=== PATIENT | male | born 1960 | race Caucasian/White ===

== ENCOUNTER 2022-12-21 15:55 | Outpatient (OUT) | payer OTHER, SELFPAY ==
[2022-12-21 16:45] LABS: Estimated Average Glucose 206 mg/dL; Glycohemoglobin A1C 8.8 % (4.5-6.2)
== END 2022-12-21 15:56 | disposition home or self-care (01) ==
PROVIDERS: PCP Internal Medicine; Visit Provider Internal Medicine
DX: E11.65 Type 2 diabetes mellitus with hyperglycemia (principal)
CPT/HCPCS: 36415; 83036

== ENCOUNTER 2023-05-24 06:02 | Outpatient (OUT) | payer OTHER, SELFPAY ==
[2023-05-24 07:38] LABS: Microalbumin Urine Random <1.3 mg/dL (<=30.0)
[2023-05-24 08:34] LABS: Basophils Percent Auto 0.4 % (0.2-2.0); Eosinophils Absolute Auto 0.2 10^3/uL (0.0-0.7); Eosinophils Percent Auto 2.2 % (0.9-7.0); Hematocrit 45.5 % (42.0-54.0); Hemoglobin 15.7 g/dL (14.0-18.0); Immature Granulocytes Abs Auto 0.05 10^3/uL (0.00-0.03); Immature Granulocytes Pct Auto 0.6 % (0.0-0.5); Lymphocytes Absolute Auto 2.2 10^3/uL (1.2-3.8); Lymphocytes Percent Auto 28.6 % (20.5-60.0); Mean Corpuscular HGB Conc 34.5 g/dL (29.9-35.2); Mean Corpuscular Hemoglobin 29.8 pg (25.9-34.0); Mean Corpuscular Volume 86.3 fL (80.0-94.0); Mean Platelet Volume 10.3 fL (9.5-13.5); Monocytes Absolute Auto 0.5 10^3/uL (0.3-0.8); Monocytes Percent Auto 6.5 % (1.7-12.0); Neutrophils Absolute Auto 4.8 10^3/uL (1.4-6.5); Neutrophils Percent Auto 61.7 % (43.0-75.0); Platelet Count 255 10^3/uL (150-450); Red Blood Count 5.27 10^6/uL (4.70-6.10); Red Cell Distribution Width 12.4 % (11.0-15.0); White Blood Count 7.7 10^3/uL (4.0-11.0)
[2023-05-24 09:05] LABS: Alanine Aminotransferase 50 U/L (16-63); Albumin Level 3.8 g/dL (3.4-5.0); Alkaline Phosphatase 92 U/L (46-116); Anion Gap 15.3; Aspartate Amino Transferase 17 U/L (15-37); BUN Creatinine Ratio 12.8; Bilirubin Total 0.7 mg/dL (0.2-1.0); Chloride 103 mmol/L (98-107); Chol HDL Ratio 4.4; Cholesterol 188 mg/dL (<=200); Estimated GFR (African America >60 (>=60); Estimated GFR (Non-African Ame >60 (>=60); Globulin 3.8 g/dL; Glucose 195 mg/dL (74-106); HDL Cholesterol 43 mg/dL (40-60); Potassium 4.3 mmol/L (3.5-5.1); Sodium 142 mmol/L (136-145); Total Protein 7.6 g/dL (6.4-8.2); Triglycerides 162 mg/dL (<=150); VLDL CHOLESTEROL 32.4 mg/dL
[2023-05-24 09:15] LABS: Prostate Specific Antigen Scrn 0.47 ng/mL (<=4.00)
[2023-05-24 10:15] LABS: Estimated Average Glucose 186 mg/dL; Glycohemoglobin A1C 8.1 % (4.5-6.2)
== END 2023-05-24 06:03 | disposition home or self-care (01) ==
LOC: LAB 06:04
PROVIDERS: PCP Internal Medicine; Visit Provider Internal Medicine
DX: Z00.00 Encounter for general adult medical examination without abnormal findings (principal)
CPT/HCPCS: 36415; 80053; 80061; 82043; 83036; 85025; G0103

== ENCOUNTER 2023-06-13 09:21 | Outpatient (OUT) | payer OTHER, SELFPAY ==
--- OUTSIDE RECORDS SUMMARY | 2023-06-13 09:25 | XMS_ITS | CCD ---
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 Name Role Phone CHRISTOPHER PEARCE Primary Care Physician [phone] Lino Ansari Attending Unavailable Elan, Lino Goodson Admitting Unavailable Elan, Lino Goodson Referring Unavailable Elan, Lino Goodson Attending Unavailable Elan, Lino Goodson Admitting Unavailable Ansari, Lino Goodson Referring Unavailable Ansari, Lino Goodson Referring Unavailable Ansari, Lino Goodson Attending Unavailable Ansari, Lino Goodson Admitting Unavailable Ansari, Lino Goodson Attending Unavailable HAFSA, LEYDI Attending Unavailable HAFSA, LEYDI Admitting Unavailable BRYCE, DR SNOWDEN Primary Care Unavailable HAFSA, LEYDI Consulting Unavailable ELIZ, BRIA Consulting Unavailable BRYCE, DR SNOWDEN Primary Care Unavailable BRYCE, DR SNOWDEN Consulting Unavailable BRYCE, DR SNOWDEN Attending Unavailable BRYCE, DR SNOWDEN Admitting Unavailable BRYCE, DR SNOWDEN Primary Care Unavailable BRYCE, DR SNOWDEN Consulting Unavailable BRYCE, DR SNOWDEN Attending Unavailable BRYCE, DR SNOWDEN Admitting Unavailable BRYCE, DR SNOWDEN Primary Care Unavailable BRYCE, DR SNOWDEN Attending Unavailable BRYCE, DR SNOWDEN Consulting Unavailable BRYCE, DR CHRISTOPHER Castellonitting Unavailable ELAN Leyva, DR LINO Goodson Attending Unavaila markel Leyva, DR LINO Goodson Admitting Unavaila ble BRYCE, DR SNOWDEN Primary Care Unavailable DU, DR CASE Acosta Consulting Unavailable ELAN Leyva, DR LINO Goodson Consulting Unavaila ble BRYCE, DR SNOWDEN Primary Care Unavailable BRYCE, DR SNOWDEN Attending Unavailable BRYCE, DR SNOWDEN Consulting Unavailable BRYCE, DR SNOWDEN Admitting Unavailable DU, DR CASE Acosta Consulting Unavailable BRYCE, DR SNOWDEN Primary Care Unavailable BRYCE, DR SNOWDEN Consulting Unavailable BRYCE, DR SNOWDEN Attending Unavailable BRYCE, DR SNOWDEN Admitting Unavailable Bryce, Christopher Unavailable Kacey Vazquez Unavailable Allergies Allergy Classification Reported Allergen(s) Allergy Type Date of Onset Reaction(s) Facility (2 sources) Baclofen; 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: [baclofen] Drug Allergy 11-12-19 17 Unknown [facility] (2 sources) celecoxib; 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: [celecoxib] Drug Allergy 03-29-[address] [facility] (12 sources) Iodine; 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: [iodine] Drug Allergy Unknown (qualifier value) [facility] Comment on above: pt states radioactiv e iodine only, not topical (1 source) Baclofen Drug Allergy 11-13-19 17 [facility] (1 source) celecoxib Drug Allergy 03-30-20 20 [facility] (1 source) Iodine (And Iodine Containting Drugs) Drug allergy (disorder) 03-30-20 20 [facility] (10 sources) Azithromycin Drug Allergy Unknown [employer] [facility] Other (18 sources) Ciprofloxacin Drug Allergy Unknown [facility] Other (10 sources) Sulfamethoxazole / Trimethoprim Drug Allergy Unknown [employer] [facility] Other (1 source) patient allergy list reviewed by nurse or physicia Propensity to adverse reactions 01-03-20 Comment:Done [employer] Other Medications Current Medications Medication Drug Class(es) Dates Sig (Normalized) Sig (Original) ALPRAZolam 0.5 mg oral tablet (20 sources) Benzodiazepine Start: 11-03-2022 take 1 tablet by mouth four times daily as needed for anxiety ALPRAZolam 0.5 MG TAKE 1 TABLET BY MOUTH FOUR TIMES A DAY NEEDED FOR ANXIETY October, Active Start: 07-07-2022 take 1 tablet by rochelle th four times daily as needed for anxiety ALPRAZolam 0.5 MG TAKE 1 TABLET BY MOUTH FOUR TIMES A DAY NEEDED FOR ANXIETY Jun, Active Start: 03-17-2021 take 1 tablet by rochelle th three times daily as needed for anxiety Xanax 0.5 mg Tab 0.5 mg = 1 tab(s), Oral, TID, PRN for anxiety, Refills(s) 0 Start Date: 03/17/21 Status: Ordered doxycycline hyclate 100 mg oral capsule (13 sources) Tetracycline-class Drug Start: 12-05-2022 take 1 capsule by mouth twice daily Doxycycline Hyclate 100 MG 1 capsule Orally twice daily for 7 days May, Active glimepiride 1 mg oral tablet (20 sources) Sulfonylurea Start: 08-23-2022 Glimepiride 1 MG 1 tablet Orally Once a day, taken 30 minutes prior to bkfst for 30 days Aug, Active take 1 tablet by mouth at breakf ast Glimepiride 2 MG TAKE 1 TABLET BY MOUTH 30 MINUTES PRIOR TO BREAKFAST EVERY DAY Active take 1 tablet by mouth at breakf ast Glimepiride 1 MG TAKE 1 TABLET BY MOUTH 30 MINUTES PRIOR TO BREAKFAST Active 3 ml insulin glargine 100 unt/ml pen injector (6 sources) Insulin Analog Start: 03-22-2023 Lantus SoloSta r 100 UNIT/ML 10u Subcutaneous q HS, increase 2u every 3 days for 30 days Mar, Active Basaglar KwikPen 100 UNIT/ML 10u, increase 2u every 3 days until reach 20u Subcutaneous q HS Active ketorolac tromethamine 10 mg oral tablet (1 source) Nonsteroidal Anti-inflammatory Drug, Cyclooxygenase Inhibitor Start: 03-24-2021 take 1 tablet by mouth every four hours as needed for pain ketorolac 10 mg Tab 10 mg = 1 tab(s), Oral, q4hr, PRN for pain, # 60 tab(s), Refills(s) 0, Pain Start Date: 03/24/21 Status: Ordered metFORMIN hydrochloride 1000 mg oral tablet (20 sources) Biguanide Start: 03-17-2021 take 1 tablet by mouth once daily metformin 1000 mg oral tablet 1,000 mg = 1 tab(s), Oral, Daily, Refills(s) 0, High blood sugar Start Date: 03/17/21 Status: Ordered Multi Vitamin+ (1 source) Start: 03-17-2021 take 1 tablet by mouth once daily Multi Vitamin+ 1 tab, Oral, Daily, Refill(s) 0, Prophylaxis Start Date: 03/17/21 Status: Ordered Completed/Discontinued Medications Medication Drug Class(es) Dates Sig (Normalized) Sig (Original) amoxicillin 875 mg / clavulanate 125 mg oral tablet (12 sources) Penicillin-class Antibacterial Start: 11-26-2022 take 1 tablet by mouth every twelve hours Amoxicillin-Pot Clavulanate 875-125 MG 1 tablet Orally every 12 hrs for 10 days Nov, Not-Taking/PRN dextromethorphan hydrobromide 15 mg / guaiFENesin 400 mg / pseudoephedrine hydrochloride 60 mg oral tablet (12 sources) alpha-Adrenergic Agonist, Uncompetitive N-ixgamv-N-aspartate Receptor Antagonist, Sigma-1 Agonist Start: 11-26-2022 take 1 tablet by mouth every six hours as needed for cough Capmist DM 60-15-400 MG 1 tablet Orally q6hrs prn congestion/cough for 7 days Nov, Not-Taking/PRN pioglitazone 30 mg oral tablet (20 sources) Peroxisome Proliferator Receptor alpha Agonist, Peroxisome Proliferator Receptor gamma Agonist, Thiazolidinedione Start: 08-08-2022 take 1 tablet by mouth every twenty-four hours Pioglitazone HCl 30 MG 1 tablet Orally Once a day for 30 days Jul, Not-Taking/PRN Start: 03-24-2021 take 1 tablet by rochelle th once daily pioglitazone 30 mg Tab 30 mg = 1 tab(s), Oral, Daily, High blood sugar Start Date: 03/24/21 Status: Ordered Problems Active Problems Problem Classification Problem Date Documented Date Episodic/Chronic Abdominal pain (20 sources) Epigastric pain; 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: [Left lower quadrant pain] Onset: 11-22-2016 Resolved: 03-09-2021 Episodic Acute bronchitis (4 sources) Acute bronchitis due to other specified organisms; 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: [Acute bronchitis] Onset: 06-10-2014 Episodic Anxiety disorders (20 sources) Anxiety; 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: [Anxiety disorder, unspecified] Onset: 01-27-2022 03-24-2021 Chronic Calculus of urinary tract (6 sources) Kidney stone; 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: [Calculus of kidney] Onset: 11-09-2021 Episodic Cardiac dysrhythmias (20 sources) Ventricular premature depolarization; 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: [Other specified cardiac arrhythmias] Onset: 08-19-2022 Chronic Chronic obstructive pulmonary disease and bronchiectasis (1 source) Simple chronic bronchitis; 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: [Simple chronic bronchitis] Chronic Chronic obstructive pulmonary disease and bronchiectasis (20 sources) Bronchitis; 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: [Bronchitis] Episodic Deficiency and other anemia (5 sources) Anemia, unspecified; 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: [ANEMIA UNSPECIFIED] Onset: 08-17-2022 Episodic Diabetes mellitus with complications (20 sources) Type 2 diabetes mellitus with hyperglycemia; 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: [Type 2 diabetes mellitus] Onset: 08-31-2021 Chronic Diabetes mellitus without complication (13 sources) Type 2 diabetes mellitus without complication; 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: [Type 2 diabetes mellitus without complications] Chronic Diseases of mouth; excluding dental (1 source) Glossitis; 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: [Glossitis] Episodic Esophageal disorders (20 sources) Gastro-esophageal reflux disease with esophagitis; 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: [Gastroesophageal reflux disease with esophagitis without hemorrhage] Chronic Hyperplasia of prostate (2 sources) Lower urinary tract symptoms due to benign prostatic hypertrophy; 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: [Benign prostatic hyperplasia with lower urinary tract symptoms] Onset: 07-25-2016 Chronic Miscellaneous mental health disorders (1 source) Psychosexual dysfunction associated with inhibited sexual excitement; 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: [Psychosexual dysfunction with inhibited sexual excitement] Onset: 04-13-2018 Chronic Mood disorders (1 source) Depression; 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: [Depression, unspecified] Chronic Osteoarthritis (1 source) Localized, primary osteoarthritis of the pelvic region and thigh; 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: [Unilateral primary osteoarthritis, left hip] Chronic Other aftercare (6 sources) Long-term current use of insulin; 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: [health care facilities inspector (current) use of insulin] Episodic Other aftercare (1 source) longterm (current) use of insulin Episodic Other connective tissue disease (1 source) Cramp and spasm Episodic Other connective tissue disease (1 source) Plantar fascial fibromatosis; 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: [Plantar fascial fibromatosis] Episodic Other ear and sense organ disorders (1 source) Unilateral sensory hearing loss; 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: [Sensorineural hearing loss, unilateral] Onset: 09-15-2014 Chronic Other hereditary and degenerative nervous system conditions (1 source) Idiopathic peripheral autonomic neuropathy; 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: [Idiopathic peripheral autonomic neuropathy, unspecified] Onset: 10-15-2013 Chronic Other lower respiratory disease (1 source) Shortness of breath Episodic Other male genital disorders (1 source) Impotence of organic origin; 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: [Erectile dysfunction due to arterial insufficiency] Chronic Other nervous system disorders (20 sources) Chronic pain; 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: [Other chronic pain] Chronic Other nutritional; endocrine; and metabolic disorders (1 source) Obesity; 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: [Obesity, unspecified] Chronic Other nutritional; endocrine; and metabolic disorders (1 source) Overweight; 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: [Overweight] Episodic Other nutritional; endocrine; and metabolic disorders (1 source) Overweight Episodic Other screening for suspected conditions (not mental disorders or infectious disease) (6 sources) Other specified abnormal findings of blood chemistry; 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: [Encounter for screening for malignant neoplasm of prostate] Onset: 12-22-2021 Episodic Residual codes; unclassified (1 source) Insomnia; 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: [Insomnia, unspecified] Episodic Residual codes; unclassified (1 source) Tobacco user; 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: [Nondependent tobacco use disorder] Episodic Spondylosis; intervertebral disc disorders; other back problems (20 sources) Spondylosis without myelopathy or radiculopathy, lumbar region; 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: [Solitary sacroiliitis] Onset: 04-24-2017 Chronic Substance-related disorders (1 source) Tobacco user; 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: [Nicotine dependence, cigarettes, in remission] Chronic Viral infection (20 sources) Post-viral disorder; 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: [Post-viral cough syndrome] Episodic Past or Other Problems Problem Classification Problem Date Documented Da te Episodic/Chronic Bacterial infection; unspecified site (1 source) Bacterial infectious disease; 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: [Bacterial infection, unspecified, in conditions classified elsewhere and of unspecified site] Onset: 07-18-2017 Episodic Conditions associated with dizziness or vertigo (1 source) Dizziness and giddiness; 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: [Dizziness and giddiness] Onset: 04-10-2014 Episodic Deficiency and other anemia (1 source) Pernicious anemia; 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: [Vitamin B12 deficiency anemia due to intrinsic factor deficiency] Onset: 10-18-2013 Episodic E Codes: Adverse effects of medical drugs (2 sources) Adverse effect of insulin and oral hypoglycemic [antidiabetic] drugs, initial encounter; 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: [Penicillin adverse reaction] Onset: 06-19-2017 Episodic Esophageal disorders (5 sources) Esophageal disorders; 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: [Gastro-esophageal reflux disease with esophagitis, without bleeding] Gastritis and duodenitis (1 source) Gastritis; 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: [Other specified gastritis without mention of hemorrhage] Onset: 06-19-2017 Episodic Genitourinary symptoms and ill-defined conditions (1 source) Finding of frequency of urination; 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: [Frequency of micturition] Onset: 01-02-2017 Episodic Nonspecific chest pain (2 sources) Chest pain, unspecified; 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: [Chest pain] Onset: 06-19-2017 Episodic Other aftercare (1 source) Other correction (current) drug therapy; 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: [OTH 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 CURRENT DRUG THERAPY] Onset: 01-27-2022 Episodic Other aftercare (1 source) longterm (current) use of oral hypoglycemic drugs; 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: [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 USE ORAL HYPOGLYCEMIC DX] Onset: 01-27-2022 Episodic Other connective tissue disease (1 source) Lateral epicondylitis; 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: [Lateral epicondylitis, left elbow] Onset: 04-20-2017 Episodic Other connective tissue disease (1 source) Myalgia/myositis - multiple; 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: [Unspecified myalgia and myositis] Onset: 10-15-2013 Episodic Other ear and sense organ disorders (1 source) Tinnitus; 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: [Tinnitus, unspecified ear] Onset: 02-06-2013 Episodic Other eye disorders (1 source) Conjunctival hemorrhage; 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: [Conjunctival hemorrhage] Onset: 01-08-2014 Episodic Other gastrointestinal disorders (1 source) Toxic gastroenteritis; 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: [Toxic gastroenteritis and colitis] Onset: 12-14-2017 Episodic Other liver diseases (1 source) Elevated levels of transaminase & lactic acid dehydrogenase; 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: [Nonspecific elevation of levels of transaminase or lactic acid dehydrogenase (LDH)] Onset: 12-25-2016 Episodic Other lower respiratory disease (1 source) Cough; 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: [Cough, unspecified] Onset: 06-10-2014 Episodic Other non-traumatic joint disorders (1 source) Arthralgia of the ankle and/or foot; 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: [Pain in unspecified ankle and joints of unspecified foot] Onset: 01-19-2015 Episodic Other nutritional; endocrine; and metabolic disorders (1 source) Excessive thirst; 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: [Polydipsia] Onset: 07-08-2015 Episodic Other nutritional; endocrine; and metabolic disorders (3 sources) Body mass index 25-29 - overweight; 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: [Body mass index 29.0-29.9, adult] Onset: 07-08-2015 Episodic Other skin disorders (1 source) Generalized hyperhidrosis; 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: [Generalized hyperhidrosis] Onset: 06-19-2017 Episodic Other upper respiratory infections (3 sources) Acute maxillary sinusitis, unspecified; 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: [Acute maxillary sinusitis] Onset: 06-10-2014 Episodic Otitis media and related conditions (1 source) Eustachian tube disorder; 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: [Other specified disorders of Eustachian tube, unspecified ear] Onset: 02-06-2013 Episodic Residual codes; unclassified (1 source) Sleep disorder; 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: [Persistent disorder of initiating or maintaining sleep] Onset: 02-06-2013 Episodic Screening and history of mental health and substance abuse codes (2 sources) Personal history of nicotine dependence; 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: [History of tobacco use] Onset: 04-20-2017 Episodic Spondylosis; intervertebral disc disorders; other back problems (1 source) Low back pain; 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: [Low back pain, unspecified] Onset: 04-20-2017 Episodic Sprains and strains (1 source) Strain of adductor muscle, fascia and tendon of left thigh, initial encounter; 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: [Strain of adductor muscle, fascia and tendon of left thigh, initial encounter] Resolved: 03-09-2021 Episodic Unclassified (14 sources) Nonspecific abnormal findings on radiological and other examination of abdo; 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: [Nonspecific abnormal findings on radiological and other examination of abdo] Viral infection (1 source) Disease caused by 2019-nCoV; 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: [COVID-19] Resolved: 03-09-2021 Results Test Name Value Interpretation Reference Range Facility CBC AUTO DIFFon 08-17-2022 BASO # 0.0 103/ul Normal 0.0-0.1 [facility] Comment on above: Performed By: #### C MP, TSH #### [facility] [address] [place] [address] Dr. Cipriano Simon Basophils/100 WBC (Bld) 0.8 % Normal 0.2-2.0 [facility] Comment on above: Performed By: #### C MP, TSH #### [facility] [address] [place] [address] Dr. Cipriano Simon EO # 0.1 103/ul Normal 0.0-0.7 [facility] Comment on above: Performed By: #### C MP, TSH #### [facility] [address] [place] [address] Dr. Cipriano Simon Eosinophils/100 WBC (Bld) 1.8 % Normal 0.9-7.0 [facility] Comment on above: Performed By: #### C MP, TSH #### [facility] [address] [place] [address] Dr. Cipriano Simon Erythrocyte distribution width (RBC) [Ratio] 12.8 % Normal 11.0-15.0 [facility] Comment on above: Performed By: #### C MP, TSH #### [facility] [address] [place] [address] Dr. Cipriano Simon Hematocrit (Bld) [Volume fraction] 46.3 % Normal 42.0-54.0 [facility] Comment on above: Performed By: #### C MP, TSH #### [facility] [address] [place] [address] Dr. Cipriano Simon Hemoglobin (Bld) [Mass/Vol] 15.8 g/dL Normal 14.0-18.0 [facility] Comment on above: Performed By: #### C MP, TSH #### [facility] [address] [place] [address] Dr. Cipriano Simon IG # 0.05 10e3/ul Critically high 0.00-0.03 [facility] Comment on above: Performed By: #### C MP, TSH #### [facility] [address] [place] [address] Dr. Cipriano Simon IG % 1.0 % Critically high 0.0-0.5 [facility] Comment on above: Performed By: #### C MP, TSH #### [facility] [address] [place] [address] Dr. Cipriano Simon LYMPH # 2.6 103/ul Normal 1.2-3.8 [facility] Comment on above: Performed By: #### C MP, TSH #### [facility] [address] [place] [address] Dr. Cipriano Simon Lymphocytes/100 WBC (Bld) 52.7 % Normal 20.5-60.0 [facility] Comment on above: Performed By: #### C MP, TSH #### [facility] [address] [place] [address] Dr. Cipriano Simon MANUAL DIFF REQ NO Normal [facility] Comment on above: Performed By: #### C MP, TSH #### [facility] [address] [place] [address] Dr. Cipriano Simon MCH (RBC) [Entitic mass] 29.0 pg Normal 25.9-34.0 [facility] Comment on above: Performed By: #### C MP, TSH #### [facility] [address] [place] [address] Dr. Cipriano Simon MCHC (RBC) [Mass/Vol] 34.1 g/dL Normal 29.9-35.2 [facility] Comment on above: Performed By: #### C MP, TSH #### [facility] [address] [place] [address] Dr. Cipriano Simon MCV (RBC) [Entitic vol] 85.0 fL Normal 80.0-94.0 [facility] Comment on above: Performed By: #### C MP, TSH #### [facility] [address] [place] [address] Dr. Cipriano Simon MONO # 0.4 103/ul Normal 0.3-0.8 [facility] Comment on above: Performed By: #### C MP, TSH #### [facility] [address] [place] [address] Dr. Cipriano Simon Monocytes/100 WBC (Bld) 7.2 % Normal 1.7-12.0 [facility] Comment on above: Performed By: #### C MP, TSH #### [facility] [address] [place] [address] Dr. Cipriano Simon NEUT # 1.8 103/ul Normal 1.4-6.5 [facility] Comment on above: Performed By: #### C MP, TSH #### [facility] [address] [place] [address] Dr. Cipriano Simon Neutrophils/100 WBC (Bld) 36.5 % Critically low 43.0-75.0 [facility] Comment on above: Performed By: #### C MP, TSH #### [facility] [address] [address] [address] Cipriano Simon Platelet mean volume (Bld) [Entitic vol] 10.7 fL Normal 9.5-13.5 [facility] Comment on above: Performed By: #### C MP, TSH #### [facility] [address] [address] [address] Cipriano Simon PLT 214 103/ul Normal 150-450 [facility] Comment on above: Performed By: #### C MP, TSH #### [facility] [address] [place] [address] Dr. Cipriano Simon RBC 5.45 106/ul Normal 4.70-6.10 [facility] Comment on above: Performed By: #### C MP, TSH #### [facility] [address] [place] [address] Dr. Cipriano Simon WBC 5.0 103/ul Normal 4.0-11.0 [facility] Comment on above: Performed By: #### C MP, TSH #### [facility] [address] [place] [address] Dr. Cipriano Simon GLYCOHEMOGLOBIN A1Con 2022 ADA RECOMMENDATION SEE BELOW Normal [facility] Comment on above: Result Comment: ADA RECOMMENDED LIMIT 4.0 - 6.0 ADA THERAPEUTIC TARGET < 7.0 ACTION SUGGESTED > 7.0 Performed By: #### C MP, TSH #### [facility] [address] [place] [address] Dr. Cipriano Simon Glucose [Mass/Vol] 209 mg/dL Normal [facility] Comment on above: Performed By: #### C MP, TSH #### [facility] [address] [place] [address] Dr. Cipriano Simon HbA1c (Bld) [Mass fraction] 8.9 % Critically high 4.5-6.2 [facility] Comment on above: Performed By: #### C MP, TSH #### [facility] [address] [place] [address] Dr. Cipriano Simon MICROALBUMIN, RAND URon 03-0 mALB 1.8 mg/L Normal <=30.0 [facility] Comment on above: Performed By: #### M ALBR #### [facility] [address] [place] [address] Dr. Cipriano Simon PROF 14(COMP METB)on 023 Albumin [Mass/Vol] 4.1 g/dL Normal 3.4-5.0 [facility] Comment on above: Performed By: #### C MP, TSH #### [facility] [address] [place] [address] Dr. Cipriano Simon Albumin/Globulin [Mass ratio] 1.2 {ratio} Normal [facility] Comment on above: Performed By: #### C MP, TSH #### [facility] [address] [place] [address] Dr. Cipriano Simon ALP [Catalytic activity/Vol] 106 U/L Normal 46-116 [facility] Comment on above: Performed By: #### C MP, TSH #### [facility] [address] [place] [address] Dr. Cipriano Simon ALT [Catalytic activity/Vol] 42 U/L Normal 16-63 [facility] Comment on above: Performed By: #### C MP, TSH #### [facility] [address] [place] [address] Dr. Cipriano Simon Anion gap [Moles/Vol] 12.7 mmol/L Normal [facility] Comment on above: Performed By: #### C MP, TSH #### [facility] [address] [place] [address] Dr. Cipriano Simon AST [Catalytic activity/Vol] 15 U/L Normal 15-37 [facility] Comment on above: Performed By: #### C MP, TSH #### [facility] [address] [place] [address] Dr. Cipriano Simon Bilirubin [Mass/Vol] 0.5 mg/dL Normal 0.2-1.0 [facility] Comment on above: Performed By: #### C MP, TSH #### [facility] [address] [place] [address] Dr. Cipriano Simon Calcium [Mass/Vol] 8.9 mg/dL Normal 8.5-10.1 [facility] Comment on above: Performed By: #### C MP, TSH #### [facility] [address] [place] [address] Dr. Cipriano Simon Chloride [Moles/Vol] 101 mmol/L Normal 98-107 [facility] Comment on above: Performed By: #### C MP, TSH #### [facility] [address] [place] [address] Dr. Cipriano Simon CO2 [Moles/Vol] 29.1 mmol/L Normal 21.0-32.0 [facility] Comment on above: Performed By: #### C MP, TSH #### [facility] [address] [place] [address] Dr. Cipriano Simon Creatinine [Mass/Vol] 0.95 mg/dL Normal 0.70-1.30 [facility] Comment on above: Performed By: #### C MP, TSH #### [facility] [address] [place] [address] Dr. Cipriano Simon EGFR-AF RUSSIAN >60 Normal >=60 [facility] Comment on above: Performed By: #### C MP, TSH #### [facility] [address] [place] [address] Dr. Cipriano Simon EGFR-NON AF RUSSIAN >60 Normal >=60 [facility] Comment on above: Performed By: #### C MP, TSH #### [facility] [address] [place] [address] Dr. Cipriano Simon Globulin (S) [Mass/Vol] 3.5 g/dL Normal [facility] Comment on above: Performed By: #### C MP, TSH #### [facility] [address] [place] [address] Dr. Cipriano Simon Glucose [Mass/Vol] 256 mg/dL Critically high 74-106 [facility] Comment on above: Performed By: #### C MP, TSH #### [facility] [address] [place] [address] Dr. Cipriano Simon Potassium [Moles/Vol] 3.8 mmol/L Normal 3.5-5.1 [facility] Comment on above: Performed By: #### C MP, TSH #### [facility] [address] [address] [address] Cipriano Simon Protein [Mass/Vol] 7.6 g/dL Normal 6.4-8.2 [facility] Comment on above: Performed By: #### C MP, TSH #### [facility] [address] [place] [address] Dr. Cipriano Simon Sodium [Moles/Vol] 139 mmol/L Normal 136-145 [facility] Comment on above: Performed By: #### C MP, TSH #### [facility] [address] [place] [address] Dr. Cipriano Simon Urea nitrogen [Mass/Vol] 14.0 mg/dL Normal 7.0-18.0 [facility] Comment on above: Performed By: #### C MP, TSH #### [facility] [address] [place] [address] Dr. Cipriano Simon Urea nitrogen/Creatinine [Mass ratio] 14.7 mg/mg Normal [facility] Comment on above: Performed By: #### C MP, TSH #### [facility] [address] [place] [address] Dr. Cipriano Simon TSHon 08-17-2022 TSH 1.540 uIU/mL Normal 0.358-3.740 [facility] Comment on above: Performed By: #### C MP, TSH #### [facility] [address] [place] [address] Dr. Cipriano Simon RAD - MISCon 03-16-2022 RAD - MISC [id number]:[id number] Normal [facility] TESTOSTERONE, TOTALon 2021 Testosterone [Mass/Vol] 906 ng/dL Normal 264-916 [facility] Comment on above: Result Comment: Adul t male reference interval is based on a population of healthy nonobese males (BMI <30) between 19 and 39 years old. Iban et.al. JCEM 2017,102;8834-6593. PMID: [id number]. Performed By: #### C MP, TSH #### [facility] [address] [address] [address] Cipriano Simon GLYCOHEMOGLOBIN A1Con 2021 ADA RECOMMENDATION SEE BELOW Normal [facility] Comment on above: Result Comment: ADA RECOMMENDED LIMIT 4.0 - 6.0 ADA THERAPEUTIC TARGET < 7.0 ACTION SUGGESTED > 7.0 Performed By: #### A 1C #### [facility] [address] [address] [address] Cipriano Simon Glucose [Mass/Vol] 171 mg/dL Normal [facility] Comment on above: Performed By: #### A 1C #### [facility] [address] [address] [address] Cipriano Simon HbA1c (Bld) [Mass fraction] 7.6 % Critically high 4.5-6.2 [facility] Comment on above: Performed By: #### A 1C #### [facility] [address] [address] [address] Cipriano Simon XR KUB 1 VIEWon 03-15-2022 XR KUB 1 VIEW EXAMINATION: XR KUB 1 VIEW HISTORY: Kidney stone ; acute low back pain COMPARISON: XR abdomen with PA chest 01/25/2022 FINDINGS: KIDNEY/URETER - RIGHT: No visible renal or ureteral calcifications. KIDNEY/URETER - LEFT: Tiny calcification overlying left kidney. PELVIS: No visible ureteral stones. Stable left pelvic calcifications favoring phleboliths. BOWEL: Several oval hyperdensities likely representing medication tablets. No abnormal bowel dilation. Moderate stool burden. BONES: No acute abnormality. Left hip replacement. OTHER: Negative. No abnormal gaseous collections. IMPRESSION: 1. Stable left nephrolithiasis. 2. No acute findings to account for patient's symptoms. Electronically authenticated by: CASE SANDY Date: 2022-03-15 08:36 Normal [facility] XR LSPINE 2_3 VIEWSon 2021 XR LSPINE 2_3 VIEWS EXAMINATION: XR LSPI NE 2_3 VIEWS HISTORY: Spondylosis without myelopathy ; acute low back pain COMPARISON: XR lumbar spine 06/29/2019 FINDINGS: BONES: Mild degenerative facet arthropathy L4-5, L5-S1. No fracture, spondylolisthesis, bone lesion. DISC SPACES: Mild narrowing L5-S1. PARASPINOUS: Negative. No paraspinous abnormality is seen. OTHER: Several oval hyperdensities within the bowel, likely representing medication tablets. IMPRESSION: 1. Suspect mild degenerative disc disease and facet arthropathy of the lower lumbar spine; not significantly changed.. Electronically authenticated by: CASE SANDY Date: 2022-03-15 08:44 Normal [facility] AMYLASEon 01-25-2022 Amylase [Catalytic activity/Vol] 55 U/L Normal 25-115 [facility] Comment on above: Performed By: #### C MP, LIPA, CMADM, RISSA #### [facility] [address] [address] [address] Cipriano Simon CARDIAC MELINDA ADMITon 022 CK [Catalytic activity/Vol] 76 U/L Normal 39-308 [facility] Comment on above: Performed By: #### C MP, LIPA, CMADM, RISSA #### [facility] [address] [address] [address] Cipriano Simon CK.MB [Mass/Vol] ng/mL Normal <=3.60 [facility] Comment on above: Performed By: #### C MP, LIPA, CMADM, RISSA #### [facility] [address] [place] [address] Dr. Cipriano Simon HSTROP 4.8 pg/mL Normal 4.0-76.1 [facility] Comment on above: Result Comment: CUT- OFF POINTS HAVE BEEN ESTABLISHED BASED ON THE FOURTH UNIVERSAL DEFINITIONS OF MYOCARDIAL INFARCTION. THE UPPER REFERENCE LIMIT (URL) OF TROPONIN, DEFINED THE 99TH PERCENTILE OF cTnI DISTRIBUTION IN A REFERENCE POPULATION, HAS BEEN CONFIRMED THE DECISION THRESHOLD FOR HI DIAGNOSIS. Performed By: #### C MP, LIPA, CMADM, RISSA #### [facility] [address] [place] [address] Dr. Cipriano Simon GEOVANNA 33 ng/mL Normal 16-96 [facility] Comment on above: Performed By: #### C MP, LIPA, CMADM, RISSA #### [facility] [address] [address] [address] Cipriano Simon CBC AUTO DIFFon 01-25-2022 BASO # 0.0 103/ul Normal 0.0-0.1 [facility] Comment on above: Performed By: #### A 1C #### [facility] [address] [place] [address] Dr. Cipriano Simon Basophils/100 WBC (Bld) 0.3 % Normal 0.2-2.0 [facility] Comment on above: Performed By: #### A 1C #### [facility] [address] [place] [address] Dr. Cipriano Simon EO # 0.1 103/ul Normal 0.0-0.7 [facility] Comment on above: Performed By: #### A 1C #### [facility] [address] [place] [address] Dr. Cipriano Simon Eosinophils/100 WBC (Bld) 1.7 % Normal 0.9-7.0 [facility] Comment on above: Performed By: #### A 1C #### [facility] [address] [place] [address] Dr. Cipriano Simon Erythrocyte distribution width (RBC) [Ratio] 12.7 % Normal 11.0-15.0 [facility] Comment on above: Performed By: #### A 1C #### [facility] [address] [place] [address] Dr. Cipriano Simon Hematocrit (Bld) [Volume fraction] 43.3 % Normal 42.0-54.0 [facility] Comment on above: Performed By: #### A 1C #### [facility] [address] [place] [address] Dr. Cipriano Simon Hemoglobin (Bld) [Mass/Vol] 15.1 g/dL Normal 14.0-18.0 [facility] Comment on above: Performed By: #### A 1C #### [facility] [address] [place] [address] Dr. Cipriano Simon IG # 0.04 10e3/ul Critically high 0.00-0.03 [facility] Comment on above: Performed By: #### A 1C #### [facility] [address] [place] [address] Dr. Cipriano Simon IG % 0.6 % Critically high 0.0-0.5 [facility] Comment on above: Performed By: #### A 1C #### [facility] [address] [place] [address] Dr. Cipriano Simon LYMPH # 2.9 103/ul Normal 1.2-3.8 [facility] Comment on above: Performed By: #### A 1C #### [facility] [address] [place] [address] Dr. Cipriano Simon Lymphocytes/100 WBC (Bld) 42.1 % Normal 20.5-60.0 [facility] Comment on above: Performed By: #### A 1C #### [facility] [address] [place] [address] Dr. Cipriano Simon MANUAL DIFF REQ NO Normal [facility] Comment on above: Performed By: #### A 1C #### [facility] [address] [place] [address] Dr. Cipriano Simon MCH (RBC) [Entitic mass] 29.5 pg Normal 25.9-34.0 [facility] Comment on above: Performed By: #### A 1C #### [facility] [address] [place] [address] Dr. Cipriano Simon MCHC (RBC) [Mass/Vol] 34.9 g/dL Normal 29.9-35.2 [facility] Comment on above: Performed By: #### A 1C #### [facility] [address] [place] [address] Dr. Cipriano Simon MCV (RBC) [Entitic vol] 84.7 fL Normal 80.0-94.0 [facility] Comment on above: Performed By: #### A 1C #### [facility] [address] [place] [address] Dr. Cipriano Simon MONO # 0.4 103/ul Normal 0.3-0.8 [facility] Comment on above: Performed By: #### A 1C #### [facility] [address] [place] [address] Dr. Cipriano Simon Monocytes/100 WBC (Bld) 5.5 % Normal 1.7-12.0 [facility] Comment on above: Performed By: #### A 1C #### [facility] [address] [place] [address] Dr. Cipriano Simon NEUT # 3.4 103/ul Normal 1.4-6.5 [facility] Comment on above: Performed By: #### A 1C #### [facility] [address] [place] [address] Dr. Cipriano Simon Neutrophils/100 WBC (Bld) 49.8 % Normal 43.0-75.0 [facility] Comment on above: Performed By: #### A 1C #### [facility] [address] [place] [address] Dr. Cipriano Simon Platelet mean volume (Bld) [Entitic vol] 9.4 fL Critically low 9.5-13.5 [facility] Comment on above: Performed By: #### A 1C #### [facility] [address] [place] [address] Dr. Cipriano Simon PLT 238 103/ul Normal 150-450 [facility] Comment on above: Performed By: #### A 1C #### [facility] [address] [place] [address] Dr. Cipriano Simon RBC 5.11 106/ul Normal 4.70-6.10 [facility] Comment on above: Performed By: #### A 1C #### [facility] [address] [place] [address] Dr. Cipriano Simon WBC 6.9 103/ul Normal 4.0-11.0 [facility] Comment on above: Performed By: #### A 1C #### [facility] [address] [place] [address] Dr. Cipriano Simon LACTATE/LACTIC ACIDon 2021 Lactate [Moles/Vol] 1.2 mmol/L Normal 0.4-1.9 [facility] Comment on above: Performed By: #### A 1C #### [facility] [address] [place] [address] Dr. Cipriano Simon LIPASEon 01-25-2022 Lipase [Catalytic activity/Vol] 89.0 U/L Normal 73.0-393.0 [facility] Comment on above: Performed By: #### C MP, LIPA, CMADM, RISSA #### [facility] [address] [place] [address] Dr. Cipriano Simon PROF 14(COMP METB)on 022 Albumin [Mass/Vol] 3.8 g/dL Normal 3.4-5.0 [facility] Comment on above: Performed By: #### C MP, LIPA, CMADM, RISSA #### [facility] [address] [place] [address] Dr. Cipriano Simon Albumin/Globulin [Mass ratio] 1.1 {ratio} Normal [facility] Comment on above: Performed By: #### C MP, LIPA, CMADM, RISSA #### [facility] [address] [place] [address] Dr. Cipriano Simon ALP [Catalytic activity/Vol] 111 U/L Normal 46-116 [facility] Comment on above: Performed By: #### C MP, LIPA, CMADM, RISSA #### [facility] [address] [place] [address] Dr. Cipriano Simon ALT [Catalytic activity/Vol] 41 U/L Normal 16-63 [facility] Comment on above: Performed By: #### C MP, LIPA, CMADM, RISSA #### [facility] [address] [place] [address] Dr. Cipriano Simon Anion gap [Moles/Vol] 11.5 mmol/L Normal [facility] Comment on above: Performed By: #### C MP, LIPA, CMADM, RISSA #### [facility] [address] [place] [address] Dr. Cipriano Simon AST [Catalytic activity/Vol] 16 U/L Normal 15-37 [facility] Comment on above: Performed By: #### C MP, LIPA, CMADM, RISSA #### [facility] [address] [place] [address] Dr. Cipriano Simon Bilirubin [Mass/Vol] 0.5 mg/dL Normal 0.2-1.0 [facility] Comment on above: Performed By: #### C MP, LIPA, CMADM, RISSA #### [facility] [address] [place] [address] Dr. Cipriano Simon Calcium [Mass/Vol] 9.0 mg/dL Normal 8.5-10.1 [facility] Comment on above: Performed By: #### C MP, LIPA, CMADM, IRSSA #### [facility] [address] [place] [address] Dr. Cipriano Simon Chloride [Moles/Vol] 101 mmol/L Normal 98-107 [facility] Comment on above: Performed By: #### C MP, LIPA, CMADM, RISSA #### [facility] [address] [place] [address] Dr. Cipriano Simon CO2 [Moles/Vol] 26.1 mmol/L Normal 21.0-32.0 [facility] Comment on above: Performed By: #### C MP, LIPA, CMADM, RISSA #### [facility] [address] [place] [address] Dr. Cipriano Simon Creatinine [Mass/Vol] 0.84 mg/dL Normal 0.70-1.30 [facility] Comment on above: Performed By: #### C MP, LIPA, CMADM, RISSA #### [facility] [address] [place] [address] Dr. Cipriano Simon EGFR-AF RUSSIAN >60 Normal >=60 [facility] Comment on above: Performed By: #### C MP, LIPA, CMADM, RISSA #### [facility] [address] [place] [address] Dr. Cipriano Simon EGFR-NON AF RUSSIAN >60 Normal >=60 [facility] Comment on above: Performed By: #### C MP, LIPA, CMADM, RISSA #### [facility] [address] [place] [address] Dr. Cipriano Simon Globulin (S) [Mass/Vol] 3.4 g/dL Normal [facility] Comment on above: Performed By: #### C MP, LIPA, CMADM, RISSA #### [facility] [address] [address] [address] Cipriano Simon Glucose [Mass/Vol] 245 mg/dL Critically high 74-106 [facility] Comment on above: Performed By: #### C MP, LIPA, CMADM, RISSA #### [facility] [address] [address] [address] Cipriano Simon Potassium [Moles/Vol] 3.6 mmol/L Normal 3.5-5.1 [facility] Comment on above: Performed By: #### C MP, LIPA, CMADM, RISSA #### [facility] [address] [address] [address] Cipriano Simon Protein [Mass/Vol] 7.2 g/dL Normal 6.4-8.2 [facility] Comment on above: Performed By: #### C MP, LIPA, CMADM, RISSA #### [facility] [address] [address] [address] Cipriano Simon Sodium [Moles/Vol] 135 mmol/L Critically low 136-145 [facility] Comment on above: Performed By: #### C MP, LIPA, CMADM, RISSA #### [facility] [address] [address] [address] Cipriano Simon Urea nitrogen [Mass/Vol] 13.0 mg/dL Normal 7.0-18.0 [facility] Comment on above: Performed By: #### C MP, LIPA, CMADM, RISSA #### [facility] [address] [place] [address] Dr. Cipriano Simon Urea nitrogen/Creatinine [Mass ratio] 15.5 mg/mg Normal [facility] Comment on above: Performed By: #### C MP, LIPA, CMADM, RISSA #### [facility] [address] [place] [address] Dr. Cipriano Simon XR ABD FLAT UP_PA Venkat 01-25 XR ABD FLAT UP_PA CH EXAM: XR ABD FLAT UP_PA CH COMPARISON: CT abdomen pelvis 03/15/2021 HISTORY: CHEST PAIN, UNSPECIFIED FINDINGS: Chest: The lungs are well expanded. No pneumothorax, pleural effusion or consolidation. Cardiomediastinal silhouette is normal in size and position. Abdomen/pelvis: No subdiaphragmatic free air, pneumatosis or portal venous gas. No dilated loops of bowel. Moderate to large retained colonic stool burden. Nonobstructing collecting system calcification overlying the inferior pole of the left kidney is similar in position as compared to 03/15/2021. MSK: No acute bony abnormality. Status post left total hip arthroplasty. Peripheral soft tissues are unremarkable. IMPRESSION: 1. No acute abdominopelvic findings. 2. Nonobstructing collecting system calcification in the left kidney unchanged from prior exam. Electronically authenticated by: BRIA WELLINGTON Date: 2022-01-25 02:00 Normal [facility] CBC AUTO DIFFon 12-21-2021 BASO # 0.0 103/ul Normal 0.0-0.1 [facility] Comment on above: Performed By: #### C MANUEL, TSH #### [facility] [address] [place] [address] Dr. Cipriano Simon Basophils/100 WBC (Bld) 0.5 % Normal 0.2-2.0 [facility] Comment on above: Performed By: #### C MANUEL, TSH #### [facility] [address] [place] [address] Dr. Cipriano Simon EO # 0.2 103/ul Normal 0.0-0.7 [facility] Comment on above: Performed By: #### C MANUEL, TSH #### [facility] [address] [address] [address] Cipriano Simon Eosinophils/100 WBC (Bld) 2.9 % Normal 0.9-7.0 [facility] Comment on above: Performed By: #### C MANUEL, TSH #### [facility] [address] [place] [address] Dr. Cipriano Simon Erythrocyte distribution width (RBC) [Ratio] 13.0 % Normal 11.0-15.0 [facility] Comment on above: Performed By: #### C MANUEL, TSH #### [facility] [address] [place] [address] Dr. Cipriano Simon Hematocrit (Bld) [Volume fraction] 44.9 % Normal 42.0-54.0 [facility] Comment on above: Performed By: #### C MP, TSH #### [facility] [address] [place] [address] Dr. Cipriano Simon Hemoglobin (Bld) [Mass/Vol] 15.7 g/dL Normal 14.0-18.0 [facility] Comment on above: Performed By: #### C MP, TSH #### [facility] [address] [place] [address] Dr. Cipriano Simon IG # 0.03 10e3/ul Normal 0.00-0.03 [facility] Comment on above: Performed By: #### C MP, TSH #### [facility] [address] [place] [address] Dr. Cipriano Simon IG % 0.5 % Normal 0.0-0.5 [facility] Comment on above: Performed By: #### C MP, TSH #### [facility] [address] [place] [address] Dr. Cipriano Simon LYMPH # 2.6 103/ul Normal 1.2-3.8 [facility] Comment on above: Performed By: #### C MP, TSH #### [facility] [address] [place] [address] Dr. Cipriano Simon Lymphocytes/100 WBC (Bld) 44.6 % Normal 20.5-60.0 [facility] Comment on above: Performed By: #### C MP, TSH #### [facility] [address] [place] [address] Dr. Cipriano Simon MANUAL DIFF REQ NO Normal [facility] Comment on above: Performed By: #### C MP, TSH #### [facility] [address] [place] [address] Dr. Cipriano Simon MCH (RBC) [Entitic mass] 29.7 pg Normal 25.9-34.0 [facility] Comment on above: Performed By: #### C MP, TSH #### [facility] [address] [place] [address] Dr. Cipriano Simon MCHC (RBC) [Mass/Vol] 35.0 g/dL Normal 29.9-35.2 [facility] Comment on above: Performed By: #### C MP, TSH #### [facility] [address] [address] [address] Cipriano Simon MCV (RBC) [Entitic vol] 84.9 fL Normal 80.0-94.0 [facility] Comment on above: Performed By: #### C MP, TSH #### [facility] [address] [address] [address] Cipriano Simon MONO # 0.4 103/ul Normal 0.3-0.8 [facility] Comment on above: Performed By: #### C MP, TSH #### [facility] [address] [address] [address] Cipriano Simon Monocytes/100 WBC (Bld) 7.0 % Normal 1.7-12.0 [facility] Comment on above: Performed By: #### C MP, TSH #### [facility] [address] [place] [address] Dr. Cipriano Simon NEUT # 2.6 103/ul Normal 1.4-6.5 [facility] Comment on above: Performed By: #### C MP, TSH #### [facility] [address] [address] [address] Cipriano Simon Neutrophils/100 WBC (Bld) 44.5 % Normal 43.0-75.0 [facility] Comment on above: Performed By: #### C MP, TSH #### [facility] [address] [address] [address] Cipriano Simon Platelet mean volume (Bld) [Entitic vol] 9.3 fL Critically low 9.5-13.5 [facility] Comment on above: Performed By: #### C MP, TSH #### [facility] [address] [address] [address] Cipriano Simon PLT 215 103/ul Normal 150-450 [facility] Comment on above: Performed By: #### C MP, TSH #### [facility] [address] [address] [address] Cipriano Simon RBC 5.29 106/ul Normal 4.70-6.10 [facility] Comment on above: Performed By: #### C MP, TSH #### [facility] [address] [place] [address] Dr. Cipriano Simon WBC 5.9 103/ul Normal 4.0-11.0 [facility] Comment on above: Performed By: #### C MP, TSH #### [facility] [address] [place] [address] Dr. Cipriano Simon GLYCOHEMOGLOBIN A1Con 2021 ADA RECOMMENDATION SEE BELOW Normal [facility] Comment on above: Result Comment: ADA RECOMMENDED LIMIT 4.0 - 6.0 ADA THERAPEUTIC TARGET < 7.0 ACTION SUGGESTED > 7.0 Performed By: #### A 1C #### [facility] [address] [place] [address] Dr. Cipriano Simon Glucose [Mass/Vol] 169 mg/dL Normal [facility] Comment on above: Performed By: #### A 1C #### [facility] [address] [place] [address] Dr. Cipriano Simon HbA1c (Bld) [Mass fraction] 7.5 % Critically high 4.5-6.2 [facility] Comment on above: Performed By: #### A 1C #### [facility] [address] [place] [address] Dr. Cipriano Simon LIPID PROFILEon 12-21-2021 CHOL-HDL RATIO NORM SEE BELOW Normal [facility] Comment on above: Result Comment: 3.3 - 4.4 LOW RISK 4.4 - 7.1 AVERAGE RISK 7.1 - 11.0 MODERATE RISK >11.0 HIGH RISK Performed By: #### C MP, TSH #### [facility] [address] [place] [address] Dr. Cipriano Simon Cholesterol [Mass/Vol] 185 mg/dL Normal <=200 [facility] Comment on above: Performed By: #### C MP, TSH #### [facility] [address] [place] [address] Dr. Cipriano Simon Cholesterol in HDL [Mass/Vol] 39 mg/dL Critically low 40-60 [facility] Comment on above: Performed By: #### C MP, TSH #### [facility] [address] [address] [address] Cipriano Simon Cholesterol in LDL [Mass/Vol] 99.2 mg/dL Normal [facility] Comment on above: Performed By: #### C MP, TSH #### [facility] [address] [address] [address] Cipriano Simon Cholesterol.total/Ch olesterol in HDL [Mass ratio] 4.7 {ratio} Normal [facility] Comment on above: Performed By: #### C MP, TSH #### [facility] [address] [place] [address] Dr. Cipriano Simon HDL NORMAL > or = 60 mg/dl - LO W CARDIOVASCULAR RISK <40 mg/dl - HIGH CARDIOVASCULAR RISK Normal [facility] Comment on above: Performed By: #### C MP, TSH #### [facility] [address] [place] [address] Dr. Cipriano Simon LDL CALC NORMAL SEE BELOW Normal [facility] Comment on above: Result Comment: <100 mg/dl OPTIMAL 100 - 129 mg/dl NEAR OR ABOVE OPTIMAL 130 - 159 mg/dl BORDERLINE HIGH 160 - 189 mg/dl HIGH >190 mg/dl VERY HIGH Performed By: #### C MP, TSH #### [facility] [address] [address] [address] Cipriano Simon Triglyceride [Mass/Vol] 234 mg/dL Critically high <=150 [facility] Comment on above: Performed By: #### C MP, TSH #### [facility] [address] [address] [address] Cipriano Simon VLDL CALC 46.8 mg/dL Normal [facility] Comment on above: Performed By: #### C MP, TSH #### [facility] [address] [place] [address] Dr. Cipriano Simon MICROALBUMIN, RAND URon 07-1 mALB <1.3 Normal <=30.0 [facility] Comment on above: Performed By: #### M ALBR #### [facility] [address] [place] [address] Dr. Cipriano Simon PROF 14(COMP METB)on 022 Albumin [Mass/Vol] 3.9 g/dL Normal 3.4-5.0 [facility] Comment on above: Performed By: #### C MP, TSH #### [facility] [address] [place] [address] Dr. Cipriano Simon Albumin/Globulin [Mass ratio] 1.1 {ratio} Normal [facility] Comment on above: Performed By: #### C MP, TSH #### [facility] [address] [place] [address] Dr. Cipriano Simon ALP [Catalytic activity/Vol] 96 U/L Normal 46-116 [facility] Comment on above: Performed By: #### C MP, TSH #### [facility] [address] [place] [address] Dr. Cipriano Simon ALT [Catalytic activity/Vol] 51 U/L Normal 16-63 [facility] Comment on above: Performed By: #### C MP, TSH #### [facility] [address] [place] [address] Dr. Cipriano Simon Anion gap [Moles/Vol] 13.4 mmol/L Normal [facility] Comment on above: Performed By: #### C MP, TSH #### [facility] [address] [place] [address] Dr. Cipriano Simon AST [Catalytic activity/Vol] 15 U/L Normal 15-37 [facility] Comment on above: Performed By: #### C MP, TSH #### [facility] [address] [place] [address] Dr. Cipriano Simon Bilirubin [Mass/Vol] 0.8 mg/dL Normal 0.2-1.0 [facility] Comment on above: Performed By: #### C MP, TSH #### [facility] [address] [place] [address] Dr. Cipriano Simon Calcium [Mass/Vol] 8.8 mg/dL Normal 8.5-10.1 [facility] Comment on above: Performed By: #### C MP, TSH #### [facility] [address] [address] [address] Cipriano Simon Chloride [Moles/Vol] 105 mmol/L Normal 98-107 [facility] Comment on above: Performed By: #### C MP, TSH #### [facility] [address] [address] [address] Cipriano Simon CO2 [Moles/Vol] 25.4 mmol/L Normal 21.0-32.0 [facility] Comment on above: Performed By: #### C MP, TSH #### [facility] [address] [place] [address] Dr. Cipriano Simon Creatinine [Mass/Vol] 0.91 mg/dL Normal 0.70-1.30 [facility] Comment on above: Performed By: #### C MP, TSH #### [facility] [address] [place] [address] Dr. Cipriano Simon EGFR-AF RUSSIAN >60 Normal >=60 [facility] Comment on above: Performed By: #### C MP, TSH #### [facility] [address] [place] [address] Dr. Cipriano Simon EGFR-NON AF RUSSIAN >60 Normal >=60 [facility] Comment on above: Performed By: #### C MP, TSH #### [facility] [address] [place] [address] Dr. Cipriano Simon Globulin (S) [Mass/Vol] 3.6 g/dL Normal [facility] Comment on above: Performed By: #### C MP, TSH #### [facility] [address] [place] [address] Dr. Cipriano Simon Glucose [Mass/Vol] 198 mg/dL Critically high 74-106 [facility] Comment on above: Performed By: #### C MP, TSH #### [facility] [address] [place] [address] Dr. Cipriano Simon Potassium [Moles/Vol] 3.8 mmol/L Normal 3.5-5.1 [facility] Comment on above: Performed By: #### C MP, TSH #### [facility] [address] [address] [address] Cipriano Simon Protein [Mass/Vol] 7.5 g/dL Normal 6.4-8.2 [facility] Comment on above: Performed By: #### C MP, TSH #### [facility] [address] [address] [address] Cipriano Simon Sodium [Moles/Vol] 140 mmol/L Normal 136-145 [facility] Comment on above: Performed By: #### C MP, TSH #### [facility] [address] [address] [address] Cipriano Simon Urea nitrogen [Mass/Vol] 13.0 mg/dL Normal 7.0-18.0 [facility] Comment on above: Performed By: #### C MP, TSH #### [facility] [address] [address] [address] Cipriano Simon Urea nitrogen/Creatinine [Mass ratio] 14.3 mg/mg Normal [facility] Comment on above: Performed By: #### C MP, TSH #### [facility] [address] [address] [address] Cipriano Simon VITAMIN B12on 12-21-2021 Cobalamin (Vitamin B12) [Mass/Vol] 647.0 pg/mL Normal 193.0-986.0 [facility] Comment on above: Performed By: #### C MP, TSH #### [facility] [address] [address] [address] Cipriano Simon Ambulatory Visit Summaryon 0 11-09-2021 Ambulatory Visit Summary RIC SANCHEZ :1960 Visit Date:11/09/2021 Ambulatory Visit Instructions Your Diagnosis Kidney stone Tests Performed Urnls Dip Stick Auto w/o Microscopy POC 89137 XR Abdomen 1 View -- Results Pending -- Please visit your patient portal for your results or contact your primary care physician. Your Care Team Attending Physician - Elan Peterson MD, Lino Goodson Primary Care Physician - CHRISTOPHER PEARCE DO This Is Your Medications List Contact prescribing physician if questions or concerns alprazolam (Xanax 0.5 mg Tab) ketorolac (ketorolac 10 mg Tab) metformin (metformin 1000 mg oral tablet) multivitamin (Multi Vitamin+) pioglitazone (pioglitazone 30 mg Tab) [Image Removed: STOP]Stop taking these medications acetaminophen-hydrocod one (acetaminophen-hydroco done 325 mg-5 mg oral tablet) acetaminophen-oxycodon e (Percocet 5 mg-325 mg oral tablet) hyoscyamine (Levsin 0.125 mg SL Tab) Procedures Performed Cystoscopy (03/25/2021), ESWL - Extracorporeal shockwave lithotripsy for renal calculus (04/11/2008), Hip replacement. Discharge Vitals Heart Rate (Peripheral) 81 Blood Pressure 113/88 Height 178 cm Height 178.0 cm Weight 84 kg Weight 84.0 kg BMI 26.51 What to do next You Need to Schedule the Following Appointments Follow Up with Elan Peterson MD, Lino Goodson URO When: In 6 months 05/12/2022 EST Comments: w/kub Where: [facility] [address] , [place] [address]- Medications What How Much When Instructions Unchanged alprazolam (Xanax 0.5 mg Tab) 1 Tablets By Mouth 3 times a day as needed for for anxiety Contact prescribing physician if questions or concerns Unchanged ketorolac (ketorolac 10 mg Tab) 1 Tablets By Mouth Every 4 hours as needed for for pain Contact prescribing physician if questions or concerns Unchanged metformin (metformin 1000 mg oral tablet) 1 Tablets By Mouth Every day Contact prescribing physician if questions or concerns Unchanged multivitamin (Multi Vitamin+) 1 tab By Mouth Every day Contact prescribing physician if questions or concerns Unchanged pioglitazone (pioglitazone 30 mg Tab) 1 Tablets By Mouth Every day Contact prescribing physician if questions or concerns What How Much When Comments Stop Taking acetaminophen-hydrocod one (acetaminophen-hydroco done 325 mg-5 mg oral tablet) 1 Tablets By Mouth Every 6 hours as needed for as needed for pain Stop Taking acetaminophen-oxycodon e (Percocet 5 mg-325 mg oral tablet) 1 Tablets By Mouth Every 6 hours as needed for Pain 8-10 Stop Taking hyoscyamine (Levsin 0.125 mg SL Tab) 1 Tablets By Mouth 4 times a day as needed for spasm Test Results Urnls Dip Stick Auto w/o Microscopy POC 87574 (11/09/2021) Bilirubin Urine Dipstick - Negative Blood Urine Dipstick - Negative Glucose Urine Dipstick - 3+ 1000 mg/dl Ketones Urine Dipstick - Trace - 5 mg/dl Leukocytes Urine Dipstick - Negative Nitrite Urine Dipstick - Negative Protein Urine Dipstick - Negative Specific [place] Urine Dipstick - 1.020 Urine Appearance Urine Dipstick - Clear Urine Color Urine Dipstick - Dark yellow Urobilinogen Urine Dipstick - Normal 0.2-1 EU/dl pH Urine Dipstick - 7 Medications and Immunizations Administered Not Given influenza virus vaccine, inactivated, Postpone due to refusal Allergies baclofen (Unknown) celecoxib (Unknown) iodine (Unknown) Education Materials Kidney Stones Kidney stones are rock-like masses that form inside of the kidneys. Kidneys are organs that make pee (urine). A kidney stone may move into other parts of the urinary tract, including: ? The tubes that connect the kidneys to the bladder (ureters). ? The bladder. ? The tube that carries urine out of the body (urethra). Kidney stones can cause very bad pain and can block the flow of pee. The stone usually leaves your body (passes) through your pee. You may need to have a doctor take out the stone. What are the causes? Kidney stones may be caused by: ? A condition in which certain glands make too much parathyroid hormone (primary hyperparathyroidism). ? A buildup of a type of crystals in the bladder made of a chemical called uric acid. The body makes uric acid when you eat certain foods. ? Narrowing (stricture) of one or both of the ureters. ? A kidney blockage that you were born with. ? Past surgery on the kidney or the ureters, such as gastric bypass surgery. What increases the risk? You are more likely to develop this condition if: ? You have had a kidney stone in the past. ? You have a family history of kidney stones. ? You do not drink enough water. ? You eat a diet that is high in protein, salt (sodium), or sugar. ? You are overweight or very overweight (obese). What are the signs or symptoms? Symptoms of a kidney stone may include: ? Pain in the side of the belly, right below the ribs (flank pain). Pain usuall (more content not included)... Normal [facility] Patient Educationon 05-31-20 22 Patient Education Urology Kidney Stones Kidney stones are rock-like masses that form inside of the kidneys. Kidneys are organs that make pee (urine). A kidney stone may move into other parts of the urinary tract, including: ? The tubes that connect the kidneys to the bladder (ureters). ? The bladder. ? The tube that carries urine out of the body (urethra). Kidney stones can cause very bad pain and can block the flow of pee. The stone usually leaves your body (passes) through your pee. You may need to have a doctor take out the stone. What are the causes? Kidney stones may be caused by: ? A condition in which certain glands make too much parathyroid hormone (primary hyperparathyroidism). ? A buildup of a type of crystals in the bladder made of a chemical called uric acid. The body makes uric acid when you eat certain foods. ? Narrowing (stricture) of one or both of the ureters. ? A kidney blockage that you were born with. ? Past surgery on the kidney or the ureters, such as gastric bypass surgery. What increases the risk? You are more likely to develop this condition if: ? You have had a kidney stone in the past. ? You have a family history of kidney stones. ? You do not drink enough water. ? You eat a diet that is high in protein, salt (sodium), or sugar. ? You are overweight or very overweight (obese). What are the signs or symptoms? Symptoms of a kidney stone may include: ? Pain in the side of the belly, right below the ribs (flank pain). Pain usually spreads (radiates) to the groin. ? Needing to pee often or right away (urgently). ? Pain when going pee (urinating). ? Blood in your pee (hematuria). ? Feeling like you may vomit (nauseous). ? Vomiting. ? Fever and chills. How is this treated? Treatment depends on the size, location, and makeup of the kidney stones. The stones will often pass out of the body through peeing. You may need to: ? Drink more fluid to help pass the stone. In some cases, you may be given fluids through an IV tube put into one of your veins at the hospital. ? Take medicine for pain. ? Make changes in your diet to help keep kidney stones from coming back. Sometimes, medical procedures are needed to remove a kidney stone. This may involve: ? A procedure to break up kidney stones using a beam of light (laser) or shock waves. ? Surgery to remove the kidney stones. Follow these instructions at home: Medicines ? Take klny-pih-ayqdlra and prescription medicines only as told by your doctor. ? Ask your doctor if the medicine prescribed to you requires you to avoid driving or using heavy machinery. Eating and drinking ? Drink enough fluid to keep your pee pale yellow. You may be told to drink at least 8?10 glasses of water each day. This will help you pass the stone. ? If told by your doctor, change your diet. This may include: ? Limiting how much salt you eat. ? Eating more fruits and vegetables. ? Limiting how much meat, poultry, fish, and eggs you eat. ? Follow instructions from your doctor about eating or drinking restrictions. General instructions ? Collect pee samples as told by your doctor. You may need to collect a pee sample: ? 24 hours after a stone comes out. ? 8?12 weeks after a stone comes out, and every 6?12 months after that. ? Strain your pee every time you pee (urinate), for as long as told. Use the strainer that your doctor recommends. ? Do not throw out the stone. Keep it so that it can be tested by your doctor. ? Keep all follow-up visits as told by your doctor. This is important. You may need follow-up tests. How is this prevented? To prevent another kidney stone: ? Drink enough fluid to keep your pee pale yellow. This is the best way to prevent kidney stones. ? Eat healthy foods. ? Avoid certain foods as told by your doctor. You may be told to eat less protein. ? Stay at a healthy weight. Where to find more information ? National Kidney Foundation (NKF): www.kidney.org ? [employer] (UCF): www.urologyhealth.org Contact a doctor if: ? You have pain that gets worse or does not get better with medicine. Get help right away if: ? You have a fever or chills. ? You get very bad pain. ? You get new pain in your belly (abdomen). ? You pass out (faint). ? You cannot pee. Summary ? Kidney stones are rock-like masses that form inside of the kidneys. ? Kidney stones can cause very bad pain and can block the flow of pee. ? The stones will often pass out of the body through peeing. ? Drink enough fluid to keep your pee pale yellow. This information is not intended to replace advice given to you by your health care provider. Make sure you discuss any questions you have with your health care provider. Document Released: 11/14/2008 Document Revised: 10/15/2019 Document Reviewed: 10/15/2019 Elsevier Patient Education ? 2019 [employer] [facility] Urology Office/Clinic Noteon 11-09-2021 Urology Office/Clinic Note Chief Complaint pt is here for f/u with kub This patient is a 61-year-old male with a history of a left ureteral calculus. He status post ureteroscopic stone extraction with laser lithotripsy and stent placement in March 2021. He is here today for follow-up visit. He did not get a KUB x-ray for review. We do not have a PSA for review. HPI Staff pt is here for 6mo f/u with KUB. Recent KUB done 03-25-21 shows nonobstructive bowel gas pattern. previous dx: Kidney stone (CT & KUB done 03/15/21 showing left partially obstructing 4mm stone, ESWL done in past), Flank pain, gross hematuria, & frequency of urination. Dysuria: _denies Incomplete bladder emptying: _denies Hematuria: _denies visibly Frequency: _denies Urgency: _denies Nocturia: _denies Stream: _steady Leaking: _denies Post void dripping: _denies Wearing pads/ Depends: _denies Urge incontinence: _denies Stress incontinence: _denies Incontinence without Sensory Awareness: _denies Abdominal pain: _denies Flank pain: _denies Sexual complaints: _ History of Present Illness Tests Reviewed: Reviewed UA. I have reviewed the previous health record information and history for this patient from Dr. Ansari I have reviewed and verified the staff HPI to be accurate for this encounter. There have been no associated fever, chills, flank pain, or blood in the urine. Denies any urinary infections since last encounter. Review of Systems PHQ Score Initial Depression Screen Score: 0 ROS - Provider Constitutional: denies weight loss, denies hot flashes. Eyes: denies eye problems. Gastrointestinal: denies nausea, denies vomiting. Cardiovascular: denies chest pain or angina. Integumentary: no dryness Musculoskeletal: denies musculoskeletal symptoms. ENMT: denies otolaryngeal symptoms. Respiratory: no shortness of breath. Heme/Lymph: denies easy bleeding tendency, denies easy bruising tendency. Psychiatric: no confusion, no anxiety. Genitourinary: denies dysuria, denies hematuria, denies discharge, denies urinary frequency, denies urinary hesitancy, denies nocturia, denies incontinence, denies genital sores, denies decreased libido, and denies erectile dysfunction. Physical Exam Vitals & Measurements HR: 81(Peripheral) BP: 113/88 HT: 178 cm HT: 178.0 cm WT: 84 kg WT: 84.0 kg BMI: 26.51 General Appearance: alert, no distress, well nourished, well developed male. Genitourinary: normal scrotum, normal testes, normal urethra, normal epididymis, normal vas deferens/spermatic cord. Flank Pain: none. Bladder: nonpalpable. Assessment/Plan Patient has a history of a left ureteral calculus. He status post stone extraction, laser lithotripsy and stent placement. The stent has since been removed. Patient does not have a KUB for review today. He has not passed any stones since his last procedure in March. Today we discussed dietary changes, increasing fluid intake and other things he might do to help decrease potential formation of new stones. Since he does not have a KUB will order one for next visit in 6 months and we will ask him to get one in the next week to 2 weeks for review. We will plan to see him back in the office in 6 months unless he has another problem with another stone. Hopefully he will follow with dietary changes and fluid intake recommendations. We will consider medication management if needed. 1. Kidney stone (N20.0: Calculus of kidney) Patient is status post Cysto stent removal 04/01/21 after Cystoscopy with retrograde pyelogram, ureteroscopic stone extraction with laser lithotripsy, ureteral stent placement left side done 03/25/21. Patient states he has not had any issues with stones since surgery. Advised patient that his stone was calcium oxalate advised him to limit oxalate intake, cola, chocolate, tea etc. and to increase his water intake 1-2 glasses a day. and to increase citrus containing food/drinks. Patient did not have repeat kub will have patient get a kub done now and in 6 months before next follow up. Ordered: Urnls Dip Stick Auto w/o Microscopy POC 55886 Urnls Dip Stick Auto w/o Microscopy POC 81936 XR Abdomen 1 View XR Abdomen 1 View Follow-up With When Contact Information Elan Peterson MD, Lino Goodson, URO In 6 months 05/12/2022 [facility] [address] [place] [address]- Additional Instructions: w/kub Patient Education Kidney Stones, [id number] Grace Elizabeth personally scribed for Dr. Ansari on 11/09/2021 09:46:54. . Documentation recorded by the scribe, Grace Marin, accurately reflects the services(s) I performed and decisions made by me. Authenticated by Lino Ansari MD on [ Current Date and Time ]. Problem List/Past Medical History Ongoing No qualifying data Historical No qualifying data Procedure/Surgical History ESWL - Extracorporeal shockwave lithotripsy for renal calculus (04/11/2008), Hip replac (more content not included)... Normal [facility] Comment on above: Result Comment: Elec tronically Signed By: Lino Ansari Jr., MD\.br\Date and Time Signed: 11/09/21 09:52 EDT\.br\Electronically Co-Signed By: Grace Marin MA\.br\Date and Time Co-Signed: 11/09/21 09:47 EDT GLYCOHEMOGLOBIN A1Con 2021 ADA RECOMMENDATION ADA THERAPEUTIC TARG ET 6.0 - 7.0 ACTION SUGGESTED > 7.0 Normal [facility] Comment on above: Performed By: #### C MP, TSH #### [facility] [address], [place] [address] Dr. Cipriano Simon Glucose [Mass/Vol] 148 mg/dL Normal [facility] Comment on above: Performed By: #### C MP, TSH #### [facility] [address], [place] [address] Dr. Cipriano Simon HbA1c (Bld) [Mass fraction] 6.8 % Critically high <=6.0 [facility] Comment on above: Performed By: #### C MP, TSH #### [facility] [address] [place], [place] [address] Dr. Cipriano Simon Formson 04-08-2021 Forms [id number] 0CD:127 Normal [facility] Coding Summary.on 04-07-2021 Coding Summary. CD:[id number] Gh 0bWw+PGhlYWQ+ND2XNXTnM 65hiEZedU2UP7oDBE1LSDL IWVPRDL8SJN8qbRE5MHyuM 2VybiAv ZhaajXBtGV13NWf2NLW4eS diGEmovF0ajHYmN5a3FmCl YP59aR77ZNmyJGXuVlT5Hu ZpbjsgbWFy V7pkWxKubOVwKji+PHRhYm xlIHdpZHRoPScxMDAlJyBz bNpxMS0qTq4bPFYaOJVfrB xhcHNlOiBj o8hvDRGmKDzkMI8fgEmtX5 RshSN1NFFlz2k4Hq90wQG+ ZLCaKWV9iHhlFNpxb383Ue Cyq0awNLB1 zEBeURzmTYU4V17st8W3PF MkJYDzCRK4mJT2aX9yyWyn hggeM1OaxDUyFcK5PQO8jG ZkiF1cbZbr pqohgF8rUxk+O84HPS0UOL RSUW5AIdu8G0UeKjlnuGH+ EJ67XUFvDW63aLKqnYIlh7 kmlGl4YnTd TEBrLPU7hDrwXWcma7YrFT RjF36pnLIua8P7NPKalInm bQWaEhGcdUP3eF9cJQugzh adp3hifglo Eaveh4pbjf83hP58X53wPM zzRNPySBY9FEWbQIEdwBxn kg9ohA7wKq3+XNtvz2xrf0 ienQm3JbCv JDPesdPqkRyqXAZ6g9QhPl 28J7NfzKfcy1DzAdj2hg20 gGLgm5F3zBH9PAepHXKubH 4sTZrdXxB2 OQMrCkMbkM69eLUcFKtwBo 0taLkvnXoxUT8vHSAtzinv RYMdcD9rMEQkjLOpzKkdEC 4wNTBpbjtm u864XhZuEYF1SVSuyFSoN3 BwlR0nGcQkOJVqRTMrP7Hr rVRaXNytK659AHkcLmP7WF CukyAhL7Iy JEQhsGctJsE9y7Z4Sc0Qt2 YrcqnyQCW2KOgcJTKbVwV2 YrDjFyO1Z3RkZbi1OIZhpQ rpCS8uB2Nr HQXxdzqfbzzohUW7AKChZK OxyM97eNNwHKzqYr2vq4U6 b315MDQrGKTfnJ59Jr8bpZ ogMTBwdCBU eG1znrccj0lidlvyDuZpUG MqXTk5DCn6QHEerLusDvYe FBD1UpE1NAJ1nHEriL7bkQ gwxmeleO9y Oyc+P88daR6hAFB2YZP8oi jvQYPgjwGaEM24BB14Q0Yl PjwvdGFibGU+PGRpdiBzdH ksQA9dTbHh o3bsa3CtSIjzK7SyVDKtPE lfCic2JLCtAYU4lQM2jD1g BQKsWEqvr7U8kIP6D4Rotx Drtc7vi5rr VRPyFIwwC73pkZJaw9F0FF DmzCX9MONusBnvAiVfqL35 Oyc+XNRwlKjxm8MeEupnb4 juj5gakWz5 ZqNeHQYghzGmfPlsIUT6j5 MlPs45E94sOIgxPEJyUOPh JCPqHQDwjVwhgf1zmD7yNn 8+PGNvbCB3 vQL8dQ8qMXQmGnC3UMmfY2 54BkMvtODxBdsmf4xvv5sk zQc9MoAvSEBpjiYddYhwHZ Q8q1LmZz06 V65vNIxyBIJePLVsJIRyTF OvvIqglu7tvY6tWt4+PC9j l7ymkh76jO08xRU+PHRkIH S3kPxnDVpb BTFuxP4jMBayCmU1UXEhUh VwdB74wTAoKDncZj9xrDyt yEdzIE4xIUXaqrjhf184Hj Qqw7bfFJNz bCTjQQzqUBT6K49gl4L8FO HwKUSfISQ3cTX4sE5nxLlx bjogbGVmdDsgdmVydGljYW yzVXswD528 IHRvcDsnPlBhdGllbnQgTm RmKUd0V9JuQiy9OOGmuSro YI2dsPMlYQfjAb7xoEcqsO aqRG8xDYGf aapbw796ZwEjn9zvFVBhiI LfTYrjGOO9B74za6F3FHFa JAYgCQE1zTC5rU3jkGcvew ogbGVmdDsg nkUzaVpuMSbfFKgrG484JP RvcDsnPkJpcnRoIERhdGU6 PD01MG41lUQoo1X3vNU8C9 BhZGRpbmct wvdcjPW3TFXcACPcrR55Jr 5cnNacUv2cWNHfXBR3XCCe aDJwW1LufK9oViMeIJEyMP TaA9IcbPUz GDczB537EVioOqJ6BKCwqx UxS8UtEURqrSarQxJ4x0I9 Sc1NM0H4IN29OR07pOMhd3 Y7dJT7Q7Jj TXPgvfbpjabtaSS0PYJcKX GnmG28Ud2dqRraSq1pQMWx YKL1KUQlrMLsU6LkbM9hQf AjMDAwMDAw E7BnaBEmSLsiR549XXmhCe K5PIKphxHtH3NwJPHjvVpx AzW9o2X4Bf0MZLm6OV54SS 48uCZay7Y5 eSE9I2BuTKZqvtgejejvyO Z6ZQBjVBFbbK31Pu3msZjh Bv8yORPwGRO4LVKsbMPgM7 XwlC1fHmPr ELCvVKVhW9DgcBJwRAzcD8 09EVwsIwQ3JVBbynRnZ6Lk UUVtdZggIpC0c1T9Gb1GHW WjKT15HNO8 yOY1MG67DI88T8HnSealxO FibGU+PHRhYmxlIHdpZHRo YVaiXITeXuItyShbXT1lQw 9yZGVyLWNv dVynyOEyOlUnv4tjIBEeSH rvOV3edBdwW4BcjBR9BNOx a3p6Rf89L37pD4RorXK+PG AlyJZ9fAR3 dL3gRgInVjE1LSrrU186Sa OxfDDmWuttj3xya5sbjHh2 MhJ5OKKsskKphHksAOU5n4 SyXp89A46a IHdpZHRoPSIxNSUiIHZhbG zhwb1tyZ8oRg9+PGNvbCB3 yYA9rQ8yNqWrIkI3RUqiT0 49InRvcCIv Bgffz7pkz8zruEv9CmXhLT HfrgQecJcaGBZ1t0TsMo08 J9ClwRpgu2AkKot5so77sX Gdd1T3cGE6 B0VxAIRalrgxwRRorKtqOO 4eMMOgkbxvQEOamP3sHDRv R0u3FrXxVtF5QRouX5Gyyu Q1LIRaoLXa MZixTSS2X11bs2I6FSFvEX ViXKD9uXS5yM0qaZgdnwkf bGVmdDsgdmVydGljYWwtYW ynT256KRTv dMekDLLvvG5bMTUocZPiyG trVO9yZAJnvzwiGe5JOR2o TGeJRNkTTpc1O3GyBwn0OZ ZdwIefYZ1x pATiIGauEx6uzOzqmBpiMJ 9cEKGxdxnvMMLeuP0eTKPr qZQftRowNQ4zJAAkavxfj2 88OtSySFP5 NLZqhLSlC1YtcN2qQlOeKG KtAMGdI4ScxOHuUNrvW313 ELmtJxT4KIGnoxFjV0QlEQ FsaWduOiB0 o0U5Sa6uXv6iHr6dLWObMW 64YX18bUZtt4L4rMX6H9Xw FOTnjailgalkhNJ1ZZOsHN NeuO37gATa SYnpYi6kp0P0a193WOWbAE UurM15Zf7qaXmkEPKxoPQO xK2zrfbrh5gbdhndCjZySO HbTVu0XAs2 QPXnkFpiTtKwTRZ9GgV8LA I3hPMqmC6xcKyuumcykA7u Oyc+QJmyUYBxcsL2L4DzUj c9JEQgxYqv AL1xyRRsKPnxKe7foZacoY rpFI5fEPTypjecTKOytY3u CEVhnMXkjRlwTQ4bQZIktl mzz434CaPb AHV5ACXowLJaD2XntN5fLo GiXLZnNNAtA8KboPUwRKfz W272IBvmMyK1JQVccyWlS6 FsLWFsaWdu HsC4w6I8Yz1HJFupHS78GN 97qEYbv6G5tVF1B6LwQYAy lvfwvpxzgYQ0YYYuRDYhyI 47cGFkZGlu Bq7at0Z8d465QPRoFYEktR 19Av3bfUpxHXLtcLZSpR6x uthrc7vyaxecBrLxCKHtJF w9DZn9QVBo pWmsPwVsYJP4KtC3JVE0nC XxsG4uzWinqhwebB7bElc+ Z7R9pAG2jXNdfGxdzQV+PC 78qe81J4Yb XcmpFes8RLAjHDE8rOQ5jC 9oSEUuFBsnm7Q9tIZ4L3Jl eiMkht2ry3qhNAGgJGgvR1 5geLYhy3S1 BBLeyBC4UUReeZuaFgVjnY 93Oyc+IOFrvIkyg0DvEsib o1nlr4ixuHt8QpFnXISgyf FsaWduPSJ0 v8IkHg30A51iLPsmWMXdMV VxPXHsAHGzoJherj4kuQ3m Ii8+NWYnqCE3xXC8hM5vBl AcKbC0QTlb H299JkUzbXXrLsmwj5zox2 ghsNy0KfYaGIHqwkMznKud CIZ3q8WgZt63I8QpwShcu2 UkEjm9hr44 uOUxk2C4vAM6C4FtUSSgaa omdBPmoNsaXV1yLNYodfdi SFIynH9bJSYlZ3y3AkIcIm P4NKwrZ5Wa xxB7NXHsfUFwPYMlkWNMuR 3aoiuxt9jzdlbhBzMnCAYe KDf3ZPl8LFNbhWknCiDlND Q7NrE1OIC4 bXWixH7xmYptoxtdiN8pYs c+TCd1o7reaTScJN7olLF1 DJ50AG24jOWkn6H3xSD5T9 BhZGRpbmct inrrrWL1RVYnICGiyM03We 5wrQdlVf8bIPNrJFJ2YAQz iTFiU3GfyJ5kYjVnKXEeKM UhL4WesJYe WZolY951SPtaGnU1ORDihe IgT2OxUTIeoHsoCnN1y1D1 Wv8CDQ44XA73LA11cHGiv9 C4fBT1H4Qy WLBgofulpebnkZM0SLPaFD FkwW73Gk1alLodFd4pYKIg AHV3GFTbmFNtX5KzqR6sCc AjMDAwMDAw D7CjjFPcDVmrP631AVxeYb M2OGAjqiQnO3SdLMKzpVbd CiP0n1N1Zp6UTd85YS34XN 93uMWxy1Q9 uIJ2C6JhMQMzmpgzbynwzE S4XEXsQHJsdG02Fy8kqXai Rc6kVNMdTGB3JOYvsIAhX8 NuhA2fQzJf FLMzGQUuD4RsmMEqQIibH3 16CWwyQnL4XSNugbPvP0Qp QQVglDtiNmT7r5U0Fi9KKK ibxka6W7Sq PjwvdHI+PB09OPKqYG84yQ UwtTTso0fhyNi5AdKdPCOp ISW5pCgpPAcoo4JkOOVeK4 0caOBzg5J6 IGNv (more content not included)... Normal [facility] Consent for Procedure/Surger yon 04-06-2021 Consent for Procedure/Surgery [id number]#1. 00CD:127 [facility] IntraOperative Documentson 1 IntraOperative Documents [id number]#1. 00CD:127 [facility] Pre-Certification Formon Pre-Certification Form [id number]#1.0 0CD:127 [facility] Coding Summary.on 04-02-2021 Coding Summary. CD:[id number]:[id number] Gh 0bWw+PGhlYWQ+LJ3WRQSyD 46jfTPyaV4TL5eHFQ9TYZI KZGTYTP0FDB3xsLU6GBbkS 2VybiAv FwaawUWtMY75NSa3BLK0pV xyBGtmfB6bmHVbR4x4PoFv ED07uF95DBrqYSJdUsH7Co ZpbjsgbWFy S3vsMvSqwCZxYkh+PHRhYm xlIHdpZHRoPScxMDAlJyBz wOeeZQ6sEj3hSNDmUTEbxM xhcHNlOiBj k1eoDEWmQUdfZL5haGxxY3 TjhFH5SFQhl5n6Ns56gVV+ ZFRfSVJ9hAbkIXeqk091Xw Rxh5fdBCF5 tQVxXKqaZPC6X63dm2R2FF DgHWFfBPA5pTZ3dJ9tcOpq mffzH7TefWJyFzE2ZVZ4pV PcuL0sdZce cetrwT4mUqf+S37TGK0VHC RNQZ0BZkf9W5ChGftlxSZ+ SB27NZLqEV84vGAthGAcr0 fecXh1XcTt TNXkPLS4iZuvUIunk2GuCF UhG49qqJJsp4E1LOXslZkv fZImPxXlrJD1aZ9iWUtusr sto9wrbcgy Thobn3oiml93lF94Q43nER kbBDVvWBX8PYTaRIFceAli bu1brR0yAm6+KIgwq2qya2 sxuQn5SmYb QTHoyzUzqFzdGUX3h2MeVp 38U7YmeEdvf5YlSpv5qm51 bJQcf4J2sLF9ZPufQDDmeU 7fJDvjEnL5 QGZpKkBafX23oZDyKDkhYy 3pzEkckSccJU9pHQNcpycs QUTrcS7jUBRfkNBdnFgeBB 4wNTBpbjtm m554BiFeRJN8CFDkcZAlQ4 HujM7iBqSjOHMlBVNmP6Jm nLKfMKjgO253GOjrWyB2GG KfruMpV4Dk DLBvrDhvYhL7p8U9Hv0Uw2 FwmagiTXS2CBaeYTIqWoNk VvIfQuE9I6GwZoj7KCVrsI ztZG3lW3Gi YBBxkujqnarreWV1UZJaEL UlvW31nEVbKInwLg1kk1M6 p942ZRVeQVExrK58Gb5bwQ ogMTBwdCBU kH8ultzvz9njrzpkOhGzTM HzOGl0WLr2EJVhbLdwShMg ZSU9SjX8ONQ8vTRohZ5jcA eomzllmZ8y Oyc+O17deD6kFFG6DSO3ui hyCMHcrzOiXY77VZ36V9Kz PjwvdGFibGU+PGRpdiBzdH qrBY9ySkOe i4zil7OmIIipR5TrCZPeTS laFeg7AIGlEAD2sZT2pL8j AZVzXRdol7R5iEO2G6Xedd Blck1iq7wy SKTyLGepC34hwTQes1I6MI LnuJW5JYSpiWsqZaGpeP49 Oyc+AZDgwZlcs4HpYscoe6 izt2dhqCt9 OmAlUXMfsfBbePxoJDR9h5 PlYc90P32tMWasQLRpBEUx FUFjLEJdlUidge5gbR3sGl 8+PGNvbCB3 cOJ7oW3hJYAdCgY3JYvpS1 43LeGxkIQrLtxmh5dyz7wk iOm7ZqBoBIUhisHjfRyaYM N9d3BxWi22 V72wABscCROrIGKqVCGaYX AjzVpleq0caW6vVt3+PC9j w4eply02iG32sRC+PHRkIH P2bIlpWKjr QSIcxB5pQBeuPdN1OFSaQz HsjO58lMPpJYanCn2tdKek wKvjQD1xHWQzmdqoe453Xe Dqc6qjDVJi lMYgPXysPOO1U26tg4O7EY KtMUIqRWJ5wDP4xM5utSmf bjogbGVmdDsgdmVydGljYW ssWQhoR288 IHRvcDsnPlBhdGllbnQgTm NkLGk8V0SiXeu4LDLnyWrc UZ6joROpYWkhHc3iyPahgY kbGA3qNOTl idajf916KwVdk0wxJUFzyK GzKUrjKRR0M84iu2G3KGJk ZNRnRTC3fHN2qG1oeNdbol ogbGVmdDsg kzWxhQymKCfqYDftI462EC RvcDsnPkJpcnRoIERhdGU6 JB56ES52pRSxa0L0lOJ4V2 BhZGRpbmct hgxycLX5SNTwBPCvhT97Vd 0mjMkkPu0pCXXwIJG2ZYIz sIDzM1TtbE5zBtEqYNCxHK JmJ0RtgHEi JWtoA155ILrwUnF4UGNqys ZxU5GcYLNdzWunVbP7n1D0 Cy5EY8D0IO07SW89eTJjn1 V3lCK9H6Ad TXOxwucgexppkNQ7ETQbJJ TpyZ53Ov6rrFcqKw5eGBBp LIB5BZMnzQOzA4KktF0zVn AjMDAwMDAw H9KcpKSyAFixN941OJrsKk M5HGEjgiUqL4EzGYCfsJri SfF1e9P2Gu5FMHt0UZ50CM 37sZKee3D7 mLD4I6XrFZRdbngtwgcvjG B4QFGcWPMdqQ86Zb5yiSvk Lu3qWIAmOGQ2JNVisKTnW1 HamG6gHnRt GNXfGXBtF9NxdVXfCUenM1 12AYopGjT1DYSlwtPiK4Cl EESktXnvWzJ8q0I2Mj9CDU ViBF00RZM6 uTY2UG04PO93X0XeHgvjrF FibGU+PHRhYmxlIHdpZHRo XCumHJTvFvMyuEnnUM9zRr 9yZGVyLWNv bNssnKEqWsRji9shZRLzBE xbDJ3jaTcdA4SeeOV9DLNp p9f8Gt77G59sS5IhjPE+PG SsfLI9gHS8 vZ0fKeXtXcR8ROkyI359Sb RujUIkDpzhu6iys3kijSz7 VlQ4LRGpaoTmeVbiJXV1a5 QnMm17L05x IHdpZHRoPSIxNSUiIHZhbG xczi1knG5dZu5+PGNvbCB3 dGU6zZ5gHbSdUyO4MPafQ9 49InRvcCIv Xvtwg4unk2nvpHb1NcEmMN YdyvGkvPvbORU4e1LwMy29 N5PouWqgk0QeXjd4wk99aC Eds0Y9fMM3 L6JsIPKddlwmzMZecRngXF 7lMKQpebomJNDorL9yVPFb A2d4HlOeZkH4HChvH2Hffn P5UOPdiNTr AYyoRBL7L52qb1O1GUYoDD OkRNZ0hYG0aK1otIxdyznb bGVmdDsgdmVydGljYWwtYW nkN441ATRo hDvgLTKsqT0sEBVflPKnkF ixZW3tALIcejujUp7IZU4g YNwKOYnYTmj2H8MfKsi4CS BuyNpbJF6k rJZuFHzaRs9utUedhVpnMW 0tIMCttfdiKEKoaM7yRITu tFNvnXauZX4gFCYckplgw0 47OyKlTRF4 TRHtiHPyX2LqjW9zAoFiJX JvLYIcU3NqfNPaCYddR677 LQmlXyT7MUZpisYuA9YaHK FsaWduOiB0 p1V6Kc8hVm3uUt3bVHWqOX 52DJ53wAVad7B6sYQ2Q8Tt TDAkfknmqdfijJB5LKYkOK YiyN53gJWc HTxrTx7ej5C8z050ZVNsPV AelY89Xl0zdMniBGDxkZDR cS9ankogd8nloteqNhHbTV GfAWo0UGc4 VVRfeQdfLjLzXPE5ThA0RI I2wVKrxR7oaIaqrsvaxN4u Oyc+HGniWTZgsnX1U5CsTm m1ORYnrMmk FY4ioOKmGIjgOj6pnXefoG hkFM6cYDZzhfjpYXUarH4f WERsfTCxiSesJJ2wJIBtfh zav495BkJx GCW5FGFqoTZyC5IigB1pLw JqBZCbGPWfS4EulNGgIXzp Y581OJdiXiA2GGHiboHkD5 FsLWFsaWdu YcZ0q0P0Ay2HVYxyBJ40NJ 12iNBel7Y5hDW3V6PdGAMw lnhfllmymFZ9WYQxWEZcpA 47cGFkZGlu Ba7kv7Q4r468WLShQPKtbY 10Kn1uzEyxXQIqwSWYzW5o fnxft6oxzcscVuKpRNChAM c9KUf6KPAd pTioNrBjQDB9KmE2CYS2aH MthU1wrUecgwdjaE0rLcu+ G5Z7cSR3tFVizFlwoVN+PC 60ww44P2Qw XcwyMzp7FMXiMAJ2xCT5dR 9fLVPwOMpsg6Q5sEN4P6Ef ecChco1ph1phCNMmWUyhY7 7xvEUtb0Y8 RETqxZL7BUNcfPwtWbRlgQ 93Oyc+HOZbxGqke5MoWjyj b4acx8bwiHi8NtKsRJKajw FsaWduPSJ0 q8AwOz23U28fTWpwRSHvFT NkGCInVLVuiEshgl1wfC9h Ii8+OKGvrME4rPE4rY5uZe KtChD2MEbq I579ZqSziFGkZiiur7zmi0 rgbTn4DlKlSTFfogLmqKwg BEE1k9JsIv11M5FsxMpee8 GaZsz1yl01 aSRhx8Z3vYE8F2BhPULmzp cmgVLbkYroAT7jNOOnmrci GUBiwP3aHDFrM7v4FxAhRw P4FNfjG4Fy krA1RFAskOJlIPVmdPOXdJ 0ezlhqd1zokywhVlIwSWCu JVh0UDb4EEMikAmuJhMiIZ N0SeH5DHK3 zSBcqK1adZnivdtnyD4lWg c+DBd4c9fdrEPyTY1elQP2 GK93HP06iGWot4O7bJV7D4 BhZGRpbmct hbnidDG9BRNuRXLlzH01Ok 1xyNvuCj4xBKZaZLE5RBSz zCBkS1XytI8fQcSuFCDkOD WkN9VveAJv PCfyN698EKcaEeK0ESNpag TyV3WeSSTinQjtGtB9l5B7 Vu5DRP71MI21JZ74dZHnm7 Y6lCF0P1Lh YMYagstvixssyJY8JHThUU JuhB39Wx3hoRxsNr6eGZFv BPY5UCJwkUCvA7IxzU6gDl AjMDAwMDAw K0VvsRXgWIrvX181AHxxLx C9KSOqdbGsD9ThXMUkeSlp AdL2s2H6Eh0MNj38TD74UZ 72cJFgg4I2 mOR5Q6XmFIRdwpqqwhqnuR T9VITwMTGkeE02Kq9yvAwe Qt2sSHXmZTG6EOLqoGRnR9 TsaP3rHiKh LADjVNFsY3UdeLGbRZtwT5 04KAolPnD3FLSgnlRcD2Im PUArnQweHiS5p8J2Jw3UDW drzjb9D9Hj PjwvdHI+HL29NHSfSQ01xL LvnBCak5huhGm1NpHoBAAk PCP3zLplVRttq7XePQNxM3 3vkFBtw7C1 IGNv (more content not included)... Normal [facility] Consent for Treatmenton 10-2 Consent for Treatment [id number]#1.0 0CD:127 [facility] IntraOperative Documentson 1 IntraOperative Documents [id number]#1.0 0CD:127 Normal [facility] Main OR Intraoperative Recor shira 04-01-2021 Main OR Intraoperative Record IntraOp Document Type FTURO Summary Primary Physician: Lino Ansari Jr., MD Finalized Date/Time: 04/01/21 14:49:37 Pt. Name: RIC SANCHEZ /Sex: 1960 Male Med Rec #: [id number] Physician: Lino Ansari Jr., MD Financial #: [id number] Pt. Type: O Room/Bed: / Admit/Disch: 04/01/21 14:14:58 - Institution: Case Times FTURO Entry 1 Patient Times In Room 04/01/21 14:35:00 Out Room 04/01/21 14:48:00 Procedure Times Start 04/01/21 14:41:00 Stop 04/01/21 14:44:00 Anesthesia Times Last Modified By: Rissa Mathias RN 04/01/21 14:48:36 Case Attendance FTURO Entry 1 Entry 2 Entry 3 Case Attendee Elan Peterson MD, Lino Mathias RN, Rissa Bullock [facility] Role Performed Surgeon - Primary Loft Worker Pile Driving - Primary Scrub - Primary Time In 04/01/21 14:35:00 04/01/21 14:35:00 04/01/21 14:35:00 Time Out 04/01/21 14:48:00 04/01/21 14:48:00 04/01/21 14:48:00 Procedure CYSTOSCOPY LOCAL WITH CYSTOSCOPY LOCAL WITH CYSTOSCOPY LOCAL WITH STENT REMOVAL(Left) STENT REMOVAL(Left) STENT REMOVAL(Left) Comments Last Modified By: Stew BAUM, Rissa Mathias RN, Rissa Mathias RN, Rissa Lawson 04/01/21 14:49:31 04/01/21 14:49:31 04/01/21 14:49:31 Surgical Procedures FTURO Entry 1 Procedure Description Procedure CYSTOSCOPY LOCAL WITH Modifiers Left STENT REMOVAL Surgeon Description CYSTOSCOPY W/ LEFT STENT REMOVAL Primary Procedure Yes Primary Surgeon Elan Peterson MD, Lino Goodson Start 04/01/21 14:41:00 Stop 04/01/21 14:44:00 Anesthesia Type Local Surgical Service Urology Wound Class 2 - Clean-Contaminated Last Modified By: Rissa Mathias RN 04/01/21 14:49:33 General Case Data FTURO Pre-Care Text: Classifies surgical wound, implements aseptic technique, initiates traffic control Entry 1 Case Information OR URO 1 FT Case Level None Wound Class 2 - Clean-Contaminated Specialty Urology Preop Diagnosis KIDNEY STONE Postop Same As Preop Yes Postop Diagnosis KIDNEY STONE Outcomes Met? Yes Last Modified By: Rissa Mathias RN 04/01/21 14:44:05 Post-Care Text: The patient is free from signs and symptoms of infection EU IntraOp - FTURO Pre-Care Text: Implements protective measures prior to operative or invasive procedure, confirms identity before the operative or invasive procedure, verifies operative procedure, surgical site, and laterality Entry 1 EU Perioperative Protocols Procedure(s) CYSTOSCOPY LOCAL WITH Patient Identity Birthday, ID Band Check STENT REMOVAL(Left) Verified (select at least 2): Consents / H and P HandP, Surgery/Procedure Operative Site N/A Verified Consent Marking Verified Surgical Site Yes Laterality Verified n/a Verified Procedure Verified Yes Correct Patient Yes Position Verified Availability Equipment, Medication Time Out Elan Peterson MD, Lino Goodson, Verified (If Participants Rissa Mathias RN, Applicable) Светлана Bullock CST Time Out Complete 04/01/21 14:40:00 Allergies Reviewed? Yes Allergies Reviewed Self/Patient With Body Position Supine Prep Area PENIS Prep Agents Betadine Solution Skin. Condition Unable to Visualize Additional None Specimens Collected Vitals - EU Blood Pressure 131/81 Pulse 78 bpm Respirations 16 br/min SPO2 EBL 0 IandO - EU Total Intake 0 mL Total Output 0 mL Outcomes Met? Yes Last Modified By: Rissa Mathias RN 04/01/21 14:43:33 Post-Care Text: The patient is free from signs and symptoms of injury caused by extraneous objects General Comments: PATIENT STATES OK TO USE BETADINE, IODINE WAS INJECTABLE THAT IS ALLERGIC TO. HAS TOLERATED BETADINE IN PAST. [employer] MISTRY Implant Log FTURO Pre-Care Text: Records devices implanted during the operative or invasive procedure Entry 1 Implant/Explant Explant Implant Identification Description LEFT URETERAL STENT Usage Data Outcomes Met? Yes Last Modified By: Rissa Mathias RN 04/01/21 14:43:51 Post-Care Text: The patient is free from signs and symptoms of injury caused by extraneous objects Sign Out FTURO Entry 1 Before Patient Leaves OR Nurse verbally Yes Nurse verbally n/a confirms with the confirms with the team the name of team that the procedure(s) instrument, sponge, recorded and needle counts are correct (or N/A) Nurse verbally n/a Nurse verbally Yes confirms with the confirms with the team how the team whether there specimen is labeled are any equipment (including patient problems to be name), if applicable addressed Sign Out Complete 04/01/21 14:44:00 Last Modified By: Rissa Mathias RN 04/01/21 14:45:13 Case Comments Finalized By: Rissa Mathias RN Document Signatures Signed By: Rissa Mathias RN 04/01/21 14:49 [facility] Main OR Intraoperative Record IntraOp Document Type FT Summary Primary Physician: Lino Ansari Jr., MD Finalized Date/Time: 04/01/21 10:59:15 Pt. Name: LAURARIC D.O.B./Sex: 1960 Male Med Rec #: [id number] Physician: Lino Ansari Jr., MD Financial #: [id number] Pt. Type: A Room/Bed: [place] [address] Admit/Disch: 03/25/21 11:46:55 - 03/25/21 18:05:00 Institution: Case Times FT Entry 1 Patient Times In Room 03/25/21 14:43:00 Out Room 03/25/21 15:43:00 Procedure Times Start 03/25/21 14:58:00 Stop 03/25/21 15:34:00 Anesthesia Times Start 03/25/21 14:43:00 Stop 03/25/21 15:43:00 Last Modified By: Marci Ibarra CST 04/01/21 10:59:13 General Comments: 03/29/21 Chart opened to review and send charges Mc MARSHALL Case Attendance FT Entry 1 Entry 2 Entry 3 Case Attendee Abe [facility]OVE CENTERAsuncion Jr., MD, Donald L Slusher FRAME TABLE OPERATOR, Anjana Palacios Role Performed Anesthesiologist Surgeon - Primary Scrub - Primary Fire Production Operator Time In 03/25/21 14:43:00 03/25/21 14:43:00 03/25/21 14:43:00 Time Out 03/25/21 15:41:00 03/25/21 15:43:00 03/25/21 15:43:00 Procedure CYSTOSCOPY RETROGRADE CYSTOSCOPY RETROGRADE CYSTOSCOPY RETROGRADE STENT INSERTION(Left), STENT INSERTION(Left), STENT INSERTION(Left), CYSTOSCOPY W/ HOMIUM CYSTOSCOPY W/ HOMIUM CYSTOSCOPY W/ HOMIUM LASER(Left) LASER(Left) LASER(Left) Comments Dr. Chan supervising Last Modified By: Zack RN, Julio Corbett RN, Nadia Corbett RN, Nadia Elizabeth 03/26/21 15:27:43 03/25/21 15:52:59 03/25/21 15:52:59 Entry 4 Entry 5 Entry 6 Case Attendee Aric BAUM, Nadia Dixon RN, Alba Ibarra Role Performed Loft Worker Pile Driving - Primary Crop Research Scientist Real Estate Agent/Broker Time In 03/25/21 14:43:00 03/25/21 14:43:00 03/25/21 14:53:00 Time Out 03/25/21 15:43:00 03/25/21 15:43:00 03/25/21 15:43:00 Procedure CYSTOSCOPY RETROGRADE CYSTOSCOPY RETROGRADE CYSTOSCOPY RETROGRADE STENT INSERTION(Left), STENT INSERTION(Left), STENT INSERTION(Left), CYSTOSCOPY W/ HOMIUM CYSTOSCOPY W/ HOMIUM CYSTOSCOPY W/ HOMIUM LASER(Left) LASER(Left) LASER(Left) Comments Student : Christa Rodriguez present during procedure Last Modified By: Aric RN, Nadia Corbett RN, Nadia Corbett RN, Nadia Elizabeth 03/25/21 15:52:59 03/25/21 15:52:59 03/25/21 15:52:59 Perioperative Protocols FT Pre-Care Text: Implements protective measures prior to operative or invasive procedure, confirms identity before the operative or invasive procedure, verifies operative procedure, surgical site, and laterality Entry 1 Procedure(s) CYSTOSCOPY RETROGRADE Patient Identity Birthday, Blood Band, STENT INSERTION(Left) Verified (select at Patient Participation least 2): Consents / H and P Anesthesia Consent, Operative Site Present Verified HandP, Surgery/Procedure Marking Verified Consent Surgical Site Yes Laterality Verified Yes Verified Procedure Verified Yes Correct Patient Yes Position Verified Availability Equipment, Implant, Prep Dry n/a Verified (If Medication, X-ray Applicable) PreOp Antibiotic Yes Time Out Abe PERKINS, Asuncion C, Given Participants Elan Peterson MD, Lino Goodson, Wilver NOLASCO, Anjana Palacios, Aric BAUM, Nadia Elizabeth, Zack RN, Julio L Time Out Complete 03/25/21 14:55:00 Outcomes Met? Yes Last Modified By: Nadia Corbett RN, I 03/25/21 15:16:06 Post-Care Text: The patient is free from signs and symptoms of injury caused by extraneous objects Allergy Information FT Pre-Care Text: Verifies allergies Entry 1 Allergies Reviewed? Yes Allergies Reviewed Self/Patient With Outcomes Met? Yes Last Modified By: Nadia Corbett RN, I 03/25/21 13:53:22 Post-Care Text: The patient received appropriate medication(s) safely administered during the perioperative period Surgical Procedures FT Entry 1 Entry 2 Procedure Description Procedure CYSTOSCOPY RETROGRADE CYSTOSCOPY W/ HOMIUM STENT INSERTION LASER Modifiers Left Left Surgeon Description LEFT CYSTOSCOPY Homium Laser RETOGRADE, URETEROSCOPY, HOMIUM LASER, STONE EXTRACTION AND STENT PLACEMENT Primary Procedure Yes No Primary Surgeon Elan Peterson MD, Lino Ansari Jr., MD, Lino Goodson Start 03/25/21 14:58:00 03/25/21 14:58:00 Stop 03/25/21 15:34:00 03/25/21 15:34:00 Anesthesia Type General General Surgical Service Urology Urology Wound Class 2 - Clean-Contaminated 2 - Clean-Contaminated Last Modified By: Nadia Corbett RN, RN, Dana I 03/25/21 15:48:37 03/25/21 15:53:34 General Case Data FT Pre-Care Text: Classifies surgical wound, implements aseptic technique, initiates traffic control Entry 1 Case Information OR OR 1 FT Case Level Level 3 Wound Class 2 - Clean-Contaminated Specialty Urology ASA Class 2 Preop Diagnosis URETERAL STONE Postop Same As Preop Yes Postop Diagnosis URETERAL STONE Outcomes Met? Yes Last Modified By: Nadia Corbett RN, I 03/25/21 15:16:16 Post-Care Text: The patient is free from signs and symptoms of infection Skin Assessment (Pre Procedure) FT Pre-Care Text: Im (more content not included)... [facility] Main OR Preoperative Recordo n 04-01-2021 Main OR Preoperative Record Holding Area Document Type FTURO Summary Primary Physician: Lino Ansari Jr., MD Finalized Date/Time: 04/01/21 14:40:21 Pt. Name: RIC SANCHEZ /Sex: 1960 Male Med Rec #: [id number] Physician: Lino Ansari Jr., MD Financial #: [id number] Pt. Type: O Room/Bed: / Admit/Disch: 04/01/21 14:14:58 - Institution: Case Times Holding FTURO Pre-Care Text: Verifies consent for planned procedure, identifies individual values and wishes concerning care, includes family members in perioperative teaching Secures patient's records' belongings, and valuables, maintains patient's dignity and privacy, and maintains patient confidentiality Entry 1 In Holding 04/01/21 14:19:00 Outcomes Met? Yes Last Modified By: Jc Pro LPN 04/01/21 14:19:46 Post-Care Text: The patient participates in decisions affecting his or her perioperative plan of care The patient's right to privacy is maintained Surgery Checklist FTURO Entry 1 Patient Birthday, ID Band Procedure History and Physical, Identification: Check, Patient Verification: Surgical Consent, With Participation Patient NPO after Midnight: n/a Personal Items: Dentures Personal Items glasses Complaints of Pain: No Comment: Skin Integrity Red Vitals - EU Blood Pressure 131/81 Pulse 78 bpm Respirations 16 br/min SPO2 RN Reviewed Yes Last Modified By: Rissa Mathias RN 04/01/21 14:40:20 General Comments: Temp 35.9 Finalized By: Rissa Mathias RN Document Signatures Signed By: Jc Pro LPN 04/01/21 14:24 Rissa Mathias RN 04/01/21 14:40 [facility] Operative Reporton Operative Report Patient: MARTÍNEZ SANCHEZ Age: 60 years Sex: Male : 1960 Associated Diagnoses: None Author: Elan Peterson MD, Lino Goodson Procedure Operative Information Details: Date/ Time: 04/01/2021 14:48:00. Pre-Op Dx: Foreign Body in Bladder - T19.1XXA. Post-Op Dx: Same. Anesthesia Type: Local. Procedure: Local Cystoscopy with Stent Removal. Complications: None. Risks/Benefits/Informe d Consent: Surgical risks, benefits, details of the procedure have been explained to the patient, Full informed consent has been obtained. Intraoperative Information Prepped: The patient was placed in supine position, The patient was prepped with the Betadine solution. Anesthesia: 2% Xylocaine Jelly per urethra. Procedure: Cystoscopy and Left Stent Removal, The flexible Cystoscope was passed in retrograde fashion into the bladder without difficulty, The bladder was viewed in entirety and found to be without tumors or stones, Mild inflammation was seen surrounding the orifice with the stent seen protruding from it, The stent was then grasped and removed in its entirety. Specimens Removed: None. Devices Implanted: None. Postoperative Information Discharge: The patient tolerated the procedure well and was subsequently discharged home. [facility] Comment on above: Result Comment: Elec tronically Signed By: Elan Peterson MD, Lino Goodson\.br\Date and Time Signed: 04/01/21 14:48 EDT Calculus Analysison 03-31-20 Calcium oxalate dihydrate Infrared spectroscopy (Stone) [Mass fraction] 20 % Invalid Interpretation Code [facility] Comment on above: Performed By: #### 1 [id number] ####[facility] [id number] [place] [address] Calcium oxalate monohydrate (Stone) [Mass fraction] 80 % Invalid Interpretation Code [facility] Comment on above: Performed By: #### 1 [id number] ####[facility] [address] [place] [address] Color (Stone) Brown Invalid Interpretation Code [facility] Comment on above: Performed By: #### 1 [id number] ####[facility] [address] [place] [address] Composition Comment Invalid Interpretation Code [facility] Comment on above: Result Comment: Perc entage (Represents the % composition) Performed By: #### 1 [id number] ####[address] [place] [address] Disclaimer: Comment Invalid Interpretation Code [facility] Comment on above: Result Comment: This test was developed and its performance characteristics determined by [facility]. It has not been cleared or approved by the Food and Drug Administration. Performed at: [facility] Stone Analysis [address] [place] [address] [place], [place] [id number] MD Maria Elena Trotter Performed By: #### 1 [id number] ####[address] [place] [address] Laboratory comment Gordo (Report) Comment Invalid Interpretation Code [facility] Comment on above: Result Comment: Omer garay questions regarding Calculi Analysis [facility] at: [phone]. Performed By: #### 1 [id number] ####[address] [address] Please Note: Comment Invalid Interpretation Code [facility] Comment on above: Result Comment: Calc kat report will follow via computer, mail or endless track vehicle supervisor delivery. Performed By: #### 1 [id number] ####[address] [place] [address] Size (Stone) [Entitic vol] 2x3 Invalid Interpretation Code [facility] Comment on above: Result Comment: Mult iple pieces received. Dimensions of the largest piece reported. Performed By: #### 1 [id number] ####[address] [place] [address] Specimen source subject Nom Comment Invalid Interpretation Code [facility] Comment on above: Result Comment: Not provided Performed By: #### 1 [id number] ####[address] [place] [address] Stone Photo Comment Invalid Interpretation Code [facility] Comment on above: Result Comment: Phot ograph will follow under a separate cover Performed By: #### 1 [id number] ####[address] [place] [address] Weight (Stone) 14 mg Invalid Interpretation Code [facility] Comment on above: Performed By: #### 1 [id number] ####[facility] [address] [address] [employer] 03-31-2021 Forms [id number] 0CD:127 [facility] H&P Updateon 03-31-2021 H&P Update [id number] CD:127 [facility] Coding Summary.on 03-30-2021 Coding Summary. CD:[id number] Gh 0bWw+PGhlYWQ+CS9MVMFjV 44kdJNnoX5XL4bWGS5SNAJ IAWOPBY5LVS3xfCN4JWblJ 2VybiAv BurzfEFwCD95QSq9VPM3sK tuABkwkJ2wuLLjO7h8OqWe YQ26wS17NKayLGLuIrW8Wn ZpbjsgbWFy G1whLkVhfMLuNmk+PHRhYm xlIHdpZHRoPScxMDAlJyBz jGnjUQ8yLu2yTABdYHIszT xhcHNlOiBj j1drAENaMDnjWC1poEnmG3 AniAU7HUIbm1b1Nf55xGI+ FUGsJMX7bPyyPSfgr738Ns Cxm8kwBKA5 nZEhJQipHMB4Z70lp0L4OM JsQEAmZTW7fMZ9iY5zfNmx bxcoV6SaiLGhYfT9JNS8yC GylL7hoRkg axtdnX1oIsl+F88TOI1LYN KCJL5LLzw3X8YwGgbzyKH+ YD28SYZeWM13xANsaGIfl2 nhmTp6PmJz QWQtRVS2sTdzUEszl3ZiZA ZzH00bwGMvd7A6KRVeaKsy fKWlLxQqcQC3cH6vNXjrtz lwj8zttcvc Xqyxj3kwlm60lW89E35mKZ igGPZeSPA2ZFAhSQWldRfk by0szK0rMf8+MViua0oft3 hftUu1FiVd MPUlqdUngAczFXT2v1EfDg 56D8QviYzjk1HcCnz7vj19 eGIda4Z6kPU7OFioUCFofY 8cCGwpFbK5 AVKsMdEnaF84wSHhUBgaRz 2ctVdjdAhdGH0lZOMdjsin EVKifE1uAVDpgNZwaVcbCB 4wNTBpbjtm v050OdSeHYY0KJGelHBqG9 EtwM2kAlTrUQVcZAHmM4Rc bPTtIEqkN551IQrrEnR1LB QyhaYdG2Nr TRHszXxhQbK3a2H4Ie7Zk5 PrhvubKYZ7IHouNLSfJlG2 RjTuOcH4F5OeIqb6EDCquF zgZR8nX2Cw AOQicaodipncbQF4UIUrYK KdhK74gLQoILshJp0oz4Q6 r312ZBTgXGGpbD54Vd7hnQ ogMTBwdCBU dQ6akgsuw5fmzjexKhQtVP UwKQg7FNa7RALeiQzcOhIj ONW1TpJ1UJD4uTQnrS9vrG qudxzuxQ2u Oyc+R42btG8dZZA0HJE7gq bcXNNvcwDkTN34HB58D9Sm PjwvdGFibGU+PGRpdiBzdH giZN0rEsOu x7itt4PyNRoeR8IoOCRzJE aoFxy0TYMuLYD6jME7yR6w XMIfWCsgj9G1jXH6H9Tkee Kxvh3ag8zu MYSrRMwoN89muRKbo8J7XA JkvIY9CPIjtQgxVePdkV72 Oyc+ALLgfOsio6JkMgwea1 qew2fqgBj5 YaJwZIAvorLizZctHDN1f5 LeDt19Q59fFXfqAGBaFCHm MRXoBJKmyPlrwj9qyQ7jQg 8+PGNvbCB3 hYX2sR5sHWRyGnD6MSunK4 83PuZzeENfDlwwy2yiu1iq lYi0PpXrGQVgkvQlaDrbGA V9m7UmUy34 H75bYTzuCMTbWSPhALHbGL WosHqpmz8raZ8mJz1+PC9j d5ajgr56vX56yAI+PHRkIH J2zXgrIIaq FTJkfX7kPVhiJfC8GQBzWs GqrC23pGDzIUmlVe8roEqj wHybGZ5lBXMglkovo160Wj Ona5sfQNGf oZYxCMlcUZO0I02tn8A1JZ TjCRJmTDU9zWH0uU5qzNqn bjogbGVmdDsgdmVydGljYW peSKouK508 IHRvcDsnPlBhdGllbnQgTm FbVFc3N3PiDyi0UENnfJbj IQ2mkPXbIEpkYn8ncFqdxQ xnKQ1oRNKp lzypz086SlUuk9igOUFrxR SgTEsoBKD1I80sw1H2VKBh QQCpTCE8aQB5fB8lfHxfky ogbGVmdDsg ajLhcNxeCRhzUMkbN875WI RvcDsnPkJpcnRoIERhdGU6 AC01HT18wFMaa9X7eOJ6Y7 BhZGRpbmct leydbGW9QSNoYRFosT56Ld 2rbLwvZr5gDIVsWMI3LJNv pGVuN6KunW3hOpBuLZMtNS PuK1WrfZCq LNkkE416FGfjOzL7ALOpbt DxP2KlRRCgmPcjVrN4h5T6 Ma9TP7F7KO25IK93lIFbs6 G7yKN1B5Dq SHEwbjkvvnkisWC2ZINjJH PyvD29Vf5uyEofEe2sWBQt PDB3DOLxrPZlA1OipC1fXd AjMDAwMDAw G5JdpVJkTArqK760AYuuLx M4TBFcqpNcJ1PlKMGdrFqc KoV1a3F2Ty0LIPj2SJ06OD 81bYKef4O1 oTB4T1DqQIUvntmiqdowdR K9JKEkZIOjeW19Tf1jiMxf Tn4uJXBpTCA8BWGdtWOtQ9 YcxQ0gZoTm SREmERUeQ0TfwMQqZAqvG2 73RKteAoC3BMIpokYqV4Cd YHMkfKvjOcC6s0N3Lr6VEO PxZF93WEQ0 bVA9ZV32WT05Q4CpUjrjiA FibGU+PHRhYmxlIHdpZHRo DEnbXSCuOoShhEqoKD8fGk 9yZGVyLWNv dHldiVTxViNqc0uyANUfUG xjUS8haTgcO8JfeSX6ALQx f1e9Vq23J09wG7AmyMH+PG WfvTN6aMA6 tF9jHnVjXdQ9JJumM293Fx NprYLcGivmj8gyr6szuNl4 ZmG8ORMrqdYgyPhjSCN1a8 HlRe68U91a IHdpZHRoPSIxNSUiIHZhbG nabl3gvW0wGg0+PGNvbCB3 lBD1pU8nCmLmCbS8BWyaJ7 49InRvcCIv Nwqpd5yrq3prmQa0BzKzVB XlzpNslIbdQDW1y0CwXd39 K1NkzJdbq7HnQus5pe79cV Nbd0N9qOS1 F2IdCKPnzxwxgGSdcCmjNE 2aAMDpacsqDWXbpK7ePKDe F0p5StKtQpL2MNjsD7Ctsw V2CBTocSGj HBxtEUE4B89va6Q4SHMdPZ FwRCQ6fOG2zN9yhKxqnnej bGVmdDsgdmVydGljYWwtYW egU431RCHo xNdwEUXuiM4mXCXedZYhlY cgQQ9iNSFssrqmRc4GWV8d RVvKTNeREcl6K3NsZhz9NU CheZmzWN8r aPJhLFgrYi4gqYtthCgkNS 8uUCGjqlftGOKzoD8eOJHm pVGhqHzaMC8fZPVwieumh5 52InAhGUZ1 OOJtrZPdO8FnaV2hRiEfRV SyLZUzV8MbaGNnDBwrX146 SLimPyX8PKFmdbUtK5FzRA FsaWduOiB0 y4I0Uv6tYj4eDp0sFPMmOT 33NR85jJFiy6N4fER9H1Vc OZDewtnjgzrkrTX1UIPqQE ZwyD90dAAe BNlbLr5rq0A5m034YIHhQS VvsX41Oc7bhRysEIFyiWUX dO2yjvrqd6arxeitQoZcUA PwVHs4WDe8 ATAvjQasEeOsUUC0AhM7NX Y4eVVtgJ3rnLppzizsyD9g Oyc+GUhiATZqqzV4S0CaWf a6BJFonQrt LI6sgZEaOCrtYq7kmYuecT jeBR2fEZZanohfZMSwbY5c VPPwyUByuIsqMR2pKSArdl nfn849CpAf TXQ4TNZsvYJnG7QajE3tFg XkKGBiESTdX5WfqNBvOFai Y599MZigGsA9RTQhgkZpI8 FsLWFsaWdu EiT4u0C9Zm1JPWhsMX09EY 11yJQoh4H6gYZ2P7LlVKHh dwwemhazbMN3MAImSVGqiH 47cGFkZGlu Ta6ms7N5r599RCNsLJWeoP 63Ex2tqYvmAXUknNWXjP0m vhuem6uppqvoFlGcCLLlFO v7VUy7PPXh jPtuCySkKNE8UtG1MSG6uP EbsL3psNeepchpiQ8eVse+ FB8nySicfU5eoQ9TKN4iJK RheSBTdXJn GCO8FN18VT66B9EvIoruoA FibGU+PHRhYmxlIHdpZHRo IWmiSHRpIrOkbFhuLJ7uXi 9yZGVyLWNv nHaczIFgYzIse0thDNGeGQ duTN6iaIjvD3VdzTD2ZUUe g4c4Kn17L72aD3MvjSF+PG TkeJU2rDN7 xT1tZiNrSwD9CSitY550Ef YozKHeUfabm7voz2xeiYw7 YsXtANPvsnRsyAdbVDJ8f6 GfCj77Z49y IHdpZHRoPSIyMCUiIHZhbG dzvb3jhW3gBf7+PGNvbCB3 pCL6zV4cVvZdEkP5CWplZ3 49InRvcCIv MnwwH78mR3TrvXK+PHRyPj t7IWFqmVllIL1euAMyULbm Jt9pTAN9HaLkAhTzCCmyX3 BhZGRpbmct gsfpeHZ9XATjRZTlzD07Gj 9caSwiHl9zWXYxHFO6JKBe nIHsC9OuqK7rAxIbKKIjGU EhQ0OziONe BGmiN784QDwjVcY5GXEgfx McV7JlYGPtfBeqFwH8k3C2 Lj1HbCzdtNUqJP6aWoXsKV z3L2FgLhz1 PVMedRizNH6hvVVhCYdpJb 3icUsvhIdoTA9tCFFddyzs m977WbKwv5svSTLbjSXwYZ prTME7R57u i9L5WNIcUMSjPUH4uDE5zM 1hbGlnbjogbGVmdDsgdmVy sJlhTGouBXfkZ132KGXmmW snPkZJTjo8 C1HgWkx0QGZyjOghAF2puA MrUVyzCk9uvKyoeCnrJX7p QCXiwkdxz340WrMeu7afSX EwcHQgVGlt DVV7M10td2O6TETfQRMrLX T5bCZ8fY9xxGrjwluocBHj dDsgdmVydGljYWwtYWxpZ2 46IHRvcDsn Rr9QTjl0N9UnMje2IJWapM caCE8hoJJyDVfaZf7nxVfj xRfyRH4oWFBqsnnur649Ti Jpc1qgMOCi gBEeSYkgMGL5B59dt0M6YL HcFZOzCSQ3fGP0eE7gzXiu bjogbGVmdDsgdmVydGljYW qeWMswM901 IHRvcDsnPlBheWVyOjwvdG Q+YI21ag33Z3KeKbxjNlt1 NYGmAGM5sMY2kF8nAKPcDX vww7S0gMR1 J2Jv (more content not included)... [facility] Postoperative Documentson Postoperative Documents [id number]#1. 00CD:127 [facility] Pre-Certification Formon Pre-Certification Form [id number]#1.0 0CD:127 [facility] Progress Note-Physicianon Progress Note-Physician Patient: RIC SANCHEZ Age: 60 years Sex: Male : 1960 Associated Diagnoses: None Author: Deniz Chan MD Postoperative Information Post Operative Note: Post Anesthesia Care Unit. Anesthetic utilized: General. Health Status Allergies: Allergic Reactions (All) Severity Not Documented Baclofen- Unknown. Celecoxib- Unknown. Iodine- Unknown. Problem list: All Problems Anxiety / SNOMED CT 66962905 / Confirmed Physical Examination Intake and Output adequate hydration Measurements from flowsheet : Measurements 03/25/2021 12:34 EDT Height/Length Measured 177.0 cm Weight Measured 85.5 kg 03/25/2021 12:25 EDT Height/Length Measured 177.0 cm (Modified) Weight Dosing 85.5 kg Shirley Body Weight Calculated 72.276 kg (Modified) BSA Measured 2.05 m2 Body Mass Index Measured 27.29 kg/m2 Weight Measured 85.5 kg 03/24/2021 8:35 EDT Height/Length Dosing 178.0 cm Weight Dosing 84.0 kg 03/24/2021 8:35 EDT Height/Length Measured Date\Time Correction Height/Length Dosing 177.8 cm Shirley Body Weight Calculated Date\Time Correction Pain assessment: Self-reports no pain. General: Alert and oriented, No acute distress. HENT: Oral mucosa is moist, dentition unchanged. Respiratory: Respirations: Are within normal limits. Pattern: Regular. Cardiovascular: Normal rate. Neurologic: Alert, Oriented. Review / Management Lines and Tubes: Peripheral catheter. ECG interpretation: Within normal limits. Condition: Stable. Assessment Anesthetic outcome No anesthetic complications noted. Adequate pain relief. No Complaint of nausea and vomiting. Plan Transfer/ Discharge: Patient can be discharged from PACU when criteria met, Patient can be discharged from anesthesia care. Condition stable. [facility] Comment on above: Result Comment: Elec tronically Signed By: Dustin PARDO, Deniz\.br\Date and Time Signed: 03/29/21 16:40 EDT Consent for Anesthesiaon Consent for Anesthesia [id number]#1.0 0CD:127 [facility] Consent for Procedure/Surger yon 03-26-2021 Consent for Procedure/Surgery [id number]#1.0 0CD:127 [facility] Discharge Instructionson Discharge Instructions [id number]#1.0 0CD:127 [facility] IntraOperative Documentson 1 IntraOperative Documents [id number]#1.0 0CD:127 [facility] IntraOperative Documents [id number]#1.0 0CD:127 [facility] Preoperative Documentson Preoperative Documents [id number]#1.0 0CD:127 [facility] Capillary Glucose POCon 03-12 Glucose [Mass/Vol] 134 mg/dL High 55-99 [facility] Comment on above: Performed By: #### 2 [id number] ####[facility] [address] [place] [address] Consent for Treatmenton 03-12 Consent for Treatment [id number]#1.0 0CD:127 [facility] ECG 12-Leadon 03-25-2021 ECG 12-Lead [id number]#1.0 0CD:127 [facility] Immunization Recordson 03-25 Immunization Records [id number]#1.0 0CD:127 [facility] Inpatient Patient Summaryon 03-25-2021 Inpatient Patient Summary [address] [address] [facility] Clinical Discharge Instructions PERSON INFORMATION Name: RIC SANCHEZ [facility]#:[id number] PHYSICIANS Admitting Physician: Lino Ansari Jr., MD Attending Physician: Lion Ansari Jr., MD PCP: CHRISTOPHER PEARCE DO Discharge Diagnosis: Hydronephrosis with renal and ureteral calculus obstruction Comment: PATIENT EDUCATION INFORMATION Instructions: Ikaj-Wwba-ns Utereroscopy,Lithotrip sy, Stone Extraction, Stent Placement (Custom); Cystoscopy; Post Op Patient Instructions - FT (Custom) (Custom) Medication Leaflets: Follow up: With: Address: When: Lino [facility], [address] [place] [address] Business (1) Within 1 week Comments: My office will schedule cystoscopy with stent extraction. MEDICATION LIST New Medications [id number], [address] [place], [place] [id number], [phone] acetaminophen-oxycodon e (Percocet 5 mg-325 mg oral tablet) 1 Tablets By Mouth every 6 hours as needed Pain 8-10. Refills: 0. cephalexin (Keflex 500 mg Cap) 1 Capsules By Mouth every 12 hours for 5 Days. Refills: 0. hyoscyamine (Levsin 0.125 mg SL Tab) 1 Tablets By Mouth 4 times a day as needed spasm. Refills: 0. Medications to Continue with No Changes Other Medications acetaminophen-hydrocod one (acetaminophen-hydroco done 325 mg-5 mg oral tablet) 1 Tablets By Mouth every 6 hours as needed as needed for pain. alprazolam (Xanax 0.5 mg Tab) 1 Tablets By Mouth 3 times a day as needed for anxiety. ketorolac (ketorolac 10 mg Tab) 1 Tablets By Mouth every 4 hours as needed for pain. metformin (metformin 1000 mg oral tablet) 1 Tablets By Mouth every day. multivitamin (Multi Vitamin+) 1 tab By Mouth every day. pioglitazone (pioglitazone 30 mg Tab) 1 Tablets By Mouth every day. Comment: [facility] Main OR PACU I Recordon 03-12 Main OR PACU I Record PACU Phase I Document Type FT Summary Primary Physician: Lino Ansari Jr., MD Finalized Date/Time: 03/25/21 18:09:07 Pt. Name: RIC SANCHEZ/Sex: 1960 Male Med Rec #: [id number] Physician: Lino Ansari Jr., MD Financial #: [id number] Pt. Type: A Room/Bed: Admit/Disch: 03/25/21 11:46:55 - Institution: Case Times PACU I FT Pre-Care Text: Identifies barriers to communication and implements measures to provide psychological support Develops individualized plan of care, and ensures continuity of care Maintains patient's dignity and privacy, and maintains patient confidentiality Identifies and reports philosophical, cultural, and spiritual beliefs and values Identifies individual values and wishes concerning care Implements aseptic technique, and administers prescribed antibiotic therapy and immunizing agents as ordered Evaluates postoperative tissue perfusion Implements thermoregulation measures, and monitors body temperature Evaluates postoperative respiratory status Evaluates postoperative cardiac status Evaluates postoperative neurological status Assesses pain control, collaborated in initiating patient-controlled analgesia and implements alternative methods of pain control Verifies allergies, administers prescribed medications and solutions, evaluates response to medications Entry 1 In PACU I 03/25/21 15:45:00 Discharge from PACU 03/25/21 16:15:00 I Outcomes Met? Yes Last Modified By: Anabela Yeh RN 03/25/21 17:33:08 Post-Care Text: The patient demonstrates knowledge of the expected response to the operative or invasive procedure The patient's care is consistent with the individualized perioperative plan of care The patient's right to privacy is maintained The patient's value system, lifestyle, ethnicity, and culture are considered, respected, and incorporated into the perioperative plan of care The patient participates in decisions affecting his or her perioperative plan of care The patient is free from signs and symptoms of infection The patient has wound/tissue perfusion consistent with or improved from baseline levels established preoperatively The patient is at or returning to normothermia at the conclusion of the immediate postoperative period The patient's respiratory function is consistent with or improved from baseline levels established preoperatively The patient's cardiovascular status is consistent with or improved from baseline levels established preoperatively The patient's cardiovascular status is consistent with or improved from baseline levels established preoperatively The patient demonstrates and/or reports adequate pain control throughout the perioperative period The patient received appropriate medication(s), safely administered during the perioperative period Acuity Level PACU I FT Entry 1 Start Time 03/25/21 15:45:00 Stop Time 03/25/21 16:15:00 Acuity Level Acuity Level I Last Modified By: Anabela Yeh RN 03/25/21 17:33:31 Finalized By: Anabela Yeh RN Document Signatures Signed By: Anabela Yeh RN 03/25/21 18:09 [facility] Main OR PACU II Recordon Main OR PACU II Record PACU Phase II Document Type FT Summary Primary Physician: Lino Ansari Jr., MD Finalized Date/Time: 03/25/21 18:08:49 Pt. Name: RIC SANCHEZ/Sex: 1960 Male Med Rec #: [id number] Physician: Elan Peterson MD, Lino Goodson Financial #: [id number] Pt. Type: A Room/Bed: [facility] Admit/Disch: 03/25/21 11:46:55 - Institution: Case Times PACU II FT Pre-Care Text: Identifies barriers to communication and implements measures to provide psychological support and determines knowledge level Develops individualized plan of care, and ensures continuity of care Maintains patient's dignity and privacy, and maintains patient confidentiality Identifies and reports philosophical, cultural, and spiritual beliefs and values Identifies individual values and wishes concerning care administers prescribed antibiotic therapy and immunizing agents as ordered, Evaluates postoperative tissue perfusion Implements thermoregulation measures, and monitors body temperature Evaluates postoperative respiratory status Evaluates postoperative cardiac status Evaluates postoperative neurological status Assesses pain control, collaborated in initiating patient-controlled analgesia and implements alternative methods of pain control Verifies allergies, administers prescribed medications and solutions, evaluates response to medications Entry 1 In PACU II 03/25/21 16:20:00 Discharge from PACU 03/25/21 18:05:00 II Outcomes Met? Yes Last Modified By: Beatriz Blankenship RN 03/25/21 18:08:47 Post-Care Text: The patient demonstrates knowledge of the expected response to the operative or invasive procedure The patient's care is consistent with the individualized perioperative plan of care The patient's right to privacy is maintained The patient's value system, lifestyle, ethnicity, and culture are considered, respected, and incorporated into the perioperative plan of care The patient participates in decisions affecting his or her perioperative plan of care. The patient is free from signs and symptoms of infection The patient has wound/tissue perfusion consistent with or improved from baseline levels established preoperatively The patient is at or returning to normothermia at the conclusion of the immediate postoperative period The patient's respiratory function is consistent with or improved from baseline levels established preoperatively The patient's cardiovascular status is consistent with or improved from baseline levels established preoperatively The patient's neurological status is consistent with or improved from baseline levels established preoperatively The patient demonstrates and/or reports adequate pain control throughout the perioperative period The patient received appropriate medication(s), safely administered during the perioperative period Finalized By: Beatriz Blankenship RN Document Signatures Signed By: Beatriz Blankenship RN 03/25/21 18:08 [facility] Main OR Preoperative Recordo n 03-25-2021 Main OR Preoperative Record PreOp Document Type FT Summary Primary Physician: Lino Ansari Jr., MD Finalized Date/Time: 03/25/21 15:55:27 Pt. Name: RIC SANCHEZ /Sex: 1960 Male Med Rec #: [id number] Physician: Lino Ansari Jr., MD Financial #: [id number] Pt. Type: A Room/Bed: Admit/Disch: 03/25/21 11:46:55 - Institution: Case Times PreOp FT Pre-Care Text: Verifies consent for planned procedure, identifies individual values and wishes concerning care, includes family members in perioperative teaching Entry 1 Patient Times. In Pre Surgery 03/25/21 12:05:00 Out Pre Surgery 03/25/21 14:40:00 Outcomes Met? Yes Last Modified By: Nadia Corbett RN, I 03/25/21 15:55:22 Post-Care Text: The patient participates in decisions affecting his or her perioperative plan of care Finalized By: Nadia Corbett RN, I Document Signatures Signed By: Nadia Corbett RN, I 03/25/21 15:55 [facility] Monitor Recordon 03-25-2021 Monitor Record [id number]#1. 00CD:127 [facility] Operative Reporton Operative Report Patient: MARTÍNEZ SANCHEZ Age: 60 years Sex: Male : 1960 Associated Diagnoses: None Author: Lino Ansari Jr., MD Postoperative Information Procedure: Hydronephrosis with left ureteral calculus Date/ Time: 03/25/2021 15:42:00 Preoperative Diagnosis: Hydronephrosis with renal and ureteral calculus obstruction ([id number] N13.2, Discharge, Medical). Postoperative Diagnosis: Hydronephrosis with renal and ureteral calculus obstruction ([id number] N13.2, Discharge, Medical). Performed by: Lino Ansari Jr., MD. Findings: This patient is a 60-year-old gentleman with a history of left-sided flank pain and CT scan and evidence of a left ureteral calculus measuring 6 mm. He is being brought to the operating suite today for ureteroscopic stone extraction. The procedure, risk, alternatives, pre and postop care, expected outcomes and potential complications have been discussed with the patient preoperatively. These include but are not limited to bleeding, pain, infection, retained stone fragments, renal insufficiency, cardiovascular or respiratory problems among others. This patient was brought to the operating suite where he was placed under general anesthesia. He is carefully positioned in lithotomy. All pressure points were padded. SCDs were in place and were used throughout the case. Care was taken to position his leg so as not to damage his hip prosthesis. After routine prep and drape 2% Xylocaine gel was introduced into the urethra for local anesthesia. Endoscopic examination was performed using a standard cystoscope, videocamera and 30 degree lens. Evaluation revealed a normal-appearing urethra with a moderately enlarged and partially obstructing prostate gland. The bladder mucosa was unremarkable. There were no mucosal lesions. Clear yellow urine was noted effluxing from the right and left ureteral orifice. A retrograde pyelogram was performed on the left side using a #6 open ended catheter with injection of contrast under fluoroscopic guidance. This study revealed a filling defect in the lower portion of the left ureter consistent with the stone that was seen on his previous x-rays. A 0.035 flexible tip Glidewire was advanced up the ureter past the stone and into the renal pelvis. A semirigid ureteroscope was then passed over the Glidewire up to the portion of the ureter with a filling defect was identified. This turned out to be the stone that was previously mentioned. Using the ureteroscope a Margie stone basket was used to ensnare the stone however the stone could not be removed because of its shape and the narrowing of the ureter. The holmium YAG laser was readied and of 365 laser fiber was threaded through the ureteroscope. All laser precautions were followed. The laser was used to fragment the stone into multiple small pieces several of which were removed with a new Margie stone basket. The fragments were collected and sent to the lab for chemical analysis. A 6 Djiboutian double-J ureteral stent was then placed over the Glidewire and under fluoroscopic guidance appropriately positioned. The Glidewire was removed. The cystoscope was used to reevaluate the bladder to make sure that there was no trauma to the bladder or retained stone fragments. There being none the scope was removed. Patient was taken out of lithotomy and aroused anesthesia. He was transported to recovery in good condition. This patient will be discharged home after short stay in recovery. Home-going medications will include an oral antibiotic, and antispasmodic and something for pain. We will plan to see him in the office within the next week for removal of his ureteral stent. Is been instructed to limit his physical activity for the next 24 to 48 hours and to contact our office if he has any postoperative problems. Final diagnosis: Hydronephrosis and left distal ureteral calculus Procedure: Cystoscopy with retrograde pyelogram, ureteroscopic stone extraction with laser lithotripsy, ureteral stent placement left side Lino Ansari Jr., MD, FACS. Specimens Removed: Ureteral calculi. Prosthesis: 6 Djiboutian double-J ureteral stent. . Estimated Blood Loss: 0 ml. Complications: None. Anesthesia type: General. [facility] Comment on above: Result Comment: Elec tronically Signed By: Elan Peterson MD, Lino Goodson\.br\Date and Time Signed: 03/25/21 15:50 EDT Outpatient Surgery Discharge Instructionon 03-25-2021 Outpatient Surgery Discharge Instruction [place] [id number] Patient Discharge Instructions PERSON INFORMATION Name: RIC SANCHEZ Date of : 1960 Current Date: 03/25/2021 17:44:45 PHYSICIANS Admitting Physician: Lino Ansari Jr., MD Discharge Diagnosis: Hydronephrosis with renal and ureteral calculus obstruction RIC SANCHEZ has been given the following list of follow-up instructions, prescriptions, and patient education materials: PATIENT FOLLOW-UP INFORMATION Diet: Regular Discharge Activity: Resume normal activities in 24 hours Discharge Restrictions: No driving for 24 hrs Call Your Doctor For: Temperature above 101.5 degrees IF UNABLE TO CONTACT YOUR PHYSICIAN AND YOU FEEL IT IS AN EMERGENCY, GO TO THE NEAREST EMERGENCY ROOM OR CALL 911 I, RIC SANCHEZ, have received the attached patient education materials/instructions and have verbalized understanding: May we do a follow up call? Yes No I was present when discharge instructions were given Patient Signature Date Clinican/Nurse Signature ___ Date Follow up: With: Address: When: [facility], [address], [place], [place] [id number] Business (1) Within 1 week Comments: My office will schedule cystoscopy with stent extraction. Pharmacy Information: [facility] [place] You may receive a survey from Elen Aggarwal asking you to rate your care experience. Your feedback is important and will help us understand what we do well and how we can improve the quality of care we provide to you, your loved ones and our community. It?s an honor to serve you. Thank you for choosing [facility] HERE ARE THE MEDICATION CHANGES THAT OCCURRED DURING YOUR HOSPITAL STAY New Medications [id number], [address] [place], [place] [id number], [phone] acetaminophen-oxycodon e (Percocet 5 mg-325 mg oral tablet) 1 Tablets By Mouth every 6 hours as needed Pain 8-10. Refills: 0. cephalexin (Keflex 500 mg Cap) 1 Capsules By Mouth every 12 hours for 5 Days. Refills: 0. hyoscyamine (Levsin 0.125 mg SL Tab) 1 Tablets By Mouth 4 times a day as needed spasm. Refills: 0. Medications to Continue with No Changes Other Medications acetaminophen-hydrocod one (acetaminophen-hydroco done 325 mg-5 mg oral tablet) 1 Tablets By Mouth every 6 hours as needed as needed for pain. alprazolam (Xanax 0.5 mg Tab) 1 Tablets By Mouth 3 times a day as needed for anxiety. ketorolac (ketorolac 10 mg Tab) 1 Tablets By Mouth every 4 hours as needed for pain. metformin (metformin 1000 mg oral tablet) 1 Tablets By Mouth every day. multivitamin (Multi Vitamin+) 1 tab By Mouth every day. pioglitazone (pioglitazone 30 mg Tab) 1 Tablets By Mouth every day. PATIENT EDUCATION INFORMATION Instructions: [facility] [place], [place] Post-operative Instructions for Stent Placement There are no incisions or dressings to be concerned with, as the procedure was performed inside the urinary system. For 24 hours after surgery: ? No driving or operating machinery ? Do not make important decisions ? Do not consume alcohol, sleeping pills Stent Placement You may have a stent which spans the distance between your bladder and your kidney, allowing urine to pass through. It prevents blockage from swelling, kidney stones in ureter (tube connecting the kidney to the bladder), or scars. The presence of the stent may cause: ? Back or side pain, especially with urination ? Frequent or urgent urination ? Bladder pressure or pain ? Blood in urine You may pass stone debris or small blood clots, which is expected. Drinking plenty of water to dilute the urine may help. If there is a thread coming out of urinary channel, be careful not to accidently pull on this, as it is attached to the stent. The stent will most likely be removed in the office during a short procedure in which a scope is placed into the bladder, the stent is grasped and removed. At other times the stent may need to stay longer, either in preparation for other procedures or for other reasons. If it is to remain correction, however, changes of the stent are required (about every 3-4 months). Diet You may resume your normal diet, but you may want to start slowly and avoid spicy food, caffeine, carbonated beverages and alcohol, especially if you have a stent. Your diet and fluid intake may make irritation from the stent worse. Activity You may resume your normal activities, although you should take it easy on the day of the procedure. Minimizing activity may decrease the ba (more content not included)... Normal [facility] Patient Education - Texton 1 Patient Education - Text Procedures Cystoscopy Cystoscopy is a procedure that is used to help diagnose and sometimes treat conditions that affect the lower urinary tract. The lower urinary tract includes the bladder and the urethra. The urethra is the tube that drains urine from the bladder. Cystoscopy is done using a thin, tube-shaped instrument with a light and camera at the end (cystoscope). The cystoscope may be hard or flexible, depending on the goal of the procedure. The cystoscope is inserted through the urethra, into the bladder. Cystoscopy may be recommended if you have: ? Urinary tract infections that keep coming back. ? Blood in the urine (hematuria). ? An inability to control when you urinate (urinary incontinence) or an overactive bladder. ? Unusual cells found in a urine sample. ? A blockage in the urethra, such as a urinary stone. ? Painful urination. ? An abnormality in the bladder found during an intravenous pyelogram (IVP) or CT scan. Cystoscopy may also be done to remove a sample of tissue to be examined under a microscope (biopsy). Tell a health care provider about: ? Any allergies you have. ? All medicines you are taking, including vitamins, herbs, eye drops, creams, and xfqu-hyr-jjwamvm medicines. ? Any problems you or family members have had with anesthetic medicines. ? Any blood disorders you have. ? Any surgeries you have had. ? Any medical conditions you have. ? Whether you are or may be . What are the risks? Generally, this is a safe procedure. However, problems may occur, including: ? Infection. ? Bleeding. ? Allergic reactions to medicines. ? Damage to other structures or organs. What happens before the procedure? ? Ask your health care provider about: ? Changing or stopping your regular medicines. This is especially important if you are taking diabetes medicines or blood thinners. ? Taking medicines such as aspirin and ibuprofen. These medicines can thin your blood. Do not take these medicines unless your health care provider tells you to take them. ? Taking zlbe-ytb-lzwvomj medicines, vitamins, herbs, and supplements. ? Follow instructions from your health care provider about eating or drinking restrictions. ? Ask your health care provider what steps will be taken to help prevent infection. These may include: ? Washing skin with a germ-killing soap. ? Taking antibiotic medicine. ? You may have an exam or testing, such as: ? X-rays of the bladder, urethra, or kidneys. ? Urine tests to check for signs of infection. ? Plan to have someone take you home from the hospital or clinic. What happens during the procedure? ? You will be given one or more of the following: ? A medicine to help you relax (sedative). ? A medicine to numb the area (local anesthetic). ? The area around the opening of your urethra will be cleaned. ? The cystoscope will be passed through your urethra into your bladder. ? Germ-free (sterile) fluid will flow through the cystoscope to fill your bladder. The fluid will stretch your bladder so that your health care provider can clearly examine your bladder turcios. ? Your doctor will look at the urethra and bladder. Your doctor may take a biopsy or remove stones. ? The cystoscope will be removed, and your bladder will be emptied. The procedure may vary among health care providers and hospitals. What can I expect after the procedure? After the procedure, it is common to have: ? Some soreness or pain in your abdomen and urethra. ? Urinary symptoms. These include: ? Mild pain or burning when you urinate. Pain should stop within a few minutes after you urinate. This may last for up to 1 week. ? A small amount of blood in your urine for several days. ? Feeling like you need to urinate but producing only a small amount of urine. Follow these instructions at home: Medicines ? Take mclc-mog-bfmshnx and prescription medicines only as told by your health care provider. ? If you were prescribed an antibiotic medicine, take it as told by your health care provider. Do not stop taking the antibiotic even if you start to feel better. General instructions ? Return to your normal activities as told by your health care provider. Ask your health care provider what activities are safe for you. ? Do not drive for 24 hours if you were given a sedative during your procedure. ? Watch for any blood in your urine. If the amount of blood in your urine increases, call your health care provider. ? Follow instructions from your health care provider about eating or drinking restrictions. ? If a tissue sample was removed for testing (biopsy) during your procedure, it is up to you to get your test results. Ask your health care provider, or the department that is doing the test, when your results will be ready. ? Drink enough fluid to keep your urine pale yellow. ? (more content not included)... Normal [facility] Progress Note-Physicianon Progress Note-Physician Patient: RIC SANCHEZ Age: 60 years Sex: Male : 1960 Associated Diagnoses: None Author: Deniz Chan MD Preoperative Information Anesthesia history: Patient History: No personal or Family history of problems with anesthesia. Re-eval prior to induction: Inital eval reviewed: No significant interval change. Review of Systems Constitutional: Negative. Cardiovascular: Cardiovascular risk stratafacation reviewed, 1 FOS without difficulty, No chest pain. Respiratory: No SOB. Hematology/Lymphatics: Negative. Gastrointestinal: Negative. Musculoskeletal: Negative. Neurologic: Negative. Health Status Allergies: Allergic Reactions (Selected) Severity Not Documented Baclofen- Unknown. Celecoxib- Unknown. Iodine- Unknown. Current medications: (Selected) Inpatient Medications Ordered Lactated Ringers IV Devorah 1000 mL 1,000 mL: 1,000 mL, IV, 150 mL/hr, Routine, Start date 03/25/21 11:45:00 EDT, 6.7 hour(s), Total volume (mL): 1,000, 84 kg, 2.04, m2 cefazolin additive + premix generic diluent 100 mL: 2 gram = 100 mL, Soln-IV, IV Piggyback, Once, Stop date 03/25/21 12:00:00 EDT, Routine, Start date 03/25/21 12:00:00 EDT, 200 mL/hr, Infuse over 30 minute(s) Documented Medications Documented Multi Vitamin+: Refill(s) 0 Xanax 0.5 mg Tab: 0.5 mg = 1 tab(s), Oral, TID, PRN for anxiety, Refills(s) 0 metformin 1000 mg oral tablet: mg tab(s), Oral, BID, Refills(s) 0 pegfilgrastim-bmez 6 mg/0.6 mL subcutaneous solution: mg, SubCutaneous, Once, Refills(s) 0 Problem list: No problem items selected or recorded. Histories Past Medical History: No active or resolved past medical history items have been selected or recorded. Procedure history: Hip replacement ([id number]). Social History Social & Psychosocial Habits Tobacco 03/17/2021 Tobacco Use: Never (less than 100 in l . Physical Examination Pain assessment: Self-reports no pain. Airway: Mallampati classification: II (soft palate, fauces, uvula visible). Distance: Adequate. Mouth: Adequate opening. Neck: Full range of motion. Respiratory: Respirations are non-labored. Cardiovascular: Regular rhythm. Neurologic: Alert, Oriented. Review / Management Results review: No qualifying data available . Plan [place] [employer]esthesi[employer] (ASA) physical status classification: Class II. Anesthetic Preoperative Plan Anesthesia: General. . Anesthetic plan, risks, benefits, and alternatives discussed with the patient and/or family. Patient verbalized understanding. Pt agrees with anesthetic plan and accepts all risks including but not limited to; Bleeding, infection(including covid-19), nerve injury, dental injury, eye injury, headache, low blood pressure, serious problems with the heart and lungs, allergic reactions, and .. Normal [facility] Comment on above: Result Comment: Elec tronically Signed By: Dustin PARDO, Deniz\.br\Date and Time Signed: 03/25/21 15:05 EDT XR Abdomen 1 Viewon 03-25-20 XR Abdomen 1 View Exam Date/Time: 03/25/2021 12:10 EDT Reason for Exam: Kidney stone Report IMPRESSION: Nonobstructive bowel gas pattern. EXAMINATION/TECHNIQUE: XR Abdomen 1 View HISTORY: Previous surgery abdomen and pelvis radiographs COMPARISON: None TECHNIQUE: AP view of the abdomen RESULT: There are no abnormally dilated loops of bowel or abnormal air-fluid levels. There is moderate to severe colonic stool burden. No free air. The visualized osseous structures are intact. Partially visualized left total hip arthroplasty. Lung bases are clear. FINAL REPORT Dictated: 03/25/2021 12:28 pm Mohan PARDO, Marcie VGordon Signed (Electronic Signature): 03/25/2021 12:28 pm Signed by: Mohan PARDO, Marcie VGordon Transcribed by: LOUIS Technologist: HARRIET [facility] XR Urography Retrograde Left on 03-25-2021 XR Urography Retrograde Left Exam Date/Time: 03/25/2021 15:43 EDT Reason for Exam: Kidney stone Report IMPRESSION: LEFT URETERAL STENT PLACEMENT. CLINICAL HISTORY: Kidney stone COMPARISON: 03/25/2021 12:28 PM. FINDINGS: 3 digital spot images of the abdomen were obtained in surgery. 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 There is placement of left ureteral stent in good position. There is a tiny left renal calculus in the upper pole. Radiation dose was 6.1 mGy. FINAL REPORT Dictated: 03/25/2021 4:20 pm Ander Cooley M.D. Signed (Electronic Signature): 03/25/2021 4:20 pm Signed by: Ander Cooley M.D. Transcribed by: LOUIS Technologist: SHARA Technical Comments Radiation Dose: Ka,r in mGy = 465.9 [facility] Consent for Treatmenton 03-12 Consent for Treatment [id number] 0CD:127 [facility] Outside Recordson 03-24-2021 Outside Records [id number]. 00CD:127 [facility] Physician Orderon 03-24-2021 Physician Order [id number] 00 [id number] 0CD:127 [facility] RAD - MISCon 03-24-2021 RAD - MISC [id number] 0CD:127 [facility] XR Chest 2 Viewson XR Chest 2 Views Exam Date/Time: 03/24/2021 12:17 EDT Reason for Exam: pre op Report IMPRESSION: NO EVIDENCE OF ACTIVE CARDIOPULMONARY DISEASE. EXAM: XR Chest 2 Views DATE: 03/24/2021 CLINICAL HISTORY: pre op. Urolithiasis. COMPARISON: None available. TECHNIQUE: Upright PA and lateral radiographs of the chest were obtained. FINDINGS: There is no significant pulmonary infiltrate, cardiomegaly, pleural effusion, vascular congestion, pneumothorax, or displaced fractures identified. FINAL REPORT Dictated: 03/24/2021 12:23 pm Mark Kidd MD Signed (Electronic Signature): 03/24/2021 12:23 pm Signed by: Mark Kidd MD Transcribed by: LOUIS Technologist: MAJO [facility] Anesthesia Recordon 12-31-19 Anesthesia Record Patient: MARTÍNEZ SANCHEZ MRN: [id number] Age: 60 years Sex: Male : 1960 Associated Diagnoses: None Author: Sergo David MD Procedure Time Out [place] Protocol: patient identity verified, site verified, side verified, procedure to be done verified. REGIONAL ANESTHESIA PROCEDURE Procedure date and begin time: Date/ Time 12/30/2020 09:36:00, Spinal block. Procedure date and end time: Date/ Time 12/30/2020 09:39:00. Performed by: I have personally performed this procedure. Assisted by: Preop RN. Referred by: Regional anesthesia requested by surgeon for postoperative pain control. Technique: Spinal technique performed. Medications-Sedation: none. Indication for Peripheral Nerve Block: post operative management of pain, post: L JENIFFER. Preparation for Peripheral Nerve Block: The skin was prepped with chlorhexidine in the usual fashion. Needle(s): 4 inches, 25 gauge. Injectate: bupivacaine (concentration 0.75 %, volume 1.2 mL). SPINAL Sterile prep with ChloraPrep and drape. 1% lidocaine local infiltration at L3/4. 24 g Pencan spinal needle placed. Clear CSF. Subarachnoid injection without pain or paresthesia. Patient responsive and interactive throughout procedure. . Approach: midline 1 attempt(s). Monitored during procedure: Heart rhythm, Blood Pressure, Non-invasive blood pressure, Pulse oximetry. Procedure tolerated: well. Complications: none. Procedure done in: holding area. Findings-Comments: None. Estimated Blood Loss: none. Specimen(s) obtained: none. Impression and Plan Diagnosis and Plan: Diagnosis Preoperative Diagnosis: m16.12 Postoperative Diagnosis: m16.12 . Normal [facility] OR Nursingon 12-30-2020 OR Nursing Normal [facility] PACU I Nursingon 12-30-2020 PACU I Nursing [place] NA PACU I Nursing Record Summary Primary Physician: Quentin Ramirez MD Finalized Date/Time: 12/30/20 12:49:47 Pt. Name: RIC SANCHEZ/Sex: 1960 Male Med Rec #: [id number] Physician: Financial #: [id number] Pt. Type: A Room/Bed: / Admit/Disch: 12/30/20 07:04:00 - Institution: [facility] NA OR Main PACU I Case Times Entry 1 In PACU I 12/30/20 11:08:00 Ready for PACU I 12/30/20 12:45:00 Discharge Discharge from PACU 12/30/20 12:45:00 PACU I Discharge NA I Delay Reason Last Modified By: Mendoza Soto RN 12/30/20 12:49:41 CO NA OR Main PACU I Case Attendees Entry 1 Case Attendee Janell Lucero RN RN Last Modified By: Janell Lucero RN 12/30/20 11:14:22 Finalized By: Mendoza Soto RN Document Signatures Signed By: Mendoza oSto RN 12/30/20 12:49 Normal [facility] PreOp Nursingon 12-30-2020 PreOp Nursing [place] NA PreOp Nursing Record Summary Primary Physician: Quentin Ramirez MD Finalized Date/Time: 12/30/20 09:42:21 Pt. Name: RIC SANCHEZ/Sex: 1960 Male Med Rec #: [id number] Physician: Financial #: [id number] Pt. Type: A Room/Bed: / Admit/Disch: 12/30/20 07:04:00 - Institution: [facility] NA OR PreOp Case Times Entry 1 PreOp Case Times In Room Time 12/30/20 07:40:00 Out Room Time 12/30/20 09:40:00 Last Modified By: Fernando Zimmerman RN 12/30/20 09:42:21 CO NA OR PreOp Case Attendees Entry 1 Case Attendee Jenna Blanc RN Role Performed RN Last Modified By: Jenna Blanc RN 12/30/20 07:40:38 Finalized By: Fernando Zimmerman RN Document Signatures Signed By: Fernando Zimmerman RN 12/30/20 09:42 Normal [facility] XR Pelvis 1-2 Viewson 2020 XR Pelvis 1 or 2 Views EXAM: XR Pelvis 1-2 Views HISTORY: Postoperative COMPARISON: None. TECHNIQUE: AP radiograph of the pelvis. FINDINGS: There is a left total hip arthroplasty with surrounding postprocedural change. Hardware is intact. Alignment is within expected limits. Partially evaluated right hip is unremarkable. IMPRESSION: Left total hip arthroplasty, as above. [facility] thanks you for the opportunity to care for your patient. Workstation ID: [id number] FINAL REPORT Dictated By: Latonya Hampton MD 12/30/2020 13:05 Assigned Physician: Latonya Hampton MD Reviewed and Electronically Signed By: Latonya Hampton MD 12/30/2020 13:06 Transcribed by: CRISTINA 12/30/2020 13:05 Technologist: SARAH [facility] Comment on above: Order Comment: Posto perative, s/p JENIFFER Basic metabolic 2000 panelon 12-16-2020 Calcium [Mass/Vol] 9.6 mg/dL Normal 8.5-10.6 [facility] Chloride [Moles/Vol] 103 mmol/L Normal 98-107 [facility] CO2 [Moles/Vol] 25 mmol/L Normal 21-[address] [facility] Creatinine [Mass/Vol] 0.81 mg/dL Normal 0.70-1.30 [facility] Glucose [Mass/Vol] 133 mg/dL High 70-99 [facility] Potassium [Moles/Vol] 4.2 mmol/L Normal 3.5-5.1 [facility] Sodium [Moles/Vol] 139 mmol/L Normal 136-145 [facility] Urea nitrogen (BldV) [Mass/Vol] 15 mg/dL Normal 7.0-18.0 [facility] Urea nitrogen/Creatinine [Mass ratio] 19 mg/mg Normal [facility] CBC W Auto Differential pane l (Bld)on 12-16-2020 Basophils (Bld) [#/Vol] 0.0 thou/mcL Normal 0.0-0.2 [facility] Basophils/100 WBC (Bld) 0.4 % Normal 0-3 [facility] Differential cell count method Nom (Bld) AUTOMATED DIFFERENTIAL Normal [facility] Eosinophils (Bld) [#/Vol] 0.1 thou/mcL Normal 0.0-0.4 [facility] Eosinophils/100 WBC (Bld) 2.4 % Normal 0-7 [facility] Lymphocytes (Bld) [#/Vol] 2.4 thou/mcL Normal 0.7-4.5 [facility] Lymphocytes/100 WBC (Bld) 49.7 % High 14-46 [facility] Monocytes (Bld) [#/Vol] 0.4 thou/mcL Normal 0.1-1.0 [facility] Monocytes/100 WBC (Bld) 8.1 % Normal 4-13 [facility] Neutrophils (Bld) [#/Vol] 1.9 thou/mcL Normal 1.5-7.8 [facility] Neutrophils/100 WBC (Bld) 39.4 % Low 40-74 [facility] Erythrocyte distribution width (RBC) [Entitic vol] 13.4 % Normal 11.7-15.0 [facility] Hematocrit (Bld) [Volume fraction] 46.0 % Normal 34.0-50.0 [facility] Hemoglobin (Bld) [Mass/Vol] 15.7 g/dL Normal 11.5-17.0 [facility] MCH (RBC) [Entitic mass] 30.5 Picograms Normal 27.0-34.0 [facility] MCHC (RBC) [Mass/Vol] 34.1 g/dL Normal 32.0-36.0 [facility] MCV (RBC) [Entitic vol] 89.3 fL Normal 80-98 [facility] Platelet mean volume (Bld) [Entitic vol] 9.5 fL Normal 7.5-11.2 [facility] Platelets (Bld) [#/Vol] 271 thou/mcL Normal 140-415 [facility] RBC (Bld) [#/Vol] 5.15 x(10)6/mcL Normal 3.80-5.60 [facility] WBC (Bld) [#/Vol] 4.9 thou/mcL Normal 4.0-10.5 [facility] Vital Signs Date Time Vital Sign Value Performing Clinician Facility 03-14-2023 14:00-0400 Body height 175.26 cm Christopher Ball Other [employer] Other 03-14-2023 14:00-0400 Body mass index (BMI) [Ratio] 28.73 kg/m2 Christopher Ball Other [facility] [employer] [facility] Other 03-14-2023 14:00-0400 Body weight 88.27 kg Christopher Ball Other [facility] Other 03-14-2023 14:00-0400 Diastolic blood pressure 86 mm[Hg] Christopher Ball Other [facility] [employer] [facility] Other 03-14-2023 14:00-0400 Respiratory rate 12 /min Christopher Ball Other [facility] [employer] [facility] Other 03-14-2023 14:00-0400 Systolic blood pressure 121 mm[Hg] Christopher Ball Other [facility] Other 12-21-2022 15:00-0400 Body height 175.26 cm Christopher Ball Other [facility] Other 12-21-2022 15:00-0400 Body mass index (BMI) [Ratio] 28.97 kg/m2 Christopher Ball Other [facility] Other 12-21-2022 15:00-0400 Body weight 89 kg Christopher Ball Other [facility] Other 12-21-2022 15:00-0400 Diastolic blood pressure 80 mm[Hg] Christopher Ball Other [facility] [facility] Other 12-21-2022 15:00-0400 Respiratory rate 12 /min Christopher Ball Other [facility] Other 12-21-2022 15:00-0400 Systolic blood pressure 126 mm[Hg] Christopher Ball Other [facility] Other 11-26-2022 09:00-0400 Body height 175.26 cm Kacey Vazquez Other [employer] Other 11-26-2022 09:00-0400 Body mass index (BMI) [Ratio] 28.5 kg/m2 Kacey Vazquez Other [facility] Other 11-26-2022 09:00-0400 Body temperature 97.1 [degF] Kacey Vazquez Other [facility] Other 11-26-2022 09:00-0400 Body weight 87.54 kg Kacey Vazquez Other [facility] Other 11-26-2022 09:00-0400 Diastolic blood pressure 74 mm[Hg] Kacey Vazquez Other [employer] Other 11-26-2022 09:00-0400 Respiratory rate 18 /min Kacey Vazquez Other [employer] Other 11-26-2022 09:00-0400 SaO2% (BldA) [Mass fraction] 97 % Kacey Vazquez Other [facility] Other 11-26-2022 09:00-0400 Systolic blood pressure 106 mm[Hg] Kacey Vazquez Other [facility] Other 10-10-2022 16:00-0400 Body height 175.26 cm Christopher Ball Other [facility] Other 10-10-2022 16:00-0400 Body mass index (BMI) [Ratio] 28.59 kg/m2 Christopher Ball Other [employer] Other 10-10-2022 16:00-0400 Body weight 87.82 kg Christopher Ball Other [employer] Other 10-10-2022 16:00-0400 Diastolic blood pressure 77 mm[Hg] Christopher Ball Other [facility] Other 10-10-2022 16:00-0400 SaO2% (BldA) [Mass fraction] 96 % Christopher Ball Other [employer] Other 10-10-2022 16:00-0400 Systolic blood pressure 108 mm[Hg] Christopher Ball Other [facility] Other 08-08-2022 15:45-0500 Body height 175.26 cm Christopher Ball Other [facility] Other 08-08-2022 15:45-0500 Body mass index (BMI) [Ratio] 29.12 kg/m2 Christopher Ball Other [employer] Other 08-08-2022 15:45-0500 Body weight 89.45 kg Christopher Ball Other [employer] Other 08-08-2022 15:45-0500 Diastolic blood pressure 76 mm[Hg] Christopher Pearce Other [employer] Other 08-08-2022 15:45-0500 Respiratory rate 12 /min Christopher Pearce Other [employer] Other 08-08-2022 15:45-0500 Systolic blood pressure 118 mm[Hg] Christopher Bryce Other [employer] Other 11-09-2021 08:53-0400 Blood Pressure Location Lino Ansari Jr. [facility] 11-09-2021 08:53-0400 Diastolic blood pressure 88 mm[Hg] Lino Ansari Jr. [facility] 11-09-2021 08:53-0400 Heart rate 81 /min Lino Ansari Jr. [facility] 11-09-2021 08:53-0400 Systolic blood pressure 113 mm[Hg] Lino Ansari Jr. [facility] Encounters Encounter Date Encounter Type Care Provider Facility Start: 05-25-2023 End: 05-25-2023 ambulatory Christopher Pearce Other [employer] [facility] Other Start: 05-25-2023 Telephone encounter Christopher ZAMUDIO G Bryce [facility] Start: 05-24-2023 End: 05-24-2023 ambulatory Christopher Bryce Other [employer] Other Start: 05-24-2023 Office outpatient vi sit 15 minutes Christopher Pearce [facility] Start: 04-28-2023 End: 04-28-2023 ambulatory Christopher Ball Other [employer] Other Start: 04-28-2023 Telephone encounter Christopher Ball [facility] Start: 03-28-2023 End: 03-28-2023 ambulatory Christopher Ball Other [employer] Other Start: 03-28-2023 Telephone encounter Christopher Ball [facility] Start: 03-22-2023 End: 03-22-2023 ambulatory Christopher Ball Other [employer] Other Start: 03-22-2023 Telephone encounter Christopher Ball [facility] Start: 03-14-2023 End: 03-14-2023 ambulatory Christopher Ball Other [employer] Other Start: 03-14-2023 Office outpatient vi sit 25 minutes Christopher Ball [facility] Start: 02-28-2023 End: 02-28-2023 ambulatory Christopher Ball Other [employer] Other Start: 02-28-2023 Telephone encounter Christopher Ball [facility] Start: 12-22-2022 End: 12-22-2022 ambulatory Christopher Ball Other [employer] Other Start: 12-22-2022 Telephone encounter Christopher Ball [facility] Start: 12-21-2022 End: 12-21-2022 ambulatory Christopher Ball Other [employer] Other Start: 12-21-2022 Office outpatient vi sit 25 minutes Christopher Ball [facility] Start: 12-05-2022 End: 12-05-2022 ambulatory Christopher Ball Other [employer] Other Start: 12-05-2022 Office outpatient vi sit 15 minutes Christopher Ball [facility] Start: 11-26-2022 End: 11-26-2022 ambulatory Kacey Vazquez Other [employer] Other Start: 11-26-2022 Office outpatient vi sit 15 minutes Kacey Vazquez [facility] Start: 10-11-2022 End: 10-11-2022 ambulatory Christopher Pearce Other [employer] Other Start: 10-11-2022 Telephone encounter Christopher Pearce [facility] Start: 10-10-2022 End: 10-10-2022 ambulatory Christopher Pearce Other [employer] Other Start: 10-10-2022 Office outpatient vi sit 25 minutes Christopher Pearce [facility] Start: 09-06-2022 End: 09-06-2022 ambulatory Christopher Pearce Other [employer] Other Start: 09-06-2022 Telephone encounter Christopher Pearce [facility] Start: 08-26-2022 End: 08-26-2022 ambulatory Christopher Pearce Other [employer] Other Start: 08-26-2022 Telephone encounter Christopher Pearce [facility] Start: 2022 End: 2022 ambulatory Christopher Pearce Other [employer] Other Start: 2022 Telephone encounter Christopher Pearce [facility] Start: 08-19-2022 End: 08-20-[address] CHRISTOPHER PEARCE Facility:[facility] Start: 08-19-2022 Telephone encounter Christopher Pearce [facility] Start: 08-18-2022 End: 08-18-2022 ambulatory Christopher Pearce Other [employer] Other Start: 08-18-2022 Telephone encounter Christopher Pearce [facility] Start: 08-17-2022 End: 08-18-[address] CHRISTOPHER PEARCE Facility:[facility] Start: 08-17-2022 Telephone encounter Christopher Pearce [facility] Start: 08-08-2022 End: 08-08-2022 ambulatory Christopher Pearce Other [employer] Other Start: 08-08-2022 Office outpatient vi sit 25 minutes [facility] Start: 03-15-2022 End: 03-16-[address] LINO Leyva Facility:[facility] Start: 01-25-2022 End: 01-25-2022 ambulatory LEYDI PEREYRA Facility:[facility] Start: 12-22-2021 Encounter for genera l adult medical examination without abnormal findings DR CHRISTOPHER PEARCE [facility] Start: 12-21-2021 End: 12-22-[address] CHRISTOPHER PEARCE Facility:[facility] Start: 12-21-2021 End: 12-22-2021 Encounter for general adult medical examination without abnormal findings DR CHRISTOPHER PEARCE Facility:[facility] Start: 12-14-2021 Adult health examination Christopher Pearce Other [employer] Other Start: 11-09-2021 End: 11-10-2021 ambulatory Lino Ansari Facility:[facility] Start: 11-09-2021 End: 11-09-2021 Patient encounter procedure Lino Ansari Jr. [facility] Start: 08-31-2021 End: 09-01-[address] CHRISTOPHER PEARCE Facility: Start: 04-01-2021 End: 04-02-2021 ambulatory L[place] [place]: 03-25-2021 End: 03-25-2021 ambulatory Lino Ansari [place] [place] Start: 03-24-2021 End: 03-25-2021 ambulatory Lino Ansari [place] [place] Procedures Date Procedure Procedure Detail Performing Clinician Start: 12-21-2021 PSA screening LEYDI JAIN Comment on above: Performed By: #### C MP, TSH #### [facility] [address] [place] [address] Dr. Cipriano Simon Start: 03-25-2021 Cystoscopy Lino tolbert Jr. Start: 09-26-2018 General examination of patient Christopher Pearce Other Start: 10-16-2014 Removal of suture Matt Pearce Other Start: 04-11-2008 Extracorporeal shock wave lithotripsy of calculus of kidney Lino Ansari Jr. Depression screening Taylor Pearce Other Insertion of hip prosthesis Lino Ansari Jr. Screening for malign ant neoplasm of colon Christopher Pearce Other Screening for malign ant neoplasm of prostate Christopher Pearce Other Immunizations Immunization Date Immunization Notes Care Provider Jamar sanabria 09-08-2020 SARS-CoV-2 (COVID-19 ) Ad26 vaccine, recombinant Lino Ansari Jr. [facility] NEGATED: Highlighted row has not occurred!11-09-2021 influenza virus vaccine, unspecified formulation Lino Ansari Jr. [facility] Payers Date Payer Category Payer Unknown [id number] 2.16.8 [id number] 1960 Unknown [id number] 2.16.8 [id number] 1960 Unknown [id number] 2.16.8 [id number] 1960 Unknown [id number] 2.16.8 [id number] 1960 Unknown [id number] 2.16.8 [id number] 1960 Unknown [id number] 2.16.84 [id number] 1960 Unknown [id number] 2.16.84 [id number] 1960 Unknown [id number] 2.16.84 [id number] 1960 Unknown [id number] 2.16.84 [id number] 1960 Unknown [id number] 2.16.84 [id number] 1960 Unknown [id number] 2.16.84 [id number] 1960 Unknown [id number] 2.16.84 [id number] 1959 Unknown [id number] 1957 Unknown [id number] Unknown [id number] 2.16 [id number] Social History Date Type Detail Facility Start: 11-09-2021 Never smoked tobacco (f inding) [facility] Male [facility] Medical Equipment Procedure Code Equipment Code Equipment Origin al Text Equipment Identifier Dates [id number] Start: 03-25-2021 Start: 09-06-2022 Clinical Notes 12-30-2020 to 05-24-2023 Note Date & Type Note Facility 05-24-2023 Evaluation note Encounter Date Diagnosis Assessment Notes May, Acute bronchitis due to other specified organisms (ICD-10 - J20.8) Instructed to use Robitussin or Mucinex for cough, saline or Flonase NS for congestion, Tylenol for pain and fever. May, Type 2 diabetes mellitus with hyperglycemia (ICD-10 - E11.65) This patient is following a comprehensive diabetic treatment plan. They are checking their feet daily for calluses and nonhealing ulcers. They are being seen for yearly dilated eye examinations. Goals: SBP less than 130, LDL less than 100, FBS less than 140, A1C less than 7%. They are checking their BS daily, will which are reviewed at the office visit. 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 They are checking their feet daily for calluses and nonhealing ulcers. They are being seen for yearly dilated eye examinations. Goals: SBP less than 130, LDL less than 100, FBS less than 140, A1C less than 7%. They are checking their BS daily, will which are reviewed at the office visit. Continue regular routine monitoring of A1C,] Microalbumin, Dilated eye exam and Foot exam Instructed to increase HUI to 4mg qd - instructed to take 30 min prior to bkfst - FBS and pre supper BS daily and record, drop off at office in couple weeks He is to locate his formulary to determine treatment options Mar, Type 2 diabetes mellitus with diabetic polyneuropathy, without long-term current use of insulin (ICD-10 - E11.42) Inspect feet daily for cuts and calluses.Recommend diabetic shoes and inserts to prevent callus formation.Fall precautions. Mar, Gastroesophageal reflux disease with esophagitis without hemorrhage (ICD-10 - K21.00) Diet instructions: Smaller portions, avoid eating and laying flat, avoid eating or drinking prior to bedtime. Weight loss. Mar, SHAYLA (generalized anxiety disorder) (ICD-10 - F41.1) Healthy diet and exercise, keep active. No change in medical therapy Intolerant to multiple SSRI and SNRI Mar, Lumbosacral spondylosis (ICD-10 - M47.817) The patient is instructed to avoid bending, twisting or lifting. They are to use intermittent heat and ice as needed. They may schedule a massage or gentle manipulation. They may safely use Tylenol as needed. Mar, Shortness of breath (ICD-10 - R06.02) Intermittent and not associated w/ activity. Resolves w/ treatment. Mar, Overweight (ICD-10 - E66.3) This patient has been instructed on a low-fat, high-fiber diet. They are instructed to reduce calories, portion sizes and snacks. It is recommended that they exercise for 30 minutes, 3-5 times weekly. [employer] Other 07-13-2023 Evaluation note* Encounter Date Diagnosis Assessment Notes Treatment Notes Treatment Clinical Notes Dec, Type 2 diabetes mellitus with hyperglycemia, without long-term current use of insulin (ICD-10 - E11.65) [employer] Other 07-12-2023 Evaluation note* Encounter Date Diagnosis Assessment Notes Treatment Notes Treatment Clinical Notes Dec, Type 2 diabetes mellitus with hyperglycemia, without long-term current use of insulin (ICD-10 - E11.65) This patient is following a comprehensive diabetic treatment plan. They are checking their feet daily for calluses and nonhealing ulcers. They are being seen for yearly dilated eye examinations. Goals: SBP less than 130, LDL less than 100, FBS less than 140, AC and A1C less than 7%. They are checking their BS daily, will which are reviewed at the office visit. Continue regular routine monitoring of A1C,] Microalbumin, Dilated eye exam and Foot exam Recheck A1C Dec, Gastroesophageal reflux disease with esophagitis without hemorrhage (ICD-10 - K21.00) Diet instructions: Smaller portions, avoid eating and laying flat, avoid eating or drinking prior to bedtime. Weight loss. Dec, SHAYLA (generalized anxiety disorder) (ICD-10 - F41.1) Healthy diet, exercise and weight loss Dec, Lumbosacral spondylosis (ICD-10 - M47.817) The patient is instructed to avoid bending, twisting or lifting. They are to use intermittent heat and ice as needed. They may schedule a massage or gentle manipulation. They may safely use Tylenol as needed. Dec, PVC (premature ventricular contraction) (ICD-10 - I49.3) Avoid stimulants, hydrate and no medication changes [employer] Other 06-26-2023 Evaluation note* Encounter Date Diagnosis Assessment Notes Treatment Notes Treatment Clinical Notes Nov, Acute bronchitis due to other specified organisms (ICD-10 - J20.8) Instructed to use Robitussin or Mucinex for cough, saline or Flonase NS for congestion, Tylenol for pain and fever. Nov, Type 2 diabetes mellitus with hyperglycemia, without long-term current use of insulin (ICD-10 - E11.65) BS may increase during times of infection. Monitor for now. Push fluids [employer] Other 06-17-2023 Evaluation note* Encounter Date Diagnosis Assessment Notes Treatment Notes Treatment Clinical Notes Nov, Acute non-recurrent maxillary sinusitis (ICD-10 - J01.00) Given duration of symptoms, will treat for sinusitis with Augmentin. Finish entire course. Probiotic supplement encouraged. May use Capmist DM Rx for symptomatic treatment. May use Tylenol/ibuprofen for any pain or fever. Follow-up with PCP if symptoms or not gradually improving over the next 5 to 7 days, sooner if significantly worsening. [employer] Other 05-01-2023 Evaluation note* Encounter Date Diagnosis Assessment Notes Treatment Notes Treatment Clinical Notes October, Type 2 diabetes mellitus with hyperglycemia, without long-term current use of insulin (ICD-10 - E11.65) This patient is following a comprehensive diabetic treatment plan. They are checking their feet daily for calluses and nonhealing ulcers. They are being seen for yearly dilated eye examinations. Goals: SBP less than 130, LDL less than 100, FBS less than 140, AC and A1C less than 7%. They are checking their BS daily, will which are reviewed at the office visit. Poorly controlled - continue Metformin and start Glimepiride - monitor FBS and prior to evening meal - goal A1C< 7% October, PVC (premature ventricular contraction) (ICD-10 - I49.3) Benign ventricular ectopy on Holter. - discussed results w/ patient - avoid stimulants, hydrate Resolved w/ stopping Actos October, Gastroesophageal reflux disease with esophagitis without hemorrhage (ICD-10 - K21.00) Improved w/ diet changes and resumption of PPI on occasions. Reiterated dietary guidelines and avoid lying flat after eating. Weight loss October, SHAYLA (generalized anxiety disorder) (ICD-10 - F41.1) Stable Continues on Xanax 2-3x daily Intolerant to SSRI, SNRI and Trazadone October, Lumbar degenerative disc disease (ICD-10 - M51.36) The patient is instructed to avoid bending, twisting or lifting. They are to use intermittent heat and ice as needed. They may schedule a massage or gentle manipulation. They may safely use Tylenol as needed. [employer] Other 03-13-2023 Evaluation note* Encounter Date Diagnosis Assessment Notes Treatment Notes Treatment Clinical Notes Aug, Type 2 diabetes mellitus with hyperglycemia, without long-term current use of insulin (ICD-10 - E11.65) [employer] Other 03-10-2023 Evaluation note* Encounter Date Diagnosis Assessment Notes Treatment Notes Treatment Clinical Notes Aug, Type 2 diabetes mellitus with hyperglycemia, without long-term current use of insulin (ICD-10 - E11.65) Aug, Anemia, unspecified type (ICD-10 - D64.9) [employer] Other 03-09-2023 Evaluation note* Encounter Date Diagnosis Assessment Notes Treatment Notes Treatment Clinical Notes Aug, Type 2 diabetes mellitus with hyperglycemia, without long-term current use of insulin (ICD-10 - E11.65) [employer] Other 03-08-2023 Evaluation note* Encounter Date Diagnosis Assessment Notes Treatment Notes Treatment Clinical Notes Aug, Type 2 diabetes mellitus with hyperglycemia, without long-term current use of insulin (ICD-10 - E11.65) [employer] Other 02-27-2023 Evaluation note* Encounter Date Diagnosis Assessment Notes Treatment Notes Treatment Clinical Notes Jul, Type 2 diabetes mellitus with hyperglycemia, without long-term current use of insulin (ICD-10 - E11.65) This patient is following a comprehensive diabetic treatment plan. They are checking their feet daily for calluses and nonhealing ulcers. They are being seen for yearly dilated eye examinations. Goals: SBP less than 130, LDL less than 100, FBS less than 140, AC and A1C less than 7%. They are checking their BS daily, will which are reviewed at the office visit. Jul, SHAYLA (generalized anxiety disorder) (ICD-10 - F41.1) Healthy diet, exercise, keep active Jul, Gastroesophageal reflux disease with esophagitis without hemorrhage (ICD-10 - K21.00) Diet instructions: Smaller portions, avoid eating and laying flat, avoid eating or drinking prior to bedtime. Weight loss. Jul, PVC (premature ventricular contraction) (ICD-10 - I49.3) Avoid stimulants, hydrate, exercise Jul, Fluttering heart (ICD-10 - I49.8) Jul, Muscle cramp, nocturnal (ICD-10 - R25.2) Reassure, check [employer] Other 05-31-2022 Hospital Discharge instructions Patient Education 11/09/2021 09:45:52 Kidney Stones, Ghfg-ei-Zirh Kidney Stones Kidney stones are rock-like masses that form inside of the kidneys. Kidneys are organs that make pee (urine). A kidney stone may move into other parts of the urinary tract, including: The tubes that connect the kidneys to the bladder (ureters). The bladder. The tube that carries urine out of the body (urethra). Kidney stones can cause very bad pain and can block the flow of pee. The stone usually leaves your body (passes) through your pee. You may need to have a doctor take out the stone. What are the causes? Kidney stones may be caused by: A condition in which certain glands make too much parathyroid hormone (primary hyperparathyroidism). A buildup of a type of crystals in the bladder made of a chemical called uric acid. The body makes uric acid when you eat certain foods. Narrowing (stricture) of one or both of the ureters. A kidney blockage that you were born with. Past surgery on the kidney or the ureters, such as gastric bypass surgery. What increases the risk? You are more likely to develop this condition if: You have had a kidney stone in the past. You have a family history of kidney stones. You do not drink enough water. You eat a diet that is high in protein, salt (sodium), or sugar. You are overweight or very overweight (obese). What are the signs or symptoms? Symptoms of a kidney stone may include: Pain in the side of the belly, right below the ribs (flank pain). Pain usually spreads (radiates) to the groin. Needing to pee often or right away (urgently). Pain when going pee (urinating). Blood in your pee (hematuria). Feeling like you may vomit (nauseous). Vomiting. Fever and chills. How is this treated? Treatment depends on the size, location, and makeup of the kidney stones. The stones will often pass out of the body through peeing. You may need to: Drink more fluid to help pass the stone. In some cases, you may be given fluids through an IV tube put into one of your veins at the hospital. Take medicine for pain. Make changes in your diet to help keep kidney stones from coming back. Sometimes, medical procedures are needed to remove a kidney stone. This may involve: A procedure to break up kidney stones using a beam of light (laser) or shock waves. Surgery to remove the kidney stones. Follow these instructions at home: Medicines Take xzpf-lbh-jbofltu and prescription medicines only as told by your doctor. Ask your doctor if the medicine prescribed to you requires you to avoid driving or using heavy machinery. Eating and drinking Drink enough fluid to keep your pee pale yellow. You may be told to drink at least 8 10 glasses of water each day. This will help you pass the stone. If told by your doctor, change your diet. This may include: ?Limiting how much salt you eat. ?Eating more fruits and vegetables. ?Limiting how much meat, poultry, fish, and eggs you eat. Follow instructions from your doctor about eating or drinking restrictions. General instructions Collect pee samples as told by your doctor. You may need to collect a pee sample: ?24 hours after a stone comes out. ?8 12 weeks after a stone comes out, and every 6 12 months after that. Strain your pee every time you pee (urinate), for as long as told. Use the strainer that your doctor recommends. Do not throw out the stone. Keep it so that it can be tested by your doctor. Keep all follow-up visits as told by your doctor. This is important. You may need follow-up tests. How is this prevented? To prevent another kidney stone: Drink enough fluid to keep your pee pale yellow. This is the best way to prevent kidney stones. Eat healthy foods. Avoid certain foods as told by your doctor. You may be told to eat less protein. Stay at a healthy weight. Where to find more information National Kidney Foundation (NKF): www.kidney.org U[employer] (UCF): www.urologyhealth.org Contact a doctor if: You have pain that gets worse or does not get better with medicine. Get help right away if: You have a fever or chills. You get very bad pain. You get new pain in your belly (abdomen). You pass out (faint). You cannot pee. Summary Kidney stones are rock-like masses that form inside of the kidneys. Kidney stones can cause very bad pain and can block the flow of pee. The stones will often pass out of the body through peeing. Drink enough fluid to keep your pee pale yellow. This information is not intended to replace advice given to you by your health care provider. Make sure you discuss any questions you have with your health care provider. Document Released: 11/14/2008 Document Revised: 10/15/2019 Document Reviewed: 10/15/2019 [employer] Patient Education 2020 [employer]. Follow Up Care 04/01/2021 14:51:08 With:Elan Peterson MD, Lino Goodson, URO Address: [facility] [address] , [place] [address]- When:05/12/2022 Comments:w/nancy [facility] 10-26-2021 Note [id number]:127[facility] 04-01-2021 NoteCystoscopy with Stent Removal ? Voiding after the procedure: there may be some pain, burning, urgency, frequency and blood tingedurine following the procedure. These symptoms usually resolve within 2-5 days. Drink the amount of fluid it takes to keep the urine pink to yellow or clear in color. Drinking enough water and fluids will help to ease any discomfort after your procedure. ? If you are having problems that seem out of the ordinary, please call. ? If unable to contact your physician and you feel it is an emergency, go to the nearest emergency room or call 911 ? Diet ? you may resume your normal diet. ? Activity ? you may resume your normal activities ? Call if you have a fever over 100 degrees.Jacob [facility] 03-24-2021 [id number]:127[facility] notePatient: RIC SANCHEZ MRN: [facility])-[id number] Age: 60 years Sex: Male : 1960 Associated Diagnoses: None Author: Christiano PARDO , Marco Newton Assessment Assessment Diagnosis: Osteoarthritis of left hip ([id number] M16.12, Working, Medical). Plan A medical consult has been ordered by the surgeon/surgical team for perioperative management of thepatient's chronic medical conditions. These chronic medical conditions have been reviewed and are summarized below with an impression/plan. Postoperative medical management. I have ordered pain medicines including IV opiates, home prescription medications have been reviewed and appropriate medicines have been ordered for use post procedure while hospitalized. s/p left total hip joint replacement surgery. Multimodal pain medications have been ordered. This would include, but not limited to, IV narcotics, oral narcotics, and non-narcotics. EBL 100 mL. DVT prophylaxis - as directed by the primary surgical team. Recommend prophylaxis as per current ACCP consensus guidelines. Encourage lower extremity venous return exercises. Anxiety Disorder (F41.9) - chronic and present on admission, controlled with home prescription medications which have been reordered. Type 2 Diabetes Mellitus (E11.9) - chronic condition present on admission, reasonable preoperative blood sugar control. I have ordered the patient's home prescription medications. I have also added point of care glucose testing and sliding scale insulin while hospitalized. Gastroesophageal Reflux Disease (K21.9) - chronic condition present on admission, controlled with proton pump inhibitor which has been reordered. Disposition - medically stable to discharge if passing flatus, room air sats greater than 90%, voiding without difficulty, acceptable with surgical service, has met the required physical therapy goals. I have reconciled the patient's home medications. The patient's DVT prophylaxis (pharmacologic and nonpharmacologic), NSAIDs, antibiotics, and pain medications/narcotics have been left to the discretion of the surgical service. If the patient is an outpatient/extended recovery status, it is acceptable to discharge home once PACU-Phase 2 criteria have been met. Full Labs No qualifying data available. Supervising Physician Comments Chief Complaint Postoperative Medical Care Postoperative Information Postoperative Follow Up Postoperative Follow Up. Day 0 Health Status Allergies Nonallergic Reactions (Selected) Severe Contrast dye- Anxiety attack. Subjective Pt is resting in bed in the PACU. Pain is present, but being addressed with narcotic pain medication. No c/o CP, SOB, N/V, otherwise, ROS has been reviewed and is stated below. ROS: Constitutional: denies fever. Head/Neck: denies headache. Cardiovascular: denies chest pain. Respiratory: denies dyspnea. Gastrointestinal: denies abdominal pain. Genitourinary: denies incomplete emptying Skin: denies rash. Objective Last Charted Vital Signs Temperature: 97.7 (12/30 11:10) Pulse: 86 (12/30 10:25) Respiration: 10 (12/30 10:) BP: 123/70 (12/30 10:) Pulse Ox: 100 (12/30 10:) Oxygen Delivery: Nasal cannula (12/30 10:) O2 Device Flow: 1 L/min Pain Score: 0 (12/30 10:) EXAM: Constitutional - no apparent distress, vitals reviewed and listed above Skin - no visible rashes or ulcers, normal turgor and temperature Cardiovascular - regular rate and rhythm, no peripheral edema Respiratory - CTA, normal respiratory effort; GI - soft, nontender, no hepatosplenomegaly Musculoskeletal - no calf tenderness, no digital cyanosis or clubbing Psych - A and Ox3, appropriate mood and affect Intake and Output (Previous 24Hrs) I and O Summary Begin date: 12/29 11:41 End date: 12/30 10: 24 Hour Intake: 50.00 Output: 100.00 Balance: -50.00 Last BM: No BM Charted Results Review Labs - Last 36 hours (Max 2 / lab test) CHEMISTRY Sodium No result Potassium No result Chloride No result CO2 No result Glucose No result Glucose POCT 172 (12/30 11:30) 155 (12/30 08:05) BUN No result Creatinine No result Calcium Total No result Magnesium No result HEMATOLOGY WBC No result RBC No result Hb No result Hematocrit No result Platelets No result MCV No result MCH No result RDW No result MCHC No result Neutrophil Ab No result Monocyte Ab No result Eosinophil Ab No result Basophil Ab No result Lymphocyte Ab No result X-rays last 36 hours XR Pelvis 1-2 Views: 12/30/20 11:35:08 See Radiology Report for More Detail XR Fluoro Less 1 Hour (Statistics)(NR): 12/29/20 16 See Radiology Report for More Detail Diagnosis [facility]ation [facility]iology Preoperative evaluation and management notePatient: RIC SANCHEZ MRN: [id number] Age: 60 years Sex: Male : 1960 Associated Diagnoses: None Author: Sergo David MD Surgery Date: 12/30/20 Preoperative Information Source of History Source of History. Planned Procedure Planned Procedure Left JENIFFER Anterior . Histories Past Medical History: Active Anxiety Diabetes GERD (gastroesophageal reflux disease) Osteoarthritis , Cardiovascular, Respiratory, Renal, Endocrine, Neurological, Musculoskeletal, Gastrointestinal, Hematology, 12/17 10:11 Encounter for other preprocedural examination - Jl - Christiano PARDO , Marco Newton Social History: Type of Tobacco Use: Cigarettes Date Quit Smokin yrs ago Smoking Status: Former smoker, quit more than 1 year ago How Often Do You Drink ..: Never (0) E-Cig/Vaped Last 90 Day..: No Anesthesia History: No previous anesthetic history, PONV Risk Factors (One point for each of the following risk factors): A. Nonsmoker (x) B. Female (_) C. Previous PONV (_) D. Hx Motion Sickness (_) E. Surgery > 30 min use (x) F. PONV Risk Score [2] 12/17 10:11 Encounter for other preprocedural examination - Jl - Christiano PARDO , Marco Newton Social History Drug Use Medications Allergies Contrast dye: Severe, Anxiety attack All Medications Admission Med Reconciliation: Complete 12/29/20 10:44:27 by Mart RN , Chelsey R Home Medications: cyanocobalamin = 1 Tab, PO, Daily,, Last Dose: 12/29/20 00:00 Still taking, as prescribed multivitamin 1 Tab, PO, Daily,, am,, Tab Last Dose: 12/29/20 00:00 Still taking, as prescribed MetFORMIN 1,000 mg = 1 Tab, PO, Daily,, am,, Each Last Dose: 12/29/20 00:00 Still taking, as prescribed pioglitazone 30 mg = 1 Tab, PO, Daily,, am,, Each Last Dose: 12/29/20 00:00 Still taking, as prescribed omeprazole 20 mg = 1 Cap, PO, Daily,, am,, Each Last Dose: 12/30/20 06:30 Still taking, as prescribed ALPRAZolam 0.5 mg = 1 Tab, PO, TID,,, Each Last Dose: 12/30/20 06:30 Still taking, as prescribed acetaminophen 650 mg = 2 Tab, PO, Q4h, PRN, Last Dose: 12/29/20 00:00 Still taking, as prescribed Inpatient Medications: Lidocaine 1% Inj 2 mL PF (Xylocaine GEq) 2 mg = 0.2 mL, IntraDermal, Inject, Pre-Procedure x 30 Day(s) , Comment: For IV Insertion Last Dose: Not Given pioglitazone (unverified) 30 mg = 1 Tab, PO, Tab, Daily, x 30 Day(s), 12/31/20 9:00:00 EDT Last Dose: Not Given MetFORMIN (unverified) 1,000 mg = 1 Tab, PO, Tab, Daily, x 30 Day(s), 12/31/20 9:00:00 EDT Last Dose: Not Given ALPRAZolam (unverified) 0.5 mg = 1 Tab, PO, Tab, TID, x 30 Day(s), 12/30/20 14:00:00 EDT Last Dose: Not Given Current IV Orders: Tranexamic Acid 100 mg/mL Vial 10 mL (Cyklokapron GEq) 1,000 mg = 10 mL, IV Push, Inject, Pre-Procedure x 30 Day(s) Last Dose: Not Given Comment: Anesthesia to administer upon induction if patient not able to receive oral dose CeFAZolin (RTU) 2 Gm, IVPB, Pre-Procedure x 30 Day(s) Last Dose: Not Given Lactated Ringers 1,000 mL 1,000 mL, 1,000 mL, 20 mL/hr, IV, Infusion Last Dose: 12/30/20 08:09:00 Comment: Run at KVO Rate Quality Measures Documentation Surgical care core measures Physical Examination VS/Measurements: Last Charted Vital Signs Temperature: 97.1 (12/30 08:00) Pulse: 71 (12/30 08:00) Respiration: 14 (12/30 08:00) BP: 133/83 (12/30 08:00) Pulse Ox: 97 (12/30 08:00) Oxygen Delivery: Room air (12/30 08:00) Pain Score: 0 (12/30 08:09) , Measurements Height: 175.26 cm /69.00 in (Pt reported) (12/30/2020 08:01:00) Weight: 86.5 kg/ 190 lbs 11.2 oz (Actual) (12/30/2020 08:01:00) Body Surface Area: 2.05 m2 Body Mass Index: 28.16 . Mouth/Airway: Dental (from Forms) No dental information charted , Neck, Mouth, Jaw. Mallampati: Class 2. Dental status: Edentulous. Respiratory: Breath sounds equal bilaterally, no wheezing, no rhonchi, no rales. Cardiovascular: Rhythm: Regular. Results Review General results Laboratory Last 90 Days Chemistry 12/16/20 10:32, Sodium = 139 mMol/L 12/16/20 10:32, Potassium = 4.2 mMol/L 12/16/20 10:32, Chloride = 103 mMol/L 12/16/20 10:32, CO2 = 25 mMol/L 12/16/20 10:32, Glucose = 133 mg/dL H 12/30/20 08:05, Glucose POCT = 155 mg/dL H 12/16/20 10:32, BUN = 15 mg/dL 12/16/20 10:32, Creatinine = 0.81 mg/dL 12/16/20 10:32, Calcium Total = 9.6 mg/dL Hematology 12/16/20 10:32, WBC = 4.9 thou/mcL 12/16/20 10:32, RBC = 5.15 X(10)6/mcL 12/16/20 10:32, Hb = 15.7 gm/dL 12/16/20 10:32, Hematocrit = 46.0 % 12/16/20 10:32, Platelets = 271 thou/mcL 12/16/20 10:32, MCV = 89.3 FL 12/16/20 10:32, MCH = 30.5 Picograms 12/16/20 10:32, RDW = 13.4 % 12/16/20 10:32, MCHC = 34.1 gm/dL 12/16/20 10:32, Neutrophil Ab = 1.9 thou/mcL 12/16/20 10:32, Monocyte Ab = 0.4 thou/mcL 12/16/20 10:32, Eosinophil Ab = 0.1 thou/mcL 12/16/20 10:32, Basophil Ab = 0.0 thou/mcL 12/16/20 10:32, Lymphocyt (more content not included)...[facility] No data available for this section [facility] evaluation noteNo InformationN[place] Other History general Narrative - Reported* Type Description Date Medical History Anxiety Medical History diabetes mallitus Medical History left hip pain Surgical History kidney stone Hospitalization History see above [employer] Other History general Narrative - Reported* Type Description Date Medical History Anxiety Medical History diabetes mallitus Medical History left hip pain Surgical History kidney stone Surgical History Left hip replacement Hospitalization History see above [employer] Other Summary Purpose Family History No Family History Records FoundNo Family History Records FoundNo Family History Records Found Advance Directives No Advanced Directives Records FoundNo Advanced Directives Records FoundNo Advanced Directives Records Found Procedure Findings Note Patient: RIC SANCHEZ MRN : [id number] Age: 60 years Sex: Male : 1960 Associated Diagnoses: None Author: Sergo David MD Supervising Physician Comments Documentation By: Consulting Physician. Subjective Subjective: Patient participated in the evaluation: Yes. Nausea: not present. Vomiting: not present. Pain: acceptable pain control. Objective Objective: Vital Signs: Last Charted Vital Signs Temperature: 97.7 (12/30 13:53) Pulse: 75 (12/30 13:53) Respiration: 14 (12/30 13:53) BP: 143/87 (12/30 13:53) Pulse Ox: 96 (12/30 13:53) Oxygen Delivery: Room air (12/30 13:11) Pain Score: 6 (12/30 13:00) . Mental Status: alert and oriented. Postoperative hydration: adequate. Assessment Assessment: Post anesthetic condition: no anesthetic complications. Airway patent: yes. Plan Plan: Postanesthesia Plan: post anesthetic surveillance concluded. Additional Source Comments (unrecognized sect ion and content) No Status Records FoundNo Status Records FoundNo Status Records Found INFORMATION SOURCE (unrecogn ized section and content) DATE CREATED AUTHOR 03/01/2021 [facility] DATE CREATED AUTHOR AUTHOR'S ORGANIZ ATION 03/17/[address] [facility] DATE CREATED AUTHOR AUTHOR'S ORGANIZ ATION [facility] REASON FOR VISIT (unrecogniz ed section and content) Heart FluttersNo Information No InformationNo InformationLab ResultsMedication AErefillFOLLOW UPmedicationsinus infection, 2 wksSINUS INFECTION [id number] sugar check upNo InformationBS readingsBS NOT CONTROLLEDMedicationNo InformationLabsupdateneck ache, headache, cough, congestionLab results FOR RECORDS PERTAINING TO PATIENTS WHO ARE OR HAVE BEEN ENROLLED IN A CHEMICAL DEPENDENCY/SUBSTANCEABUSE PROGRAM, SOME INFORMATION MAY BE OMITTED. This clinical summary was aggregated from multiple sources. Caution should be exercised in using it in the provision of clinical care. This summary normalizes information from multiple sources, and as a consequence, information in this document may materially change the coding, format and clinical context of patient data. In addition, data may be omitted in some cases. CLINICAL DECISIONS SHOULD BE BASED ON THE PRIMARY CLINICAL RECORDS. [facility] [employer] [facility]. provides no warranty or guarantee of the accuracy or completeness of information in this document.
--- NOTE | 2023-06-13 09:28 | XR_ITS ---
The [address] [address] Patient Name: RIC SANCHEZ MRN: [id number] date: 1960 Sex: M Assigned Patient Location: [facility] Current Patient Location: [facility] Accession/Order Number: [id number] Exam Date: 06/13/2023 09:35 Report Date: 06/13/2023 09:46 At the request of: SP WU Procedure: XR chest 2V EXAM: XR chest 2V HISTORY: acute bronchitis J20.8 COMPARISON: None. TECHNIQUE: PA and lateral views of the chest. FINDINGS: The cardiomediastinal silhouette is normal. No focal consolidation is identified. There is no pneumothorax. No pleural effusion is noted. The osseous structures are intact. XR/XR chest 2V IMPRESSION: No acute cardiopulmonary process. Electronically authenticated by: MELINDA CHAU Date: 06/13/2023 09:46
== END 2023-06-13 09:22 | disposition home or self-care (01) ==
LOC: RAD 09:22
PROVIDERS: PCP Internal Medicine; Visit Provider Internal Medicine
DX: J20.8 Acute bronchitis due to other specified organisms (principal)
CPT/HCPCS: 71046

== ENCOUNTER 2023-07-21 07:22 | Outpatient (OUT) | payer OTHER, SELFPAY ==
--- OUTSIDE RECORDS SUMMARY | 2023-07-21 07:27 | XMS_ITS | CCD ---
Author Name Unknown Address [facility] [address] [place] [id number] Organization [facility] Care Team Providers Care Business Sales Consultant Name Role Phone CHRISTOPHER PEARCE Primary Care Physician Lino Ansari Attending Unavailable Elan, Lino Goodson Admitting Unavailable Elan, Lino Goodson Referring Unavailable Elan, Lino Goodson Attending Unavailable Elan, Lino Goodson Admitting Unavailable Ansari, Lino Goodson Referring Unavailable Ansari, Lino Goodson Referring Unavailable Ansari, Lino Goodson Attending Unavailable Elan, Lino Goodson [...] Drug Allergy 11-12-19 17 Unknown [facility] (2 sources) celecoxib; 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: [celecoxib] Drug Allergy 03-29-20 Unknown [facility] (14 sources) Iodine; 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: [iodine] Drug Allergy Unknown (qualifier value) [facility] Comment on above: pt states radioactiv e iodine only, not topical (1 source) Baclofen Drug Allergy 11-13-19 17 [facility] (1 source) celecoxib Drug Allergy 03-30-20 20 [facility] (1 source) Iodine (And Iodine Containting Drugs) Drug allergy (disorder) 03-30-20 20 [facility] (12 sources) Azithromycin Drug Allergy Unknown [facility] (20 sources) Ciprofloxacin Drug Allergy Unknown [facility] (12 sources) Sulfamethoxazole / Trimethoprim Drug Allergy Unknown [facility] (1 source) patient allergy list reviewed by nurse or physicia Propensity to adverse reactions 01-03-20 Comment:Done [facility] Other Medications Current Medications Medication Drug Class(es) Dates Sig (Normalized) Sig (Original) ALPRAZolam 0.5 mg oral tablet (20 sources) Benzodiazepine Start: 05-30-2023 take 1 tablet by mouth four times daily as needed for anxiety ALPRAZolam 0.5 MG TAKE 1 TABLET BY MOUTH FOUR TIMES A DAY NEEDED FOR ANXIETY for 30 May, Active Start: 11-03-2022 take 1 tablet by rochelle th four [...] Start: 03-17-2021 take 1 tablet by rochelle three times daily as needed for anxiety Xanax 0.5 mg Tab 0.5 mg = 1 tab(s), Oral, TID, PRN for anxiety, Refills(s) 0 Start Date: 03/17/21 Status: Ordered doxycycline hyclate 100 mg oral capsule (17 sources) Tetracycline-class Drug Start: 12-05-2022 take 1 capsule by mouth twice daily Doxycycline Hyclate 100 MG 1 capsule Orally twice daily for 7 days May, Active glimepiride 1 mg oral tablet (20 sources) Sulfonylurea Start: 08-23-2022 Glimepiride 1 MG 1 tablet Orally Once a day, taken 30 minutes prior to bkfst for 30 days Aug, Active Glimepiride 2 MG 1/2 Orally Once a day Active take 1 tablet by mouth at breakf ast Glimepiride 2 MG TAKE 1 TABLET BY MOUTH 30 MINUTES PRIOR TO BREAKFAST EVERY DAY Active take 1 tablet by mouth at breakf ast Glimepiride 1 MG TAKE 1 TABLET BY MOUTH 30 MINUTES PRIOR TO BREAKFAST Active 3 ml insulin glargine 100 unt/ml pen injector (8 sources) Insulin Analog Start: 03-22-2023 Lantus SoloSta r 100 UNIT/ML 10u Subcutaneous q HS, increase 2u every 3 days for 30 days Mar, Active Basaglar KwikPen 100 UNIT/ML 30units Active Basaglar KwikPen 100 UNIT/ML 10u, increase [...] mg / clavulanate 125 mg oral tablet (14 sources) Penicillin-class Antibacterial Start: 11-26-2022 take 1 tablet by mouth every twelve hours Amoxicillin-Pot Clavulanate 875-125 MG 1 tablet Orally every 12 hrs for 10 days Nov, Not-Taking/PRN dextromethorphan hydrobromide 15 mg / guaiFENesin 400 mg / pseudoephedrine hydrochloride 60 mg oral tablet (14 sources) alpha-Adrenergic Agonist, Uncompetitive C-femked-C-aspartate Receptor Antagonist, Sigma-1 Agonist Start: 11-26-2022 take [...] Start: 03-24-2021 take 1 tablet by rochelle once daily pioglitazone 30 mg Tab 30 [...] Onset: 08-31-2021 Chronic Diabetes mellitus without complication (15 sources) Type 2 diabetes mellitus without complication; [...] primary osteoarthritis, left hip] Chronic Other aftercare (8 sources) Long-term current use of insulin; 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: [terminal gauger (current) use of insulin] Episodic Other aftercare (1 source) terminal gauger (current) use of insulin Episodic Other connective [...] pain; 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: [Other chronic pain] Chronic Other non-traumatic joint disorders (1 source) Pain in left shoulder Episodic Other nutritional; endocrine; and metabolic disorders [...] 06-19-2017 Episodic Other aftercare (1 source) Other intermediate project manager (current) drug therapy; 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: [OTH SOLAR PHOTOVOLTAIC CREW LEAD CURRENT DRUG THERAPY] Onset: 01-27-2022 Episodic Other aftercare (1 source) halfway (current) use of oral hypoglycemic drugs; 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: [SOLAR PHOTOVOLTAIC CREW LEAD USE ORAL HYPOGLYCEMIC DX] Onset: 01-27-2022 Episodic [...] 08-17-2022 BASO # 0.0 103/ul Normal 0.0-0.[address] [facility] Comment on above: Performed By: #### C MP, TSH #### [facility] [address] [address] [address] Cipriano Simon Basophils/100 WBC (Bld) 0.8 % Normal 0.2-2.[address] [facility] Comment on above: Performed By: #### C MP, TSH #### [facility] [address] [address] [address] Cipriano Simon EO # 0.1 103/ul Normal 0.0-0.[address] [facility] Comment on above: Performed By: #### C MP, TSH #### [facility] [address] [place] [address] Dr. Cipriano Simon Eosinophils/100 WBC (Bld) 1.8 % Normal 0.9-7.[address] [facility] Comment on above: Performed By: #### C MP, TSH #### [facility] [address] [place] [address] Dr. Cipriano Simon Erythrocyte distribution width (RBC) [Ratio] 12.8 % Normal 11.0-15.[address] [facility] Comment on above: Performed By: #### C MP, TSH #### [facility] [address] [place] [address] Dr. Cipriano Simon Hematocrit (Bld) [Volume fraction] 46.3 % Normal 42.0-54.[address] [facility] Comment on above: Performed By: #### C MP, TSH #### [facility] [address] [place] [address] Dr. Cipriano Simon Hemoglobin (Bld) [Mass/Vol] 15.8 g/dL Normal 14.0-18.[address] [facility] Comment on above: Performed By: #### C MP, TSH #### [facility] [address] [place] [address] Dr. Cipriano Simon IG # 0.05 10e3/ul Critically high 0.00-0.03 [facility] Comment on above: Performed By: #### C MP, TSH #### [facility] [address] [place] [address] Dr. Cipriano Simon IG % 1.0 % Critically high 0.0-0.5 [facility] Comment on above: Performed By: #### C MP, TSH #### [facility] [address] [place] [address] Dr. Cipriano Simon LYMPH # 2.6 103/ul Normal 1.2-3.8 [facility] Comment on above: Performed By: #### C MP, TSH #### [facility] [address] [place] [address] Dr. Cipriano Simon Lymphocytes/100 WBC (Bld) 52.7 % Normal 20.5-60.[address] [facility] Comment on above: Performed By: #### C MP, TSH #### [facility] [address] [place] [address] Dr. Cipriano Simon MANUAL DIFF REQ NO Normal [facility] Comment on above: Performed By: #### C MP, TSH #### [facility] [address] [place] [address] Dr. Cipriano Simon MCH (RBC) [Entitic mass] 29.0 pg Normal 25.9-34.[address] [facility] Comment on above: Performed By: #### C MP, TSH #### [facility] [address] [place] [address] Dr. Cipriano Simon MCHC (RBC) [Mass/Vol] 34.1 g/dL Normal 29.9-35.[address] [facility] Comment on above: Performed By: #### C MP, TSH #### [facility] [address] [place] [address] Dr. Cipriano Simon MCV (RBC) [Entitic vol] 85.0 fL Normal 80.0-94.[address] [facility] Comment on above: Performed By: #### C MP, TSH #### [facility] [address] [place] [address] Dr. Cipriano Simon MONO # 0.4 103/ul Normal 0.3-0.[address] [facility] Comment on above: Performed By: #### C MP, TSH #### [facility] [address] [place] [address] Dr. Cipriano Simon Monocytes/100 WBC (Bld) 7.2 % Normal 1.7-12.[address] [facility] Comment on above: Performed By: #### C MP, TSH #### [facility] [address] [place] [address] Dr. Cipriano Simon NEUT # 1.8 103/ul Normal 1.4-6.[address] [facility] Comment on above: Performed By: #### C MP, TSH #### [facility] [address] [place] [address] Dr. Cipriano Simon Neutrophils/100 WBC (Bld) 36.5 % Critically low 43.0-75.[address] [facility] Comment on above: Performed By: #### C MP, TSH #### [facility] [address] [place] [address] Dr. Cipriano Simon Platelet mean volume (Bld) [Entitic vol] 10.7 fL Normal 9.5-13.[address] [facility] Comment on above: Performed By: #### C MP, TSH #### [facility] [address] [place] [address] Dr. Cipriano Simon PLT 214 103/ul Normal 150-[address] [facility] Comment on above: Performed By: #### C MP, TSH #### [facility] [address] [place] [address] Dr. Cipriano Simon RBC 5.45 106/ul Normal 4.70-6.[address] [facility] Comment on above: Performed By: #### C MP, TSH #### [facility] [address] [place] [address] Dr. Cipriano Simon WBC 5.0 103/ul Normal 4.0-11.[address] [facility] Comment on above: Performed By: #### C MP, TSH #### [facility] [address] [place] [address] Dr. Cipriano Simon GLYCOHEMOGLOBIN A1Con 2022 ADA RECOMMENDATION SEE BELOW Normal [facility] Comment on above: Result Comment: ADA RECOMMENDED LIMIT 4.0 - 6.0 ADA THERAPEUTIC TARGET < 7.0 ACTION SUGGESTED > 7.0 Performed By: #### C MP, TSH #### [facility] [address] [place] [address] Dr. Cipriano Simon Glucose [Mass/Vol] 209 mg/dL Normal [facility] Comment on above: Performed By: #### C MP, TSH #### [facility] [address] [place] [address] Dr. Cipriano Simon HbA1c (Bld) [Mass fraction] 8.9 % Critically high 4.5-6.[address] [facility] Comment on above: Performed By: #### C MP, TSH #### [facility] [address] [place] [address] Dr. Cipriano Simon MICROALBUMIN, RAND URon 03-0 mALB 1.8 mg/L Normal <=30.[address] [facility] Comment on above: Performed By: #### M ALBR #### [facility] [address] [place] [address] Dr. Cipriano Simon PROF 14(COMP METB)on 023 Albumin [Mass/Vol] 4.1 g/dL Normal 3.4-5.0 [facility] Comment on above: Performed By: #### C MP, TSH #### [facility] [address] [place] [address] Dr. Cipriano Simon Albumin/Globulin [Mass ratio] 1.2 {ratio} Normal [facility] Comment on above: Performed By: #### C MP, TSH #### [facility] [address] [place] [address] Dr. Cipriano Simon ALP [Catalytic activity/Vol] 106 U/L Normal 46-[address] [facility] Comment on above: Performed By: #### C MP, TSH #### [facility] [address] [place] [address] Dr. Cipriano Simon ALT [Catalytic activity/Vol] 42 U/L Normal 16-63 [facility] Comment on above: Performed By: #### C MP, TSH #### [facility] [address] [place] [address] Dr. Cipriano Simon Anion gap [Moles/Vol] 12.7 mmol/L Normal [facility] Comment on above: Performed By: #### C MP, TSH #### [facility] [address] [place] [address] Dr. Cipriano Simon AST [Catalytic activity/Vol] 15 U/L Normal 15-[address] [facility] Comment on above: Performed By: #### C MP, TSH #### [facility] [address] [address] [address] Cipriano Simon Bilirubin [Mass/Vol] 0.5 mg/dL Normal 0.2-1.[address] [facility] Comment on above: Performed By: #### C MP, TSH #### [facility] [address] [address] [address] Cipriano Simon Calcium [Mass/Vol] 8.9 mg/dL Normal 8.5-10.1 [facility] Comment on above: Performed By: #### C MP, TSH #### [facility] [address] [place] [address] Dr. Cipriano Simon Chloride [Moles/Vol] 101 mmol/L Normal 98-[address] [facility] Comment on above: Performed By: #### C MP, TSH #### [facility] [address] [place] [address] Dr. Cipriano Simon CO2 [Moles/Vol] 29.1 mmol/L Normal 21.0-32.0 [facility] Comment on above: Performed By: #### C MP, TSH #### [facility] [address] [place] [address] Dr. Cipriano Simon Creatinine [Mass/Vol] 0.95 mg/dL Normal 0.70-1.[address] [facility] Comment on above: Performed By: #### C MP, TSH #### [facility] [address] [place] [address] Dr. Cipriano Simon EGFR-AF SUDANESE >60 Normal >=60 [facility] Comment on above: Performed By: #### C MP, TSH #### [facility] [address] [place] [address] Dr. Cipriano Simon EGFR-NON AF SUDANESE >60 Normal >=[address] [facility] Comment on above: Performed By: #### C MP, TSH #### [facility] [address] [place] [address] Dr. Cipriano Simon Globulin (S) [Mass/Vol] 3.5 g/dL Normal [facility] Comment on above: Performed By: #### C MP, TSH #### [facility] [address] [place] [address] Dr. Cipriano Simon Glucose [Mass/Vol] 256 mg/dL Critically high 74-106 [facility] Comment on above: Performed By: #### C MP, TSH #### [facility] [address] [place] [address] Dr. Cipriano Simon Potassium [Moles/Vol] 3.8 mmol/L Normal 3.5-5.[address] [facility] Comment on above: Performed By: #### C MP, TSH #### [facility] [address] [place] [address] Dr. Cipriano Simon Protein [Mass/Vol] 7.6 g/dL Normal 6.4-8.2 [facility] Comment on above: Performed By: #### C MP, TSH #### [facility] [address] [place] [address] Dr. Cipriano Simon Sodium [Moles/Vol] 139 mmol/L Normal 136-145 [facility] Comment on above: Performed By: #### C MP, TSH #### [facility] [address] [place] [address] Dr. Cipriano Simon Urea nitrogen [Mass/Vol] 14.0 mg/dL Normal 7.0-18.[address] [facility] Comment on above: Performed By: #### C MP, TSH #### [facility] [address] [place] [address] Dr. Cipriano Simon Urea nitrogen/Creatinine [Mass ratio] 14.7 mg/mg Normal [facility] Comment on above: Performed By: #### C MP, TSH #### [facility] [address] [place] [address] Dr. Cipriano Simon TSHon 08-17-2022 TSH 1.540 uIU/mL Normal 0.358-3.740 [facility] Comment on above: Performed By: #### C MP, TSH #### [facility] [address] [place] [address] Dr. Cipriano Simon RAD - MISCon 03-16-2022 RAD - MISC [id number] Normal [facility] TESTOSTERONE, TOTALon 2021 Testosterone [Mass/Vol] 906 ng/dL Normal 264-[address] [facility] Comment on above: Result Comment: Adul t male reference interval is based on a population of healthy nonobese males (BMI <30) between 19 and 39 years old. Iban, et.al. JCEM 2017,102;6154-9465. PMID: [id number]. Performed By: #### C MP, TSH #### [facility] [address] [address] [address] Cipriano Simon GLYCOHEMOGLOBIN A1Con 2021 ADA RECOMMENDATION SEE BELOW Normal [facility] Comment on above: Result Comment: ADA RECOMMENDED LIMIT 4.0 - 6.0 ADA THERAPEUTIC TARGET < 7.0 ACTION SUGGESTED > 7.0 Performed By: #### A 1C #### [facility] [address] [address] [address] Cipriano Simon Glucose [Mass/Vol] 171 mg/dL Normal [facility] Comment on above: Performed By: #### A 1C #### [facility] [address] [address] [address] Cipriano Simon HbA1c (Bld) [Mass fraction] 7.6 % Critically high 4.5-6.[address] [facility] Comment on above: Performed By: #### A 1C #### [facility] [address] [address] [address] Cipriano Simon XR KUB 1 VIEWon [...] CASE SANDY Date: 2022-03-15 08:36 Normal [facility] XR LSPINE 2_3 VIEWSon 2021 XR [...] CASE SANDY Date: 2022-03-15 08:44 Normal [facility] AMYLASEon 01-25-2022 Amylase [Catalytic activity/Vol] 55 U/L Normal 25-115 [facility] Comment on above: Performed By: #### C MP, LIPA, CMADM, RISSA #### [facility] [address] [address] [address] Cipriano Simon CARDIAC MELINDA ADMITon 022 CK [Catalytic activity/Vol] 76 U/L Normal 39-[address] [facility] Comment on above: Performed By: #### C MP, LIPA, CMADM, RISSA #### [facility] [address] [address] [address] Cipriano Simon CK.MB [Mass/Vol] ng/mL Normal <=3.60 [facility] Comment on above: Performed By: #### C MP, LIPA, CMADM, RISSA #### [facility] [address] [address] [address] Cipriano Simon HSTROP 4.8 pg/mL Normal 4.0-76.[address] [facility] Comment on above: Result Comment: CUT- OFF POINTS HAVE BEEN ESTABLISHED BASED ON THE FOURTH UNIVERSAL DEFINITIONS OF MYOCARDIAL INFARCTION. THE UPPER REFERENCE LIMIT (URL) OF TROPONIN, DEFINED THE 99TH PERCENTILE OF cTnI DISTRIBUTION IN A REFERENCE POPULATION, HAS BEEN CONFIRMED THE DECISION THRESHOLD FOR WI DIAGNOSIS. Performed By: #### C MP, LIPA, CMADM, RISSA #### [facility] [address] [place] [address] Dr. Cipriano Simon GEOVANNA 33 ng/mL Normal 16-[address] [facility] Comment on above: Performed By: #### C MP, LIPA, CMADM, RISSA #### [facility] [address] [place] [address] Dr. Cipriano Simon CBC AUTO DIFFon 01-25-2022 BASO # 0.0 103/ul Normal 0.0-0.[address] [facility] Comment on above: Performed By: #### A 1C #### [facility] [address] [place] [address] Dr. Cipriano Simon Basophils/100 WBC (Bld) 0.3 % Normal 0.2-2.[address] [facility] Comment on above: Performed By: #### A 1C #### [facility] [address] [place] [address] Dr. Cipriano Simon EO # 0.1 103/ul Normal 0.0-0.[address] [facility] Comment on above: Performed By: #### A 1C #### [facility] [address] [place] [address] Dr. Cipriano Simon Eosinophils/100 WBC (Bld) 1.7 % Normal 0.9-7.[address] [facility] Comment on above: Performed By: #### A 1C #### [facility] [address] [place] [address] Dr. Cipriano Simon Erythrocyte distribution width (RBC) [Ratio] 12.7 % Normal 11.0-15.[address] [facility] Comment on above: Performed By: #### A 1C #### [facility] [address] [place] [address] Dr. Cipriano Simon Hematocrit (Bld) [Volume fraction] 43.3 % Normal 42.0-54.[address] [facility] Comment on above: Performed By: #### A 1C #### [facility] [address] [place] [address] Dr. Cipriano Simon Hemoglobin (Bld) [Mass/Vol] 15.1 g/dL Normal 14.0-18.[address] [facility] Comment on above: Performed By: #### A 1C #### [facility] [address] [place] [address] Dr. Cipriano Simon IG # 0.04 10e3/ul Critically high 0.00-0.03 [facility] Comment on above: Performed By: #### A 1C #### [facility] [address] [place] [address] Dr. Cipriano Simon IG % 0.6 % Critically high 0.0-0.5 [facility] Comment on above: Performed By: #### A 1C #### [facility] [address] [place] [address] Dr. Cipriano Simon LYMPH # 2.9 103/ul Normal 1.2-3.[address] [facility] Comment on above: Performed By: #### A 1C #### [facility] [address] [place] [address] Dr. Cipriano Simon Lymphocytes/100 WBC (Bld) 42.1 % Normal 20.5-60.[address] [facility] Comment on above: Performed By: #### A 1C #### [facility] [address] [place] [address] Dr. Cipriano Simon MANUAL DIFF REQ NO Normal [facility] Comment on above: Performed By: #### A 1C #### [facility] [address] [place] [address] Dr. Cipriano Simon MCH (RBC) [Entitic mass] 29.5 pg Normal 25.9-34.[address] [facility] Comment on above: Performed By: #### A 1C #### [facility] [address] [place] [address] Dr. Cipriano Simon MCHC (RBC) [Mass/Vol] 34.9 g/dL Normal 29.9-35.[address] [facility] Comment on above: Performed By: #### A 1C #### [facility] [address] [place] [address] Dr. Cipriano Simon MCV (RBC) [Entitic vol] 84.7 fL Normal 80.0-94.0 [facility] Comment on above: Performed By: #### A 1C #### [facility] [address] [address] [address] Cipriano Simon MONO # 0.4 103/ul Normal 0.3-0.8 [facility] Comment on above: Performed By: #### A 1C #### [facility] [address] [address] [address] Cipriano Simon Monocytes/100 WBC (Bld) 5.5 % Normal 1.7-12.[address] [facility] Comment on above: Performed By: #### A 1C #### [facility] [address] [place] [address] Dr. Cipriano Simon NEUT # 3.4 103/ul Normal 1.4-6.[address] [facility] Comment on above: Performed By: #### A 1C #### [facility] [address] [place] [address] Dr. Cipriano Simon Neutrophils/100 WBC (Bld) 49.8 % Normal 43.0-75.[address] [facility] Comment on above: Performed By: #### A 1C #### [facility] [address] [place] [address] Dr. Cipriano Simon Platelet mean volume (Bld) [Entitic vol] 9.4 fL Critically low 9.5-13.[address] [facility] Comment on above: Performed By: #### A 1C #### [facility] [address] [place] [address] Dr. Cipriano Simon PLT 238 103/ul Normal 150-450 [facility] Comment on above: Performed By: #### A 1C #### [facility] [address] [place] [address] Dr. Cipriano Simon RBC 5.11 106/ul Normal 4.70-6.10 [facility] Comment on above: Performed By: #### A 1C #### [facility] [address] [place] [address] Dr. Cipriano Simon WBC 6.9 103/ul Normal 4.0-11.0 [facility] Comment on above: Performed By: #### A 1C #### [facility] [address] [place] [address] Dr. Cipriano Simon LACTATE/LACTIC ACIDon 2021 Lactate [Moles/Vol] 1.2 mmol/L Normal 0.4-1.9 [facility] Comment on above: Performed By: #### A 1C #### [facility] [address] [place] [address] Dr. Cipriano Simon LIPASEon 01-25-2022 Lipase [Catalytic activity/Vol] 89.0 U/L Normal 73.0-393.[address] [facility] Comment on above: Performed By: #### C MP, LIPA, CMADM, RISSA #### [facility] [address] [place] [address] Dr. Cipriano Simon PROF 14(COMP METB)on 022 Albumin [Mass/Vol] 3.8 g/dL Normal 3.4-5.0 [facility] Comment on above: Performed By: #### C MP, LIPA, CMADM, RISSA #### [facility] [address] [place] [address] Dr. Cipriano Simon Albumin/Globulin [Mass ratio] 1.1 {ratio} Normal [facility] Comment on above: Performed By: #### C MP, LIPA, CMADM, RISSA #### [facility] [address] [place] [address] Dr. Cipriano Simon ALP [Catalytic activity/Vol] 111 U/L Normal 46-116 [facility] Comment on above: Performed By: #### C MP, LIPA, CMADM, RISSA #### [facility] [address] [place] [address] Dr. Cipriano Simon ALT [Catalytic activity/Vol] 41 U/L Normal 16-63 [facility] Comment on above: Performed By: #### C MP, LIPA, CMADM, RISSA #### [facility] [address] [place] [address] Dr. Cipriano Simon Anion gap [Moles/Vol] 11.5 mmol/L Normal [facility] Comment on above: Performed By: #### C MP, LIPA, CMADM, RISSA #### [facility] [address] [place] [address] Dr. Cipriano Simon AST [Catalytic activity/Vol] 16 U/L Normal 15-37 [facility] Comment on above: Performed By: #### C MP, LIPA, CMADM, RISSA #### [facility] [address] [place] [address] Dr. Cipriano Simon Bilirubin [Mass/Vol] 0.5 mg/dL Normal 0.2-1.[address] [facility] Comment on above: Performed By: #### C MP, LIPA, CMADM, RISSA #### [facility] [address] [place] [address] Dr. Cipriano Simon Calcium [Mass/Vol] 9.0 mg/dL Normal 8.5-10.1 [facility] Comment on above: Performed By: #### C MP, LIPA, CMADM, RISSA #### [facility] [address] [place] [address] Dr. Cipriano Simon Chloride [Moles/Vol] 101 mmol/L Normal 98-107 [facility] Comment on above: Performed By: #### C MP, LIPA, CMADM, RISSA #### [facility] [address] [place] [address] Dr. Cipriano Simon CO2 [Moles/Vol] 26.1 mmol/L Normal 21.0-32.0 [facility] Comment on above: Performed By: #### C MP, LIPA, CMADM, RISSA #### [facility] [address] [place] [address] Dr. Cipriano Simon Creatinine [Mass/Vol] 0.84 mg/dL Normal 0.70-1.30 [facility] Comment on above: Performed By: #### C MP, LIPA, CMADM, RISSA #### [facility] [address] [place] [address] Dr. Cipriano Simon EGFR-AF SUDANESE >60 Normal >=60 [facility] Comment on above: Performed By: #### C MP, LIPA, CMADM, RISSA #### [facility] [address] [place] [address] Dr. Cipriano Simon EGFR-NON AF SUDANESE >60 Normal >=[address] [facility] Comment on above: Performed By: #### C MP, LIPA, CMADM, RISSA #### [facility] [address] [address] [address] Cipriano Simon Globulin (S) [Mass/Vol] 3.4 g/dL Normal [facility] Comment on above: Performed By: #### C MP, LIPA, CMADM, RISSA #### [facility] [address] [address] [address] Cipriano Simon Glucose [Mass/Vol] 245 mg/dL Critically high 74-106 [facility] Comment on above: Performed By: #### C MP, LIPA, CMADM, RISSA #### [facility] [address] [place] [address] Dr. Cipriano Simon Potassium [Moles/Vol] 3.6 mmol/L Normal 3.5-5.[address] [facility] Comment on above: Performed By: #### C MP, LIPA, CMADM, RISSA #### [facility] [address] [address] [address] Cipriano Simon Protein [Mass/Vol] 7.2 g/dL Normal 6.4-8.2 [facility] Comment on above: Performed By: #### C MP, LIPA, CMADM, RISSA #### [facility] [address] [place] [address] Dr. Cipriano Simon Sodium [Moles/Vol] 135 mmol/L Critically low 136-145 [facility] Comment on above: Performed By: #### C MP, LIPA, CMADM, RISSA #### [facility] [address] [address] [address] Cipriano Simon Urea nitrogen [Mass/Vol] 13.0 mg/dL Normal 7.0-18.[address] [facility] Comment on above: Performed By: #### C MP, LIPA, CMADM, RISSA #### [facility] [address] [place] [address] Dr. Cipriano Simon Urea nitrogen/Creatinine [Mass ratio] 15.5 mg/mg Normal [facility] Comment on above: Performed By: #### C MP, LIPA, CMADM, RISSA #### [facility] [address] [place] [address] Dr. Cipriano Simon XR ABD FLAT UP_PA Veknat 01-25 XR ABD FLAT UP_PA CH EXAM: [...] BRIA WELLINGTON Date: 2022-01-25 02:00 Normal [facility] CBC AUTO DIFFon 12-21-2021 BASO # 0.0 103/ul Normal 0.0-0.[address] [facility] Comment on above: Performed By: #### C MP, TSH #### [facility] [address] [place] [address] Dr. Cipriano Simon Basophils/100 WBC (Bld) 0.5 % Normal 0.2-2.0 [facility] Comment on above: Performed By: #### C MP, TSH #### [facility] [address] [address] [address] Cipriano Simon EO # 0.2 103/ul Normal 0.0-0.7 [facility] Comment on above: Performed By: #### C MP, TSH #### [facility] [address] [place] [address] Dr. Cipriano Simon Eosinophils/100 WBC (Bld) 2.9 % Normal 0.9-7.[address] [facility] Comment on above: Performed By: #### C MP, TSH #### [facility] [address] [place] [address] Dr. Cipriano Simon Erythrocyte distribution width (RBC) [Ratio] 13.0 % Normal 11.0-15.[address] [facility] Comment on above: Performed By: #### C MP, TSH #### [facility] [address] [place] [address] Dr. Cipriano Simon Hematocrit (Bld) [Volume fraction] 44.9 % Normal 42.0-54.[address] [facility] Comment on above: Performed By: #### C MP, TSH #### [facility] [address] [place] [address] Dr. Cipriano Simon Hemoglobin (Bld) [Mass/Vol] 15.7 g/dL Normal 14.0-18.[address] [facility] Comment on above: Performed By: #### C MP, TSH #### [facility] [address] [place] [address] Dr. Cipriano Simon IG # 0.03 10e3/ul Normal 0.00-0.[address] [facility] Comment on above: Performed By: #### C MP, TSH #### [facility] [address] [place] [address] Dr. Cipriano Simon IG % 0.5 % Normal 0.0-0.[address] [facility] Comment on above: Performed By: #### C MP, TSH #### [facility] [address] [place] [address] Dr. Cipriano Simon LYMPH # 2.6 103/ul Normal 1.2-3.[address] [facility] Comment on above: Performed By: #### C MP, TSH #### [facility] [address] [place] [address] Dr. Cipriano Simon Lymphocytes/100 WBC (Bld) 44.6 % Normal 20.5-60.[address] [facility] Comment on above: Performed By: #### C MP, TSH #### [facility] [address] [place] [address] Dr. Cipriano Simno MANUAL DIFF REQ NO Normal [facility] Comment on above: Performed By: #### C MP, TSH #### [facility] [address] [place] [address] Dr. Cipriano Simon MCH (RBC) [Entitic mass] 29.7 pg Normal 25.9-34.[address] [facility] Comment on above: Performed By: #### C MP, TSH #### [facility] [address] [place] [address] Dr. Cipriano Simon MCHC (RBC) [Mass/Vol] 35.0 g/dL Normal 29.9-35.2 [facility] Comment on above: Performed By: #### C MP, TSH #### [facility] [address] [place] [address] Dr. Cipriano Simon MCV (RBC) [Entitic vol] 84.9 fL Normal 80.0-94.[address] [facility] Comment on above: Performed By: #### C MP, TSH #### [facility] [address] [place] [address] Dr. Cipriano Simon MONO # 0.4 103/ul Normal 0.3-0.[address] [facility] Comment on above: Performed By: #### C MP, TSH #### [facility] [address] [place] [address] Dr. Cipriano Simon Monocytes/100 WBC (Bld) 7.0 % Normal 1.7-12.[address] [facility] Comment on above: Performed By: #### C MP, TSH #### [facility] [address] [place] [address] Dr. Cipriano Simon NEUT # 2.6 103/ul Normal 1.4-6.5 [facility] Comment on above: Performed By: #### C MP, TSH #### [facility] [address] [place] [address] Dr. Cipriano Simon Neutrophils/100 WBC (Bld) 44.5 % Normal 43.0-75.0 [facility] Comment on above: Performed By: #### C MP, TSH #### [facility] [address] [place] [address] Dr. Cipriano Simon Platelet mean volume (Bld) [Entitic vol] 9.3 fL Critically low 9.5-13.[address] [facility] Comment on above: Performed By: #### C MP, TSH #### [facility] [address] [place] [address] Dr. Cipriano Simon PLT 215 103/ul Normal 150-[address] [facility] Comment on above: Performed By: #### C MP, TSH #### [facility] [address] [place] [address] Dr. Cipriano Simon RBC 5.29 106/ul Normal 4.70-6.[address] [facility] Comment on above: Performed By: #### C MP, TSH #### [facility] [address] [place] [address] Dr. Cipriano Simon WBC 5.9 103/ul Normal 4.0-11.[address] [facility] Comment on above: Performed By: #### C MP, TSH #### [facility] [address] [place] [address] Dr. Cipriano Simon GLYCOHEMOGLOBIN A1Con 2021 ADA RECOMMENDATION SEE BELOW Normal [facility] Comment on above: Result Comment: ADA RECOMMENDED LIMIT 4.0 - 6.0 ADA THERAPEUTIC TARGET < 7.0 ACTION SUGGESTED > 7.0 Performed By: #### A 1C #### [facility] [address] [place] [address] Dr. Cipriano Simon Glucose [Mass/Vol] 169 mg/dL Normal [facility] Comment on above: Performed By: #### A 1C #### [facility] [address] [place] [address] Dr. Cipriano Simon HbA1c (Bld) [Mass fraction] 7.5 % Critically high 4.5-6.[address] [facility] Comment on above: Performed By: #### A 1C #### [facility] [address] [place] [address] Dr. Cipriano Simon LIPID PROFILEon 12-21-2021 CHOL-HDL RATIO NORM SEE BELOW Normal [facility] Comment on above: Result Comment: 3.3 - 4.4 LOW RISK 4.4 - 7.1 AVERAGE RISK 7.1 - 11.0 MODERATE RISK >11.0 HIGH RISK Performed By: #### C MP, TSH #### [facility] [address] [address] [address] Cipriano Simon Cholesterol [Mass/Vol] 185 mg/dL Normal <=[address] [facility] Comment on above: Performed By: #### C MP, TSH #### [facility] [address] [address] [address] Cipriano Simon Cholesterol in HDL [Mass/Vol] 39 mg/dL Critically low 40-[address] [facility] Comment on above: Performed By: #### C MP, TSH #### [facility] [address] [address] [address] Cipriano Simon Cholesterol in LDL [Mass/Vol] 99.2 mg/dL Normal [facility] Comment on above: Performed By: #### C MP, TSH #### [facility] [address] [address] [address] Cipriano Simon Cholesterol.total/Ch olesterol in HDL [Mass ratio] 4.7 {ratio} Normal [facility] Comment on above: Performed By: #### C MP, TSH #### [facility] [address] [address] [address] Cipriano Simon HDL NORMAL > or = 60 mg/dl - LO W CARDIOVASCULAR RISK <40 mg/dl - HIGH CARDIOVASCULAR RISK Normal [facility] Comment on above: Performed By: #### C MP, TSH #### [facility] [address] [address] [address] Cipriano Simon LDL CALC NORMAL SEE BELOW Normal [facility] Comment on above: Result Comment: <100 mg/dl OPTIMAL 100 - 129 mg/dl NEAR OR ABOVE OPTIMAL 130 - 159 mg/dl BORDERLINE HIGH 160 - 189 mg/dl HIGH >190 mg/dl VERY HIGH Performed By: #### C MP, TSH #### [facility] [address] [address] [address] Cipriano Simon Triglyceride [Mass/Vol] 234 mg/dL Critically high <=[address] [facility] Comment on above: Performed By: #### C MP, TSH #### [facility] [address] [place] [address] Dr. Cipriano Simon VLDL CALC 46.8 mg/dL Normal [facility] Comment on above: Performed By: #### C MP, TSH #### [facility] [address] [place] [address] Dr. Cipriano Simon MICROALBUMIN, RAND URon 07- mALB <1.3 Normal <=30.[address] [facility] Comment on above: Performed By: #### M ALBR #### [facility] [address] [place] [address] Dr. Cipriano Simon PROF 14(COMP METB)on 022 Albumin [Mass/Vol] 3.9 g/dL Normal 3.4-5.0 [facility] Comment on above: Performed By: #### C MP, TSH #### [facility] [address] [place] [address] Dr. Cipriano Simon Albumin/Globulin [Mass ratio] 1.1 {ratio} Normal [facility] Comment on above: Performed By: #### C MP, TSH #### [facility] [address] [place] [address] Dr. Cipriano Simon ALP [Catalytic activity/Vol] 96 U/L Normal 46-[address] [facility] Comment on above: Performed By: #### C MP, TSH #### [facility] [address] [place] [address] Dr. Cipriano Simon ALT [Catalytic activity/Vol] 51 U/L Normal 16-63 [facility] Comment on above: Performed By: #### C MP, TSH #### [facility] [address] [place] [address] Dr. Cipriano Simon Anion gap [Moles/Vol] 13.4 mmol/L Normal [facility] Comment on above: Performed By: #### C MP, TSH #### [facility] [address] [place] [address] Dr. Cipriaon Simon AST [Catalytic activity/Vol] 15 U/L Normal 15-[address] [facility] Comment on above: Performed By: #### C MP, TSH #### [facility] [address] [place] [address] Dr. Cipriano Simon Bilirubin [Mass/Vol] 0.8 mg/dL Normal 0.2-1.0 [facility] Comment on above: Performed By: #### C MP, TSH #### [facility] [address] [place] [address] Dr. Cipriano Simon Calcium [Mass/Vol] 8.8 mg/dL Normal 8.5-10.1 [facility] Comment on above: Performed By: #### C MP, TSH #### [facility] [address] [place] [address] Dr. Cipriano Simon Chloride [Moles/Vol] 105 mmol/L Normal 98-[address] [facility] Comment on above: Performed By: #### C MP, TSH #### [facility] [address] [place] [address] Dr. Cipriano Simon CO2 [Moles/Vol] 25.4 mmol/L Normal 21.0-32.0 [facility] Comment on above: Performed By: #### C MP, TSH #### [facility] [address] [place] [address] Dr. Cipriano Simon Creatinine [Mass/Vol] 0.91 mg/dL Normal 0.70-1.[address] [facility] Comment on above: Performed By: #### C MP, TSH #### [facility] [address] [place] [address] Dr. Cipriano Simon EGFR-AF SUDANESE >60 Normal >=60 [facility] Comment on above: Performed By: #### C MP, TSH #### [facility] [address] [place] [address] Dr. Cipriano Simon EGFR-NON AF SUDANESE >60 Normal >=[address] [facility] Comment on above: Performed By: #### C MP, TSH #### [facility] [address] [place] [address] Dr. Cipriano Simon Globulin (S) [Mass/Vol] 3.6 g/dL Normal [facility] Comment on above: Performed By: #### C MP, TSH #### [facility] [address] [place] [address] Dr. Cipriano Simon Glucose [Mass/Vol] 198 mg/dL Critically high 74-106 [facility] Comment on above: Performed By: #### C MP, TSH #### [facility] [address] [place] [address] Dr. Cipriano Simon Potassium [Moles/Vol] 3.8 mmol/L Normal 3.5-5.[address] [facility] Comment on above: Performed By: #### C MP, TSH #### [facility] [address] [place] [address] Dr. Cipriano Simon Protein [Mass/Vol] 7.5 g/dL Normal 6.4-8.2 [facility] Comment on above: Performed By: #### C MP, TSH #### [facility] [address] [place] [address] Dr. Cipriano Simon Sodium [Moles/Vol] 140 mmol/L Normal 136-145 [facility] Comment on above: Performed By: #### C MP, TSH #### [facility] [address] [place] [address] Dr. Cipriano Simon Urea nitrogen [Mass/Vol] 13.0 mg/dL Normal 7.0-18.[address] [facility] Comment on above: Performed By: #### C MP, TSH #### [facility] [address] [place] [address] Dr. Cipriano Simon Urea nitrogen/Creatinine [Mass ratio] 14.3 mg/mg Normal [facility] Comment on above: Performed By: #### C MP, TSH #### [facility] [address] [place] [address] Dr. Cipriano Simon VITAMIN B12on 12-21-2021 Cobalamin (Vitamin B12) [Mass/Vol] 647.0 pg/mL Normal 193.0-986.[address] [facility] Comment on above: Performed By: #### C MP, TSH #### [facility] [address] [place] [address] Dr. Cipriano Simon Ambulatory Visit Summaryon 0 11-09-2021 Ambulatory Visit Summary RIC SANCHEZ :1960 Visit Date:11/09/2021 Ambulatory Visit Instructions Your Diagnosis Kidney stone Tests Performed Urnls Dip Stick Auto w/o Microscopy POC 31277 XR Abdomen 1 View -- Results Pending [...] Follow Up with Elan Peterson MD, Lino Goodson, URO When: In 6 months 05/12/2022 EST Comments: w/kub Where: [facility] [address] , [place] [address]- Medications What How Much When Instructions Unchanged [...] Urnls Dip Stick Auto w/o Microscopy POC 04752 (11/09/2021) Bilirubin Urine Dipstick - Negative Blood Urine Dipstick - Negative Glucose Urine Dipstick - 3+ 1000 mg/dl Ketones Urine Dipstick - Trace - 5 mg/dl Leukocytes Urine Dipstick - Negative Nitrite Urine Dipstick - Negative Protein Urine Dipstick - Negative Specific [place] Urine Dipstick - 1.020 Urine Appearance Urine [...] usuall (more content not included)... Normal [facility] Patient Educationon 11-10-19 Patient Education Urology Kidney Stones Kidney stones [...] these instructions at home: Medicines ? Take mdsq-pih-rjalozn and prescription medicines only as told by [...] 11/14/2008 Document Revised: 10/15/2019 Document Reviewed: 10/15/2019 [employer] Patient Education ? 2019 [facility] Urology Office/Clinic Noteon 11-09-2021 Urology Office/Clinic [...] Urnls Dip Stick Auto w/o Microscopy POC 68239 Urnls Dip Stick Auto w/o Microscopy POC 48151 XR Abdomen 1 View XR Abdomen 1 View Follow-up With When Contact Information Elan Peterson MD, Lino Goodson, URO In 6 months 05/12/2022 [facility] [address] [place] [address]- Additional Instructions: w/kub Patient Education Kidney Stones, Xerl-rj-Depl Grace Elizabeth personally scribed for Dr. Ansari on 11/09/2021 09:46:54. . Documentation recorded by the scribeGrace, accurately reflects the services(s) I performed and decisions made by me. Authenticated by Lino Ansari MD on [ Current Date and Time ]. Problem List/Past Medical History Ongoing No qualifying data Historical No qualifying data Procedure/Surgical History ESWL - Extracorporeal shockwave lithotripsy for renal calculus (04/11/2008), Hip replac (more content not included)... Normal [facility] Comment on above: Result Comment: Elec tronically Signed By: Lino Ansari Jr., MD\.br\Date and Time Signed: 11/09/21 09:52 EDT\.br\Electronically Co-Signed By: Grace Marin MA\.br\Date and Time Co-Signed: 11/09/21 09:47 EDT GLYCOHEMOGLOBIN A1Con 2021 ADA RECOMMENDATION ADA THERAPEUTIC TARG ET 6.0 - 7.0 ACTION SUGGESTED > 7.[address] [facility] Comment on above: Performed By: #### C MP, TSH #### [facility] [address] [address] [address] Cipriano Simon Glucose [Mass/Vol] 148 mg/dL Normal [facility] Comment on above: Performed By: #### C MP, TSH #### [facility] [id number] Cipriano Simon HbA1c (Bld) [Mass fraction] 6.8 % Critically high <=6.[address] [facility] Comment on above: Performed By: #### C MP, TSH #### [facility] [address] [address] [address] Cipriano Simon Formson 04-08-2021 Forms [id number] 0CD:127 Normal [facility] Coding Summary.on 04-07-2021 Coding Summary. CD:[id number] Gh 0bWw+PGhlYWQ+JI0QAEWvB 65oxJKjhO3SM0hKNV2BUSE DFGXXHU4QWP9ibTW5MHdxO 2VybiAv NqwecFNhMG54DXt9SZS2cL fjNDlmrA5hoNZvG3o0XvRm TN33zT19XMqfXMTiXcV0Ue ZpbjsgbWFy B8zpTzUehWNtYeb+PHRhYm xlIHdpZHRoPScxMDAlJyBz pFxoOK3dVu4qTOEhWSKdkT xhcHNlOiBj s9zmWPZyZBwgQA7keOeeB4 SgiJW5TGUll2a3Cg97kFX+ ZVYyGTT6jTcyPOrpl209Ev Sxc7jhQBL4 yCPaNRqzZIC7B70rj1R4ID EpKKEuRND0mXZ2nH4mkSwm onnfR2KkdNSaLbM0HUZ8lU HijU3zqGhm oymhfF7jNgj+N77HXJ4MCP IQIO6CKse8D9CnFtbrdUB+ SV50KAQgVQ47gBPpmQYqj6 dyiEm5BvCy KFUyUJT1pVybSXruu7JxSF FlM12sbGPny6F9DPPuzTfq uLMhObEtqRN8xC7eUUdofu awj1fpzepg Huhlh8egrt50rJ49Z54tNI zqGUZxWTW5KQKzIBGatOoi gt2ifV1sOq5+ZZxtx9czj2 dlqNn3MpSi EQTlpwSrvBmoTJX9m4LhAl 26S1BrrXkar6WxPha0xi42 aAHea3A9kTH6EXboBSKstM 5mKDelOxE7 GYHlUmTpfU09lIYcKQtwZi 1boPjkvSreIE7wZZSlfary TWQlzK7pZYLapZLlgFxrQP 4wNTBpbjtm g055DzMlREC6PLJoyWKaX6 AoqX6uMeZaNKMbTNXhI4Ha kRDtOTlxW042MDwqPvV8YT RuezMvW8Us YXQbbLejDoZ5q4A0Cr6Oy9 TkxyrhVXC7UAkuPQQtUgE9 UoBgYiY1W6QqUtq3NSSsgR mqPN3pC9Vm DBDhryxsjrnevQH8CATeNZ ReqA80fPFxMAorYo2hy3V6 j712JPTxNULdoX12Nm3daF ogMTBwdCBU mV4smnifd2gmhltaMbSoIH OpZPy6RIj9ZSZyeNnjTkFp ZSM9IjG8BMB1cKYreT3yuW smfzhbrB2o Oyc+F64kgP5jCGR9EXL5yh liMQPtzqWrGB98YP91Y4Ij PjwvdGFibGU+PGRpdiBzdH dwAQ0aPiYg a6aid3FbXTifC9JvHFSiHI ngMot0OSYsVHU5zCF2zQ3g UJTlAZtzx5I1fVD9P0Qsfq Taby3ka6pl SCCpQYjuO92bnSVku7Y8SP BgaAA0MNCahOxaNnJbfI49 Oyc+XNGviMous8CoDkrpl6 xuu0jfxNe2 OuMyOKOhekFikJavGKT6a5 UdJm75I49gZXaiASSeKQSq SWKtCDTgrEfgae5ruX3iHm 8+PGNvbCB3 fMR1bW7mCTObUqU4CNxfN1 34EwPmfQPjTywha6wjt2nj oAy5VaBkWBBcdnHvaIpdWG X5k7BsMb26 J23mUCgdHLEoSNEwNIBvLD OudXjfee6zvL4xVo4+PC9j b3sxbg17eG48cSM+PHRkIH S3uIxcIFej DCBmxU1fIOdrKfO2UDEaRx BrsL12bABkRRztFj2btHjx rHilEI1vCRYtskvxl484He Ibn7ufCBAl jTVaQOxiHNX5B20qf6K8EJ CwXWApWOP6eWX4hY9vwBvw bjogbGVmdDsgdmVydGljYW mjATphW212 IHRvcDsnPlBhdGllbnQgTm QtDXj8K7YtAry5EFIlnFyo WO0etSZqNUvpAs9bcXvedU mbVP0nOBTz brlok333OdXpr3lgPHPyaE KbVXslGFT1H44tn5E3KPBd AHUzEUD0cIS0aP2tpOwwzz ogbGVmdDsg cwGslOgbLHzaDFewJ315IM RvcDsnPkJpcnRoIERhdGU6 LW34OY77aFIdu3T5pZI2I9 BhZGRpbmct vafwwOT3YDVkVOBosE39Vy 3hsRodJt0jGACeFIR1PCRu oSJyY9WisG2jJqAdWNQyYN JqC5MhyNIy NTqvV007WRvjRfH5PDAbui QkD0VtYIRfxPjpFgA4m1G4 Ky7EI9A9JK69DI71vHXxh7 R7dEI5B9Jl XOZwtuqkquzvzID1UQCmOX JfbU50Hk1kvIonLh9vRYBr GWO6ASHhfPQdX9RczI4hLt AjMDAwMDAw C8IhqZLlHZryD822OSdsQb J5OLYpmyHmZ4IiNHIbmCkt WxS3k5Q2Mt1UXVn0DY66FS 50pLOdf0N5 qHK1M1OdNVYcypfqnxmkxN Z4ECRcGRSiiH08Cq1mmOvl Qd8zQRUxAHS9TMQcnVGxJ6 WqpT0rPpYy ONAhHKJwH4McjNJdTCreK7 99QLtxAgT7IQIhdtZzD3Cm WDJluHlmUcB4x3A8Qz8EET ViYU82OVP3 tIK1FB38OZ71S4BhFezajF FibGU+PHRhYmxlIHdpZHRo DEskZDPeInQmoJrsFY3eGf 9yZGVyLWNv iPrkyZRbTyLbm9mmJACpQM nmKT9tnKzvV7XfrIK3GHSw q7l6Xf84N54jJ8CjnIX+PG JipCJ9hPJ0 jN7dLoPbEsN4YOrlU231Zv QylXFyYubgu5wjt3nucXm6 LnH0ECSeevAujDudJCW6c0 EjYf59K00x IHdpZHRoPSIxNSUiIHZhbG qvdu9dsC8nZl2+PGNvbCB3 uSK7bP6zTxFvAsH6LCpfT6 49InRvcCIv Crtsb8ztg2jlvPu5LbBbHE ForcMimYxkTRF5g7GzNo06 Q9EviGttv8VkZdg5ya37dZ Val2Z8mTI2 N3JePJXpivhprGQxjWxeBF 6jOXUaatcuGSGchE7jNJLi H8l3KcZwLhA3IXjhH1Rpsf R3MQMlkOOy YTcxMEW1Q39id5L6XMJfAG AvYOJ4iVD1hG0qyCmlvmxv bGVmdDsgdmVydGljYWwtYW mbA199IOWh hMxhAIRhaH4zUYVcdWWjrS yrMO8zUVIinpfgEe2MOC3a ZCoOWHdCKrq9P0IrCtp2YY FrgFcnRZ8q gFOpOUqkYt7eqUbvfRcbEN 4wXYCqpelwUNWswF6cDQXb mBPvkNbxKY6pIBPhvczrp9 79PpMqMQF6 PVGjsOCdB9HroM8gItCsIM JbYOWyN3CvqHOcNBqjR023 LKyuUtF9NAMdtzShJ7BwUY FsaWduOiB0 y9C0Mp3gUt1vPm1ePJFkHJ 73PN76gKDuh4R1oZJ8H2As YUKeeeomomvgkDI8KMGcWI WbyK94kZHp ELwpWi5lr0K7b441DFTxBJ VtoQ21Bm0hjCrjRYQemFHQ hL6xkadpd4dpbpucJbRwBE PyLPn9QWp6 JOAveOnvFrHjCFX6KtG0QX D5jFCytN0jvAulnjtcbF3b Oyc+GJluRCWwtyD6U8VzBn q9MIMauAmt GJ0qyLBmESxuWv0shLjglB hxKS5bNZCrrliyFWEksB1l WOBzyGUqjCeiEJ0zMMRrkx dfr967WlLl GVQ0QRFndJSxU2CogL9wZq CnVUHaLGIxQ1PleMNfPGhq L837AEuxXwG0IPMqmeWuT7 FsLWFsaWdu PeP6n5Y3Gz9XABooPO10LR 61eHGiv4L3aDU1N3EqDRJe dsfifcceqTS8HSDyJKXavD 47cGFkZGlu Vv6wl6N1y040QRHtZUJgiK 18Lu3klZzpFYGchHELvG5a pwnni1qtolchSrWiJZNhYA u9FCf6SXYk zHacIiLrEJQ1IkE2AZP8kZ MhgH3caSjftiianY6tIyb+ J6T4wEU2bRVgoRuodEG+PC 87cu05V9Aq KnapQqm9MDZrKZH0hVE6uP 0nXRPtLVnmf8Z3hHO9K5Fz ocNbbe6zf4uaHTLaMKrrC3 6qrMAyp4Q4 RSCszUT6UWWedRfcWvBynH 93Oyc+FLPlrIkfk8EtDuvt f4pbi9ecvQx4RyFlNFHjxs FsaWduPSJ0 j7XoLk78E22kKFhyVFQxUE TfTUBpVLEhyXiobu1paM7x Ii8+OAWpgBO0iFB7fE6yAw QrHgW8XGud Y843EoXgnDRdWxmbg4mfm0 mafGv1XgFmYVSajkYflGxk HSF5i2OnTp35B7LtlBsfy5 YtIfc3up40 kILwx1Y1rEP6P2MsSYBngk oagEUfeJglLQ7yKJSkzxbg GMLeeW3zBJLyH9c1DyCrMq V0VOdzO4Wq udX8BYArcKViZZIveKHBsI 3pazryb5jzjoklTjMxADAk MTm5BXd9JZXkmTywBjAqZS C1RtL1USP8 jWRjjY3roDixpmuszZ7uGd c+PCp0w2cinMDfTG1sdJU0 EZ99QH91wCBwo7D8lQZ8G4 BhZGRpbmct ptlriXN7ZNGqDFXogP92Hf 7nmUefEr0aBAWiPXH9EQMx dAXwD0YdvQ6aKlWnRCKmSJ FkB6BypUYr MNwcN120CFjjNdF5UIUbfv AgY8TlZCWdwDudUkT1n3V2 Sj2JFR97UJ58BZ59rEWvu4 D7dJJ7Q2Lz BTZgndaoxfcfwRU8YVZwEK PbpX95Ig7nhWmtMg6eEAZx KLX7QPSliHOnX6WciZ5jZh AjMDAwMDAw D7QtiBInNTbbV442UNufQk O4PTVpacUiX5GeQDByyAbi HnD7i1R6Tx3RXc33BY22MK 56kMFvm4D0 nPG2H1CuSGPzigidltnlhY B0VBQoCMQokG15Fi1yzGoc Mt6vWLCjDFV1HGOaiTIfI1 FoqP4gYuOa LVXdJLDwP5EksZPgTKawV9 17TIlfChN9QIJnxmVbV8Pw TOCuaJmnAzP4a8U5Qb7MVV olhnr0Y5Kb PjwvdHI+KG00XXYbBK33uP KgsVLwl0peiXf5FkFtXPYr YER6qBbhTUaxx4XmZLGaQ8 6uhUQcq5U8 IGNv (more content not included)... [facility] Consent for Procedure/Surger yon 04-06-2021 Consent for Procedure/Surgery [id number]#1. 00CD:127 [facility] IntraOperative Documentson 1 IntraOperative Documents [id number]#1. 00CD:127 [facility] Pre-Certification Formon Pre-Certification Form [id number]#1.0 0CD:127 [facility] Coding Summary.on 04-02-2021 Coding Summary. CD:[id number] Gh 0bWw+PGhlYWQ+EP3CALSrQ 80raLWlgS3VM9zRUQ5JFDW IMFSKGH1HAG2jeIB4TLmtK 2VybiAv UpkhwGIpLB40MEb8ZBK2yT ezNJpoaF3jwENfO9y1VtHu SM26oO82UVdyZJOgPlU9Rq ZpbjsgbWFy B4ciKbZooIGhCla+PHRhYm xlIHdpZHRoPScxMDAlJyBz lUwvAM0qYb9tYAApYYPdxC xhcHNlOiBj w9deHCVkJNgcDP1omYgbC3 PthTQ2WSAwk8t5Dd43aDA+ LCVhEUD5iYfmSKwdi991Lz Pbt6joEYV1 zBNwJBgdHFA3E46yf4F4TS RwYZKtPZM0dND7kQ0byUmm jmqtY3BkuBTfHzW4AXG6cC VqnC8nlOpe vxgbpU9tOke+Q21HBM0RMG LSFU2SYub5G3SbXdhysTC+ PH39KINaID15nRAlcLErq2 ozwNh5QvTj OKOwFCX0aAkiRFyyq9JrPS WoC15baNTsg7Y7YPIfxXfd oXPhGnFgeGB9gT8wJWshwr sml3vudwhd Wglqk2esba66rZ76F91bGU naFSObWVS6LWXnFHIdzJgb ci4vsW7bYf1+KQxld0qfn7 rzuFd0LtXl ZWNjprYplRpjTQF7x8GkSq 03B1VmtZpds5FpWcu2zy09 tCEkf8G3yFH6YEskSXTngL 5pFUstUzT1 EBJiYqIymY11xQXkHBymWb 4yaJrzfZafPD2wMKCoahyv NPKwsP1oYAOosEPhfZkgWV 4wNTBpbjtm x430VtVzMUA5TOIdqBPcG8 FcsO3kSoGiYYXsGMDlD9Qx xEBdPJdtB394LAbgHuF5TC InvpCjY0Rf HVNxoAslWwF0r8D5Dj4Ds0 CnzufgHSM8NMbaGVXhBcTd QxRbMbD0G4XrSaa8NHRodA whLH9kV0Mm GYXdksizjvunmEG1AFNbTC OwqT70cMFyAXkrUw5oe6D9 q510QMJoIGDoxT44Zj3utP ogMTBwdCBU yS0nwlhkn8ejpvqaPwIoJF OqFJx8WYo6MBSzzIslJeFd TKP7SuT7YZP6qOMnrH7zeY wjjfxjbM4k Oyc+M73ljZ7lCAL7GDG6ao caXEGghiEfFY16ZI83O4Nf PjwvdGFibGU+PGRpdiBzdH frZP9aLsQf v3cxq4WdDCoeA2VhDJQjRA cnEje1HKWwBJH9jVQ9aR7i DZKfDDeas0S1iUG4R3Ewfp Dzwg2bn2sb WEIgOBtkI45sxTLgt8E0ZX SlsKH9CULpcAmlTgDkqC99 Oyc+EMZcmFmzb9HvXeqmy7 ywu9pqqRm9 MbOgKPEbocUooChtZMQ0s4 XiHr83C63hWUiuBKLiBBMj RHLuWNYryPjgvr4xoL3eKh 8+PGNvbCB3 aDO4aD7yPJXiCqQ0JRsdF3 01MqXzjLSsJiwyq9ocq1sb eFl4MdCsNVSsntBsaOcrEW L6n4MpSt72 S31nUCrtMPScYNAgBAKtKY CmaKvfxf8wmN0lMc3+PC9j w3hrba90bA63wBS+PHRkIH H1nAzdRTxy PXMvhQ3nWFxfHsH9JQMsSa OyhR65yZToETgfGd7caPek dMniGC3oYNBcxomqn937Lt Nvx7poPOQn kRAhNXscKZQ0R21tk9X3NY ZnBDGjWMY1cAW8yD0ulNnj bjogbGVmdDsgdmVydGljYW vaLFmcR872 IHRvcDsnPlBhdGllbnQgTm KjAJo3Y3OeEaz4OMXdyJzc EP2nbJPkMTbiTh8woUaroR ecGR1uSRDe pgocz154YiTii2geYFTfaM JbOPgbLNA8B88tb7H3NMTf KENxXGC3cWB7iJ9xkYtcbr ogbGVmdDsg ogJxdBlcLMquZQgiO042BB RvcDsnPkJpcnRoIERhdGU6 BF82ZG21aUWfa0W7kVX4D8 BhZGRpbmct fvqrsZL4TYFuPFSapN56Tw 2vjYctRs2bWEDsQRB7YICv pZHkE9EmtD8jRwFrWKXaDH WnE1EcuXKn BNdvV481IGqxVxD1OURwji YxF2DfSSThyEppEwF3f5L2 Pc8NO8A8RK69TI33kXVtu9 S2wBK7D6Uk YQGbcsbnpkmbkNM8LXGdEI VfyL21Hf3snHiqSr6lFEWu NVW5WVBjmIBxI4SqdI3bQh AjMDAwMDAw F3BxcWHzLGbuQ956LPzoDk B6NQWxfpHaI0OuSGXfoWvf MeN2v9C2Rf0FPJs2IH27PO 24nNKek7N9 sFU3Q2NsTNSiknfhxidveQ P0ZTJeVQUuaZ13Gx7beWek Bf5jPOVsHKR6ATHgaUMjE4 UigX9sIqOo KRGuTHRyY4ArvTGnAGfzO6 07FYrnSmW8PQLcrbVvS3Wk QZHpzHfrHdS0j7D9Av1WHV HaXM05YJU5 mLA8DD75TW48R3WjKsigkK FibGU+PHRhYmxlIHdpZHRo HWrzAZHgAmHssRvhBM2dJw 9yZGVyLWNv qDentQWsCxIub5yeRAFjJN adCP7ilIedX5QczMC2EONv c1v4Iy70N26uB1RhqOZ+PG RvlDS7kLU0 jI3lEnVjYyT3SUkeE777Qy JavACuQoclq3wzs4gbsNw7 QyO4ZMEboxUjmMkkBFI9q7 VyNh22K14b IHdpZHRoPSIxNSUiIHZhbG apjg6tcQ9oOt7+PGNvbCB3 mNC2sO8dDwPeRwE2KOkeR2 49InRvcCIv Tzyrv2oal3wxjCq3CpCgMR RoutDfqOlbLFX2v4BqNt73 C0SpzGzcr4IhDli1mf33uY Rns1J3qPK7 T5IoUGWmwfmhgVQuiYvuJU 4zOLHdpchxJBDtyT2jFLUr P5p1HdMkPtX5WMmoV4Vhhb I3RQNrcERo FDtwWYL5Z36pj3T5AZWzZC SgEQA7pYS8aA0ahNssaxiz bGVmdDsgdmVydGljYWwtYW zwG125APRx mUbbOHNwyX9lSPGuqLRezI hoQH5lXMDydtxuXh9UYT2i VFxNKLgFFil8J4GqHcb7IM OsjVpuAE9l lQOdRIwxPv7bmRmhjLyeNG 3kQZQxzdwmXEHbdV4yMWBc jQYzgYfqKI5qRRWulqhoi4 89VmBiJSE0 CEQugQUbZ5JbdO8dKoRcYV KlBAQaB0FkvIUsSEpxJ656 GWksBvJ2YKQtgyVsB4TgLI FsaWduOiB0 w8I9Pv5mNc9pOx6gBJHaZK 18PJ10rYMhr4B1vWC2O1Jn TYKtjomruomgdKZ8RCHhAJ BsnG13qIVg TOwtEr8ve0L4p602DTPrIC RztX21Dz4myQueQCOvrTCX dM3qqectx4jfwzmhOfCiPF RrOPw1UJg7 WEZnzXbcOwGtPYF1AcN9JE J8uPHnmJ2jlImunhszbT3b Oyc+MKltRFUgkjA7G2VuHa l1SRZswCul WL1slQXyYLznQb1ymNnstP cwIP7eUFYmiadjJJKsbZ6p GVFpsYZuqZjvBF9aRMKdmh qcx300UmIh GCG1YCDtmQJoZ2FraF8eMt OsKHUdKEXbO7GiiBUtGIuq M756GVtkUfI2HEPkehOtF0 FsLWFsaWdu LmA0y4O5Ni6VOGxqFZ36YK 88qZGcx5Y1aEL3G4GsVTEg lyndiuizoQD7AQKnNSDsmZ 47cGFkZGlu Ah2lb6R0h345JBNcPXTvzW 37Ut8baWvwPAFesFCYbJ1j uwpmu5xvabykRtAwYZIfBX k3YTz7CBZw aRgkPtOqLBJ9VaP5UYT1qP IxuL9tbFggjwxsjA6fMpq+ E3P7qEM9aXPcnVxuyQS+PC 68ni68C6Vv MvgeLtl7WBFoMRF0xDP1cR 1lLSEpNCeln6K5pQT2M6Ei skGrla0yf5ijZKHlBImnF2 5xyCVth4R5 ZQRdkIL4JMCaxVyxCjZsrR 93Oyc+DLAbsXweb5UaTkvx p5jbl9znaAl0XvWcUUHfpx FsaWduPSJ0 y5EoQh07B73kAHbeJQXvCU DsZJKkSPTqqGjbsq7zmV3d Ii8+MKZnrCY5qRP7dM5xKx TuJaZ3GZjl P045ZsFbjEYoQrhof8llo7 iqzWp2QbIeLRDpszHqqHax SST0c3KuJy07F8EqqKhtj5 NsTat5ui06 rXLqx0F2tMF4R6HhMILovc auaFUboEvrRZ2dRFGrwmcb WQSzuN1cYHZhF1g6EgIoJk C6JVaqN6Jo xdX7PVRkvZKkRUWjiRPElT 4tlsoab9ypneqwYoEjWDSu LMy7FEu9ZVFlvUcfKoUmZI X4EsD8GHT9 mKKkcQ3ccLfklnpwnU9qEh c+LKi0d3ttoRSePA0slAE0 LS77TQ79zQNzs8X9bTT3R6 BhZGRpbmct wmgklEH4DJFaAJHffO40Pw 5boIluEk7rWPEoJQW8QUGw uWOnC1DtnE8bDbNxQLThCB FbM1LlhLOf JToiS100NKlcVrK8JDYfch CfO4GcLEIchFasUeG5i6W7 Hq1XSG74GI01FL27gOOxb6 X5vCI0Q0If XZRlaehobifosYJ7ASWgWC NmnP21Dq2icZleXt1tMAUk OSZ6QCLkkWLlQ0ZebJ8mNt AjMDAwMDAw B5GboGCgMHhuT993KLivYi R6QDHtdwCpW6FnNGWkzWzh VcA9c6M1Zc7TKi21IK68WI 29rHEaq7G1 nLI0J9IyYIFngebpqctllZ S3ZDNoFEBzgV60Kp3exYfc Rw3eFRZdMXZ0XQWuuRWfR3 RjaQ4aDlAf KDDpBNHnL4VujMRdPEvqM6 14JSnhHfS3HDLafrQdA3Cn LMKiyKxxDfS3e5J8Gl7NVJ nygkr0L8Ge PjwvdHI+LL88ISCcRX19tN QbaLOoz3gskRd5DxYrVJMz KCS1nCtuHZlwa4IvJBFxN9 7uzIKyx2M2 IGNv (more content not included)... Normal [facility] Consent for Treatmenton 10-2 Consent for Treatment [id number]#1.0 0CD:127 Normal [facility] IntraOperative Documentson 1 IntraOperative Documents [id number]#1.0 0CD:127 [facility] Main OR Intraoperative Recor don 04-01-2021 Main OR Intraoperative Record IntraOp Document Type FTURO Summary Primary Physician: Lino Ansari Jr., MD Finalized Date/Time: 04/01/21 14:49:37 Pt. Name: RIC SANCHEZ/Sex: 1960 Male Med Rec #: [id number] Physician: Lino Ansari Jr., MD Financial #: [id number] Pt. Type: O Room/Bed: / Admit/Disch: 04/01/21 14:14:58 - Institution: Case Times FTURO Entry 1 Patient Times In Room 04/01/21 14:35:00 Out Room 04/01/21 14:48:00 Procedure Times Start 04/01/21 14:41:00 Stop 04/01/21 14:44:00 Anesthesia Times Last Modified By: Stew BAUM, Rissa Lawson 04/01/21 14:48:36 Case Attendance FTURO Entry 1 Entry 2 Entry 3 Case Attendee Elan Peterson MD, Lino Mathias RN, [facility]issa Bullock [facility] Role Performed Surgeon - Primary Emergency Planning And Response Manager - Primary Scrub - Primary Time In 04/01/21 14:35:00 04/01/21 14:35:00 04/01/21 14:35:00 Time Out 04/01/21 14:48:00 04/01/21 14:48:00 04/01/21 14:48:00 Procedure CYSTOSCOPY LOCAL WITH CYSTOSCOPY LOCAL WITH CYSTOSCOPY LOCAL WITH STENT REMOVAL(Left) STENT REMOVAL(Left) STENT REMOVAL(Left) Comments Last Modified By: Rissa Mathias RN, RN, Amy J Crosby RN, Amy J 04/01/21 14:49:31 04/01/21 14:49:31 04/01/21 14:49:31 Surgical Procedures FTURO Entry 1 Procedure Description Procedure CYSTOSCOPY LOCAL WITH Modifiers Left STENT REMOVAL Surgeon Description CYSTOSCOPY W/ LEFT STENT REMOVAL Primary Procedure Yes Primary Surgeon Lino Ansari Jr., MD Start 04/01/21 14:41:00 Stop 04/01/21 14:44:00 Anesthesia [...] Position Verified Availability Equipment, Medication Time Out Lino Ansari Jr., MD, Verified (If Participants Rissa Mathias RN, Applicable) [...] By: Rissa Mathias RN 04/01/21 14:49 Normal [facility] Main OR Intraoperative Record IntraOp Document Type FT Summary Primary Physician: Lino Ansari Jr., MD Finalized Date/Time: 04/01/21 10:59:15 Pt. Name: RIC SANCHEZ/Sex: 1960 Male Med Rec #: [id number] Physician: Lino Ansari Jr., MD Financial #: [id number] Pt. Type: A Room/Bed: Admit/Disch: 03/25/21 11:46:55 - 03/25/21 18:05:00 Institution: Case Times FT Entry 1 Patient Times In Room 03/25/21 14:43:00 Out Room 03/25/21 15:43:00 Procedure Times Start 03/25/21 14:58:00 Stop 03/25/21 15:34:00 Anesthesia Times Start 03/25/21 14:43:00 Stop 03/25/21 15:43:00 Last Modified By: Marci Ibarra CST 04/01/21 10:59:13 General Comments: 03/29/21 Chart opened to review and send charges MitzyFred MARSHALL Case Attendance FT Entry 1 Entry 2 Entry 3 Case Attendee Abe PERKINS, Asuncion Ansari Jr., MD, Lino Pettit CST, Anjana Palacios Role Performed Anesthesiologist Surgeon - Primary Scrub - Primary Wire Loop Machine Operator Time In 03/25/21 14:43:00 03/25/21 14:43:00 [...] Nadia Dixon RN, Alba Ibarra Role Performed Emergency Planning And Response Manager - Primary Board Winder Superintendent Of Generation Time In 03/25/21 14:43:00 03/25/21 14:43:00 03/25/21 14:53:00 Time Out 03/25/21 15:43:00 03/25/21 15:43:00 03/25/21 15:43:00 Procedure CYSTOSCOPY RETROGRADE CYSTOSCOPY RETROGRADE CYSTOSCOPY RETROGRADE STENT INSERTION(Left), STENT INSERTION(Left), STENT INSERTION(Left), CYSTOSCOPY W/ HOMIUM CYSTOSCOPY W/ HOMIUM CYSTOSCOPY W/ HOMIUM LASER(Left) LASER(Left) LASER(Left) Comments Student : Christa Rodriguez present during procedure Last Modified By: Aric BAUM, Nadia Corbett RN, Nadia I Nadia Corbett RN, I 03/25/21 15:52:59 03/25/21 15:52:59 03/25/21 15:52:59 Perioperative [...] Antibiotic Yes Time Out Abe PERKINS, Asuncion Ramirez, Lit Ansari Jr., MD, Lino Goodson, Wilver NOLASCO, Aric Wan RN, Dana I, Zack RN, Julio L Time Out Complete [...] Text: Im (more content not included)... Normal [facility] Main OR Preoperative Recordo n 04-01-2021 Main OR Preoperative Record Holding Area Document Type FTURO Summary Primary Physician: Lino Ansari Jr., MD Finalized Date/Time: 04/01/21 14:40:21 Pt. Name: LAURARIC./Sex: 1960 Male Med Rec #: [id number] Physician: Lino Ansari Jr., MD Financial #: [id number] Pt. Type: O Room/Bed: / Admit/Disch: 04/01/21 [...] 14:24 Rissa Mathias RN 04/01/21 14:40 Normal [facility] Operative Reporton Operative Report Patient: MARTÍNEZ SANCHEZ Age: 60 years Sex: Male : 1960 Associated Diagnoses: None Author: Lino Ansari Jr., MD Procedure Operative Information Details: Date/ Time: 04/01/2021 [...] well and was subsequently discharged home. Normal [facility] Comment on above: Result Comment: Elec tronically Signed By: Lino Ansari Jr., MD\.br\Date and Time Signed: 04/01/21 14:48 EDT Calculus Analysison 03-31-20 Calcium oxalate dihydrate Infrared spectroscopy (Stone) [Mass fraction] 20 % Invalid Interpretation Code [facility] Comment on above: Performed By: #### 1 [id number] ####[facility] [address] [place] [address] Calcium oxalate monohydrate (Stone) [Mass fraction] 80 % Invalid Interpretation Code [facility] Comment on above: Performed By: #### 1 [id number] ####[facility] [address] [facility] [place] [address] Color (Stone) Brown Invalid Interpretation Code [facility] Comment on above: Performed By: #### 1 [id number] ####[facility] [address] [facility] [place] [address] Composition Comment Invalid Interpretation Code [facility] Comment on above: Result Comment: Perc entage (Represents the % composition) Performed By: #### 1 [id number] ####[facility] [address] [facility] [place] [address] Disclaimer: Comment Invalid Interpretation Code [facility] Comment on above: Result Comment: This test was developed and its performance characteristics determined by [facility]. It has not been cleared or approved by the Food and Drug Administration. Performed at: [facility] Stone Analysis [address] [place] [address] [place], [place] [id number] MD Maria Elena Trotter Performed By: #### 1 [id number] ####[facility] [address] [facility] [place] [address] Laboratory comment Gordo (Report) Comment Invalid Interpretation Code [facility] Comment on above: Result Comment: Omer garay questions regarding Calculi Analysis contact [facility] at: [phone]. Performed By: #### 1 [id number] ####[facility] [address] [facility] [place] [address] Please Note: Comment Invalid Interpretation Code [facility] Comment on above: Result Comment: Calc kat report will follow via computer, mail or filter screen cleaner delivery. Performed By: #### 1 [id number] ####[facility] [address] [facility] [place] [address] Size (Stone) [Entitic vol] 2x3 Invalid Interpretation Code [facility] Comment on above: Result Comment: Mult iple pieces received. Dimensions of the largest piece reported. Performed By: #### 1 [id number] ####[facility] [address] [facility] [place] [address] Specimen source subject Nom Comment Invalid Interpretation Code [facility] Comment on above: Result Comment: Not provided Performed By: #### 1 [id number] ####[facility] [address] [place] [address] Stone Photo Comment Invalid Interpretation Code [facility] Comment on above: Result Comment: Phot ograph will follow under a separate cover Performed By: #### 1 [id number] ####[facility] [address] [place] [address] Weight (Stone) 14 mg Invalid Interpretation Code [facility] Comment on above: Performed By: #### 1 [id number] ####[facility] [address] [place] [address] Formson 03-31-2021 Forms [id number]#1.0 0CD:127 Normal [facility] H&P Updateon 03-31-2021 H&P Update [id number]#1.00 CD:127 Normal [facility] Coding Summary.on 03-30-2021 Coding Summary. CD:[id number] Gh 0bWw+PGhlYWQ+DY1LGVOnQ 10mbBKyhG4PU3mYCZ7VUHL TPAOVMB8AVC9jzAC2IPnnN 2VybiAv EltvpGSbNX49FUm1WKH2aO tcPEeypH1gbDXdX4w6YxAv LQ44bG44PXszMWWwQiH7Qv ZpbjsgbWFy C9dkEgBtdIXeHtv+PHRhYm xlIHdpZHRoPScxMDAlJyBz vJsjHR7mTn5kOYDbHTMhtJ xhcHNlOiBj q3rzCOSbJJcjUP4lrLirW4 MlpTO0KBMmw8q5Mp28tSH+ RVZpMEB7gNtnNBkji027Uq Pel3gpZTG0 gFWsZRmcOGX4M50kc9Q3LU GsPWUmPGM5yXX9qZ2itYoi hfesW0HdhGIvYxA3GZQ3vJ LwvP3ytZkq tzouvO9qHbx+R28KBY3MUH ZYFP7HIsm1Q4JrWmrtoJH+ QU32RDQnSO70kDYwtDYhu2 sxqHa1HdIb FWExJRV6wAsnOFfum1JvMB DuY60kjFCfl5B7RAVgyMcu cARhDaKxwAQ2lU6pOYprkq nfv3lxrnzu Jltdc6yjsh10sC49W06sQL pxXJDiMLW3SKZhDKXnoCmu ry2vtW6aRj9+WZdlv9pdo9 hccDf0MgNf BICxgbMhnYwbUTD1a8JxDj 21H1JmgWnoj4HnTda7pi17 rUDsz6G7fLJ5SFjaUVNtzT 4eAZveGgD8 MUAmOyLreK48mNXiPGkaFm 4mpAqmqFerLM9qGKRsuguu BPGnsI0mXCRrqPBhkHanCH 4wNTBpbjtm u179JkZuFSY5MBSlrYJtZ1 PwzS5mHuSsUSCzTEOjZ8Pj iPFcLBcvR480DHgrFvI0YH ParkLaL6Hv KRMlnNhwAlE4c4A1Bz2Ih4 EsxaghWBU7QWeqXWJjLlV2 OgNtRzY0M7QwXoh0XFLlzT moCH6pS9Ns QABonezrigbsxYA6REOlEU SptT04qRHoQRbjTa7mi0K6 y649YXScPMPwpQ01Uv1btD ogMTBwdCBU hN4zxvpkk5bubnmeObDjTC VfSSb0UNu7MFMwfObsXaZk XRW9IbH2TCP6qXXeoD8dsX guyabymD9p Oyc+I88ikW9iBFX6NFZ6pd grGTNdkeVvPW96YL82C8Av PjwvdGFibGU+PGRpdiBzdH xxLO8iFlNe h7roo5AvJWthA6OwNHKjCR iwZvg2BRTsRXB1lMP6xB4o ENQsIOyzv7F4zJJ2K7Pljz Aidi2nq0rl GMIqUKymM43dnXZge7Q3TK BbrLE7EDJnjUgoRkJjvU15 Oyc+PYMxwDxnr8GoEcwow1 hsw5fqpYs5 ToVoCYYwjvLdmFnaTTD0l6 HnXv01M30tNPbaAJRoYYRl QPVzKHDvlNoegb0vcB8jOc 8+PGNvbCB3 kBC1sR3cZGSaDzC4RLdmM6 72GyDpdUJfHyroo8gxv0if wDy7XaWoUHLnerIcoJhkYS Y6k8VfSi85 F69kNEkiHFKuOIDmBQHhZL KfcGxngq5cqR7lIg9+PC9j t7chli56cK46uYH+PHRkIH I8yJcjFElu PHBcwL0bIVecNrU8SJGyLv TpkF02dOVpSBmiGc4yzDzm fIdxTQ5kHGPuycrqo126Eo Tqy9moXAMb iBGhVFqhHTR8J54qx8C5RS SsKBBaJNE0xLV1oD2seCmi bjogbGVmdDsgdmVydGljYW wnWEgfR921 IHRvcDsnPlBhdGllbnQgTm SiLHb6Q1ZnKtu0PZNpjBtz FB5jvEIzGKmpRg4cwThkvX cbGA8fWRIo uuqvo232CiBjw2gxLDCdbU MzNHdnMNW9S45pv0B4QNAe ILFtCFW2cJB6eM3wlSodlw ogbGVmdDsg ynHdmHwpMQehIFrhU162OA RvcDsnPkJpcnRoIERhdGU6 SZ08YH61eQFrv0N3sIS1T7 BhZGRpbmct mturgYD1LTRpKQTmkC57Pp 4lmNmmEv3bYVCjIDW0FPJd sJIdB5KhbV1zRoGvCLMaYC PuZ8FelTTg RPicY403OSkpSdG6NWTtyd YfF6JuZEYhkNtdXdI9i0C9 Jc7TB8O3PF54DU44zEQrx7 H0hBX7D3Yy ZJOufvapwockgUX1FADdMR EmhV86Hz2qjPirAx8eWNUg TIA5UHMdhKVoH2QykT5oGo AjMDAwMDAw J2NsdDYbMPciU713DGqrMp Z6LBCyubDmF6LrVZSobXop AjL6s4T4Qw1YAAo3YI04GQ 07cHKyv5D0 sFM3K9UiBPRcqdyveuksmJ A4LMTjYTHebN18Ke6dmDpa Ip8tRCAqEXB3EHWyvDOxE6 XphB0eVqBs BFAfOHXxC5FwfVYhLWvtX0 52KOunJeU5QEXvrxFlO7Ku NSRfsEltZeN2z2N3Pb2ODF LhBJ42HLG3 bIT5XY36NT82O5WvJgaiqA FibGU+PHRhYmxlIHdpZHRo GGcdGDRjAlJsdKwdNZ0dYj 9yZGVyLWNv sEjiqJYqPzLjz3hyUROeZK pjXV4stGesV6KvpCY1WJOf z9p3Vj48B69oD8MeuXW+PG TivVZ1fBQ9 gL9nPaDzNaH0UHqgH336Ia QwaABoSblyj8jyt5chnSh4 ZaK0WAAaaqZwoPkzPAD9l3 EoWn94M38s IHdpZHRoPSIxNSUiIHZhbG mwvv2ybI0wAn1+PGNvbCB3 wVM0qR5sGgGiGvL3MHnrA1 49InRvcCIv Dbzej8swg8czhCg9PnOiGA JeimKunCbbMMN8t3YnLp58 U1TveKshy2AbVgz4lg43bB Dve5X7oHD5 I1BoMNXkxeavfPDoaXfaBV 5zDFUmvwtoQCDrtY5bRBCa B0k9QtKiXxB8YWjfI9Mwjf A8HBNkxKYg ITetBIZ5U99tw3R5CBNiCU BfOEO6pVL4eK3rzRocivrc bGVmdDsgdmVydGljYWwtYW awU039PEVo qSdqGUQmjN1sRFUahAWueS azDI1zPPUqcskxPe1XCI9k TMmUXYaEZrn0I3YfMcx9DF DdeJkwAC8c wLZjQRkfLz6jqVrubRdsXO 5eWKKrgbkwOGOaeL0uKJPo eDJiqBvrWW1nARKxcqgrq8 82FeOePZB1 ACYhdPWfM9PqoE0uLaEqDP FzNCRsC2CniJYgZLciG491 ZRbfCzU7OFWdxxAdD5YoTI FsaWduOiB0 u3U1Zp9gJd3uAq8jENPtSC 57VA04rVWxo5C3uQU3I2Ax BVWwbhwfkbtazGV0MCAxMY SklT03mIUk MNpiPu8td6I9a604YCQyPW PihS25Aj5yrKqyXKCsaLKP eB5xenjot3fkqpjxHhCfWJ IdOBc6JPe1 OOZakAqfQzDrYQP4AtR4QX F8kPUgjP9csAlvmuibdV9m Oyc+UQkyIDUuekS6D6ZxDi g2STNouBnl HM0grWIuBYkzRl5aaRdwfE quIC1oIMSsvxeqYUIwdS1i RDBueCRweVgiVO0zMZXmnq lxx408EsTl DCT2DLDfrTUaK3OnyR8iSj MdWGRnVYLzE1AaiYOcLYbv M420SSfjYuV2AQDqnlCsE0 FsLWFsaWdu LwM4j8I9Sm1LTBvwRI81KM 94oNRjv0M8bRO1K7ElECGr wljjlkqdlKS6HWGbGULxvQ 47cGFkZGlu Vr4ln6Y5h447CARzETUpmO 52Sx3azWtfHWQfdTKUaJ0k ghhet6wxoidsTyNvKZMeHI h1WMj8JQPl pWzyKkKwQUY8DbC2KOX1hS MykK2ccRqezjtpkU5sOtj+ HJ4hkUungX9lhR3ZWG5fMT RheSBTdXJn CAP7GL11IT36H1VcXellwZ FibGU+PHRhYmxlIHdpZHRo MSznTTAfHmDukHmcLP3qYn 9yZGVyLWNv gRztaWMeHdTgd8wgTLDyEG kdEK3prKagG3MmrRJ5VOBk v6e2Vc71A67lN2EzzBY+PG XmqRX0jCD2 rT6yTwDmBfD3BAznB307Ng VknPCrFtqvv9sku0tpoFk4 GaTkVOLtjeXehPtdZVH7n0 PzWw47R89u IHdpZHRoPSIyMCUiIHZhbG hmzw5suK9zFy1+PGNvbCB3 uOB8eF3bIoLxMiG2CDvcI5 49InRvcCIv NtkuB75kK1CgrUL+PHRyPj u5AZEbfGysSG5qhJYxCBkg Xn0sPZF2DpSvQlZiTTlqG2 BhZGRpbmct scefuKA9LVXzTGTjcS93Yd 6crCtyIk9hSUNvNXE8DRUf cAZcO4PisD1iJgCqALGyLV HpI7JttAFv EGubC995OGewFbC0TDRoek KzY2TlQNBwyCnrVyU2a8X3 Zo9YySvahRByBJ4mSsJjOH t1J1QtJmu5 SSCtlPpaXO7doUYuYEpuTg 7axHyuaDtiFH5tAIVtzhxh s114JkQlb3htKVIogFVoMX spNTD2A74l t7P2TSZwZWLwYJM4gBT3xG 1hbGlnbjogbGVmdDsgdmVy wFaxCJpyWDzaD832ADMlbX snPkZJTjo8 A0EdWud9SPStbRdmHY6wxU VhBTnaKa1fcYxtlOlkHO7y SKWqweqqv408WsFtt0vrMM EwcHQgVGlt CHJ4E89jy1Q6UAZcZVSnXG D2gCX7vQ9nuCfocajwfRLv dDsgdmVydGljYWwtYWxpZ2 46IHRvcDsn Ky9IEwj7I9CzWns4ENKubO lrCB1qwCRzGGsdEn0yiVla pVbgQR6xCRFbiwzoh006Hq Gbo2brYSCg oJNpDRgdNZE9X04fz4N9VZ DdKHXdKWR3dED6bM2nhRpu bjogbGVmdDsgdmVydGljYW zxXNjjB459 IHRvcDsnPlBheWVyOjwvdG Q+EN67st65H8DpQdtzSqr4 LBYfNSQ6aUY7oP2jECGoLM npd4P8oCE7 J2Jv (more content not included)... Normal [facility] Postoperative Documentson Postoperative Documents [id number]#1. 00CD:127 [facility] Pre-Certification Formon Pre-Certification Form [id number]#1.0 0CD:127 [facility] Progress Note-Physicianon Progress Note-Physician Patient: RIC SANCHEZ Age: 60 years Sex: Male : 1960 Associated Diagnoses: None Author: Deniz Chan MD Postoperative Information Post Operative Note: Post Anesthesia Care Unit. Anesthetic utilized: General. Health Status Allergies: Allergic Reactions (All) Severity Not Documented Baclofen- Unknown. Celecoxib- Unknown. Iodine- Unknown. Problem list: All Problems Anxiety / SNOMED CT 67747534 / Confirmed Physical Examination Intake and Output adequate hydration Measurements from flowsheet : Measurements 03/25/2021 12:34 EDT Height/Length Measured 177.0 cm Weight Measured 85.5 kg 03/25/2021 12:25 EDT Height/Length Measured 177.0 cm (Modified) Weight Dosing 85.5 kg [place] Body Weight Calculated 72.276 kg (Modified) BSA Measured 2.05 m2 Body Mass Index Measured 27.29 kg/m2 Weight Measured 85.5 kg 03/24/2021 8:35 EDT Height/Length Dosing 178.0 cm Weight Dosing 84.0 kg 03/24/2021 8:35 EDT Height/Length Measured Date\Time Correction Height/Length Dosing 177.8 cm [place] Body Weight Calculated Date\Time Correction Pain assessment: [...] be discharged from anesthesia care. Condition stable. [facility] Comment on above: Result Comment: Elec tronically Signed By: Deniz Chan MD\.br\Date and Time Signed: 03/29/21 16:40 EDT Consent for Anesthesiaon Consent for Anesthesia [id number]#1.0 0CD:127 [facility] Consent for Procedure/Surger yon 03-26-2021 Consent for Procedure/Surgery [id number]#1.0 0CD:127 [facility] Discharge Instructionson Discharge Instructions [id number]#1.0 0CD:127 Normal [facility] IntraOperative Documentson IntraOperative Documents [id number]#1.0 0CD:127 Normal [facility] IntraOperative Documents [id number]#1.0 0CD:127 Normal [facility] Preoperative Documentson Preoperative Documents [id number]#1.0 0CD:127 Normal [facility] Capillary Glucose POCon 03-12 Glucose [Mass/Vol] 134 mg/dL High 55-99 [facility] [facility] Comment on above: Performed By: #### 2 [id number] ####[facility] [address] [place] [address] Consent for Treatmenton 03-12 Consent for Treatment [id number] 0CD:127 Normal [facility] ECG 12-Leadon 03-25-2021 ECG 12-Lead [id number] 0CD:127 Normal [facility] Immunization Recordson 03-25 Immunization Records [id number] 0CD:127 Normal [facility] Inpatient Patient Summaryon 03-25-2021 Inpatient Patient Summary [place] [id number] [facility] Clinical Discharge Instructions PERSON INFORMATION Name: RIC SANCHEZ [facility]#:[id number] PHYSICIANS Admitting Physician: Lino Ansari Jr., MD Attending Physician: Lino Ansari Jr., MD PCP: CHRISTOPHER PEARCE DO Discharge Diagnosis: Hydronephrosis with renal and ureteral calculus obstruction Comment: PATIENT EDUCATION INFORMATION Instructions: Jfov-Dqxp-gc Utereroscopy,Lithotrip sy, Stone Extraction, Stent Placement (Custom); Cystoscopy; Post Op Patient Instructions - FT (Custom) (Custom) Medication Leaflets: Follow up: With: Address: When: Lino Ansari [facility], [address], [facility] [place] [address] Business (1) Within 1 week Comments: My office will schedule cystoscopy with stent extraction. MEDICATION LIST New Medications [id number], [address], [place] [id number], [phone] acetaminophen-oxycodon e (Percocet 5 mg-325 mg oral [...] Tablets By Mouth every day. Comment: Normal [facility] Main OR PACU I Recordon 03-12 Main OR PACU I Record PACU Phase I Document Type FT Summary Primary Physician: Lino Ansari Jr., MD Finalized Date/Time: 03/25/21 18:09:07 Pt. Name: RIC SANCHEZ/Sex: 1960 Male Med Rec #: [id number] Physician: Lino Ansari Jr., MD Financial #: [id number] Pt. Type: A Room/Bed: [facility] Admit/Disch: 03/25/21 11:46:55 - Institution: Case Times [...] By: Anabela Yeh RN 03/25/21 18:09 Normal [facility] Main OR PACU II Recordon Main OR PACU II Record PACU Phase II Document Type FT Summary Primary Physician: Lino Ansari Jr., MD Finalized Date/Time: 03/25/21 18:08:49 Pt. Name: RIC SANCHEZ./Sex: 1960 Male Med Rec #: [id number] Physician: Lino Ansari Jr., MD Financial #: [id number] Pt. Type: A Room/Bed: Admit/Disch: 03/25/21 11:46:55 [...] II Outcomes Met? Yes Last Modified By: Krzysztof BAUM, Beatriz Quiroz 03/25/21 18:08:47 Post-Care Text: The patient demonstrates [...] Signed By: Beatriz Blankenship RN 03/25/21 18:08 Normal [facility] Main OR Preoperative Recordo n 03-25-2021 Main OR Preoperative Record PreOp Document Type FT Summary Primary Physician: Lino Ansari Jr., MD Finalized Date/Time: 03/25/21 15:55:27 Pt. Name: RIC SANCHEZ /Sex: 1960 Male Med Rec #: [id number] Physician: Lino Ansari Jr., MD Financial #: [id number] Pt. Type: A Room/Bed: Admit/Disch: 03/25/21 11:46:55 [...] Nadia Corbett RN, I 03/25/21 15:55 Normal [facility] Monitor Recordon 03-25-2021 Monitor Record [id number]. 00CD:127 Normal [facility] Operative Reporton Operative Report Patient: MARTÍNEZ SANCHEZ Age: 60 years Sex: Male : 1960 Associated Diagnoses: None Author: Lino Ansari Jr., MD Postoperative Information Procedure: Hydronephrosis with left ureteral calculus Date/ Time: 03/25/2021 15:42:00 Preoperative Diagnosis: Hydronephrosis with renal and ureteral calculus obstruction (QIM11-WR N13.2, Discharge, Medical). Postoperative Diagnosis: Hydronephrosis with renal and ureteral calculus obstruction ([id number]-FV N13.2, Discharge, Medical). Performed by: Elan Peterson MD, Lino Forrester Findings: This patient is a 60-year-old gentleman [...] the lab for chemical analysis. A 6 Malaysian double-J ureteral stent was then placed over [...] FACS. Specimens Removed: Ureteral calculi. Prosthesis: 6 Malaysian double-J ureteral stent. . Estimated Blood Loss: 0 ml. Complications: None. Anesthesia type: General. [facility] Comment on above: Result Comment: Elec tronically Signed By: Lino Ansari Jr., MD\.br\Date and Time Signed: 03/25/21 15:50 EDT Outpatient Surgery Discharge Instructionon 03-25-2021 Outpatient Surgery Discharge Instruction [place] [id number] Patient Discharge Instructions PERSON INFORMATION Name: RIC [...] THE NEAREST EMERGENCY ROOM OR CALL 911 LAURA Elizabeth GREGORY, have received the attached patient education materials/instructions and have verbalized understanding: May we do a follow up call? Yes No I was present when discharge instructions were given Patient Signature Date Clinican/Nurse Signature ___ Date Follow up: With: Address: When: Lino Ansari [facility], [address], [place] [address] Business (1) Within 1 week Comments: My office will schedule cystoscopy with stent extraction. Pharmacy Information: [facility] [place] You may receive a survey from Elen Aggarwal asking you to rate your care experience. Your feedback is important and will help us understand what we do well and how we can improve the quality of care we provide to you, your loved ones and our community. It?s an honor to serve you. Thank you for choosing [facility] HERE ARE THE MEDICATION CHANGES THAT OCCURRED DURING YOUR HOSPITAL STAY New Medications [id number], [address], [place] [id number], [phone] acetaminophen-oxycodon e (Percocet 5 mg-325 mg oral [...] day. PATIENT EDUCATION INFORMATION Instructions: [facility] [place], [place] Post-operative Instructions for Stent Placement There [...] other reasons. If it is to remain intermediate project manager, however, changes of the stent are required [...] the ba (more content not included)... Normal [facility] Patient Education - Texton 1 Patient Education [...] including vitamins, herbs, eye drops, creams, and ness-jji-ougxupz medicines. ? Any problems you or family [...] tells you to take them. ? Taking ajuf-ztj-zbheclt medicines, vitamins, herbs, and supplements. ? Follow [...] these instructions at home: Medicines ? Take vkum-iye-xvigbrb and prescription medicines only as told by [...] yellow. ? (more content not included)... Normal [facility] Progress Note-Physicianon Progress Note-Physician Patient: RIC [...] selected or recorded. Procedure history: Hip replacement ([id number]). Social History Social & Psychosocial Habits Tobacco [...] review: No qualifying data available . Plan [place] [employer] Anesthesiologists (ASA) physical status classification: [...] and lungs, allergic reactions, and .. Normal [facility] Comment on above: Result Comment: Elec tronically Signed By: Dustin PARDO, Deniz\.tay\Date and Time Signed: 03/25/21 15:05 EDT XR Abdomen 1 Viewon 03-25-20 21 XR Abdomen 1 View Exam Date/Time: 03/25/2021 [...] clear. FINAL REPORT Dictated: 03/25/2021 12:28 pm Marcie Preston MD, V. Signed (Electronic Signature): 03/25/2021 12:28 pm Signed by: Marcie Preston MD, V. Transcribed by: LOUIS Technologist: HARRIET Normal [facility] XR Urography Retrograde Left on 03-25-2021 XR Urography Retrograde Left Exam Date/Time: 03/25/2021 15:43 EDT Reason for Exam: Kidney stone Report IMPRESSION: LEFT URETERAL STENT PLACEMENT. CLINICAL HISTORY: Kidney stone COMPARISON: 03/25/2021 12:28 PM. FINDINGS: 3 digital spot images of the abdomen were obtained in surgery. Initial sheeter helper image shows a tiny left renal calculus [...] Radiation Dose: Ka,r in mGy = 465.9 Normal [facility] Consent for Treatmenton 03-12 Consent for Treatment [id number] 0CD:127 Normal [facility] Outside Recordson 03-24-2021 Outside Records [id number]. 00CD:127 Normal [facility] Physician Orderon 03-24-2021 Physician Order [id number] 0CD:127 Normal [facility] RAD - MISCon 03-24-2021 RAD - MISC [id number] 0CD:127 Normal [facility] XR Chest 2 Viewson XR Chest [...] Kidd MD Transcribed by: LOUIS Technologist: MAJO Normal [facility] Anesthesia Recordon 12-31-19 Anesthesia Record Patient: MARTÍNEZ SANCHEZ MRN: ([id number] Age: 60 years Sex: Male : 1960 Associated Diagnoses: None Author: Frankie PARDO, Sergo Jewell Procedure Time Out Tennga Protocol: patient identity verified, site verified, side [...] Diagnosis: m16.12 Postoperative Diagnosis: m16.12 . Normal [facility] OR Nursingon 12-30-2020 OR Nursing Normal [facility] PACU I Nursingon 12-30-2020 PACU I Nursing CO NA PACU I Nursing Record Summary Primary Physician: Quentin Ramirez MD Finalized Date/Time: 12/30/20 12:49:47 Pt. Name: RIC SANCHEZ/Sex: 1960 Male Med Rec #: [id number] Physician: Financial #: [id number] Pt. Type: A Room/Bed: / Admit/Disch: 12/30/20 07:04:00 - Institution: [place] NA OR Main PACU I Case Times Entry 1 In PACU I 12/30/20 11:08:00 Ready for PACU I 12/30/20 12:45:00 Discharge Discharge from PACU 12/30/20 12:45:00 PACU I Discharge NA I Delay Reason Last Modified By: Mendoza Soto RN 12/30/20 12:49:41 CO NA OR Main PACU I Case Attendees Entry 1 Case Attendee Janell Lucero RN Role Performed RN Last Modified By: Janell Lucero RN 12/30/20 11:14:22 Finalized By: Mendoza Soto RN Document Signatures Signed By: Mendoza Soto RN 12/30/20 12:49 Normal [facility] PreOp Nursingon 12-30-2020 PreOp Nursing CO NA PreOp Nursing Record Summary Primary Physician: Quentin Ramirez MD Finalized Date/Time: 12/30/20 09:42:21 Pt. Name: RIC SNACHEZ/Sex: 1960 Male Med Rec #: [id number] Physician: Financial #: [id number] Pt. Type: A Room/Bed: / Admit/Disch: 12/30/20 07:04:00 - Institution: [place] NA OR PreOp Case Times Entry 1 PreOp Case Times In Room Time 12/30/20 07:40:00 Out Room Time 12/30/20 09:40:00 Last Modified By: Fernando Zimmerman RN 12/30/20 09:42:21 CO NA OR PreOp Case Attendees Entry 1 Case Attendee Guanaco BAUM , Jenna Barajas RN Last Modified By: Jenna Blanc RN 12/30/20 07:40:38 Finalized By: Fernando Zimmerman RN Document Signatures Signed By: Fernando Zimmerman RN 12/30/20 09:42 Normal [facility] XR Pelvis 1-2 Viewson 2020 XR Pelvis 1 or 2 Views EXAM: XR Pelvis 1-2 Views HISTORY: Postoperative COMPARISON: None. TECHNIQUE: AP radiograph of the pelvis. FINDINGS: There is a left total hip arthroplasty with surrounding postprocedural change. Hardware is intact. Alignment is within expected limits. Partially evaluated right hip is unremarkable. IMPRESSION: Left total hip arthroplasty, as above. [place] thanks you for the opportunity to care for your patient. Workstation ID: [id number] FINAL REPORT Dictated By: Latonya Hampton MD 12/30/2020 13:05 Assigned Physician: Latonya Hampton MD Reviewed and Electronically Signed By: Latonya Hampton MD 12/30/2020 13:06 Transcribed by: CRISTINA 12/30/2020 13:05 Technologist: SARAH Guardado [facility] Comment on above: Order Comment: Posto perative, s/p JENIFFER Basic metabolic 2000 panelon 12-16-2020 Calcium [Mass/Vol] 9.6 mg/dL Normal 8.5-10.6 [facility] Chloride [Moles/Vol] 103 mmol/L Normal 98-107 [facility] CO2 [Moles/Vol] 25 mmol/L Normal 21-32 [facility] Creatinine [Mass/Vol] 0.81 mg/dL Normal 0.70-1.30 [facility] Glucose [Mass/Vol] 133 mg/dL High 70-99 [facility] Potassium [Moles/Vol] 4.2 mmol/L Normal 3.5-5.1 [facility] Sodium [Moles/Vol] 139 mmol/L Normal 136-145 [facility] Urea nitrogen (BldV) [Mass/Vol] 15 mg/dL Normal 7.0-18.0 [facility] Urea nitrogen/Creatinine [Mass ratio] 19 mg/mg Normal [facility] CBC W Auto Differential pane l (Bld)on 12-16-2020 Basophils (Bld) [#/Vol] 0.0 thou/mcL Normal 0.0-0.2 [facility] Basophils/100 WBC (Bld) 0.4 % Normal 0-3 [facility] Differential cell count method Nom (Bld) AUTOMATED DIFFERENTIAL Normal [facility] Eosinophils (Bld) [#/Vol] 0.1 thou/mcL Normal 0.0-0.4 [facility] Eosinophils/100 WBC (Bld) 2.4 % Normal 0-7 [facility] Lymphocytes (Bld) [#/Vol] 2.4 thou/mcL Normal 0.7-4.5 [facility] Lymphocytes/100 WBC (Bld) 49.7 % High 14-46 [facility] Monocytes (Bld) [#/Vol] 0.4 thou/mcL Normal 0.1-1.0 [facility] Monocytes/100 WBC (Bld) 8.1 % Normal 4-13 [facility] Neutrophils (Bld) [#/Vol] 1.9 thou/mcL Normal 1.5-7.8 [facility] Neutrophils/100 WBC (Bld) 39.4 % Low 40-74 [facility] Erythrocyte distribution width (RBC) [Entitic vol] 13.4 % Normal 11.7-15.0 [facility] Hematocrit (Bld) [Volume fraction] 46.0 % Normal 34.0-50.0 [facility] Hemoglobin (Bld) [Mass/Vol] 15.7 g/dL Normal 11.5-17.0 [facility] MCH (RBC) [Entitic mass] 30.5 Picograms Normal 27.0-34.0 [facility] MCHC (RBC) [Mass/Vol] 34.1 g/dL Normal 32.0-36.0 [facility] MCV (RBC) [Entitic vol] 89.3 fL Normal 80-98 [facility] Platelet mean volume (Bld) [Entitic vol] 9.5 fL Normal 7.5-11.2 [facility] Platelets (Bld) [#/Vol] 271 thou/mcL Normal 140-415 [facility] RBC (Bld) [#/Vol] 5.15 x(10)6/mcL Normal 3.80-5.60 Mo [facility] WBC (Bld) [#/Vol] 4.9 thou/mcL Normal 4.0-10.5 [facility] Vital Signs Date Time Vital Sign Value Performing Clinician Facility 06-26-2023 15:00-0500 Body height 175.26 cm [facility] [employer] Other [facility] Other 06-26-2023 15:00-0500 Body mass index (BMI) [Ratio] 29.86 kg/m2 [facility] [employer] Other [facility] Other 06-26-2023 15:00-0500 Body weight 91.72 kg [facility] [employer] Other [facility] Other 06-26-2023 15:00-0500 Diastolic blood pressure 85 mm[Hg] [facility] [employer] Other [facility] Other 06-26-2023 15:00-0500 Respiratory rate 12 /min [facility] [employer] Other [facility] Other 06-26-2023 15:00-0500 Systolic blood pressure 124 mm[Hg] [facility] [employer] Other [facility] Other 03-14-2023 14:00-0400 Body height 175.26 cm Christopher Ball Other [facility] Other 03-14-2023 14:00-0400 Body mass index (BMI) [Ratio] 28.73 kg/m2 Christopher Ball Other [facility] Other 03-14-2023 14:00-0400 Body weight 88.27 kg Christopher Ball Other [facility] Other 03-14-2023 14:00-0400 Diastolic blood pressure 86 mm[Hg] Christopher Ball Other [facility] Other 03-14-2023 14:00-0400 Respiratory rate 12 /min Christopher Ball Other [facility] Other 03-14-2023 14:00-0400 Systolic blood pressure 121 mm[Hg] Christopher Ball Other [facility] Other 12-21-2022 15:00-0400 Body height 175.26 cm Christopher Ball Other [facility] Other 12-21-2022 15:00-0400 Body mass index (BMI) [Ratio] 28.97 kg/m2 Christopher Ball Other [facility] Other 12-21-2022 15:00-0400 Body weight 89 kg Christopher Ball Other [facility] Other 12-21-2022 15:00-0400 Diastolic blood pressure 80 mm[Hg] Christopher Ball Other [facility] Other 12-21-2022 15:00-0400 Respiratory rate 12 /min Christopher Ball Other [facility] Other 07-12-2023 15:00-0400 Systolic blood pressure 126 mm[Hg] Christopher Ball Other [facility] Other 11-26-2022 09:00-0400 Body height 175.26 cm Kacey Moultonley Other [facility] Other 11-26-2022 09:00-0400 Body mass index (BMI) [Ratio] 28.5 kg/m2 Kacey Taylor Other [facility] Other 11-26-2022 09:00-0400 Body temperature 97.1 [degF] Kaceyjose f Vazquez Other [facility] Other 11-26-2022 09:00-0400 Body weight 87.54 kg Kaceyjose f Vazquez Other [facility] Other 11-26-2022 09:00-0400 Diastolic blood pressure 74 mm[Hg] Kaceyjose f Vazquez Other [facility] Other 11-26-2022 09:00-0400 Respiratory rate 18 /min Kacey Taylor Other [facility] Other 11-26-2022 09:00-0400 SaO2% (BldA) [Mass fraction] 97 % Kacey Taylor Other [facility] Other 11-26-2022 09:00-0400 Systolic blood pressure 106 mm[Hg] Kacey Vazquez Other [facility] Other 10-10-2022 16:00-0400 Body height 175.26 cm Christopher Ball Other [facility] Other 10-10-2022 16:00-0400 Body mass index (BMI) [Ratio] 28.59 kg/m2 Christopher Ball Other [facility] Other 10-10-2022 16:00-0400 Body weight 87.82 kg Christopher Ball Other [facility] Other 10-10-2022 16:00-0400 Diastolic blood pressure 77 mm[Hg] Christopher Ball Other [facility] Other 10-10-2022 16:00-0400 SaO2% (BldA) [Mass fraction] 96 % Christopher Ball Other [facility] Other 10-10-2022 16:00-0400 Systolic blood pressure 108 mm[Hg] Christopher Ball Other [facility] Other 08-08-2022 15:45-0500 Body height 175.26 cm Christopher Ball Other [facility] Other 08-08-2022 15:45-0500 Body mass index (BMI) [Ratio] 29.12 kg/m2 Christopher Ball Other [facility] Other 08-08-2022 15:45-0500 Body weight 89.45 kg Christopher Ball Other [facility] Other 08-08-2022 15:45-0500 Diastolic blood pressure 76 mm[Hg] Christopher Ball Other [facility] Other 08-08-2022 15:45-0500 Respiratory rate 12 /min Christopher Ball Other [facility] Other 08-08-2022 15:45-0500 Systolic blood pressure 118 mm[Hg] Christopher Ball Other [facility] Other 11-09-2021 08:53-0400 Blood Pressure Location Linoelan Ansari Jr. [facility] 11-09-2021 08:53-0400 Diastolic blood pressure 88 mm[Hg] Lino Elan Peterson [facility] 11-09-2021 08:53-0400 Heart rate 81 /min Lino Elan Peterson [facility] 11-09-2021 08:53-0400 Systolic blood pressure 113 mm[Hg] Lino Elan Peterson [facility] Encounters Encounter Date Encounter Type Care Provider Facility Start: 06-26-2023 End: 06-26-2023 ambulatory Christopher Ball Other [facility] Other Start: 06-26-2023 Office outpatient vi sit 15 minutes Christopher Ball [facility] Start: 06-14-2023 End: 06-14-2023 ambulatory Christopher Ball Other [facility] Other Start: 06-14-2023 Telephone encounter Christopher Bryce [facility] Start: 05-25-2023 End: 05-25-2023 ambulatory Christopher Ball Other [facility] Other Start: 05-25-2023 Telephone encounter Christopher Ball [facility] Start: 05-24-2023 End: 05-24-2023 ambulatory Christopher Ball Other [facility] Other Start: 05-24-2023 Office outpatient vi sit 15 minutes Christopher Ball [facility] Start: 04-28-2023 End: 04-28-2023 ambulatory Christopher Ball Other [facility] Other Start: 04-28-2023 Telephone encounter Christopher Ball [facility] Start: 03-28-2023 End: 03-28-2023 ambulatory Christopher Ball Other [facility] Other Start: 03-28-2023 Telephone encounter Christopher Ball [facility] Start: 03-22-2023 End: 03-22-2023 ambulatory Christopher Ball Other [facility] Other Start: 03-22-2023 Telephone encounter Christopher Ball [facility] Start: 03-14-2023 End: 03-14-2023 ambulatory Christopher Ball Other [facility] Other Start: 03-14-2023 Office outpatient vi sit 25 minutes Christopher Ball [facility] Start: 02-28-2023 End: 02-28-2023 ambulatory Christopher Bryce Other [facility] Other Start: 02-28-2023 Telephone encounter Christopher Ball [facility] Start: 12-22-2022 End: 12-22-2022 ambulatory Christopher Pearce Other [facility] Other Start: 12-22-2022 Telephone encounter Christopher Ball [facility] Start: 12-21-2022 End: 12-21-2022 ambulatory Christopher Ball Other [facility] Other Start: 12-21-2022 Office outpatient vi sit 25 minutes Christopher Ball [facility] Start: 12-05-2022 End: 12-05-2022 ambulatory Christopher Ball Other [facility] Other Start: 12-05-2022 Office outpatient vi sit 15 minutes Christopher Ball [facility] Start: 11-26-2022 End: 11-26-2022 ambulatory Kacey Vazquez Other [facility] Other Start: 11-26-2022 Office outpatient vi sit 15 minutes Kacey Vazquez [facility] Start: 10-11-2022 End: 10-11-2022 ambulatory Christopher Pearce Other [facility] Other Start: 10-11-2022 Telephone encounter Christopher Pearce [facility] Start: 10-10-2022 End: 10-10-2022 ambulatory Christopher Pearce Other [facility] Other Start: 10-10-2022 Office outpatient vi sit 25 minutes Christopher Pearce [facility] Start: 09-06-2022 End: 09-06-2022 ambulatory Christopher Pearce Other [facility] Other Start: 09-06-2022 Telephone encounter Christopher Pearce [facility] Start: 08-26-2022 End: 08-26-2022 ambulatory Christopher Pearce Other [facility] Other Start: 08-26-2022 Telephone encounter Christopher Pearce [facility] Start: 2022 End: 2022 ambulatory Christopher Pearce Other [facility] Other Start: 2022 Telephone encounter Christopher Pearce [facility] Start: 08-19-2022 End: 08-20-[address] CHRISTOPHER PEARCE Facility:[facility] Start: 08-19-2022 Telephone encounter Christopher Pearce [facility] Start: 08-18-2022 End: 08-18-2022 ambulatory Christopher Pearce Other [facility] Other Start: 08-18-2022 Telephone encounter Christopher Pearce [facility] Start: 08-17-2022 End: 08-18-[address] CHRISTOPHER PEARCE Facility:[facility] Start: 08-17-2022 Telephone encounter Christopher Pearce [facility] Start: 08-08-2022 End: 08-08-2022 ambulatory Christopher Pearce Other [facility] Other Start: 08-08-2022 Office outpatient vi sit 25 minutes Christopher Pearce [facility] Start: 03-15-2022 End: 03-16-[address] LINO Leyva Facility:[facility] Start: 01-25-2022 End: 01-25-2022 ambulatory LEYDI PEREYRA Facility:[facility] Start: 12-22-2021 Encounter for genera l adult medical examination without abnormal findings DR CHRISTOPHER PEARCE [facility] Start: 12-21-2021 End: 12-22-[address] CHRISTOPHER PEARCE Facility:[facility] Start: 12-21-2021 End: 12-22-2021 Encounter for general adult medical examination without abnormal findings DR CHRISTOPHER PEARCE Facility:[facility] Start: 12-14-2021 Adult health examination Christopher Pearce Other [employer] Other Start: 11-09-2021 End: 11-10-2021 ambulatory Lino Ansari Facility:[facility] Start: 11-09-2021 End: 11-09-2021 Patient encounter procedure Lino Ansari Jr. [facility] Start: 08-31-2021 End: 09-01-[address] CHRISTOPHER PEARCE Facility: Start: 04-01-2021 End: 04-02-2021 ambulatory Lino Ansari Facility:[facility] Start: 03-25-2021 End: 03-25-2021 ambulatory Lino Ansari Facility:[facility] Start: 03-24-2021 End: 03-25-2021 ambulatory Lino Ansari Facility:[facility] Procedures Date Procedure Procedure Detail Performing Clinician Start: 12-21-2021 PSA screening LEYDI JAIN Comment on above: Performed By: #### C MP, TSH #### [facility] [address] [place] [address] Dr. Cipriano Simon Start: 03-25-2021 Cystoscopy Lino [...] recombinant Lino Ansari Jr. [facility] NEGATED: Highlighted row has not occurred!11-09-2021 influenza virus vaccine, unspecified formulation Lino Ansari Jr. [facility] Payers Date Payer Category Payer Unknown [id number] 2.16.8 [id number] 1960 Unknown [id number] 2.16.8 [id number] 1960 Unknown [id number] 2.16.8 [id number] 1960 Unknown [id number] 2.16.8 [id number] 1960 Unknown [id number] 2.16.8 [id number] 1960 Unknown [id number] 2.16.84 [id number] 1960 Unknown [id number] 2.16.84 [id number] 1960 Unknown [id number] 2.16.84 [id number] 1960 Unknown [id number] 2.16.84 [id number] 1960 Unknown [id number] 2.16.84 [id number] 1960 Unknown [id number] 1960 Unknown [id number] 1957 Unknown [id number] 1957 Unknown [id number] Unknown [id number] Social History Date Type Detail Facility Start: 11-09-2021 Never smoked tobacco (f inding) [facility] Male [facility] Medical Equipment Procedure Code Equipment Code Equipment Origin al Text Equipment Identifier Dates [id number] [facility] Start: 03-25-2021 Start: 09-06-2022 Clinical Notes 12-30-2020 to 06-26-2023 Note Date & Type Note Facility 06-26-2023 Evaluation note Encounter Date Diagnosis Assessment Notes Jun, Acute pain of left shoulder (ICD-10 - M25.512) Duration of pain and physical findings concerning for labral tear and/or supraspinatus tear. He has failed 3-4 months of conservative care - ice/heat and ROM exercises - NSAIDs Recommend MRI to confirm suspicion prior to referral to Orthopedic surgeon Jun, Type 2 diabetes mellitus with hyperglycemia (ICD-10 - E11.65) Much improved w/ average BS decreased by 25 pts. This patient is following a comprehensive diabetic [...] Microalbumin, Dilated eye exam and Foot exam [facility] Other 12-13-2023 Evaluation note* Encounter Date Diagnosis Assessment Notes Treatment Notes Treatment Clinical Notes May, Acute bronchitis due to other [...] improved FBS BS have increased w/ illness [facility] Other 10-17-2023 Evaluation note* Encounter Date Diagnosis Assessment Notes Treatment Notes Treatment Clinical Notes Mar, Type 2 diabetes mellitus with hyperglycemia (ICD-10 - E11.65) [facility] Other 10-11-2023 Evaluation note* Encounter Date Diagnosis Assessment Notes Treatment Notes Treatment Clinical Notes Mar, Type 2 diabetes mellitus with hyperglycemia (ICD-10 - E11.65) Mar, terminal gauger (current) use of insulin (ICD-10 - Z79.4) [facility] Other 10-03-2023 Evaluation note* Encounter Date Diagnosis [...] exercise for 30 minutes, 3-5 times weekly. [facility] Other 07-13-2023 Evaluation note* Encounter Date Diagnosis Assessment Notes Treatment Notes Treatment Clinical Notes Dec, Type 2 diabetes mellitus with hyperglycemia, without long-term current use of insulin (ICD-10 - E11.65) [facility] Other 07-12-2023 Evaluation note* Encounter Date Diagnosis [...] Avoid stimulants, hydrate and no medication changes [facility] Other 06-26-2023 Evaluation note* Encounter Date Diagnosis [...] of infection. Monitor for now. Push fluids [facility] Other 06-17-2023 Evaluation note* Encounter Date Diagnosis [...] to 7 days, sooner if significantly worsening. [facility] Other 05-01-2023 Evaluation note* Encounter Date Diagnosis [...] They may safely use Tylenol as needed. [facility] Other 03-13-2023 Evaluation note* Encounter Date Diagnosis Assessment Notes Treatment Notes Treatment Clinical Notes Aug, Type 2 diabetes mellitus with hyperglycemia, without long-term current use of insulin (ICD-10 - E11.65) [facility] Other 03-10-2023 Evaluation note* Encounter Date Diagnosis Assessment Notes Treatment Notes Treatment Clinical Notes Aug, Type 2 diabetes mellitus with hyperglycemia, without long-term current use of insulin (ICD-10 - E11.65) Aug, Anemia, unspecified type (ICD-10 - D64.9) [facility] Other 03-09-2023 Evaluation note* Encounter Date Diagnosis Assessment Notes Treatment Notes Treatment Clinical Notes Aug, Type 2 diabetes mellitus with hyperglycemia, without long-term current use of insulin (ICD-10 - E11.65) [facility] Other 03-08-2023 Evaluation note* Encounter Date Diagnosis Assessment Notes Treatment Notes Treatment Clinical Notes Aug, Type 2 diabetes mellitus with hyperglycemia, without long-term current use of insulin (ICD-10 - E11.65) [facility] Other 02-27-2023 Evaluation note* Encounter Date Diagnosis [...] cramp, nocturnal (ICD-10 - R25.2) Reassure, check K, Ca [facility] Other 05-31-2022 Hospital Discharge instructions Patient Education 11/09/2021 09:45:52 Kidney Stones, Rfrx-mq-Uroc Kidney Stones Kidney stones are rock-like masses [...] Follow these instructions at home: Medicines Take mghc-sqk-zivnuiw and prescription medicines only as told by [...] 11/14/2008 Document Revised: 10/15/2019 Document Reviewed: 10/15/2019 [employer] Patient Education 2019 [employer]. Follow Up Care 04/01/2021 14:51:08 With:Elan Peterson MD, Lino Goodson, URO Address: [facility] [address] [place] [address]- When:05/12/2022 Comments:w/kub [facility] 10-26-2021 Note [id number]:127[facility] 04-01-2021 NoteCystoscopy with Stent Removal ? [...] if you have a fever over 100 degrees.[facility] 03-24-2021 [id number]:127[facility]07-21-2021 Hospital Progress notePatient: RIC SANCHEZ MRN: [id number] Age: 60 years Sex: Male : 1960 Associated Diagnoses: None Author: aMrco Alvarado MD Assessment Assessment Diagnosis: Osteoarthritis of left hip (RJS02-FL M16.12, Working, Medical). Plan A medical consult [...] Temperature: 97.7 (12/30 11:10) Pulse: 86 (12/30 11:25) Respiration: 10 (12/30 11:25) BP: 123/70 (12/30 11:25) Pulse Ox: 100 (12/30 11:25) Oxygen Delivery: Nasal cannula (12/30 10:) O2 Device Flow: 1 L/min Pain Score: 0 (12/30 11:25) EXAM: Constitutional - no apparent distress, vitals [...] Begin date: 12/29 11:41 End date: 12/30 11:41 24 Hour Intake: 50.00 Output: 100.00 Balance: [...] Radiology Report for More Detail Diagnosis Documentation [facility]07-21-2021 Anesthesiology Preoperative evaluation and management notePatient: RIC SANCHEZ Age: 60 years Sex: Male [...] Encounter for other preprocedural examination - Jl Alvarado MD , Marco Newton Social History: Type of [...] 10:11 Encounter for other preprocedural examination - Marco Pro MD Social History Drug Use Medications Allergies Contrast dye: Severe, Anxiety attack All Medications Admission Med Reconciliation: Complete 12/29/20 10:44:27 by Mart BAUM , Chelsey Acosta [facility] Medications: cyanocobalamin = 1 Tab, PO, Daily,, [...] thou/mcL 12/16/20 10:32, Lymphocyt (more content not included)...[facility] No data available for this section [facility] [employer] evaluation noteNo InformationNort [employer] Other Hissbss general Narrative - Reported* Type Description Date Medical History Anxiety Medical History diabetes mallitus Medical History left hip pain Surgical History kidney stone Hospitalization History see above [facility] Other Hisxbfs general Narrative - Reported* Type Description Date Medical History Anxiety Medical History diabetes mallitus Medical History left hip pain Surgical History kidney stone Surgical History Left hip replacement Hospitalization History see above [facility] Other Summary Purpose Family History No Family History Records FoundNo Family History Records FoundNo Family History Records Found Advance Directives No Advanced Directives Records FoundNo Advanced Directives Records FoundNo Advanced Directives Records Found Procedure Findings Note Patient: RIC SANCHEZ Age: 60 years Sex: Male : 1960 Associated Diagnoses: None Author: Frankie PARDO, Sergo Jewell Supervising Physician Comments Documentation By: Consulting Physician. [...] section and content) DATE CREATED AUTHOR 03/01/2021 Mercedes Kuhn [facility] DATE CREATED AUTHOR AUTHOR'S ORGANIZ ATION 03/17/2022 Jacob Escobedo [facility] DATE CREATED AUTHOR AUTHOR'S ORGANIZ ATION 08/24/2022 [facility] REASON FOR VISIT (unrecogniz ed section and content) Heart FluttersNo Information No InformationNo InformationLab ResultsMedication AErefillFOLLOW UPmedicationsinus infection, 2 wksSINUS INFECTION [phone] sugar check upNo InformationBS readingsBS NOT CONTROLLEDMedicationNo InformationLabsupdateneck ache, headache, cough, congestionLab resultsXR resultsshoulder pain FOR RECORDS PERTAINING TO PATIENTS WHO ARE [...] BE BASED ON THE PRIMARY CLINICAL RECORDS. [facility]. provides no warranty or guarantee of the accuracy or completeness of information in this document.
--- NOTE | 2023-07-21 07:33 | MR_ITS ---
The [address] [address] Patient Name: RIC SANCHEZ MRN: [id number] date: 1960 Sex: M Assigned Patient Location: [facility] Current Patient Location: [facility] Accession/Order Number: [id number] Exam Date: 07/21/2023 08:00 Report Date: 07/21/2023 09:49 At the request of: SP WU Procedure: MR shoulder LT wo con EXAM: MR shoulder LT wo con HISTORY: Acute Pain Of Left Shoulder M25.512 COMPARISON: None. TECHNIQUE: MRI images obtained with multiple sequences. MRI of the left shoulder without contrast. Sequences obtained by standard department protocol. FINDINGS: Normal alignment of the acromioclavicular joint. Subacromial subdeltoid bursal fluid, consistent with bursitis. Partial-thickness insertional tearing of the distal supraspinatus/infraspinatus tendon, extending through the majority of the distal tendon insertional full-thickness. No significant retraction. Teres minor is intact. Subscapularis is intact. Muscle bulk of the rotator cuff is preserved. No labral detachment. There is degeneration of the posterior labrum. No full-thickness chondral loss. Biceps tendon is intact and within the intertubercular groove. No left axillary adenopathy. MR/MR shoulder LT wo con IMPRESSION: 1. Partial-thickness insertional tearing of the distal supraspinatus/infraspinatus tendon. No significant retraction. No definitive full-thickness extension. 2. Subacromial subdeltoid bursal fluid, consistent with bursitis. 3. No full-thickness chondral loss of the glenohumeral joint. Electronically authenticated by: NIDA SONG Date: 07/21/2023 09:49
--- NOTE | 2023-07-21 07:33 | XR_ITS ---
The [address] [address] Patient Name: RIC SANCHEZ MRN: [id number] date: 1960 Sex: M Assigned Patient Location: RAD Current Patient Location: [facility] Accession/Order Number: [id number] Exam Date: 07/21/2023 07:37 Report Date: 07/21/2023 08:03 At the request of: SP WU Procedure: XR foreign body eye EXAMINATION: XR foreign body eye HISTORY: Foreign Body Eye COMPARISON: No relevant comparison available. FINDINGS: ORBITS: Negative for a metallic foreign body. OTHER: Negative. XR/XR foreign body eye IMPRESSION: No metallic foreign body in the orbits Electronically authenticated by: TANA AMADOR Date: 07/21/2023 08:03
== END 2023-07-21 07:23 | disposition home or self-care (01) ==
LOC: RAD 07:24
PROVIDERS: PCP Internal Medicine; Visit Provider Internal Medicine
DX: M25.512 Pain in left shoulder (principal); M75.112 Incomplete rotator cuff tear or rupture of left shoulder, not specified as traumatic
CPT/HCPCS: 70030; 73221

== ENCOUNTER 2023-08-20 05:59 | Emergency (ER) | payer OTHER, SELFPAY ==
--- OUTSIDE RECORDS SUMMARY | 2023-08-20 06:06 | XMS_ITS | CCD ---
Author Name Unknown Address [facility] [address] [place] [id number] Organization [facility] Care Team Providers Care Manager Transmission Name Role Phone CHRISTOPHER PEARCE Primary Care Physician Lino Ansari Attending Unavailable Elan, Lino Goodson Admitting Unavailable Elan, Lino Goodson Referring Unavailable Elan, Lino Goodson Attending Unavailable Elan, Lino Goodson Admitting Unavailable Ansari, Lino Goodson Referring Unavailable Ansari, Lino Goodson Referring Unavailable Ansari, Lino Goodson Attending Unavailable Ansari, Lino Goodson Admitting Unavailable Ansari, Lino Goodson Attending Unavailable HAFSA, ELYDI Attending Unavailable HAFSA, LEYDI Admitting Unavailable BRYCE, [...] Drug Allergy 11-12-19 17 Unknown [facility] (2 sources) celecoxib; 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: [celecoxib] Drug Allergy 03-29-20 20 Unknown [facility] (16 sources) Iodine; 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: [iodine] Drug Allergy Unknown (qualifier value) [facility] Comment on above: pt states radioactiv e iodine only, not topical (1 source) Baclofen Drug Allergy 11-13-[address] [facility] (1 source) celecoxib Drug Allergy 03-30-[address] [facility] (1 source) Iodine (And Iodine Containting Drugs) Drug allergy (disorder) 03-30-[address] [facility] (14 sources) Azithromycin Drug Allergy Unknown [place] Other (20 sources) Ciprofloxacin Drug Allergy Unknown [place] [facility] (14 sources) Sulfamethoxazole / Trimethoprim Drug Allergy Unknown [place] Other (1 source) patient allergy list reviewed by nurse or physicia Propensity to adverse reactions 01-03-20 Comment:Done [place] Other Medications Current Medications Medication Drug Class(es) [...] Ordered doxycycline hyclate 100 mg oral capsule (20 sources) Tetracycline-class Drug Start: 12-05-2022 take 1 [...] ml insulin glargine 100 unt/ml pen injector (10 sources) Insulin Analog Start: 03-22-2023 Lantus SoloSta [...] mg / clavulanate 125 mg oral tablet (16 sources) Penicillin-class Antibacterial Start: 11-26-2022 take 1 tablet by mouth every twelve hours Amoxicillin-Pot Clavulanate 875-125 MG 1 tablet Orally every 12 hrs for 10 days Nov, Not-Taking/PRN dextromethorphan hydrobromide 15 mg / guaiFENesin 400 mg / pseudoephedrine hydrochloride 60 mg oral tablet (16 sources) alpha-Adrenergic Agonist, Uncompetitive U-bbmavm-G-aspartate Receptor Antagonist, Sigma-1 Agonist Start: 11-26-2022 take [...] Onset: 08-31-2021 Chronic Diabetes mellitus without complication (17 sources) Type 2 diabetes mellitus without complication; [...] primary osteoarthritis, left hip] Chronic Other aftercare (10 sources) Long-term current use of insulin; 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] Episodic Other aftercare (1 source) 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 Episodic Other connective [...] chronic pain] Chronic Other non-traumatic joint disorders (2 sources) Pain in left shoulder Episodic Other nutritional; [...] 06-19-2017 Epis[facility] Other aftercare (1 source) Other snf (current) drug therapy; 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: [OTH SNF CURRENT DRUG THERAPY] Onset: 01-27-2022 Episodic Other aftercare (1 source) 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 [address] [address] [address] Cipriano Simon Basophils/100 WBC (Bld) 0.8 % Normal 0.2-2.0 [facility] Comment on above: Performed By: #### C MP, TSH #### [facility] [address] [address] [address] Cipriano Simon EO # 0.1 103/ul Normal 0.0-0.7 [facility] Comment on above: Performed By: #### C MP, TSH #### [facility] [address] [place] [address] Dr. Cipriano Simon Eosinophils/100 WBC (Bld) 1.8 % Normal 0.9-7.0 [facility] Comment on above: Performed By: #### C MP, TSH #### [facility] [address] [place] [address] Dr. Cipriano Simon Erythrocyte distribution width (RBC) [Ratio] 12.8 % Normal 11.0-15.0 [facility] Comment on above: Performed By: #### C MP, TSH #### [facility] [address] [place] [address] Dr. Cipriano Simon Hematocrit (Bld) [Volume fraction] 46.3 % Normal 42.0-54.0 [facility] Comment on above: Performed By: #### C MP, TSH #### [facility] [address] [place] [address] Dr. Cipriano Simon Hemoglobin (Bld) [Mass/Vol] 15.8 g/dL Normal 14.0-18.0 [facility] Comment on above: Performed By: #### C MP, TSH #### [facility] [address] [place] [address] Dr. Cipriano Simon IG # 0.05 10e3/ul Critically high 0.00-0.03 [facility] Comment on above: Performed By: #### C MP, TSH #### [facility] [address] [place] [address] Dr. Cipriano Simon IG % 1.0 % Critically high 0.0-0.5 [facility] [place] [facility] Comment on above: Performed By: #### C MP, TSH #### [facility] [address] [place] [address] Dr. Cipriano Simon LYMPH # 2.6 103/ul Normal 1.2-3.8 [facility] Comment on above: Performed By: #### C MP, TSH #### [facility] [address] [place] [address] Dr. Cipriano Simon Lymphocytes/100 WBC (Bld) 52.7 % Normal 20.5-60.0 [facility] Comment on above: Performed By: #### C MP, TSH #### [facility] [address] [place] [address] Dr. Cipriano Simon MANUAL DIFF REQ NO Normal [facility] [place] [facility] Comment on above: Performed By: #### C MP, TSH #### [facility] [address] [place] [address] Dr. Cipriano Simon MCH (RBC) [Entitic mass] 29.0 pg Normal 25.9-34.0 [facility] Comment on above: Performed By: #### C MP, TSH #### [facility] [address] [place] [address] Dr. Cipriano Simon MCHC (RBC) [Mass/Vol] 34.1 g/dL Normal 29.9-35.2 [facility] Comment on above: Performed By: #### C MP, TSH #### [facility] [address] [place] [address] Dr. Cipriano Simon MCV (RBC) [Entitic vol] 85.0 fL Normal 80.0-94.0 [facility] Comment on above: Performed By: #### C MP, TSH #### [facility] [address] [place] [address] Dr. Cipriano Simon MONO # 0.4 103/ul Normal 0.3-0.8 [facility] Comment on above: Performed By: #### C MP, TSH #### [facility] [address] [place] [address] Dr. Cipriano Simon Monocytes/100 WBC (Bld) 7.2 % Normal 1.7-12.0 [facility] Comment on above: Performed By: #### C MP, TSH #### [facility] [address] [place] [address] Dr. Cipriano Simon NEUT # 1.8 103/ul Normal 1.4-6.5 [facility] Comment on above: Performed By: #### C MP, TSH #### [facility] [address] [place] [address] Dr. Cipriano Simon Neutrophils/100 WBC (Bld) 36.5 % Critically low 43.0-75.0 [facility] Comment on above: Performed By: #### C MP, TSH #### [facility] [address] [place] [address] Dr. Cipriano Simon Platelet mean volume (Bld) [Entitic vol] 10.7 fL Normal 9.5-13.5 [facility] Comment on above: Performed By: #### C MP, TSH #### [facility] [address] [place] [address] Dr. Cipriano Simon PLT 214 103/ul Normal 150-450 [facility] Comment on above: Performed By: #### C MP, TSH #### [facility] [address] [place] [address] Dr. Cipriano Simon RBC 5.45 106/ul Normal 4.70-6.10 [facility] Comment on above: Performed By: #### C MP, TSH #### [facility] [address] [place] [address] Dr. Cipriano Simon WBC 5.0 103/ul Normal 4.0-11.0 [facility] Comment on above: Performed By: #### C MP, TSH #### [facility] [address] [place] [address] Dr. Cipriano Simon GLYCOHEMOGLOBIN A1Con 2022 ADA RECOMMENDATION SEE BELOW Normal [facility] Comment on above: Result Comment: ADA RECOMMENDED LIMIT 4.0 - 6.0 ADA THERAPEUTIC TARGET < 7.0 ACTION SUGGESTED > 7.0 Performed By: #### C MP, TSH #### [facility] [address] [place] [address] Dr. Cipriano Simon Glucose [Mass/Vol] 209 mg/dL Normal [facility] Comment on above: Performed By: #### C MP, TSH #### [facility] [address] [place] [address] Dr. Cipriano Simon HbA1c (Bld) [Mass fraction] 8.9 % Critically high 4.5-6.2 [facility] Comment on above: Performed By: #### C MP, TSH #### [facility] [address] [place] [address] Dr. Cipriano Simon MICROALBUMIN, RAND URon 03-0 mALB 1.8 mg/L Normal <=30.0 [facility] Comment on above: Performed By: #### M ALBR #### [facility] [address] [place] [address] Dr. Cipriano Simon PROF 14(COMP METB)on 023 Albumin [Mass/Vol] 4.1 g/dL Normal 3.4-5.0 [facility] Comment on above: Performed By: #### C MP, TSH #### [facility] [address] [place] [address] Dr. Cipriano Simon Albumin/Globulin [Mass ratio] 1.2 {ratio} Normal [facility] Comment on above: Performed By: #### C MP, TSH #### [facility] [address] [place] [address] Dr. Cipriano Simon ALP [Catalytic activity/Vol] 106 U/L Normal 46-116 [facility] Comment on above: Performed By: #### C MP, TSH #### [facility] [address] [place] [address] Dr. Cipriano Simon ALT [Catalytic activity/Vol] 42 U/L Normal 16-[address] [facility] Comment on above: Performed By: #### C MP, TSH #### [facility] [address] [place] [address] Dr. Cipriano Simon Anion gap [Moles/Vol] 12.7 mmol/L Normal [facility] Comment on above: Performed By: #### C MP, TSH #### [facility] [address] [place] [address] Dr. Cipriano Simon AST [Catalytic activity/Vol] 15 U/L Normal 15-37 [facility] Comment on above: Performed By: #### C MP, TSH #### [facility] [address] [address] [address] Cipriano Simon Bilirubin [Mass/Vol] 0.5 mg/dL Normal 0.2-1.0 [facility] Comment on above: Performed By: #### C MP, TSH #### [facility] [address] [address] [address] Cipriano Simon Calcium [Mass/Vol] 8.9 mg/dL Normal 8.5-10.1 [facility] Comment on above: Performed By: #### C MP, TSH #### [facility] [address] [place] [address] Dr. Cipriano Simon Chloride [Moles/Vol] 101 mmol/L Normal 98-107 [facility] Comment on above: Performed By: #### C MP, TSH #### [facility] [address] [place] [address] Dr. Cipriano Simon CO2 [Moles/Vol] 29.1 mmol/L Normal 21.0-32.0 [facility] Comment on above: Performed By: #### C MP, TSH #### [facility] [address] [place] [address] Dr. Cipriano Simon Creatinine [Mass/Vol] 0.95 mg/dL Normal 0.70-1.30 [facility] Comment on above: Performed By: #### C MP, TSH #### [facility] [address] [place] [address] Dr. Cipriano Simon EGFR-AF KOSOVAN >60 Normal >=60 [facility] Comment on above: Performed By: #### C MP, TSH #### [facility] [address] [place] [address] Dr. Cipriano Simon EGFR-NON AF KOSOVAN >60 Normal >=60 [facility] Comment on above: Performed By: #### C MP, TSH #### [facility] [address] [place] [address] Dr. Cipriano Simon Globulin (S) [Mass/Vol] 3.5 g/dL Normal [facility] Comment on above: Performed By: #### C MP, TSH #### [facility] [address] [place] [address] Dr. Cipriano Simon Glucose [Mass/Vol] 256 mg/dL Critically high 74-106 [facility] Comment on above: Performed By: #### C MP, TSH #### [facility] [address] [place] [address] Dr. Cipriano Simon Potassium [Moles/Vol] 3.8 mmol/L Normal 3.5-5.1 [facility] Comment on above: Performed By: #### C MP, TSH #### [facility] [address] [place] [address] Dr. Cipriano Simon Protein [Mass/Vol] 7.6 g/dL Normal 6.4-8.2 [facility] Comment on above: Performed By: #### C MP, TSH #### [facility] [address] [place] [address] Dr. Cipriano Simon Sodium [Moles/Vol] 139 mmol/L Normal 136-145 [facility] Comment on above: Performed By: #### C MP, TSH #### [facility] [address] [place] [address] Dr. Cipriano Simon Urea nitrogen [Mass/Vol] 14.0 mg/dL Normal 7.0-18.0 [facility] Comment on above: Performed By: #### C MP, TSH #### [facility] [address] [place] [address] Dr. Cipriano Simon Urea nitrogen/Creatinine [Mass ratio] 14.7 mg/mg Normal [facility] Comment on above: Performed By: #### C MP, TSH #### [facility] [address] [place] [address] Dr. Cipriano Simon TSHon 08-17-2022 TSH 1.540 uIU/mL Normal 0.358-3.740 [facility] Comment on above: Performed By: #### C MP, TSH #### [facility] [address] [place] [address] Dr. Cipriano Simon RAD - MISCon 03-16-2022 RAD - MISC [id number] Normal [facility] TESTOSTERONE, TOTALon 2021 Testosterone [Mass/Vol] 906 ng/dL Normal 264-916 [facility] Comment on above: Result Comment: Adul t male reference interval is based on a population of healthy nonobese males (BMI <30) between 19 and 39 years old. Iban, et.al. JCEM 2017,102;9621-9792. PMID: [id number]. Performed By: #### C MP, TSH #### [facility] [address] [address] [address] Cipriano Simon GLYCOHEMOGLOBIN A1Con 2021 ADA RECOMMENDATION SEE BELOW Normal [facility] Comment on above: Result Comment: ADA RECOMMENDED LIMIT 4.0 - 6.0 ADA THERAPEUTIC TARGET < 7.0 ACTION SUGGESTED > 7.0 Performed By: #### A 1C #### [facility] [address] [address] [address] Cipriano Simon Glucose [Mass/Vol] 171 mg/dL Normal [facility] Comment on above: Performed By: #### A 1C #### [facility] [address] [address] [address] Cipriano Simon HbA1c (Bld) [Mass fraction] 7.6 % Critically high 4.5-6.2 [facility] Comment on above: Performed By: #### A 1C #### [facility] [address] [address] [address] Cipriano Simon XR KUB 1 VIEWon [...] CASE SANDY Date: 2022-03-15 08:36 Normal [facility] XR LSPINE 2_3 VIEWSon 2021 XR LSPINE [...] CASE SANDY Date: 2022-03-15 08:44 Normal [facility] AMYLASEon 01-25-2022 Amylase [Catalytic activity/Vol] 55 U/L Normal 25-[address] [facility] Comment on above: Performed By: #### C MP, LIPA, CMADM, RISSA #### [facility] [address] [address] [address] Cipriano Simon CARDIAC MELINDA ADMITon 022 CK [Catalytic activity/Vol] 76 U/L Normal 39-308 [facility] Comment on above: Performed By: #### C MP, LIPA, CMADM, RISSA #### [facility] [address] [address] [address] Cipriano Simon CK.MB [Mass/Vol] ng/mL Normal <=3.60 [facility] Comment on above: Performed By: #### C MP, LIPA, CMADM, RISSA #### [facility] [address] [address] [address] Cipriano Simon HSTROP 4.8 pg/mL Normal 4.0-76.1 [facility] Comment on above: Result Comment: CUT- OFF POINTS HAVE BEEN ESTABLISHED BASED ON THE FOURTH UNIVERSAL DEFINITIONS OF MYOCARDIAL INFARCTION. THE UPPER REFERENCE LIMIT (URL) OF TROPONIN, DEFINED THE 99TH PERCENTILE OF cTnI DISTRIBUTION IN A REFERENCE POPULATION, HAS BEEN CONFIRMED THE DECISION THRESHOLD FOR AL DIAGNOSIS. Performed By: #### C MP, LIPA, CMADM, RISSA #### [facility] [address] [place] [address] Dr. Cipriano Simon GEOVANNA 33 ng/mL Normal 16-96 [facility] Comment on above: Performed By: #### C MP, LIPA, CMADM, RISSA #### [facility] [address] [place] [address] Dr. Cipriano Simon CBC AUTO DIFFon 01-25-2022 BASO # 0.0 103/ul Normal 0.0-0.1 [facility] Comment on above: Performed By: #### A 1C #### [facility] [address] [place] [address] Dr. Cipriano Simon Basophils/100 WBC (Bld) 0.3 % Normal 0.2-2.0 [facility] Comment on above: Performed By: #### A 1C #### [facility] [address] [place] [address] Dr. Cipriano Simon EO # 0.1 103/ul Normal 0.0-0.7 [facility] Comment on above: Performed By: #### A 1C #### [facility] [address] [place] [address] Dr. Cipriano Simon Eosinophils/100 WBC (Bld) 1.7 % Normal 0.9-7.0 [facility] Comment on above: Performed By: #### A 1C #### [facility] [address] [place] [address] Dr. Cipriano Simon Erythrocyte distribution width (RBC) [Ratio] 12.7 % Normal 11.0-15.0 [facility] Comment on above: Performed By: #### A 1C #### [facility] [address] [place] [address] Dr. Cipriano Simon Hematocrit (Bld) [Volume fraction] 43.3 % Normal 42.0-54.0 [facility] Comment on above: Performed By: #### A 1C #### [facility] [address] [place] [address] Dr. Cipriano Simon Hemoglobin (Bld) [Mass/Vol] 15.1 g/dL Normal 14.0-18.0 [facility] Comment on above: Performed By: #### A 1C #### [facility] [address] [place] [address] Dr. Cipriano Simon IG # 0.04 10e3/ul Critically high 0.00-0.03 [facility] Comment on above: Performed By: #### A 1C #### [facility] [address] [place] [address] Dr. Cipriano Simon IG % 0.6 % Critically high 0.0-0.5 [facility] [place] [facility] Comment on above: Performed By: #### A 1C #### [facility] [address] [place] [address] Dr. Cipriano Simon LYMPH # 2.9 103/ul Normal 1.2-3.8 [facility] Comment on above: Performed By: #### A 1C #### [facility] [address] [place] [address] Dr. Cipriano Simon Lymphocytes/100 WBC (Bld) 42.1 % Normal 20.5-60.0 [facility] Comment on above: Performed By: #### A 1C #### [facility] [address] [place] [address] Dr. Cipriano Simon MANUAL DIFF REQ NO Normal [facility] [place] [facility] Comment on above: Performed By: #### A 1C #### [facility] [address] [place] [address] Dr. Cipriano Simon MCH (RBC) [Entitic mass] 29.5 pg Normal 25.9-34.0 [facility] Comment on above: Performed By: #### A 1C #### [facility] [address] [place] [address] Dr. Cipriano Simon MCHC (RBC) [Mass/Vol] 34.9 g/dL Normal 29.9-35.2 [facility] Comment on above: Performed By: #### A 1C #### [facility] [address] [place] [address] Dr. Cipriano Simon MCV (RBC) [Entitic vol] 84.7 fL Normal 80.0-94.[address] [facility] Comment on above: Performed By: #### A 1C #### [facility] [address] [address] [address] Cipriano Simon MONO # 0.4 103/ul Normal 0.3-0.[address] [facility] Comment on above: Performed By: #### A 1C #### [facility] [address] [address] [address] Cipriano Simon Monocytes/100 WBC (Bld) 5.5 % Normal 1.7-12.0 [facility] Comment on above: Performed By: #### A 1C #### [facility] [address] [place] [address] Dr. Cipriano Simon NEUT # 3.4 103/ul Normal 1.4-6.5 [facility] Comment on above: Performed By: #### A 1C #### [facility] [address] [place] [address] Dr. Cipriano Simon Neutrophils/100 WBC (Bld) 49.8 % Normal 43.0-75.0 [facility] Comment on above: Performed By: #### A 1C #### [facility] [address] [place] [address] Dr. Cipriano Simon Platelet mean volume (Bld) [Entitic vol] 9.4 fL Critically low 9.5-13.5 [facility] Comment on above: Performed By: #### A 1C #### [facility] [address] [place] [address] Dr. Cipriano Simon PLT 238 103/ul Normal 150-[address] [facility] Comment on above: Performed By: #### A 1C #### [facility] [facility] [address] [place] [address] Dr. Cipriano Simon RBC 5.11 106/ul Normal 4.70-6.[address] [facility] Comment on above: Performed By: #### A 1C #### [facility] [address] [place] [address] Dr. Cipriano Simon WBC 6.9 103/ul Normal 4.0-11.[address] [facility] Comment on above: Performed By: #### A 1C #### [facility] [address] [place] [address] Dr. Cipriano Simon LACTATE/LACTIC ACIDon 2021 Lactate [Moles/Vol] 1.2 mmol/L Normal 0.4-1.9 [facility] Comment on above: Performed By: #### A 1C #### [facility] [address] [place] [address] Dr. Cipriano Simon LIPASEon 01-25-2022 Lipase [Catalytic activity/Vol] 89.0 U/L Normal 73.0-393.0 [facility] Comment on above: Performed By: #### C MP, LIPA, CMADM, RISSA #### [facility] [address] [place] [address] Dr. Cipriano Simon PROF 14(COMP METB)on 022 Albumin [Mass/Vol] 3.8 g/dL Normal 3.4-5.0 [facility] Comment on above: Performed By: #### C MP, LIPA, CMADM, RISSA #### [facility] [address] [place] [address] Dr. Cipriano Simon Albumin/Globulin [Mass ratio] 1.1 {ratio} Normal [facility] Comment on above: Performed By: #### C MP, LIPA, CMADM, RISSA #### [facility] [address] [place] [address] Dr. Cipriano Simon ALP [Catalytic activity/Vol] 111 U/L Normal 46-[address] [facility] Comment on above: Performed By: #### C MP, LIPA, CMADM, RISSA #### [facility] [address] [place] [address] Dr. Cipriano Simon ALT [Catalytic activity/Vol] 41 U/L Normal 16-[address] [facility] Comment on above: Performed By: #### C MP, LIPA, CMADM, RISSA #### [facility] [address] [place] [address] Dr. Cipriano Simon Anion gap [Moles/Vol] 11.5 mmol/L Normal [facility] Comment on above: Performed By: #### C MP, LIPA, CMADM, RISSA #### [facility] [address] [place] [address] Dr. Cipriano Simon AST [Catalytic activity/Vol] 16 U/L Normal 15-[address] [facility] Comment on above: Performed By: #### C MP, LIPA, CMADM, RISSA #### [facility] [address] [place] [address] Dr. Cipriano Simon Bilirubin [Mass/Vol] 0.5 mg/dL Normal 0.2-1.0 [facility] Comment on above: Performed By: #### C MP, LIPA, CMADM, RISSA #### [facility] [address] [place] [address] Dr. Cipriano Simon Calcium [Mass/Vol] 9.0 mg/dL Normal 8.5-10.1 [facility] Comment on above: Performed By: #### C MP, LIPA, CMADM, RISSA #### [facility] [address] [place] [address] Dr. Cipriano Simon Chloride [Moles/Vol] 101 mmol/L Normal 98-[address] [facility] Comment on above: Performed By: #### C MP, LIPA, CMADM, RISSA #### [facility] [address] [place] [address] Dr. Cipriano Simon CO2 [Moles/Vol] 26.1 mmol/L Normal 21.0-32.0 [facility] Comment on above: Performed By: #### C MP, LIPA, CMADM, RISSA #### [facility] [address] [place] [address] Dr. Cipriano Simon Creatinine [Mass/Vol] 0.84 mg/dL Normal 0.70-1.[address] [facility] Comment on above: Performed By: #### C MP, LIPA, CMADM, RISSA #### [facility] [address] [place] [address] Dr. Cipriano Simon EGFR-AF KOSOVAN >60 Normal >=60 [facility] Comment on above: Performed By: #### C MP, LIPA, CMADM, RISSA #### [facility] [address] [place] [address] Dr. Cipriano Simon EGFR-NON AF KOSOVAN >60 Normal >=60 [facility] Comment on above: Performed By: #### C MP, LIPA, CMADM, RISSA #### [facility] [address] [address] [address] Cipriano Simon Globulin (S) [Mass/Vol] 3.4 g/dL Normal [facility] Comment on above: Performed By: #### C MP, LIPA, CMADM, RISSA #### [facility] [address] [address] [address] Cipriano Simon Glucose [Mass/Vol] 245 mg/dL Critically high 74-106 [facility] Comment on above: Performed By: #### C MP, LIPA, CMADM, RISSA #### [facility] [address] [place] [address] Dr. Cipriano Simon Potassium [Moles/Vol] 3.6 mmol/L Normal 3.5-5.1 [facility] Comment on above: Performed By: #### C MP, LIPA, CMADM, RISSA #### [facility] [address] [address] [address] Cipriano Simon Protein [Mass/Vol] 7.2 g/dL Normal 6.4-8.2 [facility] Comment on above: Performed By: #### C MP, LIPA, CMADM, RISSA #### [facility] [address] [place] [address] Dr. Cipriano Simon Sodium [Moles/Vol] 135 mmol/L Critically low 136-[address] [facility] Comment on above: Performed By: #### C MP, LIPA, CMADM, RISSA #### [facility] [address] [address] [address] Cipriano Simon Urea nitrogen [Mass/Vol] 13.0 mg/dL Normal 7.0-18.0 [facility] Comment on above: Performed By: #### C MP, LIPA, CMADM, RISSA #### [facility] [address] [place] [address] Dr. Cipriano Simon Urea nitrogen/Creatinine [Mass ratio] 15.5 mg/mg Normal [facility] Comment on above: Performed By: #### C MP, LIPA, CMADM, RISSA #### [facility] [address] [place] [address] Dr. Cipriano Simon XR ABD FLAT UP_PA [...] BRIA WELLINGTON Date: 2022-01-25 02:00 Normal [facility] CBC AUTO DIFFon 12-21-2021 BASO # 0.0 103/ul Normal 0.0-0.1 [facility] Comment on above: Performed By: #### C MP, TSH #### [facility] [address] [place] [address] Dr. Cipriano Simon Basophils/100 WBC (Bld) 0.5 % Normal 0.2-2.[address] [facility] Comment on above: Performed By: #### C MP, TSH #### [facility] [address] [address] [address] Cipriano Simon EO # 0.2 103/ul Normal 0.0-0.[address] [facility] Comment on above: Performed By: #### C MP, TSH #### [facility] [address] [place] [address] Dr. Cipriano Simon Eosinophils/100 WBC (Bld) 2.9 % Normal 0.9-7.0 [facility] Comment on above: Performed By: #### C MP, TSH #### [facility] [address] [place] [address] Dr. Cipriano Simon Erythrocyte distribution width (RBC) [Ratio] 13.0 % Normal 11.0-15.0 [facility] Comment on above: Performed By: #### C MP, TSH #### [facility] [address] [place] [address] Dr. Cipriano Simon Hematocrit (Bld) [Volume fraction] 44.9 % Normal 42.0-54.0 [facility] Comment on above: Performed By: #### C MP, TSH #### [facility] [address] [place] [address] Dr. Cipriano Simon Hemoglobin (Bld) [Mass/Vol] 15.7 g/dL Normal 14.0-18.0 [facility] Comment on above: Performed By: #### C MP, TSH #### [facility] [address] [place] [address] Dr. Cipriano Simon IG # 0.03 10e3/ul Normal 0.00-0.03 [facility] Comment on above: Performed By: #### C MP, TSH #### [facility] [address] [place] [address] Dr. Cipriano Simon IG % 0.5 % Normal 0.0-0.5 [facility] Comment on above: Performed By: #### C MP, TSH #### [facility] [address] [place] [address] Dr. Cipriano Simon LYMPH # 2.6 103/ul Normal 1.2-3.8 [facility] Comment on above: Performed By: #### C MP, TSH #### [facility] [address] [place] [address] Dr. Cipriano Simon Lymphocytes/100 WBC (Bld) 44.6 % Normal 20.5-60.0 [facility] Comment on above: Performed By: #### C MP, TSH #### [facility] [address] [place] [address] Dr. Cipriano Simon MANUAL DIFF REQ NO Normal [facility] Comment on above: Performed By: #### C MP, TSH #### [facility] [address] [place] [address] Dr. Cipriano Simon MCH (RBC) [Entitic mass] 29.7 pg Normal 25.9-34.0 [facility] Comment on above: Performed By: #### C MP, TSH #### [facility] [address] [place] [address] Dr. Cipriano Simon MCHC (RBC) [Mass/Vol] 35.0 g/dL Normal 29.9-35.[address] [facility] Comment on above: Performed By: #### C MP, TSH #### [facility] [address] [place] [address] Dr. Cipriano Simon MCV (RBC) [Entitic vol] 84.9 fL Normal 80.0-94.0 [facility] Comment on above: Performed By: #### C MP, TSH #### [facility] [address] [place] [address] Dr. Cipriano Simon MONO # 0.4 103/ul Normal 0.3-0.8 [facility] Comment on above: Performed By: #### C MP, TSH #### [facility] [address] [place] [address] Dr. Cipriano Simon Monocytes/100 WBC (Bld) 7.0 % Normal 1.7-12.0 [facility] Comment on above: Performed By: #### C MP, TSH #### [facility] [address] [place] [address] Dr. Cipriano Simon NEUT # 2.6 103/ul Normal 1.4-6.[address] [facility] Comment on above: Performed By: #### C MP, TSH #### [facility] [address] [place] [address] Dr. Cipriano Simon Neutrophils/100 WBC (Bld) 44.5 % Normal 43.0-75.[address] [facility] Comment on above: Performed By: #### C MP, TSH #### [facility] [address] [place] [address] Dr. Cipriano Simon Platelet mean volume (Bld) [Entitic vol] 9.3 fL Critically low 9.5-13.5 [facility] Comment on above: Performed By: #### C MP, TSH #### [facility] [address] [place] [address] Dr. Cipriano Simon PLT 215 103/ul Normal 150-450 [facility] Comment on above: Performed By: #### C MP, TSH #### [facility] [address] [place] [address] Dr. Cipriano Simon RBC 5.29 106/ul Normal 4.70-6.10 [facility] Comment on above: Performed By: #### C MP, TSH #### [facility] [address] [place] [address] Dr. Cipriano Simon WBC 5.9 103/ul Normal 4.0-11.0 [facility] Comment on above: Performed By: #### C MP, TSH #### [facility] [address] [place] [address] Dr. Cipriano Simon GLYCOHEMOGLOBIN A1Con 2021 ADA RECOMMENDATION SEE BELOW Normal [facility] Comment on above: Result Comment: ADA RECOMMENDED LIMIT 4.0 - 6.0 ADA THERAPEUTIC TARGET < 7.0 ACTION SUGGESTED > 7.0 Performed By: #### A 1C #### [facility] [address] [place] [address] Dr. Cipriano Simon Glucose [Mass/Vol] 169 mg/dL Normal [facility] Comment on above: Performed By: #### A 1C #### [facility] [address] [place] [address] Dr. Cipriano Simon HbA1c (Bld) [Mass fraction] 7.5 % Critically high 4.5-6.2 [facility] Comment on above: Performed By: #### A 1C #### [facility] [address] [place] [address] Dr. Cipriano Simon LIPID PROFILEon 12-21-2021 CHOL-HDL RATIO NORM SEE BELOW Normal [facility] Comment on above: Result Comment: 3.3 - 4.4 LOW RISK 4.4 - 7.1 AVERAGE RISK 7.1 - 11.0 MODERATE RISK >11.0 HIGH RISK Performed By: #### C MP, TSH #### [facility] [address] [address] [address] Cipriano Simon Cholesterol [Mass/Vol] 185 mg/dL Normal <=200 [facility] Comment on above: Performed By: #### C MP, TSH #### [facility] [address] [address] [address] Cipriano Simon Cholesterol in HDL [Mass/Vol] 39 mg/dL Critically low 40-60 [facility] Comment on above: Performed By: #### C MP, TSH #### [facility] [address] [address] [address] Cipriano Simon Cholesterol in LDL [Mass/Vol] 99.2 mg/dL Normal [facility] Comment on above: Performed By: #### C MP, TSH #### [facility] [address] [address] [address] Cipriano Simon Cholesterol.total/Ch olesterol in HDL [Mass ratio] 4.7 {ratio} Normal [facility] Comment on above: Performed By: #### C MP, TSH #### [facility] [address] [address] [address] Cipriano Simon HDL NORMAL > or = 60 mg/dl - LO W CARDIOVASCULAR RISK <40 mg/dl - HIGH CARDIOVASCULAR RISK Normal [facility] Comment on above: Performed By: #### C MP, TSH #### [facility] [address] [address] [address] Cipriano Simon LDL CALC NORMAL SEE BELOW Normal [facility] Comment on above: Result Comment: <100 mg/dl OPTIMAL 100 - 129 mg/dl NEAR OR ABOVE OPTIMAL 130 - 159 mg/dl BORDERLINE HIGH 160 - 189 mg/dl HIGH >190 mg/dl VERY HIGH Performed By: #### C MP, TSH #### [facility] [address] [address] [address] Cipriano Simon Triglyceride [Mass/Vol] 234 mg/dL Critically high <=150 [facility] Comment on above: Performed By: #### C MP, TSH #### [facility] [address] [place] [address] Dr. Cipriano Simon VLDL CALC 46.8 mg/dL Normal [facility] Comment on above: Performed By: #### C MP, TSH #### [facility] [address] [place] [address] Dr. Cipriano Simon MICROALBUMIN, RAND URon 07- mALB <1.3 Normal <=30.0 [facility] Comment on above: Performed By: #### M ALBR #### [facility] [address] [place] [address] Dr. Cipriano Simon PROF 14(COMP METB)on 022 Albumin [Mass/Vol] 3.9 g/dL Normal 3.4-5.0 [facility] Comment on above: Performed By: #### C MP, TSH #### [facility] [address] [place] [address] Dr. Cipriano Simon Albumin/Globulin [Mass ratio] 1.1 {ratio} Normal [facility] Comment on above: Performed By: #### C MP, TSH #### [facility] [address] [place] [address] Dr. Cipriano Simon ALP [Catalytic activity/Vol] 96 U/L Normal 46-116 [facility] Comment on above: Performed By: #### C MP, TSH #### [facility] [address] [place] [address] Dr. Cipriano Simon ALT [Catalytic activity/Vol] 51 U/L Normal 16-[address] [facility] Comment on above: Performed By: #### C MP, TSH #### [facility] [address] [place] [address] Dr. Cipriano Simon Anion gap [Moles/Vol] 13.4 mmol/L Normal [facility] Comment on above: Performed By: #### C MP, TSH #### [facility] [address] [place] [address] Dr. Cipriano Simon AST [Catalytic activity/Vol] 15 U/L Normal 15-37 [facility] Comment on above: Performed By: #### C MP, TSH #### [facility] [address] [place] [address] Dr. Cipriano Simon Bilirubin [Mass/Vol] 0.8 mg/dL Normal 0.2-1.[address] [facility] Comment on above: Performed By: #### C MP, TSH #### [facility] [address] [place] [address] Dr. Cipriano Simon Calcium [Mass/Vol] 8.8 mg/dL Normal 8.5-10.1 [facility] Comment on above: Performed By: #### C MP, TSH #### [facility] [address] [place] [address] Dr. Cipriano Simon Chloride [Moles/Vol] 105 mmol/L Normal 98-107 [facility] Comment on above: Performed By: #### C MP, TSH #### [facility] [address] [place] [address] Dr. Cipriano Simon CO2 [Moles/Vol] 25.4 mmol/L Normal 21.0-32.0 [facility] Comment on above: Performed By: #### C MP, TSH #### [facility] [address] [place] [address] Dr. Cipriano Simon Creatinine [Mass/Vol] 0.91 mg/dL Normal 0.70-1.30 [facility] Comment on above: Performed By: #### C MP, TSH #### [facility] [address] [place] [address] Dr. Cipriano Simon EGFR-AF KOSOVAN >60 Normal >=60 [facility] Comment on above: Performed By: #### C MP, TSH #### [facility] [address] [place] [address] Dr. Cipriano Simon EGFR-NON AF KOSOVAN >60 Normal >=60 [facility] Comment on above: Performed By: #### C MP, TSH #### [facility] [address] [place] [address] Dr. Cipriano Simon Globulin (S) [Mass/Vol] 3.6 g/dL Normal [facility] Comment on above: Performed By: #### C MP, TSH #### [facility] [address] [place] [address] Dr. Cipriano Simon Glucose [Mass/Vol] 198 mg/dL Critically high 74-106 [facility] Comment on above: Performed By: #### C MP, TSH #### [facility] [address] [place] [address] Dr. Cipriano Simon Potassium [Moles/Vol] 3.8 mmol/L Normal 3.5-5.1 [facility] Comment on above: Performed By: #### C MP, TSH #### [facility] [address] [place] [address] Dr. Cipriano Simon Protein [Mass/Vol] 7.5 g/dL Normal 6.4-8.2 [facility] Comment on above: Performed By: #### C MP, TSH #### [facility] [address] [place] [address] Dr. Cipriano Simon Sodium [Moles/Vol] 140 mmol/L Normal 136-145 [facility] Comment on above: Performed By: #### C MP, TSH #### [facility] [address] [place] [address] Dr. Cipriano Simon Urea nitrogen [Mass/Vol] 13.0 mg/dL Normal 7.0-18.0 [facility] Comment on above: Performed By: #### C MP, TSH #### [facility] [address] [place] [address] Dr. Cipriano Simon Urea nitrogen/Creatinine [Mass ratio] 14.3 mg/mg Normal [facility] Comment on above: Performed By: #### C MP, TSH #### [facility] [address] [place] [address] Dr. Cipriano Simon VITAMIN B12on 12-21-2021 Cobalamin (Vitamin B12) [Mass/Vol] 647.0 pg/mL Normal 193.0-986.0 [facility] Comment on above: Performed By: #### C MP, TSH #### [facility] [address] [place] [address] Dr. Cipriano Simon Ambulatory Visit Summaryon 0 11-09-2021 Ambulatory Visit Summary RIC SANCHEZ :1960 Visit Date:11/09/2021 Ambulatory Visit Instructions Your Diagnosis Kidney stone Tests Performed Urnls Dip Stick Auto w/o Microscopy POC 45013 XR Abdomen 1 View -- Results Pending [...] [facility] [address] [place] [address]- Medications What How Much When Instructions Unchanged [...] Urnls Dip Stick Auto w/o Microscopy POC 69644 (11/09/2021) Bilirubin Urine Dipstick - Negative Blood Urine Dipstick - Negative Glucose Urine Dipstick - 3+ 1000 mg/dl Ketones Urine Dipstick - Trace - 5 mg/dl Leukocytes Urine Dipstick - Negative Nitrite Urine Dipstick - Negative Protein Urine Dipstick - Negative Specific [place] Urine Dipstick - 1.020 Urine Appearance Urine [...] usuall (more content not included)... Normal [facility] Patient Educationon 11-10-19 Patient Education Urology Kidney [...] these instructions at home: Medicines ? Take [id number] and prescription medicines only as told by [...] 11/14/2008 Document Revised: 10/15/2019 Document Reviewed: 10/15/2019 [employer] Patient Education ? 2019 [employer] [facility] Urology Office/Clinic Noteon 11-09-2021 Urology Office/Clinic Note [...] Urnls Dip Stick Auto w/o Microscopy POC 47415 Urnls Dip Stick Auto w/o Microscopy POC 90247 XR Abdomen 1 View XR Abdomen 1 View Follow-up With When Contact Information Elan Peterson MD, Lino Goodson, URO In 6 months 05/12/2022 [facility] [address] [place] [address]- Additional Instructions: w/kub Patient Education Kidney Stones, [id number]-Dwnv Grace Elizabeth personally scribed for Dr. Ansari [...] Hip replac (more content not included)... Normal [facility] Comment on above: Result Comment: Elec tronically Signed By: Lino Ansari Jr., MD\.br\Date and Time Signed: 11/09/21 09:52 EDT\.br\Electronically Co-Signed By: Grace Marin MA\.br\Date and Time Co-Signed: 11/09/21 09:47 EDT GLYCOHEMOGLOBIN A1Con 2021 ADA RECOMMENDATION ADA THERAPEUTIC TARG ET 6.0 - 7.0 ACTION SUGGESTED > 7.0 Normal [facility] Comment on above: Performed By: #### C MP, TSH #### [facility] [address] [address] [address] Cipriano Simon Glucose [Mass/Vol] 148 mg/dL Normal [facility] Comment on above: Performed By: #### C MP, TSH #### [facility] [address] [id number] Cipriano Simon HbA1c (Bld) [Mass fraction] 6.8 % Critically high <=6.0 [facility] Comment on above: Performed By: #### C MP, TSH #### [facility] [address] [place] [address] [address] Cipriano Simon Formson 04-08-2021 Forms [id number]#1.0 0CD:127 Normal [facility] Coding Summary.on 04-07-2021 Coding Summary. CD:[id number] Gh 0bWw+PGhlYWQ+DN6NZTAxZ 07tcIRbsY9ZO2vAVK6ATKZ TALOPYE9XVU6dyND7QKeuS 2VybiAv VcetxBSdVI48OSl4WKR7aK dcPOzjgV3lkAOuH5g4GkPk XB22eO57RKliEJKfKaD4Oz ZpbjsgbWFy D1nyLuPimHGsCtc+PHRhYm xlIHdpZHRoPScxMDAlJyBz qZkuMV7rAi8wAGAfNCFspI xhcHNlOiBj j3xbQPZyCXnhVS5gpWrbN3 CusQD7WHRoh6o5Uy68oEN+ RECpFHS5fQuhDMrhs959Ts Yjn6ihNOW5 uDXhEYehEMN1H12cp0R4AA WxPIGuNHV5nQV4bA3xcKyr rwjeT1UebGJzXnA9OSE0rU GxhS9fvRnv tuqioH3gUvy+E91CZG5VYK TPBY6FSsq9B2VpSjtezWX+ QX56MHHvKX86aZUqwIGqa0 ljfRf0TqYz YBUkFDM1xOilEWdpw9UnZF QqG47vlBQnk7A0FVNlgYcb lUAuDeIkfAZ3gN8wFRmhao qor6wqpwph Wgaol8ogls75hM90B94zJE zrNODuPKV4CEChUXAwbLuy ya3xqI5jTo7+EMfyb3hwy9 wogGf0LrTe XTPafzJpnGydLLO4i1RyVx 34K1PucNiga7LbGsb0zw83 lSVif9H4qHQ4GZwbFCRyxU 8pKCblHnJ5 PMHiGyAqcL25qAGuQTquJi 9uoIvseBxmCQ6yRAKfpxod BWRvoG0fTBUkoFAsiLckGW 4wNTBpbjtm w900JpJfNSN1BAVuiRNyT0 PrsQ9vRbYiQDRdSLNqK7It lXNhKFecO937IFjjChD7EQ VhrbQyZ7Md SMOgbRsrPqX2o2N0Zk2Zh3 NkkddqZKZ0WXcgWDTuXdO8 VxTvHzO5U6OjRez2FOVjcS wgXX5uD1Ia YMOjjecyqmqvsJT4TPHdTZ EzbG34lOXfWDzxYc3la9J6 w256GNUsQNFwjS01Yc2lzE ogMTBwdCBU yX1zggznb0ummwwfGbCxVT VvRIq9ATc3OWHeuAjsHpTh ZZY9WyA6SUR9fYVbgY7ozF ncwzaheA7m Oyc+K49ybI1jXZO6ALI1ob apMIYzwjIoWQ13EZ88P3Sg PjwvdGFibGU+PGRpdiBzdH xaCH8uMfSj w6bou0UoBXxpL4PqYVQkHM eeOik7KHKiEIC0oQY4jX6y YLKcBFgal6T2kGT6F4Uiem Ojbg5pt5cd PQInWJmfW99chVSoq5D6LJ OjmLD0IQXezCfpRuNtpI75 Oyc+XUXmvZzqg5DjUxexd3 brs1zpfCr5 CjLgHHNavxAbiQmaDDW7t9 LmGi80W19fURisABBaIUCm BIYaIZJkbYurjq4cdK5lNj 8+PGNvbCB3 kUI9nC5yZGDuNxQ1QNevT9 84TeNahDOuKggxx1jgo7cr eWi2BaUeOXKdxxSuhFotFT X5m6WpPh87 L54hFVnjWBZhWVJzEKSkLZ OftVqwaa0svT5tPo0+PC9j f8vpkj50aR54vXR+PHRkIH D6xUzjEPsr XVJuzC9uGIshBdW7TSJkZn QbrI06nOLdLZtkQr9yhKyw eNcdQD3pGIFhxphhr092Hp Flt7syNQUk nQHmWYwjMKJ5Z96ea8M7JV HjJVIgVQX2hYW9tK8tjUal bjogbGVmdDsgdmVydGljYW tkBMghN026 IHRvcDsnPlBhdGllbnQgTm YfTHh7M1QpHql9KMZylQuv XY2ltNMdKWueVx8ngNfpgZ paIV3vAFLe romeb968CwTkr3pnZMEdsY KoCCtfERE3R07vn7W6XYIf DLZkTPW8zTE3nN7nuAedoz ogbGVmdDsg fcKcyUydLWizCUigA458RN RvcDsnPkJpcnRoIERhdGU6 QZ95US14hBJav5V3kMN5I9 BhZGRpbmct psrfbWJ8UJPsVSBfyD02Cx 9fdFswNi9wBYOvYET9DEPj gMNdE3HalH6aIcJwGGQsWZ VtJ5XwoHPs MNjqW266QSjcVhH8RKNuws CuS6IaKPMdoMtxYpK2t4K5 Qf4CA8V4KT21VL67bXVff5 U1yGF4M4Nv NERhbousradvlGN8AKHgWX IcdG68Xy0yoRehQm0xXTAy VIY6ROLhmJHiS8EmaF7sWe AjMDAwMDAw N3ZvsHVyZTizO876ROrjCl V3OPAyuhOhU4VvCQHxvAyv GlZ0u3Z8Rs2UNGi2GV74IK 66fKEch7L9 jTF3S8ToUJHikxsagkefuK Z2KJBzZTIdkV48Ck2luRsz Wa1tIHOrQPS8STRkeNHeE7 XwiD3iOzVz NVScMDCvX8KgsEZhIOzoD4 88IBdqTeM1TAJnisIpB6Tm KGRzsWpdYxA9r9B3Yq6FKJ QuYK88BZU6 gUS3EW79JB13Y9MiXzspuF FibGU+PHRhYmxlIHdpZHRo ATkrEQKmFdEzzOwbIL2xOa 9yZGVyLWNv yFhfxBAmRrTvr1evASZqNP mpSU4bkIliB7FybNS6KGUx b0w6Vj20G44bL5NhuVF+PG UmbGC4rVQ4 oJ3jQmUrMcI9YJbvO487Dt KfbNYqDbpnv7epl2eptYu2 XkY3MDIxmdLrnQboBVW7a8 EwGw27C71s IHdpZHRoPSIxNSUiIHZhbG xkvo0lgQ9bDw4+PGNvbCB3 rNZ1kD3zQcLdOqO4UKviG0 49InRvcCIv Csaaz8tvb3bwaXz5YgBlQW HmukRblItjQZO8s7IoXh25 T6WilBlsl3QgWat1jt50mI Cnj9J3hVU7 L8CgCDRyjefysWDvfHwlSQ 9nJMZguezoMFYdhN9pAIOe F3l4RzOkTaI5KTjhH1Nwwb N4OCZreZKr VXauVRS5Z28ci1O5JSEeGH CzMPH5vEL6vR2vcVokzkaf bGVmdDsgdmVydGljYWwtYW ncI048TQRx xLjrNGPweB6sIUHwnLRytK auZF3lXIMeztakDn5WVN5f GUfJKEsPVnw1B5ZgXpp4OV SvdCiwMZ0k gFLuQCyhUt6joOyevWztLR 9cTFEupccjJRTtkB0tPLNf kISrgYanPZ6jYPHubpehq0 92ZoMxGDG9 ATHqjNLmZ1GjsX4iFzJeZY CoNQSuD6LdbVKgRQlzS036 XUqtZzP8LNKrzjOpE4PpFS FsaWduOiB0 p7H8Lz7kJb6mKe5dMPKgME 44BZ18kTFgb1D5cKY9R1Iz GWJdpzztstkiwGC9OOKmEM YbnE43uZTj JWmkUg9pv0R1m119YDUxVM PmcB12Lq7hsBweDAXwxPQS yH7eostrc5inhbjuXcDpYS MmQBw1JHb4 LSPkeUwyScFjTBV1VnM6WT O5vHPigA3vsXcxfjuinJ7x Oyc+QCzzANFhloD8D7IoSc k9NPJlqCnw TS9ejIQgJPrvAl4jmLqfhM jqYO9uVVRbibzeAQMnuI0p DMJjjLLsgPbqBV2dWJYydt qlm335CgCc UAR9YURvnTTxK6ZedQ4bLx TdODQfEGReT6IdyKMwXIyz S999UWypHqT3IBVxjoInG3 FsLWFsaWdu UbM8t2T5Eg7DMJdfAE59RG 49sJHej2H7wGA5O1JqEXDp kqzouejhjJE5NQSaEWNgjS 47cGFkZGlu Ws1pr8A9g361HEUcLKWteI 54We2hhUhxWQGapVLKzQ4t jlwmg2nvjxvfVmYvUVYuGN p1PPv3KRDw tObcMiCwQQB2NfP7UPA9zH MdhZ3lgIkjpmjukU7nEvf+ G6J4bAK3fEScwNdmoSY+PC 16ih09T8Kb WfciKhw8DQDuCXB3oSL0mJ 5tHLKxNTswx2L1uTJ6F0Jr vpDzkn6wz5qfZCDxZPuuA7 7sfWPtj0T9 ZSVjkAH4MEAmpKokLaWmsT 93Oyc+EHNkzYunb7OyMybb m5dcs8sumJc2WnLeXZXmjh FsaWduPSJ0 b2YuQr94A26rSBmoFLVpOY VtYOVjJOTldUklpi1xrI2h Ii8+IYGxjKZ8yXZ4rU9fEc HaMpF0GUtf L147FcMxsTTlTyqsg6fql5 lilOc7IaAvAPTjlhSwjIqt MCE0j5GpSd47A8AjyWkwt8 JcKwi9fa96 oVBpv8B4aGI2V6MlMOXjdo kubIHppXdlZU8lFDEqpmzc RHTjzL9yDMKhM3l2WqXbEx B0RXffR2Kg ezC6KHMhgNKtDUPwwPYDvO 8zjyywc4pfjhnpOoThYEAg JTw6FZf3UVQniZzvYiKdHD E3PlU2XJK8 wKTwoE1pnGguwadsqL9qEl c+VEy6m4mlbBNjMC8wrFL8 BH21AZ24nGXlh7O5eLT7P4 BhZGRpbmct mhaoiXI6DVOmKLGpdS49Gt 3ocYhqHe9bUGFjUZX1KETc aWVtP4CvdD4jDgBvPJPtDO HcE1AunGJb QTauN367ZGhpNuJ7WTQynj BpM2SjWXCqwBefCrS0u7Q9 Du0VNG12XC16BN90fAThv0 U2cUX3O1Yg QTYjyeuqjurinHV7JVBnMI SppH42Wg3hvOxqHs1bVLVp UMS8KEXteCNxC2MveE4dWf AjMDAwMDAw S2DljFNkQNhkR427SMdwVs F8LVUsvuWrZ0FaYAEicFlz SjB6m7N6Kh6NYc60IJ19BL 62lFOlx0M8 cAI6Y4UyUIDcdbesexqzlZ C3XLWfXSItbL40Me2bdGfg Yo3rCQJpOTH2YNAexEEmZ7 VxuJ9gDsJd GBJfLSVgF1QegYUlRWqmG5 12WYzfZmF4DVNgmvCyF0Vr ODQtpLebPmU7t0F7Il9TAR yygqp7B7Qa PjwvdHI+SA33KZOpTM86xA TkiAEau0ieuNj4ZfFgUIJh EPU7uTcmSCdzz0XkTCFxZ5 3qpVVfa6G1 IGNv (more content not included)... [facility] Consent for Procedure/Surger yon 04-06-2021 Consent for Procedure/Surgery [id number]#1. 00CD:127 [facility] IntraOperative Documentson 1 IntraOperative Documents [id number]#1. 00CD:127 [facility] Pre-Certification Formon Pre-Certification Form [id number]#1.0 0CD:127 [facility] Coding Summary.on 04-02-2021 Coding Summary. CD:[id number] Gh 0bWw+PGhlYWQ+PL9WDYNeT 57pbCRtcY7LH3fSFY4GQXL PZKJETM6EYC9xbWH6PElrJ 2VybiAv MbmjxRBnUO15DSk0EFX1oO jeCTddjO3yqRDpR9g8DoYw KC15aF26XTauRDZhNxM3Ow ZpbjsgbWFy D1hfFhQznEAqZxa+PHRhYm xlIHdpZHRoPScxMDAlJyBz tEgcDR0pPl0nSODbXQHfqV xhcHNlOiBj m4adTQTtQQirLC2tlXfyQ6 KshNX7DEFzn9m1Di05pNB+ IIPzSXY8nRjbHPbfr822Vq Fll9jsFHF1 mJTiJCkkLWT1U28aq9F3PW EjPHFsQLA6mBN6dQ1fxMty lfroK6OveZRqAnZ7PBB1yF XevV2fdOrb czjuaS1xIyg+I75BAL9RLG QARM3YRlb4Q6ItXsmbbHK+ SC70CPFnAY02nYJmvIDiu5 fhmSx4QxKw ZDXpFOJ1tYxgGXwwu1BwVE LtQ91diYSki4H3BVDveUlj zKFyBiMqjRM9mW8vODbbus gyi8mmbzdv Ampbw8hiwx64wA14R04oGD smUJKxUKH5FIUtGNJroZek dj1vlX0gDr0+MIuop6rvm8 vtcQr6BqKt SRPktaTgtHcgZBP6h4TaSx 87F8BcvLhou8VdTrf6sl29 vSVmc0D2wEF4KFdtZTXudK 1bCKzfAsC9 DKZjPkTijI62eMSuCXxpSc 1gbWkuzGoeSV1uBYUdiprd FBLnkT8hQGYidPTjiVynLN 4wNTBpbjtm g508NoUsSMX9DYBgnGNhR7 PizA4yOhBqAGCtZKCfI4Fe eGZbKJtrO417RLenOsB7EM LvpgMjA4Nl EXShjXalUiQ7h4I3Gk6Mi4 DndmwtKEU7BVjjIWKlYcHf DiLaEmH9C9QvNnw7GYIpmY fjFG5sQ8Aj YVZobinsihyhoTR5XYFhLQ RmpL54tMXaXIvvWs7qp3E6 w977MDDxUPSlgG96Ve8sfT ogMTBwdCBU jL9skdwab3myzwspKpXaSM EyMJv2OUu1BRXooVuzSlYr XWG3DzY3CEQ9eIQvhE4qzA mdgfpkfE2g Oyc+D50auK1lGJD9JLQ9cc onIJWtkmZmPX47WS87B5Af PjwvdGFibGU+PGRpdiBzdH yrDS2sGuGa e2oqo5PwYMypS9PuMUGsAJ hiUof6YEUtNGI6fHA9yB6v ZWWxQJcnc9T5iMY2K9Utvb Spvc9de1qx AWWoJZoqS37qzSFdx0P9PO SxtIO4GDOddSlwUjEfsW06 Oyc+DSGqaMhsg7GnJhfmo5 isy0anlTy0 MqNkWYQltbKalSakBPI6x7 PeJi01X13ySKjhIWKoLVPo KFLwVRNklZmxwn7zwX9pBp 8+PGNvbCB3 sFP4aQ3oCWGoRqC8FEzfH0 51ZiSgyHZtRtcwb4cvh2hr uOr0XoMeHQBqciIrqLsmXY T4k0ThIx66 N00aCFacCMUeFHCaELOkAR WrePteaw0koH7mSq8+PC9j l4gdop84lG43bVE+PHRkIH J5yNjxEAsi TRMrmH7nKQloChO1WYTuKz RysC83aYRlLJfvBx6gxNiz qMdmJJ9vWQDdidvlv538Ak Qoq3bzHAUu iTTyKCdjQXV1T73mk2S6UW NhPWUdENR1fCH8iQ2cxSym bjogbGVmdDsgdmVydGljYW qeIRxqP013 IHRvcDsnPlBhdGllbnQgTm SsYNa9S1GtChr2FLJuvWzp YJ4dmWBoQIhxQu5orOrrjU kvCL8wEREm khoaq297PnXgf1mmEUVnlM IuORibHPZ0Q41kl0H1KMDq OLHoGFV0jEB4iT7zxUuruu ogbGVmdDsg unDdiNryJBdpAIwkJ107GF RvcDsnPkJpcnRoIERhdGU6 UG70TQ66oPBgh6M7kCD1O6 BhZGRpbmct nizehXA1QRDjRKCncX43Vh 9rdUwdZn3qYCRnRPS7EHNy oFAsU9RwhK1uAfNzFLOlIB YaW4DnoHGh MNtpD561TOiaYnS0VTPgbv FpT0DqORNtiYmbRnN1a3Q5 Ex6CZ9F9IO82OJ07wWZkd1 O4tZI8N9Vr JZLpszdtlhbjqLD9LPDwQG AsyV02Tj8dfYdaJl7sTITf DWH0RDZuzTBzW3WaqI5xIj AjMDAwMDAw P1BvrTEuLDuzJ330AUqdWj M4SBKlpbRiH4FcCDQorVyf QuT0f6G3Cu9UPOe6NZ82ME 62dWUsy5R6 fSM7M4AoCUPdkgoiieyakH E1CMEuJIUzjQ06Bl2lkGhd Ca7jDUApQGX4EKXwqZRaT4 JcmW1uFkUo HDCkJSAhS4NefBKmCJgsW7 75OKwkGwP5QCDbsdEjG3Zo HDUddPjzSdN9h4P9Hi9IZE LbQG21EYL2 cTL2NR15SH05T6EjXwjtdW FibGU+PHRhYmxlIHdpZHRo RDsjLOFqAtWhaZwfWZ8pAo 9yZGVyLWNv wCxmvOIqHlKjz7tnAAVjOT wcYY0hkSrfR1QdcVE9WZOl j5t1Zv56A29gZ7DijDA+PG HovAM9fVE6 eW5dMvPbMoM0YYgqZ842Ja PmeRSwLjkff4ogq9cmzGr8 DvU7KJVsqiQacDuhAHY2q6 JrTo12U94j IHdpZHRoPSIxNSUiIHZhbG joji8ioU2mCm0+PGNvbCB3 rTI1bR5xObNyBeL4FZwxJ3 49InRvcCIv Qwgvu0fvr8lrmGz8NgUfWD EljkJosWosRHJ2j6XbRn74 K4RmdHazi4QrArs6vr03eT Jof9C5rOL0 X4KkWFNctmquzAPrjLiuSW 8tVABjkiwtOUHeiG0sESDb F2b5XkZpPeT8DHutY3Lbun V3WTYgsEQe TTytYWK3X89ox2W9FQAeOC FkNCQ1iLC4pL3tdBsbsmdu bGVmdDsgdmVydGljYWwtYW inB920FWWy zUetVKMlsW3pITKtjMVxbM dgUZ8kEDNcwgynPd5QVX1p HLjJOVhZVfe9V3EeCbw6QL GreLktYF5e dHUnXUibVj5irQijiCtpGM 2oSZYzfhlkANCocB1yMQVs aIGnvOrlHQ9aZWCzpdwuc1 64JaNgVJX1 LWExbRQsF7JjgN7tJmVhIB NrBLHbS9DmrYVoORxeV611 KZqeWeA9DHXdxaIgO7ViTW FsaWduOiB0 f2L4Xt4lMk5dCn4gCLAvKP 46FN17mWYio8D6cVD4Q5Tj KTOrcczhplhiqPE7QIIhZS LolW16hOXv EBuzMm7fo9J3b705ZBExLZ WgzW11Pc1diZjwEWFriEUO cL0cckmgu9wotxdbDpJvCV UqMKg2LUc0 TCWwcZkdLzQiHBD4PpE3VK J4xCFxuY2vjLilqdmduZ7e Oyc+GFmvPFQvfnM8Y7FlWj n1KBDojLve VP5sdKGqNSccOh3kgVmjyI ytDJ5uZPDwinmhMANgaN9z JKCcpKKnfLadAD5aRRXjly hmf479CnVh MDR2HMPkvXNfL0TdzY9aZw EwRGWlCCZzB6EmiNTuWQuz Q293HWhxXvL0GGEcavWaP0 FsLWFsaWdu PkA6j3I4Qa1ROZgfVQ51KW 17sXHre8C4aXA4C7TdTNRy vgxztgodyDW9SNDdZXIiqB 47cGFkZGlu Lk0py9D4d176EKXrNNRtiG 29Ie4vxVegYFJueWCIyW2r xapxi4mopbxySnDzKQHxFR a7HAo4HPZj cKxaBuFrUPD0CwI6TKC4gN BsvR2xaAnbisefcM7pKpz+ H2T8qXF3eTCflRfqbKY+PC 88dp85Q0Vt MfngMgm6CIHgAEP6uUF0jC 3aFMJcWGvio6B1qOW9Q9Ov vwMrxx0qd5swLLWfVJahE2 5yyREdv9F3 IVJkpJO2QBBcdHfwLsFcbU 93Oyc+SWPlyVmvm1EqUzcf o3lkh9oslAi1CzIjNMXbqv FsaWduPSJ0 c6DlRi90L64jPAlpXPIdFQ RhZLCeVUGjsZkngt3qpH2u Ii8+PTIleEM1tNH9kW6iZq AdKoV9UIoe C411UbQsaKZsKkjhc0wjg7 tyaFm9HgClFBZpiiCqtRly SDO6h9JtBe66B2ZpwQutu4 UkHpi0lu54 hYNao4Z3wGF6E9BbZDDngq imzIGumGbpGP9iHNUuqqqs HNLonY9mAFDsO8w0NvPkXl N5RCxdV7Mx esT1VDLvhTAjXDGxeKIOjT 8vdnnem0fnwmsuDsRpECEz QOk5LHh3PQZkeOosHkKlBN X8RuY0UHO5 iPYdxM3glZxqfasraE2zTo c+GLu1c7xynHNhNW9lgYV7 PZ40CL75uCWsd4I2qXD9J9 BhZGRpbmct voamjPQ0JHMcZDAfxY87Ln 4khSrqVq3oWOZrLBG4ASSk jVVsI7ChqS3tHsKhAZUaBH CcY5QdoAWe RLtxJ280FAfhXmJ3ORRtzv QtR9SdCYYnaBegDrJ7f4T3 Qs7COK72SO96PG23yZHdv4 V9qTA1V5Eh HCArjrlsjdqixQE2NRXtES FmiJ74Td0jrPyqHp6qLALh ORS2YYNmzEIcZ8AgjK2dEq AjMDAwMDAw A7McpAXnAJeaV720WVmeHt P9ESEnnrMtC5RfGQVeiUrq NuX9g8R5Iq2QKm13EM98AW 88mQCqt4N1 tKS2K5GcTHKosemabppubJ X1VCAlKMBaaL26Sd2qfXhc Os2iMQHeYVN3JDGahCQaK7 ZbwY1pDuMk EHRuLEOoI0HwuDRaMKanY7 71QSgbOrT6MNFibnNkW9Ho WCNllXctHlO5u6E7Ya5QWU hegzx5R3Pc PjwvdHI+UE13KUXjAC79cO GcnFZwt2umkRo7NeQhXJGr CFI6mJgkVWxtj5BgUMYaY5 8kfTJrk4N0 IGNv (more content not included)... Normal [facility] Consent for Treatmenton 10-2 Consent for Treatment [id number]#1.0 0CD:127 Normal [facility] IntraOperative Documentson 1 IntraOperative Documents [id number]#1.0 0CD:127 [facility] Main OR Intraoperative Recor don 04-01-2021 Main OR Intraoperative Record IntraOp Document Type FTURO Summary Primary Physician: Lino Ansari Jr., MD Finalized Date/Time: 04/01/21 14:49:37 Pt. Name: RIC SANCHEZ/Sex: 1960 Male Med Rec #: [id number] Physician: Lino Ansari Jr., MD Financial #: [id number] Pt. Type: O Room/Bed: / Admit/Disch: 04/01/21 14:14:58 - Institution: Case Times FTURO Entry 1 Patient Times In Room 04/01/21 14:35:00 Out Room 04/01/21 14:48:00 Procedure Times Start 04/01/21 14:41:00 Stop 04/01/21 14:44:00 Anesthesia Times Last Modified By: Stew BAUM, Rissa Lawson 04/01/21 14:48:36 Case Attendance FTURO Entry 1 Entry 2 Entry 3 Case Attendee Elan Peterson MD, Lino Mathias RN, Rissa Bullock [facility] Role Performed Surgeon - Primary Rag Sorter And Cutter - Primary Scrub - Primary Time In [...] By: Rissa Mathias RN 04/01/21 14:49 Normal [facility] Main OR Intraoperative Record IntraOp Document Type FT Summary Primary Physician: Lino Ansari Jr., MD Finalized Date/Time: 04/01/21 10:59:15 Pt. Name: RIC SANCHEZ/Sex: 1960 Male Med Rec #: [id number] Physician: Lino Ansari Jr., MD Financial #: [id number] Pt. Type: A Room/Bed: Admit/Disch: 03/25/21 11:46:55 [...] Anesthesiologist Surgeon - Primary Scrub - Primary Chucking Machine Set Up Operator Time In 03/25/21 14:43:00 03/25/21 14:43:00 [...] Nadia Dixon RN, Alba Ibarra Role Performed Rag Sorter And Cutter - Primary Flame Brazing Machine Operator Concrete Stone Fabricator Time In 03/25/21 14:43:00 03/25/21 14:43:00 03/25/21 [...] Text: Im (more content not included)... Normal [facility] Main OR Preoperative Recordo n 04-01-2021 Main OR Preoperative Record Holding Area Document Type FTURO Summary Primary Physician: Lino Ansari Jr., MD Finalized Date/Time: 04/01/21 14:40:21 Pt. Name: LAURARIC./Sex: 1960 Male Med Rec #: [id number] Physician: Lino Ansari Jr., MD Financial #: [id number] Pt. Type: O Room/Bed: / Admit/Disch: 04/01/21 14:14:58 - Institution: Case Times Holding FTURO Pre-Care Text: Verifies consent for planned procedure, identifies individual values and wishes concerning care, includes family members in perioperative teaching Secures patient's records' belongings, and valuables, maintains patient's dignity and privacy, and maintains patient confidentiality Entry 1 In Holding 04/01/21 14:19:00 Outcomes Met? Yes Last Modified By: cJ Pro LPN 04/01/21 14:19:46 Post-Care Text: The [...] 14:24 Rissa Mathias RN 04/01/21 14:40 Normal [facility] Operative Reporton Operative Report Patient: MARTÍNEZ [...] well and was subsequently discharged home. Normal [facility] Comment on above: Result Comment: Elec tronically Signed By: Lino Ansari Jr., MD\.br\Date and Time Signed: 04/01/21 14:48 EDT Calculus Analysison 03-31-20 Calcium oxalate dihydrate Infrared spectroscopy (Stone) [Mass fraction] 20 % Invalid Interpretation Code [facility] Comment on above: Performed By: #### 1 [id number] ####[facility] [address] [place] [address] Calcium oxalate monohydrate (Stone) [Mass fraction] 80 % Invalid Interpretation Code [facility] Comment on above: Performed By: #### 1 [id number] ####[facility] [address] [facility] [place] [address] Color (Stone) Brown Invalid Interpretation Code [facility] Comment on above: Performed By: #### 1 [id number] ####[facility] [address] [facility] [place] [address] Composition Comment Invalid Interpretation Code [facility] Comment on above: Result Comment: Perc entage (Represents the % composition) Performed By: #### 1 [id number] ####[facility] [address] [facility] [place] [address] Disclaimer: Comment Invalid Interpretation Code [facility] Comment on above: Result Comment: This test was developed and its performance characteristics determined by [employer]. It has not been cleared or approved by the Food and Drug Administration. Performed at: [facility] Stone Analysis [address] [place] [address] [place], [place] [id number] MD Maria Elena Trotter Performed By: #### 1 [id number] ####[facility] [address] [facility] [place] [address] Laboratory comment Gordo (Report) Comment Invalid Interpretation Code [facility] Comment on above: Result Comment: Omer garay questions regarding Calculi Analysis contact [employer] at: [phone]. Performed By: #### 1 [id number] ####[facility] [address] [facility] [place] [address] Please Note: Comment Invalid Interpretation Code [facility] Comment on above: Result Comment: Calc kat report will follow via computer, mail or learning support assistant delivery. Performed By: #### 1 [id number] ####[facility] [address] [facility] [place] [address] Size (Stone) [Entitic vol] 2x3 Invalid Interpretation Code [facility] Comment on above: Result Comment: Mult iple pieces received. Dimensions of the largest piece reported. Performed By: #### 1 [id number] ####[facility] [address] [facility] [place] [address] Specimen source subject Nom Comment Invalid Interpretation Code [facility] Comment on above: Result Comment: Not provided Performed By: #### 1 [id number] ####[facility] [address] [place] [address] Stone Photo Comment Invalid Interpretation Code [facility] Comment on above: Result Comment: Phot ograph will follow under a separate cover Performed By: #### 1 [id number] ####[facility] [address] [place] [address] Weight (Stone) 14 mg Invalid Interpretation Code [facility] Comment on above: Performed By: #### 1 [id number] ####[facility] [address] [place] [address] Formson 03-31-2021 Forms [id number]#1.0 0CD:127 Normal [facility] H&P Updateon 03-31-2021 H&P Update [id number]#1.00 CD:127 Normal [facility] Coding Summary.on 03-30-2021 Coding Summary. CD:[id number] Gh 0bWw+PGhlYWQ+GB6DUFYbK 45pvGBgzZ7PY2vVBO5TOIG UBLRVLI2FBU7qyTD0YVjiD 2VybiAv EpzcdQFkVT77HAp5HCQ3oR zfKHzilZ0kjJIcW9d0DqKf QI58rB24MYysOEGeHcX9Bb ZpbjsgbWFy D0skAaItoICaUgi+PHRhYm xlIHdpZHRoPScxMDAlJyBz hEroMN5zVe4aJKRiGZJzuB xhcHNlOiBj v4wcXPJjOAgyZM8abUxlZ7 IvtCZ4PENjo2v2Jj79uIF+ VKIzEFT9rEkpZUbbl323Tp Kka8gmCCB8 fJElVShpZBI4Q75gs6I1BO RvTJBkFRV4jMI4tH8sdHcw indyZ4FjfLAdJaA1AGT8fS UemI8woCru rkvidA0uCrt+W48EUR0TUP KLIV5GCga9H5RaIawgpVY+ YL95FIMeZB22yMQktNHoz1 tkkHo6FcSn HZKfZNR8aEzmZHpek8QvQI LwP43ikLFuk9S3PYJvlQpz eLXbIeEcpZN5tP1bOFcalo mrq8maexxq Rykql3wili24pM02Y38cOU rhLKDdQQS8FHEwMOKzgMao al7xuV8eLi9+RZeod0edj9 hxtPh1PgWz UMLscfXzwPguINO2a0MnTx 71J0WlrDhpd1BfEvj6cx10 xAPwt6L7yYZ7DKowBOCgpM 1iQNkfAkP1 PELsCqNgxE11wXNtSCruBu 6auZyjlRguKK9jKOJyzlxa XEBteK4tPMXzzXDymOmuOP 4wNTBpbjtm s754ZjRrMCA8ZJGvzHBbN6 JuvN8vAcOdACZgBRMxZ6Ac aOQtNKvbR276WJbrChK9MV GvnwIqF1Eq SKKguMwuHvM6u8U8Nl6Gp1 HbzqxbQXL1RGvaCHRrGfK5 YvXaRvJ0X2UgVuw6KIPykC ewRX1zZ8Wk EKQyvzbukneohQP3MCXmIB FbtL58qWWlSAukHw9xh4V7 b433INIeFVOniY40Ei5enK ogMTBwdCBU lN0iqthsl0vxnxjaPzQkFS FzBLb6KDh5UCCwnDkdLuCs DED5XsP3WQT8vPXmdU4swY fdewozeM7j Oyc+Q47csJ4vBGH3GJV3eb ytQBRbbsUwJE54NK37X5Lm PjwvdGFibGU+PGRpdiBzdH ugMC2kAcBp o9tjh0IlEKaoV7LyPXWfWH hxAbh5EIDjCTJ1mIE0dO1m AGHiRZwte3X4sWB6K6Edtd Asvk8ju0ki RINmEShgU62owSDde9O1PK HqnSJ2QGKndNxyZlOqaQ24 Oyc+RLZlfCssf9SiWqenp4 tbw2durGg3 JaEuLHSrvnWjxFphLVE9y1 HcHh40W77pOTkrKSQhOWJm LZJoYTAdaEempi2lnM7mLr 8+PGNvbCB3 cXP5mB8bFXPxAkF9WHxkV4 04QzBulBVlRyrws0ytm9gk jNg8RbPzPGJqhfQhyMxbAW B1r3YuLs06 C13hEOueOGYtSAXaUIAvPN DvlJtmrd9ehY8xGp5+PC9j c7brpi41dN77aEW+PHRkIH P9kWjvHYnp CWXbeL0nFYbeNoX8BRSoPd XilF74nVZyQHagAa8ffBjk lCwiBL7hAOBashhat006Lu Fmi7fcGZJy vTUtGKiaLHG2N77pn4V6LO FiKLWwICR0vIN6bL4ufJfa bjogbGVmdDsgdmVydGljYW taYTynH445 IHRvcDsnPlBhdGllbnQgTm OyWQl2X3IfBfz5SMGefEix YA8grHYrOHjoFl3ooErtrK cnOH2fIJIa hmldt815VtZep1bsXFWosP DxCIpdFIN6V43fh8U2IGLn UIMzXFA0tYO7aY2fpRbixo ogbGVmdDsg ejRhkOfjUZijQIchU175OS RvcDsnPkJpcnRoIERhdGU6 QJ50GG54rMZoj6G8nRM7J7 BhZGRpbmct llgvmSA5ZWAbLEJdgM40Bm 2fwOobWg0bJNKfOME6CZNi qVJlU8EfxY9tGeDmWQUbIV NzL1PpqGQs MVwlG267QJkpSzU9CZXeha SxA0YuXTOphAdwXsB5i9F7 Wx6FX4C0KD64CP26fMQei1 X6mFR1H9Qk DCRorjxdaswllIN7VDFjNZ VocT09St6fqGhaKb0hARVk MHS8ZTFqxABbX9YipX3pVz AjMDAwMDAw W0GvsLYiTYbnC228DYkiIg G4WAGzpjAbD2FwCZSmaHfa BiM4e0U6Wb8DTTi0VX71NQ 60tVOke9J6 bXR0Z1ObHKFhzwsbeamhlC Y8LHLnCCSoxD58Mz7spVnq Hz0xDKNeXMF8MXWjoPIfX4 XnnV2cAdNd KAWzRMMwU3HqcRPfFYnmP8 17COoqKxV4PPDcgwJzU1Hd UWQxqGzaTbR3n7B0Ay3ONU DeHL09TYN0 kOU6NI46VL67Q9LjEfbciA FibGU+PHRhYmxlIHdpZHRo BNjfOYIdTwGknFomHI1eVb 9yZGVyLWNv tKhejANkZxJle7gdVGIvOF hqSB2tyNxcN0VrdIT8NPDk e2c7Oi45X58eM9OerXN+PG QrhLA1gJH2 jP7sWkQsLcV1TBeiY042Pj OehOYuAllph8kvn7jhoQh8 JrK6LZKhsdChbNwpDBZ2k2 GtAd70Y83k IHdpZHRoPSIxNSUiIHZhbG gwou9auM5yAl8+PGNvbCB3 nDZ8wI1kZtJoZoT5AAzoS2 49InRvcCIv Bfkpo3cuq2ynfUv8DvUzTE XpoyCzdQjnDDX7b8BaNn70 P5VzfNkwa4AjNye2ov57oW Tks9C4vCZ8 U1QuGQYhuobriOBwkMetRO 2tORUnmtjvAOKkbY9tBNDx T3o6DiObCiZ7QVhlL6Uywl I5GYOvfUIg VZndXRO0F33fa0R0XUZyDM ZhSEE0vTJ7yN2onYhgmmgk bGVmdDsgdmVydGljYWwtYW bkO907QICj kDmlNFSwsP4gEPDyaGJyfR swVY4fVBTawjwtHi1EIL1u KEwYXIvYCnr1N1XtAih0HK AyyTeePB5x qSMkFIswNa1jxIycwHbbWI 3fPEOdymkbKWQgcU3xZDIx eBDtrAjiPE7zMVJqzzorc1 67YpQvVZF9 TAQhuMCgA2LozZ4bFkLiQX UhUTVpN0RadEJxQBdsF213 DHfoEfJ7LDFjqiFbE7MlIY FsaWduOiB0 d1P3Ak3iDm3wIl0vONFcVV 66GA05bUPty2J8lBE9F2Xd PKMnroqxnkmnwSX3TNPcPL WjiE71jGDs AEipEj8xo8R9f154EKBlPE ZhhM41Rm4aeBcoQSBniFSJ cS0dzybzs1njrumwRiXnEP AaNKu4VVv9 XBUxoDyjUeTdUTO3QdY9RG P8xLSsqB3rpIsqsszepU2m Oyc+HQdgWTQjuxW0E5OuLv q6IHFmgKpu NC3zbZVoORjtBf8yhEvbjT fiOD5pHMRdgztcGMQslY9k UZXpgVWhkUbdIG2pQUYqux auh522JrBt MDV5NLGrqXFmF9PyfW0xZg OaGKLnTROuD7ZtqNLwEHqv A783BPzcPhW8JAMrsrSyI0 FsLWFsaWdu FqW7m5F6Uf2GGXciNU53SS 67mGNfo9E6vUU8Q8XaXPKs iqjqhmrbpIM9UEMhHXOimZ 47cGFkZGlu Pj1fp8X2x809SNLdZWItxV 81Jn5kpXyeZISarEFJpD9a szwtw4swujaiMiWzAIXwWZ z0TSx0CPXs jFskPmBhQAJ7FzS3HVX8kX MyjE8mrDnqpmsjtG1lTti+ FN4rcXbcrP4zfQ7NND1uPL RheSBTdXJn KVK5VQ52ZO72Z5QvWdwnvR FibGU+PHRhYmxlIHdpZHRo VAutEYNoLuKlsNofNS0eCh 9yZGVyLWNv vAkvxLDyUlHlr7llNCWtDH jbST3vpMndL4XbmTB1JXPi y0p1Qz01M05bC5FfgEA+PG PziTQ7zML1 fX9rHkXcIuV8TDtbE593Ys YnjHUyYnqrd2fmj9omyLt5 YgXxYLXeagGwfBtyXJO6z9 GjGm76I08v IHdpZHRoPSIyMCUiIHZhbG biqw3gnP2oHi9+PGNvbCB3 hOX6aL2jXpGxRwP4OTouS1 49InRvcCIv VlfeV92oH3IvhKN+PHRyPj m0USKtlWhbHL6fcTAzGSua Hr5iMWQ2CvKnOcZuPRenC1 BhZGRpbmct tqmaxTP7IXKvLSTvjR06Xo 7ixUnlCj1hDNObKMH7VQYp aOZqL9BgzG3xAkJyYCZjPB DmE8NniUGo QKkaN421YVpqQfV1APPyem WdH6AkABGqyHiuZaO6e6G9 Kf9NmQktsLJwWB2nJsAvIK y9G1SiYwp1 CJWayBvtWA4npGXjWTmyQt 1kdTrdxRdhIA2uJVRcvmeh d475DeIxa5ocUNVheWDgVD oxOCP6I39b b3K5UNOmHLWrFFT7pWL9dI 1hbGlnbjogbGVmdDsgdmVy bBqaFJvbGEziE669UPHnlK snPkZJTjo8 O6YzQjk6EAOumZxsSV6nuE OqCSjrOr4toIwbgVudXM8t ZRRvqausu090ScHtu5bnFT EwcHQgVGlt EGR6U46eu1G9LTMgETGfWL R9rWW9mZ1aaQfmkxsmdPMl dDsgdmVydGljYWwtYWxpZ2 46IHRvcDsn Oc1BEww8B8KjVpy4NPHliP kgSJ8atMGjKOjnBw0ftXwz mTkiYL5vRDDznroeo386Sb Pth8jtUCOz fLBiRAvwBOW2G87kf4T3LU PmLOItIII4tDE7eA9cxAdk bjogbGVmdDsgdmVydGljYW mhKRhuD947 IHRvcDsnPlBheWVyOjwvdG Q+CR00de81V3LpDpzpRvg1 XOPcPWI5jKJ6qL1mKZHwAO vqv9A9iFE8 J2Jv (more content not included)... Normal [facility] Postoperative Documentson Postoperative Documents [id number]#1. 00CD:127 [facility] Pre-Certification Formon Pre-Certification Form [id number]#1.0 0CD:127 [facility] Progress Note-Physicianon Progress Note-Physician Patient: RIC SANCHEZ Age: 60 years Sex: Male : 1960 Associated Diagnoses: None Author: Deniz Chan MD Postoperative Information Post Operative Note: Post Anesthesia Care Unit. Anesthetic utilized: General. Health Status Allergies: Allergic Reactions (All) Severity Not Documented Baclofen- Unknown. Celecoxib- Unknown. Iodine- Unknown. Problem list: All Problems Anxiety / SNOMED CT 52466408 / Confirmed Physical Examination Intake and Output adequate hydration Measurements from flowsheet : Measurements 03/25/2021 12:34 EDT Height/Length Measured 177.0 cm Weight Measured 85.5 kg 03/25/2021 12:25 EDT Height/Length Measured 177.0 cm (Modified) Weight Dosing 85.5 kg [place] Body Weight Calculated 72.276 kg (Modified) BSA Measured 2.05 m2 Body Mass Index Measured 27.29 kg/m2 Weight Measured 85.5 kg 03/24/2021 8:35 EDT Height/Length Dosing 178.0 cm Weight Dosing 84.0 kg 03/24/2021 8:35 EDT Height/Length Measured Date\Time Correction Height/Length Dosing 177.8 cm [place] Body Weight Calculated Date\Time Correction Pain assessment: [...] be discharged from anesthesia care. Condition stable. [facility] Comment on above: Result Comment: Elec tronically Signed By: Deniz Chan MD\.br\Date and Time Signed: 03/29/21 16:40 EDT Consent for Anesthesiaon Consent for Anesthesia [id number]#1.0 0CD:127 [facility] Consent for Procedure/Surger yon 03-26-2021 Consent for Procedure/Surgery [id number]#1.0 0CD:127 [facility] Discharge Instructionson Discharge Instructions [id number] 0CD:127 Normal [facility] IntraOperative Documentson IntraOperative Documents [id number] 0CD:127 Normal [facility] IntraOperative Documents [id number]#1.0 0CD:127 Normal [facility] Preoperative Documentson Preoperative Documents [id number]#1.0 0CD:127 Normal [facility] Capillary Glucose POCon 03-12 Glucose [Mass/Vol] 134 mg/dL High 55-99 [facility] Comment on above: Performed By: #### 2 [id number] ####[facility] [address] [place] [address] Consent for Treatmenton 03-12 Consent for Treatment [id number]#1.0 0CD:127 Normal [facility] ECG 12-Leadon 03-25-2021 ECG 12-Lead [id number]#1.0 0CD:127 Normal [facility] Immunization Recordson 03-25 Immunization Records [id number]#1.0 0CD:127 Normal [facility] Inpatient Patient Summaryon 03-25-2021 Inpatient Patient Summary [place] [id number] [facility] Clinical Discharge Instructions PERSON INFORMATION Name: RIC SANCHEZ [facility]#:[id number] PHYSICIANS Admitting Physician: Lino Ansari Jr., MD Attending Physician: Lino Ansari Jr., MD PCP: CHRISTOPHER PEARCE DO Discharge Diagnosis: Hydronephrosis with renal and ureteral calculus obstruction Comment: PATIENT EDUCATION INFORMATION Instructions: Ovcm-Dytg-nm Utereroscopy,Lithotrip sy, Stone Extraction, Stent Placement (Custom); Cystoscopy; Post Op Patient Instructions - FT (Custom) (Custom) Medication Leaflets: Follow up: With: Address: When: Lino Ansari [facility], [address], [place] [address] Business (1) Within 1 week Comments: My office will schedule cystoscopy with stent extraction. MEDICATION LIST New Medications [id number], [address], [place] [id number], [phone] acetaminophen-oxycodon e (Percocet 5 mg-325 mg oral [...] Tablets By Mouth every day. Comment: Normal [facility] Main OR PACU I Recordon 03-12 Main OR PACU I Record PACU Phase I Document Type FT Summary Primary Physician: Lino Ansari Jr., MD Finalized Date/Time: 03/25/21 18:09:07 Pt. Name: RIC SANCHEZ/Sex: 1960 Male Med Rec #: [id number] Physician: Lino Ansari Jr., MD Financial #: [id number] Pt. Type: A Room/Bed: [facility] Admit/Disch: 03/25/21 11:46:55 - Institution: Case Times [...] By: Anabela Yeh RN 03/25/21 18:09 Normal [facility] Main OR PACU II Recordon Main OR PACU II Record PACU Phase II Document Type FT Summary Primary Physician: Lino Ansari Jr., MD Finalized Date/Time: 03/25/21 18:08:49 Pt. Name: RIC SANCHEZ./Sex: 1960 Male Med Rec #: [id number] Physician: Lino Ansari Jr., MD Financial #: [id number] Pt. Type: A Room/Bed: Admit/Disch: 03/25/21 11:46:55 [...] By: Beatriz Blankenship RN 03/25/21 18:08 Normal [facility] Main OR Preoperative Recordo n 03-25-2021 Main OR Preoperative Record PreOp Document Type FT Summary Primary Physician: Lino Ansari Jr., MD Finalized Date/Time: 03/25/21 15:55:27 Pt. Name: RIC SANCHEZ /Sex: 1960 Male Med Rec #: [id number] Physician: Lino Ansari Jr., MD Financial #: [id number] Pt. Type: A Room/Bed: Admit/Disch: 03/25/21 11:46:55 [...] Nadia Corbett RN, I 03/25/21 15:55 Normal [facility] Monitor Recordon 03-25-2021 Monitor Record [id number]#1. 00CD:127 Normal [facility] Operative Reporton Operative Report Patient: MARTÍNEZ SANCHEZ Age: 60 years Sex: Male : 1960 Associated Diagnoses: None Author: Lino Ansari Jr., MD Postoperative Information Procedure: Hydronephrosis with left ureteral calculus Date/ Time: 03/25/2021 15:42:00 Preoperative Diagnosis: Hydronephrosis with renal and ureteral calculus obstruction (NON22-FC N13.2, Discharge, Medical). Postoperative Diagnosis: Hydronephrosis with renal and ureteral calculus obstruction (CYA59-TA N13.2, Discharge, Medical). Performed by: Elan Peterson [...] the lab for chemical analysis. A 6 Bahamian double-J ureteral stent was then placed over [...] FACS. Specimens Removed: Ureteral calculi. Prosthesis: 6 Bahamian double-J ureteral stent. . Estimated Blood Loss: 0 ml. Complications: None. Anesthesia type: General. [facility] Comment on above: Result Comment: Elec tronically Signed By: Lino Ansari Jr., MD\.br\Date and Time Signed: 03/25/21 15:50 EDT Outpatient Surgery Discharge Instructionon 03-25-2021 Outpatient Surgery Discharge Instruction [place] [id number] Patient Discharge Instructions PERSON INFORMATION Name: RIC [...] Follow up: With: Address: When: Lino Ansari [facility], [address], [place] [address] Business (1) Within 1 week Comments: My office will schedule cystoscopy with stent extraction. Pharmacy Information: [facility] You may receive a survey from Elne Aggarwal asking you to rate your care experience. Your feedback is important and will help us understand what we do well and how we can improve the quality of care we provide to you, your loved ones and our community. It?s an honor to serve you. Thank you for choosing [facility] HERE ARE THE MEDICATION CHANGES THAT OCCURRED DURING YOUR HOSPITAL STAY New Medications [id number], [address], [place] [phone], [phone] acetaminophen-oxycodon e (Percocet 5 mg-325 mg oral [...] day. PATIENT EDUCATION INFORMATION Instructions: [facility] [place], [place] Post-operative Instructions for Stent Placement There [...] other reasons. If it is to remain snf, however, changes of the stent are required [...] the ba (more content not included)... Normal [facility] Patient Education - Texton 1 Patient [...] including vitamins, herbs, eye drops, creams, and akjg-xpe-xbqqcnj medicines. ? Any problems you or family [...] tells you to take them. ? Taking hycx-qvm-mdgqipm medicines, vitamins, herbs, and supplements. ? Follow [...] these instructions at home: Medicines ? Take xhbo-cuj-bctcvfe and prescription medicines only as told by [...] yellow. ? (more content not included)... Normal [facility] Progress Note-Physicianon Progress Note-Physician Patient: RIC [...] selected or recorded. Procedure history: Hip replacement ([id number]). Social History Social & Psychosocial Habits Tobacco [...] and lungs, allergic reactions, and .. Normal [facility] Comment on above: Result Comment: Elec [...] V. Transcribed by: LOUIS Technologist: HARRIET Normal [facility] XR Urography Retrograde Left on 03-25-2021 XR Urography Retrograde Left Exam Date/Time: 03/25/2021 15:43 EDT Reason for Exam: Kidney stone Report IMPRESSION: LEFT URETERAL STENT PLACEMENT. CLINICAL HISTORY: Kidney stone COMPARISON: 03/25/2021 12:28 PM. FINDINGS: 3 digital spot images of the abdomen were obtained in surgery. Initial 3d modeler image shows a tiny left renal calculus [...] Dose: Ka,r in mGy = 465.9 Normal [facility] Consent for Treatmenton 03-12 Consent for Treatment [id number]#1.0 0CD:127 Normal [facility] Outside Recordson 03-24-2021 Outside Records [id number]#1. 00CD:127 Normal [facility] Physician Orderon 03-24-2021 Physician Order [id number]#1.0 0CD:127 Normal [facility] RAD - MISCon 03-24-2021 RAD - MISC [id number]#1.0 0CD:127 Normal [facility] XR Chest 2 Viewson XR Chest [...] MD Transcribed by: LOUIS Technologist: MAJO Normal [facility] Anesthesia Recordon 12-31-19 Anesthesia Record Patient: MARTÍNEZ SANCHEZ MRN: [id number] Age: 60 years Sex: Male : 1960 Associated Diagnoses: None Author: Frankie PARDO, Sergo Jewell Procedure Time Out Thornton Protocol: patient identity verified, site verified, side [...] m16.12 Postoperative Diagnosis: m16.12 . Normal [facility] OR Nursingon 12-30-2020 OR Nursing Normal [facility] PACU I Nursingon 12-30-2020 PACU I Nursing CO NA PACU I Nursing Record Summary Primary Physician: Quentin Ramirez MD Finalized Date/Time: 12/30/20 12:49:47 Pt. Name: RIC SANCHEZ/Sex: 1960 Male Med Rec #: [id number] Physician: Financial #: [id number] Pt. Type: A Room/Bed: / Admit/Disch: 12/30/20 07:04:00 - Institution: CT NA OR Main PACU I Case Times [...] Mendoza Soto RN 12/30/20 12:49 Normal [facility] PreOp Nursingon 12-30-2020 PreOp Nursing CO NA PreOp Nursing Record Summary Primary Physician: Quentin Ramirez MD Finalized Date/Time: 12/30/20 09:42:21 Pt. Name: RIC SANCHEZ/Sex: 1960 Male Med Rec #: [id number] Physician: Financial #: [id number] Pt. Type: A Room/Bed: / Admit/Disch: 12/30/20 [...] Fernando Zimmerman RN Document Signatures Signed By: Feranndo Zimmerman RN 12/30/20 09:42 Normal [facility] XR Pelvis 1-2 Viewson 2020 XR Pelvis 1 or 2 Views EXAM: XR Pelvis 1-2 Views HISTORY: Postoperative COMPARISON: None. TECHNIQUE: AP radiograph of the pelvis. FINDINGS: There is a left total hip arthroplasty with surrounding postprocedural change. Hardware is intact. Alignment is within expected limits. Partially evaluated right hip is unremarkable. IMPRESSION: Left total hip arthroplasty, as above. [place] thanks you for the opportunity to care for your patient. Workstation ID: [id number] FINAL REPORT Dictated By: Latonya Hampton MD 12/30/2020 13:05 Assigned Physician: Latonya Hampton MD Reviewed and Electronically Signed By: Latonya Hampton MD 12/30/2020 13:06 Transcribed by: CRISTINA 12/30/2020 13:05 Technologist: SARAH Guardado [facility] Comment on above: Order Comment: Posto perative, s/p JENIFFER Basic metabolic 2000 panelon 12-16-2020 Calcium [Mass/Vol] 9.6 mg/dL Normal 8.5-10.6 [facility] Chloride [Moles/Vol] 103 mmol/L Normal 98-107 [facility] CO2 [Moles/Vol] 25 mmol/L Normal 21-32 [facility] Creatinine [Mass/Vol] 0.81 mg/dL Normal 0.70-1.30 [facility] Glucose [Mass/Vol] 133 mg/dL High 70-99 [facility] Potassium [Moles/Vol] 4.2 mmol/L Normal 3.5-5.1 [facility] Sodium [Moles/Vol] 139 mmol/L Normal 136-145 [facility] Urea nitrogen (BldV) [Mass/Vol] 15 mg/dL Normal 7.0-18.0 [facility] Urea nitrogen/Creatinine [Mass ratio] 19 mg/mg Normal [facility] CBC W Auto Differential pane l (Bld)on 12-16-2020 Basophils (Bld) [#/Vol] 0.0 thou/mcL Normal 0.0-0.2 [facility] Basophils/100 WBC (Bld) 0.4 % Normal 0-3 [facility] Differential cell count method Nom (Bld) AUTOMATED DIFFERENTIAL Normal [facility] Eosinophils (Bld) [#/Vol] 0.1 thou/mcL Normal 0.0-0.4 [facility] Eosinophils/100 WBC (Bld) 2.4 % Normal 0-7 [facility] Lymphocytes (Bld) [#/Vol] 2.4 thou/mcL Normal 0.7-4.5 [facility] Lymphocytes/100 WBC (Bld) 49.7 % High 14-46 [facility] Monocytes (Bld) [#/Vol] 0.4 thou/mcL Normal 0.1-1.0 [facility] Monocytes/100 WBC (Bld) 8.1 % Normal 4-13 [facility] Neutrophils (Bld) [#/Vol] 1.9 thou/mcL Normal 1.5-7.8 [facility] Neutrophils/100 WBC (Bld) 39.4 % Low 40-74 [facility] Erythrocyte distribution width (RBC) [Entitic vol] 13.4 % Normal 11.7-15.0 [facility] Hematocrit (Bld) [Volume fraction] 46.0 % Normal 34.0-50.0 [facility] Hemoglobin (Bld) [Mass/Vol] 15.7 g/dL Normal 11.5-17.0 [facility] MCH (RBC) [Entitic mass] 30.5 Picograms Normal 27.0-34.0 [facility] MCHC (RBC) [Mass/Vol] 34.1 g/dL Normal 32.0-36.0 [facility] MCV (RBC) [Entitic vol] 89.3 fL Normal 80-98 [facility] Platelet mean volume (Bld) [Entitic vol] 9.5 fL Normal 7.5-11.2 [facility] Platelets (Bld) [#/Vol] 271 thou/mcL Normal 140-415 [facility] RBC (Bld) [#/Vol] 5.15 x(10)6/mcL Normal 3.80-5.60 [facility] WBC (Bld) [#/Vol] 4.9 thou/mcL Normal 4.0-10.5 [facility] Vital Signs Date Time Vital Sign Value Performing Clinician Facility 06-26-2023 15:00-0500 Body height 175.26 cm Christopher DxTerity Other [place] Other 06-26-2023 15:00-0500 Body mass index (BMI) [Ratio] 29.86 kg/m2 Christopher [facility] Other [place] [facility] Other 06-26-2023 15:00-0500 Body weight 91.72 kg Christopher [facility] Other [facility] Other 06-26-2023 15:00-0500 Diastolic blood pressure 85 mm[Hg] [facility] Other [place] [facility] Other 06-26-2023 15:00-0500 Respiratory rate 12 /min Christopher [facility] Other [place] [facility] Other 06-26-2023 15:00-0500 Systolic blood pressure 124 mm[Hg] Christopher [facility] Other [place] [facility] Other 03-14-2023 14:00-0400 Body height 175.26 cm Christopher Ball Other [facility] Other 03-14-2023 14:00-0400 Body mass index (BMI) [Ratio] 28.73 kg/m2 Christopher Ball Other [facility] Other 03-14-2023 14:00-0400 Body weight 88.27 kg Christopher Ball Other [facility] Other 03-14-2023 14:00-0400 Diastolic blood pressure 86 mm[Hg] Christopher Ball Other [facility] Other 03-14-2023 14:00-0400 Respiratory rate 12 /min Christopher Ball Other [facility] Other 03-14-2023 14:00-0400 Systolic blood pressure 121 mm[Hg] Christopher Ball Other [facility] Other 12-21-2022 15:00-0400 Body height 175.26 cm Christopher Ball Other [facility] Other 12-21-2022 15:00-0400 Body mass index (BMI) [Ratio] 28.97 kg/m2 Christopher Ball Other [facility] Other 12-21-2022 15:00-0400 Body weight 89 kg Christopher Ball Other [facility] Other 12-21-2022 15:00-0400 Diastolic blood pressure 80 mm[Hg] Christopher Ball Other [facility] Other 12-21-2022 15:00-0400 Respiratory rate 12 /min Christopher Ball Other [facility] Other 07-12-2023 15:00-0400 Systolic blood pressure 126 mm[Hg] Christopher Ball Other [facility] Other 11-26-2022 09:00-0400 Body height 175.26 cm Kacey Moultonley Other [facility] Other 11-26-2022 09:00-0400 Body mass index (BMI) [Ratio] 28.5 kg/m2 Kacey Taylor Other [facility] Other 11-26-2022 09:00-0400 Body temperature 97.1 [degF] Kaceyjose f Vazquez Other [facility] Other 11-26-2022 09:00-0400 Body weight 87.54 kg Kaceyjose f Vazquez Other [facility] Other 11-26-2022 09:00-0400 Diastolic blood pressure 74 mm[Hg] Kaceyjose f Vazquez Other [facility] Other 11-26-2022 09:00-0400 Respiratory rate 18 /min Kacey Taylor Other [facility] Other 11-26-2022 09:00-0400 SaO2% (BldA) [Mass fraction] 97 % Kacey Taylor Other [facility] Other 11-26-2022 09:00-0400 Systolic blood pressure 106 mm[Hg] Kacey Vazquez Other [facility] Other 10-10-2022 16:00-0400 Body height 175.26 cm Christopher Ball Other [facility] Other 10-10-2022 16:00-0400 Body mass index (BMI) [Ratio] 28.59 kg/m2 Christopher Ball Other [facility] Other 10-10-2022 16:00-0400 Body weight 87.82 kg Christopher Ball Other [facility] Other 10-10-2022 16:00-0400 Diastolic blood pressure 77 mm[Hg] Christopher Ball Other [facility] Other 10-10-2022 16:00-0400 SaO2% (BldA) [Mass fraction] 96 % Christopher Ball Other [facility] Other 10-10-2022 16:00-0400 Systolic blood pressure 108 mm[Hg] Christopher Ball Other [facility] Other 08-08-2022 15:45-0500 Body height 175.26 cm Christopher Ball Other [facility] Other 08-08-2022 15:45-0500 Body mass index (BMI) [Ratio] 29.12 kg/m2 Christopher Ball Other [facility] Other 08-08-2022 15:45-0500 Body weight 89.45 kg Christopher Ball Other [facility] Other 08-08-2022 15:45-0500 Diastolic blood pressure 76 mm[Hg] Christopher Ball Other [facility] Other 08-08-2022 15:45-0500 Respiratory rate 12 /min Christopher Ball Other [facility] Other 08-08-2022 15:45-0500 Systolic blood pressure 118 mm[Hg] Christopher Ball Other [facility] Other 11-09-2021 08:53-0400 Blood Pressure Location Lino Elan Peterson [facility] 11-09-2021 08:53-0400 Diastolic blood pressure 88 mm[Hg] Lino Elan Peterson [facility] 11-09-2021 08:53-0400 Heart rate 81 /min Lino Elan Peterson [facility] 11-09-2021 08:53-0400 Systolic blood pressure 113 mm[Hg] Lino Elan Peterson [facility] Encounters Encounter Date Encounter Type Care Provider Facility Start: 07-21-2023 End: 07-21-2023 ambulatory Christopher Pearce Other [place] [facility] Other Start: 07-21-2023 Telephone encounter Christopher Pearce [facility] Start: 06-26-2023 End: 06-26-2023 ambulatory Christopher Pearce Other [place] [facility] Other Start: 06-26-2023 Office outpatient vi sit 15 minutes Christopher Bryce [facility] Start: 06-14-2023 End: 06-14-2023 ambulatory Christopher Pearce Other [place] [facility] Other Start: 06-14-2023 Telephone encounter Christopher Pearce [facility] Start: 05-25-2023 End: 05-25-2023 ambulatory Christophre Bryce Other [facility] Other Start: 05-25-2023 Telephone encounter Christopher Bryce [facility] Start: 05-24-2023 End: 05-24-2023 ambulatory Christopher Ball Other [facility] Other Start: 05-24-2023 Office outpatient vi sit 15 minutes Christopher Ball [facility] Start: 04-28-2023 End: 04-28-2023 ambulatory Christopher Ball Other [place] [facility] Other Start: 04-28-2023 Telephone encounter Christopher Ball [facility] Start: 03-28-2023 End: 03-28-2023 ambulatory Christopher Ball Other [facility] Other Start: 03-28-2023 Telephone encounter Christopher Ball [facility] Start: 03-22-2023 End: 03-22-2023 ambulatory Christopher Ball Other [place] [facility] Other Start: 03-22-2023 Telephone encounter Christopher Ball [facility] Start: 03-14-2023 End: 03-14-2023 ambulatory Christopher Ball Other [facility] Other Start: 03-14-2023 Office outpatient vi sit 25 minutes Christopher Ball [facility] Start: 02-28-2023 End: 02-28-2023 ambulatory Christopher Ball Other [place] [facility] Other Start: 02-28-2023 Telephone encounter Christopher Ball [facility] Start: 12-22-2022 End: 12-22-2022 ambulatory Christopher Ball Other [facility] Other Start: 12-22-2022 Telephone encounter Christopher Ball [facility] Start: 12-21-2022 End: 12-21-2022 ambulatory Christopher Ball Other [facility] Other Start: 12-21-2022 Office outpatient vi sit 25 minutes Christopher Ball [facility] Start: 12-05-2022 End: 12-05-2022 ambulatory Christopher Ball Other [place] [facility] Other Start: 12-05-2022 Office outpatient vi sit 15 minutes Christopher Pearce [facility] Start: 11-26-2022 End: 11-26-2022 ambulatory Kacey Vazquez Other [place] [facility] Other Start: 11-26-2022 Office outpatient vi sit 15 minutes Kacey Vazquez [facility] Start: 10-11-2022 End: 10-11-2022 ambulatory Christopher Pearce Other [place] [facility] Other Start: 10-11-2022 Telephone encounter Christopher Pearce [facility] Start: 10-10-2022 End: 10-10-2022 ambulatory Christopher Pearce Other [place] [facility] Other Start: 10-10-2022 Office outpatient vi sit 25 minutes Christopher Pearce [facility] Start: 09-06-2022 End: 09-06-2022 ambulatory Christopher Pearce Other [place] [facility] Other Start: 09-06-2022 Telephone encounter Christopher Pearce [facility] Start: 08-26-2022 End: 08-26-2022 ambulatory Christopher Pearce Other [place] [facility] Other Start: 08-26-2022 Telephone encounter Christopher Pearce [facility] Start: 2022 End: 2022 ambulatory Christopher Pearce Other [place] Other Start: 2022 Telephone encounter Christopher Pearce [facility] Start: 08-19-2022 End: 08-20-[address] CHRISTOPHER PEARCE Facility:[facility] Start: 08-19-2022 Telephone encounter Christopher Pearce [facility] Start: 08-18-2022 End: 08-18-2022 ambulatory Christopher Pearce Other [facility] Other Start: 08-18-2022 Telephone encounter Christopher [facility]AMUDIO [facility] Start: 08-17-2022 End: 08-18-[address] CHRISTOPHER PEARCE Facility:[facility] Start: 08-17-2022 Telephone encounter Christopher ZAMUDIO [facility] Start: 08-08-2022 End: 08-08-2022 ambulatory Christopher Pearce Other [place] [facility] Other Start: 08-08-2022 Office outpatient vi sit 25 minutes Christopher Pearce [facility] Start: 03-15-2022 End: 03-16-[address] LINO Leyva Facility:[facility] Start: 01-25-2022 End: 01-25-2022 ambulatory LEYDI PEREYRA Facility:[facility] Start: 12-22-2021 Encounter for genera l adult medical examination without abnormal findings DR CHRISTOPHER PEARCE [facility] Start: 12-21-2021 End: 12-22-[address] CHRISTOPHER PEARCE Facility:[facility] Start: 12-21-2021 End: 12-22-2021 Encounter for general adult medical examination without abnormal findings DR CHRISTOPHER PEARCE Facility:[facility] Start: 12-14-2021 Adult health examination Christopher Pearce Other [place] Other Start: 11-09-2021 End: 11-10-2021 ambulatory Lino Ansari Facility:[facility] Start: 11-09-2021 End: 11-09-2021 Patient encounter procedure Lino Ansari Jr. [facility] Start: 08-31-2021 End: 09-01-[address] CHRISTOPHER PEARCE Facility: Start: 04-01-2021 End: 04-02-2021 ambulatory Lino Ansari Facility[place] Start: 03-25-2021 End: 03-25-2021 ambulatory Lino Ansari Facility[facility] Start: 03-24-2021 End: 03-25-2021 ambulatory Lino Ansari Facility:[facility] Procedures Date Procedure Procedure Detail Performing Clinician Start: 12-21-2021 PSA screening LEYDI JAIN Comment on above: Performed By: #### C MP, TSH #### [facility] [address] [address] [address] Cipriano Simon Start: 03-25-2021 Cystoscopy Lino [...] recombinant Lino Ansari Jr. [facility] NEGATED: Highlighted row has not occurred!11-09-2021 influenza virus vaccine, unspecified formulation Lino Ansari Jr. [facility] Payers Date Payer Category Payer Unknown [id number] 2.16.8 [id number] 1960 Unknown [id number] 2.16.8 [id number] 1960 Unknown [id number] 2.16.8 [id number] 1960 Unknown [id number] 2.16.8 [id number] 1960 Unknown [id number] 2.16.8 [id number] 1960 Unknown [id number] 2.16.84 [id number] 1960 Unknown [id number] 2.16.84 [id number] 1960 Unknown [id number] 2.16.84 [id number] 1960 Unknown [id number] 2.16.84 [id number] 1960 Unknown [id number] 2.16.84 [id number] 1960 Unknown [id number] 2.16.84 [id number] 1960 Unknown [id number] 1957 Unknown [id number] 1957 Unknown [id number] Unknown [id number] Social History Date Type Detail Facility Start: 11-09-2021 Never smoked tobacco (f inding) [facility] Male [facility] Medical Equipment Procedure Code Equipment Code Equipment Origin al Text Equipment Identifier Dates [id number] [facility] Start: 03-25-2021 Start: 09-06-2022 Clinical Notes 12-30-2020 [...] Microalbumin, Dilated eye exam and Foot exam [facility] 12-13-2023 Evaluation note* Encounter Date Diagnosis [...] improved FBS BS have increased w/ illness [facility] 10-17-2023 Evaluation note* Encounter Date Diagnosis Assessment Notes Treatment Notes Treatment Clinical Notes Mar, Type 2 diabetes mellitus with hyperglycemia (ICD-10 - E11.65) [facility] 10-11-2023 Evaluation note* Encounter Date Diagnosis Assessment Notes Treatment Notes Treatment Clinical Notes Mar, Type 2 diabetes mellitus with hyperglycemia (ICD-10 - E11.65) Mar, snf (current) use of insulin (ICD-10 - Z79.4) [facility] 10-03-2023 Evaluation note* Encounter Date Diagnosis [...] exercise for 30 minutes, 3-5 times weekly. [facility] 07-13-2023 Evaluation note* Encounter Date Diagnosis Assessment Notes Treatment Notes Treatment Clinical Notes Dec, Type 2 diabetes mellitus with hyperglycemia, without long-term current use of insulin (ICD-10 - E11.65) [facility] 07-12-2023 Evaluation note* Encounter Date Diagnosis [...] Avoid stimulants, hydrate and no medication changes [facility] 06-26-2023 Evaluation note* Encounter Date Diagnosis [...] of infection. Monitor for now. Push fluids [facility] 06-17-2023 Evaluation note* Encounter Date Diagnosis [...] to 7 days, sooner if significantly worsening. [facility] Other 05-01-2023 Evaluation note* Encounter Date Diagnosis [...] They may safely use Tylenol as needed. [facility] Other 03-13-2023 Evaluation note* Encounter Date Diagnosis Assessment Notes Treatment Notes Treatment Clinical Notes Aug, Type 2 diabetes mellitus with hyperglycemia, without long-term current use of insulin (ICD-10 - E11.65) [facility] 03-10-2023 Evaluation note* Encounter Date Diagnosis Assessment Notes Treatment Notes Treatment Clinical Notes Aug, Type 2 diabetes mellitus with hyperglycemia, without long-term current use of insulin (ICD-10 - E11.65) Aug, Anemia, unspecified type (ICD-10 - D64.9) [facility] Other 03-09-2023 Evaluation note* Encounter Date Diagnosis Assessment Notes Treatment Notes Treatment Clinical Notes Aug, Type 2 diabetes mellitus with hyperglycemia, without long-term current use of insulin (ICD-10 - E11.65) [facility] Other 03-08-2023 Evaluation note* Encounter Date Diagnosis Assessment Notes Treatment Notes Treatment Clinical Notes Aug, Type 2 diabetes mellitus with hyperglycemia, without long-term current use of insulin (ICD-10 - E11.65) [facility] 02-27-2023 Evaluation note* Encounter Date Diagnosis [...] cramp, nocturnal (ICD-10 - R25.2) Reassure, check Katia Joellen [facility] 05-31-2022 Hospital Discharge instructions Patient Education 11/09/2021 09:45:52 Kidney Stones, Ypjl-yk-Tach Kidney Stones Kidney stones are rock-like masses [...] Follow these instructions at home: Medicines Take dngh-uxs-nhwpieh and prescription medicines only as told by [...] 11/14/2008 Document Revised: 10/15/2019 Document Reviewed: 10/15/2019 [employer] Patient Education 2019 [employer]. Follow Up Care 04/01/2021 14:51:08 With:Elan Peterson MD, Lino Goodson, URO Address: [facility] [address], [place] [address]- When:05/12/2022 Comments:w/nancy [facility] 10-26-2021 Note [id number]:127[facility] 04-01-2021 NoteCystoscopy with Stent Removal ? [...] if you have a fever over 100 degrees.[facility] 03-24-2021 [id number]:127[facility]07-21-2021 Hospital Progress notePatient: RIC SANCHEZ MRN: [id number] Age: 60 years Sex: Male : 1960 Associated Diagnoses: None Author: Christiano PARDO , Marco Newton Assessment Assessment Diagnosis: Osteoarthritis of left hip (OFH25-IV M16.12, Working, Medical). Plan A medical consult [...] Radiology Report for More Detail Diagnosis Documentation CommunicationProm[facility] Anesthesiology Preoperative evaluation and management notePatient: RIC SANCHEZ MRN: [id number] Age: 60 years Sex: Male : 1960 [...] preprocedural examination - Marco Pro MD Social History: Type of Tobacco Use: Cigarettes [...] 10:44:27 by Mart BAUM , Chelsey Acosta [place] Medications: cyanocobalamin = 1 Tab, PO, Daily,, [...] thou/mcL 12/16/20 10:32, Lymphocyt (more content not included)...[facility] No data available for this section [facility] evaluation noteNo InformationNortPegasus Technologies Other History general Narrative - Reported* Type Description Date Medical History Anxiety Medical History diabetes mallitus Medical History left hip pain Surgical History kidney stone Hospitalization History see above [facility] Other History general Narrative - Reported* Type Description Date Medical History Anxiety Medical History diabetes mallitus Medical History left hip pain Surgical History kidney stone Surgical History Left hip replacement Hospitalization History see above [facility] Other Reason for referral (narrative)* Reason Referral for rotator cuff tear Diagnosis 1 Acute pain of left s houlder (M25.512) Diagnosis 2 Nontraumatic incompl ete tear of rotator cuff, unspecified laterality (M75.110) Referral Organization [facility] Bryce yanes Referring Provider First Name Christopher Referring Provider Last Name Bryce Referring Provider Specialty Internal Me dicine Referred Organization [facility] Referred Provider Alfredo Vazquez Referred Address [address] [place], [place],[address] Referred Provider Specialty Orthopedic S urgery Referral Priority Routine General Notes Mr. Sanchez is being re ferred for further evaluation and treatment of a rotator cuff tear. Clinical Notes MRI completed [facility] Other Summary Purpose Family History No Family [...] section and content) DATE CREATED AUTHOR 03/01/2021 [facility] DATE CREATED AUTHOR AUTHOR'S ORGANIZ ATION 03/17/2022 [facility] DATE CREATED AUTHOR AUTHOR'S ORGANIZ ATION 08/24/2022 [facility] REASON FOR VISIT (unrecogniz ed section and content) Heart FluttersNo Information No InformationNo InformationLab ResultsMedication AErefillFOLLOW UPmedicationsinus infection, 2 wksSINUS INFECTION [phone] sugar check upNo InformationBS readingsBS NOT CONTROLLEDMedicationNo InformationLabsupdateneck ache, headache, cough, congestionLab resultsXR resultsshoulder painshoulder painMRI results FOR RECORDS PERTAINING TO PATIENTS WHO [...] BE BASED ON THE PRIMARY CLINICAL RECORDS. [facility]. provides no warranty or guarantee of the accuracy or completeness of information in this document.
[2023-08-20 06:09] VITALS: BP 142/82; PULSE 53; RESP 20; TEMP 36.5; O2SAT 98
--- NOTE | 2023-08-20 06:23 | CT_ITS ---
[address] [address] Patient Name: RIC SANCHEZ MRN: [id number] date: 1960 Sex: M Assigned Patient Location: ER Current Patient Location: .[facility] Accession/Order Number: [id number] Exam Date: 08/20/2023 07:02 Report Date: 08/20/2023 07:33 At the request of: LEYDI PEREYRA Procedure: CT abdomen pelvis wo con EXAM: CT abdomen pelvis wo con , 08/20/2023 HISTORY: left flank pain COMPARISON: CT scan abdomen pelvis from 2020 X-rays of the abdomen and pelvis from 2021. TECHNIQUE: Noncontrast CT scan of the abdomen and pelvis was performed. Coronal and sagittal reconstructions were performed. Dose reduction techniques were achieved by using automated exposure control and/or adjustment of mA and/or kV according to patient size and/or use of iterative reconstruction technique. FINDINGS: An obstructing calculus is seen in the proximal left ureter at L4 level, 6 mm in size, with mild proximal hydronephrosis and hydroureter. No calculus is seen in the right or left kidney. The right-sided ureter is unremarkable. Urinary bladder is partially filled, and partially obscured by metal artifacts from left hip joint replacement. Prostate gland is not enlarged. The liver shows mild steatosis, without obvious focal lesion. Mild hepatomegaly, measuring 21 cm in the superior-inferior dimension. Punctate calcifications in the spleen, consistent with old granulomas. Pancreas, gallbladder, bile ducts and both adrenal glands are unremarkable. Mild atherosclerotic calcification of the abdominal aorta. Unremarkable IVC. No abdominal, retroperitoneal or pelvic lymphadenopathy. No bowel loop dilatation or bowel wall thickening. No free fluid in the peritoneal cavity. No acute osseous findings. Scans through the lung bases show no infiltrate or nodule. CT/CT abdomen pelvis wo con IMPRESSION: 1. Obstructing calculus in the proximal left ureter measuring 6 mm in size, with mild hydronephrosis and hydroureter. 2. Mild hepatic steatosis and hepatomegaly. 3. Left hip replacement. Electronically authenticated by: HIRO SADLER Date: 08/20/2023 07:33
--- NOTE | 2023-08-20 06:24 | ED.ABDPAIN1 ---
HPI - Abdominal Pain General Chief Complaint: Abdominal Pain Stated Complaint: FLANK PAIN Time Seen by Provider: 08/20/23 06:22 Source: patient Mode of arrival: walk-in Limitations: no limitations History of Present Illness HPI narrative: left lower quad pain. Pain started yesterday and was mild. This AM the pain is intense and now reminiscent of his past kidney stone of 4 years ago. Pain associated with emesis. No fever. No chest pain Related Data Allergies Allergy/AdvReac Type Severity Reaction Status Date / Time No Known Drug Allergies Allergy Verified 08/20/23 06:09 Review of Systems ROS Status of ROS 10 or more systems reviewed and unremarkable except as noted in history and below [facility] Social History Smoking status: Former smoker Exam Constitutional Vital Signs, click to edit/add: Last Vital Signs Temp 97.7 F 08/20/23 06:09 Pulse 53 L 08/20/23 06:09 Resp 20 08/20/23 06:09 BP 142/82 H 08/20/23 06:09 Pulse Ox 98 08/20/23 06:09 O2 Del Method Room Air 08/20/23 06:09 Common normals: average body habitus, oriented x3, no limitations, healthy appearing, alert and well nourished [facility] Common normals: normocephalic and head/scalp atraumatic Eye Common normals: PERRL, EOMs intact bilaterally and conjunctivae normal Respiratory Common normals: normal respiratory effort, no retractions, no use of accessory muscles and clear to auscultation bilaterally Cardio Common normals: regular rate, regular rhythm, S1 normal heart sound and S2 normal heart sound GI Common normals: Normal to inspection, nondistended, normoactive bowel sounds present and soft to palpation Other: mild tenderness LLQ Extremity Common normals: normal to inspection and full ROM Neuro Common normals: oriented x3, CN's II-XII intact bilaterally, moves all extremities and no focal motor deficits Psych Appearance: grossly normal Course Vital Signs Vital signs: Vital Signs Temperature 97.7 F 08/20/23 06:09 Pulse Rate 53 L 08/20/23 06:09 Respiratory Rate 20 08/20/23 06:09 Blood Pressure 142/82 H 08/20/23 06:09 Pulse Oximetry 98 08/20/23 06:09 Oxygen Delivery Method Room Air 08/20/23 06:09 Temperature 97.7 F 08/20/23 06:09 Pulse Rate 53 L 08/20/23 06:09 Respiratory Rate 20 08/20/23 06:09 Blood Pressure 142/82 H 08/20/23 06:09 Pulse Oximetry 98 08/20/23 06:09 Oxygen Delivery Method Room Air 08/20/23 06:09 MDM - Abdominal Pain MDM Narrative Medical decision making narrative: patient presents with LLQ/ left flank pain with associated nausea and vomiting. Reminiscent of past kidney stone. Patient medicated and diagnostic studies ordered. Care transferred to oncoming physician Discharge Plan Discharge Chief Complaint: Abdominal Pain Clinical Impression: Abdominal pain Patient Disposition: Still a Patient Referrals: Christopher Pearce DO [Primary Care Provider] - 1 week
[2023-08-20 06:36] LABS: Basophils Absolute Auto 0.1 10^3/uL (0.0-0.1); Basophils Percent Auto 0.8 % (0.2-2.0); Eosinophils Absolute Auto 0.2 10^3/uL (0.0-0.7); Eosinophils Percent Auto 2.8 % (0.9-7.0); Hematocrit 46.9 % (42.0-54.0); Hemoglobin 16.1 g/dL (14.0-18.0); Immature Granulocytes Abs Auto 0.04 10^3/uL (0.00-0.03); Immature Granulocytes Pct Auto 0.5 % (0.0-0.5); Lymphocytes Absolute Auto 3.5 10^3/uL (1.2-3.8); Lymphocytes Percent Auto 45.5 % (20.5-60.0); Mean Corpuscular HGB Conc 34.3 g/dL (29.9-35.2); Mean Corpuscular Hemoglobin 29.8 pg (25.9-34.0); Mean Corpuscular Volume 86.9 fL (80.0-94.0); Mean Platelet Volume 9.9 fL (9.5-13.5); Monocytes Absolute Auto 0.6 10^3/uL (0.3-0.8); Monocytes Percent Auto 7.3 % (1.7-12.0); Neutrophils Absolute Auto 3.3 10^3/uL (1.4-6.5); Neutrophils Percent Auto 43.1 % (43.0-75.0); Platelet Count 259 10^3/uL (150-450); Red Cell Distribution Width 12.8 % (11.0-15.0); White Blood Count 7.7 10^3/uL (4.0-11.0)
[2023-08-20] MEDS: ONDANSETRON PF 4 MG/2 ML VIAL IV ×2 (06:40→08:30)
[2023-08-20] MEDS: FENTANYL CITRATE/PF 100 MCG/2 ML VIAL IV (06:40)
[2023-08-20] MEDS: 0.9 % SODIUM CHLORIDE 1,000 ML 999 ML IV (06:40)
[2023-08-20 06:45] LABS: Anion Gap 15.1; BUN Creatinine Ratio 11.5; Calcium 8.4 mg/dL (8.5-10.1); Carbon Dioxide 25.7 mmol/L (21.0-32.0); Chloride 103 mmol/L (98-107); Estimated GFR (African America >60 (>=60); Estimated GFR (Non-African Ame >60 (>=60); Glucose 185 mg/dL (74-106); Potassium 3.8 mmol/L (3.5-5.1); Sodium 140 mmol/L (136-145)
[2023-08-20 07:03] LABS: Bilirubin Urine NEGATIVE (NEGATIVE); Blood Urine LARGE (NEGATIVE); Clarity Urine CLEAR (CLEAR); Color Urine YELLOW (YELLOW); Glucose Urine UA NEGATIVE (NEGATIVE); Ketones Urine NEGATIVE (NEGATIVE); Leukocyte Esterase Urine NEGATIVE (NEGATIVE); Nitrite Urine NEGATIVE (NEGATIVE); Protein Urine 30 mg/dL (NEG/TRACE); Specific Gravity Urine >=1.030 (1.005-1.025); Urobilinogen Urine 0.2 EU/dL (0.2-1.0); pH Urine 5.5 (5.0-9.0)
[2023-08-20 07:05] VITALS: BP 152/87; PULSE 55; RESP 18; O2SAT 97
[2023-08-20 07:16] LABS: Urine Microscopic Indicated YES
[2023-08-20] MEDS: KETOROLAC TROMETHAMINE 30 MG/ML VIAL IVP (07:26)
[2023-08-20 07:29] VITALS: PULSE 55; RESP 18; O2SAT 98
[2023-08-20 07:32] LABS: Bacteria Urine TRACE #/HPF (NONE SEEN); Cast Seen? SEEN #/LPF (NONE SEEN); Crystals Seen? None Seen #/HPF (None Seen); Hyaline Casts Urine RARE; Mucus Urine TRACE (NONE SEEN); RBC Urine 20-50 #/HPF (0-2); Squamous Epithelial Cell Urine RARE #/LPF (NONE/RARE); WBC Urine 0-2 #/HPF (NONE SEEN)
[2023-08-20 07:33] LABS: Urine Culture Indicated NO
[2023-08-20 07:46] VITALS: BP 154/87; PULSE 56; RESP 18; O2SAT 96
[2023-08-20] MEDS: HYDROMORPHONE HCL 1 MG/ML CARTRIDGE IV (08:31)
[2023-08-20 08:45] VITALS: BP 127/74; PULSE 67; RESP 16; O2SAT 95
--- NOTE | 2023-08-20 09:07 | ED_ITS ---
HPI - Abdominal Pain General Chief Complaint: Abdominal Pain Stated Complaint: FLANK PAIN Time Seen by Provider: 08/20/23 06:22 Source: patient Mode of arrival: walk-in Limitations: no limitations History of Present Illness HPI narrative: The patient was initially seen by Dr. Meng. Please see his full history and physical. Related Data Previous Rx's Medication Instructions Recorded ondansetron 4 mg disintegrating 4 mg PO Q6H PRN nausea and 08/20/23 tablet vomiting #20 tabs oxycodone-acetaminophen 5 mg-325 1 tab PO Q6H PRN pain 5 days #20 08/20/23 mg tablet (Percocet) tabs tamsulosin 0.4 mg capsule (Flomax) 0.4 mg PO DAILY #7 caps 08/20/23 Allergies Allergy/AdvReac Type Severity Reaction Status Date / Time No Known Drug Allergies Allergy Verified 08/20/23 06:09 [facility] Social History Smoking status: Former smoker Exam Constitutional Vital Signs, click to edit/add: Last Vital Signs Temp 97.7 F 08/20/23 06:09 Pulse 67 08/20/23 08:45 Resp 16 08/20/23 08:45 BP 127/74 08/20/23 08:45 Pulse Ox 95 08/20/23 08:45 O2 Del Method Room Air 08/20/23 06:09 Course Vital Signs Vital signs: Vital Signs Temperature 97.7 F 08/20/23 06:09 Pulse Rate 53 L 08/20/23 06:09 Respiratory Rate 20 08/20/23 06:09 Blood Pressure 142/82 H 08/20/23 06:09 Pulse Oximetry 98 08/20/23 06:09 Oxygen Delivery Method Room Air 08/20/23 06:09 Temperature 97.7 F 08/20/23 06:09 Pulse Rate 67 08/20/23 08:45 Respiratory Rate 16 08/20/23 08:45 Blood Pressure 127/74 08/20/23 08:45 Pulse Oximetry 95 08/20/23 08:45 Oxygen Delivery Method Room Air 08/20/23 06:09 MDM - Abdominal Pain MDM Narrative Medical decision making narrative: 6 mm stone is identified in the left ureter. He was given IV fentanyl and Toradol and Dilaudid and is now able to be discharged home. He will follow-up promptly with urology and was prescribed Percocet, Flomax, and Zofran. Treatment diagnosis and follow-up were discussed with the patient and his Differential Diagnosis Differential diagnosis: Likely abdominal pain, calculus of kidney, constipation and diverticulitis Lab Data Attestation: I reviewed the patient's lab results. Labs: Lab Results 08/20/23 08/20/23 Range/Units 06:20 06:50 WBC 7.7 (4.0-11.0) 10^3/uL RBC 5.40 (4.70-6.10) 10^6/uL Hgb 16.1 (14.0-18.0) g/dL Hct 46.9 (42.0-54.0) % MCV 86.9 (80.0-94.0) fL MCH 29.8 (25.9-34.0) pg MCHC 34.3 (29.9-35.2) g/dL RDW 12.8 (11.0-15.0) % Plt Count 259 (150-450) 10^3/uL MPV 9.9 (9.5-13.5) fL Neut % (Auto) 43.1 (43.0-75.0) % Lymph % (Auto) 45.5 (20.5-60.0) % Heard % (Auto) 7.3 (1.7-12.0) % Eos % (Auto) 2.8 (0.9-7.0) % Baso % (Auto) 0.8 (0.2-2.0) % Neut # (Auto) 3.3 (1.4-6.5) 10^3/uL Lymph # (Auto) 3.5 (1.2-3.8) 10^3/uL Heard # (Auto) 0.6 (0.3-0.8) 10^3/uL Eos # (Auto) 0.2 (0.0-0.7) 10^3/uL Baso # (Auto) 0.1 (0.0-0.1) 10^3/uL Abs Immat Gran (auto) 0.04 H (0.00-0.03) 10^3/uL Imm/Tot Granulo (auto) 0.5 (0.0-0.5) % Sodium 140 (136-145) mmol/L Potassium 3.8 (3.5-5.1) mmol/L Chloride 103 (98-107) mmol/L Carbon Dioxide 25.7 (21.0-32.0) mmol/L Anion Gap 15.1 BUN 12.0 (7.0-18.0) mg/dL Creatinine 1.04 (0.70-1.30) mg/dL Est GFR ( Amer) >60 (>=60) Est GFR (Non-Af Amer) >60 (>=60) BUN/Creatinine Ratio 11.5 Glucose 185 H (74-106) mg/dL Calcium 8.4 L (8.5-10.1) mg/dL Urine Color Yellow (YELLOW) Urine Clarity Clear (CLEAR) Urine pH 5.5 (5.0-9.0) Ur Specific Butler >=1.030 A (1.005-1.025) Urine Protein 30 A (NEG/TRACE) mg/dL Urine Glucose (UA) Negative (NEGATIVE) mg/dL Urine Ketones Negative (NEGATIVE) mg/dL Urine Occult Blood Large A (NEGATIVE) Urine Nitrite Negative (NEGATIVE) Urine Bilirubin Negative (NEGATIVE) Urine Urobilinogen 0.2 (0.2-1.0) EU/dL Ur Leukocyte Esterase Negative (NEGATIVE) Urine RBC 20-50 A (0-2) #/HPF Urine WBC 0-2 A (NONE SEEN) #/HPF Ur Squamous Epith Cells Rare (NONE/RARE) #/LPF Urine Crystals None seen (None Seen) #/HPF Urine Bacteria Trace A (NONE SEEN) #/HPF Urine Casts Seen A (NONE SEEN) #/LPF Hyaline Casts Rare Urine Mucus Trace A (NONE SEEN) Ur Culture Indicated? No Imaging Data CT scan - abdomen: Radiologist's impression: ITS Impressions Abdomen/Pelvis CT 08/20/23 06:23 IMPRESSION: 1. Obstructing calculus in the proximal left ureter measuring 6 mm in size, with mild hydronephrosis and hydroureter. 2. Mild hepatic steatosis and hepatomegaly. 3. Left hip replacement. Electronically authenticated by: HIRO SADLER Date: 08/20/2023 07:33 Discharge Plan Discharge Stand Alone Forms: Portal Instructions Chief Complaint: Abdominal Pain Clinical Impression: Calculus of kidney Patient Disposition: Home, Self-Care Time of Disposition Decision: 09:01 Condition: Good Mode of Transportation: Private Vehicle Prescriptions / Home Meds: New tamsulosin [Flomax] 0.4 mg capsule 0.4 mg PO DAILY Qty: 7 0RF oxycodone-acetaminophen [Percocet] 5-325 mg tablet 1 tab PO Q6H PRN (Reason: pain) 5 Days Qty: 20 0RF ondansetron 4 mg tablet,disintegrating 4 mg PO Q6H PRN (Reason: nausea and vomiting) Qty: 20 0RF Instructions: Kidney Stones (ED) Additional Instructions: Follow up with Dr Menendez Referrals: Christopher Pearce DO [Primary Care Provider] - 1 week
[2023-08-20 09:15] VITALS: BP 135/79; PULSE 63; RESP 16; O2SAT 98
== END 2023-08-20 09:36 | disposition home or self-care (01) ==
PROVIDERS: Internal Medicine; Emergency Provider Emergency Medicine; PCP Internal Medicine
DX: N13.2 Hydronephrosis with renal and ureteral calculous obstruction (principal); Z87.442 Personal history of urinary calculi; Z87.891 Personal history of nicotine dependence
CPT/HCPCS: 36415; 74176; 80048; 81001; 85025; 96374; 96375; 96376; 99284; J1170

== ENCOUNTER 2023-08-26 20:22 | Emergency (ER) | payer OTHER, SELFPAY ==
[2023-08-26 20:25] VITALS: BP 143/84; PULSE 86; RESP 16; TEMP 36.6; O2SAT 97; BMI 29.5
--- OUTSIDE RECORDS SUMMARY | 2023-08-26 20:28 | XMS_ITS | CCD ---
Author Name Unknown Address [address] [place] [address] Organization [facility] Team Providers Care Head [employer] Name Role Phone CHRISTOPHER WU Primary Care Physician Lino Ansari Attending Unavailable Elan, Lino Goodson Admitting Unavailable Elan, Lino Goodson Referring Unavailable Ansari, Lino Goodson Attending Unavailable Elan, Lino Goodson Admitting Unavailable Elan, Lino Goodson Referring Unavailable Elan, Lino Goodson Referring Unavailable Elan, Lino Goodson Attending Unavailable Elan, Lino Goodson Admitting Unavailable Elan, Lino Goodson Attending Unavailable HAFSA, LEYDI Attending Unavailable HAFSA, LEYDI Admitting Unavailable BRYCE, DR SNOWDEN Primary Care Unavailable HAFSA, LEYDI Consulting Unavailable BRIA WELLINGTON Consulting Unavailable BRYCE, DR SNOWDEN Primary Care Unavailable BRYCE, DR SNOWDEN Consulting Unavailable BRYCE, DR SNOWDEN Attending Unavailable BRYCE, DR SNOWDEN Admitting Unavailable BRYCE, DR SNOWDEN Primary Care Unavailable BRYCE, DR SNOWDEN Consulting Unavailable BRYCE, DR SNOWDEN Attending Unavailable BRYCE, DR SNOWDEN Admitting Unavailable BRYCE, DR SNOWDEN Primary Care Unavailable BRYCE, DR SNOWDEN Attending Unavailable BRYCE, DR SNOWDEN Consulting Unavailable BRYCE, DR CHRISTOPHER Prieto Unavailable ELAN Leyva, DR LINO Goodson Attending [...] Unavailable Bryce, Christopher Unavailable Kacey Vazquez Unavailable JOHNNIE CARTER Referring Unavailable CHRISTOPHER WU Primary Care Unavailable Allergies Allergy Classification Reported Allergen(s) Allergy Type Date of Onset Reaction(s) Facility (2 sources) Baclofen; 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: [baclofen] Drug Allergy 11-12-19 17 Unknown [facility] (2 sources) celecoxib; 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: [celecoxib] Drug Allergy 03-29-20 20 [facility] (16 sources) Iodine; 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: [iodine] Drug Allergy Unknown (qualifier value) [facility] Comment on above: pt states radioactiv e iodine only, not topical (1 source) Baclofen Drug Allergy 11-13-19 17 [facility] (1 source) celecoxib Drug Allergy 03-30-20 20 [facility] (1 source) Iodine (And Iodine Containting Drugs) Drug allergy (disorder) 03-30-20 20 [facility] (14 sources) Azithromycin Drug Allergy Unknown [facility] Other (20 sources) Ciprofloxacin Drug Allergy Unknown [facility] Other (14 sources) Sulfamethoxazole / Trimethoprim Drug Allergy Unknown [facility] Other (1 source) patient allergy list reviewed by nurse or physicia Propensity to adverse reactions 01-03-20 Comment:Done [facility] Other Medications Current Medications Medication Drug Class(es) [...] oral tablet (16 sources) alpha-Adrenergic Agonist, Uncompetitive M-wlagzf-A-aspartate Receptor Antagonist, Sigma-1 Agonist Start: 11-26-2022 take [...] 01-27-2022 03-24-2021 Chronic Calculus of urinary tract (8 sources) Kidney stone; 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: [Calculus of kidney] [...] sources) Long-term current use of insulin; 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: [prison (current) use of insulin] Episodic Other aftercare (1 source) 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 DIRECTOR USE ORAL HYPOGLYCEMIC DX] Onset: 01-27-2022 Episodic [...] 08-17-2022 BASO # 0.0 103/ul Normal 0.0-0.1 [facility] Comment on above: Performed By: #### C MP, TSH #### [facility] [address] [address] [address] Cipriano Simon Basophils/100 WBC (Bld) 0.8 % Normal 0.2-2.0 [facility] Comment on above: Performed By: #### C MP, TSH #### [facility] [address] [address] [address] Cipriano Simon EO # 0.1 103/ul Normal 0.0-0.7 [facility] Comment on above: Performed By: #### C MP, TSH #### [facility] [address] [place] [address] Dr. Cipriano Simon Eosinophils/100 WBC (Bld) 1.8 % Normal 0.9-7.0 [facility] Comment on above: Performed By: #### C MP, TSH #### [facility] [address] [place] [address] Dr. Cipriano Smion Erythrocyte distribution width (RBC) [Ratio] 12.8 % Normal 11.0-15.0 [facility] Comment on above: Performed By: #### C MP, TSH #### [facility] [address] [place] [address] Dr. Cipriano Simon Hematocrit (Bld) [Volume fraction] 46.3 % Normal 42.0-54.0 [facility] Comment on above: Performed By: #### C MP, TSH #### [facility] [address] [place] [address] Dr. Cipriano Simon Hemoglobin (Bld) [Mass/Vol] 15.8 g/dL Normal 14.0-18.0 [facility] Comment on above: Performed By: #### C MP, TSH #### [facility] [address] [place] [address] Dr. Cipriano Simon IG # 0.05 10e3/ul Critically high 0.00-0.03 [facility] Comment on above: Performed By: #### C MP, TSH #### [facility] [address] [place] [address] Dr. Cipriano Simon IG % 1.0 % Critically high 0.0-0.5 [facility] Comment on above: Performed By: #### C MP, TSH #### [facility] [address] [place] [address] Dr. Cipriano Simon LYMPH # 2.6 103/ul Normal 1.2-3.8 [facility] Comment on above: Performed By: #### C MP, TSH #### [facility] [address] [place] [address] Dr. Cipriano Simon Lymphocytes/100 WBC (Bld) 52.7 % Normal 20.5-60.0 [facility] Comment on above: Performed By: #### C MP, TSH #### [facility] [address] [place] [address] Dr. Cipriano Simon MANUAL DIFF REQ NO Normal [facility] Comment on above: Performed By: #### C MP, TSH #### [facility] [address] [place] [address] Dr. Cipriano Simon MCH (RBC) [Entitic mass] 29.0 pg Normal 25.9-34.0 [facility] Comment on above: Performed By: #### C MP, TSH #### [facility] [address] [place] [address] Dr. Cipriano Simon MCHC (RBC) [Mass/Vol] 34.1 g/dL Normal 29.9-35.2 [facility] Comment on above: Performed By: #### C MP, TSH #### [facility] [address] [place] [address] Dr. Cipriano Simon MCV (RBC) [Entitic vol] 85.0 fL Normal 80.0-94.0 [facility] Comment on above: Performed By: #### C MP, TSH #### [facility] [address] [place] [address] Dr. Cipriano Simon MONO # 0.4 103/ul Normal 0.3-0.8 [facility] Comment on above: Performed By: #### C MP, TSH #### [facility] [address] [place] [address] Dr. Cipriano Simon Monocytes/100 WBC (Bld) 7.2 % Normal 1.7-12.0 [facility] Comment on above: Performed By: #### C MP, TSH #### [facility] [address] [place] [address] Dr. Cipriano Simon NEUT # 1.8 103/ul Normal 1.4-6.5 [facility] Comment on above: Performed By: #### C MP, TSH #### [facility] [address] [place] [address] Dr. Cipriano Simon Neutrophils/100 WBC (Bld) 36.5 % Critically low 43.0-75.0 [facility] Comment on above: Performed By: #### C MP, TSH #### [facility] [address] [place] [address] Dr. Cipriano iSmon Platelet mean volume (Bld) [Entitic vol] 10.7 fL Normal 9.5-13.5 [facility] Comment on above: Performed By: #### C MP, TSH #### [facility] [address] [place] [address] Dr. Cipriano Simon PLT 214 103/ul Normal 150-450 [facility] Comment on above: Performed By: #### C MP, TSH #### [facility] [address] [place] [address] Dr. Cipriano Simon RBC 5.45 106/ul Normal 4.70-6.10 [facility] Comment on above: Performed By: #### C MP, TSH #### [facility] [address] [place] [address] Dr. Cipriano Simon WBC 5.0 103/ul Normal 4.0-11.0 [facility] Comment on above: Performed By: #### C MP, TSH #### [facility] [address] [place] [address] Dr. Cipriano Simon GLYCOHEMOGLOBIN A1Con 2022 ADA RECOMMENDATION SEE BELOW Normal [facility] Comment on above: Result Comment: ADA RECOMMENDED LIMIT 4.0 - 6.0 ADA THERAPEUTIC TARGET < 7.0 ACTION SUGGESTED > 7.0 Performed By: #### C MP, TSH #### [facility] [address] [place] [address] Dr. Cipriano Simon Glucose [Mass/Vol] 209 mg/dL Normal [facility] Comment on above: Performed By: #### C MP, TSH #### [facility] [address] [place] [address] Dr. Cipriano Simon HbA1c (Bld) [Mass fraction] 8.9 % Critically high 4.5-6.2 [facility] Comment on above: Performed By: #### C MP, TSH #### [facility] [address] [place] [address] Dr. Cipriano Simon MICROALBUMIN, RAND URon 03-0 mALB 1.8 mg/L Normal <=30.0 [facility] Comment on above: Performed By: #### M ALBR #### [facility] [address] [place] [address] Dr. Cipriano Simon PROF 14(COMP METB)on 023 Albumin [Mass/Vol] 4.1 g/dL Normal 3.4-5.0 [facility] Comment on above: Performed By: #### C MP, TSH #### [facility] [address] [place] [address] Dr. Cipriano Simon Albumin/Globulin [Mass ratio] 1.2 {ratio} Normal [facility] Comment on above: Performed By: #### C MP, TSH #### [facility] [address] [place] [address] Dr. Cipriano Simon ALP [Catalytic activity/Vol] 106 U/L Normal 46-116 [facility] Comment on above: Performed By: #### C MP, TSH #### [facility] [address] [place] [address] Dr. Cipriano Simon ALT [Catalytic activity/Vol] 42 U/L Normal 16-63 [facility] Comment on above: Performed By: #### C MP, TSH #### [facility] [address] [place] [address] Dr. Cipriano Simon Anion gap [Moles/Vol] 12.7 mmol/L Normal [facility] Comment on above: Performed By: #### C MP, TSH #### [facility] [address] [place] [address] Dr. Cipriano Simon AST [Catalytic activity/Vol] 15 U/L Normal 15-37 [facility] Comment on above: Performed By: #### C MP, TSH #### [facility] [address] [address] [address] Cipriano Simon Bilirubin [Mass/Vol] 0.5 mg/dL Normal 0.2-1.0 [facility] Comment on above: Performed By: #### C MP, TSH #### [facility] [address] [address] [address] Cipriano Simon Calcium [Mass/Vol] 8.9 mg/dL Normal 8.5-10.1 [facility] Comment on above: Performed By: #### C MP, TSH #### [facility] [address] [place] [address] Dr. Cipriano Simon Chloride [Moles/Vol] 101 mmol/L Normal 98-107 [facility] Comment on above: Performed By: #### C MP, TSH #### [facility] [address] [place] [address] Dr. Cipriano Simon CO2 [Moles/Vol] 29.1 mmol/L Normal 21.0-32.0 [facility] Comment on above: Performed By: #### C MP, TSH #### [facility] [address] [place] [address] Dr. Cipriano Simon Creatinine [Mass/Vol] 0.95 mg/dL Normal 0.70-1.30 [facility] Comment on above: Performed By: #### C MP, TSH #### [facility] [address] [place] [address] Dr. Cipriano Simon EGFR-AF DOMINICAN >60 Normal >=60 [facility] Comment on above: Performed By: #### C MP, TSH #### [facility] [address] [place] [address] Dr. Cipriano Simon EGFR-NON AF DOMINICAN >60 Normal >=60 [facility] Comment on above: Performed By: #### C MP, TSH #### [facility] [address] [place] [address] Dr. Cipriano Simon Globulin (S) [Mass/Vol] 3.5 g/dL Normal [facility] Comment on above: Performed By: #### C MP, TSH #### [facility] [address] [address] [address] Cipriano Simon Glucose [Mass/Vol] 256 mg/dL Critically high 74-106 [facility] Comment on above: Performed By: #### C MP, TSH #### [facility] [address] [place] [address] Dr. Cipriano Simon Potassium [Moles/Vol] 3.8 mmol/L Normal 3.5-5.1 [facility] Comment on above: Performed By: #### C MP, TSH #### [facility] [address] [place] [address] Dr. Cipriano Simon Protein [Mass/Vol] 7.6 g/dL Normal 6.4-8.2 [facility] Comment on above: Performed By: #### C MP, TSH #### [facility] [address] [place] [address] Dr. Cipriano Simon Sodium [Moles/Vol] 139 mmol/L Normal 136-145 [facility] Comment on above: Performed By: #### C MP, TSH #### [facility] [address] [place] [address] Dr. Cipriano Simon Urea nitrogen [Mass/Vol] 14.0 mg/dL Normal 7.0-18.0 [facility] Comment on above: Performed By: #### C MP, TSH #### [facility] [address] [place] [address] Dr. Cipriano Simon Urea nitrogen/Creatinine [Mass ratio] 14.7 mg/mg Normal [facility] Comment on above: Performed By: #### C MP, TSH #### [facility] [address] [place] [address] Dr. Cipriano Simon TSHon 08-17-2022 TSH 1.540 uIU/mL Normal 0.358-3.740 [facility] Comment on above: Performed By: #### C MP, TSH #### [facility] [address] [place] [address] Dr. Cipriano Simon RAD - MISCon 03-16-2022 RAD - MISC [id number] Normal [facility] TESTOSTERONE, TOTALon 2021 Testosterone [Mass/Vol] 906 ng/dL Normal 264-916 [facility] Comment on above: Result Comment: Adul t male reference interval is based on a population of healthy nonobese males (BMI <30) between 19 and 39 years old. Iban, et.al. JCEM 2017,102;2232-5817. PMID: [id number]. Performed By: #### C MP, TSH #### [facility] [address] [address] [address] Cipriano Simon GLYCOHEMOGLOBIN A1Con 2021 ADA RECOMMENDATION SEE BELOW Normal [facility] Comment on above: Result Comment: ADA RECOMMENDED LIMIT 4.0 - 6.0 ADA THERAPEUTIC TARGET < 7.0 ACTION SUGGESTED > 7.0 Performed By: #### A 1C #### [facility] [address] [address] [address] Cipriano Simon Glucose [Mass/Vol] 171 mg/dL Normal [facility] Comment on above: Performed By: #### A 1C #### [facility] [address] [address] [address] Cipriano Simon HbA1c (Bld) [Mass fraction] 7.6 % Critically high 4.5-6.2 [facility] Comment on above: Performed By: #### A 1C #### [facility] [address] [address] [address] Cipriano Simon XR KUB 1 VIEWon [...] CASE SANDY Date: 2022-03-15 08:36 Normal [facility] XR LSPINE 2_3 VIEWSon 2021 [...] CASE SANDY Date: 2022-03-15 08:44 Normal [facility] AMYLASEon 01-25-2022 Amylase [Catalytic activity/Vol] 55 U/L Normal 25-115 [facility] Comment on above: Performed By: #### C MP, LIPA, CMADM, RISSA #### [facility] [address] [address] [address] Cipriano Simon CARDIAC MELINDA ADMITon 022 CK [Catalytic activity/Vol] 76 U/L Normal 39-308 [facility] Comment on above: Performed By: #### C MP, LIPA, CMADM, RISSA #### [facility] [address] [address] [address] Cipriano Simon CK.MB [Mass/Vol] ng/mL Normal <=3.60 [facility] Comment on above: Performed By: #### C MP, LIPA, CMADM, RISSA #### [facility] [address] [address] [address] Cipriano Simon HSTROP 4.8 pg/mL Normal 4.0-76.1 [facility] Comment on above: Result Comment: CUT- OFF POINTS HAVE BEEN ESTABLISHED BASED ON THE FOURTH UNIVERSAL DEFINITIONS OF MYOCARDIAL INFARCTION. THE UPPER REFERENCE LIMIT (URL) OF TROPONIN, DEFINED THE 99TH PERCENTILE OF cTnI DISTRIBUTION IN A REFERENCE POPULATION, HAS BEEN CONFIRMED THE DECISION THRESHOLD FOR PR DIAGNOSIS. Performed By: #### C MP, LIPA, CMADM, RISSA #### [facility] [address] [place] [address] Dr. Cipriano Simon GEOVANNA 33 ng/mL Normal 16-96 [facility] Comment on above: Performed By: #### C MP, LIPA, CMADM, RISSA #### [facility] [address] [place] [address] Dr. Cipriano Simon CBC AUTO DIFFon 01-25-2022 BASO # 0.0 103/ul Normal 0.0-0.1 [facility] Comment on above: Performed By: #### A 1C #### [facility] [address] [place] [address] Dr. Cipriano Simon Basophils/100 WBC (Bld) 0.3 % Normal 0.2-2.0 [facility] Comment on above: Performed By: #### A 1C #### [facility] [address] [place] [address] Dr. Cipriano Simon EO # 0.1 103/ul Normal 0.0-0.7 [facility] Comment on above: Performed By: #### A 1C #### [facility] [address] [place] [address] Dr. Cipriano Simon Eosinophils/100 WBC (Bld) 1.7 % Normal 0.9-7.0 [facility] Comment on above: Performed By: #### A 1C #### [facility] [address] [place] [address] Dr. Cipriano Simon Erythrocyte distribution width (RBC) [Ratio] 12.7 % Normal 11.0-15.0 [facility] Comment on above: Performed By: #### A 1C #### [facility] [address] [place] [address] Dr. Cipriano Simon Hematocrit (Bld) [Volume fraction] 43.3 % Normal 42.0-54.0 [facility] Comment on above: Performed By: #### A 1C #### [facility] [address] [place] [address] Dr. Cipriano Simon Hemoglobin (Bld) [Mass/Vol] 15.1 g/dL Normal 14.0-18.0 [facility] Comment on above: Performed By: #### A 1C #### [facility] [address] [place] [address] Dr. Cipriano Simon IG # 0.04 10e3/ul Critically high 0.00-0.03 [facility] Comment on above: Performed By: #### A 1C #### [facility] [address] [place] [address] Dr. Cipriano Simon IG % 0.6 % Critically high 0.0-0.5 [facility] Comment on above: Performed By: #### A 1C #### [facility] [address] [place] [address] Dr. Cipriano Simon LYMPH # 2.9 103/ul Normal 1.2-3.8 [facility] Comment on above: Performed By: #### A 1C #### [facility] [address] [place] [address] Dr. Cipriano Simon Lymphocytes/100 WBC (Bld) 42.1 % Normal 20.5-60.0 [facility] Comment on above: Performed By: #### A 1C #### [facility] [address] [place] [address] Dr. Cipriano Simon MANUAL DIFF REQ NO Normal [facility] Comment on above: Performed By: #### A 1C #### [facility] [address] [place] [address] Dr. Cipriano Simon MCH (RBC) [Entitic mass] 29.5 pg Normal 25.9-34.0 [facility] Comment on above: Performed By: #### A 1C #### [facility] [address] [place] [address] Dr. Cipriano Simon MCHC (RBC) [Mass/Vol] 34.9 g/dL Normal 29.9-35.2 [facility] Comment on above: Performed By: #### A 1C #### [facility] [address] [place] [address] Dr. Cipriano Simon MCV (RBC) [Entitic vol] 84.7 fL Normal 80.0-94.0 [facility] Comment on above: Performed By: #### A 1C #### [facility] [address] [address] [address] Cipriano Simon MONO # 0.4 103/ul Normal 0.3-0.8 [facility] Comment on above: Performed By: #### A 1C #### [facility] [address] [place] [address] Dr. Cipriano Simon Monocytes/100 WBC (Bld) 5.5 % Normal 1.7-12.0 [facility] Comment on above: Performed By: #### A 1C #### [facility] [address] [place] [address] Dr. Cipriano Simon NEUT # 3.4 103/ul Normal 1.4-6.5 [facility] Comment on above: Performed By: #### A 1C #### [facility] [address] [place] [address] Dr. Cipriano Simon Neutrophils/100 WBC (Bld) 49.8 % Normal 43.0-75.0 [facility] Comment on above: Performed By: #### A 1C #### [facility] [address] [place] [address] Dr. Cipriano Simon Platelet mean volume (Bld) [Entitic vol] 9.4 fL Critically low 9.5-13.5 [facility] Comment on above: Performed By: #### A 1C #### [facility] [address] [place] [address] Dr. Cipriano Simon PLT 238 103/ul Normal 150-450 [facility] Comment on above: Performed By: #### A 1C #### [facility] [address] [place] [address] Dr. Cipriano Simon RBC 5.11 106/ul Normal 4.70-6.10 [facility] Comment on above: Performed By: #### A 1C #### [facility] [address] [place] [address] Dr. Cipriano Simon WBC 6.9 103/ul Normal 4.0-11.0 [facility] Comment on above: Performed By: #### A 1C #### [facility] [address] [place] [address] Dr. Cipriano Simon LACTATE/LACTIC ACIDon 2021 Lactate [Moles/Vol] 1.2 mmol/L Normal 0.4-1.9 [facility] Comment on above: Performed By: #### A 1C #### [facility] [address] [place] [address] Dr. Cipriano Simon LIPASEon 01-25-2022 Lipase [Catalytic activity/Vol] 89.0 U/L Normal 73.0-393.0 [facility] Comment on above: Performed By: #### C MP, LIPA, CMADM, RISSA #### [facility] [address] [place] [address] Dr. Cipriano Simon PROF 14(COMP METB)on 022 Albumin [Mass/Vol] 3.8 g/dL Normal 3.4-5.0 [facility] Comment on above: Performed By: #### C MP, LIPA, CMADM, RISSA #### [facility] [address] [place] [address] Dr. Cipriano Simon Albumin/Globulin [Mass ratio] 1.1 {ratio} Normal [facility] Comment on above: Performed By: #### C MP, LIPA, CMADM, RISSA #### [facility] [address] [place] [address] Dr. Cipriano Simon ALP [Catalytic activity/Vol] 111 U/L Normal 46-116 [facility] Comment on above: Performed By: #### C MP, LIPA, CMADM, RISSA #### [facility] [address] [place] [address] Dr. Cipriano Simon ALT [Catalytic activity/Vol] 41 U/L Normal 16-63 [facility] Comment on above: Performed By: #### C MP, LIPA, CMADM, RISSA #### [facility] [address] [place] [address] Dr. Cipriano Simon Anion gap [Moles/Vol] 11.5 mmol/L Normal [facility] Comment on above: Performed By: #### C MP, LIPA, CMADM, RISSA #### [facility] [address] [place] [address] Dr. Cipriano Simon AST [Catalytic activity/Vol] 16 U/L Normal 15-37 [facility] Comment on above: Performed By: #### C MP, LIPA, CMADM, RISSA #### [facility] [address] [place] [address] Dr. Cipriano Simon Bilirubin [Mass/Vol] 0.5 mg/dL Normal 0.2-1.0 [facility] Comment on above: Performed By: #### C MP, LIPA, CMADM, RISSA #### [facility] [facility] [address] [place] [address] Dr. Cipriano Simon Calcium [Mass/Vol] 9.0 mg/dL Normal 8.5-10.1 [facility] Comment on above: Performed By: #### C MP, LIPA, CMADM, RISSA #### [facility] [address] [place] [address] Dr. Cipriano Simon Chloride [Moles/Vol] 101 mmol/L Normal 98-107 [facility] Comment on above: Performed By: #### C MP, LIPA, CMADM, RISSA #### [facility] [address] [place] [address] Dr. Cipriano Simon CO2 [Moles/Vol] 26.1 mmol/L Normal 21.0-32.0 [facility] Comment on above: Performed By: #### C MP, LIPA, CMADM, RISSA #### [facility] [address] [place] [address] Dr. Cipriano Simon Creatinine [Mass/Vol] 0.84 mg/dL Normal 0.70-1.30 [facility] Comment on above: Performed By: #### C MP, LIPA, CMADM, RISSA #### [facility] [address] [place] [address] Dr. Cipriano Simon EGFR-AF DOMINICAN >60 Normal >=60 [facility] Comment on above: Performed By: #### C MP, LIPA, CMADM, RISSA #### [facility] [address] [place] [address] Dr. Cipriano Simon EGFR-NON AF DOMINICAN >60 Normal >=60 [facility] Comment on above: Performed By: #### C MP, LIPA, CMADM, RISSA #### [facility] [address] [address] [address] Cipriano Simon Globulin (S) [Mass/Vol] 3.4 g/dL Normal [facility] Comment on above: Performed By: #### C MP, LIPA, CMADM, RISSA #### [facility] [address] [address] [address] Cipriano Simon Glucose [Mass/Vol] 245 mg/dL Critically high 74-106 [facility] Comment on above: Performed By: #### C MP, LIPA, CMADM, RISSA #### [facility] [address] [place] [address] Dr. Cipriano Simon Potassium [Moles/Vol] 3.6 mmol/L Normal 3.5-5.1 [facility] Comment on above: Performed By: #### C MP, LIPA, CMADM, RISSA #### [facility] [address] [address] [address] Cipriano Simon Protein [Mass/Vol] 7.2 g/dL Normal 6.4-8.2 [facility] Comment on above: Performed By: #### C MP, LIPA, CMADM, RISSA #### [facility] [address] [place] [address] Dr. Cipriano Simon Sodium [Moles/Vol] 135 mmol/L Critically low 136-145 [facility] Comment on above: Performed By: #### C MP, LIPA, CMADM, RISSA #### [facility] [address] [address] [address] Cipriano Simon Urea nitrogen [Mass/Vol] 13.0 mg/dL Normal 7.0-18.0 [facility] Comment on above: Performed By: #### C MP, LIPA, CMADM, RISSA #### [facility] [address] [address] [address] Cipriano Simon Urea nitrogen/Creatinine [Mass ratio] 15.5 mg/mg Normal [facility] Comment on above: Performed By: #### C MP, LIPA, CMADM, RISSA #### [facility] [address] [place] [address] Dr. Cipriano Simon XR ABD FLAT UP_PA [...] BRIA [place] Date: 2022-01-25 02:00 Normal [facility] CBC AUTO DIFFon 12-21-2021 BASO # 0.0 103/ul Normal 0.0-0.1 [facility] Comment on above: Performed By: #### C MP, TSH #### [facility] [address] [place] [address] Dr. Cipriano Simon Basophils/100 WBC (Bld) 0.5 % Normal 0.2-2.0 [facility] Comment on above: Performed By: #### C MP, TSH #### [facility] [address] [address] [address] Cipriano Simon EO # 0.2 103/ul Normal 0.0-0.7 [facility] Comment on above: Performed By: #### C MP, TSH #### [facility] [address] [place] [address] Dr. Cipriano Simon Eosinophils/100 WBC (Bld) 2.9 % Normal 0.9-7.0 [facility] Comment on above: Performed By: #### C MP, TSH #### [facility] [address] [place] [address] Dr. Cipriano Simon Erythrocyte distribution width (RBC) [Ratio] 13.0 % Normal 11.0-15.0 [facility] Comment on above: Performed By: #### C MP, TSH #### [facility] [address] [place] [address] Dr. Cipriano Simon Hematocrit (Bld) [Volume fraction] 44.9 % Normal 42.0-54.0 [facility] Comment on above: Performed By: #### C MP, TSH #### [facility] [address] [place] [address] Dr. Cipriano Simon Hemoglobin (Bld) [Mass/Vol] 15.7 g/dL Normal 14.0-18.0 [facility] Comment on above: Performed By: #### C MP, TSH #### [facility] [address] [place] [address] Dr. Cipriano Simon IG # 0.03 10e3/ul Normal 0.00-0.03 [facility] Comment on above: Performed By: #### C MP, TSH #### [facility] [address] [place] [address] Dr. Cipriano Simon IG % 0.5 % Normal 0.0-0.5 [facility] Comment on above: Performed By: #### C MP, TSH #### [facility] [address] [place] [address] Dr. Cipriano Simon LYMPH # 2.6 103/ul Normal 1.2-3.8 [facility] Comment on above: Performed By: #### C MP, TSH #### [facility] [address] [place] [address] Dr. Cipriano Simon Lymphocytes/100 WBC (Bld) 44.6 % Normal 20.5-60.0 [facility] Comment on above: Performed By: #### C MP, TSH #### [facility] [address] [place] [address] Dr. Cipriano Simon MANUAL DIFF REQ NO Normal [facility] Comment on above: Performed By: #### C MP, TSH #### [facility] [address] [place] [address] Dr. Cipriano Simon MCH (RBC) [Entitic mass] 29.7 pg Normal 25.9-34.0 [facility] Comment on above: Performed By: #### C MP, TSH #### [facility] [address] [place] [address] Dr. Cipriano Simon MCHC (RBC) [Mass/Vol] 35.0 g/dL Normal 29.9-35.2 [facility] Comment on above: Performed By: #### C MP, TSH #### [facility] [address] [place] [address] Dr. Cipriano Simon MCV (RBC) [Entitic vol] 84.9 fL Normal 80.0-94.0 [facility] Comment on above: Performed By: #### C MP, TSH #### [facility] [address] [place] [address] Dr. Cipriano Simon MONO # 0.4 103/ul Normal 0.3-0.8 [facility] Comment on above: Performed By: #### C MP, TSH #### [facility] [address] [place] [address] Dr. Cipriano Simon Monocytes/100 WBC (Bld) 7.0 % Normal 1.7-12.0 [facility] Comment on above: Performed By: #### C MP, TSH #### [facility] [address] [place] [address] Dr. Cipriano Simon NEUT # 2.6 103/ul Normal 1.4-6.5 [facility] Comment on above: Performed By: #### C MP, TSH #### [facility] [address] [place] [address] Dr. Cipriano Simon Neutrophils/100 WBC (Bld) 44.5 % Normal 43.0-75.0 [facility] Comment on above: Performed By: #### C MP, TSH #### [facility] [address] [place] [address] Dr. Cipriano Simon Platelet mean volume (Bld) [Entitic vol] 9.3 fL Critically low 9.5-13.5 [facility] Comment on above: Performed By: #### C MP, TSH #### [facility] [address] [place] [address] Dr. Cipriano Simon PLT 215 103/ul Normal 150-450 [facility] Comment on above: Performed By: #### C MP, TSH #### [facility] [address] [place] [address] Dr. Cipriano Simon RBC 5.29 106/ul Normal 4.70-6.10 [facility] Comment on above: Performed By: #### C MP, TSH #### [facility] [address] [place] [address] Dr. Cipriano Simon WBC 5.9 103/ul Normal 4.0-11.0 [facility] Comment on above: Performed By: #### C MP, TSH #### [facility] [address] [place] [address] Dr. Cipriano Simon GLYCOHEMOGLOBIN A1Con 2021 ADA RECOMMENDATION SEE BELOW Normal [facility] Comment on above: Result Comment: ADA RECOMMENDED LIMIT 4.0 - 6.0 ADA THERAPEUTIC TARGET < 7.0 ACTION SUGGESTED > 7.0 Performed By: #### A 1C #### [facility] [address] [place] [address] Dr. Cipriano Simon Glucose [Mass/Vol] 169 mg/dL Normal [facility] Comment on above: Performed By: #### A 1C #### [facility] [address] [place] [address] Dr. Cipriano Simon HbA1c (Bld) [Mass fraction] 7.5 % Critically high 4.5-6.2 [facility] Comment on above: Performed By: #### A 1C #### [facility] [address] [place] [address] Dr. Cipriano Simon LIPID PROFILEon 12-21-2021 CHOL-HDL RATIO NORM SEE BELOW Normal [facility] Comment on above: Result Comment: 3.3 - 4.4 LOW RISK 4.4 - 7.1 AVERAGE RISK 7.1 - 11.0 MODERATE RISK >11.0 HIGH RISK Performed By: #### C MP, TSH #### [facility] [address] [address] [address] Cipriano Simon Cholesterol [Mass/Vol] 185 mg/dL Normal <=200 [facility] Comment on above: Performed By: #### C MP, TSH #### [facility] [address] [address] [address] Cipriano Simon Cholesterol in HDL [Mass/Vol] 39 mg/dL Critically low 40-60 [facility] Comment on above: Performed By: #### C MP, TSH #### [facility] [address] [address] [address] Cipriano Simon Cholesterol in LDL [Mass/Vol] 99.2 mg/dL Normal [facility] Comment on above: Performed By: #### C MP, TSH #### [facility] [address] [address] [address] Cipriano Simon Cholesterol.total/Ch olesterol in HDL [Mass ratio] 4.7 {ratio} Normal [facility] Comment on above: Performed By: #### C MP, TSH #### [facility] [address] [address] [address] Cipriano Simon HDL NORMAL > or = 60 mg/dl - LO W CARDIOVASCULAR RISK <40 mg/dl - HIGH CARDIOVASCULAR RISK Normal [facility] Comment on above: Performed By: #### C MP, TSH #### [facility] [address] [address] [address] Cipriano Simon LDL CALC NORMAL SEE BELOW Normal [facility] Comment on above: Result Comment: <100 mg/dl OPTIMAL 100 - 129 mg/dl NEAR OR ABOVE OPTIMAL 130 - 159 mg/dl BORDERLINE HIGH 160 - 189 mg/dl HIGH >190 mg/dl VERY HIGH Performed By: #### C MP, TSH #### [facility] [address] [place] [address] Dr. Cipriano Simon Triglyceride [Mass/Vol] 234 mg/dL Critically high <=150 [facility] Comment on above: Performed By: #### C MP, TSH #### [facility] [address] [place] [address] Dr. Cipriano Simon VLDL CALC 46.8 mg/dL Normal [facility] Comment on above: Performed By: #### C MP, TSH #### [facility] [address] [place] [address] Dr. Cipriano Simon MICROALBUMIN, RAND URon - mALB <1.3 Normal <=30.0 [facility] Comment on above: Performed By: #### M ALBR #### [facility] [address] [place] [address] Dr. Cipriano Simon PROF 14(COMP METB)on 022 Albumin [Mass/Vol] 3.9 g/dL Normal 3.4-5.0 [facility] Comment on above: Performed By: #### C MP, TSH #### [facility] [address] [place] [address] Dr. Cipriano Simon Albumin/Globulin [Mass ratio] 1.1 {ratio} Normal [facility] Comment on above: Performed By: #### C MP, TSH #### [facility] [address] [place] [address] Dr. Cipriano Simon ALP [Catalytic activity/Vol] 96 U/L Normal 46-116 [facility] Comment on above: Performed By: #### C MP, TSH #### [facility] [address] [place] [address] Dr. Cipriano Simon ALT [Catalytic activity/Vol] 51 U/L Normal 16-63 [facility] Comment on above: Performed By: #### C MP, TSH #### [facility] [address] [place] [address] Dr. Cipriano Simon Anion gap [Moles/Vol] 13.4 mmol/L Normal [facility] Comment on above: Performed By: #### C MP, TSH #### [facility] [address] [place] [address] Dr. Cipriano Simon AST [Catalytic activity/Vol] 15 U/L Normal 15-37 [facility] Comment on above: Performed By: #### C MP, TSH #### [facility] [address] [place] [address] Dr. Cipriano Simon Bilirubin [Mass/Vol] 0.8 mg/dL Normal 0.2-1.0 [facility] Comment on above: Performed By: #### C MP, TSH #### [facility] [address] [place] [address] Dr. Cipriano Simon Calcium [Mass/Vol] 8.8 mg/dL Normal 8.5-10.1 [facility] Comment on above: Performed By: #### C MP, TSH #### [facility] [address] [place] [address] Dr. Cipriano Simon Chloride [Moles/Vol] 105 mmol/L Normal 98-107 [facility] Comment on above: Performed By: #### C MP, TSH #### [facility] [address] [place] [address] Dr. Cipriano Simon CO2 [Moles/Vol] 25.4 mmol/L Normal 21.0-32.0 [facility] Comment on above: Performed By: #### C MP, TSH #### [facility] [address] [place] [address] Dr. Cipriano Simon Creatinine [Mass/Vol] 0.91 mg/dL Normal 0.70-1.30 [facility] Comment on above: Performed By: #### C MP, TSH #### [facility] [address] [place] [address] Dr. Cipriano Simon EGFR-AF DOMINICAN >60 Normal >=60 [facility] Comment on above: Performed By: #### C MP, TSH #### [facility] [address] [place] [address] Dr. Cipriano Simon EGFR-NON AF DOMINICAN >60 Normal >=60 [facility] Comment on above: Performed By: #### C MP, TSH #### [facility] [address] [place] [address] Dr. Cipriano Simon Globulin (S) [Mass/Vol] 3.6 g/dL Normal [facility] Comment on above: Performed By: #### C MP, TSH #### [facility] [address] [place] [address] Dr. Cipriano Simon Glucose [Mass/Vol] 198 mg/dL Critically high 74-106 [facility] Comment on above: Performed By: #### C MP, TSH #### [facility] [address] [place] [address] Dr. Cipriano Simon Potassium [Moles/Vol] 3.8 mmol/L Normal 3.5-5.1 [facility] Comment on above: Performed By: #### C MP, TSH #### [facility] [address] [place] [address] Dr. Cipriano Simon Protein [Mass/Vol] 7.5 g/dL Normal 6.4-8.2 [facility] Comment on above: Performed By: #### C MP, TSH #### [facility] [address] [place] [address] Dr. Cipriano Simon Sodium [Moles/Vol] 140 mmol/L Normal 136-145 [facility] Comment on above: Performed By: #### C MP, TSH #### [facility] [address] [place] [address] Dr. Cipriano Simon Urea nitrogen [Mass/Vol] 13.0 mg/dL Normal 7.0-18.0 [facility] Comment on above: Performed By: #### C MP, TSH #### [facility] [address] [place] [address] Dr. Cipriano Simon Urea nitrogen/Creatinine [Mass ratio] 14.3 mg/mg Normal [facility] Comment on above: Performed By: #### C MP, TSH #### [facility] [address] [place] [address] Dr. Cipriano Simon VITAMIN B12on 12-21-2021 Cobalamin (Vitamin B12) [Mass/Vol] 647.0 pg/mL Normal 193.0-986.0 [facility] Comment on above: Performed By: #### C MP, TSH #### [facility] [address] [place] [address] Dr. Cipriano Simon Ambulatory Visit Summaryon 0 11-09-2021 Ambulatory Visit Summary RIC BERRY :1960 Visit Date:11/09/2021 Ambulatory Visit Instructions Your Diagnosis Kidney stone Tests Performed Urnls Dip Stick Auto w/o Microscopy POC 49144 XR Abdomen 1 View -- Results Pending -- Please visit your patient portal for your results or contact your primary care physician. Your Care Team Attending Physician - Elan Peterson MD, Lino Goodson Primary Care Physician - CHRISTOPHER WU DO This Is Your Medications List Contact [...] Comments: w/kub Where: [facility] [address], [place] [address]- Medications What How Much When Instructions Unchanged [...] Urnls Dip Stick Auto w/o Microscopy POC 76941 (11/09/2021) Bilirubin Urine Dipstick - Negative Blood Urine Dipstick - Negative Glucose Urine Dipstick - 3+ 1000 mg/dl Ketones Urine Dipstick - Trace - 5 mg/dl Leukocytes Urine Dipstick - Negative Nitrite Urine Dipstick - Negative Protein Urine Dipstick - Negative Specific Bixby Urine Dipstick - 1.020 Urine Appearance Urine [...] usuall (more content not included)... Normal [facility] Patient Educationon 11-10-19 Patient Education [...] these instructions at home: Medicines ? Take bpaq-cml-hjlmdpi and prescription medicines only as told by [...] 11/14/2008 Document Revised: 10/15/2019 Document Reviewed: 10/15/2019 [employer] Patient Education ? 2019 [employer]. [facility] Office/Clinic Noteon 11-09-2021 Urology Office/Clinic [...] Urnls Dip Stick Auto w/o Microscopy POC 87553 Urnls Dip Stick Auto w/o Microscopy POC 51489 XR Abdomen 1 View XR Abdomen 1 View Follow-up With When Contact Information Elan Peterson MD, Lino Goodson, URO In 6 months 05/12/2022 [facility] [address] [place] [address]- Additional Instructions: w/kub Patient Education Kidney Stones, [id number] Grace Elizabeth personally scribed for Dr. Ansari [...] Hip replac (more content not included)... Normal [facility] Comment on above: Result Comment: Elec tronically Signed By: Lino Ansari Jr., MD\.br\Date and Time Signed: 11/09/21 09:52 EDT\.br\Electronically Co-Signed By: Grace Marin MA\.br\Date and Time Co-Signed: 11/09/21 09:47 EDT GLYCOHEMOGLOBIN A1Con 2021 ADA RECOMMENDATION ADA THERAPEUTIC TARG ET 6.0 - 7.0 ACTION SUGGESTED > 7.0 Normal [facility] Comment on above: Performed By: #### C MP, TSH #### [facility] [address] [address] [address] Cipriano Simon Glucose [Mass/Vol] 148 mg/dL Normal [facility] Comment on above: Performed By: #### C MP, TSH #### [facility] [address] [id number] Cipriano Simon HbA1c (Bld) [Mass fraction] 6.8 % Critically high <=6.0 [facility] Comment on above: Performed By: #### C MP, TSH #### [facility] [address] [address] [address] Cipriano Simon Formson 04-08-2021 Forms [id number]#[id number] 0CD:127 Normal [facility] Coding Summary.on 04-07-2021 Coding Summary. CD:[id number] Gh 0bWw+PGhlYWQ+YH8WPUXpK 45gvOBwsL0UK4jEUQ6TAHK VPOOTVR0EWD7rbEX5FPkzI 2VybiAv IomhtLPwYD48OPo4VAW9gQ jrPYloaW4akUDfK0z7TtIw KO94aT21TCfcBTCiPwW4Rh ZpbjsgbWFy T3qkWdRqiMOiUnh+PHRhYm xlIHdpZHRoPScxMDAlJyBz aEglEI1tDi1fVXGvNPGlnA xhcHNlOiBj a4wlXWUzORqyFQ4zxStzT2 MjkFT6ZIIqn6w7Hg00tPI+ GNQjBDB6oUcxDOhoz812Ga Wsm9opPTZ4 qHDpDHzlXAM3D72ug3C4UQ VkDNPvGNQ9yOE0zP1xnWof gicmI0WzlJCvMfW4EKE4gN PrnS7dsQse tzpksR8pXef+L71SGQ9DNE IOME6NKok9S9FvDgmxdKI+ NJ46KAXfBC39jTGdzYRjg6 cfuZp0JjMw LZRmNIJ2kGefLKnpj6OaZX CzB73yxVXoq1T6LNRzbVgb aOMnSbFgsAI2rN0mURtqij qrh5glrqgy Tufif0nckj97wZ20X97uMK gmKOUpQOD9IUIlHWSgwKbq vh8diD3cGs6+AEeng1fvj2 qnvBl5TfQa QSHuscLpmDywUIT4l2GrVo 36E7XnuHqsl2IfJka8md15 zLNnl7K9iYR4IOnuJHXjeM 7nOCmdObT2 IALmSfCtmY05gVXpBZdpJb 2caMpfzQmfGL8mXQRputoc EZUtyE5pCBHotVCowFpxJK 4wNTBpbjtm o834EbWnRXH5XQKfaCQgF4 AtmW2oHzRqYQNvYYLxM0Rx dLYtIXseO352PItmZhI8KU PtedGxJ9Vl PLPraYutYbI8f8Z0Il9Jd0 McuvpnCFS1TZmlYNKwPoE3 JgTyTdY1H8NiNwv0KVLbaY hxNS6iG3Jb YZHislybrrohkWU5LASlEL ZioI82eVOsEHmrJl6ei5M6 a994FVLmPGOzuZ46Ws9alL ogMTBwdCBU gR5jloppw0rmpsnsJwSaQW ZwZFu3KBo8JKQuhXzuAqMu OIM4DvI6ICS2hKKxjR2zoY bvvlcriA0q Oyc+J15wkJ7sQQJ9VLL9xn zdXJHqppPjJK16CL92H2Ml PjwvdGFibGU+PGRpdiBzdH fsMD7tYcGi a1jqn0TcIQqgA9YeTLXdKE erTle4FMWkMLJ4wBB7rC8f QUVdHDhzq5H7wBU4K2Yomx Lhbk5ge6sh UAMeJRbkQ88cbKVgl7X5RK OfqRH1ZZGhcIwnDpNcrA48 Oyc+BLUqoLcar5TkNswvs8 jig2oyqSj3 ErDnQTVkmwBeuJlcFYL1w1 VqRg08P27wMBunMUDdOKTm YOClLBQljZgzxm6mkI6vOu 8+PGNvbCB3 mKP7pI6cFYQqAfV8DMuwT6 77WhKsnNJiQkail3lyn1zw lGy1LsSgWLOisqWcgZrsPP U3c5XrKh64 Y28tLTudJORwXULyZZZxDI FkhSkjsz2hqE3jEm7+PC9j w0mbag19mB88yUB+PHRkIH S7zRhgLNeu INEjuX6yFCffRxX1CWQfTq AghJ45eZWzHOhpLk5vbOes rCixNU1rHBSjztbkm610Bx Jfh1jwZHFm nTKvDZjjEHX4R38fn9O0KZ JjMBPjHRJ1wFG2tV5udAfs bjogbGVmdDsgdmVydGljYW cgOVbzM160 IHRvcDsnPlBhdGllbnQgTm JqEUk2N3CnQry6LYUbcGgu LO5wuEXwKCytIw9fyAqohW nnSB6rHOSp okwlf405ZrEwd1jqISKlhV HlJYknHFT9D18hc3Y7LALt QBPiJIK7iJO2sT1amMstlq ogbGVmdDsg ioDppNotVJjrOXpfN962PM RvcDsnPkJpcnRoIERhdGU6 WW02EB35zNCvy5W7rPE7N5 BhZGRpbmct ggkqlTA4CSVbYTGovR89Vg 3ufCtvLu8uLTSqWRX0VXBp kELnE5KtdG8cTdJdHHUtON EaH1HlkOAa VNtyD329FQuqApI7DBVctn GaT5ZfIYBlgFkuGgT3i1Z5 Ej6CO5J1TQ41DX62wMDed0 U4oQJ7Z5Pb MAHzyriueehpcEW9DQQgTC DddB80Ip1inFazLz2jQSCe IHE8UOGbsOTrS0IocD6jJk AjMDAwMDAw R9YbmDOhDIchO417EBztSv A1XHSrlhXlI2JvJLZltYas JgM8w7P7Cr5TSMf0OV07BS 35fSJyh4L7 oYF2K8AmILMjhfoszxtskR U4ZDYzAPYweP54Ux4vzDth Qz6pLWMhLLO2XSJtvOMaZ0 BehQ0tJjFw XQFzAAXvE4AkpCKyLRdeB0 25BNhbRiY1MDDvwxRdR0Jd CGPwiWaoGsJ4o5J1Nx8VAH VaUT40KIU4 uDX9RJ20YZ53H3UnMzbpgQ FibGU+PHRhYmxlIHdpZHRo QFikOPRvLnJubEbhVY5gYy 9yZGVyLWNv eRxxhMHkGdThw1jaXBMwWP riLK7enFptQ2RmzLB6PXTh n9w0Dl82C76yQ2RzuVQ+PG DyzNV0wAV8 qE9dDzTvOxR1LNjaB321El LvaZHhMsiwo7vbk5czxFy1 GsQ3VWNodnOjfUmdKGN3h9 AoUo99Z82j IHdpZHRoPSIxNSUiIHZhbG parn8bvW8nEs8+PGNvbCB3 pVV9hQ8wTaYqVjW8HEdqQ1 49InRvcCIv Yemce8fgb3lgwIy9IkGqFV UwgtZbeBvmRTR5k8PeSh15 Z6EezYaic9VtHsr2fz98oH Qve8K1qEF6 H0KhHTAabxmjvJSiaTaxMV 7rHTMaoebcBDOhjW8mZRAh A3l8WoNkTbG5TWvnS8Zway M6PFBxxXEb RLocYNH1E77fw1K9VBIsWH ClEKF2wSP4gA5ykSledzrb bGVmdDsgdmVydGljYWwtYW fzO969PDUg iEchLXRkcI7oSZKotAKweN ywAR3qUVHotvbeXm8OFB6t XPnUGFwTUlz6F9ZrSfj1GK IljJjiAL6b jKJdKZflHx4ceAqsnKlpHO 7eZKSdlzceTSQpxJ4dFXPg iAAkiBqmCU6kZBMycczlb2 80MqGqRQX4 RHIexLJgZ5NbsC2aGxUmQP GnJQDuO1ObfZFnNFxzF015 EBstArQ5NPLtvyMbA4CpAD FsaWduOiB0 n3M1If8jQw2aVe4pMTRpFR 20KF28xZIka9B3dOR8K4Ko MNUbdpclaralkTB7WKGqNW TrqP22uQXc LIiuFv3qy2S1g977IXLxOX YfoH24Ra7qkNndLEYnyJNF wQ4jgfqal3havtjhPdMqTX GyRTs4NMf9 MFSzxOnoPkNnWOF0BoO8NK T1kKBxwM6juPwhypfmxX5r Oyc+SVgrVGGqilK2J5ZqCa e0FGAhaWpb IZ1eoEDgMQtiEm8qxFzalX wwJJ7rKVNwczbsTNAiuS2c NNNhgDPnrDpbXL7dUJAlnd syi740TrTs OTI2YVCgbKDeR1GxmY0lDq KlGPSuZKZtA7ClgXAvGTmb Z061ZCffDtN9PQZcqwXgD7 FsLWFsaWdu GeE0l2J9Nz5QHNudDQ67IY 67mFImn1J5lEZ2N4DqGZOb feulkzpdxWP9XXIuETYerU 47cGFkZGlu Yt3hn4A3u666IBUkAITnbN 32Ga0liFduMSZcaVDMeB7o wotgm5xuvbisCvLoPFGxEN o6BMe7TSWg oMhvZyEzFGQ2CgE1SCO2xX FguQ1pdEpzmcivdO2fTxq+ L7K2dTP6lJEfySkwhIR+PC 16fb37C2Zs SyrdCft3KZGuSUY1nSW5xH 2wBPOeIItam6J8hUR3K0Ac qiRceg0ts2xsATRcDMlnJ6 7hrWRoj9H5 JSEjxLF9JRIfuMwcWzKfeV 93Oyc+DXNapVtug1UuNano i3bqf6gfrOe9BnKzWGYsiq FsaWduPSJ0 b1PcCd92T83dUQpqYWYmDF FbNRZhJRZudMqwoe8geQ2q Ii8+XSBogJP4bYZ6vZ1rFu UlYhB3ZCdd G947LpDauXUsLozpu2lxd8 qadNh6LtFcDXTgdpEmlFrp WLN7p2QvLv39Z1BasAmgg5 HyJxr4pv61 oFVnr5W9dWX8F6ImZHNjbh shnIRmjPciZX0gCCLsiueg EDThpW0cDUCiX3j4IfWoDc V7HQqoD4At atS3IBYsvSTkELDblWFMiT 6syngts3dyobbaSjJoDBDg ATy0NOi4XDCckTxySaMyVP S7CbZ6YER1 gKPhlN9laVijugfszZ1dGd c+CZy9v0iijIRiOJ4nqEK8 PR18IZ54sTTiy0P3kYB3S7 BhZGRpbmct zbbwiGA6SHUfLZIcvZ92Ot 0huCkhXw4sWHExTKR0BVSs nTUfL6GjtV0aTzWrQBGuHT KxZ6CglJRx QXvkS664EBqzPxL0OLUhyv WgZ6ZsGODuaHhgPxH6d0S4 Fm7NNX44IM85FA84iKQxc7 J8jWQ1D7Nk ZVKcjjpvkjtibIY2ZYIjWS CzwN69Aw5ahBwvIa3iGYWh HRY4TUMvwKQtR7DbvI8dRx AjMDAwMDAw W2WxjWWpQHcuF396SBrfOr D3FUApydMcD0VkDYNlcKlk PlH3r4Z7Py7PQl18OV66DS 87uGZjw5X0 lRC0M2YqKZUkbsxabjgdkF I1RUBhCQNifI03Py3isEwt Lu1gTWIvLQF2OOLpmLMdY8 JbcR9gTiPu MGVsONApR5SvsMEnXMrgD8 82ZFajYeI3IBDynfZyF3Au FVSjfTayDvL2i4N4Hx5ECB zudsq7A2Hw PjwvdHI+HI91LOHyTR35zK EauAOeo5xkrPk4MhBkEJXd HPG7aUqsJYopn3QoHZUtI0 7wmSPlo5K9 IGNv (more content not included)... [facility] Consent for Procedure/Surger yon 04-06-2021 Consent for Procedure/Surgery [id number]#1. 00CD:127 [facility] IntraOperative Documentson 1 IntraOperative Documents [id number]#1. 00CD:127 [facility] Pre-Certification Formon Pre-Certification Form [id number]#1.0 0CD:127 [facility] Coding Summary.on 04-02-2021 Coding Summary. CD:[id number] Gh 0bWw+PGhlYWQ+OI6PLJAqF 09zvVWptQ3RT6eCVZ6SQTP DZIIOWW3ISN5glAO1SAygH 2VybiAv PuwntZPbCW54FLd7FXF2zM trFRxjcV6bcAFeE9c6XhOt NC94vE79UWtqZUPdYyA6Hh ZpbjsgbWFy D9mvRmVhzVSdNmx+PHRhYm xlIHdpZHRoPScxMDAlJyBz oRhtVF6cYn1sFPPqWZHyxG xhcHNlOiBj p6uuREPsWDbtMT3ukAmiV8 YlzIQ5ZACpb9g3Qc24uNC+ ZLYpUDI3pKepKLssw452Wk Zpf2zgJON5 lBRtWSeqWPZ7E45ij7M1GC AuLPVxGBM6jGG1pU5ahKrq snoeM9IepZZoOcX8TCP7hK MmnM1blUsh ydjimX1uBoo+R37OUR3MMK NZEI2KNke9U6GcAwtxcQX+ ME53URIfDW09kTXvaPIon5 plaIx3EvZx DVEeQJO3yYebXRjmn2IsBW CnI48ofDJhk5L7IOQldYgk mNHbFrLqxFA9pF4wMQfrfy tyt0rosksm Ncwfb4hixu43mF59C01oHN idFUUiVPY6IJTmIUXwmGmm au1ttW9xGx3+WUrim3igk9 ipkRt6QeYj KECenoLfwKibEVB1e6DfQl 09A9RpyApfz2JhIiy6rm48 aMPrh0Y7tGG1MHgvYQTukE 4uJQzbUvX3 SCSjBtIvjQ75xUKtIOkzUl 6pzDavxJxaYX3pMSNxfvwh NZTznH8mIVFflLSdlEfiDW 4wNTBpbjtm g297ZoJeWUP6OOTrdBJaA6 WnlD6pSxWdCIMsRDOjP4Je sYFtZFzfR999LCjbXnN3HF EynbYiH7Sp LYIdrLuySbK3h3N1Mf9Np0 YxrnxrQZK4JCobAWDrUoSv TpMsPtT6P3NoZjt5CJTbuV xoLT0jJ5Iv SDBxdjkiaimceEL6CGCrHH VqzQ22gUZnQOvrRs0km8H0 o992DESoJJNkmY87Iu2vzS ogMTBwdCBU aV9zxvahi9fxyfklBvLhQE CxNPt9GCy8YBByiHutUgKu ICZ2JfL1ASE5lAPrjM9iwM gbbbzloB2p Oyc+K39zpA6cAAZ6VFZ3pc ykHDYthdGjTT51ZW05K6Oy PjwvdGFibGU+PGRpdiBzdH dwSI7wIgHs h7dpx0WfKWtyP3ZzVBGeDF xuBeg5XKHwPHM1eLU6wA4c RGFbBHkul4K9rTN4H2Ucvq Rjoo3qu3oo BODdLLswJ03jwPUyf5G1WM TswTQ8WGXdqJngMsCfiW24 Oyc+SGZhgZehx3LbSmobu8 aqp9fpkRe5 XxMoYURbwlWnnAgrKEY3i3 OkEl86M06fEYfaCVSiANSt ZWIjTAXhvBztbm3bkO4lPw 8+PGNvbCB3 hTF5xC6zNIRiCxP5MVdgQ0 33LbYnkMHhXwisc6qmg2rz vEo9PzCaGRZzafBdyLgxUL Z4z9AbFd10 S13bWMccDFNpBJEkCCNyAK TemXmmnw9mmY9eJz3+PC9j e2ngny11iZ66qNK+PHRkIH K1wEafKMax XLGrnI3lFAtiNnC9JWIvDb ZrdG15pKYkSEufCo0rsUsy kQjwUB9eRYHsonfpm304Gp Ful0rdSBNs qXSvJHalADC4G48kj8X9VS DkBGRoSKV1mHT7yS0yxJmu bjogbGVmdDsgdmVydGljYW ofFCftM599 IHRvcDsnPlBhdGllbnQgTm LkHUh6U8XlAgu9OGSvbJlz OG6cqZOzVQewDa6beAmsjS dkTM9jUQSv dwcrg368InJdx0vgOPBieU TzQJcoYQO7T59pg1W1TRMe KDJaAVF0dZW1cU4bjZzrwf ogbGVmdDsg yrPvuWfjWCovBMklO497NN RvcDsnPkJpcnRoIERhdGU6 SN28OB45fIGtb2Y7gIR2A4 BhZGRpbmct wgsbhFY7HBInQAZjgV25Yo 6boMyaBb2qGJEqUDR9CJKi tOXnB1EkuQ5lHxQhYAGaVK KdI2FlvHCl SMzbS882BRlrNkV5SFVsvz RdE2QwRHWhiQhwXuC8v2R8 Dm4KI8H1EU64MT67hVFms6 X1vHZ1F9Mh GRLxntmqybxpsFY1SANpUA OezM92Of2ixJtgEa1dQXJq QTF8RGBymJCaU7AidY7xEc AjMDAwMDAw I6HnfQDlTTnfA683XQroQm R1BNVxrwXhV5KxCKEgnOjz NgC0u5P4Eu2ZNQb5PT03CC 97nVNok4A7 tGM0F7WpMBRjufznoqsygX V3WSVeWSMclJ49Cw5esKtt Zf8nGFWyRJX8QRQvcGKeQ7 HetB6kYeVy FVYoQNVqE6SfdLEtNXzmO8 87EKwmItT4KGTsoaFuW3Hz AXSccEhoQdC7g7G0Pg9PTK PcLL86VYS9 nPK6CY00LG99D2RsBndaxV FibGU+PHRhYmxlIHdpZHRo HQrfAOGoRkLddMtoKS4hBk 9yZGVyLWNv uKbedSRdYcSji0mgAQTbMP ttKS1sxUneR1PnoVS4LSPy b1l9Ex44A52fQ3GdlVF+PG ZwnCO2nVI8 hL4pYzXeApL4XVwxB941Fk BglZDjLzbwm1nmt3mesSk4 HoU6CPFpiqImwDcrHYL0y2 PrOv30H77h IHdpZHRoPSIxNSUiIHZhbG qznn8wxX3zKj3+PGNvbCB3 lPL2lC7vZlSaTeM6XFfxN8 49InRvcCIv Aofbg8tjo5vgiHd7KoRaQB HujcUbyRezUYB9o3VbUq18 F2XmfRbez8TcTrp2dy27wJ Uvc0K1tJA2 B1IdAKFwfpuspBMjeQqaNJ 9sQXMbgqrlMHQavX4kXKZf L9u9ChQpAlS6GMujK1Vqoj U7GDXlkLOx PCbsJLH7I30en9X0QPVtLR HiKWT5iMM5cW3koGximzvh bGVmdDsgdmVydGljYWwtYW phZ369HSMg uTeyKHFheG8dBQNyrEZreD gvWW2eGQFqfiyqKj3RKW9t GRaTSNjEZgr5V7UfHtb9BE RjoNnmRB0i yLHfJZeiNw3ydYqojMdzZA 1tQFOtvfhpOJOjgL5aDMZq uZYljJkkJD0uZGOtyfoby1 34GrKrCNY7 BYYqkOYvC5UnkA8hBoRfDM BrOBMaY6JypNYlVSliF967 TXarCpF4SWMavdZmQ3AkJY FsaWduOiB0 d7N7Ug1rHt9rDb1zEIWzGY 92CT38nYLec8L4hQL2L9Xi XVTzakjmkhgdcRR0EAPzAA ExsE65nZRb CUivFz7cd7B3i137BSPuXK TrtP87Il6gsFozQAZmyPJI dP3dfkkbw8ygddldLuCqTM WgUVg8GXr4 GKOsqCbdDfNyVWT6QlL1HF E1yJBrwY6zbZhwbpnrjT5w Oyc+UWstIVTfdjX6M3RzQk z0WQFujOtf JF1kpUOoOBpkVc4zjTjatD qoSO4xQIAbdjupDLEchP0f TQQbsMMwqIpnCW5zAKZnug whp970BfGo RFG1LURnmZXlY9JqwL9qXv LoSEChNHViX2ZxsKXuJAlt K473OQjjXzS2PGXheyOqQ7 FsLWFsaWdu DhY3i8R5Qb7RQYejVP14QK 66hEGbd2B9wWI2A3BmDIBk bdinnihxtZV2VRCmFFGinN 47cGFkZGlu Am9wv1T2j973IWMpSSYaoB 01Wr7hlOduODKwdUPKlJ6d fwxaf0dyyklsPcFbVALoXR j8BMh6TXUs yVbeRrCfJLR5GiF0KCD1zI VbjB8uiVxlqtezlD9pEvq+ S2Z6uXB7qDDvgVoiiNK+PC 26ss24N0Aj TlvyPfp4QXLzCFC9xMK7tM 7hHIZdHPjgu8T0iSI7M6Ly ovIyxe7uc8ajBFWzGGlqF9 0rvCOoq0I1 KWWjeOL4IIItlTlbHsSvlD 93Oyc+GQTxaOzxe5UyCqgh r0mlp3xvfSl1LmHmXOSkuj FsaWduPSJ0 w2IoRw72A00oEMbtRJFhLK DcJYFkIDLhnOrybb1olN8j Ii8+FRZrmSH5sXR6wQ1jYr WcRwH0NLim G971DgIueVHnZdjpd3otq3 curTa9GvHhLLAnygKjvZwy AZN3q6ZlRg68B1AzgLvao5 FlXmm2fw92 nTKce2A8vLI5T9BaEHEhty ezoZNznSzbYZ1iHFNdfhsg XSAadW6aAJZiY3l5CqThFz R0COliF4Ce wjO6KVZbpGGfPWPbpQXMkR 3maesgv6hfuhvjOiKdNYCf UFz5MKm4QJUfdPkjFeIaPH N6RiZ2HMJ8 ySBruV7jtZikvegusM5bGe c+PSc6u2wnpINdXF8snQL7 KQ17SL36aPMxd4Q6iEK2L5 BhZGRpbmct bhowzNQ0IQLuVQLhmC54Ok 3ukNohCn6rWPOtLSY8IFHp dYUnL8MfpX7xSmApPRFmWI IbZ7WtgQZr FZtaW947ZBimLbT0CRMqti QzV5CqXGCxwBxeKqC5v7R8 Nb9OQK94BR37LU60tJHde9 P5hBJ4B5Ri YJIpfyjsupzpfAS1HJGkHX ZfeG94Zr1cdQnwIc1yEBDi HVX6MWRiaAJcJ3WkvL7lVa AjMDAwMDAw P6KehUCiSNxrE228DIkkLe B7AGHhacWdS1ZzFCWhrJzs MlL6w3Q6Kt4PCz32EQ80HO 71qZZuz1Z9 wOZ3Q9ZcFRLjjuijybotjQ H6IOBkFGUoaQ79Is8tmZpg At4gXNMmCXD0MLXqlBOyT3 KmbA8nSmYw QKIxMPBtE7LxdYJlUZnfC7 70BGjsZoV2NPYlgoYsA7Ry UCDrdNyvIlS9z4X7Iq1QNB sndwd9C5Ev PjwvdHI+FM33QYEnEB09uH TriFHff7qfbXk0UwVuMHTo FQT0qPcmYIlfe3JkKXPdW7 8vvZOsp7V0 IGNv (more content not included)... [facility] Consent for Treatmenton 10-2 Consent for Treatment [id number]#1.0 0CD:127 Normal [facility] IntraOperative Documentson 1 IntraOperative Documents [id number]#1.0 0CD:127 [facility] Main OR Intraoperative Recor don 04-01-2021 Main OR Intraoperative Record IntraOp Document Type FTURO Summary Primary Physician: Lino Ansari Jr., MD Finalized Date/Time: 04/01/21 14:49:37 Pt. Name: RIC BERRY/Sex: 1960 Male Med Rec #: [id number] Physician: Lino Ansari Jr., MD Financial #: [id number] Pt. Type: O Room/Bed: / Admit/Disch: 04/01/21 14:14:58 - Institution: Case Times FTURO Entry 1 Patient Times In Room 04/01/21 14:35:00 Out Room 04/01/21 14:48:00 Procedure Times Start 04/01/21 14:41:00 Stop 04/01/21 14:44:00 Anesthesia Times Last Modified By: Stew BAUM, Rissa Lawson 04/01/21 14:48:36 Case Attendance FTURO Entry 1 Entry 2 Entry 3 Case Attendee Elan Peterson MD, Lino Mathias RN, Rissa Bullock RUST, Светлана Palacios Role Performed Surgeon - Primary Gum Machine Filler - Primary Scrub - Primary Time In [...] By: Rissa Mathias RN 04/01/21 14:49 Normal [facility] Main OR Intraoperative Record IntraOp Document Type FT Summary Primary Physician: Lino Ansari Jr., MD Finalized Date/Time: 04/01/21 10:59:15 Pt. Name: RIC BERRY/Sex: 1960 Male Med Rec #: [id number] Physician: Lino Ansari Jr., MD Financial #: [id number] Pt. Type: A Room/Bed: Admit/Disch: 03/25/21 11:46:55 [...] Anesthesiologist Surgeon - Primary Scrub - Primary Professor Of Physical Education Time In 03/25/21 14:43:00 03/25/21 14:43:00 03/25/21 [...] Nadia Dixon RN, Alba Ibarra Role Performed Gum Machine Filler - Primary Bridge Design Engineer Chiller Hand Time In 03/25/21 14:43:00 03/25/21 14:43:00 03/25/21 14:53:00 Time Out 03/25/21 15:43:00 03/25/21 15:43:00 03/25/21 15:43:00 Procedure CYSTOSCOPY RETROGRADE CYSTOSCOPY RETROGRADE CYSTOSCOPY RETROGRADE STENT INSERTION(Left), STENT INSERTION(Left), STENT INSERTION(Left), CYSTOSCOPY W/ HOMIUM CYSTOSCOPY W/ HOMIUM CYSTOSCOPY W/ HOMIUM LASER(Left) LASER(Left) LASER(Left) Comments Student : Christa Rodriguez present during procedure Last Modified By: Aric BAUM, Nadia Corbett RN, Nadia Nadia Fajardo RN, I 03/25/21 15:52:59 03/25/21 15:52:59 03/25/21 [...] Yes Time Out Abe PERKINS, Asuncion Ramirez, Given Luca Ansari Jr., MD, Lino Goodson, Wilver NOLASCO, [...] Text: Im (more content not included)... [facility] Main OR Preoperative Recordo n 04-01-2021 Main OR Preoperative Record Holding Area Document Type FTURO Summary Primary Physician: Lino Ansari Jr., MD Finalized Date/Time: 04/01/21 14:40:21 Pt. Name: RIC BERRY./Sex: 1960 Male Med Rec #: [id number] Physician: iLno Ansari Jr., MD Financial #: [id number] Pt. Type: O Room/Bed: / Admit/Disch: 04/01/21 [...] 14:24 Rissa Mathias RN 04/01/21 14:40 Normal [facility] Operative Reporton Operative Report Patient: MARTÍNEZ BERRY Age: 60 years Sex: Male : 1960 [...] well and was subsequently discharged home. Normal [facility] Comment on above: Result Comment: Elec tronically Signed By: Lino Ansari Jr., MD\.br\Date and Time Signed: 04/01/21 14:48 EDT Calculus Analysison 03-31-20 Calcium oxalate dihydrate Infrared spectroscopy (Stone) [Mass fraction] 20 % Invalid Interpretation Code [facility] Comment on above: Performed By: #### 1 [id number] ####[facility] [address] [place] [address] Calcium oxalate monohydrate (Stone) [Mass fraction] 80 % Invalid Interpretation Code [facility] Comment on above: Performed By: #### 1 [id number] ####[facility] [address] [facility] [place] [address] Color (Stone) Brown Invalid Interpretation Code [facility] Comment on above: Performed By: #### 1 [id number] ####[facility] [address] [facility] [place] [address] Composition Comment Invalid Interpretation Code [facility] Comment on above: Result Comment: Perc entage (Represents the % composition) Performed By: #### 1 [id number] ####[facility] [address] [facility] [place] [address] Disclaimer: Comment Invalid Interpretation Code [facility] Comment on above: Result Comment: This test was developed and its performance characteristics determined by [facility]. It has not been cleared or approved by the Food and Drug Administration. Performed at: [facility] Stone Analysis [address] [place] [address] [place], [place] [id number] MD Maria Elena Trotter Performed By: #### 1 [id number] ####[facility] [address] [facility] [place] [address] Laboratory comment Gordo (Report) Comment Invalid Interpretation Code [facility] Comment on above: Result Comment: Omer garay questions regarding Calculi Analysis contact [facility] at: [phone]. Performed By: #### 1 [id number] ####[facility] [address] [facility] [place] [address] Please Note: Comment Invalid Interpretation Code [facility] Comment on above: Result Comment: Calc kat report will follow via computer, mail or complaint manager delivery. Performed By: #### 1 [id number] ####[facility] [address] [facility] [place] [address] Size (Stone) [Entitic vol] 2x3 Invalid Interpretation Code [facility] Comment on above: Result Comment: Mult iple pieces received. Dimensions of the largest piece reported. Performed By: #### 1 [id number] ####[facility] [address] [facility] [place] [address] Specimen source subject Nom Comment Invalid Interpretation Code [facility] Comment on above: Result Comment: Not provided Performed By: #### 1 [id number] ####[facility] [address] [place] [address] Stone Photo Comment Invalid Interpretation Code [facility] Comment on above: Result Comment: Phot ograph will follow under a separate cover Performed By: #### 1 [id number] ####[facility] [address] [facility] [place] [address] Weight (Stone) 14 mg Invalid Interpretation Code [facility] Comment on above: Performed By: #### 1 [id number] ####[facility] [address] [facility] [place] [address] Formson 03-31-2021 Forms [id number]#1.0 0CD:127 [facility] H&P Updateon 03-31-2021 H&P Update [id number]#1.00 CD:127 [facility] Coding Summary.on 03-30-2021 Coding Summary. CD:[id number] Gh 0bWw+PGhlYWQ+GN1SALYdK 53qmWFtgE0BE1zGES4EGYV LNCUMIH3XXD8phWP6MSnjP 2VybiAv CcudfRHsPC49IJx5UQQ8jE ylOWfzrJ3sfDAsZ4h5NrLf QM05sE32AYhfLZVjQvN2Bm ZpbjsgbWFy A4jvZhBjcFSxDhx+PHRhYm xlIHdpZHRoPScxMDAlJyBz rAxhEF6wXb0zRYKjDTSjtT xhcHNlOiBj w2zzFXKqAJufZO7bzYcjQ9 GadDZ4FAEyf9g6Ji90wMN+ QOEqJOK5aHwlWBxqi269Uv Bul2ktLIT1 yJChIIknOBW1N31vu7N6NI VzMYTkQQK9iCO4iX1biBvf cvoaG7QwnGXyRwX2OQS9gW VvhD8ofIzj idbvvF3dAha+G92EMT7MYT ASOO7JPjm8T0ObMlcjwSN+ WC05UQGtMG23sSZesTYop3 mgxDd0PcQk TIRsPAU8mDwjXHkyt1RrMG VpN69zlMTuy6V4MWMrkDrq uDOaKtRasSY1iZ2iQVvgay bxs2qbsdyr Bkgis6vzmy26lT45R65kRF mcUSHxDQH9LEIjXPEjyIhx mw6glR0kXb8+MEqct0rho2 rukKn1GtGg JYIkstUpgViyPVA8l0VrMh 05W9OjkPmwx7PnKiv6lm35 lGRkg4Q4gRF6UKzuIWSsoO 9gSWhyUtE9 TSDaBzJmuV86eHHgSZhkWf 4asVabdUsrPX0oCQLmjmld OMIvuX7kNOFvzGOrfLzlQH 4wNTBpbjtm h529UyYvVEK8PJAgsZWdZ3 SwcX8oOpYtIEMtIVZpX7Zf qXOxZVieN672OTjlOvM1GR OnmaZzY7Xk UGNecStgXxH6k8D4Om2Nn0 SpslspDAC9TItoBFCdOfD5 WuHeJhO1O4UmHjj8VSTcwE kbYT9fF7Xt DZWyrfsprjlydDT0AOIuRQ LvyZ75gMGxZIccMs5ga1Q0 h021NREnQUWfrC70Xm7zpD ogMTBwdCBU bA2rxbjix2ardzqfFeFlNC ChIFj4NKu5TIDksNxiAyVz YHV3WqX1SAJ7iQBhfS7fmE crejpmdO2l Oyc+C55yfH9eNNR8LEQ2vf rvSLIufuTgQS67VL74B0Bt PjwvdGFibGU+PGRpdiBzdH vsFV6dZiPc z5hdc9ZsVTrzX4ApEWKnZU bmLzn4XBPqQMN3eUK8rO6d ZBAcQDyzq5Q7rRZ5Q3Sjin Anlk6yt1ra AEGfCKiiK46ovYZkg6X9AI CsbXD9DSFhyCguLdZtrT61 Oyc+YDGzjFlkf8KsUcuay4 tzp6eedSe0 JoSiHBUxucGybIgyTBC9j3 LsMd53T32mDTdpGDBvJNLw HKLtMMDyuQffqt5zaZ0xEx 8+PGNvbCB3 vMZ0uO2uMCDuRkZ0VCggX6 77LgWvhBDxXtmjo1ckb1hv zOj1RlIjQTGhmjIszJuiTE U8l0GlZw77 X35sXBkzQBOqQEZmDREtFA BxaIirjj7uqD9zYj9+PC9j o9bnyc52cT47iXA+PHRkIH I4nEugPZvt EPZtxS2vDUkoYdZ8JUNcLd FvtM30qBZbAHieEv0yuDvm uXwzNN4kFVUvaignu567Lk Iqm2vsZAAb wVSiWPrbRWV3F96cd0U8FT YtWNTkXQS7zCW2hK4adFnz bjogbGVmdDsgdmVydGljYW owIRgbQ572 IHRvcDsnPlBhdGllbnQgTm YzIPe6B7JwVfl9TJCkwCfm HF0hsIVlWRkzLh2goDtkhB fvCK7bHRNf erwwr839VeLmf0ixQKHizR SzGGisTEK2U23xv2W1SRDd ZPLtBZB7qTC1hW2wpZfzev ogbGVmdDsg woVyyPfoZEvjCBfkP082CT RvcDsnPkJpcnRoIERhdGU6 KP24DT36dUHrz6M8eSI5S3 BhZGRpbmct dafpfDV1ZDGiKIUfxB54Dt 1ciBqoMq5bUUDlRIL8FJYr zRPdO0KktD5pBcOgRZOwBW KdO0RpwMXa FHpkE945QYscFjN4YEKkve RfF4YpZJBzxQamOdN7s3G4 Zq1SH6T7OE59CZ11wMMbb2 C1fCA5J8Zx LFYoqmugakogoSD2ANLgRT LogT81Zy0tlCbvUi3zVRHy GSO9GEFbqWTaF2VblU2bYn AjMDAwMDAw A4CajCIvXOabK021ZLxhZf E3GFWxgxAiD3IaNODjuLrt MxZ4o6E4Gk4TXSu7FQ02VY 25fTUyw0L4 hXO1L5MuNBMxwkzhjnscyE K8BQRtWLQukW53Op9tsUlg Cc4vQASyAMW1GYIihFUhC2 JokL6zHwYn LUDgZMZeM1LicNWfDTdnS3 78GCuwUsF4ASKkdsTvK0Py XCNenEapLyP5g3T5Lz5TRG BhZE38OAZ5 lDG2CG08QF28C1XkHmhpaH FibGU+PHRhYmxlIHdpZHRo UJdtHZZgCqKlfMurTI6eRo 9yZGVyLWNv zSjbkUGsVnBry1lsDSUlOT szQV4kdMzmI6GsnEC6NIRo o7s6Cc92C61yQ1BlkRL+PG HbqRL1rUU3 gJ8rCkXvUwB9LTupJ023Fs XyrWEoWjqjy7mbb0fxeNz5 VhA1XYPptyCtrHhpPZN3q6 IsWq69T14u IHdpZHRoPSIxNSUiIHZhbG qzpo4fuT1mLi3+PGNvbCB3 zOM8sW3tSwVsKpG3KCbqY1 49InRvcCIv Khqay4bbw8aelSt0YdZpCI DevuImnXkaEKQ7q6HbTg93 J8SqiLglf2WqVhq0dz11pN Hns4S4mQB4 E9VyIOQyuhedqBQboJxdUW 7aZEDquizvUOGnxY4jZFKa F9d0ClVbHgK2PEbbW9Jzpg Z9KTEwlXZo PRhrZDM5X43lg0V3USNtBZ IqXQX9mMM8gF5zfGrlxnfh bGVmdDsgdmVydGljYWwtYW aiG156JHZd aPltUQQceW1iPBBekZNfuC bhFL8uMDOkvkrkZp5KNB3f YAyVPIiXLrf9P3YbUxr7EO XfpXuuGG3m wFGjTMyyAt9zgJoerGftRW 4nFMZjmxvfEXCspM8uHHWo wYCdiVihIO8cPAMzvrdxk4 69QzIaAHU7 OTDfaHLhT3JhbV7qVyCaHM KtBPRaZ6MnyVRyKAbxR570 NQsaBnM9CVYzneMzK8DrHE FsaWduOiB0 x9M1Pa1tSq1aAe6qLDFbJW 62MD67uLNma9H3dYY0T9Kh CCTzvjsokbtzjSQ2ZMJfYU JswB54xYMk SXxwOl6ml3U1j865DGUsBB BxoY95Uj5jkPznHNOawELB xI5pbtvxr0npjwttCsYtEW GbQXe4JEd7 RELfeFkfYhTsLHZ2XpG7DL A9zNTjvE0thOitowcimF2v Oyc+IPvlAXPbelE8G5JxTq h5XPSobCkd DH7pdTQcLRhmCo6rmBszoC ghOQ7iKPBpjjscRPImsD2w WRKdhBGhbSbaPQ1uAJOuka ezt902FuYz EKX4QBRvqABqU5PvtM8uPx RiNPKeJNHiL6UkiGEiCJmd L442KNzeTsQ7WAAcghSeU1 FsLWFsaWdu AdS8a3X3Qv7GZKjaJT05UY 37bOOui5Y9wEA9W1IfTHRb iwpwlhaaoUA5NFVpNQKvmJ 47cGFkZGlu Bs9qc7S5m629GATtMLJvzO 67We4pzXknTROovDSAkU6k rhhcu1qvkgcqToQhLRMyCN j5UTg0OEBr aLocLwScLES6AmI2FDN9iR CkgV1boPxomxncbC1mNmv+ HS2fmFoexF4qpU9QWQ4hYK RheSBTdXJn QNH7JZ46PH58M4MdZusbfG FibGU+PHRhYmxlIHdpZHRo BMbdRIDqLqRmvNwmEP2gGi 9yZGVyLWNv gIfvkICnUeFju0gmRBEuNF irVA1wrNlsP9XmzTB9CQQb z0m3Or96N25aE2KyzLD+PG WwzTP2mKC8 sT6jRjHgFsZ4KQitC936Ll SatSQuTzffz9awf4wljOn8 HdTvSGOundZhzPdjXNH4q9 HfFl88S70d IHdpZHRoPSIyMCUiIHZhbG fsbv1naR9fNo8+PGNvbCB3 sAI4iZ5pOkSaKtB6HApxK4 49InRvcCIv DknaI50vJ2KixMP+PHRyPj w9LPQtkJrgMR7cyHTrYJvb Lq0gGFR8VtBuThBhERloI5 BhZGRpbmct baqgjWD8FCYlQSEqoH39Oe 2kxMmhZr4iKNAjNEE1MENn iPFgM5YxlX3jDlAqCLGeON WmV8NcsYIf STylC656UMjxHuV1XSNmeq LhQ7NyHITotTniFoD2z1J1 Yc4KbMoxvAVaWC1sXuZpEF a5U2TuAqf3 FMLunGopIS3koPViWJlhRa 5leDbvsVkwDE4xQRUvevre k849HfAsw4voRBYguADgKQ jtGJQ9N96l e2A8BQNtPFMeRYW4qRH2jG 1hbGlnbjogbGVmdDsgdmVy hPcvGVhqHYvgJ603RXTwiK snPkZJTjo8 I6CzJzz5XAAhiOpuAJ2fpE NkNIvjFg6jyWowyVopIA9u WBTzhqobn563LnXqn8jiBY EwcHQgVGlt IMK8H73fg5H8EMIfIFMrJV A8kWT2bW2qgGnlkokbaPIv dDsgdmVydGljYWwtYWxpZ2 46IHRvcDsn Kp9GZpp0Y6LuVpy6EIOohU lnCC7qmLGeNXqiYp6xxBjg iNgmWE2hTHVwzlwpn783Zo Opx6jbUVQa jLTxVEtbFGK1H05ua9B9UL AfHBSpDFK7rPO8iC5wrLuz bjogbGVmdDsgdmVydGljYW jxCPayR727 IHRvcDsnPlBheWVyOjwvdG Q+FJ39si01Q7LgYltiPmr1 VDUuCIL6yBO9uF7pXXXmPK zxo7W4uPM8 J2Jv (more content not included)... Normal [facility] Postoperative Documentson Postoperative Documents [id number]#1. 00CD:127 [facility] Pre-Certification Formon Pre-Certification Form [id number]#1.0 0CD:127 [facility] Progress Note-Physicianon Progress Note-Physician Patient: RIC BERRY Age: 60 years Sex: Male : 1960 Associated Diagnoses: None Author: Deniz Chan MD Postoperative Information Post Operative Note: Post Anesthesia Care Unit. Anesthetic utilized: General. Health Status Allergies: Allergic Reactions (All) Severity Not Documented Baclofen- Unknown. Celecoxib- Unknown. Iodine- Unknown. Problem list: All Problems Anxiety / SNOMED CT 71410021 / Confirmed Physical Examination Intake and Output adequate hydration Measurements from flowsheet : Measurements 03/25/2021 12:34 EDT Height/Length Measured 177.0 cm Weight Measured 85.5 kg 03/25/2021 12:25 EDT Height/Length Measured 177.0 cm (Modified) Weight Dosing 85.5 kg [place] Body Weight Calculated 72.276 kg (Modified) BSA Measured 2.05 m2 Body Mass Index Measured 27.29 kg/m2 Weight Measured 85.5 kg 03/24/2021 8:35 EDT Height/Length Dosing 178.0 cm Weight Dosing 84.0 kg 03/24/2021 8:35 EDT Height/Length Measured Date\Time Correction Height/Length Dosing 177.8 cm [place] Body Weight Calculated Date\Time Correction Pain assessment: [...] discharged from anesthesia care. Condition stable. Normal [facility] Comment on above: Result Comment: Elec tronically Signed By: Deniz Chan MD\.br\Date and Time Signed: 03/29/21 16:40 EDT Consent for Anesthesiaon Consent for Anesthesia [id number]#1.0 0CD:127 [facility] Consent for Procedure/Surger yon 03-26-2021 Consent for Procedure/Surgery [id number]#1.0 0CD:127 [facility] Discharge Instructionson Discharge Instructions [id number]#1.0 0CD:127 Normal [facility] IntraOperative Documentson IntraOperative Documents [id number]#1.0 0CD:127 Normal [facility] IntraOperative Documents [id number]#1.0 0CD:127 Normal [facility] Preoperative Documentson Preoperative Documents [id number]#1.0 0CD:127 Normal [facility] Capillary Glucose POCon 03-12 Glucose [Mass/Vol] 134 mg/dL High 55-99 [facility] Comment on above: Performed By: #### 2 [id number] ####[facility] [address] [place] [address] Consent for Treatmenton 03-12 Consent for Treatment [id number]#1.0 0CD:127 Normal [facility] ECG 12-Leadon 03-25-2021 ECG 12-Lead [id number]#1.0 0CD:127 Normal [facility] Immunization Recordson 03-25 Immunization Records [id number]#1.0 0CD:127 Normal [facility] Inpatient Patient Summaryon 03-25-2021 Inpatient Patient Summary [address] [address] [facility] Clinical Discharge Instructions PERSON INFORMATION Name: RIC BERRY [facility] Admitting Physician: Lino Ansari Jr., MD Attending Physician: Lino Ansari Jr., MD PCP: CHRISTOPHER WU DO Discharge Diagnosis: Hydronephrosis with renal and ureteral calculus obstruction Comment: PATIENT EDUCATION INFORMATION Instructions: [facility] Utereroscopy,Lithotrip sy, Stone Extraction, Stent Placement (Custom); Cystoscopy; Post Op Patient Instructions - FT (Custom) (Custom) Medication Leaflets: Follow up: With: Address: When: [facility], [address], [place] [address] Business (1) Within 1 week Comments: My office will schedule cystoscopy with stent extraction. MEDICATION LIST New Medications [id number], [address] [place], [place] [id number], [phone] acetaminophen-oxycodon e (Percocet 5 mg-325 mg oral [...] Tablets By Mouth every day. Comment: Normal [facility] Main OR PACU I Recordon 03-12 Main OR PACU I Record PACU Phase I Document Type FT Summary Primary Physician: Lino Ansari Jr., MD Finalized Date/Time: 03/25/21 18:09:07 Pt. Name: RIC BERRY/Sex: 1960 Male Med Rec #: [id number] Physician: Lino Ansari Jr., MD Financial #: [id number] Pt. Type: A Room/Bed: [facility] Admit/Disch: 03/25/21 11:46:55 - Institution: Case Times [...] By: Anabela Yeh RN 03/25/21 18:09 Normal [facility] Main OR PACU II Recordon Main OR PACU II Record PACU Phase II Document Type FT Summary Primary Physician: Lino Ansari Jr., MD Finalized Date/Time: 03/25/21 18:08:49 Pt. Name: RIC BERRY./Sex: 1960 Male Med Rec #: [id number] Physician: Lino Ansari Jr., MD Financial #: [id number] Pt. Type: A Room/Bed: Admit/Disch: 03/25/21 11:46:55 [...] By: Beatriz Blankenship RN 03/25/21 18:08 Normal [facility] Main OR Preoperative Recordo n 03-25-2021 Main OR Preoperative Record PreOp Document Type FT Summary Primary Physician: Lino Ansari Jr., MD Finalized Date/Time: 03/25/21 15:55:27 Pt. Name: RIC BERRY /Sex: 1960 Male Med Rec #: [id number] Physician: Lino Ansari Jr., MD Financial #: [id number] Pt. Type: A Room/Bed: Admit/Disch: 03/25/21 11:46:55 [...] Nadia Corbett RN, I 03/25/21 15:55 Normal [facility] Monitor Recordon 03-25-2021 Monitor Record [id number]#1. 00CD:127 Normal [facility] Operative Reporton Operative Report Patient: MARTÍNEZ BERRY Age: 60 years Sex: Male : 1960 Associated Diagnoses: None Author: Lino Ansari Jr., MD Postoperative Information Procedure: Hydronephrosis with left ureteral calculus Date/ Time: 03/25/2021 15:42:00 Preoperative Diagnosis: Hydronephrosis with renal and ureteral calculus obstruction ([id number]-UR N13.2, Discharge, Medical). Postoperative Diagnosis: Hydronephrosis with renal and ureteral calculus obstruction ([id number] N13.2, Discharge, Medical). Performed by: Elan Peterson [...] the lab for chemical analysis. A 6 [place] double-J ureteral stent was then placed over [...] FACS. Specimens Removed: Ureteral calculi. Prosthesis: 6 [place] double-J ureteral stent. . Estimated Blood Loss: 0 ml. Complications: None. Anesthesia type: General. [facility] Comment on above: Result Comment: Elec tronically Signed By: Lino Ansari Jr., MD\.br\Date and Time Signed: 03/25/21 15:50 EDT Outpatient Surgery Discharge Instructionon 03-25-2021 Outpatient Surgery Discharge Instruction [place] [id number] Patient Discharge Instructions PERSON INFORMATION Name: RIC BERRY Date of : 1960 Current Date: 03/25/2021 17:44:45 [facility] Admitting Physician: Lino Ansari Jr., MD Discharge Diagnosis: Hydronephrosis with renal and ureteral calculus obstruction RIC BERRY has been given the following list of [...] Follow up: With: Address: When: Lino Ansari [facility], [address], [place] [address] Business (1) Within 1 week Comments: My office will schedule cystoscopy with stent extraction. Pharmacy Information: [facility] You may receive a survey from Elen Aggarwal asking you to rate your care experience. Your feedback is important and will help us understand what we do well and how we can improve the quality of care we provide to you, your loved ones and our community. It?s an honor to serve you. Thank you for choosing [facility] HERE ARE THE MEDICATION CHANGES THAT OCCURRED DURING YOUR HOSPITAL STAY New Medications [id number], [address] [place], [place] [id number], [phone] acetaminophen-oxycodon e (Percocet 5 mg-325 mg oral [...] day. PATIENT EDUCATION INFORMATION Instructions: [facility] [place], [place] Post-operative Instructions for Stent Placement There [...] other reasons. If it is to remain prison, however, changes of the stent are required [...] the ba (more content not included)... Normal [facility] Patient Education - Texton 1 Patient [...] including vitamins, herbs, eye drops, creams, and qbuj-cgo-judjlfu medicines. ? Any problems you or family [...] tells you to take them. ? Taking qgdp-tcz-bpturff medicines, vitamins, herbs, and supplements. ? Follow [...] these instructions at home: Medicines ? Take cauh-kxd-pdtkpas and prescription medicines only as told by [...] yellow. ? (more content not included)... Normal [facility] Progress Note-Physicianon Progress Note-Physician Patient: RIC BERRY Age: 60 years Sex: Male : 1960 [...] selected or recorded. Procedure history: Hip replacement ([id number]). Social History Social & Psychosocial Habits Tobacco [...] review: No qualifying data available . Plan [place] Society of Anesthesiologists (ASA) physical status classification: [...] and lungs, allergic reactions, and .. Normal [facility] Comment on above: Result Comment: Elec [...] V. Transcribed by: LOUIS Technologist: HARRIET Normal [facility] XR Urography Retrograde Left on 03-25-2021 XR Urography Retrograde Left Exam Date/Time: 03/25/2021 15:43 EDT Reason for Exam: Kidney stone Report IMPRESSION: LEFT URETERAL STENT PLACEMENT. CLINICAL HISTORY: Kidney stone COMPARISON: 03/25/2021 12:28 PM. FINDINGS: 3 digital spot images of the abdomen were obtained in surgery. Initial transplant coordinator image shows a tiny left renal calculus [...] Dose: Ka,r in mGy = 465.9 Normal [facility] Consent for Treatmenton 03-12 Consent for Treatment [id number] 0CD:127 Normal [facility] Outside Recordson 03-24-2021 Outside Records [id number] 00CD:127 Normal [facility] Physician Orderon 03-24-2021 Physician Order [id number] 0CD:127 Normal [facility] RAD - MISCon 03-24-2021 RAD - MISC [id number] 0CD:127 Normal [facility] XR Chest 2 Viewson XR Chest [...] MD Transcribed by: LOUIS Technologist: MAJO Normal [facility] Anesthesia Recordon 12-31-19 Anesthesia Record Patient: MARTÍNEZ BERRY MRN: [id number] Age: 60 years Sex: Male : 1960 Associated Diagnoses: None Author: Frankie PARDO, Sergo Jewell Procedure Time Out Merrill Protocol: patient identity verified, site verified, side [...] Diagnosis: m16.12 Postoperative Diagnosis: m16.12 . Normal [facility] OR Nursingon 12-30-2020 OR Nursing Normal [facility] PACU I Nursingon 12-30-2020 PACU I Nursing CO NA PACU I Nursing Record Summary Primary Physician: Quentin Ramirez MD Finalized Date/Time: 12/30/20 12:49:47 Pt. Name: RIC BERRY/Sex: 1960 Male Med Rec #: [id number] Physician: Financial #: [id number] Pt. Type: A Room/Bed: / Admit/Disch: 12/30/20 07:04:00 - Institution: IN NA OR Main PACU I Case Times [...] By: Mendoza Soto RN 12/30/20 12:49 Normal [facility] PreOp Nursingon 12-30-2020 PreOp Nursing CO NA PreOp Nursing Record Summary Primary Physician: Quentin Ramirez MD Finalized Date/Time: 12/30/20 09:42:21 Pt. Name: RIC BERRY/Sex: 1960 Male Med Rec #: [id number] Physician: Financial #: [id number] Pt. Type: A Room/Bed: / Admit/Disch: 12/30/20 [...] By: Fernando Zimmerman RN 12/30/20 09:42 Normal [facility] XR Pelvis 1-2 Viewson 2020 XR Pelvis 1 or 2 Views EXAM: XR Pelvis 1-2 Views HISTORY: Postoperative COMPARISON: None. TECHNIQUE: AP radiograph of the pelvis. FINDINGS: There is a left total hip arthroplasty with surrounding postprocedural change. Hardware is intact. Alignment is within expected limits. Partially evaluated right hip is unremarkable. IMPRESSION: Left total hip arthroplasty, as above. Clyde thanks you for the opportunity to care for your patient. Workstation ID: [id number] FINAL REPORT Dictated By: Latonya Hampton MD 12/30/2020 13:05 Assigned Physician: Latonya Hampton MD Reviewed and Electronically Signed By: Latonya Hampton MD 12/30/2020 13:06 Transcribed by: CRISTINA 12/30/2020 13:05 Technologist: ASRAH Guardado [facility] Comment on above: Order Comment: Posto perative, s/p JENIFFER Basic metabolic 2000 panelon 12-16-2020 Calcium [Mass/Vol] 9.6 mg/dL Normal 8.5-10.6 [facility] Chloride [Moles/Vol] 103 mmol/L Normal 98-[address] [facility] CO2 [Moles/Vol] 25 mmol/L Normal 21-32 [facility] Creatinine [Mass/Vol] 0.81 mg/dL Normal 0.70-1.30 [facility] Glucose [Mass/Vol] 133 mg/dL High 70-99 [facility] Potassium [Moles/Vol] 4.2 mmol/L Normal 3.5-5.1 [facility] Sodium [Moles/Vol] 139 mmol/L Normal 136-145 [facility] Urea nitrogen (BldV) [Mass/Vol] 15 mg/dL Normal 7.0-18.0 [facility] Urea nitrogen/Creatinine [Mass ratio] 19 mg/mg Normal [facility] CBC W Auto Differential pane l (Bld)on 12-16-2020 Basophils (Bld) [#/Vol] 0.0 thou/mcL Normal 0.0-0.2 [facility] Basophils/100 WBC (Bld) 0.4 % Normal 0-3 [facility] Differential cell count method Nom (Bld) AUTOMATED DIFFERENTIAL Normal [facility] Eosinophils (Bld) [#/Vol] 0.1 thou/mcL Normal 0.0-0.4 [facility] Eosinophils/100 WBC (Bld) 2.4 % Normal 0-7 [facility] Lymphocytes (Bld) [#/Vol] 2.4 thou/mcL Normal 0.7-4.5 [facility] Lymphocytes/100 WBC (Bld) 49.7 % High 14-46 [facility] Monocytes (Bld) [#/Vol] 0.4 thou/mcL Normal 0.1-1.0 [facility] Monocytes/100 WBC (Bld) 8.1 % Normal 4-13 [facility] Neutrophils (Bld) [#/Vol] 1.9 thou/mcL Normal 1.5-7.8 [facility] Neutrophils/100 WBC (Bld) 39.4 % Low 40-74 [facility] Erythrocyte distribution width (RBC) [Entitic vol] 13.4 % Normal 11.7-15.0 [facility] Hematocrit (Bld) [Volume fraction] 46.0 % Normal 34.0-50.0 [facility] Hemoglobin (Bld) [Mass/Vol] 15.7 g/dL Normal 11.5-17.0 [facility] MCH (RBC) [Entitic mass] 30.5 Picograms Normal 27.0-34.0 [facility] MCHC (RBC) [Mass/Vol] 34.1 g/dL Normal 32.0-36.0 [facility] MCV (RBC) [Entitic vol] 89.3 fL Normal 80-98 [facility] Platelet mean volume (Bld) [Entitic vol] 9.5 fL Normal 7.5-11.2 [facility] Platelets (Bld) [#/Vol] 271 thou/mcL Normal 140-415 [facility] RBC (Bld) [#/Vol] 5.15 x(10)6/mcL Normal 3.80-5.60 [facility] WBC (Bld) [#/Vol] 4.9 thou/mcL Normal 4.0-10.5 [facility] Vital Signs Date Time Vital Sign Value Performing Clinician Facility 06-26-2023 15:00-0500 Body height 175.26 cm [employer] Other [facility] Other 06-26-2023 15:00-0500 Body mass index (BMI) [Ratio] 29.86 kg/m2 [facility] Other [facility] Other 06-26-2023 15:00-0500 Body weight 91.72 kg [facility] Other [facility] Other 06-26-2023 15:00-0500 Diastolic blood pressure 85 mm[Hg] [facility] Other [facility] Other 06-26-2023 15:00-0500 Respiratory rate 12 /min [facility] Other [facility] Other 06-26-2023 15:00-0500 Systolic blood pressure 124 mm[Hg] [facility] [employer] [employer] Other [facility] Other 03-14-2023 14:00-0400 Body height 175.26 cm Christopher Ball Other [facility] Other 03-14-2023 14:00-0400 Body mass index (BMI) [Ratio] 28.73 kg/m2 [facility] Other [facility] Other 03-14-2023 14:00-0400 Body weight 88.27 kg Christopher Ball Other [facility] Other 03-14-2023 14:00-0400 Diastolic blood pressure 86 mm[Hg] Christopher Ball Other [facility] Other 03-14-2023 14:00-0400 Respiratory rate 12 /min Christopher Ball Other [facility] Other 03-14-2023 14:00-0400 Systolic blood pressure 121 mm[Hg] Christopher Ball Other [facility] Other 12-21-2022 15:00-0400 Body height 175.26 cm Christopher Ball Other [facility] Other 12-21-2022 15:00-0400 Body mass index (BMI) [Ratio] 28.97 kg/m2 [facility] Other [facility] Other 12-21-2022 15:00-0400 Body weight 89 kg Christopher Ball Other [facility] Other 12-21-2022 15:00-0400 Diastolic blood pressure 80 mm[Hg] Christopher Ball Other [facility] Other 12-21-2022 15:00-0400 Respiratory rate 12 /min Christopher [facility] Other [facility] Other 12-21-2022 15:00-0400 Systolic blood pressure 126 mm[Hg] Christopher Ball Other [facility] Other 11-26-2022 09:00-0400 Body height 175.26 cm Kacey Taylor Other [facility] Other 11-26-2022 09:00-0400 Body mass index (BMI) [Ratio] 28.5 kg/m2 Kacey Taylor Other [facility] Other 11-26-2022 09:00-0400 Body temperature 97.1 [degF] Kacey Vazquez Other [facility] Other 11-26-2022 09:00-0400 Body weight 87.54 kg Kacey Vazquez Other [facility] Other 11-26-2022 09:00-0400 Diastolic blood pressure 74 mm[Hg] Kaceyjose f Vazquez Other [facility] Other 11-26-2022 09:00-0400 Respiratory rate 18 /min Kacey Taylor Other [facility] Other 11-26-2022 09:00-0400 SaO2% (BldA) [Mass fraction] 97 % Kaceyjose f Vazquez Other [facility] Other 11-26-2022 09:00-0400 Systolic blood pressure 106 mm[Hg] Kacey Vazquez Other [facility] Other 10-10-2022 16:00-0400 Body height 175.26 cm Christopher [facility] Other [facility] Other 10-10-2022 16:00-0400 Body mass index (BMI) [Ratio] 28.59 kg/m2 [facility] Other [facility] Other 10-10-2022 16:00-0400 Body weight 87.82 kg Christopher [facility] Other [facility] Other 10-10-2022 16:00-0400 Diastolic blood pressure 77 mm[Hg] Christopher Ball Other [facility] Other 10-10-2022 16:00-0400 SaO2% (BldA) [Mass fraction] 96 % [facility] Other [facility] Other 10-10-2022 16:00-0400 Systolic blood pressure 108 mm[Hg] Christopher [facility] Other [facility] Other 08-08-2022 15:45-0500 Body height 175.26 cm Christopher [facility] Other [facility] Other 08-08-2022 15:45-0500 Body mass index (BMI) [Ratio] 29.12 kg/m2 [facility] Other [facility] Other 08-08-2022 15:45-0500 Body weight 89.45 kg Christopher [facility] Other [facility] Other 08-08-2022 15:45-0500 Diastolic blood pressure 76 mm[Hg] Christopher [facility] Other [facility] Other 08-08-2022 15:45-0500 Respiratory rate 12 /min [facility] Other [facility] Other 08-08-2022 15:45-0500 Systolic blood pressure 118 mm[Hg] [facility] Other [facility] Other 11-09-2021 08:53-0400 Blood Pressure Location Lino Ansari Jr. [facility] 11-09-2021 08:53-0400 Diastolic blood pressure 88 mm[Hg] Lino Ansari Jr. [facility] 11-09-2021 08:53-0400 Heart rate 81 /min Lino Ansari Jr. [facility] 11-09-2021 08:53-0400 Systolic blood pressure 113 mm[Hg] Lino Ansari Jr. [facility] Encounters Encounter Date Encounter Type Care Provider Facility Start: 08-23-2023 End: 08[facility] Start: 07-21-2023 End: 07-21-2023 ambulatory Christopher Wu Other [facility] Other Start: 07-21-2023 Telephone encounter Christopher ZAMUDIO [facility] Start: 06-26-2023 End: 06-26-2023 ambulatory Christopher Wu Other [facility] Other Start: 06-26-2023 Office outpatient vi sit 15 minutes Christopher Wu [facility] Start: 06-14-2023 End: 06-14-2023 ambulatory Christopher Wu Other [facility] Other Start: 06-14-2023 Telephone encounter [facility]UD[facility] Start: 05-25-2023 End: 05-25-2023 ambulatory Christopher Wu Other [facility] Other Start: 05-25-2023 Telephone encounter [facility] Start: 05-24-2023 End: 05-24-2023 ambulatory Christopher Ball Other [facility] Other Start: 05-24-2023 Office outpatient vi sit 15 minutes Christopher Ball [facility] Start: 04-28-2023 End: 04-28-2023 ambulatory Christopher Ball Other [facility] Other Start: 04-28-2023 Telephone encounter Christopher Ball [facility] Start: 03-28-2023 End: 03-28-2023 ambulatory Christopher Ball Other [facility] Other Start: 03-28-2023 Telephone encounter Christopher [facility] Start: 03-22-2023 End: 03-22-2023 ambulatory Christopher Ball Other [facility] Other Start: 03-22-2023 Telephone encounter Christopher Ball [facility] Start: 03-14-2023 End: 03-14-2023 ambulatory Christopher Ball Other [facility] Other Start: 03-14-2023 Office outpatient vi sit 25 minutes Christopher [facility] Start: 02-28-2023 End: 02-28-2023 ambulatory Christopher Ball Other [facility] Other Start: 02-28-2023 Telephone encounter Christopher [facility] Start: 12-22-2022 End: 12-22-2022 ambulatory Christopher Ball Other [facility] Other Start: 12-22-2022 Telephone encounter Christopher [facility] Start: 12-21-2022 End: 12-21-2022 ambulatory Christopher Ball Other [facility] Other Start: 12-21-2022 Office outpatient vi sit 25 minutes Christopher Ball [facility] Start: 12-05-2022 End: 12-05-2022 ambulatory Christopher Wu Other [facility] Other Start: 12-05-2022 Office outpatient vi sit 15 minutes Christopher Ball [facility] Start: 11-26-2022 End: 11-26-2022 ambulatory Kacey Moultonley Other [facility] Other Start: 11-26-2022 Office outpatient vi sit 15 minutes Kacey Vazquez [facility] Start: 10-11-2022 End: 10-11-2022 ambulatory Christopher Wu Other [facility] Other Start: 10-11-2022 Telephone encounter Christopher [facility] Start: 10-10-2022 End: 10-10-2022 ambulatory Christopher Wu Other [facility] Other Start: 10-10-2022 Office outpatient vi sit 25 minutes Christopher Ball [facility] Start: 09-06-2022 End: 09-06-2022 ambulatory Christopher Wu Other [facility] Other Start: 09-06-2022 Telephone encounter Christopher [facility] Start: 08-26-2022 End: 08-26-2022 ambulatory Christopher uW Other [facility] Other Start: 08-26-2022 Telephone encounter Christopher Ball [facility] Start: 2022 End: 2022 ambulatory Christopher Bryce Other [facility] Other Start: 2022 Telephone encounter Christopher [facility] Start: 08-19-2022 End: 08-20-[address] CHRISTOPHER WU Facility:[facility] Start: 08-19-2022 Telephone encounter Christopher Ball [facility] Start: 08-18-2022 End: 08-18-2022 ambulatory Christopher Wu Other [facility] Other Start: 08-18-2022 Telephone encounter Christopher ZAMUDIO [facility] Start: 08-17-2022 End: 08-18-[address] CHRISTOPHER WU Facility:[facility] Start: 08-17-2022 Telephone encounter Christopher ZAMUDIO Yusuf Bryce [facility] Start: 08-08-2022 End: 08-08-2022 ambulatory Christopher Wu Other [facility] Other Start: 08-08-2022 Office outpatient vi sit 25 minutes Christopher DALY [facility] Start: 03-15-2022 End: 03-16-[address] LINO Leyva Facility:[facility] Start: 01-25-2022 End: 01-25-2022 ambulatory LEYDI PEREYRA Facility:[facility] Start: 12-22-2021 Encounter for genera l adult medical examination without abnormal findings DR CHRISTOPHER WU [facility] Start: 12-21-2021 End: 12-22-[address] CHRISTOPHER WU Facility:[facility] Start: 12-21-2021 End: 12-22-2021 Encounter for general adult medical examination without abnormal findings DR CHRISTOPHER WU Facility:[facility] Start: 12-14-2021 Adult health examination Christopher Wu Other [facility] Other Start: 11-09-2021 End: 11-10-2021 ambulatory Lino Ansari Facility:[facility] Start: 11-09-2021 End: 11-09-2021 Patient encounter procedure Lino Ansari Jr. [facility] Start: 08-31-2021 End: 09-01-[address] CHRISTOPHER WU Facility: Start: 04-01-2021 End: 04-02-2021 ambulatory Lino Ansari Facility:[facility] Start: 03-25-2021 End: 03-25-2021 ambulatory Lino Ansari Facility:[facility] Start: 03-24-2021 End: 03-25-2021 ambulatory Lino Ansari Facility:[facility] Procedures Date Procedure Procedure Detail Performing Clinician Start: 12-21-2021 PSA screening LEYDI JAIN Comment on above: Performed By: #### C , TSH #### [facility] [address] [place] [address] Dr. Cipriano Simon Start: 03-25-2021 Cystoscopy Lino tolbert Jr. Start: 09-26-2018 General examination of patient [facility] Other Start: 10-16-2014 Removal of suture Matt Wu Other Start: 04-11-2008 Extracorporeal shock wave lithotripsy of calculus of kidney Lino Ansari Jr. Depression screening Taylor [facility] Other Insertion of hip prosthesis Lino Ansari Jr. Screening for malign ant neoplasm of colon Christopher [facility] Other Screening for malign ant neoplasm of prostate Christopher [facility] Other Immunizations Immunization Date Immunization Notes Care Provider Fa daniele 09-08-2020 SARS-CoV-2 (COVID-19 ) Ad26 vaccine, recombinant Lino Ansari Jr. [facility] NEGATED: Highlighted row has not occurred!11-09-2021 influenza virus vaccine, unspecified formulation Lino Ansari Jr. [facility] Payers Date Payer Category Payer Unknown [id number] 2.16.8 [id number] 1960 Unknown [id number] 2.16.8 [id number] 1960 Unknown [id number] 2.16.8 [id number] 1960 Unknown [id number] 2.16.8 [id number] 1960 Unknown [id number] 2.16.8 [id number] 1960 Unknown [id number] 2.16.84 0.1.157787.3.579.2.593 1960 Unknown [id number] 2.16.84 0.1.798211.3.579.2.593 1960 Unknown [id number] 2.16.84 [id number] 1960 Unknown [id number] 2.16.84 0.1.021473.3.579.2.593 1960 Unknown [id number] 2.16.84 0.1.890205.3.579.2.593 1960 Unknown [id number] 2.16.84 0.1.633575.3.579.2.593 1960 Unknown [id number] 2.16.84 0.1.973048.3.579.2.593 1960 Unknown [id number] 2.16.8 [id number] 1959 Unknown [id number] 1957 Unknown [id number] Unknown [id number] 2.16 .[id number] Social History Date Type Detail Facility Start: 11-09-2021 Never smoked tobacco (f inding) [facility] Male [facility] Medical Equipment Procedure Code Equipment Code Equipment Origin al Text Equipment Identifier Dates [id number] Start: 03-25-2021 Start: 09-06-2022 Clinical Notes 12-30-2020 [...] Microalbumin, Dilated eye exam and Foot exam [facility] Other 12-13-2023 Evaluation note* Encounter Date Diagnosis [...] improved FBS BS have increased w/ illness [facility] Other 10-17-2023 Evaluation note* Encounter Date Diagnosis Assessment Notes Treatment Notes Treatment Clinical Notes Mar, Type 2 diabetes mellitus with hyperglycemia (ICD-10 - E11.65) [facility] Other 10-11-2023 Evaluation note* Encounter Date Diagnosis Assessment Notes Treatment Notes Treatment Clinical Notes Mar, Type 2 diabetes mellitus with hyperglycemia (ICD-10 - E11.65) 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 [facility] Other 07-13-2023 Evaluation note* Encounter Date Diagnosis Assessment Notes Treatment Notes Treatment Clinical Notes Dec, Type 2 diabetes mellitus with hyperglycemia, without long-term current use of insulin (ICD-10 - E11.65) [facility] Other 07-12-2023 Evaluation note* Encounter Date Diagnosis [...] Avoid stimulants, hydrate and no medication changes [facility] Other 06-26-2023 Evaluation note* Encounter Date Diagnosis [...] of infection. Monitor for now. Push fluids [facility] Other 06-17-2023 Evaluation note* Encounter Date Diagnosis [...] to 7 days, sooner if significantly worsening. [facility] Other 05-01-2023 Evaluation note* Encounter Date Diagnosis [...] They may safely use Tylenol as needed. [facility] Other 03-13-2023 Evaluation note* Encounter Date Diagnosis Assessment Notes Treatment Notes Treatment Clinical Notes Aug, Type 2 diabetes mellitus with hyperglycemia, without long-term current use of insulin (ICD-10 - E11.65) [facility] Other 03-10-2023 Evaluation note* Encounter Date Diagnosis Assessment Notes Treatment Notes Treatment Clinical Notes Aug, Type 2 diabetes mellitus with hyperglycemia, without long-term current use of insulin (ICD-10 - E11.65) Aug, Anemia, unspecified type (ICD-10 - D64.9) [facility] Other 03-09-2023 Evaluation note* Encounter Date Diagnosis Assessment Notes Treatment Notes Treatment Clinical Notes Aug, Type 2 diabetes mellitus with hyperglycemia, without long-term current use of insulin (ICD-10 - E11.65) [facility] Other 03-08-2023 Evaluation note* Encounter Date Diagnosis Assessment Notes Treatment Notes Treatment Clinical Notes Aug, Type 2 diabetes mellitus with hyperglycemia, without long-term current use of insulin (ICD-10 - E11.65) [facility] Other 02-27-2023 Evaluation note* Encounter Date Diagnosis [...] cramp, nocturnal (ICD-10 - R25.2) Reassure, check Joellen Montalvo [facility] Other 05-31-2022 Hospital Discharge instructions Patient Education 11/09/2021 09:45:52 Kidney Stones, Ztft-gr-Qdwm Kidney Stones Kidney stones are rock-like masses [...] Follow these instructions at home: Medicines Take whcc-yqq-quzoqjt and prescription medicines only as told by [...] 11/14/2008 Document Revised: 10/15/2019 Document Reviewed: 10/15/2019 [employer] Patient Education 2019 [employer]. Follow Up Care 04/01/2021 14:51:08 With:Elan Peterson MD, Lino Goodson, URO Address: [facility] [address] , [place] [address]- When:05/12/2022 Comments:w/nancy [facility] 10-26-2021 Note [id number]:127[facility] 04-01-2021 NoteCystoscopy with Stent Removal ? [...] if you have a fever over 100 degrees.[facility] 03-24-2021 [id number]:127[facility]07-21-2021 Hospital Progress notePatient: RIC BERRY MRN: ([id number] Age: 60 years Sex: Male : 1960 Associated Diagnoses: None Author: Marco Alvarado MD Assessment Assessment Diagnosis: Osteoarthritis of left hip (QIN87-NV M16.12, Working, Medical). Plan A medical consult [...] Temperature: 97.7 (12/30 11:10) Pulse: 86 (12/30 10:) Respiration: 10 (12/30 10:) BP: 123/70 (12/30 10:) Pulse Ox: 100 (12/30 10:) Oxygen Delivery: Nasal cannula (12/30) O2 Device Flow: 1 L/min Pain Score: [...] Radiology Report for More Detail Diagnosis Documentation [facility]07-21-2021 Anesthesiology Preoperative evaluation and management notePatient: RIC BERRY MRN: ([id number] Age: 60 years Sex: Male : 1960 [...] 10:44:27 by Mart BAUM , Chelsey Acosta Home Medications: cyanocobalamin = 1 Tab, PO, [...] thou/mcL 12/16/20 10:32, Lymphocyt (more content not included)...[facility] No data available for this section [facility] evaluation noteNo InformationNort Sharp Corporation Other History general Narrative - Reported* Type Description Date Medical History Anxiety Medical History diabetes mallitus Medical History left hip pain Surgical History kidney stone Hospitalization History see above [place] Other History general Narrative - Reported* Type Description Date Medical History Anxiety Medical History diabetes mallitus Medical History left hip pain Surgical History kidney stone Surgical History Left hip replacement Hospitalization History see above [facility] Other Reason for referral (narrative)* Reason Referral for rotator cuff tear Diagnosis 1 Acute pain of left s houlder (M25.512) Diagnosis 2 Nontraumatic incompl ete tear of rotator cuff, unspecified laterality (M75.110) Referral Organization [facility] Bryce yanes Referring Provider First Name Christopher Referring Provider Last Name Bryce Referring Provider Specialty Internal Me dicine Referred Organization [facility] Referred Provider Alfredo Vazquez Referred Address [address] [place], [place],[address] Referred Provider Specialty Orthopedic S urgery Referral Priority Routine General Notes Mr. Berry is being re ferred for further evaluation and treatment of a rotator cuff tear. Clinical Notes MRI completed [facility]ique[facility] Other Summary Purpose Family History No Family History Records FoundNo Family History Records FoundNo Family History Records FoundNo Family History Records Found Advance Directives No Advanced Directives Records FoundNo Advanced Directives Records FoundNo Advanced Directives Records FoundNo Advanced Directives Records Found Procedure Findings Note Patient: RIC BERRY MRN : ([id number] Age: 60 years Sex: Male : 1960 [...] Records FoundNo Status Records FoundNo Status Records FoundNo Status Records Found INFORMATION SOURCE (unrecogn ized section and content) DATE CREATED AUTHOR 03/01/2021 [facility] DATE CREATED AUTHOR AUTHOR'S ORGANIZ ATION [facility]/17/2022 [facility] DATE CREATED AUTHOR AUTHOR'S ORGANIZ ATION 08/24/2022 [facility] DATE CREATED AUTHOR AUTHOR'S ORGANIZ ATION 08/24/2023 [facility] REASON FOR VISIT (unrecogniz ed section and content) Heart FluttersNo Information No InformationNo InformationLab ResultsMedication AErefillFOLLOW UPmedicationsinus infection, 2 wksSINUS INFECTION [phone] sugar check upNo InformationBS readingsBS NOT CONTROLLEDMedicationNo [...] BE BASED ON THE PRIMARY CLINICAL RECORDS. [facility] [employer] [facility]. provides no warranty or guarantee of the accuracy or completeness of information in this document.
--- NOTE | 2023-08-26 20:41 | CT_ITS ---
[address] [address] Patient Name: RIC SANCHEZ MRN: [id number] date: 1960 Sex: M Assigned Patient Location: ER Current Patient Location: ER Accession/Order Number: [id number] Exam Date: 08/26/2023 21:10 Report Date: 08/26/2023 22:26 At the request of: STEFANO BLANCO Procedure: CT abdomen pelvis wo con EXAM: CT abdomen pelvis wo con HISTORY: recent kidney stone, flank pain COMPARISON: 08/20/2023 TECHNIQUE: Dose reduction techniques were achieved by using automated exposure control and/or adjustment of mA and/or kV according to patient size and/or use of iterative reconstruction technique. Noncontrast CT of the abdomen/pelvis. FINDINGS: Lung bases are clear. Hepatic steatosis. There is focal fatty sparing adjacent to the gallbladder fossa. Calcified granulomata of the spleen. Spleen is otherwise normal. Distal esophagus, stomach and duodenum are normal. Gallbladder is normal. Pancreas is normal. Adrenal glands are normal. Moderate left hydronephrosis and hydroureter. Obstructing left distal ureteral stone measuring 0.6 cm (3/125). Bladder is decompressed. No right hydronephrosis. No right hydroureter. No right nephroureterolithiasis. No inguinal, pelvic or retroperitoneal adenopathy. Moderate degeneration of the sacroiliac joints. Left total hip arthroplasty hardware. No apparent hardware complication. No acute osseous abnormality. CT/CT abdomen pelvis wo con IMPRESSION: 1. Moderate left hydronephrosis and hydroureter. Obstructing left distal ureteral stone measuring 0.6 cm (3/125). 2. No right hydronephrosis. No right nephroureterolithiasis. 3. No bladder stones. No bladder wall thickening. 4. Hepatic steatosis. 5. Other findings as described. Electronically authenticated by: NIDA SONG Date: 08/26/2023 22:26
--- NOTE | 2023-08-26 20:41 | ECG_ITS ---
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
--- NOTE | 2023-08-26 20:41 | XR_ITS ---
The [address] [address] Patient Name: RIC SANCHEZ MRN: [id number] date: 1960 Sex: M Assigned Patient Location: ER Current Patient Location: ER Accession/Order Number: [id number] Exam Date: 08/26/2023 21:10 Report Date: 08/26/2023 22:24 At the request of: STEFANO BLANCO Procedure: XR chest 1V EXAMINATION: XR chest 1V, , 08/26/2023 9:10 PM EDT INDICATION: chest pain HISTORY: Ordering Provider Reason for Exam: chest pain Technologist Note: Additional: COMPARISON: XR chest 2V Date 06/13/2023 TECHNIQUE: Chest x-ray: One view. FINDINGS: No pneumothorax, pleural effusion or focal airspace consolidation. Heart is normal in size. Bony thorax is unremarkable. XR/XR chest 1V IMPRESSION: No acute cardiopulmonary process. Electronically authenticated by: MIGUE STEPHENSON Date: 08/26/2023 22:24
--- NOTE | 2023-08-26 20:43 | ED.GENADUL1 ---
HPI - General Adult General Chief complaint: Back Pain/Injury Stated complaint: Flank Pain, Hx Kidney Stones Time Seen by Provider: 08/26/23 20:31 History of Present Illness HPI narrative: Patient diagnosed with proximal ureteral stone on 08/20/23. He was prescribed percocet, flomax and saw urologist in [place] on 08/23/23 and has a procedure planned for 08/29/23. He was feeling better until today when he experienced pain in the flank again - whereas it had moved to the lower abdomen earlier in the week. He also complains of chest pain that began around 7pm. He took a percocet around 7pm without relief and decided to come to the ED for evaluation. He took a xanax around 8pm and the pain seemed to resolve before suddenly returning just before his arrival to our ED. No urinary symptoms. Related Data Previous Rx's Medication Instructions Recorded ondansetron 4 mg disintegrating 4 mg PO Q6H PRN nausea and 08/20/23 tablet vomiting #20 tabs oxycodone-acetaminophen 5 mg-325 1 tab PO Q6H PRN pain 5 days #20 08/20/23 mg tablet (Percocet) tabs tamsulosin 0.4 mg capsule (Flomax) 0.4 mg PO DAILY #7 caps 08/20/23 tamsulosin 0.4 mg capsule (Flomax) 0.4 mg PO DAILY PRN kidney stone 08/26/23 #14 caps Allergies Allergy/AdvReac Type Severity Reaction Status Date / Time No Known Drug Allergies Allergy Verified 08/26/23 20:32 PFSH PFSH Social History Smoking status: Former smoker Exam Constitutional Vital Signs, click to edit/add: Last Vital Signs Temp 98 F 08/26/23 20:25 Pulse 86 08/26/23 20:25 Resp 16 08/26/23 20:25 BP 143/84 H 08/26/23 20:25 Pulse Ox 97 08/26/23 20:25 O2 Del Method Room Air 08/26/23 20:25 Course Vital Signs Vital signs: Vital Signs Temperature 98 F 08/26/23 20:25 Pulse Rate 86 08/26/23 20:25 Respiratory Rate 16 08/26/23 20:25 Blood Pressure 143/84 H 08/26/23 20:25 Pulse Oximetry 97 08/26/23 20:25 Oxygen Delivery Method Room Air 08/26/23 20:25 Temperature 98 F 08/26/23 20:25 Pulse Rate 86 08/26/23 20:25 Respiratory Rate 16 08/26/23 20:25 Blood Pressure 143/84 H 08/26/23 20:25 Pulse Oximetry 97 08/26/23 20:25 Oxygen Delivery Method Room Air 08/26/23 20:25 Medical Decision Making MDM Narrative Medical decision making narrative: Patient was placed on cardiac monitor technician and EKG obtained. Blood drawn and sent for evaluation. Patient ordered to get XR chest and CT abd/pelvis. He was ordered to receive 1L NS IVF along with IV Toradol for his pain and IV Zofran for his nausea. CBC, CMP, troponin, BNP, EKG all normal. Chest x-ray unremarkable. The patient's chest pain was likely associated with some anxiety as he improved after taking Xanax and his cardiac workup in the ED is unremarkable. UA is negative. CT abdomen pelvis = distal L ureteral stone - no additional stones identified. Patient informed of results. He felt less painon recheck at 1045pm. Patient prescribed additional Flomax. he still has zofran and percocet at home. Lab Data Lab results reviewed: Yes I reviewed the patient's lab results Labs: Lab Results 08/26/23 08/26/23 Range/Units 20:55 20:59 WBC 10.2 (4.0-11.0) 10^3/uL RBC 5.06 (4.70-6.10) 10^6/uL Hgb 15.2 (14.0-18.0) g/dL Hct 43.7 (42.0-54.0) % MCV 86.4 (80.0-94.0) fL MCH 30.0 (25.9-34.0) pg MCHC 34.8 (29.9-35.2) g/dL RDW 12.7 (11.0-15.0) % Plt Count 235 (150-450) 10^3/uL MPV 10.4 (9.5-13.5) fL Neut % (Auto) 61.8 (43.0-75.0) % Lymph % (Auto) 28.4 (20.5-60.0) % [place] % (Auto) 7.2 (1.7-12.0) % Eos % (Auto) 1.9 (0.9-7.0) % Baso % (Auto) 0.4 (0.2-2.0) % Neut # (Auto) 6.3 (1.4-6.5) 10^3/uL Lymph # (Auto) 2.9 (1.2-3.8) 10^3/uL [place] # (Auto) 0.7 (0.3-0.8) 10^3/uL Eos # (Auto) 0.2 (0.0-0.7) 10^3/uL Baso # (Auto) 0.0 (0.0-0.1) 10^3/uL Abs Immat Gran (auto) 0.03 (0.00-0.03) 10^3/uL Imm/Tot Granulo (auto) 0.3 (0.0-0.5) % Sodium 137 (136-145) mmol/L Potassium 3.9 (3.5-5.1) mmol/L Chloride 102 (98-107) mmol/L Carbon Dioxide 26.3 (21.0-32.0) mmol/L Anion Gap 12.6 BUN 18.0 (7.0-18.0) mg/dL Creatinine 1.12 (0.70-1.30) mg/dL Est GFR ( Amer) >60 (>=60) Est GFR (Non-Af Amer) >60 (>=60) BUN/Creatinine Ratio 16.1 Glucose 152 H (74-106) mg/dL Calcium 9.1 (8.5-10.1) mg/dL Total Bilirubin 0.6 (0.2-1.0) mg/dL AST 32 (15-37) U/L ALT 46 (16-63) U/L Alkaline Phosphatase 75 (46-116) U/L Troponin I High Sens <4.0 L (4.0-76.1) pg/mL NT-Pro-B Natriuret Pep 20.0 (<=900.0) pg/mL Total Protein 7.3 (6.4-8.2) g/dL Albumin 3.6 (3.4-5.0) g/dL Globulin 3.7 g/dL Albumin/Globulin Ratio 1.0 Urine Color Yellow (YELLOW) Urine Clarity Clear (CLEAR) Urine pH 5.5 (5.0-9.0) Ur Specific [place] 1.025 (1.005-1.025) Urine Protein Negative (NEG/TRACE) mg/dL Urine Glucose (UA) Negative (NEGATIVE) mg/dL Urine Ketones Negative (NEGATIVE) mg/dL Urine Occult Blood Trace-i (NEGATIVE) Urine Nitrite Negative (NEGATIVE) Urine Bilirubin Negative (NEGATIVE) Urine Urobilinogen 0.2 (0.2-1.0) EU/dL Ur Leukocyte Esterase Negative (NEGATIVE) Urine RBC 0-2 (0-2) #/HPF Urine WBC None seen (NONE SEEN) #/HPF Ur Squamous Epith Cells None seen (NONE/RARE) #/LPF Urine Crystals None seen (None Seen) #/HPF Urine Bacteria None seen (NONE SEEN) #/HPF Urine Casts None seen (NONE SEEN) #/LPF Urine Mucus None seen (NONE SEEN) Imaging Data CXR & CT ABD/PELVIS: Radiologist's impression: ITS Impressions Abdomen/Pelvis CT 08/26/23 20:41 IMPRESSION: 1. Moderate left hydronephrosis and hydroureter. Obstructing left distal ureteral stone measuring 0.6 cm (3/125). 2. No right hydronephrosis. No right nephroureterolithiasis. 3. No bladder stones. No bladder wall thickening. 4. Hepatic steatosis. 5. Other findings as described. Electronically authenticated by: NIDA SONG Date: 08/26/2023 22:26 Chest X-Ray 08/26/23 20:41 IMPRESSION: No acute cardiopulmonary process. Electronically authenticated by: MIGUE STEPHENSON Date: 08/26/2023 22:24 ECG Data Attestation: I personally reviewed and interpreted this ECG as follows: Interpretation: EKG interpretation: Emergency Department physician interpretation. Normal sinus rhythm at 79bpm. Normal axis, normal intervals and no ST segment elevation or depression. Discharge Plan Discharge Stand Alone Forms: Portal Instructions Chief Complaint: Back Pain/Injury Clinical Impression: Calculus of kidney, Hydronephrosis, Hydroureter Patient Disposition: Home, Self-Care Time of Disposition Decision: 22:53 Prescriptions / Home Meds: New tamsulosin [Flomax] 0.4 mg capsule 0.4 mg PO DAILY PRN (Reason: kidney stone) Qty: 14 0RF No Action tamsulosin [Flomax] 0.4 mg capsule 0.4 mg PO DAILY Qty: 7 0RF oxycodone-acetaminophen [Percocet] 5-325 mg tablet 1 tab PO Q6H PRN (Reason: pain) 5 Days Qty: 20 0RF ondansetron 4 mg tablet,disintegrating 4 mg PO Q6H PRN (Reason: nausea and vomiting) Qty: 20 0RF Instructions: Kidney Stones (ED), Hydronephrosis (ED) Additional Instructions: Follow up with Dr Joann Hernandez urologist [facility] on MondayAug 28 as scheduled
[2023-08-26] MEDS: 0.9 % SODIUM CHLORIDE 1,000 ML 999 ML IV (21:00)
[2023-08-26] MEDS: ONDANSETRON PF 4 MG/2 ML VIAL IV (21:01)
[2023-08-26] MEDS: KETOROLAC TROMETHAMINE 30 MG/ML VIAL IVP (21:01)
[2023-08-26 21:15] LABS: Basophils Percent Auto 0.4 % (0.2-2.0); Eosinophils Absolute Auto 0.2 10^3/uL (0.0-0.7); Eosinophils Percent Auto 1.9 % (0.9-7.0); Hematocrit 43.7 % (42.0-54.0); Hemoglobin 15.2 g/dL (14.0-18.0); Immature Granulocytes Abs Auto 0.03 10^3/uL (0.00-0.03); Immature Granulocytes Pct Auto 0.3 % (0.0-0.5); Lymphocytes Absolute Auto 2.9 10^3/uL (1.2-3.8); Lymphocytes Percent Auto 28.4 % (20.5-60.0); Mean Corpuscular HGB Conc 34.8 g/dL (29.9-35.2); Mean Corpuscular Volume 86.4 fL (80.0-94.0); Mean Platelet Volume 10.4 fL (9.5-13.5); Monocytes Absolute Auto 0.7 10^3/uL (0.3-0.8); Monocytes Percent Auto 7.2 % (1.7-12.0); Neutrophils Absolute Auto 6.3 10^3/uL (1.4-6.5); Neutrophils Percent Auto 61.8 % (43.0-75.0); Platelet Count 235 10^3/uL (150-450); Red Blood Count 5.06 10^6/uL (4.70-6.10); Red Cell Distribution Width 12.7 % (11.0-15.0); White Blood Count 10.2 10^3/uL (4.0-11.0)
[2023-08-26 21:16] LABS: Bilirubin Urine NEGATIVE (NEGATIVE); Blood Urine TRACE-I (NEGATIVE); Clarity Urine CLEAR (CLEAR); Color Urine YELLOW (YELLOW); Glucose Urine UA NEGATIVE (NEGATIVE); Ketones Urine NEGATIVE (NEGATIVE); Leukocyte Esterase Urine NEGATIVE (NEGATIVE); Nitrite Urine NEGATIVE (NEGATIVE); Protein Urine NEGATIVE (NEG/TRACE); Specific Gravity Urine 1.025 (1.005-1.025); Urine Microscopic Indicated YES; Urobilinogen Urine 0.2 EU/dL (0.2-1.0); pH Urine 5.5 (5.0-9.0)
[2023-08-26 21:22] LABS: Anion Gap 12.6
[2023-08-26 21:24] LABS: RBC Urine 0-2 #/HPF (0-2); WBC Urine NONE SEEN #/HPF (NONE SEEN)
[2023-08-26 21:25] LABS: Bacteria Urine NONE SEEN #/HPF (NONE SEEN); Cast Seen? NONE SEEN #/LPF (NONE SEEN); Crystals Seen? None Seen #/HPF (None Seen); Mucus Urine NONE SEEN (NONE SEEN); Squamous Epithelial Cell Urine NONE SEEN #/LPF (NONE/RARE)
[2023-08-26 21:28] LABS: Alanine Aminotransferase 46 U/L (16-63); Albumin Level 3.6 g/dL (3.4-5.0); Alkaline Phosphatase 75 U/L (46-116); Aspartate Amino Transferase 32 U/L (15-37); BUN Creatinine Ratio 16.1; Bilirubin Total 0.6 mg/dL (0.2-1.0); Calcium 9.1 mg/dL (8.5-10.1); Carbon Dioxide 26.3 mmol/L (21.0-32.0); Chloride 102 mmol/L (98-107); Estimated GFR (African America >60 (>=60); Estimated GFR (Non-African Ame >60 (>=60); Globulin 3.7 g/dL; Glucose 152 mg/dL (74-106); Potassium 3.9 mmol/L (3.5-5.1); Sodium 137 mmol/L (136-145); Total Protein 7.3 g/dL (6.4-8.2); Troponin I High Sensitivity <4.0 pg/mL (4.0-76.1)
== END 2023-08-26 23:17 | disposition home or self-care (01) ==
PROVIDERS: Emergency Provider Emergency Medicine; PCP Internal Medicine
DX: N13.2 Hydronephrosis with renal and ureteral calculous obstruction (principal); Z87.891 Personal history of nicotine dependence
CPT/HCPCS: 36415; 71045; 74176; 80053; 81001; 83880; 84484; 85025; 93005; 96374; 96375; 99285

== ENCOUNTER 2023-08-28 07:25 | Emergency (ER) | payer OTHER, SELFPAY ==
[2023-08-28 07:29] VITALS: BP 129/71; PULSE 81; RESP 18; TEMP 36.5; O2SAT 97; BMI 20.9
--- OUTSIDE RECORDS SUMMARY | 2023-08-28 07:36 | XMS_ITS | CCD ---
Author Name Unknown Address [id number] [place] [address] Organization [facility] Team Providers Care Object Oriented Developer Name Role Phone CHRISTOPHER WU Primary Care Physician Lino Ansari Attending Unavailable Elan, Lino Goodson Admitting Unavailable Elan, Lino Goodson Referring Unavailable Ansari, Lino Goodson Attending Unavailable Elan, Lino Goodson Admitting Unavailable Elan, Lino Goodson Referring Unavailable Elan, Lino Goodson Referring Unavailable Elan, Lino Goodson Attending Unavailable Elan, Lino Goodson Admitting Unavailable Elan, Lino Goodson Attending Unavailable HAFSA, LYEDI Attending Unavailable HAFSA, LEYDI Admitting Unavailable BRYCE, [...] BRYCE, DR SNOWDEN Consulting Unavailable BRYCE, DR SNOWDNE Attending Unavailable BRYCE, DR SNOWDEN Admitting Unavailable Bryce, Christopher Unavailable Kacey Vazquez Unavailable JOHNNIE CARTER Referring Unavailable CHRISTOPHER WU Primary Care Unavailable Allergies Allergy Classification Reported Allergen(s) Allergy Type Date of Onset Reaction(s) Facility (2 sources) Baclofen; 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: [baclofen] Drug Allergy 11-12-19 17 Unknown [facility] (2 sources) celecoxib; 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: [celecoxib] Drug Allergy 03-29-20 20 [facility] (16 sources) Iodine; 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: [iodine] Drug Allergy Unknown (qualifier value) [facility] Comment on above: pt states radioactiv e iodine only, not topical (1 source) Baclofen Drug Allergy 11-13-19 17 [facility] (1 source) celecoxib Drug Allergy 03-30-20 20 [facility] (1 source) Iodine (And Iodine Containting Drugs) Drug allergy (disorder) 03-30-20 20 [facility] (14 sources) Azithromycin Drug Allergy Unknown [facility] Other (20 sources) Ciprofloxacin Drug Allergy Unknown [facility] Other (14 sources) Sulfamethoxazole / Trimethoprim Drug Allergy Unknown [facility] Other (1 source) patient allergy list reviewed by nurse or physicia Propensity to adverse reactions 01-03-20 Comment:Done [facility] Other Medications Current Medications Medication Drug Class(es) [...] oral tablet (16 sources) alpha-Adrenergic Agonist, Uncompetitive E-ofvzgy-H-aspartate Receptor Antagonist, Sigma-1 Agonist Start: 11-26-2022 take [...] sources) Long-term current use of insulin; 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: [[facility] (current) use of insulin] Episodic Other aftercare (1 source) 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 Cipriano Simon Basophils/100 WBC (Bld) 0.8 % Normal 0.2-2.0 [facility] Comment on above: Performed By: #### C MP, TSH #### [facility] [address] [address] [address] Cipriano Simon EO # 0.1 103/ul Normal 0.0-0.7 [facility] Comment on above: Performed By: #### C MP, TSH #### [facility] [address] [place] [address] Dr. Cipriano Simon Eosinophils/100 WBC (Bld) 1.8 % Normal 0.9-7.0 [facility] Comment on above: Performed By: #### C MP, TSH #### [facility] [address] [place] [address] Dr. Cipriano Simon Erythrocyte distribution width (RBC) [Ratio] 12.8 % Normal 11.0-15.0 [facility] Comment on above: Performed By: #### C MP, TSH #### [facility] [address] [place] [address] Dr. Cipriano Simon Hematocrit (Bld) [Volume fraction] 46.3 % Normal 42.0-54.0 [facility] Comment on above: Performed By: #### C MP, TSH #### [facility] [address] [place] [address] Dr. Cipriano Simon Hemoglobin (Bld) [Mass/Vol] 15.8 g/dL Normal 14.0-18.0 [facility] Comment on above: Performed By: #### C MP, TSH #### [facility] [address] [place] [address] Dr. Cipriano Simon IG # 0.05 10e3/ul Critically high 0.00-0.03 [facility] Comment on above: Performed By: #### C MP, TSH #### [facility] [address] [place] [address] Dr. Cipriano Simon IG % 1.0 % Critically high 0.0-0.5 [facility] Comment on above: Performed By: #### C MP, TSH #### [facility] [address] [place] [address] Dr. Cipriano Simon LYMPH # 2.6 103/ul Normal 1.2-3.8 [facility] Comment on above: Performed By: #### C MP, TSH #### [facility] [address] [place] [address] Dr. Cipriano Simon Lymphocytes/100 WBC (Bld) 52.7 % Normal 20.5-60.0 [facility] Comment on above: Performed By: #### C MP, TSH #### [facility] [address] [place] [address] Dr. Cipriano Simon MANUAL DIFF REQ NO Normal [facility] Comment on above: Performed By: #### C MP, TSH #### [facility] [address] [place] [address] Dr. Cipriano Simon MCH (RBC) [Entitic mass] 29.0 pg Normal 25.9-34.0 [facility] Comment on above: Performed By: #### C MP, TSH #### [facility] [address] [place] [address] Dr. Cipriano Simon MCHC (RBC) [Mass/Vol] 34.1 g/dL Normal 29.9-35.2 [facility] Comment on above: Performed By: #### C MP, TSH #### [facility] [address] [place] [address] Dr. Cipriano Simon MCV (RBC) [Entitic vol] 85.0 fL Normal 80.0-94.0 [facility] Comment on above: Performed By: #### C MP, TSH #### [facility] [address] [place] [address] Dr. Cipriano Simon MONO # 0.4 103/ul Normal 0.3-0.8 [facility] Comment on above: Performed By: #### C MP, TSH #### [facility] [address] [place] [address] Dr. Cipriano Simon Monocytes/100 WBC (Bld) 7.2 % Normal 1.7-12.0 [facility] Comment on above: Performed By: #### C MP, TSH #### [facility] [address] [place] [address] Dr. Cipriano Simon NEUT # 1.8 103/ul Normal 1.4-6.5 [facility] Comment on above: Performed By: #### C MP, TSH #### [facility] [address] [place] [address] Dr. Cipriano Simon Neutrophils/100 WBC (Bld) 36.5 % Critically low 43.0-75.0 [facility] Comment on above: Performed By: #### C MP, TSH #### [facility] [address] [place] [address] Dr. Cipriano Simon Platelet mean volume (Bld) [Entitic vol] 10.7 fL Normal 9.5-13.5 [facility] Comment on above: Performed By: #### C MP, TSH #### [facility] [address] [place] [address] Dr. Cipriano Simon PLT 214 103/ul Normal 150-450 [facility] Comment on above: Performed By: #### C MP, TSH #### [facility] [address] [place] [address] Dr. Cipriano Simon RBC 5.45 106/ul Normal 4.70-6.10 [facility] Comment on above: Performed By: #### C MP, TSH #### [facility] [address] [place] [address] Dr. Cipriano Simon WBC 5.0 103/ul Normal 4.0-11.0 [facility] Comment on above: Performed By: #### C MP, TSH #### [facility] [address] [place] [address] Dr. Cipriano Simon GLYCOHEMOGLOBIN A1Con 2022 ADA RECOMMENDATION SEE BELOW Normal [facility] Comment on above: Result Comment: ADA RECOMMENDED LIMIT 4.0 - 6.0 ADA THERAPEUTIC TARGET < 7.0 ACTION SUGGESTED > 7.0 Performed By: #### C MP, TSH #### [facility] [address] [place] [address] Dr. Cipriano Simon Glucose [Mass/Vol] 209 mg/dL Normal [facility] Comment on above: Performed By: #### C MP, TSH #### [facility] [address] [place] [address] Dr. Cipriano Simon HbA1c (Bld) [Mass fraction] 8.9 % Critically high 4.5-6.2 [facility] Comment on above: Performed By: #### C MP, TSH #### [facility] [address] [place] [address] Dr. Cipriano Simon MICROALBUMIN, RAND URon 03-0 mALB 1.8 mg/L Normal <=30.0 [facility] Comment on above: Performed By: #### M ALBR #### [facility] [address] [place] [address] Dr. Ciprinao Simon PROF 14(COMP METB)on 023 Albumin [Mass/Vol] 4.1 g/dL Normal 3.4-5.0 [facility] Comment on above: Performed By: #### C MP, TSH #### [facility] [address] [place] [address] Dr. Cipriano Simon Albumin/Globulin [Mass ratio] 1.2 {ratio} Normal [facility] Comment on above: Performed By: #### C MP, TSH #### [facility] [address] [place] [address] Dr. Cipriano Simon ALP [Catalytic activity/Vol] 106 U/L Normal 46-116 [facility] Comment on above: Performed By: #### C MP, TSH #### [facility] [address] [place] [address] Dr. Cipriano Simon ALT [Catalytic activity/Vol] 42 U/L Normal 16-63 [facility] Comment on above: Performed By: #### C MP, TSH #### [facility] [address] [place] [address] Dr. Cipriano Simon Anion gap [Moles/Vol] 12.7 mmol/L Normal [facility] Comment on above: Performed By: #### C MP, TSH #### [facility] [address] [place] [address] Dr. Cipriano Simon AST [Catalytic activity/Vol] 15 U/L Normal 15-37 [facility] Comment on above: Performed By: #### C MP, TSH #### [facility] [address] [address] [address] Cipriano Simon Bilirubin [Mass/Vol] 0.5 mg/dL Normal 0.2-1.0 [facility] Comment on above: Performed By: #### C MP, TSH #### [facility] [address] [address] [address] Cipriano Simon Calcium [Mass/Vol] 8.9 mg/dL Normal 8.5-10.1 [facility] Comment on above: Performed By: #### C MP, TSH #### [facility] [address] [place] [address] Dr. Cipriano Simon Chloride [Moles/Vol] 101 mmol/L Normal 98-107 [facility] Comment on above: Performed By: #### C MP, TSH #### [facility] [address] [place] [address] Dr. Cipriano Simon CO2 [Moles/Vol] 29.1 mmol/L Normal 21.0-32.0 [facility] Comment on above: Performed By: #### C MP, TSH #### [facility] [address] [place] [address] Dr. Cipriano Simon Creatinine [Mass/Vol] 0.95 mg/dL Normal 0.70-1.30 [facility] Comment on above: Performed By: #### C MP, TSH #### [facility] [address] [place] [address] Dr. Cipriano Simon EGFR-AF UGANDAN >60 Normal >=60 [facility] Comment on above: Performed By: #### C MP, TSH #### [facility] [address] [place] [address] Dr. Cipriano Simon EGFR-NON AF UGANDAN >60 Normal >=60 [facility] Comment on above: Performed By: #### C MP, TSH #### [facility] [address] [place] [address] Dr. Cipriano Simon Globulin (S) [Mass/Vol] 3.5 g/dL Normal [facility] Comment on above: Performed By: #### C MP, TSH #### [facility] [address] [address] [address] Cipriano Simon Glucose [Mass/Vol] 256 mg/dL Critically high 74-106 [facility] Comment on above: Performed By: #### C MP, TSH #### [facility] [address] [place] [address] Dr. Cipriano Simon Potassium [Moles/Vol] 3.8 mmol/L Normal 3.5-5.1 [facility] Comment on above: Performed By: #### C MP, TSH #### [facility] [address] [place] [address] Dr. Cipriano Simon Protein [Mass/Vol] 7.6 g/dL Normal 6.4-8.2 [facility] Comment on above: Performed By: #### C MP, TSH #### [facility] [address] [place] [address] Dr. Cipriano Simon Sodium [Moles/Vol] 139 mmol/L Normal 136-145 [facility] Comment on above: Performed By: #### C MP, TSH #### [facility] [address] [place] [address] Dr. Cipriano Simon Urea nitrogen [Mass/Vol] 14.0 mg/dL Normal 7.0-18.0 [facility] Comment on above: Performed By: #### C MP, TSH #### [facility] [address] [place] [address] Dr. Cipriano Simon Urea nitrogen/Creatinine [Mass ratio] 14.7 mg/mg Normal [facility] Comment on above: Performed By: #### C MP, TSH #### [facility] [address] [place] [address] Dr. Cipriano Simon TSHon 08-17-2022 TSH 1.540 uIU/mL Normal 0.358-3.740 [facility] Comment on above: Performed By: #### C MP, TSH #### [facility] [address] [place] [address] Dr. Cipriano Simon RAD - MISCon 03-16-2022 RAD - MISC [id number] Normal [facility] TESTOSTERONE, TOTALon 2021 Testosterone [Mass/Vol] 906 ng/dL Normal 264-916 [facility] Comment on above: Result Comment: Adul t male reference interval is based on a population of healthy nonobese males (BMI <30) between 19 and 39 years old. Iban, et.al. JCEM 2017,102;0160-4972. PMID: [id number]. Performed By: #### C MP, TSH #### [facility] [address] [address] [address] Cipriano Simon GLYCOHEMOGLOBIN A1Con 2021 ADA RECOMMENDATION SEE BELOW Normal [facility] Comment on above: Result Comment: ADA RECOMMENDED LIMIT 4.0 - 6.0 ADA THERAPEUTIC TARGET < 7.0 ACTION SUGGESTED > 7.0 Performed By: #### A 1C #### [facility] [address] [address] [address] Cipriano Simon Glucose [Mass/Vol] 171 mg/dL Normal [facility] Comment on above: Performed By: #### A 1C #### [facility] [address] [address] [address] Cipriano Simon HbA1c (Bld) [Mass fraction] 7.6 % Critically high 4.5-6.2 [facility] Comment on above: Performed By: #### A 1C #### [facility] [address] [address] [address] Cipriano Simon XR KUB 1 VIEWon [...] CASE SANDY Date: 2022-03-15 08:36 Normal [facility] XR LSPINE 2_3 VIEWSon 2021 XR [...] CASE SANDY Date: 2022-03-15 08:44 Normal [facility] AMYLASEon 01-25-2022 Amylase [Catalytic activity/Vol] 55 U/L Normal 25-115 [facility] Comment on above: Performed By: #### C MP, LIPA, CMADM, RISSA #### [facility] [address] [address] [address] Cipriano Simon CARDIAC MELINDA ADMITon 022 CK [Catalytic activity/Vol] 76 U/L Normal 39-308 [facility] Comment on above: Performed By: #### C MP, LIPA, CMADM, RISSA #### [facility] [address] [address] [address] Cipriano Simon CK.MB [Mass/Vol] ng/mL Normal <=3.60 [facility] Comment on above: Performed By: #### C MP, LIPA, CMADM, RISSA #### [facility] [address] [address] [address] Cipriano Simon HSTROP 4.8 pg/mL Normal 4.0-76.1 [facility] Comment on above: Result Comment: CUT- OFF POINTS HAVE BEEN ESTABLISHED BASED ON THE FOURTH UNIVERSAL DEFINITIONS OF MYOCARDIAL INFARCTION. THE UPPER REFERENCE LIMIT (URL) OF TROPONIN, DEFINED THE 99TH PERCENTILE OF cTnI DISTRIBUTION IN A REFERENCE POPULATION, HAS BEEN CONFIRMED THE DECISION THRESHOLD FOR LA DIAGNOSIS. Performed By: #### C MP, LIPA, CMADM, RISSA #### [facility] [address] [place] [address] Dr. Cipriano Simon GEOVANNA 33 ng/mL Normal 16-96 [facility] Comment on above: Performed By: #### C MP, LIPA, CMADM, RISSA #### [facility] [address] [place] [address] Dr. Cipriano Simon CBC AUTO DIFFon 01-25-2022 BASO # 0.0 103/ul Normal 0.0-0.1 [facility] Comment on above: Performed By: #### A 1C #### [facility] [address] [place] [address] Dr. Cipriano Simon Basophils/100 WBC (Bld) 0.3 % Normal 0.2-2.0 [facility] Comment on above: Performed By: #### A 1C #### [facility] [address] [place] [address] Dr. Cipriano Simon EO # 0.1 103/ul Normal 0.0-0.7 [facility] Comment on above: Performed By: #### A 1C #### [facility] [address] [place] [address] Dr. Cipriano Simon Eosinophils/100 WBC (Bld) 1.7 % Normal 0.9-7.0 [facility] Comment on above: Performed By: #### A 1C #### [facility] [address] [place] [address] Dr. Cipriano Simon Erythrocyte distribution width (RBC) [Ratio] 12.7 % Normal 11.0-15.0 [facility] Comment on above: Performed By: #### A 1C #### [facility] [address] [place] [address] Dr. Cipriano Simon Hematocrit (Bld) [Volume fraction] 43.3 % Normal 42.0-54.0 [facility] Comment on above: Performed By: #### A 1C #### [facility] [address] [place] [address] Dr. Cipriano Simon Hemoglobin (Bld) [Mass/Vol] 15.1 g/dL Normal 14.0-18.0 [facility] Comment on above: Performed By: #### A 1C #### [facility] [address] [place] [address] Dr. Cipriano Simon IG # 0.04 10e3/ul Critically high 0.00-0.03 [facility] Comment on above: Performed By: #### A 1C #### [facility] [address] [place] [address] Dr. Cipriano Simon IG % 0.6 % Critically high 0.0-0.5 [facility] Comment on above: Performed By: #### A 1C #### [facility] [address] [place] [address] Dr. Cipriano Simon LYMPH # 2.9 103/ul Normal 1.2-3.8 [facility] Comment on above: Performed By: #### A 1C #### [facility] [address] [place] [address] Dr. Cipriano Simon Lymphocytes/100 WBC (Bld) 42.1 % Normal 20.5-60.0 [facility] Comment on above: Performed By: #### A 1C #### [facility] [address] [place] [address] Dr. Cipriano Simon MANUAL DIFF REQ NO Normal [facility] Comment on above: Performed By: #### A 1C #### [facility] [address] [place] [address] Dr. Cipriano Simon MCH (RBC) [Entitic mass] 29.5 pg Normal 25.9-34.0 [facility] Comment on above: Performed By: #### A 1C #### [facility] [address] [place] [address] Dr. Cipriano Simon MCHC (RBC) [Mass/Vol] 34.9 g/dL Normal 29.9-35.2 [facility] Comment on above: Performed By: #### A 1C #### [facility] [address] [place] [address] Dr. Cipriano Simon MCV (RBC) [Entitic vol] 84.7 fL Normal 80.0-94.0 [facility] Comment on above: Performed By: #### A 1C #### [facility] [address] [address] [address] Cipriano Simon MONO # 0.4 103/ul Normal 0.3-0.8 [facility] Comment on above: Performed By: #### A 1C #### [facility] [address] [place] [address] Dr. Cipriano Simon Monocytes/100 WBC (Bld) 5.5 % Normal 1.7-12.0 [facility] Comment on above: Performed By: #### A 1C #### [facility] [address] [place] [address] Dr. Cipriano Simon NEUT # 3.4 103/ul Normal 1.4-6.5 [facility] Comment on above: Performed By: #### A 1C #### [facility] [address] [place] [address] Dr. Cipriano Simon Neutrophils/100 WBC (Bld) 49.8 % Normal 43.0-75.0 [facility] Comment on above: Performed By: #### A 1C #### [facility] [address] [place] [address] Dr. Cipriano Smion Platelet mean volume (Bld) [Entitic vol] 9.4 fL Critically low 9.5-13.5 [facility] Comment on above: Performed By: #### A 1C #### [facility] [address] [place] [address] Dr. Cipriano Simon PLT 238 103/ul Normal 150-450 [facility] Comment on above: Performed By: #### A 1C #### [facility] [address] [place] [address] Dr. Cipriano Simon RBC 5.11 106/ul Normal 4.70-6.10 [facility] Comment on above: Performed By: #### A 1C #### [facility] [address] [place] [address] Dr. Cipriano Simon WBC 6.9 103/ul Normal 4.0-11.0 [facility] Comment on above: Performed By: #### A 1C #### [facility] [address] [place] [address] Dr. Cipriano Simon LACTATE/LACTIC ACIDon 2021 Lactate [Moles/Vol] 1.2 mmol/L Normal 0.4-1.9 [facility] Comment on above: Performed By: #### A 1C #### [facility] [address] [place] [address] Dr. Cipriano Simon LIPASEon 01-25-2022 Lipase [Catalytic activity/Vol] 89.0 U/L Normal 73.0-393.0 [facility] Comment on above: Performed By: #### C MP, LIPA, CMADM, RISSA #### [facility] [address] [place] [address] Dr. Cipriano Simon PROF 14(COMP METB)on 022 Albumin [Mass/Vol] 3.8 g/dL Normal 3.4-5.0 [facility] Comment on above: Performed By: #### C MP, LIPA, CMADM, RISSA #### [facility] [address] [place] [address] Dr. Cipriano Simon Albumin/Globulin [Mass ratio] 1.1 {ratio} Normal [facility] Comment on above: Performed By: #### C MP, LIPA, CMADM, RISSA #### [facility] [address] [place] [address] Dr. Cipriano Simon ALP [Catalytic activity/Vol] 111 U/L Normal 46-116 [facility] Comment on above: Performed By: #### C MP, LIPA, CMADM, RISSA #### [facility] [address] [place] [address] Dr. Cipriano Simon ALT [Catalytic activity/Vol] 41 U/L Normal 16-63 [facility] Comment on above: Performed By: #### C MP, LIPA, CMADM, RISSA #### [facility] [address] [place] [address] Dr. Cipriano Simon Anion gap [Moles/Vol] 11.5 mmol/L Normal [facility] Comment on above: Performed By: #### C MP, LIPA, CMADM, RISSA #### [facility] [address] [place] [address] Dr. Cipriano Simon AST [Catalytic activity/Vol] 16 U/L Normal 15-37 [facility] Comment on above: Performed By: #### C MP, LIPA, CMADM, RISSA #### [facility] [address] [place] [address] Dr. Cipriano Simon Bilirubin [Mass/Vol] 0.5 mg/dL Normal 0.2-1.0 [facility] Comment on above: Performed By: #### C MP, LIPA, CMADM, RISSA #### [facility] [address] [place] [address] Dr. Cipriano Simon Calcium [Mass/Vol] 9.0 mg/dL Normal 8.5-10.1 [facility] Comment on above: Performed By: #### C MP, LIPA, CMADM, RISSA #### [facility] [address] [place] [address] Dr. Cipriano Simon Chloride [Moles/Vol] 101 mmol/L Normal 98-107 [facility] Comment on above: Performed By: #### C MP, LIPA, CMADM, RISSA #### [facility] [address] [place] [address] Dr. Cipriano Simon CO2 [Moles/Vol] 26.1 mmol/L Normal 21.0-32.0 [facility] Comment on above: Performed By: #### C MP, LIPA, CMADM, RISSA #### [facility] [address] [place] [address] Dr. Cipriano Simon Creatinine [Mass/Vol] 0.84 mg/dL Normal 0.70-1.30 [facility] Comment on above: Performed By: #### C MP, LIPA, CMADM, RISSA #### [facility] [address] [place] [address] Dr. Cipriano Simon EGFR-AF UGANDAN >60 Normal >=60 [facility] Comment on above: Performed By: #### C MP, LIPA, CMADM, RISSA #### [facility] [address] [place] [address] Dr. Cipriano Simon EGFR-NON AF UGANDAN >60 Normal >=60 [facility] Comment on above: Performed By: #### C MP, LIPA, CMADM, RISSA #### [facility] [address] [address] [address] Cipriano Simon Globulin (S) [Mass/Vol] 3.4 g/dL Normal [facility] Comment on above: Performed By: #### C MP, LIPA, CMADM, RISSA #### [facility] [address] [address] [address] Cipriano Simon Glucose [Mass/Vol] 245 mg/dL Critically high 74-106 T [facility] Comment on above: Performed By: #### C MP, LIPA, CMADM, RISSA #### [facility] [address] [place] [address] Dr. Cipriano Simon Potassium [Moles/Vol] 3.6 mmol/L Normal 3.5-5.1 [facility] Comment on above: Performed By: #### C MP, LIPA, CMADM, RISSA #### [facility] [address] [address] [address] Cipriano Simon Protein [Mass/Vol] 7.2 g/dL Normal 6.4-8.2 [facility] Comment on above: Performed By: #### C MP, LIPA, CMADM, RISSA #### [facility] [address] [place] [address] Dr. Cipriano Simon Sodium [Moles/Vol] 135 mmol/L Critically low 136-145 [facility] Comment on above: Performed By: #### C MP, LIPA, CMADM, RISSA #### [facility] [address] [address] [address] Cipriano Simon Urea nitrogen [Mass/Vol] 13.0 mg/dL Normal 7.0-18.0 [facility] Comment on above: Performed By: #### C MP, LIPA, CMADM, RISSA #### [facility] [address] [address] [address] Cipriano Simon Urea nitrogen/Creatinine [Mass ratio] 15.5 mg/mg Normal [facility] Comment on above: Performed By: #### C MP, LIPA, CMADM, RISSA #### [facility] [address] [place] [address] Dr. Cipriano Simon XR ABD FLAT UP_PA [...] BRIA [place] Date: 2022-01-25 02:00 Normal [facility] CBC AUTO DIFFon 12-21-2021 BASO # 0.0 103/ul Normal 0.0-0.1 [facility] Comment on above: Performed By: #### C MP, TSH #### [facility] [address] [place] [address] Dr. Cpiriano Simon Basophils/100 WBC (Bld) 0.5 % Normal 0.2-2.0 [facility] Comment on above: Performed By: #### C MP, TSH #### [facility] [address] [address] [address] Cipriano Simon EO # 0.2 103/ul Normal 0.0-0.7 [facility] Comment on above: Performed By: #### C MP, TSH #### [facility] [address] [place] [address] Dr. Cipriano Simon Eosinophils/100 WBC (Bld) 2.9 % Normal 0.9-7.0 [facility] Comment on above: Performed By: #### C MP, TSH #### [facility] [address] [place] [address] Dr. Cipriano Simon Erythrocyte distribution width (RBC) [Ratio] 13.0 % Normal 11.0-15.0 [facility] Comment on above: Performed By: #### C MP, TSH #### [facility] [address] [place] [address] Dr. Cipriano Simon Hematocrit (Bld) [Volume fraction] 44.9 % Normal 42.0-54.0 [facility] Comment on above: Performed By: #### C MP, TSH #### [facility] [address] [place] [address] Dr. Cipriano Simon Hemoglobin (Bld) [Mass/Vol] 15.7 g/dL Normal 14.0-18.0 [facility] Comment on above: Performed By: #### C MP, TSH #### [facility] [address] [place] [address] Dr. Cipriano Simon IG # 0.03 10e3/ul Normal 0.00-0.03 [facility] Comment on above: Performed By: #### C MP, TSH #### [facility] [address] [place] [address] Dr. Cipriano Simon IG % 0.5 % Normal 0.0-0.5 [facility] Comment on above: Performed By: #### C MP, TSH #### [facility] [address] [place] [address] Dr. Cipriano Simon LYMPH # 2.6 103/ul Normal 1.2-3.8 [facility] Comment on above: Performed By: #### C MP, TSH #### [facility] [address] [place] [address] Dr. Cipriano Simon Lymphocytes/100 WBC (Bld) 44.6 % Normal 20.5-60.0 [facility] Comment on above: Performed By: #### C MP, TSH #### [facility] [address] [place] [address] Dr. Cipriano Simon MANUAL DIFF REQ NO Normal [facility] Comment on above: Performed By: #### C MP, TSH #### [facility] [address] [place] [address] Dr. Cipriano Simon MCH (RBC) [Entitic mass] 29.7 pg Normal 25.9-34.0 [facility] Comment on above: Performed By: #### C MP, TSH #### [facility] [address] [place] [address] Dr. Cipriano Simon MCHC (RBC) [Mass/Vol] 35.0 g/dL Normal 29.9-35.2 [facility] Comment on above: Performed By: #### C MP, TSH #### [facility] [address] [place] [address] Dr. Cipriano Simon MCV (RBC) [Entitic vol] 84.9 fL Normal 80.0-94.0 [facility] Comment on above: Performed By: #### C MP, TSH #### [facility] [address] [place] [address] Dr. Cipriano Simon MONO # 0.4 103/ul Normal 0.3-0.8 [facility] Comment on above: Performed By: #### C MP, TSH #### [facility] [address] [place] [address] Dr. Cipriano Simon Monocytes/100 WBC (Bld) 7.0 % Normal 1.7-12.0 [facility] Comment on above: Performed By: #### C MP, TSH #### [facility] [address] [place] [address] Dr. Cipriano Simon NEUT # 2.6 103/ul Normal 1.4-6.5 [facility] Comment on above: Performed By: #### C MP, TSH #### [facility] [address] [place] [address] Dr. Cipriano Simon Neutrophils/100 WBC (Bld) 44.5 % Normal 43.0-75.0 [facility] Comment on above: Performed By: #### C MP, TSH #### [facility] [address] [place] [address] Dr. Cipriano Simon Platelet mean volume (Bld) [Entitic vol] 9.3 fL Critically low 9.5-13.5 [facility] Comment on above: Performed By: #### C MP, TSH #### [facility] [address] [place] [address] Dr. Cipriano Simon PLT 215 103/ul Normal 150-450 [facility] Comment on above: Performed By: #### C MP, TSH #### [facility] [address] [place] [address] Dr. Cipriano Simon RBC 5.29 106/ul Normal 4.70-6.10 [facility] Comment on above: Performed By: #### C MP, TSH #### [facility] [address] [place] [address] Dr. Cipriano Simon WBC 5.9 103/ul Normal 4.0-11.0 [facility] Comment on above: Performed By: #### C MP, TSH #### [facility] [address] [place] [address] Dr. Cipriano Simon GLYCOHEMOGLOBIN A1Con 2021 ADA RECOMMENDATION SEE BELOW Normal [facility] Comment on above: Result Comment: ADA RECOMMENDED LIMIT 4.0 - 6.0 ADA THERAPEUTIC TARGET < 7.0 ACTION SUGGESTED > 7.0 Performed By: #### A 1C #### [facility] [address] [place] [address] Dr. Cipriano Simon Glucose [Mass/Vol] 169 mg/dL Normal [facility] Comment on above: Performed By: #### A 1C #### [facility] [address] [place] [address] Dr. Cipriano Simon HbA1c (Bld) [Mass fraction] 7.5 % Critically high 4.5-6.2 [facility] Comment on above: Performed By: #### A 1C #### [facility] [address] [place] [address] Dr. Cipriano Simon LIPID PROFILEon 12-21-2021 CHOL-HDL RATIO NORM SEE BELOW Normal [facility] Comment on above: Result Comment: 3.3 - 4.4 LOW RISK 4.4 - 7.1 AVERAGE RISK 7.1 - 11.0 MODERATE RISK >11.0 HIGH RISK Performed By: #### C MP, TSH #### [facility] [address] [address] [address] Cipriano Simon Cholesterol [Mass/Vol] 185 mg/dL Normal <=200 [facility] Comment on above: Performed By: #### C MP, TSH #### [facility] [address] [address] [address] Cipriano Simon Cholesterol in HDL [Mass/Vol] 39 mg/dL Critically low 40-60 [facility] Comment on above: Performed By: #### C MP, TSH #### [facility] [address] [address] [address] Cipriano Simon Cholesterol in LDL [Mass/Vol] 99.2 mg/dL Normal [facility] Comment on above: Performed By: #### C MP, TSH #### [facility] [address] [address] [address] Cipriano Simon Cholesterol.total/Ch olesterol in HDL [Mass ratio] 4.7 {ratio} Normal [facility] Comment on above: Performed By: #### C MP, TSH #### [facility] [address] [address] [address] Cipriano Simon HDL NORMAL > or = 60 mg/dl - LO W CARDIOVASCULAR RISK <40 mg/dl - HIGH CARDIOVASCULAR RISK Normal [facility] Comment on above: Performed By: #### C MP, TSH #### [facility] [address] [address] [address] Cipriano Simon LDL CALC NORMAL SEE BELOW Normal [facility] Comment on above: Result Comment: <100 mg/dl OPTIMAL 100 - 129 mg/dl NEAR OR ABOVE OPTIMAL 130 - 159 mg/dl BORDERLINE HIGH 160 - 189 mg/dl HIGH >190 mg/dl VERY HIGH Performed By: #### C MP, TSH #### [facility] [address] [place] [address] Dr. Cipriano Simon Triglyceride [Mass/Vol] 234 mg/dL Critically high <=150 [facility] Comment on above: Performed By: #### C MP, TSH #### [facility] [address] [place] [address] Dr. Cipriano Simon VLDL CALC 46.8 mg/dL Normal [facility] Comment on above: Performed By: #### C MP, TSH #### [facility] [address] [place] [address] Dr. Cipriano Simon MICROALBUMIN, RAND URon - mALB <1.3 Normal <=30.0 [facility] Comment on above: Performed By: #### M ALBR #### [facility] [address] [place] [address] Dr. Cipriano Simon PROF 14(COMP METB)on 022 Albumin [Mass/Vol] 3.9 g/dL Normal 3.4-5.0 [facility] Comment on above: Performed By: #### C MP, TSH #### [facility] [address] [place] [address] Dr. Cipriano Simon Albumin/Globulin [Mass ratio] 1.1 {ratio} Normal [facility] Comment on above: Performed By: #### C MP, TSH #### [facility] [address] [place] [address] Dr. Cipriano Simon ALP [Catalytic activity/Vol] 96 U/L Normal 46-116 [facility] Comment on above: Performed By: #### C MP, TSH #### [facility] [address] [place] [address] Dr. Cipriano Simon ALT [Catalytic activity/Vol] 51 U/L Normal 16-63 [facility] Comment on above: Performed By: #### C MP, TSH #### [facility] [address] [place] [address] Dr. Cipriano Simon Anion gap [Moles/Vol] 13.4 mmol/L Normal [facility] Comment on above: Performed By: #### C MP, TSH #### [facility] [address] [place] [address] Dr. Cipriano Simon AST [Catalytic activity/Vol] 15 U/L Normal 15-37 [facility] Comment on above: Performed By: #### C MP, TSH #### [facility] [address] [place] [address] Dr. Cipriano Simon Bilirubin [Mass/Vol] 0.8 mg/dL Normal 0.2-1.0 [facility] Comment on above: Performed By: #### C MP, TSH #### [facility] [address] [place] [address] Dr. Cipriano Simon Calcium [Mass/Vol] 8.8 mg/dL Normal 8.5-10.1 [facility] Comment on above: Performed By: #### C MP, TSH #### [facility] [address] [place] [address] Dr. Cipriano Simon Chloride [Moles/Vol] 105 mmol/L Normal 98-107 [facility] Comment on above: Performed By: #### C MP, TSH #### [facility] [address] [place] [address] Dr. Cipriano Simon CO2 [Moles/Vol] 25.4 mmol/L Normal 21.0-32.0 [facility] Comment on above: Performed By: #### C MP, TSH #### [facility] [address] [place] [address] Dr. Cipriano Simon Creatinine [Mass/Vol] 0.91 mg/dL Normal 0.70-1.30 [facility] Comment on above: Performed By: #### C MP, TSH #### [facility] [address] [place] [address] Dr. Cipriano Simon EGFR-AF UGANDAN >60 Normal >=60 [facility] Comment on above: Performed By: #### C MP, TSH #### [facility] [address] [place] [address] Dr. Cipriano Simon EGFR-NON AF UGANDAN >60 Normal >=60 [facility] Comment on above: Performed By: #### C MP, TSH #### [facility] [address] [place] [address] Dr. Cipriano Simon Globulin (S) [Mass/Vol] 3.6 g/dL Normal [facility] Comment on above: Performed By: #### C MP, TSH #### [facility] [address] [place] [address] Dr. Cipriano Simon Glucose [Mass/Vol] 198 mg/dL Critically high 74-106 T [facility] Comment on above: Performed By: #### C MP, TSH #### [facility] [address] [place] [address] Dr. Cipriano Simon Potassium [Moles/Vol] 3.8 mmol/L Normal 3.5-5.1 [facility] Comment on above: Performed By: #### C MP, TSH #### [facility] [address] [place] [address] Dr. Cipriano Simon Protein [Mass/Vol] 7.5 g/dL Normal 6.4-8.2 [facility] Comment on above: Performed By: #### C MP, TSH #### [facility] [address] [place] [address] Dr. Cipriano Simon Sodium [Moles/Vol] 140 mmol/L Normal 136-145 [facility] Comment on above: Performed By: #### C MP, TSH #### [facility] [address] [place] [address] Dr. Cipriano Simon Urea nitrogen [Mass/Vol] 13.0 mg/dL Normal 7.0-18.0 [facility] Comment on above: Performed By: #### C MP, TSH #### [facility] [address] [place] [address] Dr. Cipriano Simon Urea nitrogen/Creatinine [Mass ratio] 14.3 mg/mg Normal [facility] Comment on above: Performed By: #### C MP, TSH #### [facility] [address] [place] [address] Dr. Cipriano Simon VITAMIN B12on 12-21-2021 Cobalamin (Vitamin B12) [Mass/Vol] 647.0 pg/mL Normal 193.0-986.0 [facility] Comment on above: Performed By: #### C MP, TSH #### [facility] [address] [place] [address] Dr. Cipriano Simon Ambulatory Visit Summaryon 0 11-09-2021 Ambulatory Visit Summary RIC BERRY :1960 Visit Date:11/09/2021 Ambulatory Visit Instructions Your Diagnosis Kidney stone Tests Performed Urnls Dip Stick Auto w/o Microscopy POC 50949 XR Abdomen 1 View -- Results Pending [...] w/kub Where: [facility] [address], [place] [address]- Medications What How Much When Instructions Unchanged [...] Urnls Dip Stick Auto w/o Microscopy POC 74253 (11/09/2021) Bilirubin Urine Dipstick - Negative Blood Urine Dipstick - Negative Glucose Urine Dipstick - 3+ 1000 mg/dl Ketones Urine Dipstick - Trace - 5 mg/dl Leukocytes Urine Dipstick - Negative Nitrite Urine Dipstick - Negative Protein Urine Dipstick - Negative Specific [place] Urine Dipstick - 1.020 Urine Appearance Urine [...] usuall (more content not included)... Normal [facility] Patient Educationon 11-10-19 Patient Education Urology [...] these instructions at home: Medicines ? Take qydp-yvb-hrveequ and prescription medicines only as told by [...] 11/14/2008 Document Revised: 10/15/2019 Document Reviewed: 10/15/2019 [employer] Patient Education ? [address] [facility] Urology Office/Clinic Noteon 11-09-2021 Urology Office/Clinic [...] Urnls Dip Stick Auto w/o Microscopy POC 06254 Urnls Dip Stick Auto w/o Microscopy POC 67151 XR Abdomen 1 View XR Abdomen 1 View Follow-up With When Contact Information Elan Petreson MD, Lino Goodson, URO In 6 months 05/12/2022 [facility] [address] [place] [address]- Additional Instructions: w/kub Patient Education Kidney Stones, [id number]-Slxh Grace Elizabeth personally scribed for Dr. Ansari [...] Hip replac (more content not included)... Normal [facility] Comment on above: Result Comment: Elec tronically Signed By: Lino Ansari Jr., MD\.br\Date and Time Signed: 11/09/21 09:52 EDT\.br\Electronically Co-Signed By: Grace Marin MA\.br\Date and Time Co-Signed: 11/09/21 09:47 EDT GLYCOHEMOGLOBIN A1Con 2021 ADA RECOMMENDATION ADA THERAPEUTIC TARG ET 6.0 - 7.0 ACTION SUGGESTED > 7.0 Normal [facility] Comment on above: Performed By: #### C MP, TSH #### [facility] [address] [address] [address] Cipriano Simon Glucose [Mass/Vol] 148 mg/dL Normal [facility] Comment on above: Performed By: #### C MP, TSH #### [facility] [id number] Cipriano Simon HbA1c (Bld) [Mass fraction] 6.8 % Critically high <=6.0 [facility] Comment on above: Performed By: #### C MP, TSH #### [facility] [address] [address] [address] Cipriano Simon Formson 04-08-2021 Forms [id number] 0CD:127 Normal [facility] Coding Summary.on 04-07-2021 Coding Summary. [id number] Gh 0bWw+PGhlYWQ+XH7LEHQqK 70clVBbwN7UZ2iNRZ0MAZR WBACOTZ6ACG9kwAH9DDifQ 2VybiAv BseisDSaBH42JTj5OJM7wX spTZbmyN8phXWlW6c2LxUd RK85oB74QDdiDKRuMkP0Gi ZpbjsgbWFy R5wkJlQoxJBiQns+PHRhYm xlIHdpZHRoPScxMDAlJyBz yBbfXS6tVs8bFOPsUZOstY xhcHNlOiBj g8ybNOJiQSusJV7vlQloI1 EsuBD0LCOjr1h0Bf44jUG+ KGSzIIQ5eJzmKQxvu113Jg Bdc7oaTXZ8 bAFsSVtbPJY6B30sm8A8KI HiBKGjPRD4qUQ0jP8afXus oqcsC6WzsNTpDiP7GLX7sP DqcH3xaSfj ndgmgA0vIcu+V79CUW2XZG AGSN7GKpw2R6AgXygxvZJ+ JR84HAQhTL26gGEhmMPvj6 ruxZf7OwSl VIVzYAV1jSneCJjff9KuAW TpT77rjEFvr8D9YKGjzCgj kSXpYuHatUR7gV0aTOgcuh obh7mmcjnm Gxroz2ohpb96vF83Y97rTK jsBPOrVWH7XSJnVLHhsAlc gx3exR5dRn8+FBdrc0qfl0 cjpZy9QtTr YMUmeyCtxNcuXZL5o9YaCi 75Q0ZykRgpu8DmUqt4lx29 tWNuw1N3fLF7BCfzGLWkmA 7pUExsHhZ7 GPKbVwLnwH42uXUqUUzcZt 8wcMwtxRufEW2cKKSykkrr UGPvrF8cVVMjlUWfuTthNH 4wNTBpbjtm z341DpUfICQ2BVXltJSfB6 UnfE3mBzLtSQUmAGFwL6Sk fMShVDzhG415BOvsMuQ5HL QizvJrK5Am ACMmfBoxUjA2u3Z7Iy9Ns7 UhexxlNCU6CTbgBTIqNpN9 ChAqAaW7J4OyZsp1VUKdoV gyZI6dT1Nb FSJkgciyfqhhkSN9KIBdGY PdyP11zTUwVRpmUs3jy3Y2 o756XGUqQRVfgO68Lt8zsP ogMTBwdCBU eU0hafxth4phljywTcWfNX SlAKv8AKl9AVJxoWakFmGp GVL6IrS8MAF1pTCwiD5asD zwdncqhR7l Oyc+A09xdQ4vXED4SBR2ur naHFGkrsDoJZ91IZ14L5Nj PjwvdGFibGU+PGRpdiBzdH aaZX0vLwIl e7kjo3GtRUpkM8NvSGOyQT nfGhl4OCFjMQC4zGK7xI8q DRTbRSyxb1T6aIB9A5Cfnl Sprx0qa4yw KNDiQOwjA66leTGpk5U3XD XmcZX5AMDluGfkUbHwaY19 Oyc+HKDmdQpkj4CwGxgjv6 qfx5qibZb4 JjFhPKYlypGylSymKMU0b9 HjFw88O56eHRidEJLnGJTg JYYhZQYiqPpmro7doM5cGx 8+PGNvbCB3 sOM6yW8zYRUnDfX8FCynL9 54YkTxiQGpWipaj2vkt0sg wQf8YhRzARCpioIkzRfqYF C0k5UaHe48 O02nSMkgJHRoMWRjRDWmFX YibHxgsh5wqG7zEl1+PC9j v1ecrh78jS60uOL+PHRkIH Z9cBsfXIna VPGmqW5gOQgkFvR3BGIlXi YboH72lZVoXPbpVv6msRsa tGhqHC2lJEMhgcszz555Up Gmk5ofQHWq pNXrGLajGEP5A21dw6Z1QQ RmRJChSGP8qBE4iY4kiXws bjogbGVmdDsgdmVydGljYW xgTWlmH962 IHRvcDsnPlBhdGllbnQgTm LdCPg8J3HfQxw0NTYgbFkz YF2ylXIlGGonNs8fbDzrcB axRR1jZEEt zwvwu222CiUva7rcGWZypI OyYFerGPA0E48oe4U8RKFo HHMuXOY8iXA9pV8xwQznsg ogbGVmdDsg psTufCrkTXqyVGvdD091RQ RvcDsnPkJpcnRoIERhdGU6 MN30UN65cPEyd0V0cUY7U3 BhZGRpbmct sgbabXP3JKKbRMZyhT90Xn 0xjCegYj3sJFSlIPA8UIMu rPBnP9DfsH4fJuMuAQWhVV PcL4NwkYCi ZAcmZ133MVqqLuA6TAMdmq XeM0HkTTVxrIrmWcO2j9L8 Zj4AK6A7RL79VR42sDHxy3 Q2nTK9Q9Sj WLTsgosahtatcGL0OENxKE TuvB92Pd3fcFqlTt3oGGVz JKG8IKMjbFZwF7BhaJ2sCi AjMDAwMDAw A3MjvZKfKBrrO097XHjfOj E2EVBotsSaB4NdZDMmlVny SqM3k4F3Gx0RHMd1FN75NF 22iKDom7S2 gYM1Q9NdKOPilffkkioihP A7QOSiPMSssC56Fm5nhOxs Ap7cBNMaRJQ4QLCakWMjC0 QtuW9gAoPv QIGsSTKdQ6YcrKYfSUsmZ7 73YNugDgU5BEIdwjDoV9Rp YBQxgHtjGeT3g6M0Cb1VKN BrHF51BEH8 cPV1EH59LH37V0ZmUxikmF FibGU+PHRhYmxlIHdpZHRo PGxsMOOaDpMcsYkmZU5jHn 9yZGVyLWNv sDclePHnLjDtr6oeHKQtBT dmZZ8btBziS8PzgEP2TTEx o7z6Cq56J73aI5FkxID+PG IdgOM1pBA0 bQ0xRqGsFfH3IEeyE930Bs LcxAIwJsutr7psb4wwwWz3 QzG8VDSsdlFqvIzqLVN8p5 AtTd31B50q IHdpZHRoPSIxNSUiIHZhbG vguj3jhR6wGb0+PGNvbCB3 bTB0eF1oKmEkNkU3FUbbA5 49InRvcCIv Pabyk3icf2zsnDr7UrAqAT NordArtQdaHTY9v2VcBs96 C2ZiqKqxj0DhGqo1qr13jI Vfv6J1bWC8 C8PxPWZxymyuyOOnrPigBY 3jALAbnszbOZKzsK5fHSQc U6r0VxOsTzP7WIzkP2Tuhj M9PSQptVDn HBydBZL9L82cf1O4RBCyRW IcBOD8gPN0vG7kbXxhvrkp bGVmdDsgdmVydGljYWwtYW utL405VTLa jMakUMKsfA5oEVDsxFZtdH doOS1lRCAcpubbHz9YKX0t DBtGKLwRXzv6G9LbUpj5DP NimHptTC2c gDAjYRpxVp7pxQbaxQsiHB 4hRRJsjwjcEBEqxI7cTNWj dDPgxZifDK1cUIFymbehc6 91BrLzNEW2 OTOwySXqV7YiwY7iYoFkPO KjMMRpW0RkoWYhYGhpO308 NYwkBiP8IJHwbnJxW0WvFB FsaWduOiB0 g1Z4Ax5nCh8wXw0yJWPeYB 85EQ54pBGop6F4jIA9P5Yv LMUjoicedqzgpIO6NBFbNA OntV98aDMw GUjfHg1gt2J0p672RDWtHL YzgP18Pu1drDbuAOIqhTDP nJ6njoanm8rxulduGvJmZV TlIKh3FXm5 XQSyvOjjKkBpWZN0SqU9QJ H4hQXpnO6kdMiraalqxH8r Oyc+PZiaFJYjydL8K1RwKb g4FPIijPau WD5sbEFtWOndQi0qhPgogB mrHS5sCBKfnjvlAZWhdI3g XRUpdSLvwBlyOF8gONXxpr tyt783HpGx YRJ1BLWiwJJwK1VnxP2sEv EiBJLpYFSaS8LjfVByOWoa D924PIqmAgL2MSZklcLjX5 FsLWFsaWdu TnZ9j3R0Hp0RRUvfAY27YX 77yXFwc0A9jZA5Q8WgDRXq etefkjvgmCC2DAZlNHFtqA 47cGFkZGlu Ij6zj1U1j682BUZzKKSziZ 88Oi1axIfjDWDolJHSoW9w jjuxe2ssvpshWuXcSKRvEX b6AKs3PAIx gBlzLrPpMTM9NnD0NDC4nJ JpjU4ptRcyopuhqB4qXow+ O1X0oXU2jREbqEwufPT+PC 41io01N6Sd HtxdCap6YCVlSBT1kIG4qG 9oRNQkUMbjx3D1aXY7D7Qx hvTozd3wn9spDRIzBVmpT9 2uuJKlj3U4 FYZieJF5WPTqrEsfXjNhpR 93Oyc+WUQgcQgxz2PzMhqt r7wyx0pwqVs2MhBjEVHcau FsaWduPSJ0 z5NbIj49D85nUAytLCUsDA KbARZhQFPbzPajrh5geZ7v Ii8+TIZucSN6pOE9sB1jHi KuZoE5ECvc N110WdEopZIsKrbsj2nob4 fgiFa5WyKlHDUexwOniFqx EQF5p4RwRq57E1FivMwvh3 HkSco1vr64 bEIru3U7vNF9Q8HxRGYoba ztyHQssAivPJ1bVLFnnivc JCAacV5vTECxW4s2NoKcIe X7WVejK0Uz hoB3PNBhfAMtCBPdoSVShZ 2sydpvs0jqvcrcUlOqGVSt QFe5ORt7WSEhdVpkOjUxTJ D7ShD0SWO8 bXIlzE7gcDgxtjgqkZ6fRk c+XNj3z0iiqJMfVN0ktZT8 JD17AZ28pEBlg7Z2lLC6E8 BhZGRpbmct khsmfJM4PHUgYVMhsV62Qx 5dkQesUq6gIGWkZKS0OVFc uGOtB5NccO0mYgWvQUNuDZ AhF6KaaMCz PRexB202ZJnvCpZ3EGCwpa NfG2FaZWRtqLwwYbH7l2P5 Ns0TNF95AQ58MB05pZEyf2 O0fJT5U2De JYMllhqrkftsvYN9TFLoZZ TyeW81Ur2boRwrUu8tPYWs JUP6BIUsyOBgL1VsuA3pFo AjMDAwMDAw N5OfnYBsHZpbO046GFacMh M8FHZskhAxG8ZnXKHanFsi UtL0m6R4Pr6XGu02RC96UD 90yVPpp3Z9 sRZ8O9DwCLUpyjojjhgrwI B6REAeWNDevD70Ne9sbPgl Il1qBKWvRZO2FKHnzTMyR9 SnxB4hAtIy YXZnVUYtB2XknNRwNUliH8 11PZubCbU6CVWtgnVoN7Pb GHVxrDzgYaO9z4S8Pc9LHL mnpcc9W1Ex PjwvdHI+XX51VZRpGA79sS GucJMul2mhxHh6UsVePAPo JCP7nEivVRkhf2HpPCAcU7 2kdONuv8B3 IGNv (more content not included)... [facility] Consent for Procedure/Surger yon 04-06-2021 Consent for Procedure/Surgery [id number]#1. 00CD:127 [facility] IntraOperative Documentson 1 IntraOperative Documents [id number]#1. 00CD:127 [facility] Pre-Certification Formon Pre-Certification Form [id number]#1.0 0CD:127 [facility] Coding Summary.on 04-02-2021 Coding Summary. CD:[id number] Gh 0bWw+PGhlYWQ+VE6IOPKoY 08xcHCcdS9RZ4zLPR4LUEH ILFZUHO0BHP3lvKZ9DRvfV 2VybiAv TdmmhGKjCY26PCw6HPE3dB geURnsvR0jsDLvB1k4PxXv XQ36dV38FWtePAQoCgY2Pn ZpbjsgbWFy T8vwCgAhiLQcApi+PHRhYm xlIHdpZHRoPScxMDAlJyBz sUmhID9yAx0pLOYaRFPluB xhcHNlOiBj v7roCMWyKOanRX7ygRofN0 CjsZF9WXSyv9e8Fi37qRI+ IWIzTHG8fIugIQmyf855Ud Bnz5ahCHP1 zACuUThtQYP8W58mc8L1RH TzFFIsNPJ3mZA7gJ1dpNch lkywD8ZaoGNrCzE1WZE7rB GhoL7dtSuz zzydiM2mPcl+B43RBP1NOA ZNCX1YBle8J4UvLkvcvVJ+ ZV63ONUcZJ34lPIzvWMru3 gazRl4ZhQl HLWcKIN2dJjkVZknu3IoEY KpF12ovKVqm5H5XSKvfUqd uMDjAlKucFS5iU9bQInkee nrg3tznbiw Wfywe1jekx82dN98Q15tAG lzXLDpYGT5SAHhMNPolXki co8lfZ5kMe3+AZdze4jfr3 xrsJq5RjUh HKEzmfKchNhdKCO8i5HlXo 24M7StlHblf2WeSlg4pl73 cIWqp4E6dVT6FBwyRMZmeO 6mAAwyCfG1 GGXeYcJysC40mJDxCEofPm 0ncQdsaSfdCI6dRKAcvqus DXKotH6jLRAfdDTavUkbSP 4wNTBpbjtm w708QyHlZAV4JVRovPFiV6 RryR7vKrPjRAJiQITlO2Mi kSWrYBjnP981MCreYgU2XP BcrdJzN5Th AVIqzWhwKlZ9a1N9Uz0Lo5 EgyqaqORD0FAmjAUPqHjXj JpQnWcD5V1VvIqw6BUBmpI waRA5vB6Ws ITRjfnppsnqbdVQ4SIPlQO AroI15qYTtIYgsTp1sk0J7 m493WGXkTLTycR25Bd4tbK ogMTBwdCBU aE4pfugdj2wjltnqIjFhTO BlRSr8GHf3XTAnyUlnLfJi IDS1ItO4XET1kXMjtW4heY nnzbdbqF9u Oyc+Q19ooN9bMBA2AOI8ye fdZOFkztJiUT34JP32S9Ef PjwvdGFibGU+PGRpdiBzdH xmWC5yLgCj e9gfe5DoUXfnK2UtKSGoRE bkKrs1RFNsBWA8dYJ9sT9h NXEpEYexp8T0xXT8L2Fyvy Tkhr4gq3ov DFCkNHoaU60gwSRis2O4XV CiqOS5DVBshYkqIeIanE92 Oyc+XEHwnPaks5VoOvkpe2 ofb0uwnVo9 FbRoYKTtuhZfrOhoOOS3n1 CbKe56G92vPHmjXCKoDHVx PIYhEUEteYdyka6dmD4zBv 8+PGNvbCB3 gRQ5xC6tQJTjFkQ9DExzN1 44XhMlbDZlTstln4lkw6ho zYh7NhOsMKIphaCryDlfBH G8q0LvOf03 V48vMJtuSJCaIIUuTVVcDS WdlGqkbv8ndR1xPr8+PC9j b9qtmj74kG06rEE+PHRkIH S5yCdgBFso DXFriN8fQGhaVvS0MFHkZq UekV59wLLkNRctFo4xgDla cGgwTJ1cPZLlmpdgk256Wm Otm1zoGHCe mLYwRPnqSIC0R06mu9V3YB ZcGGSuBUK8zAD9iV1juZwf bjogbGVmdDsgdmVydGljYW nlSNocS726 IHRvcDsnPlBhdGllbnQgTm EzJZq1E9LpVyd6TEZqhUbo QD0maXKcHGyvXh3lnEgghX efAO1qUUAm jrgud803MjUfm2czWNLigT NmDTnvGXT1D34sx3W2ONZg MKHlGVH4vGJ6iL4prWkktm ogbGVmdDsg ivNzqRvoXTnfEQwbG077IV RvcDsnPkJpcnRoIERhdGU6 DR67YH32cJNwt8M0vNI2S5 BhZGRpbmct delzgCS5GVGkSFRcbM28Zr 6grPokEp8qUHSlNVM8ZYUx jSHcL8ClkF3cYoLwGIXpFP OtM5KmaRKm IAwjE866WIquYkC1FFAikj WbX9FqKBHymAvwRqF6i7Y1 Vu0QE0K1TN84DH82tTMzg1 N1xDP6A3Jt UQNqahwmqgunhZM0JVRyBK WqtU89Dw3djAyyKb5rXKIa ZGR0MILipFJwR8VpnG8eSh AjMDAwMDAw V9LhrHZeSRetY975YEfuBa F2WLGryvZeR3FnLMOltRis PnK9i3D9Hz3XXPo0IR78JX 09tDPst5S7 eTZ4W7PrPPQwaolnqmksuO V9REErLITjwH09Bo2qnXzd Ua9sMHCoGOD7HEJhxZJbY5 VffO7xGgMf RMKnUUHoS5FfqPOfTXttB3 57CKvrEhS9OSLenpEzZ2Sc LDWzmChpMbR7b1I1Bt7VNY OxCH88MOR5 sCC3XA99DA38W8KvHyxasI FibGU+PHRhYmxlIHdpZHRo JCcjGGCcDuXvrNlbWK3dVl 9yZGVyLWNv gUidxGGrRyVls8urQVCqSE oiFM1daRpqD7TckXS1UVUv h5t2Ng31Y67bE8SktJL+PG YvdDU5vUG5 rY7iDqWsSyR6HWrqG203Qq WzxIFeXvqvr0nge3rwaLh6 FbH4PUXusyYmcQgcFEP9e7 QrJp08U59g IHdpZHRoPSIxNSUiIHZhbG qfpa6yxB3qFd3+PGNvbCB3 jVT5nF4yMuCaFbO0TCvyX9 49InRvcCIv Keovo6oky1dieCu8FxMrSC OeesYtjGpuJUA1r1YeGz49 U2PabAgrk9SvUsv1ct23dE Ppo9P6sCS8 B6YqLQRfgdzdkOGqoFluAV 4kLBJgtkvlBLHhdH0kHJFi Z1c6SfYiSvM2WWmsN8Ggrm P0OTHbkZYd BKxrHOK7B09bf4F6EHPyBZ KsQDG0wHB6vC9ewAnlphpa bGVmdDsgdmVydGljYWwtYW zpK913UJVi iNzxLFKroX7fRJEfvPKlvZ fvJF3aGARmhicrCb1YNX6q WKjYMAuXMfj3B1WtBgi9RN UeaNgbNW0x xHIsEVbmAo4kwBjjaBvbWJ 2tIKKuklxaFBJfxX6kDDQn hBLtwFybWL9xGXMpkcplt9 75OpRqHAL3 OUGojXIxA0MndJ0dRwQpYQ CrJFCaG4GxlEKjMRlvO612 KXmhXrN5EOFcllWxQ7TgLA FsaWduOiB0 h9J3Fq0wUo4oXf2gSBKwOD 13IV55gIYsh8J3hPJ1U2Cm HYOaamankirnbET8AGNrRC CreB66mDQy PJwzIo5ns1K8e337GBKjOR DaaZ99Xm3eoCcwZWXmyYZP zS2zowayo5uijmfySxPdMY WzHWa7UWd4 ODXnlKfxRaTdXWR3DcA9CQ Y9tRCvwC6qeRhypqpgmH3r Oyc+HGmgYPLegyU1Y0NdVw w9CASwrLmq PI0lxJQmLYggMp5raTgjmU ruET3lFGMaamfrHADqbG9v TBIxmRNlaLacKL0yRIJemg uyk575QnMl DSQ4ZCRxsGKaG2FtkH9cUx YgFIRsEJLpC6XgcWMqFOsw I609NMxeCyH0WRXtxrKlU1 FsLWFsaWdu UhJ0d7M1Jq7CLTdiTI03OR 99bJEzo4P8oOV6S2PnAYMz xosohxknaVZ3SVCwRCTsqX 47cGFkZGlu Lu6mm9B1i968YASbLCKnxF 53Vz5ddQchMHDzaTLOcL3i dsgej4lgnwnvCyWqLBLpJX h0JJq5MBWn cYiaNwGcBTF5DbY8ZJZ7cZ SmwW4poNutkqhnkO3nEsu+ L1W6tOX2dRNqvRdbgDY+PC 66nd16Q3Vo BqcxEdr6CYAmBEK3hMF6oN 3wCAAaRXbrp9D5sIR4N4Gb puJyjc5pa7lfCHLhIEsoM5 6dyCKfl6B5 THFugPX9GKZirLprEpAwcD 93Oyc+ROWzzKxku4SmVwhy v2lpm7hrbGf4OeXoWEZpjh FsaWduPSJ0 l6OqIk59C22lDVkvSDVrQU JjAHWwHWTrmXzvhj0usF7k Ii8+AJNsaNO8wVK6wH9hNu IeNpK1JNuz Q275MiUciPOuDkrrk4zxx4 sstHi6IxRbKXDcnjEsaQft EXK2r9LsLx03T9RnbZmps1 AbXap3lx83 jTPcd2N0cEH9S9LgFBKbdj ellIMyuQkwBV9nOKAqjivh RCKznD9aNGXcI3r1PjZiJa Z4QOezA0Ll bkO2QWGswAYwRQDxwBDAwC 5rabscc7kcwngpQxTjEWHg NVp7XJk4AMPuySpzEiVkEE J6MeT5ZYG9 fLVgjI4gnRakdbsubM2kRt c+ZSg7b0xwgLFuHF8cpNE4 BG86GR01nPWyi0X6vPE2A9 BhZGRpbmct jracmZI9OTTyNPGvcB35Ib 5atXwkTk2uFLYtJYX0EGTk eMCfK1BifL0lEyZyTKThYG YdH3RqwZSb FRizC128BMqhRyM3LGJstu UlU8ArFGScdOekIpA3z5B6 Bf7DPO16MW28WZ97tIUls3 W7dER3O7Lc ZWRjoivhjvtzuWK5WESoTG FxyE43Qy1ncMibZf4lQVNr HAW1WXQcjXLqY8VmfD6iBj AjMDAwMDAw K4NsrQBhUQojQ457ZWizEu T5FTXxezYrH6PmSYMfdKim MuL5i1H3Rc5JAr09ID40FP 18fPDkj6D4 iQZ6P1EwDPAuhngpgmgncF B7BUUdWNEtbK61Hw9ttGvs Jf1pIAIgSAD7JNSceCElX4 HwmN5lTwKx BSGgSKIoZ8LwcHFyKMimK2 48LAroPtE9LSSibpGlE5Qt VVHasAhpXfL8q8I6Ll4IWS lzdpp0Q1Pt PjwvdHI+RV85HSRzNJ36yK EgeQGfd4iqwHf1JiXrVOVb JKL4qGvvCMqsg7DnOXGfT5 1pnPUkq8X1 IGNv (more content not included)... Normal [facility] Consent for Treatmenton 10-2 Consent for Treatment [id number] 0CD:127 Normal [facility] IntraOperative Documentson 1 IntraOperative Documents [id number] 0CD:127 [facility] Main OR Intraoperative Recor don 04-01-2021 Main OR Intraoperative Record IntraOp Document Type FTURO Summary Primary Physician: Lino Ansari Jr., MD Finalized Date/Time: 04/01/21 14:49:37 Pt. Name: RIC BERRY/Sex: 1960 Male Med Rec #: [id number] Physician: Lino Ansari Jr., MD Financial #: [id number] Pt. Type: O Room/Bed: / Admit/Disch: 04/01/21 [...] Mathias RN, Rissa Bullock [facility], [place]а Palacios Role Performed Surgeon - Primary Temporary Receptionist - Primary Scrub - Primary Time In [...] By: Rissa Mathias RN 04/01/21 14:49 Normal [facility] Main OR Intraoperative Record IntraOp Document Type FT Summary Primary Physician: Lino Ansari Jr., MD Finalized Date/Time: 04/01/21 10:59:15 Pt. Name: RIC BERRY/Sex: 1960 Male Med Rec #: [id number] Physician: Lino Ansari Jr., MD Financial #: [id number] Pt. Type: A Room/Bed: Admit/Disch: 03/25/21 11:46:55 [...] Anesthesiologist Surgeon - Primary Scrub - Primary Real Estate Closing Coordinator Time In 03/25/21 14:43:00 03/25/21 14:43:00 03/25/21 [...] Nadia Dixon RN, Alba Ibarra Role Performed Temporary Receptionist - Primary Linux Admin Engineer Dice Maker Time In 03/25/21 14:43:00 03/25/21 14:43:00 03/25/21 [...] Text: Im (more content not included)... Normal [facility] Main OR Preoperative Recordo n 04-01-2021 Main OR Preoperative Record Holding Area Document Type FTURO Summary Primary Physician: Lino Ansari Jr., MD Finalized Date/Time: 04/01/21 14:40:21 Pt. Name: RIC BERRY./Sex: 1960 Male Med Rec #: [id number] Physician: Lino Ansari Jr., MD Financial #: [id number] Pt. Type: O Room/Bed: / Admit/Disch: 04/01/21 [...] 14:24 Rissa Mathias RN 04/01/21 14:40 Normal [facility] Operative Reporton Operative Report Patient: MARTÍNEZ [...] well and was subsequently discharged home. Normal [facility] Comment on above: Result Comment: Elec tronically Signed By: Lino Ansari Jr., MD\.br\Date and Time Signed: 04/01/21 14:48 EDT Calculus Analysison 03-31-20 Calcium oxalate dihydrate Infrared spectroscopy (Stone) [Mass fraction] 20 % Invalid Interpretation Code [facility] Comment on above: Performed By: #### 1 [id number] ####[facility] [address] [place] [address] Calcium oxalate monohydrate (Stone) [Mass fraction] 80 % Invalid Interpretation Code [facility] Comment on above: Performed By: #### 1 [id number] ####[facility] [address] [place] [address] Color (Stone) Brown Invalid Interpretation Code [facility] Comment on above: Performed By: #### 1 [id number] ####[facility] [address] [place] [address] Composition Comment Invalid Interpretation Code [facility] Comment on above: Result Comment: Perc entage (Represents the % composition) Performed By: #### 1 [id number] ####[facility] [address] [place] [address] Disclaimer: Comment Invalid Interpretation Code [facility] Comment on above: Result Comment: This test was developed and its performance characteristics determined by [facility]. It has not been cleared or approved by the Food and Drug Administration. Performed at: [facility] Stone Analysis [address] [place] [address] [place], [place] [id number] MD Maria Elena Trotter Performed By: #### 1 [id number] ####[facility] [address] [place] [address] Laboratory comment Gordo (Report) Comment Invalid Interpretation Code [facility] Comment on above: Result Comment: Omer garay questions regarding Calculi Analysis contact [facility] at: [phone]. Performed By: #### 1 [id number] ####[facility] [address] [place] [address] Please Note: Comment Invalid Interpretation Code [facility] Comment on above: Result Comment: Calc kat report will follow via computer, mail or respiratory therapy director delivery. Performed By: #### 1 [id number] ####[facility] [address] [place] [address] Size (Stone) [Entitic vol] 2x3 Invalid Interpretation Code [facility] Comment on above: Result Comment: Mult iple pieces received. Dimensions of the largest piece reported. Performed By: #### 1 [id number] ####[facility] [address] [place] [address] Specimen source subject Nom Comment Invalid Interpretation Code [facility] Comment on above: Result Comment: Not provided Performed By: #### 1 [id number] ####[facility] [address] [place] [address] Stone Photo Comment Invalid Interpretation Code [facility] Comment on above: Result Comment: Phot ograph will follow under a separate cover Performed By: #### 1 [id number] ####[facility] [address] [place] [address] Weight (Stone) 14 mg Invalid Interpretation Code [facility] Comment on above: Performed By: #### 1 [id number] ####[facility] [address] [place] [address] Formson 03-31-2021 Forms [id number] 0CD:127 Normal [facility] H&P Updateon 03-31-2021 H&P Update [id number]#[id number] CD:127 Normal [facility] Coding Summary.on 03-30-2021 Coding Summary. CD:[id number] Gh 0bWw+PGhlYWQ+XS3BCPHrC 64kvRKkmH1RB0yCQS5KHOA JTJWXSO4NGC7xgIF1WGyjS 2VybiAv PvrplIMuBA72FOo2SXH6jN rdIMlgiZ6oiYHaH6k8LjNv AG31lW54UWunXXYdCgK3Cu ZpbjsgbWFy W7oxJvAwnFHmBhr+PHRhYm xlIHdpZHRoPScxMDAlJyBz eYdiZY1nPy1lTHYyPNKdwL xhcHNlOiBj e3luWRAlPVjbGW8yfDwfQ3 SvkQC5KRPoo5n0Ho53iAT+ RYVpFLT7mCaaLSnsq864Io Rni6hhGXF9 iCGcCLhnLFI9D23sd2O5IC RjQCMsYWY9mPQ9tP7yqZcr bpluA8MwqQKqBdD0CAW9lT NjrR6kmSws nlqixF8tMsc+G77GUI6NRV CJBI7XObn0O0VbPjpgdOD+ ZA54GMFnAO21yGVnzBNyz3 mjtPt8TwFy SLAzXRR4yBkbRUflj1PmVL WgX77vkBXyx2G4SRLivMug jXVsXjNkdWG9sV3lQMbjql rjy7djuuxu Ctzcp7yaqz92lB36A38eSQ mxTNSyCQV0DMTgHNHhyYlx ea7lmD9aBb4+MIuer7vlq8 kkrOl1ItEw IBGojcYpkBcvPWP0x8PyLe 90W1VsaNlti7AyYfi7fv57 sWZjc5C0nZJ5ZFycOMNzwO 8jDLqqOzZ9 QKPwIaTugE13mHLtVMbpOc 1neUuskElwKX9nVRYggnlk BYHvlK5qVCRjoAKbaFhfOI 4wNTBpbjtm c773TuFoWVJ3BCZzcETfO7 CfdZ7kUzNrYQVtQUGeI4Qg bXUqDGtcS138QVgjKkE3UF NqmvOuG5Jo MXRtvAvcAmY3n2H8Pt1Um8 XbilchTGQ6VTugEOHmKbF4 BcYxOiF5U8MiEhb0MKZdiH jlWT3mD5Vf JCFtlbwgbavvoBP8SOIlDN CasD10iYLfIMljCu6gf8D5 m000SEXpAMJqcT02Ia4ypE ogMTBwdCBU bJ0uyvmqm8sxkgnpPjLaNU KxAXu9IFj7XBTscFabUwGu DGX1CuQ9LQT3nEEqbF4lvS aikmodnA9b Oyc+S73cpN4hEZE8HON7ng grOMNexbQkRJ79QA69K5Lc PjwvdGFibGU+PGRpdiBzdH urMO9vRmZx h3eiw7JiEVaiU3GlQOYoZQ dwQyh1IIHiZEE3qZD3rM5f RKRqAZyrl9Q1zUO9N5Ahfy Ppvp3ed8rl LVKdDVxjQ78oqRXdn6W8QE YygCI5SUJzsSrwPhEadK09 Oyc+JVQsgPmsx2VdNbxei3 ioa4psxGf7 AmGgXVHpwoJwlVnlWOE6m8 MeEe83U42nNSfeBPTkOPMc KZNoBVGhtGmbvy7heV0eJz 8+PGNvbCB3 yWT6pW5iFYZsUcB9GKqnG6 17LhUokKVgHzbhj2wko0et jOt7DrUsNEKokzTdjFsqKQ H0t9BfQz80 A38lYNvsQZVnXWSnSSQqGF DkcDapgh6azM5cJl7+PC9j d4jypw17sP83eNG+PHRkIH T4oRqfTXry WSSmiC4cHEmbVcF0NPYiRf CrwT75uKNmYCqhAl6gtAbl jYwlWH6iCZBgpomwk523Bu Kkw3hpVZHi mOKoDPjnNKI1Z56dx9C9AZ IrCFFyLSZ8lUD6rG2veIrg bjogbGVmdDsgdmVydGljYW zaLVhnJ565 IHRvcDsnPlBhdGllbnQgTm EcCYf4D7KwQfh9RXBimUhr ST4woAGxIXwdBv6nmVgaxW nsWT6qSUSo avbkf391UkIta8ntGHWqlJ YfXPkwIEF4L51ui5O6KZYq JLVzPQG6bGW2yX0eyUhzja ogbGVmdDsg jbRxuKlcFLxtLVjeW854IY RvcDsnPkJpcnRoIERhdGU6 DF07WE50nKRfp5X3wXK4M1 BhZGRpbmct guxxlSG0VVOuWVZhsQ74Cv 0aiWapXd0nKPDlOOI0CHEt wFRcS1PvfF0lArPyODTeGK GcP9NuoDGf JYrkF975CWdqQlP6KLEzwb EsW9SvXIQqnFrvYyH8c9Y5 Wx1OL3U1AK49ML84wSOag2 G2pVH4H8Es EKLnrljvvbeifZF1IWZdUJ KwmV88Oo2hjCzuAg3gDBKw FTW2MBIloEGrC5UspJ8mNs AjMDAwMDAw E0VjbEKgYZjyY771XSmmOc I1CRSqxkPuS6AyZZZsyVmy WgD2i2N8Ri1WBXh7VV27JL 85hGEwh0S0 fFG7Q7BsOCLndhdskrtkzH J6ZEDjQWNwyU80Dr6uwBiu Mt6jXEDxYKK6VMTnuYNlI9 TbfH8gSsSu AVDlRTQdG1SmiAOmUGnbQ3 04ATkqQrS8EVEqknUeP5Ee CDWzeZxvBlU7a8M6Rd9KWG LaWG92PVN2 oAC5IY62RW79J4NoDvivrE FibGU+PHRhYmxlIHdpZHRo VJuqYSAxIgQitViqBN0pNw 9yZGVyLWNv wZzsjJFhRtOcz6gtKHKqTN ofYM3daEahZ4BziWB3HGJg a3m7Kk15M48yO7CdpWJ+PG GtlVK6oTE0 mP1sAzNfLrI9ARgeM634Nm FacSYsHtutx6jmr5meqIa8 MdY2ZQIfzhVymTcjOCO2k5 IeGl19R44i IHdpZHRoPSIxNSUiIHZhbG qoiy4daD4bCu0+PGNvbCB3 lLV6qR7wAsNrDwT9OVaxA0 49InRvcCIv Dwqer5kdr0jmwTj2TqIrPX RpwhQrpVgpZAZ2b3VlKo49 C6ZxiEssb1AaGpe2jn70nX Inw2S5gMU7 Z4FoGJQovwuiyXKpyUprYL 1mSVDtktzrYFVwcO4fJAKv K7j2GaImGkR2EOfvQ7Dwxc C0BULtoQIi YOjsHJX0V02ga7D5TDYpWB LvTXT8iOF0wZ9reZvykjpo bGVmdDsgdmVydGljYWwtYW fgQ355GXCi qAxsCZAkrJ3vPJBbsZRgpK ycZS5fBFQjfbksBa1OIF9t XHlGKGwHPmz8V7XcMnx7GY JukAhgWP9h sSZpEJkcTe3uiDwqqUhdKE 2pBXQbwtqbVVTttB1rLMVj gNAcbJtnOD9mXTBjspioe1 20OyGbHRR1 CCSccMAuR6JgdD4rOiPsNM IrMGTqB3UvkTXlPFgdY735 MEsfXfE4OHWectQlX7YtSU FsaWduOiB0 s5K1Nx4vDh1cRh0qXWKrBT 39CS51hLQsq9Q6rTZ2U0Fe VQXcvpsalezeeNV0IHWiCW SguM61rGUe ECagDa1xb7H8d397TOZmJI EnyA48Jz7doUhtVYSlcYMU fN1ocnxhh0kmqayvDtFvVP YyBVy7AHg4 IOGddGtpBbQgYMW0PnI0OJ M3xOBazE5xdYhrhmdslP4r Oyc+ZQoeYISfyoF4A7XeJo v6JJTpdZmz ME5ivFNfOLdnNg2wyNintX rjDW9yMHNdxyajDDLxkE8a CEVwkMAkiXlnDA0gOJIzzz jcd616XlMp SUG6FREimSQmK0LeyC5oEc AlEVBuVECyH1OkrMQvDAii I690AZvqXlE7MDSvzyUiY3 FsLWFsaWdu XrX8p2R3Wf5MFQvxDR78WN 11yNPvi6N7lHO8K3AsMXAc feytzgiygMK3PZQhZEZhoK 47cGFkZGlu Cr0yp6E4d610LUDlCLZshZ 64Xt8ccQtdCLYzbSBKyT3n odnkd9gjwbgfAhWoKMRbJK w5BYb6DLSg mBmlByGpFJL8VdK0ZAS1mZ QbbU7saTenbkxwrV8cJie+ AJ2dxYulzN9zzO0ZLB6rBN RheSBTdXJn EDJ8YD35VD20S0RyNswacE FibGU+PHRhYmxlIHdpZHRo KTorOZDnMvBdxMqiUI2jNg 9yZGVyLWNv eDsyfWDfWcLzc8lxSSApAA vnRG3gkUhxQ7JufIY3LSFl r8k8Sp55J34yV8MyhRK+PG MfaEH4jFA4 cM8zIvFwDvC8QHquY052Ug BqzERkQxihz8gwy5otyAs2 XaFeFVOgpsNhvQxeUWU6s1 FhVg03S17s IHdpZHRoPSIyMCUiIHZhbG eiai1drT4gMw6+PGNvbCB3 cFS2wV8uUtPmPhJ1AZlzG6 49InRvcCIv MybsA29nY5MluGC+PHRyPj y6MVQtwAkuEJ3rmLIfLNgy Rx6sTDE9AlLtHfAxDXitH9 BhZGRpbmct spiekJO2OCGuOFYhzV09Si 9xnRwbUj7bLCKtFDJ5BXTr tDStW5CsyS2nTcVyWODoGD UeU2XjmKUv CYonI105RRudTeL2KHRtxs WtE1AtYBXaeExuWiL0w1L2 Pm9JnIlzmHNbWE0zEmSnXG i4W7RbCax7 IGNshXpxUT7bvHAaOTjfDd 9arFvpkUchVW2eKCWxchzy b170JdQfk5zdZDCehSCwUS zyWDH4I12i c9W3PBGmIOPeVIZ1dZM2oR 1hbGlnbjogbGVmdDsgdmVy fXxtLZzkXCehL710YFIrmQ snPkZJTjo8 N1KhVwy0GDRwlOclDQ9zxC XxEMjkEg8yiNggxFebOS3q JCNgxsbqp758NjSxb4vsXY EwcHQgVGlt HYL7U71iy1Y5XBBtVZJxWN V9vOR5nL7buLzjujqdpNJt dDsgdmVydGljYWwtYWxpZ2 46IHRvcDsn Dl4VEjs0N9RkKwq6HLLlkM sjEV5jwCAdLDjoHv4mmOch rSpiQT4yOGOxobfey919Ni Akb0apZVAr aCWsEZgfUWQ1E40hg7O1QA ZxNIDpZVN9fZB8sD8svAjf bjogbGVmdDsgdmVydGljYW axRMqrC592 IHRvcDsnPlBheWVyOjwvdG Q+UK25zm80Q1KlUmwgMqg8 QSSjOJV8tLW3yH2bDPHyWS iii7P0bWO7 J2Jv (more content not included)... Normal [facility] Postoperative Documentson Postoperative Documents [id number]#1. 00CD:127 [facility] Pre-Certification Formon Pre-Certification Form [id number]#1.0 0CD:127 [facility] Progress Note-Physicianon Progress Note-Physician Patient: RIC BERRY Age: 60 years Sex: Male : 1960 Associated Diagnoses: None Author: Deniz Chan MD Postoperative Information Post Operative Note: Post Anesthesia Care Unit. Anesthetic utilized: General. Health Status Allergies: Allergic Reactions (All) Severity Not Documented Baclofen- Unknown. Celecoxib- Unknown. Iodine- Unknown. Problem list: All Problems Anxiety / SNOMED CT 27741491 / Confirmed Physical Examination Intake and Output adequate hydration Measurements from flowsheet : Measurements 03/25/2021 12:34 EDT Height/Length Measured 177.0 cm Weight Measured 85.5 kg 03/25/2021 12:25 EDT Height/Length Measured 177.0 cm (Modified) Weight Dosing 85.5 kg [place] Body Weight Calculated 72.276 kg (Modified) BSA Measured 2.05 m2 Body Mass Index Measured 27.29 kg/m2 Weight Measured 85.5 kg 03/24/2021 8:35 EDT Height/Length Dosing 178.0 cm Weight Dosing 84.0 kg 03/24/2021 8:35 EDT Height/Length Measured Date\Time Correction Height/Length Dosing 177.8 cm [place] Body Weight Calculated Date\Time Correction Pain assessment: [...] discharged from anesthesia care. Condition stable. Normal [facility] Comment on above: Result Comment: Elec tronically Signed By: Deniz Chan MD\.br\Date and Time Signed: 03/29/21 16:40 EDT Consent for Anesthesiaon Consent for Anesthesia [id number]#1.0 0CD:127 [facility] Consent for Procedure/Surger yon 03-26-2021 Consent for Procedure/Surgery [id number]#1.0 0CD:127 [facility] Discharge Instructionson Discharge Instructions [id number]#1.0 0CD:127 Normal [facility] IntraOperative Documentson IntraOperative Documents [id number]#1.0 0CD:127 Normal [facility] IntraOperative Documents [id number]#1.0 0CD:127 Normal [facility] Preoperative Documentson Preoperative Documents [id number]#1.0 0CD:127 Normal [facility] Capillary Glucose POCon 03-12 Glucose [Mass/Vol] 134 mg/dL High 55-99 [facility] Comment on above: Performed By: #### 2 [id number] ####[facility] [address] [place] [address] Consent for Treatmenton 03-12 Consent for Treatment [id number]#1.0 0CD:127 Normal [facility] ECG 12-Leadon 03-25-2021 ECG 12-Lead [id number]#1.0 0CD:127 Normal [facility] Immunization Recordson 03-25 Immunization Records [id number]#1.0 0CD:127 Normal [facility] Inpatient Patient Summaryon 03-25-2021 Inpatient Patient Summary [address] [address] [facility] Clinical Discharge Instructions PERSON INFORMATION Name: RIC BERRY PHYSICIANS Admitting Physician: Lino Ansari Jr., MD Attending Physician: Lino Ansari Jr., MD PCP: CHRISTOPHER WU DO Discharge Diagnosis: Hydronephrosis with renal and ureteral calculus obstruction Comment: PATIENT EDUCATION INFORMATION Instructions: Wcgr-Fpfq-dq Utereroscopy,Lithotrip sy, Stone Extraction, Stent Placement (Custom); Cystoscopy; Post Op Patient Instructions - FT (Custom) (Custom) Medication Leaflets: Follow up: With: Address: When: Lino Ansari [facility], [address], [place] [address] Business (1) Within 1 week Comments: My office will schedule cystoscopy with stent extraction. MEDICATION LIST New Medications [id number], [address] [place], [place] [id number], [phone] acetaminophen-oxycodon e (Percocet 5 mg-325 mg oral [...] Tablets By Mouth every day. Comment: Normal [facility] Main OR PACU I Recordon 03-12 Main OR PACU I Record PACU Phase I Document Type FT Summary Primary Physician: Lino Ansari Jr., MD Finalized Date/Time: 03/25/21 18:09:07 Pt. Name: RIC BERRY/Sex: 1960 Male Med Rec #: [id number] Physician: Lino Ansari Jr., MD Financial #: [id number] Pt. Type: A Room/Bed: [facility] Admit/Disch: 03/25/21 11:46:55 - Institution: Case Times [...] By: Anabela Yeh RN 03/25/21 18:09 Normal [facility] Main OR PACU II Recordon Main OR PACU II Record PACU Phase II Document Type FT Summary Primary Physician: Lino Ansari Jr., MD Finalized Date/Time: 03/25/21 18:08:49 Pt. Name: RIC BERRY./Sex: 1960 Male Med Rec #: [id number] Physician: Lino Ansari Jr., MD Financial #: [id number] Pt. Type: A Room/Bed: Admit/Disch: 03/25/21 11:46:55 [...] By: Beatriz Blankenship RN 03/25/21 18:08 Normal [facility] Main OR Preoperative Recordo n 03-25-2021 Main OR Preoperative Record PreOp Document Type FT Summary Primary Physician: Lino Ansari Jr., MD Finalized Date/Time: 03/25/21 15:55:27 Pt. Name: RIC BERRY /Sex: 1960 Male Med Rec #: [id number] Physician: Lino Ansari Jr., MD Financial #: [id number] Pt. Type: A Room/Bed: Admit/Disch: 03/25/21 11:46:55 [...] Nadia Corbett RN, I 03/25/21 15:55 Normal [facility] Monitor Recordon 03-25-2021 Monitor Record [id number]#1. 00CD:127 Normal [facility] Operative Reporton Operative Report Patient: MARTÍNEZ BERRY Age: 60 years Sex: Male : 1960 Associated Diagnoses: None Author: Lino Ansari Jr., MD Postoperative Information Procedure: Hydronephrosis with left ureteral calculus Date/ Time: 03/25/2021 15:42:00 Preoperative Diagnosis: Hydronephrosis with renal and ureteral calculus obstruction ([id number] N13.2, Discharge, Medical). Postoperative Diagnosis: Hydronephrosis with renal and ureteral calculus obstruction ([id number] N13.2, Discharge, Medical). Performed by: Elan Peterson [...] the lab for chemical analysis. A 6 [place] double-J ureteral stent was then placed over [...] FACS. Specimens Removed: Ureteral calculi. Prosthesis: 6 [place] double-J ureteral stent. . Estimated Blood Loss: 0 ml. Complications: None. Anesthesia type: General. [facility] Comment on above: Result Comment: Elec tronically Signed By: Lino Ansari Jr., MD\.br\Date and Time Signed: 03/25/21 15:50 EDT Outpatient Surgery Discharge Instructionon 03-25-2021 Outpatient Surgery Discharge Instruction [place] [id number] Patient Discharge Instructions PERSON INFORMATION Name: RIC [...] Follow up: With: Address: When: Lino Ansari [facility], [address], [place] [address] Business (1) Within 1 week Comments: My [...] to serve you. Thank you for choosing [facility] HERE ARE THE MEDICATION CHANGES THAT OCCURRED DURING YOUR HOSPITAL STAY New Medications [id number], [address] [place], [place] [id number], [phone] acetaminophen-oxycodon e (Percocet 5 mg-325 mg oral [...] day. PATIENT EDUCATION INFORMATION Instructions: [facility] [place], [place] Post-operative Instructions for Stent Placement There [...] other reasons. If it is to remain group home, however, changes of the stent are required [...] the ba (more content not included)... Normal [facility] Patient Education - Texton 1 Patient [...] including vitamins, herbs, eye drops, creams, and gjzi-xom-fetykiu medicines. ? Any problems you or family [...] tells you to take them. ? Taking thqc-zfx-dcydilo medicines, vitamins, herbs, and supplements. ? Follow [...] these instructions at home: Medicines ? Take vrcv-nez-hajbdny and prescription medicines only as told by [...] yellow. ? (more content not included)... Normal [facility] Progress Note-Physicianon Progress Note-Physician Patient: RIC [...] selected or recorded. Procedure history: Hip replacement ([id number]). Social History Social & Psychosocial Habits Tobacco [...] review: No qualifying data available . Plan [place] [employer] (ASA) physical status classification: [...] and lungs, allergic reactions, and .. Normal [facility] Comment on above: Result Comment: Elec [...] V. Transcribed by: LOUIS Technologist: HARRIET Normal [facility] XR Urography Retrograde Left on 03-25-2021 XR Urography Retrograde Left Exam Date/Time: 03/25/2021 15:43 EDT Reason for Exam: Kidney stone Report IMPRESSION: LEFT URETERAL STENT PLACEMENT. CLINICAL HISTORY: Kidney stone COMPARISON: 03/25/2021 12:28 PM. FINDINGS: 3 digital spot images of the abdomen were obtained in surgery. Initial membership director image shows a tiny left renal calculus [...] Dose: Ka,r in mGy = 465.9 Normal [facility] Consent for Treatmenton 03-12 Consent for Treatment [id number]:127 Normal [facility] Outside Recordson 03-24-2021 Outside Records [id number]:127 Normal [facility] Physician Orderon 03-24-2021 Physician Order [id number]:127 Normal [facility] RAD - MISCon 03-24-2021 RAD - MISC [id number]:127 Normal [facility] XR Chest 2 Viewson XR Chest [...] MD Transcribed by: LOUIS Technologist: MAJO Normal [facility] Anesthesia Recordon 12-31-19 Anesthesia Record Patient: MARTÍNEZ BERRY MRN: [id number] Age: 60 years Sex: Male : 1960 Associated Diagnoses: None Author: Frankie PARDO, Sergo Jewell Procedure Time Out [place] Protocol: patient identity verified, site verified, side [...] Diagnosis: m16.12 Postoperative Diagnosis: m16.12 . Normal [facility] OR Nursingon 12-30-2020 OR Nursing Normal [facility] PACU I Nursingon 12-30-2020 PACU I Nursing CO NA PACU I Nursing Record Summary Primary Physician: Quentin Ramirez MD Finalized Date/Time: 12/30/20 12:49:47 Pt. Name: RIC BERRY/Sex: 1960 Male Med Rec #: [id number] Physician: Financial #: [id number] Pt. Type: A Room/Bed: / Admit/Disch: 12/30/20 07:04:00 - Institution: ID NA OR Main PACU I Case Times [...] Soto RN Document Signatures Signed By: Mendoza Soot RN 12/30/20 12:49 Normal [facility] PreOp Nursingon 12-30-2020 PreOp Nursing CO NA PreOp Nursing Record Summary Primary Physician: Quentin Ramirez MD Finalized Date/Time: 12/30/20 09:42:21 Pt. Name: RIC BERRY/Sex: 1960 Male Med Rec #: [id number] Physician: Financial #: [id number] Pt. Type: A Room/Bed: / Admit/Disch: 12/30/20 [...] By: Fernando Zimmerman RN 12/30/20 09:42 Normal [facility] XR Pelvis 1-2 Viewson 2020 XR Pelvis 1 or 2 Views EXAM: XR Pelvis 1-2 Views HISTORY: Postoperative COMPARISON: None. TECHNIQUE: AP radiograph of the pelvis. FINDINGS: There is a left total hip arthroplasty with surrounding postprocedural change. Hardware is intact. Alignment is within expected limits. Partially evaluated right hip is unremarkable. IMPRESSION: Left total hip arthroplasty, as above. [place] thanks you for the opportunity to care for your patient. Workstation ID: [id number] - [id number] FINAL REPORT Dictated By: Latonya Hampton MD 12/30/2020 13:05 Assigned Physician: Latonya Hampton MD Reviewed and Electronically Signed By: Latonya Hampton MD 12/30/2020 13:06 Transcribed by: CRISTINA 12/30/2020 13:05 Technologist: SARAH Guardado [facility] Comment on above: Order Comment: Posto perative, s/p JENIFFER Basic metabolic 2000 panelon 12-16-2020 Calcium [Mass/Vol] 9.6 mg/dL Normal 8.5-10.6 [facility] Chloride [Moles/Vol] 103 mmol/L Normal 98-107 [facility] CO2 [Moles/Vol] 25 mmol/L Normal 21-32 [facility] Creatinine [Mass/Vol] 0.81 mg/dL Normal 0.70-1.30 [facility] Glucose [Mass/Vol] 133 mg/dL High 70-99 [facility] Potassium [Moles/Vol] 4.2 mmol/L Normal 3.5-5.1 [facility] Sodium [Moles/Vol] 139 mmol/L Normal 136-145 [facility] Urea nitrogen (BldV) [Mass/Vol] 15 mg/dL Normal 7.0-18.0 [facility] Urea nitrogen/Creatinine [Mass ratio] 19 mg/mg Normal [facility] CBC W Auto Differential pane l (Bld)on 12-16-2020 Basophils (Bld) [#/Vol] 0.0 thou/mcL Normal 0.0-0.2 [facility] Basophils/100 WBC (Bld) 0.4 % Normal 0-3 [facility] Differential cell count method Nom (Bld) AUTOMATED DIFFERENTIAL Normal [facility] Eosinophils (Bld) [#/Vol] 0.1 thou/mcL Normal 0.0-0.4 [facility] Eosinophils/100 WBC (Bld) 2.4 % Normal 0-7 [facility] Lymphocytes (Bld) [#/Vol] 2.4 thou/mcL Normal 0.7-4.5 [facility] Lymphocytes/100 WBC (Bld) 49.7 % High 14-46 [facility] Monocytes (Bld) [#/Vol] 0.4 thou/mcL Normal 0.1-1.0 [facility] Monocytes/100 WBC (Bld) 8.1 % Normal 4-13 [facility] Neutrophils (Bld) [#/Vol] 1.9 thou/mcL Normal 1.5-7.8 [facility] Neutrophils/100 WBC (Bld) 39.4 % Low 40-74 [facility] Erythrocyte distribution width (RBC) [Entitic vol] 13.4 % Normal 11.7-15.0 [facility] Hematocrit (Bld) [Volume fraction] 46.0 % Normal 34.0-50.0 [facility] Hemoglobin (Bld) [Mass/Vol] 15.7 g/dL Normal 11.5-17.0 [facility] MCH (RBC) [Entitic mass] 30.5 Picograms Normal 27.0-34.0 [facility] MCHC (RBC) [Mass/Vol] 34.1 g/dL Normal 32.0-36.0 [facility] MCV (RBC) [Entitic vol] 89.3 fL Normal 80-98 [facility] Platelet mean volume (Bld) [Entitic vol] 9.5 fL Normal 7.5-11.2 [facility] Platelets (Bld) [#/Vol] 271 thou/mcL Normal 140-415 [facility] RBC (Bld) [#/Vol] 5.15 x(10)6/mcL Normal 3.80-5.60 [facility] WBC (Bld) [#/Vol] 4.9 thou/mcL Normal 4.0-10.5 [facility] Vital Signs Date Time Vital Sign Value Performing Clinician Facility 06-26-2023 15:00-0500 Body height 175.26 cm [employer] Other [facility] Other 06-26-2023 15:00-0500 Body mass index (BMI) [Ratio] 29.86 kg/m2 [facility] Other [facility] Other 06-26-2023 15:00-0500 Body weight 91.72 kg [facility] Other [facility] Other 06-26-2023 15:00-0500 Diastolic blood pressure 85 mm[Hg] [facility] [employer] [facility] [employer] Other [facility] Other 06-26-2023 15:00-0500 Respiratory rate 12 /min [facility] [employer] [facility] [employer] Other [facility] Other 06-26-2023 15:00-0500 Systolic blood pressure 124 mm[Hg] [facility] [employer] [facility] [employer] Other [facility] Other 03-14-2023 14:00-0400 Body height 175.26 cm Christopher Ball Other [facility] Other 03-14-2023 14:00-0400 Body mass index (BMI) [Ratio] 28.73 kg/m2 [facility] Other [facility] Other 03-14-2023 14:00-0400 Body weight 88.27 kg Christopher Ball Other [facility] Other 03-14-2023 14:00-0400 Diastolic blood pressure 86 mm[Hg] Christopher Ball Other [facility] Other 03-14-2023 14:00-0400 Respiratory rate 12 /min Christopher Ball Other [facility] Other 03-14-2023 14:00-0400 Systolic blood pressure 121 mm[Hg] Christopher Ball Other [facility] Other 12-21-2022 15:00-0400 Body height 175.26 cm Christopher Ball Other [facility] Other 12-21-2022 15:00-0400 Body mass index (BMI) [Ratio] 28.97 kg/m2 Christopher Ball Other [facility] Other 12-21-2022 15:00-0400 Body weight 89 kg Christopher Ball Other [facility] Other 12-21-2022 15:00-0400 Diastolic blood pressure 80 mm[Hg] Christopher Ball Other [facility] Other 12-21-2022 15:00-0400 Respiratory rate 12 /min Christopher Ball Other [facility] Other 12-21-2022 15:00-0400 Systolic blood pressure 126 mm[Hg] Christopher Ball Other [facility] Other 11-26-2022 09:00-0400 Body height 175.26 cm Kacey Taylor Other [facility] Other 11-26-2022 09:00-0400 Body mass index (BMI) [Ratio] 28.5 kg/m2 Kacey Taylor Other [facility] Other 11-26-2022 09:00-0400 Body temperature 97.1 [degF] Kacey Vazquez Other [facility] Other 11-26-2022 09:00-0400 Body weight 87.54 kg Kacey Vazquez Other [facility] Other 11-26-2022 09:00-0400 Diastolic blood pressure 74 mm[Hg] Kaceyjose f Vazquez Other [facility] Other 11-26-2022 09:00-0400 Respiratory rate 18 /min Kacey Taylor Other [facility] Other 11-26-2022 09:00-0400 SaO2% (BldA) [Mass fraction] 97 % Kacyejose f Vazquez Other [facility] Other 11-26-2022 09:00-0400 Systolic blood pressure 106 mm[Hg] Kacey Vazquez Other [facility] Other 10-10-2022 16:00-0400 Body height 175.26 cm Christopher Ball Other [facility] Other 10-10-2022 16:00-0400 Body mass index (BMI) [Ratio] 28.59 kg/m2 [facility] Other [facility] Other 10-10-2022 16:00-0400 Body weight 87.82 kg Christopher Ball Other [facility] Other 10-10-2022 16:00-0400 Diastolic blood pressure 77 mm[Hg] Christopher Ball Other [facility] Other 10-10-2022 16:00-0400 SaO2% (BldA) [Mass fraction] 96 % Christopher Ball Other [facility] Other 10-10-2022 16:00-0400 Systolic blood pressure 108 mm[Hg] Christopher Ball Other [facility] Other 08-08-2022 15:45-0500 Body height 175.26 cm Christopher Ball Other [facility] Other 08-08-2022 15:45-0500 Body mass index (BMI) [Ratio] 29.12 kg/m2 [facility] Other [facility] Other 08-08-2022 15:45-0500 Body weight 89.45 kg Christopher [facility] Other [facility] Other 08-08-2022 15:45-0500 Diastolic blood pressure 76 mm[Hg] Christopher Ball Other [facility] Other 08-08-2022 15:45-0500 Respiratory rate 12 /min [facility] Other [facility] Other 08-08-2022 15:45-0500 Systolic blood pressure 118 mm[Hg] Christopher [facility] Other [facility] Other 11-09-2021 08:53-0400 Blood Pressure Location Lino Ansari Jr. [facility] 11-09-2021 08:53-0400 Diastolic blood pressure 88 mm[Hg] Lino Ansari Jr. [facility] 11-09-2021 08:53-0400 Heart rate 81 /min Lino Ansari Jr. [facility] 11-09-2021 08:53-0400 Systolic blood pressure 113 mm[Hg] Lino Ansari Jr. [facility] Encounters Encounter Date Encounter Type Care Provider Facility Start: 08-23-2023 End: 08-24[facility] Start: 07-21-2023 End: 07-21-2023 ambulatory Christopher Wu Other [facility] Other Start: 07-21-2023 Telephone encounter Christopher ZAMUDIO [facility] Start: 06-26-2023 End: 06-26-2023 ambulatory Christopher Wu Other [facility] Other Start: 06-26-2023 Office outpatient vi sit 15 minutes Christopher Wu [facility] Start: 06-14-2023 End: 06-14-2023 ambulatory Christopher Wu Other [facility] Other Start: 06-14-2023 Telephone encounter [facility]UD[facility] Start: 05-25-2023 End: 05-25-2023 ambulatory Christopher Wu Other [facility] Other Start: 05-25-2023 Telephone encounter Christopher Ball [facility] Start: 05-24-2023 End: 05-24-2023 ambulatory Christopher Ball Other [facility] Other Start: 05-24-2023 Office outpatient vi sit 15 minutes Christopher Ball [facility] Start: 04-28-2023 End: 04-28-2023 ambulatory Christopher Ball Other [facility] Other Start: 04-28-2023 Telephone encounter Christopher Ball [facility] Start: 03-28-2023 End: 03-28-2023 ambulatory Christopher Ball Other [facility] Other Start: 03-28-2023 Telephone encounter Christopher Ball [facility] Start: 03-22-2023 End: 03-22-2023 ambulatory Christopher Ball Other [facility] Other Start: 03-22-2023 Telephone encounter Christopher Ball [facility] Start: 03-14-2023 End: 03-14-2023 ambulatory Christopher Ball Other [facility] Other Start: 03-14-2023 Office outpatient vi sit 25 minutes Christopher Ball [facility] Start: 02-28-2023 End: 02-28-2023 ambulatory Christopher Ball Other [facility] Other Start: 02-28-2023 Telephone encounter Christopher Ball [facility] Start: 12-22-2022 End: 12-22-2022 ambulatory Christopher Ball Other [facility] Other Start: 12-22-2022 Telephone encounter Christopher Ball [facility] Start: 12-21-2022 End: 12-21-2022 ambulatory Christopher Ball Other [facility] Other Start: 12-21-2022 Office outpatient vi sit 25 minutes Christopher Ball [facility] Start: 12-05-2022 End: 12-05-2022 ambulatory Christopher Wu Other [facility] Other Start: 12-05-2022 Office outpatient vi sit 15 minutes Christopher Ball [facility] Start: 11-26-2022 End: 11-26-2022 ambulatory Kacey Moultonley Other [facility] Other Start: 11-26-2022 Office outpatient vi sit 15 minutes Kacey Vazquez [facility] Start: 10-11-2022 End: 10-11-2022 ambulatory Christopher Wu Other [facility] Other Start: 10-11-2022 Telephone encounter Christopher [facility] Start: 10-10-2022 End: 10-10-2022 ambulatory Christopher Wu Other [facility] Other Start: 10-10-2022 Office outpatient vi sit 25 minutes Christopher Ball [facility] Start: 09-06-2022 End: 09-06-2022 ambulatory Christopher Wu Other [facility] Other Start: 09-06-2022 Telephone encounter hCristopher Wu [facility] Start: 08-26-2022 End: 08-26-2022 ambulatory Christopher Wu Other [facility] Other Start: 08-26-2022 Telephone encounter Christopher Ball [facility] Start: 2022 End: 2022 ambulatory Christopher Bryce Other [facility] Other Start: 2022 Telephone encounter Christopher Ball [facility] Start: 08-19-2022 End: 08-20-[address] CHRISTOPHER WU Facility:[facility] Start: 08-19-2022 Telephone encounter Christopher [facility] Start: 08-18-2022 End: 08-18-2022 ambulatory Christopher Wu Other [facility] Other Start: 08-18-2022 Telephone encounter Christopher ZAMUDIO [facility] Start: 08-17-2022 End: 08-18-[address] CHRISTOPHER WU Facility:[facility] Start: 08-17-2022 Telephone encounter Christopher ZAMUDIO Yusuf Bryce [facility] Start: 08-08-2022 End: 08-08-2022 ambulatory Christopher Wu Other [facility] Other Start: 08-08-2022 Office outpatient vi sit 25 minutes Christopher DALY [facility] Start: 03-15-2022 End: 03-16-[address] LINO Leyva Facility:[facility] Start: 01-25-2022 End: 01-25-2022 ambulatory LEYDI PEREYRA Facility:[facility] Start: 12-22-2021 Encounter for genera l adult medical examination without abnormal findings DR CHRISTOPHER WU [facility] Start: 12-21-2021 End: 12-22-[address] CHRISTOPHER WU Facility:[facility] Start: 12-21-2021 End: 12-22-2021 Encounter for general adult medical examination without abnormal findings DR CHRISTOPHER WU Facility:[facility] Start: 12-14-2021 Adult health examination Christopher Wu Other [facility] Other Start: 11-09-2021 End: 11-10-2021 ambulatory Lino Ansari Facility:[facility] Start: 11-09-2021 End: 11-09-2021 Patient encounter procedure Lino Ansari Jr. [facility] Start: 08-31-2021 End: 09-01-[address] CHRISTOPHER WU Facility: Start: 04-01-2021 End: 04-02-2021 ambulatory Lino Ansari Facility:[facility] Start: 03-25-2021 End: 03-25-2021 ambulatory Lino Ansari Facility:[facility] Start: 03-24-2021 End: 03-25-2021 ambulatory Lino Ansari Facility:[facility] Procedures Date Procedure Procedure Detail Performing Clinician Start: 12-21-2021 PSA screening LEYDI JAIN Comment on above: Performed By: #### C , TSH #### [facility] [address] [place] [address] Dr. Cipriano Simon Start: 03-25-2021 Cystoscopy Lino [...] Ansari Jr. [facility] NEGATED: Highlighted row has not occurred!11-09-2021 influenza virus vaccine, unspecified formulation Lino Ansari Jr. [facility] Payers Date Payer Category Payer Unknown [id number] 2.16.8 [id number] 1960 Unknown [id number] 2.16.8 [id number] 1960 Unknown [id number] 2.16.8 [id number] 1960 Unknown [id number] 2.16.8 [id number] 1960 Unknown [id number] 2.16.8 [id number] 1960 Unknown [id number] 2.16.84 [id number] 1960 Unknown [id number] 2.16.84 [id number] 1960 Unknown [id number] 2.16.84 [id number] 1960 Unknown [id number] 2.16.84 [id number] 1960 Unknown [id number] 2.16.84 [id number] 1960 Unknown [id number] 2.16.84 0.1.238834.3.579.2.593 1960 Unknown [id number] 2.16.84 [id number] 1960 Unknown [id number] 2.16.8 [id number] 1959 Unknown [id number] 1957 Unknown [id number] Unknown [id number] 2.16 [id number] Social History Date Type Detail Facility Start: 11-09-2021 Never smoked tobacco (f inding) [facility] Male [facility] Medical Equipment Procedure Code Equipment Code Equipment Origin al Text Equipment Identifier Dates [id number] [facility] Start: 03-25-2021 Start: 09-06-2022 Clinical Notes 12-30-2020 [...] Microalbumin, Dilated eye exam and Foot exam [facility] Other 12-13-2023 Evaluation note* Encounter Date Diagnosis [...] improved FBS BS have increased w/ illness [facility] Other 10-17-2023 Evaluation note* Encounter Date Diagnosis Assessment Notes Treatment Notes Treatment Clinical Notes Mar, Type 2 diabetes mellitus with hyperglycemia (ICD-10 - E11.65) [facility] Other 10-11-2023 Evaluation note* Encounter Date Diagnosis Assessment Notes Treatment Notes Treatment Clinical Notes Mar, Type 2 diabetes mellitus with hyperglycemia (ICD-10 - E11.65) 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 [facility] Other 07-13-2023 Evaluation note* Encounter Date Diagnosis Assessment Notes Treatment Notes Treatment Clinical Notes Dec, Type 2 diabetes mellitus with hyperglycemia, without long-term current use of insulin (ICD-10 - E11.65) [facility] Other 07-12-2023 Evaluation note* Encounter Date Diagnosis [...] Avoid stimulants, hydrate and no medication changes [facility] Other 06-26-2023 Evaluation note* Encounter Date Diagnosis [...] of infection. Monitor for now. Push fluids [facility] Other 06-17-2023 Evaluation note* Encounter Date Diagnosis [...] to 7 days, sooner if significantly worsening. [facility] Other 05-01-2023 Evaluation note* Encounter Date Diagnosis [...] They may safely use Tylenol as needed. [facility] Other 03-13-2023 Evaluation note* Encounter Date Diagnosis Assessment Notes Treatment Notes Treatment Clinical Notes Aug, Type 2 diabetes mellitus with hyperglycemia, without long-term current use of insulin (ICD-10 - E11.65) [facility] Other 03-10-2023 Evaluation note* Encounter Date Diagnosis Assessment Notes Treatment Notes Treatment Clinical Notes Aug, Type 2 diabetes mellitus with hyperglycemia, without long-term current use of insulin (ICD-10 - E11.65) Aug, Anemia, unspecified type (ICD-10 - D64.9) [facility] Other 03-09-2023 Evaluation note* Encounter Date Diagnosis Assessment Notes Treatment Notes Treatment Clinical Notes Aug, Type 2 diabetes mellitus with hyperglycemia, without long-term current use of insulin (ICD-10 - E11.65) [facility] Other 03-08-2023 Evaluation note* Encounter Date Diagnosis Assessment Notes Treatment Notes Treatment Clinical Notes Aug, Type 2 diabetes mellitus with hyperglycemia, without long-term current use of insulin (ICD-10 - E11.65) [facility] Other 02-27-2023 Evaluation note* Encounter Date Diagnosis [...] (ICD-10 - R25.2) Reassure, check Joellen Montalvo [facility] Other 05-31-2022 Hospital Discharge instructions Patient Education 11/09/2021 09:45:52 Kidney Stones, Rzyk-zh-Nghi Kidney Stones Kidney stones are rock-like masses [...] Follow these instructions at home: Medicines Take bqgl-tua-yhnnwmr and prescription medicines only as told by [...] 11/14/2008 Document Revised: 10/15/2019 Document Reviewed: 10/15/2019 [employer] Patient Education 2019 [employer]. Follow Up Care 04/01/2021 14:51:08 With:Elan Peterson MD, Lino Goodson, URO Address: [facility] [address] , [place] [address]- When:05/12/2022 Comments:w/nancy [facility] 10-26-2021 Note [id number]:127[facility] 04-01-2021 NoteCystoscopy with Stent Removal ? [...] if you have a fever over 100 degrees.[facility] 03-24-2021 [id number]:127[facility]07-21-2021 Hospital Progress notePatient: RIC BERRY MRN: ([id number] Age: 60 years Sex: Male : 1960 Associated Diagnoses: None Author: Marco Alvarado MD Assessment Assessment Diagnosis: Osteoarthritis of left hip (SVJ81-VS M16.12, Working, Medical). Plan A medical consult [...] Radiology Report for More Detail Diagnosis Documentation [facility]07-21-2021 Anesthesiology Preoperative evaluation and management notePatient: RIC BERRY MRN: ([id number] Age: 60 years Sex: Male : 1960 [...] thou/mcL 12/16/20 10:32, Lymphocyt (more content not included)...[facility] No data available for this section [facility] noteNo InformationNort 123ContactForm Other History general Narrative - Reported* Type Description Date Medical History Anxiety Medical History diabetes mallitus Medical History left hip pain Surgical History kidney stone Hospitalization History see above [facility] Other History general Narrative - Reported* Type Description Date Medical History Anxiety Medical History diabetes mallitus Medical History left hip pain Surgical History kidney stone Surgical History Left hip replacement Hospitalization History see above [facility] Other Reason for referral (narrative)* Reason Referral for rotator cuff tear Diagnosis 1 Acute pain of left s houlder (M25.512) Diagnosis 2 Nontraumatic incompl ete tear of rotator cuff, unspecified laterality (M75.110) Referral Organization [facility] Bryce yanes Referring Provider First Name Christopher Referring Provider Last Name Bryce Referring Provider Specialty Internal Me dicine Referred Organization [facility] Referred Provider Alfredo Vazquez Referred Address [address] [place] Referred Provider Specialty Orthopedic S urgery Referral Priority Routine General Notes Mr. Berry is being re ferred for further evaluation and treatment of a rotator cuff tear. Clinical Notes MRI completed [facility] Other Summary Purpose Family History No Family History Records FoundNo Family History Records FoundNo Family History Records FoundNo Family History Records Found Advance Directives No Advanced Directives Records FoundNo Advanced Directives Records FoundNo Advanced Directives Records FoundNo Advanced Directives Records Found Procedure Findings Note Patient: RIC BERRY MRN : ([id number] Age: 60 years Sex: Male : 1960 [...] section and content) DATE CREATED AUTHOR 03/01/2021 [facility] DATE CREATED AUTHOR AUTHOR'S ORGANIZ ATION [facility]2022 [facility] DATE CREATED AUTHOR AUTHOR'S ORGANIZ ATION 08/24/2022 [facility] DATE CREATED AUTHOR AUTHOR'S ORGANIZ ATION 08/24/2023 [facility] REASON FOR VISIT (unrecogniz ed section and content) Heart FluttersNo Information No InformationNo InformationLab ResultsMedication AErefillFOLLOW UPmedicationsinus infection, 2 wksSINUS INFECTION [phone] sugar check upNo InformationBS readingsBS NOT CONTROLLEDMedicationNo [...] BE BASED ON THE PRIMARY CLINICAL RECORDS. [facility] [employer] [facility]. provides no warranty or guarantee of the accuracy or completeness of information in this document.
--- NOTE | 2023-08-28 07:43 | XR_ITS ---
The [address] [address] Patient Name: RIC SANCHEZ MRN: [id number] date: 1960 Sex: M Assigned Patient Location: ER Current Patient Location: ER Accession/Order Number: [id number] Exam Date: 08/28/2023 08:10 Report Date: 08/28/2023 08:26 At the request of: MARIO FELIX Procedure: XR abdomen 1V EXAM: XR abdomen 1V HISTORY: kub COMPARISON: CT abdomen and CT pelvis studies dated 08/26/2023 TECHNIQUE: AP supine view of the abdomen was obtained. FINDINGS: There is an approximately 4 mm opacity overlying the pelvis on the left suspect for distal left ureteral calculus when correlated with the CT study. Other calcific density overlying the lower pelvis on the left like representing phlebolith when correlated with the CT exam. No obvious opaque renal calculus. Bowel gas pattern appears grossly nonspecific. Bony structures appear grossly intact. XR/XR abdomen 1V IMPRESSION: There is a 4 mm opacity overlying the pelvis on the left likely representing distal left ureteral calculus when correlated with the CT exam. This appears to be in grossly similar position. Electronically authenticated by: ARLEEN PACHECO Date: 08/28/2023 08:26
--- NOTE | 2023-08-28 07:45 | ED_ITS ---
HPI - General Adult General Chief complaint: Abdominal Pain Stated complaint: ABDOMINAL PAIN Time Seen by Provider: 08/28/23 07:42 Source: patient Mode of arrival: walk-in Limitations: no limitations History of Present Illness HPI narrative: Patient is a 63-year-old male who is presenting to the Emergency Room today with chief complaint of ongoing left lower back, left flank, left lower quadrant pain. Patient has a lithotripsy set up for tomorrow with Dr. David. patient saw his urologist from [place] on Monday of this past week, Dr. David. patient has Percocet at home ffor pain, he did not take his Percocet this morning because he wanted to make sure that he can receive IV Toradol in the Emergency Room today which she's been taking in the Emergency Room which has helped for his kidney stone pain. Patient says that he had a 6 mm stone on the left side where he is set up for lithotripsy tomorrow, they're calling him today for an appointment time tomorrow. Patient has had nausea this morning no vomiting. Patient last took his last Percocet last evening at 10 PM. Patient's significant other is at bedside. Patient is also complaining of a diffuse headache is well, pain headache. . All systems are negative except as noted/marked. All systems reviewed and otherwise negative. . Nurses note and vital signs reviewed and patient is not hypoxic. General: The patient appears Mild distress secondary to pain, patient's significant other is at bedside. Patient is resting uncomfortably on cart. Patient is not toxic, lethargic, or listless Skin: Warm, dry, no pallor noted. There is no rash noted. No petechiae, purpura. Head: Normocephalic, atraumatic Eye: Normal conjunctiva, no drainage, EOMI. PERRL Ears, Nose, Mouth, and Throat: oral mucosa is moist. Nares patent. Mouth without vesicles. Cardiovascular: Regular Rate and Rhythm, no murmur, gallop, rub Respiratory: Patient is in no distress, no accessory muscle use, lungs are clear to auscultation, no wheezing, rales or rhonchi Back: Patient has moderate left CVA tenderness palpation, moderate left flank tenderness to palpation, no rash, otherwise the rest of his back is non-tender, no right CVA tenderness to percussion. No CT LS midline pain GI: soft, Mild to moderate left lower quadrant tenderness to palpation, mild suprapubic tenderness palpation, patient denies any pain to palpation to bilateral testicles, otherwise no tenderness to palpation, no masses appreciated. No rebound, guarding, or rigidity noted. No flank pain bilateral, No distention Musculoskeletal: Patient has full range of motion of all of the extremities, no motor, sensory, or focal neurological deficits Neurological: A&O x3, normal speech Psychiatric: Cooperative Related Data Previous Rx's Medication Instructions Recorded ondansetron 4 mg disintegrating 4 mg PO Q6H PRN nausea and 08/20/23 tablet vomiting #20 tabs oxycodone-acetaminophen 5 mg-325 1 tab PO Q6H PRN pain 5 days #20 08/20/23 mg tablet (Percocet) tabs tamsulosin 0.4 mg capsule (Flomax) 0.4 mg PO DAILY #7 caps 08/20/23 tamsulosin 0.4 mg capsule (Flomax) 0.4 mg PO DAILY PRN kidney stone 08/26/23 #14 caps Allergies Allergy/AdvReac Type Severity Reaction Status Date / Time No Known Drug Allergies Allergy Verified 08/26/23 20:32 PFSH PFSH Social History Smoking status: Former smoker Exam Constitutional Vital Signs, click to edit/add: Last Vital Signs Temp 97.7 F 08/28/23 07:29 Pulse 81 08/28/23 07:29 Resp 18 08/28/23 07:29 BP 129/71 08/28/23 07:29 Pulse Ox 97 08/28/23 07:29 O2 Del Method Room Air 08/28/23 07:29 Course Vital Signs Vital signs: Vital Signs Temperature 97.7 F 08/28/23 07:29 Pulse Rate 81 08/28/23 07:29 Respiratory Rate 18 08/28/23 07:29 Blood Pressure 129/71 08/28/23 07:29 Pulse Oximetry 97 08/28/23 07:29 Oxygen Delivery Method Room Air 08/28/23 07:29 Temperature 97.7 F 08/28/23 07:29 Pulse Rate 81 08/28/23 07:29 Respiratory Rate 18 08/28/23 07:29 Blood Pressure 129/71 08/28/23 07:29 Pulse Oximetry 97 08/28/23 07:29 Oxygen Delivery Method Room Air 08/28/23 07:29 Medical Decision Making MDM Narrative Medical decision making narrative: CT/CT abdomen pelvis wo con IMPRESSION: 1. Moderate left hydronephrosis and hydroureter. Obstructing left distal ureteral stone measuring 0.6 cm (3/125). 2. No right hydronephrosis. No right nephroureterolithiasis. 3. No bladder stones. No bladder wall thickening. 4. Hepatic steatosis. 5. Other findings as described. CT of the abdomen pelvis is listed above. Patient had a KUB today that shows a 4 mm opacity overlying the pelvis and the left likely representing distal left ureter calculus when correlated with the CT exam from 2 days ago. This appears to be in grossly similar position. 0930 Pt lithotripsy is going to be scheduled at approximately 1:30 PM tomorrow, the office will call pt for more specifics. I did speak to Dr. Hearn, patient's urologist in [place]. He is aware of creatinine at 1.56 today, we discussed his KUB reading today. He has no acute signs of infection. Patient will continue to use his Zofran, Percocet and Flomax. I will prescribe patient Toradol to use at home as well. Patient will see his urologist tomorrow. Patient's lab work, urine otherwise showed no specific abnormalities, patient is diabetic and his sugar is elevated, but no signs of acidosis. Patient feels better after IV fluids and IV medication given in the ER. Lab Data Labs: Lab Results 08/28/23 08/28/23 Range/Units 07:40 08:45 WBC 7.2 (4.0-11.0) 10^3/uL RBC 5.16 (4.70-6.10) 10^6/uL Hgb 15.0 (14.0-18.0) g/dL Hct 45.0 (42.0-54.0) % MCV 87.2 (80.0-94.0) fL MCH 29.1 (25.9-34.0) pg MCHC 33.3 (29.9-35.2) g/dL RDW 12.6 (11.0-15.0) % Plt Count 232 (150-450) 10^3/uL MPV 9.7 (9.5-13.5) fL Neut % (Auto) 62.2 (43.0-75.0) % Lymph % (Auto) 27.6 (20.5-60.0) % [place] % (Auto) 7.2 (1.7-12.0) % Eos % (Auto) 2.1 (0.9-7.0) % Baso % (Auto) 0.6 (0.2-2.0) % Neut # (Auto) 4.5 (1.4-6.5) 10^3/uL Lymph # (Auto) 2.0 (1.2-3.8) 10^3/uL [place] # (Auto) 0.5 (0.3-0.8) 10^3/uL Eos # (Auto) 0.2 (0.0-0.7) 10^3/uL Baso # (Auto) 0.0 (0.0-0.1) 10^3/uL Abs Immat Gran (auto) 0.02 (0.00-0.03) 10^3/uL Imm/Tot Granulo (auto) 0.3 (0.0-0.5) % Sodium 138 (136-145) mmol/L Potassium 4.3 (3.5-5.1) mmol/L Chloride 102 (98-107) mmol/L Carbon Dioxide 27.8 (21.0-32.0) mmol/L Anion Gap 12.5 BUN 11.0 (7.0-18.0) mg/dL Creatinine 1.56 H (0.70-1.30) mg/dL Est GFR ( Amer) 55 L (>=60) Est GFR (Non-Af Amer) 45 L (>=60) BUN/Creatinine Ratio 7.1 Glucose 194 H (74-106) mg/dL Calcium 8.5 (8.5-10.1) mg/dL Total Bilirubin 1.0 (0.2-1.0) mg/dL AST 31 (15-37) U/L ALT 41 (16-63) U/L Alkaline Phosphatase 71 (46-116) U/L Total Protein 7.5 (6.4-8.2) g/dL Albumin 3.6 (3.4-5.0) g/dL Globulin 3.9 g/dL Albumin/Globulin Ratio 0.9 Lipase 18.0 (16.0-77.0) U/L Urine Color Yellow (YELLOW) Urine Clarity Clear (CLEAR) Urine pH 5.5 (5.0-9.0) Ur Specific [place] 1.025 (1.005-1.025) Urine Protein Negative (NEG/TRACE) mg/dL Urine Glucose (UA) 500 A (NEGATIVE) mg/dL Urine Ketones Trace A (NEGATIVE) mg/dL Urine Occult Blood Negative (NEGATIVE) Urine Nitrite Negative (NEGATIVE) Urine Bilirubin Negative (NEGATIVE) Urine Urobilinogen 0.2 (0.2-1.0) EU/dL Ur Leukocyte Esterase Negative (NEGATIVE) Urine RBC 0-2 (0-2) #/HPF Urine WBC None seen (NONE SEEN) #/HPF Ur Squamous Epith Cells None seen (NONE/RARE) #/LPF Ur Transition Epith Cell Rare A (NONE SEEN) #/LPF Urine Crystals None seen (None Seen) #/HPF Urine Bacteria None seen (NONE SEEN) #/HPF Urine Casts None seen (NONE SEEN) #/LPF Urine Mucus None seen (NONE SEEN) Discharge Plan Discharge Stand Alone Forms: Portal Instructions Chief Complaint: Abdominal Pain Clinical Impression: Calculus of kidney, Renal colic on left side, Nausea & vomiting Patient Disposition: Home, Self-Care Time of Disposition Decision: 09:29 Condition: Fair Prescriptions / Home Meds: No Action tamsulosin [Flomax] 0.4 mg capsule 0.4 mg PO DAILY Qty: 7 0RF oxycodone-acetaminophen [Percocet] 5-325 mg tablet 1 tab PO Q6H PRN (Reason: pain) 5 Days Qty: 20 0RF ondansetron 4 mg tablet,disintegrating 4 mg PO Q6H PRN (Reason: nausea and vomiting) Qty: 20 0RF tamsulosin [Flomax] 0.4 mg capsule 0.4 mg PO DAILY PRN (Reason: kidney stone) Qty: 14 0RF Additional Instructions: Your lithotripsy is going to be scheduled at approximately 1:30 PM tomorrow, the office will call you for more specifics. I did speak to Dr. Hearn, patient's urologist in [place]. He is aware of creatinine at 1.56 today, we discussed his KUB reading today. He has no acute signs of infection. Patient will continue to use his Zofran, Percocet and Flomax. I will prescribe patient Toradol to use at home as well. Patient will see his urologist tomorrow. Referrals: Christopher Pearce DO [Primary Care Provider] - 1 week
[2023-08-28 07:54] LABS: Basophils Percent Auto 0.6 % (0.2-2.0); Eosinophils Absolute Auto 0.2 10^3/uL (0.0-0.7); Eosinophils Percent Auto 2.1 % (0.9-7.0); Immature Granulocytes Abs Auto 0.02 10^3/uL (0.00-0.03); Immature Granulocytes Pct Auto 0.3 % (0.0-0.5); Lymphocytes Percent Auto 27.6 % (20.5-60.0); Mean Corpuscular HGB Conc 33.3 g/dL (29.9-35.2); Mean Corpuscular Hemoglobin 29.1 pg (25.9-34.0); Mean Corpuscular Volume 87.2 fL (80.0-94.0); Mean Platelet Volume 9.7 fL (9.5-13.5); Monocytes Absolute Auto 0.5 10^3/uL (0.3-0.8); Monocytes Percent Auto 7.2 % (1.7-12.0); Neutrophils Absolute Auto 4.5 10^3/uL (1.4-6.5); Neutrophils Percent Auto 62.2 % (43.0-75.0); Platelet Count 232 10^3/uL (150-450); Red Blood Count 5.16 10^6/uL (4.70-6.10); Red Cell Distribution Width 12.6 % (11.0-15.0); White Blood Count 7.2 10^3/uL (4.0-11.0)
[2023-08-28] MEDS: 0.9 % SODIUM CHLORIDE 1,000 ML 999 ML IV (08:00)
[2023-08-28] MEDS: KETOROLAC TROMETHAMINE 30 MG/ML VIAL 15 MG IVP (08:00)
[2023-08-28] MEDS: PROCHLORPERAZINE 10 MG/2 ML VIAL IV (08:00)
[2023-08-28] MEDS: ONDANSETRON PF 4 MG/2 ML VIAL IV ×2 (08:00→09:10)
[2023-08-28] MEDS: MORPHINE SULFATE 2 MG/ML SYRINGE IV (08:03)
[2023-08-28 08:08] LABS: Alanine Aminotransferase 41 U/L (16-63); Albumin Globulin Ratio 0.9; Albumin Level 3.6 g/dL (3.4-5.0); Alkaline Phosphatase 71 U/L (46-116); Anion Gap 12.5; Aspartate Amino Transferase 31 U/L (15-37); BUN Creatinine Ratio 7.1; Calcium 8.5 mg/dL (8.5-10.1); Carbon Dioxide 27.8 mmol/L (21.0-32.0); Chloride 102 mmol/L (98-107); Estimated GFR (African America 55 (>=60); Estimated GFR (Non-African Ame 45 (>=60); Globulin 3.9 g/dL; Glucose 194 mg/dL (74-106); Potassium 4.3 mmol/L (3.5-5.1); Sodium 138 mmol/L (136-145); Total Protein 7.5 g/dL (6.4-8.2)
[2023-08-28 09:10] LABS: Bilirubin Urine NEGATIVE (NEGATIVE); Blood Urine NEGATIVE (NEGATIVE); Clarity Urine CLEAR (CLEAR); Color Urine YELLOW (YELLOW); Glucose Urine UA 500 mg/dL (NEGATIVE); Ketones Urine TRACE mg/dL (NEGATIVE); Leukocyte Esterase Urine NEGATIVE (NEGATIVE); Nitrite Urine NEGATIVE (NEGATIVE); Protein Urine NEGATIVE (NEG/TRACE); Specific Gravity Urine 1.025 (1.005-1.025); Urobilinogen Urine 0.2 EU/dL (0.2-1.0); pH Urine 5.5 (5.0-9.0)
[2023-08-28 09:17] LABS: Bacteria Urine NONE SEEN #/HPF (NONE SEEN); Mucus Urine NONE SEEN (NONE SEEN); RBC Urine 0-2 #/HPF (0-2); Squamous Epithelial Cell Urine NONE SEEN #/LPF (NONE/RARE); WBC Urine NONE SEEN #/HPF (NONE SEEN)
[2023-08-28 09:21] LABS: Cast Seen? NONE SEEN #/LPF (NONE SEEN); Crystals Seen? None Seen #/HPF (None Seen); Transitional Epi Cells Urine RARE #/LPF (NONE SEEN)
[2023-08-28] MEDS: HYDROMORPHONE HCL 0.5 MG/0.5 ML SYRINGE IV (09:52)
[2023-08-28 10:06] VITALS: BP 155/88; PULSE 84; RESP 16; O2SAT 97
== END 2023-08-28 10:11 | disposition home or self-care (01) ==
PROVIDERS: Emergency Provider Emergency Medicine; PCP Internal Medicine
DX: N20.0 Calculus of kidney (principal); R11.2 Nausea with vomiting, unspecified; Z87.891 Personal history of nicotine dependence
CPT/HCPCS: 36415; 74018; 80053; 81001; 83690; 85025; 96374; 96375; 96376; 99284; J1170

== ENCOUNTER 2023-09-02 05:50 | Inpatient (IN) | payer OTHER, SELFPAY ==
[2023-09-02] VITALS (22 sets, daily range): BP systolic 113–162; BP diastolic 63–77; PULSE 88–134; RESP 16–20; TEMP 36.5–38.1; O2SAT 95–97; BMI 29.5; BMI 29.4
--- OUTSIDE RECORDS SUMMARY | 2023-09-02 05:57 | XMS_ITS | CCD ---
Author Organization [facility] Care Team Providers Care [employer] Footballer Name Role Phone CHRISTOPHER PEARCE Primary Care Physician [phone] Lino Ansari Attending Unavailable Elan, Lino Goodson [...] Consulting Unavailable BRYCE, DR SNOWDEN Admitting Unavailable ELAN Leyva, DR LINO Goodson Attending Unavaila markel Leyva, DR LINO Goodson Admitting Unavaila ble BRYCE, DR SNOWDEN Primary Care Unavailable DU, DR CASE Acosta Consulting Unavailable ELAN Leyva, DR LINO Goodson Consulting Unavaila ble BRYCE, DR SNOWDEN Primary Care Unavailable BRYCE, DR SNOWDEN Attending Unavailable BRYCE, DR SNOWDEN Consulting Unavailable BRYCE, DR SNOWDEN Admitting Unavailable UD, DR CASE Acosta Consulting Unavailable BRYCE, DR SNOWDEN Primary Care Unavailable BRYCE, DR SNOWDEN Consulting Unavailable BRYCE, DR SNOWDEN Attending Unavailable BRYCE, DR SNOWDEN Admitting Unavailable Christopher Pearce Unavailable Kacey Vazquez Unavailable JOHNNIE CARTER Attending Unavailable JOHNNIE CARTRE Admitting Unavailable BRYCE, CHRISTOPHER Primary Care Unavailable JOHNNIE CARTER Referring Unavailable BRYCE, CHRISTOPHER Primary Care Unavailable Allergies Allergy Classification Reported Allergen(s) Allergy Type Date of Onset Reaction(s) Facility (2 sources) Baclofen; 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: [baclofen] Drug Allergy 11-12-19 17 Unknown [facility] (2 sources) celecoxib; 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: [celecoxib] Drug Allergy 03-29-20 20 Unknown [facility] (16 sources) Iodine; 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: [iodine] Drug Allergy Unknown (qualifier value) [facility] Comment on above: pt states radioactiv e iodine only, not topical (1 source) Baclofen Drug Allergy 11-13-19 17 [facility] (1 source) celecoxib Drug Allergy 03-30-20 20 [facility] (1 source) Iodine (And Iodine Containting Drugs) Drug allergy (disorder) 03-30-20 20 [facility] (14 sources) Azithromycin Drug Allergy Unknown [facility] Other (20 sources) Ciprofloxacin Drug Allergy Unknown [facility] Other (14 sources) Sulfamethoxazole / Trimethoprim Drug Allergy Unknown [facility] Other (1 source) patient allergy list reviewed by nurse or physicia Propensity to adverse reactions 01-03-20 Comment:Done [facility] Other Medications Current Medications Medication Drug Class(es) [...] oral tablet (16 sources) alpha-Adrenergic Agonist, Uncompetitive W-hhdukr-A-aspartate Receptor Antagonist, Sigma-1 Agonist Start: 11-26-2022 take [...] 01-27-2022 03-24-2021 Chronic Calculus of urinary tract (10 sources) Kidney stone; 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: [Calculus of kidney] [...] sources) Long-term current use of insulin; 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: [alf (current) use of insulin] Episodic Other aftercare (1 source) 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 No Radiologist dictation. Please follow up with ordering provider. Final result Normal [facility] CBC AUTO DIFFon 08-17-2022 BASO # 0.0 103/ul Normal 0.0-0.1 [facility] Comment on above: Performed By: #### C MP, TSH #### [facility] [address] [address] [address] Cipriano Simon Basophils/100 WBC (Bld) 0.8 % Normal 0.2-2.0 [facility] Comment on above: Performed By: #### C MP, TSH #### [facility] [address] [place] [address] Dr. Cipriano Simon EO # 0.1 103/ul Normal 0.0-0.7 [facility] Comment on above: Performed By: #### C MP, TSH #### [facility] [address] [place] [address] Dr. Cipriano Simon Eosinophils/100 WBC (Bld) 1.8 % Normal 0.9-7.0 [facility] Comment on above: Performed By: #### C MP, TSH #### [facility] [address] [place] [address] Dr. Cipriano Simon Erythrocyte distribution width (RBC) [Ratio] 12.8 % Normal 11.0-15.0 [facility] Comment on above: Performed By: #### C MP, TSH #### [facility] [address] [place] [address] Dr. Cipriano Simon Hematocrit (Bld) [Volume fraction] 46.3 % Normal 42.0-54.0 [facility] Comment on above: Performed By: #### C MP, TSH #### [facility] [address] [place] [address] Dr. Cipriano Simon Hemoglobin (Bld) [Mass/Vol] 15.8 g/dL Normal 14.0-18.0 [facility] Comment on above: Performed By: #### C MP, TSH #### [facility] [address] [place] [address] Dr. Cipriano Simon IG # 0.05 10e3/ul Critically high 0.00-0.03 [facility] Comment on above: Performed By: #### C MP, TSH #### [facility] [address] [place] [address] Dr. Cipriano Simon IG % 1.0 % Critically high 0.0-0.5 [facility] Comment on above: Performed By: #### C MP, TSH #### [facility] [address] [address] [address] Cipriano Simon LYMPH # 2.6 103/ul Normal 1.2-3.8 [facility] Comment on above: Performed By: #### C MP, TSH #### [facility] [address] [address] [address] Cipriano Simon Lymphocytes/100 WBC (Bld) 52.7 % Normal 20.5-60.0 [facility] Comment on above: Performed By: #### C MP, TSH #### [facility] [address] [address] [address] Cipriano Simon MANUAL DIFF REQ NO Normal [facility] Comment on above: Performed By: #### C MP, TSH #### [facility] [address] [place] [address] Dr. Cipriano Simon MCH (RBC) [Entitic mass] 29.0 pg Normal 25.9-34.0 [facility] Comment on above: Performed By: #### C MP, TSH #### [facility] [address] [place] [address] Dr. Cipriano Simon MCHC (RBC) [Mass/Vol] 34.1 g/dL Normal 29.9-35.2 [facility] Comment on above: Performed By: #### C MP, TSH #### [facility] [address] [place] [address] Dr. Cipriano Simon MCV (RBC) [Entitic vol] 85.0 fL Normal 80.0-94.0 [facility] Comment on above: Performed By: #### C MP, TSH #### [facility] [address] [place] [address] Dr. Cipriano Simon MONO # 0.4 103/ul Normal 0.3-0.8 [facility] Comment on above: Performed By: #### C MP, TSH #### [facility] [address] [place] [address] Dr. Cipriano Simon Monocytes/100 WBC (Bld) 7.2 % Normal 1.7-12.0 [facility] Comment on above: Performed By: #### C MP, TSH #### [facility] [address] [address] [address] Cipriano Simon NEUT # 1.8 103/ul Normal 1.4-6.5 [facility] Comment on above: Performed By: #### C MP, TSH #### [facility] [address] [address] [address] Cipriano Simon Neutrophils/100 WBC (Bld) 36.5 % Critically low 43.0-75.0 [facility] Comment on above: Performed By: #### C MP, TSH #### [facility] [address] [address] [address] Cipriano iSmon Platelet mean volume (Bld) [Entitic vol] 10.7 fL Normal 9.5-13.5 [facility] Comment on above: Performed By: #### C MP, TSH #### [facility] [address] [place] [address] Dr. Cipriano Simon PLT 214 103/ul Normal 150-450 [facility] Comment on above: Performed By: #### C MP, TSH #### [facility] [address] [place] [address] Dr. Cipriano Simon RBC 5.45 106/ul Normal 4.70-6.10 [facility] Comment on above: Performed By: #### C MP, TSH #### [facility] [address] [place] [address] Dr. Cipriano Simon WBC 5.0 103/ul Normal 4.0-11.0 [facility] Comment on above: Performed By: #### C MP, TSH #### [facility] [address] [place] [address] Dr. Cipriano Simon GLYCOHEMOGLOBIN A1Con 2022 ADA RECOMMENDATION SEE BELOW Normal [facility] Comment on above: Result Comment: ADA RECOMMENDED LIMIT 4.0 - 6.0 ADA THERAPEUTIC TARGET < 7.0 ACTION SUGGESTED > 7.0 Performed By: #### C MP, TSH #### [facility] [address] [place] [address] Dr. Cipriano Simon Glucose [Mass/Vol] 209 mg/dL Normal [facility] Comment on above: Performed By: #### C MP, TSH #### [facility] [address] [place] [address] Dr. Cipriano Simon HbA1c (Bld) [Mass fraction] 8.9 % Critically high 4.5-6.2 [facility] Comment on above: Performed By: #### C MP, TSH #### [facility] [address] [place] [address] Dr. Cipriano Simon MICROALBUMIN, RAND URon mALB 1.8 mg/L Normal <=30.0 [facility] Comment on above: Performed By: #### M ALBR #### [facility] [address] [place] [address] Dr. Cipriano Simon PROF 14(COMP METB)on 023 Albumin [Mass/Vol] 4.1 g/dL Normal 3.4-5.0 [facility] Comment on above: Performed By: #### C MP, TSH #### [facility] [address] [place] [address] Dr. Cipriano Simon Albumin/Globulin [Mass ratio] 1.2 {ratio} Normal [facility] Comment on above: Performed By: #### C MP, TSH #### [facility] [address] [place] [address] Dr. Cipriano Simon ALP [Catalytic activity/Vol] 106 U/L Normal 46-116 [facility] Comment on above: Performed By: #### C MP, TSH #### [facility] [address] [place] [address] Dr. Cipriano Simon ALT [Catalytic activity/Vol] 42 U/L Normal 16-63 [facility] Comment on above: Performed By: #### C MP, TSH #### [facility] [address] [place] [address] Dr. Cipriano Simon Anion gap [Moles/Vol] 12.7 mmol/L Normal [facility] Comment on above: Performed By: #### C MP, TSH #### [facility] [address] [place] [address] Dr. Cipriano Simon AST [Catalytic activity/Vol] 15 U/L Normal 15-37 [facility] Comment on above: Performed By: #### C MP, TSH #### [facility] [address] [place] [address] Dr. Cipriano Simon Bilirubin [Mass/Vol] 0.5 mg/dL Normal 0.2-1.0 [facility] Comment on above: Performed By: #### C MP, TSH #### [facility] [address] [place] [address] Dr. Cipriano Simon Calcium [Mass/Vol] 8.9 mg/dL Normal 8.5-10.1 [facility] Comment on above: Performed By: #### C MP, TSH #### [facility] [address] [place] [address] Dr. Cipriano Simon Chloride [Moles/Vol] 101 mmol/L Normal 98-107 [facility] Comment on above: Performed By: #### C MP, TSH #### [facility] [address] [place] [address] Dr. Cipriano Simon CO2 [Moles/Vol] 29.1 mmol/L Normal 21.0-32.0 The [facility] Comment on above: Performed By: #### C MP, TSH #### [facility] [address] [place] [address] Dr. Cipriano Simon Creatinine [Mass/Vol] 0.95 mg/dL Normal 0.70-1.30 [facility] Comment on above: Performed By: #### C MP, TSH #### [facility] [address] [place] [address] Dr. Cipriano Simon EGFR-AF ARMENIAN >60 Normal >=60 The [facility] Comment on above: Performed By: #### C MP, TSH #### [facility] [address] [place] [address] Dr. Cipriano Simon EGFR-NON AF ARMENIAN >60 Normal >=60 [facility] Comment on above: Performed By: #### C MP, TSH #### [facility] [address] [place] [address] Dr. Cipriano Simon Globulin (S) [Mass/Vol] 3.5 g/dL Normal [facility] Comment on above: Performed By: #### C MP, TSH #### [facility] [address] [place] [address] Dr. Cipriano Simon Glucose [Mass/Vol] 256 mg/dL Critically high 74-106 [facility] Comment on above: Performed By: #### C MP, TSH #### [facility] [address] [place] [address] Dr. Cipriano Simon Potassium [Moles/Vol] 3.8 mmol/L Normal 3.5-5.1 [facility] Comment on above: Performed By: #### C MP, TSH #### [facility] [address] [place] [address] Dr. Cipriano Simon Protein [Mass/Vol] 7.6 g/dL Normal 6.4-8.2 [facility] Comment on above: Performed By: #### C MP, TSH #### [facility] [address] [place] [address] Dr. Cipriano Simon Sodium [Moles/Vol] 139 mmol/L Normal 136-145 [facility] Comment on above: Performed By: #### C MP, TSH #### [facility] [address] [place] [address] Dr. Cipriano Simon Urea nitrogen [Mass/Vol] 14.0 mg/dL Normal 7.0-18.0 [facility] Comment on above: Performed By: #### C MP, TSH #### [facility] [address] [place] [address] Dr. Cipriano Simon Urea nitrogen/Creatinine [Mass ratio] 14.7 mg/mg Normal [facility] Comment on above: Performed By: #### C MP, TSH #### [facility] [address] [place] [address] Dr. Cipriano Simon TSHon 08-17-2022 TSH 1.540 uIU/mL Normal 0.358-3.[address] [facility] Comment on above: Performed By: #### C MP, TSH #### [facility] [address] [place] [address] Dr. Cipriano Simon RAD - MISCon 03-16-2022 RAD - MISC [id number] [facility] TESTOSTERONE, TOTALon 2021 Testosterone [Mass/Vol] 906 ng/dL Normal 264-916 [facility] Comment on above: Result Comment: Adul t male reference interval is based on a population of healthy nonobese males (BMI <30) between 19 and 39 years old. alva Ferrera.al. JCEM 2017,102;1918-5724. PMID: [id number]. Performed By: #### C MP, TSH #### [facility] [address] [address] [address] Cipriano Simon GLYCOHEMOGLOBIN A1Con 2021 ADA RECOMMENDATION SEE BELOW Normal [facility] Comment on above: Result Comment: ADA RECOMMENDED LIMIT 4.0 - 6.0 ADA THERAPEUTIC TARGET < 7.0 ACTION SUGGESTED > 7.0 Performed By: #### A 1C #### [facility] [address] [address] [address] Cipriano Simon Glucose [Mass/Vol] 171 mg/dL Normal [facility] Comment on above: Performed By: #### A 1C #### [facility] [address] [address] [address] Cipriano Simon HbA1c (Bld) [Mass fraction] 7.6 % Critically high 4.5-6.2 [facility] Comment on above: Performed By: #### A 1C #### [facility] [address] [address] [address] Cipriano Simon XR KUB 1 VIEWon [...] CASE SANDY Date: 2022-03-15 08:36 Normal [facility] XR LSPINE 2_3 VIEWSon 2021 XR [...] CASE SANDY Date: 2022-03-15 08:44 Normal [facility] AMYLASEon 01-25-2022 Amylase [Catalytic activity/Vol] 55 U/L Normal 25-115 [facility] Comment on above: Performed By: #### C MP, LIPA, CMADM, RISSA #### [facility] [address] [address] [address] Cipriano Simon CARDIAC MELINDA ADMITon 022 CK [Catalytic activity/Vol] 76 U/L Normal 39-308 [facility] Comment on above: Performed By: #### C MP, LIPA, CMADM, RISSA #### [facility] [address] [address] [address] Cipriano Simon CK.MB [Mass/Vol] ng/mL Normal <=3.60 [facility] Comment on above: Performed By: #### C MP, LIPA, CMADM, RISSA #### [facility] [address] [address] [address] Cipriano Simon HSTROP 4.8 pg/mL Normal 4.0-76.1 [facility] Comment on above: Result Comment: CUT- OFF POINTS HAVE BEEN ESTABLISHED BASED ON THE FOURTH UNIVERSAL DEFINITIONS OF MYOCARDIAL INFARCTION. THE UPPER REFERENCE LIMIT (URL) OF TROPONIN, DEFINED THE 99TH PERCENTILE OF cTnI DISTRIBUTION IN A REFERENCE POPULATION, HAS BEEN CONFIRMED THE DECISION THRESHOLD FOR [place] DIAGNOSIS. Performed By: #### C HARDY JACKSONA, CMACHRISTEN, RISSA #### [facility] [address] [place] [address] Dr. Cipriano Simon GEOVANNA 33 ng/mL Normal 16-96 [facility] Comment on above: Performed By: #### C HARDY JACKSONA, CMACHRISTEN, RISSA #### [facility] [address] [place] [address] Dr. Cipriano Simon CBC AUTO DIFFon 01-25-2022 BASO # 0.0 103/ul Normal 0.0-0.1 [facility] Comment on above: Performed By: #### A 1C #### [facility] [address] [place] [address] Dr. Cipriano Simon Basophils/100 WBC (Bld) 0.3 % Normal 0.2-2.0 [facility] Comment on above: Performed By: #### A 1C #### [facility] [address] [place] [address] Dr. Cipriano Simon EO # 0.1 103/ul Normal 0.0-0.7 [facility] Comment on above: Performed By: #### A 1C #### [facility] [address] [place] [address] Dr. Cipriano Simon Eosinophils/100 WBC (Bld) 1.7 % Normal 0.9-7.0 [facility] Comment on above: Performed By: #### A 1C #### [facility] [address] [place] [address] Dr. Cipriano Simon Erythrocyte distribution width (RBC) [Ratio] 12.7 % Normal 11.0-15.0 [facility] Comment on above: Performed By: #### A 1C #### [facility] [address] [place] [address] Dr. Cipriano Simon Hematocrit (Bld) [Volume fraction] 43.3 % Normal 42.0-54.0 [facility] Comment on above: Performed By: #### A 1C #### [facility] [address] [place] [address] Dr. Cipriano Simon Hemoglobin (Bld) [Mass/Vol] 15.1 g/dL Normal 14.0-18.0 [facility] Comment on above: Performed By: #### A 1C #### [facility] [address] [place] [address] Dr. Cipriano Simon IG # 0.04 10e3/ul Critically high 0.00-0.03 [facility] Comment on above: Performed By: #### A 1C #### [facility] [address] [place] [address] Dr. Cipriano Simon IG % 0.6 % Critically high 0.0-0.5 [facility] Comment on above: Performed By: #### A 1C #### [facility] [address] [place] [address] Dr. Cipriano Simon LYMPH # 2.9 103/ul Normal 1.2-3.8 [facility] Comment on above: Performed By: #### A 1C #### [facility] [address] [place] [address] Dr. Cipriano Simon Lymphocytes/100 WBC (Bld) 42.1 % Normal 20.5-60.0 [facility] Comment on above: Performed By: #### A 1C #### [facility] [address] [place] [address] Dr. Cipriano Simon MANUAL DIFF REQ NO Normal [facility] Comment on above: Performed By: #### A 1C #### [facility] [address] [place] [address] Dr. Cipriano Simon MCH (RBC) [Entitic mass] 29.5 pg Normal 25.9-34.0 [facility] Comment on above: Performed By: #### A 1C #### [facility] [address] [place] [address] Dr. Cipriano Simon MCHC (RBC) [Mass/Vol] 34.9 g/dL Normal 29.9-35.2 [facility] Comment on above: Performed By: #### A 1C #### [facility] [address] [address] [address] Cipriano Simon MCV (RBC) [Entitic vol] 84.7 fL Normal 80.0-94.0 [facility] Comment on above: Performed By: #### A 1C #### [facility] [address] [address] [address] Cipriano Simon MONO # 0.4 103/ul Normal 0.3-0.8 [facility] Comment on above: Performed By: #### A 1C #### [facility] [address] [place] [address] Dr. Cipriano Simon Monocytes/100 WBC (Bld) 5.5 % Normal 1.7-12.0 [facility] Comment on above: Performed By: #### A 1C #### [facility] [address] [place] [address] Dr. Cipriano Simon NEUT # 3.4 103/ul Normal 1.4-6.5 [facility] Comment on above: Performed By: #### A 1C #### [facility] [address] [place] [address] Dr. Cipriano Simon Neutrophils/100 WBC (Bld) 49.8 % Normal 43.0-75.0 [facility] Comment on above: Performed By: #### A 1C #### [facility] [address] [place] [address] Dr. Cipriano Simon Platelet mean volume (Bld) [Entitic vol] 9.4 fL Critically low 9.5-13.5 [facility] Comment on above: Performed By: #### A 1C #### [facility] [address] [place] [address] Dr. Cipriano Simon PLT 238 103/ul Normal 150-450 [facility] Comment on above: Performed By: #### A 1C #### [facility] [address] [place] [address] Dr. Cipriano Simon RBC 5.11 106/ul Normal 4.70-6.10 [facility] Comment on above: Performed By: #### A 1C #### [facility] [address] [place] [address] Dr. Cipriano Simon WBC 6.9 103/ul Normal 4.0-11.0 [facility] Comment on above: Performed By: #### A 1C #### [facility] [address] [place] [address] Dr. Cipriano Simon LACTATE/LACTIC ACIDon 2021 Lactate [Moles/Vol] 1.2 mmol/L Normal 0.4-1.9 [facility] Comment on above: Performed By: #### A 1C #### [facility] [address] [place] [address] Dr. Cipriano Simon LIPASEon 01-25-2022 Lipase [Catalytic activity/Vol] 89.0 U/L Normal 73.0-393.0 [facility] Comment on above: Performed By: #### C MP, LIPA, CMADM, RISSA #### [facility] [address] [place] [address] Dr. Cipriano Simon PROF 14(COMP METB)on 022 Albumin [Mass/Vol] 3.8 g/dL Normal 3.4-5.0 [facility] Comment on above: Performed By: #### C MP, LIPA, CMADM, RISSA #### [facility] [address] [place] [address] Dr. Cipriano Simon Albumin/Globulin [Mass ratio] 1.1 {ratio} Normal [facility] Comment on above: Performed By: #### C MP, LIPA, CMADM, RISSA #### [facility] [address] [place] [address] Dr. Cipriano Simon ALP [Catalytic activity/Vol] 111 U/L Normal 46-116 [facility] Comment on above: Performed By: #### C MP, LIPA, CMADM, RISSA #### [facility] [address] [place] [address] Dr. Cipriano Simon ALT [Catalytic activity/Vol] 41 U/L Normal 16-63 [facility] Comment on above: Performed By: #### C MP, LIPA, CMADM, RISSA #### [facility] [address] [place] [address] Dr. Cipriano Simon Anion gap [Moles/Vol] 11.5 mmol/L Normal [facility] Comment on above: Performed By: #### C MP, LIPA, CMADM, RISSA #### [facility] [address] [address] [address] Cipriano Simon AST [Catalytic activity/Vol] 16 U/L Normal 15-37 [facility] Comment on above: Performed By: #### C MP, LIPA, CMADM, RISSA #### [facility] [address] [address] [address] Cipriano Simon Bilirubin [Mass/Vol] 0.5 mg/dL Normal 0.2-1.0 [facility] Comment on above: Performed By: #### C MP, LIPA, CMADM, RISSA #### [facility] [address] [place] [address] Dr. Cipriano Simon Calcium [Mass/Vol] 9.0 mg/dL Normal 8.5-10.1 [facility] Comment on above: Performed By: #### C MP, LIPA, CMADM, RISSA #### [facility] [address] [place] [address] Dr. Cipriano Simon Chloride [Moles/Vol] 101 mmol/L Normal 98-107 [facility] Comment on above: Performed By: #### C MP, LIPA, CMADM, RISSA #### [facility] [address] [address] [address] Cipriano Simon CO2 [Moles/Vol] 26.1 mmol/L Normal 21.0-32.0 The [facility] Comment on above: Performed By: #### C MP, LIPA, CMADM, RISSA #### [facility] [address] [address] [address] Cipriano Simon Creatinine [Mass/Vol] 0.84 mg/dL Normal 0.70-1.30 [facility] Comment on above: Performed By: #### C MP, LIPA, CMADM, RISSA #### [facility] [address] [address] [address] Cipriano Simon EGFR-AF ARMENIAN >60 Normal >=60 The [facility] Comment on above: Performed By: #### C MP, LIPA, CMADM, RISSA #### [facility] [address] [place] [address] Dr. Cipriano Simon EGFR-NON AF ARMENIAN >60 Normal >=60 [facility] Comment on above: Performed By: #### C MP, LIPA, CMADM, RISSA #### [facility] [address] [place] [address] Dr. Cipriano Simon Globulin (S) [Mass/Vol] 3.4 g/dL Normal [facility] Comment on above: Performed By: #### C MP, LIPA, CMADM, RISSA #### [facility] [address] [place] [address] Dr. Cipriano Simon Glucose [Mass/Vol] 245 mg/dL Critically high 74-106 T [facility] Comment on above: Performed By: #### C MP, LIPA, CMADM, RISSA #### [facility] [address] [place] [address] Dr. Cipriano Simon Potassium [Moles/Vol] 3.6 mmol/L Normal 3.5-5.1 [facility] Comment on above: Performed By: #### C MP, LIPA, CMADM, RISSA #### [facility] [address] [place] [address] Dr. Cipriano Simon Protein [Mass/Vol] 7.2 g/dL Normal 6.4-8.2 [facility] Comment on above: Performed By: #### C MP, LIPA, CMADM, RISSA #### [facility] [address] [place] [address] Dr. Cipriano Simon Sodium [Moles/Vol] 135 mmol/L Critically low 136-145 [facility] Comment on above: Performed By: #### C MP, LIPA, CMADM, RISSA #### [facility] [address] [place] [address] Dr. Cipriano Simon Urea nitrogen [Mass/Vol] 13.0 mg/dL Normal 7.0-18.0 [facility] Comment on above: Performed By: #### C MP, LIPA, CMADM, RISSA #### [facility] [address] [address] [address] Cipriano Simon Urea nitrogen/Creatinine [Mass ratio] 15.5 mg/mg Normal [facility] Comment on above: Performed By: #### C MP, LIPA, CMADM, RISSA #### [facility] [address] [address] [address] Cipriano Simon XR ABD FLAT UP_PA [...] BRIA [place] Date: 2022-01-25 02:00 Normal [facility] CBC AUTO DIFFon 12-21-2021 BASO # 0.0 103/ul Normal 0.0-0.1 [facility] Comment on above: Performed By: #### C MP, TSH #### [facility] [address] [place] [address] Dr. Cipriano Simon Basophils/100 WBC (Bld) 0.5 % Normal 0.2-2.0 [facility] Comment on above: Performed By: #### C MP, TSH #### [facility] [address] [place] [address] Dr. Cipriano Simon EO # 0.2 103/ul Normal 0.0-0.7 [facility] Comment on above: Performed By: #### C MP, TSH #### [facility] [address] [place] [address] Dr. Cipraino Simon Eosinophils/100 WBC (Bld) 2.9 % Normal 0.9-7.0 [facility] Comment on above: Performed By: #### C MP, TSH #### [facility] [address] [place] [address] Dr. Cipriano Simon Erythrocyte distribution width (RBC) [Ratio] 13.0 % Normal 11.0-15.0 [facility] Comment on above: Performed By: #### C MP, TSH #### [facility] [address] [place] [address] Dr. Cipriano Simon Hematocrit (Bld) [Volume fraction] 44.9 % Normal 42.0-54.0 [facility] Comment on above: Performed By: #### C MP, TSH #### [facility] [address] [place] [address] Dr. Cipriano Simon Hemoglobin (Bld) [Mass/Vol] 15.7 g/dL Normal 14.0-18.0 [facility] Comment on above: Performed By: #### C MP, TSH #### [facility] [address] [place] [address] Dr. Cipriano Simon IG # 0.03 10e3/ul Normal 0.00-0.03 [facility] Comment on above: Performed By: #### C MP, TSH #### [facility] [address] [place] [address] Dr. Cipriano Simon IG % 0.5 % Normal 0.0-0.5 [facility] Comment on above: Performed By: #### C MP, TSH #### [facility] [address] [place] [address] Dr. Cipriano Simon LYMPH # 2.6 103/ul Normal 1.2-3.8 [facility] Comment on above: Performed By: #### C MP, TSH #### [facility] [address] [place] [address] Dr. Cipriano Simon Lymphocytes/100 WBC (Bld) 44.6 % Normal 20.5-60.0 [facility] Comment on above: Performed By: #### C MP, TSH #### [facility] [address] [place] [address] Dr. Cipriano Simon MANUAL DIFF REQ NO Normal [facility] Comment on above: Performed By: #### C MP, TSH #### [facility] [address] [place] [address] Dr. Cipriano Simon MCH (RBC) [Entitic mass] 29.7 pg Normal 25.9-34.0 [facility] Comment on above: Performed By: #### C MP, TSH #### [facility] [address] [place] [address] Dr. Cipriano Simon MCHC (RBC) [Mass/Vol] 35.0 g/dL Normal 29.9-35.2 [facility] Comment on above: Performed By: #### C MP, TSH #### [facility] [address] [place] [address] Dr. Cipriano Simon MCV (RBC) [Entitic vol] 84.9 fL Normal 80.0-94.0 [facility] Comment on above: Performed By: #### C MP, TSH #### [facility] [address] [place] [address] Dr. Cipriano Simon MONO # 0.4 103/ul Normal 0.3-0.8 [facility] Comment on above: Performed By: #### C MP, TSH #### [facility] [address] [place] [address] Dr. Cipriano Simon Monocytes/100 WBC (Bld) 7.0 % Normal 1.7-12.0 [facility] Comment on above: Performed By: #### C MP, TSH #### [facility] [address] [place] [address] Dr. Cipriano Siomn NEUT # 2.6 103/ul Normal 1.4-6.5 [facility] Comment on above: Performed By: #### C MP, TSH #### [facility] [address] [place] [address] Dr. Cipriano Simon Neutrophils/100 WBC (Bld) 44.5 % Normal 43.0-75.0 [facility] Comment on above: Performed By: #### C MP, TSH #### [facility] [address] [address] [address] Cipriano Simon Platelet mean volume (Bld) [Entitic vol] 9.3 fL Critically low 9.5-13.5 [facility] Comment on above: Performed By: #### C MP, TSH #### [facility] [address] [address] [address] Cipriano Simon PLT 215 103/ul Normal 150-450 [facility] Comment on above: Performed By: #### C MP, TSH #### [facility] [address] [address] [address] Cipriano Simon RBC 5.29 106/ul Normal 4.70-6.10 [facility] Comment on above: Performed By: #### C MP, TSH #### [facility] [address] [place] [address] Dr. Cipriano Simon WBC 5.9 103/ul Normal 4.0-11.0 [facility] Comment on above: Performed By: #### C MP, TSH #### [facility] [address] [place] [address] Dr. Cipriano Simon GLYCOHEMOGLOBIN A1Con 2021 ADA RECOMMENDATION SEE BELOW Normal [facility] Comment on above: Result Comment: ADA RECOMMENDED LIMIT 4.0 - 6.0 ADA THERAPEUTIC TARGET < 7.0 ACTION SUGGESTED > 7.0 Performed By: #### A 1C #### [facility] [address] [place] [address] Dr. Cipriano Simon Glucose [Mass/Vol] 169 mg/dL Normal [facility] Comment on above: Performed By: #### A 1C #### [facility] [address] [address] [address] Cipriano Simon HbA1c (Bld) [Mass fraction] 7.5 % Critically high 4.5-6.2 [facility] Comment on above: Performed By: #### A 1C #### [facility] [address] [place] [address] Dr. Cipriano Simon LIPID PROFILEon 12-21-2021 CHOL-HDL RATIO NORM SEE BELOW Normal [facility] Comment on above: Result Comment: 3.3 - 4.4 LOW RISK 4.4 - 7.1 AVERAGE RISK 7.1 - 11.0 MODERATE RISK >11.0 HIGH RISK Performed By: #### C MP, TSH #### [facility] [address] [address] [address] Cipriano Simon Cholesterol [Mass/Vol] 185 mg/dL Normal <=200 [facility] Comment on above: Performed By: #### C MP, TSH #### [facility] [address] [address] [address] Cipriano Simon Cholesterol in HDL [Mass/Vol] 39 mg/dL Critically low 40-60 [facility] Comment on above: Performed By: #### C MP, TSH #### [facility] [address] [address] [address] Cipriano Simon Cholesterol in LDL [Mass/Vol] 99.2 mg/dL Normal [facility] Comment on above: Performed By: #### C MP, TSH #### [facility] [address] [address] [address] Cipriano Simon Cholesterol.total/Ch olesterol in HDL [Mass ratio] 4.7 {ratio} Normal [facility] Comment on above: Performed By: #### C MP, TSH #### [facility] [address] [address] [address] Cipriano Simon HDL NORMAL > or = 60 mg/dl - LO W CARDIOVASCULAR RISK <40 mg/dl - HIGH CARDIOVASCULAR RISK Normal [facility] Comment on above: Performed By: #### C MP, TSH #### [facility] [address] [address] [address] Cipriano Simon LDL CALC NORMAL SEE BELOW Normal [facility] Comment on above: Result Comment: <100 mg/dl OPTIMAL 100 - 129 mg/dl NEAR OR ABOVE OPTIMAL 130 - 159 mg/dl BORDERLINE HIGH 160 - 189 mg/dl HIGH >190 mg/dl VERY HIGH Performed By: #### C MP, TSH #### [facility] [address] [address] [address] Cipriano Simon Triglyceride [Mass/Vol] 234 mg/dL Critically high <=150 [facility] Comment on above: Performed By: #### C MP, TSH #### [facility] [address] [place] [address] Dr. Cipriano Simon VLDL CALC 46.8 mg/dL Normal [facility] Comment on above: Performed By: #### C MP, TSH #### [facility] [address] [place] [address] Dr. Cipriano Simon MICROALBUMIN, RAND URon 12-10 mALB <1.3 Normal <=30.0 [facility] Comment on above: Performed By: #### M ALBR #### [facility] [address] [place] [address] Dr. Cipriano Simon PROF 14(COMP METB)on 022 Albumin [Mass/Vol] 3.9 g/dL Normal 3.4-5.0 [facility] Comment on above: Performed By: #### C MP, TSH #### [facility] [address] [place] [address] Dr. Cipriano Simon Albumin/Globulin [Mass ratio] 1.1 {ratio} Normal [facility] Comment on above: Performed By: #### C MP, TSH #### [facility] [address] [place] [address] Dr. Cipriano Simon ALP [Catalytic activity/Vol] 96 U/L Normal 46-116 [facility] Comment on above: Performed By: #### C MP, TSH #### [facility] [address] [place] [address] Dr. Cipriano Simon ALT [Catalytic activity/Vol] 51 U/L Normal 16-63 [facility] Comment on above: Performed By: #### C MP, TSH #### [facility] [address] [place] [address] Dr. Cipriano Simon Anion gap [Moles/Vol] 13.4 mmol/L Normal [facility] Comment on above: Performed By: #### C MP, TSH #### [facility] [address] [place] [address] Dr. Cipriano Simon AST [Catalytic activity/Vol] 15 U/L Normal 15-37 [facility] Comment on above: Performed By: #### C MP, TSH #### [facility] [address] [place] [address] Dr. Cipriano Simon Bilirubin [Mass/Vol] 0.8 mg/dL Normal 0.2-1.0 [facility] Comment on above: Performed By: #### C MP, TSH #### [facility] [address] [place] [address] Dr. Cipriano Simon Calcium [Mass/Vol] 8.8 mg/dL Normal 8.5-10.1 [facility] Comment on above: Performed By: #### C MP, TSH #### [facility] [address] [place] [address] Dr. Cipriano Simon Chloride [Moles/Vol] 105 mmol/L Normal 98-107 [facility] Comment on above: Performed By: #### C MP, TSH #### [facility] [address] [place] [address] Dr. Cipriano Simon CO2 [Moles/Vol] 25.4 mmol/L Normal 21.0-32.0 The [facility] Comment on above: Performed By: #### C MP, TSH #### [facility] [address] [place] [address] Dr. Cipriano Simon Creatinine [Mass/Vol] 0.91 mg/dL Normal 0.70-1.30 [facility] Comment on above: Performed By: #### C MP, TSH #### [facility] [address] [place] [address] Dr. Cipriano Simon EGFR-AF ARMENIAN >60 Normal >=60 The [facility] Comment on above: Performed By: #### C MP, TSH #### [facility] [address] [place] [address] Dr. Cipriano Simon EGFR-NON AF ARMENIAN >60 Normal >=60 [facility] Comment on above: Performed By: #### C MP, TSH #### [facility] [address] [place] [address] Dr. Cipriano Simon Globulin (S) [Mass/Vol] 3.6 g/dL Normal [facility] Comment on above: Performed By: #### C MP, TSH #### [facility] [address] [place] [address] Dr. Cipriano Simon Glucose [Mass/Vol] 198 mg/dL Critically high 74-106 T [facility] Comment on above: Performed By: #### C MP, TSH #### [facility] [address] [place] [address] Dr. Cipriano Simon Potassium [Moles/Vol] 3.8 mmol/L Normal 3.5-5.1 [facility] Comment on above: Performed By: #### C MP, TSH #### [facility] [address] [place] [address] Dr. Cipriano Simon Protein [Mass/Vol] 7.5 g/dL Normal 6.4-8.2 [facility] Comment on above: Performed By: #### C MP, TSH #### [facility] [address] [place] [address] Dr. Cipriano Simon Sodium [Moles/Vol] 140 mmol/L Normal 136-145 [facility] Comment on above: Performed By: #### C MP, TSH #### [facility] [address] [place] [address] Dr. Cipriano Simon Urea nitrogen [Mass/Vol] 13.0 mg/dL Normal 7.0-18.0 [facility] Comment on above: Performed By: #### C MP, TSH #### [facility] [address] [place] [address] Dr. Cipriano Simon Urea nitrogen/Creatinine [Mass ratio] 14.3 mg/mg Normal [facility] Comment on above: Performed By: #### C MP, TSH #### [facility] [address] [place] [address] Dr. Cipriano Simon VITAMIN B12on 12-21-2021 Cobalamin (Vitamin B12) [Mass/Vol] 647.0 pg/mL Normal 193.0-986.0 [facility] Comment on above: Performed By: #### C MP, TSH #### [facility] [address] [place] [address] Dr. Cipriano Simon Ambulatory Visit Summaryon 0 11-09-2021 Ambulatory Visit Summary RIC SANCHEZ :1960 Visit Date:11/09/2021 Ambulatory Visit Instructions Your Diagnosis Kidney stone Tests Performed Urnls Dip Stick Auto w/o Microscopy POC 72016 XR Abdomen 1 View -- Results Pending [...] Comments: w/kub Where: [facility] [address] [place] [address]- Medications What How Much When Instructions Unchanged [...] Urnls Dip Stick Auto w/o Microscopy POC 74446 (11/09/2021) Bilirubin Urine Dipstick - Negative Blood Urine Dipstick - Negative Glucose Urine Dipstick - 3+ 1000 mg/dl Ketones Urine Dipstick - Trace - 5 mg/dl Leukocytes Urine Dipstick - Negative Nitrite Urine Dipstick - Negative Protein Urine Dipstick - Negative Specific [place] Urine Dipstick - 1.020 Urine Appearance Urine [...] usuall (more content not included)... Normal [facility] Patient Educationon 11-10-19 Patient Education [...] these instructions at home: Medicines ? Take [id number] and prescription medicines only as told by [...] 11/14/2008 Document Revised: 10/15/2019 Document Reviewed: 10/15/2019 [employer] Patient Education ? 2019 [employer] [facility] Urology Office/Clinic Noteon 11-09-2021 Urology Office/Clinic Note [...] do not have a PSA for review. [facility] Staff pt is here for 6mo f/u [...] Urnls Dip Stick Auto w/o Microscopy POC 16109 Urnls Dip Stick Auto w/o Microscopy POC 91911 XR Abdomen 1 View XR Abdomen 1 View Follow-up With When Contact Information Elan Peterson MD, Lino Goodson, URO In 6 months 05/12/2022 [facility] [address], [place] [address]- Additional Instructions: w/kub Patient Education Kidney Stones, [id number] Grace Elizabeth personally scribed for Dr. Ansari [...] (more content not included)... Normal [facility] Comment on above: Result Comment: Elec tronically Signed By: Lino Ansari Jr., MD\.br\Date and Time Signed: 11/09/21 09:52 EDT\.br\Electronically Co-Signed By: Grace Marin MA.tay\Date and Time Co-Signed: 11/09/21 09:47 EDT GLYCOHEMOGLOBIN A1Con 2021 ADA RECOMMENDATION ADA THERAPEUTIC TARG ET 6.0 - 7.0 ACTION SUGGESTED > 7.0 Normal [facility] Comment on above: Performed By: #### C MP, TSH #### [facility] [address] [address] [address] Cipriano Simon Glucose [Mass/Vol] 148 mg/dL Normal [facility] Comment on above: Performed By: #### C MP, TSH #### [facility] [address] [place], [place] [address] Dr. Cipriano Simon HbA1c (Bld) [Mass fraction] 6.8 % Critically high <=6.0 [facility] Comment on above: Performed By: #### C MP, TSH #### [facility] [address] [address] [address] Cipriano Simon Formson 04-08-2021 Forms [id number]#1.0 0CD:[address] [facility] Coding Summary.on 04-07-2021 Coding Summary. CD:[id number] Gh 0bWw+PGhlYWQ+MM9KHNGzA 72idETbuN9SL6kXBE9BOAG MCCPFWO2ZRG6txRI7JAmlI 2VybiAv MfrjsWLePG64QOb9MID5zS ykCAbbkI7riXGeG5f9BmOw YE89fM67UIgmAFBjOxQ2Xa ZpbjsgbWFy A2dtHxRduINdIyr+PHRhYm xlIHdpZHRoPScxMDAlJyBz sCzeUT1vRi6fPYPtENMstF xhcHNlOiBj d0uvGRXkMGbtLZ0wxHicT2 KzkEL2FSHlc7u1Ia43aOY+ UUMpACI2gIibXWgzh771Xy Kpq0vvPPG9 xXUxFNntXTI2B16vj3S1KR PeOHVjBGX2nUR6kM2yjAnl jhmnB6UfwLNsEyX1OIA3pA BzhY6gwYwr vtrwzN9pXlt+H77OYU8OMT XRPU1SLdt4U8DaSfokgYT+ BP34STDyKO47rMUslBZkx5 xzfNk9BaPr VDMqJBR7jMkyTRbiq5GxTN NcN33xlOTkw2N9DLXgwPsr zFLzMxYvtMM3gD6bKOmkuf wlu5eobfmg Tqdep5enei20nI09Q91gCG mrIFMnXWT4VPXfYMSzfHwj bo6qmJ2oBa0+BXrcy3nad6 mqeHg5FtNw EVNjzpIzyJlzMPV5z0LvVr 52J8KgwButn1EwNvq2lr33 hVCfa7X5jGD8GFrdTCTqxR 2mYVopKqR3 TBQsUdXavM00lDYtVXszVw 6zwKfkmJifYE9fGHRijdlk LTYivN8jKQVbhFRkrFarUV 4wNTBpbjtm c440QaYkIWB1HDIzjNQpG4 ZdgB2wRiMjJLWsPQBvN7Qz bRHhTQbjP257KGrwYwY4OD RprhQlV7Pt ODWncPexHuY8b9K0Og7Rx8 HoaulzRPH8SJmxZLYgPnS6 JgYoNbP8R6TfWpa8PIPqwR yfLZ2pS8Fj LDBkagcftilckHO0LGSgWV OvwB51sTLeVVauFn7nl6T7 i307WQBxPGMitB19Iq5kaM ogMTBwdCBU yO6havsqf2tfcfdwKuTpPG NuABf6MJl7WAYqtNdeImIi FDA6KqT6XAX1kEGfnA3wpU mnblompJ4x Oyc+X49zjY3aARO5ZQZ6pu mnAVEohaSkNM49GI65Z7Ru PjwvdGFibGU+PGRpdiBzdH waIV6lBgHo k9omz1FiRVkmG3EoMSVzQG hlVfq9OQEjNTL1bYU3oM2h TOLmKUqwz6K2pQK4Y3Owrf Ylgx9jy3ob NHEdWYnpK62bkGOqg4E1OJ AgxHL4EAAmvHjeLuUrgD03 Oyc+GYFhyCjsv7XcDqkjl9 vrr2dbdYk2 FaEcKKWzlkFkdSfoEJH5l9 VcIa60Q56xBImjLHYtOLGk PYOoFXJerVcdrw5aiN1bFb 8+PGNvbCB3 yBT6zA8oRYIvNqT2TXsgT5 58RcUcqGGlPpinj7eer6ix oYh2BsGtPJNvqdMpcPhjDP M3s0RoVa14 Q70cKObpFBEgMBQvICQtOS PfzAfwpb4gaE2bPu8+PC9j s0mxom66sD14kUG+PHRkIH C0uYxbOTym AYDufJ1qIRrrItB4KFGgFm GfaV96eCSvIVphBp5cySyt vMbuSE0kQOWbwpcsy075Fq Ccj0fvFQIo oBQuWMylEGM5L22vo0X3KU OvVMFzTXD5aDR7sQ8evRcq bjogbGVmdDsgdmVydGljYW fjYGrjF883 IHRvcDsnPlBhdGllbnQgTm TsTUp2P8LfWcx4PIEwdHxy QR5gxAKrYDafTi5avOimeD ieZZ4wRFEs indeb475GaTue8coJHPolD XdEZpbSYB3M38nf9K7CQHr HVCxKAU3rBO4cG3frMmndd ogbGVmdDsg wwBicMqhNRqwTLslF547UQ RvcDsnPkJpcnRoIERhdGU6 FJ98TO71yBMok4B4dTR8E7 BhZGRpbmct hznhpSL6DZYnNKJabI77Vs 3tmAeiIt0oJCLfVMU5EZUm fJRjA8ReiR8tTgYpKUCvRK FyQ6XnoPSq HZreU660YBscRhE8ADTfxb FlY6SePRUcvIxrFcB0d6T6 Qu7MT2Q7FQ46CG75fAIlb6 K0zYS7D7Qb QMPetgesapbtiQH2BZZyDC QwcK65Xe0irDddMp8nFEQv HPH1RNOufILiC9YmqW2dEz AjMDAwMDAw B9WboUXeZHwqW698DAcyKt H8AKNcsaEzT7BmGHLiyKfy WaH1a1A9Im7ZDBb5GV32WQ 79rALov6Q5 rOI3F7GiAPZfblsmzsvojY X9YARzQFHilD59Ei1ibRtr Bf6iTRXcSNX4CJDhoXWyP5 EjjU5eGaPm IFEkUREsL4GlbGKyOJjnF1 19KNceLhT0GPZcpuUdO9Gf MBMcbHawNgE6m3Y1Br9RIO FhGE28SUH7 nMD8OA33ZC42E5YeWhmfnL FibGU+PHRhYmxlIHdpZHRo EPxiCGBiFfCdtXykLW7iBz 9yZGVyLWNv pYvemYWxQiPpo2kyFFIwQO gkGD0dcJmaQ3KczVD1VENc b5q0Ip02M15aT8EyuWO+PG EhlHV1uHL5 dE6gGpWwNgL4WNxeI508Lj TlwCEtArkif7vqb7iawDu4 DzQ6XSAbmkEroXlxZJC0e6 TdDm47K60k IHdpZHRoPSIxNSUiIHZhbG lofj0tdL0rEm5+PGNvbCB3 fJJ9zU5uPuJpGoZ8KRluX1 49InRvcCIv Tikin5met6pteOm7GyLlSL BjgcIpgZrkISX6r6XxMc36 R3GlvQaoo7VdOga4ef03bI Vvf0M1mFG7 G0EjABRcqpufbRZqbYszEJ 2bGCFhjxewGJEpuN3qGLRk X5f9JcBcShS8ANocF6Dfpy Z0VPUhpIAv UQzcWGJ2C99zm2W6GMLzLS MkQAZ5yNI1tG9nrDcyhiwo bGVmdDsgdmVydGljYWwtYW nhB381FETc bIvsXNLifO9kQXFhkUCpcH khBW6oKYEpqxikSq5NJY6d QPuQMNrGRom2P9QcJtp7TG JvoClpEA1o wCOqAXleQj2xtEgktEgeTI 2pZTGliteoRNJgpE8qKYUi mUTzgWyrAC9zXWJzoqtfe8 59KyLqRHS4 ZFHytHGtP6DimN1iQdArBE WrWJRfH9MeaPRaNCcbL467 LQctPvX6MTAnbiOyC8ZpEH FsaWduOiB0 q3Z9Ta4jQp9mWt6fVSOuUM 78QY54zDPrv0Y9sMN3G2Ey BJNfauifumdilZA2YZDaJE ZeoR33eDEb BXswBv6ee2S3j489NKYyOX DnrN01Om5zzDqnEKOwlVLC sD8ddzsat7uovsqaTrGiTP PyNIj7UGj6 QRNijYbcZaTvQXS1KsE5XI C0cPDniS3foRefteqdkD4n Oyc+UGlhUAYtbtZ4T1AhJq t8UCWjiYoa EJ7hdJPrJRpgLz5nmCursF vvMC6oYYNxoghvYTFdtM0l EJMkkHTroYyqTO8tKONvom cyt834NdCh ICZ5IYSwtVOrC9MryA5iYl TbFLRvKGQbF8XiuAIsZQme R098CMpxOpD4TIBixwSwZ2 FsLWFsaWdu HeA8e6D2Eo5XXZssBC55PL 49yKHxh6S8aBY6D8GtIOMv egtncbqgtDK0YJFqQFBccI 47cGFkZGlu Ri6mx6Y3g829SNOaKLKraK 75Uy9rkQjcLPPobBOKbC3s gcryb2ctlpfnVpHqSKTgNL h7OXn5CWSf uBqyDdKbSWF3VcQ6IGP8cU DckL4zuRxztcgglV5xBir+ V1V0jFW6yLLxdVxyxXD+PC 58ej03M9Tr NxuyIoq0IVOcMKO1cHI9hG 5jHLVqWEgqz4I5rPV9B3Rd kuPfvb5uo0nqVWDiCFwjY8 9qsPBxe8D4 UFOeuKL7KLSmhCnmJkAreQ 93Oyc+NDImuFyhi7SrOupc m0qus5irqHn8ThYnWJNfhi FsaWduPSJ0 r1QgHp58E59fXHklDIBxWX KrDAOzCXCltJgqpk3ceK3f Ii8+WRSxbWC3tAI7oZ8wYy FwCmV4BIum L248MtQweCZzUbrac0ets3 yseVu5QdNtEQDbyxZqaFdv ASM6p5KxFl97Z7JvlWecu1 KfCfh3pw11 pEYew8Y8uOM0C2HjBNYkdd kjkOIooGzlBL9mZKRqfiym NLJxvD9cGHNxN7p9VxDvSv U0UUkcF5Wd ywY4VCXsfJRiNFTptHFSdU 2pvsdfd1mcpimhYoCoRWWv WEq1KSs4KIEkyWbyIaLcDK I4BnY9YPH9 nKCppW2gdJbksukhvJ7jGr c+ABc4c1haoDWpXO0uqJD1 RH31DW92yBUno9S9dRV4N6 BhZGRpbmct augxyYM2HKMlKCQflO02Os 7bqUblEg1lZZUnNRT3OIOj hAObE4PwuS6pCiQzOHKkZA UvH8HylZGm EOpgN184APgqYaK8TJQrcr ErE9KlIKSueEdiHdI4x0S1 Gr3TBR93IJ65GF35qAVbe3 C7lOV8H9Js MZDrraxrzwctoDT1QRLgUJ WfoQ19Mn5frOwwYp9iKWCo YTE4TPLnuGYfB6MkvU1nLv AjMDAwMDAw E7DdrBMuDIsqE556ICvuUf J5EYPbwrCaP3JyUMYscUoz DvT6a1P6Zp3WTe83LF91VP 85hPLfb2V4 mOK6A6KiIGOyjsbjyrbqcF D8CMCdMKArrQ19Gz9qkOjs Mu7wAIOwRZZ8RMPmvJUlS0 PgxU4oYkLb CTRsQTQhG7KmtGPqWMcxJ4 23QGjlWkF4IHBydcOlI2Rs MQXdhRjvPkP2z2Z2Ui3RNJ izgtw1O2Le PjwvdHI+JR22KYFfXJ23sW RljZWee1vheZs9FgSwJWAu BDX5oVleMIbqb3TmUENpU7 2jpIQqo6Q5 IGNv (more content not included)... Normal [facility] Consent for Procedure/Surger yon 04-06-2021 Consent for Procedure/Surgery [id number]#1. 00CD:[address] [facility] IntraOperative Documentson 1 IntraOperative Documents [id number]#1. 00CD:127 [facility] Pre-Certification Formon Pre-Certification Form [id number]#1.0 0CD:[address] [facility] Coding Summary.on 04-02-2021 Coding Summary. CD:[id number] Gh 0bWw+PGhlYWQ+NO6PGWLqA 78dpGCkvS3SJ6iTJR9OGPG XDWLVUQ1AJA8pjSF2MMnxP 2VybiAv SxaxlYFkEY42YFo9OLQ2vH pbLAtzsP4tyFGsE5s7YsWw WO24hN86DLpfZUNzMxX7Gz ZpbjsgbWFy H3osLyMunFOjDyi+PHRhYm xlIHdpZHRoPScxMDAlJyBz eAjaVN2tAj8vUJEyPUQcaR xhcHNlOiBj n0xePKSpAEdgBG0vcQcoL3 UefUF9ATNtb2e1Ft40oUA+ DVAdTBF6vWpsFXxna235Ij Otq3yxHQY1 jKDmFQojKZL3M49ev6C4BO IqDTDfXQH6yAT4kH3yvBua xmjlU8YwgUJxXzF6FGK6xS GeyW4spYxc wgntbN4iVod+L03RWD3ZGR KDMT8DGao9V7RvBtzmdZO+ RO24YVVkDG93nDLytCTuf5 nbqOj4YkVa LGNuZVC2dJryFUneo5ZcDB HgX49tiNUhi4F0HXWayKqr jNMfYkMcxBH5vI6cHTildp slu1hnnttr Qxwdd2rtss74xC44M99wPR pkVTHsDYX7HULfFHTkqYqn my9jyI3rEr5+QCmfq8gsa0 ixyZg4ZlIs EACwjhJksAscFHP6p5OnVl 43R9CniSyzx7KsAcy9ny23 lMSsq7M9bGX1LHjiADLwcJ 2cZBelEoV9 HOWaYtEndI61tKSuKHknDu 1tpNyoeLlwTT9qDTGgbcfh XMYuhE3eRJXxrUDnlOheDT 4wNTBpbjtm s790VsGaVSX1BZEbcULbW3 MzuX3vYaDjVLAeWBKfQ2Rl hGQtKNctQ046LTreIrW6GL WammEkI0Te NPMvbKalTwW9s4N7Pw0Dw1 ZrutliCAI4FQcaWQXyYiAt RuZbElZ2N7KkIot0ZOIsaT zmZY5tZ1Lg UXAxtdzvgjgykPP9BDHlMX IohI70dGOnKOwdLv0px9B5 u195FNFmMXZbyC99Fp2joK ogMTBwdCBU uQ9gzlpbq4tycxtlHlVqIR JvRNf0PMn1CSPysLkyAvFj SJV6EaK0GSG5oLDzmX8psO wnnzcyoM1p Oyc+R81esR9aAOB1NTB2jl giYOEtamCbGW59PP46O9Cs PjwvdGFibGU+PGRpdiBzdH msRT2nKiRv x4osb8IwHRffC0BeNUKaPH qbUaa9SBTzQUC7mST9vU6d DBXyRFicl3S5uUP8J3Komm Ausl1tc3fg UJKdHSauC94vwWNei7V9CN MaiBC3RLNryVdkZuJhyE57 Oyc+ITWijErca4JoNxaep8 hls8xayPy5 VoHgYTNmceYvwYjjQZM2k1 QtSe31D06xGCkcIAOxUFBa RZSaPBVclQmmfw3cmG3jBj 8+PGNvbCB3 pOF8aG1oVKVkKqJ1DGnuM7 11ZyKyrABaNsrfy2hpo7sw mMb9ZsQsDXBuwmJcpCyoXS U2z4OxIe79 Z76tPAqzGMPiKLEeQYGiSR HmeFpvsw1ndC0uEe2+PC9j g4cymt37uK09pYD+PHRkIH E0gLvzQYte DQQvsL2pVQnePnG1LZScVk GzjP06fMGoHXcbPo7wnInn aPorJI7nAZQlsymyc795Gc Npz1yeOWLk mETjJDaeOQT6Z94hx3E2FU VkYGVsILE6mFW7vD2gaDqu bjogbGVmdDsgdmVydGljYW keARykT433 IHRvcDsnPlBhdGllbnQgTm IcDTp0Q6LfLlk9ICWhgZtu GN7qiDTuBYniEd0rfZuvoD maEK3rEGPw efjdj329FzYwq1nyOSRdsL IwKBzkIEV1T88bj9P8PFJh WIWsRAQ4oQE7dQ2myGyhbf ogbGVmdDsg caYnkNzdSHlcKRuvV516HN RvcDsnPkJpcnRoIERhdGU6 MI72LB42yOMlr5W0ySD8O2 BhZGRpbmct midehKO6GDJxNBQyqU53Qp 9vuDpmUm7qCDPmVJX5ZBVp sHEkQ0GawB4qHyUcALElDP EbB0LrsVRk LVweW507LLbnMaF6HOOkio HyM4XdXUBkrDlcCbU5m9T3 Bx2FK9Y5TA80WU00cSNpe6 O9xDQ4N3Th SAPxfawcaqgarMB4UBZqSD CpqP96Ke1bpWqdQf9bXXLz CRD6TIOylPNmB8WfvL9aHz AjMDAwMDAw Q2RlmQKqRFqwW692WJudIb C1HRWvanPsQ7NuHEQtiSag JdL3v0M3Bk5HGBu7ND63CM 37bBOpl1E0 uVX5F5QhOEYlzdfukgwapX R1BCHxWSZvbF98Ul5yuMzv Mc8kGYYmOAX5WKQgySTsP5 BjuW5pFrWs AXIeJKDhL1IbsYYeJYhcD3 18SRcfIxL7QUFcwmWgV4Qt HAPvzRzuCfU0h3U2So0BKW IcUI22VPK1 mQB0TN51NR50D6PpKmkraL FibGU+PHRhYmxlIHdpZHRo EDbhGJIpExAeyNrxZN8lZb 9yZGVyLWNv hNmcmNMmBcHfb0jeUOXaFU pbVZ5miOiwL0GgjIC3CMOu n6o3Xe01P14yF0CjbYV+PG NxjHF8uTI5 wU4yQhAiLzF7MLsqX758Or JtzJZpEvxzn4gla9xuoAu2 KnN3PCXlzvRimIarIRV1a1 JaVk23J63m IHdpZHRoPSIxNSUiIHZhbG bjvh5dcS7sMt2+PGNvbCB3 yFY0yE8sNePtSeU0BLmqW2 49InRvcCIv Aigif5ers0zaaZn6DgJzYN MyzrRgyHwdUZA0m1EvVa33 Q7WuzEkmk2AfNkc7gp95rX Whn6Y2qYU1 S9TvKGWgwdirsHAleJeeUJ 3mDGKqznjiXMDhtP7oVVHa V5l2JvGnBoZ6IUprV6Rbwv A4VEGreFYm KXpmVGQ3R04lz1H9YBPhXL HiQUP7hUH8kN7yrZmrcahn bGVmdDsgdmVydGljYWwtYW yoU732HNIw bGszSVGzgA9pZYVeoYTuqZ akEO4hYNQibvghZq9BUF2q LNiNICsZRuc2G8XnAjh8ZA UccJswXQ7i hBSiDIglUp4dxPzsbVzvAP 6jPWKdqratHBShlE6wJKMe aYNzcKaiHD4vDNStiglyj2 00GuYvTNN5 FSSejBNcC0GwhP2zLxCzDW AzQJHuD4QjdSPnRLlqM379 RSjwJqP6MDHacvQdX0PvEU FsaWduOiB0 g8P8Wd7tJe6nZs1bKCGkFL 98WR12qUXeo8H0sLW4Y2Hp WTQrxdgzkoswvQS3GNFoHN NjrD35vLBz NZepPz3zy7B4a141PXKjML ZloV35Ak3kwRdjNITbbHZK uW6jwtxpp2jjvxffSyEySY FsTIv2WWm0 KASdhZfuQkDwRFC7JpR0RQ B9gNCezL0lfYvfbbxexY5z Oyc+AGjkDRYoihH3I3KdVc i3IWIegCve UK6ewAOdYJiwYq3nfEqyxD yiUT5hFQEfajgzMTHatE5o FIBqcWYclFhsLX2bUJHawp ohx500VsIn DUP4ZVEbdEZkI0WvwE7qQr NgDCJfMARuI7NvoPYfTDdu H243MWxsIpN1WXVxzzKfU5 FsLWFsaWdu VcP4n2S4Xc9HDNjuIA60FC 53dOSfj2E2pXK4Y2BrTARf ckxxdqmbaZD1ULLiEAHfsO 47cGFkZGlu Fm2lq2I4l893FKIsTSFyqA 52Od4cnYblQJVkzOHHcF6g ftfyr7btbabqTrIxSLPpBQ q7SJs2QCAh uTdsDlTdQLK8ZbB7FHJ9vB ZyhK1wxKjveaecgG5qHkq+ E0W0fZY3iWRblMntuFB+PC 04oo16S3Zb VpxsVez9BRVuYBY5gVT2wH 9oYSDvPPvse5I0eKF8D4Qz zdWgrh3yo4cfMBRuZCgqB2 4dlTWmr4G6 ZHXzbVV5HHXgqCkeUgMgjV 93Oyc+JWZbgQbpv2OjPjkp z5rbk9nfmGc0XeFrBSSeyy FsaWduPSJ0 b3IzUn27Y81jJDahVCMqDF ZhYTHnMLAeoAlqsj6nsD6y Ii8+YJLjuLV6yNC6cU8tSt MzGqO3LCvt C558UcVrjJTuSfgmh9joi7 ipzAb7HiLuKTKxrpAdrDxr SIN4l7CkEy80B9TviHcfw9 FiPxw9ir88 fFAch8L5uFE1R5ScDLIwsz opdKBtqCsvAN5oFNGhixfm KNNauC9jQBZkF7p2JuCnQp W9BTiiF8Og ewH1NDWqeYUhUVRgkVYHiO 2cnqzvs3vyejwnSrBrPIWr GEs8HRb5DAAzjLseEmYdSQ K1UaZ3ISG0 qUKjmG5axGmfrfcrsA8rPk c+NSq8q6kutAOlYY1pqDC6 DE49CR26eCFlx8J9qRL3O1 BhZGRpbmct ulwmhPZ1SQEvMLYlvW56Wz 5ybEkzTy8hETLbOWE7HYOx vYFnB2RjwP0dXcGrDMLkEU JkG6LkgXTx DFibA791LIvpBoV1GMMwoe RhI1HuXMYcfElaUeQ6i9I5 Bd6HFI87ND13TI40rGRwa4 O1nAF1Y1Dc QXWtiiwzeahvtRN3XBVhWT XzzT90Bp4ktCkmOw4oDOEv VZJ3FXLzvCKfH4UikK3nIb AjMDAwMDAw L8OhkODoGYwmE103CCvuQi A8LWFwwwQlG9RdUJZulLct UwX7m4Y2Dx6NIt27IR43CZ 82uMTnu8Z7 dGU5P6RvWKXmswfeaikpoY X1VEUrDXGsrC98In7oeUge Om7jGFPaAWE3QGYalQLhT7 XawX6hLoMd WPPgDRJlN1DwwIYrZPtaM3 87XKmhLvZ7LOWfupDzR0Xn MSDaoHjnUjU1l1W3Fe1CUF dwdmv9Y2Hh PjwvdHI+KM02DAWuHT65zH VjkNEjz6iqfHj9LlJlTRLu RNW0xKrjDHvxc8KoEPVnM8 9rnOKsd7O8 IGNv (more content not included)... Normal [facility] Consent for Treatmenton 10 Consent for Treatment [id number]#1.0 0CD:[address] [facility] IntraOperative Documentson 1 IntraOperative Documents [id number]#1.0 0CD:[address] [facility] Main OR Intraoperative Recor don 04-01-2021 Main OR Intraoperative Record IntraOp Document Type FTURO Summary Primary Physician: Lino Ansari Jr., MD Finalized Date/Time: 04/01/21 14:49:37 Pt. Name: RIC SANCHEZ/Sex: 1960 Male Med Rec #: [id number] Physician: Lino Ansari Jr., MD Financial #: [id number] Pt. Type: O Room/Bed: / Admit/Disch: 04/01/21 14:14:58 - Institution: Case Times FTURO Entry 1 Patient Times In Room 04/01/21 14:35:00 Out Room 04/01/21 14:48:00 Procedure Times Start 04/01/21 14:41:00 Stop 04/01/21 14:44:00 Anesthesia Times Last Modified By: Stew BAUM, Rissa Lawson 04/01/21 14:48:36 Case Attendance FTURO Entry 1 Entry 2 Entry 3 Case Attendee Elan Peterson MD, Lino Mathias RN, Rissa Bullock [facility], Светлана Philip Role Performed Surgeon - Primary Citrix Systems Administrator - Primary Scrub - Primary Time In [...] Mathias RN 04/01/21 14:[address] [facility] Main OR Intraoperative Record IntraOp Document Type FT Summary Primary Physician: Lino Ansari Jr., MD Finalized Date/Time: 04/01/21 10:59:15 Pt. Name: RIC SANCHEZ/Sex: 1960 Male Med Rec #: [id number] Physician: Lino Ansari Jr., MD Financial #: [id number] Pt. Type: A Room/Bed: [facility] Admit/Disch: 03/25/21 11:46:55 - 03/25/21 18:05:00 Institution: Case Times FT Entry 1 Patient Times In Room 03/25/21 14:43:00 Out Room 03/25/21 15:43:00 Procedure Times Start 03/25/21 14:58:00 Stop 03/25/21 15:34:00 Anesthesia Times Start 03/25/21 14:43:00 Stop 03/25/21 15:43:00 Last Modified By: Fred NOLASCO, Marci Newton 04/01/21 10:59:13 General Comments: 03/29/21 Chart opened to review and send charges Mc MARSHALL Case Attendance FT Entry 1 Entry 2 Entry 3 Case Attendee Abe PERKINS, Asuncion Ansari Jr., MD, Lino Pettit CST, Anjana Palacios Role Performed Anesthesiologist Surgeon - Primary Scrub - Primary Optical Instrument Repairer Time In 03/25/21 14:43:00 03/25/21 14:43:00 03/25/21 14:43:00 Time Out 03/25/21 15:41:00 03/25/21 15:43:00 03/25/21 15:43:00 Procedure CYSTOSCOPY RETROGRADE CYSTOSCOPY RETROGRADE CYSTOSCOPY RETROGRADE STENT INSERTION(Left), STENT INSERTION(Left), STENT INSERTION(Left), CYSTOSCOPY W/ HOMIUM CYSTOSCOPY W/ HOMIUM CYSTOSCOPY W/ HOMIUM LASER(Left) LASER(Left) LASER(Left) Comments Dr. Chan supervising Last Modified By: Zack RN, Julio Corbett RN, Nadia Anderson RN, I 03/26/21 15:27:43 03/25/21 15:52:59 03/25/21 15:52:59 Entry 4 Entry 5 Entry 6 Case Attendee Aric BAUM, Nadia Dixon RN, Alba Ibarra Role Performed [employer] Systems Administrator - Primary Recreation Counselor Quality Assurance Engineer Time In 03/25/21 14:43:00 03/25/21 14:43:00 03/25/21 14:53:00 Time Out 03/25/21 15:43:00 03/25/21 15:43:00 03/25/21 15:43:00 Procedure CYSTOSCOPY RETROGRADE CYSTOSCOPY RETROGRADE CYSTOSCOPY RETROGRADE STENT INSERTION(Left), STENT INSERTION(Left), STENT INSERTION(Left), CYSTOSCOPY W/ HOMIUM CYSTOSCOPY W/ HOMIUM CYSTOSCOPY W/ HOMIUM LASER(Left) LASER(Left) LASER(Left) Comments Student : Christa Michael present during procedure Last Modified By: Aric BAUM, Nadia Corbett RN, Nadia Anderson RN, I 03/25/21 15:52:59 03/25/21 15:52:59 03/25/21 [...] Applicable) PreOp Antibiotic Yes Time Out Abe CAA, Asuncion C, Given Participants Elan Peterson MD, Wilver Toth CST, Aric Wan RN, Zack Powell RN, Julio L Time Out Complete 03/25/21 [...] No Primary Surgeon Elan Peterson MD, Lino Samayoa Jr., MD Start 03/25/21 14:58:00 03/25/21 14:58:00 Stop 03/25/21 [...] (more content not included)... Normal [facility] Main OR Preoperative Recordo n 04-01-2021 Main OR Preoperative Record Holding Area Document Type FTURO Summary Primary Physician: Lino Ansari Jr., MD Finalized Date/Time: 04/01/21 14:40:21 Pt. Name: LAURARIC/Sex: 1960 Male Med Rec #: [id number] Physician: Lino Ansari Jr., MD Financial #: [id number] Pt. Type: O Room/Bed: / Admit/Disch: 04/01/21 [...] Mathias RN 04/01/21 14:[address] [facility] Operative Reporton Operative Report Patient: MARTÍNEZ SANCHEZ [...] was subsequently discharged home. Normal [facility] Comment on above: Result Comment: Elec tronically Signed By: Lino Ansari Jr., MD\.br\Date and Time Signed: 04/01/21 14:48 EDT Calculus Analysison 03-31-20 Calcium oxalate dihydrate Infrared spectroscopy (Stone) [Mass fraction] 20 % Invalid Interpretation Code [facility] Comment on above: Performed By: #### 1 [id number] ####[facility] [address] [place] [address] Calcium oxalate monohydrate (Stone) [Mass fraction] 80 % Invalid Interpretation Code [facility] Comment on above: Performed By: #### 1 [id number] ####[facility] [address] [place] [address] Color (Stone) Brown Invalid Interpretation Code [facility] Comment on above: Performed By: #### 1 [id number] ####[address] [place] [address] Composition Comment Invalid Interpretation Code [facility] Comment on above: Result Comment: Perc entage (Represents the % composition) Performed By: #### 1 [id number] ####[address] [address] Disclaimer: Comment Invalid Interpretation Code [facility] Comment on above: Result Comment: This test was developed and its performance characteristics determined by [facility]. It has not been cleared or approved by the Food and Drug Administration. Performed at: [facility] Stone Analysis [address] [place] [address] [place], [place] [id number] MD Maria Elena Trotter Performed By: #### 1 [id number] ####[facility] [address] [place] [address] Laboratory comment Gordo (Report) Comment Invalid Interpretation Code [facility] Comment on above: Result Comment: Phys ician questions regarding Calculi Analysis contact [facility] at: [phone]. Performed By: #### 1 [id number] ####[address] [place] [address] Please Note: Comment Invalid Interpretation Code [facility] Comment on above: Result Comment: Calc kat report will follow via computer, mail or surgical elastic knitter delivery. Performed By: #### 1 [id number] ####[facility] [address] [place] [address] Size (Stone) [Entitic vol] 2x3 Invalid Interpretation Code [facility] Comment on above: Result Comment: Mult iple pieces received. Dimensions of the largest piece reported. Performed By: #### 1 [id number] ####[facility] [address] [place] [address] Specimen source subject Nom Comment Invalid Interpretation Code [facility] Comment on above: Result Comment: Not provided Performed By: #### 1 [id number] ####[facility] [address] [place] [address] Stone Photo Comment Invalid Interpretation Code [facility] Comment on above: Result Comment: Phot ograph will follow under a separate cover Performed By: #### 1 [id number] ####[facility] [address] [place] [address] Weight (Stone) 14 mg Invalid Interpretation Code [facility] Comment on above: Performed By: #### 1 [id number] ####[facility] [address] [place] [address] Formson 03-31-2021 Forms [id number]#1.0 0CD:[address] [facility] H&P Updateon 03-31-2021 H&P Update [id number]#1.00 CD:[address] [facility] Coding Summary.on 03-30-2021 Coding Summary. CD:[id number] Gh 0bWw+PGhlYWQ+IT7EOXEtV 60rcZXgzO0SZ0cXAG8PVOW KHBDMDR4ZXA3reMV5OCyaM 2VybiAv FqfoeUNyRO69KIx5LYZ4eQ mpFHkynH2lsEWuD3y2LiJb WJ44gO76BCgjDEWvOuH8Uu ZpbjsgbWFy P4vqAnFisWFhTxz+PHRhYm xlIHdpZHRoPScxMDAlJyBz mXuuVS3lPw1wSQBrKHLhcC xhcHNlOiBj u0keERIbQAmpOY9qzRenM8 PmeJB4BHTrm7a3Lr62tAJ+ EDFzQWB0sZboCNzwd280Xc Flt4lmQVB0 tRZyEMhcTDT0N46aq6O3AP BcBZFdKMP8cHQ2cR0ydDsi owsrC1HxiACuOxP2HMZ7pY OubK5hxHiz faeupA1vFzf+L80QZS6JKC BKTT2QFpz5Y4GfPaknhUI+ KA21OHUyDL19aQNigJEds7 nzlJg9PbKa EJTnOAG6ePnrSWyqa9FbQL JaP39fcDJbg0N3CFBoiCfz uWIeVeLhrNJ7bN9wEPmybt kig1ratqle Sekfs7fpez50vL86Z03tXS woVCIgWSJ6STOrMFBkqNfv vk4hrM9rTm0+CVqby4cid2 gtwAx7YcMt KACsdoQxmJpgLSY3c0HoTu 30C0PcaEunj3GaJjs6nq40 wENbk7N2jQL4BGncGQZuuB 5fRHgdQkX6 UPHxXkAxfF71tFOgRTehYk 0bpPibtFruEQ4bNLTsnoox MZCoaU8mHBEpkOXevVpyQJ 4wNTBpbjtm h709VkLkRXF7VAWljCFyH7 IkyO1eLmFqCOWoTYUwF7Mi eOErPYyeR573HEjeDjA0RE EcpxTgG8Ul BXNovDzmEiU1x3I3Lf9Se9 TdryfmHGJ9CQciAVAsVgW2 PvVnWuD8F1NfJgp0IECjyT npUH8kM4Uh YNVzmtauervvqQM4QPYbRA PatU29oLFtPAniFz5bo4N7 c029LPYcUVDacN72Tn3ntD ogMTBwdCBU rZ9dtdmqa7rppjwjPcUgRP NsNEi3LGr3PAHfgYxrMjRs DAG2QhP1VWV8dSYayS2twP trwexygT2s Oyc+X99znV8hGWK8GRW0ou gyDHYjxpVcIH63TB53L0Zl PjwvdGFibGU+PGRpdiBzdH agRB4uViJh c1wxq6CrULylS1XcXSZyEH goUeu9GPUcZHV7qDS9rK7o YFGfJPzzr6Q4fUL7O3Ffmt Dbvr5rz0zr JDQjQTmxW16loIRrm0V5TU SyzAX6CATvgPpmIkUyvM85 Oyc+GFXcvAlon3VxHlsrz3 nnb3oidDk0 NvNjHQHeagYheHqrFDZ5i2 FcJh92J16fYGxvNZAaAZYf DCDhLLAbzUmafs8ktI8yDx 8+PGNvbCB3 hPO6kA0aRPGhNtH4GVheO3 55EvJnuMOjIaonw2deu5ed xPl4MlTvLBVvklLrlDfbAP D5i7GhAi89 W51bDTuqHSZrPOIbZECcDA GufNxtuc8jkY4fCs3+PC9j m2fitf32uO24zIJ+PHRkIH V5wJcmGLfl PAIjrR6iHMlnAzT4XJBqYk LlgJ67uFIqVVxaCv0aiJqk oUtgLV1oQXLhdxngh113Fh Eam8mxAYOy rQBkEUfjOGK9I04ga6J0CG OvLOTiOAL0gPY2sS5hzRli bjogbGVmdDsgdmVydGljYW hfCDzlI643 IHRvcDsnPlBhdGllbnQgTm IfDTz3C8EgHnj0WHEhjDba RY7qjTTpKDkwRl0vcGnmjF jhVD3cFRQo hrlwl952YxAiy1lxYOWkgA DjXMhsVFG0B75mk4N7SDAx EPTaZBG9lOH5nL2cmLrdxy ogbGVmdDsg wqMtiVebBXvsMQclV283NU RvcDsnPkJpcnRoIERhdGU6 PP34JO52yBElp9T6uGA2I5 BhZGRpbmct zeujxZC2YKZzEMNdbI68Zm 1qbDojZy7wOPCjLXU9USYu eNFhZ5OyyY3aFqVkLUGjZM BcP6PyyKPl LVvzE932MZaqFoT2MKRvbl EdE3YlQAHjxGxgRmM2u5P4 Wi7RZ9O8IQ04NM58aTLtg8 I2iIK4L0Sw ANJordoewvagsZX9PMTeUR QseV82Uo9yfXgiLy5aSMHw RSK5OGVkeKAjM8NfnM2jTb AjMDAwMDAw T8UfzTOxLJpuK118XTapIu J4MJItekBoW7YtZCHitHcd RhX2k3R9Jd9ASXc1JX68GS 42tBVga9S3 mBA2R5XiCSZhfkifesjhaQ Y7BYPyUIKqaH89Wo5vaJbs Sp8fUAMvCFL3CXXsfJOxU6 TbyY0iOhFp YRYgOMNaC8DvwHGbWDgrB6 67CVeoLrS3CSJybcFkF0Fy ZEDkxDouCaM6s2N2Jv3XYP SuGZ90MCQ9 cKY0DX56TO90X9UqXnmzuW FibGU+PHRhYmxlIHdpZHRo GCryJRMoJvBhoCffHZ4eRa 9yZGVyLWNv nDenkBSsMvFxj8lmFAMyMZ ejUH0snPjfP8DqoDY8SZFg f5w1Vp69F18cA3YbeVN+PG CzsOF4nIV0 bF1iKlVrDxP6QPmtX565Mu OieONlFevmv9dyg4fyuCt5 YxZ6NJNebkQepRwpHLG6a2 KnBl17T18q IHdpZHRoPSIxNSUiIHZhbG swoi1feJ7jPy9+PGNvbCB3 zTK7kT4kSiXkAvG9FGktY0 49InRvcCIv Cbafg5zpx9vgcQc7XrJkOY UmdeSdrJwjYOC0r3OuUa36 U4FxcGjnm2EfWzx4ld30iP Lpn5X2zJB9 J2DnKHOnsrfvjOJdeCdyAL 2rBEVzjinwLQDfqT9oRITm N3a4QjDeHgM8CAdtO2Jsdl F7JTDseZFq LEmvVTY2P17jb7E4GRKiZC YeELK9fZS8zZ9lySgefzrv bGVmdDsgdmVydGljYWwtYW deI842DHVf zEyhMUXoiJ5pTZTsyEOqmQ qjZF1aJZVimlamUq7DGF1r PBlFLXeNMtc5V4OcJbj9KW JxhXspVB2u cSMaVCmaDr1cuOkboJoxLW 7hOTNrlgenVHZiqR5xXVTp bRIllBpeXG1mILQditdim4 30VxMjGNG9 DLYomHDkB2NkzD5tAjYwKO VhPCOvX0UfjISwRNqbW118 AYsjYyE6QWIxjmJyS1EjYB FsaWduOiB0 f9M5Ho9tOn7hBw0uVXEeNN 50KH44aWBpc2F6gHN0E8Nj STPbzhyxasapxQQ6FEBoIQ OgpH93oNWb XRvkCd8mb4T1z240XAFyYR ZljE73Jb2duRhaGYEopSPO yW8xeaufk7gzxpfgKdDfCZ ImUPg4CHm0 EWWqkPxaRwHeIVC5AwF2ZP J2lYXukU6qvHhytugenD4o Oyc+FBhgIBNfbyA1Z3QkUa t0HJJqpOuo TG7ktVZoQDfoHr4upGslxC irUU9lIZVnjjucZKNrxL6m JWGknCIzuMkgNN3rORSjoc xym604LwCu IBQ4EXDtaBVrB6FxhW1bLh KkBLMaSWVuG9JcoEIhNYha Z726RIuxDkU4WDUblzPrA0 FsLWFsaWdu LmS7k4J0Zk9PANnqMY95IC 73eZHqq3L8fRP6G9AoVBXb xozqijstePL3HJXwCGEtxI 47cGFkZGlu Jf0fa7K7h750GLMqOJEpjU 73Ja6pnXgcVYHxjFHBsB6j eaieq4pcyimeJfZfRDQlEA h3AYp7GPIc gCstQjAxZDL4IcK0XXS7dD VdoC9tfPhxftmlnO2mGvy+ OP7cpHjwzS6hzC7YKC7eWI RheSBTdXJn OBA2HX09VZ94I8QgBwcwtV FibGU+PHRhYmxlIHdpZHRo NZjwRRBxZyPulHfxED1iYd 9yZGVyLWNv gBxajXZnJgLzo4kuUQDdMR hlAD7uhRjvE7HwpQL5YDBx b9p2Zq67H98gM0MqvNG+PG NjsRZ8uJU9 dM9gWeIjTnB4RJbmE016Pu XncDEjYiuyn1jzq2vdfXj6 VnQaFCYcfcDtwHftUHS1b7 KdHg35H62t IHdpZHRoPSIyMCUiIHZhbG jgyj8iaP9aYi4+PGNvbCB3 cKA5nD2oDlFdKmX6CKweM5 49InRvcCIv EyiaY31nT6KtgKU+PHRyPj f9WKDavDmoWI2pkTKkUBtx Aa4eAKO4CxHeJnTnELcxI7 BhZGRpbmct jtpdgMA7EPKfZQAgdY53Bu 6joHpyAa4lDJIxIZA2FUPm rNYnR4NohQ4xRxCkBQLpVU QzO5SouHEl PZxsV454TZpmZpL6BFKvht JkU3DjJHKmlVokIzU0s9J5 Pq4JpPzdaSIsBT5aHjFiEY e9J3GsYjj2 JBXqbFbyEA3rjNAuAShrZn 9ouMeitLfwAL5eYGKficnd q106PcPxg1qrRHGcaCUoZF ozWKP7M38z m9S0VEJjQFXrFEI4jYV5lP 1hbGlnbjogbGVmdDsgdmVy iWkuBNnuQKkiI628KKFquW snPkZJTjo8 W6GvJqd4ERThoPtuWC3pkL GiZPmkAc6wqEathQulAI0b LHUbsjayo413WtSye0owIQ EwcHQgVGlt AKD6G48qy3N0BQXjIDMnUN C0bUC6uJ4slPrlgjjbvFDn dDsgdmVydGljYWwtYWxpZ2 46IHRvcDsn Tj0VWaz5T5BcJue2ZDDbeX yfCU1auQOsILphTw8dpQhp aEewAF3vEHGfxdrmy255Ys Nmd4pmVTKk fPAoWWitOFL7C74rh7Z9QA SdSYIwIVK5zZN8nA0gjShj bjogbGVmdDsgdmVydGljYW tpIOinU318 IHRvcDsnPlBheWVyOjwvdG Q+VX43nj70U7CnRpzyWle0 TKCmVKH3iEH3rI6xGEDqZU yco1Y3kMS7 J2Jv (more content not included)... Normal [facility] Postoperative Documentson Postoperative Documents [id number]#1. 00CD:[address] [facility] Pre-Certification Formon Pre-Certification Form [id number]#1.0 0CD:127 [facility] Progress Note-Physicianon Progress Note-Physician Patient: RIC SANCHEZ Age: 60 years Sex: Male : 1960 Associated Diagnoses: None Author: Deniz Chan MD Postoperative Information Post Operative Note: Post Anesthesia Care Unit. Anesthetic utilized: General. Health Status Allergies: Allergic Reactions (All) Severity Not Documented Baclofen- Unknown. Celecoxib- Unknown. Iodine- Unknown. Problem list: All Problems Anxiety / SNOMED CT 27267432 / Confirmed Physical Examination Intake and Output adequate hydration Measurements from flowsheet : Measurements 03/25/2021 12:34 EDT Height/Length Measured 177.0 cm Weight Measured 85.5 kg 03/25/2021 12:25 EDT Height/Length Measured 177.0 cm (Modified) Weight Dosing 85.5 kg [place] Body Weight Calculated 72.276 kg (Modified) BSA Measured 2.05 m2 Body Mass Index Measured 27.29 kg/m2 Weight Measured 85.5 kg 03/24/2021 8:35 EDT Height/Length Dosing 178.0 cm Weight Dosing 84.0 kg 03/24/2021 8:35 EDT Height/Length Measured Date\Time Correction Height/Length Dosing 177.8 cm [place] Body Weight Calculated Date\Time Correction Pain assessment: [...] anesthesia care. Condition stable. Normal [facility] Comment on above: Result Comment: Elec tronically Signed By: Dustin PARDO, Deniz\.br\Date and Time Signed: 03/29/21 16:40 EDT Consent for Anesthesiaon Consent for Anesthesia [id number]#1.0 0CD:[address] [facility] Consent for Procedure/Surger yon 03-26-2021 Consent for Procedure/Surgery [id number]#1.0 0CD:[address] [facility] Discharge Instructionson Discharge Instructions [id number]#1.0 0CD:[address] [facility] IntraOperative Documentson 1 IntraOperative Documents [id number]#1.0 0CD:[address] [facility] IntraOperative Documents [id number]#1.0 0CD:[address] [facility] Preoperative Documentson Preoperative Documents [id number]#1.0 0CD:[address] [facility] Capillary Glucose POCon 03-12 Glucose [Mass/Vol] 134 mg/dL High 55-[address] [facility] Comment on above: Performed By: #### 2 [id number] ####[facility] [address] [place] [address] Consent for Treatmenton 03-12 Consent for Treatment [id number]#1.0 0CD:[address] [facility] ECG 12-Leadon 03-25-2021 ECG 12-Lead [id number]#1.0 0CD:[address] [facility] Immunization Recordson 03-25 Immunization Records [id number]#1.0 0CD:[address] [facility] Inpatient Patient Summaryon 03-25-2021 Inpatient Patient Summary [address] [address] [facility] Clinical Discharge Instructions PERSON INFORMATION Name: RIC SANCHEZ PHYSICIANS Admitting Physician: Elan Peterson MD, Lino Goodson Attending Physician: Lino Ansari Jr., MD PCP: CHRISTOPHER PEARCE DO Discharge Diagnosis: Hydronephrosis with renal and ureteral calculus obstruction Comment: PATIENT EDUCATION INFORMATION Instructions: Vdoi-Avqv-qi Utereroscopy,Lithotrip sy, Stone Extraction, Stent Placement (Custom); Cystoscopy; Post Op Patient Instructions - FT (Custom) (Custom) Medication Leaflets: Follow up: With: Address: When: Lino [facility], [address], [place] [address] Business (1) Within 1 week Comments: My office will schedule cystoscopy with stent extraction. MEDICATION LIST New Medications [id number], [address], [place] [id number], [phone] acetaminophen-oxycodon e (Percocet 5 mg-325 mg oral [...] Mouth every day. Comment: Normal [facility] Main OR PACU I Recordon 03-12 Main OR PACU I Record PACU Phase I Document Type FT Summary Primary Physician: Lino Ansari Jr., MD Finalized Date/Time: 03/25/21 18:09:07 Pt. Name: RIC SANCHEZ/Sex: 1960 Male Med Rec #: [id number] Physician: Lino Ansari Jr., MD Financial #: [id number] Pt. Type: A Room/Bed: [facility] Admit/Disch: 03/25/21 11:46:55 - Institution: Case [...] Yeh RN 03/25/21 18:[address] [facility] Main OR PACU II Recordon Main OR PACU II Record PACU Phase II Document Type FT Summary Primary Physician: Lino Ansari Jr., MD Finalized Date/Time: 03/25/21 18:08:49 Pt. Name: RIC SANCHEZ /Sex: 1960 Male Med Rec #: [id number] Physician: Lino Ansari Jr., MD Financial #: [id number] Pt. Type: A Room/Bed: Admit/Disch: 03/25/21 11:46:55 [...] Blankenship RN 03/25/21 18:[address] [facility] Main OR Preoperative Recordo n 03-25-2021 Main OR Preoperative Record PreOp Document Type FT Summary Primary Physician: Lino Ansari Jr., MD Finalized Date/Time: 03/25/21 15:55:27 Pt. Name: RIC SANCHEZ /Sex: 1960 Male Med Rec #: [id number] Physician: Lino Ansari Jr., MD Financial #: [id number] Pt. Type: A Room/Bed: Admit/Disch: 03/25/21 11:46:55 [...] RN, I 03/25/21 15:[address] [facility] Monitor Recordon 03-25-2021 Monitor Record [id number]. 00CD:[address] [facility] Operative Reporton Operative Report Patient: MARTÍNEZ SANCHEZ Age: 60 years Sex: Male : 1960 Associated Diagnoses: None Author: Lino Ansari Jr., MD Postoperative Information Procedure: Hydronephrosis with left ureteral calculus Date/ Time: 03/25/2021 15:42:00 Preoperative Diagnosis: Hydronephrosis with renal and ureteral calculus obstruction (INJ54-GD N13.2, Discharge, Medical). Postoperative Diagnosis: Hydronephrosis with renal and ureteral calculus obstruction (RUX34-OT N13.2, Discharge, Medical). Performed by: Lino Ansari [...] the lab for chemical analysis. A 6 [place] double-J ureteral stent was then placed over [...] FACS. Specimens Removed: Ureteral calculi. Prosthesis: 6 [place] double-J ureteral stent. . Estimated Blood Loss: 0 ml. Complications: None. Anesthesia type: General. Normal [facility] Comment on above: Result Comment: Elec tronically Signed By: Lino Ansari Jr., MD\.br\Date and Time Signed: 03/25/21 15:50 EDT Outpatient Surgery Discharge Instructionon 03-25-2021 Outpatient Surgery Discharge Instruction [place] [id number] Patient Discharge Instructions PERSON INFORMATION Name: RIC [...] Follow up: With: Address: When: Lino Ansari [facility], [address], [place] [address] Business (1) Within 1 week Comments: My office will schedule cystoscopy with stent extraction. Pharmacy Information: [facility] [place] You may receive a survey from [employer] asking you to rate your care experience. Your feedback is important and will help us understand what we do well and how we can improve the quality of care we provide to you, your loved ones and our community. It?s an honor to serve you. Thank you for choosing [facility] HERE ARE THE MEDICATION CHANGES THAT OCCURRED DURING YOUR HOSPITAL STAY New Medications [id number], [address], [place] [id number], [phone] acetaminophen-oxycodon e (Percocet 5 mg-325 mg oral [...] day. PATIENT EDUCATION INFORMATION Instructions: [facility] [place], [place] Post-operative Instructions for Stent Placement There [...] other reasons. 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 Normal [facility] Patient Education - Texton 1 [...] including vitamins, herbs, eye drops, creams, and bbxy-hvl-wazboyi medicines. ? Any problems you or family [...] tells you to take them. ? Taking czcq-ovk-ydxaplh medicines, vitamins, herbs, and supplements. ? Follow [...] these instructions at home: Medicines ? Take pmxq-rlr-pnrfdjh and prescription medicines only as told by [...] (more content not included)... Normal [facility] Progress Note-Physicianon Progress Note-Physician Patient: RIC SANCHEZ [...] selected or recorded. Procedure history: Hip replacement ([id number]). Social History Social & Psychosocial Habits Tobacco [...] review: No qualifying data available . Plan [place] [employer] Anesthesiologists (ASA) physical status classification: [...] allergic reactions, and .. Normal [facility] Comment on above: Result Comment: Elec tronically Signed By: Dustin PARDO, Wan.br\Date and Time Signed: 03/25/21 15:05 EDT XR [...] MD, V. Transcribed by: LOUIS Technologist: HARRIET [facility] XR Urography Retrograde Left on 03-25-2021 XR Urography Retrograde Left Exam Date/Time: 03/25/2021 15:43 EDT Reason for Exam: Kidney stone Report IMPRESSION: LEFT URETERAL STENT PLACEMENT. CLINICAL HISTORY: Kidney stone COMPARISON: 03/25/2021 12:28 PM. FINDINGS: 3 digital spot images of the abdomen were obtained in surgery. Initial flight attendant image shows a tiny left renal calculus [...] in mGy = 465.[address] [facility] Consent for Treatmenton 03-12 Consent for Treatment [id number] 0CD:[address] [facility] Outside Recordson 03-24-2021 Outside Records [id number]. 00CD:[address] [facility] Physician Orderon 03-24-2021 Physician Order [id number] 0CD:[address] [facility] RAD - MISCon 03-24-2021 RAD MIS [id number] 0CD:[address] [facility] XR Chest 2 Viewson XR Chest 2 [...] Kidd MD Transcribed by: LOUIS Technologist: MAJO [facility] Anesthesia Recordon 12-31-19 Anesthesia Record Patient: MARTÍNEZ SANCHEZ MRN: [id number] Age: 60 years Sex: Male : 1960 Associated Diagnoses: None Author: Frankie PARDO, Sergo Jewell Procedure Time Out Morton Protocol: patient identity verified, site verified, side [...] Diagnosis: m16.12 Postoperative Diagnosis: m16.12 . Normal [facility] OR Nursingon 12-30-2020 OR Nursing Normal [facility] PACU I Nursingon 12-30-2020 PACU I Nursing CO NA PACU I Nursing Record Summary Primary Physician: Quentin Ramirez MD Finalized Date/Time: 12/30/20 12:49:47 Pt. Name: RIC SANCHEZ/Sex: 1960 Male Med Rec #: [id number] Physician: Financial #: [id number] Pt. Type: A Room/Bed: / Admit/Disch: 12/30/20 07:04:00 - Institution: [place] NA OR Main PACU I Case Times [...] By: Mendoza Soto RN 12/30/20 12:49 Normal [facility] PreOp Nursingon 12-30-2020 PreOp Nursing [place] NA PreOp Nursing Record Summary Primary Physician: Quentin Ramirez MD Finalized Date/Time: 12/30/20 09:42:21 Pt. Name: RIC SANCHEZ /Sex: 1960 Male Med Rec #: [id number] Physician: Financial #: [id number] Pt. Type: A Room/Bed: / Admit/Disch: 12/30/20 [...] By: Fernando Zimmerman RN 12/30/20 09:42 Normal [facility] XR Pelvis 1-2 Viewson 2020 XR Pelvis 1 or 2 Views EXAM: XR Pelvis 1-2 Views HISTORY: Postoperative COMPARISON: None. TECHNIQUE: AP radiograph of the pelvis. FINDINGS: There is a left total hip arthroplasty with surrounding postprocedural change. Hardware is intact. Alignment is within expected limits. Partially evaluated right hip is unremarkable. IMPRESSION: Left total hip arthroplasty, as above. [place] thanks you for the opportunity to care for your patient. Workstation ID: [id number] FINAL REPORT Dictated By: Latonya Hampton MD 12/30/2020 13:05 Assigned Physician: Latonya Hampton MD Reviewed and Electronically Signed By: Latonya Hampton MD 12/30/2020 13:06 Transcribed by: CRISTINA 12/30/2020 13:05 Technologist: SARAH Normal [facility] Comment on above: Order Comment: Posto perative, s/p JENIFFER Basic metabolic 2000 panelon 12-16-2020 Calcium [Mass/Vol] 9.6 mg/dL Normal 8.5-10.6 [facility] Chloride [Moles/Vol] 103 mmol/L Normal 98-[address] [facility] CO2 [Moles/Vol] 25 mmol/L Normal 21-32 [facility] Creatinine [Mass/Vol] 0.81 mg/dL Normal 0.70-1.30 [facility] Glucose [Mass/Vol] 133 mg/dL High 70-99 [facility] Potassium [Moles/Vol] 4.2 mmol/L Normal 3.5-5.1 [facility] Sodium [Moles/Vol] 139 mmol/L Normal 136-145 [facility] Urea nitrogen (BldV) [Mass/Vol] 15 mg/dL Normal 7.0-18.0 [facility] Urea nitrogen/Creatinine [Mass ratio] 19 mg/mg Normal [facility] CBC W Auto Differential pane l (Bld)on 12-16-2020 Basophils (Bld) [#/Vol] 0.0 thou/mcL Normal 0.0-0.2 [facility] Basophils/100 WBC (Bld) 0.4 % Normal 0-3 [facility] Differential cell count method Nom (Bld) AUTOMATED DIFFERENTIAL Normal [facility] Eosinophils (Bld) [#/Vol] 0.1 thou/mcL Normal 0.0-0.4 [facility] Eosinophils/100 WBC (Bld) 2.4 % Normal 0-7 [facility] Lymphocytes (Bld) [#/Vol] 2.4 thou/mcL Normal 0.7-4.5 [facility] Lymphocytes/100 WBC (Bld) 49.7 % High 14-46 [facility] Monocytes (Bld) [#/Vol] 0.4 thou/mcL Normal 0.1-1.0 [facility] Monocytes/100 WBC (Bld) 8.1 % Normal 4-13 [facility] Neutrophils (Bld) [#/Vol] 1.9 thou/mcL Normal 1.5-7.8 [facility] Neutrophils/100 WBC (Bld) 39.4 % Low 40-74 [facility] Erythrocyte distribution width (RBC) [Entitic vol] 13.4 % Normal 11.7-15.0 [facility] Hematocrit (Bld) [Volume fraction] 46.0 % Normal 34.0-50.0 [facility] Hemoglobin (Bld) [Mass/Vol] 15.7 g/dL Normal 11.5-17.0 [facility] MCH (RBC) [Entitic mass] 30.5 Picograms Normal 27.0-34.0 [facility] MCHC (RBC) [Mass/Vol] 34.1 g/dL Normal 32.0-36.0 [facility] MCV (RBC) [Entitic vol] 89.3 fL Normal 80-98 [facility] Platelet mean volume (Bld) [Entitic vol] 9.5 fL Normal 7.5-11.2 [facility] Platelets (Bld) [#/Vol] 271 thou/mcL Normal 140-415 [facility] RBC (Bld) [#/Vol] 5.15 x(10)6/mcL Normal 3.80-5.60 [facility] WBC (Bld) [#/Vol] 4.9 thou/mcL Normal 4.0-10.5 [facility] Vital Signs Date Time Vital Sign Value Performing Clinician Facility 06-26-2023 15:00-0500 Body height 175.26 cm [facility] Other [facility] Other 06-26-2023 15:00-0500 Body mass index (BMI) [Ratio] 29.86 kg/m2 [facility] Other 06-26-2023 15:00-0500 Body weight 91.72 kg [facility] Other [facility] Other 06-26-2023 15:00-0500 Diastolic blood pressure 85 mm[Hg] [facility] Other 06-26-2023 15:00-0500 Respiratory rate 12 /min [facility] Other 06-26-2023 15:00-0500 Systolic blood pressure 124 mm[Hg] [facility] Other 03-14-2023 14:00-0400 Body height 175.26 cm Christopher Ball Other [facility] Other 03-14-2023 14:00-0400 Body mass index (BMI) [Ratio] 28.73 kg/m2 Christopher Ball Other [facility] Other 03-14-2023 14:00-0400 Body weight 88.27 kg Christopher Ball Other [facility] Other 03-14-2023 14:00-0400 Diastolic blood pressure 86 mm[Hg] Christopher Ball Other [facility] Other 03-14-2023 14:00-0400 Respiratory rate 12 /min Christopher Ball Other [facility] Other 03-14-2023 14:00-0400 Systolic blood pressure 121 mm[Hg] Christopher Ball Other [facility] Other 12-21-2022 15:00-0400 Body height 175.26 cm Christopher Ball Other [facility] Other 12-21-2022 15:00-0400 Body mass index (BMI) [Ratio] 28.97 kg/m2 Christopher Ball Other [facility] Other 12-21-2022 15:00-0400 Body weight 89 kg Christopher Ball Other [facility] Other 12-21-2022 15:00-0400 Diastolic blood pressure 80 mm[Hg] Christopher Ball Other [facility] Other 12-21-2022 15:00-0400 Respiratory rate 12 /min Christopher Ball Other [facility] Other 12-21-2022 15:00-0400 Systolic blood pressure 126 mm[Hg] Christopher Ball Other [facility] Other 11-26-2022 09:00-0400 Body height 175.26 cm Kacey Vazquez Other [facility] Other 11-26-2022 09:00-0400 Body mass index (BMI) [Ratio] 28.5 kg/m2 Kacey Vazquez Other [facility] Other 11-26-2022 09:00-0400 Body temperature 97.1 [degF] Kacey Vazquez Other [facility] Other 11-26-2022 09:00-0400 Body weight 87.54 kg Kacey Vazquez Other [facility] Other 11-26-2022 09:00-0400 Diastolic blood pressure 74 mm[Hg] Kacey Vazquez Other [facility] Other 11-26-2022 09:00-0400 Respiratory rate 18 /min Kacey Vazquez Other [facility] Other 11-26-2022 09:00-0400 SaO2% (BldA) [Mass fraction] 97 % Kacey Vazquez Other [facility] Other 11-26-2022 09:00-0400 Systolic blood pressure 106 mm[Hg] Kacey Vazquez Other [facility] Other 10-10-2022 16:00-0400 Body height 175.26 cm Christopher Ball Other [facility] Other 10-10-2022 16:00-0400 Body mass index (BMI) [Ratio] 28.59 kg/m2 Christopher Ball Other [facility] Other 10-10-2022 16:00-0400 Body weight 87.82 kg Christopher Ball Other [facility] Other 10-10-2022 16:00-0400 Diastolic blood pressure 77 mm[Hg] Christopher Ball Other [facility] Other 10-10-2022 16:00-0400 SaO2% (BldA) [Mass fraction] 96 % Christopher Ball Other [facility] Other 10-10-2022 16:00-0400 Systolic blood pressure 108 mm[Hg] Christopher Ball Other [facility] Other 08-08-2022 15:45-0500 Body height 175.26 cm Christopher Ball Other [facility] Other 08-08-2022 15:45-0500 Body mass index (BMI) [Ratio] 29.12 kg/m2 Christopher Ball Other [facility] Other 08-08-2022 15:45-0500 Body weight 89.45 kg Christopher Ball Other [facility] Other 08-08-2022 15:45-0500 Diastolic blood pressure 76 mm[Hg] Christopher Ball Other [facility] Other 08-08-2022 15:45-0500 Respiratory rate 12 /min Christopher Ball Other [facility] Other 08-08-2022 15:45-0500 Systolic blood pressure 118 mm[Hg] Christopher Pearce Other [facility] Other 11-09-2021 08:53-0400 Blood Pressure Location Lino Ansari Jr. [facility] 11-09-2021 08:53-0400 Diastolic blood pressure 88 mm[Hg] Lino Ansari Jr. [facility] 11-09-2021 08:53-0400 Heart rate 81 /min Lino Ansari Jr. [facility] 11-09-2021 08:53-0400 Systolic blood pressure 113 mm[Hg] Lino Ansari Jr. [facility] Encounters Encounter Date Encounter Type Care Provider Facility Start: 08-29-2023 End: 08-29-2023 ambulatory JOHNNIE [facility]ARII [facility] Start: 08-23-2023 End: 08-24-2023 ambulatory JOHNNIE [facility] Start: 07-21-2023 End: 07-21-2023 ambulatory Christopher Pearce Other [facility] Other Start: 07-21-2023 Telephone encounter Christopher Pearce [facility] Start: 06-26-2023 End: 06-26-2023 ambulatory Christopher Pearce Other [facility] Other Start: 06-26-2023 Office outpatient vi sit 15 minutes Christopher Pearce [facility] Start: 06-14-2023 End: 06-14-2023 ambulatory Christopher Pearce Other [facility] Other Start: 06-14-2023 Telephone encounter Christopher Ball [facility] Start: 05-25-2023 End: 05-25-2023 ambulatory Christopher Ball Other [facility] Other Start: 05-25-2023 Telephone encounter Christopher Ball FP [facility] Start: 05-24-2023 End: 05-24-2023 ambulatory Christopher Ball Other [facility] Other Start: 05-24-2023 Office outpatient vi sit 15 minutes Christopher Ball [facility] Start: 04-28-2023 End: 04-28-2023 ambulatory Christopher Ball Other [facility] Other Start: 04-28-2023 Telephone encounter Christopher Ball FP [facility] Start: 03-28-2023 End: 03-28-2023 ambulatory Christopher Ball Other [facility] Other Start: 03-28-2023 Telephone encounter Christopher Ball [facility] Start: 03-22-2023 End: 03-22-2023 ambulatory Christopher Ball Other [facility] Other Start: 03-22-2023 Telephone encounter Christopher Ball [facility] Start: 03-14-2023 End: 03-14-2023 ambulatory Christopher Ball Other [facility] Other Start: 03-14-2023 Office outpatient vi sit 25 minutes Christopher Ball [facility] Start: 02-28-2023 End: 02-28-2023 ambulatory Christopher Ball Other [facility] Other Start: 02-28-2023 Telephone encounter Christopher Ball [facility] Start: 12-22-2022 End: 12-22-2022 ambulatory Christopher Ball Other [facility] Other Start: 12-22-2022 Telephone encounter Christopher Ball [facility] Start: 12-21-2022 End: 12-21-2022 ambulatory Christopher Ball Other [facility] Other Start: 12-21-2022 Office outpatient vi sit 25 minutes Christopher Ball [facility] Start: 12-05-2022 End: 12-05-2022 ambulatory Christopher Ball Other [facility] Other Start: 12-05-2022 Office outpatient vi sit 15 minutes Christopher Ball [facility] Start: 11-26-2022 End: 11-26-2022 ambulatory Kacey Taylor Other [facility] Other Start: 11-26-2022 Office outpatient vi sit 15 minutes Kacey Vazquez [facility] Start: 10-11-2022 End: 10-11-2022 ambulatory Christopher Ball Other [facility] Other Start: 10-11-2022 Telephone encounter Christopher Ball [facility] Start: 10-10-2022 End: 10-10-2022 ambulatory Christopher Ball Other [facility] Other Start: 10-10-2022 Office outpatient vi sit 25 minutes Christopher Ball [facility] Start: 09-06-2022 End: 09-06-2022 ambulatory Christopher Ball Other [facility] Other Start: 09-06-2022 Telephone encounter Christopher Ball [facility] Start: 08-26-2022 End: 08-26-2022 ambulatory Christopher Ball Other [facility] Other Start: 08-26-2022 Telephone encounter Christopher Ball [facility] Start: 2022 End: 2022 ambulatory Christopher Ball Other [facility] Other Start: 2022 Telephone encounter Christopher Ball [facility] Start: 08-19-2022 End: 08-20-[address] CHRISTOPHER PEARCE Facility:[facility] Start: 08-19-2022 Telephone encounter Christopher [facility] Start: 08-18-2022 End: 08-18-2022 ambulatory Christopher Pearce Other [facility] Other Start: 08-18-2022 Telephone encounter Christopher [facility]ce [facility] Start: 08-17-2022 End: 08-18-[address] CHRISTOPHER PEARCE Facility:[facility] Start: 08-17-2022 Telephone encounter Christopher [facility] Start: 08-08-2022 End: 08-08-2022 ambulatory Christopher Pearce Other [facility] Other Start: 08-08-2022 Office outpatient vi sit 25 minutes Christopher Pearce [facility] Start: 03-15-2022 End: 03-16-[address] LINO Leyva Facility:[facility] Start: 01-25-2022 End: 01-25-2022 ambulatory LEYDI PEREYRA Facility:[facility] Start: 12-22-2021 Encounter for genera l adult medical examination without abnormal findings DR CHRISTOPHER PEARCE [facility] Start: 12-21-2021 End: 12-22-[address] CHRISTOPHER PEARCE Facility:[facility] Start: 12-21-2021 End: 12-22-2021 Encounter for general adult medical examination without abnormal findings DR CHRISTOPHER PEARCE Facility:[facility] Start: 12-14-2021 Adult health examination Christopher Pearce Other [facility] Other Start: 11-09-2021 End: 11-10-2021 ambulatory Lino Ansari Facility:[facility] Start: 11-09-2021 End: 11-09-2021 Patient encounter procedure Lino Ansari Jr. [facility] Start: 08-31-2021 End: 09-01-[address] CHRISTOPHER PEARCE Facility:[facility] Start: 04-01-2021 End: 04-02-2021 ambulatory Lino Hamzah Ansari [facility] Start: 03-25-2021 End: 03-25-2021 ambulatory Lino Ansari [facility] Start: 03-24-2021 End: 03-25-2021 ambulatory Lino Hamzah Ansari [facility] Procedures Date Procedure Procedure Detail Performing Clinician Start: 12-21-2021 PSA screening LEYDI JAIN Comment on above: Performed By: #### C MP, TSH #### [facility] [address] [place] [address] Dr. Cipriano Simon Start: 03-25-2021 Cystoscopy Lino [...] recombinant Lino Ansari Jr. [facility] NEGATED: Highlighted row has not occurred!11-09-2021 influenza virus vaccine, unspecified formulation Lino Ansari Jr. [facility] Payers Date Payer Category Payer Unknown [id number] 2.16.8 [id number] 1960 Unknown [id number] 2.16.8 [id number] 1960 Unknown [id number] 2.16.8 [id number] 1960 Unknown [id number] 2.16.8 [id number] 1960 Unknown [id number] 2.16.8 [id number] 1960 Unknown [id number] 2.16.84 [id number] 1960 Unknown [id number] 2.16.84 0.1.309617.3.579.2.593 1960 Unknown [id number] 2.16.84 [id number] 1960 Unknown [id number] 2.16.84 [id number] 1960 Unknown [id number] 2.16.84 [id number] 1960 Unknown [id number] 2.16.84 [id number] 1960 Unknown [id number] 2.16.84 [id number] 1960 Unknown [id number] 2.16.8 [id number] 1960 Unknown [id number] 2.16.8 [id number] 1957 Unknown [id number] 1957 Unknown [id number] Unknown [id number] Social History Date Type Detail Facility Start: 11-09-2021 Never smoked tobacco (f inding) [facility] Male [facility] Medical Equipment Procedure Code Equipment Code Equipment Origin al Text Equipment Identifier Dates [id number] FDA Start: 03-25-2021 Start: 09-06-2022 Clinical Notes 12-30-2020 [...] Microalbumin, Dilated eye exam and Foot exam [facility] Other 12-13-2023 Evaluation note* Encounter Date Diagnosis [...] improved FBS BS have increased w/ illness [facility] Other 10-17-2023 Evaluation note* Encounter Date Diagnosis Assessment Notes Treatment Notes Treatment Clinical Notes Mar, Type 2 diabetes mellitus with hyperglycemia (ICD-10 - E11.65) [facility] Other 10-11-2023 Evaluation note* Encounter Date Diagnosis Assessment Notes Treatment Notes Treatment Clinical Notes Mar, Type 2 diabetes mellitus with hyperglycemia (ICD-10 - E11.65) Mar, alf (current) use of insulin (ICD-10 - Z79.4) [facility] Other 10-03-2023 Evaluation note* Encounter Date Diagnosis [...] exercise for 30 minutes, 3-5 times weekly. [facility] Other 07-13-2023 Evaluation note* Encounter Date Diagnosis Assessment Notes Treatment Notes Treatment Clinical Notes Dec, Type 2 diabetes mellitus with hyperglycemia, without long-term current use of insulin (ICD-10 - E11.65) [facility] Other 07-12-2023 Evaluation note* Encounter Date Diagnosis [...] Avoid stimulants, hydrate and no medication changes [facility] Other 06-26-2023 Evaluation note* Encounter Date Diagnosis [...] of infection. Monitor for now. Push fluids [facility] Other 06-17-2023 Evaluation note* Encounter Date Diagnosis [...] to 7 days, sooner if significantly worsening. [facility] Other 05-01-2023 Evaluation note* Encounter Date Diagnosis [...] They may safely use Tylenol as needed. [facility] Other 03-13-2023 Evaluation note* Encounter Date Diagnosis Assessment Notes Treatment Notes Treatment Clinical Notes Aug, Type 2 diabetes mellitus with hyperglycemia, without long-term current use of insulin (ICD-10 - E11.65) [facility] Other 03-10-2023 Evaluation note* Encounter Date Diagnosis Assessment Notes Treatment Notes Treatment Clinical Notes Aug, Type 2 diabetes mellitus with hyperglycemia, without long-term current use of insulin (ICD-10 - E11.65) Aug, Anemia, unspecified type (ICD-10 - D64.9) [facility] Other 03-09-2023 Evaluation note* Encounter Date Diagnosis Assessment Notes Treatment Notes Treatment Clinical Notes Aug, Type 2 diabetes mellitus with hyperglycemia, without long-term current use of insulin (ICD-10 - E11.65) [facility] Other 03-08-2023 Evaluation note* Encounter Date Diagnosis Assessment Notes Treatment Notes Treatment Clinical Notes Aug, Type 2 diabetes mellitus with hyperglycemia, without long-term current use of insulin (ICD-10 - E11.65) [facility] Other 02-27-2023 Evaluation note* Encounter Date Diagnosis [...] cramp, nocturnal (ICD-10 - R25.2) Reassure, check [employer] Other 05-31-2022 Hospital Discharge instructions Patient Education 11/09/2021 09:45:52 Kidney Stones, Vtll-hs-Vkzq Kidney Stones Kidney stones are rock-like masses [...] Follow these instructions at home: Medicines Take [id number] and prescription medicines only as told by [...] 11/14/2008 Document Revised: 10/15/2019 Document Reviewed: 10/15/2019 [employer] Patient Education 2020 [employer]. Follow Up Care 04/01/2021 14:51:08 With:Elan Peterson MD, FELIPE Toth Address: [facility] [address], [place] [address]- When:05/12/2022 Comments:w/nancy [facility] 10-26-2021 Note [id number]:127[facility] 04-01-2021 NoteCystoscopy with Stent Removal ? Voiding [...] you have a fever over 100 degrees.[facility] 03-24-2021 [id number]:127[facility]07-21-2021 Hospital Progress notePatient: RIC SANCHEZ MRN: [id number] Age: 60 years Sex: Male : 1960 Associated Diagnoses: None Author: Marco Alvarado MD Assessment Assessment Diagnosis: Osteoarthritis of left hip (YOK26-BB M16.12, Working, Medical). Plan A medical consult [...] Pulse: 86 (12/30 11:25) Respiration: 10 (12/30 11:) BP: 123/70 (12/30 10:) Pulse Ox: 100 (12/30 11:25) Oxygen Delivery: [...] Radiology Report for More Detail Diagnosis [facility]hesiology Preoperative evaluation and management notePatient: RIC SANCHEZ MRN: [id number] Age: 60 years Sex: Male : 1960 [...] for other preprocedural examination - Jl - Marco Alvarado MD Social History: Type of Tobacco Use: [...] 10:11 Encounter for other preprocedural examination - Working - Christiano PARDO , Marco Newton Social [...] thou/mcL 12/16/20 10:32, Lymphocyt (more content not included)...[facility] No data available for this section [facility] evaluation noteNo InformationNort Alekto Other History general Narrative - Reported* Type Description Date Medical History Anxiety Medical History diabetes mallitus Medical History left hip pain Surgical History kidney stone Hospitalization History see above [employer] Other History general Narrative - Reported* Type Description Date Medical History Anxiety Medical History diabetes mallitus Medical History left hip pain Surgical History kidney stone Surgical History Left hip replacement Hospitalization History see above [employer] Other Reason for referral (narrative)* Reason Referral for rotator cuff tear Diagnosis 1 Acute pain of left s houlder (M25.512) Diagnosis 2 Nontraumatic incompl ete tear of rotator cuff, unspecified laterality (M75.110) Referral Organization [facility] farzana Referring Provider First Name Christopher Referring Provider Last Name Bryce Referring Provider Specialty Internal Me dicine Referred Organization [facility] Referred Provider Alfredo Vazquez Referred Address [address] [place],[address] Referred Provider Specialty Orthopedic S urgery Referral Priority Routine General Notes Mr. Sanchez is being re ferred for further evaluation and treatment of a rotator cuff tear. Clinical Notes MRI completed [employer] Other Summary Purpose Family History No Family [...] section and content) DATE CREATED AUTHOR 03/01/2021 [facility] DATE CREATED AUTHOR AUTHOR'S ORGANIZ ATION 03/17/2022 [facility] DATE CREATED AUTHOR AUTHOR'S ORGANIZ ATION 08/24/2022 [facility] DATE CREATED AUTHOR AUTHOR'S ORGANNOAH ATION 08/31/2023 [facility] REASON FOR VISIT (unrecogniz ed section and content) Heart FluttersNo Information No InformationNo InformationLab ResultsMedication AErefillFOLLOW UPmedicationsinus infection, 2 wksSINUS INFECTION [phone] sugar check upNo InformationBS readingsBS NOT CONTROLLEDMedicationNo [...] BE BASED ON THE PRIMARY CLINICAL RECORDS. [email or web address] [facility]. provides no warranty or guarantee of the accuracy or completeness of information in this document.
--- NOTE | 2023-09-02 06:10 | ED.MALEGU1 ---
HPI - Male Genitourinary General Chief complaint: Fever Stated complaint: fever Time Seen by Provider: 09/02/23 06:01 Source: patient Mode of arrival: walk-in Limitations: no limitations History of Present Illness HPI Narrative: 63-year-old male presents for fever. He is worried that he has a UTI. He has a left ureteral stent that was placed 4 days ago. He was at another emergency department yesterday for several hours and he was diagnosed with a UTI. They put him on an antibiotic and he is on doxycycline per patient. He feels worse now and feels shaky. No diarrhea chest pain cough or shortness of breath. Related Data Home Medications ?Medication ?Instructions ?Recorded ?Confirmed alprazolam 0.5 mg tablet 0.5 mg PO TID 09/02/23 09/02/23 cephalexin 500 mg capsule 500 mg PO Q8H 09/02/23 09/02/23 doxycycline hyclate 100 mg capsule 100 mg PO Q12H 09/02/23 09/02/23 glimepiride 2 mg tablet 2 mg PO DAILY 09/02/23 09/02/23 insulin glargine 100 unit/mL (3 30 unit subcut DAILY 09/02/23 09/02/23 mL) subcutaneous pen (Basaglar KwikPen U-100 Insulin) metformin 1,000 mg tablet 1,000 mg PO DAILY 09/02/23 09/02/23 Previous Rx's ?Medication ?Instructions ?Recorded ondansetron 4 mg disintegrating 4 mg PO Q6H PRN nausea and 08/20/23 tablet vomiting #20 tabs oxycodone-acetaminophen 5 mg-325 1 tab PO Q6H PRN pain 5 days #20 08/20/23 mg tablet (Percocet) tabs tamsulosin 0.4 mg capsule (Flomax) 0.4 mg PO DAILY #7 caps 08/20/23 tamsulosin 0.4 mg capsule (Flomax) 0.4 mg PO DAILY PRN kidney stone 08/26/23 #14 caps ketorolac 10 mg tablet 10 mg PO Q8H PRN pain 1 day #5 tabs 08/28/23 Allergies Allergy/AdvReac Type Severity Reaction Status Date / Time No Known Drug Allergies Allergy Verified 09/02/23 06:00 Review of Systems ROS Narrative A ten point review of systems is negative except as noted above. PFSH PFS Social History Smoking status: Former smoker Exam Narrative Exam Narrative: Nurses note and vital signs reviewed and patient is not hypoxic. General: The patient appears well and in no apparent distress. Patient is resting comfortably on cart. Skin: Warm, dry, no pallor noted. There is no rash noted. Head: Normocephalic, atraumatic Eye: Normal conjunctiva, no drainage, Ears, Nose, Mouth, and Throat: oral mucosa is moist. Nares patent. Cardiovascular: Regular Rate and Rhythm, mildly tachycardic Respiratory: Patient is in no distress, no accessory muscle use, lungs are clear to auscultation, no wheezing, rales or rhonchi Back: non-tender, no CVA tenderness bilaterally to percussion. GI: Soft and nontender Musculoskeletal: The patient has no evidence of calf tenderness, no pitting edema, symmetrical pulses noted bilaterally Neurological: A&O, normal speech Psychiatric: Cooperative Constitutional Vital Signs, click to edit/add: Last Vital Signs Temp 100.6 F H 09/02/23 05:55 Pulse 116 H 09/02/23 05:55 Resp 20 09/02/23 05:55 BP 123/72 09/02/23 05:55 Pulse Ox 95 09/02/23 05:55 Course Vital Signs Vital signs: Vital Signs Temperature 100.6 F H 09/02/23 05:55 Pulse Rate 116 H 09/02/23 05:55 Respiratory Rate 20 09/02/23 05:55 Blood Pressure 123/72 09/02/23 05:55 Pulse Oximetry 95 09/02/23 05:55 Temperature 100.6 F H 09/02/23 05:55 Pulse Rate 116 H 09/02/23 05:55 Respiratory Rate 20 09/02/23 05:55 Blood Pressure 123/72 09/02/23 05:55 Pulse Oximetry 95 09/02/23 05:55 MDM - Male Genitourinary MDM Narrative Medical decision making narrative: WBC is mated team for. He has 75-100 red cells and 5-10 white cells per high-power field. Blood cultures are ordered as is a urine culture. IV Rocephin is ordered as well as a CAT scan and the patient is signed out to Dr. Albert at change of shift. Differential Diagnosis Differential diagnosis: Likely urinary tract infection and other (Pyelonephritis) Lab Data Attestation: I reviewed the patient's lab results. Labs: Lab Results 09/02/23 09/02/23 Range/Units 06:00 06:10 WBC 16.5 H (4.0-11.0) 10^3/uL RBC 4.94 (4.70-6.10) 10^6/uL Hgb 14.8 (14.0-18.0) g/dL Hct 41.8 L (42.0-54.0) % MCV 84.6 (80.0-94.0) fL MCH 30.0 (25.9-34.0) pg MCHC 35.4 H (29.9-35.2) g/dL RDW 12.3 (11.0-15.0) % Plt Count 185 (150-450) 10^3/uL MPV 9.2 L (9.5-13.5) fL Neut % (Auto) 86.3 H (43.0-75.0) % Lymph % (Auto) 5.9 L (20.5-60.0) % [place] % (Auto) 6.1 (1.7-12.0) % Eos % (Auto) 0.2 L (0.9-7.0) % Baso % (Auto) 0.2 (0.2-2.0) % Neut # (Auto) 14.2 H (1.4-6.5) 10^3/uL Lymph # (Auto) 1.0 L (1.2-3.8) 10^3/uL [place] # (Auto) 1.0 H (0.3-0.8) 10^3/uL Eos # (Auto) 0.0 (0.0-0.7) 10^3/uL Baso # (Auto) 0.0 (0.0-0.1) 10^3/uL Abs Immat Gran (auto) 0.21 H (0.00-0.03) 10^3/uL Imm/Tot Granulo (auto) 1.3 H (0.0-0.5) % Sodium 130 L (136-145) mmol/L Potassium 2.9 L* (3.5-5.1) mmol/L Chloride 96 L (98-107) mmol/L Carbon Dioxide 19.4 L (21.0-32.0) mmol/L Anion Gap 17.5 BUN 13.0 (7.0-18.0) mg/dL Creatinine 1.65 H (0.70-1.30) mg/dL Est GFR ( Amer) 52 L (>=60) Est GFR (Non-Af Amer) 43 L (>=60) BUN/Creatinine Ratio 7.9 Glucose 241 H (74-106) mg/dL Lactate 3.7 H* (0.4-2.0) mmol/L Calcium 8.1 L (8.5-10.1) mg/dL Total Bilirubin 1.2 H (0.2-1.0) mg/dL AST 19 (15-37) U/L ALT 33 (16-63) U/L Alkaline Phosphatase 71 (46-116) U/L Total Protein 6.9 (6.4-8.2) g/dL Albumin 3.1 L (3.4-5.0) g/dL Globulin 3.8 g/dL Albumin/Globulin Ratio 0.8 Urine Color [place] A (YELLOW) Urine Clarity Clear (CLEAR) Urine pH 5.5 (5.0-9.0) Ur Specific [place] >=1.030 A (1.005-1.025) Urine Protein >=300 A (NEG/TRACE) mg/dL Urine Glucose (UA) 100 A (NEGATIVE) mg/dL Urine Ketones 15 A (NEGATIVE) mg/dL Urine Occult Blood Large A (NEGATIVE) Urine Nitrite Negative (NEGATIVE) Urine Bilirubin Negative (NEGATIVE) Urine Urobilinogen 0.2 (0.2-1.0) EU/dL Ur Leukocyte Esterase Trace A (NEGATIVE) Urine RBC 75-100 A (0-2) #/HPF Urine WBC 5-10 A (NONE SEEN) #/HPF Ur Squamous Epith Cells Rare (NONE/RARE) #/LPF Urine Crystals None seen (None Seen) #/HPF Urine Bacteria Large A (NONE SEEN) #/HPF Urine Casts Seen A (NONE SEEN) #/LPF Coarse Granular Casts Rare Urine Mucus None seen (NONE SEEN) Ur Culture Indicated? Yes Discharge Plan Discharge Chief Complaint: Fever Clinical Impression: Urinary tract infection Patient Disposition: Still a Patient Prescriptions / Home Meds: No Action tamsulosin [Flomax] 0.4 mg capsule 0.4 mg PO DAILY Qty: 7 0RF oxycodone-acetaminophen [Percocet] 5-325 mg tablet 1 tab PO Q6H PRN (Reason: pain) 5 Days Qty: 20 0RF ondansetron 4 mg tablet,disintegrating 4 mg PO Q6H PRN (Reason: nausea and vomiting) Qty: 20 0RF tamsulosin [Flomax] 0.4 mg capsule 0.4 mg PO DAILY PRN (Reason: kidney stone) Qty: 14 0RF ketorolac 10 mg tablet 10 mg PO Q8H PRN (Reason: pain) 1 Days Qty: 5 0RF alprazolam 0.5 mg tablet 0.5 mg PO TID cephalexin 500 mg capsule 500 mg PO Q8H doxycycline hyclate 100 mg capsule 100 mg PO Q12H glimepiride 2 mg tablet 2 mg PO DAILY Rx Instructions: before breakfast metformin 1,000 mg tablet 1,000 mg PO DAILY insulin glargine [Basaglar KwikPen U-100 Insulin] 100 unit/mL (3 mL) insulin pen 30 unit SUBCUT DAILY Rx Instructions: at HS Print Language: Danish Referrals: Christopher Pearce DO [Primary Care Provider] - 1 week
[2023-09-02 06:14] LABS: Basophils Percent Auto 0.2 % (0.2-2.0); Eosinophils Percent Auto 0.2 % (0.9-7.0); Hematocrit 41.8 % (42.0-54.0); Hemoglobin 14.8 g/dL (14.0-18.0); Immature Granulocytes Abs Auto 0.21 10^3/uL (0.00-0.03); Immature Granulocytes Pct Auto 1.3 % (0.0-0.5); Lymphocytes Percent Auto 5.9 % (20.5-60.0); Mean Corpuscular HGB Conc 35.4 g/dL (29.9-35.2); Mean Corpuscular Volume 84.6 fL (80.0-94.0); Mean Platelet Volume 9.2 fL (9.5-13.5); Monocytes Percent Auto 6.1 % (1.7-12.0); Neutrophils Absolute Auto 14.2 10^3/uL (1.4-6.5); Neutrophils Percent Auto 86.3 % (43.0-75.0); Platelet Count 185 10^3/uL (150-450); Red Blood Count 4.94 10^6/uL (4.70-6.10); Red Cell Distribution Width 12.3 % (11.0-15.0); White Blood Count 16.5 10^3/uL (4.0-11.0)
[2023-09-02 06:19] LABS: Bilirubin Urine NEGATIVE (NEGATIVE); Blood Urine LARGE (NEGATIVE); Clarity Urine CLEAR (CLEAR); Color Urine ORANGE (YELLOW); Glucose Urine UA 100 mg/dL (NEGATIVE); Ketones Urine 15 mg/dL (NEGATIVE); Leukocyte Esterase Urine TRACE (NEGATIVE); Nitrite Urine NEGATIVE (NEGATIVE); Protein Urine >=300 mg/dL (NEG/TRACE); Specific Gravity Urine >=1.030 (1.005-1.025); Urobilinogen Urine 0.2 EU/dL (0.2-1.0); pH Urine 5.5 (5.0-9.0)
[2023-09-02 06:21] LABS: Urine Microscopic Indicated YES
[2023-09-02 06:25] LABS: Bacteria Urine LARGE #/HPF (NONE SEEN); Mucus Urine NONE SEEN (NONE SEEN); RBC Urine 75-100 #/HPF (0-2); Squamous Epithelial Cell Urine RARE #/LPF (NONE/RARE)
[2023-09-02 06:26] LABS: Cast Seen? SEEN #/LPF (NONE SEEN); Coarse Granular Casts Urine RARE; Crystals Seen? None Seen #/HPF (None Seen); Urine Culture Indicated YES
[2023-09-02 06:33] LABS: Alanine Aminotransferase 33 U/L (16-63); Albumin Globulin Ratio 0.8; Albumin Level 3.1 g/dL (3.4-5.0); Alkaline Phosphatase 71 U/L (46-116); Anion Gap 17.5; Aspartate Amino Transferase 19 U/L (15-37); BUN Creatinine Ratio 7.9; Bilirubin Total 1.2 mg/dL (0.2-1.0); Calcium 8.1 mg/dL (8.5-10.1); Carbon Dioxide 19.4 mmol/L (21.0-32.0); Chloride 96 mmol/L (98-107); Estimated GFR (African America 52 (>=60); Estimated GFR (Non-African Ame 43 (>=60); Globulin 3.8 g/dL; Glucose 241 mg/dL (74-106); Sodium 130 mmol/L (136-145); Total Protein 6.9 g/dL (6.4-8.2)
[2023-09-02 06:36] LABS: Lactate/Lactic Acid 3.7 mmol/L (0.4-2.0); Potassium 2.9 mmol/L (3.5-5.1)
[2023-09-02] MEDS: 0.9 % SODIUM CHLORIDE 1,000 ML 999 ML IV (06:38)
[2023-09-02 06:44] LABS: PROCALCITONIN 27.68 ng/mL (0.00-0.50)
[2023-09-02] MEDS: CEFTRIAXONE 2,000 MG in 0.9 % SODIUM CHLORIDE 100 ML 200 MG IV (07:02)
--- NOTE | 2023-09-02 07:25 | CT_ITS ---
The [address] [address] Patient Name: RIC SANCHEZ MRN: [id number] date: 1960 Sex: M Assigned Patient Location: ER Current Patient Location: ER Accession/Order Number: [id number] Exam Date: 09/02/2023 07:56 Report Date: 09/02/2023 10:04 At the request of: STEFANO BLANCO Procedure: CT abdomen pelvis wo con EXAM: CT abdomen pelvis wo con HISTORY: fever, kidney stones COMPARISON: CT scans 08/26/2023 and earlier. KUB 08/28/2023. TECHNIQUE: CT abdomen pelvis noncontrast. Axial scans with reformatted coronal and sagittal images. Individualized dose reduction used for this exam. FINDINGS: Kidneys urinary tract: A stent has been placed in the left ureter, proximal end coiled in the renal pelvis the distal and coiled in the bladder. Perirenal stranding around the left kidney and ureter slightly increased from 08/26/2023. No perirenal fluid or hematoma seen. No gas seen within the left ureter or upper collecting system. The previously noted ureteral calculus is not definitely visualized adjacent to the stent. Normal-appearing right kidney and ureter. Fluid-filled bladder contains a small amount of gas related to instrumentation and a stent coiled in the midline. Lower chest: Lung bases clear, no acute process. ABDOMEN: Hepatic steatosis unchanged. Normal size spleen, several granuloma again noted. Normal fluid-filled gallbladder. No biliary dilatation. Normal-appearing adrenal glands, pancreas. No ascites or free fluid. Normal-size aorta. Small periaortic lymph nodes unchanged without increasing adenopathy. Fluid noted throughout the GI tract with moderate gas fluid and stool throughout the colon. Prominent stool in the rectum which appears distended, proximally 6 cm transverse diameter compared to 3 cm previous.. No increasing bowel distention wall thickening or edema. No new or acute appearing bony abnormality. Pelvis: Artifact from left hip hardware. Ureteral stent coiled in the bladder. Distended rectum. No free fluid mass or adenopathy. CT/CT abdomen pelvis wo con IMPRESSION: 1. Interval placement of left ureteral stent with proximal end coiled in the renal pelvis distally coiled in the bladder. I do not see definite calculus along the stent or within the left kidney.. 2. Slight increased perirenal stranding and stranding around the left ureter but no perirenal fluid or hematoma noted. No gas noted in the left ureter or upper collecting system. Small amount of gas the bladder from recent instrumentation. 3. Fluid seen throughout the small bowel. Gas fluid and stool throughout the colon with distended rectum. Electronically authenticated by: LAZARO FISHER Date: 09/02/2023 10:04
[2023-09-02] MEDS: POTASSIUM CHLORIDE 10 MEQ ER TABLET 40 MEQ PO (07:36)
[2023-09-02 09:41] LABS: Lactate/Lactic Acid 3.1 mmol/L (0.4-2.0)
[2023-09-02 11:05] LABS: Glucometer 196 mg/dL (74-106)
--- OUTSIDE RECORDS SUMMARY | 2023-09-02 11:52 | XMS_ITS | CCD ---
Author Organization [facility] Care Team Providers Care Turbo Operator Name Role Phone CHRISTOPHER PEARCE Primary Care Physician [phone] Lino Ansari Attending Unavailable Elan, Lino Goodson [...] Vazquez Unavailable JOHNNIE CARTER Attending Unavailable JOHNNIE CARTER Admitting Unavailable BRYCE, CHRISTOPHER Primary Care Unavailable JOHNNIE CARTER Referring Unavailable BRYCE, CHRISTOPHER Primary Care Unavailable Allergies Allergy Classification Reported Allergen(s) Allergy Type Date of Onset Reaction(s) Facility (2 sources) Baclofen; 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: [baclofen] Drug Allergy 11-12-19 17 Unknown [facility] (2 sources) celecoxib; 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: [celecoxib] Drug Allergy 03-29-20 20 Unknown [facility] (16 sources) Iodine; 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: [iodine] Drug Allergy Unknown (qualifier value) [facility] Comment on above: pt states radioactiv e iodine only, not topical (1 source) Baclofen Drug Allergy 11-13-19 17 [facility] (1 source) celecoxib Drug Allergy 03-30-20 20 [facility] (1 source) Iodine (And Iodine Containting Drugs) Drug allergy (disorder) 03-30-20 20 [facility] (14 sources) Azithromycin Drug Allergy Unknown [facility] Other (20 sources) Ciprofloxacin Drug Allergy Unknown [facility] Other (14 sources) Sulfamethoxazole / Trimethoprim Drug Allergy Unknown [facility] Other (1 source) patient allergy list reviewed by nurse or physicia Propensity to adverse reactions 01-03-20 Comment:Done [facility] Other Medications Current Medications Medication Drug Class(es) [...] oral tablet (16 sources) alpha-Adrenergic Agonist, Uncompetitive Z-almnhh-S-aspartate Receptor Antagonist, Sigma-1 Agonist Start: 11-26-2022 take [...] sources) Long-term current use of insulin; 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: [jail (current) use of insulin] Episodic Other aftercare (1 source) [employer] continuous churn (current) use of insulin Episodic Other connective [...] 06-19-2017 Episodic Other aftercare (1 source) 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 Final result Normal [facility] CBC AUTO DIFFon 08-17-2022 BASO # 0.0 103/ul Normal 0.0-0.1 [facility] Comment on above: Performed By: #### C MP, TSH #### [facility] [address] [address] [address] Cipriano Simon Basophils/100 WBC (Bld) 0.8 % Normal 0.2-2.0 [facility] Comment on above: Performed By: #### C MP, TSH #### [facility] [address] [place] [address] Dr. Cipriano Simon EO # 0.1 103/ul Normal 0.0-0.7 [facility] Comment on above: Performed By: #### C MP, TSH #### [facility] [address] [place] [address] Dr. Cipriano Simon Eosinophils/100 WBC (Bld) 1.8 % Normal 0.9-7.0 [facility] Comment on above: Performed By: #### C MP, TSH #### [facility] [address] [place] [address] Dr. Cipriano Simon Erythrocyte distribution width (RBC) [Ratio] 12.8 % Normal 11.0-15.0 [facility] Comment on above: Performed By: #### C MP, TSH #### [facility] [address] [place] [address] Dr. Cipriano Simon Hematocrit (Bld) [Volume fraction] 46.3 % Normal 42.0-54.0 [facility] Comment on above: Performed By: #### C MP, TSH #### [facility] [address] [place] [address] Dr. Cipriano Simon Hemoglobin (Bld) [Mass/Vol] 15.8 g/dL Normal 14.0-18.0 [facility] Comment on above: Performed By: #### C MP, TSH #### [facility] [address] [place] [address] Dr. Cipriano Simon IG # 0.05 10e3/ul Critically high 0.00-0.03 [facility] Comment on above: Performed By: #### C MP, TSH #### [facility] [address] [place] [address] Dr. Cipriano Simon IG % 1.0 % Critically high 0.0-0.5 [facility] Comment on above: Performed By: #### C MP, TSH #### [facility] [address] [address] [address] Cipriano Simon LYMPH # 2.6 103/ul Normal 1.2-3.8 [facility] Comment on above: Performed By: #### C MP, TSH #### [facility] [address] [address] [address] Cipriano Simon Lymphocytes/100 WBC (Bld) 52.7 % Normal 20.5-60.0 [facility] Comment on above: Performed By: #### C MP, TSH #### [facility] [address] [address] [address] Cipriano Simon MANUAL DIFF REQ NO Normal [facility] Comment on above: Performed By: #### C MP, TSH #### [facility] [address] [place] [address] Dr. Cipriano Simon MCH (RBC) [Entitic mass] 29.0 pg Normal 25.9-34.0 [facility] Comment on above: Performed By: #### C MP, TSH #### [facility] [address] [place] [address] Dr. Cipriano Simon MCHC (RBC) [Mass/Vol] 34.1 g/dL Normal 29.9-35.2 [facility] Comment on above: Performed By: #### C MP, TSH #### [facility] [address] [place] [address] Dr. Cipriano Simon MCV (RBC) [Entitic vol] 85.0 fL Normal 80.0-94.0 [facility] Comment on above: Performed By: #### C MP, TSH #### [facility] [address] [place] [address] Dr. Cipriano Simon MONO # 0.4 103/ul Normal 0.3-0.8 [facility] Comment on above: Performed By: #### C MP, TSH #### [facility] [address] [place] [address] Dr. Cipriano Simon Monocytes/100 WBC (Bld) 7.2 % Normal 1.7-12.0 [facility] Comment on above: Performed By: #### C MP, TSH #### [facility] [address] [address] [address] Cipriano Simon NEUT # 1.8 103/ul Normal 1.4-6.5 [facility] Comment on above: Performed By: #### C MP, TSH #### [facility] [address] [address] [address] Cipriano Simon Neutrophils/100 WBC (Bld) 36.5 % Critically low 43.0-75.0 [facility] Comment on above: Performed By: #### C MP, TSH #### [facility] [address] [address] [address] Cipriano Simon Platelet mean volume (Bld) [Entitic vol] 10.7 fL Normal 9.5-13.5 [facility] Comment on above: Performed By: #### C MP, TSH #### [facility] [address] [place] [address] Dr. Cipriano Simon PLT 214 103/ul Normal 150-450 [facility] Comment on above: Performed By: #### C MP, TSH #### [facility] [address] [place] [address] Dr. Cipriano Simon RBC 5.45 106/ul Normal 4.70-6.10 [facility] Comment on above: Performed By: #### C MP, TSH #### [facility] [address] [place] [address] Dr. Cipriano Simon WBC 5.0 103/ul Normal 4.0-11.0 [facility] Comment on above: Performed By: #### C MP, TSH #### [facility] [address] [place] [address] Dr. Cipriano Simon GLYCOHEMOGLOBIN A1Con 2022 ADA RECOMMENDATION SEE BELOW Normal [facility] Comment on above: Result Comment: ADA RECOMMENDED LIMIT 4.0 - 6.0 ADA THERAPEUTIC TARGET < 7.0 ACTION SUGGESTED > 7.0 Performed By: #### C MP, TSH #### [facility] [address] [place] [address] Dr. Cipriano Simon Glucose [Mass/Vol] 209 mg/dL Normal [facility] Comment on above: Performed By: #### C MP, TSH #### [facility] [address] [place] [address] Dr. Cipriano Simon HbA1c (Bld) [Mass fraction] 8.9 % Critically high 4.5-6.2 [facility] Comment on above: Performed By: #### C MP, TSH #### [facility] [address] [place] [address] Dr. Cipriano Simon MICROALBUMIN, RAND URon mALB 1.8 mg/L Normal <=30.0 [facility] Comment on above: Performed By: #### M ALBR #### [facility] [address] [place] [address] Dr. Cipriano Simon PROF 14(COMP METB)on 023 Albumin [Mass/Vol] 4.1 g/dL Normal 3.4-5.0 [facility] Comment on above: Performed By: #### C MP, TSH #### [facility] [address] [place] [address] Dr. Cipriano Simon Albumin/Globulin [Mass ratio] 1.2 {ratio} Normal [facility] Comment on above: Performed By: #### C MP, TSH #### [facility] [address] [place] [address] Dr. Cipriano Simon ALP [Catalytic activity/Vol] 106 U/L Normal 46-116 [facility] Comment on above: Performed By: #### C MP, TSH #### [facility] [address] [place] [address] Dr. Cipriano Simon ALT [Catalytic activity/Vol] 42 U/L Normal 16-63 [facility] Comment on above: Performed By: #### C MP, TSH #### [facility] [address] [place] [address] Dr. Cipriano Simon Anion gap [Moles/Vol] 12.7 mmol/L Normal [facility] Comment on above: Performed By: #### C MP, TSH #### [facility] [address] [place] [address] Dr. Cipriano Simon AST [Catalytic activity/Vol] 15 U/L Normal 15-37 [facility] Comment on above: Performed By: #### C MP, TSH #### [facility] [address] [place] [address] Dr. Cipriano Simon Bilirubin [Mass/Vol] 0.5 mg/dL Normal 0.2-1.0 [facility] Comment on above: Performed By: #### C MP, TSH #### [facility] [address] [place] [address] Dr. Cipriano Simon Calcium [Mass/Vol] 8.9 mg/dL Normal 8.5-10.1 [facility] Comment on above: Performed By: #### C MP, TSH #### [facility] [address] [place] [address] Dr. Cipriano Simon Chloride [Moles/Vol] 101 mmol/L Normal 98-107 [facility] Comment on above: Performed By: #### C MP, TSH #### [facility] [address] [place] [address] Dr. Cipriano Simon CO2 [Moles/Vol] 29.1 mmol/L Normal 21.0-32.0 [facility] Comment on above: Performed By: #### C MP, TSH #### [facility] [address] [place] [address] Dr. Cipriano Simon Creatinine [Mass/Vol] 0.95 mg/dL Normal 0.70-1.30 [facility] Comment on above: Performed By: #### C MP, TSH #### [facility] [address] [place] [address] Dr. Cipriano Simon EGFR-AF OMANI >60 Normal >=60 [facility] Comment on above: Performed By: #### C MP, TSH #### [facility] [address] [place] [address] Dr. Cipriano Simon EGFR-NON AF OMANI >60 Normal >=60 [facility] Comment on above: Performed By: #### C MP, TSH #### [facility] [address] [place] [address] Dr. Cipriano Simon Globulin (S) [Mass/Vol] 3.5 g/dL Normal [facility] Comment on above: Performed By: #### C MP, TSH #### [facility] [address] [place] [address] Dr. Cipriano Simon Glucose [Mass/Vol] 256 mg/dL Critically high 74-106 [facility] Comment on above: Performed By: #### C MP, TSH #### [facility] [address] [place] [address] Dr. Cipriano Simon Potassium [Moles/Vol] 3.8 mmol/L Normal 3.5-5.1 [facility] Comment on above: Performed By: #### C MP, TSH #### [facility] [address] [place] [address] Dr. Cipriano Simon Protein [Mass/Vol] 7.6 g/dL Normal 6.4-8.2 [facility] Comment on above: Performed By: #### C MP, TSH #### [facility] [address] [place] [address] Dr. Cipriano Simon Sodium [Moles/Vol] 139 mmol/L Normal 136-145 [facility] Comment on above: Performed By: #### C MP, TSH #### [facility] [address] [place] [address] Dr. Cipriano Simon Urea nitrogen [Mass/Vol] 14.0 mg/dL Normal 7.0-18.0 [facility] Comment on above: Performed By: #### C MP, TSH #### [facility] [address] [place] [address] Dr. Cipriano Simon Urea nitrogen/Creatinine [Mass ratio] 14.7 mg/mg Normal [facility] Comment on above: Performed By: #### C MP, TSH #### [facility] [address] [place] [address] Dr. Cipriano Simon TSHon 08-17-2022 TSH 1.540 uIU/mL Normal 0.358-3.740 [facility] Comment on above: Performed By: #### C MP, TSH #### [facility] [address] [place] [address] Dr. Cipriano Simon RAD - MISCon 03-16-2022 RAD - MISC [id number] Normal [facility] TESTOSTERONE, TOTALon 2021 Testosterone [Mass/Vol] 906 ng/dL Normal 264-916 [facility] Comment on above: Result Comment: Adul t male reference interval is based on a population of healthy nonobese males (BMI <30) between 19 and 39 years old. alva Ferrera.al. JCEM 2017,102;[id number]. PMID: [id number]. Performed By: #### C MP, TSH #### [facility] [address] [address] [address] Cipriano Simon GLYCOHEMOGLOBIN A1Con 2021 ADA RECOMMENDATION SEE BELOW Normal [facility] Comment on above: Result Comment: ADA RECOMMENDED LIMIT 4.0 - 6.0 ADA THERAPEUTIC TARGET < 7.0 ACTION SUGGESTED > 7.0 Performed By: #### A 1C #### [facility] [address] [address] [address] Cipriano Simon Glucose [Mass/Vol] 171 mg/dL Normal [facility] Comment on above: Performed By: #### A 1C #### [facility] [address] [address] [address] Cipriano Simon HbA1c (Bld) [Mass fraction] 7.6 % Critically high 4.5-6.2 [facility] Comment on above: Performed By: #### A 1C #### [facility] [address] [address] [address] Cipriano Simon XR KUB 1 VIEWon [...] CASE SANDY Date: 2022-03-15 08:36 Normal [facility] XR LSPINE 2_3 VIEWSon 2021 [...] CASE SANDY Date: 2022-03-15 08:44 Normal [facility] AMYLASEon 01-25-2022 Amylase [Catalytic activity/Vol] 55 U/L Normal 25-115 [facility] Comment on above: Performed By: #### C MP, LIPA, CMADM, RISSA #### [facility] [address] [address] [address] Cipriano Simon CARDIAC MELINDA ADMITon 022 CK [Catalytic activity/Vol] 76 U/L Normal 39-308 [facility] Comment on above: Performed By: #### C MP, LIPA, CMADM, RISSA #### [facility] [address] [address] [address] Cipriano Simon CK.MB [Mass/Vol] ng/mL Normal <=3.60 [facility] Comment on above: Performed By: #### C MP, LIPA, CMADM, RISSA #### [facility] [address] [address] [address] Cipriano Simon HSTROP 4.8 pg/mL Normal 4.0-76.1 [facility] Comment on above: Result Comment: CUT- OFF POINTS HAVE BEEN ESTABLISHED BASED ON THE FOURTH UNIVERSAL DEFINITIONS OF MYOCARDIAL INFARCTION. THE UPPER REFERENCE LIMIT (URL) OF TROPONIN, DEFINED THE 99TH PERCENTILE OF cTnI DISTRIBUTION IN A REFERENCE POPULATION, HAS BEEN CONFIRMED THE DECISION THRESHOLD FOR NC DIAGNOSIS. Performed By: #### C HARDY JACKSONA, CMACHRISTEN, RISSA #### [facility] [address] [place] [address] Dr. Cipriano Simon GEOVANNA 33 ng/mL Normal 16-96 [facility] Comment on above: Performed By: #### C HARDY JACKSONA, CMACHRISTEN, RISSA #### [facility] [address] [place] [address] Dr. Cipriano Simon CBC AUTO DIFFon 01-25-2022 BASO # 0.0 103/ul Normal 0.0-0.1 [facility] Comment on above: Performed By: #### A 1C #### [facility] [address] [place] [address] Dr. Cipriano Simon Basophils/100 WBC (Bld) 0.3 % Normal 0.2-2.0 [facility] Comment on above: Performed By: #### A 1C #### [facility] [address] [place] [address] Dr. Cipriano Simon EO # 0.1 103/ul Normal 0.0-0.7 [facility] Comment on above: Performed By: #### A 1C #### [facility] [address] [place] [address] Dr. Cipriano Simon Eosinophils/100 WBC (Bld) 1.7 % Normal 0.9-7.0 [facility] Comment on above: Performed By: #### A 1C #### [facility] [address] [place] [address] Dr. Cipriano Simon Erythrocyte distribution width (RBC) [Ratio] 12.7 % Normal 11.0-15.0 [facility] Comment on above: Performed By: #### A 1C #### [facility] [address] [place] [address] Dr. Cipriano Simon Hematocrit (Bld) [Volume fraction] 43.3 % Normal 42.0-54.0 [facility] Comment on above: Performed By: #### A 1C #### [facility] [address] [place] [address] Dr. Cipriano Simon Hemoglobin (Bld) [Mass/Vol] 15.1 g/dL Normal 14.0-18.0 [facility] Comment on above: Performed By: #### A 1C #### [facility] [address] [place] [address] Dr. Cipriano Simon IG # 0.04 10e3/ul Critically high 0.00-0.03 [facility] Comment on above: Performed By: #### A 1C #### [facility] [address] [place] [address] Dr. Cipriano Simon IG % 0.6 % Critically high 0.0-0.[address] [facility] Comment on above: Performed By: #### A 1C #### [facility] [address] [place] [address] Dr. Cipriano Simon LYMPH # 2.9 103/ul Normal 1.2-3.8 [facility] Comment on above: Performed By: #### A 1C #### [facility] [address] [place] [address] Dr. Cipriano Simon Lymphocytes/100 WBC (Bld) 42.1 % Normal 20.5-60.0 [facility] Comment on above: Performed By: #### A 1C #### [facility] [address] [place] [address] Dr. Cipriano Simon MANUAL DIFF REQ NO Normal [facility] Comment on above: Performed By: #### A 1C #### [facility] [address] [place] [address] Dr. Cipriano Simon MCH (RBC) [Entitic mass] 29.5 pg Normal 25.9-34.0 [facility] Comment on above: Performed By: #### A 1C #### [facility] [address] [place] [address] Dr. Cipriano Simon MCHC (RBC) [Mass/Vol] 34.9 g/dL Normal 29.9-35.2 [facility] Comment on above: Performed By: #### A 1C #### [facility] [address] [address] [address] Cipriano Simon MCV (RBC) [Entitic vol] 84.7 fL Normal 80.0-94.0 [facility] Comment on above: Performed By: #### A 1C #### [facility] [address] [address] [address] Cipriano Simon MONO # 0.4 103/ul Normal 0.3-0.8 [facility] Comment on above: Performed By: #### A 1C #### [facility] [address] [place] [address] Dr. Cipriano Simon Monocytes/100 WBC (Bld) 5.5 % Normal 1.7-12.0 [facility] Comment on above: Performed By: #### A 1C #### [facility] [address] [place] [address] Dr. Cipriano Simon NEUT # 3.4 103/ul Normal 1.4-6.5 [facility] Comment on above: Performed By: #### A 1C #### [facility] [address] [place] [address] Dr. Cipriano Simon Neutrophils/100 WBC (Bld) 49.8 % Normal 43.0-75.0 [facility] Comment on above: Performed By: #### A 1C #### [facility] [address] [place] [address] Dr. Cipriano Simon Platelet mean volume (Bld) [Entitic vol] 9.4 fL Critically low 9.5-13.5 [facility] Comment on above: Performed By: #### A 1C #### [facility] [address] [place] [address] Dr. Cipriano Simon PLT 238 103/ul Normal 150-450 [facility] Comment on above: Performed By: #### A 1C #### [facility] [address] [place] [address] Dr. Cipriano Simon RBC 5.11 106/ul Normal 4.70-6.10 [facility] Comment on above: Performed By: #### A 1C #### [facility] [address] [place] [address] Dr. Cipriano Simon WBC 6.9 103/ul Normal 4.0-11.0 [facility] Comment on above: Performed By: #### A 1C #### [facility] [address] [place] [address] Dr. Cipriano Simon LACTATE/LACTIC ACIDon 2021 Lactate [Moles/Vol] 1.2 mmol/L Normal 0.4-1.9 [facility] Comment on above: Performed By: #### A 1C #### [facility] [address] [place] [address] Dr. Cipriano Simon LIPASEon 01-25-2022 Lipase [Catalytic activity/Vol] 89.0 U/L Normal 73.0-393.0 [facility] Comment on above: Performed By: #### C MP, LIPA, CMADM, RISSA #### [facility] [address] [place] [address] Dr. Cipriano Simon PROF 14(COMP METB)on 022 Albumin [Mass/Vol] 3.8 g/dL Normal 3.4-5.0 [facility] Comment on above: Performed By: #### C MP, LIPA, CMADM, RISSA #### [facility] [address] [place] [address] Dr. Cipriano Simon Albumin/Globulin [Mass ratio] 1.1 {ratio} Normal [facility] Comment on above: Performed By: #### C MP, LIPA, CMADM, RISSA #### [facility] [address] [place] [address] Dr. Cipriano Simon ALP [Catalytic activity/Vol] 111 U/L Normal 46-116 [facility] Comment on above: Performed By: #### C MP, LIPA, CMADM, RISSA #### [facility] [address] [place] [address] Dr. Cipriano Simon ALT [Catalytic activity/Vol] 41 U/L Normal 16-63 [facility] Comment on above: Performed By: #### C MP, LIPA, CMADM, RISSA #### [facility] [address] [place] [address] Dr. Cipriano Simon Anion gap [Moles/Vol] 11.5 mmol/L Normal [facility] Comment on above: Performed By: #### C MP, LIPA, CMADM, RISSA #### [facility] [address] [address] [address] Cipriano Simon AST [Catalytic activity/Vol] 16 U/L Normal 15-37 [facility] Comment on above: Performed By: #### C MP, LIPA, CMADM, RISSA #### [facility] [address] [address] [address] Cipriano Simon Bilirubin [Mass/Vol] 0.5 mg/dL Normal 0.2-1.0 [facility] Comment on above: Performed By: #### C MP, LIPA, CMADM, RISSA #### [facility] [address] [place] [address] Dr. Cipriano Simon Calcium [Mass/Vol] 9.0 mg/dL Normal 8.5-10.1 [facility] Comment on above: Performed By: #### C MP, LIPA, CMADM, RISSA #### [facility] [address] [place] [address] Dr. Cipriano Simon Chloride [Moles/Vol] 101 mmol/L Normal 98-107 [facility] Comment on above: Performed By: #### C MP, LIPA, CMADM, RISSA #### [facility] [address] [address] [address] Cipriano Simon CO2 [Moles/Vol] 26.1 mmol/L Normal 21.0-32.0 [facility] Comment on above: Performed By: #### C MP, LIPA, CMADM, RISSA #### [facility] [address] [address] [address] Cipriano Simon Creatinine [Mass/Vol] 0.84 mg/dL Normal 0.70-1.30 [facility] Comment on above: Performed By: #### C MP, LIPA, CMADM, RISSA #### [facility] [address] [address] [address] Cipriano Simon EGFR-AF OMANI >60 Normal >=60 [facility] Comment on above: Performed By: #### C MP, LIPA, CMADM, RISSA #### [facility] [address] [place] [address] Dr. Cipriano Simon EGFR-NON AF OMANI >60 Normal >=60 [facility] Comment on above: Performed By: #### C MP, LIPA, CMADM, RISSA #### [facility] [address] [place] [address] Dr. Cipriano Simon Globulin (S) [Mass/Vol] 3.4 g/dL Normal [facility] Comment on above: Performed By: #### C MP, LIPA, CMADM, RISSA #### [facility] [address] [place] [address] Dr. Cipriano Simon Glucose [Mass/Vol] 245 mg/dL Critically high 74-106 [facility] Comment on above: Performed By: #### C MP, LIPA, CMADM, RISSA #### [facility] [address] [place] [address] Dr. Cipriano Simon Potassium [Moles/Vol] 3.6 mmol/L Normal 3.5-5.1 [facility] Comment on above: Performed By: #### C MP, LIPA, CMADM, RISSA #### [facility] [address] [place] [address] Dr. Cipriano Simon Protein [Mass/Vol] 7.2 g/dL Normal 6.4-8.2 [facility] Comment on above: Performed By: #### C MP, LIPA, CMADM, RISSA #### [facility] [address] [place] [address] Dr. Cipriano Simon Sodium [Moles/Vol] 135 mmol/L Critically low 136-145 [facility] Comment on above: Performed By: #### C MP, LIPA, CMADM, RISSA #### [facility] [address] [place] [address] Dr. Cipriano Simon Urea nitrogen [Mass/Vol] 13.0 mg/dL Normal 7.0-18.0 [facility] Comment on above: Performed By: #### C MP, LIPA, CMADM, RISSA #### [facility] [address] [address] [address] Cipriano Simon Urea nitrogen/Creatinine [Mass ratio] 15.5 mg/mg Normal [facility] Comment on above: Performed By: #### C MP, LIPA, CMADM, RISSA #### [facility] [address] [address] [address] Cipriano Simon XR ABD FLAT UP_PA [...] BRIA [place] Date: 2022-01-25 02:00 Normal [facility] CBC AUTO DIFFon 12-21-2021 BASO # 0.0 103/ul Normal 0.0-0.1 [facility] Comment on above: Performed By: #### C MP, TSH #### [facility] [address] [place] [address] Dr. Cipriano Simon Basophils/100 WBC (Bld) 0.5 % Normal 0.2-2.0 [facility] Comment on above: Performed By: #### C MP, TSH #### [facility] [address] [place] [address] Dr. Cipriano Simon EO # 0.2 103/ul Normal 0.0-0.7 [facility] Comment on above: Performed By: #### C MP, TSH #### [facility] [address] [place] [address] Dr. Cipriano Simon Eosinophils/100 WBC (Bld) 2.9 % Normal 0.9-7.0 [facility] Comment on above: Performed By: #### C MP, TSH #### [facility] [address] [place] [address] Dr. Cipriano Simon Erythrocyte distribution width (RBC) [Ratio] 13.0 % Normal 11.0-15.0 [facility] Comment on above: Performed By: #### C MP, TSH #### [facility] [address] [place] [address] Dr. Cipriano Simon Hematocrit (Bld) [Volume fraction] 44.9 % Normal 42.0-54.0 [facility] Comment on above: Performed By: #### C MP, TSH #### [facility] [address] [place] [address] Dr. Cipriano Simon Hemoglobin (Bld) [Mass/Vol] 15.7 g/dL Normal 14.0-18.0 [facility] Comment on above: Performed By: #### C MP, TSH #### [facility] [address] [place] [address] Dr. Cipriano Simon IG # 0.03 10e3/ul Normal 0.00-0.03 [facility] Comment on above: Performed By: #### C MP, TSH #### [facility] [address] [place] [address] Dr. Cipriano Simon IG % 0.5 % Normal 0.0-0.5 [facility] Comment on above: Performed By: #### C MP, TSH #### [facility] [address] [place] [address] Dr. Cipriano Simon LYMPH # 2.6 103/ul Normal 1.2-3.8 [facility] Comment on above: Performed By: #### C MP, TSH #### [facility] [address] [place] [address] Dr. Cipriano Simon Lymphocytes/100 WBC (Bld) 44.6 % Normal 20.5-60.0 [facility] Comment on above: Performed By: #### C MP, TSH #### [facility] [address] [place] [address] Dr. Cipriano Simon MANUAL DIFF REQ NO Normal [facility] Comment on above: Performed By: #### C MP, TSH #### [facility] [address] [place] [address] Dr. Cipriano Simon MCH (RBC) [Entitic mass] 29.7 pg Normal 25.9-34.0 [facility] Comment on above: Performed By: #### C MP, TSH #### [facility] [address] [place] [address] Dr. Cipriano Simon MCHC (RBC) [Mass/Vol] 35.0 g/dL Normal 29.9-35.2 [facility] Comment on above: Performed By: #### C MP, TSH #### [facility] [address] [place] [address] Dr. Cipriano Simon MCV (RBC) [Entitic vol] 84.9 fL Normal 80.0-94.0 [facility] Comment on above: Performed By: #### C MP, TSH #### [facility] [address] [place] [address] Dr. Cipriano Simon MONO # 0.4 103/ul Normal 0.3-0.8 [facility] Comment on above: Performed By: #### C MP, TSH #### [facility] [address] [place] [address] Dr. Cipriano Simon Monocytes/100 WBC (Bld) 7.0 % Normal 1.7-12.0 [facility] Comment on above: Performed By: #### C MP, TSH #### [facility] [address] [place] [address] Dr. Cipriano Simon NEUT # 2.6 103/ul Normal 1.4-6.5 [facility] Comment on above: Performed By: #### C MP, TSH #### [facility] [address] [place] [address] Dr. Cipriano Simon Neutrophils/100 WBC (Bld) 44.5 % Normal 43.0-75.0 [facility] Comment on above: Performed By: #### C MP, TSH #### [facility] [address] [address] [address] Cipriano Simon Platelet mean volume (Bld) [Entitic vol] 9.3 fL Critically low 9.5-13.5 [facility] Comment on above: Performed By: #### C MP, TSH #### [facility] [address] [address] [address] Cipriano Simon PLT 215 103/ul Normal 150-450 [facility] Comment on above: Performed By: #### C MP, TSH #### [facility] [address] [address] [address] Cipriano Simon RBC 5.29 106/ul Normal 4.70-6.10 [facility] Comment on above: Performed By: #### C MP, TSH #### [facility] [address] [place] [address] Dr. Cipriano Simon WBC 5.9 103/ul Normal 4.0-11.0 [facility] Comment on above: Performed By: #### C MP, TSH #### [facility] [address] [place] [address] Dr. Cipriano Simon GLYCOHEMOGLOBIN A1Con 2021 ADA RECOMMENDATION SEE BELOW Normal [facility] Comment on above: Result Comment: ADA RECOMMENDED LIMIT 4.0 - 6.0 ADA THERAPEUTIC TARGET < 7.0 ACTION SUGGESTED > 7.0 Performed By: #### A 1C #### [facility] [address] [place] [address] Dr. Cipriano Simon Glucose [Mass/Vol] 169 mg/dL Normal [facility] Comment on above: Performed By: #### A 1C #### [facility] [address] [address] [address] Cipriano Simon HbA1c (Bld) [Mass fraction] 7.5 % Critically high 4.5-6.2 [facility] Comment on above: Performed By: #### A 1C #### [facility] [address] [place] [address] Dr. Cipriano Simon LIPID PROFILEon 12-21-2021 CHOL-HDL RATIO NORM SEE BELOW Normal [facility] Comment on above: Result Comment: 3.3 - 4.4 LOW RISK 4.4 - 7.1 AVERAGE RISK 7.1 - 11.0 MODERATE RISK >11.0 HIGH RISK Performed By: #### C MP, TSH #### [facility] [address] [address] [address] Cipriano Simon Cholesterol [Mass/Vol] 185 mg/dL Normal <=200 [facility] Comment on above: Performed By: #### C MP, TSH #### [facility] [place] [facility] [address] [address] [address] Cipriano Simon Cholesterol in HDL [Mass/Vol] 39 mg/dL Critically low 40-60 [facility] Comment on above: Performed By: #### C MP, TSH #### [facility] [place] [facility] [address] [address] [address] Cipriano Simon Cholesterol in LDL [Mass/Vol] 99.2 mg/dL Normal [facility] Comment on above: Performed By: #### C MP, TSH #### [facility] [place] [facility] [address] [address] [address] Cipriano Simon Cholesterol.total/Ch olesterol in HDL [Mass ratio] 4.7 {ratio} Normal [facility] Comment on above: Performed By: #### C MP, TSH #### [facility] [address] [address] [address] Cipriano Simon HDL NORMAL > or = 60 mg/dl - LO W CARDIOVASCULAR RISK <40 mg/dl - HIGH CARDIOVASCULAR RISK Normal [facility] Comment on above: Performed By: #### C MP, TSH #### [facility] [address] [address] [address] Cipriano Simon LDL CALC NORMAL SEE BELOW Normal [facility] Comment on above: Result Comment: <100 mg/dl OPTIMAL 100 - 129 mg/dl NEAR OR ABOVE OPTIMAL 130 - 159 mg/dl BORDERLINE HIGH 160 - 189 mg/dl HIGH >190 mg/dl VERY HIGH Performed By: #### C MP, TSH #### [facility] [address] [address] [address] Cipriano Simon Triglyceride [Mass/Vol] 234 mg/dL Critically high <=150 [facility] Comment on above: Performed By: #### C MP, TSH #### [facility] [place] [facility] [address] [place] [address] Dr. Cipriano Simon VLDL CALC 46.8 mg/dL Normal [facility] Comment on above: Performed By: #### C MP, TSH #### [facility] [place] [facility] [address] [place] [address] Dr. Cipriano Simon MICROALBUMIN, RAND URon 12-10 mALB <1.3 Normal <=30.0 [facility] Comment on above: Performed By: #### M ALBR #### [facility] [place] [facility] [address] [place] [address] Dr. Cipriano Simon PROF 14(COMP METB)on 022 Albumin [Mass/Vol] 3.9 g/dL Normal 3.4-5.0 [facility] Comment on above: Performed By: #### C MP, TSH #### [facility] [place] [facility] [address] [place] [address] Dr. Cipriano Simon Albumin/Globulin [Mass ratio] 1.1 {ratio} Normal [facility] Comment on above: Performed By: #### C MP, TSH #### [facility] [place] [facility] [address] [place] [address] Dr. Cipriano Simon ALP [Catalytic activity/Vol] 96 U/L Normal 46-116 [facility] [place] [facility] Comment on above: Performed By: #### C MP, TSH #### [facility] [place] [facility] [address] [place] [address] Dr. Cipriano Simon ALT [Catalytic activity/Vol] 51 U/L Normal 16-63 [facility] [place] [facility] Comment on above: Performed By: #### C MP, TSH #### [facility] [address] [place] [address] Dr. Cipriano Simon Anion gap [Moles/Vol] 13.4 mmol/L Normal [facility] Comment on above: Performed By: #### C MP, TSH #### [facility] [place] [facility] [address] [place] [address] Dr. Cipriano Simon AST [Catalytic activity/Vol] 15 U/L Normal 15-37 [facility] Comment on above: Performed By: #### C MP, TSH #### [facility] [place] [facility] [address] [place] [address] Dr. Cipriano Simon Bilirubin [Mass/Vol] 0.8 mg/dL Normal 0.2-1.0 [facility] Comment on above: Performed By: #### C MP, TSH #### [facility] [place] [facility] [address] [place] [address] Dr. Cipriano Simon Calcium [Mass/Vol] 8.8 mg/dL Normal 8.5-10.1 [facility] Comment on above: Performed By: #### C MP, TSH #### [facility] [place] [facility] [address] [place] [address] Dr. Cipriano Simon Chloride [Moles/Vol] 105 mmol/L Normal 98-107 [facility] Comment on above: Performed By: #### C MP, TSH #### [facility] [place] [facility] [address] [place] [address] Dr. Cipriano Simon CO2 [Moles/Vol] 25.4 mmol/L Normal 21.0-32.0 [facility] Comment on above: Performed By: #### C MP, TSH #### [facility] [place] [facility] [address] [place] [address] Dr. Cipriano Simon Creatinine [Mass/Vol] 0.91 mg/dL Normal 0.70-1.30 [facility] Comment on above: Performed By: #### C MP, TSH #### [facility] [place] [facility] [address] [place] [address] Dr. Cipriano Simon EGFR-AF OMANI >60 Normal >=60 [facility] Comment on above: Performed By: #### C MP, TSH #### [facility] [place] [facility] [address] [place] [address] Dr. Cipriano Simon EGFR-NON AF OMANI >60 Normal >=60 [facility] Comment on above: Performed By: #### C MP, TSH #### [facility] [place] [facility] [address] [place] [address] Dr. Cipriano Simon Globulin (S) [Mass/Vol] 3.6 g/dL Normal [facility] Comment on above: Performed By: #### C MP, TSH #### [facility] [place] [facility] [address] [place] [address] Dr. Cipriano Simon Glucose [Mass/Vol] 198 mg/dL Critically high 74-106 [facility] Comment on above: Performed By: #### C MP, TSH #### [facility] [place] [facility] [address] [place] [address] Dr. Cipriano Simon Potassium [Moles/Vol] 3.8 mmol/L Normal 3.5-5.1 [facility] Comment on above: Performed By: #### C MP, TSH #### [facility] [address] [place] [address] Dr. Cipriano Simon Protein [Mass/Vol] 7.5 g/dL Normal 6.4-8.2 [facility] Comment on above: Performed By: #### C MP, TSH #### [facility] [address] [place] [address] Dr. Cipriano Simon Sodium [Moles/Vol] 140 mmol/L Normal 136-145 [facility] Comment on above: Performed By: #### C MP, TSH #### [facility] [place] [facility] [address] [place] [address] Dr. Cipriano Simon Urea nitrogen [Mass/Vol] 13.0 mg/dL Normal 7.0-18.0 [facility] Comment on above: Performed By: #### C MP, TSH #### [facility] [place] [facility] [address] [place] [address] Dr. Cipriano Simon Urea nitrogen/Creatinine [Mass ratio] 14.3 mg/mg Normal [facility] Comment on above: Performed By: #### C MP, TSH #### [facility] [place] [facility] [address] [place] [address] Dr. Cipriano Simon VITAMIN B12on 12-21-2021 Cobalamin (Vitamin B12) [Mass/Vol] 647.0 pg/mL Normal 193.0-986.0 [facility] Comment on above: Performed By: #### C MP, TSH #### [facility] [address] [place] [address] Dr. Cipriano Simon Ambulatory Visit Summaryon 0 11-09-2021 Ambulatory Visit Summary RIC SANCHEZ :1960 Visit Date:11/09/2021 Ambulatory Visit Instructions Your Diagnosis Kidney stone Tests Performed Urnls Dip Stick Auto w/o Microscopy POC 44387 XR Abdomen 1 View -- Results Pending [...] w/kub Where: [facility] [address] [place] [address]- Medications What How Much When Instructions Unchanged [...] Urnls Dip Stick Auto w/o Microscopy POC 00654 (11/09/2021) Bilirubin Urine Dipstick - Negative Blood Urine Dipstick - Negative Glucose Urine Dipstick - 3+ 1000 mg/dl Ketones Urine Dipstick - Trace - 5 mg/dl Leukocytes Urine Dipstick - Negative Nitrite Urine Dipstick - Negative Protein Urine Dipstick - Negative Specific [place] Urine Dipstick - 1.020 Urine Appearance Urine [...] usuall (more content not included)... Normal [facility] Patient Educationon 11-10-19 Patient Education Urology Kidney [...] these instructions at home: Medicines ? Take dhnb-[id number] and prescription medicines only as told by [...] 11/14/2008 Document Revised: 10/15/2019 Document Reviewed: 10/15/2019 Check Patient Education ? 2019 [employer] [facility] Urology Office/Clinic Noteon 11-09-2021 Urology Office/Clinic [...] do not have a PSA for review. [facility] Staff pt is here for 6mo [...] Urnls Dip Stick Auto w/o Microscopy POC 21791 Urnls Dip Stick Auto w/o Microscopy POC 99802 XR Abdomen 1 View XR Abdomen 1 View Follow-up With When Contact Information Elan Peterson MD, Lino Goodson, URO In 6 months 05/12/2022 [facility] [address], [place] [address]- Additional Instructions: w/kub Patient Education Kidney Stones, [id number] Grace Elizabeth personally scribed for Dr. Ansari [...] Hip replac (more content not included)... Normal [facility] Comment on above: Result Comment: Elec tronically Signed By: Lino Ansari Jr., MD\.br\Date and Time Signed: 11/09/21 09:52 EDT\.br\Electronically Co-Signed By: Grace Marin MA.tay\Date and Time Co-Signed: 11/09/21 09:47 EDT GLYCOHEMOGLOBIN A1Con 2021 ADA RECOMMENDATION ADA THERAPEUTIC TARG ET 6.0 - 7.0 ACTION SUGGESTED > 7.0 Normal [facility] Comment on above: Performed By: #### C MP, TSH #### [facility] [place] [facility] [address] [address] [address] Cipriano Simon Glucose [Mass/Vol] 148 mg/dL Normal [facility] Comment on above: Performed By: #### C MP, TSH #### [facility] [place] [facility] [address] [place], [place] [address] Dr. Cipriano Simon HbA1c (Bld) [Mass fraction] 6.8 % Critically high <=6.0 [facility] Comment on above: Performed By: #### C MP, TSH #### [facility] [place] [facility] [address] [address] [address] Cipriano Simon Formson 04-08-2021 Forms [id number]#[id number] 0CD:127 Normal [facility] Coding Summary.on 04-07-2021 Coding Summary. CD:[id number] Gh 0bWw+PGhlYWQ+JB0ECPJtT 99hsCSxlZ9PD3fIVP4LDRT DYNFKET7FUA2wtAY7PQuvR 2VybiAv EwtkhRAdUH36SEl2UKG1tT teFSxfgU4ygAPmD3u1CfYj JL94hJ80XBshVIQmHkO8Bd ZpbjsgbWFy N3gvQuNymTNrNga+PHRhYm xlIHdpZHRoPScxMDAlJyBz zKftFH3pPq8qFWCnZOQweW xhcHNlOiBj d5ejJTLbAMmnZF7xgSfnV3 CjhIY4QYUuv8o5Ea42yMA+ UWReXLL3pIhmDNyeb479Wi Sav5kfCQC4 qIQlIIfrKPB2J62kb4S6KV HdTVDfVOE8cWZ3wE1yzYcp fdjrT6CjbFGeQmC5PQE8kW QgnW0eyVag clbrcW2cYmg+H91DMG6SGZ SDRM6MRif4A4YhLirlyLO+ RA39KHQzXN69oXLjgRCcz1 kraFu6XsYk NZSzKVX2rRycOTngd0ErQY RgE56dlKYlb6I0CHOwwJbs pPXjIgKozAE1hY5pHNnlcx vln1gljdkr Zgwuj6hdwk03qO83N39bIO aaORPrAPT7LRVuUIXxzCim ev8blA3eJr9+VPino4igy9 efrVa2FqRa FGWemoPltDmwMRB4q5ItYj 87M8AofRcxe8AtBlm9ae17 nTLaf1C3pNI2PAvxKXOnjK 8xGDlaYlP5 PLIkXwJweY05pTQvRThqRc 4loVamaEejKV3kTUMoisab GKHssY5gXBSraAGdiFrgBE 4wNTBpbjtm k297WsTlRVG2KKXuwMRfU1 TbbN6gCpZyXDDoYWVuL0Zm kIQiQTdpW096CNhcIrT1GL EsotRzJ4Df SOZbjLawNyX6y3Z3Zo0Si4 QqcdraXSG5PKivZHFuXfR8 QbLtVrM5N1GlCny7SVZsuE buUW1jT3It OMClxzqylmzinZO8DGCtAR MjuE51aNNcAZgwKt8fg4T2 j160MQWvRWMocW77Pj5zzV ogMTBwdCBU iN2doteuf9ozbeyhMzGnPE QjCEx4YYt2QLLosLgjAjHq DKC2IgN5RLK6gCThrJ1chI slqryflG1u Oyc+P21jgE4eHBE6NTO3jg ujJVHqomXzVO72MC99B9Jd PjwvdGFibGU+PGRpdiBzdH kpBI7nFcOv e4ngx6VpTSbuM1KhVLKxVY ryNnh9YMHgHFH2zEX0yP0j TZEaIMinz1G6lRN6Q7Axmn Mfsh5lh5kw EBOuMNrjA93jrRIxk3R8OO WvoSU8KHGnoDodQlEdiF14 Oyc+QITadMykr6JoCdyxa0 zpk6comTg1 PdUaYZUsfwJsvWbtBVM3e7 IrJt29Z76tRGhtMPAuQZKo CDXdJVLgzBrwup8svG7eNe 8+PGNvbCB3 fYQ5dB8lGVIuJeL0MXqxL3 35JhLkqYGuNplij5fyp8ab tNl4DyTpRZSicsHhwBysXQ B3u8MoSw50 D10rPEmgGDMxVEBjZCSqEH LfvShdkv2qmJ2mJw8+PC9j q9nsme60xD11rTD+PHRkIH A3qLstAKob SLFzmT8gBMboPjO4YVDmVw HdmB21vTOlVJizFo5eoQrb dVoyVO4fLHKthcany109Ta Iiw2eoQPCv oEYgSWdfMLW4U15gj5J6XQ TbZEJeJXP6rKR9mE9emWja bjogbGVmdDsgdmVydGljYW jbZFkyY882 IHRvcDsnPlBhdGllbnQgTm NlPOo7K6LhMhe1JZMorSjj VN3hoYPjFCseQj9grIqycG svSV0pIBLg nrusr126AfTzl0zbQLHnuG KdTHjbSRH2G01xk3H0EQNr JWDqUSH4lDW0mL9xbCcbul ogbGVmdDsg xuNtwJrtXLjeOPtqQ322KM RvcDsnPkJpcnRoIERhdGU6 CB88JA03gQHof1V1iIE5K9 BhZGRpbmct uvcioRU0NUXiDJDzpT19Xa 8quQnnPc5xXKIbTMN2FTYw sFRyF7ZawX9gXuIqIXSxVB KdS6FbnXAz LShfC380UAoaCgS7BRVpfk LhG5ZsSVHprRoyXdI5g9S4 Hf2GW1J2TE68VV54iQDgp5 K8eNS4U7Jl ERAssmmnhscudHU4VNMzWJ JbhO98Nj0pcAsjFc6vNRRz VCB5GLLrtEDbI6HyzS2aXz AjMDAwMDAw G8EgrZOhGKgdI756MWlrHu Y0FEBsatSmL6KqLLIecZkn IiA1s1L8Sp1RJYv4OO15FY 32nMSzg7B2 gTC2K1PlAUHpdxklfeltxK D1HWXtFKLpnS84Gd5xoUrf Or9rRHIzBZU6PODvtOUsV7 ZztQ9rTyKb ARRaXSMaW6RwkMZfXFjgC2 34JFhnLfU5VMUrxgSqO5Ji MMNccNfaVmG1m4X9Qg6PEQ PkBB34HLJ4 dLA7SN48ES23Y3AkHrssaL FibGU+PHRhYmxlIHdpZHRo ROwrBERkJxJegRqbKS8pIk 9yZGVyLWNv bPcxtTBmIeSdg8nhMWLnFV wmVZ7tnMhuM8PmdIG8DQGv v9l3Od50L82wU0EezYR+PG XpcYU0qKF9 tR7oDxLzEtZ7NYirZ767Bi IjkRMyKjqpn8ytg0twoLn2 InS8EIZkgcWbkPxiCLJ1b8 VoBi64V60z IHdpZHRoPSIxNSUiIHZhbG lmwf6fdD0nUh5+PGNvbCB3 oVI7bW2uYqJhTgE3EHqiI9 49InRvcCIv Nakqp8pes2bksUa4EhKxVO DbimGwkFndMWM8z4VnNe91 K2OfvNgkp9EgDig1kb19cT Emh9D0pDB3 X1JfZOMkefwkmRNbfNpvIN 7dBQMxqjbuEHRzzK7kVCLt L3m4UePpGcJ9FAncI4Bvtz H7JBXuhODc CMvoIQD8D14qc3F9YWWdDG KwRCH7fZM6xO4znNdnishr bGVmdDsgdmVydGljYWwtYW rlT707LAWq jPhiBZWdiE8aECLxhXLxqC bbWI8kYMZgxxicRv0FVU2h XNdOSQjPPtd2G1MlUuc3GO QemDptUD2r kSGeCYqhBf7axLxljWwyPG 7rQKOrpeheJVSqyZ5wEGPs dGLseKlaTR7iBEIigtxsl7 23LeQlNHT1 EBPilWPaX5TgzQ3bHgGkLN DtLZHuV8JiwGGnPFbvW670 NWwwDgT6URScfsAnN2VaXQ FsaWduOiB0 b0V2Fb1oAa4kLi3qIXTfLV 02UL38eHDsj9J0zJD4R1Ch EZCwigbbomqxaZB1BVNaCJ GtsW18iYWm GKhfRb3fj2X4p661FJIuIC PjyD93Xq7zxJpmPTPibVWZ vQ8qheaau9prfkzcBlOoID KhSHm8WTm4 IDSsnMytPzTaBWR1QgL9LR C7iFYkuP5gyHgcatvsiF5f Oyc+IRvcAXVqkjS4Q3OaVp u6PIYtiMqm KS1voZNcBUqhKl2fsYtqrT llOI4zZNGgxxnnBTFevU7l DPYkaAYheUuuGC3fQZWcbx jzf961EoUx YOK1WNSfuZTeZ0NveJ8jZt LwLFTiHXWmK8QfaTKbIQwf P983NCrxOwC9JYBnndVeT1 FsLWFsaWdu RvJ8g3M5Fd4JXUapPL14TR 67fIBdv0B9lXO0W3BrZTBo nujrvemjaMA1RVMdJSVszN 47cGFkZGlu Dr1ga3W5o240ZNItQHUyiF 19Wu3jeKylDKWbdIIBhB8h dxgkm6yqadjzElWpXDEhTO p9GRb1IXHo oIxzBxAmRJG5DuH9ZCH8fR YotT0yoFdmpznzsH6sUvy+ J5F2iYY4fUHxdDazzQD+PC 57rk38I5Xw ZbfbWny6WMPfRMU2tJB2cU 6cLOUlEZjmw6C8zOD2O8Zj evCihp6hr6jwKDJmZByrK3 3ebFKuv5D9 BNRmlRJ8LAFqlIjcDeYzaA 93Oyc+FFKwvQskr1SgOxly l0tng1adzWj0PtIpHOBkls FsaWduPSJ0 q2WqWs12U01zWGcfUSYdVS AtNETsMXMgqMeueq3oeY1v Ii8+PGSflDX3zTT4uD7sIv BqBpQ5ZRbq C867NzDgkOXjZnrak8qcy4 vvbZu4HmCoEOEyolJmyKvf OTK4z3DhGz07V1McqMpha0 SnGko8ae71 lXHrx8Z5oMH6N8GmGNOyhg dyuWFpoYjkRZ5aNLXqeuag AYHeyH1pUDObA9n9BtBrRs G9RQopY5Aj yxL5QYVljEJhWGFufNRZrK 8domsaj2kigjuhEpPpSZQi ZHb9EJa9EYOeuPjlDqFfPS B3TtF1HWX7 iGNvkS3pbBkqdgbtyX5qHi c+CDl6t0icrCBtRJ9vnFH2 WG37CC99mSKvl6J0tHQ9X7 BhZGRpbmct nqzmsMA2JOJnZVSeuL82Pw 1hgTzsIs7yIVXuERI8KNGf mKKkC9FjtK4nOfOfHQQqXE JoN9LknAYu YFwlM851KBdyLsD4LAQllv ChB4FbFGCfaAscFdP6n2E0 Zg3CWF83LV79BM69eTUgv5 V2bAG1E7Og KWZhxvugcwnncPD5WITrWT DdvJ60Op6mhSstIm1vLRXs CCZ3KLRudSNwY6LkyJ4nXk AjMDAwMDAw E6HkmHKoWAwgK973GBvdJo S5ILVpguXjR7EpVXMeqVxa RwI7f6A0Ng1AFp74QR04UM 12aKKlz8J1 iNA8O9WeSWMqifntrzdngY D8WPOjOCSyqJ66Nn3fgMxg Oz0dOQInLAV7OGWvtTViL7 SejC6fQvUr AFEnHHWjQ0ThoSUhMYzpC8 29KRzpAsK9HIBejhIxS4Ho IKBpaOklKjT5t6B1Fk2WTV ulolj9R2Vf PjwvdHI+SG03WRUzZV76vU CpvQOeo6iagJi9SaOjXDRq CQH7uDwpAUcye1ToNYFaR5 9stVRgd8R1 IGNv (more content not included)... Normal [facility] Consent for Procedure/Surger yon 04-06-2021 Consent for Procedure/Surgery [id number]#1. 00CD:127 Normal [facility] IntraOperative Documentson 1 IntraOperative Documents [id number]#1. 00CD:127 [facility] Pre-Certification Formon Pre-Certification Form [id number]#1.0 0CD:127 Normal [facility] Coding Summary.on 04-02-2021 Coding Summary. CD:[id number]:[id number] Gh 0bWw+PGhlYWQ+SH0SUOYpO 03zoMTegO9JD6qXES9IBKD VNPLPWD3VSP2tvQE7JIuqI 2VybiAv OikbvSOuJI11IHw3XPY0yB ufKBvfsK7fmOOrM9h2NpVo KN33pX85UXxgBCYjZqC5Ud ZpbjsgbWFy O6zaFlXrqDOdTkz+PHRhYm xlIHdpZHRoPScxMDAlJyBz rAkiLZ4tYm7yLADzCRZszM xhcHNlOiBj e1epXMZdQXrbUK3haOtlQ0 MgaTM4FLQsn4m1Dc11aJY+ RUQfJVX1vAokVIaut151Nw Ndw0jwDWN9 qZJfBQcnPJT0J59jo0J9UK PcZUBjOBO1mIU8wK9iwHit pjqvJ8AlyFIyKgK0NMQ2lH IydI1ciFjg eeoqxP1gZml+S65IXT2IFF ESCD5FLhr4V7UwNiaetMS+ ET17ZSFgOD62iWVauYJvr3 lkyZh5DxYn UMZiPNV4zUbdOKclz3MdKS XpK21rcPEyo8W7YPRynGsx kMTdThFniIL8yH6xEKcomi dvm5sqhsuq Pxylu7vate82dE50Z03gJN ulFHAqEWF2EBFkCWVozDyp fc4tiF2fEe1+PHcri1rbq3 groKj0OlHi WLPyjbNzfGdoAYW0y9RvZr 15Q5DmtJipl6UrOaa6oj05 cXDxj4T8fAT3ZTfzQEJfgD 0gTUnaVqE3 IWWfZwMiuW16uWIcJYdwAv 7tpBscgPksMZ6qVWQverqe XVDswY5vKEHvvGEycUpbWG 4wNTBpbjtm p840VrYyESI0VYMytQMkS7 QfmD1bUtWrRHGaFYVrL9Ny qBMfFUpiP976RTddYxA2VR OsvhYpL0Yn DGAmqWvlHgX5h5B6Ke6Te0 LxwkotVPC6JVasAKGpKwTx ImGrUdL0U9MjEba4UVKutL rtSU2mZ4Zj FAPjaicoielviOQ0SZMnSH DxiO09yCBsGJppFc8he0Q3 z408VJStHGAvgN83Yn0bvS ogMTBwdCBU iV1msvofn4halpxcTgFpFF KfFNk3SUj9FJAdjWxrMyIh OKC3RjM5IZJ1xAIeiP5thI lgjhugrR9i Oyc+P12ggR8qAYH3YHS5nv kpIKXejzGfPY91ZU15K4Wz PjwvdGFibGU+PGRpdiBzdH wqFA7hQyZn k2qht7VaMMfpU7BlQGYdEK llUhm8UWCoMME7aIX4yA7l INXjWPaig1L2gZT8W2Wbvx Ztyj3vl0zv ASVkBZljC58pfWWmz3S1ZZ OpiTN5AKOzwLoyWyJccA28 Oyc+CPSqmMrue3OmIpkzc4 jyg9qmwCk3 LjVnOFHesjFgaCfjVWI6h2 MzRt17F02lQJewDLHsBZXp CATdWNRetWjbdi1ejD0pFm 8+PGNvbCB3 uLB6bM9bKFXxHuP4GBvlL8 62EpByjZCyFifpo0frj7fz dKv6YdCjPHBsxgKavEnoRJ T0t9TfMc60 K10iRLneYQVhBGNwXNZlEJ VeoXdykb8ucH3oRt1+PC9j y9fgzs81bJ53yQI+PHRkIH M5rVjuRDhs IQYmwU0pKDusEqA2MPUpFf ArcG78zZOsQOhbFf7ceYjl hEawJD0cTQFfyxtph799Eo Zbh5bsVMRm yQGoWElnLQK1K12yl8I7BK HqKEVcMJY4yQA4bB2jlIot bjogbGVmdDsgdmVydGljYW feAQrhE602 IHRvcDsnPlBhdGllbnQgTm OkYMn8G0YwUja2JWBcnErg TL1ksGOgNEwfFo7zePaafM bcEG5mPXOp vvygk859DxNav1fhMCVjpZ AwKIprJSC0L39ro0V0MKGx YXFuVMN1jVP7oW9idYqwra ogbGVmdDsg qhRpaIskLTtjPZuvC169FT RvcDsnPkJpcnRoIERhdGU6 DG23HO53wGDyp3I1eNE3D8 BhZGRpbmct ezgosPY7BHOnNYDeiL39Og 7zkJriIa5bPTHnWMV0UKWs bVUqB1TseJ8vUlHmXCKeAN EdU9JolNMd TLkjY274HXjeHeX8BSDpwh PgV9KkQHQjqQnsOxY0f0I2 Mz4ZO2X2GR68RZ70wLHjb8 L5xJW7K6Kt AHAligaitsjyjBL8WKWoUY PcnB77Vk4ilBumMb5wRPEn XNA1ZWPngPJrI7UqwE9mTu AjMDAwMDAw D4KcnXFnYTboI937BYiqWl W5TGTlxmKzQ9NjBGHjbQwx QiW9r1Y9Ns4DUUh4AI25YE 98rXIha5U7 kAT9I5ScIOFwueomaubbkX V0NFGjEMObcD76Yd6lxYnf Wy8fCHOoGPH1WBCpmFJiJ3 TsyD3mQuKz EQUnILDuG3AuqEGjOGyjI1 11UIqgSaO5KIYlpaFzP7Dj JNQsfPpbPvQ6w6T7Rf0PLU WsJQ86WKS3 mCP2ER28TF03S0ChJhsrsZ FibGU+PHRhYmxlIHdpZHRo SZptHLZaUfNxrIwvNM8cQk 9yZGVyLWNv eDdopLAzUwEek9vmVEXfHI rsLH0ylNgmL9EinSR4AQRn v3v9Ni00T18yN5PgwSF+PG HhnNP4uCO3 qM6tUeJiQkQ6NAnwL498El ScwQKhNufuk1nov4xvnBh6 MjT9VSCpjfEeaCjlHBG1d4 OjOs02Q43g IHdpZHRoPSIxNSUiIHZhbG lqlz3upR2tNl3+PGNvbCB3 cWQ9sW6rZlAnXyP4LJsbO6 49InRvcCIv Yecgo9frd2hucAz0OxKkVU GhomBdgWajJAF5v1CxEw93 W5XfrNcwu2ZyZgb1uo22nT Brf5D7xZT5 U9WtITHpsfjseAEgoJymPO 6gFGTjskdnVYWinH3zZPGj N0c8MuZcKtB0WDlaD2Wlvt Q5FQXorKBp HNaxRFI7Q76oo1D0HGRcCC FbXBZ8yZI6mU6xtCcilmlo bGVmdDsgdmVydGljYWwtYW lvI065NIWh dBxeVUGpaO3wAHRtiUIeaS qtEW6aIDXchmlkNd1QEY3w MIpDUZmCHzf0E2ZiVzo4XN SvnXesMV7l nYYuDQcwDm2enCfmrQecEX 4pOEWgrvwwMDLjzQ1yHAZy uYWdeOhbNI6fKSCqjwvxm2 14PvMvNCV8 KLTeyNCcK9MjrN9hOrRhRR KvHYPfJ0ApeQXuBTaqR478 REjxJxL6LOQnoaKdO7FbRK FsaWduOiB0 k2C9Mh1lTk9mVc6nEVTbCN 10IP20eYYaj7D2yYE4W8Zy DVWzgrvjdexqhSS7ARAeHM WewE53cIVs UBaqLb2gk9U2f829PDJfUN FppH94Lr5crEyiYSTlxFMH yU5nwhjhv6icbyspCyZxEV DkGCc6QKi6 IJOkmFjnVaXnWBK0XpS0HM M5dFRteV8wkEysokurkK1j Oyc+GZluWHRkiwH9G8FpXn h8SLDpmStc RJ7uwMZyAXgcKz5sfPdxyG ehZA8lIOMgyzjuWFQfyJ1x JDVkvFEjtTaaIR4pWSQfnm hpl353PrTl QIF8OBMatUWfL6WfnJ6sUs LrGBLfYPXvZ4IisVJcNGmb W993YKjtHaJ5KSEqaeWwW6 FsLWFsaWdu PjG5d6O0Bl7NUBmkKF19XR 00jFSgb9J9cCP5H4BiFHFz rqlshgwuiCH1LZVnMEFfcO 47cGFkZGlu Yh6sl1Q9n535EQBsMWLhoI 76Kk6rxKqhTCHvrGBMwN2x jzrkr9rgnxlyEhHxLCXqLT x4XOj5NBOc rFueWeItYRG4BxU5IOZ8qX ForG5qoNoslhozhL6mEqb+ A7J4bFE3hWYogAzsfKU+PC 63va70U2Tl IfyhUgi1MLWsCWG8rOA9rN 8yMUOuNJgzm0L6aMT9L7Lm niFczx8se0mtRSJqJVlvW8 3kiBAqx7X7 FFOelFG2LFBpdHleTzDubP 93Oyc+GJBlpLfej9TzNgxh y1mbo9bveIw6KvAsBZXgfv FsaWduPSJ0 t6FsVe73P32lVUwvNAFuWP HpBPDbOFMylWsuva5frU7w Ii8+WXLxxRZ4xTN6kH0gVz RsHxS4IAju S215EsRbzXTeUxnuy5pun1 uycEd3WeJbDWBjtqGmxHek XPC1t0MzAm13J3YtvCjlt5 WzWgs8ng57 jZRnu6A8xOA2V6MlPCVvfr eraRGznFtzUD0jMIMjmqkk UAYzqG8bXQNeR1o2AuFqXo E7WVkhL0Ba cdT3NLXndVKzVOThgPWIrR 5otadhq7mwcurhHxFzZCDp WPz9ETt0MXAceRzjKcArMQ L8XkV0ZRP7 hGEkcU1xwZamdadvbA6qTf c+GWu3g3yxbLYdYN5ojNK1 IB45BF87nLCqa3G1mCE3K5 BhZGRpbmct sajpfAL4TTVlQZJwaY76Xj 9ytFtkPd9mHSJfCAV1QCLy uEMjT4ZkkJ1jFkQiXSUjVE LeR0HydTVt ONotB281YIsdWiK2DABmjb McM2XrZZKlmOhuGhQ3j7O6 Fk8BAB99ZC61RN79zRNud7 N4jKS9E6Cn WFHjznyznpjukPL5FQDvGG UfrJ84Qr5thTypAe6uZJEr USB6EQCphNGeC5KeoT6dWp AjMDAwMDAw G3KbkTObTAboS047RGfqVc P8VAXnmzCxT8CxQOVutJhw JkV3m7T0Xq4OZt14OL85XS 45pSWbk9W3 bTW9P0FfPSAuoorjlrxwsJ F1ICDgXOQtnE62Zr0cdIkj Lu5hYAIaWBD9KWIwaWUnM8 VvzT5oPdOd UKAtXTPlV7UccIFzWRkaH0 04EZgcHhM0FIYtqaAvX4Yv IXRcqJxtDoG6l5M0Um2RCL higox8F7Dj PjwvdHI+UT81TRIeNU22qO CibBZwq8ighDq0OhKhFNTf HSL8sSrlQFnsx0PlPFUgX0 6foZYcu6E7 IGNv (more content not included)... Normal [facility] Consent for Treatmenton 10 Consent for Treatment [id number]#1.0 0CD:127 Normal [facility] IntraOperative Documentson 1 IntraOperative Documents [id number]#1.0 0CD:127 Normal [facility] Main OR Intraoperative Recor don 04-01-2021 Main OR Intraoperative Record IntraOp Document Type FTURO Summary Primary Physician: Lino Ansari Jr., MD Finalized Date/Time: 04/01/21 14:49:37 Pt. Name: RIC SANCHEZ/Sex: 1960 Male Med Rec #: [id number] Physician: Lino Ansari Jr., MD Financial #: [id number] Pt. Type: O Room/Bed: / Admit/Disch: 04/01/21 14:14:58 - Institution: Case Times FTURO Entry 1 Patient Times In Room 04/01/21 14:35:00 Out Room 04/01/21 14:48:00 Procedure Times Start 04/01/21 14:41:00 Stop 04/01/21 14:44:00 Anesthesia Times Last Modified By: Stew BAUM, Rissa Lawson 04/01/21 14:48:36 Case Attendance FTURO Entry 1 Entry 2 Entry 3 Case Attendee Elan Peterson MD, Lino Mathias RN, Rissa Bullock [facility], Светлана Philip Role Performed Surgeon - Primary Textile Colorist Dyer - Primary Scrub - Primary Time In [...] Out Complete 04/01/21 14:44:00 Last Modified By: Risas Mathias RN 04/01/21 14:45:13 Case Comments Finalized By: Rissa Mathias RN Document Signatures Signed By: Rissa Mathias RN 04/01/21 14:49 Normal [facility] Main OR Intraoperative Record IntraOp Document Type FT Summary Primary Physician: Lino Ansari Jr., MD Finalized Date/Time: 04/01/21 10:59:15 Pt. Name: RIC SANCHEZ/Sex: 1960 Male Med Rec #: [id number] Physician: Lino Ansari Jr., MD Financial #: [id number] Pt. Type: A Room/Bed: [facility] Admit/Disch: 03/25/21 11:46:55 - 03/25/21 18:05:00 [...] Anesthesiologist Surgeon - Primary Scrub - Primary Mold Car Pusher Time In 03/25/21 14:43:00 03/25/21 14:43:00 03/25/21 [...] Nadia Dixon RN, Alba Ibarra Role Performed Textile Colorist Dyer - Primary Candy Vendor Sodder Time In 03/25/21 14:43:00 03/25/21 14:43:00 03/25/21 14:53:00 Time Out 03/25/21 15:43:00 03/25/21 15:43:00 03/25/21 15:43:00 Procedure CYSTOSCOPY RETROGRADE CYSTOSCOPY RETROGRADE CYSTOSCOPY RETROGRADE STENT INSERTION(Left), STENT INSERTION(Left), STENT INSERTION(Left), CYSTOSCOPY W/ HOMIUM CYSTOSCOPY W/ HOMIUM CYSTOSCOPY W/ HOMIUM LASER(Left) LASER(Left) LASER(Left) Comments Student : Christa Michael present during procedure Last Modified By: Aric BAUM, Nadia Corbett RN, Nadia Adnerson RN, I 03/25/21 15:52:59 03/25/21 15:52:59 03/25/21 [...] Text: Im (more content not included)... Normal [facility] Main OR Preoperative Recordo n 04-01-2021 Main OR Preoperative Record Holding Area Document Type FTURO Summary Primary Physician: Lino Ansari Jr., MD Finalized Date/Time: 04/01/21 14:40:21 Pt. Name: LAURARIC/Sex: 1960 Male Med Rec #: [id number] Physician: Lino Ansari Jr., MD Financial #: [id number] Pt. Type: O Room/Bed: / Admit/Disch: 04/01/21 [...] 14:24 Rissa Mathias RN 04/01/21 14:40 Normal [facility] Operative Reporton Operative Report Patient: MARTÍNEZ [...] well and was subsequently discharged home. Normal [facility] Comment on above: Result Comment: Elec tronically Signed By: Lino Ansari Jr., MD\.br\Date and Time Signed: 04/01/21 14:48 EDT Calculus Analysison 03-31-20 Calcium oxalate dihydrate Infrared spectroscopy (Stone) [Mass fraction] 20 % Invalid Interpretation Code [facility] Comment on above: Performed By: #### 1 [id number] ####[facility] [address] [place] [address] Calcium oxalate monohydrate (Stone) [Mass fraction] 80 % Invalid Interpretation Code [facility] Comment on above: Performed By: #### 1 [id number] ####[facility] [address] [place] [address] Color (Stone) Brown Invalid Interpretation Code [facility] Comment on above: Performed By: #### 1 [id number] ####[address] [place] [address] Composition Comment Invalid Interpretation Code [facility] Comment on above: Result Comment: Perc entage (Represents the % composition) Performed By: #### 1 [id number] ####[address] [address] Disclaimer: Comment Invalid Interpretation Code [facility] Comment on above: Result Comment: This test was developed and its performance characteristics determined by [facility]. It has not been cleared or approved by the Food and Drug Administration. Performed at: [facility] [address] [place] [address] [place], [place] [id number] [id number] MD Maria Elena Trotter Performed By: #### 1 [id number] ####[facility] [address] [place] [address] Laboratory comment Gordo (Report) Comment Invalid Interpretation Code [facility] Comment on above: Result Comment: Phys ician questions regarding Calculi Analysis contact [facility] at: [phone]. Performed By: #### 1 [id number] ####[address] [place] [address] Please Note: Comment Invalid Interpretation Code [facility] Comment on above: Result Comment: Calc kat report will follow via computer, mail or straddle buggy operator delivery. Performed By: #### 1 [id number] ####[facility] [address] [place] [address] Size (Stone) [Entitic vol] 2x3 Invalid Interpretation Code [facility] Comment on above: Result Comment: Mult iple pieces received. Dimensions of the largest piece reported. Performed By: #### 1 [id number] ####[facility] [address] [place] [address] Specimen source subject Nom Comment Invalid Interpretation Code [facility] Comment on above: Result Comment: Not provided Performed By: #### 1 [id number] ####[facility] [address] [place] [address] Stone Photo Comment Invalid Interpretation Code [facility] Comment on above: Result Comment: Phot ograph will follow under a separate cover Performed By: #### 1 [id number] ####[facility] [address] [place] [address] Weight (Stone) 14 mg Invalid Interpretation Code [facility] Comment on above: Performed By: #### 1 [id number] ####[facility] [address] [place] [address] Formson 03-31-2021 Forms [id number]#1.0 0CD:127 Normal [facility] H&P Updateon 03-31-2021 H&P Update [id number]#1.00 CD:127 Normal [facility] Coding Summary.on 03-30-2021 Coding Summary. CD:[id number]:[id number] Gh 0bWw+PGhlYWQ+AR0GULUyJ 29miNAsdC0RR8oFPQ3XFSU DJIHDBX0VEB9qrGS7VOrzJ 2VybiAv LpkipVJnMC83JIr9TAJ1gB lyXJyfeQ9ckIBgD1b7PkGu TX23eD48AKcbJSJnPvN8Ec ZpbjsgbWFy B0crYrOxrNSjKcu+PHRhYm xlIHdpZHRoPScxMDAlJyBz xJeeFU5yQh6nHPPtCMNyvX xhcHNlOiBj z1wiSPXsOIgkWZ5ugKpbK2 DmyHP9NCWlq1y8Xy85vIK+ YPEmLNE1oPpaBZvyw633Xu Dng8izIOQ0 vGOcFIwuLRR1F11du2Q6BV TeJIJuGEG3nMR4uZ9fhNmj enehJ4VpyMHeOqI2ZDX8gT TbaZ2kqZrb tztecQ9uJct+Q18RXM4UAL MGWP5WKhx3H6RePmbizUU+ SC53MKOcDB42lYLdcDSwb5 clyZf1LiQm USLaHYZ1tAqgMYzpr2NwLI AmU71wtZVcc1P6KFDtoUfc iFZgDhWlcCU5wG0hRGatxz ilh0rscwyw Dwfok3gxha39pX52T16jOT dtPFQlAJP2NJVpLJCupRdx pm3xiG3hMm0+UGnsw0tag7 menXs4JmYq DKWddcEnwZnbVSS7t9WbGa 13U7CbyVnty7YfZvj6ny85 tWSut4Q2wZK3LViyARRwrI 0zBOnyBtC5 GFPfVtRakQ85qCTqTEemLb 3mqElltVelVU6zQCDmnebl FRAgmW7nHXZdpWBxmXfoHJ 4wNTBpbjtm s965ZsQsDKO0HOMzsJUkA5 PtbY8tVdVxHURmESNoI7Uw rVVbHOhtS197ROubYdW2XQ TfpmTgN5Rq HIIckBovVuQ8g1W4Lk1Gw0 HzawjnJQL1PRywUAKjWaE2 QcSyKmY4G3TtFyi7XRYvdM jhCW1dG4Sm JDWwtfpjeitzsZX2EGCgLC RnuQ56vAIpOQfaCw1qg7M5 z132UPOmOREnsT66Dy7mnJ ogMTBwdCBU hI2wlmzdj3ammpsaGlLrKG WfWVe0VAr0FIQtvLpzTcZx WII4WvQ1AJR2yQHdiA5lbA gndtgynN1d Oyc+Z83tbC1eEDU7GRJ9pf wbFWIiosGmJI15XN75J7Vy PjwvdGFibGU+PGRpdiBzdH mcWQ0bWdLy n8leu8CcZDniP6RgAWWuLV vsXep7QTErDKI7lWX4qF3j NGFrNGucl1X1nMX7X9Usqp Rqfk9rw2pq QSRwLOfpD04tzXEuz4Z3KR SmvSK0ORHhpVsgMoVrmG59 Oyc+VABpfBfrz2WgBpprw8 hts3yslTw8 FaRwTBIcbnRvbUyqZCZ8w0 IaFn99I11zNBvqZAIxXJDa UVMcLWKckYlugv9rkC5nWt 8+PGNvbCB3 gZH5gI5yWQPvVjJ8FMxmS6 30CqVyaEXcLikui2ojp4fh dBx8IbAqKXXzmlDkpXdwWI U6a5JzXw46 E01bAKziDBVeNVRcBIUuQM SlkUgceu4ipR6sRc8+PC9j m8jzvv99jB10uNT+PHRkIH B6vDqpZMul HMSgqJ6cZVlnBxI6QBAfYj OvgG17iYEwWNwlZt1ozFkk cHxuIF2pKKNnmjvnh124Im Uik4sxDNPb dJAjDQobTMY8B83zb5A8EU QrAVEpWYH4nEA9lQ7fjAhp bjogbGVmdDsgdmVydGljYW ynXGmfR887 IHRvcDsnPlBhdGllbnQgTm GcZNs1R3DdBtu0IKBywNhj AE0knMNxICtlPu5maZyeuU rxXD1sURPb ncmqk331KcBgo0xaKFOecS GpWDxhCJX2O86gl0F8EWYs RLDuIPK2uCL3tZ2ydIkxrj ogbGVmdDsg iuDkoQlcLWefAClkO673CA RvcDsnPkJpcnRoIERhdGU6 NA00XK17qADik7J0aSD4H7 BhZGRpbmct opmzvIP0JIFzMKAkqG99Xe 4aoWtlBk5eLCEnBHG8UOHq aHNvH9XrkA1zKxWtTOGgNL AeN7KcvHRl JPteY778OAvsUfR8RAEphi PlU7HkCXTwzDkdZpG5y6M0 Wb8PS6Z2SY05VC68dOKzc1 K8lDD0V5Yz DZLylyjgxwlwnDP9SKRoXK MdiB18El9zeNugIt6eCIIw GPZ0TJWyiYDuG7BsqF3vLb AjMDAwMDAw J0NcnEJlQVrdV464OHbiVl S8KBEsfdFyI7OlGVVsgKmj KuS5h1I9Vg8YMWs0ZX07UK 50iWWqf2T8 yTU0B7IdSITzqmlxeulvtP E2TIFtLDNztQ37Ud6lnSvk Jc8vANDwIMG4HUCvrSQoN8 GirA6sUoFm HZAdWPMhA5AnaEYxBYkbN7 38QXpgPyW2OQZicxHvC8Tb RJXmzKdmChP3f8U4Po8RUO KhRE53UIJ2 qWY8BL15DB45L1ZqOkqwiX FibGU+PHRhYmxlIHdpZHRo RWjvQZYvEcOriMzrXZ6pAl 9yZGVyLWNv qOtmaBMbZfQrt5jqOSSgZP vnPW2npBgxD6YceQB2VDXa s7u8Sc70M85xH1RomEW+PG HdfQQ3gKS3 mC6oZaAzJwX1CUgeY423Ks JjbSLxPhize7lfm4xflPn1 LoY4FYZvomZnvVisXRG4f2 VoUi86A44k IHdpZHRoPSIxNSUiIHZhbG vgap9koC8sJg9+PGNvbCB3 hMZ6tV8jEaSqCjB1UXeaW9 49InRvcCIv Tqcga7zwv5aafMy4FcEbMH PennZmqSnsQMQ9k9ZpPu40 Q7FrsYahm9HqFng3ny10yI Fvj5J1jTS2 A0AkSSBqiljzxHSmcIvdSF 7tUABncrotDGKpvP7oAWXu W6p3DpCoCvV4QJavR7Cvsc O9HZErqDGj IMpeYED0X24jk5D6KFNlMU QnSZD4sIW5qK7jlJftlohi bGVmdDsgdmVydGljYWwtYW vzC609BMCn xSgkCCUixL3lICKbeAFqrL usMT2yXQVctkhoZb4UFE1i RJiJGRvBYgg4L7GcZwg5MV WhxNbmBO2a zIFeLXnySw5lxCwstUdpRH 7mTPPlwyekPKWepF8eZRVg tMFupFtrTQ8fEXYvdmdvj1 12MkHjNTH0 CGOujWUyQ2GihT4fXaPdJQ KdBMTlE5LqhLGrYPmpJ063 VSkvWcR3SNFddtJvD0XxWB FsaWduOiB0 o0J5Bc0jAn0jGm3fVXBxRZ 13TV58fCVhf5B5uDF1S8Km LYXypxwjrlkorTQ8JYGfVF MuwQ08cHAw UNszCp5yy4J5u450ZZRvJA OawE57Yl9rmIqjHWBflOIL uT0adhmza6nspixrErUvQC ZfPJc0EZi0 TWFidXoqQcEyOLI2WdH7PC H9gSQpfT8fwOaditfjuM5l Oyc+BYrhLWPoazE3U1PhBe w2UTHmiHzz RU1jgJBkALtyLt8ekJnitJ gaDY1vHPWcencsWTHwqW5f LTLgtLSuqZooPU2uJUXknh kic991MdYf TNT7CJDkmYSwQ3LjsZ4sBy MvRMYdNYCnU8RgnUCqARho S983BGmiJvI6URVpukBvE9 FsLWFsaWdu QmG1w7C5Mt6BUXznFB19DI 31iHMtu5B6vJD4I9ZvLCRw feauywoqnZP7FXRaPKFugE 47cGFkZGlu Ui6aj1O9u317PDKvLKSgoH 65Tj2ftVhgYVHljHLAvB9f ahadt7zhyirqQmHfMPDxFT u7OKi4VURq yJhtPxBqFOE9UlJ5HAG1iZ UfrH6qiMbmemnwwW9pDku+ JG9wpDtqhH2elU5OIK7kSC RheSBTdXJn OSN0AD30KP72X3ObEggqrU FibGU+PHRhYmxlIHdpZHRo JAlbPMGjZpZglPhhRJ7nPz 9yZGVyLWNv dYdrtNBhAlAcz3wnOAQzOI uyXI1duQvkY8QfqEJ3SLNc e7q6Sz21G01nK3EwpBP+PG CqeRF9fOS4 uE8wMrCwAqW1ILaaM830Ed FpbAZtXneqp8ioh7epxUv5 RsMvRAGfvqGwlKjxWYZ3n3 RxNl72O72n IHdpZHRoPSIyMCUiIHZhbG qzek5cfG4rRy1+PGNvbCB3 kTU4mW6uOkWlGqG5PJchI5 49InRvcCIv TvbzF89vE1XvjMY+PHRyPj j3IKEuzRixUF6bpKMkSKki Wc8sLVE5HdYmUzFkWDfyJ7 BhZGRpbmct ugayoGO2CUTdNLBnnR64Cg 7lwYxvYu3lWRHkGZX5RNPf bGRmK3FhvZ2fEhNnAYUfVY GqK3JmcCNa QLxqT361CXyvCtV8RYFgvr JvJ7EfGQBntVstJoV0e7E5 Zj0AlEyorGWgFV9oZkVdCG v4Y1DkDtz1 VKDoaVyvGG3jiRFjUYbuVu 9atVbbxGhcPP3bNSBxcdhj s345MsVdy5lqIZScnDPrXT xxCHL5H14t i7H1ZZIzHWIyQPT0zWC2zR 1hbGlnbjogbGVmdDsgdmVy bXbgRFqaEZueU381GPQjrZ snPkZJTjo8 C0GcJrd5QZKctGnkOE8bjL ArUVcgDk6ypAwovTlkVB9h VNKlkzqrz022ZtJvb5rmCA EwcHQgVGlt UNZ8K37uc4H7WQEyTAUhFM D4gZW1lV7riIddkezqwXVv dDsgdmVydGljYWwtYWxpZ2 46IHRvcDsn Nm5FVmf2C0MmHvx3BFKdoM bkAC4ikQCxQYltZo5vrNyw iVplNZ2fIAEqssjje548Mh Ufd0jeLVYh oKCvEDnyMXG5U78gi4I4YM VjWHZlAAO5lSP0sQ0wfWfh bjogbGVmdDsgdmVydGljYW rcPYpzJ329 IHRvcDsnPlBheWVyOjwvdG Q+SY20hi34Z2JmQqlqXxv9 YKTsJOK2sAZ0uQ2vYODsTK txc4V2oSC3 J2Jv (more content not included)... Normal [facility] Postoperative Documentson Postoperative Documents [id number]#1. 00CD:127 Normal [facility] Pre-Certification Formon Pre-Certification Form [id number]#1.0 0CD:127 [facility] Progress Note-Physicianon Progress Note-Physician Patient: RIC SANCHEZ Age: 60 years Sex: Male : 1960 Associated Diagnoses: None Author: Deniz Chan MD Postoperative Information Post Operative Note: Post Anesthesia Care Unit. Anesthetic utilized: General. Health Status Allergies: Allergic Reactions (All) Severity Not Documented Baclofen- Unknown. Celecoxib- Unknown. Iodine- Unknown. Problem list: All Problems Anxiety / SNOMED CT 26573700 / Confirmed Physical Examination Intake and Output adequate hydration Measurements from flowsheet : Measurements 03/25/2021 12:34 EDT Height/Length Measured 177.0 cm Weight Measured 85.5 kg 03/25/2021 12:25 EDT Height/Length Measured 177.0 cm (Modified) Weight Dosing 85.5 kg [place] Body Weight Calculated 72.276 kg (Modified) BSA Measured 2.05 m2 Body Mass Index Measured 27.29 kg/m2 Weight Measured 85.5 kg 03/24/2021 8:35 EDT Height/Length Dosing 178.0 cm Weight Dosing 84.0 kg 03/24/2021 8:35 EDT Height/Length Measured Date\Time Correction Height/Length Dosing 177.8 cm [place] Body Weight Calculated Date\Time Correction Pain assessment: [...] discharged from anesthesia care. Condition stable. Normal [facility] Comment on above: Result Comment: Elec tronically Signed By: Dustin PARDO, Deniz\.br\Date and Time Signed: 03/29/21 16:40 EDT Consent for Anesthesiaon Consent for Anesthesia [id number]#1.0 0CD:127 Normal [facility] Consent for Procedure/Surger yon 03-26-2021 Consent for Procedure/Surgery [id number]#1.0 0CD:127 Normal [facility] Discharge Instructionson Discharge Instructions [id number]#1.0 0CD:127 Normal [facility] IntraOperative Documentson 1 IntraOperative Documents [id number]#1.0 0CD:127 Normal [facility] IntraOperative Documents [id number]#1.0 0CD:127 Normal [facility] Preoperative Documentson Preoperative Documents [id number]#1.0 0CD:127 Normal [facility] Capillary Glucose POCon 03-12 Glucose [Mass/Vol] 134 mg/dL High 55-99 [facility] Comment on above: Performed By: #### 2 [id number] ####[facility] [id number] [place] [address] Consent for Treatmenton 03-12 Consent for Treatment [id number]#1.0 0CD:127 Normal [facility] ECG 12-Leadon 03-25-2021 ECG 12-Lead [id number]#1.0 0CD:127 Normal [facility] Immunization Recordson 03-25 Immunization Records [id number]#1.0 0CD:127 Normal [facility] Inpatient Patient Summaryon 03-25-2021 Inpatient Patient Summary [address] [address] [facility] Clinical Discharge Instructions PERSON INFORMATION Name: RIC SANCHEZ PHYSICIANS Admitting Physician: Elan Peterson MD, Lino Goodson Attending Physician: Lino Ansari Jr., MD PCP: CHRISTOPHER PEARCE DO Discharge Diagnosis: Hydronephrosis with renal and ureteral calculus obstruction Comment: PATIENT EDUCATION INFORMATION Instructions: Nppg-Owel-af Utereroscopy,Lithotrip sy, Stone Extraction, Stent Placement (Custom); Cystoscopy; Post Op Patient Instructions - FT (Custom) (Custom) Medication Leaflets: Follow up: With: Address: When: Lino Ansari [facility], [address], [place] [address] Business (1) Within 1 week Comments: My office will schedule cystoscopy with stent extraction. MEDICATION LIST New Medications [id number], [address], [place] [id number], [phone] acetaminophen-oxycodon e (Percocet 5 mg-325 mg oral [...] Tablets By Mouth every day. Comment: Normal [facility] Main OR PACU I Recordon 03-12 Main OR PACU I Record PACU Phase I Document Type FT Summary Primary Physician: Lino Ansari Jr., MD Finalized Date/Time: 03/25/21 18:09:07 Pt. Name: RIC SANCHEZ/Sex: 1960 Male Med Rec #: [id number] Physician: Lino Ansari Jr., MD Financial #: [id number] Pt. Type: A Room/Bed: [facility] Admit/Disch: 03/25/21 11:46:55 - Institution: Case [...] I Outcomes Met? Yes Last Modified By: Anabeal Yeh RN 03/25/21 17:33:08 Post-Care Text: The [...] By: Anabela Yeh RN 03/25/21 18:09 Normal [facility] Main OR PACU II Recordon Main OR PACU II Record PACU Phase II Document Type FT Summary Primary Physician: Lino Ansari Jr., MD Finalized Date/Time: 03/25/21 18:08:49 Pt. Name: RIC SANCHEZ /Sex: 1960 Male Med Rec #: [id number] Physician: Lino Ansari Jr., MD Financial #: [id number] Pt. Type: A Room/Bed: Admit/Disch: 03/25/21 11:46:55 [...] By: Beatriz Blankenship RN 03/25/21 18:08 Normal [facility] Main OR Preoperative Recordo n 03-25-2021 Main OR Preoperative Record PreOp Document Type FT Summary Primary Physician: Lino Ansari Jr., MD Finalized Date/Time: 03/25/21 15:55:27 Pt. Name: RIC SANCHEZ /Sex: 1960 Male Med Rec #: [id number] Physician: Lino Ansari Jr., MD Financial #: [id number] Pt. Type: A Room/Bed: Admit/Disch: 03/25/21 11:46:55 [...] Nadia Corbett RN, I 03/25/21 15:55 Normal [facility] Monitor Recordon 03-25-2021 Monitor Record [id number]. 00CD:127 Normal [facility] Operative Reporton Operative Report Patient: MARTÍNEZ SANCHEZ Age: 60 years Sex: Male : 1960 Associated Diagnoses: None Author: Lino Ansari Jr., MD Postoperative Information Procedure: Hydronephrosis with left ureteral calculus Date/ Time: 03/25/2021 15:42:00 Preoperative Diagnosis: Hydronephrosis with renal and ureteral calculus obstruction ([id number]-KV N13.2, Discharge, Medical). Postoperative Diagnosis: Hydronephrosis with renal and ureteral calculus obstruction (GFX09-GI N13.2, Discharge, Medical). Performed by: Lino Ansari [...] the lab for chemical analysis. A 6 Guinean double-J ureteral stent was then placed over [...] FACS. Specimens Removed: Ureteral calculi. Prosthesis: 6 Guinean double-J ureteral stent. . Estimated Blood Loss: 0 ml. Complications: None. Anesthesia type: General. Normal [facility] Comment on above: Result Comment: Elec tronically Signed By: Lino Ansari Jr., MD\.br\Date and Time Signed: 03/25/21 15:50 EDT Outpatient Surgery Discharge Instructionon 03-25-2021 Outpatient Surgery Discharge Instruction [place] [id number] Patient Discharge Instructions PERSON INFORMATION Name: RIC [...] Follow up: With: Address: When: Lino Ansari [facility], [address], [place] [address] Business (1) Within 1 week Comments: My office will schedule cystoscopy with stent extraction. Pharmacy Information: [facility] You may receive a survey from [employer] asking you to rate your care experience. Your feedback is important and will help us understand what we do well and how we can improve the quality of care we provide to you, your loved ones and our community. It?s an honor to serve you. Thank you for choosing [facility] HERE ARE THE MEDICATION CHANGES THAT OCCURRED DURING YOUR HOSPITAL STAY New Medications [id number], [address], [place] [id number], [phone] acetaminophen-oxycodon e (Percocet 5 mg-325 mg oral [...] day. PATIENT EDUCATION INFORMATION Instructions: [facility] [place], [place] Post-operative Instructions for Stent Placement There [...] other reasons. 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 Normal [facility] Patient Education - Texton 1 Patient [...] including vitamins, herbs, eye drops, creams, and uvmj-fdv-gieauth medicines. ? Any problems you or family [...] tells you to take them. ? Taking flxn-oek-visyaji medicines, vitamins, herbs, and supplements. ? Follow [...] these instructions at home: Medicines ? Take ejur-mlx-levozcz and prescription medicines only as told by [...] yellow. ? (more content not included)... Normal [facility] Progress Note-Physicianon Progress Note-Physician Patient: RIC [...] selected or recorded. Procedure history: Hip replacement ([id number]). Social History Social & Psychosocial Habits Tobacco [...] review: No qualifying data available . Plan [place] [employer] Anesthesiologists (ASA) physical status classification: [...] and lungs, allergic reactions, and .. Normal [facility] Comment on above: Result Comment: Elec [...] MD, V. Transcribed by: LOUIS Technologist: HARRIET [facility] XR Urography Retrograde Left on 03-25-2021 XR Urography Retrograde Left Exam Date/Time: 03/25/2021 15:43 EDT Reason for Exam: Kidney stone Report IMPRESSION: LEFT URETERAL STENT PLACEMENT. CLINICAL HISTORY: Kidney stone COMPARISON: 03/25/2021 12:28 PM. FINDINGS: 3 digital spot images of the abdomen were obtained in surgery. Initial emt p image shows a tiny left renal calculus [...] Dose: Ka,r in mGy = 465.9 Normal [facility] Consent for Treatmenton 03-12 Consent for Treatment [id number] 0CD:127 Normal [facility] Outside Recordson 03-24-2021 Outside Records [id number]. 00CD:127 Normal [facility] Physician Orderon 03-24-2021 Physician Order [id number] 0CD:127 Normal [facility] RAD - MISCon 03-24-2021 RAD MIS [id number] 0CD:127 Normal [facility] XR Chest 2 Viewson XR Chest [...] Kidd MD Transcribed by: LOUIS Technologist: MAJO [facility] Anesthesia Recordon 12-31-19 Anesthesia Record Patient: MARTÍNEZ SANCHEZ MRN: [id number] Age: 60 years Sex: Male : 1960 Associated Diagnoses: None Author: Frankie PARDO, Sergo Jewell Procedure Time Out [place] Protocol: patient identity verified, site verified, side [...] Diagnosis: m16.12 Postoperative Diagnosis: m16.12 . Normal [facility] OR Nursingon 12-30-2020 OR Nursing Normal [facility] PACU I Nursingon 12-30-2020 PACU I Nursing CO NA PACU I Nursing Record Summary Primary Physician: Quentin Ramirez MD Finalized Date/Time: 12/30/20 12:49:47 Pt. Name: RIC SANCHEZ/Sex: 1960 Male Med Rec #: [id number] Physician: Financial #: [id number] Pt. Type: A Room/Bed: / Admit/Disch: 12/30/20 [...] Case Attendees Entry 1 Case Attendee Janell Luceor RN Role Performed RN Last Modified By: Janell Lucero RN 12/30/20 11:14:22 Finalized By: Mendoza Soto RN Document Signatures Signed By: Mendoza Soto RN 12/30/20 12:49 Normal [facility] PreOp Nursingon 12-30-2020 PreOp Nursing CO NA PreOp Nursing Record Summary Primary Physician: Quentin Ramirez MD Finalized Date/Time: 12/30/20 09:42:21 Pt. Name: RIC SANCHEZ /Sex: 1960 Male Med Rec #: [id number] Physician: Financial #: [id number] Pt. Type: A Room/Bed: / Admit/Disch: 12/30/20 [...] By: Fernando Zimmerman RN 12/30/20 09:42 Normal [facility] XR Pelvis 1-2 Viewson 2020 XR Pelvis 1 or 2 Views EXAM: XR Pelvis 1-2 Views HISTORY: Postoperative COMPARISON: None. TECHNIQUE: AP radiograph of the pelvis. FINDINGS: There is a left total hip arthroplasty with surrounding postprocedural change. Hardware is intact. Alignment is within expected limits. Partially evaluated right hip is unremarkable. IMPRESSION: Left total hip arthroplasty, as above. [facility] thanks you for the opportunity to care for your patient. Workstation ID: [id number] FINAL REPORT Dictated By: Latonya Hampton MD 12/30/2020 13:05 Assigned Physician: Latonya Hampton MD Reviewed and Electronically Signed By: Latonya Hampton MD 12/30/2020 13:06 Transcribed by: CRISTINA 12/30/2020 13:05 Technologist: SARAH Normal [facility] Comment on above: Order Comment: Posto perative, s/p JENIFFER Basic metabolic 2000 panelon 12-16-2020 Calcium [Mass/Vol] 9.6 mg/dL Normal 8.5-10.6 [facility] Chloride [Moles/Vol] 103 mmol/L Normal 98-107 [facility] CO2 [Moles/Vol] 25 mmol/L Normal 21-32 [facility] Creatinine [Mass/Vol] 0.81 mg/dL Normal 0.70-1.30 [facility] Glucose [Mass/Vol] 133 mg/dL High 70-99 [facility] Potassium [Moles/Vol] 4.2 mmol/L Normal 3.5-5.1 [facility] Sodium [Moles/Vol] 139 mmol/L Normal 136-145 [facility] Urea nitrogen (BldV) [Mass/Vol] 15 mg/dL Normal 7.0-18.0 [facility] Urea nitrogen/Creatinine [Mass ratio] 19 mg/mg Normal [facility] CBC W Auto Differential pane l (Bld)on 12-16-2020 Basophils (Bld) [#/Vol] 0.0 thou/mcL Normal 0.0-0.2 [facility] Basophils/100 WBC (Bld) 0.4 % Normal 0-3 [facility] Differential cell count method Nom (Bld) AUTOMATED DIFFERENTIAL Normal [facility] Eosinophils (Bld) [#/Vol] 0.1 thou/mcL Normal 0.0-0.4 [facility] Eosinophils/100 WBC (Bld) 2.4 % Normal 0-7 [facility] Lymphocytes (Bld) [#/Vol] 2.4 thou/mcL Normal 0.7-4.5 [facility] Lymphocytes/100 WBC (Bld) 49.7 % High 14-46 [facility] Monocytes (Bld) [#/Vol] 0.4 thou/mcL Normal 0.1-1.0 [facility] Monocytes/100 WBC (Bld) 8.1 % Normal 4-13 [facility] Neutrophils (Bld) [#/Vol] 1.9 thou/mcL Normal 1.5-7.8 [facility] Neutrophils/100 WBC (Bld) 39.4 % Low 40-74 [facility] Erythrocyte distribution width (RBC) [Entitic vol] 13.4 % Normal 11.7-15.0 [facility] Hematocrit (Bld) [Volume fraction] 46.0 % Normal 34.0-50.0 [facility] Hemoglobin (Bld) [Mass/Vol] 15.7 g/dL Normal 11.5-17.0 [facility] MCH (RBC) [Entitic mass] 30.5 Picograms Normal 27.0-34.0 [facility] MCHC (RBC) [Mass/Vol] 34.1 g/dL Normal 32.0-36.0 [facility] MCV (RBC) [Entitic vol] 89.3 fL Normal 80-98 [facility] Platelet mean volume (Bld) [Entitic vol] 9.5 fL Normal 7.5-11.2 [facility] Platelets (Bld) [#/Vol] 271 thou/mcL Normal 140-415 [facility] RBC (Bld) [#/Vol] 5.15 x(10)6/mcL Normal 3.80-5.60 Mo [facility] WBC (Bld) [#/Vol] 4.9 thou/mcL Normal 4.0-10.5 [facility] Vital Signs Date Time Vital Sign Value Performing Clinician Facility 06-26-2023 15:00-0500 Body height 175.26 cm Christopher Bird [facility] Other [facility] Other 06-26-2023 15:00-0500 Body mass index (BMI) [Ratio] 29.86 kg/m2 Christopher Bird [facility] Other [facility] Other 06-26-2023 15:00-0500 Body weight 91.72 kg Christopher Bird [facility] Other [facility] Other 06-26-2023 15:00-0500 Diastolic blood pressure 85 mm[Hg] Christopher Bird [facility] Other [facility] Other 06-26-2023 15:00-0500 Respiratory rate 12 /min Christopher Bird [facility] Other [facility] Other 06-26-2023 15:00-0500 Systolic blood pressure 124 mm[Hg] Christopher Bird [facility] Other [facility] Other 03-14-2023 14:00-0400 Body height 175.26 cm Christopher Ball Other [facility] Other 03-14-2023 14:00-0400 Body mass index (BMI) [Ratio] 28.73 kg/m2 Christopher Ball Other [facility] Other 03-14-2023 14:00-0400 Body weight 88.27 kg Christopher Ball Other [facility] Other 03-14-2023 14:00-0400 Diastolic blood pressure 86 mm[Hg] Christopher Ball Other [facility] Other 03-14-2023 14:00-0400 Respiratory rate 12 /min Christopher Ball Other [facility] Other 03-14-2023 14:00-0400 Systolic blood pressure 121 mm[Hg] Christopher Ball Other [facility] Other 12-21-2022 15:00-0400 Body height 175.26 cm Christopher Ball Other [facility] Other 12-21-2022 15:00-0400 Body mass index (BMI) [Ratio] 28.97 kg/m2 Christopher Ball Other [facility] Other 12-21-2022 15:00-0400 Body weight 89 kg Christopher Ball Other [facility] Other 12-21-2022 15:00-0400 Diastolic blood pressure 80 mm[Hg] Christopher Ball Other [facility] Other 12-21-2022 15:00-0400 Respiratory rate 12 /min Christopher Ball Other [facility] Other 12-21-2022 15:00-0400 Systolic blood pressure 126 mm[Hg] Christopher Ball Other [facility] Other 11-26-2022 09:00-0400 Body height 175.26 cm Kacey Vazquez Other [facility] Other 11-26-2022 09:00-0400 Body mass index (BMI) [Ratio] 28.5 kg/m2 Kacey Vazquez Other [facility] Other 11-26-2022 09:00-0400 Body temperature 97.1 [degF] Kacey Vazquez Other [facility] Other 11-26-2022 09:00-0400 Body weight 87.54 kg Kacey aVzquez Other [facility] Other 11-26-2022 09:00-0400 Diastolic blood pressure 74 mm[Hg] Kacey Vazquez Other [facility] Other 11-26-2022 09:00-0400 Respiratory rate 18 /min Kacey Vazquez Other [facility] Other 11-26-2022 09:00-0400 SaO2% (BldA) [Mass fraction] 97 % Kacey Vazquez Other [facility] Other 11-26-2022 09:00-0400 Systolic blood pressure 106 mm[Hg] Kacey Vazquez Other [facility] Other 10-10-2022 16:00-0400 Body height 175.26 cm Christopher Ball Other [facility] Other 10-10-2022 16:00-0400 Body mass index (BMI) [Ratio] 28.59 kg/m2 Christopher Ball Other [facility] Other 10-10-2022 16:00-0400 Body weight 87.82 kg Christopher Ball Other [facility] Other 10-10-2022 16:00-0400 Diastolic blood pressure 77 mm[Hg] Christopher Ball Other [facility] Other 10-10-2022 16:00-0400 SaO2% (BldA) [Mass fraction] 96 % Christopher Ball Other [facility] Other 10-10-2022 16:00-0400 Systolic blood pressure 108 mm[Hg] Christopher Ball Other [facility] Other 08-08-2022 15:45-0500 Body height 175.26 cm Christopher Ball Other [facility] Other 08-08-2022 15:45-0500 Body mass index (BMI) [Ratio] 29.12 kg/m2 Christopher Ball Other [facility] Other 08-08-2022 15:45-0500 Body weight 89.45 kg Christopher Ball Other [facility] Other 08-08-2022 15:45-0500 Diastolic blood pressure 76 mm[Hg] Christopher Ball Other [facility] Other 08-08-2022 15:45-0500 Respiratory rate 12 /min Christopher Ball Other [facility] Other 08-08-2022 15:45-0500 Systolic blood pressure 118 mm[Hg] Christopher Pearce Other [facility] Other 11-09-2021 08:53-0400 Blood Pressure Location Lino Ansari Jr. [facility] 11-09-2021 08:53-0400 Diastolic blood pressure 88 mm[Hg] Lino Ansari Jr. [facility] 11-09-2021 08:53-0400 Heart rate 81 /min Lino Ansari Jr. [facility] 11-09-2021 08:53-0400 Systolic blood pressure 113 mm[Hg] Lino Ansari Jr. [facility] Encounters Encounter Date Encounter Type Care Provider Facility Start: 08-29-2023 End: 08-29-2023 ambulatory JOHNNIE BRANDOMARII [facility] Start: 08-23-2023 End: 08-24-2023 ambulatory JOHNNIE [facility] Start: 07-21-2023 End: 07-21-2023 ambulatory Chritsopher Pearce Other [facility] Other Start: 07-21-2023 Telephone encounter Christopher Pearce FP [facility] Start: 06-26-2023 End: 06-26-2023 ambulatory Christopher Pearce Other [facility] Other Start: 06-26-2023 Office outpatient vi sit 15 minutes Christopher Pearce [facility] Start: 06-14-2023 End: 06-14-2023 ambulatory Christopher Pearce Other [facility] Other Start: 06-14-2023 Telephone encounter Christopher Ball FP [facility] Start: 05-25-2023 End: 05-25-2023 ambulatory Christopher Ball Other [facility] Other Start: 05-25-2023 Telephone encounter Christopher Ball FP [facility] Start: 05-24-2023 End: 05-24-2023 ambulatory Christopher Ball Other [facility] Other Start: 05-24-2023 Office outpatient vi sit 15 minutes Christopher Ball [facility] Start: 04-28-2023 End: 04-28-2023 ambulatory Christopher Ball Other [facility] Other Start: 04-28-2023 Telephone encounter Christopher Ball FP [facility] Start: 03-28-2023 End: 03-28-2023 ambulatory Christopher Ball Other [facility] Other Start: 03-28-2023 Telephone encounter Christopher Ball FP [facility] Start: 03-22-2023 End: 03-22-2023 ambulatory Christopher Ball Other [facility] Other Start: 03-22-2023 Telephone encounter Christopher Ball FP [facility] Start: 03-14-2023 End: 03-14-2023 ambulatory Christopher Ball Other [facility] Other Start: 03-14-2023 Office outpatient vi sit 25 minutes Christopher Ball [facility] Start: 02-28-2023 End: 02-28-2023 ambulatory Christopher Ball Other [facility] Other Start: 02-28-2023 Telephone encounter Christopher Ball [facility] Start: 12-22-2022 End: 12-22-2022 ambulatory Christopher Ball Other [facility] Other Start: 12-22-2022 Telephone encounter Christopher Ball [facility] Start: 12-21-2022 End: 12-21-2022 ambulatory Christopher Ball Other [facility] Other Start: 12-21-2022 Office outpatient vi sit 25 minutes Christopher Ball [facility] Start: 12-05-2022 End: 12-05-2022 ambulatory Christopher Ball Other [facility] Other Start: 12-05-2022 Office outpatient vi sit 15 minutes Christopher Ball [facility] Start: 11-26-2022 End: 11-26-2022 ambulatory Kacey Taylor Other [facility] Other Start: 11-26-2022 Office outpatient vi sit 15 minutes Kacey Vazquez [facility] Start: 10-11-2022 End: 10-11-2022 ambulatory Christopher Ball Other [facility] Other Start: 10-11-2022 Telephone encounter Christopher Ball [facility] Start: 10-10-2022 End: 10-10-2022 ambulatory Christopher Ball Other [facility] Other Start: 10-10-2022 Office outpatient vi sit 25 minutes Christopher Ball [facility] Start: 09-06-2022 End: 09-06-2022 ambulatory Christopher Ball Other [facility] Other Start: 09-06-2022 Telephone encounter Christopher Ball [facility] Start: 08-26-2022 End: 08-26-2022 ambulatory Christopher Ball Other [facility] Other Start: 08-26-2022 Telephone encounter Christopher Ball [facility] Start: 2022 End: 2022 ambulatory Christopher Ball Other [facility] Other Start: 2022 Telephone encounter Christopher Ball [facility] Start: 08-19-2022 End: 08-20-[address] CHRISTOPHER PEARCE Facility:[facility] Start: 08-19-2022 Telephone encounter Christopher [facility] Start: 08-18-2022 End: 08-18-2022 ambulatory Christopher Pearce Other [facility] Other Start: 08-18-2022 Telephone encounter Christopher [facility] Start: 08-17-2022 End: 08-18-[address] CHRISTOPHER PEARCE Facility:[facility] Start: 08-17-2022 Telephone encounter Christopher [facility] Start: 08-08-2022 End: 08-08-2022 ambulatory Christopher Pearce Other [facility] Other Start: 08-08-2022 Office outpatient vi sit 25 minutes Christopher Pearce [facility] Start: 03-15-2022 End: 03-16-[address] LINO Leyva Facility:[facility] Start: 01-25-2022 End: 01-25-2022 ambulatory LEYDI PEREYRA Facility:[facility] Start: 12-22-2021 Encounter for genera l adult medical examination without abnormal findings DR CHRISTOPHER PEARCE [facility] Start: 12-21-2021 End: 12-22-[address] CHRISTOPHER PEARCE Facility:[facility] Start: 12-21-2021 End: 12-22-2021 Encounter for general adult medical examination without abnormal findings DR CHRISTOPHER PEARCE Facility:[facility] Start: 12-14-2021 Adult health examination Christopher Pearce Other [facility] Other Start: 11-09-2021 End: 11-10-2021 ambulatory Lino Ansari Facility:[facility] Start: 11-09-2021 End: 11-09-2021 Patient encounter procedure Lino Ansari Jr. [facility] Start: 08-31-2021 End: 09-01-[address] CHRISTOPHER PEARCE Facility:[facility] Start: 04-01-2021 End: 04-02-2021 ambulatory Lino Hamzah Ansari Facility[facility] Start: 03-25-2021 End: 03-25-2021 ambulatory Lino Ansari Facility:[facility] Start: 03-24-2021 End: 03-25-2021 ambulatory Lino Hamzah Ansari Facility:[facility] Procedures Date Procedure Procedure Detail Performing Clinician Start: 12-21-2021 PSA screening LEYDI JAIN Comment on above: Performed By: #### C MP, TSH #### [facility] [address] [place] [address] Dr. Cipriano Simon Start: 03-25-2021 Cystoscopy Lino [...] recombinant Lino Ansari Jr. [facility] NEGATED: Highlighted row has not occurred!11-09-2021 influenza virus vaccine, unspecified formulation Lino Ansari Jr. [facility] Payers Date Payer Category Payer Unknown [id number] 2.16.8 [id number] 1960 Unknown [id number] 2.16.8 [id number] 1960 Unknown [id number] 2.16.8 [id number] 1960 Unknown [id number] 2.16.8 40.1.952564.3.579.2.727 1960 Unknown [id number] 2.16.8 40.1.703645.3.579.2.727 1960 Unknown [id number] 2.16.84 0.1.239713.3.579.2.593 1960 Unknown [id number] 2.16.84 0.1.707891.3.579.2.593 1960 Unknown [id number] 2.16.84 0.1.922812.3.579.2.593 1960 Unknown [id number] 2.16.84 0.1.246120.3.579.2.593 1960 Unknown [id number] 2.16.84 0.1.058858.3.579.2.593 1960 Unknown [id number] 2.16.84 0.1.661893.3.579.2.593 1960 Unknown [id number] 2.16.84 0.1.250987.3.579.2.593 1960 Unknown [id number] 2.16.8 40.1.205313.3.579.2.173 1960 Unknown [id number] 2.16.8 40.1.941329.3.579.2.173 1959 Unknown [id number] 1957 Unknown [id number] Unknown [id number] Social History Date Type Detail Facility Start: 11-09-2021 Never smoked tobacco (f inding) [facility] Male [facility] Medical Equipment Procedure Code Equipment Code Equipment Origin al Text Equipment Identifier Dates [id number] FDA Start: 03-25-2021 Start: 09-06-2022 Clinical [...] Microalbumin, Dilated eye exam and Foot exam [facility] Other 12-13-2023 Evaluation note* Encounter Date Diagnosis [...] improved FBS BS have increased w/ illness [facility] Other 10-17-2023 Evaluation note* Encounter Date Diagnosis Assessment Notes Treatment Notes Treatment Clinical Notes Mar, Type 2 diabetes mellitus with hyperglycemia (ICD-10 - E11.65) [facility] Other 10-11-2023 Evaluation note* Encounter Date Diagnosis Assessment Notes Treatment Notes Treatment Clinical Notes Mar, Type 2 diabetes mellitus with hyperglycemia (ICD-10 - E11.65) Mar, jail (current) use of insulin (ICD-10 - Z79.4) [facility] Other 10-03-2023 Evaluation note* Encounter Date Diagnosis [...] exercise for 30 minutes, 3-5 times weekly. [facility] Other 07-13-2023 Evaluation note* Encounter Date Diagnosis Assessment Notes Treatment Notes Treatment Clinical Notes Dec, Type 2 diabetes mellitus with hyperglycemia, without long-term current use of insulin (ICD-10 - E11.65) [facility] Other 07-12-2023 Evaluation note* Encounter Date Diagnosis [...] Avoid stimulants, hydrate and no medication changes [facility] Other 06-26-2023 Evaluation note* Encounter Date Diagnosis [...] of infection. Monitor for now. Push fluids [facility] Other 06-17-2023 Evaluation note* Encounter Date Diagnosis [...] to 7 days, sooner if significantly worsening. [facility] [employer] Other 05-01-2023 Evaluation note* Encounter Date Diagnosis [...] They may safely use Tylenol as needed. [employer] Other 03-13-2023 Evaluation note* Encounter Date Diagnosis Assessment Notes Treatment Notes Treatment Clinical Notes Aug, Type 2 diabetes mellitus with hyperglycemia, without long-term current use of insulin (ICD-10 - E11.65) [employer] Other 03-10-2023 Evaluation note* Encounter Date Diagnosis Assessment Notes Treatment Notes Treatment Clinical Notes Aug, Type 2 diabetes mellitus with hyperglycemia, without long-term current use of insulin (ICD-10 - E11.65) Aug, Anemia, unspecified type (ICD-10 - D64.9) [employer] Other 03-09-2023 Evaluation note* Encounter Date Diagnosis Assessment Notes Treatment Notes Treatment Clinical Notes Aug, Type 2 diabetes mellitus with hyperglycemia, without long-term current use of insulin (ICD-10 - E11.65) [employer] Other 03-08-2023 Evaluation note* Encounter Date Diagnosis Assessment Notes Treatment Notes Treatment Clinical Notes Aug, Type 2 diabetes mellitus with hyperglycemia, without long-term current use of insulin (ICD-10 - E11.65) [employer] Other 02-27-2023 Evaluation note* Encounter Date Diagnosis [...] cramp, nocturnal (ICD-10 - R25.2) Reassure, check [employer] Other 05-31-2022 Hospital Discharge instructions Patient Education 11/09/2021 09:45:52 Kidney Stones, Gcrf-uq-Acnj Kidney Stones Kidney stones are rock-like masses [...] Follow these instructions at home: Medicines Take gsfv-uqq-qngstse and prescription medicines only as told by [...] 11/14/2008 Document Revised: 10/15/2019 Document Reviewed: 10/15/2019 Check Patient Education 2020 [employer]. Follow Up Care 04/01/2021 14:51:08 With:Elna Peterson MD, FELIPE Toth Address: [facility] [address], [place] [address]- When:05/12/2022 Comments:w/nancy [facility] 10-26-2021 Note [id number]:127[facility] 04-01-2021 NoteCystoscopy with Stent Removal ? [...] you have a fever over 100 degrees.Jacob [facility] 03-24-2021 [id number]:127Fisharnav [facility]07-21-2021 Hospital Progress notePatient: RIC SANCHEZ MRN: [id number] Age: 60 years Sex: Male : 1960 Associated Diagnoses: None Author: Marco Alvarado MD Assessment Assessment Diagnosis: Osteoarthritis of left hip (SSG84-AJ M16.12, Working, Medical). Plan A medical consult [...] Radiology Report for More Detail Diagnosis [facility] Anesthesiology Preoperative evaluation and management notePatient: RIC SANCHEZ MRN: [id number] Age: 60 years Sex: Male : 1960 [...] thou/mcL 12/16/20 10:32, Lymphocyt (more content not included)...[facility] No data available for this section [facility] noteNo InformationNort Reds10 Other History general Narrative - Reported* Type Description Date Medical History Anxiety Medical History diabetes mallitus Medical History left hip pain Surgical History kidney stone Hospitalization History see above [employer] Other History general Narrative - Reported* Type Description Date Medical History Anxiety Medical History diabetes mallitus Medical History left hip pain Surgical History kidney stone Surgical History Left hip replacement Hospitalization History see above [employer] Other Reason for referral (narrative)* Reason Referral for rotator cuff tear Diagnosis 1 Acute pain of left s houlder (M25.512) Diagnosis 2 Nontraumatic incompl ete tear of rotator cuff, unspecified laterality (M75.110) Referral Organization [facility] Referring Provider First Name Christopher Referring Provider Last Name Bryce Referring Provider Specialty Internal Me dicine Referred Organization [facility] Referred Provider Alfredo Vazquez Referred Address [address] [place],[address] Referred Provider Specialty Orthopedic S urgery Referral Priority Routine General Notes Mr. Sanchez is being re ferred for further evaluation and treatment of a rotator cuff tear. Clinical Notes MRI completed [employer] Other Summary Purpose Family History No Family [...] content) DATE CREATED AUTHOR 03/01/2021 [facility] DATE CREATED AUTHOR AUTHOR'S ORGANIZ ATION 03/17/2022 [facility] DATE CREATED AUTHOR AUTHOR'S ORGANIZ ATION 08/24/2022 [facility] DATE CREATED AUTHOR AUTHOR'S ORGANNOAH ATION 08/31/2023 [facility] REASON FOR VISIT (unrecogniz ed section and content) Heart FluttersNo Information No InformationNo InformationLab ResultsMedication AErefillFOLLOW UPmedicationsinus infection, 2 wksSINUS INFECTION [id number] sugar check upNo InformationBS readingsBS NOT CONTROLLEDMedicationNo [...] BE BASED ON THE PRIMARY CLINICAL RECORDS. [employer] [facility]. provides no warranty or guarantee of the accuracy or completeness of information in this document.
[2023-09-02] MEDS: LACTATED RINGER'S SOLUTION 1,000 ML 125 ML IV (13:33)
[2023-09-02] MEDS: ACETAMINOPHEN 325 MG TABLET 650 MG PO ×2 (13:33→21:49)
[2023-09-02] MEDS: LEVOFLOXACIN IN DEXTROSE 5 % 750 MG/150 ML IV.SOLN 100 MG IV (13:33)
--- NOTE | 2023-09-02 16:25 | PM.HP ---
HPI H&P: HPI History of Present Illness Chief complaint: fever SEVERE SEPSIS UTI PYELONEPHRITIS Narrative: patient is a 63-year-old male with past medical history of chronic kidney stones,anxiety disorder, insulin-dependent type 2 diabetes, presented to the Emergency Room today with increased blood and his urine, pain, fevers that it been going on for about four days. He was seen at a hospital in [place] where he seen a urologist and a left ureteral stent was placed on Monday08/29/23. Patient was discharged home with the expectation of returning to surgery this coming Monday and then awoke again a office follow-up for a stent removal a week later. Since his stent placement he has noted increased hematuria, left flank pain, fevers causing him to have significant chills. His family doctor started him on Keflex, and doxycycline. He notes that he is an insulin-dependent diabetic but his sugars actually been low since he's not been taking his medications.in the emergency ddepartment patient met sepsis criteria for fever, tachycardia, elevated white blood cell count of sixteen, and an elevated lactate level of 3.1. Slight acute renal failure with a creatinine of 1.65. Patient was given Rocephin, and a CT of the abdomen and pelvis was obtained that showed placement of a left ureteral stent with slight increased perirenal stranding around the left ureter, per Emergency Room notes pain notified his urologist that placed the stent on Monday who recommended admission to the hospital for IV antibiotics. Urine and blood cultures were obtained and are pending. Patient was admitted to the hospitalist service for further plan of care. Patient would like some Tylenol today for some chills and fever complaints, other than nausea and vomiting. Opioid HPI Opioid Management Most Recent Opioid Data: Last Pain Assessment 09/02/23 16:00 Last ED Pain Assessment 08/28/23 07:44 Last MAR Pain Assessment 09/02/23 15:12 Last ORT Total Score 0 09/02/23 12:10 Last ORT Risk Category Low Risk 09/02/23 12:10 Review of Systems ROS Narrative ROS: a complete review of systems were reviewed with patient and are positive as below or listed in History of Chief Complaint. General:fever, chills, no night sweats Head: no headache, trauma, visual changes, nausea or vomiting Skin: no reported rashes, itching or sores Eyes: no blurriness of vision Ears: no reported hearing loss, vertigo, earache, or tinnitus Throat: no sore throat, hoarseness, swelling of neck, or tongue pain Heart: no chest pain Lungs: no shortness of breath or cough GI: no diarrhea but vomiting/nausea Urinary: urinary urgency, frequency and pain Neuro: no numbness or tingling HEM: no bleeding issues or bruising ENDO: no thyroid problems Psych: no anxiety or depression PFSH PFSH Medical History (Updated 09/02/23 @ 16:35 by Paulette Leigh DO) Diabetes ?E11.9 - Type 2 diabetes mellitus without complications (ICD-10) Anxiety disorder ?F41.9 - Anxiety disorder, unspecified (ICD-10) Surgical History History of left hip replacement ?Z96.642 - Presence of left artificial hip joint (ICD-10) Social History Smoking status: Former smoker Meds Home Medications and Allergies Home Medications ?Medication ?Instructions ?Recorded ?Confirmed ?Type ondansetron 4 mg disintegrating 4 mg PO Q6H PRN nausea and 08/20/23 09/02/23 Rx tablet vomiting #20 tabs oxycodone-acetaminophen 5 mg-325 1 tab PO Q6H PRN pain 5 days #20 08/20/23 09/02/23 Rx mg tablet (Percocet) tabs tamsulosin 0.4 mg capsule (Flomax) 0.4 mg PO DAILY #7 caps 08/20/23 09/02/23 Rx tamsulosin 0.4 mg capsule (Flomax) 0.4 mg PO DAILY PRN kidney stone 08/26/23 09/02/23 Rx #14 caps alprazolam 0.5 mg tablet 0.5 mg PO QID 09/02/23 09/02/23 History cephalexin 500 mg capsule 500 mg PO Q8H 09/02/23 09/02/23 History doxycycline hyclate 100 mg capsule 100 mg PO Q12H 09/02/23 09/02/23 History glimepiride 2 mg tablet 1 mg PO DAILY 09/02/23 09/02/23 History insulin glargine 100 unit/mL (3 30 unit subcut DAILY 09/02/23 09/02/23 History mL) subcutaneous pen (Basaglar KwikPen U-100 Insulin) metformin 1,000 mg tablet 1,000 mg PO DAILY 09/02/23 09/02/23 History Allergies Allergy/AdvReac Type Severity Reaction Status Date / Time No Known Drug Allergies Allergy Verified 09/02/23 06:00 Exam Narrative Exam Narrative: General: Patient is alert, and oriented to person, place and time with normal affect, proper hygiene Skin: no visible rashes, or ulcers Head: atraumatic, acephalic Eyes: PERRLA, no nystagmus present, conjunctiva clear, no scleral icterus Neck: no masses palpated, normal thyroid, no JVD or audible carotid bruits Heart: Normal rate and rhythm, no murmurs/rubs/gallops Lungs: no audible wheezes, crackles and normal breath sounds all lung crain Abdomen: Normal audible bowel sounds, no distension, No palpable masses, no organomegaly, no rebound/guarding/ or rigidity Musculoskeletal: no swelling bilateral lower extremities Neuro: CN II-X grossly intact, normal sensation upper and lower extremities Constitutional Vital Signs, click to edit/add: Last Vital Signs Temp 99.0 F 09/02/23 15:12 Pulse 114 H 09/02/23 15:54 Resp 18 09/02/23 12:02 BP 162/77 H 09/02/23 12:02 Pulse Ox 97 09/02/23 12:02 O2 Del Method Room Air 09/02/23 12:02 Results Labs Labs: Short CBC 09/02/23 Range/Units 06:00 WBC 16.5 H (4.0-11.0) 10^3/uL Hgb 14.8 (14.0-18.0) g/dL Hct 41.8 L (42.0-54.0) % Plt Count 185 (150-450) 10^3/uL BMP 09/02/23 06:00 Sodium 130 L Potassium 2.9 L* Chloride 96 L Carbon Dioxide 19.4 L BUN 13.0 Creatinine 1.65 H Glucose 241 H Calcium 8.1 L Liver Function 09/02/23 Range/Units 06:00 Total Bilirubin 1.2 H (0.2-1.0) mg/dL AST 19 (15-37) U/L ALT 33 (16-63) U/L Alkaline Phosphatase 71 (46-116) U/L Albumin 3.1 L (3.4-5.0) g/dL Urine 09/02/23 Range/Units 06:10 Urine Color Story A (YELLOW) Urine Clarity Clear (CLEAR) Urine pH 5.5 (5.0-9.0) Ur Specific [place] >=1.030 A (1.005-1.025) Urine Protein >=300 A (NEG/TRACE) mg/dL Urine Glucose (UA) 100 A (NEGATIVE) mg/dL Assessment and Plan Assessment and Plan (1) Sepsis: Assessment and Plan: elevated white blood cell count, fever, tachycardia, elevated lactate of 3.1.patient was given fluid bolus, regalado cultures obtained, patient was started on Rocephin and then given Levaquin for her urinary source. We'll continue lactated Ringer's at one 50 mL/h. Treat with Tylenol and Toradol as needed. Qualifiers: Sepsis type: sepsis due to unspecified organism Sepsis acute organ dysfunction status: with acute organ dysfunction Severe sepsis acute organ dysfunction type: acute renal failure Acute renal failure type: unspecified Severe sepsis shock status: without septic shock Qualified Code(s): A41.9 - Sepsis, unspecified organism; R65.20 - Severe sepsis without septic shock; N17.9 - Acute kidney failure, unspecified (2) Urinary tract infection: Assessment and Plan: continue Levaquin, urine culture pending Qualifiers: Urinary tract infection type: acute pyelonephritis Qualified Code(s): N10 - Acute pyelonephritis (3) Nausea & vomiting: Assessment and Plan: continue Zofran as needed Qualifiers: Vomiting type: unspecified Qualified Code(s): R11.2 - Nausea with vomiting, unspecified (4) Renal colic on left side: Assessment and Plan: stent still in place, per urology recommendations from the Emergency Room note continued Aleve stent in place and treat for urinary tract infection (5) Diabetes: Assessment and Plan: will half long acting insulin, and sliding scale as needed Qualifiers: Diabetes mellitus type: type 2 Diabetes mellitus long term care phlebotomist insulin use: with half-way use Diabetes mellitus complication status: with hyperglycemia Qualified Code(s): E11.65 - Type 2 diabetes mellitus with hyperglycemia; Z79.4 - group home (current) use of insulin (6) Anxiety disorder: Assessment and Plan: continue home Xanax. Qualifiers: Anxiety disorder type: unspecified anxiety disorder Qualified Code(s): F41.9 - Anxiety disorder, unspecified Plan patient is full code lovenox for dvt prophylaxis patient is inpatient status and is expected to cross 2 midnights for medically necessary care. Possible urology consultation if not improving since urologist that placed stent is not privileged at [facility]
[2023-09-02 16:32] LABS: Glucometer 260 mg/dL (74-106)
[2023-09-02] MEDS: INSULIN ASPART 300 UNIT/3 ML PEN SUBQ (16:46)
[2023-09-02] MEDS: ENOXAPARIN SODIUM 40 MG/0.4 ML SYRINGE SUBQ (16:46)
[2023-09-02] MEDS: ALPRAZOLAM 0.5 MG TABLET PO ×2 (17:54→21:47)
[2023-09-02 21:36] LABS: Glucometer 125 mg/dL (74-106)
[2023-09-02] MEDS: POTASSIUM CHLORIDE 10 MEQ ER TABLET 20 MEQ PO (21:47)
[2023-09-02] MEDS: LACTATED RINGER'S SOLUTION 1,000 ML 150 ML IV (21:47)
[2023-09-02] MEDS: ONDANSETRON 4 MG RAPDIS TABLET PO (21:48)
[2023-09-03] VITALS (17 sets, daily range): BP systolic 96–117; BP diastolic 57–70; PULSE 83–97; RESP 18–21; TEMP 36.4–37.2; O2SAT 92–97
[2023-09-03] MEDS: LACTATED RINGER'S SOLUTION 1,000 ML 150 ML IV (04:29)
[2023-09-03 05:25] LABS: Basophils Percent Auto 0.2 % (0.2-2.0); Eosinophils Percent Auto 0.2 % (0.9-7.0); Hematocrit 38.5 % (42.0-54.0); Hemoglobin 13.1 g/dL (14.0-18.0); Immature Granulocytes Abs Auto 0.15 10^3/uL (0.00-0.03); Immature Granulocytes Pct Auto 1.2 % (0.0-0.5); Lymphocytes Absolute Auto 1.7 10^3/uL (1.2-3.8); Lymphocytes Percent Auto 12.8 % (20.5-60.0); Mean Corpuscular Hemoglobin 29.2 pg (25.9-34.0); Mean Corpuscular Volume 85.9 fL (80.0-94.0); Mean Platelet Volume 9.8 fL (9.5-13.5); Monocytes Absolute Auto 0.9 10^3/uL (0.3-0.8); Monocytes Percent Auto 7.2 % (1.7-12.0); Neutrophils Absolute Auto 10.2 10^3/uL (1.4-6.5); Neutrophils Percent Auto 78.4 % (43.0-75.0); Platelet Count 186 10^3/uL (150-450); Red Blood Count 4.48 10^6/uL (4.70-6.10); Red Cell Distribution Width 12.8 % (11.0-15.0)
[2023-09-03 05:40] LABS: Alanine Aminotransferase 42 U/L (16-63); Albumin Globulin Ratio 0.7; Albumin Level 2.5 g/dL (3.4-5.0); Alkaline Phosphatase 58 U/L (46-116); Anion Gap 15.4; Aspartate Amino Transferase 22 U/L (15-37); Bilirubin Total 0.6 mg/dL (0.2-1.0); Carbon Dioxide 24.3 mmol/L (21.0-32.0); Chloride 104 mmol/L (98-107); Estimated GFR (African America >60 (>=60); Estimated GFR (Non-African Ame 58 (>=60); Globulin 3.8 g/dL; Glucose 189 mg/dL (74-106); Potassium 3.7 mmol/L (3.5-5.1); Sodium 140 mmol/L (136-145); Total Protein 6.3 g/dL (6.4-8.2)
[2023-09-03] MEDS: ALPRAZOLAM 0.5 MG TABLET PO ×4 (06:15→21:44)
[2023-09-03 07:32] LABS: Glucometer 191 mg/dL (74-106)
[2023-09-03] MEDS: POTASSIUM CHLORIDE 10 MEQ ER TABLET 20 MEQ PO ×2 (08:15→21:44)
[2023-09-03] MEDS: ACETAMINOPHEN 325 MG TABLET 650 MG PO ×2 (08:15→17:44)
[2023-09-03] MEDS: INSULIN ASPART 300 UNIT/3 ML PEN SUBQ ×4 (08:15→21:44)
[2023-09-03] MEDS: TAMSULOSIN HCL 0.4 MG CAPSULE 0.400000000000000022 MG PO (08:15)
[2023-09-03] MEDS: LEVOFLOXACIN IN DEXTROSE 5 % 750 MG/150 ML IV.SOLN 100 MG IV (08:16)
--- NOTE | 2023-09-03 08:36 | PM.PN ---
Progress Note: Subjective Subjective Interval history: Patient is feeling much better today. Denies fevers overnight. No further nausea or vomiting. Diarrhea started last night. still with some left flank pain but improved from yesterday. Exam Narrative Exam Narrative: General: Patient is alert, and oriented to person, place and time with normal affect, proper hygiene Skin: no visible rashes, or ulcers Head: atraumatic, acephalic Heart: Normal rate and rhythm, no murmurs/rubs/gallops Lungs: no audible wheezes, crackles and normal breath sounds all lung crain Abdomen: Normal audible bowel sounds, no distension, No palpable masses, no organomegaly, no rebound/guarding/ or rigidity Musculoskeletal: no swelling bilateral lower extremities Neuro: CN II-X grossly intact Constitutional Vital Signs, click to edit/add: Last Vital Signs Temp 97.6 F 09/03/23 08:00 Pulse 91 H 09/03/23 08:00 Resp 18 09/03/23 08:00 BP 109/70 09/03/23 08:00 Pulse Ox 96 09/03/23 08:00 O2 Del Method Room Air 09/03/23 08:00 Progress Note: Objective Labs Labs: Short CBC 09/03/23 Range/Units 04:57 WBC 13.0 H (4.0-11.0) 10^3/uL Hgb 13.1 L (14.0-18.0) g/dL Hct 38.5 L (42.0-54.0) % Plt Count 186 (150-450) 10^3/uL BMP 09/03/23 04:57 Sodium 140 Potassium 3.7 Chloride 104 Carbon Dioxide 24.3 BUN 14.0 Creatinine 1.27 Glucose 189 H Calcium 8.0 L Liver Function 09/03/23 Range/Units 04:57 Total Bilirubin 0.6 (0.2-1.0) mg/dL AST 22 (15-37) U/L ALT 42 (16-63) U/L Alkaline Phosphatase 58 (46-116) U/L Albumin 2.5 L (3.4-5.0) g/dL Progress Note: A&P Assessment and Plan (1) Sepsis: Assessment and Plan: resolved. elevated white blood cell count improving, no fever, lactate now 1.6 .patient was given fluid bolus, regalado cultures obtained, continue on Levaquin for urinary source. stopped fluids. Treat with Tylenol and Toradol as needed. Qualifiers: Acute renal failure type: unspecified Sepsis acute organ dysfunction status: with acute organ dysfunction Sepsis type: sepsis due to unspecified organism Severe sepsis acute organ dysfunction type: acute renal failure Severe sepsis shock status: without septic shock Qualified Code(s): A41.9 - Sepsis, unspecified organism; R65.20 - Severe sepsis without septic shock; N17.9 - Acute kidney failure, unspecified (2) Urinary tract infection: Assessment and Plan: Enterococcus species, awaiting sensitivities, continue Levaquin. Qualifiers: Urinary tract infection type: acute pyelonephritis Qualified Code(s): N10 - Acute pyelonephritis (3) Nausea & vomiting: Assessment and Plan: continue Zofran as needed Qualifiers: Vomiting type: unspecified Qualified Code(s): R11.2 - Nausea with vomiting, unspecified (4) Renal colic on left side: Assessment and Plan: tent still in place, per urology recommendations from the Emergency Room note continued leave stent in place and treat for urinary tract infection, surgery scheduled for this monday in [place] (5) Diabetes: Assessment and Plan: continue long acting insulin, and sliding scale as needed Qualifiers: Diabetes mellitus complication status: with hyperglycemia Diabetes mellitus half-way insulin use: with half-way use Diabetes mellitus type: type 2 Qualified Code(s): E11.65 - Type 2 diabetes mellitus with hyperglycemia; 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 Plan patient is full code lovenox for dvt prophylaxis
[2023-09-03 09:57] LABS: Lactate/Lactic Acid 1.6 mmol/L (0.4-2.0)
[2023-09-03 11:15] LABS: Glucometer 230 mg/dL (74-106)
[2023-09-03] MEDS: LOPERAMIDE HCL 1 MG/7.5 ML LIQUID PO (15:49)
[2023-09-03 16:25] LABS: Glucometer 211 mg/dL (74-106)
[2023-09-03] MEDS: ENOXAPARIN SODIUM 40 MG/0.4 ML SYRINGE SUBQ (16:32)
[2023-09-03] MEDS: LACTATED RINGER'S SOLUTION 1,000 ML 50 ML IV (18:08)
[2023-09-03 19:30] LABS: Glucometer 192 mg/dL (74-106)
[2023-09-03] MEDS: L. ACIDOPHILUS/L.BULGARICUS 1 PACKET GRAN.PACK PO (21:44)
[2023-09-04] VITALS (9 sets, daily range): BP systolic 98–131; BP diastolic 62–80; PULSE 72–93; RESP 12–18; TEMP 36.7–37.1; O2SAT 95–97
[2023-09-04] MEDS: ACETAMINOPHEN 325 MG TABLET 650 MG PO (03:30)
[2023-09-04] MEDS: ALPRAZOLAM 0.5 MG TABLET PO ×2 (05:22→12:17)
[2023-09-04 05:37] LABS: Basophils Percent Auto 0.4 % (0.2-2.0); Eosinophils Absolute Auto 0.1 10^3/uL (0.0-0.7); Eosinophils Percent Auto 1.2 % (0.9-7.0); Hematocrit 36.5 % (42.0-54.0); Hemoglobin 12.5 g/dL (14.0-18.0); Immature Granulocytes Abs Auto 0.06 10^3/uL (0.00-0.03); Immature Granulocytes Pct Auto 0.8 % (0.0-0.5); Lymphocytes Absolute Auto 1.5 10^3/uL (1.2-3.8); Lymphocytes Percent Auto 21.2 % (20.5-60.0); Mean Corpuscular HGB Conc 34.2 g/dL (29.9-35.2); Mean Corpuscular Hemoglobin 29.4 pg (25.9-34.0); Mean Corpuscular Volume 85.9 fL (80.0-94.0); Mean Platelet Volume 10.1 fL (9.5-13.5); Monocytes Absolute Auto 0.5 10^3/uL (0.3-0.8); Monocytes Percent Auto 6.2 % (1.7-12.0); Neutrophils Absolute Auto 5.1 10^3/uL (1.4-6.5); Neutrophils Percent Auto 70.2 % (43.0-75.0); Platelet Count 189 10^3/uL (150-450); Red Blood Count 4.25 10^6/uL (4.70-6.10); White Blood Count 7.3 10^3/uL (4.0-11.0)
[2023-09-04 05:56] LABS: Alanine Aminotransferase 36 U/L (16-63); Albumin Globulin Ratio 0.6; Albumin Level 2.4 g/dL (3.4-5.0); Alkaline Phosphatase 64 U/L (46-116); Anion Gap 17.6; Aspartate Amino Transferase 16 U/L (15-37); BUN Creatinine Ratio 12.9; Bilirubin Total 0.5 mg/dL (0.2-1.0); Calcium 8.1 mg/dL (8.5-10.1); Carbon Dioxide 20.2 mmol/L (21.0-32.0); Chloride 105 mmol/L (98-107); Estimated GFR (African America >60 (>=60); Estimated GFR (Non-African Ame >60 (>=60); Globulin 3.9 g/dL; Glucose 215 mg/dL (74-106); Potassium 3.8 mmol/L (3.5-5.1); Sodium 139 mmol/L (136-145); Total Protein 6.3 g/dL (6.4-8.2)
[2023-09-04 07:54] LABS: Glucometer 288 mg/dL (74-106)
[2023-09-04] MEDS: POTASSIUM CHLORIDE 10 MEQ ER TABLET 20 MEQ PO (08:19)
[2023-09-04] MEDS: TAMSULOSIN HCL 0.4 MG CAPSULE 0.400000000000000022 MG PO (08:19)
[2023-09-04] MEDS: INSULIN ASPART 300 UNIT/3 ML PEN SUBQ ×2 (08:20→12:11)
[2023-09-04] MEDS: L. ACIDOPHILUS/L.BULGARICUS 1 PACKET GRAN.PACK PO (08:20)
[2023-09-04] MEDS: LEVOFLOXACIN IN DEXTROSE 5 % 750 MG/150 ML IV.SOLN 100 MG IV (08:21)
--- NOTE | 2023-09-04 08:33 | PM.DS1 ---
DS: Providers Provider Date of admission: 09/02/23 11:46 Primary care physician: Christopher Pearce DO Admitting clinician: Paulette Leigh Discharging clinician: Paulette Leigh DS: Diagnosis Discharge Diagnosis (1) Sepsis: Qualifiers: Acute renal failure type: unspecified Sepsis acute organ dysfunction status: with acute organ dysfunction Sepsis type: sepsis due to unspecified organism Severe sepsis acute organ dysfunction type: acute renal failure Severe sepsis shock status: without septic shock Qualified Code(s): A41.9 - Sepsis, unspecified organism; R65.20 - Severe sepsis without septic shock; N17.9 - Acute kidney failure, unspecified (2) Urinary tract infection: Qualifiers: Urinary tract infection type: acute pyelonephritis Qualified Code(s): N10 - Acute pyelonephritis (3) Nausea & vomiting: Qualifiers: Vomiting type: unspecified Qualified Code(s): R11.2 - Nausea with vomiting, unspecified (4) Renal colic on left side: (5) Diabetes: Qualifiers: Diabetes mellitus complication status: with hyperglycemia 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 Diabetes mellitus type: type 2 Qualified Code(s): E11.65 - Type 2 diabetes mellitus with hyperglycemia; 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 He was seen at a hospital in [place] where he seen a urologist and a left ureteral stent was placed on Monday08/29/23. Since his stent placement he has noted increased hematuria, left flank pain, fevers causing him to have significant chills. His family doctor started him on Keflex, and doxycycline. Patient met sepsis criteria for fever, tachycardia, elevated white blood cell count of sixteen, and an elevated lactate level of 3.1. Slight acute renal failure with a creatinine of 1.65. Patient was given Rocephin, and a CT of the abdomen and pelvis was obtained that showed placement of a left ureteral stent with slight increased perirenal stranding around the left ureter, per Emergency Room notes pain notified his urologist that placed the stent on Monday who recommended admission to the hospital for IV antibiotics. Urine and blood cultures were obtained which grew Enterococcus as source of UTI/Pyelo, he was continued on Levaquin. He will be placed on Levaquin 750mg daily x 5 more days. white blood cell count at the time of discharge is within normal range at 7.3, lactate is normal, BUN/creatinine are also within the normal range. Symptoms have resolved. Patient is to notify his urologist as there was a plan for surgery tomorrow. He is to complete his antibiotics. He is to also resume all other medications including his dosage of long-acting insulin. He is to return to the Emergency Room with any worsening signs or symptoms. Patient will be discharged home today in stable condition. Status at Discharge Functional status at discharge: independent ambulation Overall status at discharge: patient is back to baseline Time Spent with Patient Time attestation: Total time spent providing and/or coordinating discharge services: Time spent: greater than 30 minutes Exam Narrative Exam Narrative: General: Patient is alert, and oriented to person, place and time with normal affect, proper hygiene Heart: Normal rate and rhythm, no murmurs/rubs/gallops Lungs: no audible wheezes, crackles and normal breath sounds all lung crain Abdomen: Normal audible bowel sounds, no distension, No palpable masses, no organomegaly, no rebound/guarding/ or rigidity Musculoskeletal: no swelling bilateral lower extremities Lymph: no supraclavicular, axillary, or anterior/posterior cervical adenopathy Neuro: CN II-X grossly intact Constitutional Vital Signs, click to edit/add: Last Vital Signs Temp 98.4 F 09/04/23 08:00 Pulse 72 09/04/23 08:00 Resp 14 09/04/23 08:00 BP 131/80 09/04/23 08:00 Pulse Ox 97 09/04/23 08:00 O2 Del Method Room Air 09/04/23 08:00 DS: Data Data Completed and Pending Labs on day of discharge: Labs from last 24 hours 09/04/23 09/04/23 09/03/23 07:53 05:06 19:19 WBC 7.3 RBC 4.25 L Hgb 12.5 L Hct 36.5 L MCV 85.9 MCH 29.4 MCHC 34.2 RDW 13.0 Plt Count 189 MPV 10.1 Neut % (Auto) 70.2 Lymph % (Auto) 21.2 Amelia % (Auto) 6.2 Eos % (Auto) 1.2 Baso % (Auto) 0.4 Neut # (Auto) 5.1 Lymph # (Auto) 1.5 Amelia # (Auto) 0.5 Eos # (Auto) 0.1 Baso # (Auto) 0.0 Abs Immat Gran (auto) 0.06 H Imm/Tot Granulo (auto) 0.8 H Sodium 139 Potassium 3.8 Chloride 105 Carbon Dioxide 20.2 L Anion Gap 17.6 BUN 13.0 Creatinine 1.01 Est GFR ( Amer) >60 Est GFR (Non-Af Amer) >60 BUN/Creatinine Ratio 12.9 Glucose 215 H Lactate Calcium 8.1 L Total Bilirubin 0.5 AST 16 ALT 36 Alkaline Phosphatase 64 Total Protein 6.3 L Albumin 2.4 L Globulin 3.9 Albumin/Globulin Ratio 0.6 POC Glucose 288 H 192 H 09/03/23 09/03/23 09/03/23 16:24 11:12 09:30 WBC RBC Hgb Hct MCV MCH MCHC RDW Plt Count MPV Neut % (Auto) Lymph % (Auto) Amelia % (Auto) Eos % (Auto) Baso % (Auto) Neut # (Auto) Lymph # (Auto) Amelia # (Auto) Eos # (Auto) Baso # (Auto) Abs Immat Gran (auto) Imm/Tot Granulo (auto) Sodium Potassium Chloride Carbon Dioxide Anion Gap BUN Creatinine Est GFR ( Amer) Est GFR (Non-Af Amer) BUN/Creatinine Ratio Glucose Lactate 1.6 Calcium Total Bilirubin AST ALT Alkaline Phosphatase Total Protein Albumin Globulin Albumin/Globulin Ratio POC Glucose 211 H 230 H Discharge Plan Discharge Disposition: Home, Self-Care Discharge Medications: New levofloxacin 750 mg tablet 750 mg PO DAILY 5 Days Qty: 5 0RF Continued tamsulosin [Flomax] 0.4 mg capsule 0.4 mg PO DAILY Qty: 7 0RF oxycodone-acetaminophen [Percocet] 5-325 mg tablet 1 tab PO Q6H PRN (Reason: pain) 5 Days Qty: 20 0RF ondansetron 4 mg tablet,disintegrating 4 mg PO Q6H PRN (Reason: nausea and vomiting) Qty: 20 0RF tamsulosin [Flomax] 0.4 mg capsule 0.4 mg PO DAILY PRN (Reason: kidney stone) Qty: 14 0RF alprazolam 0.5 mg tablet 0.5 mg PO QID glimepiride 2 mg tablet 1 mg PO DAILY Rx Instructions: before breakfast metformin 1,000 mg tablet 1,000 mg PO DAILY insulin glargine [Basaglar KwikPen U-100 Insulin] 100 unit/mL (3 mL) insulin pen 30 unit SUBCUT DAILY Rx Instructions: at HS Discontinued cephalexin 500 mg capsule 500 mg PO Q8H doxycycline hyclate 100 mg capsule 100 mg PO Q12H Activity: increase activity as tolerated Diet: advance to your usual diet and diabetic diet Diet Detail: diabetic diet as prior to admission Print Language: Portuguese Patient Instructions: Urinary Tract Infection in Men (DC), Kidney Infection (DC), Hydronephrosis (DC) Forms: Portal Instructions Follow Up Appointments: September 10 @ 9:30am with Dr. Pearce [phone] Dr Hutton/Urologist as scheduled Discharge location: home
[2023-09-04] MEDS: INSULIN DETEMIR 300 UNIT/3 ML INSULN.PEN 15 UNIT SQ (08:42)
--- NOTE | 2023-09-04 11:42 | CM.NOTE ---
Rounds made with Dr. Leigh, pt will discharge to home today. Pt has appt with urologist scheduled for tomorrow. Pt will be discharged on P.O Levaquin.
[2023-09-04 11:55] LABS: Glucometer 231 mg/dL (74-106)
--- NOTE | 2023-09-05 16:09 | CM.DCFOLLOWU ---
Person spoke with: Jay How are you feeling? Much better had stent removed today at urology appt How is your pain? No pain Did you understand your discharge instructions? Yes Do you have any questions about your discharge instructions? No Were you given any prescriptions at discharge? Yes Were you able to get your prescriptions filled? Yes Do you understand how to take your medications as ordered? Yes Do you have any questions about your follow up appointment and do you plan to keep your follow up appointment? No, had appointment today Is there anything else that you would like to discuss? No Questions/Comments/Concerns/Other:
== END 2023-09-04 12:36 | disposition home or self-care (01) | DRG 872 ==
LOC: ER 07:25 → MS 11:48
PROVIDERS: Emergency Medicine; Admitting Provider Family Medicine; Emergency Provider Emergency Medicine; PCP Internal Medicine; Visit Provider Family Medicine
DX: A41.81 Sepsis due to Enterococcus (principal); N17.9 Acute kidney failure, unspecified; N10 Acute pyelonephritis; R65.20 Severe sepsis without septic shock; R11.2 Nausea with vomiting, unspecified; E11.65 Type 2 diabetes mellitus with hyperglycemia; F41.9 Anxiety disorder, unspecified; R19.7 Diarrhea, unspecified; N23 Unspecified renal colic; Z87.442 Personal history of urinary calculi; Z79.4 Long term (current) use of insulin; Z79.899 Other long term (current) drug therapy; Z79.84 Long term (current) use of oral hypoglycemic drugs; Z96.642 Presence of left artificial hip joint; Z87.891 Personal history of nicotine dependence
CPT/HCPCS: 36415; 74176; 80053; 81001; 82948; 83605; 84145; 85025; 87040; 87045; 87046; 87086; 87150; 87186; 87427; 96361; 96365; 96366; 96367; 96372; 96375; 99285

== ENCOUNTER 2024-01-01 14:37 | Outpatient (OUT) | payer OTHER, SELFPAY ==
[2024-01-01 15:19] LABS: Estimated Average Glucose 143 mg/dL; Glycohemoglobin A1C 6.6 % (4.5-6.2)
== END 2024-01-01 14:38 | disposition home or self-care (01) ==
LOC: LAB 14:38
PROVIDERS: PCP Internal Medicine; Visit Provider Internal Medicine
DX: E11.65 Type 2 diabetes mellitus with hyperglycemia (principal)
CPT/HCPCS: 36415; 83036

== ENCOUNTER 2024-01-29 14:20 | Outpatient (OUT) | payer OTHER, SELFPAY ==
--- NOTE | 2024-01-29 14:45 | XR_ITS ---
The [address] [address] Patient Name: RIC SANCHEZ MRN: [id number] date: 1960 Sex: M Assigned Patient Location: RAD Current Patient Location: [facility] Accession/Order Number: [id number] Exam Date: 01/29/2024 14:52 Report Date: 01/29/2024 15:07 At the request of: SP WU Procedure: XR foreign body eye JONNY EXAMINATION: XR foreign body eye JONNY HISTORY: Foreign Body Eye COMPARISON: No relevant comparison available. FINDINGS: ORBITS: Negative for a metallic foreign body. OTHER: Negative. XR/XR foreign body eye JONNY IMPRESSION: No metallic foreign body in the orbits Electronically authenticated by: TANA AMADOR Date: 01/29/2024 15:07
--- NOTE | 2024-01-29 14:46 | US_ITS ---
[address] [address] Patient Name: RIC SANCHEZ MRN: [id number] date: 1960 Sex: M Assigned Patient Location: [facility] Current Patient Location: [facility] Accession/Order Number: [id number] Exam Date: 01/29/2024 16:10 Report Date: 01/30/2024 10:10 At the request of: SP WU Procedure: US carotid duplex BI DUPLEX ULTRASOUND EXAMINATION OF THE CAROTID ARTERIES. COMPARISON: None. HISTORY / INDICATIONS: Tingling of the right upper extremity. Facial pain. TECHNIQUE: Bilateral common carotid arteries, extracranial internal and external carotid arteries are evaluated with valerio-scale imaging, color Doppler, and spectral analysis according to a standard protocol. ICA/CCA ratios are calculated with retention representative peak-systolic velocities and recorded. Vertebral arteries are evaluated in one segment to evaluate for patency and character of flow. Comparison with previous evaluation is performed when available. Unless otherwise specified, all velocities are measured in cm/sec. Carotid stenosis is reported according to validated velocity parameters, similar to NASCET criteria. FINDINGS: Right Carotid: Mild plaque was noted. Velocity measurements as follows: Internal Carotid Artery 71/19, 80/24, and 91/37. ICA/CCA ratio: 1.2. Left Carotid: Mild plaque was noted. Velocity measurements as follows: Internal Carotid Artery 69/24, 69/24, and 95/26. ICA/CCA ratio: 1.2. Antegrade flow was seen in both vertebral arteries. CONCLUSION: 1. Less than 50% stenosis of the right ICA. 2. Less than 50% stenosis of the left ICA. 3. Vertebral arteries are patent and demonstrate antegrade flow. Electronically authenticated by: Lulu KIM Date: 01/30/2024 10:10
--- NOTE | 2024-01-29 14:46 | MR_ITS ---
The [address] [address] Patient Name: RIC SANCHEZ MRN: [id number] date: 1960 Sex: M Assigned Patient Location: [facility] Current Patient Location: [facility] Accession/Order Number: [id number] Exam Date: 01/29/2024 15:00 Report Date: 01/29/2024 21:57 At the request of: SP WU Procedure: MR angio head wo con EXAM: MR angio head wo con HISTORY: Transient Ischemic Attack, Facial Pain COMPARISON: None. TECHNIQUE: MRI and MRA brain performed using standard technique. FINDINGS: No evidence of vascular lesion. No aneurysm. No stenosis. No vascular core for headache. Tortuous basilar artery Mild global volume loss and chronic small vessel ischemic change. No restricted diffusion. Trace right maxilla sinus and ethmoid sinus mucosal thickening. Slight motion degradation MR/MR angio head wo con IMPRESSION: Senescent changes. No acute intracranial abnormality. Unremarkable MRA Electronically authenticated by: MARY LOU WILSON Date: 01/29/2024 21:57
[2024-01-29 14:56] LABS: Basophils Percent Auto 0.5 % (0.2-2.0); Eosinophils Absolute Auto 0.1 10^3/uL (0.0-0.7); Eosinophils Percent Auto 1.9 % (0.9-7.0); Hemoglobin 15.2 g/dL (14.0-18.0); Immature Granulocytes Abs Auto 0.03 10^3/uL (0.00-0.03); Immature Granulocytes Pct Auto 0.5 % (0.0-0.5); Lymphocytes Absolute Auto 2.8 10^3/uL (1.2-3.8); Lymphocytes Percent Auto 43.3 % (20.5-60.0); Mean Corpuscular HGB Conc 35.3 g/dL (29.9-35.2); Mean Corpuscular Hemoglobin 30.1 pg (25.9-34.0); Mean Corpuscular Volume 85.1 fL (80.0-94.0); Mean Platelet Volume 9.6 fL (9.5-13.5); Monocytes Absolute Auto 0.4 10^3/uL (0.3-0.8); Monocytes Percent Auto 6.3 % (1.7-12.0); Neutrophils Percent Auto 47.5 % (43.0-75.0); Platelet Count 232 10^3/uL (150-450); Red Blood Count 5.05 10^6/uL (4.70-6.10); Red Cell Distribution Width 13.1 % (11.0-15.0); White Blood Count 6.4 10^3/uL (4.0-11.0)
[2024-01-29 15:10] LABS: Alanine Aminotransferase 48 U/L (16-63); Albumin Globulin Ratio 1.1; Albumin Level 3.7 g/dL (3.4-5.0); Alkaline Phosphatase 97 U/L (46-116); Anion Gap 13.6; BUN Creatinine Ratio 13.2; Bilirubin Total 0.4 mg/dL (0.2-1.0); Calcium 8.5 mg/dL (8.5-10.1); Carbon Dioxide 24.3 mmol/L (21.0-32.0); Chloride 104 mmol/L (98-107); Estimated GFR (African America >60 (>=60); Estimated GFR (Non-African Ame >60 (>=60); Globulin 3.4 g/dL; Sodium 138 mmol/L (136-145); Total Protein 7.1 g/dL (6.4-8.2)
[2024-01-29 15:14] LABS: Aspartate Amino Transferase 17 U/L (15-37); Glucose 236 mg/dL (74-106); Potassium 3.9 mmol/L (3.5-5.1)
[2024-01-29 17:02] LABS: Microalbumin Urine Random <1.3 mg/dL (<=30.0)
== END 2024-01-29 14:21 | disposition home or self-care (01) ==
LOC: RAD 14:21
PROVIDERS: PCP Internal Medicine; Visit Provider Internal Medicine
DX: G45.9 Transient cerebral ischemic attack, unspecified (principal); G44.209 Tension-type headache, unspecified, not intractable; R20.2 Paresthesia of skin; E11.65 Type 2 diabetes mellitus with hyperglycemia; F41.1 Generalized anxiety disorder
CPT/HCPCS: 36415; 70030; 70544; 80053; 82043; 85025; 93880

== ENCOUNTER 2024-05-08 14:51 | Outpatient (OUT) | payer OTHER, SELFPAY ==
--- OUTSIDE RECORDS SUMMARY | 2024-05-08 15:00 | XMS_ITS | CCD ---
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 Shaft [place]inking Name Role Phone CHRISTOPHER WU Primary Care [...] DR SNOWDEN Primary Care Unavailable BRYCE, DR SNWODEN Consulting Unavailable BRYCE, DR SNOWDEN Attending Unavailable BRYCE, DR SNOWDEN Admitting Unavailable BRYCE, DR SNOWDEN Primary Care Unavailable BRYCE, DR SNOWDEN Attending Unavailable BRYCE, DR SNOWDEN Consulting Unavailable BRYCE, DR CHRISTOPHER Castellonitting Unavailable ELAN Leyva, DR LINO Goodson Attending Unavaila markel Leyva, DR LINO Goodson Admitting Unavaila ble BRYCE, DR SNOWDEN Primary Care Unavailable DU, DR CASE Acosta Consulting Unavailable ELAN Leyva, DR LION Goodson Consulting Unavaila ble BRYCE, DR SNOWDEN Primary Care Unavailable BRYCE, DR SNOWDEN Attending Unavailable BRYCE, DR SNOWDEN Consulting Unavailable BRYCE, DR CHRISTOPHER Castellonitting Unavailable DU, DR CASE Acosta Consulting Unavailable BRYCE, DR SNOWDEN Primary Care Unavailable BRYCE, DR SNOWDEN Consulting Unavailable BRYCE, DR SNOWDEN Attending Unavailable BRYCE, DR SNOWDEN Admitting Unavailable Christopher Wu Unavailable Kacey Vazquez Unavailable Christopher Wu DO Primary Care Provider JOHNNIE HUTTON Referring Unavailable CHRISTOPHER WU Primary Care Unavailable JOHNNIE HUTTON Referring Unavailable CHRISTOPHER WU Primary Care Unavailable JOHNNIE HUTTON Referring Unavailable CHRISTOPHER WU Primary Care Unavailable JOHNNIE HUTTON Admitting Unavailable JOHNNIE HUTTON Attending Unavailable CHRISTOPHER WU Primary Care Unavailable JOHNNIE HUTTON Admitting Unavailable JOHNNIE HUTTON Attending Unavailable CHRISTOPHER WU Primary Care Unavailable RBYCE, CHRISTOPHER Primary Care Unavailable ALONZOUJNAID Attending Unavailable JOHNNIE HUTTON Referring Unavailable CHRISTOPHER WU Primary Care Unavailable JOHNNIE HUTTON Referring Unavailable CHRISTOPHER WU Primary Care Unavailable Allergies Allergy Classification Reported Allergen(s) Allergy Type Date of Onset Reaction(s) Facility (2 sources) Baclofen; 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: [baclofen] Drug Allergy 11-12-19 17 Unknown [facility] (2 sources) celecoxib; 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: [celecoxib] Drug Allergy 03-29-20 Unknown [facility] (20 sources) Iodine; 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: [iodine] Drug Allergy 10-06-19 24 Unknown (qualifier value) [facility] Comment on above: pt states radioactiv e iodine only, not topical (1 source) Baclofen Drug Allergy 11-13-19 17 [facility] (1 source) celecoxib Drug Allergy 03-30-20 20 [facility] (1 source) Iodine (And Iodine Containting Drugs) Drug allergy (disorder) 03-30-20 20 [facility] (18 sources) Azithromycin Drug Allergy 10-06-19 24 Unknown, Unknown Reaction [facility] (20 sources) Ciprofloxacin Drug Allergy 10-06-19 24 Unknown, Unknown Reaction [facility] (14 sources) Sulfamethoxazole / Trimethoprim Drug Allergy Unknown [facility] Other (1 source) patient allergy list reviewed by nurse or physicia Propensity to adverse reactions 01-03-20 19 Comment:Done [facility] Other (4 sources) Sulfamethoxazole Drug Allergy 10-06-19 24 Unknown Reaction [facility] (4 sources) Trimethoprim Drug Allergy 10-06-19 24 Unknown Reaction [facility] Medications Current Medications Medication Drug Class(es) Dates Sig (Normalized) Sig (Original) Acetaminophen / HYDROcodone (1 source) Opioid Agonist Start: 09-05-2023 End: 09-06-2023 HYDROcodone-aceta minophen (NORCO) 5-325 MG per tablet 1 tablet acetaminophen 325 mg / oxyCODONE hydrochloride 5 mg oral tablet (1 source) Opioid Agonist take 1 tablet by mouth every four hours as needed for pain oxyCODONE-acetami nophen (PERCOCET) 5-325 MG per tablet Take 1 tablet by mouth every 4 hours as needed for Pain. 0 Active ALPRAZolam 0.5 mg oral tablet (20 sources) Benzodiazepine Start: 08-04-2023 End: 04-15-2024 take 1 tablet by mouth four times daily as needed for anxiety Alprazolam 0.5 mg tablet Active 0.5 MG PO Four times daily as needed for anxiety 120 April 15, 2024 9:37pm Start: 05-30-2023 take 1 tablet by livia th four times daily as needed for anxiety ALPRAZolam 0.5 MG TAKE 1 TABLET BY MOUTH FOUR TIMES A DAY NEEDED FOR ANXIETY for 30 May, Active Start: 11-03-2022 take 1 tablet by livia th four times daily as needed for anxiety ALPRAZolam 0.5 MG TAKE 1 TABLET BY MOUTH FOUR TIMES A DAY NEEDED FOR ANXIETY October, Active Start: 07-07-2022 take 1 tablet by livia th four times daily as needed for anxiety ALPRAZolam 0.5 MG TAKE 1 TABLET BY MOUTH FOUR TIMES A DAY NEEDED FOR ANXIETY Jun, Active Start: 03-17-2021 take 1 tablet by livia th three times daily as needed for anxiety Xanax 0.5 mg Tab 0.5 mg = 1 tab(s), Oral, TID, PRN for anxiety, Refills(s) 0 Start Date: 03/17/21 Status: Ordered Blood-Glucose Meter,Continuo us (Dexcom G7 Er Nurse) misc (6 sources) Start: 01-16-2024 Blood-Glucose Meter,Continuous (Dexcom G7 Er Nurse) misc Active 0 .Route January 15, 2024 11:00pm Use to test home BS 4x daily Start: 01-16-2024 Blood-Glucose Meter,Continuous (Dexcom G7 Er Nurse) misc Active 0 .Route January 16, 2024 12:00am Use to test home BS 4x daily Start: 10-06-2023 End: 10-06-2023 Blood-Glucose Meter,Continuo us (Dexcom G7 Er Nurse) misc Discontinued 0 .Route October 05, 2023 11:00pm October 06, 2023 2:21pm Use to test BS 4x daily Start: 10-06-2023 End: 10-06-2023 Blood-Glucose Meter,Continuo us (Dexcom G7 Er Nurse) misc Discontinued 0 .Route October 06, 2023 12:00am October 06, 2023 3:21pm Use to test BS 4x daily Blood-Glucose Sensor (Dexcom G7 Sensor) device (6 sources) Start: 01-16-2024 Blood-Glucose Sensor (Dexcom G7 Sensor) device Active 0 .Route January 16, 2024 4:59pm Use to check BS 4x daily Start: 01-16-2024 Blood-Glucose Sensor (Dexcom G7 Sensor) device Active 0 .Route January 16, 2024 5:59pm Use to check BS 4x daily Start: 10-06-2023 End: 01-16-2024 Blood-Glucose Sensor (Dexcom G7 Sensor) device Discontinued 0 .Route October 05, 2023 11:00pm January 16, 2024 3:31pm Use to check BS 4x daily Start: 10-06-2023 End: 01-16-2024 Blood-Glucose Sensor (Dexcom G7 Sensor) device Discontinued 0 .Route October 06, 2023 12:00am January 16, 2024 4:31pm Use to check BS 4x daily Start: 10-06-2023 Blood-Glucose Sensor (Dexcom G7 Sensor) device Active 0 .Route October 06, 2023 12:00am Use to check BS 4x daily calcium chloride 0.0014 meq/ ml / potassium chloride 0.004 meq/ml / sodium chloride 0.103 meq/ml / sodium lactate 0.028 meq/ml injectable solution (2 sources) Start: 09-05-2023 IntraVENous, a t 125 mL/hr, CONTINUOUS, Starting on Mon09/05/23 at 1115, PACU only Start: 09-05-2023 lactated ringe rs IV soln infusion diclofenac sodium 75 mg delayed release oral tablet (1 source) Nonsteroidal Anti-inflammatory Drug Start: 04-26-2024 take 1 tablet by mouth twice daily as needed for pain Diclofenac Sodium 75 mg tablet,delayed release (DR/EC) Active 75 MG PO Twice daily as needed for pain April 26, 2024 12:00am ketorolac tromethamine 10 mg oral tablet (2 sources) Nonsteroidal Anti-inflammatory Drug, Cyclooxygenase Inhibitor Start: 03-24-2021 take 1 tablet by mouth every four hours as needed for pain ketorolac 10 mg Tab 10 mg = 1 tab(s), Oral, q4hr, PRN for pain, # 60 tab(s), Refills(s) 0, Pain Start Date: 03/24/21 Status: Ordered Ketorolac Tromet hamine (TORADOL ORAL PO) Take by mouth 0 Active Multi Vitamin+ (1 source) Start: 03-17-2021 take 1 tablet by mouth once daily Multi Vitamin+ 1 tab, Oral, Daily, Refill(s) 0, Prophylaxis Start Date: 03/17/21 Status: Ordered naloxone 0.4 mg in 10 mL sodium chloride syringe (1 source) Start: 09-05-2023 IntraVENous, P RN, Opioid Reversal, Starting on Mon09/05/23 at 1059 PRN if respiratory rate is less than 6/min and patient is difficult to arouse then notify physician STAT. Mix 9 mL of sodium chloride 0.9% with 0.4 mg (1 mL) of naloxone (NARCAN) in 10 mL syringe. (Note: dilution is 0.04 mg/mL) Give 0.08 mg (2 mL of special dilution), slow IV push, repeat up to 0.4 mg (10 mL) or until patient is responsive to physical stimulation and respiratory rate is equal to or greater than 6 breaths/min. Continue to observe, if no response within 3 minutes of administration of 0.4 mg (10 mL) total, repeat dose (0.4 mg as administered previously). Concentration 0.04 mg/mL PACU only omeprazole 20 mg delayed release oral capsule (2 sources) Proton Pump Inhibitor take 1 capsule by mouth once daily omeprazole (PRILOSEC) 20 MG delayed release capsule Take 1 capsule by mouth daily Active 2 ml ondansetron 2 mg/ml injection (1 source) Serotonin-3 Receptor Antagonist Start: 09-05-2023 End: 09-06-2023 4 mg, IntraVENous, ONCE PRN, 1 dose, Starting on Mon09/05/23 at 1059, Until Mon09/06/23 at 1059, Nausea Initial antiemetic therapy. PACU only tamsulosin hydrochloride 0.4 mg oral capsule (1 source) alpha-Adrenergic Artemio take 1 capsule by mouth once daily tamsulosin (FLOMAX) 0.4 MG capsule Take 1 capsule by mouth daily 0 Active tiZANidine 4 mg oral tablet (5 sources) Central alpha-2 Adrenergic Agonist Start: 10-06-2023 End: 04-26-2024 take 1 tablet by mouth once daily at bedtime as needed Tizanidine 4 mg tablet Active 4 MG PO Daily at bedtime as needed for muscle spasticity 03 21April 26, 2024 12:00am Completed/Discontinued Medications Medication Drug Class(es) Dates Sig (Normalized) Sig (Original) acetaminophen 325 mg oral tablet (1 source) Start: 09-05-2023 End: 09-05-2023 acetaminophen (TYLENOL) tablet 650 mg amoxicillin 875 mg / clavulanate 125 mg oral tablet (20 sources) Penicillin-class Antibacterial Start: 08-08-2023 End: 10-04-2023 take 1 tablet by mouth every twelve hours Amoxicillin-Pot Clavulanate 875-125 mg tablet Discontinued 1 TAB PO Every 12 hours 14 August 08, 2023 12:00am October 04, 2023 6:57pm Start: 11-26-2022 take 1 tablet by livia th every twelve hours Amoxicillin-Pot Clavulanate 875-125 MG 1 tablet Orally every 12 hrs for 10 days Nov, Not-Taking/PRN Blood-Glucose Meter,Continuo us (Freestyle [place]) misc (3 sources) Start: 01-16-2024 End: 01-16-2024 Blood-Glucose Meter,Continuo us (Freestyle [place]) misc Discontinued 0 .ROUTE .MEDSUPPLY 1 January 15, 2024 11:00pm January 16, 2024 4:56pm Use to test home BS 4-6x daily Start: 01-16-2024 End: 01-16-2024 Blood-Glucose Meter,Continuo us (Freestyle [place]) misc Discontinued 0 .ROUTE .MEDSUPPLY January 16, 2024 12:00am January 16, 2024 5:56pm Use to test home BS 4-6x daily Start: 01-16-2024 Blood-Glucose Meter,Continuous (Freestyle [place]) misc Active 0 .ROUTE .MEDSUPPLY January 16, 2024 12:00am Use to test home BS 4-6x daily Blood-Glucose Sensor (Freest yle Lamar 3 Sensor) device (3 sources) Start: 01-16-2024 End: 01-16-2024 Blood-Glucose Sensor (Freest yle Lamar 3 Sensor) device Discontinued 0 .ROUTE .MEDSUPPLY January 15, 2024 11:00pm January 16, 2024 4:56pm Use to test home BS 4-6x daily Start: 01-16-2024 End: 01-16-2024 Blood-Glucose Sensor (Freest yle Lamar 3 Sensor) device Discontinued 0 .ROUTE .MEDSUPPLY January 16, 2024 12:00am January 16, 2024 5:56pm Use to test home BS 4-6x daily Start: 01-16-2024 Blood-Glucose Sensor (Freestyle Lamar 3 Sensor) device Active 0 .ROUTE .MEDSUPPLY January 16, 2024 12:00am Use to test home BS 4-6x daily dextromethorphan hydrobromide 15 mg / guaiFENesin 400 mg / pseudoephedrine hydrochloride 60 mg oral tablet (16 sources) alpha-Adrenergic Agonist, Uncompetitive R-vickuj-W-aspartate Receptor Antagonist, Sigma-1 Agonist Start: 11-26-2022 take 1 tablet by mouth every six hours as needed for cough Capmist DM 60-15-400 MG 1 tablet Orally q6hrs prn congestion/cough for 7 days Nov, Not-Taking/PRN dimenhyDRINATE 50 mg oral tablet (1 source) Start: 09-05-2023 End: 09-05-2023 dimenhyDRINATE (DRAMAMINE) tablet 50 mg doxycycline hyclate 100 mg oral capsule (20 sources) Tetracycline-class Drug Start: 08-30-2023 End: 10-04-2023 take 1 capsule by mouth twice daily Doxycycline Hyclate 100 mg capsule Discontinued 100 MG PO Twice daily 23 12August 29, 2023 11:00pm October 04, 2023 6:57pm Start: 12-05-2022 take 1 capsule by mo uth twice daily Doxycycline Hyclate 100 MG 1 capsule Orally twice daily for 7 days May, Active glimepiride 2 mg oral tablet (20 sources) Sulfonylurea Start: 08-04-2023 End: 04-26-2024 take 1 mg by mouth once daily Glimepiride 2 mg tablet Discontinued 1 MG PO Daily August 04, 2023 12:00am April 26, 2024 3:35pm Start: 08-04-2023 take 1 mg by mouth once daily Glimepiride Active 1 MG PO Daily August 04, 2023 1:00am Start: 08-23-2022 take 1 tablet by mouth once da gina Glimepiride 1 mg tablet Active 1 MG PO Daily April 26, 2024 3:35pm Glimepiride 2 MG 1/2 Orally Once a day Active take 1 tablet by livia th at breakfast Glimepiride 2 MG TAKE 1 TABLET BY MOUTH 30 MINUTES PRIOR TO BREAKFAST EVERY DAY Active take 1 tablet by livia th at breakfast Glimepiride 1 MG TAKE 1 TABLET BY MOUTH 30 MINUTES PRIOR TO BREAKFAST Active Insulin Detemir U-100 (Levem ir Flexpen) 100 unit/mL (3 mL) insulin pen (3 sources) Start: 11-29-2023 End: 12-01-2023 Insulin Detemir U-100 (Levem ir Flexpen) 100 unit/mL (3 mL) insulin pen Discontinued 20 UNIT SUBCUT Twice daily 06 10November 28, 2023 11:00pm December 01, 2023 1:57pm Start: 11-29-2023 End: 12-01-2023 Insulin Detemir U-100 (Levem ir Flexpen) 100 unit/mL (3 mL) insulin pen Discontinued 20 UNIT SUBCUT Twice daily 06 10November 29, 2023 12:00am December 01, 2023 2:57pm 3 ml insulin glargine 100 unt/ml pen injector (20 sources) Insulin Analog Start: 01-16-2024 End: 02-18-2024 Insulin Glargine (Basaglar Kwikpen U-100 Insulin) 100 unit/mL (3 mL) insulin pen Discontinued 22 UNIT SUBCUT Twice daily February 14, 2024 9:51am February 18, 2024 5:57pm Start: 08-04-2023 End: 08-31-2023 Insulin Glargine (Basaglar K dayanarakpen U-100 Insulin) 100 unit/mL (3 mL) insulin pen Discontinued 30 UNIT SUBCUT Daily August 04, 2023 12:00am August 31, 2023 11:36am Start: 03-22-2023 Lantus SoloSta r 100 UNIT/ML 10u Subcutaneous q HS, increase 2u every 3 days for 30 days Mar, Active insulin glargine (LANTUS;BASAGLAR) 100 UNIT/ML injection pen Inject 30 Units into the skin nightly Patient taking 22 units bid. Active Basaglar KwikPen 100 UNIT/ML 30units Active Basaglar KwikPen 100 UNIT/ML 10u, increase 2u every 3 days until reach 20u Subcutaneous q HS Active Insulin Glargine-Yfgn (Semglee(Insulin Glarg-Yfgn)Pen) 100 unit/mL (3 mL) insulin pen (14 sources) Start: 12-01-2023 End: 04-26-2024 Insulin Glargine-Yfgn (Semglee(Insulin Glarg-Yfgn)Pen) 100 unit/mL (3 mL) insulin pen Discontinued 22 UNIT SUBCUT Twice daily 39.6 90 December 01, 2023 1:56pm April 26, 2024 3:03pm Start: 12-01-2023 Insulin Glargi ne-Yfgn (Semglee(Insulin Glarg-Yfgn)Pen) 100 unit/mL (3 mL) insulin pen Active 22 UNIT SUBCUT Twice daily 39.6 90 December 01, 2023 2:56pm Start: 11-29-2023 End: 12-01-2023 Insulin Glargine-Yfgn (Semgl ee(Insulin Glarg-Yfgn)Pen) 100 unit/mL (3 mL) insulin pen Discontinued 22 UNIT SUBCUT Daily November 28, 2023 11:00pm December 01, 2023 1:57pm Start: 11-29-2023 End: 12-01-2023 Insulin Glargine-Yfgn (Semgl ee(Insulin Glarg-Yfgn)Pen) 100 unit/mL (3 mL) insulin pen Discontinued 22 UNIT SUBCUT Daily November 29, 2023 12:00am December 01, 2023 2:57pm Start: 10-06-2023 End: 11-29-2023 Insulin Glargine-Yfgn (Semgl ee(Insulin Glarg-Yfgn)Pen) 100 unit/mL (3 mL) insulin pen Discontinued 20 UNIT SUBCUT Twice daily October 06, 2023 1:36pm November 29, 2023 7:36am 40 units total daily Start: 10-06-2023 End: 11-29-2023 Insulin Glargine-Yfgn (Semgl ee(Insulin Glarg-Yfgn)Pen) 100 unit/mL (3 mL) insulin pen Discontinued 20 UNIT SUBCUT Twice daily October 06, 2023 2:36pm November 29, 2023 8:36am 40 units total daily Start: 10-06-2023 Insulin Glargi ne-Yfgn (Semglee(Insulin Glarg-Yfgn)Pen) 100 unit/mL (3 mL) insulin pen Active 20 UNIT SUBCUT Twice daily October 06, 2023 2:36pm 40 units total daily Start: 08-31-2023 End: 10-06-2023 Insulin Glargine-Yfgn (Semgl ee(Insulin Glarg-Yfgn)Pen) 100 unit/mL (3 mL) insulin pen Discontinued 30 UNIT SUBCUT Daily 03 11August 30, 2023 11:00pm October 06, 2023 1:37pm Start: 08-31-2023 End: 10-06-2023 Insulin Glargine-Yfgn (Semgl ee(Insulin Glarg-Yfgn)Pen) 100 unit/mL (3 mL) insulin pen Discontinued 30 UNIT SUBCUT Daily 03 11August 31, 2023 12:00am October 06, 2023 2:37pm 100 ml levoFLOXacin 5 mg/ml injection (1 source) Quinolone Antimicrobial Start: 09-05-2023 End: 09-05-2023 levoFLOXacin (LEVAQUIN) 500 MG/100ML infusion 500 mg metFORMIN hydrochloride 1000 mg oral tablet (20 sources) Biguanide Start: 11-01-2023 End: 01-03-2024 take 1 tablet by mouth once daily at mealtime Metformin 1,000 mg tablet Discontinued 0 .ROUTE .COMPLEX November 01, 2023 7:34am January 03, 2024 2:34pm TAKE 1 TABLET BY MOUTH ONCE PER DAY WITH A MEAL FOR 30 DAYS Start: 03-17-2021 End: 11-01-2023 take 1 tablet by mouth once daily Metformin 1,000 mg tablet Discontinued 1000 MG PO Daily August 04, 2023 12:00am November 01, 2023 7:34am pioglitazone 30 mg oral tablet (20 sources) Peroxisome Proliferator Receptor alpha Agonist, Peroxisome Proliferator Receptor gamma Agonist, Thiazolidinedione Start: 08-08-2022 take 1 tablet by mouth every twenty-four hours Pioglitazone HCl 30 MG 1 tablet Orally Once a day for 30 days Jul, Not-Taking/PRN Start: 03-24-2021 take 1 tablet by livia th once daily pioglitazone 30 mg Tab 30 mg = 1 tab(s), Oral, Daily, High blood sugar Start Date: 03/24/21 Status: Ordered triamcinolone acetonide 1 mg/ml topical cream (3 sources) Corticosteroid Start: 01-16-2024 End: 04-26-2024 Triamcinolone Acetonide 0.1 % cream Discontinued 1 APPLIC TOPICAL Twice daily January 15, 2024 11:00pm April 26, 2024 3:05pm Problems Active Problems Problem Classification Problem Date Documented Date Episodic/Chronic Abdominal pain (20 sources) Epigastric pain; 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: [Left lower quadrant pain] Onset: 11-22-2016 Resolved: 03-09-2021 Episodic Acute bronchitis (4 sources) Acute bronchitis due to other specified organisms; 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: [Acute bronchitis] Onset: 06-10-2014 Episodic Anxiety disorders (20 sources) Anxiety; 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: [Anxiety disorder, unspecified] Onset: 01-27-2022 03-24-2021 Chronic Calculus of urinary tract (20 sources) Kidney stone; 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: [Calculus of kidney] Onset: 11-09-2021 Episodic Cardiac dysrhythmias (20 sources) Ventricular premature depolarization; 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: [Other specified cardiac arrhythmias] Onset: 08-19-2022 Chronic Cardiac dysrhythmias (3 sources) Tachycardia; 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: [Tachycardia, unspecified] 03-06-2024 Episodic Chronic obstructive pulmonary disease and bronchiectasis (1 [...] [Gastroesophageal reflux disease with esophagitis without hemorrhage] 08-04-2023 Chronic Headache; including migraine (7 sources) Pain in face; 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: [Facial pain] 01-16-2024 Episodic Hyperplasia of prostate (2 sources) Lower urinary [...] sources) Long-term current use of insulin; 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: [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] Episodic Other aftercare (1 source) 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 Episodic Other connective tissue disease (1 source) Cramp and spasm Episodic Other connective tissue disease (1 source) Plantar fascial fibromatosis; 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: [Plantar fascial fibromatosis] Episodic Other connective tissue disease (5 sources) Unspecified rotator cuff tear or rupture of unspecified shoulder, not specified as traumatic; 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: [Tear of rotator cuff] 08-06-2023 Episodic Other ear and sense organ disorders [...] pain; 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: [Other chronic pain] Chronic Other nervous system disorders (2 sources) Paresthesia of right upper limb; 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: [Paresthesia of skin] 01-16-2024 Episodic Other nervous system disorders (1 source) Paresthesia of skin; 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: [Disturbance of skin sensation] 01-16-2024 Episodic Other non-traumatic joint disorders (2 sources) Pain in left shoulder Episodic Other nutritional; endocrine; and metabolic disorders (5 sources) Obesity; 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: [Obesity, unspecified] 08-08-2023 Chronic Other nutritional; endocrine; and metabolic disorders (2 sources) Obesity, unspecified; 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: [Obesity, unspecified] 08-08-2023 Chronic Other nutritional; endocrine; and metabolic disorders (4 sources) Overweight; 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: [Overweight] 10-06-2023 Episodic Other nutritional; endocrine; and metabolic disorders (2 sources) Overweight; 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: [Overweight] Episodic Other screening for suspected conditions (not [...] 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: [Nicotine dependence, cigarettes, in remission] Chronic Transient cerebral ischemia (1 source) Transient cerebral ischemic attack, unspecified; 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: [Unspecified transient cerebral ischemia] 01-16-2024 Chronic Viral infection (20 sources) Post-viral disorder; [...] 06-19-2017 Episodic Other aftercare (1 source) 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; 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: [OTH CUSTODIAL CURRENT DRUG THERAPY] Onset: 01-27-2022 Episodic Other aftercare (1 source) 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; 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: [CASE AIDE USE ORAL HYPOGLYCEMIC DX] Onset: 01-27-2022 Episodic [...] tendon of left thigh, initial encounter] Resolved: 09-28-2021 Episodic Unclassified (14 sources) Nonspecific abnormal findings on radiological and other examination of abdo; 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: [Nonspecific abnormal findings on radiological and other examination of abdo] Urinary tract infections (1 source) Urinary tract infection, site not specified; 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: [Urinary tract infection, site not specified] Onset: 09-01-2023 Episodic Viral infection (1 source) Disease caused by 2019-nCoV; 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: [COVID-19] Resolved: 03-09-2021 Results Test Name Value Interpretation Reference Range Facility XR ABDOMEN (KUB) (SINGLE AP VIEW)on 04-26-2024 XR ABDOMEN (KUB) (SINGLE AP VIEW) EXAMINATION: ONE SUPINE XRAY VIEW(S) OF THE ABDOMEN 04/25/2024 3:04 pm COMPARISON: October 23, 2023 HISTORY: ORDERING SYSTEM PROVIDED HISTORY: Ureteral calculus FINDINGS: Bowel gas pattern nonobstructed. Renal shadows partially obscured by bowel gas and fecal debris. No definite renal or ureteral stones. No acute osseous abnormality. IMPRESSION: No definite renal or ureteral stones Interpreted by: Leroy Lawrence DO Signed by: Leroy Lawrence DO 04/26/24 Final result Normal [facility] XR Abdomen Single viewon No definite renal or ureteral stones [facility] RIS CONSOLIDATED EXAMINATION: ONE SUPINE XRAY VIEW(S) OF THE ABDOMEN 04/25/2024 3:04 pm COMPARISON: October 23, 2023 HISTORY: ORDERING SYSTEM PROVIDED HISTORY: Ureteral calculus FINDINGS: Bowel gas pattern nonobstructed. Renal shadows partially obscured by bowel gas and fecal debris. No definite renal or ureteral stones. No acute osseous abnormality. [facility] RIS CONSOLIDATED Leroy Lawrence DO - 04/26/2024 EXAMINATION: ONE SUPINE XRAY VIEW(S) OF THE ABDOMEN 04/25/2024 3:04 pm COMPARISON: October 23, 2023 HISTORY: ORDERING SYSTEM PROVIDED HISTORY: Ureteral calculus FINDINGS: Bowel gas pattern nonobstructed. Renal shadows partially obscured by bowel gas and fecal debris. No definite renal or ureteral stones. No acute osseous abnormality. IMPRESSION: No definite renal or ureteral stones [facility] XR Abdomen Single viewOrdere d By: Leroy Lawrence on 04-26-2024 [facility] Work Phone: XR Abdomen Single viewon Radiology Study observation (narrative) Juve bender [facility] Basophils Auto (Bld) [#/Vol] on 01-29-2024 Basophils (Bld) [#/Vol] 0.0 10 3/uL 0.0-0.1 [facility] Basophils (Bld) [#/Vol] Automated basoph il count 0.0-0.1 [facility] Basophils/100 WBC Auto (Bld) on 01-29-2024 Basophils/100 WBC (Bld) 0.5 % 0.2-2.0 [facility] Basophils/100 WBC (Bld) Automated basophil % 0. 2-2.0 [facility] Eosinophils/100 WBC Auto (Bl d)on 01-29-2024 Eosinophils/100 WBC (Bld) 1.9 % 0.9-7.0 [facility] Eosinophils/100 WBC (Bld) Automated eosinophil % 0.9-7.0 [facility] Erythrocyte distribution wid th Auto (RBC) [Ratio]on 01-29-2024 Erythrocyte distribution width (RBC) [Ratio] 13.1 % 11.0-15.0 [facility] Erythrocyte distribution width (RBC) [Ratio] Erythrocyte distribution width [Ratio] by Automated count 11.0-15.0 [facility] Estimated glomerular filtrat ion rate (GFR) non- Americanon 01-29-2024 GFR/1.73 sq M.predicted among non-blacks MDRD (S/P/Bld) [Vol rate/Area] mL/min/{1.73_m2} >=60 [facility] GFR/1.73 sq M.predicted among non-blacks MDRD (S/P/Bld) [Vol rate/Area] Estimated glomerular filtration rate (GFR) non- >=60 [facility] Globulin Calc (S) [Mass/Vol] on 01-29-2024 Globulin (S) [Mass/Vol] 3.4 g/dL [facility] Globulin (S) [Mass/Vol] Serum globulin measurement by calculation (mass/volume) [facility] Hematocrit Auto (Bld) [Volum e fraction]on 01-29-2024 Hematocrit (Bld) [Volume fraction] 43.0 % 42.0-54.0 [facility] Hematocrit (Bld) [Volume fraction] Hematocrit [Volume Fraction] of Blood by Automated count 42.0-54.0 [facility] Hemoglobin [Mass/volume] in Bloodon 01-29-2024 Hemoglobin (Bld) [Mass/Vol] 15.2 g/dL 14.0-18.0 [facility] Hemoglobin (Bld) [Mass/Vol] Hemoglobin [Mass/volume] in Blood 14.0-18.0 [facility] Laboratory - Chemistry and C hemistry - challengeon 01-29-2024 Albumin [Mass/Vol] 3.7 g/dL 3.4-5.0 [facility] ALP [Catalytic activity/Vol] 97 U/L 46-116 [facility] ALT [Catalytic activity/Vol] 48 U/L 16-63 [facility] AST [Catalytic activity/Vol] 17 U/L 15-37 [facility] Comment on above: SLIGHTLY LIPEMIC Bilirubin [Mass/Vol] 0.4 mg/dL 0.2-1.0 [facility] Calcium [Mass/Vol] 8.5 mg/dL 8.5-10.1 [facility] Chloride [Moles/Vol] 104 mmol/L 98-107 [facility] CO2 [Moles/Vol] 24.3 mmol/L 21.0-32.0 [facility] Creatinine [Mass/Vol] 0.91 mg/dL 0.70-1.30 [facility] GFR/1.73 sq M.predicted MDRD (S/P/Bld) [Vol rate/Area] mL/min/{1.73_m2} >=60 [facility] Glucose [Mass/Vol] 236 mg/dL High 74-106 [facility] Comment on above: SLIGHTLY LIPEMIC Potassium [Moles/Vol] 3.9 mmol/L 3.5-5.1 [facility] Comment on above: SLIGHTLY LIPEMIC Protein [Mass/Vol] 7.1 g/dL 6.4-8.2 [facility] Sodium [Moles/Vol] 138 mmol/L 136-145 [facility] Urea nitrogen [Mass/Vol] 12.0 mg/dL 7.0-18.0 [facility] Urea nitrogen/Creatinine [Mass ratio] 13.2 mg/mg [facility] Laboratory - Hematology and Cell countson 01-29-2024 Immature granulocytes/100 WBC (Bld) 0.5 % 0.0-0.5 [facility] Leukocytes [#/volume] correc caprice for nucleated erythrocytes in Blood by Automated counon 01-29-2024 WBC corrected for nucl RBC Auto (Bld) [#/Vol] 6.4 10 3/uL 4.0-11.0 [facility] WBC corrected for nucl RBC Auto (Bld) [#/Vol] Leukocytes [#/volume] corrected for nucleated erythrocytes in Blood by Automated coun 4.0-11.0 [facility] Lymphocytes Auto (Bld) [#/Vo l]on 01-29-2024 Lymphocytes (Bld) [#/Vol] 2.8 10 3/uL 1.2-3.8 [facility] Lymphocytes (Bld) [#/Vol] Lymphocytes [#/volume] in Blood by Automated count 1.2-3.8 [facility] Lymphocytes/100 WBC Auto (Bl d)on 01-29-2024 Lymphocytes/100 WBC (Bld) 43.3 % 20.5-60.0 [facility] Lymphocytes/100 WBC (Bld) Lymphocytes/100 leukocytes in Blood by Automated count 20.5-60.0 [facility] MCH Auto (RBC) [Entitic mass ]on 01-29-2024 MCH (RBC) [Entitic mass] 30.1 pg 25.9-34.0 [facility] MCH (RBC) [Entitic mass] MCH [Entitic ma ss] by Automated count 25.9-34.0 [facility] MCHC Auto (RBC) [Mass/Vol]on 01-29-2024 MCHC (RBC) [Mass/Vol] 35.3 g/dL High 29.9-35.2 [facility] MCHC (RBC) [Mass/Vol] MCHC [Mass/volume] by Automated count High 29.9-35.2 [facility] MCV Auto (RBC) [Entitic vol] on 01-29-2024 MCV (RBC) [Entitic vol] 85.1 fL 80.0-94.0 [facility] MCV (RBC) [Entitic vol] MCV [Entitic vol ume] by Automated count 80.0-94.0 [facility] Microalbumin [Mass/volume] i n Urineon 01-29-2024 Albumin DL <= 20 mg/L (U) [Mass/Vol] mg/dL <=30.0 [facility] Albumin DL <= 20 mg/L (U) [Mass/Vol] Microalbumin [Mass/volume] in Urine <=30.0 [facility] Monocytes Auto (Bld) [#/Vol] on 01-29-2024 Monocytes (Bld) [#/Vol] 0.4 10 3/uL 0.3-0.8 [facility] Monocytes (Bld) [#/Vol] Automated blood monocyte count 0.3-0.8 [facility] Monocytes/100 WBC Auto (Bld) on 01-29-2024 Monocytes/100 WBC (Bld) 6.3 % 1.7-12.0 [facility] Monocytes/100 WBC (Bld) Automated monocyte % 1. 7-12.0 [facility] Neutrophils Auto (Bld) [#/Vo l]on 01-29-2024 Neutrophils (Bld) [#/Vol] 3.0 10 3/uL 1.4-6.5 [facility] Neutrophils (Bld) [#/Vol] Neutrophils [#/volume] in Blood by Automated count 1.4-6.5 [facility] Neutrophils/100 WBC Auto (Bl d)on 01-29-2024 Neutrophils/100 WBC (Bld) 47.5 % 43.0-75.0 [facility] Neutrophils/100 WBC (Bld) Automated neutrophil % 43.0-75.0 [facility] No Panel Informationon 01-28 Eosinophils # (Auto) 0.1 10 3/uL 0.0-0.7 [facility] Immature Granulocyte # (Auto) 0.03 10 3/uL 0.00-0.03 [facility] Platelet mean volume Auto (B ld) [Entitic vol]on 01-29-2024 Platelet mean volume (Bld) [Entitic vol] 9.6 fL 9.5-13.5 [facility] Platelet mean volume (Bld) [Entitic vol] Platelet mean volume [Entitic volume] in Blood by Automated count 9.5-13.5 [facility] Platelets Auto (Bld) [#/Vol] on 01-29-2024 Platelets (Bld) [#/Vol] 232 10 3/uL 150-450 [facility] Platelets (Bld) [#/Vol] Platelets [#/vol ume] in Blood by Automated count 150-450 [facility] RBC Auto (Bld) [#/Vol]on RBC (Bld) [#/Vol] 5.05 10 6/uL 4.70-6.10 [place] RBC (Bld) [#/Vol] Erythrocytes [#/volume] in Blood by Automated count 4.70-6.10 [facility] Serum or plasma albumin/glob ulin mass ratioon 01-29-2024 Albumin/Globulin [Mass ratio] 1.1 {ratio} [facility] Albumin/Globulin [Mass ratio] Serum or plasma albumin/globulin mass ratio [facility] Serum or plasma anion gap de terminationon 01-29-2024 Anion gap [Moles/Vol] 13.6 mmol/L [facility] Anion gap [Moles/Vol] Serum or plasma anion gap determination [facility] Glucose mean value [Mass/vol ume] in Blood Estimated from glycated hemoglobinon 01-01-2024 Average glucose Estimated from glycated hemoglobin (Bld) [Mass/Vol] 143 mg/dL [facility] Laboratory - Hematology and Cell countson 01-01-2024 HbA1c (Bld) [Mass fraction] 6.6 % High 4.5-6.2 [facility] Comment on above: ADA RECOMMENDED LIMI T 4.0 - 6.0ADA THERAPEUTIC TARGET < 7.0ACTION SUGGESTED> 7.0 XR ABDOMEN (KUB) (SINGLE AP VIEW)on 10-24-2023 XR ABDOMEN (KUB) (SINGLE AP VIEW) EXAMINATION: ONE SUPINE XRAY VIEW(S) OF THE ABDOMEN 10/23/2023 3:08 pm COMPARISON: None. HISTORY: ORDERING SYSTEM PROVIDED HISTORY: Ureteral calculus FINDINGS: 4.5 mm linear calcification projecting over the mid upper pole of the left kidney, possibly a nonobstructive calculus. There is no other plain film evidence of renal or ureteral calculi. Bowel gas pattern is nonspecific. Previous left hip arthroplasty. IMPRESSION: Possible left nephrolithiasis. Otherwise unremarkable abdominal plain film. Interpreted by: Andrea Frausto MD Signed by: Andrea Frausto MD 10/24/23 Final result Normal [facility] FLUORO FOR SURGICAL PROCEDUR ESon 09-05-2023 FLUORO FOR SURGICAL PROCEDURES Radiology exam is complete. No Radiologist dictation. Please follow up with ordering provider. Final result Normal [facility] Glucose, Whole Bloodon 09-04 Glucose [Mass/Vol] 220 mg/dL High 74 - 100 mg/dL [facility] Interpretation and review of laboratory results Abnormal [facility] Glucose [Mass/Vol] 220 mg/dL High 74-100 [facility] Guidance-- during surgeryon 09-05-2023 Radiology exam is complete. No Radiologist dictation. Please follow up with ordering provider. PN RIS CONSOLIDATED Basophils Auto (Bld) [#/Vol] on 09-04-2023 Basophils (Bld) [#/Vol] 0.0 10 3/uL 0.0-0.1 [facility] Basophils/100 WBC Auto (Bld) on 09-04-2023 Basophils/100 WBC (Bld) 0.4 % 0.2-2.0 [facility] Eosinophils/100 WBC Auto (Bl d)on 09-04-2023 Eosinophils/100 WBC (Bld) 1.2 % 0.9-7.0 [facility] Erythrocyte distribution wid th Auto (RBC) [Ratio]on 09-04-2023 Erythrocyte distribution width (RBC) [Ratio] 13.0 % 11.0-15.0 [facility] Estimated glomerular filtrat ion rate (GFR) non- Americanon 09-04-2023 GFR/1.73 sq M.predicted among non-blacks MDRD (S/P/Bld) [Vol rate/Area] mL/min/{1.73_m2} >=60 [facility] Globulin Calc (S) [Mass/Vol] on 09-04-2023 Globulin (S) [Mass/Vol] 3.9 g/dL [facility] Hematocrit Auto (Bld) [Volum e fraction]on 09-04-2023 Hematocrit (Bld) [Volume fraction] 36.5 % 42.0-54.0 [facility] Hemoglobin [Mass/volume] in Bloodon 09-04-2023 Hemoglobin (Bld) [Mass/Vol] 12.5 g/dL 14.0-18.0 [facility] Laboratory - Chemistry and C hemistry - challengeon 09-04-2023 Albumin [Mass/Vol] 2.4 g/dL 3.4-5.0 [facility] ALP [Catalytic activity/Vol] 64 U/L 46-116 [facility] ALT [Catalytic activity/Vol] 36 U/L 16-63 [facility] AST [Catalytic activity/Vol] 16 U/L 15-37 [facility] Bilirubin [Mass/Vol] 0.5 mg/dL 0.2-1.0 [facility] Calcium [Mass/Vol] 8.1 mg/dL 8.5-10.1 [facility] Chloride [Moles/Vol] 105 mmol/L 98-107 [facility] CO2 [Moles/Vol] 20.2 mmol/L 21.0-32.0 [facility] Creatinine [Mass/Vol] 1.01 mg/dL 0.70-1.30 [facility] GFR/1.73 sq M.predicted MDRD (S/P/Bld) [Vol rate/Area] mL/min/{1.73_m2} >=60 [facility] Glucose [Mass/Vol] 215 mg/dL 74-106 [facility] Potassium [Moles/Vol] 3.8 mmol/L 3.5-5.1 [facility] Protein [Mass/Vol] 6.3 g/dL 6.4-8.2 [facility] Sodium [Moles/Vol] 139 mmol/L 136-145 [facility] Urea nitrogen [Mass/Vol] 13.0 mg/dL 7.0-18.0 [facility] Urea nitrogen/Creatinine [Mass ratio] 12.9 mg/mg [facility] Laboratory - Hematology and Cell countson 09-04-2023 Immature granulocytes/100 WBC (Bld) 0.8 % 0.0-0.5 [facility] Leukocytes [#/volume] correc caprice for nucleated erythrocytes in Blood by Automated counon 09-04-2023 WBC corrected for nucl RBC Auto (Bld) [#/Vol] 7.3 10 3/uL 4.0-11.0 [facility] Lymphocytes Auto (Bld) [#/Vo l]on 09-04-2023 Lymphocytes (Bld) [#/Vol] 1.5 10 3/uL 1.2-3.8 [facility] Lymphocytes/100 WBC Auto (Bl d)on 09-04-2023 Lymphocytes/100 WBC (Bld) 21.2 % 20.5-60.0 [facility] MCH Auto (RBC) [Entitic mass ]on 09-04-2023 MCH (RBC) [Entitic mass] 29.4 pg 25.9-34.0 [facility] MCHC Auto (RBC) [Mass/Vol]on 09-04-2023 MCHC (RBC) [Mass/Vol] 34.2 g/dL 29.9-35.2 [facility] MCV Auto (RBC) [Entitic vol] on 09-04-2023 MCV (RBC) [Entitic vol] 85.9 fL 80.0-94.0 [facility] Monocytes Auto (Bld) [#/Vol] on 09-04-2023 Monocytes (Bld) [#/Vol] 0.5 10 3/uL 0.3-0.8 [facility] Monocytes/100 WBC Auto (Bld) on 09-04-2023 Monocytes/100 WBC (Bld) 6.2 % 1.7-12.0 [facility] Neutrophils Auto (Bld) [#/Vo l]on 09-04-2023 Neutrophils (Bld) [#/Vol] 5.1 10 3/uL 1.4-6.5 [facility] Neutrophils/100 WBC Auto (Bl d)on 09-04-2023 Neutrophils/100 WBC (Bld) 70.2 % 43.0-75.0 [facility] No Panel Informationon 09-03 Eosinophils # (Auto) 0.1 10 3/uL 0.0-0.7 [facility] Immature Granulocyte # (Auto) 0.06 10 3/uL 0.00-0.03 [facility] Platelet mean volume Auto (B ld) [Entitic vol]on 09-04-2023 Platelet mean volume (Bld) [Entitic vol] 10.1 fL 9.5-13.5 [facility] Platelets Auto (Bld) [#/Vol] on 09-04-2023 Platelets (Bld) [#/Vol] 189 10 3/uL 150-450 [facility] RBC Auto (Bld) [#/Vol]on RBC (Bld) [#/Vol] 4.25 10 6/uL 4.70-6.10 [place] Serum or plasma albumin/glob ulin mass ratioon 09-04-2023 Albumin/Globulin [Mass ratio] 0.6 {ratio} [facility] Serum or plasma anion gap de terminationon 09-04-2023 Anion gap [Moles/Vol] 17.6 mmol/L [facility] Basophils Auto (Bld) [#/Vol] on 09-03-2023 Basophils (Bld) [#/Vol] 0.0 10 3/uL 0.0-0.1 [facility] Basophils/100 WBC Auto (Bld) on 09-03-2023 Basophils/100 WBC (Bld) 0.2 % 0.2-2.0 [facility] Cult,Urineon 09-03-2023 Cult,Urine Specimen Description .CLEAN CATCH URINE Culture ENTEROCOCCUS FAECALIS >100,000 CFU/ML Report Status FINAL 09/03/2023 SUSCEPTIBILITY Organism ENTEROCOCCUS FAECALIS Method DAVIS Ampicillin <=2 SUSCEPTIBLE Ciprofloxacin <=0.5 SUSCEPTIBLE Levofloxacin 0.5 SUSCEPTIBLE Nitrofurantoin <=16 SUSCEPTIBLE Tetracycline >=16 RESISTANT Vancomycin 1 SUSCEPTIBLE Susceptible [facility] Comment on above: Performed By: #### U #### [facility] [employer] [address] [place] [id number] [facility] Director: Juanito West MD [facility] [address] [place] [address] [facility] Director: Andrea Jackson MD Eosinophils/100 WBC Auto (Bl d)on 09-03-2023 Eosinophils/100 WBC (Bld) 0.2 % 0.9-7.0 [facility] Erythrocyte distribution wid th Auto (RBC) [Ratio]on 09-03-2023 Erythrocyte distribution width (RBC) [Ratio] 12.8 % 11.0-15.0 [facility] Estimated glomerular filtrat ion rate (GFR) non- Americanon 09-03-2023 GFR/1.73 sq M.predicted among non-blacks MDRD (S/P/Bld) [Vol rate/Area] 58 mL/min/{1.73_m2} >=60 [facility] Globulin Calc (S) [Mass/Vol] on 09-03-2023 Globulin (S) [Mass/Vol] 3.8 g/dL [facility] Hematocrit Auto (Bld) [Volum e fraction]on 09-03-2023 Hematocrit (Bld) [Volume fraction] 38.5 % 42.0-54.0 [facility] Hemoglobin [Mass/volume] in Bloodon 09-03-2023 Hemoglobin (Bld) [Mass/Vol] 13.1 g/dL 14.0-18.0 [facility] Laboratory - Chemistry and C hemistry - challengeon 09-03-2023 Lactate [Moles/Vol] 1.6 mmol/L 0.4-2.0 [place] Albumin [Mass/Vol] 2.5 g/dL 3.4-5.0 [facility] ALP [Catalytic activity/Vol] 58 U/L 46-116 [facility] ALT [Catalytic activity/Vol] 42 U/L 16-63 [facility] AST [Catalytic activity/Vol] 22 U/L 15-37 [facility] Bilirubin [Mass/Vol] 0.6 mg/dL 0.2-1.0 [facility] Calcium [Mass/Vol] 8.0 mg/dL 8.5-10.1 [facility] Chloride [Moles/Vol] 104 mmol/L 98-107 [facility] CO2 [Moles/Vol] 24.3 mmol/L 21.0-32.0 [facility] Creatinine [Mass/Vol] 1.27 mg/dL 0.70-1.30 [facility] GFR/1.73 sq M.predicted MDRD (S/P/Bld) [Vol rate/Area] mL/min/{1.73_m2} >=60 [facility] Glucose [Mass/Vol] 189 mg/dL 74-106 [facility] Potassium [Moles/Vol] 3.7 mmol/L 3.5-5.1 [facility] Protein [Mass/Vol] 6.3 g/dL 6.4-8.2 [facility] Sodium [Moles/Vol] 140 mmol/L 136-145 [facility] Urea nitrogen [Mass/Vol] 14.0 mg/dL 7.0-18.0 [facility] Urea nitrogen/Creatinine [Mass ratio] 11.0 mg/mg [facility] Laboratory - Hematology and Cell countson 09-03-2023 Immature granulocytes/100 WBC (Bld) 1.2 % 0.0-0.5 [facility] Leukocytes [#/volume] correc caprice for nucleated erythrocytes in Blood by Automated counon 09-03-2023 WBC corrected for nucl RBC Auto (Bld) [#/Vol] 13.0 10 3/uL 4.0-11.0 [facility] Lymphocytes Auto (Bld) [#/Vo l]on 09-03-2023 Lymphocytes (Bld) [#/Vol] 1.7 10 3/uL 1.2-3.8 [facility] Lymphocytes/100 WBC Auto (Bl d)on 09-03-2023 Lymphocytes/100 WBC (Bld) 12.8 % 20.5-60.0 [facility] MCH Auto (RBC) [Entitic mass ]on 09-03-2023 MCH (RBC) [Entitic mass] 29.2 pg 25.9-34.0 [facility] MCHC Auto (RBC) [Mass/Vol]on 09-03-2023 MCHC (RBC) [Mass/Vol] 34.0 g/dL 29.9-35.2 [facility] MCV Auto (RBC) [Entitic vol] on 09-03-2023 MCV (RBC) [Entitic vol] 85.9 fL 80.0-94.0 [facility] Monocytes Auto (Bld) [#/Vol] on 09-03-2023 Monocytes (Bld) [#/Vol] 0.9 10 3/uL 0.3-0.8 [facility] Monocytes/100 WBC Auto (Bld) on 09-03-2023 Monocytes/100 WBC (Bld) 7.2 % 1.7-12.0 [facility] Neutrophils Auto (Bld) [#/Vo l]on 09-03-2023 Neutrophils (Bld) [#/Vol] 10.2 10 3/uL 1.4-6.5 [facility] Neutrophils/100 WBC Auto (Bl d)on 09-03-2023 Neutrophils/100 WBC (Bld) 78.4 % 43.0-75.0 [facility] No Panel InformationOrdered By: Christopher Wu on 09-03-2023 E coli Shiga Toxin EIA Fi [facility] Salmonella/Shigella Screen [facility] No Panel Informationon 09-02 Miscellaneous Test Comment See comment [facility] Comment on above: Specimen Source: ST - Stool - Stool - 700.100 Stool Campylobacter Culture Res 1 See comment [facility] Comment on above: [facility], Eosinophils # (Auto) 0.0 10 3/uL 0.0-0.7 [facility] Immature Granulocyte # (Auto) 0.15 10 3/uL 0.00-0.03 [facility] Platelet mean volume Auto (B ld) [Entitic vol]on 09-03-2023 Platelet mean volume (Bld) [Entitic vol] 9.8 fL 9.5-13.5 [facility] Platelets Auto (Bld) [#/Vol] on 09-03-2023 Platelets (Bld) [#/Vol] 186 10 3/uL 150-450 [facility] RBC Auto (Bld) [#/Vol]on RBC (Bld) [#/Vol] 4.48 10 6/uL 4.70-6.10 [place] Serum or plasma albumin/glob ulin mass ratioon 09-03-2023 Albumin/Globulin [Mass ratio] 0.7 {ratio} [facility] Serum or plasma anion gap de terminationon 09-03-2023 Anion gap [Moles/Vol] 15.4 mmol[facility] Automated epithelial cells c ount in urine sediment (number/area)on 09-02-2023 Epithelial cells Auto (Urine sed) [#/Area] RARE #/LPF NONE/RARE [facility] Automated leukocytes count i n urine sediment (number/area)on 09-02-2023 WBC Auto (Urine sed) [#/Area] 75-100 #/HPF 0-2 [facility] Automated urine specific gra vity by refractometryon 09-02-2023 Specific gravity Refractometry automated (U) [Rel density] >=1.030 1.005-1.025 [facility] Basophils Auto (Bld) [#/Vol] on 09-02-2023 Basophils (Bld) [#/Vol] 0.0 10 3/uL 0.0-0.1 [facility] Basophils/100 WBC Auto (Bld) on 09-02-2023 Basophils/100 WBC (Bld) 0.2 % 0.2-2.0 [facility] Bilirubin Auto test strip (U ) [Mass/Vol]on 09-02-2023 Bilirubin (U) [Mass/Vol] Negative NEGATIVE [facility] Casts typing in urine sedime nt by light microscopyon 09-02-2023 Casts LM Nom (Urine sed) SEEN #/LPF NONE SEEN [facility] Coarse granular casts count in urine sediment by microscopy low power field (number/aon 09-02-2023 Coarse Granular Casts LM.LPF (Urine sed) [#/Area] RARE [facility] Color Auto (U)on 09-02-2023 Color (U) ORANGE YELLOW [facility] Eosinophils/100 WBC Auto (Bl d)on 09-02-2023 Eosinophils/100 WBC (Bld) 0.2 % 0.9-7.0 [facility] Erythrocyte distribution wid th Auto (RBC) [Ratio]on 09-02-2023 Erythrocyte distribution width (RBC) [Ratio] 12.3 % 11.0-15.0 [facility] Estimated glomerular filtrat ion rate (GFR) non- Americanon 09-02-2023 GFR/1.73 sq M.predicted among non-blacks MDRD (S/P/Bld) [Vol rate/Area] 43 mL/min/{1.73_m2} >=60 [facility] Globulin Calc (S) [Mass/Vol] on 09-02-2023 Globulin (S) [Mass/Vol] 3.8 g/dL [facility] Hematocrit Auto (Bld) [Volum e fraction]on 09-02-2023 Hematocrit (Bld) [Volume fraction] 41.8 % 42.0-54.0 [facility] Hemoglobin [Mass/volume] in Bloodon 09-02-2023 Hemoglobin (Bld) [Mass/Vol] 14.8 g/dL 14.0-18.0 [facility] Ketones Auto test strip (U) [Mass/Vol]on 09-02-2023 Ketones (U) [Mass/Vol] 15 mg/dL NEGATIVE [facility] Laboratory - Chemistry and C hemistry - challengeon 09-02-2023 Lactate [Moles/Vol] 3.1 mmol/L 0.4-2.0 [place] Comment on above: RESULTS CALLED TO DR Gordon BLANCO Albumin [Mass/Vol] 3.1 g/dL 3.4-5.0 [facility] ALP [Catalytic activity/Vol] 71 U/L 46-116 [facility] ALT [Catalytic activity/Vol] 33 U/L 16-63 [facility] AST [Catalytic activity/Vol] 19 U/L 15-37 [facility] Bilirubin [Mass/Vol] 1.2 mg/dL 0.2-1.0 [facility] Calcium [Mass/Vol] 8.1 mg/dL 8.5-10.1 [facility] Chloride [Moles/Vol] 96 mmol/L 98-107 [facility] CO2 [Moles/Vol] 19.4 mmol/L 21.0-32.0 [facility] Creatinine [Mass/Vol] 1.65 mg/dL 0.70-1.30 [facility] GFR/1.73 sq M.predicted MDRD (S/P/Bld) [Vol rate/Area] 52 mL/min/{1.73_m2} >=60 [facility] Glucose [Mass/Vol] 241 mg/dL 74-106 [facility] Potassium [Moles/Vol] 2.9 mmol/L 3.5-5.1 [facility] Comment on above: RESULTS CALLED TO IVETTE RUFFIN RN @BY Shereen Crocker at 0636 Protein [Mass/Vol] 6.9 g/dL 6.4-8.2 [facility] Sodium [Moles/Vol] 130 mmol/L 136-145 [facility] Urea nitrogen [Mass/Vol] 13.0 mg/dL 7.0-18.0 [facility] [facility] Urea nitrogen/Creatinine [Mass ratio] 7.9 mg/mg [facility] Laboratory - Hematology and Cell countson 09-02-2023 Immature granulocytes/100 WBC (Bld) 1.3 % 0.0-0.5 [facility] Laboratory - Microbiology an d Antimicrobial susceptibilityOrdered By: Christopher Wu on 09-02-2023 Bacteria identified Cx Nom (U) [facility] Leukocytes [#/volume] correc caprice for nucleated erythrocytes in Blood by Automated counon 09-02-2023 WBC corrected for nucl RBC Auto (Bld) [#/Vol] 16.5 10 3/uL 4.0-11.0 [facility] Lymphocytes Auto (Bld) [#/Vo l]on 09-02-2023 Lymphocytes (Bld) [#/Vol] 1.0 10 3/uL 1.2-3.8 [facility] Lymphocytes/100 WBC Auto (Bl d)on 09-02-2023 Lymphocytes/100 WBC (Bld) 5.9 % 20.5-60.0 [facility] MCH Auto (RBC) [Entitic mass ]on 09-02-2023 MCH (RBC) [Entitic mass] 30.0 pg 25.9-34.0 [facility] MCHC Auto (RBC) [Mass/Vol]on 09-02-2023 MCHC (RBC) [Mass/Vol] 35.4 g/dL 29.9-35.2 [facility] MCV Auto (RBC) [Entitic vol] on 09-02-2023 MCV (RBC) [Entitic vol] 84.6 fL 80.0-94.0 [facility] Monocytes Auto (Bld) [#/Vol] on 09-02-2023 Monocytes (Bld) [#/Vol] 1.0 10 3/uL 0.3-0.8 [facility] Monocytes/100 WBC Auto (Bld) on 09-02-2023 Monocytes/100 WBC (Bld) 6.1 % 1.7-12.0 [facility] Mucus LM Ql (Urine sed)on Mucus Ql (Urine sed) NONE SEEN NONE SEEN [facility] Neutrophils Auto (Bld) [#/Vo l]on 09-02-2023 Neutrophils (Bld) [#/Vol] 14.2 10 3/uL 1.4-6.5 [facility] Neutrophils/100 WBC Auto (Bl d)on 09-02-2023 Neutrophils/100 WBC (Bld) 86.3 % 43.0-75.0 [facility] No Panel InformationOrdered By: Christopher Wu on 09-02-2023 Blood Culture 2 [facility] Blood Culture 1 [facility] No Panel Informationon 09-01 Urine Culture Reflexed YES [facility] Urine Microscopic Review YES [facility] Eosinophils # (Auto) 0.0 10 3/uL 0.0-0.7 [facility] Immature Granulocyte # (Auto) 0.21 10 3/uL 0.00-0.03 [facility] Platelet mean volume Auto (B ld) [Entitic vol]on 09-02-2023 Platelet mean volume (Bld) [Entitic vol] 9.2 fL 9.5-13.5 [facility] Platelets Auto (Bld) [#/Vol] on 09-02-2023 Platelets (Bld) [#/Vol] 185 10 3/uL 150-450 [facility] Protein Auto test strip (U) [Mass/Vol]on 09-02-2023 Protein (U) [Mass/Vol] mg/dL NEG/TRACE [facility] RBC Auto (Bld) [#/Vol]on RBC (Bld) [#/Vol] 4.94 10 6/uL 4.70-6.10 [place] Serum or plasma albumin/glob ulin mass ratioon 09-02-2023 Albumin/Globulin [Mass ratio] 0.8 {ratio} [facility] Serum or plasma anion gap de terminationon 09-02-2023 Anion gap [Moles/Vol] 17.5 mmol/L [facility] Serum procalcitonin measurem enton 09-02-2023 Procalcitonin [Mass/Vol] 27.68 ng/mL 0.00-0.50 [facility] Specific gravity Auto test s trip (U) [Rel density]on 09-02-2023 Specific gravity (U) [Rel density] CLEAR CLEAR [facility] Urine bacteria detection by automated methodon 09-02-2023 Bacteria Auto Ql (U) LARGE #/HPF NONE SEEN [facility] Urine glucose measurement by test strip (mass/volume)on 09-02-2023 Glucose Test strip (U) [Mass/Vol] 100 mg/dL NEGATIVE [facility] Urine hemoglobin detection b y automated test stripon 09-02-2023 Hemoglobin Auto test strip Ql (U) LARGE NEGATIVE [facility] Urine nitrite detection by a utomated test stripon 09-02-2023 Nitrite Auto test strip Ql (U) TRACE NEGATIVE [facility] Nitrite Auto test strip Ql (U) Negative NEGATIVE [facility] Urine sediment crystal ident ification by light microscopyon 09-02-2023 Crystals LM Nom (Urine sed) None Seen #/HPF None Seen [facility] Urine sediment leukocyte cou nt by microscopy (number/high power field)on 09-02-2023 WBC LM.HPF (Urine sed) [#/Area] 5-10 #/HPF NONE SEEN [facility] Urobilinogen Auto test strip (U) [Mass/Vol]on 03-23-2024 Urobilinogen Qn (U) 0.2 {Devorah'U}/dL 0.2-1.0 [facility] pH Auto test strip (U)on pH (U) 5.5 [pH] 5.0-9.0 [facility] CBC with Diffon 09-01-2023 Abs. Basophil <0.03 Normal 0.00-0.20 [facility] Comment on above: Performed By: #### C DP, CP #### [facility] [address] [place] [address] [facility] Director: Andrea Jackson MD Abs.Imm.Granulocyte 0.04 k/uL Normal 0.00-0.30 [facility] Comment on above: Performed By: #### C DP, CP #### [address] [place] [address] [facility] Director: Andrea Jackson MD Abs.Neutrophil (Seg) 10.11 k/uL High 1.50-8.10 [facility] Comment on above: Performed By: #### C DP, CP #### [address] [place] [address] [facility] Director: Andrea Jackson MD Basophils/100 WBC (Bld) 0 % Normal 0-2 [facility] Comment on above: Performed By: #### C DP, CP #### [address] [place] [address] [facility] Director: Andrea Jackson MD Eosinophils (Bld) [#/Vol] 0.03 10*3/uL Normal 0.00-0.44 [facility] Comment on above: Performed By: #### C DP, CP #### [address] [place] [address] [facility]: Andrea Jackson MD Eosinophils/100 WBC (Bld) 0 % Low 1-4 [facility] Comment on above: Performed By: #### C DP, CP #### [facility] [address] [place], [place] [id number] [facility]: Andrea Jackson MD Erythrocyte distribution width (RBC) [Ratio] 12.2 % Normal 11.8-14.4 [facility] Comment on above: Performed By: #### C DP, CP #### [address] [place], [facility] Director: Andrea Jackson MD Hematocrit (Bld) [Volume fraction] 45.5 % Normal 40.7-50.3 [facility] Comment on above: Performed By: #### C DP, CP #### [address] [place], [facility] Director: Andrea Jackson MD Hemoglobin (Bld) [Mass/Vol] 15.7 g/dL Normal 13.0-17.0 [facility] Comment on above: Performed By: #### C DP, CP #### [address] [place], [place] [id number] [facility]: Andrea Jackson MD Immature granulocytes/100 WBC (Bld) 0 % Normal 0 [facility] Comment on above: Performed By: #### C DP, CP #### [address] [place], [facility] Director: Andrea Jackson MD Lymphocytes (Bld) [#/Vol] 1.01 10*3/uL Low 1.10-3.70 [facility] Comment on above: Performed By: #### C DP, CP #### [facility] [address] [place] [address] Dr. [place], [place] [id number] [facility]: Andrea Jackson MD Lymphocytes/100 WBC (Bld) 8 % Low 24-43 [facility] Comment on above: Performed By: #### C DP, CP #### [address] [place], [facility] Director: Andrea Jackson MD MCH (RBC) [Entitic mass] 29.4 pg Normal 25.2-33.5 [facility] Comment on above: Performed By: #### C DP, CP #### [address] [place], [place] [id number] [facility]: Andrea Jackson MD MCHC (RBC) [Mass/Vol] 34.5 g/dL Normal 28.4-34.8 [facility] Comment on above: Performed By: #### C DP, CP #### [address] [place], [place] [id number] [facility]: Andrea Jackson MD MCV (RBC) [Entitic vol] 85.2 fL Normal 82.6-102.9 [facility] Comment on above: Performed By: #### C DP, CP #### [address] [place], [place] [id number] [facility]: Andrea Jackson MD Monocytes (Bld) [#/Vol] 0.77 10*3/uL Normal 0.10-1.20 [facility] Comment on above: Performed By: #### C DP, CP #### [address] [place], [place] [id number] [facility]: Andrea Jackson MD Monocytes/100 WBC (Bld) 6 % Normal 3-12 [facility] Comment on above: Performed By: #### C DP, CP #### [address] [place], [place] [id number] [facility]: Andrea Jackson MD Neutrophil (Seg) 86 % High 36-65 [facility] Comment on above: Performed By: #### C DP, CP #### [address] [place], [place] [id number] [facility] Director: Andrea Jackson MD NRBC Automated 0.0 per 100 WBC Normal 0.0 [facility] Comment on above: Performed By: #### C DP, CP #### [facility] [address] [place] [address] [facility] Director: Andrea Jackson MD Platelet mean volume (Bld) [Entitic vol] 9.1 fL Normal 8.1-13.5 [facility] Comment on above: Performed By: #### C DP, CP #### [facility] [address] [place] [address] [facility] Director: Andrea Jackson MD Platelets (Bld) [#/Vol] 227 10*3/uL Normal 138-453 [facility] Comment on above: Performed By: #### C DP, CP #### [facility] [address] [place], [place] [id number] [facility] Director: Andrea Jackson MD RBC (Bld) [#/Vol] 5.34 10*6/uL Normal 4.21-5.77 [facility] Comment on above: Performed By: #### C DP, CP #### [address] [place], [place] [id number] [facility]: Andrea Jackson MD WBC (Bld) [#/Vol] 12.0 10*3/uL High 3.5-11.3 [facility] Comment on above: Performed By: #### C DP, CP #### [facility] [address] [place] [address] [facility] Director: Andrea Jackson MD Comp Metabolic Profon 2023 Albumin [Mass/Vol] 4.3 g/dL Normal 3.5-5.2 [facility] Comment on above: Performed By: #### C DP, CP ####[facility] [place] [address] Lab Director: Andrea Jackson MD Albumin/Glob Ratio 1.3 Normal 1.0-2.5 [facility] Comment on above: Performed By: #### C DP, CP ####[address] , [place] [id number] Lab Director: Andrea Jackson MD Alkaline Phos 75 U/L Normal 40-129 [facility] Comment on above: Performed By: #### C DP, CP ####[address] [place] [address] Lab Director: Andrea Jackson MD ALT [Catalytic activity/Vol] 27 U/L Normal 5-41 [facility] Comment on above: Performed By: #### C DP, CP ####[address] [place] [address] Lab Director: Andrea Jackson MD Anion gap [Moles/Vol] 14 mmol/L Normal 9-17 [facility] Comment on above: Performed By: #### C DP, CP ####[address] [place] [address] Lab Director: Andrea Jackson MD AST [Catalytic activity/Vol] 13 U/L Normal <40 [facility] Comment on above: Performed By: #### C DP, CP ####[address] [place] [address] Lab Director: Andrea Jackson MD Bilirubin [Mass/Vol] 0.7 mg/dL Normal 0.3-1.2 [facility] Comment on above: Performed By: #### C DP, CP ####[address] [place] [address] Lab Director: Andrea Jackson MD BUN/CRE Ratio 14 Normal 9-20 [facility] Comment on above: Performed By: #### C DP, CP ####[address] , [place] [id number] Lab Director: Andrea Jackson MD Calcium [Mass/Vol] 9.1 mg/dL Normal 8.6-10.4 [facility] Comment on above: Performed By: #### C DP, CP ####[address] [place] [address] Lab Director: Andrea Jackson MD Chloride [Moles/Vol] 103 mmol/L Normal 98-107 [facility] Comment on above: Performed By: #### C DP, CP ####[address] , [place] [id number] lab Director: Andrea Jackson MD CO2 [Moles/Vol] 21 mmol/L Normal 20-31 [facility] Comment on above: Performed By: #### C DP, CP ####[address] , [place] [id number] lab Director: Andrea Jackson MD Creatinine [Mass/Vol] 1.0 mg/dL Normal 0.7-1.2 [facility] Comment on above: Performed By: #### C DP, CP ####[address] [place] [address] lab Director: Andrea Jackson MD GFR/1.73 sq M.predicted among non-blacks MDRD (S/P/Bld) [Vol rate/Area] mL/min/{1.73_m2} Normal >60 [facility] Comment on above: Result Comment: These results are not intended for use in patients <18 years of age. eGFR results are calculated without a race factor using the 2020 CKD-EPI equation. Careful clinical correlation is recommended, particularly when comparing to results calculated using previous equations. The CKD-EPI equation is less accurate in patients with extremes of muscle mass, extra-renal metabolism of creatine, excessive creatine ingestion, or following therapy that affects renal tubular secretion. Performed By: #### C DP, CP ####[address] [place] [address] Lab Director: Andrea Jackson MD Glucose [Mass/Vol] 168 mg/dL High 70-99 [facility] Comment on above: Performed By: #### C DP, CP ####[address] , [place] [phone] Director: Andrea Jackson MD Potassium [Moles/Vol] 3.8 mmol/L Normal 3.7-5.3 [facility] Comment on above: Performed By: #### C DP, CP ####[address] [place] [address] Lab Director: Andrea Jackson MD Protein [Mass/Vol] 7.5 g/dL Normal 6.4-8.3 [facility] Comment on above: Performed By: #### C DP, CP ####[address] , [place] [phone] Director: Andrea Jackson MD Sodium [Moles/Vol] 138 mmol/L Normal 135-144 [facility] Comment on above: Performed By: #### C DP, CP ####[address] , [place] [phone] Director: Andrea Jackson MD Urea nitrogen [Mass/Vol] 14 mg/dL Normal 8-23 [facility] Comment on above: Performed By: #### C DP, CP ####[address] , [place] [phone] Director: Andrea Jackson MD Flu A/B Ag Detectionon 08-31 Flu A Ag Detection Negative Normal NEG [facility] Comment on above: Result Comment: for Influenza A Antigen Performed By: #### F LUABA ####[address] , [place] [phone] Director: Andrea Jackson MD Flu B Ag Detection Negative Normal NEG [facility] Comment on above: Result Comment: for Influenza B Antigen. Performed By: #### F LUABA ####[address] [place] [address] Lab Director: Andrea Jackson MD Glucose, Whole Bloodon 08-31 Glucose [Mass/Vol] 98 mg/dL Normal 74-100 [facility] [id number] 09-01-2023 SARS-CoV-2 (COVID-19) RNA PUMA+probe Ql (Unsp spec) Not detected Normal NOTDET [facility] Comment on above: Result Comment: Rapid NAAT: The specimen is NEGATIVE for SARS-CoV-2, the novel coronavirus associated with COVID-19. The ID NOW COVID-19 assay is designed to detect the virus that causes COVID-19 in patients with signs and symptoms of infection who are suspected of COVID-19. An individual without symptoms of COVID-19 and who is not shedding SARS-CoV-2 virus would expect to have a negative (not detected) result in this assay. Negative results should be treated as presumptive and, if inconsistent with clinical signs and symptoms or necessary for patient management, should be tested with an alternative molecular assay. Negative results do not preclude SARS-CoV-2 infection and should not be used as the sole basis for patient management decisions. Fact sheet for Healthcare Providers: https://www.fda.gov/media/689087/download Fact sheet for Patients: https://www.fda.gov/media/559162/download Methodology: Isothermal Nucleic Acid Amplification Performed By: #### C OVRB #### [facility] [address] [place] [address] [place] [address] [facility] Director: Andrea Jackson MD UA w/Reflex Cultureon 2023 Bilirubin, SemiQt,Ur Negative Normal NEG [facility] Comment on above: Performed By: #### U AX, UMICAO #### [facility] [address] [place] [address] [facility] Director: Andrea Jackson MD Blood, Urine 2+ Abnormal NEG [facility] Comment on above: Performed By: #### U AX, UMICAO #### [facility] [address] [place] [address] [facility] Director: Andrea Jackson MD Clarity (U) SLIGHTLY CLOUDY Abnormal CLEAR [facility] Comment on above: Performed By: #### U AX, UMICAO #### [facility] [address] [place], [place] 1880383 [facility] Director: Adnrea Jackson MD Color (U) Yellow Normal YEL [facility] Comment on above: Performed By: #### U AX, UMICAO #### [facility] [address] [place], [place] [id number] [facility] Director: Andrea Jackson MD Glucose Ql (U) TRACE Abnormal NEG [facility] Comment on above: Performed By: #### U AX, UMICAO #### [facility] [address] [place] [address] Dr. [place], [place] [id number] [facility] Director: Andrea Jackson MD Ketones Ql (U) 1+ mg/dL Abnormal NEG [facility] Comment on above: Performed By: #### U AX, UMICAO #### [facility] [address] [place] [address] Dr. [place], [place] [id number] [facility] Director: Andrea Jackson MD Leukocyte esterase Test strip Ql (U) TRACE Abnormal NEG [facility] Comment on above: Performed By: #### U AX, UMICAO #### [facility] [address] [place], [place] [id number] [facility] Director: Andrea Jackson MD Nitrite,Ur Negative Normal NEG [facility] Comment on above: Performed By: #### U AX, UMICAO #### [facility] [address] [place], [place] [id number] [facility] Director: Andrea Jackson MD PH,Ur 6.0 Normal 5.0-9.0 [facility] Comment on above: Performed By: #### U AX, UMICAO #### [facility] [address] [place], [place] [id number] [facility]: Andrea Jackson MD Protein Ql (U) 1+ mg/dL Abnormal NEG [facility] Comment on above: Performed By: #### U AX UMICAO #### [facility] [address] [place] [address] Dr. [place], [place] [id number] [facility]: Andrea Jackson MD Spec. [place],Ur 1.020 Normal 1.010-1.020 [facility] Comment on above: Performed By: #### U AX UMICAO #### [address] [place], [place] [id number] [facility] Director: Andrea Jackson MD Urobilinogen,Ur Normal Normal 0.0-1.0 [facility] Comment on above: Performed By: #### U AX UMICAO #### [address] [place], [place] [id number] [facility]: Andrea Jackson MD Urinalysis,Microon 4 Bacteria 1+ Abnormal NONE [facility] Comment on above: Performed By: #### U AXGARETHICAO #### [address] [place], [place] [id number] [facility] Director: Andrea Jackson MD Epithelial cells LM Ql (Urine sed) None Normal 0-5 [facility] Comment on above: Performed By: #### U AX UMICAO #### [facility] [address] [place] [address] Dr. [place], [place] [id number] [facility] Director: Adnrea Jackson MD Epithelial, Renal 0 TO 2 Normal 0 [facility] Comment on above: Performed By: #### U AX UMICAO #### [address] [place] [address] [facility] Director: Andrea Jackson MD Mucus Strands TRACE Abnormal NONE [facility] Comment on above: Performed By: #### U AX UMICAO #### [facility] [address] [place], [place] [id number] [facility] Director: Andrea Jackson MD Urine RBC's 20 TO 50 Normal 0-2 [facility] Comment on above: Performed By: #### U AX, UMICAO #### [facility] [address] [place] [address] [facility] Director: Andrea Jackson MD Urine WBC's 10 TO 20 Normal 0-5 [facility] Comment on above: Performed By: #### U AX, UMICAO #### [facility] [address] [place] [address] [facility] Director: Andrea Jackson MD FLUORO FOR SURGICAL PROCEDUR ESon 08-29-2023 FLUORO FOR SURGICAL PROCEDURES Radiology exam is complete. No Radiologist dictation. Please follow up with ordering provider. Final result Normal [facility] Automated epithelial cells c ount in urine sediment (number/area)on 08-28-2023 Epithelial cells Auto (Urine sed) [#/Area] NONE SEEN #/LPF NONE/RARE [facility] Automated leukocytes count i n urine sediment (number/area)on 08-28-2023 WBC Auto (Urine sed) [#/Area] 0-2 #/HPF 0-2 [facility] Automated urine specific gra vity by refractometryon 08-28-2023 Specific gravity Refractometry automated (U) [Rel density] 1.025 1.005-1.025 [facility] Basophils Auto (Bld) [#/Vol] on 08-28-2023 Basophils (Bld) [#/Vol] 0.0 10 3/uL 0.0-0.1 [facility] Basophils/100 WBC Auto (Bld) on 08-28-2023 Basophils/100 WBC (Bld) 0.6 % 0.2-2.0 [facility] Bilirubin Auto test strip (U ) [Mass/Vol]on 08-28-2023 Bilirubin (U) [Mass/Vol] Negative NEGATIVE [facility] Casts typing in urine sedime nt by light microscopyon 08-28-2023 Casts LM Nom (Urine sed) NONE SEEN #/LPF NONE S EEN [facility] Color Auto (U)on 08-28-2023 Color (U) YELLOW YELLOW [facility] Eosinophils/100 WBC Auto (Bl d)on 08-28-2023 Eosinophils/100 WBC (Bld) 2.1 % 0.9-7.0 [facility] Erythrocyte distribution wid th Auto (RBC) [Ratio]on 08-28-2023 Erythrocyte distribution width (RBC) [Ratio] 12.6 % 11.0-15.0 [facility] Estimated glomerular filtrat ion rate (GFR) non- Americanon 08-28-2023 GFR/1.73 sq M.predicted among non-blacks MDRD (S/P/Bld) [Vol rate/Area] 45 mL/min/{1.73_m2} >=60 [facility] Globulin Calc (S) [Mass/Vol] on 08-28-2023 Globulin (S) [Mass/Vol] 3.9 g/dL [facility] Hematocrit Auto (Bld) [Volum e fraction]on 08-28-2023 Hematocrit (Bld) [Volume fraction] 45.0 % 42.0-54.0 [facility] Hemoglobin [Mass/volume] in Bloodon 08-28-2023 Hemoglobin (Bld) [Mass/Vol] 15.0 g/dL 14.0-18.0 [facility] Ketones Auto test strip (U) [Mass/Vol]on 08-28-2023 Ketones (U) [Mass/Vol] TRACE mg/dL NEGATIVE [facility] Laboratory - Chemistry and C hemistry - challengeon 08-28-2023 Albumin [Mass/Vol] 3.6 g/dL 3.4-5.0 [facility] ALP [Catalytic activity/Vol] 71 U/L 46-116 [facility] ALT [Catalytic activity/Vol] 41 U/L 16-63 [facility] [facility] AST [Catalytic activity/Vol] 31 U/L 15-37 [facility] Bilirubin [Mass/Vol] 1.0 mg/dL 0.2-1.0 [facility] Calcium [Mass/Vol] 8.5 mg/dL 8.5-10.1 [facility] Chloride [Moles/Vol] 102 mmol/L 98-107 [facility] CO2 [Moles/Vol] 27.8 mmol/L 21.0-32.0 [facility] Creatinine [Mass/Vol] 1.56 mg/dL 0.70-1.30 [facility] GFR/1.73 sq M.predicted MDRD (S/P/Bld) [Vol rate/Area] 55 mL/min/{1.73_m2} >=60 [facility] Glucose [Mass/Vol] 194 mg/dL 74-106 [facility] Lipase [Catalytic activity/Vol] 18.0 U/L 16.0-77.0 [facility] Potassium [Moles/Vol] 4.3 mmol/L 3.5-5.1 [facility] Protein [Mass/Vol] 7.5 g/dL 6.4-8.2 [facility] Sodium [Moles/Vol] 138 mmol/L 136-145 [facility] Urea nitrogen [Mass/Vol] 11.0 mg/dL 7.0-18.0 [facility] Urea nitrogen/Creatinine [Mass ratio] 7.1 mg/mg [facility] Laboratory - Hematology and Cell countson 08-28-2023 Immature granulocytes/100 WBC (Bld) 0.3 % 0.0-0.5 [facility] Leukocytes [#/volume] correc caprice for nucleated erythrocytes in Blood by Automated counon 08-28-2023 WBC corrected for nucl RBC Auto (Bld) [#/Vol] 7.2 10 3/uL 4.0-11.0 [facility] Lymphocytes Auto (Bld) [#/Vo l]on 08-28-2023 Lymphocytes (Bld) [#/Vol] 2.0 10 3/uL 1.2-3.8 [facility] Lymphocytes/100 WBC Auto (Bl d)on 08-28-2023 Lymphocytes/100 WBC (Bld) 27.6 % 20.5-60.0 [facility] MCH Auto (RBC) [Entitic mass ]on 08-28-2023 MCH (RBC) [Entitic mass] 29.1 pg 25.9-34.0 [facility] MCHC Auto (RBC) [Mass/Vol]on 08-28-2023 MCHC (RBC) [Mass/Vol] 33.3 g/dL 29.9-35.2 [facility] MCV Auto (RBC) [Entitic vol] on 08-28-2023 MCV (RBC) [Entitic vol] 87.2 fL 80.0-94.0 [facility] Monocytes Auto (Bld) [#/Vol] on 08-28-2023 Monocytes (Bld) [#/Vol] 0.5 10 3/uL 0.3-0.8 [facility] Monocytes/100 WBC Auto (Bld) on 08-28-2023 Monocytes/100 WBC (Bld) 7.2 % 1.7-12.0 [facility] Mucus LM Ql (Urine sed)on Mucus Ql (Urine sed) NONE SEEN NONE SEEN [facility] Neutrophils Auto (Bld) [#/Vo l]on 08-28-2023 Neutrophils (Bld) [#/Vol] 4.5 10 3/uL 1.4-6.5 [facility] Neutrophils/100 WBC Auto (Bl d)on 08-28-2023 Neutrophils/100 WBC (Bld) 62.2 % 43.0-75.0 [facility] No Panel Informationon 08-27 Urine Transitional Epithelial Cells RARE #/LPF NONE SEEN [facility] Eosinophils # (Auto) 0.2 10 3/uL 0.0-0.7 [facility] Immature Granulocyte # (Auto) 0.02 10 3/uL 0.00-0.03 [facility] Platelet mean volume Auto (B ld) [Entitic vol]on 08-28-2023 Platelet mean volume (Bld) [Entitic vol] 9.7 fL 9.5-13.5 [facility] Platelets Auto (Bld) [#/Vol] on 08-28-2023 Platelets (Bld) [#/Vol] 232 10 3/uL 150-450 [facility] Protein Auto test strip (U) [Mass/Vol]on 08-28-2023 Protein (U) [Mass/Vol] Negative NEG/TRACE [facility] RBC Auto (Bld) [#/Vol]on RBC (Bld) [#/Vol] 5.16 10 6/uL 4.70-6.10 [place] Serum or plasma albumin/glob ulin mass ratioon 08-28-2023 Albumin/Globulin [Mass ratio] 0.9 {ratio} [facility] Serum or plasma anion gap de terminationon 08-28-2023 Anion gap [Moles/Vol] 12.5 mmol/L [facility] Specific gravity Auto test s trip (U) [Rel density]on 08-28-2023 Specific gravity (U) [Rel density] CLEAR CLEAR [facility] Urine bacteria detection by automated methodon 08-28-2023 Bacteria Auto Ql (U) NONE SEEN #/HPF NONE SEEN [facility] Urine glucose measurement by test strip (mass/volume)on 08-28-2023 Glucose Test strip (U) [Mass/Vol] 500 mg/dL NEGATIVE [facility] Urine hemoglobin detection b y automated test stripon 08-28-2023 Hemoglobin Auto test strip Ql (U) Negative NEGATIVE [facility] Urine nitrite detection by a utomated test stripon 08-28-2023 Nitrite Auto test strip Ql (U) Negative NEGATIVE [facility] Urine sediment crystal ident ification by light microscopyon 08-28-2023 Crystals LM Nom (Urine sed) None Seen #/HPF None Seen [facility] Urine sediment leukocyte cou nt by microscopy (number/high power field)on 08-28-2023 WBC LM.HPF (Urine sed) [#/Area] NONE SEEN #/HPF NONE SEEN [facility] Urobilinogen Auto test strip (U) [Mass/Vol]on 08-28-2023 Urobilinogen Qn (U) 0.2 {Devorah'U}/dL 0.2-1.0 [facility] pH Auto test strip (U)on pH (U) 5.5 [pH] 5.0-9.0 [facility] Automated epithelial cells c ount in urine sediment (number/area)on 08-26-2023 Epithelial cells Auto (Urine sed) [#/Area] NONE SEEN #/LPF NONE/RARE [facility] Automated leukocytes count i n urine sediment (number/area)on 08-26-2023 WBC Auto (Urine sed) [#/Area] 0-2 #/HPF 0-2 [facility] Automated urine specific gra vity by refractometryon 08-26-2023 Specific gravity Refractometry automated (U) [Rel density] 1.025 1.005-1.025 [facility] Basophils Auto (Bld) [#/Vol] on 08-26-2023 Basophils (Bld) [#/Vol] 0.0 10 3/uL 0.0-0.1 [facility] Basophils/100 WBC Auto (Bld) on 08-26-2023 Basophils/100 WBC (Bld) 0.4 % 0.2-2.0 [facility] Bilirubin Auto test strip (U ) [Mass/Vol]on 08-26-2023 Bilirubin (U) [Mass/Vol] Negative NEGATIVE [facility] Casts typing in urine sedime nt by light microscopyon 08-26-2023 Casts LM Nom (Urine sed) NONE SEEN #/LPF NONE S EEN [facility] Color Auto (U)on 08-26-2023 Color (U) YELLOW YELLOW [facility] Eosinophils/100 WBC Auto (Bl d)on 08-26-2023 Eosinophils/100 WBC (Bld) 1.9 % 0.9-7.0 [facility] Erythrocyte distribution wid th Auto (RBC) [Ratio]on 08-26-2023 Erythrocyte distribution width (RBC) [Ratio] 12.7 % 11.0-15.0 [facility] Estimated glomerular filtrat ion rate (GFR) non- Americanon 08-26-2023 GFR/1.73 sq M.predicted among non-blacks MDRD (S/P/Bld) [Vol rate/Area] mL/min/{1.73_m2} >=60 [facility] Globulin Calc (S) [Mass/Vol] on 08-26-2023 Globulin (S) [Mass/Vol] 3.7 g/dL [facility] Hematocrit Auto (Bld) [Volum e fraction]on 08-26-2023 Hematocrit (Bld) [Volume fraction] 43.7 % 42.0-54.0 [facility] Hemoglobin [Mass/volume] in Bloodon 08-26-2023 Hemoglobin (Bld) [Mass/Vol] 15.2 g/dL 14.0-18.0 [facility] Ketones Auto test strip (U) [Mass/Vol]on 08-26-2023 Ketones (U) [Mass/Vol] Negative NEGATIVE [facility] Laboratory - Chemistry and C hemistry - challengeon 08-26-2023 Albumin [Mass/Vol] 3.6 g/dL 3.4-5.0 [facility] ALP [Catalytic activity/Vol] 75 U/L 46-116 [facility] ALT [Catalytic activity/Vol] 46 U/L 16-63 [facility] AST [Catalytic activity/Vol] 32 U/L 15-37 [facility] Bilirubin [Mass/Vol] 0.6 mg/dL 0.2-1.0 [facility] Calcium [Mass/Vol] 9.1 mg/dL 8.5-10.1 [facility] Chloride [Moles/Vol] 102 mmol/L 98-107 [facility] CO2 [Moles/Vol] 26.3 mmol/L 21.0-32.0 [facility] Creatinine [Mass/Vol] 1.12 mg/dL 0.70-1.30 [facility] GFR/1.73 sq M.predicted MDRD (S/P/Bld) [Vol rate/Area] mL/min/{1.73_m2} >=60 [facility] Glucose [Mass/Vol] 152 mg/dL 74-106 [facility] Natriuretic peptide B (Bld) [Mass/Vol] 20.0 pg/mL <=900.0 [facility] Potassium [Moles/Vol] 3.9 mmol/L 3.5-5.1 [facility] Protein [Mass/Vol] 7.3 g/dL 6.4-8.2 [facility] Sodium [Moles/Vol] 137 mmol/L 136-145 [facility] Urea nitrogen [Mass/Vol] 18.0 mg/dL 7.0-18.0 [facility] Urea nitrogen/Creatinine [Mass ratio] 16.1 mg/mg [facility] Laboratory - Hematology and Cell countson 08-26-2023 Immature granulocytes/100 WBC (Bld) 0.3 % 0.0-0.5 [facility] Leukocytes [#/volume] correc caprice for nucleated erythrocytes in Blood by Automated counon 08-26-2023 WBC corrected for nucl RBC Auto (Bld) [#/Vol] 10.2 10 3/uL 4.0-11.0 [facility] Lymphocytes Auto (Bld) [#/Vo l]on 08-26-2023 Lymphocytes (Bld) [#/Vol] 2.9 10 3/uL 1.2-3.8 [facility] Lymphocytes/100 WBC Auto (Bl d)on 08-26-2023 Lymphocytes/100 WBC (Bld) 28.4 % 20.5-60.0 [facility] MCH Auto (RBC) [Entitic mass ]on 08-26-2023 MCH (RBC) [Entitic mass] 30.0 pg 25.9-34.0 [facility] MCHC Auto (RBC) [Mass/Vol]on 08-26-2023 MCHC (RBC) [Mass/Vol] 34.8 g/dL 29.9-35.2 [facility] MCV Auto (RBC) [Entitic vol] on 08-26-2023 MCV (RBC) [Entitic vol] 86.4 fL 80.0-94.0 [facility] Monocytes Auto (Bld) [#/Vol] on 08-26-2023 Monocytes (Bld) [#/Vol] 0.7 10 3/uL 0.3-0.8 [facility] Monocytes/100 WBC Auto (Bld) on 08-26-2023 Monocytes/100 WBC (Bld) 7.2 % 1.7-12.0 [facility] Mucus LM Ql (Urine sed)on Mucus Ql (Urine sed) NONE SEEN NONE SEEN [facility] Neutrophils Auto (Bld) [#/Vo l]on 08-26-2023 Neutrophils (Bld) [#/Vol] 6.3 10 3/uL 1.4-6.5 [facility] Neutrophils/100 WBC Auto (Bl d)on 08-26-2023 Neutrophils/100 WBC (Bld) 61.8 % 43.0-75.0 [facility] No Panel Informationon 08-25 Urine Microscopic Review YES [facility] Eosinophils # (Auto) 0.2 10 3/uL 0.0-0.7 [facility] Immature Granulocyte # (Auto) 0.03 10 3/uL 0.00-0.03 [facility] Troponin I High Sensitivity <4.0 pg/mL 4.0-76.1 [facility] Comment on above: CUT-OFF POINTS HAVE BEEN ESTABLISHED BASED ON THE FOURTHUNIVERSAL DEFINITION OF MYOCARDIAL INFARCTION. THE UPPERREFERENCE LIMIT (URL) OF TROPONIN, DEFINED THE 99THPERCENTILE OF cTnI DISTRIBUTION IN A REFERENCE POPULATION,HAS BEEN CONFIRMED THE DECISION THRESHOLD FOR MIDIAGNOSIS.99TH PERCENTILE = 76.2 PG/MLNOTE: HIGH-SENSITIVITY TROPONIN ASSAY IS NOT INTENDED TO BEUSED IN ISOLATION BUT SHOULD BE INTERPRETED IN CONJUNCTIONWITH OTHER DIAGNOSTIC AND CLINICAL INFORMATION. Platelet mean volume Auto (B ld) [Entitic vol]on 08-26-2023 Platelet mean volume (Bld) [Entitic vol] 10.4 fL 9.5-13.5 [facility] Platelets Auto (Bld) [#/Vol] on 08-26-2023 Platelets (Bld) [#/Vol] 235 10 3/uL 150-450 [facility] Protein Auto test strip (U) [Mass/Vol]on 08-26-2023 Protein (U) [Mass/Vol] Negative NEG/TRACE [facility] RBC Auto (Bld) [#/Vol]on RBC (Bld) [#/Vol] 5.06 10 6/uL 4.70-6.10 [place] Serum or plasma albumin/glob ulin mass ratioon 08-26-2023 Albumin/Globulin [Mass ratio] 1.0 {ratio} [facility] Serum or plasma anion gap de terminationon 08-26-2023 Anion gap [Moles/Vol] 12.6 mmol/L [facility] Specific gravity Auto test s trip (U) [Rel density]on 08-26-2023 Specific gravity (U) [Rel density] CLEAR CLEAR [facility] Urine bacteria detection by automated methodon 08-26-2023 Bacteria Auto Ql (U) NONE SEEN #/HPF NONE SEEN [facility] Urine glucose measurement by test strip (mass/volume)on 08-26-2023 Glucose Test strip (U) [Mass/Vol] Negative NEGATIVE [facility] Urine hemoglobin detection b y automated test stripon 08-26-2023 Hemoglobin Auto test strip Ql (U) TRACE-I NEGATIVE [facility] Urine nitrite detection by a utomated test stripon 08-26-2023 Nitrite Auto test strip Ql (U) Negative NEGATIVE [facility] Urine sediment crystal ident ification by light microscopyon 08-26-2023 Crystals LM Nom (Urine sed) None Seen #/HPF None Seen [facility] Urine sediment leukocyte cou nt by microscopy (number/high power field)on 08-26-2023 WBC LM.HPF (Urine sed) [#/Area] NONE SEEN #/HPF NONE SEEN [facility] Urobilinogen Auto test strip (U) [Mass/Vol]on 08-26-2023 Urobilinogen Qn (U) 0.2 {Devorah'U}/dL 0.2-1.0 [facility] pH Auto test strip (U)on pH (U) 5.5 [pH] 5.0-9.0 [facility] Automated epithelial cells c ount in urine sediment (number/area)on 08-20-2023 Epithelial cells Auto (Urine sed) [#/Area] RARE #/LPF NONE/RARE [facility] Automated leukocytes count i n urine sediment (number/area)on 08-20-2023 WBC Auto (Urine sed) [#/Area] 20-50 #/HPF 0-2 [facility] Automated urine hyaline cast s count (number/volume)on 08-20-2023 Hyaline casts Auto (U) [#/Vol] RARE [facility] Automated urine specific gra vity by refractometryon 08-20-2023 Specific gravity Refractometry automated (U) [Rel density] >=1.030 1.005-1.025 [facility] Basophils Auto (Bld) [#/Vol] on 08-20-2023 Basophils (Bld) [#/Vol] 0.1 10 3/uL 0.0-0.1 [facility] Basophils/100 WBC Auto (Bld) on 08-20-2023 Basophils/100 WBC (Bld) 0.8 % 0.2-2.0 [facility] Bilirubin Auto test strip (U ) [Mass/Vol]on 08-20-2023 Bilirubin (U) [Mass/Vol] Negative NEGATIVE [facility] Casts typing in urine sedime nt by light microscopyon 08-20-2023 Casts LM Nom (Urine sed) SEEN #/LPF NONE SEEN [facility] Color Auto (U)on 08-20-2023 Color (U) YELLOW YELLOW [facility] Eosinophils/100 WBC Auto (Bl d)on 08-20-2023 Eosinophils/100 WBC (Bld) 2.8 % 0.9-7.0 [facility] Erythrocyte distribution wid th Auto (RBC) [Ratio]on 08-20-2023 Erythrocyte distribution width (RBC) [Ratio] 12.8 % 11.0-15.0 [facility] Estimated glomerular filtrat ion rate (GFR) non- Americanon 08-20-2023 GFR/1.73 sq M.predicted among non-blacks MDRD (S/P/Bld) [Vol rate/Area] mL/min/{1.73_m2} >=60 [facility] Hematocrit Auto (Bld) [Volum e fraction]on 08-20-2023 Hematocrit (Bld) [Volume fraction] 46.9 % 42.0-54.0 [facility] Hemoglobin [Mass/volume] in Bloodon 08-20-2023 Hemoglobin (Bld) [Mass/Vol] 16.1 g/dL 14.0-18.0 [facility] Ketones Auto test strip (U) [Mass/Vol]on 08-20-2023 Ketones (U) [Mass/Vol] Negative NEGATIVE [facility] Laboratory - Chemistry and C hemistry - challengeon 08-20-2023 Calcium [Mass/Vol] 8.4 mg/dL 8.5-10.1 [facility] Chloride [Moles/Vol] 103 mmol/L 98-107 [facility] CO2 [Moles/Vol] 25.7 mmol/L 21.0-32.0 [facility] Creatinine [Mass/Vol] 1.04 mg/dL 0.70-1.30 [facility] GFR/1.73 sq M.predicted MDRD (S/P/Bld) [Vol rate/Area] mL/min/{1.73_m2} >=60 [facility] Glucose [Mass/Vol] 185 mg/dL 74-106 [facility] Potassium [Moles/Vol] 3.8 mmol/L 3.5-5.1 [facility] Sodium [Moles/Vol] 140 mmol/L 136-145 [facility] Urea nitrogen [Mass/Vol] 12.0 mg/dL 7.0-18.0 [facility] Urea nitrogen/Creatinine [Mass ratio] 11.5 mg/mg [facility] Laboratory - Hematology and Cell countson 08-20-2023 Immature granulocytes/100 WBC (Bld) 0.5 % 0.0-0.5 [facility] Leukocytes [#/volume] correc caprice for nucleated erythrocytes in Blood by Automated counon 08-20-2023 WBC corrected for nucl RBC Auto (Bld) [#/Vol] 7.7 10 3/uL 4.0-11.0 [facility] Lymphocytes Auto (Bld) [#/Vo l]on 08-20-2023 Lymphocytes (Bld) [#/Vol] 3.5 10 3/uL 1.2-3.8 [facility] Lymphocytes/100 WBC Auto (Bl d)on 08-20-2023 Lymphocytes/100 WBC (Bld) 45.5 % 20.5-60.0 [facility] MCH Auto (RBC) [Entitic mass ]on 08-20-2023 MCH (RBC) [Entitic mass] 29.8 pg 25.9-34.0 [facility] MCHC Auto (RBC) [Mass/Vol]on 08-20-2023 MCHC (RBC) [Mass/Vol] 34.3 g/dL 29.9-35.2 [facility] MCV Auto (RBC) [Entitic vol] on 08-20-2023 MCV (RBC) [Entitic vol] 86.9 fL 80.0-94.0 [facility] Monocytes Auto (Bld) [#/Vol] on 08-20-2023 Monocytes (Bld) [#/Vol] 0.6 10 3/uL 0.3-0.8 [facility] Monocytes/100 WBC Auto (Bld) on 08-20-2023 Monocytes/100 WBC (Bld) 7.3 % 1.7-12.0 [facility] Mucus LM Ql (Urine sed)on Mucus Ql (Urine sed) TRACE NONE SEEN [facility] Neutrophils Auto (Bld) [#/Vo l]on 08-20-2023 Neutrophils (Bld) [#/Vol] 3.3 10 3/uL 1.4-6.5 [facility] Neutrophils/100 WBC Auto (Bl d)on 08-20-2023 Neutrophils/100 WBC (Bld) 43.1 % 43.0-75.0 [facility] No Panel Informationon 08-19 Urine Culture Reflexed NO [facility] Urine Microscopic Review YES [facility] Eosinophils # (Auto) 0.2 10 3/uL 0.0-0.7 [facility] Immature Granulocyte # (Auto) 0.04 10 3/uL 0.00-0.03 [facility] Platelet mean volume Auto (B ld) [Entitic vol]on 08-20-2023 Platelet mean volume (Bld) [Entitic vol] 9.9 fL 9.5-13.5 [facility] Platelets Auto (Bld) [#/Vol] on 08-20-2023 Platelets (Bld) [#/Vol] 259 10 3/uL 150-450 [facility] Protein Auto test strip (U) [Mass/Vol]on 08-20-2023 Protein (U) [Mass/Vol] 30 mg/dL NEG/TRACE [facility] RBC Auto (Bld) [#/Vol]on RBC (Bld) [#/Vol] 5.40 10 6/uL 4.70-6.10 [place] Serum or plasma anion gap de terminationon 08-20-2023 Anion gap [Moles/Vol] 15.1 [facility] gravity Auto test s trip (U) [Rel density]on 08-20-2023 Specific gravity (U) [Rel density] CLEAR CLEAR [facility] Urine bacteria detection by automated methodon 08-20-2023 Bacteria Auto Ql (U) TRACE #/HPF NONE SEEN [facility] Urine glucose measurement by test strip (mass/volume)on 08-20-2023 Glucose Test strip (U) [Mass/Vol] Negative NEGATIVE [facility] Urine hemoglobin detection b y automated test stripon 08-20-2023 Hemoglobin Auto test strip Ql (U) LARGE NEGATIVE [facility] Urine nitrite detection by a utomated test stripon 08-20-2023 Nitrite Auto test strip Ql (U) Negative NEGATIVE [facility] Urine sediment crystal ident ification by light microscopyon 08-20-2023 Crystals LM Nom (Urine sed) None Seen #/HPF None Seen [facility] Urine sediment leukocyte cou nt by microscopy (number/high power field)on 08-20-2023 WBC LM.HPF (Urine sed) [#/Area] 0-2 #/HPF NONE SEEN [facility] Urobilinogen Auto test strip (U) [Mass/Vol]on 08-20-2023 Urobilinogen Qn (U) 0.2 {Devorah'U}/dL 0.2-1.0 [facility] pH Auto test strip (U)on pH (U) 5.5 [pH] 5.0-9.0 [facility] CBC AUTO DIFFon 08-17-2022 BASO # 0.0 103/ul Normal 0.0-0.1 [facility] Comment on above: Performed By: #### C MANUEL TSH #### [facility] [address] [address] [address] Cipriano Simon Basophils/100 WBC (Bld) 0.8 % Normal 0.2-2.0 [facility] Comment on above: Performed By: #### C MANUEL, TSH #### [facility] [address] [address] [address] Cipriano Simon EO # 0.1 103/ul Normal 0.0-0.7 [facility] Comment on above: Performed By: #### C MP, TSH #### [facility] [address] [address] [address] Cipriano Simon Eosinophils/100 WBC (Bld) 1.8 % Normal 0.9-7.0 [facility] Comment on above: Performed By: #### C MP, TSH #### [facility] [address] [place] [address] Dr. Cipriano Simon Erythrocyte distribution width (RBC) [Ratio] 12.8 % Normal 11.0-15.0 [facility] Comment on above: Performed By: #### C MP, TSH #### [facility] [address] [place] [address] Dr. Cipriano Simon Hematocrit (Bld) [Volume fraction] 46.3 % Normal 42.0-54.0 [facility] Comment on above: Performed By: #### C MP, TSH #### [facility] [address] [place] [address] Dr. Cipriano Simon Hemoglobin (Bld) [Mass/Vol] 15.8 g/dL Normal 14.0-18.0 [facility] Comment on above: Performed By: #### C MP, TSH #### [facility] [address] [place] [address] Dr. Cipriano Simon IG # 0.05 10e3/ul Critically high 0.00-0.03 [facility] Comment on above: Performed By: #### C MP, TSH #### [facility] [address] [place] [address] Dr. Cipriano Simon IG % 1.0 % Critically high 0.0-0.5 [facility] Comment on above: Performed By: #### C MP, TSH #### [facility] [address] [place] [address] Dr. Cipriano Simon LYMPH # 2.6 103/ul Normal 1.2-3.8 [facility] Comment on above: Performed By: #### C MP, TSH #### [facility] [address] [address] [address] Cipriano Simon Lymphocytes/100 WBC (Bld) 52.7 % Normal 20.5-60.0 [facility] Comment on above: Performed By: #### C MP, TSH #### [facility] [address] [address] [address] Cipriano Simon MANUAL DIFF REQ NO Normal [facility] Comment on above: Performed By: #### C MP, TSH #### [facility] [address] [address] [address] Cipriano Simon MCH (RBC) [Entitic mass] 29.0 pg Normal 25.9-34.0 [facility] Comment on above: Performed By: #### C MP, TSH #### [facility] [address] [place] [address] Dr. Cipriano Simon MCHC (RBC) [Mass/Vol] 34.1 g/dL Normal 29.9-35.2 [facility] Comment on above: Performed By: #### C MP, TSH #### [facility] [address] [address] [address] Cipriano Simon MCV (RBC) [Entitic vol] 85.0 fL Normal 80.0-94.0 [facility] Comment on above: Performed By: #### C MP, TSH #### [facility] [address] [place] [address] Dr. Cipriano Simon MONO # 0.4 103/ul Normal 0.3-0.8 [facility] Comment on above: Performed By: #### C MP, TSH #### [facility] [address] [address] [address] Cipriano Simon Monocytes/100 WBC (Bld) 7.2 % Normal 1.7-12.0 [facility] Comment on above: Performed By: #### C MP, TSH #### [facility] [address] [place] [address] Dr. Cipriano Simon NEUT # 1.8 103/ul Normal 1.4-6.5 [facility] Comment on above: Performed By: #### C MP, TSH #### [facility] [address] [address] [address] Cipriano Simon Neutrophils/100 WBC (Bld) 36.5 % Critically low 43.0-75.0 [facility] Comment on above: Performed By: #### C MP, TSH #### [facility] [address] [address] [address] Cipriano Simon Platelet mean volume (Bld) [Entitic vol] 10.7 fL Normal 9.5-13.5 [facility] Comment on above: Performed By: #### C MP, TSH #### [facility] [address] [place] [address] Dr. Cipriano Simon PLT 214 103/ul Normal 150-450 [facility] Comment on above: Performed By: #### C MP, TSH #### [facility] [address] [place] [address] Dr. Cipriano Simon RBC 5.45 106/ul Normal 4.70-6.10 [facility] Comment on above: Performed By: #### C MP, TSH #### [facility] [address] [address] [address] Cipriano Simon WBC 5.0 103/ul Normal 4.0-11.0 [facility] Comment on above: Performed By: #### C MP, TSH #### [facility] [address] [place] [address] Dr. Cipriano Simon GLYCOHEMOGLOBIN A1Con 2022 ADA RECOMMENDATION SEE BELOW Normal [facility] Comment on above: Result Comment: ADA RECOMMENDED LIMIT 4.0 - 6.0 ADA THERAPEUTIC TARGET < 7.0 ACTION SUGGESTED > 7.0 Performed By: #### C MP, TSH #### [facility] [address] [place] [address] Dr. Cipriano Simon Glucose [Mass/Vol] 209 mg/dL Normal [facility] Comment on above: Performed By: #### C MP, TSH #### [facility] [address] [place] [address] Dr. Cipriano Simon HbA1c (Bld) [Mass fraction] 8.9 % Critically high 4.5-6.2 [facility] Comment on above: Performed By: #### C MP, TSH #### [facility] [address] [place] [address] Dr. Cipriano Simon MICROALBUMIN, RAND URon 03-0 mALB 1.8 mg/L Normal <=30.0 [facility] Comment on above: Performed By: #### M ALBR #### [facility] [address] [place] [address] Dr. Cipriano Simon PROF 14(COMP METB)on 023 Albumin [Mass/Vol] 4.1 g/dL Normal 3.4-5.0 [facility] Comment on above: Performed By: #### C MP, TSH #### [facility] [address] [place] [address] Dr. Cipriano Simon Albumin/Globulin [Mass ratio] 1.2 {ratio} Normal [facility] Comment on above: Performed By: #### C MP, TSH #### [facility] [address] [place] [address] Dr. Cipriano Simon ALP [Catalytic activity/Vol] 106 U/L Normal 46-116 [facility] Comment on above: Performed By: #### C MP, TSH #### [facility] [address] [place] [address] Dr. Cipriano Simon ALT [Catalytic activity/Vol] 42 U/L Normal 16-63 [facility] Comment on above: Performed By: #### C MP, TSH #### [facility] [address] [place] [address] Dr. Cipriano Simon Anion gap [Moles/Vol] 12.7 mmol/L Normal [facility] Comment on above: Performed By: #### C MP, TSH #### [facility] [address] [place] [address] Dr. Cipriano Simon AST [Catalytic activity/Vol] 15 U/L Normal 15-37 [facility] Comment on above: Performed By: #### C MP, TSH #### [facility] [address] [address] [address] Cipriano Simon Bilirubin [Mass/Vol] 0.5 mg/dL Normal 0.2-1.0 [facility] Comment on above: Performed By: #### C MP, TSH #### [facility] [address] [address] [address] Cipriano Simon Calcium [Mass/Vol] 8.9 mg/dL Normal 8.5-10.1 [facility] Comment on above: Performed By: #### C MP, TSH #### [facility] [address] [place] [address] Dr. Cipriano Simon Chloride [Moles/Vol] 101 mmol/L Normal 98-107 [facility] Comment on above: Performed By: #### C MP, TSH #### [facility] [address] [place] [address] Dr. Cipriano Simon CO2 [Moles/Vol] 29.1 mmol/L Normal 21.0-32.0 [facility] Comment on above: Performed By: #### C MP, TSH #### [facility] [address] [place] [address] Dr. Cipriano Simon Creatinine [Mass/Vol] 0.95 mg/dL Normal 0.70-1.30 [facility] Comment on above: Performed By: #### C MP, TSH #### [facility] [address] [place] [address] Dr. Cipriano Simon EGFR-AF SURINAMESE >60 Normal >=60 [facility] Comment on above: Performed By: #### C MP, TSH #### [facility] [address] [place] [address] Dr. Cipriano Simon EGFR-NON AF SURINAMESE >60 Normal >=60 [facility] Comment on above: Performed By: #### C MP, TSH #### [facility] [address] [place] [address] Dr. Cipriano Simon Globulin (S) [Mass/Vol] 3.5 g/dL Normal [facility] Comment on above: Performed By: #### C MP, TSH #### [facility] [address] [place] [address] Dr. Cipriano Simon Glucose [Mass/Vol] 256 mg/dL Critically high 74-106 [facility] Comment on above: Performed By: #### C MP, TSH #### [facility] [address] [place] [address] Dr. Cipriano Simon Potassium [Moles/Vol] 3.8 mmol/L Normal 3.5-5.1 [facility] Comment on above: Performed By: #### C MP, TSH #### [facility] [address] [place] [address] Dr. Cipriano Simon Protein [Mass/Vol] 7.6 g/dL Normal 6.4-8.2 [facility] Comment on above: Performed By: #### C MP, TSH #### [facility] [address] [place] [address] Dr. Cipriano Simon Sodium [Moles/Vol] 139 mmol/L Normal 136-145 [facility] Comment on above: Performed By: #### C MP, TSH #### [facility] [address] [place] [address] Dr. Cipriano Simon Urea nitrogen [Mass/Vol] 14.0 mg/dL Normal 7.0-18.0 [facility] Comment on above: Performed By: #### C MP, TSH #### [facility] [address] [place] [address] Dr. Cipriano Simon Urea nitrogen/Creatinine [Mass ratio] 14.7 mg/mg Normal [facility] Comment on above: Performed By: #### C MP, TSH #### [facility] [address] [place] [address] Dr. Cipriano Simon TSHon 08-17-2022 TSH 1.540 uIU/mL Normal 0.358-3.740 [facility] Comment on above: Performed By: #### C MP, TSH #### [facility] [address] [place] [address] Dr. Cipriano Simon RAD - MISCon 03-16-2022 RAD - MISC [id number] Normal [facility] TESTOSTERONE, TOTALon 2021 Testosterone [Mass/Vol] 906 ng/dL Normal 264-916 [facility] Comment on above: Result Comment: Adul t male reference interval is based on a population of healthy nonobese males (BMI <30) between 19 and 39 years old. Iban, et.al. JCEM 2017,102;3809-4542. PMID: [id number]. Performed By: #### C MP, TSH #### [facility] [address] [address] [address] Cipriano Simon GLYCOHEMOGLOBIN A1Con 2021 ADA RECOMMENDATION SEE BELOW Normal [facility] Comment on above: Result Comment: ADA RECOMMENDED LIMIT 4.0 - 6.0 ADA THERAPEUTIC TARGET < 7.0 ACTION SUGGESTED > 7.0 Performed By: #### A 1C #### [facility] [address] [address] [address] Cipriano Simon Glucose [Mass/Vol] 171 mg/dL Normal [facility] Comment on above: Performed By: #### A 1C #### [facility] [address] [address] [address] Cipriano Simon HbA1c (Bld) [Mass fraction] 7.6 % Critically high 4.5-6.2 [facility] Comment on above: Performed By: #### A 1C #### [facility] [address] [address] [address] 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 Cipriano Simon CARDIAC MELINDA ADMITon 022 CK [Catalytic activity/Vol] 76 U/L Normal 39-308 [facility] Comment on above: Performed By: #### C MP, LIPA, CMADM, RISSA #### [facility] [address] [address] [address] Cipriano Simon CK.MB [Mass/Vol] ng/mL Normal <=3.60 [facility] Comment on above: Performed By: #### C MP, LIPA, CMADM, RISSA #### [facility] [address] [address] [address] Cirpiano Simon HSTROP 4.8 pg/mL Normal 4.0-76.1 [facility] Comment on above: Result Comment: CUT- OFF POINTS HAVE BEEN ESTABLISHED BASED ON THE FOURTH UNIVERSAL DEFINITIONS OF MYOCARDIAL INFARCTION. THE UPPER REFERENCE LIMIT (URL) OF TROPONIN, DEFINED THE 99TH PERCENTILE OF cTnI DISTRIBUTION IN A REFERENCE POPULATION, HAS BEEN CONFIRMED THE DECISION THRESHOLD FOR [place] DIAGNOSIS. Performed By: #### C MP, LIPA, CMADM, RISSA #### [facility] [address] [address] [address] Cipriano Simon GEOVANNA 33 ng/mL Normal 16-96 [facility] Comment on above: Performed By: #### C MP, LIPA, CMADM, RISSA #### [facility] [address] [place] [address] Dr. Cipriano Simon CBC AUTO DIFFon 01-25-2022 BASO # 0.0 103/ul Normal 0.0-0.1 [facility] Comment on above: Performed By: #### A 1C #### [facility] [address] [place] [address] Dr. Cipriano Simon Basophils/100 WBC (Bld) 0.3 % Normal 0.2-2.0 [facility] Comment on above: Performed By: #### A 1C #### [facility] [address] [place] [address] Dr. Cipriano Simon EO # 0.1 103/ul Normal 0.0-0.7 [facility] Comment on above: Performed By: #### A 1C #### [facility] [address] [place] [address] Dr. Cipriano Simon Eosinophils/100 WBC (Bld) 1.7 % Normal 0.9-7.0 [facility] Comment on above: Performed By: #### A 1C #### [facility] [address] [place] [address] Dr. Cipriano Simon Erythrocyte distribution width (RBC) [Ratio] 12.7 % Normal 11.0-15.0 [facility] Comment on above: Performed By: #### A 1C #### [facility] [address] [place] [address] Dr. Cipriano Simon Hematocrit (Bld) [Volume fraction] 43.3 % Normal 42.0-54.0 [facility] Comment on above: Performed By: #### A 1C #### [facility] [address] [place] [address] Dr. Cipriano Simon Hemoglobin (Bld) [Mass/Vol] 15.1 g/dL Normal 14.0-18.0 [facility] Comment on above: Performed By: #### A 1C #### [facility] [address] [place] [address] Dr. Cipriano Simon IG # 0.04 10e3/ul Critically high 0.00-0.03 [facility] Comment on above: Performed By: #### A 1C #### [facility] [address] [place] [address] Dr. Cipriano Simon IG % 0.6 % Critically high 0.0-0.5 [facility] Comment on above: Performed By: #### A 1C #### [facility] [address] [place] [address] Dr. Cipriano Simon LYMPH # 2.9 103/ul Normal 1.2-3.8 [facility] Comment on above: Performed By: #### A 1C #### [facility] [address] [place] [address] Dr. Cipriano Simon Lymphocytes/100 WBC (Bld) 42.1 % Normal 20.5-60.0 [facility] Comment on above: Performed By: #### A 1C #### [facility] [address] [place] [address] Dr. Cipriano Simon MANUAL DIFF REQ NO Normal [facility] Comment on above: Performed By: #### A 1C #### [facility] [address] [place] [address] Dr. Cipriano Simon MCH (RBC) [Entitic mass] 29.5 pg Normal 25.9-34.0 [facility] Comment on above: Performed By: #### A 1C #### [facility] [address] [place] [address] Dr. Cipriano Simon MCHC (RBC) [Mass/Vol] 34.9 g/dL Normal 29.9-35.2 [facility] Comment on above: Performed By: #### A 1C #### [facility] [address] [place] [address] Dr. Cipriano Simon MCV (RBC) [Entitic vol] 84.7 fL Normal 80.0-94.0 [facility] Comment on above: Performed By: #### A 1C #### [facility] [address] [address] [address] Cipriano Simon MONO # 0.4 103/ul Normal 0.3-0.8 [facility] Comment on above: Performed By: #### A 1C #### [facility] [address] [address] [address] Cipriano Simon Monocytes/100 WBC (Bld) 5.5 % Normal 1.7-12.0 [facility] Comment on above: Performed By: #### A 1C #### [facility] [address] [address] [address] Cipriano Simon NEUT # 3.4 103/ul Normal 1.4-6.5 [facility] Comment on above: Performed By: #### A 1C #### [facility] [address] [place] [address] Dr. Cipriano Simon Neutrophils/100 WBC (Bld) 49.8 % Normal 43.0-75.0 [facility] Comment on above: Performed By: #### A 1C #### [facility] [address] [place] [address] Dr. Cipriano Simon Platelet mean volume (Bld) [Entitic vol] 9.4 fL Critically low 9.5-13.5 [facility] Comment on above: Performed By: #### A 1C #### [facility] [address] [place] [address] Dr. Cipriano Simon PLT 238 103/ul Normal 150-450 [facility] Comment on above: Performed By: #### A 1C #### [facility] [address] [place] [address] Dr. Cipriano Simon RBC 5.11 106/ul Normal 4.70-6.10 [facility] Comment on above: Performed By: #### A 1C #### [facility] [address] [place] [address] Dr. Cipriano Simon WBC 6.9 103/ul Normal 4.0-11.0 [facility] Comment on above: Performed By: #### A 1C #### [facility] [address] [place] [address] Dr. Cipriano Simon LACTATE/LACTIC ACIDon 2021 Lactate [Moles/Vol] 1.2 mmol/L Normal 0.4-1.9 [facility] Comment on above: Performed By: #### A 1C #### [facility] [address] [place] [address] Dr. Cipriano Simon LIPASEon 01-25-2022 Lipase [Catalytic activity/Vol] 89.0 U/L Normal 73.0-393.0 [facility] Comment on above: Performed By: #### C MP, LIPA, CMADM, RISSA #### [facility] [address] [place] [address] Dr. Cipriano Simon PROF 14(COMP METB)on 022 Albumin [Mass/Vol] 3.8 g/dL Normal 3.4-5.0 [facility] Comment on above: Performed By: #### C MP, LIPA, CMADM, RISSA #### [facility] [address] [place] [address] Dr. Cipriano Simon Albumin/Globulin [Mass ratio] 1.1 {ratio} Normal [facility] Comment on above: Performed By: #### C MP, LIPA, CMADM, RISSA #### [facility] [address] [place] [address] Dr. Cipriano Simon ALP [Catalytic activity/Vol] 111 U/L Normal 46-116 [facility] Comment on above: Performed By: #### C MP, LIPA, CMADM, RISSA #### [facility] [address] [place] [address] Dr. Cipriano Simon ALT [Catalytic activity/Vol] 41 U/L Normal 16-63 [facility] Comment on above: Performed By: #### C MP, LIPA, CMADM, RISSA #### [facility] [address] [place] [address] Dr. Cipriano Simon Anion gap [Moles/Vol] 11.5 mmol/L Normal [facility] Comment on above: Performed By: #### C MP, LIPA, CMADM, RISSA #### [facility] [address] [place] [address] Dr. Cipriano Simon AST [Catalytic activity/Vol] 16 U/L Normal 15-37 [facility] Comment on above: Performed By: #### C MP, LIPA, CMADM, RISSA #### [facility] [address] [place] [address] Dr. Cipriano Simon Bilirubin [Mass/Vol] 0.5 mg/dL Normal 0.2-1.0 [facility] Comment on above: Performed By: #### C MP, LIPA, CMADM, RISSA #### [facility] [address] [place] [address] Dr. Cipriano Simon Calcium [Mass/Vol] 9.0 mg/dL Normal 8.5-10.1 [facility] Comment on above: Performed By: #### C MP, LIPA, CMADM, RISSA #### [facility] [address] [place] [address] Dr. Cipriano Simon Chloride [Moles/Vol] 101 mmol/L Normal 98-107 [facility] Comment on above: Performed By: #### C MP, LIPA, CMADM, RISSA #### [facility] [address] [place] [address] Dr. Cipriano Simon CO2 [Moles/Vol] 26.1 mmol/L Normal 21.0-32.0 [facility] Comment on above: Performed By: #### C MP, LIPA, CMADM, RISSA #### [facility] [address] [place] [address] Dr. Cipriano Simon Creatinine [Mass/Vol] 0.84 mg/dL Normal 0.70-1.30 [facility] Comment on above: Performed By: #### C MP, LIPA, CMADM, RISSA #### [facility] [address] [place] [address] Dr. Cipriano Simon EGFR-AF SURINAMESE >60 Normal >=60 [facility] Comment on above: Performed By: #### C MP, LIPA, CMADM, RISSA #### [facility] [address] [place] [address] Dr. Cipriano Simon EGFR-NON AF SURINAMESE >60 Normal >=60 [facility] Comment on above: Performed By: #### C MP, LIPA, CMADM, RISSA #### [facility] [address] [address] [address] Cipriano Simon Globulin (S) [Mass/Vol] 3.4 g/dL Normal [facility] Comment on above: Performed By: #### C MP, LIPA, CMADM, RISSA #### [facility] [address] [address] [address] Cipriano Simon Glucose [Mass/Vol] 245 mg/dL Critically high 74-106 [facility] Comment on above: Performed By: #### C MP, LIPA, CMADM, RISSA #### [facility] [address] [place] [address] Dr. Cipriano Simon Potassium [Moles/Vol] 3.6 mmol/L Normal 3.5-5.1 [facility] Comment on above: Performed By: #### C MP, LIPA, CMADM, RISSA #### [facility] [address] [place] [address] Dr. Cipriano Simon Protein [Mass/Vol] 7.2 g/dL Normal 6.4-8.2 [facility] Comment on above: Performed By: #### C MP, LIPA, CMADM, RISSA #### [facility] [address] [place] [address] Dr. Cipriano Simon Sodium [Moles/Vol] 135 mmol/L Critically low 136-145 [facility] Comment on above: Performed By: #### C MP, LIPA, CMADM, RISSA #### [facility] [address] [place] [address] Dr. Cipriano Simon Urea nitrogen [Mass/Vol] 13.0 mg/dL Normal 7.0-18.0 [facility] Comment on above: Performed By: #### C MP, LIPA, CMADM, RISSA #### [facility] [address] [address] [address] Cipriano Simon Urea nitrogen/Creatinine [Mass ratio] 15.5 mg/mg Normal [facility] Comment on above: Performed By: #### C MP, LIPA, CMADM, RISSA #### [facility] [address] [place] [address] Dr. Cipriano Simon XR ABD FLAT UP_PA [...] BRIA [place] Date: 2022-01-25 02:00 Normal [facility] CBC AUTO DIFFon 12-21-2021 BASO # 0.0 103/ul Normal 0.0-0.1 [facility] Comment on above: Performed By: #### C MP, TSH #### [facility] [address] [place] [address] Dr. Cipriano Simon Basophils/100 WBC (Bld) 0.5 % Normal 0.2-2.0 [facility] Comment on above: Performed By: #### C MP, TSH #### [facility] [address] [address] [address] Cipriano Simon EO # 0.2 103/ul Normal 0.0-0.7 [facility] Comment on above: Performed By: #### C MP, TSH #### [facility] [address] [place] [address] Dr. Cipriano Simon Eosinophils/100 WBC (Bld) 2.9 % Normal 0.9-7.0 [facility] Comment on above: Performed By: #### C MP, TSH #### [facility] [address] [place] [address] Dr. Cipriano Simon Erythrocyte distribution width (RBC) [Ratio] 13.0 % Normal 11.0-15.0 [facility] Comment on above: Performed By: #### C MP, TSH #### [facility] [address] [place] [address] Dr. Cipriano Simon Hematocrit (Bld) [Volume fraction] 44.9 % Normal 42.0-54.0 [facility] Comment on above: Performed By: #### C MP, TSH #### [facility] [address] [place] [address] Dr. Cipriano Simon Hemoglobin (Bld) [Mass/Vol] 15.7 g/dL Normal 14.0-18.0 [facility] Comment on above: Performed By: #### C MP, TSH #### [facility] [address] [place] [address] Dr. Cipriano Simon IG # 0.03 10e3/ul Normal 0.00-0.03 [facility] Comment on above: Performed By: #### C MP, TSH #### [facility] [address] [place] [address] Dr. Cipriano Simon IG % 0.5 % Normal 0.0-0.5 [facility] Comment on above: Performed By: #### C MP, TSH #### [facility] [address] [place] [address] Dr. Cipriano Simon LYMPH # 2.6 103/ul Normal 1.2-3.8 [facility] Comment on above: Performed By: #### C MP, TSH #### [facility] [address] [place] [address] Dr. Cipriano Simon Lymphocytes/100 WBC (Bld) 44.6 % Normal 20.5-60.0 [facility] Comment on above: Performed By: #### C MP, TSH #### [facility] [address] [place] [address] Dr. Cipriano Simon MANUAL DIFF REQ NO Normal [facility] Comment on above: Performed By: #### C MP, TSH #### [facility] [address] [place] [address] Dr. Cipriano Simon MCH (RBC) [Entitic mass] 29.7 pg Normal 25.9-34.0 [facility] Comment on above: Performed By: #### C MP, TSH #### [facility] [address] [place] [address] Dr. Cipriano Simon MCHC (RBC) [Mass/Vol] 35.0 g/dL Normal 29.9-35.2 [facility] Comment on above: Performed By: #### C MP, TSH #### [facility] [address] [place] [address] Dr. Cipriano Simon MCV (RBC) [Entitic vol] 84.9 fL Normal 80.0-94.0 [facility] Comment on above: Performed By: #### C MP, TSH #### [facility] [address] [place] [address] Dr. Cipriano Simon MONO # 0.4 103/ul Normal 0.3-0.8 [facility] Comment on above: Performed By: #### C MP, TSH #### [facility] [address] [place] [address] Dr. Cipriano Simon Monocytes/100 WBC (Bld) 7.0 % Normal 1.7-12.0 [facility] Comment on above: Performed By: #### C MP, TSH #### [facility] [address] [place] [address] Dr. Cipriano Simon NEUT # 2.6 103/ul Normal 1.4-6.5 [facility] Comment on above: Performed By: #### C MP, TSH #### [facility] [address] [place] [address] Dr. Cipriano Simon Neutrophils/100 WBC (Bld) 44.5 % Normal 43.0-75.0 [facility] Comment on above: Performed By: #### C MP, TSH #### [facility] [address] [place] [address] Dr. Cipriano Simon Platelet mean volume (Bld) [Entitic vol] 9.3 fL Critically low 9.5-13.5 [facility] Comment on above: Performed By: #### C MP, TSH #### [facility] [address] [place] [address] Dr. Cipriano Simon PLT 215 103/ul Normal 150-450 [facility] Comment on above: Performed By: #### C MP, TSH #### [facility] [address] [place] [address] Dr. Cipriano Simon RBC 5.29 106/ul Normal 4.70-6.10 [facility] Comment on above: Performed By: #### C MP, TSH #### [facility] [address] [place] [address] Dr. Cipriano Simon WBC 5.9 103/ul Normal 4.0-11.0 [facility] Comment on above: Performed By: #### C MP, TSH #### [facility] [address] [place] [address] Dr. Cipriano Simon GLYCOHEMOGLOBIN A1Con 2021 ADA RECOMMENDATION SEE BELOW Normal [facility] Comment on above: Result Comment: ADA RECOMMENDED LIMIT 4.0 - 6.0 ADA THERAPEUTIC TARGET < 7.0 ACTION SUGGESTED > 7.0 Performed By: #### A 1C #### [facility] [address] [place] [address] Dr. Cipriano Simon Glucose [Mass/Vol] 169 mg/dL Normal [facility] Comment on above: Performed By: #### A 1C #### [facility] [address] [place] [address] Dr. Cipriano Simon HbA1c (Bld) [Mass fraction] 7.5 % Critically high 4.5-6.2 [facility] Comment on above: Performed By: #### A 1C #### [facility] [address] [place] [address] Dr. Cipriano Simon LIPID PROFILEon 12-21-2021 CHOL-HDL RATIO NORM SEE BELOW Normal [facility] Comment on above: Result Comment: 3.3 - 4.4 LOW RISK 4.4 - 7.1 AVERAGE RISK 7.1 - 11.0 MODERATE RISK >11.0 HIGH RISK Performed By: #### C MP, TSH #### [facility] [address] [address] [address] Cipriano Simon Cholesterol [Mass/Vol] 185 mg/dL Normal <=200 [facility] Comment on above: Performed By: #### C MP, TSH #### [facility] [address] [address] [address] Cipriano Simon Cholesterol in HDL [Mass/Vol] 39 mg/dL Critically low 40-60 [facility] Comment on above: Performed By: #### C MP, TSH #### [facility] [address] [address] [address] Cipriano Simon Cholesterol in LDL [Mass/Vol] 99.2 mg/dL Normal [facility] Comment on above: Performed By: #### C MP, TSH #### [facility] [address] [address] [address] Cipriano Simon Cholesterol.total/Choles terol in HDL [Mass ratio] 4.7 {ratio} Normal [facility] Comment on above: Performed By: #### C MP, TSH #### [facility] [address] [address] [address] Cipriano Simon HDL NORMAL > or = 60 mg/dl - LOW CARDIOVASCULAR RISK <40 mg/dl - HIGH CARDIOVASCULAR RISK Normal [facility] Comment on above: Performed By: #### C MP, TSH #### [facility] [address] [address] [address] Cipriano Simon LDL CALC NORMAL SEE BELOW Normal [facility] Comment on above: Result Comment: <100 mg/dl OPTIMAL 100 - 129 mg/dl NEAR OR ABOVE OPTIMAL 130 - 159 mg/dl BORDERLINE HIGH 160 - 189 mg/dl HIGH >190 mg/dl VERY HIGH Performed By: #### C MP, TSH #### [facility] [address] [place] [address] Dr. Cipriano Simon Triglyceride [Mass/Vol] 234 mg/dL Critically high <=150 [facility] Comment on above: Performed By: #### C MP, TSH #### [facility] [address] [place] [address] Dr. Cipriano Simon VLDL CALC 46.8 mg/dL Normal [facility] Comment on above: Performed By: #### C MP, TSH #### [facility] [address] [place] [address] Dr. Cipriano Simon MICROALBUMIN, RAND URon - mALB <1.3 Normal <=30.0 [facility] Comment on above: Performed By: #### M ALBR #### [facility] [address] [place] [address] Dr. Cipriano Simon PROF 14(COMP METB)on 022 Albumin [Mass/Vol] 3.9 g/dL Normal 3.4-5.0 [facility] Comment on above: Performed By: #### C MP, TSH #### [facility] [address] [place] [address] Dr. Cipriano Simon Albumin/Globulin [Mass ratio] 1.1 {ratio} Normal [facility] Comment on above: Performed By: #### C MP, TSH #### [facility] [address] [place] [address] Dr. Cipriano Simon ALP [Catalytic activity/Vol] 96 U/L Normal 46-116 [facility] Comment on above: Performed By: #### C MP, TSH #### [facility] [address] [place] [address] Dr. Cipriano Simon ALT [Catalytic activity/Vol] 51 U/L Normal 16-63 [facility] Comment on above: Performed By: #### C MP, TSH #### [facility] [address] [place] [address] Dr. Cipriano Simon Anion gap [Moles/Vol] 13.4 mmol/L Normal [facility] Comment on above: Performed By: #### C MP, TSH #### [facility] [address] [place] [address] Dr. Cipriano Simon AST [Catalytic activity/Vol] 15 U/L Normal 15-37 [facility] Comment on above: Performed By: #### C MP, TSH #### [facility] [address] [place] [address] Dr. Cipriano Simon Bilirubin [Mass/Vol] 0.8 mg/dL Normal 0.2-1.0 [facility] Comment on above: Performed By: #### C MP, TSH #### [facility] [address] [place] [address] Dr. Cipriano Simon Calcium [Mass/Vol] 8.8 mg/dL Normal 8.5-10.1 [facility] Comment on above: Performed By: #### C MP, TSH #### [facility] [address] [place] [address] Dr. Cipriano Simon Chloride [Moles/Vol] 105 mmol/L Normal 98-107 [facility] Comment on above: Performed By: #### C MP, TSH #### [facility] [address] [place] [address] Dr. Cipriano Simon CO2 [Moles/Vol] 25.4 mmol/L Normal 21.0-32.0 [facility] Comment on above: Performed By: #### C MP, TSH #### [facility] [address] [place] [address] Dr. Cipriano Simon Creatinine [Mass/Vol] 0.91 mg/dL Normal 0.70-1.30 [facility] Comment on above: Performed By: #### C MP, TSH #### [facility] [address] [place] [address] Dr. Cipriano Simon EGFR-AF SURINAMESE >60 Normal >=60 [facility] Comment on above: Performed By: #### C MP, TSH #### [facility] [address] [place] [address] Dr. Cipriano Simon EGFR-NON AF SURINAMESE >60 Normal >=60 [facility] Comment on above: Performed By: #### C MP, TSH #### [facility] [address] [place] [address] Dr. Cipriano Simon Globulin (S) [Mass/Vol] 3.6 g/dL Normal T [facility] Comment on above: Performed By: #### C MP, TSH #### [facility] [address] [place], [place] [id number] Dr. Cipriano Simon Glucose [Mass/Vol] 198 mg/dL Critically high 74-106 T [facility] Comment on above: Performed By: #### C MP, TSH #### [facility] [address] [place] [address] Dr. Cipriano Simon Potassium [Moles/Vol] 3.8 mmol/L Normal 3.5-5.1 [facility] Comment on above: Performed By: #### C MP, TSH #### [facility] [address] [place] [address] Dr. Cipriano Simon Protein [Mass/Vol] 7.5 g/dL Normal 6.4-8.2 [facility] Comment on above: Performed By: #### C MP, TSH #### [facility] [address] [place] [address] Dr. Cipriano Simon Sodium [Moles/Vol] 140 mmol/L Normal 136-145 [facility] Comment on above: Performed By: #### C MP, TSH #### [facility] [address] [place] [address] Dr. Cipriano Simon Urea nitrogen [Mass/Vol] 13.0 mg/dL Normal 7.0-18.0 [facility] Comment on above: Performed By: #### C MP, TSH #### [facility] [address] [place] [address] Dr. Cipriano Simon Urea nitrogen/Creatinine [Mass ratio] 14.3 mg/mg Normal [facility] Comment on above: Performed By: #### C MP, TSH #### [facility] [address] [place] [address] Dr. Cipriano Simon VITAMIN B12on 12-21-2021 Cobalamin (Vitamin B12) [Mass/Vol] 647.0 pg/mL Normal 193.0-986.0 [facility] Comment on above: Performed By: #### C MP, TSH #### [facility] [address] [place] [address] Dr. Cipriano Simon Ambulatory Visit Summaryon 0 11-09-2021 Ambulatory Visit Summary RIC BERRY :1960 Visit Date:11/09/2021 Ambulatory Visit Instructions Your Diagnosis Kidney stone Tests Performed Urnls Dip Stick Auto w/o Microscopy POC 91567 XR Abdomen 1 View -- Results Pending [...] Tab) [Image Removed: STOP]Stop taking these medications acetaminophen-hydroc odone (acetaminophen-hydro codone 325 mg-5 mg oral tablet) acetaminophen-oxycod one (Percocet 5 mg-325 mg oral tablet) hyoscyamine [...] Where: [facility] [address] , [place] [address]- Medications What How Much When Instructions Unchanged [...] What How Much When Comments Stop Taking acetaminophen-hydroc odone (acetaminophen-hydro codone 325 mg-5 mg oral tablet) 1 Tablets By Mouth Every 6 hours as needed for as needed for pain Stop Taking acetaminophen-oxycod one (Percocet 5 mg-325 mg oral tablet) 1 Tablets By Mouth Every 6 hours as needed for Pain 8-10 Stop Taking hyoscyamine (Levsin 0.125 mg SL Tab) 1 Tablets By Mouth 4 times a day as needed for spasm Test Results Urnls Dip Stick Auto w/o Microscopy POC 74245 (11/09/2021) Bilirubin Urine Dipstick - Negative Blood Urine Dipstick - Negative Glucose Urine Dipstick - 3+ 1000 mg/dl Ketones Urine Dipstick - Trace - 5 mg/dl Leukocytes Urine Dipstick - Negative Nitrite Urine Dipstick - Negative Protein Urine Dipstick - Negative Specific [place] Urine Dipstick - 1.020 Urine Appearance Urine [...] glands make too much parathyroid hormone (primary hyperparathyroidism) . ? A buildup of a type of [...] not included)... Normal [facility] Patient Educationon 11-10-19 Patient Education Urology Kidney [...] glands make too much parathyroid hormone (primary hyperparathyroidism) . ? A buildup of a type of [...] these instructions at home: Medicines ? Take rtcd-mdr-apqvmks and prescription medicines only as told by [...] (NKF): www.kidney.org ? [facility] (UCF): www.urologyhealth.or g Contact a doctor if: ? You have [...] 11/14/2008 Document Revised: 10/15/2019 Document Reviewed: 10/15/2019 [employer] Patient Education ? 2019 [employer] [facility] Urology Office/Clinic Noteon 11-09-2021 Urology Office/Clinic Note [...] Urnls Dip Stick Auto w/o Microscopy POC 40431 Urnls Dip Stick Auto w/o Microscopy POC 65187 XR Abdomen 1 View XR Abdomen 1 View Follow-up With When Contact Information Elan Peterson MD, Lino Goodson, URO In 6 months 05/12/2022 [facility] [address] [place] [address]- Additional Instructions: w/kub Patient Education Kidney Stones, [id number] Grace Elizabeth personally scribed for Dr. Ansari [...] Hip replac (more content not included)... Normal [facility] Comment on above: Result Comment: Elec tronically Signed By: Lino Ansari Jr., MD\.br\Date and Time Signed: 11/09/21 09:52 EDT\.br\Electronically Co-Signed By: Grace Marin MA\.br\Date and Time Co-Signed: 11/09/21 09:47 EDT GLYCOHEMOGLOBIN A1Con 2021 ADA RECOMMENDATION ADA THERAPEUTIC TARGET 6.0 - 7.0 ACTION SUGGESTED > 7.0 Normal [facility] Comment on above: Performed By: #### C MP, TSH #### [facility] [address] [address] [address] Cipriano Simon Glucose [Mass/Vol] 148 mg/dL Normal [facility] Comment on above: Performed By: #### C MP, TSH #### [facility] [address] [address] [address] Cipriano Simon HbA1c (Bld) [Mass fraction] 6.8 % Critically high <=6.0 [facility] Comment on above: Performed By: #### C MP, TSH #### [facility] [address] [address] [address] Cipriano Simon Formson 04-08-2021 Forms [id number] #1.00CD:127 Normal [facility] Coding Summary.on 04-07-2021 Coding Summary. CD:[id number] Gh0bWw+PGhlYWQ+PE1FV HIdO85jkZRtzI5LL7qJB Z2HVYWSYUTKCY4ROV0tw NX5KJrcM2BwsmSh ZsisvXQfQU10VOv8DIQ4 fSkpYYvxhF1qqSQiT9f5 IrPaDC47qY30PAihAVEt KoE7ZbYgzjbuwWJf G5woEfGooCNrPgy+PHRh YmxlIHdpZHRoPScxMDAl QqYcmHnaXT9iOz7gACQj LWNvbGxhcHNlOiBj n6qwWAVbQAxlXG7neXfd K8IraAH5LFJbi6f6Ot16 dHI+NGBnNZU0rGsmPZdl e158IlJgm2hoLQW5 yIVeIEggPPE7S67zh1D2 DXWqCQKeKEI6fGP5hO3w lHrqynqcH3KddVHzInC5 IGQ4aWBywU5zmYzs imiwoT3kJoj+K24RKV2K PRBSGT0GAnn0D2RgXbga dHI+FX27KHGbFI69oZCw pKLlo7vrfZn0SxAd YYQrEAH2kGfvUXuff4My VSTgE46ycLRnv8U7TMTp oNcraCTzBeBigRX5zF9c AOyoigtwq4sbifdc Xfddg2nhzm92bS94S39z ZJywQOPwJUU0GLXpNFQr wCrawp9peI0gTi6+IDxj g7udc5jlyYe9JnHo BDGcmvGowFjoXGK8i0Fw Kg27J6QjzLica7BqYgv9 lx78jRBye4B1pVZ3DFpa HAQohB0yDAfnQgC7 ZETzAoKknX39iAGvXPxx Co5byNcnjPmrCS5sXMHf psewXLLasT3rEWKxpHLc vWliEC0yLAUfqciu u010BqLeJHK8PKJpkGJl B8JfrW5jXmAiXONkGSFo W0YswMPwWFwdR966XLox GtP2VSBsiwPaX4Ad MIBpyOpnJwY6m2Y4Oh9M j8FxybzzXUP4UTmiTNMz JsO3ZgFaGbQ0M1FyTqx2 CPHlzAqyFC3lG9Ia NKDdhpibyoivtZE4YSRu APQugS38hHKtEEeaEy6a t5R6e472TVPxLRUllQ36 Bw2ymMhrIMAivFKM iB2djalpl4urerleNqMr KMSjKXv4PWo5XLYngCfw AuVsNGW4PpO7UJF1zFGp kS9vkTzrfmghuG9p Oyc+E33ffQ6nGEF6BOF0 qfacMVZaayWdYO96EW60 J6IpCcneyXPxaMG+PGRp cwGdiFjuIR0jZfBe y5otw1YgMCscN4NuRNEa RUnfZft3FAQmPJU1oXA5 hC3jTROtSCmfo4N6sLJ8 K6SsgcNaih8dn6br IDSaNLmxP74ueYHex5N0 FTOmnEU2HQVbiDbzVyHx kD51Xgw+GDZxwZxbr8Sd Vvqxz9gau6riyRz1 IjMwJSIgdmFsaWduPSJ0 s8ZtSw20X51bDGiwTHZb BGSnGFSwMVXxyDpzsm8u kG8nFn2+PGNvbCB3 zPA1nS7kAEDcYtP0EEdi S758PtFlcCKhKjuux2or l2slyHg6XaPhUFVycdAz aYsxKMJ8m7ScNp86 A05bQJtqXTGqNJUqYMLr ONWxkFctui4sdK5fBt6+ EC1ka5iypj79tN66sFM+ OTCpQNW6qUmfTHyr QLSjeH0oWCnrLrL7UNXb SbMpfS78pBUwUBkwMo3w nUhtvLnfTH7qVPSpcsoz l117HlKsq3fnWKAj qHSpJJlbDWC6D94wq4O1 ROFeRBHxCYD2qAI5sK3z bGlnbjogbGVmdDsgdmVy eIqxSOgwILnbD329 IHRvcDsnPlBhdGllbnQg WaAjUBb4F8CwOzd0DMHi bIslAR8usUJzJTjhLz8z cSgmeNkeNN8qFWQm loocy679OxBec5jdNYKm aCHvEXvxUTV4C80xv6R0 NXSfKRJqKWN5jCT0sI1k bGlnbjogbGVmdDsg ekDcvYkeKJixMAtsM464 IHRvcDsnPkJpcnRoIERh fXU2CI19FA00fIPxi8K9 fKE9V8YwEXGylefq ejjceUL2KKBsVEPtnG00 To0ecKyvRw2rETGhZFO8 CNZkcRYiL4FywF6jNdVj ZULqFDGvI5TeaSUk MMmyS837NDhzNuX4BNOu mgLwH7UlVZZlsVzwWyB4 j3P7Hp8QV5A8QD67HN19 oIZam5M2nKU9R3So NWLwgduyuzjsaOL7EAPy GDEobU99Et0eiRzxPn0w RYHwEDV3YKXntDZaT4Vv rF0eCkIuDFFzOVTd Z1CxwCOaPPjhH737EUaq PqX6PZSqnaUfO6JrHHTn sLisEjG1k2Y4Eo4WFHc6 EG84JF81bXEje9X4 nTI4U9YoTTRppzcsqxds lZK6AOKeUDQbuR80Qh1g pErqSm3pRWRpSBW2FDEd pPCdR4WqnA9tRdFd YOQpLRPxY1XhwFPkBCta E642JUxkXoI4NZBzonYk K6DiQIXitJsdCfH8u8J9 Yw8QXGYsHQ03YGN1 hJU4UO64EY31B0ZbGhvs dGFibGU+PHRhYmxlIHdp ZHRoPScxMDAlJyBzdHls TO5yIb8aHVYvFJAz qFeutLVrKcFhq5ruHYFd WFkuHA6saTngA8BwpAB7 UCVdg4f9Vy68O64uP8Np dXA+RDTdjGL6cWE3 uR3kSmAeHaZ7XSjnQ812 McImpFZdDetxl4qzs8uu gBw0ZpW1DUGmwaVbnYel OCH9s7ZqRa76P08y IHdpZHRoPSIxNSUiIHZh fMzkym4fyR5fBu5+PGNv uOI9qPL4dA4zGyQwDmX1 WPgdN529AdCqmXAq Rxabg0wlt5wrlEf2PkPs HGUpqpRjgYajZQY5x3Hl Sw57W7VgcYsyl4PsAcm8 qi61kQPco8T0jPY8 J1XrSULtboldkRBhjUki ZI0aUVRwohdkVNRvuW5s EXQdU2k7MyHaRaN4KEzc E7KdeiY8CWGeoQRk QGpnZOI1T20fj3R4RAAd OFBrDGY5yDT7yS2ioWxg bjogbGVmdDsgdmVydGlj CBmgESsjC411VAOv pNanYXIbmS9cGGXsiKMq xLnnRP2kHUEqgkjoLu7S BR4tGTnLFTgAPbz0K2Xx Nyi0ZWTxhVvaRV2z fSKgCTenGi9dwLevjQzm UJ2nYIMfodiiNYHdiV2d FDWsjTMohUhyDK1aPGAe nffpt933AcCsDBD3 XYYjuREdR8GzwL3rHtLv SDMzJDFaN7DwuZSiAYhu C612XYwbRbJ7ANVirfGb W5JdBVQxdJzcBdI6 w3J2Ia2xMk9cFc8kOVQg QY52ZA50iTYvn3Q6eSO5 Y2LxRUMchzfmvnytmTX2 ATUhLWRkfU84vTKx ZDcvDd7mp6I4j360YMLd NPSacC74Sh3ntZksDYQm jKPKlD1yntopg2qielvj XfYzPOAiFYn9XGq8 DBRdjPzrPrCkDWF2VoS2 WBU5eKApzM1pdKttffpc yH7lQir+NTggWWVhcnM8 Y2RaLgm2HIXvsAcg VA4coUIkTUoiXr9gwDtg wAewPP8jEZZtkfjgHXQr xW9cMYJqdVWycQwjUT8c OLJouucrh862WzDz EGN6OOKlcYJdY7OegV7t DqHeBOPjIVVlD7BrjSAe IKzcL326KXtmMlF6GWYb ytMsW3GjNHZquHfn AcK7x5T5Bo4PPXnoKD97 KE02vUYyp7E3mQC0I6Wj RLJggrdidsqdhMJ5SENn IDErzY24gXUwKBot Ee7dw5Q7z351BZIvTARn xU27Hb1jqFolHLGpqUXY vQ5nytthp0gftuanCfIa AIWnOPu6RVh4IVGr aFgzHqBmAQU3VaL6JWI6 kYCznS6jfBddxonuwH0n Oyc+H4K7sTK5yWIwtAav dGQ+NQ02oc00X7Kq TtguHij4TGFoIRM3fVZ3 aU2oKCZgBTjkl0U3xWX5 V9LuriFqxl8rv8vsZBAc WXplD43pzSDns8X3 VLUvlAS1YYQedMhqEnJg wN14Lww+IPEceGqhv8Ts Buuto8qdx7bltVl0WyWh JSIgdmFsaWduPSJ0 p6ZaYl31O92cKHkuMUEj NAEfNFNjQCFoiEhsgv4u bR7aRs1+NRPpmBJ9kXZ7 tF1qMvCsWsQ3HRwc F559RkDseARjFanny9ou z7zorRf9KeAcFWQvjkBa dLyzGHW3i2GtMo09N9Rg aJshy8FgGxf8ib97 aKOzr7Q0dCG5X0YvBOBy kwquzEIqbAcgNE1lTPNz moojVIUrrL7fJBYnJ7c7 XmWnAoT5MGbzS9My xnN9JSAynJXsYHFlqWEH dK5kuvtzr5nvleshBuZz ZATjAZd5EMw5RSShnRim ZoCiTGN2RpO6ELU8 iRCfjR7fjWveguqdwR6s Oyc+OWn8e3dnnUCfLA1t zTO4HB96KP81jBVow0D3 mQB2B4JnNFSqsvfk bypclIE0NEPoIILolF42 Um3tfSnzHf0jRIYzNSL7 LKUvhEEoL1EpzL7lFwYa VCJlPWWxL8BzgEKo ZDcfV322APieCjZ3OMPr pnRjA9BoBNKmcDbrJoX0 k6Y6Ol8WFZ96DH98HJ08 xDHkz1G2rBJ0G0Xf CJBbzdhirvkcfFR3VUDt LSMfdT71Qm4hlZebGo9w OCUgBQO6PTSozJYkM6Bo sU1kRxBxJPQrOUQz H5JxqCHbEKdnA521KZnl MsD1LRUjjnDeH4VfYYGw rPiiDxA1l5N2Bz5VYq74 EU39CC61qRLsg4C8 dLW6M2YuQYHvsxdmbgew hQX5XTRrVJDxjH14Or1h wJtzLs3nOQVhZIT7JYCf oFKvE1HmbD8uPiIa WYIwQPEaN7AggPPvIMap T721YNleCzP2GPKhobNh F9PdOSIhjTfqLrL0j2U5 Xh9FTNvzeal7U3Nv PjwvdHI+JY43DTYsST07 qDWfiXFag5eruMt4YuDy FDEnTOR1xMwsPDxiq9Mb CCSpP66geZVdq3R5 IGNv (more content not included)... [facility] Consent for Procedure/Surger yon 04-06-2021 Consent for Procedure/Surgery [id number]#1.00CD:127 [facility] IntraOperative Documentson 1 IntraOperative Documents [id number]#1.00CD:127 [facility] Pre-Certification Formon Pre-Certification Form [id number] #1.00CD:127 [facility] Coding Summary.on 04-02-2021 Coding Summary. [id number] Gh0bWw+PGhlYWQ+PE1FV GTbW14xfXUkwL8XR6mUZ F0ITHEJDODJWJ0AIU1fq RD2AOjuP9VlpmQl HgexfOBeXP04OKs3LAT1 gEkzUOdupA8rrMWmJ2m3 YtLuDP58xL91FMkjKRJj FdN0YzWcdjwneZRa S6obMgNedKDaHwh+PHRh YmxlIHdpZHRoPScxMDAl GwXagJpkML6bVq0nRKSu LWNvbGxhcHNlOiBj u6jsSYHwJItvSI7jvXmt A9YcrBV8GTSez1g6Cw09 dHI+XAUgRXK6lWfsMQjh u722ErZnh6obAZK5 fPPwLNwjCCE6V30to5M3 DPZrKYVeIRN2vYT0kL6z rEtgmpmqK0XezZBlAdJ3 QQC8pORztR0nmQqp ejiigC6yJtm+Q74AFP3R WAYDLY8SXii6W6FgBqel dHI+ZY14PQXkSR76qNVt gUZns2frpMs0MrZa XBSnGXZ8sAekHSqgn5De RNJqV87bgWGjt7C6LJPs aPkotRVfKxMmcJP1rK3o FNzyrjfkm0bvxkrx Mhzat4ypbo26pB98M96e CZoqCCAfJIL0ACDrOKCf lWznxs6tcA2ySo4+IDxj d9qah6snbRy8MnSp CMWlexYegEycRGN7l9Md Jy19Y5LosZpkm6LbAtf3 hi46eYUra6Q9wZS3YJon KEBnwV6wEVasMgO1 BDRpRfPbzO56mMUfRXer Ro7hyGvubLamHM7oFGEj hepeKLHeaH5tEWFhyVQo hYdcVM5cATKmboot s234XfYaWCE4EKQclQNb K5NoaK0fAkRuRJFwMYHd A3HlhIWyNMpkU197KFuc RdK1UKUdwrUaJ9Hd KGOanSbxRyH5b1M9Vu4B n9ZtikjnUCC3TVlvGDLg NtLqVuYmBoH4J8GoLad1 OUOrvIjnXQ5eG2Ss TLOgdvcgmuomqQK9VETu NFQgfE83mSWyZLdeYc6f k5I7j511KAKcIKCkuI37 Ia6zrSrdUJBsvHKP zL1bqusmf1xsalpiRsRe ILPfAVr3FXm3OMSdzWkd IsQeZGZ6LwH3ZND6nEBi kP2fjBpgricfbY3v Oyc+M15tbV6mIXO0CEU4 tedeRQZovuOyWP30IE24 M0LjMsqmsRExbDN+PGRp kvMyjOseSZ3bJtFk u8jqg3EbYRxdO4VzXYFu WKniErz1XCFeDGF1rUF4 bA3eAVVmDOjnb1X4oBY6 P4AxlgYexk9kt4my JIXhLUibL03olGKpa5T1 SSUjhCW8SYSlkGmnSgWf jU85Hxh+KZRjjRjko9Fv Bgesv4kzu2bnyNe5 IjMwJSIgdmFsaWduPSJ0 i3RyNg53U68pGXczZCEo YHVnFLSfAXHxeKopjq2p gO1cUp5+PGNvbCB3 rNW2nK8wCQYuZtG1ZVoy L815NaHyeJTbEmxty1uz n0xvkLz3NcPyEYQddsDb gOnzMUZ6p9JlKs38 D35mXPiiQTGwBCMyFXZj INSloAnlep6cfO1sAk7+ NH1uo9vsko81zV27bAC+ PIZbVFH7wJvhCKtm LWGfwY4zFGdlYnY1DVNo YvJqaS53nXHvNDfiFy4x kOtnpYkqRD7wPXGyzuga x797MqRzr2ydLKLx xVXwXJylLNW0A06ba0Y8 YQXrJSYoAIQ0yJO0kD7l bGlnbjogbGVmdDsgdmVy mHejUDunGFuqN999 IHRvcDsnPlBhdGllbnQg YuMxDXt4J3YgGem4SVZh iXgkOT5jjXAhNRhyVn9v cHzbrVetRN3gWWTm epmza844UxRif6xlAFLj qFUlVGupEFQ5F91va5W4 SYZsQHXrDTV5eJD2cL9c bGlnbjogbGVmdDsg geMlsPbmRPwrNSjaY121 IHRvcDsnPkJpcnRoIERh qJF7NR77CN37qDOci5W6 nLF1H3YmAGDdbxuv eillbYK4RUDxAIUsrW01 Oa0nwUruKl7oKLAuTIL6 DJSstOSwN8EqyA2xHcXy FJAcBXPpL9PbvKLi QGlkR692ROqbKuG8AQAx olPtI5CyWQItcLcjNfP2 u9D9Cq5MF3S3YO97JP72 aXXib4O7hOC5S4Cx FRRtejcezzlbqFI4PIPf THZdsZ65Fa4hyKutCo4w KHByDNU3DTIgbHSvQ3Kf rP9iRrKcBKLwGMAl Q0RqzKHdGBcdL870IRxv SaL3KGEbufSfO1BdZWGz gYteTcP6m8E5In1FWRm6 LN70CL51rVJdg2U5 pIC0I8IqJPTjoeoydkbw vYD2NBTkBVUrnJ92Gu7d fZxlRq2cCJBaAOB3DRXt tAQaA9XceP1gRhWi JPTtDQEvF4QljNZyLIhq T867WKlhSvO6AXEwugGy U4OyBROfzSebCpX1o7X3 Qy3ZVMAkHW55AHU4 vNV2MG20DG30U3TgSssv dGFibGU+PHRhYmxlIHdp ZHRoPScxMDAlJyBzdHls UD6wUq9cFCEjSOLj vVoxcALwGsUxq7nrRPEe RGzzSU0tsVomT9KafXF8 RYMrt3u6Ax56S04nD0Ws dXA+VZVsnLH9hJP7 iF4xKoOnSsL1FOixM081 QkSwhQEaNxoha2cfr2cj hKl1LmA8ANBrycAxsIzn BBC4l7AmQt10R14u IHdpZHRoPSIxNSUiIHZh mLmpsd3juK3jMt1+PGNv fRN6kEO7lN4fAlUtNrQ8 YWenN473DoWleJUh Jynwv9vvc7ohwTh0OrUo AKRhyzNbrSbgPCV1s2Im Md02P0GzwUqwc2ThYqg0 xr43cPZku5W9rSD4 D2LzUDWriifquXQklDfm HP7eUUMdpxinUTAooS1p AMLtW7n4UnVkPmF1DFae I6UvxsS2SSGogCSw WAifZJV6O04uq5B1WDJd JUFuXLV8uMU7eN8dqQrw bjogbGVmdDsgdmVydGlj UUleJLtcN805EKWa zPprUOGgmX3aOUCudOMc yHxhJK1tTHGzznczQn4H NK6zHJnVKJbGCzq5L1Ju Srq6KSOzbIdzUW5u dATuTYggKj2ooRfvzCuv NZ5jBIAjagzvCROxmU3p APCwwXNqwZykKJ6dKITa erjzj448BhBgAXM7 SLTsxTIrK3OimL6bOcNl QYIpDTRtS4QfeXZrVBdf D843WAvdQzI1YMNjfhLr U0DvRROhsDiqJkR8 a2D0Jh4bPu3lAs5wVGMc GU79NJ02lVQyi1G0bWL9 N3OcDPTlmjolcaidfGK3 LWDnADFywJ92xEIk HXibPd5ef6K4l060CAIk AAIuuP72Zx2kgEiqLPMi uQCDfZ4qukuaw7kcphbq PmWkBRVfPYo4QJl8 UOZxmOvnLlPmWOT0TzU4 AOM4dGJavV9qvZsqjwej aE3kQnr+NTggWWVhcnM8 V7JyChc2VHVtuGqe US0nqJYoBSsxEg3baEec yGlnNH3vXKKctfxkIUXf vE1nXVPnpORgfBpmKZ0x CYZufjpcv949JmCj NHK7NYEoxJLoX4DouZ8z KzPdJCKbKYEpC2DokJKf UDieR204HRqnQoJ0XFAm kgXhN1FiVONczFwd PuP9d7E1En1QDLgoAL37 ZU99aTChb4F7tDR2M6Fe EFXxescqbavhmXF3YZWe WKJyrC67yURqNYoe So9io9N4r112IDNsIIMk jD17Kb9vdKmxYMCfdEJQ yS0slnrzx7bntyjyFmWd RYYkJVb9BDl4YCZo qUcnFaOkFWB8TfS4MPV3 kVBiqE8laYqbthausJ9b Oyc+R2A2kFQ0iAZeeRmq dGQ+IP00ei46Q6Dq EiphWqw4LDBdQVO7qSI1 zT1iNVTuEYvmp4V3jIP2 R8CxxfRvdw0wk5yuLIDh UHkvV74nlUEnc1Z6 GMLviTL8AIDyeSawWaDu qA33Mvw+VLOkoEhwa5Mj Jdabh6fej6iwwSa2JfNs JSIgdmFsaWduPSJ0 w6TsZh65H63xLPftAXZj NWTfGSQqGBXtyZhhfl8t dX1xDt0+DOFamTW9qRT9 iM0mIxXoZfG8UAkj R495TsZhsKHpSufhv3af o9cicGv5XrPuNDXggzLt vUcxVON5k2SqBw48Z0Wf zSmlr3VrDfc1pl73 bXMkb6Y1zVN5T5DnPJMv lrtcpPWgrRfyHT0qAIEm jgvwMSZqoE3pRWQhP5f4 TuGtGaJ2MLzqX4Nk hnO1ATVkrJQlSDXpvQRX sF8xtmjpg4zpaemxEjAv SHSmFJw9RMm7ASVsoXvv SeUuOUG2VyE5QKM4 qZSgmW6kiXyvwfbtnI5k Oyc+NDy0v2cwhVVfSU5o eLV5VV84TJ57qGXud9C6 dGM9Y6WeKFKclwif mcnzfRV4MGSiJIDkuP54 Tw0uqLpjCu9cFIVrXWZ3 CLFeiBVkR0LffU5hAsKl WVXjDRMmB4SppCVe OGbqO239HVgoAnF1AZOq onBrA0JjSHMioHqfNtZ0 j9K3Le8OAJ39RW35SZ20 bGSix7L4qDK4Q7Df SPXsxfbhztpvcTP1FKFx PKXyjG90Fi8ctPpfTs8v CRKqXMX0OVKghDVdO3Vz jW4gJmTkTFYlJFAu O4DsrBAjXSoiA499SLuo KvH9ELNplpPwU0JoDKWu hKhfShA5d8N6Do4MFy44 CV65WT55hCYtu7I7 lTB8Q4NbUDNsicptsxxd aVG3RQMmJCOzjE81Kg6c nIecAo7nPYFlFOV8JZTf rTPhF2QhgC1iCzQm QBVhDHEdL8KrhYInBShx T319SUweOnW6ILRoqwAm I7HpPHEnlBivAdC8q9A0 Rw8ZXVebghw9C7Tu PjwvdHI+JW91BIXjUP32 yWXwrCXjw6tscGz3TdRp INYvZVK7eMnrCFaoz4Nw ABQmO11qdOYqk9W1 IGNv (more content not included)... Normal [facility] Consent for Treatmenton 10-2 Consent for Treatment [id number] #1.00CD:127 Normal [facility] IntraOperative Documentson 1 IntraOperative Documents [id number] #1.00CD:127 [facility] Main OR Intraoperative Recor don 04-01-2021 Main OR Intraoperative Record IntraOp Document Type FTURO Summary Primary Physician: Lino Ansari Jr., MD Finalized Date/Time: 04/01/21 14:49:37 Pt. Name: RIC BERRY/Sex: 1960 Male Med Rec #: [id number] Physician: Lino Ansari Jr., MD Financial #: [id number] Pt. Type: O Room/Bed: / Admit/Disch: 04/01/21 14:14:58 - Institution: Case Times FTURO Entry 1 Patient Times In Room 04/01/21 14:35:00 Out Room 04/01/21 14:48:00 Procedure Times Start 04/01/21 14:41:00 Stop 04/01/21 14:44:00 Anesthesia Times Last Modified By: Stew BAUM, Rissa Lawson 04/01/21 14:48:36 Case Attendance FTURO Entry 1 Entry 2 Entry 3 Case Attendee Elan Peterson MD, Lino Mathias RN, Rissa Bullock [facility], Светлана Palacios Role Performed Surgeon - Primary Nail Puller - Primary Scrub - Primary Time In [...] By: Rissa Mathias RN 04/01/21 14:49 Normal [facility] Main OR Intraoperative Record IntraOp Document Type FT Summary Primary Physician: Lino Ansari Jr., MD Finalized Date/Time: 04/01/21 10:59:15 Pt. Name: RIC BERRY/Sex: 1960 Male Med Rec #: [id number] Physician: Lino Ansari Jr., MD Financial #: [id number] Pt. Type: A Room/Bed: Admit/Disch: 03/25/21 11:46:55 - 03/25/21 18:05:00 Institution: Case Times FT Entry 1 Patient Times In Room 03/25/21 14:43:00 Out Room 03/25/21 15:43:00 Procedure Times Start 03/25/21 14:58:00 Stop 03/25/21 15:34:00 Anesthesia Times Start 03/25/21 14:43:00 Stop 03/25/21 15:43:00 Last Modified By: Fred NOALSCO, Marci Newton 04/01/21 10:59:13 General Comments: 03/29/21 Chart opened to review and send charges Mc SHABANAPhilip Case Attendance FT Entry 1 Entry 2 Entry 3 Case Attendee Abe PERKINS, Asuncion Ansari Jr., MD, Lino Pettit CST, Anjana Palacios Role Performed Anesthesiologist Surgeon - Primary Scrub - Primary Director Hospice Operations Time In 03/25/21 14:43:00 03/25/21 14:43:00 03/25/21 14:43:00 Time Out 03/25/21 15:41:00 03/25/21 15:43:00 03/25/21 15:43:00 Procedure CYSTOSCOPY RETROGRADE CYSTOSCOPY RETROGRADE CYSTOSCOPY RETROGRADE STENT INSERTION(Left), STENT INSERTION(Left), STENT INSERTION(Left), CYSTOSCOPY W/ HOMIUM CYSTOSCOPY W/ HOMIUM CYSTOSCOPY W/ HOMIUM LASER(Left) LASER(Left) LASER(Left) Comments Dr. Chan supervising Last Modified By: Zack BAUM, Julio Corbett RN, Nadia Corbett RN, Nadia Elizabeth 03/26/21 15:27:43 03/25/21 15:52:59 03/25/21 15:52:59 Entry 4 Entry 5 Entry 6 Case Attendee Aric BAUM, Nadia Dixon RN, Alba Ibarra Role Performed Nail Puller - Primary Assistant Professor Of Surgery Numerical Control Machine Machinist Time In 03/25/21 14:43:00 03/25/21 14:43:00 03/25/21 14:53:00 Time Out 03/25/21 15:43:00 03/25/21 15:43:00 03/25/21 15:43:00 Procedure CYSTOSCOPY RETROGRADE CYSTOSCOPY RETROGRADE CYSTOSCOPY RETROGRADE STENT INSERTION(Left), STENT INSERTION(Left), STENT INSERTION(Left), CYSTOSCOPY W/ HOMIUM CYSTOSCOPY W/ HOMIUM CYSTOSCOPY W/ HOMIUM LASER(Left) LASER(Left) LASER(Left) Comments Student : Christa Rodriguez present during procedure Last Modified By: Aric BAUM, Nadia Corbett RN, Nadia Corbett RN, Nadia [...] Time Out Abe PERKINS, Asuncion Ramirez, Given Participants Elan Peterson MD, Lino Goodson, Wilver NOLASCO, Aric Wan RN, Nadia Elizabeth, Zack RN, Julio L Time [...] Text: Im (more content not included)... Normal [facility] Main OR Preoperative Recordo n 04-01-2021 Main OR Preoperative Record Holding Area Document Type FTURO Summary Primary Physician: Lino Ansari Jr., MD Finalized Date/Time: 04/01/21 14:40:21 Pt. Name: RIC BERRY /Sex: 1960 Male Med Rec #: [id number] Physician: Lino Ansari Jr., MD Financial #: [id number] Pt. Type: O Room/Bed: / Admit/Disch: 04/01/21 [...] Rissa Mathias RN Document Signatures Signed By: Inocencia PATRICKJc Hamzah 04/01/21 14:24 Rissa Mathias RN 04/01/21 14:40 Normal [facility] Operative Reporton Operative Report Patient: RIC BERRY Age: 60 years Sex: Male : 1960 Associated Diagnoses: None Author: Lino Ansari Jr., MD Procedure Operative Information Details: Date/ Time: 04/01/2021 14:48:00. Pre-Op Dx: Foreign Body in Bladder - T19.1XXA. Post-Op Dx: Same. Anesthesia Type: Local. Procedure: Local Cystoscopy with Stent Removal. Complications: None. Risks/Benefits/Infor med Consent: Surgical risks, benefits, details of the [...] well and was subsequently discharged home. Normal [facility] Comment on above: Result Comment: Elec tronically Signed By: Lino Ansari Jr., MD\.br\Date and Time Signed: 04/01/21 14:48 EDT Calculus Analysison 03-31-20 Calcium oxalate dihydrate Infrared spectroscopy (Stone) [Mass fraction] 20 % Invalid Interpretation Code [facility] Comment on above: Performed By: #### 1 [id number] ####[facility] [address] [place] [address] Calcium oxalate monohydrate (Stone) [Mass fraction] 80 % Invalid Interpretation Code [facility] Comment on above: Performed By: #### 1 [id number] ####[facility] [address] [place] [address] Color (Stone) Brown Invalid Interpretation Code [facility] Comment on above: Performed By: #### 1 [id number] ####[facility] [address] [place] [address] Composition Comment Invalid Interpretation Code [facility] Comment on above: Result Comment: Perc entage (Represents the % composition) Performed By: #### 1 [id number] ####[facility] [address] [place] [address] Disclaimer: Comment Invalid Interpretation Code [facility] Comment on above: Result Comment: This test was developed and its performance characteristics determined by [facility]. It has not been cleared or approved by the Food and Drug Administration. Performed at: [facility] Stone Analysis [address] [place] [address] [address] [place], [place] [phone] MD Maria Elena Trotter Performed By: #### 1 [id number] ####[facility] [address] [place] [address] Laboratory comment Gordo (Report) Comment Invalid Interpretation Code [facility] Comment on above: Result Comment: Phys ician questions regarding Calculi Analysis contact [employer] at: [phone]. Performed By: #### 1 [id number] ####[facility] [address] [place] [address] Please Note: Comment Invalid Interpretation Code [facility] Comment on above: Result Comment: Calc kat report will follow via computer, mail or fish farm manager delivery. Performed By: #### 1 [id number] ####[facility] [address] [place] [address] Size (Stone) [Entitic vol] 2x3 Invalid Interpretation Code [facility] Comment on above: Result Comment: Mult iple pieces received. Dimensions of the largest piece reported. Performed By: #### 1 [id number] ####[facility] [address] [place] [address] Specimen source subject Nom Comment Invalid Interpretation Code [facility] Comment on above: Result Comment: Not provided Performed By: #### 1 [id number] ####[facility] [address] [facility] [place] [address] Stone Photo Comment Invalid Interpretation Code [facility] Comment on above: Result Comment: Phot ograph will follow under a separate cover Performed By: #### 1 [id number] ####[facility] [address] [facility] [place] [address] Weight (Stone) 14 mg Invalid Interpretation Code [facility] Comment on above: Performed By: #### 1 [id number] ####[facility] [address] [facility] [place] [address] Formson 03-31-2021 Forms [id number] #1.00CD:127 Normal [facility] H&P Updateon 03-31-2021 H&P Update [id number]# 1.00CD:127 Normal [facility] Coding Summary.on 03-30-2021 Coding Summary. CD:[id number] Gh0bWw+PGhlYWQ+PE1FV SGiG83zaSFgrI2ME4aVR J9IWNPJPVEZXL3SZW5ht YC6SFjbT8HfooIn KtdspGJlLA11DOl2SRN5 vXznJYlcsM3giSHeR0m0 OzQwIE57tR86NIjbQXQw MnX5RiRthqxzaAVs L8hbIuJamLZrKkm+PHRh YmxlIHdpZHRoPScxMDAl XzSkfPxcDO0jYy0uLXLs LWNvbGxhcHNlOiBj t0upQPPnXCfuPQ9xwRbo M4ZsfZE2HEKgn9p3Aj60 dHI+SQBdPWL4qMxfLLhg j501UrPxw3fpDCC1 aOShEFvsYJB7W45bn2U2 IJXgJCJjTUA9mZO7dI3k zLwfoufdS5LgdENlZnX5 XCT4fJVtkP0esQaa cjzmmF0sHeh+W22BDM8W TPBJXA4XIbt8G7RrJzey dHI+EA88MKGgZW74pNYd bAOnn0jxkEu7FmVo TRPdDTW6sUvjJOeyq7Lj MUFdY33gwXCoe8I5MNYf cWwulWRcTyRkyVP3pB0j HJebzolgt8trnuhh Jyizz0joir04qG31E82l DHzbDSRoGLO1VJLdYCHj qFjnll1tlS3xPi0+IDxj h1fnv5kwlJl5TqLa WLPrtwUoeTxdQFC6y0Ai Vj10C5DvaRrvx6BjUtw8 cx41bMZvb4S7nMF5AYqv PZEdaV6pCWyrQwC5 SOIvSyPthB21kRXxGFog Ko0peJhohBweTT5fAPEt lnvwPCVpcB7pPYDexOVw hPhxBQ4uHQLmovbb k476MtIfLUM2ZDTppDNa X1GgoR9fVzXeSPFaBSAa X4WnsHEzCPlaL872ZCln DaN1OCCuriDlG5Xs EBVtgBifMcH1t0Z2Hn1P o3InpmiiQIW1HHmtMWAi IaD5PkAsLyW7P0SxPvi3 CPZafHhfXV8rU3Mf FWZofzgmqdufbXI8QNQp VKBmlL78oWAhOCegNt0b c7A9w709DLMvCVAbfF24 Az2exChkZQPunCDT yF7qmxxsb4ribpqjGrIv CGHnXXf8MYw6PZTriJwm PeNgSUH5OtX6GHU3sOUf lH3frMprrgsxtF9l Oyc+H35qoN7xVYE7THU6 fdueBEArdnZjIT87WC34 M5VhDttwhKMqfKN+PGRp mwUduEepDT6cUmSj q5lre7OyMDuvG6YmPNMo OCspQsm2GIBfXQQ5zIC6 kJ6cGGEkTXkcs5I1wWH2 T6EnvpHzwv7xp7gv IKIiUYufJ85mwTSrz3Q9 HFQhrPY6HFJijLnmXxDy xR26Bci+HDNhwQhrv9Ef Abzxr6lri0iczCl9 IjMwJSIgdmFsaWduPSJ0 w1MnHh32E62cPRenPHVq ZTCuZYUiPLIycJlrhe5b xB5qSg4+PGNvbCB3 xGO8rP9iXDAiOoG3MNnp D865NhSqyBYgIuhhy4gn b1poqKn1TgBtBBCokkLq fHzoGAU0g1GwKd41 B04wAZhnYVUtMYXqBZCf YJJbpSrcki5fcC7qJj1+ FI3nn3rxtn85nN12xUS+ RCWiIHN9cTlaMLly PTMhcD6rLLpyNgZ2UMVz ZuOhgW85fMLyMVxoIe8d xUhrjIwvXW0zGOJdvmbm l540DkJus5eiKPOj iZUnCPjfHNN2L41cm9J9 NNFlJGLiNPR9aZL9kL7o bGlnbjogbGVmdDsgdmVy rZejJNjuAFurP147 IHRvcDsnPlBhdGllbnQg PuWxOSy2Y3CeKpl1FFKw pGurWX5lpLBjITtcDg0s hYoczCgkRW2dJZDm gpvmm803DaIkd5tdOBRu vWGuRJdmBTS9H83cn3L0 HVBsUZCoHLU0vWT6wY7m bGlnbjogbGVmdDsg zxLlqShjUVstRUulO418 IHRvcDsnPkJpcnRoIERh hDP7MT56NP41wSTwx9T2 zIM4Z3AdUJTndgyv qyqqgYL9NPYbLQQixN40 Zp6qwRtxQr8cLPIqDSZ8 JZOziALuM5GvkA4wAtYg HMZrVNVcA5WazJRi XYsnT466OFsfOwJ6ABEq hrVsW7CeFTEkxXklCsL1 l2J8Fo9PZ0Y4XZ01FG55 uAHhz0M8dDP6H4Yq VAVzsrwqugsqgNW9VJEm GMIlsA47Kw5omLycUs0d GXZdNNT9QEGleOKcQ9Uu aQ9xPkAyKHNzUFTc Q0TigUTmTFusD989XPuu SnG7EZEznmCeX8GkZGUo lZtvLlQ2w9A0Hz1ZHBr4 BG39XU39qAGez4G8 vXP2L8MjQHMkzermjxzk lDN3NIKsIDOykW11Qs1w eWtpKr4vWHIwBFI2JPUh fWMlT2TqvP6iQtNu INArIHInG7XojUTlAKxl H782OOjpOuZ6MTKhzfZd G8AqXIBamVusBrJ3j0N1 Ez9WURHlAT46GAL5 lPM2QX55TQ37K9TqWlez dGFibGU+PHRhYmxlIHdp ZHRoPScxMDAlJyBzdHls PJ7wYl2oSLVjKEUh bSkdmWMyXrZrc5qbFASj AHmjSO8prZnfG2KohGA6 TONmw7n4Wq27B17lP5Ae dXA+FNTqwFF7lZI6 eX4hDhXbVpH9ZTkxI557 BaYgyFAqJbnwh8kyc9kt hVs1WzS1DSRoonDfpFlt STS9n7VbJl19F19g IHdpZHRoPSIxNSUiIHZh eDytvu1yhE4fPr0+PGNv rND9gQA9fC8fPrHyJjK2 GLyxX495LrPpxKEe Qlgts2elk4lbkYc3BzAm XLIdvnXzwFigBWZ1a2Wu Te05M7AoqSxtx1YbLym6 dd65iFEgo8R1tSX7 L0SyGQNqkwvvlMLqsGul AO5aIHBflchlVRBwlC7k PPRpW9u3QaVdHwT4RUdq R7QhopS1YHCrwKLh OZucASO2R23da0R1BNOn NLDxBZW5yWY4oT9qdMbo bjogbGVmdDsgdmVydGlj LImoPYtiQ535BLPh zPjyWNYaxU6eHIQutUSs vFgoWQ8wXEOigdpnOv8T DS3cXBsANOmDVew7T5Bw Cma2UKMmwSzmZN6w jFMvWSpmHd7nkTwcoYlc VT5pBNAdzheiZSEurQ5g ZRGqcMUliKmcGA1cYZFt wfwdp531StMfGDV4 VTHgiETwE1BunG5bJeMs KLBcGVBqO3ImfVGrBWze D941VQpaItZ3SNTsjgBo F6CoAICrnEzoSeU8 c4H3Vb4jOy7nLd0lFBKd MU67TK15kODtg5J0eHK8 Q3ZcHBWvukspyeoekBN0 ZGJwIWMpeU95pVVx LYbuLv0sf4R6d719GXYr YWSetH42Bt9vbTysEJBb xBRNgM2gxjtlx4oemorw AdMrUYWeLYq2EUn8 ODYlaBvyNeBsHKH5AxG9 EIR3nPFecC8jmErnairg uW6rBxm+NTggWWVhcnM8 K3SlCvl9ORRenAbz NF0gcQHzURwqTl8kqVhl lIboQN3zUIZwilquRMEl wI6tECQdlQHeiIbrCN9v SEKihtrqm690BwFi QNH1EEDgdOXkN5JfnG9b LiLfDSCjADCbP1XozVFi WQaeB838GMnlGzR8KLHi ucLvR4NsHDFybOia ArP4g5F7Ry0FNXjhWV37 MI17sYRdc7L0mMQ6G3Bp ALSwoxwvggbibHV9TYWv ILCodA14fGYiARzo Fn3xd1Z7z181PIRtZYHu aE65Sd4dpXcuBEUbuAJY qP7viirxt9himpjrTdWq UERfUFg5KUj1BWMu rZblErCbXHA1RmS4FWI7 iWIklD7zxFfixmvfgN7x Oyc+SC7ccOlreP2iqE1H YK5qGQQmzURErQQu NXP0XO90VL52L3VnBmwc dGFibGU+PHRhYmxlIHdp ZHRoPScxMDAlJyBzdHls DH4aQy4xTPRmRSWk zZdtqJLtNmYrk7asNJGn HIgrNG3jwRkpT1LpaND0 GJNda7c6Yj11I40gR2Ty dXA+BFVszXQ6qYV6 bS3aKfRzQvL2LUlkJ871 KaJyaVOqWvzhh6qtj0nr xWp7JnByQBJecfGrnAjs UVO1w0NrCu21B38a IHdpZHRoPSIyMCUiIHZh iRoxjh2duZ3wKh7+PGNv xIE7hYU3tI2pJqKuKrL7 XRxxO844VxFyfJNm TnmuX65jX3MpjCM+PHRy Zit6CCMgbKcnYS7zmHDt FPlrQo7sSYR7SgKoNdBe KJuuO5SwHIYngqry tyioiYS1LAQyVFWvhN69 Mr1srMncPz4mHVIcEYP9 YCYfeKGgI3CkaC7hTpRl AZBiNICcZ9BrqUXe IBcrX608OHqjNgO9RGCo fcXkH3KzJWItrXlxZoF6 f8R5Lq2QfOdioXSmFH5d FqMnEEx5M9XpIph5 HLKvfZzaEN8igEJnIWzw Gt4ykNfjfJdkWZ9aRKJf gtsge816DwQgy9hfEQHb kYNjTHbkQLA4V83k h6U0IOJdVIXuRQI2tXA8 hB2rpHshixdbkVOryIlc uiBcbJdtYOdfIJmuD608 IHRvcDsnPkZJTjo8 I1PmGvm0DIHqeCjwRA0x fGVtDNpjLe7dqYwqlSgy GN2uPJLxzxppz263VqKu v9tmMLLrsDLnMUeu KTT8G36po5K6YIVeNQQh FTP7dBD3xJ5irCcwrwol bGVmdDsgdmVydGljYWwt NDuoC518ITYurDhn Kt0ITig3E5GsFby4FVXf jBogEG4izMOrSCltFz2e wIaxhHzlDZ9eXUAurmdu j308OmBgt9ijLSZk wFMxEItfGIG1T25bo0B1 ZNAmAHNoPXG3bYQ2rZ9e bGlnbjogbGVmdDsgdmVy kHufGZtyLJjmR640 IHRvcDsnPlBheWVyOjwv dGQ+CS68jd73E1NeZbbf Xni7GFJvOVC4pCC2xN5o KRWqZYgrp2X7iYY6 J2Jv (more content not included)... Normal [facility] Postoperative Documentson Postoperative Documents [id number] 5#1.00CD:127 [facility] Pre-Certification Formon Pre-Certification Form [id number] #1.00CD:127 [facility] Progress Note-Physicianon Progress Note-Physician Patient: RIC BERRY Age: 60 years Sex: Male : 1960 Associated Diagnoses: None Author: Deniz Chan MD Postoperative Information Post Operative Note: Post Anesthesia Care Unit. Anesthetic utilized: General. Health Status Allergies: Allergic Reactions (All) Severity Not Documented Baclofen- Unknown. Celecoxib- Unknown. Iodine- Unknown. Problem list: All Problems Anxiety / SNOMED CT 31175289 / Confirmed Physical Examination Intake and Output adequate hydration Measurements from flowsheet : Measurements 03/25/2021 12:34 EDT Height/Length Measured 177.0 cm Weight Measured 85.5 kg 03/25/2021 12:25 EDT Height/Length Measured 177.0 cm (Modified) Weight Dosing 85.5 kg Bowen Body Weight Calculated 72.276 kg (Modified) BSA Measured 2.05 m2 Body Mass Index Measured 27.29 kg/m2 Weight Measured 85.5 kg 03/24/2021 8:35 EDT Height/Length Dosing 178.0 cm Weight Dosing 84.0 kg 03/24/2021 8:35 EDT Height/Length Measured Date\Time Correction Height/Length Dosing 177.8 cm Bowen Body Weight Calculated Date\Time Correction Pain assessment: [...] discharged from anesthesia care. Condition stable. Normal [facility] Comment on above: Result Comment: Elec tronically Signed By: Dustin PARDO, Deniz\.br\Date and Time Signed: 03/29/21 16:40 EDT Consent for Anesthesiaon Consent for Anesthesia [id number] 100 [id number] #1.00CD:127 Normal [facility] Consent for Procedure/Surger yon 03-26-2021 Consent for Procedure/Surgery [id number] #1.00CD:127 Normal [facility] Discharge Instructionson Discharge Instructions [id number] 100 [id number] #1.00CD:127 Normal [facility] IntraOperative Documentson 1 IntraOperative Documents [id number] #1.00CD:127 Normal [facility] IntraOperative Documents [id number] #1.00CD:127 Normal [facility] Preoperative Documentson Preoperative Documents [id number] #1.00CD:127 Normal [facility] Capillary Glucose POCon 03-12 Glucose [Mass/Vol] 134 mg/dL High 55-99 [facility] Comment on above: Performed By: #### 2 [id number] ####[facility] [address] [place] [address] Consent for Treatmenton 03-12 Consent for Treatment [id number] #1.00CD:127 Normal [facility] ECG 12-Leadon 03-25-2021 ECG 12-Lead [id number] #1.00CD:127 Normal [facility] Immunization Recordson 03-25 Immunization Records [id number] #1.00CD:127 Normal [facility] Inpatient Patient Summaryon 03-25-2021 Inpatient Patient Summary [place] [id number] [facility] Clinical Discharge Instructions PERSON INFORMATION Name: RIC BERRY PHYSICIANS Admitting Physician: Lino Ansari Jr., MD Attending Physician: Lino Ansari Jr., MD PCP: CHRISTOPHER WU DO Discharge Diagnosis: Hydronephrosis with renal and ureteral calculus obstruction Comment: PATIENT EDUCATION INFORMATION Instructions: Tqbm-Ictg-mp Utereroscopy,Lithotr ipsy, Stone Extraction, Stent Placement (Custom); Cystoscopy; Post Op Patient Instructions - FT (Custom) (Custom) Medication Leaflets: Follow up: With: Address: When: [facility], [address], [facility] [place] [address] Business (1) Within 1 week Comments: My office will schedule cystoscopy with stent extraction. MEDICATION LIST New Medications [id number], [address], [place] [id number], [phone] acetaminophen-oxycod one (Percocet 5 mg-325 mg oral tablet) 1 Tablets By Mouth every 6 hours as needed Pain 8-10. Refills: 0. cephalexin (Keflex 500 mg Cap) 1 Capsules By Mouth every 12 hours for 5 Days. Refills: 0. hyoscyamine (Levsin 0.125 mg SL Tab) 1 Tablets By Mouth 4 times a day as needed spasm. Refills: 0. Medications to Continue with No Changes Other Medications acetaminophen-hydroc odone (acetaminophen-hydro codone 325 mg-5 mg oral tablet) 1 Tablets [...] Tablets By Mouth every day. Comment: Normal [facility] Main OR PACU I Recordon 03-12 Main OR PACU I Record PACU Phase I Document Type FT Summary Primary Physician: Lino Ansari Jr., MD Finalized Date/Time: 03/25/21 18:09:07 Pt. Name: RIC BERRY/Sex: 1960 Male Med Rec #: [id number] Physician: Lino Ansari Jr., MD Financial #: [id number] Pt. Type: A Room/Bed: [facility] Admit/Disch: 03/25/21 11:46:55 - Institution: [...] By: Anabela Yeh RN 03/25/21 18:09 Normal [facility] Main OR PACU II Recordon Main OR PACU II Record PACU Phase II Document Type FT Summary Primary Physician: Lino Ansari Jr., MD Finalized Date/Time: 03/25/21 18:08:49 Pt. Name: RIC BERRY.O.B./Sex: 1960 Male Med Rec #: [id number] Physician: Lino Ansari Jr., MD Financial #: [id number] Pt. Type: A Room/Bed: Admit/Disch: 03/25/21 11:46:55 [...] By: Beatriz Blankenship RN 03/25/21 18:08 Normal [facility] Main OR Preoperative Recordo n 03-25-2021 Main OR Preoperative Record PreOp Document Type FT Summary Primary Physician: Lino Ansari Jr., MD Finalized Date/Time: 03/25/21 15:55:27 Pt. Name: RIC BERRY /Sex: 1960 Male Med Rec #: [id number] Physician: Lino Ansari Jr., MD Financial #: [id number] Pt. Type: A Room/Bed: Admit/Disch: 03/25/21 11:46:55 [...] Nadia Corbett RN, I 03/25/21 15:55 Normal [facility] Monitor Recordon 03-25-2021 Monitor Record [id number]#1.00CD:127 Normal [facility] Operative Reporton Operative Report Patient: RIC BERRY Age: 60 years Sex: Male : 1960 Associated Diagnoses: None Author: Lino Ansari Jr., MD Postoperative Information Procedure: Hydronephrosis with left ureteral calculus Date/ Time: 03/25/2021 15:42:00 Preoperative Diagnosis: Hydronephrosis with renal and ureteral calculus obstruction ([id number] N13.2, Discharge, Medical). Postoperative Diagnosis: Hydronephrosis with renal and ureteral calculus obstruction ([id number] N13.2, Discharge, Medical). Performed by: Elan Peterson [...] the lab for chemical analysis. A 6 [place] double-J ureteral stent was then placed over [...] FACS. Specimens Removed: Ureteral calculi. Prosthesis: 6 [place]agu[place] double-J ureteral stent. . Estimated Blood Loss: 0 ml. Complications: None. Anesthesia type: General. [facility] Comment on above: Result Comment: Elec tronically Signed By: Lino Ansari Jr., MD\.br\Date and Time Signed: 03/25/21 15:50 EDT Outpatient Surgery Discharge Instructionon 03-25-2021 Outpatient Surgery Discharge Instruction [place] [id number] Patient Discharge Instructions PERSON INFORMATION Name: RIC [...] THE NEAREST EMERGENCY ROOM OR CALL 911 JAMAL Elizabeth GREGORY, have received the attached patient education materials/instructio ns and have verbalized understanding: May we do a follow up call? Yes No I was present when discharge instructions were given Patient Signature Date Clinican/Nurse Signature Date Follow up: With: Address: When: Lino Ansari [facility], [address], [place] [address] Business (1) Within 1 week Comments: My office will schedule cystoscopy with stent extraction. Pharmacy Information: [facility] [place] You may receive a survey from Elen Aggarwal asking you to rate your care experience. Your feedback is important and will help us understand what we do well and how we can improve the quality of care we provide to you, your loved ones and our community. It?s an honor to serve you. Thank you for choosing [facility] HERE ARE THE MEDICATION CHANGES THAT OCCURRED DURING YOUR HOSPITAL STAY New Medications [id number], [address], [place] [id number], [phone] acetaminophen-oxycod one (Percocet 5 mg-325 mg oral tablet) 1 Tablets By Mouth every 6 hours as needed Pain 8-10. Refills: 0. cephalexin (Keflex 500 mg Cap) 1 Capsules By Mouth every 12 hours for 5 Days. Refills: 0. hyoscyamine (Levsin 0.125 mg SL Tab) 1 Tablets By Mouth 4 times a day as needed spasm. Refills: 0. Medications to Continue with No Changes Other Medications acetaminophen-hydroc odone (acetaminophen-hydro codone 325 mg-5 mg oral tablet) 1 Tablets [...] day. PATIENT EDUCATION INFORMATION Instructions: [facility] [place], [place] Post-operative Instructions for Stent Placement There [...] other reasons. If it is to remain senior living, however, changes of the stent are required [...] ba (more content not included)... Normal [facility] Patient Education - Texton 1 Patient Education - Text (Inserted Image . Unable to display) Procedures Cystoscopy Cystoscopy is a procedure that [...] including vitamins, herbs, eye drops, creams, and nnvy-btc-dnisqdm medicines. ? Any problems you or family [...] tells you to take them. ? Taking qbyh-afg-qculbgu medicines, vitamins, herbs, and supplements. ? Follow [...] these instructions at home: Medicines ? Take snti-hqu-xdefnks and prescription medicines only as told by [...] yellow. ? (more content not included)... Normal [facility] Progress Note-Physicianon Progress Note-Physician Patient: RIC BERRY [...] difficulty, No chest pain. Respiratory: No SOB. Hematology/Lymphatic s: Negative. Gastrointestinal: Negative. Musculoskeletal: Negative. Neurologic: Negative. [...] selected or recorded. Procedure history: Hip replacement ([id number]). Social History Social & Psychosocial Habits Tobacco [...] review: No qualifying data available . Plan [place] [employer] (ASA) physical status classification: [...] and lungs, allergic reactions, and .. Normal [facility] Comment on above: Result Comment: Elec tronically Signed By: Dustin PARDO, Deniz\.br\Date and Time Signed: 03/25/21 15:05 EDT XR Abdomen 1 Viewon 03-25-20 21 XR Abdomen 1 View Exam Date/Time: 03/25/2021 12:10 EDT Reason for Exam: Kidney stone Report IMPRESSION: Nonobstructive bowel gas pattern. EXAMINATION/TECHNIQU E: XR Abdomen 1 View HISTORY: Previous surgery [...] V. Transcribed by: LOUIS Technologist: HARRIET [facility] [facility] Retrograde Left on 03-25-2021 XR Urography Retrograde Left Exam Date/Time: 03/25/2021 15:43 EDT Reason for Exam: Kidney stone Report IMPRESSION: LEFT URETERAL STENT PLACEMENT. CLINICAL HISTORY: Kidney stone COMPARISON: 03/25/2021 12:28 PM. FINDINGS: 3 digital spot images of the abdomen were obtained in surgery. 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 image shows a tiny left renal calculus [...] Dose: Ka,r in mGy = 465.9 Normal [facility] Consent for Treatmenton 03-12 Consent for Treatment [id number] #1.00CD:127 Normal [facility] Outside Recordson 03-24-2021 Outside Records [id number]#1.00CD:127 Normal [facility] Physician Orderon 03-24-2021 Physician Order [id number] #1.00CD:127 Normal [facility] RAD - MISCon 03-24-2021 RAD - MISC [id number] #1.00CD:127 Normal [facility] XR Chest 2 Viewson XR [...] Kidd MD Transcribed by: LOUIS Technologist: MAJO Guardado [facility] Anesthesia Recordon 12-31-19 Anesthesia Record Patient: RIC BERRY MRN: [id number] Age: 60 years Sex: Male : 1960 Associated Diagnoses: None Author: Frankie PARDO, Sergo Jewell Procedure Time Out [place] Protocol: patient identity verified, site verified, side verified, procedure to be done verified. REGIONAL ANESTHESIA PROCEDURE Procedure date and begin time: Date/ Time 12/30/2020 09:36:00, Spinal block. Procedure date and end time: Date/ Time 12/30/2020 09:39:00. Performed by: I have personally performed this procedure. Assisted by: Preop RN. Referred by: Regional anesthesia requested by surgeon for postoperative pain control. Technique: Spinal technique performed. Medications-Sedation : none. Indication for Peripheral Nerve Block: post [...] . Normal [facility] OR Nursingon 12-30-2020 OR Nursing Normal [facility] PACU I Nursingon 12-30-2020 PACU I Nursing [facility] NA PACU I Nursing Record Summary Primary Physician: Quentin Ramirez MD Finalized Date/Time: 12/30/20 12:49:47 Pt. Name: RIC BERRY/Sex: 1960 Male Med Rec #: [id number] Physician: Financial #: [id number] Pt. Type: A Room/Bed: / Admit/Disch: 12/30/20 [...] By: Mendoza Soto RN 12/30/20 12:49 Normal [facility] PreOp Nursingon 12-30-2020 PreOp Nursing [place] NA PreOp Nursing Record Summary Primary Physician: Quentin Ramirez MD Finalized Date/Time: 12/30/20 09:42:21 Pt. Name: RIC BERRY/Sex: 1960 Male Med Rec #: [id number] Physician: Financial #: [id number] Pt. Type: A Room/Bed: / Admit/Disch: 12/30/20 07:04:00 - Institution: [facility] NA OR PreOp Case Times Entry 1 PreOp Case Times In Room Time 12/30/20 07:40:00 Out Room Time 12/30/20 09:40:00 Last Modified By: Fernando Zimmerman RN 12/30/20 09:42:21 CO NA OR PreOp Case Attendees Entry 1 Case Attendee Jenna Blanc RN RN Last Modified By: Jenna Blanc RN 12/30/20 07:40:38 Finalized By: Fernando Zimmerman RN Document Signatures Signed By: Fernando Zimmerman RN 12/30/20 09:42 Normal [facility] XR Pelvis 1-2 Viewson 2020 XR Pelvis 1 or 2 Views EXAM: XR Pelvis 1 -2 Views HISTORY: Postoperative COMPARISON: None. TECHNIQUE: AP radiograph of the pelvis. FINDINGS: There is a left total hip arthroplasty with surrounding postprocedural change. Hardware is intact. Alignment is within expected limits. Partially evaluated right hip is unremarkable. IMPRESSION: Left total hip arthroplasty, as above. [place] thanks you for the opportunity to care for your patient. Workstation ID: [id number] - [id number] FINAL REPORT Dictated By: Latonya Hampton MD 12/30/2020 13:05 Assigned Physician: Latonya Hampton MD Reviewed and Electronically Signed By: Latonya Hampton MD 12/30/2020 13:06 Transcribed by: CRISTINA 12/30/2020 13:05 Technologist: SARAH Normal [facility] Comment on above: Order Comment: Posto perative, s/p JENIFFER Basic metabolic 2000 panelon 12-16-2020 Calcium [Mass/Vol] 9.6 mg/dL Normal 8.5-10.6 [facility] Chloride [Moles/Vol] 103 mmol/L Normal 98-107 [facility] CO2 [Moles/Vol] 25 mmol/L Normal 21-32 [facility] Creatinine [Mass/Vol] 0.81 mg/dL Normal 0.70-1.30 [facility] Glucose [Mass/Vol] 133 mg/dL High 70-99 [facility] Potassium [Moles/Vol] 4.2 mmol/L Normal 3.5-5.1 Livia [facility] Sodium [Moles/Vol] 139 mmol/L Normal 136-145 [facility] Urea nitrogen (BldV) [Mass/Vol] 15 mg/dL Normal 7.0-18.0 [facility] Urea nitrogen/Creatinine [Mass ratio] 19 mg/mg Normal [facility] CBC W Auto Differential pane l (Bld)on 12-16-2020 Basophils (Bld) [#/Vol] 0.0 thou/mcL Normal 0.0-0.2 [facility] Basophils/100 WBC (Bld) 0.4 % Normal 0-3 M [facility] Differential cell count method Nom (Bld) AUTOMATED DIFFERENTIAL Normal [facility] Eosinophils (Bld) [#/Vol] 0.1 thou/mcL Normal 0.0-0.4 [facility] Eosinophils/100 WBC (Bld) 2.4 % Normal 0-7 [facility] Lymphocytes (Bld) [#/Vol] 2.4 thou/mcL Normal 0.7-4.5 [facility] Lymphocytes/100 WBC (Bld) 49.7 % High 14-46 [facility] Monocytes (Bld) [#/Vol] 0.4 thou/mcL Normal 0.1-1.0 [facility] Monocytes/100 WBC (Bld) 8.1 % Normal 4-13 M [facility] Neutrophils (Bld) [#/Vol] 1.9 thou/mcL Normal 1.5-7.8 [facility] Neutrophils/100 WBC (Bld) 39.4 % Low 40-74 [facility] Erythrocyte distribution width (RBC) [Entitic vol] 13.4 % Normal 11.7-15.0 [facility] Hematocrit (Bld) [Volume fraction] 46.0 % Normal 34.0-50.0 [facility] Hemoglobin (Bld) [Mass/Vol] 15.7 g/dL Normal 11.5-17.0 [facility] MCH (RBC) [Entitic mass] 30.5 Picograms Normal 27.0-34 .0 [facility] MCHC (RBC) [Mass/Vol] 34.1 g/dL Normal 32.0-36.0 [facility] MCV (RBC) [Entitic vol] 89.3 fL Normal 80-98 [facility] Platelet mean volume (Bld) [Entitic vol] 9.5 fL Normal 7.5-11.2 [facility] Platelets (Bld) [#/Vol] 271 thou/mcL Normal 140-415 [facility] RBC (Bld) [#/Vol] 5.15 x(10)6/mcL Normal 3.80-5.60 Mo [facility] WBC (Bld) [#/Vol] 4.9 thou/mcL Normal 4.0-10.5 [facility] Vital Signs Date Time Vital Sign Value Performing Clinician Facility 04-26-2024 14:56-0500 Body height 173.99 cm [facility] 04-26-2024 14:56-0500 Body mass index (BMI) [Ratio] 30.2 kg/m2 [facility] 04-26-2024 14:56-0500 Body weight 91.62 kg [facility] 04-26-2024 14:56-0500 Diastolic blood pressure 80 mm[Hg] [facility] 04-26-2024 14:56-0500 Heart rate 89 /min [facility] 04-26-2024 14:56-0500 Systolic blood pressure 132 mm[Hg] [facility] 03-06-2024 15:55-0400 Body height 175.26 cm [facility] 03-06-2024 15:55-0400 Body mass index (BMI) [Ratio] 29.2 kg/m2 [facility] 03-06-2024 15:55-0400 Body weight 89.81 kg [facility] 03-06-2024 15:55-0400 Diastolic blood pressure 80 mm[Hg] [facility] 03-06-2024 15:55-0400 Heart rate 103 /min [facility] 03-06-2024 15:55-0400 Systolic blood pressure 128 mm[Hg] [facility] 01-16-2024 16:04-0400 Body height 175.26 cm [facility] 01-16-2024 16:04-0400 Body mass index (BMI) [Ratio] 29.7 kg/m2 [facility] 01-16-2024 16:04-0400 Body weight 91.17 kg [facility] 01-16-2024 16:04-0400 Diastolic blood pressure 78 mm[Hg] [facility] 01-16-2024 16:04-0400 Heart rate 80 /min [facility] 01-16-2024 16:04-0400 Respiratory rate 12 /min [facility] 01-16-2024 16:04-0400 Systolic blood pressure 127 mm[Hg] [facility] 10-06-2023 14:31-0400 Body height 175.26 cm [facility] 10-06-2023 14:31-0400 Body mass index (BMI) [Ratio] 29.2 kg/m2 [facility] 10-06-2023 14:31-0400 Body weight 89.81 kg [facility] 10-06-2023 14:31-0400 Diastolic blood pressure 78 mm[Hg] [facility] 10-06-2023 14:31-0400 Heart rate 88 /min [facility] 10-06-2023 14:31-0400 Systolic blood pressure 139 mm[Hg] [facility] 09-05-2023 11:43-0400 Diastolic blood pressure 74 mm[Hg] Johnnie Hutton MD Work Phone: [facility] [employer] [facility] 09-05-2023 11:43-0400 Systolic blood pressure 142 mm[Hg] Johnnie Hutton MD Work Phone: [facility] [employer] [facility] 09-05-2023 11:30-0400 Heart rate 83 /min Johnnie Hutton MD Work Phone: [facility] 09-05-2023 11:30-0400 Respiratory rate 16 /min Johnnie Hutton MD Work Phone: [facility] 09-05-2023 11:30-0400 SaO2% (BldA) [Mass fraction] 95 % Johnnie Hutton MD Work Phone: [facility] 09-05-2023 10:56-0400 Body temperature 97.5 [degF] Johnnie Hutton MD Work Phone: [facility] 09-05-2023 08:41-0400 Body height 175.3 cm Johnnie Hutton MD Work Phone: [facility] 09-05-2023 08:41-0400 Body mass index (BMI) [Ratio] 27.35 kg/m2 Johnnie Hutton MD Work Phone: [facility] 09-05-2023 08:41-0400 Body weight 84.01 kg Johnnie Hutton MD Work Phone: [facility] 08-08-2023 15:09-0500 Body height 175.26 cm [facility] 08-08-2023 15:09-0500 Body mass index (BMI) [Ratio] 30.6 kg/m2 [facility] 08-08-2023 15:09-0500 Body weight 94 kg [facility] 08-08-2023 15:09-0500 Diastolic blood pressure 77 mm[Hg] [facility] 08-08-2023 15:09-0500 Heart rate 85 /min [facility] 08-08-2023 15:09-0500 Respiratory rate 12 /min [facility] 08-08-2023 15:09-0500 Systolic blood pressure 130 mm[Hg] [facility] 06-26-2023 15:00-0500 Body height 175.26 cm Christopher Wu Other [employer] [facility] [employer] Other 06-26-2023 15:00-0500 Body mass index (BMI) [Ratio] 29.86 kg/m2 Christopher Ball Other [employer] Other 06-26-2023 15:00-0500 Body weight 91.72 kg Christopher Ball Other [employer] Other 06-26-2023 15:00-0500 Diastolic blood pressure 85 mm[Hg] Christopher Ball Other [employer] Other 06-26-2023 15:00-0500 Respiratory rate 12 /min Christopher Ball Other [employer] Other 06-26-2023 15:00-0500 Systolic blood pressure 124 mm[Hg] Christopher Ball Other [employer] Other 03-14-2023 14:00-0400 Body height 175.26 cm Christopher Ball Other [employer] Other 03-14-2023 14:00-0400 Body mass index (BMI) [Ratio] 28.73 kg/m2 Christopher Ball Other [employer] Other 03-14-2023 14:00-0400 Body weight 88.27 kg Christopher Ball Other [employer] Other 03-14-2023 14:00-0400 Diastolic blood pressure 86 mm[Hg] Christopher Ball Other [employer] Other 03-14-2023 14:00-0400 Respiratory rate 12 /min Christopher Ball Other [employer] Other 03-14-2023 14:00-0400 Systolic blood pressure 121 mm[Hg] Christopher Ball Other [employer] Other 12-21-2022 15:00-0400 Body height 175.26 cm Christopher Ball Other [employer] Other 12-21-2022 15:00-0400 Body mass index (BMI) [Ratio] 28.97 kg/m2 Christopher Ball Other [employer] Other 12-21-2022 15:00-0400 Body weight 89 kg Christopher Ball Other [employer] Other 12-21-2022 15:00-0400 Diastolic blood pressure 80 mm[Hg] Christopher Ball Other [employer] Other 12-21-2022 15:00-0400 Respiratory rate 12 /min Christopher Ball Other [employer] Other 12-21-2022 15:00-0400 Systolic blood pressure 126 mm[Hg] Christopher Ball Other [employer] Other 11-26-2022 09:00-0400 Body height 175.26 cm Kacey Vazquez Other [employer] Other 11-26-2022 09:00-0400 Body mass index (BMI) [Ratio] 28.5 kg/m2 Kacey Vazquez Other [employer] Other 11-26-2022 09:00-0400 Body temperature 97.1 [degF] Kacey Vazquez Other [employer] Other 11-26-2022 09:00-0400 Body weight 87.54 kg Kacey Vazquez Other [employer] Other 11-26-2022 09:00-0400 Diastolic blood pressure 74 mm[Hg] Kacey Vazquez Other [employer] Other 11-26-2022 09:00-0400 Respiratory rate 18 /min Kacey Vazquez Other [employer] Other 11-26-2022 09:00-0400 SaO2% (BldA) [Mass fraction] 97 % Kacey Vazquez Other [employer] Other 11-26-2022 09:00-0400 Systolic blood pressure 106 mm[Hg] Kacey Vazquez Other [employer] Other 10-10-2022 16:00-0400 Body height 175.26 cm Christopher Ball Other [employer] Other 10-10-2022 16:00-0400 Body mass index (BMI) [Ratio] 28.59 kg/m2 Christopher Ball Other [employer] Other 10-10-2022 16:00-0400 Body weight 87.82 kg Christopher Ball Other [employer] Other 10-10-2022 16:00-0400 Diastolic blood pressure 77 mm[Hg] Christopher Ball Other [employer] Other 10-10-2022 16:00-0400 SaO2% (BldA) [Mass fraction] 96 % Christopher Ball Other [employer] Other 10-10-2022 16:00-0400 Systolic blood pressure 108 mm[Hg] Christopher Ball Other [employer] Other 08-08-2022 15:45-0500 Body height 175.26 cm Christopher Ball Other [employer] Other 08-08-2022 15:45-0500 Body mass index (BMI) [Ratio] 29.12 kg/m2 Christopher Ball Other [employer] Other 08-08-2022 15:45-0500 Body weight 89.45 kg Christopher Wu Other [employer] Other 08-08-2022 15:45-0500 Diastolic blood pressure 76 mm[Hg] Christopher Wu Other [employer] Other 08-08-2022 15:45-0500 Respiratory rate 12 /min Christopher Wu Other [employer] Other 08-08-2022 15:45-0500 Systolic blood pressure 118 mm[Hg] Christopher Wu Other [employer] Other 11-09-2021 08:53-0400 Blood Pressure Location Lino Ansari Jr. [facility] 11-09-2021 08:53-0400 Diastolic blood pressure 88 mm[Hg] Lino Ansari Jr. [facility] 11-09-2021 08:53-0400 Heart rate 81 /min Lino Ansari Jr. [facility] 11-09-2021 08:53-0400 Systolic blood pressure 113 mm[Hg] Lino Ansari Jr. [facility] Encounters Encounter Date Encounter Type Care Provider Facility Start: 04-26-2024 End: 04-26-2024 ambulatory [facility] Work Phone: Start: 04-26-2024 End: 04-26-2024 Patient encounter procedure [facility] Physician [facility] Work Phone: Start: 04-25-2024 End: 04-27-2024 ambulatory JOHNNIE MICHAELSFLOYDDIANN [facility] Start: 04-25-2024 End: 04-27-2024 Subsequent hospital visit by physician Andressa Hector Dr Room 4 [facility] Comment on above: Ureteral calculus; Renal calculus Start: 04-24-2024 Non-patient / Non-visit [facility] Physician [facility] Work Phone: Start: 03-06-2024 End: 03-06-2024 ambulatory [facility] Work Phone: Start: 03-06-2024 End: 03-06-2024 Patient encounter procedure [facility] Physician [facility] Work Phone: Start: 01-29-2024 Non-patient / Non-visit [facility] Physician [facility] Work Phone: Start: 01-16-2024 End: 01-16-2024 ambulatory [facility] Work Phone: Start: 01-16-2024 End: 01-16-2024 Patient encounter procedure [facility] Physician [facility] Work Phone: Start: 01-01-2024 Non-patient / Non-visit [facility] Physician [facility] Work Phone: Start: 10-23-2023 End: 10-25-2023 ambulatory JOHNNIE MICHAELSFLOYDDIANN [facility] Start: 10-06-2023 End: 10-06-2023 ambulatory [facility] Work Phone: Start: 10-06-2023 End: 10-06-2023 Patient encounter procedure [facility] Physician [facility] Work Phone: Start: 09-05-2023 End: 09-05-2023 [facility] Start: 09-05-2023 End: 09-05-2023 Subsequent hospital visit by physician Johnnie Hutton MD Work Phone: [facility] Start: 09-04-2023 Non-patient / Non-visit [facility] Physician [facility] Work Phone: Start: 09-03-2023 Non-patient / Non-visit [facility] Physician [facility] Work Phone: Start: 09-02-2023 Non-patient / Non-visit [facility] Work Phone: Start: 09-01-2023 End: 09-01-2023 Emergency department patient visit CHRISTOPHER BRYCE [facility] Start: 08-29-2023 End: 08-29-2023 [facility] Start: 08-28-2023 Non-patient / Non-visit [facility] Physician [facility] Work Phone: Start: 08-26-2023 Non-patient / Non-visit [facility] Work Phone: Start: 08-23-2023 End: 08-23-2023 ambulatory JOHNNIE HUTTON [facility] Start: 08-20-2023 Non-patient / Non-visit [facility] Physician [facility] Work Phone: Start: 08-08-2023 End: 08-08-2023 Patient encounter procedure [facility] Work Phone: Start: 07-21-2023 End: 07-21-2023 ambulatory Christopher Wu Other [employer] Other Start: 07-21-2023 Telephone encounter Christopher Bryce [facility] Start: 06-26-2023 End: 06-26-2023 ambulatory Christopher Bryce Other [employer] Other Start: 06-26-2023 Office outpatient vi sit 15 minutes Christopher Wu [facility] Start: 06-14-2023 End: 06-14-2023 ambulatory Christopher Bryce Other [employer] Other Start: 06-14-2023 Telephone encounter Christopher Ball [facility] Start: 05-25-2023 End: 05-25-2023 ambulatory Christopher Ball Other [employer] Other Start: 05-25-2023 Telephone encounter Christopher Ball [facility] Start: 05-24-2023 End: 05-24-2023 ambulatory Christopher Ball Other [employer] Other Start: 05-24-2023 Office outpatient vi sit 15 minutes Christopher Ball [facility] Start: 04-28-2023 End: 04-28-2023 ambulatory Christopher Ball Other [employer] Other Start: 04-28-2023 Telephone encounter Christopher Ball [facility] Start: 03-28-2023 End: 03-28-2023 ambulatory Christopher Ball Other [employer] Other Start: 03-28-2023 Telephone encounter Christopher Ball [facility] Start: 03-22-2023 End: 03-22-2023 ambulatory Christopher Ball Other [employer] Other Start: 03-22-2023 Telephone encounter Christopher Ball [facility] Start: 03-14-2023 End: 03-14-2023 ambulatory Christopher Ball Other [employer] Other Start: 03-14-2023 Office outpatient vi sit 25 minutes Christopher Ball [facility] Start: 02-28-2023 End: 02-28-2023 ambulatory Christopher Ball Other [employer] Other Start: 02-28-2023 Telephone encounter Christopher Ball [facility] Start: 12-22-2022 End: 12-22-2022 ambulatory Christopher Ball Other [employer] Other Start: 12-22-2022 Telephone encounter Christopher Ball [facility] Start: 12-21-2022 End: 12-21-2022 ambulatory Christopher Ball Other [employer] Other Start: 12-21-2022 Office outpatient vi sit 25 minutes Christopher Ball [facility] Start: 12-05-2022 End: 12-05-2022 ambulatory Christopher Ball Other [employer] Other Start: 12-05-2022 Office outpatient vi sit 15 minutes Christopher Ball [facility] Start: 11-26-2022 End: 11-26-2022 ambulatory Kacey Taylor Other [employer] Other Start: 11-26-2022 Office outpatient vi sit 15 minutes Kacey Vazquez [facility] Start: 10-11-2022 End: 10-11-2022 ambulatory Christopher Ball Other [employer] Other Start: 10-11-2022 Telephone encounter Christopher Ball [facility] Start: 10-10-2022 End: 10-10-2022 ambulatory Christopher Ball Other [employer] Other Start: 10-10-2022 Office outpatient vi sit 25 minutes Christopher Ball [facility] Start: 09-06-2022 End: 09-06-2022 ambulatory Christopher Ball Other [employer] Other Start: 09-06-2022 Telephone encounter Christopher Ball [facility] Start: 08-26-2022 End: 08-26-2022 ambulatory Christopher Ball Other [employer] Other Start: 08-26-2022 Telephone encounter Christopher Ball [facility] Start: 2022 End: 2022 ambulatory Christopher Ball Other [employer] Other Start: 2022 Telephone encounter [facility] Start: 08-19-2022 End: 08-20-[address] CHRISTOPHER WU Facility:[facility] Start: 08-19-2022 Telephone encounter [facility] Start: 08-18-2022 End: 08-18-2022 ambulatory Christopher Wu Other [employer] Other Start: 08-18-2022 Telephone encounter [facility] Start: 08-17-2022 End: 08-18-[address] CHRISTOPHER WU Facility:[facility] Start: 08-17-2022 Telephone encounter [facility] Start: 08-08-2022 End: 08-08-2022 ambulatory Christopher Wu Other [employer] Other Start: 08-08-2022 Office outpatient vi sit 25 minutes Christopher Wu [facility] Start: 03-15-2022 End: 03-16-[address] LINO Leyva Facility:[facility] Start: 01-25-2022 End: 01-25-2022 ambulatory LEYDI PEREYRA Facility:[facility] Start: 12-22-2021 Encounter for genera l adult medical examination without abnormal findings DR CHRISTOPHER WU [facility] Start: 12-21-2021 End: 12-22-[address] CHRISTOPHER WU Facility:[facility] Start: 12-21-2021 End: 12-22-2021 Encounter for general adult medical examination without abnormal findings DR CHRISTOPHER WU Facility:[facility] Start: 12-14-2021 Adult health examination Christopher Wu Other [employer] Other Start: 11-09-2021 End: 11-10-2021 ambulatory Lino Ansari Facility:[facility] Start: 11-09-2021 End: 11-09-2021 Patient encounter procedure Lino Ansari Jr. [facility] Start: 08-31-2021 End: 09-01-[address] CHRISTOPHER WU Facility:[facility] Start: 04-01-2021 End: 04-02-2021 ambulatory Lino Ansari Facility:[facility] Start: 03-25-2021 End: 03-25-2021 ambulatory Lino Ansari Facility:[facility] Start: 03-24-2021 End: 03-25-2021 ambulatory Lino Hamzah Elan Facility:[facility] Procedures Date Procedure Procedure Detail Performing Clinician Start: 04-25-2024 Radiologic exam abdo men 1 view Johnnie Hutton MD Work Phone: Start: 09-05-2023 Fluoroscopy during operation Johnnie Hutton MD Work Phone: Start: 09-05-2023 GLUCOSE, WHOLE BLOOD Th yunior Hutton MD Work Phone: Start: 09-03-2023 E coli Shiga Toxin EIA Start: 09-03-2023 Salmonella/Shigella Screen Start: 09-02-2023 Bacteria identified in Urine by Culture Start: 09-02-2023 Blood Culture 1 Start: 09-02-2023 Blood Culture 2 Start: 12-21-2021 PSA screening LEYDI JAIN Comment on above: Performed By: #### C MP, TSH #### [facility] [address] [place] [address] Dr. Cipriano Simon Start: 03-25-2021 Cystoscopy Lino tolbert Jr. Start: 09-26-2018 General examination of patient Christopher Wu Other Start: 10-16-2014 Removal of suture Matt anirudh Wu Other Start: 04-11-2008 Extracorporeal shock wave lithotripsy of calculus of kidney Lino Ansari Jr. Depression screening Marcoami n Bryce Other Insertion of hip prosthesis Lino Ansari Jr. Screening for malign ant neoplasm of colon Christopher Wu Other Screening for malign ant neoplasm of prostate Christopher Wu Other Plan of Treatment Date Care Activity Detail Author Start: 11-07-2024 End: 11-07-2024 Patient encounter procedure 11/07/2024 4:00 PM EDT Office Visit [facility] UROLOGY Part [address] [place] [address] Johnnie Hutton MD [address] [place] [address], [address] [place] [address] 6 month f/u KUB [facility] on above: 6 month f/u KUB Start: 06-27-2024 Screening for malign ant neoplasm of colon [facility] Start: 02-11-2024 COVID-19 Vaccine ( season) COVID-19 Vaccine ( season) [facility] Start: 01-11-2024 Influenza vaccination Flu vaccine (# 1) [facility] Start: 09-11-2023 End: 09-11-2023 Patient encounter procedure 09/11/2023 10:45 AM EDT Office Visit [facility] UROLOGY [address] [place] [address] Johnnie Hutton MD [address] [place] [address], [address] [place] [address] Stent Pull [facility] Comment on above: Stent Pull Start: 09-05-2023 End: 09-05-2023 Cysto/uretero w/lithotripsy &indwell stent insrt CYSTOSCOPY URETEROSCOPY LASER Ureteral calculus 09/05/2023 10:06 AM EDT [facility] Start: 02-10-2023 COVID-19 Vaccine ( season) COVID-19 Vaccine ( season) [facility] Start: 01-10-2023 Influenza vaccination Flu vaccine (# 1) [facility] Start: 2022 Respiratory Syncytia l Virus (RSV) or age 60 yrs+ (1 - 1-dose 60+ series) Respiratory Syncytial Virus (RSV) or age 60 yrs+ (1 - 1-dose 60+ series) [facility] Start: 2012 Shingles vaccine (1 of 2) Shingles vaccine (1 of 2) [facility] Start: 08-23-2007 Screening for malign ant neoplasm of colon [facility] Start: 2002 Lipid panel Lipids WHITE POST Neil [facility] Start: 1997 Diabetes screen Diabetes screen [facility] Start: 1981 DTaP/Tdap/Td vaccine (1 - Tdap) DTaP/Tdap/Td vaccine (1 - Tdap) [facility] Start: 1980 Hepatitis C screening Hepatitis C sc reen [facility] Start: 1977 HIV screening HIV screen [facility] Start: 1974 Depression Screen Depression Screen [facility] End: 09-05-2023 INITIATE PACU OXYGEN THERAPY PROTOCOL Initiate PACU Oxygen Therapy Protocol Respiratory Care Routine Continuous until discontinued starting 09/05/2023 [facility] Work Phone: Comment on above: Continuous until dis continued starting 09/05/2023 MRA Head vessels WO contrast [facility] Oxygen therapy [[facility] Data Set] Initiate Oxygen Therapy Protocol Respiratory Care Routine As Needed until discontinued starting 09/05/2023 [facility] Comment on above: As Needed until disc ontinued starting 09/05/2023 US.doppler Carotid arteries - bilateral [facility] Immunizations Immunization Date Immunization Notes Care Provider Jamar sanabria 09-08-2020 SARS-CoV-2 (COVID-19 ) Ad26 vaccine, recombinant Lino Ansari Jr. [facility] NEGATED: Highlighted row has not occurred!11-09-2021 influenza virus vaccine, unspecified formulation Lino Ansari Jr. [facility] Payers Date Payer Category Payer Unknown [id number] 2.16.8 [id number] 1960 Unknown [id number] 2.16.8 40.1.249017.3.579.2.727 1960 Unknown [id number] 2.16.8 40.1.400695.3.579.2.727 1960 Unknown [id number] 2.16.8 40.1.939862.3.579.2.727 1960 Unknown [id number] 2.16.8 40.1.640454.3.579.2.727 1960 Unknown [id number] 2.16.84 0.1.770287.3.579.2.593 1960 Unknown [id number] 2.16.84 0.1.766331.3.579.2.593 1960 Unknown [id number] 2.16.84 0.1.343689.3.579.2.593 1960 Unknown [id number] 2.16.84 0.1.014171.3.579.2.593 1960 Unknown [id number] 2.16.84 0.1.763287.3.579.2.593 1960 Unknown [id number] 2.16.84 0.1.616564.3.579.2.593 1960 Unknown [id number] 2.16.84 0.1.559270.3.579.2.593 1960 Unknown [id number] 2.16.8 40.1.796582.3.579.2.173 1960 Unknown [id number] 2.16.8 40.1.057025.3.579.2.173 1960 Unknown [id number] 2.16.8 40.1.267592.3.579.2.173 1960 Unknown [id number] 2.16.8 40.1.497093.3.579.2.173 1960 Unknown [id number] 2.16.8 40.1.507148.3.579.2.173 1960 Unknown [id number] 2.16.8 40.1.937851.3.579.2.173 1962 Unknown [id number] 2.16.8 40.1.552962.3.579.2.173 1962 Unknown [id number] 2.16.8 40.1.918571.3.579.2.173 1959 Unknown [id number] 1959 Unknown [id number] Self-pay Self Pay [id number] Unknown [id number] 2.16 .[id number] Social History Date Type Detail Facility Start: 11-09-2021 End: 08-23-2023 Never smoked tobacco (finding) [facility] Start: 09-05-2023 End: 04-25-2024 Male [facility] Start: 08-23-2023 Tobacco use and exposure Smokeless tobacco non-user [employer] Start: 09-05-2023 End: 04-25-2024 Alcohol intake Ex-drinker (finding) [employer] Start: 09-05-2023 End: 04-25-2024 History of Social function [employer] Start: 1960 Sex Assigned At Not on file B ON [employer] Start: 1960 Sex Assigned At Male F [facility] Read-Only, Retired: Physical Abuse Denies [employer] Start: 04-26-2024 Sex Male (finding) [facility] Medical Equipment Procedure Code Equipment Code Equipment Origin al Text Equipment Identifier Dates [id number] Start: 03-25-2021 Start: 09-06-2022 Stent Uret 6fr L 26cm Hydr+ Pgtl Tapr Tip Grad Bldr Mrk Lo - [id number] Start: 08-29-2023 Stent Uret 6fr L 26cm Hydr+ Pgtl Tapr Tip Grad Bldr k Apryl - [id number] Start: 09-05-2023 Blood Sugar Diagnostic (Freestyle Test) strip Start: 08-04-2023 Pen Needle, Diab etic (Comfort Ez Pen [place]) 31 gauge x 3/16 needle Start: 08-04-2023 Blood Sugar Diagnostic (Freestyle Test) strip Start: 11-21-2023 Pen Needle, Diab etic (Comfort Ez Pen [place]) 31 gauge x 3/16 needle Start: 08-04-2023 Blood Sugar Diagnostic (Freestyle Test) strip Start: 08-04-2023 End: 11-21-2023 Blood Sugar Diagnostic (Freestyle Test) strip Start: 11-21-2023 Pen Needle, Diab etic (Comfort Ez Pen [place]) 31 gauge x 3/16 needle Start: 08-04-2023 Blood Sugar Diagnostic (Freestyle Test) strip Start: 08-04-2023 End: 11-21-2023 Blood Sugar Diagnostic (Freestyle Test) strip Start: 11-21-2023 Pen Needle, Diab etic (Comfort Ez Pen [place]) 31 gauge x 3/16 needle Start: 08-04-2023 Blood Sugar Diagnostic (Freestyle Test) strip Start: 08-04-2023 End: 11-21-2023 Clinical Notes 12-30-2020 to 03-06-2024 Note Date & Type Note Facility 03-06-2024 Evaluation note Diagnosis Onset Date Resolution SHAYLA (generalized anxiety disorder) acute March 06, 2024 3:49pm Tachycardia acute February 3:49pm Type 2 diabetes mellitus with hyperglycemia acute February 3:49pm Facial pain deleted February 3:49pm Headache deleted February 3:49pm SHAYLA (generalized anxiety disorder) acute April 26, 2 024 2:41pm Gastroesophageal reflux disease with esophagitis without hemorrhage acute April 2:41pm Tachycardia acute April 2:41pm Type 2 diabetes mellitus with hyperglycemia acute April 2:41pm [facility] Work Phone: 1(948) 670-440803-26-2024 History of Present illness Narrative* Rissa Monroe RN - 09/05/2023 11:58 AM EDT Discharge Criteria Inpatients must meet Criteria 1 through 7. All other patients are either YES or N/A. If a NO is chosen then Anesthesia or Surgeon must be notified. 1. Minimum 30 minutes after last dose of sedative medication. Yes 2. Systolic BP between 90 - 160. Diastolic BP between 60 - 90. Yes 3. Pulse between 60 - 120 Yes 4. Respirations between 8 - 25. Yes 5. SpO2 92% - 100%. Yes 6. Able to cough and swallow or return to baseline function. Yes 7. Alert and oriented or return to baseline mental status. Yes 8. Demonstrates controlled, coordinated movements, ambulates with steady gait, or return to baseline activity function. Yes 9. Minimal or no pain or nausea, or at a level tolerable and acceptable to patient. Yes 10. Takes and retains oral fluids as allowed. Yes 11. Procedural / perioperative site stable. Minimal or no bleeding. Yes 12. If GI endoscopy procedure, minimal or no abdominal distention or passing flatus. N/A 13. Written discharge instructions and emergency telephone number provided. Yes 14. Accompanied by a responsible adult. Yes * Rissa Monroe RN - 09/05/2023 11:52 AM EDT Discharge instructions reviewed with pt and significant other Isa. All questions answered. Pt states that he is not yet ready to leave, he wants to sit for a few more minutes. Pt and family to opencurtain when they are ready to leave. * Annette Real RN - 09/05/2023 8:56 AM EDT FSBS 220 at this time. * Sandhya Issa RN - 08/30/2023 2:07 PM EDT Patient instructed on the pre-operative, intra-operative, and post-operative process. Patient instructed on NPO status. Medication instructions and pre operative instruction sheet reviewed with the patient. [facility] Discharge instructions* Discharge Instructions* Rissa Monroe RN - 09/05/2023 11:08 AM EDT SAME DAY SURGERY DISCHARGE INSTRUCTIONS 1. Do not drive or operate hazardous machinery for 24 hours. 2. Do not make important personal or business decisions for 24 hours. 3. Do not drink alcoholic beverages for 24 hours. 4. Do not smoke tobacco products for 24 hours. 5. Eat light foods (Jell-O, soups, etc....) and drink plenty of fluids (water, Sprite, etc...) up to 8 glasses per day, as you can tolerate. 6. Limit your activities for 24 hours. Do not engage in heavy work until your surgeon gives you permission. 7. Patient should not be left alone for 12-24 hours following surgical procedure. 8. Wash hands before and after incision care. It is important to practice good personal hygiene during the post op period. 9. Call your surgeon for any questions regarding your surgery. CYSTOSCOPY DISCHARGE INSTRUCTIONS Possible burning during urination and/or blood tinged urine. Drink 6-8 glasses of water for the next day or so. (This helps to flush the urinary tract.) Call Dr. Hutton ([phone]) if you develop: Fever over 100 degrees Prolonged soreness/pain Unusual bleeding/bruising Unable to urinate or if urine is bloody You cannot pass urine 8 hours after the test. You have pain in your belly or your back just below your rib cage. (This is called flank pain.) You have frequent urge to urinate but can pass only small amounts of urine. Call Dr. Hutton office for follow-up appointment ([phone]). [facility] Evaluation note* Encounter Date Diagnosis Assessment Notes Treatment Notes Treatment Clinical Notes Jun, Acute pain of left shoulder [...] Microalbumin, Dilated eye exam and Foot exam [facility] Other 12-13-2023 Evaluation note* Encounter Date Diagnosis [...] improved FBS BS have increased w/ illness [facility] Other 10-17-2023 Evaluation note* Encounter Date Diagnosis Assessment Notes Treatment Notes Treatment Clinical Notes Mar, Type 2 diabetes mellitus with hyperglycemia (ICD-10 - E11.65) [facility] Other 10-11-2023 Evaluation note* Encounter Date Diagnosis Assessment Notes Treatment Notes Treatment Clinical Notes Mar, Type 2 diabetes mellitus with hyperglycemia (ICD-10 - E11.65) 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 [facility] Other 07-13-2023 Evaluation note* Encounter Date Diagnosis Assessment Notes Treatment Notes Treatment Clinical Notes Dec, Type 2 diabetes mellitus with hyperglycemia, without long-term current use of insulin (ICD-10 - E11.65) [facility] Other 07-12-2023 Evaluation note* Encounter Date Diagnosis [...] Avoid stimulants, hydrate and no medication changes [facility] Other 06-26-2023 Evaluation note* Encounter Date Diagnosis [...] of infection. Monitor for now. Push fluids [facility] Other 06-17-2023 Evaluation note* Encounter Date Diagnosis [...] to 7 days, sooner if significantly worsening. [facility] Other 05-01-2023 Evaluation note* Encounter Date Diagnosis [...] They may safely use Tylenol as needed. [facility] Other 03-13-2023 Evaluation note* Encounter Date Diagnosis Assessment Notes Treatment Notes Treatment Clinical Notes Aug, Type 2 diabetes mellitus with hyperglycemia, without long-term current use of insulin (ICD-10 - E11.65) [facility] Other 03-10-2023 Evaluation note* Encounter Date Diagnosis Assessment Notes Treatment Notes Treatment Clinical Notes Aug, Type 2 diabetes mellitus with hyperglycemia, without long-term current use of insulin (ICD-10 - E11.65) Aug, Anemia, unspecified type (ICD-10 - D64.9) [facility] Other 03-09-2023 Evaluation note* Encounter Date Diagnosis Assessment Notes Treatment Notes Treatment Clinical Notes Aug, Type 2 diabetes mellitus with hyperglycemia, without long-term current use of insulin (ICD-10 - E11.65) [facility] Other 03-08-2023 Evaluation note* Encounter Date Diagnosis Assessment Notes Treatment Notes Treatment Clinical Notes Aug, Type 2 diabetes mellitus with hyperglycemia, without long-term current use of insulin (ICD-10 - E11.65) [facility] Other 02-27-2023 Evaluation note* Encounter Date Diagnosis [...] (ICD-10 - R25.2) Reassure, check Joellen Montalvo [facility] Other 05-31-2022 Hospital Discharge instructions Patient Education 11/09/2021 09:45:52 Kidney Stones, Ctlk-gb-Gqby Kidney Stones Kidney stones are rock-like masses [...] Follow these instructions at home: Medicines Take jatk-wob-vkppqzj and prescription medicines only as told by [...] 11/14/2008 Document Revised: 10/15/2019 Document Reviewed: 10/15/2019 [employer] Patient Education 2019 Ante [employer]. Follow Up Care 04/01/2021 14:51:08 With:Elan Peterson MD, Lino Goodson, URO Address: [facility] [address] , [place] [address]- When:05/12/2022 Comments:w/nancy [facility] 10-26-2021 Note [id number]:127[facility] 04-01-2021 NoteCystoscopy with Stent Removal [...] if you have a fever over 100 degrees.[facility] 03-24-2021 [id number]:127[facility]07-21-2021 Hospital Progress notePatient: RIC BERRY Age: 60 years Sex: Male : 1960 Associated Diagnoses: None Author: Marco Alvarado MD Assessment Assessment Diagnosis: Osteoarthritis of left hip (RZA50-BU M16.12, Working, 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 Plan A medical consult [...] Radiology Report for More Detail Diagnosis Documentation Communication[facility] Anesthesiology Preoperative evaluation and management notePatient: RIC BERRY MRN: [facility][id number] Age: 60 years Sex: Male : 1960 [...] 12/29/20 10:44:27 by Mart BAUM , Chelsey R Drain Medications: cyanocobalamin = 1 Tab, PO, Daily,, [...] thou/mcL 12/16/20 10:32, Lymphocyt (more content not included)...[facility] System[facility] + Plan note No data available for this section [facility] evaluation noteNo [facility] [employer] Other Evaluation note* Diagnosis Ureteral calculus- Primary Calculus of ureter Renal calculus Calculus of kidney documented in this encounter [facility] note* Diagnosis Onset Date Resolution Status SHAYLA (generalized anxiety disorder) acute Gastroesophageal reflux dise ase with esophagitis without hemorrhage acute Lumbosacral spondylosis acut e Obesity acute Rotator cuff tear acute Type 2 diabetes mellitus with hyperglycemia acute SHAYLA (generalized anxiety disorder) acute Obesity acute Type 2 diabetes mellitus with hyperglycemia acute [facility] Work Phone: Evaluation note* Diagnosis Onset Date Resolution Status Type 2 diabetes mellitus with hyperglycemia acute [facility] Work Phone: Evaluation note* Diagnosis Onset Date Resolution Status Facial pain acute SHAYLA (generalized anxiety disorder) acute Headache acute Overweight acute Tingling of right upper extremity acute Type 2 diabetes mellitus with hyperglycemia acute TIA (transient ischemic attack) noneactive SHAYLA (generalized anxiety disorder) acute Headache acute Type 2 diabetes mellitus with hyperglycemia acute [facility] Work Phone: Evaluation note* Diagnosis Ureteral calculus Calculus of ureter Renal calculus Calculus of kidney documented in this encounter [facility] Narrative - Reported* Type Description Date Medical History Anxiety Medical History diabetes mallitus Medical History left hip pain Surgical History kidney stone Hospitalization History see above [facility] Other History general Narrative - Reported* Type Description Date Medical History Anxiety Medical History diabetes mallitus Medical History left hip pain Surgical History kidney stone Surgical History Left hip replacement Hospitalization History see above [facility] Other Reason for referral (narrative)* Reason Referral for rotator cuff tear Diagnosis 1 Acute pain of left s houlder (M25.512) Diagnosis 2 Nontraumatic incompl ete tear of rotator cuff, unspecified laterality (M75.110) Referral Organization [facility] Referring Provider First Name Christopher Referring Provider Last Name Bryce Referring Provider Specialty Internal Me dicine Referred Organization [facility] Referred Provider Alfredo Vazquez Referred Address [address], [place],[address] Referred Provider Specialty Orthopedic S urgery Referral Priority Routine General Notes Mr. Berry is being re ferred for further evaluation and treatment of a rotator cuff tear. Clinical Notes MRI completed [facility] Other Summary Purpose Family History No Family History Records Found Relationship Condition Age at Onset Recorded Date/T andria father Unknown Advance Directives No Advanced Directives Records FoundLatest Code Status on File Code Status Date Activated Date Inactivated Comments Full Code 09/05/2023 8:29 AM Code Status History Code Status Date Activated Date Inactivated Comments Full Code 08/29/2023 10:33 AM 08/29/2023 5:38 PM Advance Directive Response Recorded Date/ Time Advance Directives No July 13, 2020 5:54pm Date Activated Date Inactivated Comments 09/05/2023 8:29 AM 09/05/2023 2:15 PM Date Activated Date Inactivated Comments 08/29/2023 10:33 AM 08/29/2023 5:38 PM Advance Directive Response Recorded Date/ Time Advance Directives No July 13, 2020 4:54pm Procedure Findings Note Patient: RIC BERRY Age: 60 years Sex: [...] Plan: Postanesthesia Plan: post anesthetic surveillance concluded. Chief Complaint and Reason for Visit Chief Complaint 3 MONTH CHECK UP BS check up Reason for Visit SHAYLA (generalized anx iety disorder) Gastroesophageal reflux disease with esophagitis without hemorrhage Lumbosacral spondylosis Obesity Rotator cuff tear Type 2 diabetes mellitus with hyperglycemia SHAYLA (generalized anxiety disorder) Obesity Type 2 diabetes mellitus with hyperglycemia Chief Complaint possible hemorrhoid Reason for Visit Type 2 diabetes berta itus with hyperglycemia Chief Complaint possible hemorrhoid head pain Reason for Visit Facial pain SHAYLA (generalized anxiety disorder) Headache Overweight Tingling of right upper extremity Type 2 diabetes mellitus with hyperglycemia TIA (transient ischemic attack) SHAYLA (generalized anxiety disorder) Headache Type 2 diabetes mellitus with hyperglycemia Chief Complaint Admit Date head pain March 06, 2024 3:49pm CC Adult Risk Stratification April 242023 11:11am increased anxiety April 26, 2024 2:41pm Reason for Visit Admit Date SHAYLA (generalized anxiety disorder) Deb vela2023 3:49pm Tachycardia March 06, 2024 3:49pm Type 2 diabetes mellitus with hyperglyce clarence March 06, 2024 3:49pm Facial pain March 06, 2024 3:49pm Headache March 06, 2024 3:49pm SHAYLA (generalized anxiety disorder) Novem 2023 2:41pm Gastroesophageal reflux dise ase with esophagitis without hemorrhage April 26, 2024 2:41pm Tachycardia April 26, 2024 2:41pm Type 2 diabetes mellitus with hyperglyce clarence April 26, 2024 2:41pm Additional Source Comments (unrecognized sect ion and content) No Status Records FoundNo Status Records FoundNo Status Records FoundNo Status Records Found INFORMATION SOURCE (unrecogn ized section and content) DATE CREATED AUTHOR 03/01/2021 [facility] DATE CREATED AUTHOR AUTHOR'S ORGANIZ ATION 03/17/2022 [facility] DATE CREATED AUTHOR AUTHOR'S ORGANIZ ATION 08/24/2022 [facility] [place] [facility] DATE CREATED AUTHOR AUTHOR'S ORGANIZ ATION 04/28/2024 [facility] REASON FOR VISIT (unrecogniz ed section and content) Specialty Diagnoses / Procedures Referred By Karolina zimmerman Referred To Contact Diagnoses Ureteral calculus Ureteral calculus [N20.1] Procedures PA CYSTO/URETERO W/LITHOTRIPSY &INDWELL STENT INSRT CYSTOSCOPY URETEROSCOPY LASER-HLL WITH POSSIBLE LEFT URETERAL STENT EXCHANGE Johnnie Hutton MD [address] [place] [address], [address] [place] [address] [facility] [address] [place] [address] Referral ID Status Reason Start Date Expiration Date Visits Re quested Visits Authorized [id number] 1 1 Scheduled Active and Recently Administ ered Medications (unrecognized section and content) Medication Order 09/03/2023 09/04/2023 09/05/2023 acetaminophen (TYLENOL) tablet 650 mg (COMPLETED) 650 mg, Oral, ONCE, 1 dose, On Mon09/05/23 at 0845, Maximum dose of acetaminophen is 4000 mg from all sources in 24 hours., Pre-op (day of surgery) 0852 (Given - Provid er: Annette Real RN) dimenhyDRINATE (DRAMAMINE) tablet 50 mg (COMPLETED) 50 mg, Oral, ONCE, 1 dose, On Mon09/05/23 at 0845, Pre-op (day of surgery) 0852 (Given - Provid er: Annette Real RN) levoFLOXacin (LEVAQUIN) 500 MG/100ML infusion 500 mg (COMPLETED) 500 mg, IntraVENous, 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., 1 dose, On Mon09/05/23 at 0845, Antimicrobial Indications: Surgical Prophylaxis, Administer within 1 hour prior to incision., Pre-op (day of surgery) 1005 (New Bag - Prov ider: Rae Saunders RN)1056 (Stopped - Provider: Rissa Monroe RN) Continuous Medication Order 09/03/2023 09/04/2023 09/05/2023 lactated ringers IV soln infusion IntraVENous, at 100 mL/hr, CONTINUOUS, Starting on Mon09/05/23 at 0845, Pre-op (day of surgery) 0853 (New Bag - Prov ider: Annette Real RN)1006 (NoRateChange - Provider: YANELI Manuel CRNA)1053 (Paused - Provider: YANELI Manuel CRNA - Comment: Switch to gravity)1054 (Restarted - Provider: YANELI Manuel CRNA) lactated ringers IV soln infusion IntraVENous, at 125 mL/hr, CONTINUOUS, Starting on Mon09/05/23 at 1115, PACU only 1115 (Due) PRN Medication Order 09/03/2023 09/04/2023 09/05/2023 HYDROcodone-acetaminophen (NORCO) 5-325 MG per tablet 1 tablet(Linked Group 1) 1 tablet, Oral, ONCE PRN, 1 dose, Starting on Mon09/05/23 at 1059, Until Mon09/06/23 at 1059, Pain Moderate (4-6), Maximum dose of acetaminophen is 4000 mg from all sources in 24 hours., PACU only HYDROcodone-acetaminophen (NORCO) 5-325 MG per tablet 2 tablet(Linked Group 1) 2 tablet, Oral, ONCE PRN, 1 dose, Starting on Mon09/05/23 at 1059, Until Mon09/06/23 at 1059, Pain Severe (7-10), Maximum dose of acetaminophen is 4000 mg from all sources in 24 hours., PACU only lidocaine (XYLOCAINE) 2 % uro-jet (CANCELED) PRN, Starting on Mon09/05/23 at 1025, Intra-op 1025 (Given - Provid er: Johnnie Hutton MD) naloxone 0.4 mg in 10 mL sodium chloride syringe IntraVENous, PRN, Opioid Reversal, Starting on Mon09/05/23 at 1059, PRN if respiratory rate is less than 6/min and patient is difficult to arouse then notify physician STAT. Mix 9 mL of sodium chloride 0.9% with 0.4 mg (1 mL) of naloxone (NARCAN) in 10 mL syringe. (Note: dilution is 0.04 mg/mL) Give 0.08 mg (2 mL of special dilution), slow IV push, repeat up to 0.4 mg (10 mL) or until patient is responsive to physical stimulation and respiratory rate is equal to or greater than 6 breaths/min. Continue to observe, if no response within 3 minutes of administration of 0.4 mg (10 mL) total, repeat dose (0.4 mg as administered previously). Concentration 0.04 mg/mL, PACU only ondansetron (ZOFRAN) injection 4 mg 4 mg, IntraVENous, ONCE PRN, 1 dose, Starting on Mon09/05/23 at 1059, Until Mon09/06/23 at 1059, Nausea, Initial antiemetic therapy., PACU only Linked Groups Order Group 1: HYDROcodone-acetaminophen (NORCO) 5-325 MG per tablet 1 tabletJump to med 1 tablet, Oral, ONCE PRN, 1 dose, Starting on Mon09/05/23 at 1059, Until Mon09/06/23 at 1059, Pain Moderate (4-6)
Maximum dose of acetaminophen is 4000 mg from all sources in 24 hours.
PACU only Or HYDROcodone-acetaminophen (NORCO) 5-325 MG per tablet 2 tabletJump to med 2 tablet, Oral, ONCE PRN, 1 dose, Starting on Mon09/05/23 at 1059, Until Mon09/06/23 at 1059, Pain Severe (7-10)
Maximum dose of acetaminophen is 4000 mg from all sources in 24 hours.
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 Start Date End Date Bryce ChristopherDO [address] [place] [address] PCP - General Internal Medicine 08/23/23 Team Status: Inactive Member Role Status Dates Christopher Wu DO Primary Care Provide r, Attending Provider Active Start: August 08, 2023 End: August 08, 2023 Team Status: Active Member Role Status Dates Christopher Wu DO Primary Care Provide r, Attending Provider Active Start: August 20, 2023 Team Status: Active Member Role Status Dates Christopher Wu DO Primary Care Provide r, Attending Provider Active Start: August 26, 2023 Team Status: Active Member Role Status Dates Christopher Wu DO Primary Care Provide r, Attending Provider Active Start: August 28, 2023 Team Status: Active Member Role Status Dates Christopher Wu DO Primary Care Provide r, Attending Provider Active Start: September 02, 2023 Team Status: Active Member Role Status Dates Christopher Wu DO Primary Care Provide r, Attending Provider Active Start: September 03, 2023 Team Status: Active Member Role Status Dates Christopher Wu DO Primary Care Provide r, Attending Provider Active Start: September 04, 2023 Team Status: Inactive Member Role Status Bernice Wu DO Primary Care Provide r, Attending Provider Active Start: October 06, 2023 End: October 06, 2023 Team Status: Active Member Role Status Dates Christopher Wu DO Primary Care Provide r, Attending Provider Active Start: January 29, 2024 Team Status: Inactive Member Role Status Dates Christopher Wu DO Primary Care Provide r, Attending Provider Active Start: March 06, 2024 End: March 06, 2024 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[employer] [place] Relationship Specialty Start Date End Date Christopher Wu DO [address] [place] [place] [address] PCP - General Internal Medicine 08/23/23 Team Status: Active Member Role Status Dates Christopher Wu DO Primary Care Provide r, Attending Provider Active Start: April 24, 2024 Team Status: Inactive Member Role Status Dates Christopher Wu DO Primary Care Provide r, Attending Provider Active Start: April 26, 2024 End: April 26, 2024 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 [employer] provides no warranty or guarantee of the accuracy or completeness of information in this document.
[2024-05-08 15:07] LABS: Erythrocyte Sedimentation Rate 5 mm/hr (<=20)
[2024-05-08 15:18] LABS: Estimated Average Glucose 146 mg/dL; Glycohemoglobin A1C 6.7 % (4.5-6.2)
[2024-05-08 15:22] LABS: C Reactive Protein <0.50 mg/dL (<=0.50)
== END 2024-05-08 14:52 | disposition home or self-care (01) ==
LOC: LAB 14:52
PROVIDERS: PCP Internal Medicine; Visit Provider Internal Medicine
DX: R51.9 Headache, unspecified (principal); E11.65 Type 2 diabetes mellitus with hyperglycemia; Z79.4 Long term (current) use of insulin
CPT/HCPCS: 36415; 83036; 85652; 86140

== ENCOUNTER 2024-10-11 06:53 | Outpatient (OUT) | payer OTHER, SELFPAY ==
[2024-10-11 07:45] LABS: Creatinine Urine Random 93.21 mg/dL (20.00-300.00); Microalbumin Urine Random <1.3 mg/dL (<=30.0)
[2024-10-11 07:51] LABS: Basophils Percent Auto 0.4 % (0.2-2.0); Eosinophils Absolute Auto 0.1 10^3/uL (0.0-0.7); Eosinophils Percent Auto 2.5 % (0.9-7.0); Hematocrit 47.1 % (42.0-54.0); Hemoglobin 16.1 g/dL (14.0-18.0); Immature Granulocytes Abs Auto 0.02 10^3/uL (0.00-0.03); Immature Granulocytes Pct Auto 0.4 % (0.0-0.5); Lymphocytes Absolute Auto 2.4 10^3/uL (1.2-3.8); Lymphocytes Percent Auto 49.2 % (20.5-60.0); Mean Corpuscular HGB Conc 34.2 g/dL (29.9-35.2); Mean Corpuscular Hemoglobin 29.2 pg (25.9-34.0); Mean Corpuscular Volume 85.5 fL (80.0-94.0); Mean Platelet Volume 9.8 fL (9.5-13.5); Monocytes Absolute Auto 0.4 10^3/uL (0.3-0.8); Monocytes Percent Auto 7.4 % (1.7-12.0); Neutrophils Absolute Auto 1.9 10^3/uL (1.4-6.5); Neutrophils Percent Auto 40.1 % (43.0-75.0); Platelet Count 245 10^3/uL (150-450); Red Blood Count 5.51 10^6/uL (4.70-6.10); Red Cell Distribution Width 13.1 % (11.0-15.0); White Blood Count 4.8 10^3/uL (4.0-11.0)
[2024-10-11 08:44] LABS: Alanine Aminotransferase 50 U/L (16-63); Albumin Level 3.8 g/dL (3.4-5.0); Alkaline Phosphatase 107 U/L (46-116); Aspartate Amino Transferase 20 U/L (15-37); BUN Creatinine Ratio 13.2; Bilirubin Total 1.1 mg/dL (0.2-1.0); C Reactive Protein <0.50 mg/dL (<=0.50); Calcium 8.9 mg/dL (8.5-10.1); Carbon Dioxide 24.5 mmol/L (21.0-32.0); Chol HDL Ratio 4.4; Cholesterol 193 mg/dL (<=200); Estimated GFR (African America >60 (>=60 mL/min/1.73m^2); Estimated GFR (Non-African Ame >60 (>=60 mL/min/1.73m^2); Globulin 3.7 g/dL; Glucose 148 mg/dL (74-106); HDL Cholesterol 44 mg/dL (40-60); Total Protein 7.5 g/dL (6.4-8.2); Triglycerides 247 mg/dL (<=150); VLDL CHOLESTEROL 49.4 mg/dL
[2024-10-11 09:00] LABS: Anion Gap 17.4; Chloride 103 mmol/L (98-107); Potassium 3.9 mmol/L (3.5-5.1); Sodium 141 mmol/L (136-145)
[2024-10-11 09:04] LABS: Prostate Specific Antigen Scrn 0.48 ng/mL (<=4.00)
[2024-10-11 14:32] LABS: Erythrocyte Sedimentation Rate 14 mm/hr (<=20)
[2024-10-14 12:09] LABS: ANA Direct Negative (Negative)
== END 2024-10-11 06:54 | disposition home or self-care (01) ==
LOC: LAB 06:55
PROVIDERS: PCP Internal Medicine; Visit Provider Internal Medicine
DX: Z00.00 Encounter for general adult medical examination without abnormal findings (principal); Z12.5 Encounter for screening for malignant neoplasm of prostate; M06.4 Inflammatory polyarthropathy
CPT/HCPCS: 36415; 80053; 80061; 82043; 82570; 85025; 85652; 86038; 86140; G0103

== ENCOUNTER 2025-04-02 12:00 | Outpatient (OUT) | payer OTHER, SELFPAY ==
--- OUTSIDE RECORDS SUMMARY | 2025-04-02 07:46 | XMS_ITS | Continuity of Care Document ---
Author Organization [facility] Address [address] [place] [address] Phone Care Team Providers Care Information Security Name Role Phone Ramses Christopher ROSA Primary Care Provider Christopher Pearce DO Attending Provider Care Teams Patient Care Team Team Status: Active Member Role/Relationship Status Dates Christopher Pearce DO Primary Care Provider Active Visit Care Team Team Status: Inactive Member Role/Relationship Status Dates Christopher Pearce DO Primary Care Provider Active Start: January 23, 2025 End: January 23Kathy Willams ProviderActiveStart: January 23, 2025 End: January 23, 2025 Patient Care Team Team Status: Inactive Member Role/Relationship Status Dates Christopher Pearce DO Primary Care Provider Active Start: April 02, 2025 End: April 02Kathy Willams ProviderActiveStart: April 02, 2025 End: April 02, 2025 Chief Complaint and Reason for Visit Chief Complaint Admit Date Anxiety January 23, 2025 9: 58am Back Pain April 02, 2025 1 0:27am Reason for Visit Admit Date SHAYLA (generalized anxiety disorder) Augus t 2024 9:58am Lumbosacral spondylosis January 23 9:58am Obesity January 23, 2025 9: 58am Type 2 diabetes mellitus with hyperglyce clarence January 23, 2025 9:58am SHAYLA (generalized anxiety disorder) Octob er 2024 10:27am Low back pain April 02, 2025 1 0:27am Lumbosacral spondylosis April 02 10:27am Type 2 diabetes mellitus with hyperglyce clarence April 02, 2025 10:27am Allergies, Adverse Reactions, Alerts Allergen Type Severity Reaction Last Updated Verified Status azithromycin Allergy Unknown Unknown Reaction Octobe r 2024 10:46am Yes Active ciprofloxacin Allergy Unknown Unknown Reaction Octob er 2024 10:46am Yes Active iodine Allergy Unknown Unknown Reaction April 02, 2025 10:46am Yes Active sulfamethoxazole Allergy Unknown Unknown Reaction Oc tober 2024 10:46am Yes Active trimethoprim Allergy Unknown Unknown Reaction Octobe r 2024 10:46am Yes Active Social History Smoking Status Status Start Date End Date Date of Observa tion Never smoked tobacco (finding) June 07, 2014 4:50pm Observation Status Observation Response Date of Response Legal Sex [facility] ([facility]) [facility] Family History Relationship Condition Age at Onset Recorded Date/T andria father Unknown Problems Active Problems Problem Diagnosis/Recorded Date Onset Date Status C omments Hydronephrosis October 15, 2024 9:29pm Unknown Active Gastroesophageal reflux disease with esophagitis without hemorrhageFebruary 2023 3:57pmUnknownActiveMetabolic dysfunction-associated steatotic liver disease (MASLD)October 21, 2024 1:56pmUnknownActiveGAD (generalized anxiety disorder)August 04, 2023 3:57pmUnknownActiveScreening PSA (prostate specific antigen)October 05, 2024 4:40pmUnknownActivePSA: 0.48 - 5/2024Type 2 diabetes mellitus with hyperglycemiaFebruary 2023 1:05pmUnknownActiveLow back pain December 31, 2024 5:30pmUnknownActiveWellness examinationApril 2024 4:38pm UnknownActiveNephrolithiasisMarch 2023 3:38pmUnknownActiveLumbosacral spondylosisFebruary 2023 3:57pmUnknownActiveBilateral leg painJuly 2024 5:32pmUnknownActiveNeck painJuly 2024 5:39pmUnknownActiveLumbar spondylosisJuly 2024 5:32pmUnknownActiveObesityAugust 2024 8:28pm UnknownActiveRotator cuff tearFebruary 2023 1:06pmUnknownActive Medications Medication Status Dose Units Route Directions Qty Days Refills S tart Date Stop Date End Date Reason(s) Instructions Adherence Doxycycline Hyclate 100 mg capsule Discontinued 100 MG PO Twice daily 14 7 0 August 30, 2023 12:00am October 04, 2023 7:57pmInsulin Glargine-Yfgn (Semglee(Insulin Glarg-Yfgn)Pen) 100 unit/mL (3 mL) insulin dwzEahadknisleg29HYUSDPMEYGRhebx6536Uuzpq 2023 12:00amApril 2023 2:37pmMetformin 1,000 mg tabletDiscontinued0.ROUTE .DCNKRBA0760Psf 2023 8:34amJuly 2023 3:34pmTAKE 1 TABLET BY MOUTH ONCE PER DAY WITH A MEAL FOR 30 DAYSBlood Sugar Diagnostic (Freestyle Test) stripDiscontinued0.Vrfbz88944Jfbs 2023 6:09pmJuly 2024 6:06pmType 2 diabetes mellitus with hyperglycemia Type 2 diabetes mellitus with hyperglycemia half-way (current) use of insulinUse to test home BS qidAlprazolam 0.5 mg tabletDiscontinued0.5MGPOFour times daily as needed for ohucwbd953616Pfkz 2023 11:21amNoveer 2023 10:37pmGeneralized anxiety disorder Generalized anxiety disorderInsulin Detemir U-100 (Levemir Flexpen) 100 unit/mL (3 mL) insulin zknPghunjtzyzty52TZRTICFMQHZnejy ryrii47076Icfu 19th, 2024 12:00amJune 2023 2:57pmInsulin Glargine-Yfgn (Semglee(Insulin Glarg- Yfgn)Pen) 100 unit/mL (3 mL) insulin vkpTvtktvfdmbyf62YTDOMTCMAPIpkhn01038Hfzj 2023 12:00amJune 2023 2:57pmInsulin Glargine-Yfgn (Semglee(Insulin Glarg-Yfgn)Pen) 100 unit/mL (3 mL) insulin lbsPuquxzcasdsm93LBKFERUUAOUqlbt daily39.6903June 2023 2:56pmNovember 2023 4:03pmInsulin Glargine (Basaglar Kwikpen U-100 Insulin) 100 unit/mL (3 mL) insulin dywOahzhgyjkzou92 UNITSUBCUTTwice iugyk46578Rlkedjvxf 4th, 2024 10:51amSeptember 2023 6:57pm Insulin Glargine (Basaglar Kwikpen U-100 Insulin) 100 unit/mL (3 mL) insulin pen Qkxlmpgommqp27BMSFOWLOWRXhrgz ytvhw09618Gicbaowak 8th, 2024 6:55pmDecember 2023 2:15pmType 2 diabetes mellitus with hyperglycemia Type 2 diabetes mellitus with hyperglycemia terminal press operator (current) use of insulinAlprazolam 0.5 mg tabletDiscontinued0.5MGPO Four times daily as needed for kdqndie681784Ytatjmyn 4th, 2024 10:37pmApril 2024 5:50pmGeneralized anxiety disorder Generalized anxiety disorderPen Needle, Diabetic (Bd Ultra-Fine Micro Pen Needle) 32 gauge x 1/4 needleDiscontinued0.ROUTE.OVTVUAU97123Azpqwdzb 9th, 2024 5:56pmDecember 2023 10:53amType 2 diabetes mellitus with hyperglycemia Type 2 diabetes mellitus with hyperglycemia half-way (current) use of insulinUSE TO INJECT INSULIN EVERY DAYInsulin Glargine (Basaglar Kwikpen U-100 Insulin) 100 unit/mL (3 mL) insulin pen Dptrouqhwgwk97LUGKAHNMYQDhkaj ypubi56701Izsqyjgu 2023 2:15pmDecember 2023 3:52pmType 2 diabetes mellitus with hyperglycemia Type 2 diabetes mellitus with hyperglycemia terminal press operator (current) use of insulinPen Needle, Diabetic (Bd Ultra-Fine Micro Pen Needle) 32 gauge x 1/4 needleDiscontinued0.Gzhfe9027Maltlvks 2023 1:00am August 26, 2024 6:22pmCheck blood sugar up to 3 times per dayAs directedInsulin Glargine (Basaglar Kwikpen U-100 Insulin) 100 unit/mL (3 mL) insulin pen Vedthkgurbwf20HKOXWFMJHNOmjdn mrujh41700Sfvcljqu 2023 3:51pmApril 2024 5:44pmType 2 diabetes mellitus with hyperglycemia Type 2 diabetes mellitus with hyperglycemia terminal press operator (current) use of insulinDiclofenac Sodium 75 mg tablet,delayed release (DR/EC)Discontinued0.ROUTE.DETFDSC908Lynnaggr 2023 3:35pmJuly 2024 3:59pmTAKE 1 TABLET ORALLY TWICE DAILY NEEDED FOR PAIN FOR 15 DAYSGlimepiride 1 mg tabletDiscontinued0.ROUTE.MKLUXCT226Dfkdbin 2024 8:41amMarch 2024 10:52amTAKE 1 TABLET BY MOUTH DAILYGlimepiride 1 mg tabletDiscontinued0 .ROUTE.MWRTXGD439Ozcst 2024 10:52amJune 2024 1:43pmTAKE 1 TABLET BY MOUTH DAILYPen Needle, Diabetic (Bd Venita 2nd Gen Pen Needle) 32 gauge x 5/32 needleActive0.ROUTE.RPQBFIF3512Htgcg 2024 6:21pmType 2 diabetes mellitus with hyperglycemia Type 2 diabetes mellitus with hyperglycemia half-way (current) use of insulinUSE TO CHECK BLOOD SUGAR UP TO 3 TIMES PER DAY DIRECTEDAlprazolam 0.5 mg tabletActive0.5MGPOFour times daily as needed for ymlqono383608Ookkx 2024 5:49pmGeneralized anxiety disorder Generalized anxiety disorderComplies with drug therapyInsulin Glargine (Basaglar Kwikpen U-100 Insulin) 100 unit/mL (3 mL) insulin hjjTbyieg83BBTXYGIEYISbshl unzdb68708Gfrgt 2024 5:43pmType 2 diabetes mellitus with hyperglycemia Type 2 diabetes mellitus with hyperglycemia terminal press operator (current) use of insulinComplies with drug therapyGlimepiride 1 mg tabletActive0.ROUTE.ODYNSNU480Rfvk 2024 1:43pmTAKE 1 TABLET BY MOUTH DAILY Complies with drug therapyBlood Sugar Diagnostic (Freestyle Lite Strips) strip Active0.ROUTE.SZLOGPU75412Wasn 2024 6:06pmType 2 diabetes mellitus with hyperglycemia Type 2 diabetes mellitus with hyperglycemia terminal press operator (current) use of insulinUSE TO TEST HOME BLOOD SUGAR 4 TIMES A DAY Alprazolam 0.5 mg tabletDiscontinued0.5MGPOFour times daily as neededFebruary 2023 1:00amJune 2023 11:22amInsulin Glargine (Basaglar Kwikpen U-100 Insulin) 100 unit/mL (3 mL) insulin nncUabxazdlhtng32JVRWUDLXJZDzfauXiobgfgm 2023 1:00amMarch 2023 12:36pmBlood Sugar Diagnostic (Freestyle Test) stripDiscontinued0.RouteFebruary 2023 1:00amJune 2023 6:10pmAs directedGlimepiride 2 mg bhmryxUdwjaenhhfrm5OMNNEcoyrVpikyyub 2023 1:00am April 26, 2024 4:35pmMetformin 1,000 mg pccoplQsmqvnsbpkak6872AYQYLaspp August 04, 2023 1:00amMay 2023 8:34amPen Needle, Diabetic (Comfort Ez Pen [place]) 31 gauge x 3/16 needleDiscontinued0.RouteFebruary 2023 1:00amDecember 2023 5:57pmAs directedAmoxicillin-Pot Clavulanate 875-125 mg utoyexKoncdtyhcyvl9PMEJCMgoom 12 slbwg3886Gbkaeiri 2023 1:00amApril 2023 7:57pmInsulin Glargine-Yfgn (Semglee(Insulin Glarg-Yfgn)Pen) 100 unit/mL (3 mL) insulin ekhKzweplgojlgk22ROZCGHDTORHkbih dailyApril 2023 2:36pmJune 2023 8:36am40 units total dailyBlood-Glucose,Structural Fitter,Cont (Dexcom G7 Structural Fitter) miscDiscontinued0.Ycscv69Jozhi 2023 12:00amApril 2023 3:21pmType 2 diabetes mellitus with hyperglycemia half-way current use of insulin Type 2 diabetes mellitus with hyperglycemia terminal press operator (current) use of insulinUse to test BS 4x dailyBlood-Glucose Sensor (Dexcom G7 Sensor) deviceDiscontinued0.Tpykf34Ixxde 2023 12:002023 4:31pmType 2 diabetes mellitus with hyperglycemia 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 of insulin Type 2 diabetes mellitus with hyperglycemia terminal press operator (current) use of insulinUse to check BS 4x dailyTizanidine 4 mg tablet Qxtyvwegeecr6KBECZdext at eifckiq89545Ncytu 2023 12:00amNove2023 4:04pm1/2 - 1 PO q HSGlimepiride 1 mg yzqttgNkstohvaulha6XGSBTjflw48342 April 26, 2024 4:35pmJanuary 2024 8:41amTizanidine 4 mg tabletActive4 MGPODaily at bedtime as needed for muscle lpemdnajsq44094Lhzyoodc 15th, 2024 1:00amComplies with drug therapyDiclofenac Sodium 75 mg tablet,delayed release (DR/EC)Adqmnmmzbzun67ISJARcwkz daily as needed for lnql93236OsusqbopApril 26, 2024 1:00amDecember 2023 3:35pmBlood-Glucose Sensor (Freestyle Lamar 3 Sensor) deviceDiscontinued0.ROUTE.PZSOLNCNH923Lwefmz 2023 12:002023 5:56pmType 2 diabetes mellitus with hyperglycemia Type 2 diabetes mellitus with hyperglycemiaUse to test home BS 4-6x dailyBlood- Glucose,Structural Fitter,Cont (Freestyle Lamar 3 [place]) miscDiscontinued0.ROUTE .KBOVCHUVU35Lkxwpl 6th, 2024 12:002023 5:56pmType 2 diabetes mellitus with hyperglycemia Type 2 diabetes mellitus with hyperglycemiaUse to test home BS 4-6x daily Triamcinolone Acetonide 0.1 % lplkuCqpfbcspxnhm0CBXBDZEUBSORJXuhou uaxgo26288 January 16, 2024 12:00amN2023 4:05pmInsulin Glargine (Basaglar Kwikpen U-100 Insulin) 100 unit/mL (3 mL) insulin umqOqjqamglmhha62MZRAPJCXKD Twice stvlk53003Ztnqqx 6th, 2024 12:00amSept2023 10:52amBlood- Glucose,Structural Fitter,Cont (Dexcom G7 Structural Fitter) miscActive0.Fkvyl16Hwshcf2023 12:00amType 2 diabetes mellitus with hyperglycemia Type 2 diabetes mellitus with hyperglycemiaUse to test home BS 4x dailyBlood- Glucose Sensor (Dexcom G7 Sensor) deviceActive0.Rppid79Svazaz 2023 5:59pm Type 2 diabetes mellitus with hyperglycemia half-way current use of insulin Type 2 diabetes mellitus with hyperglycemia half-way (current) use of insulinUse to check BS 4x dailyNabumetone 750 mg nooeqqKvlueougezez771HBATFsxsm wcwfv91201Cnnb 2024 12:00amJuly 2024 6:00pmNabumetone 750 mg rxodnoDicfajstrfwh980JUGQQqzvi mvhbn81710Vnaq 2024 6:00pmOctober 2024 11:10am Relevant Diagnostic Tests and/or Laboratory Data Laboratory Results Test Collection Date/Time Result Date/Time Result Interpretation Reference Range Result Comment Performing Site Bedside Hemoglobin A1c April 02, 2025 11:05am Octo lyle 2024 11:05am 6.8 % Vital Signs Vital Reading Result Reference Range Collection Date/Time Height 68.5 [in_i] January 23, 2025 10:93oyDyevkx32.79 kgAugust 2024 10:21amHeart Rate74 /kcs25-795Tbudfs 2024 10:21amRespiratory rate12 /rza46-20Snrdhy 2024 10:21amBP Dqqlregh834 mm[Hg]100-140August 2024 10:21amBP Vczatouxq87 mm[Hg]60-100August 2024 10:21amBMI (Body Mass Index)30.3 kg/m6Ysmucc 2024 10:12afFwikvm42.5 [in_i]April 02, 2025 10:01ezZdwwov00.58 kgOctober 2024 10:50amHeart Rate78 /wdk40-285Lgqaoge 2024 10:50amRespiratory rate12 /glw24-96Zfamazi 2024 10:50amBP Rllazmxa379 mm[Hg]100-140October 2024 10:50amBP Zvssdpyoo81 mm[Hg]60-100October 2024 10:50amBMI (Body Mass Index)30.6 kg/i5Jrendbr 2024 10:50am Advance Directives Advance Directive Response Recorded Date/ Time Advance Directives No July 13, 2020 5:54pm Insurance Providers Guarantor Jamarcus Sanchez Address [address] [facility] [address]Nmsyybg Info.Home Phone: Payer Group Member ID Coverage Type Subscriber Relationship to Subscriber Effective Date Expiration Date [employer] Id: [id number] R Jamal Id: [id number] [address] [facility] [address] Home Phone: Email: [email or web address] Encounters Encounter Location(s) Arrival/Admit Date Discharge/Departure Date Discharge/Departure Disposition Provider(s) Departed Physician/ Provider Office Visit -[facility] January 23, 2025 9:58am January 23, 2025 11:18am Discharged to home care or self care (routine discharge) Christopher Pearce DO Departed Physician/ Provider Office Visit -[facility] April 02, 2025 10:27am April 02, 2025 11:45am Discharged to home care or self care (routine discharge) Christopher Pearce DO Recent Diagnosis Onset Date Admit Date SHAYLA (generalized anxiety disorder) Unknown January 23, 2025 9:58am Lumbosacral spondylosis Unknown January 102024 9:58am Obesity Unknown January 23 9:58am Type 2 diabetes mellitus with hyperglycemia Unkn own January 23, 2025 9:58am SHAYLA (generalized anxiety disorder) Unknown April 02, 2025 10:27am Low back pain Unknown April 02 10:27am Lumbosacral spondylosis Unknown April 02, 2025 10:27am Type 2 diabetes mellitus with hyperglycemia Unkn own April 02, 2025 10:27am Assessments Diagnosis Onset Date Resolution Status Admit Date SHAYLA (generalized anxiety disorder) acuteAugust 2024 9:58amLumbosacral spondylosisacuteAugust 2024 9:58amObesityacuteAugust 2024 9:58amType 2 diabetes mellitus with hyperglycemiaacuteAugust 2024 9:58amGAD (generalized anxiety disorder) acuteOctober 2024 10:27amLow back painacuteOctober 2024 10:27am Lumbosacral spondylosisacuteOctober 2024 10:27amType 2 diabetes mellitus with hyperglycemiaacuteOctober 2024 10:27am Plan of Treatment Author [facility] CenterAuthoredAugust 2024 8:30pmI have instructed this patient to follow a comprehensive diabetic treatment plan. I have also instructed them to check their feet daily for calluses and nonhealing ulcers. I have instructed them to have a yearly dilated eye examination. I have reviewed their treatment goals: SBP less than 130, LDL less than 100, FBS less than 140, A1C less than 7%. I have instructed them to maintain a home BS log and bring the results to each of their office visits for review. I have explained the importance of routine monitoring of their A1C, Microalbumin and Lipids. I have explained the benefits of well controlled diabetes in preventing micro and macrovascular complications. Latest A1C 6.7% Labile BS w/ some results > 250. Instructed to maintain consistency w/ meal times and portions. - avoid sweets Continue Glimepiride and Basaglar insulin without interruption Instructed on a healthy diet and exercise routine. Instructed to continue medical treatment w/o interruption. Instructed to avoid abrupt d/c of medication due to w/d symptoms. Continue Alprazolam without interruption - use 2-4x daily - avoid overuse - aware of sedative side effects Discussed alternative treatment options but hesitant due to previously experienced ADR - Intolerant to SSRI and SNRI Due to acute exacerbation of his underlying SHAYLA and panic attacks, I have recommended he take a leave of absence: 01/24-02/09, RTW 02/10 I have instructed this patient to avoid bending, twisting or lifting. I have also instructed on use of intermittent heat and ice as needed. They may schedule a massage or gentle manipulation. I instructed them on the safe use of Tylenol, Lidocaine and stretching exercises. I informed them of alternative modes of treatment for severe pain, which may include referral to physical therapy or pain management. I have instructed this patient on a low-fat, high-fiber diet.?? I have also instructed them to reduce calories, portions sizes, sweet drinks and snacks.?? I have also recommended they exercise for 30 minutes, 3-5 times weekly. They are aware of the comorbid conditions associated with excessive weight: Diabetes, HTN, Hyperlipidemia, CAD and arthritis. Author Christopher Pearce [facility] CenterAuthoredOctober 2024 11:29amI have instructed this patient to follow a comprehensive diabetic treatment plan. I have also instructed them to check their feet daily for calluses and nonhealing ulcers. I have instructed them to have a yearly dilated eye examination. I have reviewed their treatment goals: SBP less than 130, LDL less than 100, FBS less than 140, A1C less than 7%. I have instructed them to maintain a home BS log and bring the results to each of their office visits for review. I have explained the importance of routine monitoring of their A1C, Microalbumin and Lipids. I have explained the benefits of well controlled diabetes in preventing micro and macrovascular complications. Labile BS w/ some results > 250. Instructed to maintain consistency w/ meal times and portions. - avoid sweets POC A1C 6.8% Continue Glimepiride and Basaglar insulin without interruption I have instructed this patient to avoid bending, twisting or lifting. I have also instructed on use of intermittent heat and ice as needed. They may schedule a massage or gentle manipulation. I instructed them on the safe use of Tylenol, Lidocaine and stretching exercises. I informed them of alternative modes of treatment for severe pain, which may include referral to physical therapy or pain management. Instructed on a healthy diet and exercise routine. Instructed to continue medical treatment w/o interruption. Instructed to avoid abrupt d/c of medication due to w/d symptoms. Continue Alprazolam without interruption - use 2-4x daily - avoid overuse - aware of sedative side effects Discussed alternative treatment options but hesitant due to previously experienced ADR - Intolerant to SSRI and SNRI Due to acute exacerbation of his underlying SHAYLA and panic attacks, I have recommended he take a leave of absence: 01/24-02/09, RTW 02/10 Instructed on ice/heat and Tylenol Avoid lifting, bending and twisting Daily stretching would be beneficial Nabumetone caused indigestion and he returned to use Motrin 400mg tid - instructed to take w/ food Future Tests Future scheduled test information is unavailable Pending Tests Test Name Ordered Date Scheduled Date XR lumbar spine 6V w bending April 02, 2025 11:11am Future Visits Future appointment information is unavailable Future Procedures Future procedure information is unavailable Future Medications Future medication information is unavailable Patient Instructions Instruction Admit Date Low back pain in adults April 02 10:27am
--- OUTSIDE RECORDS SUMMARY | 2025-04-02 12:06 | XMS_ITS | Clinical Summary ---
Author Organization [facility] Address [address] [place] [address] Care Team Providers Care Medical Imaging Tech Name Role Phone Unavailable Primary Care Provider Unavailabl e Social History Tobacco UseTypesPacks/DayYears UsedDateSmoking Tobacco: Never AssessedSex and Gender InformationValueDate RecordedSex Assigned at BirthNot on fileLegal Sex Male08/24/2022 10:14 PM EDTGender IdentityNot on fileSexual OrientationNot on file Last Filed Vital Signs Vital SignReadingTime TakenCommentsBlood Pressure--Pulse--Temperature-- Respiratory Rate--Oxygen Saturation--Inhaled Oxygen Concentration--Ztqfkb49.7 kg (200 lb)06/03/2020 12:00 PM MPTVjhcmo254.3 cm (5' 9 )06/03/2020 12:00 PM ESTBody Mass Index29.5306/03/2020 12:00 PM EST Plan of Treatment Not on file
--- OUTSIDE RECORDS SUMMARY | 2025-04-02 12:06 | XMS_ITS | Clinical Summary ---
Author Organization [facility] Address [address] [facility], [address] [place] [address] Care Team Providers Care Shell Mold Bonder Name Role Phone Christopher Pearce DO Primary Care Provider [phone] Allergies No known active allergies Medications MedicationSigDispense QuantityRefillsLast FilledStart DateEnd DateStatus ALPRAZolam (XANAX) 0.5 MG tablet Take 1 tablet by mouth 3 times daily.Active insulin glargine (LANTUS;BASAGLAR) 100 UNIT/ML injection pen Inject 30 Units into the skin nightly Patient taking 22 units bid.Active glimepiride (AMARYL) 1 MG tablet Take 1 tablet by mouth every morning (before breakfast)Active omeprazole (PRILOSEC) 20 MG delayed release capsule Take 1 capsule by mouth dailyActive ibuprofen (ADVIL;MOTRIN) 200 MG tablet Take 1 tablet by mouth every 6 hours as needed for Pain Patient states he has taken 2 this AMActive ketorolac (TORADOL) 10 MG tablet Indications:Ureteral calculusTake 1 tablet by mouth every 6 hours as needed for Pain 16 tablet 506Active ondansetron (ZOFRAN) 4 MG tablet Take 1 tablet by mouth 3 times daily as needed for Nausea or Vomiting 15 tablet 5Active Active Problems ProblemNoted DateDiagnosed DateUreteral uqweqtdh33/13/2024Renal calculus 08/23/2023 Social History Tobacco UseTypesPacks/DayYears UsedDateSmoking Tobacco: NeverSmokeless Tobacco: Never Tobacco Cessation:Counseling Given: No Alcohol UseStandard Drinks/WeekCommentsNot Currently0 (1 standard drink = 0.6 oz pure alcohol)Interpersonal Safety Domain Source: IP Abuse ScreeningAnswerDate RecordedRead-Only, Retired: Physical XkjusIifdog89/26/2024ead-Only, Retired: Verbal QuuxaWalovj79/26/2024ead-Only, Retired: Emotional litpsTyzbyl12/26/2024 Read-Only, Retired: Financial VvdnoVjikbv40/26/2024ead-Only, Retired: Sexual qoemzLtnqcy38/26/2024Sex and Gender InformationValueDate RecordedSex Assigned at BirthNot on fileLegal ZiiQlwd4408/22/2023 9:49 AM EDTGender IdentityNot on file Sexual OrientationNot on file Last Filed Vital Signs Vital SignReadingTime TakenCommentsBlood Anhsbebf563/7204 10:06 AM EDT Pikdt6843 10:06 AM ULNNjzxypottwe28.5 ??C (97.7 ??F)10/09/2024 10:06 AM EDTRespiratory Ypbj360809/05/2023 11:30 AM EDTOxygen Iuxdmfqrfy24%10/09/2024 10:06 AM EDTInhaled Oxygen Concentration--Qqgozv08.3 kg (210 lb)10/11/2024 9:06 AM EDT Enrafb417.3 cm (5' 9 )10/11/2024 9:06 AM EDTBody Mass Index31.01010/11/2024 9:06 AM EDT Plan of Treatment Health MaintenanceDue DateLast DoneCommentsDepression Tjxmcz7608/22/1974HIV screen 1977Hepatitis C rkaign1708/22/1980DTaP/Tdap/Td vaccine (1 - Tdap)1981 Diabetes ujuehj0208/22/19972062Agwwug80/13/8641Fxlxqjjtnes25/13/2008FIT/FOBT: Average risk08/23/2007Sigmoidoscopy/CT qmmybcxvbrsw46/13/2008Pneumococcal 50+ years Vaccine (1 of 1 - PCV)2012Shingles vaccine (1 of 2)2012Colorectal Cancer Qqeeqp7206/27/2024Fecal-DNA (Cologuard): Average risk501/ Flu vaccine (#1)01/10/2025OVID-19 Vaccine ( season)2025 09/08/2020espiratory Syncytial Virus (RSV) or age 60 yrs+ (1 - 1-dose 75+ series)2037Hepatitis A vaccineAged OutNo longer eligible based on patient's age to complete this topicHepatitis B vaccineAged OutNo longer eligible based on patient's age to complete this topicHib vaccineAged OutNo longer eligible based on patient's age to complete this topicMeningococcal (ACWY) vaccineAged OutNo longer eligible based on patient's age to complete this topicMeningococcal B vaccineAged OutNo longer eligible based on patient's age to complete this topicPolio vaccineAged OutNo longer eligible based on patient's age to complete this topic Medical Devices ImplantedTypeAreaManufacturerDevice IdentifierShelf Expiration DateModel / Serial / LotStent Uret 6fr L26cm Hydr+ Pgtl Tapr Tip Grad Bldr Mrk Lo - [id number] Implanted:Qty: 1 on 08/29/[facility] [employer] [employer]-WD01/26/[id number] / / [id number] Uret 6fr L26cm Hydr+ Pgtl Tapr Tip Grad Bldr Mrk Lo - [id number] Implanted:Qty: 1 on 09/05/2023 [facility] [employer] [facility]-WD01/26/[id number] / / [id number] Insurance Advance Directives * Full Code (Latest Code Status on File) Date ActivatedDate InactivatedComments09/05/2023 8:29 AM09/05/2023 2:15 PM * Full Code Date ActivatedDate InactivatedComments08/29/2023 10:33 AM08/29/2023 5:38 PM Care Teams Team MemberRelationshipSpecialtyStart DateEnd Date Christopher Pearce DO [address] [place] [id number] PCP - GeneralInternal Medicine08/23/23
--- OUTSIDE RECORDS SUMMARY | 2025-04-02 12:06 | XMS_ITS | Clinical Summary ---
Author Organization [facility] Address [address] [facility] [place] [address] Phone Care Team Providers Care Ciso Name Role Phone Unavailable Primary Care Provider Unavailabl e Social History Tobacco UseTypesPacks/DayYears UsedDateSmoking Tobacco: Never AssessedSex and Gender InformationValueDate RecordedSex Assigned at BirthNot on fileLegal Sex Male05/07/2022 12:07 AM ESTGender IdentityNot on fileSexual OrientationNot on file Plan of Treatment Not on file
--- NOTE | 2025-04-02 12:18 | XR_ITS ---
The [address] [address] Patient Name: RIC SANCHEZ MRN: [id number] date: 1960 Sex: M Assigned Patient [facility]: [facility] Current Patient Location: Accession/Order Number: [id number] Exam Date: 04/02/2025 12:31 Report Date: 04/03/2025 08:13 At the request of: SP WU DO Procedure: XR lumbar spine 6V w bending LUMBAR SPINE WITH FLEXION-EXTENSION VIEWS - 6 views: CLINICAL HISTORY: Chronic low back pain, greater on the right. No injury. COMPARISON: CT 09/02/2023 AP, lateral (neutral, flexion and extension) and both oblique views were obtained. There is slight levoscoliotic curvature. There is no evidence of fracture. Alignment is maintained on the lateral views. No instability is seen. The disc spaces are normal in height. There is minimal endplate spurring and lower lumbar facet hypertrophy. No pars defect is identified. The sacroiliac joints are maintained and show minor sclerosis. Patient has a left hip prosthesis. There are no paraspinal soft tissue abnormalities. XR/XR lumbar spine 6V w bending IMPRESSION: SUBTLE SCOLIOSIS AND MINOR DEGENERATIVE CHANGE. NO ACUTE BONY FINDINGS. Impression dictated by: Madison Villatoro M.D. 04/03/2025 8:13 AM Dictation Location: [place] [address] Electronically authenticated by: [id number] Y Date: 04/03/2025 08:13
== END 2025-04-02 12:01 | disposition home or self-care (01) ==
LOC: RAD 12:02
PROVIDERS: PCP Internal Medicine; Visit Provider Internal Medicine
DX: M54.50 Low back pain, unspecified (principal); G89.29 Other chronic pain
CPT/HCPCS: 72114

== ENCOUNTER 2025-04-10 07:11 | Outpatient (OUT) | payer OTHER, SELFPAY ==
--- OUTSIDE RECORDS SUMMARY | 2025-04-10 07:13 | XMS_ITS | CCD ---
Author Organization [facility] CliniSypr Care Team Providers Care Senior Chemical Engineer Name Role Phone CHRISTOPHER WU Primary Care Physician LEYDI PEREYRA Attending Unavailable HAFSA, LEYDI Admitting Unavailable BRYCE, DR SNOWDEN Primary Care Unavailable HAFSA, LEYDI Consulting Unavailable BRIA WELLINGTON Consulting Unavailable BRYCE, DR SNOWDEN Primary Care Unavailable BRYCE, DR SNOWDEN Consulting Unavailable BRYCE, DR SNOWDEN Attending Unavailable BALL, DR SNOWDEN Admitting Unavailable BALL, DR SNOWDEN Primary Care Unavailable BRYCE, DR SNOWDEN Consulting Unavailable BRYCE, DR SNOWDEN Attending Unavailable BRYCE, DR SNOWDEN Admitting Unavailable BALL, DR SNOWDEN Primary Care Unavailable BRYCE, DR SNOWDEN Attending Unavailable BALL, DR SNOWDEN Consulting Unavailable BRYCE, DR SNOWDEN Admitting Unavailable ANSARI JR ., DR LINO Goodson Attending Unavaila ble ANSARI JR ., DR LINO Goodson Admitting Unavaila ble BALL, DR SNOWDEN Primary Care Unavailable DU, DR CASE Acosta Consulting Unavailable ANSARI JR ., DR LINO Goodson Consulting Unavaila ble BALL, DR SNOWDEN Primary Care Unavailable BALL, DR SNOWDEN Attending Unavailable BALL, DR SNOWDEN Consulting Unavailable BRYCE, DR SNOWDEN Admitting Unavailable ZIEBMAR, DR CASE Acosta Consulting Unavailable BRYCE, DR SNOWDEN Primary Care Unavailable BRYCE, DR SNOWDEN Consulting Unavailable BRYCE, DR SNOWDEN Attending Unavailable BALL, DR SNOWDEN Admitting Unavailable Christopher Wu Unavailable Kacey Vazquez Unavailable Christopher Wu DO Primary Care Provider [phone] Sergo Forde Attending Unavailable Cindy Pena Attending Unavailable Cindy Pena Attending Unavailable Sergo Forde Attending Unavailable Juan Antonio Reid Attending Unavailable Quentin Ramirez Referring Unavailable JOHNNIE HUTTON Referring Unavailable CHRISTOPHER WU Primary Care Unavailable JOHNNIE HUTTON Referring Unavailable CHRISTOPHER WU Primary Care Unavailable VIJAY CAR Referring Unavailable CHRISTOPHER WU Primary Care Unavailable JOHNNIE HUTTON Referring Unavailable CHRISTOPHER WU Primary Care Unavailable VIJAY CAR Referring Unavailable CHRISTOPHER WU Primary Care Unavailable VIJAY CAR Referring Unavailable CHRISTOPHER WU Primary Care Unavailable BRANDONELIAMAHI JOHNNIE Referring Unavailable CHRISTOPHER WU Primary Care Unavailable Bryce ROSA, Christopher Primary Care Provider Christopher Wu DO Attending Provider [phone] Christopher Wu DO Primary Care Provider Bryce ROSA, Christopher Attending Provider [phone] Berend, Quentin R Attending Unavailable Berend, Quentin R Referring Unavailable Berend, Quentin R Attending Unavailable Berend, Quentin R Referring Unavailable Berend, Quentin R Attending Unavailable Berend, Quentin R Referring Unavailable Berend, Quentin R Attending Unavailable Berend, Quentin R Referring Unavailable Christopher Wu DO Primary Care Provider Bryce ROSA, Christopher Attending Provider [phone] Allergies Allergy ClassificationReported Allergen(s)Allergy TypeDate of OnsetReaction(s) Facility (8 sources)Baclofen; 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: [baclofen]Drug Mrtwwcv44-45-3044Xbznmll [facility] (8 sources)celecoxib; 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: [celecoxib]Drug Vkgucid20-72-9252Atphmpu [facility] (20 sources)Iodine; 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: [iodine]Drug Qwvwgkt28-72-9878Vkpaluq (qualifier value)[facility] comment on above:pt states radioactive iodine only, not topicalpt states radioactive iodine only, not topical (1 source)BaclofenDrug Phpwvam57-29-4609Efr [facility] (1 source)celecoxibDrug Qttqvlw22-43-3514Vii [facility] (1 source)Iodine (And Iodine Containting Drugs)Drug allergy (disorder)03-30-2020 [facility] (20 sources)AzithromycinDrug Lynbako90-45-0776Oglfkqu, Unknown ReactionPrem[facility] (20 sources)CiprofloxacinDrug Oamcgxi43-12-5089Oxtkhod, Unknown Reaction [facility] (14 sources)Sulfamethoxazole / TrimethoprimDrug AllergyUnknowPershing [facility] Hospital [facility] Other (1 source)patient allergy list reviewed by nurse or physiciaPropensity to adverse zfnmqsbga99-34-8618Xfyrevo:[facility] Other (9 sources)SulfamethoxazoleDrug Iceqzsy52-47-5579Tpclyyy ReactionPremier Health [facility] (9 sources)TrimethoprimDrug Jqaxtuv73-63-7092Hsmhgfm ReactionPremier Health [facility] Medications Current Medications MedicationDrug Class(es)DatesSig (Normalized)Sig (Original)acetaminophen 325 mg / HYDROcodone bitartrate 5 mg oral tablet (3 sources)Opioid AgonistStart: 10-09-2024 End: 44-33-2227QIRLFvyvfqa-acetaminophen (NORCO) 5-325 MG per tablet Indications: Ureteral calculus Take 1 tablet by mouth every 8 hours as needed for Pain (Breakthrough pain only) for up to 3 days. Intended supply: 3 days. Take lowest dose possible to manage pain Max Daily Amount: 3 tablets 10 tablet 10/09/2024 10/12/2024 ActiveStart: 09-05-2023 End: 59-29-4588UYGVAoaemlt-acetaminophen (NORCO) 5-325 MG per tablet 1 tablet acetaminophen 325 mg / oxyCODONE hydrochloride 5 mg oral tablet (1 source)Opioid Agonisttake 1 tablet by mouth every four hours as needed for painoxyCODONE-acetaminophen (PERCOCET) 5-325 MG per tablet Take 1 tablet by mouth every 4 hours as needed for Pain. 0 Activeamoxicillin 875 mg / clavulanate 125 mg oral tablet (20 sources)Penicillin-class AntibacterialStart: 09-17-2024 End: 34-56-3832Haflubgaj 875 mg-125 mg Tab 1 tab(s), Oral, BID for 7 day(s), 14 tab(s), Refill(s) 0, [facility]/pharmacy #[id number], 175, cm, 09/17/24 16:39:00 EDT, Height/Length Dosing, 96, kg, 09/17/24 16:39:00 EDT, Weight Dosing Start Date: 4/8/25 Stop Date: 09/24/24 Status: Ordered Quantity: 14.0 Unit: tab(s) Repeat number: 1Start: 08-08-2023 End: 76-44-7379vluw 1 tablet by mouth every twelve hoursAmoxicillin-Pot Clavulanate 875-125 mg tablet Discontinued 1 TAB PO Every 12 hours 14 7 0 August 08, 2023 1:00am October 04, 2023 7:57pmStart: 29-73-0252acnz 1 tablet by mouth every twelve hoursAmoxicillin-Pot Clavulanate 875-125 MG 1 tablet Orally every 12 hrs for 10 days Nov, Not-Taking/PRNBlood-Glucose Meter,Continuous (Dexcom G7 Waterworks Chief Engineer) misc (6 sources)Start: 89-24-6665Fotmu-Glucose Meter,Continuous (Dexcom G7 Waterworks Chief Engineer) misc Active 0 .Route 1 January 15, 2024 11:00pmUse to test home BS 4x daily Start: 60-90-5517Yraew-Glucose Meter,Continuous (Dexcom G7 Waterworks Chief Engineer) misc Active 0 .Route 1 January 16, 2024 12:00amUse to test home BS 4x dailyStart: 10-06-2023 End: 75-74-3733Rykyq-Glucose Meter,Continuous (Dexcom G7 Waterworks Chief Engineer) misc Discontinued 0 .Route 1 October 05, 2023 11:00pm October 06, 2023 2:21pm Use to test BS 4x dailyStart: 10-06-2023 End: 52-57-5003Bubwk-Glucose Meter,Continuous (Dexcom G7 Waterworks Chief Engineer) misc Discontinued 0 .Route 1 October 06, 2023 12:00am October 06, 2023 3:21pm Use to test BS 4x dailyBlood-Glucose Sensor (Dexcom G7 Sensor) device (16 sources)Start: 81-26-5074Wedty-Glucose Sensor (Dexcom G7 Sensor) device Active 0 .Route 1 January 16, 2024 5:59pm Type 2 diabetes mellitus with hyperglycemia alf current use of insulin Type 2 diabetes mellitus with hy perglycemia joint terminal attack controller (current) use of insulin Use to check BS 4x dailyStart: 78-64-2490Larco-Glucose Sensor (Dexcom G7 Sensor) device Active 0 .Route 1 January 16, 2024 4:59pm Use to check BS 4x dailyStart: 00-16-6189Gymih-Glucose Sensor (Dexcom G7 Sensor) device Active 0 .Route 1 January 16, 2024 5:59pm Use to check BS 4x dailyStart: 10-06-2023 End: 71-59-9145Bwtqx-Glucose Sensor (Dexcom G7 Sensor) device Discontinued 0 .Route 1 October 06, 2023 12:00am January 16, 2024 4:31pm Type 2 diabetes mellitus with hyperglycemia joint terminal attack controller current use of insulin Type 2 diabetes mellitus with hyperglycemia alf (current) use of insulin Use to check BS 4x dailyStart: 10-06-2023 End: 25-19-0373Qmwes-Glucose Sensor (Dexcom G7 Sensor) device Discontinued 0 .Route 1 October 05, 2023 11:00pm January 16, 2024 3:31pm Use to check BS 4x dailyStart: 10-06-2023 End: 22-50-9411Kxgbe-Glucose Sensor (Dexcom G7 Sensor) device Discontinued 0 .Route October 06, 2023 12:00am January 16, 2024 4:31pm Use to check BS 4x dailyStart: 38-91-8316Hhskg-Glucose Sensor (Dexcom G7 Sensor) device Active 0 .Route 1 October 06, 2023 12:00am Use to check BS 4x dailyBlood- Glucose,Waterworks Chief Engineer,Cont (Dexcom G7 Waterworks Chief Engineer) misc (10 sources)Start: 74-91-4433Dmrot-Glucose,Waterworks Chief Engineer,Cont (Dexcom G7 Waterworks Chief Engineer) misc Active 0 .Route 1 January 16, 2024 12:00am Type 2 diabetes mellitus with hyperglycemia Type 2 diabetes mellitus with hyperglycemia Use to test home BS 4x dailyStart: 94-96-3251Vkfmy-Glucose,Waterworks Chief Engineer,Cont (Dex[employer] G7 Waterworks Chief Engineer) misc Active 0 .Route January 16, 2024 12:00am Use to test home BS 4x dailyStart: 10-06-2023 End: 69-02-9365Pbloo-Glucose,Waterworks Chief Engineer,Cont (Dexcom G7 Waterworks Chief Engineer) misc Discontinued 0 .Route 1 October 06, 2023 12:00am Amina 26th, 2024 3:21pm Type 2 diabetes mellitus with hyperglycemia joint terminal attack controller current use of insulin Type 2 diabetes mellitus with hyperglycemia joint terminal attack controller (current) use of insulin Use to test BS4x dailyStart: 10-06-2023 End: 41-95-3081Kmqow-Glucose,Waterworks Chief Engineer,Cont ([employer] G7 Waterworks Chief Engineer) misc Discontinued 0 .Route 1 October 06, 2023 12:00am October 06, 2023 3:21pm Use to test BS 4x dailycalcium chloride 0.0014 meq/ml / potassium chloride 0.004 meq/ml / sodium chloride 0.103 meq/ml / sodium lactate 0.028 meq/ml injectable solution (2 sources)Start: 55-77-5758HnxgcLJJklw, at 125 mL/hr, CONTINUOUS, Starting on Mon09/05/23 at 1115, PACU onlyStart: 08-70-0671rdcftubs ringers IV soln infusion dicyclomine hydrochloride 20 mg oral tablet (1 source)AnticholinergicStart: 09-20-2024 End: 07-35-2011jdqf 1 tablet by mouth three times dailydicyclomine 20 mg Tab 20 mg = 1 tab(s), Oral, TID, X 7 day(s), # 21 tab(s), Refills(s) 0, Pharmacy: [facility]/pharmacy #[id number], 176, cm, 09/20/24 6:38:00 EDT, Height/Length Dosing, 92.4, kg, 09/20/24 6:38:00EDT, Weight Dosing Start Date: 09/20/24 Stop Date: 09/27/24 Status: Ordered Quantity: 21.0 Unit: tab(s) Repeat number: 1ibuprofen 200 mg oral tablet (3 sources)Nonsteroidal Anti-inflammatory Drugtake 1 tablet by mouth every six hours as needed for pain, then take 2 tablets by mouth in the morning as needed for painibuprofen (ADVIL;MOTRIN) 200 MG tablet Take 1 tablet by mouth every 6 hours as needed for Pain Patient states he has taken 2 this AM Active3 ml insulin glargine 100 unt/ml pen injector (20 sources)Insulin AnalogStart: 97-39-0244Mttclub Glargine (Basaglar Kwikpen U- 100 Insulin) 100 unit/mL (3 mL) insulin pen Active 25 UNIT SUBCUT Twice daily 45 90 3 September 30, 2024 5:43pm Type 2 diabetes mellitus with hyperglycemia Type 2 diabetes mellitus with hyperglycemia alf (current) use of insulin Complies with drug therapyStart: 21-07-7932Bobspyjr KwikPen 100 units/mL subcutaneous solution 22 unit(s), SubCutaneous, BID, Refills(s) 0 Start Date: 09/20/24 Status: Ordered Repeat number: 1Start: 01-16-2024 End: 80-93-8697Mmbrjqa Glargine (Basaglar Kwikpen U-100 Insulin) 100 unit/mL (3 mL) insulin pen Discontinued 22 UNIT SUBCUT Twice daily 45 90 3 May 27, 2024 3:51pm September 30, 2024 5:44pm Type 2 diabetes mellitus with hyperglycemia Type 2 diabetes mellitus with hyperglycemia alf (current) use of insulin Start: 08-04-2023 End: 15-29-5625Erigtdh Glargine (Basaglar Kwikpen U-100 Insulin) 100 unit/mL (3 mL) insulin pen Discontinued 30 UNIT SUBCUT Daily August 04, 2023 1:00am August 31, 2023 12:36pmStart: 74-85-8559Yvreeo SoloStar 100 UNIT/ML 10u Subcutaneous q HS, increase 2u every 3 days for 30 days Mar, Active insulin glargine (LANTUS;BASAGLAR) 100 UNIT/ML injection pen Inject 30 Units into the skin nightly Patient taking 22 units bid. ActiveBasaglar KwikPen 100 UNIT/ML 30units ActiveBasaglar KwikPen 100 UNIT/ML 10u, increase 2u every 3 days until reach 20u Subcutaneous q HS Activeketorolac tromethamine 10 mg oral tablet (7 sources)Nonsteroidal Anti-inflammatory Drug, Cyclooxygenase InhibitorStart: 10-09-2024 End: 14-22-6076rbmx 1 tablet by mouth every six hours as needed for pain ketorolac (TORADOL) 10 MG tablet Indications: Ureteral calculus Take 1 tablet by mouth every 6 hours as needed for Pain 16 tablet 10/09/2024 10/09/2025 Active Start: 51-23-2154qlgs 1 tablet by mouth every four hours as needed for pain ketorolac 10 mg Tab 10 mg = 1 tab(s), Oral, q4hr, PRN for pain, # 60 tab(s), Refills(s) 0, Pain Start Date: 03/24/21 Status: Ordered Quantity: 60.0 Unit: tab(s) Repeat number: 1Ketorolac Tromethamine (TORADOL ORAL PO) Take by mouth 0 ActiveMulti Vitamin+ (3 sources)Start: 33-53-6479lchv 1 tablet by mouth once dailyMulti Vitamin+ 1 tab, Oral, Daily, Refill(s) 0, Prophylaxis Start Date: 03/17/21 Status: Ordered Repeat number: 1Start: 97-67-5624bxqf 1 tablet by mouth once dailyMulti Vitamin+ 1 tab, Oral, Daily, Refill(s) 0, Prophylaxis Start Date: 03/17/21 Status: Orderednaloxone 0.4 mg in 10 mL sodium chloride syringe (1 source)Start: 61-68-7379VpkqeRUKyhx, PRN, Opioid Reversal, Starting on Mon09/05/23 at 1059 [...] repeat up to 0.4 mg (10 mL) oruntil patient is responsive to physical stimulation and respiratory rate is equal to or greater than 6 breaths/min. Continue to observe, if no response within 3 minutes of administration of 0.4 mg (10 mL) total, repeat dose (0.4 mg as administered previously). Concentration 0.04 mg/mL PACU onlyomeprazole 20 mg delayed release oral capsule (5 sources)Proton Pump Inhibitortake 1 capsule by mouth once dailyomeprazole (PRILOSEC) 20 MG delayed release capsule Take 1 capsule by mouth daily Active ondansetron 4 mg oral tablet (5 sources)Serotonin-3 Receptor AntagonistStart: 07-80-1055xbwy 1 tablet by mouth three times daily as needed for nauseaondansetron (ZOFRAN) 4 MG tablet Take 1 tablet by mouth 3 times daily as needed for Nausea or Vomiting 15 tablet 10/09/2024 ActiveStart: 09-20-2024 End: 12-39-2222bfar 1 tablet by mouth every six hoursondansetron 4 mg Dis Tab 4 mg = 1 tab(s), Oral, q6hr, X 3 day(s), # 10 tab(s), Refills(s) 0, Pharmacy: [facility]/pharmacy #[id number], 176, cm, 09/20/24 6:38:00 EDT, Height/Length Dosing, 92.4, kg, 09/20/24 6:38:00 EDT, Weight Dosing Start Date: 09/20/24 Stop Date: 09/23/24 Status: Ordered Quantity: 10.0 Unit: tab(s) Repeat number: 1Start: 09-05-2023 End: mg, IntraVENous, ONCE PRN, 1 dose, Starting on Mon09/05/23 at 1059, Until Mon09/06/23 at 1059, Nausea Initial antiemetic therapy. PACU only pioglitazone 30 mg oral tablet (20 sources)Peroxisome Proliferator Receptor alpha Agonist, Peroxisome Proliferator Receptor gamma Agonist, ThiazolidinedioneStart: 66-17-1865lmpn 1 tablet by mouth once dailypioglitazone 30 mg Tab 30 mg = 1 tab(s), Oral, Daily, High blood sugar Start Date: 03/24/21 Status:Ordered Repeat number: 1tamsulosin hydrochloride 0.4 mg oral capsule (4 sources)alpha-Adrenergic BlockerStart: 06-59-4117zfyb 1 capsule by mouth once dailytamsulosin (FLOMAX) 0.4 MG capsule Indications: Ureteral calculus Take 1 capsule by mouth daily 30 capsule 10/09/2024 Activetake 1 capsule by mouth once dailytamsulosin (FLOMAX) 0.4 MG capsule Take 1 capsule by mouth daily 0 Active tiZANidine 4 mg oral tablet (15 sources)Central alpha-2 Adrenergic AgonistStart: 10-06-2023 End: 30-29-6247ojxp 1 tablet by mouth once daily at bedtime as neededTizanidine 4 mg tablet Active 4 MG PO Daily at bedtime as needed for muscle spasticity April 26, 2024 1:00am Complies with drug therapy Completed/Discontinued Medications MedicationDrug Class(es)DatesSig (Normalized)Sig (Original)acetaminophen 325 mg oral tablet (1 source)Start: 09-05-2023 End: 05-42-6941fivynoyfgecjd (TYLENOL) tablet 650 mgALPRAZolam 0.5 mg oral tablet (20 sources)BenzodiazepineStart: 08-04-2023 End: 03-39-6651cakx 1 tablet by mouth four times daily as needed for anxiety Alprazolam 0.5 mg tablet Discontinued 0.5 MG PO Four times daily as needed for anxiety 120 30 April 15, 2024 10:37pm September 11, 2024 5:50pm Generalized anxiety disorder Generalized anxiety disorderStart: 37-11-1226xxka 1 tablet by mouth four times daily as needed for anxietyALPRAZolam 0.5 MG TAKE 1 TABLET BY MOUTH FOUR TIMES A DAY NEEDED FOR ANXIETY for 30 May,ctiveStart: 50-02-1863xktt 1 tablet by mouth four times daily as needed for anxiety ALPRAZolam 0.5 MG TAKE 1 TABLET BY MOUTH FOUR TIMES A DAY NEEDED FOR ANXIETY October, ActiveStart: 89-85-8438wuej 1 tablet by mouth four times daily as needed for anxietyALPRAZolam 0.5 MG TAKE 1 TABLET BY MOUTH FOUR TIMES A DAY NEEDED FOR ANXIETY Jun, ActiveStart: 05-09-8338sncn 1 tablet by mouth three times daily as needed for anxietyXanax 0.5 mg Tab 0.5 mg = 1 tab(s), Oral, TID, PRN for anxiety, Refills(s) 0 Start Date: 03/17/21 Status: Ordered Repeat number: 1Blood-Glucose Meter,Continuous ([employer]estyle [place]) misc (3 sources)Start: 01-16-2024 End: 04-90-8312Hhiam-Glucose Meter,Continuous ([employer] [place]) misc Discontinued 0 .ROUTE .MEDSUPPLY January 15, 2024 11:00pm January 16, 2024 4:56pm Use to test home BS 4-6x dailyStart: 01-16-2024 End: 39-61-0203Dafgm-Glucose Meter,Continuous ([employer] [place]) misc Discontinued 0 .ROUTE .MEDSUPPLY January 16, 2024 12:00am January 16, 2024 5:56pm Use to test home BS 4-6x dailyStart: 83-54-4397Uqjno-Glucose Meter,Continuous ([employer] [place]) misc Active 0 .ROUTE .MEDSUPPLY 1 January 16, 2024 12:00am Use to test home BS 4-6x dailyBlood-Glucose Sensor (Freestyle Lamar 3 Sensor) device (8 sources)Start: 01-16-2024 End: 63-42-3240Xvgbl-Glucose Sensor (Freestyle Lamar 3 Sensor) device Discontinued 0 .ROUTE .MEDSUPPLY 1 2023 12:00am January 16, 2024 5:56pm Type 2 diabetes mellitus with hyperglycemia Type 2 diabetes mellitus with hyperglycemia Use to test home BS 4-6x dailyStart: 01-16-2024 End: 18-49-9663Tyyte-Glucose Sensor (Freestyle Lamar 3 Sensor) device Discontinued 0 .ROUTE .MEDSUPPLY 1 January 15, 2024 11:00pm January 16, 2024 4:56pm Use to test home BS 4-6x dailyStart: 01-16-2024 End: 44-66-7548Ffaqc-Glucose Sensor (Freestyle Lamar 3 Sensor) device Discontinued 0 .ROUTE .MEDSUPPLY 1 January 16, 2024 12:00am January 16, 2024 5:56pm Use to test home BS 4-6x dailyStart: 30-21-4816Foudl-Glucose Sensor (Freestyle Lamar 3 Sensor) device Active 0 .ROUTE .MEDSUPPLY 1 January 16, 2024 12:00am Use to test home BS 4-6x dailyBlood-Glucose,Waterworks Chief Engineer,Cont ([employer] [place]) misc (5 sources)Start: 01-16-2024 End: 65-50-0498Vmwuj-Glucose,Waterworks Chief Engineer,Cont ([employer] [place]) misc Discontinued 0 .ROUTE .MEDSUPPLY 1 0 January 16, 2024 12:00am January 16, 2024 5:56pm Type 2 diabetes mellitus with hyperglycemia Type 2 diabetes mellitus with hyperglycemia Use to test home BS 4-6x dailyStart: 01-16-2024 End: 87-94-5127Zslmy-Glucose,Waterworks Chief Engineer,Cont ([employer] [place]) misc Discontinued 0 .ROUTE .MEDSUPPLY January 16, 2024 12:00am January 16, 2024 5:56pm Use to test home BS 4-6x dailydextromethorphan hydrobromide 15 mg / guaiFENesin 400 mg / pseudoephedrine hydrochloride 60 mg oraltablet (16 sources)alpha-Adrenergic Agonist, Uncompetitive C-adahvs-A-aspartate Receptor Antagonist, Sigma-1 AgonistStart: 22-64-8741inhj 1 tablet by mouth every six hours as needed for coughCapmist DM 60-15-400 MG 1 tablet Orally q6hrs prn congestion/cough for 7 days Nov, Not-Taking/PRNdiclofenac sodium 75 mg delayed release oral tablet (11 sources)Nonsteroidal Anti-inflammatory DrugStart: 06-11-2024 End: 20-59-1259akhc 1 tablet by mouth twice daily as needed for painDiclofenac Sodium 75 mg tablet,delayed release (DR/EC) Discontinued 0 .ROUTE .COMPLEX 60 0 2023 3:35pm December 31, 2024 3:59pm TAKE 1 TABLET ORALLY TWICE DAILY NEEDED FOR PAIN FOR 15DAYSStart: 04-26-2024 End: 84-96-3561eugj 1 tablet by mouth twice daily as needed for painDiclofenac Sodium 75 mg tablet,delayed release (DR/EC) Discontinued 75 MG PO Twice daily as needed for pain 30 15 0 April 26, 2024 1:00am June 11, 2024 3:35pm dimenhyDRINATE 50 mg oral tablet (1 source)Start: 09-05-2023 End: 58-55-8665jzdljfsPPZMABM (DRAMAMINE) tablet 50 mgdoxycycline hyclate 100 mg oral capsule (20 sources)Tetracycline-class DrugStart: 08-30-2023 End: 50-79-6572npah 1 capsule by mouth twice dailyDoxycycline Hyclate 100 mg capsule Discontinued 100 MG PO Twice daily 14 7 0 August 30, 2023 12:00am October 04, 2023 7:57pmStart: 99-67-4054ixeh 1 capsule by mouth twice daily Doxycycline Hyclate 100 MG 1 capsule Orally twice daily for 7 days May, Activeglimepiride 1 mg oral tablet (20 sources)SulfonylureaStart: 06-26-2024 End: 65-10-8226npsq 1 tablet by mouth once dailyGlimepiride 1 mg tablet Discontinued 0 .ROUTE .COMPLEX 60 1 August 16, 2024 10:52am November 27, 2024 1:43pm TAKE 1 TABLET BY MOUTH DAILYStart: 08-04-2023 End: 92-13-4456fuoo 1 mg by mouth once dailyGlimepiride 2 mg tablet Discontinued 1 MG PO Daily August 04, 2023 1:00am April 26, 2024 4:35pmStart: 73-56-4588szrs 1 mg by mouth once dailyGlimepiride Active 1 MG PO Daily August 04, 2023 1:00amStart: 08-23-2022 End: 89-80-0107afip 1 tablet by mouth once dailyGlimepiride 1 mg tablet Discontinued 1 MG PO Daily 30 30 0 April 26, 2024 4:35pm June 8:41amGlimepiride 2 MG 1/2 Orally Once a day Activetake 1 tablet by mouth at breakfastGlimepiride 2 MG TAKE 1 TABLET BY MOUTH 30 MINUTES PRIOR TO BREAKFAST EVERY DAY Activetake 1 tablet by mouth at breakfastGlimepiride 1 MG TAKE 1 TABLET BY MOUTH 30 MINUTES PRIOR TO BREAKFAST Active3 ml insulin detemir 100 unt/ml pen injector (3 sources)Insulin AnalogStart: 11-29-2023 End: 84-86-3235Tnuiyxi Detemir U-100 (Levemir Flexpen) 100 unit/mL (3 mL) insulin pen Discontinued 20 UNIT SUBCUT Twice daily November 29, 2023 12:00am December 01, 2023 2:57pmInsulin Detemir U-100 (Levemir Flexpen) 100 unit/mL (3 mL) insulin pen (5 sources)Start: 11-29-2023 End: 06-36-7372Vsgtxyk Detemir U-100 (Levemir Flexpen) 100 unit/mL (3 mL) insulin pen Discontinued 20 UNIT SUBCUT Twice daily 06 10November 28, 2023 11:00pm December 01, 2023 1:57pmStart: 11-29-2023 End: 00-93-4696Kynjini Detemir U-100 (Levemir Flexpen) 100 unit/mL (3 mL) insulin pen Discontinued 20 UNIT SUBCUT Twice daily 12 November 29, 2023 12:00am December 01, 2023 2:57pmInsulin Glargine-Yfgn (12 sources)Start: 12-01-2023 End: 81-70-8634Zsktxhp Glargine-Yfgn (Semglee(Insulin Glarg-Yfgn)Pen) 100 unit/mL (3 mL) insulin pen Discontinued 22 UNIT SUBCUT Twice daily 39.6 90 3 December 01, 2023 2:56pm April 26, 2024 4:03pmStart: 12-01-2023 End: 46-81-4175Bryrvrj Glargine-Yfgn (Semglee(Insulin Glarg-Yfgn)Pen) 100 unit/mL (3 mL) insulin pen Discontinued 22 UNIT SUBCUT Twice daily 39.6 90 December 01, 2023 2:56pm April 26, 2024 4:03pmStart: 11-29-2023 End: 78-43-2697Nmjdwne Glargine-Yfgn (Semglee(Insulin Glarg-Yfgn)Pen) 100 unit/mL (3 mL) insulin pen Discontinued 22 UNIT SUBCUT Daily 21 90 3 November 29, 2023 12:00am December 01, 2023 2:57pmStart: 11-29-2023 End: 73-75-8768Owyxmjt Glargine-Yfgn (Semglee(Insulin Glarg-Yfgn)Pen) 100 unit/mL (3 mL) insulin pen Discontinued 22 UNIT SUBCUT Daily 21 90 November 29, 2023 12:00am December 01, 2023 2:57pmStart: 10-06-2023 End: 41-34-5330Dhoabzw Glargine-Yfgn (Semglee(Insulin Glarg-Yfgn)Pen) 100 unit/mL (3 mL) insulin pen Discontinued 20 UNIT SUBCUT Twice daily October 06, 2023 2:36pm November 29, 2023 8:36am 40 units total dailyStart: 08-31-2023 End: 94-71-8451Wbgduab Glargine-Yfgn (Semglee(Insulin Glarg-Yfgn)Pen) 100 unit/mL (3 mL) insulin pen Discontinued 30 UNIT SUBCUT Daily August 31, 2023 12:00am October 06, 2023 2:37pmStart: 08-31-2023 End: 41-22-1201Rejahcb Glargine-Yfgn (Semglee(Insulin Glarg-Yfgn)Pen) 100 unit/mL (3 mL) insulin pen Discontinued 30 UNIT SUBCUT Daily 03 11August 31, 2023 12:00am October 06, 2023 2:37pmInsulin Glargine-Yfgn (Semglee(Insulin Glarg-Yfgn)Pen) 100 unit/mL (3 mL) insulin pen (20 sources)Start: 12-01-2023 End: 86-34-5930Kbiaupv Glargine-Yfgn (Semglee(Insulin Glarg-Yfgn)Pen) 100 unit/mL (3 mL) insulin pen Discontinued 22 UNIT SUBCUT Twice daily 39.6 90 December 01, 2023 2:56pm April 26, 2024 4:03pmStart: 12-01-2023 End: 76-32-5225Mfaxydg Glargine-Yfgn (Semglee(Insulin Glarg-Yfgn)Pen) 100 unit/mL (3 mL) insulin pen Discontinued 22 UNIT SUBCUT Twice daily 39.6 90 December 01, 2023 1:56pm April 26, 2024 3:03pmStart: 54-04-4077Pyqtnex Glargine- Yfgn (Semglee(Insulin Glarg-Yfgn)Pen) 100 unit/mL (3 mL) insulin pen Active 22 UNIT SUBCUT Twice daily 39.6 90 December 01, 2023 2:56pmStart: 11-29-2023 End: 45-08-7536Wrmjxnb Glargine-Yfgn (Semglee(Insulin Glarg-Yfgn)Pen) 100 unit/mL (3 mL) insulin pen Discontinued 22 UNIT SUBCUT Daily 21 November 28, 2023 11:00pm December 01, 2023 1:57pmStart: 11-29-2023 End: 31-25-6198Mwoqucw Glargine-Yfgn (Semglee(Insulin Glarg-Yfgn)Pen) 100 unit/mL (3 mL) insulin pen Discontinued 22 UNIT SUBCUT Daily 21 90 November 29, 2023 12:00am December 01, 2023 2:57pmStart: 10-06-2023 End: 07-75-4414Iassrvr Glargine-Yfgn (Semglee(Insulin Glarg-Yfgn)Pen) 100 unit/mL (3 mL) insulin pen Discontinued 20 UNIT SUBCUT Twice daily October 06, 2023 1:36pm November 29, 2023 7:36am 40 units total dailyStart: 10-06-2023 End: 33-68-2667Kgqyqbc Glargine-Yfgn (Semglee(Insulin Glarg-Yfgn)Pen) 100 unit/mL (3 mL) insulin pen Discontinued 20 UNIT SUBCUT Twice daily October 06, 2023 2:36pm November 29, 2023 8:36am 40 units total dailyStart: 58-18-2051Wambtiu Glargine-Yfgn (Semglee(Insulin Glarg-Yfgn)Pen) 100 unit/mL (3 mL) insulin pen Active 20 UNIT SUBCUT Twice daily October 06, 2023 2:36pm 40 units total daily Start: 08-31-2023 End: 57-07-6911Dptajtw Glargine-Yfgn (Semglee(Insulin Glarg-Yfgn)Pen) 100 unit/mL (3 mL) insulin pen Discontinued 30 UNIT SUBCUT Daily 03 11August 30, 2023 11:00pm October 06, 2023 1:37pmStart: 08-31-2023 End: 14-23-7951Udnifww Glargine-Yfgn (Semglee(Insulin Glarg-Yfgn)Pen) 100 unit/mL (3 mL) insulin pen Discontinued 30 UNIT SUBCUT Daily 03 11August 31, 2023 12:00am October 06, 2023 2:09av930 ml levoFLOXacin 5 mg/ml injection (1 source)Quinolone AntimicrobialStart: 09-05-2023 End: 09-00-2217aejiFXVJypur (LEVAQUIN) 500 MG/100ML infusion 500 mgmetFORMIN hydrochloride 1000 mg oral tablet (20 sources)BiguanideStart: 11-01-2023 End: 62-24-0344kkyi 1 tablet by mouth once daily at mealtimeMetformin 1,000 mg tablet Discontinued 0 .ROUTE .COMPLEX 30 11 November 01, 2023 8:34am January 03, 2024 3:34pm TAKE 1 TABLET BY MOUTH ONCE PER DAY WITH A MEAL FOR 30 DAYSStart: 03-17-2021 End: 67-91-6370lqvc 1 tablet by mouth once dailyMetformin 1,000 mg tablet Discontinued 1000 MG PO Daily August 04, 2023 1:00am November 01, 2023 8:34am nabumetone 750 mg oral tablet (4 sources)Nonsteroidal Anti-inflammatory DrugStart: 12-31-2024 End: 75-06-9293sfzg 1 tablet by mouth twice dailyNabumetone 750 mg tablet Discontinued 750 MG PO Twice daily 60 30 5 December 31, 2024 6:00pm April 02, 2025 11:10amtriamcinolone acetonide 1 mg/ml topical cream (8 sources)CorticosteroidStart: 01-16-2024 End: 96-45-3161Wioavxyjsswcd Acetonide 0.1 % cream Discontinued 1 APPLIC TOPICAL Twice daily 30 30 0 January 16, 2024 12:00am April 26, 2024 4:05pm Problems Active Problems Problem ClassificationProblemDateDocumented DateEpisodic/ChronicAbdominal pain (20 sources)Epigastric pain; 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: [Left lower quadrant pain]Onset: 11-22-2016 Resolved: 88-09-4305YsebjiebHtcfs bronchitis (4 sources)Acute bronchitis due to other specified organisms; 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: [Acute bronchitis]Onset: 36-82-4300VixiemzvLghpiaz disorders (20 sources)Anxiety; 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: [Anxiety disorder, unspecified]Onset: 842284-96-6710TllvaxmAliedonr of urinary tract (20 sources)Kidney stone; 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: [Calculus of kidney]Onset: 11-09-2021 EpisodicCardiac dysrhythmias (20 sources)Ventricular premature depolarization; 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: [Other specified cardiac arrhythmias]Onset: 76-43-7695GhjnoclAgusihg dysrhythmias (4 sources)Tachycardia; 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: [Tachycardia, unspecified]03-06-2024 EpisodicChronic obstructive pulmonary disease and bronchiectasis (1 source)Simple chronic bronchitis; 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: [Simple chronic bronchitis] ChronicChronic obstructive pulmonary disease and bronchiectasis (20 sources)Bronchitis; 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: [Bronchitis]EpisodicConditions associated with dizziness or vertigo (2 sources)Dizziness and giddiness; 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: [Dizziness and giddiness] Onset: 30-89-5176HdxpwtdmPrmzldmznl and other anemia (5 sources)Anemia, unspecified; 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: [ANEMIA UNSPECIFIED]Onset: 50-34-3761AwohjzubXbfqdzgu mellitus with complications (20 sources)Type 2 diabetes mellitus with hyperglycemia; 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: [Type 2 diabetes mellitus]Onset: 26-07-2406UuijpbdTtquffjk mellitus without complication (17 sources)Type 2 diabetes mellitus without complication; 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: [Type 2 diabetes mellitus without complications]ChronicDiabetes mellitus without complication (1 source)Hyperglycemia; 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: [Hyperglycemia, unspecified]Onset: 84-04-5060QdwajhfcQbzugypl of mouth; excluding dental (1 source)Glossitis; 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: [Glossitis]EpisodicEsophageal disorders (20 sources)Gastro-esophageal reflux disease with esophagitis; 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: [Gastroesophageal reflux disease with esophagitis without hemorrhage]08-04-2023 ChronicFluid and electrolyte disorders (1 source)Dehydration; 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: [Dehydration]Onset: 03-95-5127Klydfakk Headache; including migraine (7 sources)Pain in face; 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: [Facial pain]69-44-1160Qwdezgqq Hyperplasia of prostate (2 sources)Lower urinary tract symptoms due to benign prostatic hypertrophy; 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: [Benign prostatic hyperplasia with lower urinary tract symptoms] Onset: 23-49-4246AcsxmfyBwzdpckywxwcb mental health disorders (1 source)Psychosexual dysfunction associated with inhibited sexual excitement; 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: [Psychosexual dysfunction with inhibited sexual excitement]Onset: 40-99-7057UswptwfSvew disorders (1 source)Depression; 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: [Depression, unspecified]Chronic Noninfectious gastroenteritis (1 source)Noninfectious enteritis; 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: [Noninfective gastroenteritis and colitis, unspecified]Onset: 19-48-9179HugimxmvBdlraosakmwefp (1 source)Localized, primary osteoarthritis of the pelvic region and thigh; 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: [Unilateral primaryosteoarthritis, left hip]ChronicOther aftercare (10 sources)Long-term current use of insulin; 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: [alf (current) use of insulin]EpisodicOther aftercare (1 source)alf (current) use of insulinEpisodicOther connective tissue disease (1 source)Cramp and spasmEpisodicOther connective tissue disease (1 source)Plantar fascial fibromatosis; 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: [Plantar fascial fibromatosis]EpisodicOther connective tissue disease (10 sources)Unspecified rotator cuff tear or rupture of unspecified shoulder, not specified as traumatic; 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: [Tear of rotator cuff]08-06-2023 EpisodicOther connective tissue disease (3 sources)Pain in bilateral legs; 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: [Pain in right leg]12-31-2024 EpisodicOther diseases of kidney and ureters (4 sources)Hydronephrosis; 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: [Unspecified hydronephrosis]10-15-2024 EpisodicOther ear and sense organ disorders (1 source)Unilateral sensory hearing loss; 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: [Sensorineural hearing loss, unilateral]Onset: 08-94-3056LxtntayDqduj hereditary and degenerative nervous system conditions (1 source)Idiopathic peripheral autonomic neuropathy; 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: [Idiopathic peripheral autonomic neuropathy, unspecified]Onset: 75-39-4266BmjgclbDjhvl liver diseases (3 sources)Fatty (change of) liver, not elsewhere classified; 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: [Metabolic dysfunction-associated steatotic liver disease (MASLD)]10-21-2024 ChronicOther lower respiratory disease (1 source)Shortness of breathEpisodicOther male genital disorders (1 source)Impotence of organic origin; 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: [Erectile dysfunction due to arterial insufficiency]ChronicOther nervous system disorders (20 sources)Chronic pain; 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: [Other chronic pain]ChronicOther nervous system disorders (3 sources)Paresthesia of right upper limb; 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: [Paresthesia of skin] 79-95-9008JgxfbyrjOqsmi nervous system disorders (1 source)Paresthesia of skin; 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: [Disturbance of skin sensation] 96-78-1117WhekozofIpwjn non-traumatic joint disorders (2 sources)Pain in left shoulderEpisodicOther non-traumatic joint disorders (1 source)Pain in left knee; 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: [Left knee pain]41-78-5724Cxbbgwhr Other nutritional; endocrine; and metabolic disorders (10 sources)Obesity; 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: [Obesity, unspecified]52-06-5441QngyawtOknvt nutritional; endocrine; and metabolic disorders (4 sources)Obesity, unspecified; 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: [Obesity, unspecified]08-08-2023 ChronicOther nutritional; endocrine; and metabolic disorders (8 sources)Overweight; 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: [Overweight]11-48-1414FkkkasamDskhd nutritional; endocrine; and metabolic disorders (2 sources)Overweight; 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: [Overweight]EpisodicOther screening for suspected conditions (not mental disorders or infectious disease) (17 sources)Other specified abnormal findings of blood chemistry; 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: [Encounter for screening for malignant neoplasm of prostate]Onset: 12-22-2021 EpisodicComment on above:PSA: 0.48 - 5Other upper respiratory infections (1 source)Chronic sinusitis; 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: [Chronic sinusitis, unspecified] Onset: 29-44-5593GjhyhaeJzjxwsec codes; unclassified (1 source)Insomnia; 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: [Insomnia, unspecified]EpisodicResidual codes; unclassified (1 source)Tobacco user; 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: [Nondependent tobacco use disorder] EpisodicSpondylosis; intervertebral disc disorders; other back problems (20 sources)Spondylosis without myelopathy or radiculopathy, lumbar region; 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: [Solitary sacroiliitis]Onset: 38-42-5319NimtvmgJfbdaizjrkp; intervertebral disc disorders; other back problems (10 sources)Low back pain; 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: [Low back pain, unspecified]Onset: 038792-04-0614TrwqydacSdkqrrksp-izicnbw disorders (1 source)Tobacco user; 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: [Nicotine dependence, cigarettes, in remission]ChronicTransient cerebral ischemia (1 source)Transient cerebral ischemic attack, unspecified; 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: [Unspecified transient cerebral ischemia]30-21-2350PqqsywjGdyiz infection (20 sources)Post-viral disorder; 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: [Post-viral cough syndrome] Episodic Past or Other Problems Problem ClassificationProblemDateDocumented DateEpisodic/ChronicBacterial infection; unspecified site (1 source)Bacterial infectious disease; 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: [Bacterial infection, unspecified, in conditions classified elsewhere and of unspecified site]Onset: 95-41-2142KfsvspgvLbwsjmozva and other anemia (1 source)Pernicious anemia; 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: [Vitamin B12 deficiency anemia due to intrinsic factor deficiency]Onset: 93-52-4339CssghhmbZ Codes: Adverse effects of medical drugs (2 sources)Adverse effect of insulin and oral hypoglycemic [antidiabetic] drugs, initial encounter; 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: [Penicillin adverse reaction]Onset: 06-19-2017 EpisodicEsophageal disorders (5 sources)Esophageal disorders; 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: [Gastro-esophageal reflux disease with esophagitis, without bleeding]Gastritis and duodenitis (1 source)Gastritis; 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: [Other specified gastritis without mention of hemorrhage]Onset: 35-60-4253GgytzyjiZchnpdkpawkzv symptoms and ill-defined conditions (1 source)Finding of frequency of urination; 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: [Frequency of micturition]Onset: 37-50-1053ScicbblfSnzizchdsgq chest pain (2 sources)Chest pain, unspecified; 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: [Chest pain]Onset: 06-19-2017 EpisodicOther aftercare (1 source)Other ferry terminal agent (current) drug therapy; 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: [OTH TOW TRUCK DISPATCHER CURRENT DRUG THERAPY]Onset: 10-24-6661EygefotkKqjmh aftercare (1 source)joint terminal attack controller (current) use of oral hypoglycemic drugs; 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: [JAIL USE ORAL HYPOGLYCEMIC DX]Onset: 01-78-2806EmmslpefCtged connective tissue disease (1 source)Lateral epicondylitis; 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: [Lateral epicondylitis, left elbow]Onset: 71-69-8191AbsewptcQsjjw connective tissue disease (1 source)Myalgia/myositis - multiple; 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: [Unspecified myalgia and myositis]Onset: 54-10-4143WvpfrmisJrlgz ear and sense organ disorders (1 source)Tinnitus; 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: [Tinnitus, unspecified ear]Onset: 02-06-2013 EpisodicOther eye disorders (1 source)Conjunctival hemorrhage; 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: [Conjunctival hemorrhage]Onset: 55-44-8438ApyyncuwUghbo gastrointestinal disorders (1 source)Toxic gastroenteritis; 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: [Toxic gastroenteritis and colitis]Onset: 09-37-9600McsmmfyuWqidt liver diseases (1 source)Elevated levels of transaminase & lactic acid dehydrogenase; 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: [Nonspecific elevation of levels of transaminase or lactic acid dehydrogenase (LDH)]Onset: 25-84-0772TmeawqahScdei lower respiratory disease (1 source)Cough; 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: [Cough, unspecified]Onset: 78-65-1591Umlhmjuk Other non-traumatic joint disorders (1 source)Arthralgia of the ankle and/or foot; 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: [Pain in unspecified ankle and joints of unspecified foot]Onset: 42-21-0823JksikfhaOibrg nutritional; endocrine; and metabolic disorders (1 source)Excessive thirst; 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: [Polydipsia]Onset: 71-53-5099Giwrnkkp Other nutritional; endocrine; and metabolic disorders (3 sources)Body mass index 25-29 - overweight; 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: [Body mass index 29.0-29.9, adult]Onset: 43-60-5287VivdzoslWntpi skin disorders (1 source)Generalized hyperhidrosis; 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: [Generalized hyperhidrosis] Onset: 60-97-9084GrikskduDzpbt upper respiratory infections (3 sources)Acute maxillary sinusitis, unspecified; 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: [Acute maxillary sinusitis]Onset: 64-76-1072IjdpfhsvApuwea media and related conditions (1 source)Eustachian tube disorder; 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: [Other specified disorders of Eustachian tube, unspecified ear]Onset: 10-41-6584TpvviivdDqaeulgr codes; unclassified (1 source)Sleep disorder; 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: [Persistent disorder of initiating or maintaining sleep]Onset: 73-09-9710GenkstdpNfkwbzhro and history of mental health and substance abuse codes (2 sources)Personal history of nicotine dependence; Translations: [History of tobacco use]Onset: 96-58-8861YumldfotLtmwbxr and strains (1 source)Strain of adductor muscle, fascia and tendon of left thigh, initial encounter; Translations: [Strain of adductor muscle, fascia and tendon of left thigh, initial encounter] Resolved: 93-04-6105RrkufkzcPsgcjbmtwexu (14 sources)Nonspecific abnormal findings on radiological and other examination of abdo; Translations: [Nonspecific abnormal findings on radiological and other examination of abdo]Viral infection (1 source)Disease caused by 2019-nCoV; Translations: [COVID-19] Resolved: 03-09-2021 Results Test NameValueInterpretationReference NunjyQenjfwflGdX6n HPLC (Bld) [Mass fraction]Ordered By: Christopher Wu on 01-93-6208GwY6j (Bld) [Mass fraction]6.8 % [facility] NorthUS RENAL COMPLETEon 35-89-0979IR RENAL COMPLETE EXAMINATION: RETROPERITONEAL ULTRASOUND OF THE KIDNEYS AND URINARY BLADDER 10/17/2024 COMPARISON: None HISTORY: ORDERING SYSTEM PROVIDED HISTORY: Ureteral calculus TECHNOLOGIST PROVIDED HISTORY: This procedure can be scheduled via MyChart. Possible ureteral stone, hydronephrosis FINDINGS: Kidneys: The right kidney measures 12 cm in length and the left kidney measures 10.8 cm in length. Kidneys demonstrate normal cortical echogenicity. No evidence of hydronephrosis or intrarenal stones. Bladder: Distended bladder without gross abnormality. Prevoid volume of 338 with a postvoid volume of 53. Incidental note is made of hepatic steatosis IMPRESSION: Unremarkable ultrasound of the kidneys and urinary bladder with the exception of postvoid residual. Hepatic steatosis Interpreted by: Osito Aleman MD Signed by: Osito Aleman MD 10/21/24 Final resultNormalMerSaint Francis Hospital & Medical CenterHbA1c HPLC (Bld) [Mass fraction]on 85-09-0550HwH8i (Bld) [Mass fraction]6.8 %[facility] Basophils Auto (Bld) [#/Vol]on 35-69-7407Jiphxurbg (Bld) [#/Vol]Automated basophil count0.0-0.1FChillicothe VA Medical CenterBasophils (Bld) [#/Vol]0.0 10 3/uL0.0-0.1FChillicothe VA Medical CenterBasophils/100 WBC Auto (Bld)on 93-03-2421Tnqaumvse/100 WBC (Bld)Automated basophil %0.2-2.0[facility] NorthBasophils/100 WBC (Bld)0.4 %0.2-2.0[facility] NorthCholesterol in LDL Calc [Mass/Vol]on 29-18-7531Yoqrnutfwhw in LDL [Mass/Vol]Cholesterol in LDL [Mass/volume] in Serum or Plasma by calculation [facility] NorthComment on above:<100 mg/dl IZYGAWG249-713 mg/dl NEAR OR ABOVE KUWLQVJ738-912 mg/dl BORDERLINE HYUV715-388 mg/dl HIGH>190 mg/dl VERY HIGHCholesterol in LDL [Mass/Vol]100.0 mg/dLPremier Health Miami Valley Hospital NorthComment on above:<100 mg/dl HXADSNE260-887 mg/dl NEAR OR ABOVE DHVYLMP848-088 mg/dl BORDERLINE BJKC586-908 mg/dl HIGH>190 mg/dl VERY HIGH Cholesterol in VLDL Calc [Mass/Vol]on 38-25-8428Xblvbwqzzfx in VLDL [Mass/Vol] Cholesterol in VLDL [Mass/volume] in Serum or Plasma by calculationPremier Health [facility] Hospital NorthCholesterol in VLDL [Mass/Vol]49.4 mg/dLPremier Health Miami Valley Hospital NorthEosinophils/100 WBC Auto (Bld)on 10-11-2024 Eosinophils/100 WBC (Bld)Automated eosinophil %0.9-7.0[facility] NorthEosinophils/100 WBC (Bld)2.5 %0.9-7.0[facility] Erythrocyte distribution width Auto (RBC) [Ratio]on 78-02-9128Wpqdsvxcufq distribution width (RBC) [Ratio]Erythrocyte distribution width [Ratio] by Automated count11.0-15.0[facility] NorthErythrocyte distribution width (RBC) [Ratio]13.1 %11.0-15.0[facility] Estimated glomerular filtration rate (GFR) non- Americanon 10-11-2024 GFR/1.73 sq M.predicted among non-blacks MDRD (S/P/Bld) [Vol rate/Area]Estimated glomerular filtration rate (GFR) non->=60 mL/min/1.73m 2 [facility] NorthGFR/1.73 sq M.predicted among non-blacks MDRD (S/P/Bld) [Vol rate/Area]mL/min/{1.73_m2}>=60 mL/min/1.73m 2FChillicothe VA Medical CenterGlobulin Calc (S) [Mass/Vol]on 17-15-1869Gkchbdco (S) [Mass/Vol] Serum globulin measurement by calculation (mass/volume)[facility] NorthGlobulin (S) [Mass/Vol]3.7 g/dLPremier Health [facility] North Hematocrit Auto (Bld) [Volume fraction]on 08-61-5716Kkawpjpwxc (Bld) [Volume fraction]Hematocrit [Volume Fraction] of Blood by Automated count42.0-54.0 [facility] NorthHematocrit (Bld) [Volume fraction]47.1 % 42.0-54.0[facility] NorthHemoglobin [Mass/volume] in Bloodon 79-70-0631Hajeoqqgji (Bld) [Mass/Vol]Hemoglobin [Mass/volume] in Blood14.0-18.0 [facility] NorthHemoglobin (Bld) [Mass/Vol]16.1 g/dL14.0-18.0 [facility] NorthLaboratory - Chemistry and Chemistry - challengeon 68-01-9916Mhhelmj [Mass/Vol]3.8 g/dL3.4-5.0[facility] NorthALP [Catalytic activity/Vol]107 U/G63-569OouoexmdnPrem[facility] Health [facility] Hospital NorthALT [Catalytic activity/Vol]50 U/O44-58KzoubmhxvPremier Health [facility] Hospital NorthAST [Catalytic activity/Vol]20 U/U19-97FllsbluhkPrem[facility] Bilirubin [Mass/Vol]1.1 mg/dLHigh0.2-1.0[facility] NorthCalcium [Mass/Vol]8.9 mg/dL8.5-10.1FChillicothe VA Medical CenterChloride [Moles/Vol]103 mmol/D87-739KksgdemcuPrem[facility] NorthCholesterol [Mass/Vol]193 mg/dL<=200[facility] NorthCholesterol in HDL [Mass/Vol]44 mg/uV26-23WlygkprfbPremier Health [facility] NorthComment on above:> or =60 mg/dl - LOW CARDIOVASCULAR RISK<40 mg/dl - HIGH CARDIOVASCULAR RISKCO2 [Moles/Vol]24.5 mmol/L21.0-32.0[facility] NorthCreatinine [Mass/Vol]0.91 mg/dL0.70-1.30[facility] NorthGFR/1.73 sq M.predicted MDRD (S/P/Bld) [Vol rate/Area]mL/min/{1.73_m2}>=60 mL/min/1.73m 2 [facility] NorthGlucose [Mass/Vol]148 mg/xMWixp39-589KnyjafvhhPrem[facility] NorthPotassium [Moles/Vol]3.9 mmol/L3.5-5.1FChillicothe VA Medical CenterProtein [Mass/Vol]7.5 g/dL6.4-8.2FChillicothe VA Medical Center Sodium [Moles/Vol]141 mmol/G756-682KfvfciviaPrem[facility] Health [facility] NorthTriglyceride [Mass/Vol]247 mg/dLHigh<=150[facility] NorthUrea nitrogen [Mass/Vol]12.0 mg/dL7.0-18.0[facility] NorthUrea nitrogen/Creatinine [Mass ratio]13.2 mg/mgPremier Health [facility] Laboratory - Hematology and Cell countson 95-68-0815KYA (Bld) [Velocity]14 mm/h <=20[facility] NorthImmature granulocytes/100 WBC (Bld)0.4 % 0.0-0.5FChillicothe VA Medical CenterLeukocytes [#/volume] corrected for nucleated erythrocytes in Blood by Automated counon 82-65-1196DGS corrected for nucl RBC Auto (Bld) [#/Vol]Leukocytes [#/volume] corrected for nucleated erythrocytes in Blood by Automated coun4.0-11.0[facility] WBC corrected for nucl RBC Auto (Bld) [#/Vol]4.8 10 3/uL4.0-11.0[facility] NorthLymphocytes Auto (Bld) [#/Vol]on 99-10-8584Ddeaztrwkbz (Bld) [#/Vol]Lymphocytes [#/volume] in Blood by Automated count1.2-3.8[facility] NorthLymphocytes (Bld) [#/Vol]2.4 10 3/uL1.2-3.8[facility] NorthLymphocytes/100 WBC Auto (Bld)on 10-11-2024 Lymphocytes/100 WBC (Bld)Lymphocytes/100 leukocytes in Blood by Automated count 20.5-60.0[facility] NorthLymphocytes/100 WBC (Bld)49.2 % 20.5-60.0[facility] NorthMCH Auto (RBC) [Entitic mass]on 53-72-3393QEK (RBC) [Entitic mass]MCH [Entitic mass] by Automated count25.9-34.0 [facility] (RBC) [Entitic mass]29.2 pg25.9-34.0 [facility]HC Auto (RBC) [Mass/Vol]on 75-90-8686TNVI (RBC) [Mass/Vol]MCHC [Mass/volume] by Automated count29.9-35.2FUK HealthcareHC (RBC) [Mass/Vol]34.2 g/dL29.9-35.2FFirelands Regional Medical Center Auto (RBC) [Entitic vol]on 26-67-3435KCA (RBC) [Entitic vol]MCV [Entitic volume] by Automated count80.0-94.0[facility] (RBC) [Entitic vol]85.5 fL80.0-94.0[facility] NorthMicroalbumin [Mass/volume] in Urineon 13-42-1684Irbsozg DL <= 20 mg/L (U) [Mass/Vol] Microalbumin [Mass/volume] in Urine<=30.0[facility] Albumin DL <= 20 mg/L (U) [Mass/Vol]mg/dL<=30.0[facility] Monocytes Auto (Bld) [#/Vol]on 88-45-2464Fhnndcbzo (Bld) [#/Vol]Automated blood monocyte count0.3-0.8[facility] NorthMonocytes (Bld) [#/Vol]0.4 10 3/uL0.3-0.8[facility] NorthMonocytes/100 WBC Auto (Bld)on 81-64-2253Pflopbiut/100 WBC (Bld)Automated monocyte %1.7-12.0[facility] NorthMonocytes/100 WBC (Bld)7.4 %1.7-12.0[facility] NorthNeutrophils Auto (Bld) [#/Vol]on 60-38-1882Tukpzssqinw (Bld) [#/Vol] Neutrophils [#/volume] in Blood by Automated count1.4-6.5FChillicothe VA Medical CenterNeutrophils (Bld) [#/Vol]1.9 10 3/uL1.4-6.5FChillicothe VA Medical CenterNeutrophils/100 WBC Auto (Bld)on 22-30-4636Ekjluctszmv/100 WBC (Bld)Automated neutrophil %Low43.0-75.0[facility] Neutrophils/100 WBC (Bld)40.1 %Low43.0-75.0[facility] NorthNo Panel Informationon 38-91-6895Q-Reactive Protein, Quantitative<0.50 mg/dL<=0.50 [facility] NorthEosinophils # (Auto)0.1 10 3/uL0.0-0.7FChillicothe VA Medical CenterImmature Granulocyte # (Auto)0.02 10 3/uL0.00-0.03 [facility] NorthProstate Specific Antigen Screen0.48 ng/mL <=4.00[facility] NorthUrine Random Lwlfiupboe81.21 mg/dL 20.00-300.00[facility] NorthPlatelet mean volume Auto (Bld) [Entitic vol]on 75-90-8950Gwntpqor mean volume (Bld) [Entitic vol]Platelet mean volume [Entitic volume] in Blood by Automated count9.5-13.5FChillicothe VA Medical CenterPlatelet mean volume (Bld) [Entitic vol]9.8 fL9.5-13.5FChillicothe VA Medical CenterPlatelets Auto (Bld) [#/Vol]on 80-69-8973Gwjclkemw (Bld) [#/Vol]Platelets [#/volume] in Blood by Automated ruplq041-012LtdxlxpijPremier Health Miami Valley Hospital NorthPlatelets (Bld) [#/Vol]245 10 3/xZ471-678ZqdfrlprlPremier Health Miami Valley Hospital NorthRBC Auto (Bld) [#/Vol]on 72-88-0506MUI (Bld) [#/Vol]Erythrocytes [#/volume] in Blood by Automated count4.70-6.10[facility] RBC (Bld) [#/Vol]5.51 10 6/uL4.70-6.10[facility] Centererum or plasma albumin/globulin mass ratioon 17-57-0116Dmfjqwc/Globulin [Mass ratio] Serum or plasma albumin/globulin mass ratioPrem[facility] Health [facility] North Albumin/Globulin [Mass ratio]1.0 {ratio}[facility] Centererum or plasma anion gap determinationon 98-76-5895Vwtrc gap [Moles/Vol]Serum or plasma anion gap determinationPremier Health Miami Valley Hospital NorthAnion gap [Moles/Vol]17.4 mmol/LFTrinity Health System Twin City Medical Centererum or plasma free cefuroxime measurement (mass/volume)on 88-10-8276Wypobrefrt free [Mass/Vol]Serum or plasma free cefuroxime measurement (mass/volume)NegativePremier Health Miami Valley Hospital NorthComment on above:Performed at: [employer] [id number] Director: Bong Vazquez PhD, Phone: [phone] Cefuroxime free [Mass/Vol]NegativeNegativePremier Health [facility] Comment on above:Performed at: [facility] [address] [id number] Director: Bong Vazquez PhD, Phone: [phone] or plasma total cholesterol/high density lipoprotein (HDL) cholesterol mass tucker 05-51-3415Sarbwkhymkm.total/Cholesterol in HDL [Mass ratio]Serum or plasma total cholesterol/high density lipoprotein (HDL) cholesterol mass [facility] CenterComment on above:3.3 - 4.4 LOW RISK4.4 - 7.1 AVERAGE RISK7.1 - 11.0 MODERATE RISK>11.0 HIGH RISKCholesterol.total/Cholesterol in HDL [Mass ratio]4.4 {ratio}[facility] NorthComment on above:3.3 - 4.4 LOW RISK4.4 - 7.1 AVERAGE RISK7.1 - 11.0 MODERATE RISK>11.0 HIGH RISK Cult,Urineon 55-69-0468Ueqm,UrineSpecimen Description .CLEAN CATCH URINE Special Requests Site: Urine Culture NO GROWTH Report Status FINAL 10/10/2024NoMercy HospitalComment on above: Performed By: #### URC #### [employer] [address] [place] [address] Internal Combustion Engine Subassembler: Juanito Madoff, MD [facility] [address] [place] [address] Dr. [place], [place] [id number] Internal Combustion Engine Subassembler: Andrea Jackson MDCBC with Auto Differentialon 35-83-4021Nkudvryjq (Bld) [#/Vol]Bon [facility]iffin HospitalImmature granulocytes (Bld) [#/Vol][facility] SpringfieldLymphocytes/100 WBC (Bld)2.01 %[facility] Monocytes/100 WBC (Bld)0.3 %Bon [facility]iffin HospitalNeutrophils/100 WBC (Bld)48 %36 - 65 %[facility] HospitalNucleated RBC/100 WBC (Bld) [Ratio]0 %0.0 per 100 WBCBon [facility] Tiffin HospitalSegmented neutrophils/100 WBC (Bld)2.23 %Bon [facility] HospitalWBC other (Bld) [#/Vol]4.7[facility] SpringfieldBon [facility]iff[facility] HospitalCBC with Diffon 34-62-1261Vanzvdzmo/100 WBC (Bld)0 %Normal 0-2Bon [facility] Tiffin HospitalComment on above:Performed By: #### CP, CDP #### [address] [place] [address] Internal Combustion Engine Subassembler: Andrea Jackson MDEosinophils (Bld) [#/Vol]0.13 10*3/uLNormal 0.00-0.44Bon [facility] Tiffin HospitalComascension providence hospital on above:Performed By: #### CP, CDP #### [facility] [address] [place] [address] [place] [address] Internal Combustion Engine Subassembler: Andrea Jackson MDEosinophils/100 WBC (Bld)3 %Normal1-4Bon [facility] Tiffin HospitalComment on above:Performed By: #### CP, CDP #### [address] [place] [address] Internal Combustion Engine Subassembler: Andrea Jackson MDErythrocyte distribution width (RBC) [Ratio]13.2 % Pazsbv38.8-14.4Bon [facility] on above:Performed By: #### CP, CDP #### [address] [place] [address] Internal Combustion Engine Subassembler: Andrea Jackson MDHematocrit (Bld) [Volume fraction]45.2 %Normal 40.7-50.3Bon [facility] on above:Performed By: #### CP, CDP #### [address] [place] [address] Internal Combustion Engine Subassembler: Andrea Jackson MDHemoglobin (Bld) [Mass/Vol]15.6 g/dLNormal 13.0-17.0Bon [facility] on above:Performed By: #### CP, CDP #### [address] [place] [address] Internal Combustion Engine Subassembler: Andrea Jackson MDImmature granulocytes/100 WBC (Bld)0 %Punriw1Xqo [facility] on above:Performed By: #### CP, CDP #### [address] [place] [id number] Internal Combustion Engine Subassembler: Andrea Jackson MDLymphocytes/100 WBC (Bld)43 %Ejvhsh79-32Yig [facility] on above:Performed By: #### CP, CDP #### [address] [place], [facility]83 Internal Combustion Engine Subassembler: SHERIDAN MorelandCH (RBC) [Entitic mass]29.5 isBbjuju80.2-33.5Bon [facility] on above:Performed By: #### CP, CDP #### [address] [place] [id number] Internal Combustion Engine Subassembler: SHERIDAN MorelandCHC (RBC) [Mass/Vol]34.5 g/oDSvxptb86.4-34.8Bon [facility] on above:Performed By: #### CP, CDP #### [address] [place] [address] Internal Combustion Engine Subassembler: SHERIDAN MorelandCV (RBC) [Entitic vol]85.6 dHMsnbad99.6-102.9Bon [facility] on above:Performed By: #### CP, CDP #### [address] [place] [address] Internal Combustion Engine Subassembler: SHERIDAN Morelandonocytes/100 WBC (Bld)6 %Normal3-12Bon [facility] on above:Performed By: #### CP, CDP #### [address] [place] [address] Internal Combustion Engine Subassembler: Mariola Morelandtezari mean volume (Bld) [Entitic vol]9.3 fL Normal8.1-13.5Bon [facility] on above:Performed By: #### CP, CDP #### [address] [place] [address] Internal Combustion Engine Subassembler: Mariola Morelandteihsan (Bld) [#/Vol]225 10*3/uXWdwnqa601-744Xdj [facility] on above:Performed By: #### CP, CDP #### [address] [place] [address] Internal Combustion Engine Subassembler: SOULEYMANE MorelandBC (Bld) [#/Vol]5.28 10*6/uLNormal4.21-5.77Bon [facility] on above:Performed By: #### CP, CDP #### [address] [place], [place] [address] Internal Combustion Engine Subassembler: Gabi Moreland. Basophil<0.49Kaydzt9.00-0.20MerNatchaug Hospital on above:Performed By: #### CP, CDP #### [address] [place], [place] [address] Internal Combustion Engine Subassembler: MDAbs. AnicetoImm.Granulocyte<0.53Wfkvko3.00-0.30[facility], IncComment on above:Performed By: #### CP, CDP #### [address] [place], [place] [address] Internal Combustion Engine Subassembler: Gabi Moreland.Neutrophil (Seg)2.23 k/uLNormal1.50-8.10[facility], IncComment on above:Performed By: #### CP, CDP #### [address] [place] [address] Internal Combustion Engine Subassembler: Andrea Jackson MDLymphocytes (Bld) [#/Vol]2.01 10*3/uLNormal 1.10-3.70[facility], IncComment on above:Performed By: #### CP, CDP #### [address] [place], [place] [address] Internal Combustion Engine Subassembler: SHERIDAN Morelandonocytes (Bld) [#/Vol]0.30 10*3/uLNormal0.10-1.20 [facility], IncComment on above:Performed By: #### CP, CDP #### [address] [place], [place] [address] Internal Combustion Engine Subassembler: Andrea Jackson MDNeutrophil (Seg)48 %Lrljgs08-05ZgtciSelect Medical Specialty Hospital - Boardman, IncComment on above:Performed By: #### CP, CDP #### [address] [place], [place] [address] Internal Combustion Engine Subassembler: Andrea Jackson MDNRBC Automated0.0 per 100 WBCNormal0.0[facility], IncComment on above:Performed By: #### CP, CDP #### [address] [place] [address] Internal Combustion Engine Subassembler: BIBI Moreland (Bld) [#/Vol]4.7 10*3/uLNormal3.5-11.3[facility] Institute Of LivingComment on above:Performed By: #### CP, CDP #### [facility] [address] [place] [address] Internal Combustion Engine Subassembler: Andrea Jackson, MDCT ABDOMEN PELVIS WO CONTRASTon [id number] ABDOMEN PELVIS WO CONTRASTEXAMINATION: CT OF THE ABDOMEN AND PELVIS WITHOUT CONTRAST 10/09/2024 9:48 am TECHNIQUE: CT of the abdomen and pelvis was performed without the administration of intravenous contrast. Multiplanar reformatted images are provided for review. Automated exposure control, iterative reconstruction, and/or weight based adjustment of the mA/kV was utilized to reduce the radiation dose to as low as reasonably achievable. COMPARISON: None. HISTORY: ORDERING SYSTEM PROVIDED HISTORY: Renal colic TECHNOLOGIST PROVIDED HISTORY: renal colic FINDINGS: Lower Chest: Visualized lung crain appear clear. No pleural effusions. Organs: Mild degree of left-sided hydroureteronephrosis without definitive obstructing stone identified. Calcification within the pelvis on the left appears to be external to the ureter in this region and is felt to reflect atherosclerotic vascular calcification (reference images 144-147, axial sequence, series 2 as well as images 84 and 85, sagittal sequence, series 602) as the ureter appears to pass anterior to this calcification with clear fat plane between the ureter and the underlying vascular structure. Diffuse fatty infiltration of unenhanced liver which otherwise appears unremarkable. Unremarkable appearance to unenhanced spleen, pancreas, adrenal glands and right kidney. Gallbladder is unremarkable. GI/Bowel: No evidence for bowel obstruction or definite bowel wall thickening to unopacified large or small bowel. No evidence for acute appendicitis. Grossly unremarkable stomach. Pelvis: Limited by streak artifact from left hip prosthesis. Grossly unremarkable urinary bladder and prostate. Phleboliths in the pelvis. Peritoneum/Retroperitoneum: No ascites or focal fluid collections. No intraperitoneal free air. No evidence for abdominal aortic aneurysm. No lymphadenopathy. Bones/Soft Tissues: No acute bone or soft tissue abnormality. Partially imaged left hip prosthesis. IMPRESSION: 1. Mild degree of left-sided hydroureteronephrosis without definitive obstructing stone identified. This could reflect sequela of recently passed stone. Infectious etiology not excluded. 2. Diffuse fatty infiltration of the liver. Interpreted by: Brandt Cardenas MD Signed by: Brandt Cardenas MD 10/09/24 Final resultNormalMerSaint Francis Hospital & Medical CenterCT Abdomen and Pelvis WO contraston . Mild degree of left-sided hydroureteronephrosis without definitive obstructing stone identified. This could reflect sequela of recently passed stone. Infectious etiology not excluded. 2. Diffuse fatty infiltration of the liver. [facility] CONSOLIDATEDEXAMINATION: CT OF THE ABDOMEN AND PELVIS WITHOUT CONTRAST 10/09/2024 9:48 am TECHNIQUE: CT of the abdomen and pelvis was performed without the administration of intravenous contrast. Multiplanar reformatted images are provided for review. Automated exposure control, iterative reconstruction, and/or weight based adjustment of the mA/kV was utilized to reduce the radiation dose to as low as reasonably achievable. COMPARISON: None. HISTORY: ORDERING SYSTEM PROVIDED HISTORY: Renal colic TECHNOLOGIST PROVIDED HISTORY: renal colic FINDINGS: Lower Chest: Visualized lung crain appear clear. No pleural effusions. Organs: Mild degree of left-sided hydroureteronephrosis without definitive obstructing stone identified. Calcification within the pelvis on the left appears to be external to the ureter in this region and is felt to reflect atherosclerotic vascular calcification (reference images 144-147, axial sequence, series 2 as well as images 84 and 85, sagittal sequence, series 602) as the ureter appears to pass anterior to this calcification with clear fat plane between the ureter and the underlying vascular structure. Diffuse fatty infiltration of unenhanced liver which otherwise appears unremarkable. Unremarkable appearance to unenhanced spleen, pancreas, adrenal glands and right kidney. Gallbladder is unremarkable. GI/Bowel: No evidence for bowel obstruction or definite bowel wall thickening to unopacified large or small bowel. No evidence for acute appendicitis. Grossly unremarkable stomach. Pelvis: Limited by streak artifact from left hip prosthesis. Grossly unremarkable urinary bladder and prostate. Phleboliths in the pelvis. Peritoneum/Retroperitoneum: No ascites or focal fluid collections. No intraperitoneal free air. No evidence for abdominal aortic aneurysm. No lymphadenopathy. Bones/Soft Tissues: No acute bone or soft tissue abnormality. Partially imaged left hip prosthesis. [facility] Brandt Quintana MD - 10/09/2024 EXAMINATION: CT OF THE ABDOMEN AND PELVIS WITHOUT CONTRAST 10/09/2024 9:48 am TECHNIQUE: CT of the abdomen and pelvis was performed without the administration of intravenous contrast. Multiplanar reformatted images are provided for review. Automated exposure control, iterative reconstruction, and/or weight based adjustment of the mA/kV was utilized to reduce the radiation dose to as low as reasonably achievable. COMPARISON: None. HISTORY: ORDERING SYSTEM PROVIDED HISTORY: Renal colic TECHNOLOGIST PROVIDED HISTORY: renal colic FINDINGS: Lower Chest: Visualized lung crain appear clear. No pleural effusions. Organs: Mild degree of left-sided hydroureteronephrosis without definitive obstructing stone identified. Calcification within the pelvis on the left appears to be external to the ureter in this region and is felt to reflect atherosclerotic vascular calcification (reference images 144-147, axial sequence, series 2 as well as images 84 and 85, sagittal sequence, series 602) as the ureter appears to pass anterior to this calcification with clear fat plane between the ureter and the underlying vascular structure. Diffuse fatty infiltration of unenhanced liver which otherwise appears unremarkable. Unremarkable appearance to unenhanced spleen, pancreas, adrenal glands and right kidney. Gallbladder is unremarkable. GI/Bowel: No evidence for bowel obstruction or definite bowel wall thickening to unopacified large or small bowel. No evidence for acute appendicitis. Grossly unremarkable stomach. Pelvis: Limited by streak artifact from left hip prosthesis. Grossly unremarkable urinary bladder and prostate. Phleboliths in the pelvis. Peritoneum/Retroperitoneum: No ascites or focal fluid collections. No intraperitoneal free air. No evidence for abdominal aortic aneurysm. No lymphadenopathy. Bones/Soft Tissues: No acute bone or soft tissue abnormality. Partially imaged left hip prosthesis. IMPRESSION: 1. Mild degree of left-sided hydroureteronephrosis without definitive obstructing stone identified. This could reflect sequela of recently passed stone. Infectious etiology not excluded. 2. Diffuse fatty infiltration of the liver. [facility] SixDoorsRadiology Study observation (narrative)BeegitNM Abdomen and Pelvis WO contrastOrdered By: Brandt Cardenas on 10-09-2024 [employer] Work Phone: Comp Metabolic Profon [id number] [Mass/Vol]4.4 g/dLNormal3.5-5.2[facility] Nicholasville HospitalComment on above:Performed By: #### CP, CDP #### [facility] [address] [place] [address] [place] [address] Internal Combustion Engine Subassembler: Andrea Jackson MDAlbumin/Glob Ratio1.7Utzfbf5.0-2.5[facility] HospitalComment on above:Performed By: #### CP, CDP #### [address] [place] [address] Internal Combustion Engine Subassembler: Irving Morelandkaline Qppz810 U/CTglxcg93-465Fuing Tiffin HospitalComment on above:Performed By: #### CP, CDP #### [address] [place] [address] Internal Combustion Engine Subassembler: Andrea Jackson MDALT [Catalytic activity/Vol]52 U/AQlyh63-17Nrylq Tiffin HospitalComment on above:Performed By: #### CP, CDP #### [address] [place] [address] Internal Combustion Engine Subassembler: Andrea Jackson MDAnion gap [Moles/Vol]8 mmol/LLow9-16[facility] HospitalComment on above:Performed By: #### CP, CDP #### [address] [place] [address] Internal Combustion Engine Subassembler: Andrea Jackson MDAST [Catalytic activity/Vol]26 U/MFivygf20-99Ciqvs Tiffin HospitalComment on above:Performed By: #### CP, CDP #### [address] [place] [address] Internal Combustion Engine Subassembler: Andrea Jackson MDBilirubin [Mass/Vol]0.4 mg/dLNormal0.00-1.20MerProMedica Toledo Hospital HospitalComment on above:Performed By: #### CP, CDP #### [address] [place], [place] [address] Internal Combustion Engine Subassembler: Andrea Jackson MDBUN/CRE Pxskv06Kvdjrk5-65Faulf [facility] Comment on above:Performed By: #### CP, CDP #### [address] [place], [place] [address] Internal Combustion Engine Subassembler: CARMELITA Morelandalcium [Mass/Vol]9.3 mg/dLNormal8.6-10.4[facility], IncComment on above:Performed By: #### CP, CDP #### [address] [place], [place] [address] Internal Combustion Engine Subassembler: CARMELITA Morelandhloride [Moles/Vol]104 mmol/KIdmszf01-923GxflaSelect Medical Specialty Hospital - Board[facility], IncComment on above:Performed By: #### CP, CDP #### [address] [place], [place] [address] Internal Combustion Engine Subassembler: Andrea Jackson MDCO2 [Moles/Vol]26 mmol/JHxcrrt38-25WnuqxSelect Medical Specialty Hospital - [facility], IncComment on above:Performed By: #### CP, CDP #### [address] [place], [place] [id number] Internal Combustion Engine Subassembler: CARMELITA Morelandreatinine [Mass/Vol]0.9 mg/dLNormal0.70-1.20[facility], IncComment on above:Performed By: #### CP, CDP #### [address] [place], [place] [address]83 Internal Combustion Engine Subassembler: Andrea Jackson MDGFR/1.73 sq M.predicted among non-blacks MDRD (S/P/Bld) [Vol rate/Area]mL/min/{1.73_m2}Normal>60MerSaint Francis Hospital & Medical CenterComment on above:Result Comment: These results are not intended for [...] or following therapy that affects renal tubular secretion.Performed By: #### CP, CDP #### [address] [place], [place] [id number] Internal Combustion Engine Subassembler: Andrea Jackson MDGlucose [Mass/Vol]138 mg/uFGnzb23-89DkmqwRegency Hospital Cleveland WestComment on above:Performed By: #### CP, CDP #### [address] [place] [address] Internal Combustion Engine Subassembler: [place] Morelandotassium [Moles/Vol]4.0 mmol/LNormal3.7-5.3MRegency Hospital Cleveland WestComment on above:Performed By: #### CP, CDP #### [address] [place] [address] Internal Combustion Engine Subassembler: Andrea Jackson MDProtein [Mass/Vol]7.4 g/dLNormal6.6-8.7[facility], IncComment on above:Performed By: #### CP, CDP #### [address] [place] [address] Internal Combustion Engine Subassembler: Andrea Jackson MDSodium [Moles/Vol]138 mmol/VEecfjv785-894IzrevSelect Medical Specialty Hospital - Boardman, IncComment on above:Performed By: #### CP, CDP #### [address] [place] [address] Internal Combustion Engine Subassembler: Andrea Jackson MDUrea nitrogen [Mass/Vol]11 mg/dLNormal8-23[facility], IncComment on above:Performed By: #### CP, CDP #### [address] [place] [address] Internal Combustion Engine Subassembler: CARMELITA Morelandomprehensive Metabolic Panelon 58-61-4975Kcykwop [Mass/Vol]4.4 g/dL3.5 - 5.2 g/dLBon Secours EffRx PharmaceuticalsAlbumin/Globulin [Mass ratio]1.4 {ratio}1.0 - 2.5[facility] Mercy HealthALP [Catalytic activity/Vol] 105 U/L40 - 129 U/LBon Secours BIOSAFE HealthALT [Catalytic activity/Vol]52 U/L High10 - 50 U/LBon Secours Mercy Mi-PayAnion gap [Moles/Vol]8 mmol/LLow9 - 16 mmol/LBon Secours Explore.To Yellow Pagesy HealthAST [Catalytic activity/Vol]26 U/L10 - 50 U/LBon Secours EffRx PharmaceuticalsBilirubin [Mass/Vol]0.4 mg/dL0.00 - 1.20 mg/dLBon Secours EffRx PharmaceuticalsCalcium [Mass/Vol]9.3 mg/dL8.6 - 10.4 mg/dLBon Secours EffRx Pharmaceuticals Chloride [Moles/Vol]104 mmol/L98 - 107 mmol/LBon Secours EffRx PharmaceuticalsCO2 [Moles/Vol]26 mmol/L20 - 31 mmol/LBon SecMedical Technologies InternationalCreatinine [Mass/Vol] 0.9 mg/dL0.70 - 1.20 mg/dLBon Secours EffRx PharmaceuticalsEst, Glom Filt Rate- PINFBon SecMedical Technologies InternationalComment on above: These results are not intended for use [...] following therapy that affects renal tubular secretion. Glucose [Mass/Vol]138 mg/bHBzbs28 - 99 mg/dLBon [employer] Interpretation and review of laboratory resultsAbnormalBon Secours EffRx Pharmaceuticals Potassium [Moles/Vol]4 mmol/L3.7 - 5.3 mmol/LBon SecHuan Xiong HealthProtein [Mass/Vol]7.4 g/dL6.6 - 8.7 g/dLBon Secours EffRx PharmaceuticalsSodium [Moles/Vol]138 mmol/L136 - 145 mmol/LBon SecMedical Technologies InternationalUrea nitrogen [Mass/Vol]11 mg/dL8 - 23 mg/dLBon [facility] Tiffin HospitalUrea nitrogen/Creatinine [Mass ratio]12 mg/mg9 - 20Bon [facility] HealthBon SecBrecksville VA / Crille HospitalXR Chest Single Viewon [id number] Chest Single ViewExam Date/Time: 09/17/2024 17:43 EDT Reason for Exam: Shortness of breath (SOB) Report IMPRESSION: NO EVIDENCE OF ACTIVE CARDIOPULMONARY DISEASE, BY PORTABLE CHEST RADIOGRAPHY. EXAM: XR Chest Single View DATE: 09/17/2024 5:30 PM CLINICAL HISTORY: Shortness of breath (SOB). COMPARISON: Two-view chest 03/24/2021. TECHNIQUE: A portable upright AP radiograph of the chest was obtained. FINDINGS: There is no significant pulmonary infiltrate, cardiomegaly, vascular congestion, sizable pleural effusion, pneumothorax, or acute fractures identified. Ordering Provider: Sergo Forde FINAL REPORT Dictated: 09/23/2024 1:01 pm Mark Kidd MD Signed (Electronic Signature): 09/23/2024 1:01 pm Signed by: Mark Kidd MD Transcribed by: LOUIS Technologist: [facility]. diff by PCRon [id number] difficile by PCRNegativeNormalNegativeMedina HospitalComment on above:Order Comment: Order added by Discern Expert. Result Comment: This test result should be correlated with clinical presentations and medical history by a healthcare provider to determine its clinical significance.Performed By: #### [id number] #### [facility] [address] [place], [place] [address]KFF w/ Auto Diffon [id number]/100 WBC (Bld)0.5 %Normal 0.0-2.0Medina HospitalComment on above:Performed By: #### [id number] #### [facility] [address] [place], [place] [address]Diuaywhbr/Leukocytes Auto (Bld) [Pure # fraction]0.0 E9/LNormal 0.0-0.2[facility] Oak Medical CenterComment on above:Performed By: #### [id number] #### [facility] [address] [place] [address]Ysihedkeiaz (Bld) [#/Vol]0.0 E9/LNormal0.0-0.5FCoshocton Regional Medical CenterComment on above:Performed By: #### [id number] #### [facility] [address] [place] [address]Epppqgialrs/100 WBC (Bld)0.2 %Normal0.0-8.0Medina HospitalComment on above:Performed By: #### [id number] #### [facility] [address] [place] [address]Qasktkjhooe distribution width (RBC) [Ratio]13.7 %Normal 10.9-14.2FCoshocton Regional Medical CenterComment on above:Performed By: #### [id number] #### [facility] [address] [place] [address] 62571Sjxynlatdm (Bld) [Volume fraction]52.4 %High37.7-49.0Medina HospitalComment on above:Performed By: #### [id number] #### [facility] [address] [place] [address] 52662Dnhaxbmhmx (Bld) [Mass/Vol]18.4 g/eSBhjf24.5-17.5FCoshocton Regional Medical CenterComment on above:Performed By: #### [id number] #### [facility] [address] [place] [address] 84347Lobfzelfoks (Bld) [#/Vol]1.4 E9/LNormal1.0-4.0Medina HospitalComment on above:Performed By: #### [id number] #### [facility] [address] [place] [address] 58860Pcrfsnbziwy/100 WBC (Bld)18.3 %Zkxwgi50.0-50.0Medina HospitalComment on above:Performed By: #### [id number] #### [facility] [address] [place] [address] 49781ZFM (RBC) [Entitic mass]30.2 hbDelexl22.0-34.0Medina HospitalComment on above:Performed By: #### [id number] #### [facility] [address] [place] [address] 92013SBHL (RBC) [Mass/Vol]35.2 g/sZMchryd53.4-36.0Medina HospitalComment on above:Performed By: #### [id number] #### [facility] [address] [place] [address] 86053VGM (RBC) [Entitic vol]85.7 jMTtfjsz01.0-100.0Medina HospitalComment on above:Performed By: #### [id number] #### [facility] [address] [place] [address] 85985Jntfjcndf (Bld) [#/Vol]0.8 E9/LNormal0.2-1.0Medina HospitalComment on above:Performed By: #### [id number] #### [facility] [address] [place] [address] 12453Ueuzncklqyv (Bld) [#/Vol]5.4 E9/LNormal2.0-7.5FCoshocton Regional Medical CenterComment on above:Performed By: #### [id number] #### [facility] [address] [place] [address] 68445Eyjbxitbxdw/100 WBC (Bld)70.9 %Rggkjx86.0-75.0Medina HospitalComment on above:Performed By: #### [id number] #### [facility] [address] [place] [address] 87570Flgmfuhf mean volume (Bld) [Entitic vol]8.8 fLNormal6.4-10.8 Medina HospitalComment on above:Performed By: #### [id number] #### [facility] [address] [place] [address] 85605Fljggltjx (Bld) [#/Vol]214.0 E9/KLwtffs385.0-500.0Medina HospitalComment on above:Performed By: #### [id number] #### [facility] [address] [place], [place] [address]PGN (Bld) [#/Vol]6.1 E12/LHigh4.3-5.9Medina HospitalComment on above:Performed By: #### [id number] #### [facility] [address] [place], [place] [address]UKS corrected for nucl RBC Auto (Bld) [#/Vol]7.7 E9/LNormal 4.0-11.0Medina HospitalComment on above:Performed By: #### [id number] #### [facility] [address] [place], [place] [address]ZQbyb PCRon 09-20-2024. difficile toxin A+B Ql (Stl)No, PCR to followNormalMedina HospitalComment on above:Performed By: #### [id number] #### [facility] [address] [place], [place] [address]YFAEJISOPSpxqfpm By: SYSTEM SYSTEM on 75-41-6890Kzsiqtl [Mass/Vol]4.7 g/dLNormal3.3 - 5.0 gm/dLRemisol ChemAlbumin/Globulin [Mass ratio] 1.4 {ratio}Normal1.1 - 2.2Remisol ChemALP [Catalytic activity/Vol]92 [iU]/d Mmzofp11 - 98 Int._Unit/LRemisol ChemALT No additional P-5'-P [Catalytic activity/Vol]35 [iU]/dNormal6 - 46 Int._Unit/LRemisol ChemAnion gap [Moles/Vol] 15 mmol/LNormal6 - 16 mEq/LRemisol ChemAST [Catalytic activity/Vol]20 [iU]/d Normal5 - 43 Int._Unit/LRemisol ChemBilirubin [Mass/Vol]0.9 mg/dLNormal0.0 - 1.1 mg/dLRemisol ChemCalcium [Mass/Vol]9.2 mg/dLNormal8.9 - 11.1 mg/dLRemisol Chem Chloride [Moles/Vol]102 mmol/AIlpqpx222 - 111 mmol/LRemisol ChemCO2 [Moles/Vol] 19 mmol/LLow21 - 31 mmol/LRemisol ChemCreatinine [Mass/Vol]1.0 mg/dLNormal0.5 - 1.3 mg/dLRemisol LxiqhISY11 mL/min/1.73 h7Oqqcvo>=59mL/min/1.73 d6Sjvcjrd Chem Globulin (S) [Mass/Vol]3.4 g/dLNormal1.4 - 4.0 gm/dLRemisol ChemGlucose [Mass/Vol]201 mg/kUDwec40 - 199 mg/dLRemisol ChemLipase [Catalytic activity/Vol] 12 U/LLow13 - 58 unit/LRemisol ChemPotassium [Moles/Vol]3.8 mmol/LNormal3.5 - 5.3 mmol/LRemisol ChemProtein [Mass/Vol]8.1 g/dLHigh6.0 - 7.8 gm/dLRemisol Chem Sodium [Moles/Vol]132 mmol/HThf077 - 145 mmol/LRemisol ChemUrea nitrogen [Mass/Vol]13 mg/dLNormal5 - 21 mg/dLRemisol ChemUrea nitrogen/Creatinine [Mass ratio]13 mg/unMqvmmb49 - 20Remisol ChemCMPon 38-87-8855Jwbbtuf [Mass/Vol]4.7 g/dLNormal3.3-5.0Medina HospitalComment on above:Performed By: #### [id number] #### [facility] [address] [place], [place] [address]Kizxdod/Globulin (S) [Mass conc ratio]1.0Zzsrit9.1-2.2[facility] Oak Medical CenterComment on above:Performed By: #### [id number] #### [facility] [address] [place], [place] [address]URT [Catalytic activity/Vol]92 Int._Unit/BJemiie61-29EahbvcMedina HospitalComment on above:Performed By: #### [id number] #### [facility] [address] [place], [place] [address]XZO No additional P-5'-P [Catalytic activity/Vol]35 Int._Unit/L Normal6-46Medina HospitalComment on above:Performed By: #### [id number] #### [facility] [address] [place], [place] [address]Uoliq gap [Moles/Vol]15 mmol/LNormal6-16Medina HospitalComment on above:Performed By: #### [id number] #### [facility] [address] [place], [place] [address]YHS [Catalytic activity/Vol]20 Int._Unit/LNormal5-43Medina HospitalComment on above:Performed By: #### [id number] #### [facility] [address] [place], [place] [address]Scdunufnr [Mass/Vol]0.9 mg/dLNormal0.0-1.1FCoshocton Regional Medical CenterComment on above:Performed By: #### [id number] #### [facility] [address] [place], [place] [address]Pgwzdmc [Mass/Vol]9.2 mg/dLNormal8.9-11.1FCoshocton Regional Medical CenterComment on above:Performed By: #### [id number] #### [facility] [address] [place], [place] [address]Nsebvzed [Moles/Vol]102 mmol/SHwxlng188-987FhrztyMedina HospitalComment on above:Performed By: #### [id number] #### [facility] [address] [place], [place] [address]NF0 [Moles/Vol]19 mmol/OUrz71-00AablsqMedina Hospital Comment on above:Performed By: #### [id number] #### [facility] [address] [place], [place] [address]Zvvfozzczm [Mass/Vol]1.0 mg/dLNormal0.5-1.3FCoshocton Regional Medical CenterComment on above:Performed By: #### [id number] #### [facility] [address] [place], [place] [address]Oohluvld (S) [Mass/Vol]3.4 g/dLNormal1.4-4.0Medina HospitalComment on above:Performed By: #### [id number] #### [facility] [address] [place], [place] [address]Qaveuiv [Mass/Vol]201 mg/fGZqoz88-019XbcwxaMedina HospitalComment on above:Performed By: #### [id number] #### [facility] [address] [place], [place] [address]Lqjcthftb [Moles/Vol]3.8 mmol/LNormal3.5-5.3FCoshocton Regional Medical CenterComment on above:Performed By: #### [id number] #### [facility] [address] [place], [place] [address]Ekoddse [Mass/Vol]8.1 g/dLHigh6.0-7.8Medina HospitalComment on above:Performed By: #### [id number] #### [facility] [address] [place], [place] [address]Ipmfdp [Moles/Vol]132 mmol/SJdd135-064OyyaipMedina HospitalComment on above:Performed By: #### [id number] #### [facility] [address] [place], [place] [address]Khxm nitrogen [Mass/Vol]13 mg/dLNormal5-21Medina HospitalComment on above:Performed By: #### [id number] #### [facility] [address] [place], [place] [address]Zgup nitrogen/Creatinine [Mass ratio]13 No LqhndLzobvp78-38 Medina HospitalComment on above:Performed By: #### [id number] #### [facility] [address] [place], [place] [address]NC Clinical Summaryon [id number] Clinical SummaryED Clinical Summary [address] [address] ED Clinical Summary Person Information Name: RIC BERRY/NewRama Age: 64 Years : 1960 Sex: Male Language: Iranian PCP: CHRISTOPHER WU DO Marital Status: Single Phone: [phone] Visit Id: Visit Reason: Headache; Back pain; Nausea; Diarrhea; DIARRHEA BACK ACHE Speciality: Acuity: 3 Enc Type: Emergency Med Service: Emergency Arrival: 09/20/2024 06:27:24 Discharge: 09/20/2024 09:50:56 LOS: 000 03:23 Checkin: 09/20/2024 06:27:24 Checkout: 09/20/2024 09:50:56 Dispo Type: Home (Routine DC) EVENTS: Event Name Event Status Request Date/Time Start Date/Time Complete Date/Time Arrive Complete 09/20/2024 06:27:24 09/20/2024 06:27:24 09/20/2024 06:27:24 Document Home Meds Request 09/20/2024 06:27:24 Triage Complete 09/20/2024 06:27:24 09/20/2024 06:38:52 09/20/2024 06:38:52 Bed Assign Complete 09/20/2024 06:30:31 09/20/2024 06:30:31 09/20/2024 06:30:31 Dr Exam Complete 09/20/2024 06:30:31 09/20/2024 06:32:09 09/20/2024 06:32:09 RN Exam Complete 09/20/2024 06:30:31 09/20/2024 06:58:02 09/20/2024 06:58:02 Registration Complete 09/20/2024 06:32:09 09/20/2024 06:48:35 09/20/2024 06:48:35 Reg Complete Request 09/20/2024 06:48:35 Reg Bed Request Complete 09/20/2024 06:48:35 09/20/2024 06:48:35 09/20/2024 06:48:35 Pending Labs Inlab 09/20/2024 06:48:56 Pending Labs Complete 09/20/2024 06:52:20 09/20/2024 07:23:05 Dr Exam Complete 09/20/2024 07:10:56 09/20/2024 07:10:56 09/20/2024 07:10:56 Registration Complete 09/20/2024 07:10:56 09/20/2024 09:26:09 09/20/2024 09:26:09 Pending Labs Complete 09/20/2024 07:12:28 09/20/2024 08:24:44 Lab Complete 09/20/2024 07:12:28 09/20/2024 08:24:44 Meds Admin Complete 09/20/2024 07:45:25 09/20/2024 08:02:37 Pending Labs Cancel 09/20/2024 07:45:25 09/20/2024 07:59:28 Lab Cancel 09/20/2024 07:45:26 09/20/2024 07:59:28 Pending Labs Complete 09/20/2024 07:48:23 09/20/2024 07:48:23 09/20/2024 08:03:08 Lab Complete 09/20/2024 07:48:23 09/20/2024 07:48:23 09/20/2024 08:03:08 Pending Labs Complete 09/20/2024 07:59:22 09/20/2024 07:59:22 09/20/2024 07:59:22 Pending Labs Complete 09/20/2024 09:06:06 09/20/2024 09:06:06 09/20/2024 09:06:36 Discharge Complete 09/20/2024 09:43:03 09/20/2024 09:51:05 09/20/2024 09:51:05 Transfer Complete 09/20/2024 09:51:05 09/20/2024 09:51:05 09/20/2024 09:51:05 ADDRESS: [address] [place] [id number] PHYS DOC NOTES: MEDICAL INFORMATION: Prescriptions Given: New Medications [id number], [address], [place] [id number], [phone] dicyclomine (dicyclomine 20 mg Tab) 1 Tablets By Mouth 3 times a day for 7 Days. Refills: 0. ondansetron (ondansetron 4 mg Dis Tab) 1 Tablets By Mouth every 6 hours for 3 Days. Refills: 0. Medications to Continue with No Changes Other Medications alprazolam (Xanax 0.5 mg Tab) 1 Tablets By Mouth 3 times a day as needed for anxiety. amoxicillin-clavulanate (Augmentin 875 mg-125 mg Tab) 1 Tablets By Mouth 2 times a day for 7 Days. Refills: 0. insulin glargine (Basaglar KwikPen 100 units/mL subcutaneous solution) 22 Units Subcutaneous 2 times a day. ketorolac (ketorolac 10 mg Tab) 1 Tablets By Mouth every 4 hours as needed for pain. metformin (metformin 1000 mg oral tablet) 1 Tablets By Mouth every day. multivitamin (Multi Vitamin+) 1 tab By Mouth every day. pioglitazone (pioglitazone 30 mg Tab) 1 Tablets By Mouth every day. PATIENT EDUCATION INFORMATION: Instructions: Follow up: With: Address: When: CHRISTOPHER WU [address] [place], [place] [id number] Business (1) In 3 days DIAGNOSIS: Dehydration; GastroenteritisNormalFisher Gregg Medical CenterED Note-Physicianon [id number] Note-PhysicianED Note-Physician Basic Information Time Seen: Sergo Forde DO 09/20/2024 07:10 Chief Complaint Pt arrives to ED from home with c/o diarrhea since Monday evening. C/O nausea, no vomiting. Deniesabd pain. Also states headache for last week and back pain. States no atb as he only took a single amox from previous prescription. History of Present Illness 64 male presents with diarrhea back pain headache. Patient states that he was just here recently infact he was here and seen by myself on Monday diagnosed with sinusitis and some generalized malaise. He took 1 pill of his Augmentin for sinusitis and started to have nausea vomiting diarrhea that has been very severe over these last 2 to 3 days. Patient is here with his who also has the same symptoms. He only took the 1 dose of antibiotics no further antibiotics. He denies any chest pain or difficulty breathing he does have some soreness in his back which he attributes to laying around. He does have some nausea no real vomiting with this but does state that he is had severe diarrhea. No previous history of C. difficile no other antibiotic usage other than the 1 pill on Monday. No other aggravating or relieving factors no other associated symptoms no other prior treatments or complaints. Family: Reviewed and noncontributory Social: lives at home Review of systems negative unless otherwise specified in the HPI. Physical Exam Vitals & Measurements T: 36.8 ???C(Oral) HR: 109(Peripheral) RR: 20 BP: 144/95 SpO2: 96% HT: 176 cm WT: 92.4 kg BMI: 29.83 General: The patient appears well and in no apparent distress. Patient is resting comfortably on cart. Skin: Warm, dry, no pallor noted. Head: Normocephalic, atraumatic Neck: No JVD Eye: PERRLA, EOMI ENT: Moist mucus membranes Cardiovascular: Regular rate normal peripheral perfusion Respiratory: No respiratory distress no accessory muscle use no obvious audible wheezing Chest Wall: no deformity Musculoskeletal: normal ROM, no deformity, no swelling GI: Soft no obvious distention. No rebound or rigidity. No guarding. No tenderness. Neurological: A&O moves all extremities equal strength and symmetry Psychiatric: Cooperative and appropriate Medical Decision Making Workup in the ER has been reviewed and noted. Patient does have evidence of dehydration is treated here with IV fluids. Initial stool cultures reveal C. difficile negative. Patient able to tolerate p.o. challenge here and symptoms are much improved ultimately he is discharged home follow-up in the outpatient setting return to ER if symptoms should change or worsen. Stool cultures are still pending and we will call him with any positive results. Assessment/Plan Dehydration (E86.0: Dehydration) Gastroenteritis (K52.9: Noninfective gastroenteritis and colitis, unspecified) Orders: dicyclomine, 20 mg = 1 tab(s), Oral, TID, X 7 day(s), # 21 tab(s), Refills(s) 0, Pharmacy: [id number], 176, cm, 09/20/24 6:38:00 EDT, Height/Length Dosing, 92.4, kg, 09/20/24 6:38:00 EDT, Weight Dosing ketorolac, 30 mg = 1 mL, Injection, IV, Once, Stop date 09/20/24 7:44:00 EDT, STAT, Start date 09/20/24 7:44:00 EDT, 09/20/24 7:44:00 EDT ondansetron, 4 mg = 2 mL, Injection, IV Push, Once, Stop date 09/20/24 7:44:00 EDT, STAT, Start date 09/20/24 7:44:00 EDT, 09/20/24 7:44:00 EDT ondansetron, 4 mg = 1 tab(s), Oral, q6hr, X 3 day(s), # 10 tab(s), Refills(s) 0, Pharmacy: [facility]/pharmacy #[id number], 176, cm, 09/20/24 6:38:00 EDT, Height/Length Dosing, 92.4, kg, 09/20/24 6:38:00 EDT, Weight Dosing Sodium Chloride 0.9% intravenous solution, 1,000 mL, Soln-IV, IV, Once, Stop date 09/20/24 7:44:00 EDT, STAT, Start date 09/20/24 7:44:00 EDT, Infuse over 61, minute(s) CBC w/ Auto Diff Comprehensive Metabolic Panel eGFR Extra Blue Tube Extra SST Tube Lipase Level Medications Administered Given ketorolac 30 mg/mL Inj 1 mL, 30 mg, IV NS 1000 ml Bolus, 1000 mL, IV Zofran 4 mg/2 mL Injection, 4 mg, IV Push Disposition Plan Discharge Prescription List Prescriptions dicyclomine 20 mg Tab, 20 mg= 1 tab(s), Oral, TID ondansetron 4 mg Dis Tab, 4 mg= 1 tab(s), Oral, q6hr Follow-up With When Contact Information CHRISTOPHER WU In 3 days [address] [place] [address]- Business (1) Additional Instructions: Problem List/Past Medical History Ongoing No qualifying data Historical No qualifying data Procedure/Surgical History Cystoscopy (03/25/2021), ESWL - Extracorporeal shockwave lithotripsy for renal calculus (04/11/2008), Hip replacement. Medications Inpatient ketorolac 30 mg/mL Inj 1 mL, 30 mg= 1 mL, IV, Once NS 1000 ml Bolus, 1000 mL, IV, Once Zofran 4 mg/2 mL Injection, 4 mg= 2 mL, IV Push, Once Home Augmentin 875 mg-125 mg Tab, 1 tab(s), Oral, BID, Not taking Basaglar KwikPen 100 units/mL subcutaneous solution, 22 unit(s), SubCutaneous, BID ketorolac 10 mg Tab, 10 mg= 1 tab(s), Oral, q4hr, PRN, Not taking metformin 1000 mg oral tab (more content not included)...[facility] Private HospitalComment on above:Result Comment: Electronically Signed By: Sergo Forde DO\.br\Date and Time Signed: 09/20/24 09:45EDTED Patient Education Noteon [id number] Patient Education NoteED Patient Education NoteNormMercy Health [facility] Patient Summaryon [id number] Patient SummaryED Patient Summary [address] [address] Patient Discharge Instructions Person Information Name: RIC BERRY Age: 64 Years Arrival Date: 09/20/2024 06:27:24 Discharge Diagnosis: Dehydration; Gastroenteritis Primary Care Physician: CHRISTOPHER WU DO Provider Information Primary Provider: Sergo Forde DO Advanced Media Production Operator:None The exam and treatment you received in the Emergency Department were for an urgent problem and are not intended as complete care. It is important that you follow up with a doctor, nurse practitioner,or physician???s ortho assistant for ongoing care. If your symptoms become worse or you do not improve asexpected and you are unable to reach your usual health care provider, you should return to the Emergency Department. We are available 24 hours a day. RIC BERRY has been given the following list of patient education materials, prescriptions and follow-up instructions: Follow-up Instructions: With: Address: When: CHRITSOPHER WU [address] [place] [address] Business (1) In 3 days In the event that this physician does not participate in your insurance network, please consult with your insurance company to find a nearby participating provider. Patient Education Materials: A MESSAGE TO ALL PATIENTS REGARDING OPIOIDS PRESCRIPTION OPIOIDS: WHAT YOU NEED TO KNOW Prescription opioids can be used to help relieve wtfdvpwm-ek-dfrpll pain and are often prescribed following a surgery or injury, or for certain health conditions. These medications can be an important part of the treatment but also come with serious risks. It is important to work with your healthcare provider to make sure you are getting the safest, most effective care. WHAT ARE THE RISKS AND SIDE EFFECTS OF OPIOID USE? Prescription opioids carry serious risks of addiction and overdose, especially with prolonged use. An opioid overdose, often marked by slowed breathing, can cause sudden . The use of prescription opioids can have a number of side effects as well, even when taken as directed: ??? Tolerance???meaning you might need to take more of the medication for the same pain relief ??? Physical dependence???meaning you have symptoms of withdrawal when a medication is stopped ??? Increased sensitivity to pain ??? Constipation ??? Nausea, vomiting, and dry mouth ??? Sleepiness and dizziness ??? Confusion ??? Depression ??? Low levels of testosterone that can result in lower sex drive, energy, and strength ??? Itching and sweating RISKS ARE GREATER WITH: ??? History of drug misuse, substance use disorder, or overdose ??? Mental health conditions (such as depression or anxiety) ??? Sleep apnea ??? Older age (65 years and older) ??? Avoid alcohol while taking prescription opioids. Also, unless specifically advised by your health care provider, medications to avoid include: ??? Benzodiazepines (such as Xanax or Valium) ??? Muscle relaxants (such as Soma or Flexeril) ??? Hypnotics (such as Ambien or Lunesta) ??? Other prescription opioids KNOW YOUR OPTIONS Talk to your health care provider about ways to manage your pain that don???t involve prescription opioids. Some of these options may actually work better and have fewer risks and side effects. Options may include: ??? Pain relievers such as acetaminophen, ibuprofen, and naproxen ??? Some medication that are also used for depression or seizures ??? Physical therapy and exercise ??? Cognitive behavioral therapy, a psychological, goal-directed approach, in which patients learn how to modify physical, behavioral, and emotional triggers of pain and stress. IF YOU ARE PRESCRIBED OPIOIDS FOR PAIN: ??? Never take opioids in greater amounts or more often than prescribed. ??? Follow up with your primary health care provider. o Work together to create a plan on how to manage your pain. o Talk about ways to help manage your pain that don???t involve prescription opioids. o Talk about any and all concerns and side effects. ??? Help prevent misuse and abuse o Never sell or share prescription opioids. o Never use another person???s prescription opioids. ??? Store prescription opioids in a secure place and out of reach of others (this may include visitors, children, friends, and family). ??? Safely dispose of unused prescription opioids: Find your community drug take-back program or your pharmacy mail-back program, or flush them down the toilet, following guidance from the Food and Drug Administration (www.fda.gov/Drugs/ResourcesForYou). ??? Visit www.cdc.gov/drugoverdose to learn about the risks of opioids abuse and overdose. ??? If you believe you may be struggling with addiction, tell your health career technical education instructor and askfor guidance or call [facility]S National Help (more content not included)...[facility] HospitalEnteric Panel by PCRon 09-20-2024. coli+jejuni+upsaliensis DNA PUMA+non-probe Ql (Stl)Not detected [facility] HospitalComment on above:Result Comment: Testing was performed utilizing reverse role player (RT), polymerase chain reaction (PCR), and array hybridization to detect specific gastrointestinal microbial nucleic acid gene sequences associated with the following pathogenic bacteria and viruses:Campylobacter Group (composed of C. coli, C. jejuni, and C. faith), Salmonella species, Shigella species (including S. dysenteriae,S. boydii, S. sonnei and S. flexneri), Vibrio Group (composed of V. cholera and V. parahaemolyticus), Yersinia enterocolitica, Norovirus GI/GII, and Rotavirus A. In addition, EPdetects Shiga toxin 1 gene and Shiga toxin 2 gene virulence markers. Shiga toxin producing E. coli (STEC) typically harborone or both genes that encode for Shiga toxins 1 and 2. Campylobacter group, Salmonella species, Shigella species, Vibrio group, Rotavirus A, Shiga Toxin 1, Shiga Toxin 2, Norovirus GI/GII, and Yersinia enterocolitica were tested by Verigene nulcleic acidtest.Performed By: #### [id number] #### [facility] [address] [place] [address]Z. coli stx1+stx2 genes PUMA+non-probe Ql (Stl)NegativeNormal Medina HospitalComment on above:Performed By: #### [id number] #### [facility] [address] [place], [place] [address]Consnfe Panel Intrl QCPassKeenan Private Hospital Comment on above:Result Comment: Testing was performed utilizing reverse role player (RT), polymerase chain reaction (PCR), and array hybridization to detect specific gastrointestinal microbial nucleic acid gene sequences associated with the following pathogenic bacteria and viruses:Campylobacter Group (composed of C. coli, C. jejuni, and C. faith), Salmonella species, Shigella species (including S. dysenteriae,S. boydii, S. sonnei and S. flexneri), Vibrio Group (composed of V. cholera and V. parahaemolyticus), Yersinia enterocolitica, Norovirus GI/GII, and Rotavirus A. In addition, EPdetects Shiga toxin 1 gene and Shiga toxin 2 gene virulence markers. Shiga toxin producing E. coli (STEC) typically harborone or both genes that encode for Shiga toxins 1 and 2.Performed By: #### [id number] #### [address] [address]Mtmoooxml genogroup I+II RNA PUMA+non-probe Ql (Stl)Not detected [facility] HospitalComment on above:Performed By: #### [id number] #### [address] [address]Iemupyaun A RNA PUMA+non-probe Ql (Stl)DetectedAbVeterans Health AdministrationComment on above:Result Comment: called to Jose Francisco Donovan /MIKE 09/20/2024 10:10:46 EDT by KDPerformed By: #### [id number] #### [facility] [address] [place], [place] [address]T. enterica+bongori DNA PUMA+non-probe Ql (Stl)Not detected [facility] HospitalComment on above:Result Comment: This test result should be correlated with clinical presentations and medical history by a healthcare provider to determine its clinical significance.Performed By: #### [id number] #### [facility] [facility] [address] [place], [place] [address]Jojgfumr species+EIEC invasion plasmid antigen H ipaH gene PUMA+non-probe Ql (Stl)Not detectedNoBellevue HospitalComment on above:Performed By: #### [id number] #### [facility] [address] [place], [place] [address]Q. cholerae+parahaemolyticus+vulnificus DNA PUMA+non-probe Ql (Stl)Not detectedNoBellevue HospitalComment on above:Performed By: #### [id number] #### [facility] [address] [place] [address] 28[address]V. enterocolitica DNA PUMA+non-probe Ql (Stl)Not detectedNormal Medina HospitalComment on above:Performed By: #### [id number] #### [facility] [address] [place] [address]Wgnji Blueon 29-87-1613Owmp Collected PlasmaYesInvalid Interpretation CodeMedina HospitalComment on above:Performed By: #### [id number] #### [facility] [address] [place], [place] [address]PNLCIEZNEBUpwjmpj By: SYSTEM SYSTEM on 82-87-7420Ousynudam/100 WBC (Bld)0.5 %Normal0.0 - 2.0 %Remisol HemeBasophils/Leukocytes Auto (Bld) [Pure # fraction]0.0 E9/LNormal0.0 - 0.2 E9/LRemisol HemeEosinophils (Bld) [#/Vol]0.0 E9/LNormal0.0 - 0.5 E9/LRemisol HemeEosinophils/100 WBC (Bld)0.2 %Normal0.0 - 8.0 %Remisol HemeErythrocyte distribution width (RBC) [Ratio]13.7 %Lesxcb44.9 - 14.2 %Remisol HemeHematocrit (Bld) [Volume fraction]52.4 %High37.7 - 49.0 % Remisol HemeHemoglobin (Bld) [Mass/Vol]18.4 g/aGNunj55.5 - 17.5 gm/dLRemisol HemeLymphocytes (Bld) [#/Vol]1.4 E9/LNormal1.0 - 4.0 E9/LRemisol Heme Lymphocytes/100 WBC (Bld)18.3 %Forvhs41.0 - 50.0 %Remisol HemeMCH (RBC) [Entitic mass]30.2 kdGgqjnt46.0 - 34.0 pgRemisol HemeMCHC (RBC) [Mass/Vol]35.2 g/dL Wvdbrf31.4 - 36.0 gm/dLRemisol HemeMCV (RBC) [Entitic vol]85.7 tPUngxku67.0 - 100.0 fLRemisol HemeMonocytes (Bld) [#/Vol]0.8 E9/LNormal0.2 - 1.0 E9/LRemisol HemeMonocytes/100 WBC (Bld)10.1 %Normal4.0 - 14.0 %Remisol HemeNeutrophils (Bld) [#/Vol]5.4 E9/LNormal2.0 - 7.5 E9/LRemisol HemeNeutrophils/100 WBC (Bld)70.9 % Hbennj19.0 - 75.0 %Remisol HemePlatelet mean volume (Bld) [Entitic vol]8.8 fL Normal6.4 - 10.8 fLRemisol HemePlatelets (Bld) [#/Vol]214.0 E9/KAsrgef039.0 - 500.0 E9/LRemisol HemeRBC (Bld) [#/Vol]6.1 E12/LHigh4.3 - 5.9 E12/LRemisol Heme WBC corrected for nucl RBC Auto (Bld) [#/Vol]7.7 E9/LNormal4.0 - 11.0 E9/L Remisol HemeLipase Levelon 05-02-3404Fjscee [Catalytic activity/Vol]12 U/LLow 13-58[facility]ina HospitalComment on above:Performed By: #### [id number] #### [facility] [address] [place], [place] [address]QH with Cult Rflxon 51-35-0064Dgepikdln Ql (U)NegativeNormal NegativeMedina HospitalComment on above:Performed By: #### [id number] #### [facility] [address] [place], [place] [address]Gekcbco (U)ClearNormalClearMedina HospitalComment on above:Performed By: #### [id number] #### [facility] [address] [place], [place] [address]Fhjue (U)YellowNormalYellowMedina HospitalComment on above:Result Comment: Microscopic readings are only performed on those samples that meet specific criteria set forth by [facility].Performed By: #### [id number] #### [facility] [address] [place], [place] [address]Zydlrjgknk cells.squamous Auto (Urine sed) [#/Area]0-2Invalid Interpretation CodeMedina HospitalComment on above:Performed By: #### [id number] #### [facility] [address] [place], [place] [address]Pcxjirq Ql (U)1+ mg/dLAbnormalNegativeMedina HospitalComment on above:Performed By: #### [id number] #### [facility] [address] [place], [place] [address]Acuchlup casts Computer assisted Ql (U)0-3AbnormalMedina HospitalComment on above:Performed By: #### [id number] #### [facility] [address] [place], [place] [address]Kkvjzpwply Auto test strip (U) [Mass/Vol]TraceAbnormalNegative [facility] HospitalComment on above:Performed By: #### [id number] #### [facility] [address] [place] [address]Qbccysd Auto test strip Ql (U)1+ mg/dLAbnormalNegativeMedina HospitalComment on above:Performed By: #### [id number] #### [facility] [address] [place] [address]Tszjnppvx esterase Auto test strip Ql (U)NegativeNormalNegative [facility] HospitalComment on above:Performed By: #### [id number] #### [facility] [address] [place] [address]Insgt Auto Ql (U)TraceNormalNegParkview Health [facility] Comment on above:Performed By: #### [id number] #### [facility] [address] [place] [address] 15[address]Ghnltyw Auto test strip Ql (U)NegativeNormalNegativeMedina HospitalComment on above:Performed By: #### [id number] #### [facility] [address] [place] [address] 33872oF (U)5.5 [pH]Invalid Interpretation Code5.0-9.0[facility] HospitalComment on above:Performed By: #### [id number] #### [facility] [address] [place] [address]Sgyzjaz Ql (U)2+ mg/dLAbnormalNegParkview Health Montpelier HospitalComment on above:Performed By: #### [id number] #### [facility] [address] [place] [address] 15169Tgtfvxja gravity (U) [Rel density]1.025Invalid Interpretation Code1.005-1.030[facility] HospitalComment on above:Performed By: #### [id number] #### [facility] [address] [place] [address]Bhlkopewnndg (U) [Mass/Vol]NegativeNormalNegativeFisher Vermilion Medical CenterComment on above:Performed By: #### [id number] #### [facility] [address] [place], [place] [address]XPF Auto (Urine sed) [#/Area]3-5Loulgo6-3Yffour [facility] CenterComment on above:Performed By: #### [id number] #### [facility] [address] [place], [place] [address]Smic of Urine collection methodClean CatchNormalFisher [facility] CenterComment on above:Performed By: #### [id number] #### [facility] [address] [place], [place] [address]KMAFRHKJQKBbzlnsp By: SYSTEM SYSTEM on 25-44-5803Mtfvqzyja Ql (U)NegativeNormalNegativemg/dLBR[facility] U[facility] Auto SSClarity (U)Clear (09/20/24 6:54 AM)NormalClearFAMERICAN HOSPITAL ASSOCIATION UA Auto SSColor (U)Yellow 1 (09/20/24 6:54 AM)NormalYellowBROOKHAVEN HOSPITAL [facility] [place] UA Auto SSComment on above:Interpretive Data: Microscopic readings are only performed on those samples that meet specific criteria set forth by [facility].Epithelial cells.squamous Auto (Urine sed) [#/Area]0-2 graded/HPFInvalid Interpretation CodeFT UA Auto SSGlucose Ql (U)1+ mg/dLInvalid Interpretation Code Negativemg/dLFT UA Auto SSGranular casts Computer assisted Ql (U)0-3 graded/LPFInvalid Interpretation CodeFT UA Auto SSHemoglobin Auto test strip (U) [Mass/Vol]Trace mg/dLInvalid Interpretation CodeNegativemg/dLFT UA Auto SS Ketones Auto test strip Ql (U)1+ mg/dLInvalid Interpretation CodeNegativemg/dL [facility] UA Auto SSLeukocyte esterase Auto test strip Ql (U)NegativeNormal NegativeLeu/uLFT UA Auto SSMucus Auto Ql (U)Trace graded/LPFNormal Negativegraded/LPFFTMC UA Auto SSNitrite Auto test strip Ql (U)NegativeNormal Negativemg/dLFT UA Auto SSpH (U)5.5 *NA* (09/20/24 6:54 AM)Invalid Interpretation Code5.0 - 9.0[facility] Auto SSProtein Ql (U)2+ mg/dLInvalid Interpretation CodeNegativemg/dLBROOKHAVEN [facility]OSP[facility] [place] U[facility] Auto SSSpecific gravity (U) [Rel density]1.025 *NA* (09/20/24 6:54 AM)Invalid Interpretation Code1.005 - 1.030[facility] Auto SS Urobilinogen (U) [Mass/Vol]NegativeNormalNegativemg/dLBROOKHAVEN [facility]OSP[facility] Auto SSWBC Auto (Urine sed) [#/Area]0-5 graded/HPFNormal0-5graded/HPFBROOKHAVEN [facility]OSPITAL [facility] UA Auto SSURINALYSIS Ordered By: Cindy Pena on 03-55-6177NU Spec DescClean Catch (09/20/24 6:54 AM)NormalBROOKHAVEN [facility] U[facility] Auto SS egFRon 60-09-0571rKOP51 mL/min/1.73 a3Bjnfuv>=59Fisher [facility] CenterComment on above:Performed By: #### [id number] #### [facility] [address] [place], [place] [address]RQ Head or Brain w/o Contraston 83-87-9537YH Head or Brain w/o ContrastExam Date/Time: 09/17/2024 17:46 EDT Reason for Exam: numbness;Other (please specify) Report Impression: Ethmoid and maxillary sinusitis. CT Brain. Contrast medium: without contrast.. History: Intermittent facial numbness 2-3 months. Technical factors: CT imaging of the brain was obtained and formatted as 5 mm contiguous axial images. 2.5 mm contiguous axial images were obtained through the osseous structures. Sagittal and coronal reconstruction obtained during postprocessing. Comparison: None . Findings: Extra-axial spaces: Normal. Intracranial hemorrhage: None. Ventricular system: Without anomaly. Basal Cisterns: Normal. Cerebral Parenchyma: Without anomaly. Midline Shift: None. Cerebellum: Normal. Paranasal sinuses and mastoid air cells: Partial opacification ethmoid sinuses bilaterally. Opacification right maxillary sinus. Visualized Orbits: Normal. All CT scans at this facility use dose modulation, iterative reconstruction, and/or weight based dosing when appropriate to reduce radiation dose to as low as reasonably achievable. Technical Comments: Report Ordering Provider: Sergo Forde FINAL REPORT Dictated: 09/18/2024 8:09 am Christopher Bird MD Signed (Electronic Signature): 09/18/2024 8:09 am Signed by: Christopher Bird MD Transcribed by: LOUIS Technologist: KathyMedina HospitalBMPon 70-12-7729Klmux gap [Moles/Vol]11 mmol/LNormal6-16[facility] Comment on above:Performed By: #### [id number] #### [facility] [address] [facility], [place] [address]Beslqtj [Mass/Vol]8.6 mg/dLLow8.9-11.1FCoshocton Regional Medical CenterComment on above:Performed By: #### [id number] #### [facility] [address] [facility], [place] [address]Innbuykw [Moles/Vol]104 mmol/CYiioqk144-645LnljxbMedina HospitalComment on above:Performed By: #### [id number] #### [facility] [address] [facility], [place] [address]LL5 [Moles/Vol]26 mmol/IGzmfou57-92JzcezcMedina Hospital Comment on above:Performed By: #### [id number] #### [facility] [address] [facility], [place] [address]Fxteiiaebv [Mass/Vol]0.9 mg/dLNormal0.5-1.3FCoshocton Regional Medical CenterComment on above:Performed By: #### [id number] #### [facility] [address] [facility], [place] [address]Gdazout [Mass/Vol]203 mg/vPUbll86-463YmrdppMedina HospitalComment on above:Performed By: #### [id number] #### [facility] [address] [facility], [place] [address]Dglagrgfi [Moles/Vol]3.8 mmol/LNormal3.5-5.3FCoshocton Regional Medical CenterComment on above:Performed By: #### [id number] #### [facility] [address] [place] [address]Zogkxa [Moles/Vol]137 mmol/JCvzqwb351-928LymhocMedina HospitalComment on above:Performed By: #### [id number] #### [facility] [address] [place] [address]Czig nitrogen [Mass/Vol]14 mg/dLNormal5-21[facility] HospitalComment on above:Performed By: #### [id number] #### [facility] [address] [place] [address] 887[address]Mrlg nitrogen/Creatinine [Mass ratio]16 No KcgobIfpmlg87-92 [facility] HospitalComment on above:Performed By: #### [id number] #### [facility] [address] [place] [address] 138[address]ETY w/ Auto Diffon 68-94-5001Pvmvfrlns/100 WBC (Bld)0.5 %Normal 0.0-2.0[facility] HospitalComment on above:Performed By: #### [id number] #### [facility] [address] [place] [address] 485[address]Jglugjwss/Leukocytes Auto (Bld) [Pure # fraction]0.0 E9/LNormal 0.0-0.2FCoshocton Regional Medical CenterComment on above:Performed By: #### [id number] #### [facility] [address] [place] [address]Nfyilwdtxsy (Bld) [#/Vol]0.1 E9/LNormal0.0-0.5FCoshocton Regional Medical CenterComment on above:Performed By: #### [id number] #### [facility] [address] [place] [address]Potpjwhsrup/100 WBC (Bld)1.9 %Normal0.0-8.0[facility] HospitalComment on above:Performed By: #### [id number] #### [facility] [address] [place] [address] 77[address]Ievettizpwq distribution width (RBC) [Ratio]13.4 %Normal 10.9-14.2FCoshocton Regional Medical CenterComment on above:Performed By: #### [id number] #### [facility] [address] [place], [place] [address]Nzlrckuvln (Bld) [Volume fraction]47.2 %Yhmlyk54.7-49.0[facility] HospitalComment on above:Performed By: #### [id number] #### [facility] [address] [place], [place] [address]Xuqfzpcywm (Bld) [Mass/Vol]16.5 g/cPFslugo05.5-17.5FCoshocton Regional Medical CenterComment on above:Performed By: #### [id number] #### [facility] [address] [place] [address]Akdijjkkcjx (Bld) [#/Vol]1.7 E9/LNormal1.0-4.0[facility] HospitalComment on above:Performed By: #### [id number] #### [facility] [address] [place] [address] 527[address]Gwtpfocbafj/100 WBC (Bld)25.0 %Ipmdpk83.0-50.0[facility] HospitalComment on above:Performed By: #### [id number] #### [facility] [address] [place], [place] [address]GCE (RBC) [Entitic mass]30.2 akHktrio65.0-34.0[facility] HospitalComment on above:Performed By: #### [id number] #### [facility] [address] [place], [place] [address]VMRL (RBC) [Mass/Vol]34.9 g/tILabvmi29.4-36.0[facility] HospitalComment on above:Performed By: #### [id number] #### [facility] [address] [place], [place] [address]PEE (RBC) [Entitic vol]86.5 iRJbzddx13.0-100.0[facility] HospitalComment on above:Performed By: #### [id number] #### [facility] [address] [place] [address]37[address]Whywkncld (Bld) [#/Vol]0.5 E9/LNormal0.2-1.0[facility] HospitalComment on above:Performed By: #### [id number] #### [facility] [address] [place] [address] 54[address]Kkjblsqfcva (Bld) [#/Vol]4.5 E9/LNormal2.0-7.5FCoshocton Regional Medical CenterComment on above:Performed By: #### [id number] #### [facility] [address] [place] [address] 16773Dcqtyqkkjoo/100 WBC (Bld)65.3 %Hfajgi36.0-75.0[facility] HospitalComment on above:Performed By: #### [id number] #### [facility] [address] [place] [address] 16[address]Oyyxresi mean volume (Bld) [Entitic vol]8.0 fLNormal6.4-10.8 [facility] HospitalComment on above:Performed By: #### [id number] #### [facility] [address] [place] [address] 20872Lftvpnqwy (Bld) [#/Vol]231.0 E9/PBopnlz998.0-500.0[facility] HospitalComment on above:Performed By: #### [id number] #### [facility] [address] [place] [address]27[address]JBO (Bld) [#/Vol]5.5 E12/LNormal4.3-5.9[facility] HospitalComment on above:Performed By: #### [id number] #### [facility] [address] [place] [address] 380[address]KYK corrected for nucl RBC Auto (Bld) [#/Vol]6.9 E9/LNormal 4.0-11.0[facility] HospitalComment on above:Performed By: #### [id number] #### [facility] [address] [place], [place] [address]SHOHKSVOISrekrqk By: Juan Chicas on 70-19-5099JWD Username MARI NJInvalid Interpretation CodeFT POC SubsectionSodium [Moles/Vol] 116289258 mmol/LInvalid Interpretation CodeFTMC POC SubsectionSodium [Moles/Vol] 824439518416 mmol/LInvalid Interpretation CodeFT POC SubsectionGlucose [Mass/Vol]213 mg/iDZkym42 - 99 mg/dLFTMC POC SubsectionComment on above:Result Comment: Cleaned MeterPO UsernameARLavon BALBUENAvalid Interpretation CodeFTMC POC SubsectionSodium [Moles/Vol]386723915 mmol/LInvalid Interpretation CodeFTMC POC SubsectionSodium [Moles/Vol]237381413615 mmol/LInvalid Interpretation Code FTMC POC SubsectionCHEMISTRYOrdered By: SYSTEM SYSTEM on 12-41-2178Ujfuzpar HS 8.20 pg/mLLow15.90 - 38.40 pg/mLRemisol ChemComment on above:Interpretive Data: The 95% CI (Confidence Interval) PPV (Positive Predictive Value) for myocardial infarction in females is 38 pg/mL, in males 51 pg/mL. The results should be used in conjunction withclinical conditions of myocardial infarction. (Access High Sensitivity Troponin I Instructions For Use, Satish Claudia, January 2018)Albumin [Mass/Vol]4.2 g/dLNormal3.3 - 5.0 gm/dLRemisol Chem Albumin/Globulin [Mass ratio]1.4 {ratio}Normal1.1 - 2.2Remisol ChemALP [Catalytic activity/Vol]93 [iU]/cJnjkil00 - 98 Int._Unit/LRemisol ChemALT No additional P-5'-P [Catalytic activity/Vol]41 [iU]/dNormal6 - 46 Int._Unit/L Remisol ChemAnion gap [Moles/Vol]11 mmol/LNormal6 - 16 mEq/LRemisol ChemAST [Catalytic activity/Vol]19 [iU]/dNormal5 - 43 Int._Unit/LRemisol ChemBilirubin [Mass/Vol]0.6 mg/dLNormal0.0 - 1.1 mg/dLRemisol ChemBilirubin.direct [Mass/Vol] 0.1 mg/dLNormal0.0 - 0.4 mg/dLRemisol ChemBilirubin.indirect [Mass or moles/Vol] 0.5 mg/dLNormal0.1 - 0.9 mg/dLRemisol ChemCalcium [Mass/Vol]8.6 mg/dLLow8.9 - 11.1 mg/dLRemisol ChemChloride [Moles/Vol]104 mmol/EVgdojp887 - 111 mmol/L Remisol ChemCO2 [Moles/Vol]26 mmol/LFjkhrj26 - 31 mmol/LRemisol ChemCreatinine [Mass/Vol]0.9 mg/dLNormal0.5 - 1.3 mg/dLRemisol FzadlZZL45 mL/min/1.73 m6Efuafk >=59mL/min/1.73 o6Yzjlmtg ChemGlobulin (S) [Mass/Vol]3.0 g/dLNormal1.4 - 4.0 gm/dLRemisol ChemGlucose [Mass/Vol]203 mg/oZKjhd64 - 199 mg/dLRemisol ChemLipase [Catalytic activity/Vol]17 U/KOrogwk52 - 58 unit/LRemisol ChemPotassium [Moles/Vol]3.8 mmol/LNormal3.5 - 5.3 mmol/LRemisol ChemProtein [Mass/Vol]7.2 g/dLNormal6.0 - 7.8 gm/dLRemisol ChemSodium [Moles/Vol]137 mmol/GDnitla572 - 145 mmol/LRemisol ChemTroponin HS8.20 pg/mLLow15.90 - 38.40 pg/mLRemisol Chem Comment on above:Interpretive Data: The 95% CI (Confidence Interval) PPV (Positive Predictive Value) for myocardial infarction in females is 38 pg/mL, in males 51 pg/mL. The results should be used in conjunction withclinical conditions of myocardial infarction. (Access High Sensitivity Troponin I Instructions For Use, Satish [place], January 2018)Urea nitrogen [Mass/Vol]14 mg/dLNormal5 - 21 mg/dLRemisol ChemUrea nitrogen/Creatinine [Mass ratio]16 mg/qoBwxxzg48 - 20Remisol ChemCapillary Glucose POCOrdered By: Lab ROPUser on 75-38-5932Wuctvsw [Mass/Vol]144 mg/dLWar [facility] 55-99[facility] POC SubsectionComment on above:Result Comment: Notified RN/MDPerformed By: #### [id number] #### [facility] [address] [place] [address] 25[address]Vpkwekhze Glucose POCon 17-71-4970Ldhhtvf [Mass/Vol]213 mg/dL Mtqr90-20EvqznwMedina HospitalComment on above:Result Comment: Cleaned MeterPerformed By: #### [id number] #### [facility] [address] [place] [address] 80[address]ZF Clinical Summaryon [id number] Clinical SummaryED Clinical Summary [address] [address] ED Clinical Summary Person Information Name: RIC BERRY/[facility] Age: 64 Years : 1960 Sex: Male Language: Iranian PCP: CHRISTOPHER WU DO Marital Status: Single Phone: [phone] Visit Id: Visit Reason: Neurologic problem; Abdominal pain; Nausea; Hyperglycemia; RIGHT ARM TINGLINESS, RIGHT FACIAL NUMBNESS, HYPERGYLCEMIA Speciality: Acuity: 2 Enc Type: Emergency Med Service: Emergency Arrival: 09/17/2024 16:28:20 Discharge: 09/17/2024 19:19:21 LOS: 000 02:51 Checkin: 09/17/2024 16:28:20 Checkout: 09/17/2024 19:19:21 Dispo Type: Home (Routine DC) EVENTS: Event Name Event Status Request Date/Time Start Date/Time Complete Date/Time Arrive Complete 09/17/2024 16:28:20 09/17/2024 16:28:20 09/17/2024 16:28:20 Document Home Meds Request 09/17/2024 16:28:20 Triage Complete 09/17/2024 16:28:20 09/17/2024 16:39:04 09/17/2024 16:39:04 Bed Assign Complete 09/17/2024 16:41:10 09/17/2024 16:41:10 09/17/2024 16:41:10 Dr Exam Complete 09/17/2024 16:41:10 09/17/2024 16:41:53 09/17/2024 16:41:53 RN Exam Complete 09/17/2024 16:41:10 09/17/2024 17:03:44 09/17/2024 17:03:44 Registration Complete 09/17/2024 16:41:53 09/17/2024 17:04:47 09/17/2024 17:04:47 Dr Exam Complete 09/17/2024 16:42:58 09/17/2024 16:42:58 09/17/2024 16:42:58 Pending Labs Complete 09/17/2024 16:57:19 09/17/2024 16:57:19 09/17/2024 16:57:19 EKG Complete 09/17/2024 17:01:52 09/17/2024 17:26:11 Pending Labs Complete 09/17/2024 17:01:52 09/17/2024 18:54:55 Lab Complete 09/17/2024 17:01:52 09/17/2024 17:55:26 Patient Care Complete 09/17/2024 17:01:52 09/17/2024 17:04:49 X-Ray Complete 09/17/2024 17:01:52 09/17/2024 17:30:13 09/17/2024 17:43:35 Reg Complete Request 09/17/2024 17:04:47 Reg Bed Request Complete 09/17/2024 17:04:47 09/17/2024 17:04:47 09/17/2024 17:04:47 Pending Labs Cancel 09/17/2024 17:12:14 09/17/2024 17:21:56 Lab Cancel 09/17/2024 17:12:14 09/17/2024 17:21:56 CT Complete 09/17/2024 17:12:14 09/17/2024 17:21:50 09/17/2024 17:46:14 Pending Labs Complete 09/17/2024 17:21:33 09/17/2024 17:21:33 09/17/2024 17:55:26 Lab Complete 09/17/2024 17:21:33 09/17/2024 17:21:33 09/17/2024 17:55:26 Pending Labs Complete 09/17/2024 17:22:25 09/17/2024 17:22:25 09/17/2024 17:55:26 Lab Complete 09/17/2024 17:22:25 09/17/2024 17:22:25 09/17/2024 17:55:26 Wet Read Complete 09/17/2024 17:43:35 09/17/2024 17:44:57 09/17/2024 17:44:57 Pending Labs Complete 09/17/2024 18:22:02 09/17/2024 18:22:02 09/17/2024 18:22:03 Pending Labs Complete 09/17/2024 18:40:07 09/17/2024 18:40:07 09/17/2024 18:40:08 Discharge Complete 09/17/2024 19:09:21 09/17/2024 19:19:27 09/17/2024 19:19:27 Transfer Complete 09/17/2024 19:19:27 09/17/2024 19:19:27 09/17/2024 19:19:27 ADDRESS: [address] [place] [id number] PHYS DOC NOTES: Addendum by Sergo Forde DO on September 17, 2024 19:09:51 EDT MEDICAL INFORMATION: Prescriptions Given: New Medications [id number], [address], [place] [id number], [phone] amoxicillin-clavulanate (Augmentin 875 mg-125 mg Tab) 1 Tablets By Mouth 2 times a day for 7 Days. Refills: 0. Medications to Continue with No Changes Other Medications alprazolam (Xanax 0.5 mg Tab) 1 Tablets [...] Tablets By Mouth every day. PATIENT EDUCATION INFORMATION: Instructions: Sinus Infection, Adult; Hyperglycemia, Nlbj-di-Hsau; Dizziness, Roiz-bs-Kykv Follow up: With: Address: When: CHRISTOPHER WU [address] [place] [address] [place]le (1) In 3 days DIAGNOSIS: Dizziness; Hyperglycemia; SinusitisNormalFisher Gregg Medical CenterED Note-Physicianon [id number] Note-PhysicianED Note-Physician Basic Information Time Seen: Sergo Forde DO 09/17/2024 16:42 Chief Complaint Pt presents to ED with complaints of ABD pain, nausea, hyperglycemia, body aches, intermittent numbness into right face and arm xmonths. History of Present Illness 64 male presents emergency department with some dizziness and hyperglycemia. Patient states that hejust does not feel well he feels like something is off. He states over the last several days he hashad some generalized malaise and some dizziness. he denies any chest pain but the does state that over the last several days he has had some pressure intermittently. He also describes a fullness through his abdomen like he ate too much but he states he did not eat too much. He has no urinary symptoms he has no headache. He does have numbness to the right upper extremity and states this has been ongoing for several months this is not a new problem today but denies any weakness. No other aggravating or relieving factors no other associated symptoms no other prior treatments or complaints. Family: Reviewed and noncontributory Social: lives at home Review of systems negative unless otherwise specified in the HPI. Review of Systems Constitutional: no fever, no chills, moderate fatigue, no changes in sleep, night sweats Respiratory: mild shortness of breath, no cough, no orthopnea, no wheezing Cardiovascular: no chest pain, mild palpitations, no edema Gastrointestinal: no nausea, no vomiting, no diarrhea, no GI bleeding Genitourinary: no dysuria, no hematuria, no discharge, no pain Musculoskeletal: no back pain, no trauma, no muscle pain Neurologic: mild dizziness, mild numbness, mild tingling Additional ROS info: Except as noted in the above Review of Systems and in the History of Present Illness all other systems have been reviewed and are negative or noncontributory. Physical Exam Vitals & Measurements T: 36.4 ???C(Oral) HR: 84(Peripheral) RR: 18 BP: 156/90 SpO2: 98% HT: 175 cm WT: 96.0 kg BMI: 31.35 General: alert, no acute distress. Head: no general: The patient appears well and in no apparent distress. Patient is resting comfortably on cart. Skin: Warm, dry, no pallor noted. Head: Normocephalic, atraumatic Neck: No JVD Eye: PERRLA, EOMI ENT: Moist mucus membranes Cardiovascular: Regular rate normal peripheral perfusion Respiratory: No respiratory distress no accessory muscle use no obvious audible wheezing Chest Wall: no deformity Musculoskeletal: normal ROM, no deformity, no swelling GI: Soft no obvious distention. No rebound or rigidity. No guarding. No tenderness. Neurological: A&O moves all extremities equal strength and symmetry Psychiatric: Cooperative and appropriate Procedure Heart Score for Major Cardiac Event History: Example factors for history - pattern of chest pain, onset, duration, relation with exercise, stress or cold, localization, concominant symptoms. reaction to sublingual nitrates, [] Highly suspicious +2 [] Moderately suspicious +1 [x] Slightly suspicious 0 EKG: [] Significant ST-Depression +2 [] Non specific repolarization disturbance +1 [x] Normal 0 Age: [] >= 65 +2 [x] 45-65 + 1 [] <45 0 Risk Factors: (HLD, HTN, DM, Cigarette Smoking, Pos Family Hx, Obesity) [] >3 risk factors or hx of atheroslerotic disease + 2 [x] 1-2 risk factors + 1 [] No risk factors known 0 Troponin: [] >= 3X normal + 2 [] 1-3X normal + 1 [x] <= Normal 0 [x] 0-3 Points 0.9 - 1.7% risk of major adverse cardiac event in 6 weeks [] 4-6 Points 12-16.6% risk of major adverse cardiac event in 6 weeks [] 7-10 Points 50-65% risk of major adverse cardiac event in 6 weeks [] 0-3 Points with 2 sets of negative cardiac markers <1% risk of major adverse cardiac event in30 days. Medical Decision Making Workup in the ER has been reviewed and noted. Initial workup here is benign pending repeat troponin. CT scan read by the telemetry radiologist as no acute bleed or other significant intracranial findings however the patient does have mucosal thickening consistent with possibility of sinusitis. Ultimately patient will be signed out to the oncoming physician for repeat troponin and final disposition. Assessment/Plan Dizziness (R42: Dizziness and giddiness) Orders: Basic Metabolic Panel Capillary Glucose POC CBC w/ Auto Diff CT Head or Brain w/o Contrast ECG 12 Lead Adult eGFR Extra Blue Tube Extra SST Tube Hepatic Function Panel Lipase Level Saline Lock Insert Troponin 0 Hr. Troponin 1 Hr. UA with Cult Rflx XR Chest Single View Disposition Plan Discharge Prescription List Prescriptions No active prescription medications Follow-up No qualifying data available Attestation Patient was treated and evaluated by the (more content not included)...Normal [facility]Comment on above:Result Comment: Electronically Signed By: Sergo Forde DO\.tay\Date and Time Signed: 09/17/24 19:10EDTED Patient Summaryon [id number] Patient SummaryED Patient Summary [address] [address] Patient Discharge Instructions Person Information Name: RIC BERRY Age: 64 Years Arrival Date: 09/17/2024 16:28:20 Discharge Diagnosis: Dizziness; Hyperglycemia; Sinusitis Primary Care Physician: CHRISTOPHER WU DO Provider Information Primary Provider: Sergo Forde DO Advanced Media Production Operator:None The exam and treatment you received in the Emergency Department were for an urgent problem and are not intended as complete care. It is important that you follow up with a doctor, nurse practitioner,or physician???s ortho assistant for ongoing care. If your symptoms become worse or you do not improve asexpected and you are unable to reach your usual health care provider, you should return to the Emergency Department. We are available 24 hours a day. RIC BERRY has been given the following list of patient education materials, prescriptions and follow-up instructions: Follow-up Instructions: With: Address: When: CHRISTOPHER WU [address] [phone] Business (1) In 3 days In the event that this physician does not participate in your insurance network, please consult with your insurance company to find a nearby participating provider. Patient Education Materials: Sinus Infection, Adult; Hyperglycemia, Zbxs-ug-Ahgf; Dizziness, Trpo-qg-Thhd A MESSAGE TO ALL PATIENTS REGARDING OPIOIDS PRESCRIPTION OPIOIDS: WHAT YOU NEED TO KNOW Prescription opioids can be used to help relieve fnanggmr-cx-wzdlok pain and are often prescribed following a surgery or injury, or for certain health conditions. These medications can be an important part of the treatment but also come with serious risks. It is important to work with your healthcare provider to make sure you are getting the safest, most effective care. WHAT ARE THE RISKS AND SIDE EFFECTS OF OPIOID USE? Prescription opioids carry serious risks of addiction and overdose, especially with prolonged use. An opioid overdose, often marked by slowed breathing, can cause sudden . The use of prescription opioids can have a number of side effects as well, even when taken as directed: ??? Tolerance???meaning you might need to take more of the medication for the same pain relief ??? Physical dependence???meaning you have symptoms of withdrawal when a medication is stopped ??? Increased sensitivity to pain ??? Constipation ??? Nausea, vomiting, and dry mouth ??? Sleepiness and dizziness ??? Confusion ??? Depression ??? Low levels of testosterone that can result in lower sex drive, energy, and strength ??? Itching and sweating RISKS ARE GREATER WITH: ??? History of drug misuse, substance use disorder, or overdose ??? Mental health conditions (such as depression or anxiety) ??? Sleep apnea ??? Older age (65 years and older) ??? Avoid alcohol while taking prescription opioids. Also, unless specifically advised by your health care provider, medications to avoid include: ??? Benzodiazepines (such as Xanax or Valium) ??? Muscle relaxants (such as Soma or Flexeril) ??? Hypnotics (such as Ambien or Lunesta) ??? Other prescription opioids KNOW YOUR OPTIONS Talk to your health care provider about ways to manage your pain that don???t involve prescription opioids. Some of these options may actually work better and have fewer risks and side effects. Options may include: ??? Pain relievers such as acetaminophen, ibuprofen, and naproxen ??? Some medication that are also used for depression or seizures ??? Physical therapy and exercise ??? Cognitive behavioral therapy, a psychological, goal-directed approach, in which patients learn how to modify physical, behavioral, and emotional triggers of pain and stress. IF YOU ARE PRESCRIBED OPIOIDS FOR PAIN: ??? Never take opioids in greater amounts or more often than prescribed. ??? Follow up with your primary health care provider. o Work together to create a plan on how to manage your pain. o Talk about ways to help manage your pain that don???t involve prescription opioids. o Talk about any and all concerns and side effects. ??? Help prevent misuse and abuse o Never sell or share prescription opioids. o Never use another person???s prescription opioids. ??? Store prescription opioids in a secure place and out of reach of others (this may include visitors, children, friends, and family). ??? Safely dispose of unused prescription opioids: Find your community drug take-back program or your pharmacy mail-back program, or flush them down the toilet, following guidance from the Food and Drug Administration (www.fda.gov/Drugs/ResourcesForYou). ??? Visit www.cdc.gov/drugoverdose to learn about the risks of opioids abuse and overdose. ??? If you believe you may be struggling with addiction, tel (more content not included)...[facility] Private HospitalKarel Sarabia 28-85-5166Vany Collected PlasmaYesInvalid Interpretation [facility] Healthcare CenterComment on above:Performed By: #### [id number] #### [facility] [address] [place], [place] [address]PVEHFEJNUPGykcadu By: SYSTEM SYSTEM on 69-16-2781Zcjhensww/100 WBC (Bld)0.5 %Normal0.0 - 2.0 %Remisol HemeBasophils/Leukocytes Auto (Bld) [Pure # fraction]0.0 E9/LNormal0.0 - 0.2 E9/LRemisol HemeEosinophils (Bld) [#/Vol]0.1 E9/LNormal0.0 - 0.5 E9/LRemisol HemeEosinophils/100 WBC (Bld)1.9 %Normal0.0 - 8.0 %Remisol HemeErythrocyte distribution width (RBC) [Ratio]13.4 %Mphaui86.9 - 14.2 %Remisol HemeHematocrit (Bld) [Volume fraction]47.2 %Gvpqjr63.7 - 49.0 % Remisol HemeHemoglobin (Bld) [Mass/Vol]16.5 g/lYBrlhuv84.5 - 17.5 gm/dLRemisol HemeLymphocytes (Bld) [#/Vol]1.7 E9/LNormal1.0 - 4.0 E9/LRemisol Heme Lymphocytes/100 WBC (Bld)25.0 %Zvazzg63.0 - 50.0 %Remisol HemeMCH (RBC) [Entitic mass]30.2 zaJidxdi48.0 - 34.0 pgRemisol HemeMCHC (RBC) [Mass/Vol]34.9 g/dL Mctkmm05.4 - 36.0 gm/dLRemisol HemeMCV (RBC) [Entitic vol]86.5 vVVaibxl81.0 - 100.0 fLRemisol HemeMonocytes (Bld) [#/Vol]0.5 E9/LNormal0.2 - 1.0 E9/LRemisol HemeMonocytes/100 WBC (Bld)7.3 %Normal4.0 - 14.0 %Remisol HemeNeutrophils (Bld) [#/Vol]4.5 E9/LNormal2.0 - 7.5 E9/LRemisol HemeNeutrophils/100 WBC (Bld)65.3 % Jlhqew07.0 - 75.0 %Remisol HemePlatelet mean volume (Bld) [Entitic vol]8.0 fL Normal6.4 - 10.8 fLRemisol HemePlatelets (Bld) [#/Vol]231.0 E9/WMpxgmo558.0 - 500.0 E9/LRemisol HemeRBC (Bld) [#/Vol]5.5 E12/LNormal4.3 - 5.9 E12/LRemisol HemeWBC corrected for nucl RBC Auto (Bld) [#/Vol]6.9 E9/LNormal4.0 - 11.0 E9/L Remisol HemeHep Func Panelon 11-94-7806Bppevlm [Mass/Vol]4.2 g/dLNormal3.3-5.0 [facility] HospitalComment on above:Performed By: #### [id number] #### [facility] [address] [place], [place] [address]Vcbxkvv/Globulin (S) [Mass conc ratio]1.4Wryqfl3.1-2.2FCoshocton Regional Medical CenterComment on above:Performed By: #### [id number] #### [facility] [address] [place], [place] [address]PQU [Catalytic activity/Vol]93 Int._Unit/XHwwmpf42-34YgomtiMedina HospitalComment on above:Performed By: #### [id number] #### [facility] [address] [place], [place] [address]LFQ No additional P-5'-P [Catalytic activity/Vol]41 Int._Unit/L Normal6-46[facility] HospitalComment on above:Performed By: #### [id number] #### [facility] [address] [place], [place] [address]PYF [Catalytic activity/Vol]19 Int._Unit/LNormal5-43[facility] HospitalComment on above:Performed By: #### [id number] #### [facility] [address] [place], [place] [address]Bylwhgkzt [Mass/Vol]0.6 mg/dLNormal0.0-1.1FCoshocton Regional Medical CenterComment on above:Performed By: #### [id number] #### [facility] [address] [place] [address]Kmkbzkzrw.direct [Mass/Vol]0.1 mg/dLNormal0.0-0.4FCoshocton Regional Medical CenterComment on above:Performed By: #### [id number] #### [facility] [address] [place] [address]Ruhtjkjer.indirect [Mass or moles/Vol]0.5 mg/dLNormal0.1-0.9 [facility] HospitalComment on above:Performed By: #### [id number] #### [facility] [address] [place] [address]Selcixwi (S) [Mass/Vol]3.0 g/dLNormal1.4-4.0[facility] HospitalComment on above:Performed By: #### [id number] #### [facility] [address] [place] [address]Wpvvjsa [Mass/Vol]7.2 g/dLNormal6.0-7.8[facility] HospitalComment on above:Performed By: #### [id number] #### [facility] [address] [place] [address]Bejoqe Levelon 74-67-9203Vlgnom [Catalytic activity/Vol]17 U/L Yvsogx72-01MqwxfqMedina HospitalComment on above:Performed By: #### [id number] #### [facility] [address] [place] [address]Qtokhutx 0 Hr.on 69-45-2949Znbtjyqh HS8.20 pg/mLLow15.90-38.40 [facility] HospitalComment on above:Result Comment: The 95% CI (Confidence Interval) PPV (Positive Predictive Value) for myocardial infarction in females is 38 pg/mL, in males 51 pg/mL. The results should be used in conjunction with clinical conditions of myocardial infarction. (Access High Sensitivity Troponin I Instructions For Use, [employer], January 2018)Performed By: #### [id number] #### [facility] [address] [place], [place] [address]Qajywknj 1 Hr.on 37-62-1406Ukqkcuka HS8.20 pg/mLLow15.90-38.40 [facility] HospitalComment on above:Order Comment: 1758Result Comment: The 95% CI (Confidence Interval) PPV (Positive Predictive Value) for myocardial infarction in females is 38 pg/mL, in males 51 pg/mL. The results should be used in conjunction with clinical conditions of myocardial infarction. (Access High Sensitivity Troponin I Instructions For Use, [employer], January 2018)Performed By: #### [id number] #### [facility] [address] [place], [place] [address]MA with Cult Rflxon 00-64-9344Jlinvszwr Ql (U)NegativeNormal NegativeMedina HospitalComment on above:Performed By: #### [id number] #### [facility] [address] [place], [place] [address]Cpsoxri (U)ClearNormalClearMedina HospitalComment on above:Performed By: #### [id number] #### [facility] [address] [place], [place] [address]Irhgl (U)YellowNormalYellowMedina HospitalComment on above:Result Comment: Microscopic readings are only performed on those samples that meet specific criteria set forth by [facility].Performed By: #### [id number] #### [facility] [address] [place], [place] [address]Vodrshi Ql (U)2+ mg/dLAbnormalNegativeMedina HospitalComment on above:Performed By: #### [id number] #### [facility] [address] [place], [place] [address]Skrphoippo Auto test strip (U) [Mass/Vol]NegativeNormalNegative [facility] HospitalComment on above:Performed By: #### [id number] #### [facility] [address] [place] [address]Hybpiqi Auto test strip Ql (U)NegativeNormalNegativeMedina HospitalComment on above:Performed By: #### [id number] #### [facility] [address] [place] [address]Puwuggjyy esterase Auto test strip Ql (U)NegativeNormalNegative [facility] HospitalComment on above:Performed By: #### [id number] #### [facility] [address] [place] [address]Tgzlvhm Auto test strip Ql (U)NegativeNormalNegParkview Health Montpelier HospitalComment on above:Performed By: #### [id number] #### [facility] [address] [place] [address]mW (U)7.0 [pH]Invalid Interpretation Code5.0-9.0[facility] HospitalComment on above:Performed By: #### [id number] #### [facility] [address] [place] [address]Ptditqm Ql (U)Quorum HealthrmalNegParkview Health Montpelier Hospital Comment on above:Performed By: #### [id number] #### [facility] [address] [place] [address]Kuimtymf gravity (U) [Rel density]1.023Invalid Interpretation Code1.005-1.030[facility] HospitalComment on above:Performed By: #### [id number] #### [facility] [address] [place] [address]Mnldxxgwsome (U) [Mass/Vol]2 mg/dLAbnoalPremier Health Upper Valley Medical CenterComment on above:Performed By: #### [id number] #### [facility] [address] [place] [address]Ygmz of Urine collection methodClean CatchNoBellevue HospitalComment on above:Performed By: #### [id number] #### [facility] [address] [place], [place] [address]YWNNQOTKLSPapushc By: SYSTEM SYSTEM on 48-64-6540Sjkgeejzh Ql (U)NegativeNormalNegativemg/dLFT UA Auto SSClarity (U)Clear (09/17/24 5:45 PM)NormalClearFAMERICAN HOSPITAL ASSOCIATION UA Auto SSColor (U)Yellow 1 (09/17/24 5:45 PM)NormalYellowBROOKHAVEN [facility]OS[facility] UA Auto SSComment on above:Interpretive Data: Microscopic readings are only performed on those samples that meet specific criteria set forth by [facility].Glucose Ql (U)2+ mg/dLInvalid Interpretation CodeNegativemg/dLFT UA Auto SSHemoglobin Auto test strip (U) [Mass/Vol]NegativeNormalNegativemg/dLFT UA Auto SSKetones Auto test strip Ql (U)NegativeNormalNegativemg/dLFT UA Auto SSLeukocyte esterase Auto test strip Ql (U)NegativeNormalNegativeLeu/uLFT UA Auto SSNitrite Auto test strip Ql (U)NegativeNormalNegativemg/dLFT UA Auto SSpH (U)7.0 *NA* (09/17/24 5:45 PM)Invalid Interpretation Code5.0 - 9.0[facility] UA Auto SSProtein Ql (U)NegativeNormalNegativemg/dLFT UA Auto SSSpecific gravity (U) [Rel density] 1.023 *NA* (09/17/24 5:45 PM)Invalid Interpretation Code1.005 - 1.030[facility] UA Auto SS Urobilinogen (U) [Mass/Vol]2 mg/dLInvalid Interpretation CodeNegativemg/dLBROOKHAVEN HOSPITAL – [place] UA Auto SSURINALYSISOrdered By: Sergo Forde on 25-19-4448AB Spec DescClean Catch (09/17/24 5:45 PM)NormalBROOKHAVEN HOSPITAL – [facility] UA Auto SS egFRon 46-86-7039jXYE42 mL/min/1.73 b7Ebfrlc>=59Fishmar [facility] CenterComment on above:Performed By: #### [id number] #### [facility] [address] [place], [place] [address]SG ABDOMEN (KUB) (SINGLE AP VIEW)on 35-74-7402ZW ABDOMEN (KUB) (SINGLE AP VIEW)EXAMINATION: ONE SUPINE XRAY VIEW(S) OF THE ABDOMEN [...] Signed by: Leroy Lawrence DO 04/26/24 Final resultNormalMerSaint Francis Hospital & Medical CenterXR Abdomen Single viewon 17-24-7196Bi definite renal or ureteral stones [facility] CONSOLIDATEDEXAMINATION: ONE SUPINE XRAY VIEW(S) OF THE ABDOMEN 04/25/2024 3:04 pm COMPARISON: October 23, 2023 HISTORY: ORDERING SYSTEM PROVIDED HISTORY: Ureteral calculus FINDINGS: Bowel gas pattern nonobstructed. Renal shadows partially obscured by bowel gas and fecal debris. No definite renal or ureteral stones. No acute osseous abnormality. [facility] Leroy Hitchcock DO - 04/26/2024 EXAMINATION: ONE SUPINE XRAY VIEW(S) OF THE ABDOMEN 04/25/2024 3:04 pm COMPARISON: October 23, 2023 HISTORY: ORDERING SYSTEM PROVIDED HISTORY: Ureteral calculus FINDINGS: Bowel gas pattern nonobstructed. Renal shadows partially obscured by bowel gas and fecal debris. No definite renal or ureteral stones. No acute osseous abnormality. IMPRESSION: No definite renal or ureteral stones BeegitXR Abdomen Single viewOrdered By: Leroy Lawrence on 59-56-7396Nrs [employer] Work Phone: XR Abdomen Single viewon 60-46-7468Jjvapoigs Study observation (narrative)BeegitBasophils Auto (Bld) [#/Vol]on 20-34-6877Kzpdaxbpm (Bld) [#/Vol]0.0 10 3/uL0.0-0.1Fire[facility] Regional Medical CenterBasophils (Bld) [#/Vol]Automated basophil count0.0-0.1FireDunlap Memorial HospitalBasophils/100 WBC Auto (Bld)on 63-32-8421Yjvefodiv/100 WBC (Bld) 0.5 %0.2-2.0[facility] NorthBasophils/100 WBC (Bld)Automated basophil %0.2-2.0[facility] NorthEosinophils/100 WBC Auto (Bld) on 12-74-5259Kqpvbpfdprn/100 WBC (Bld)1.9 %0.9-7.0[facility] NorthEosinophils/100 WBC (Bld)Automated eosinophil %0.9-7.0[facility] NorthErythrocyte distribution width Auto (RBC) [Ratio]on 01-29-2024 Erythrocyte distribution width (RBC) [Ratio]13.1 %11.0-15.0[facility] NorthErythrocyte distribution width (RBC) [Ratio]Erythrocyte distribution width [Ratio] by Automated count11.0-15.0[facility] NorthEstimated glomerular filtration rate (GFR) non- Americanon 22-61-1255ZZG/1.73 sq M.predicted among non-blacks MDRD (S/P/Bld) [Vol rate/Area]mL/min/{1.73_m2}>=60[facility] NorthGFR/1.73 sq M.predicted among non-blacks MDRD (S/P/Bld) [Vol rate/Area]Estimated glomerular filtration rate (GFR) non->=60[facility] Globulin Calc (S) [Mass/Vol]on 29-85-4220Hysbmuhy (S) [Mass/Vol]3.4 g/dL [facility] NorthGlobulin (S) [Mass/Vol]Serum globulin measurement by calculation (mass/volume)[facility] Hematocrit Auto (Bld) [Volume fraction]on 92-27-4063Bmxvnjbzdi (Bld) [Volume fraction]43.0 %42.0-54.0[facility] NorthHematocrit (Bld) [Volume fraction]Hematocrit [Volume Fraction] of Blood by Automated count 42.0-54.0[facility] NorthHemoglobin [Mass/volume] in Bloodon 84-10-4179Bsgxymbpyn (Bld) [Mass/Vol]15.2 g/dL14.0-18.0[facility] NorthHemoglobin (Bld) [Mass/Vol]Hemoglobin [Mass/volume] in Blood 14.0-18.0[facility] NorthLaboratory - Chemistry and Chemistry - challengeon 40-03-4715Gvmjjeh [Mass/Vol]3.7 g/dL3.4-5.0[facility] NorthALP [Catalytic activity/Vol]97 U/H52-898JrsyrygfjPremier Health Miami Valley Hospital NorthALT [Catalytic activity/Vol]48 U/Y82-93VpoabhbtrPremier Health [facility] North AST [Catalytic activity/Vol]17 U/D54-51OdmydmcyfPremier Health Miami Valley Hospital NorthComment on above:SLIGHTLY LIPEMICBilirubin [Mass/Vol]0.4 mg/dL0.2-1.0[facility] NorthCalcium [Mass/Vol]8.5 mg/dL8.5-10.1FChillicothe VA Medical CenterChloride [Moles/Vol]104 mmol/C71-726AkovumnzePremier Health Miami Valley Hospital NorthCO2 [Moles/Vol]24.3 mmol/L21.0-32.0[facility] NorthCreatinine [Mass/Vol]0.91 mg/dL0.70-1.30[facility] NorthGFR/1.73 sq M.predicted MDRD (S/P/Bld) [Vol rate/Area]mL/min/{1.73_m2}>=60[facility] NorthGlucose [Mass/Vol]236 mg/iDEssg85-374WdoazozqfPremier Health Miami Valley Hospital NorthComment on above:SLIGHTLY LIPEMICPotassium [Moles/Vol]3.9 mmol/L3.5-5.1 [facility] NorthComment on above:SLIGHTLY LIPEMICProtein [Mass/Vol]7.1 g/dL6.4-8.2FTrinity Health System Twin City Medical Centerodium [Moles/Vol]138 mmol/K918-994UwcivmfvnPremier Health Miami [facility] Hospital NorthUrea nitrogen [Mass/Vol]12.0 mg/dL 7.0-18.0[facility] NorthUrea nitrogen/Creatinine [Mass ratio] 13.2 mg/mgPremier Health Miami Valley Hospital NorthLaboratory - Hematology and Cell countson 49-98-0987Lcsdhvaw granulocytes/100 WBC (Bld)0.5 %0.0-0.5FChillicothe VA Medical CenterLeukocytes [#/volume] corrected for nucleated erythrocytes in Blood by Automated counon 85-19-3324BKB corrected for nucl RBC Auto (Bld) [#/Vol]6.4 10 3/uL4.0-11.0[facility] NorthWBC corrected for nucl RBC Auto (Bld) [#/Vol]Leukocytes [#/volume] corrected for nucleated erythrocytes in Blood by Automated coun4.0-11.0[facility] NorthLymphocytes Auto (Bld) [#/Vol]on 10-03-0552Yytxjooqwbh (Bld) [#/Vol]2.8 10 3/uL1.2-3.8[facility] NorthLymphocytes (Bld) [#/Vol]Lymphocytes [#/volume] in Blood by Automated count1.2-3.8[facility] NorthLymphocytes/100 WBC Auto (Bld)on 01-29-2024 Lymphocytes/100 WBC (Bld)43.3 %20.5-60.0[facility] Lymphocytes/100 WBC (Bld)Lymphocytes/100 leukocytes in Blood by Automated count 20.5-60.0[facility] Auto (RBC) [Entitic mass]on 16-43-5254DQL (RBC) [Entitic mass]30.1 pg25.9-34.0[facility] (RBC) [Entitic mass]MCH [Entitic mass] by Automated count25.9-34.0 [facility] HospitalHC Auto (RBC) [Mass/Vol]on 59-15-3180QUZK (RBC) [Mass/Vol]35.3 g/yDQvnf18.9-35.2FUK HealthcareHC (RBC) [Mass/Vol]MCHC [Mass/volume] by Automated qhstyErss59.9-35.2FUK HealthcareV Auto (RBC) [Entitic vol]on 94-97-4306LWL (RBC) [Entitic vol]85.1 fL80.0-94.0[facility] NorthMCV (RBC) [Entitic vol]MCV [Entitic volume] by Automated count80.0-94.0[facility] NorthMicroalbumin [Mass/volume] in Urineon 62-20-3070Sgvjtlv DL <= 20 mg/L (U) [Mass/Vol]mg/dL<=30.0[facility] NorthAlbumin DL <= 20 mg/L (U) [Mass/Vol]Microalbumin [Mass/volume] in Urine<=30.0[facility] NorthMonocytes Auto (Bld) [#/Vol]on 39-48-0821Itqnczjnw (Bld) [#/Vol]0.4 10 3/uL0.3-0.8[facility] NorthMonocytes (Bld) [#/Vol]Automated blood monocyte count0.3-0.8[facility] NorthMonocytes/100 WBC Auto (Bld)on 30-57-4455Hxlfqhsdf/100 WBC (Bld)6.3 %1.7-12.0[facility] NorthMonocytes/100 WBC (Bld)Automated monocyte %1.7-12.0[facility] NorthNeutrophils Auto (Bld) [#/Vol]on 22-45-7960Jtnrhlixjbd (Bld) [#/Vol]3.0 10 3/uL1.4-6.5FChillicothe VA Medical CenterNeutrophils (Bld) [#/Vol]Neutrophils [#/volume] in Blood by Automated count1.4-6.5FChillicothe VA Medical CenterNeutrophils/100 WBC Auto (Bld)on 01-29-2024 Neutrophils/100 WBC (Bld)47.5 %43.0-75.0[facility] Neutrophils/100 WBC (Bld)Automated neutrophil %43.0-75.0[facility] NorthNo Panel Informationon 31-91-8012Jcfopuyyhcl # (Auto)0.1 10 3/uL 0.0-0.7FChillicothe VA Medical CenterImmature Granulocyte # (Auto)0.03 10 3/uL0.00-0.03[facility] NorthPlatelet mean volume Auto (Bld) [Entitic vol]on 08-67-8146Hagsawpj mean volume (Bld) [Entitic vol]9.6 fL9.5-13.5 [facility] NorthPlatelet mean volume (Bld) [Entitic vol] Platelet mean volume [Entitic volume] in Blood by Automated count9.5-13.5 [facility] NorthPlatelets Auto (Bld) [#/Vol]on 01-29-2024 Platelets (Bld) [#/Vol]232 10 3/lZ027-178HnsuopoexPremier Health [facility] Hospital North Platelets (Bld) [#/Vol]Platelets [#/volume] in Blood by Automated -367 [facility] NorthRBC Auto (Bld) [#/Vol]on 61-62-7699KJG (Bld) [#/Vol]5.05 10 6/uL4.70-6.10[facility] NorthRBC (Bld) [#/Vol] Erythrocytes [#/volume] in Blood by Automated count4.70-6.10[facility] Centererum or plasma albumin/globulin mass ratioon 01-29-2024 Albumin/Globulin [Mass ratio]1.1 {ratio}[facility] Albumin/Globulin [Mass ratio]Serum or plasma albumin/globulin mass ratio [facility] Centererum or plasma anion gap determinationon 31-65-5097Myvsf gap [Moles/Vol]13.6 mmol/LFChillicothe VA Medical CenterAnion gap [Moles/Vol]Serum or plasma anion gap determinationPremier Health Miami [facility] Hospital NorthGlucose mean value [Mass/volume] in Blood Estimated from glycated hemoglobinon 32-44-3961Pwphalp glucose Estimated from glycated hemoglobin (Bld) [Mass/Vol]143 mg/dLPremier Health Miami [facility] Hospital NorthLaboratory - Hematology and Cell countson 64-37-9603DbS8n (Bld) [Mass fraction]6.6 %High4.5-6.2FChillicothe VA Medical CenterComment on above:ADA RECOMMENDED LIMIT 4.0 - 6.0ADA THERAPEUTIC TARGET < 7.0ACTION SUGGESTED> 7.0XR ABDOMEN (KUB) (SINGLE AP VIEW)on 28-63-3938YF ABDOMEN (KUB) (SINGLE AP VIEW)EXAMINATION: ONE SUPINE XRAY VIEW(S) OF THE ABDOMEN [...] Signed by: Andrea Frausto MD 10/24/23 Final resultNormalMercy The Institute Of LivingGlucose, Whole Bloodon 93-40-9150Wktakpp [Mass/Vol]220 mg/sHOdzl33 - [address]/dL[address] CHARLES HOSPITALInterpretation and review of laboratory resultsAbnoBlack Hills Surgery CenterGuidance-- during surgeryon 26-67-7213Wqrdbxcpv exam is complete. No Radiologist dictation. Please follow up with ordering provider. [facility] RIS CONSOLIDATEDBasophils Auto (Bld) [#/Vol]on 07-83-6803Gqbsqnznp (Bld) [#/Vol]0.0 10 3/uL0.0-0.1FChillicothe VA Medical CenterBasophils/100 WBC Auto (Bld)on 49-81-4562Fnuwwoefc/100 WBC (Bld)0.4 %0.2-2.0[facility] NorthEosinophils/100 WBC Auto (Bld)on 75-52-5897Smgcohnlwer/100 WBC (Bld)1.2 % 0.9-7.0[facility] NorthErythrocyte distribution width Auto (RBC) [Ratio]on 15-97-9128Mwmwlnmlxnk distribution width (RBC) [Ratio]13.0 % 11.0-15.0[facility] NorthEstimated glomerular filtration rate (GFR) non- Americanon 77-20-4076GCE/1.73 sq M.predicted among non-blacks MDRD (S/P/Bld) [Vol rate/Area]mL/min/{1.73_m2}>=60[facility] NorthGlobulin Calc (S) [Mass/Vol]on 21-88-3819Nusxaecw (S) [Mass/Vol]3.9 g/dL [facility] NorthHematocrit Auto (Bld) [Volume fraction]on 69-25-2472Spbfpgomkm (Bld) [Volume fraction]36.5 %42.0-54.0[facility] NorthHemoglobin [Mass/volume] in Bloodon 09-15-9302Miysrrivxz (Bld) [Mass/Vol]12.5 g/dL14.0-18.0[facility] NorthLaboratory - Chemistry and Chemistry - challengeon 08-02-7018Kbgwgty [Mass/Vol]2.4 g/dL 3.4-5.0[facility] NorthALP [Catalytic activity/Vol]64 U/L46-116 [facility] NorthALT [Catalytic activity/Vol]36 U/L16-63 [facility] NorthAST [Catalytic activity/Vol]16 U/L15-37 [facility] NorthBilirubin [Mass/Vol]0.5 mg/dL0.2-1.0[facility] NorthCalcium [Mass/Vol]8.1 mg/dL8.5-10.1FChillicothe VA Medical CenterChloride [Moles/Vol]105 mmol/G82-301AtgexfnfkPremier Health [facility] Hospital NorthCO2 [Moles/Vol]20.2 mmol/L21.0-32.0[facility] Creatinine [Mass/Vol]1.01 mg/dL0.70-1.30[facility] GFR/1.73 sq M.predicted MDRD (S/P/Bld) [Vol rate/Area]mL/min/{1.73_m2}>=60 [facility] NorthGlucose [Mass/Vol]215 mg/aX17-010RwnwzsctcPremier Health [facility] NorthPotassium [Moles/Vol]3.8 mmol/L3.5-5.1FChillicothe VA Medical CenterProtein [Mass/Vol]6.3 g/dL6.4-8.2FChillicothe VA Medical Center Sodium [Moles/Vol]139 mmol/Y358-139WdnroojbhPremier Health [facility] NorthUrea nitrogen [Mass/Vol]13.0 mg/dL7.0-18.0[facility] NorthUrea nitrogen/Creatinine [Mass ratio]12.9 mg/mgPremier Health [facility] North Laboratory - Hematology and Cell countson 19-30-3245Sdarxfre granulocytes/100 WBC (Bld)0.8 %0.0-0.5FChillicothe VA Medical CenterLeukocytes [#/volume] corrected for nucleated erythrocytes in Blood by Automated counon 80-57-9885GXW corrected for nucl RBC Auto (Bld) [#/Vol]7.3 10 3/uL4.0-11.0[facility] NorthLymphocytes Auto (Bld) [#/Vol]on 09-84-5652Dpwwlmganut (Bld) [#/Vol]1.5 10 3/uL1.2-3.8[facility] NorthLymphocytes/100 WBC Auto (Bld)on 77-05-2689Cdeuuvxiugy/100 WBC (Bld)21.2 %20.5-60.0[facility] NorthMCH Auto (RBC) [Entitic mass]on 64-97-2496XBT (RBC) [Entitic mass]29.4 pg25.9-34.0[facility] NorthMCHC Auto (RBC) [Mass/Vol]on 43-16-8207LXTN (RBC) [Mass/Vol]34.2 g/dL29.9-35.2FChillicothe VA Medical CenterMCV Auto (RBC) [Entitic vol]on 51-31-7886OVL (RBC) [Entitic vol] 85.9 fL80.0-94.0[facility] NorthMonocytes Auto (Bld) [#/Vol]on 64-91-2202Rklhykneq (Bld) [#/Vol]0.5 10 3/uL0.3-0.8[facility] NorthMonocytes/100 WBC Auto (Bld)on 92-42-0512Eiyzbtqkp/100 WBC (Bld)6.2 % 1.7-12.0[facility] NorthNeutrophils Auto (Bld) [#/Vol]on 18-07-3835Iihlrukmvok (Bld) [#/Vol]5.1 10 3/uL1.4-6.5FChillicothe VA Medical CenterNeutrophils/100 WBC Auto (Bld)on 39-00-6097Nuscrdslbad/100 WBC (Bld)70.2 % 43.0-75.0[facility] NorthNo Panel Informationon 09-04-2023 Eosinophils # (Auto)0.1 10 3/uL0.0-0.7FChillicothe VA Medical CenterImmature Granulocyte # (Auto)0.06 10 3/uL0.00-0.03[facility] Platelet mean volume Auto (Bld) [Entitic vol]on 12-42-9959Crfksmym mean volume (Bld) [Entitic vol]10.1 fL9.5-13.5FChillicothe VA Medical CenterPlatelets Auto (Bld) [#/Vol]on 91-28-5564Pjuyrdiuq (Bld) [#/Vol]189 10 3/eH681-516 [facility] NorthRBC Auto (Bld) [#/Vol]on 80-11-8175WQQ (Bld) [#/Vol]4.25 10 6/uL4.70-6.10[facility] Centererum or plasma albumin/globulin mass ratioon 27-69-7279Dqdouzx/Globulin [Mass ratio]0.6 {ratio} [facility] Centererum or plasma anion gap determinationon 94-39-2405Yahlx gap [Moles/Vol]17.6 mmol/LFChillicothe VA Medical Center Basophils Auto (Bld) [#/Vol]on 59-13-4622Carflkquq (Bld) [#/Vol]0.0 10 3/uL 0.0-0.1FChillicothe VA Medical CenterBasophils/100 WBC Auto (Bld)on 57-11-8119Jxxrxocea/100 WBC (Bld)0.2 %0.2-2.0[facility] Eosinophils/100 WBC Auto (Bld)on 74-82-6937Rixchzzbltl/100 WBC (Bld)0.2 %0.9-7.0 [facility] NorthErythrocyte distribution width Auto (RBC) [Ratio]on 17-22-7686Zmmoilmqxcf distribution width (RBC) [Ratio]12.8 %11.0-15.0 [facility] NorthEstimated glomerular filtration rate (GFR) non- Americanon 08-86-9608TWA/1.73 sq M.predicted among non-blacks MDRD (S/P/Bld) [Vol rate/Area]58 mL/min/{1.73_m2}>=60[facility] NorthGlobulin Calc (S) [Mass/Vol]on 37-12-8416Xjrwxwvf (S) [Mass/Vol]3.8 g/dL [facility] NorthHematocrit Auto (Bld) [Volume fraction]on 55-52-4934Dzomgrzewe (Bld) [Volume fraction]38.5 %42.0-54.0[facility] NorthHemoglobin [Mass/volume] in Bloodon 32-30-3647Jmymrvsybw (Bld) [Mass/Vol]13.1 g/dL14.0-18.0[facility] NorthLaboratory - Chemistry and Chemistry - challengeon 41-89-7961Hfznjgt [Moles/Vol]1.6 mmol/L 0.4-2.0[facility] NorthAlbumin [Mass/Vol]2.5 g/dL3.4-5.0 [facility] NorthALP [Catalytic activity/Vol]58 U/L46-116 [facility] NorthALT [Catalytic activity/Vol]42 U/L16-63 [facility] NorthAST [Catalytic activity/Vol]22 U/L15-37 [facility] NorthBilirubin [Mass/Vol]0.6 mg/dL0.2-1.0[facility] NorthCalcium [Mass/Vol]8.0 mg/dL8.5-10.1FChillicothe VA Medical CenterChloride [Moles/Vol]104 mmol/K29-879EjyqrqszyPrem[facility] Health [facility] NorthCO2 [Moles/Vol]24.3 mmol/L21.0-32.0[facility] Creatinine [Mass/Vol]1.27 mg/dL0.70-1.30[facility] GFR/1.73 sq M.predicted MDRD (S/P/Bld) [Vol rate/Area]mL/min/{1.73_m2}>=60 [facility] NorthGlucose [Mass/Vol]189 mg/vJ79-698ZzqudrmorPremier Health [facility] Hospital NorthPotassium [Moles/Vol]3.7 mmol/L3.5-5.1FChillicothe VA Medical CenterProtein [Mass/Vol]6.3 g/dL6.4-8.2FChillicothe VA Medical Center Sodium [Moles/Vol]140 mmol/M915-879TmgupdgoiPremier Health [facility] NorthUrea nitrogen [Mass/Vol]14.0 mg/dL7.0-18.0[facility] NorthUrea nitrogen/Creatinine [Mass ratio]11.0 mg/mgPremier Health [facility] North Laboratory - Hematology and Cell countson 42-36-7825Cboucrzt granulocytes/100 WBC (Bld)1.2 %0.0-0.5FChillicothe VA Medical CenterLeukocytes [#/volume] corrected for nucleated erythrocytes in Blood by Automated counon 43-97-4366JDH corrected for nucl RBC Auto (Bld) [#/Vol]13.0 10 3/uL4.0-11.0[facility] NorthLymphocytes Auto (Bld) [#/Vol]on 35-17-1191Tqcrtpzkpxp (Bld) [#/Vol]1.7 10 3/uL1.2-3.8[facility] NorthLymphocytes/100 WBC Auto (Bld)on 60-43-2564Fbuftkavfof/100 WBC (Bld)12.8 %20.5-60.0[facility] NorthMCH Auto (RBC) [Entitic mass]on 78-59-1381OPZ (RBC) [Entitic mass]29.2 pg25.9-34.0[facility] NorthMCHC Auto (RBC) [Mass/Vol]on 00-10-0002NDKQ (RBC) [Mass/Vol]34.0 g/dL29.9-35.2FChillicothe VA Medical CenterMCV Auto (RBC) [Entitic vol]on 15-67-7292SQG (RBC) [Entitic vol] 85.9 fL80.0-94.0[facility] NorthMonocytes Auto (Bld) [#/Vol]on 07-01-6972Rosgxpqlv (Bld) [#/Vol]0.9 10 3/uL0.3-0.8[facility] NorthMonocytes/100 WBC Auto (Bld)on 09-17-7984Pedklzwtv/100 WBC (Bld)7.2 % 1.7-12.0[facility] NorthNeutrophils Auto (Bld) [#/Vol]on 36-29-8756Nsvtqfizxzc (Bld) [#/Vol]10.2 10 3/uL1.4-6.5FChillicothe VA Medical CenterNeutrophils/100 WBC Auto (Bld)on 63-59-8203Txwpwkcmvnc/100 WBC (Bld)78.4 %43.0-75.0[facility] NorthNo Panel InformationOrdered By: Christopher Wu on 09-03-2023E coli Shiga Toxin EIAUniversity Hospitals Cleveland Medical Centeralmonella/Shigella ScreenPremier Health Miami [facility] Hospital NorthNo Panel Informationon 39-07-7077Athjarmzsdmwu Test CommentSee Adams County HospitalComment on above:Specimen Source: ST - Stool - Stool - 700.100 Stool Campylobacter Culture Res 1See commentPremier Health Miami [facility] North Comment on above:[facility],Eosinophils # (Auto)0.0 10 3/uL0.0-0.7FChillicothe VA Medical CenterImmature Granulocyte # (Auto)0.15 10 3/uL0.00-0.03 [facility] NorthPlatelet mean volume Auto (Bld) [Entitic vol]on 90-83-8679Xnehfnuk mean volume (Bld) [Entitic vol]9.8 fL9.5-13.5FChillicothe VA Medical CenterPlatelets Auto (Bld) [#/Vol]on 37-58-3495Bwqjjstjs (Bld) [#/Vol]186 10 3/kM428-393TgfuxfwqrPremier Health [facility] Hospital NorthRBC Auto (Bld) [#/Vol] on 99-79-6876RVB (Bld) [#/Vol]4.48 10 6/uL4.70-6.10[facility] Centererum or plasma albumin/globulin mass ratioon 00-44-3002Wgoxqil/Globulin [Mass ratio]0.7 {ratio}[facility] Centererum or plasma anion gap determinationon 79-06-6261Etall gap [Moles/Vol]15.4 mmol/LFChillicothe VA Medical CenterAutomated epithelial cells count in urine sediment (number/area) on 81-82-2053Lsvjvzksbk cells Auto (Urine sed) [#/Area]RARE #/LPFNONE/RARE [facility] NorthAutomated leukocytes count in urine sediment (number/area)on 58-90-3180AJX Auto (Urine sed) [#/Area]75-100 #/HPF0-2FChillicothe VA Medical CenterAutomated urine specific gravity by refractometryon 73-66-4126Bzoyrddq gravity Refractometry automated (U) [Rel density]>=1.030 1.005-1.025[facility] NorthBasophils Auto (Bld) [#/Vol]on 27-16-3509Zrnhwupae (Bld) [#/Vol]0.0 10 3/uL0.0-0.1FChillicothe VA Medical CenterBasophils/100 WBC Auto (Bld)on 53-53-1116Btbaplsyr/100 WBC (Bld)0.2 % 0.2-2.0[facility] NorthBilirubin Auto test strip (U) [Mass/Vol] on 81-81-6253Xewwqwmie (U) [Mass/Vol]NegativeNEGATIVEPremier Health [facility] Hospital NorthCast typing in urine sediment by light microscopyon 09-19-1958Ukrwn LM Nom (Urine sed)SEEN #/LPFNONE SEENPremier Health Miami [facility] Hospital NorthCoarse granular casts count in urine sediment by microscopy low power field (number/aon 89-37-7034Lkdfcd Granular Casts LM.LPF (Urine sed) [#/Area]RAREPremier Health Miami Valley Hospital NorthColor Auto (U)on 38-78-5686Gpsrk (U)ORANGEYELLOWPrem[facility] Health [facility] Hospital NorthEosinophils/100 WBC Auto (Bld)on 09-02-2023 Eosinophils/100 WBC (Bld)0.2 %0.9-7.0[facility] Erythrocyte distribution width Auto (RBC) [Ratio]on 19-13-6410Utfqlkaqvpo distribution width (RBC) [Ratio]12.3 %11.0-15.0[facility] Estimated glomerular filtration rate (GFR) non- Americanon 09-02-2023 GFR/1.73 sq M.predicted among non-blacks MDRD (S/P/Bld) [Vol rate/Area]43 mL/min/{1.73_m2}>=60[facility] NorthGlobulin Calc (S) [Mass/Vol]on 13-92-5020Ycsdosxd (S) [Mass/Vol]3.8 g/dLPremier Health Miami Valley Hospital NorthHematocrit Auto (Bld) [Volume fraction]on 07-83-8435Xqougeztnf (Bld) [Volume fraction]41.8 %42.0-54.0[facility] NorthHemoglobin [Mass/volume] in Bloodon 56-56-3675Wthbwquncp (Bld) [Mass/Vol]14.8 g/dL14.0-18.0 [facility] NorthKetones Auto test strip (U) [Mass/Vol]on 25-86-0078Sionkkd (U) [Mass/Vol]15 mg/dLNEGATIVEPremier Health [facility] NorthLaboratory - Chemistry and Chemistry - challengeon 83-63-0161Fdublhy [Moles/Vol]3.1 mmol/L0.4-2.0[facility] NorthComment on above: RESULTS CALLED TO DR. BLANCOAlbumin [Mass/Vol]3.1 g/dL3.4-5.0[facility] NorthALP [Catalytic activity/Vol]71 U/D31-022ZulqlfkeaPrem[facility] Health [facility] NorthALT [Catalytic activity/Vol]33 U/Z40-56DavaqqdooPrem[facility] Health [facility] AST [Catalytic activity/Vol]19 U/S11-18PiqvhfkawPrem[facility] Health [facility] Bilirubin [Mass/Vol]1.2 mg/dL0.2-1.0[facility] NorthCalcium [Mass/Vol]8.1 mg/dL8.5-10.1FChillicothe VA Medical CenterChloride [Moles/Vol] 96 mmol/F63-098EdsbjyluzPremier Health [facility] Hospital NorthCO2 [Moles/Vol]19.4 mmol/L 21.0-32.0[facility] NorthCreatinine [Mass/Vol]1.65 mg/dL 0.70-1.30[facility] NorthGFR/1.73 sq M.predicted MDRD (S/P/Bld) [Vol rate/Area]52 mL/min/{1.73_m2}>=60[facility] NorthGlucose [Mass/Vol]241 mg/rW56-256FsvjlphhnPrem[facility] Health [facility] NorthPotassium [Moles/Vol] 2.9 mmol/L3.5-5.1FChillicothe VA Medical CenterComment on above:RESULTS CALLED TO IVETH RUFFIN RN @BY Shereen Crocker at 0636Protein [Mass/Vol] 6.9 g/dL6.4-8.2FTrinity Health System Twin City Medical Centerodium [Moles/Vol]130 mmol/L 136-145[facility] NorthUrea nitrogen [Mass/Vol]13.0 mg/dL 7.0-18.0[facility] NorthUrea nitrogen/Creatinine [Mass ratio] 7.9 mg/mgPremier Health Miami [facility] Hospital NorthLaboratory - Hematology and Cell countson 36-04-2154Hcsiuurs granulocytes/100 WBC (Bld)1.3 %0.0-0.5FChillicothe VA Medical CenterLaboratory - Microbiology and Antimicrobial susceptibilityOrdered By: Christopher Wu on 50-63-8763Mwidwnzm identified Cx Nom (U)[facility] NorthLeukocytes [#/volume] corrected for nucleated erythrocytes in Blood by Automated counon 57-48-0546XFR corrected for nucl RBC Auto (Bld) [#/Vol]16.5 10 3/uL4.0-11.0[facility] Lymphocytes Auto (Bld) [#/Vol]on 15-02-4381Fovypfervqd (Bld) [#/Vol]1.0 10 3/uL 1.2-3.8[facility] NorthLymphocytes/100 WBC Auto (Bld)on 42-09-9751Wnnkdleolor/100 WBC (Bld)5.9 %20.5-60.0[facility] NorthMCH Auto (RBC) [Entitic mass]on 26-85-1479WWS (RBC) [Entitic mass]30.0 pg 25.9-34.0[facility] NorthMCHC Auto (RBC) [Mass/Vol]on 02-29-0376VOVX (RBC) [Mass/Vol]35.4 g/dL29.9-35.2FChillicothe VA Medical CenterMCV Auto (RBC) [Entitic vol]on 95-99-9336XWO (RBC) [Entitic vol]84.6 fL 80.0-94.0[facility] NorthMonocytes Auto (Bld) [#/Vol]on 33-79-3204Cplxkhygg (Bld) [#/Vol]1.0 10 3/uL0.3-0.8[facility] NorthMonocytes/100 WBC Auto (Bld)on 32-59-2108Iyajavcrv/100 WBC (Bld)6.1 % 1.7-12.0[facility] NorthMucus LM Ql (Urine sed)on 09-02-2023 Mucus Ql (Urine sed)NONE SEENNONE SEENPrem[facility] Health [facility] North Neutrophils Auto (Bld) [#/Vol]on 04-10-2208Zqbovslkzlw (Bld) [#/Vol]14.2 10 3/uL 1.4-6.5FChillicothe VA Medical CenterNeutrophils/100 WBC Auto (Bld)on 42-28-3435Xofrfkcbtfx/100 WBC (Bld)86.3 %43.0-75.0[facility] NorthNo Panel InformationOrdered By: Christopher Wu on 33-51-0636Ebhcj Culture 2 [facility] NorthBlood Culture 1FChillicothe VA Medical CenterNo Panel Informationon 17-97-7379Gmtgn Culture ReflexedSelect Medical Specialty Hospital - TrumbullUrine Microscopic ReviewYEToledo HospitalEosinophils # (Auto)0.0 10 3/uL0.0-0.7FChillicothe VA Medical Center Immature Granulocyte # (Auto)0.21 10 3/uL0.00-0.03[facility] NorthPlatelet mean volume Auto (Bld) [Entitic vol]on 16-74-2916Iwuedxay mean volume (Bld) [Entitic vol]9.2 fL9.5-13.5FChillicothe VA Medical Center Platelets Auto (Bld) [#/Vol]on 84-22-3488Khwqmxkjt (Bld) [#/Vol]185 10 3/uL 150-450[facility] NorthProtein Auto test strip (U) [Mass/Vol]on 38-40-4726Mrupxke (U) [Mass/Vol]mg/dLNEG/TRACEPrem[facility] Health [facility] RBC Auto (Bld) [#/Vol]on 63-00-7504ISI (Bld) [#/Vol]4.94 10 6/uL4.70-6.10 [facility] Centererum or plasma albumin/globulin mass ratioon 73-78-6680Waumlsd/Globulin [Mass ratio]0.8 {ratio}[facility] Centererum or plasma anion gap determinationon 96-67-3620Lblll gap [Moles/Vol] 17.5 mmol/LFTrinity Health System Twin City Medical Centererum procalcitonin measurementon 71-85-6493Libremomcamlv [Mass/Vol]27.68 ng/mL0.00-0.50[facility] Centerpecific gravity Auto test strip (U) [Rel density]on 14-50-8293Tiqiuuuh gravity (U) [Rel density]CLEARCLEARFChillicothe VA Medical CenterUrine bacteria detection by automated methodon 74-95-2166Xpagjhyc Auto Ql (U)LARGE #/HPFNONE [facility] HospitalUrine glucose measurement by test strip (mass/volume)on 23-23-5911Vjrsigb Test strip (U) [Mass/Vol]100 mg/dL NEGATIVEPremier Health Miami Valley Hospital NorthUrine hemoglobin detection by automated test stripon 18-66-5296Mcfygvocvx Auto test strip Ql (U)LARGENEGFirelands Regional Medical CenterUrine nitrite detection by automated test stripon 85-95-5742Jomxjpm Auto test strip Ql (U)TRACENEGFirelands Regional Medical CenterNitrite Auto test strip Ql (U)NegativeNEGFirelands Regional Medical CenterUrine sediment crystal identification by light microscopyon 09-02-2023 Crystals LM Nom (Urine sed)None Seen #/HPFNone Protestant HospitalUrine sediment leukocyte count by microscopy (number/high power field)on 30-27-8573QHM LM.HPF (Urine sed) [#/Area]5-10 #/HPFNONE [facility] HospitalUrobilinogen Auto test strip (U) [Mass/Vol]on 09-02-2023 Urobilinogen Qn (U)0.2 {Devorah'U}/dL0.2-1.0[facility] NorthpH Auto test strip (U)on 85-96-1339oJ (U)5.5 [pH]5.0-9.0[facility] NorthAutomated epithelial cells count in urine sediment (number/area)on 07-37-2962Zifgdthqig cells Auto (Urine sed) [#/Area]NONE SEEN #/LPFNONE/RARE [facility] NorthAutomated leukocytes count in urine sediment (number/area)on 69-35-4761BSH Auto (Urine sed) [#/Area]0-2 #/HPF0-2FChillicothe VA Medical CenterAutomated urine specific gravity by refractometryon 48-65-3854Jqsteeaw gravity Refractometry automated (U) [Rel density]1.025 1.005-1.025[facility] NorthBasophils Auto (Bld) [#/Vol]on 91-70-3763Uspimetuh (Bld) [#/Vol]0.0 10 3/uL0.0-0.1FChillicothe VA Medical CenterBasophils/100 WBC Auto (Bld)on 29-37-7101Kbwliybtt/100 WBC (Bld)0.6 % 0.2-2.0[facility] NorthBilirubin Auto test strip (U) [Mass/Vol] on 03-24-5180Rdwuliizv (U) [Mass/Vol]NegativeNEGATIVEPrem[facility] Health [facility] NorthCast typing in urine sediment by light microscopyon 61-04-7704Toqnx LM Nom (Urine sed)NONE SEEN #/LPFNONE [facility] HospitalColor Auto (U)on 16-04-6977Muhws (U)YELLOWYELLOWPrem[facility] Health [facility] Eosinophils/100 WBC Auto (Bld)on 96-48-3148Ysanwwaofzu/100 WBC (Bld)2.1 %0.9-7.0 [facility] NorthErythrocyte distribution width Auto (RBC) [Ratio]on 76-95-2271Vsselqfvaol distribution width (RBC) [Ratio]12.6 %11.0-15.0 [facility] NorthEstimated glomerular filtration rate (GFR) non- Americanon 97-93-1691NTV/1.73 sq M.predicted among non-blacks MDRD (S/P/Bld) [Vol rate/Area]45 mL/min/{1.73_m2}>=60[facility] NorthGlobulin Calc (S) [Mass/Vol]on 10-34-2530Fthwmstb (S) [Mass/Vol]3.9 g/dL [facility] NorthHematocrit Auto (Bld) [Volume fraction]on 66-32-2144Wbujrbavzx (Bld) [Volume fraction]45.0 %42.0-54.0[facility] NorthHemoglobin [Mass/volume] in Bloodon 49-74-3033Ljfoqxmdqs (Bld) [Mass/Vol]15.0 g/dL14.0-18.0[facility] NorthKetones Auto test strip (U) [Mass/Vol]on 74-79-9030Jgtlrpr (U) [Mass/Vol]TRACE mg/dLNEGATIVE [facility] NorthLaboratory - Chemistry and Chemistry - challengeon 10-68-0936Ggxxmzl [Mass/Vol]3.6 g/dL3.4-5.0[facility] NorthALP [Catalytic activity/Vol]71 U/I14-843VqycajozxPremier Health [facility] Hospital NorthALT [Catalytic activity/Vol]41 U/V69-77LpejvvtpyPrem[facility] AST [Catalytic activity/Vol]31 U/D40-86ZyagockgcPrem[facility] Bilirubin [Mass/Vol]1.0 mg/dL0.2-1.0[facility] NorthCalcium [Mass/Vol]8.5 mg/dL8.5-10.1FChillicothe VA Medical CenterChloride [Moles/Vol] 102 mmol/Q01-000QwyzwfvkwPremier Health Miami [facility] Hospital NorthCO2 [Moles/Vol]27.8 mmol/L 21.0-32.0[facility] NorthCreatinine [Mass/Vol]1.56 mg/dL 0.70-1.30[facility] NorthGFR/1.73 sq M.predicted MDRD (S/P/Bld) [Vol rate/Area]55 mL/min/{1.73_m2}>=60[facility] NorthGlucose [Mass/Vol]194 mg/sO11-307PapuaobrrPremier Health Miami [facility] Hospital NorthLipase [Catalytic activity/Vol]18.0 U/L16.0-77.0[facility] NorthPotassium [Moles/Vol]4.3 mmol/L3.5-5.1FChillicothe VA Medical CenterProtein [Mass/Vol] 7.5 g/dL6.4-8.2FTrinity Health System Twin City Medical Centerodium [Moles/Vol]138 mmol/L 136-145Prem[facility] NorthUrea nitrogen [Mass/Vol]11.0 mg/dL 7.0-18.0[facility] NorthUrea nitrogen/Creatinine [Mass ratio] 7.1 mg/mgPremier Health [facility] NorthLaboratory - Hematology and Cell countson 38-42-5259Tketkvci granulocytes/100 WBC (Bld)0.3 %0.0-0.5FChillicothe VA Medical CenterLeukocytes [#/volume] corrected for nucleated erythrocytes in Blood by Automated counon 31-45-7201AKB corrected for nucl RBC Auto (Bld) [#/Vol]7.2 10 3/uL4.0-11.0[facility] Lymphocytes Auto (Bld) [#/Vol]on 65-68-6514Sfbeudphbsl (Bld) [#/Vol]2.0 10 3/uL 1.2-3.8[facility] NorthLymphocytes/100 WBC Auto (Bld)on 61-97-2908Sxezttecmdz/100 WBC (Bld)27.6 %20.5-60.0[facility] Auto (RBC) [Entitic mass]on 58-41-2363EAJ (RBC) [Entitic mass]29.1 pg 25.9-34.0[facility] NorthMC Auto (RBC) [Mass/Vol]on 77-73-3905GKJU (RBC) [Mass/Vol]33.3 g/dL29.9-35.2FChillicothe VA Medical CenterMCV Auto (RBC) [Entitic vol]on 07-27-9554WHJ (RBC) [Entitic vol]87.2 fL 80.0-94.0[facility] NorthMonocytes Auto (Bld) [#/Vol]on 11-18-8239Rspyxsizf (Bld) [#/Vol]0.5 10 3/uL0.3-0.8[facility] NorthMonocytes/100 WBC Auto (Bld)on 72-78-4220Kkbehdjgi/100 WBC (Bld)7.2 % 1.7-12.0[facility] NorthMucus LM Ql (Urine sed)on 08-28-2023 Mucus Ql (Urine sed)NONE SEENNONE [facility] Neutrophils Auto (Bld) [#/Vol]on 38-37-4121Fzavoytlacv (Bld) [#/Vol]4.5 10 3/uL 1.4-6.5FChillicothe VA Medical CenterNeutrophils/100 WBC Auto (Bld)on 78-07-2073Vrrweolxhaf/100 WBC (Bld)62.2 %43.0-75.0[facility] NorthNo Panel Informationon 76-51-4388Lpsis Transitional Epithelial CellsRARE #/LPFNONE [facility] HospitalEosinophils # (Auto)0.2 10 3/uL 0.0-0.7FChillicothe VA Medical CenterImmature Granulocyte # (Auto)0.02 10 3/uL0.00-0.03[facility] NorthPlatelet mean volume Auto (Bld) [Entitic vol]on 12-53-2872Kxcovdgy mean volume (Bld) [Entitic vol]9.7 fL9.5-13.5 [facility] NorthPlatelets Auto (Bld) [#/Vol]on 08-28-2023 Platelets (Bld) [#/Vol]232 10 3/mM549-941JivxksmztPremier Health [facility] North Protein Auto test strip (U) [Mass/Vol]on 93-28-9123Eququiu (U) [Mass/Vol] NegativeNEG/TRACEPremier Health Miami Valley Hospital NorthRBC Auto (Bld) [#/Vol]on 87-58-0743HMK (Bld) [#/Vol]5.16 10 6/uL4.70-6.10[facility] Centererum or plasma albumin/globulin mass ratioon 55-49-7617Zzbjlli/Globulin [Mass ratio]0.9 {ratio}[facility] Centererum or plasma anion gap determinationon 29-20-2120Iieqf gap [Moles/Vol]12.5 mmol/LFTrinity Health System Twin City Medical Centerpecific gravity Auto test strip (U) [Rel density]on 08-28-2023 Specific gravity (U) [Rel density]CLEARCLEARFChillicothe VA Medical Center Urine bacteria detection by automated methodon 32-59-8229Fsplnhln Auto Ql (U) NONE SEEN #/HPFNONE [facility] HospitalUrine glucose measurement by test strip (mass/volume)on 42-16-6272Vgrverp Test strip (U) [Mass/Vol]500 mg/dLNEGATIVEPremier Health Miami [facility] Hospital NorthUrine hemoglobin detection by automated test stripon 71-35-9701Vexgwtkqqf Auto test strip Ql (U) NegativeNEGATIVEPremier Health [facility] NorthUrine nitrite detection by automated test stripon 25-60-2998Ohvrlib Auto test strip Ql (U)NegativeNEGATIVE [facility] NorthUrine sediment crystal identification by light microscopyon 26-50-3122Uchefiqy LM Nom (Urine sed)None Seen #/HPFNone Seen [facility] NorthUrine sediment leukocyte count by microscopy (number/high power field)on 39-24-3860GBV LM.HPF (Urine sed) [#/Area]NONE SEEN #/HPFNONE [facility] HospitalUrobilinogen Auto test strip (U) [Mass/Vol]on 45-04-0807Jgngxkcgaywr Qn (U)0.2 {Devorah'U}/dL0.2-1.0[facility] NorthpH Auto test strip (U)on 07-53-2305mG (U)5.5 [pH]5.0-9.0 [facility] NorthAutomated epithelial cells count in urine sediment (number/area)on 80-28-8536Ankxhunfsl cells Auto (Urine sed) [#/Area] NONE SEEN #/LPFNONE/RAREPremier Health [facility] Hospital NorthAutomated leukocytes count in urine sediment (number/area)on 28-17-1704OLU Auto (Urine sed) [#/Area] 0-2 #/HPF0-2FChillicothe VA Medical CenterAutomated urine specific gravity by refractometryon 29-33-1942Hejloetn gravity Refractometry automated (U) [Rel density]1.0251.005-1.025[facility] NorthBasophils Auto (Bld) [#/Vol]on 96-20-3356Cznorqdal (Bld) [#/Vol]0.0 10 3/uL0.0-0.1FChillicothe VA Medical CenterBasophils/100 WBC Auto (Bld)on 90-97-6719Jftgjtbur/100 WBC (Bld) 0.4 %0.2-2.0[facility] NorthBilirubin Auto test strip (U) [Mass/Vol]on 41-82-0647Oxzbgkvck (U) [Mass/Vol]NegativeNEGATIVEPremier Health [facility] NorthCasts typing in urine sediment by light microscopyon 39-47-8368Imawk LM Nom (Urine sed)NONE SEEN #/LPFNONE SEENPremier Health [facility] Hospital NorthColor Auto (U)on 38-49-6017Vpoag (U)YELLOWYELLOWPremier Health [facility] Hospital NorthEosinophils/100 WBC Auto (Bld)on 86-01-5825Kuphuxbhjof/100 WBC (Bld)1.9 %0.9-7.0[facility] NorthErythrocyte distribution width Auto (RBC) [Ratio]on 61-20-3909Kotwinyvjkv distribution width (RBC) [Ratio]12.7 %11.0-15.0[facility] NorthEstimated glomerular filtration rate (GFR) non- Americanon 73-06-8476VNG/1.73 sq M.predicted among non-blacks MDRD (S/P/Bld) [Vol rate/Area]mL/min/{1.73_m2}>=60[facility] NorthGlobulin Calc (S) [Mass/Vol]on 64-47-3767Yxwqdnce (S) [Mass/Vol]3.7 g/dL [facility] NorthHematocrit Auto (Bld) [Volume fraction]on 34-10-7489Lmmwulqsse (Bld) [Volume fraction]43.7 %42.0-54.0[facility] NorthHemoglobin [Mass/volume] in Bloodon 16-24-8702Ofegllahrh (Bld) [Mass/Vol]15.2 g/dL14.0-18.0[facility] NorthKetones Auto test strip (U) [Mass/Vol]on 67-14-6908Piiebjv (U) [Mass/Vol]NegativeNEGATIVEPremier Health [facility] Hospital NorthLaboratory - Chemistry and Chemistry - challengeon 50-64-7286Tpjgcxs [Mass/Vol]3.6 g/dL3.4-5.0[facility] NorthALP [Catalytic activity/Vol]75 U/P40-343MkwoqjpbsPremier Health [facility] NorthALT [Catalytic activity/Vol]46 U/B38-14EbwwqcxvoPremier Health [facility] NorthAST [Catalytic activity/Vol]32 U/L58-51DnqrjqtmlPremier Health [facility] Hospital NorthBilirubin [Mass/Vol]0.6 mg/dL0.2-1.0[facility] NorthCalcium [Mass/Vol]9.1 mg/dL8.5-10.1FChillicothe VA Medical CenterChloride [Moles/Vol]102 mmol/L 98-107[facility] NorthCO2 [Moles/Vol]26.3 mmol/L21.0-32.0 [facility] NorthCreatinine [Mass/Vol]1.12 mg/dL0.70-1.30 [facility] NorthGFR/1.73 sq M.predicted MDRD (S/P/Bld) [Vol rate/Area]mL/min/{1.73_m2}>=60[facility] NorthGlucose [Mass/Vol]152 mg/kR70-930YgkjqwypxPremier Health [facility] Hospital NorthNatriuretic peptide B (Bld) [Mass/Vol]20.0 pg/mL<=900.0[facility] NorthPotassium [Moles/Vol]3.9 mmol/L3.5-5.1FChillicothe VA Medical CenterProtein [Mass/Vol] 7.3 g/dL6.4-8.2FTrinity Health System Twin City Medical Centerodium [Moles/Vol]137 mmol/L 136-145[facility] NorthUrea nitrogen [Mass/Vol]18.0 mg/dL 7.0-18.0[facility] NorthUrea nitrogen/Creatinine [Mass ratio] 16.1 mg/mgPremier Health [facility] NorthLaboratory - Hematology and Cell countson 76-49-9759Ykqbxfza granulocytes/100 WBC (Bld)0.3 %0.0-0.5FChillicothe VA Medical CenterLeukocytes [#/volume] corrected for nucleated erythrocytes in Blood by Automated counon 10-21-0965ONN corrected for nucl RBC Auto (Bld) [#/Vol]10.2 10 3/uL4.0-11.0[facility] Lymphocytes Auto (Bld) [#/Vol]on 19-38-7436Zvhgmdbemyn (Bld) [#/Vol]2.9 10 3/uL 1.2-3.8[facility] NorthLymphocytes/100 WBC Auto (Bld)on 00-00-2820Azyghscxrfr/100 WBC (Bld)28.4 %20.5-60.0[facility] HospitalH Auto (RBC) [Entitic mass]on 97-96-5457VNZ (RBC) [Entitic mass]30.0 pg 25.9-34.0[facility] NorthMCHC Auto (RBC) [Mass/Vol]on 98-74-8141PBEU (RBC) [Mass/Vol]34.8 g/dL29.9-35.2FChillicothe VA Medical CenterMCV Auto (RBC) [Entitic vol]on 90-94-5700RDF (RBC) [Entitic vol]86.4 fL 80.0-94.0[facility] NorthMonocytes Auto (Bld) [#/Vol]on 36-39-9864Zpwdizdjm (Bld) [#/Vol]0.7 10 3/uL0.3-0.8[facility] NorthMonocytes/100 WBC Auto (Bld)on 38-27-7417Wbefmupgg/100 WBC (Bld)7.2 % 1.7-12.0[facility] NorthMucus LM Ql (Urine sed)on 08-26-2023 Mucus Ql (Urine sed)NONE SEENNONE SEENPrem[facility] Health [facility] Neutrophils Auto (Bld) [#/Vol]on 22-74-9477Tcwtkgwmmok (Bld) [#/Vol]6.3 10 3/uL 1.4-6.5FChillicothe VA Medical CenterNeutrophils/100 WBC Auto (Bld)on 12-45-6074Uwwhlyczajn/100 WBC (Bld)61.8 %43.0-75.0[facility] NorthNo Panel Informationon 71-84-6143Znyqd Microscopic ReviewYESPremier Health [facility] NorthEosinophils # (Auto)0.2 10 3/uL0.0-0.7FChillicothe VA Medical CenterImmature Granulocyte # (Auto)0.03 10 3/uL0.00-0.03[facility] NorthTroponin I High Sensitivity<4.0 pg/mL4.0-76.1FChillicothe VA Medical CenterComment on above:CUT-OFF POINTS HAVE BEEN ESTABLISHED BASED ON THE FOURTHUNIVERSAL DEFINITION OF MYOCARDIAL INFARCTION. THE UPPERREFERENCE LIMIT (URL) OF TROPONIN, DEFINED THE 99THPERCENTILE OF cTnI DISTRIBUTION IN A REFERENCE POPULATION,HAS BEEN CONFIRMED THE DECISION THRESHOLD FOR MIDIAGNOSIS.99TH PERCENTILE = 76.2 PG/MLNOTE: HIGH-SENSITIVITY TROPONIN ASSAY IS NOT INTENDED TO BEUSED IN ISOLATION BUT SHOULD BE INTERPRETED IN CONJUNCTIONWITH OTHER DIAGNOSTIC AND CLINICAL INFORMATION.Platelet mean volume Auto (Bld) [Entitic vol]on 24-91-3142Tqmaxxyx mean volume (Bld) [Entitic vol]10.4 fL9.5-13.5FChillicothe VA Medical CenterPlatelets Auto (Bld) [#/Vol] on 50-08-5143Ruwhgaemt (Bld) [#/Vol]235 10 3/qD615-373RhikefyhhPremier Health [facility] NorthProtein Auto test strip (U) [Mass/Vol]on 54-44-9084Zubkfdh (U) [Mass/Vol] NegativeNEG/TRACEPremier Health [facility] Hospital NorthRBC Auto (Bld) [#/Vol]on 20-01-1867LCL (Bld) [#/Vol]5.06 10 6/uL4.70-6.10[facility] Centererum or plasma albumin/globulin mass ratioon 83-65-6929Xizpnvi/Globulin [Mass ratio]1.0 {ratio}[facility] Centererum or plasma anion gap determinationon 35-76-2215Jwzne gap [Moles/Vol]12.6 mmol/LFTrinity Health System Twin City Medical Centerpecific gravity Auto test strip (U) [Rel density]on 08-26-2023 Specific gravity (U) [Rel density]CLEARCLEARFChillicothe VA Medical Center Urine bacteria detection by automated methodon 76-12-5596Jllcswws Auto Ql (U) NONE SEEN #/HPFNONE [facility] HospitalUrine glucose measurement by test strip (mass/volume)on 44-54-5064Qktungs Test strip (U) [Mass/Vol]NegativeNEGATIVEPremier Health [facility] Hospital NorthUrine hemoglobin detection by automated test stripon 99-75-3905Umxrpcvruz Auto test strip Ql (U) TRACE-INEGATIVEPremier Health [facility] Hospital NorthUrine nitrite detection by automated test stripon 98-65-4380Vvgndhu Auto test strip Ql (U)NegativeNEGATIVE [facility] NorthUrine sediment crystal identification by light microscopyon 45-87-3611Kivcolud LM Nom (Urine sed)None Seen #/HPFNone [facility] HospitalUrine sediment leukocyte count by microscopy (number/high power field)on 34-76-0007IBH LM.HPF (Urine sed) [#/Area]NONE SEEN #/HPFNONE [facility] HospitalUrobilinogen Auto test strip (U) [Mass/Vol]on 12-55-8188Azfnnahzlxvf Qn (U)0.2 {Devorah'U}/dL0.2-1.0[facility] NorthpH Auto test strip (U)on 47-06-0554zU (U)5.5 [pH]5.0-9.0 [facility] NorthAutomated epithelial cells count in urine sediment (number/area)on 11-41-2304Bbugclfwzt cells Auto (Urine sed) [#/Area] RARE #/LPFNONE/RAREPrem[facility] Health [facility] NorthAutomated leukocytes count in urine sediment (number/area)on 76-16-1141HCJ Auto (Urine sed) [#/Area]20-50 #/HPF0-2FChillicothe VA Medical CenterAutomated urine hyaline casts count (number/volume)on 21-00-9373Fcwxctm casts Auto (U) [#/Vol][facility] HospitalAutomated urine specific gravity by refractometryon 08-20-2023 Specific gravity Refractometry automated (U) [Rel density]>=1.0301.005-1.025 [facility] NorthBasophils Auto (Bld) [#/Vol]on 08-20-2023 Basophils (Bld) [#/Vol]0.1 10 3/uL0.0-0.1FChillicothe VA Medical Center Basophils/100 WBC Auto (Bld)on 78-37-6606Hxzdyhmij/100 WBC (Bld)0.8 %0.2-2.0 [facility] NorthBilirubin Auto test strip (U) [Mass/Vol]on 83-88-5325Dvnlzkqkt (U) [Mass/Vol]NegativeNEGATIVEPrem[facility] Health [facility] NorthCasts typing in urine sediment by light microscopyon 10-64-1551Wcbnz LM Nom (Urine sed)SEEN #/LPFNONE SEENPremier Health [facility] Hospital NorthColor Auto (U)on 54-97-1347Nlhmz (U)YELLOWYELLOWPrem[facility] Health [facility] North Eosinophils/100 WBC Auto (Bld)on 01-04-8091Pkttzjxewux/100 WBC (Bld)2.8 %0.9-7.0 [facility] NorthErythrocyte distribution width Auto (RBC) [Ratio]on 31-82-1692Yyhagvdzarz distribution width (RBC) [Ratio]12.8 %11.0-15.0 [facility] NorthEstimated glomerular filtration rate (GFR) non- Americanon 22-46-6880BSG/1.73 sq M.predicted among non-blacks MDRD (S/P/Bld) [Vol rate/Area]mL/min/{1.73_m2}>=60[facility] Hematocrit Auto (Bld) [Volume fraction]on 34-67-4504Gmhioisphn (Bld) [Volume fraction]46.9 %42.0-54.0[facility] NorthHemoglobin [Mass/volume] in Bloodon 96-41-8753Axzvahhqza (Bld) [Mass/Vol]16.1 g/dL14.0-18.0 [facility] NorthKetones Auto test strip (U) [Mass/Vol]on 53-78-9532Vcdnjhx (U) [Mass/Vol]NegativeNEGATIVEPrem[facility] Health [facility] NorthLaboratory - Chemistry and Chemistry - challengeon 85-66-0207Qjxchqs [Mass/Vol]8.4 mg/dL8.5-10.1FChillicothe VA Medical CenterChloride [Moles/Vol] 103 mmol/F74-622XrzpfveeePremier Health [facility] NorthCO2 [Moles/Vol]25.7 mmol/L 21.0-32.0[facility] NorthCreatinine [Mass/Vol]1.04 mg/dL 0.70-1.30[facility] NorthGFR/1.73 sq M.predicted MDRD (S/P/Bld) [Vol rate/Area]mL/min/{1.73_m2}>=60[facility] NorthGlucose [Mass/Vol]185 mg/cV98-527UdwsjcpqtPrem[facility] Health [facility] NorthPotassium [Moles/Vol] 3.8 mmol/L3.5-5.1FTrinity Health System Twin City Medical Centerodium [Moles/Vol]140 mmol/L 136-145[facility] NorthUrea nitrogen [Mass/Vol]12.0 mg/dL 7.0-18.0[facility] NorthUrea nitrogen/Creatinine [Mass ratio] 11.5 mg/mgPremier Health [facility] NorthLaboratory - Hematology and Cell countson 38-99-1619Epiwkxcy granulocytes/100 WBC (Bld)0.5 %0.0-0.5FChillicothe VA Medical CenterLeukocytes [#/volume] corrected for nucleated erythrocytes in Blood by Automated counon 83-82-3319HKU corrected for nucl RBC Auto (Bld) [#/Vol]7.7 10 3/uL4.0-11.0[facility] Lymphocytes Auto (Bld) [#/Vol]on 65-96-2898Cfereutyzeh (Bld) [#/Vol]3.5 10 3/uL 1.2-3.8[facility] NorthLymphocytes/100 WBC Auto (Bld)on 40-32-2586Ubowlryejel/100 WBC (Bld)45.5 %20.5-60.0[facility] HospitalH Auto (RBC) [Entitic mass]on 98-77-3993ZGF (RBC) [Entitic mass]29.8 pg 25.9-34.0[facility] NorthMCHC Auto (RBC) [Mass/Vol]on 65-86-4962QGDX (RBC) [Mass/Vol]34.3 g/dL29.9-35.2FChillicothe VA Medical CenterMCV Auto (RBC) [Entitic vol]on 79-88-3232YCP (RBC) [Entitic vol]86.9 fL 80.0-94.0[facility] NorthMonocytes Auto (Bld) [#/Vol]on 54-81-4603Qpsetjjdp (Bld) [#/Vol]0.6 10 3/uL0.3-0.8[facility] NorthMonocytes/100 WBC Auto (Bld)on 04-28-8251Bojpbqohe/100 WBC (Bld)7.3 % 1.7-12.0[facility] NorthMucus LM Ql (Urine sed)on 08-20-2023 Mucus Ql (Urine sed)TRACENONE SEENPrem[facility] Health [facility] Hospital NorthNeutrophils Auto (Bld) [#/Vol]on 43-87-1394Uxlbbwafnyg (Bld) [#/Vol]3.3 10 3/uL1.4-6.5 [facility] NorthNeutrophils/100 WBC Auto (Bld)on 08-20-2023 Neutrophils/100 WBC (Bld)43.1 %43.0-75.0[facility] NorthNo Panel Informationon 33-20-7507Isxba Culture ReflexedNOPremier Health Miami Valley Hospital NorthUrine Microscopic ReviewYESPrem[facility] NorthEosinophils # (Auto)0.2 10 3/uL0.0-0.7FChillicothe VA Medical CenterImmature Granulocyte # (Auto)0.04 10 3/uL0.00-0.03[facility] NorthPlatelet mean volume Auto (Bld) [Entitic vol]on 10-03-1193Iddstxkm mean volume (Bld) [Entitic vol]9.9 fL9.5-13.5FChillicothe VA Medical CenterPlatelets Auto (Bld) [#/Vol] on 65-17-0342Afdotopgc (Bld) [#/Vol]259 10 3/sL519-889UweyyajqyPremier Health [facility] NorthProtein Auto test strip (U) [Mass/Vol]on 26-15-5103Moftfnm (U) [Mass/Vol] 30 mg/dLNEG/TRACEPrem[facility] Health [facility] Hospital NorthRBC Auto (Bld) [#/Vol]on 21-40-5209MNI (Bld) [#/Vol]5.40 10 6/uL4.70-6.10[facility] Centererum or plasma anion gap determinationon 87-75-4650Sndre gap [Moles/Vol] 15.1 mmol/LFTrinity Health System Twin City Medical Centerpecific gravity Auto test strip (U) [Rel density]on 33-16-7579Vcfsmcew gravity (U) [Rel density]CLEARCLEARFChillicothe VA Medical CenterUrine bacteria detection by automated methodon 08-20-2023 Bacteria Auto Ql (U)TRACE #/HPFNONE [facility] HospitalUrine glucose measurement by test strip (mass/volume)on 36-59-4402Fpelwmi Test strip (U) [Mass/Vol]NegativeNEGFirelands Regional Medical CenterUrine hemoglobin detection by automated test stripon 74-68-9593Dmsgrtourg Auto test strip Ql (U) LARGENEGFirelands Regional Medical CenterUrine nitrite detection by automated test stripon 20-47-9053Wzptxsz Auto test strip Ql (U)NegativeNEGMercy Health St. Anne HospitalUrine sediment crystal identification by light microscopyon 52-93-7511Pizyqkjg LM Nom (Urine sed)None Seen #/HPFNone [facility] HospitalUrine sediment leukocyte count by microscopy (number/high power field)on 46-90-2455NII LM.HPF (Urine sed) [#/Area]0-2 #/HPF NONE SEENPremier Health [facility] Hospital NorthUrobilinogen Auto test strip (U) [Mass/Vol]on 05-19-5652Fvhdfnrnycon Qn (U)0.2 {Devorah'U}/dL0.2-1.0[facility] NorthpH Auto test strip (U)on 60-06-6110jS (U)5.5 [pH]5.0-9.0 [facility] NorthCBC AUTO DIFFon 84-91-1184GMNX #0.0 103/ul Normal0.0-0.1The [facility] SystemComment on above:Performed By: #### CMP, TSH #### [facility] [address] [place] [address] Dr. Cipriano SimonBasophils/100 WBC (Bld)0.8 %Normal0.2-2.0[facility] Comment on above:Performed By: #### CMP, TSH #### [facility] [address] [place] [address] Dr. Cipriano Aguirre #0.1 103/ulNormal0.0-0.7The [facility] SystemComment on above: Performed By: #### CMP, TSH #### [facility] [address] [place] [address] Dr. Cipriano Jacomeosinophils/100 WBC (Bld)1.8 %Normal0.9-7.0[facility] Comment on above:Performed By: #### CMP, TSH #### [facility] [address] [place] [address] Dr. Cipriano Jacomerythrocyte distribution width (RBC) [Ratio]12.8 %Qamcpr33.0-15.0 The [facility] SystemComment on above:Performed By: #### CMP, TSH #### [facility] [address] [place] [address] Dr. Cipriano SimonHematocrit (Bld) [Volume fraction]46.3 %Rebwdf86.0-54.0The [facility] SystemComment on above:Performed By: #### CMP, TSH #### [facility] [address] [place] [address] Dr. Cipriano SimonHemoglobin (Bld) [Mass/Vol]15.8 g/sYGbpexj13.0-18.0The [facility] SystemComment on above:Performed By: #### CMP, TSH #### [facility] [address] [place] [address] Dr. Cipriano Fuller #0.05 10e3/ulCritically high0.00-0.03The [facility] Comment on above:Performed By: #### CMP, TSH #### [facility] [address] [place] [address] Dr. Cipriano Fuller %1.0 %Critically high0.0-0.5The [facility] SystemComment on above:Performed By: #### CMP, TSH #### [facility] [address] [place] [address] Dr. Cipriano Al #2.6 103/ulNormal1.2-3.8The [facility] SystemComment on above:Performed By: #### CMP, TSH #### [facility] [address] [place] [address] Dr. Cipriano Medinahocytes/100 WBC (Bld)52.7 %Tesfmo45.5-60.0The [facility] SystemComment on above:Performed By: #### CMP, TSH #### [facility] [address] [place] [address] Dr. Cipriano SpencerUAL DIFF REQNONormalThe The [facility] SystemComment on above: Performed By: #### CMP, TSH #### [facility] [address] [place] [address] Dr. Cipriano Currie (RBC) [Entitic mass]29.0 egDmrvja39.9-34.0The [facility] SystemComment on above:Performed By: #### CMP, TSH #### [facility] [address] [place] [address] Dr. Cipriano Currie (RBC) [Mass/Vol]34.1 g/sOGnmsmx98.9-35.2The [facility] SystemComment on above:Performed By: #### CMP, TSH #### [facility] [address] [address] [address] Cipriano CurrieV (RBC) [Entitic vol]85.0 jFMkqizm51.0-94.0The [facility] SystemComment on above:Performed By: #### CMP, TSH #### [facility] [address] [place] [address] Dr. Cipriano Loera #0.4 103/ulNormal0.3-0.8The [facility] SystemComment on above:Performed By: #### CMP, TSH #### [facility] [address] [place] [address] Dr. Cipriano Fordocytes/100 WBC (Bld)7.2 %Normal1.7-12.0The [facility] Comment on above:Performed By: #### CMP, TSH #### [facility] [address] [place] [address] Dr. Cipriano Marsh #1.8 103/ulNormal1.4-6.5The [facility] SystemComment on above:Performed By: #### CMP, TSH #### [facility] [address] [place] [address] Dr. Cipriano Foxutrophils/100 WBC (Bld)36.5 %Critically low43.0-75.0The [facility]:Performed By: #### CMP, TSH #### [facility] [address] [place] [address] Dr. Cipriano Javierlet mean volume (Bld) [Entitic vol]10.7 fLNormal9.5-13.5The [facility]:Performed By: #### CMP, TSH #### [facility] [address] [place] [address] Dr. Cipriano SimonPLT214 103/[id number] [facility]: Performed By: #### CMP, TSH #### [facility] [address] [place] [address] Dr. Cipriano SimonRBC5.45 106/ulNormal4.70-6.10The [facility] on above:Performed By: #### CMP, TSH #### [facility] [address] [address] [address] Cipriano SimonWBC5.0 103/ulNormal4.0-11.0The [facility] on above: Performed By: #### CMP, TSH #### [facility] [address] [address] [address] Cipriano SimonGLYCOHEMOGLOBIN A1Con 26-76-6582VZJ RECOMMENDATIONSEE BELOWNormal The [facility] on above:Result Comment: ADA RECOMMENDED LIMIT 4.0 - 6.0 ADA THERAPEUTIC TARGET < 7.0 ACTION SUGGESTED > 7.0Performed By: #### CMP, TSH #### [facility] [address] [address] [address] Cipriano SimonGlucose [Mass/Vol]209 mg/dLNormalThe [facility] on above:Performed By: #### CMP, TSH #### [facility] [address] [address] [address] Cipriano SimonHbA1c (Bld) [Mass fraction]8.9 %Critically high4.5-6.2The [facility] on above:Performed By: #### CMP, TSH #### [facility] [address] [address] [address] Cipriano SimonMICROALBUMIN, RAND URon 46-84-8810eZSX5.8 mg/LNormal<=30.0[facility] on above:Performed By: #### MALBR #### [facility] [address] [address] [address] Cipriano SimonPROF 14(COMP METB)on 90-50-2206Yhftduq [Mass/Vol]4.1 g/dLNormal 3.4-5.0[facility] on above:Performed By: #### CMP, TSH #### [facility] [address] [address] [address] Cipriano SimonAlbumin/Globulin [Mass ratio]1.2 {ratio}NormalThe [facility] HospitalComment on above:Performed By: #### CMP, TSH #### [facility] [address] [address] [address] Cipriano Almonte [Catalytic activity/Vol]106 U/FZezqwb24-729Yjx [facility] on above:Performed By: #### CMP, TSH #### [facility] [address] [address] [address] Cipriano Vale [Catalytic activity/Vol]42 U/WPnnjpg99-47Nnh [facility] on above:Performed By: #### CMP, TSH #### [facility] [address] [address] [address] Cipriano Lr gap [Moles/Vol]12.7 mmol/LNormalThe [facility] Comment on above:Performed By: #### CMP, TSH #### [facility] [address] [address] [address] Cipriano SimonAST [Catalytic activity/Vol]15 U/COuhntw54-52Oki [facility]ment on above:Performed By: #### CMP, TSH #### [facility] [address] [address] [address] Cipriano SimonBilirubin [Mass/Vol]0.5 mg/dLNormal0.2-1.0The [facility] Comment on above:Performed By: #### CMP, TSH #### [facility] [address] [address] [address] Cipriano SimonCalcium [Mass/Vol]8.9 mg/dLNormal8.5-10.1[facility] Comment on above:Performed By: #### CMP, TSH #### [facility] [address] [address] [address] Cipriano SimonChloride [Moles/Vol]101 mmol/LYbiawf01-695Oyj [facility] Comment on above:Performed By: #### CMP, TSH #### [facility] [address] [address] [address] Cipriano SimonCO2 [Moles/Vol]29.1 mmol/MBfbnxn84.0-32.0The [facility] Comment on above:Performed By: #### CMP, TSH #### [facility] [address] [address] [address] Cipriano SimonCreatinine [Mass/Vol]0.95 mg/dLNormal0.70-1.30The [facility] on above:Performed By: #### CMP, TSH #### [facility] [address] [address] [address] Cipriano JacomeGFR-AF IRAQI>60Normal>=60The [facility] on above:Performed By: #### CMP, TSH #### [facility] [address] [address] [address] Cipriano JacomeGFR-NON AF IRAQI>60Normal>=60The [facility] on above:Performed By: #### CMP, TSH #### [facility] [address] [address] [address] Cipriano SimonGlobulin (S) [Mass/Vol]3.5 g/dLNormalThe [facility] on above:Performed By: #### CMP, TSH #### [facility] [address] [address] [address] Cipriano SimonGlucose [Mass/Vol]256 mg/dLCritically hmwp84-570EavTriHealth McCullough[facility] Hospitalment on above:Performed By: #### CMP, TSH #### [facility] [address] [address] [address] Cipriano SimonPotassium [Moles/Vol]3.8 mmol/LNormal3.5-5.1The [facility] Comment on above:Performed By: #### CMP, TSH #### [facility] [address] [address] [address] Cipriano SimonProtein [Mass/Vol]7.6 g/dLNormal6.4-8.2The [facility] Comment on above:Performed By: #### CMP, TSH #### [facility] [address] [address] [address] Cipriano SimonSodium [Moles/Vol]139 mmol/CZkppdl026-221Aju [facility] Comment on above:Performed By: #### CMP, TSH #### [facility] [address] [address] [address] Cipriano SimonUrea nitrogen [Mass/Vol]14.0 mg/dLNormal7.0-18.0[facility] AdministrationComment on above:Performed By: #### CMP, TSH #### [facility] [address] [place] [address] Dr. Cipriano SimonUrea nitrogen/Creatinine [Mass ratio]14.7 mg/mgNoSelect Medical TriHealth Rehabilitation HospitalComment on above:Performed By: #### CMP, TSH #### [facility] [address] [place] [address] Dr. Cipriano Miles 68-58-6534DDA6.540 uIU/mLNormal0.358-3.740The [facility] on above:Performed By: #### CMP, TSH #### [facility] [address] [place] [address] Dr. Cipriano SimonTESTOSTERONE, TOTALon 67-46-0410Frvmqjdkeuot [Mass/Vol]906 ng/dL Cosgqn435-553Pyy [facility] SystemComment on above:Result Comment: Adult male reference interval is based on a population of healthy nonobese males (BMI <30) between 19 and 39 years old. alva Ferrera.al. JCEM 2017,102;2413-0028. PMID: [id number].Performed By: #### CMP, TSH #### [facility] [address] [place] [address] Dr. Cipriano SimonGLYCOHEMOGLOBIN A1Con 95-97-1127ITK RECOMMENDATIONSEE BELOWNormal The [facility] on above:Result Comment: ADA RECOMMENDED LIMIT 4.0 - 6.0 ADA THERAPEUTIC TARGET < 7.0 ACTION SUGGESTED > 7.0Performed By: #### A1C #### [facility] [address] [place] [address] Dr. Cipriano SimonGlucose [Mass/Vol]171 mg/dLNoSelect Medical TriHealth Rehabilitation HospitalComment on above:Performed By: #### A1C #### [facility] [address] [address] [address] Cipriano SimonHbA1c (Bld) [Mass fraction]7.6 %Critically high4.5-6.2[facility] AdministrationComment on above:Performed By: #### A1C #### [facility] [address] [address] [address] Cipriano SimonXR KUB 1 VIEWon 92-50-4346ZQ KUB 1 VIEWEXAMINATION: XR KUB 1 VIEW HISTORY: Kidney stone [...] Electronically authenticated by: CASE SANDY Date: 2022-03-15 08:36[facility]XR LSPINE 2_3 VIEWSon 40-17-5045VJ LSPINE 2_3 VIEWSEXAMINATION: XR LSPINE 2_3 VIEWS HISTORY: Spondylosis without [...] Electronically authenticated by: CASE SANDY Date: 2022-03-15 08:44[facility] HealthAMYLASEon 09-54-7700Rdwuvap [Catalytic activity/Vol]55 U/L Oksqdq18-806Rfp [facility]Comment on above:Performed By: #### CMP, LIPA, CMADM, RISSA #### [facility] [address] [address] [address] Cipriano Nieves MELINDA ADMITon 18-70-3191VJ [Catalytic activity/Vol]76 U/L Rdzslc83-450Svv [facility] SystemComment on above:Performed By: #### CMP, LIPA, CMADM, RISSA #### [facility] [address] [place] [address] Dr. Cipriano Chung.MB [Mass/Vol]ng/mLNormal<=3.60The [facility] SystemComment on above:Performed By: #### CMP, LIPA, CMADM, RISSA #### [facility] [address] [place] [address] Dr. Cipriano RobbinsTROP4.8 pg/mLNormal4.0-76.1The [facility] on above:Result Comment: CUT-OFF POINTS HAVE BEEN ESTABLISHED BASED ON THE FOURTH UNIVERSAL DEFINITIONS OF MYOCARDIAL INFARCTION. THE UPPER REFERENCE LIMIT (URL) OF TROPONIN, DEFINED THE 99TH PERCENTILE OF cTnI DISTRIBUTION IN A REFERENCE POPULATION, HAS BEEN CONFIRMED THE DECISION THRESHOLD FOR [place] DIAGNOSIS.Performed By: #### CMP, LIPA, CMADM, RISSA #### [facility] [address] [place] [address] Dr. Cipriano HughesO33 ng/uUFhyugt18-54Sat [facility] SystemComment on above: Performed By: #### CMP, LIPA, CMADM, RISSA #### [facility] [address] [place] [address] Dr. Cipriano Ball AUTO DIFFon 45-31-3664GDZQ #0.0 103/ulNormal0.0-0.1The [facility] SystemComment on above:Performed By: #### A1C #### [facility] [address] [place] [address] Dr. Cipriano Ruizphils/100 WBC (Bld)0.3 %Normal0.2-2.0The [facility] Comment on above:Performed By: #### A1C #### [facility] [address] [place] [address] Dr. Yilan ChangEO #0.1 103/ulNormal0.0-0.7The [facility] on above: Performed By: #### A1C #### [facility] [address] [place] [address] Dr. Cipriano Jacomeosinophils/100 WBC (Bld)1.7 %Normal0.9-7.0The [facility] Comment on above:Performed By: #### A1C #### [facility] [address] [place] [address] Dr. Cipriano Jacomerythrocyte distribution width (RBC) [Ratio]12.7 %Fzqxxq82.0-15.0 The [facility] System[facility] on above:Performed By: #### A1C #### [facility] [address] [place] [address] Dr. Cipriano SimonHematocrit (Bld) [Volume fraction]43.3 %Jkbqpm25.0-54.0The [facility] SystemComment on above:Performed By: #### A1C #### [facility] [address] [place] [address] Dr. Cipriano SimonHemoglobin (Bld) [Mass/Vol]15.1 g/nHLwsrnb33.0-18.0The [facility] SystemComment on above:Performed By: #### A1C #### [facility] [address] [place] [address] Dr. Cipriano Fuller #0.04 10e3/ulCritically high0.00-0.03The [facility] Comment on above:Performed By: #### A1C #### [facility] [address] [place] [address] Dr. Cipriano Fuller %0.6 %Critically high0.0-0.5The [facility] on above:Performed By: #### A1C #### [facility] [address] [place] [address] Dr. Cipriano Al #2.9 103/ulNormal1.2-3.8The [facility] on above:Performed By: #### A1C #### [facility] [address] [place] [address] Dr. Cipriano Godfreymphocytes/100 WBC (Bld)42.1 %Mqvnpt65.5-60.0The [facility] System[facility] on above:Performed By: #### A1C #### [facility] [address] [place] [address] Dr. Cipriano SpencerUAL DIFF REQNONormalThe [facility] on above: Performed By: #### A1C #### [facility] [address] [place] [address] Dr. Cipriano Currie (RBC) [Entitic mass]29.5 qqHluest36.9-34.0The [facility] System[facility] on above:Performed By: #### A1C #### [facility] [address] [place] [address] Dr. Cipriano Currie (RBC) [Mass/Vol]34.9 g/wJHzgpov47.9-35.2The [facility] on above:Performed By: #### A1C #### [facility] [address] [place] [address] Dr. Cipriano Currie (RBC) [Entitic vol]84.7 qUNhsjzq11.0-94.0The [facility] System[facility] on above:Performed By: #### A1C #### [facility] [address] [place] [address] Dr. Cipriano Loera #0.4 103/ulNormal0.3-0.8The [facility] on above:Performed By: #### A1C #### [facility] [address] [place] [address] Dr. Cipriano Fordocytes/100 WBC (Bld)5.5 %Normal1.7-12.0The [facility] Comment on above:Performed By: #### A1C #### [facility] [address] [place] [address] Dr. Cipriano Marsh #3.4 103/ulNormal1.4-6.5The [facility] on above:Performed By: #### A1C #### [facility] [address] [place] [address] Dr. Cipriano SimonNeutrophils/100 WBC (Bld)49.8 %Ixjlzr31.0-75.0The [facility] on above:Performed By: #### A1C #### [facility] [address] [place] [address] Dr. Cipriano SimonPlatelet mean volume (Bld) [Entitic vol]9.4 fLCritically low 9.5-13.5The [facility]Comment on above:Performed By: #### A1C #### [facility] [address] [place] [address] Dr. Cipriano SimonPLT238 103/mnVspjqc464-009Jik [facility] SystemComment on above: Performed By: #### A1C #### [facility] [address] [place] [address] Dr. Cipriano SimonRBC5.11 106/ulNormal4.70-6.10The [facility] on above:Performed By: #### A1C #### [facility] [address] [place] [address] Dr. Cipriano SimonWBC6.9 103/ulNormal4.0-11.0The [facility] on above: Performed By: #### A1C #### [facility] [address] [place] [address] Dr. Cipriano SimonLACTATE/LACTIC ACIDon 14-07-6135Lidnuiz [Moles/Vol]1.2 mmol/L Normal0.4-1.9[facility] on above:Performed By: #### A1C #### [facility] [address] [place] [address] Dr. Cipriano SimonLIPASEon 94-46-5036Qmzgob [Catalytic activity/Vol]89.0 U/LNormal 73.0-393.0The [facility] on above:Performed By: #### CMP, LIPA, CMADM, RISSA #### [facility] [address] [place] [address] Dr. Cipriano SimonPROF 14(COMP METB)on 64-71-8998Zlelqsn [Mass/Vol]3.8 g/dLNormal 3.4-5.0The [facility] on above:Performed By: #### CMP, LIPA, CMADM, RISSA #### [facility] [address] [place] [address] Dr. Cipriano SimonAlbumin/Globulin [Mass ratio]1.1 {ratio}NormalThe [facility]Comment on above:Performed By: #### CMP, LIPA, CMADM, RISSA #### [facility] [address] [place] [address] Dr. Cipriano Almonte [Catalytic activity/Vol]111 U/ZPrnuqb78-902Skb [facility] SystemComment on above:Performed By: #### CMP, LIPA, CMADM, RISSA #### [facility] [address] [place] [address] Dr. Cipriano Vale [Catalytic activity/Vol]41 U/OVguxox78-58Xjd [facility] SystemComment on above:Performed By: #### CMP, LIPA, CMADM, RISSA #### [facility] [address] [place] [address] Dr. Cipriano Lr gap [Moles/Vol]11.5 mmol/LNormalThe [facility] Comment on above:Performed By: #### CMP, LIPA, CMADM, RISSA #### [facility] [address] [place] [address] Dr. Cipriano Mcdonnell [Catalytic activity/Vol]16 U/WTfnaca89-78Xvv [facility]ment on above:Performed By: #### CMP, LIPA, CMADM, RISSA #### [facility] [address] [place] [address] Dr. Cipriano SimonBilirubin [Mass/Vol]0.5 mg/dLNormal0.2-1.0The [facility] Comment on above:Performed By: #### CMP, LIPA, CMADM, RISSA #### [facility] [address] [place] [address] Dr. Cipriano SimonCalcium [Mass/Vol]9.0 mg/dLNormal8.5-10.1[facility] Comment on above:Performed By: #### CMP, LIPA, CMADM, RISSA #### [facility] [address] [address] [address] Cipriano SimonChloride [Moles/Vol]101 mmol/XKwqsvn13-664Bgv [facility] Comment on above:Performed By: #### CMP, LIPA, CMADM, RISSA #### [facility] [address] [place] [address] Dr. Cipriano SimonCO2 [Moles/Vol]26.1 mmol/LUtgjjr47.0-32.0The [facility] Comment on above:Performed By: #### CMP, LIPA, CMADM, RISSA #### [facility] [address] [place] [address] Dr. Cipriano SimonCreatinine [Mass/Vol]0.84 mg/dLNormal0.70-1.30The [facility] on above:Performed By: #### CMP, LIPA, CMADM, RISSA #### [facility] [address] [place] [address] Dr. Cipriano JacomeGFR-AF IRAQI>60Normal>=60The [facility] on above:Performed By: #### CMP, LIPA, CMADM, RISSA #### [facility] [address] [place] [address] Dr. Cipriano JacomeGFR-NON AF IRAQI>60Normal>=60The [facility] System[facility] on above:Performed By: #### CMP, LIPA, CMADM, RISSA #### [facility] [address] [place] [address] Dr. Cipriano SimonGlobulin (S) [Mass/Vol]3.4 g/dLNormalThe [facility]Comment on above:Performed By: #### CMP, LIPA, CMADM, RISSA #### [facility] [address] [place] [address] Dr. Cipriano SimonGlucose [Mass/Vol]245 mg/dLCritically yldj69-801Ojw [facility] SystemComment on above:Performed By: #### CMP, LIPA, CMADM, RISSA #### [facility] [address] [address] [address] Cipriano SimonPotassium [Moles/Vol]3.6 mmol/LNormal3.5-5.1The [facility] Comment on above:Performed By: #### CMP, LIPA, CMADM, RISSA #### [facility] [address] [address] [address] Cipriano SimonProtein [Mass/Vol]7.2 g/dLNormal6.4-8.2The [facility] Comment on above:Performed By: #### CMP, LIPA, CMADM, RISSA #### [facility] [address] [address] [address] Cipriano SimonSodium [Moles/Vol]135 mmol/LCritically lhg697-763Upm [facility] SystemComment on above:Performed By: #### CMP, LIPA, CMADM, RISSA #### [facility] [address] [address] [address] Cipriano SimonUrea nitrogen [Mass/Vol]13.0 mg/dLNormal7.0-18.0The [facility] SystemComment on above:Performed By: #### CMP, LIPA, CMADM, RISSA #### [facility] [address] [address] [address] Cipriano Beasley nitrogen/Creatinine [Mass ratio]15.5 mg/mgNormalThe [facility] SystemComment on above:Performed By: #### CMP, LIPA, CMADM, RISSA #### [facility] [address] [address] [address] Cipriano SimonXR ABD FLAT UP_PA Venkat 72-52-6580XO ABD FLAT UP_PA CHEXAM: XR ABD FLAT UP_PA CH COMPARISON: CT [...] Electronically authenticated by: BRIA WELLINGTON Date: 2022-01-25 02:00[facility] AUTO DIFFon 85-97-9598POCZ #0.0 103/ulNormal0.0-0.1The [facility] on above:Performed By: #### CMP, TSH #### [facility] [address] [place] [address] Dr. Cipriano SimonBasophils/100 WBC (Bld)0.5 %Normal0.2-2.0[facility] Comment on above:Performed By: #### CMP, TSH #### [facility] [address] [place] [address] Dr. Cipriano Aguirre #0.2 103/ulNormal0.0-0.7The [facility] System[facility] on above: Performed By: #### CMP, TSH #### [facility] [address] [place] [address] Dr. Cipriano Jacomeosinophils/100 WBC (Bld)2.9 %Normal0.9-7.0[facility] Comment on above:Performed By: #### CMP, TSH #### [facility] [address] [place] [address] Dr. Cipriano Jacomerythrocyte distribution width (RBC) [Ratio]13.0 %Rafayu09.0-15.0 [facility] AdministrationComment on above:Performed By: #### CMP, TSH #### [facility] [address] [place] [address] Dr. Cipriano SimonHematocrit (Bld) [Volume fraction]44.9 %Zgspxv61.0-54.0[facility] AdministrationComment on above:Performed By: #### CMP, TSH #### [facility] [address] [place] [address] Dr. Cipriano SimonHemoglobin (Bld) [Mass/Vol]15.7 g/kNOmbrhe39.0-18.0The [facility] on above:Performed By: #### CMP, TSH #### [facility] [address] [place] [address] Dr. Cipriano Fuller #0.03 10e3/ulNormal0.00-0.03The [facility] on above:Performed By: #### CMP, TSH #### [facility] [address] [place] [address] Dr. Cipriano Fuller %0.5 %Normal0.0-0.5The [facility] on above: Performed By: #### CMP, TSH #### [facility] [address] [place] [address] Dr. Cipriano Al #2.6 103/ulNormal1.2-3.8The [facility] SystemComment on above:Performed By: #### CMP, TSH #### [facility] [address] [place] [address] Dr. Cipriano Medinahocytes/100 WBC (Bld)44.6 %Anfpee56.5-60.0The [facility] on above:Performed By: #### CMP, TSH #### [facility] [address] [place] [address] Dr. Cipriano SpencerUAL DIFF REQNONormalThe [facility] SystemComment on above: Performed By: #### CMP, TSH #### [facility] [address] [place] [address] Dr. Cipriano Currie (RBC) [Entitic mass]29.7 qrMghrkq39.9-34.0The [facility] on above:Performed By: #### CMP, TSH #### [facility] [address] [place] [address] Dr. Cipriano Currie (RBC) [Mass/Vol]35.0 g/sQGhmejs01.9-35.2The [facility] SystemComment on above:Performed By: #### CMP, TSH #### [facility] [address] [place] [address] Dr. Cipriano Cochran (RBC) [Entitic vol]84.9 wJPtpxmk72.0-94.0The [facility] SystemComment on above:Performed By: #### CMP, TSH #### [facility] [address] [place] [address] Dr. Cipriano Loera #0.4 103/ulNormal0.3-0.8The [facility] HospitalComment on above:Performed By: #### CMP, TSH #### [facility] [address] [place] [address] Dr. Cipriano Fordocytes/100 WBC (Bld)7.0 %Normal1.7-12.0The [facility] Comment on above:Performed By: #### CMP, TSH #### [facility] [address] [place] [address] Dr. Cipriano Marsh #2.6 103/ulNormal1.4-6.5The [facility] SystemComment on above:Performed By: #### CMP, TSH #### [facility] [address] [place] [address] Dr. Cipriano Foxutrophils/100 WBC (Bld)44.5 %Ktisqb39.0-75.0The [facility] SystemComment on above:Performed By: #### CMP, TSH #### [facility] [address] [place] [address] Dr. Cipriano White mean volume (Bld) [Entitic vol]9.3 fLCritically low 9.5-13.5The [facility] SystemComment on above:Performed By: #### CMP, TSH #### [facility] [address] [place] [address] Dr. Cipriano SimonPLT215 103/chPsnuuy506-273Rnf [facility] SystemComment on above: Performed By: #### CMP, TSH #### [facility] [address] [place] [address] Dr. Cipriano SimonRBC5.29 106/ulNormal4.70-6.10The [facility] SystemComment on above:Performed By: #### CMP, TSH #### [facility] [address] [place] [address] Dr. Cipriano SimonWBC5.9 103/ulNormal4.0-11.0[facility] on above: Performed By: #### CMP, TSH #### [facility] [address] [place] [address] Dr. Cipriano SimonGLYCOHEMOGLOBIN A1Con 09-00-9587ZCE RECOMMENDATIONSEE BELOWAvita Health System Galion HospitalComment on above:Result Comment: ADA RECOMMENDED LIMIT 4.0 - 6.0 ADA THERAPEUTIC TARGET < 7.0 ACTION SUGGESTED > 7.0Performed By: #### A1C #### [facility] [address] [place] [address] Dr. Cipriano SimonGlucose [Mass/Vol]169 mg/dLNormNewark HospitalComment on above:Performed By: #### A1C #### [facility] [address] [place] [address] Dr. Cipriano SimonHbA1c (Bld) [Mass fraction]7.5 %Critically high4.5-6.2[facility] AdministrationComment on above:Performed By: #### A1C #### [facility] [address] [place] [address] Dr. Cipriano SimonLIPID PROFILEon 51-23-4683VWXX-HDL RATIO NORMSEE [facility] on above:Result Comment: 3.3 - 4.4 LOW RISK 4.4 - 7.1 AVERAGE RISK 7.1 - 11.0 MODERATE RISK >11.0 HIGH RISKPerformed By: #### CMP, TSH #### [facility] [address] [place] [address] Dr. Cipriano SimonCholesterol [Mass/Vol]185 mg/dLNormal<=200[facility] Comment on above:Performed By: #### CMP, TSH #### [facility] [address] [place] [address] Dr. Cipriano SimonCholesterol in HDL [Mass/Vol]39 mg/dLCritically kbp21-92Lkw [facility] above:Performed By: #### CMP, TSH #### [facility] [address] [place] [address] Dr. Cipriano SimonCholesterol in LDL [Mass/Vol]99.2 mg/dLWilson HealthComment on above:Performed By: #### CMP, TSH #### [facility] [address] [place] [address] Dr. Cipriano Hullesterol.total/Cholesterol in HDL [Mass ratio]4.7 {ratio} NormalThe [facility] on above:Performed By: #### CMP, TSH #### [facility] [address] [place] [address] Dr. Cipriano Guzman NORMAL> or = 60 mg/dl - LOW CARDIOVASCULAR RISK <40 mg/dl - HIGH CARDIOVASCULAR RISKNoSelect Medical TriHealth Rehabilitation HospitalComment on above:Performed By: #### CMP, TSH #### [facility] [address] [place] [address] Dr. Cipriano SimonLDL CALC NORMALSEE BELOWWilson HealthComment on above:Result Comment: <100 mg/dl OPTIMAL 100 - 129 mg/dl NEAR OR ABOVE OPTIMAL 130 - 159 mg/dl BORDERLINE HIGH 160 - 189 mg/dl HIGH >190 mg/dl VERY HIGH Performed By: #### CMP, TSH #### [facility] [address] [place] [address] Dr. Cipriano SimonTriglyceride [Mass/Vol]234 mg/dLCritically high<=150The [facility]Comment on above:Performed By: #### CMP, TSH #### [facility] [address] [place] [address] Dr. Cipriano SimonVLDL CALC46.8 mg/dLNoSelect Medical TriHealth Rehabilitation HospitalComment on above: Performed By: #### CMP, TSH #### [facility] [address] [place] [address] Dr. Cipriano SimonMICROALBUMIN, RAND URon 85-63-1230eXXC<1.3Normal<=30.0The [facility] SystemComment on above:Performed By: #### MALBR #### [facility] [address] [place] [address] Dr. Cipriano Foreman 14(COMP METB)on 54-63-4241Nbvtfli [Mass/Vol]3.9 g/dLNormal 3.4-5.0The [facility] SystemComment on above:Performed By: #### CMP, TSH #### [facility] [address] [place] [address] Dr. Cipriano SimonAlbumin/Globulin [Mass ratio]1.1 {ratio}NormalThe [facility] SystemComment on above:Performed By: #### CMP, TSH #### [facility] [address] [place] [address] Dr. Cipriano Almonte [Catalytic activity/Vol]96 U/ARgbdcz57-260Dwk [facility] SystemComment on above:Performed By: #### CMP, TSH #### [facility] [address] [place] [address] Dr. Cipriano Vale [Catalytic activity/Vol]51 U/QYfsmbl63-80Yem [facility] SystemComment on above:Performed By: #### CMP, TSH #### [facility] [address] [place] [address] Dr. Cipriano Lr gap [Moles/Vol]13.4 mmol/LNormalThe [facility] Comment on above:Performed By: #### CMP, TSH #### [facility] [address] [place] [address] Dr. Cipriano SimonAST [Catalytic activity/Vol]15 U/ZEryfdu49-68Pcv [facility] SystemComment on above:Performed By: #### CMP, TSH #### [facility] [address] [place] [address] Dr. Cipriano SimonBilirubin [Mass/Vol]0.8 mg/dLNormal0.2-1.0The [facility] Comment on above:Performed By: #### CMP, TSH #### [facility] [address] [place] [address] Dr. Cipriano SimonCalcium [Mass/Vol]8.8 mg/dLNormal8.5-10.1The [facility] Comment on above:Performed By: #### CMP, TSH #### [facility] [address] [place] [address] Dr. Cipriano SimonChloride [Moles/Vol]105 mmol/NGquacj58-622Wdg [facility] Comment on above:Performed By: #### CMP, TSH #### [facility] [address] [place] [address] Dr. Cipriano SimonCO2 [Moles/Vol]25.4 mmol/LSqeyij91.0-32.0The [facility] Comment on above:Performed By: #### CMP, TSH #### [facility] [address] [place] [address] Dr. Cipriano SimonCreatinine [Mass/Vol]0.91 mg/dLNormal0.70-1.30The [facility] SystemComment on above:Performed By: #### CMP, TSH #### [facility] [address] [place] [address] Dr. Cipriano JacomeGFR-AF IRAQI>60Normal>=60The [facility] SystemComment on above:Performed By: #### CMP, TSH #### [facility] [address] [place] [address] Dr. Cipriano JacomeGFR-NON AF IRAQI>60Normal>=60The [facility] SystemComment on above:Performed By: #### CMP, TSH #### [facility] [address] [place] [address] Dr. Cipriano SimonGlobulin (S) [Mass/Vol]3.6 g/dLNormalThe [facility] SystemComment on above:Performed By: #### CMP, TSH #### [facility] [address] [place] [address] Dr. Cipriano SimonGlucose [Mass/Vol]198 mg/dLCritically yiyy60-277Ink [facility] SystemComment on above:Performed By: #### CMP, TSH #### [facility] [address] [place] [address] Dr. Cipriano SimonPotassium [Moles/Vol]3.8 mmol/LNormal3.5-5.1The [facility] Comment on above:Performed By: #### CMP, TSH #### [facility] [address] [address] [address] Cipriano SimonProtein [Mass/Vol]7.5 g/dLNormal6.4-8.2The [facility] Comment on above:Performed By: #### CMP, TSH #### [facility] [address] [address] [address] Cipriano SimonSodium [Moles/Vol]140 mmol/UDdegdp403-469Ihk [facility] Comment on above:Performed By: #### CMP, TSH #### [facility] [address] [address] [address] Cipriano SimonUrea nitrogen [Mass/Vol]13.0 mg/dLNormal7.0-18.0The [facility] SystemComment on above:Performed By: #### CMP, TSH #### [facility] [address] [place] [address] Dr. Cipriano Beasley nitrogen/Creatinine [Mass ratio]14.3 mg/mgNoSelect Medical TriHealth Rehabilitation HospitalComment on above:Performed By: #### CMP, TSH #### [facility] [address] [place] [address] Dr. Cipriano SimonVITAMIN B12on 56-74-0469Ooyohmvdj (Vitamin B12) [Mass/Vol]647.0 pg/vKUqkcfh417.0-986.0The [facility] SystemComment on above:Performed By: #### CMP, TSH #### [facility] [address] [place] [address] Dr. Cipriano SimonGLYCOHEMOGLOBIN A1Con 24-77-2324WUK RECOMMENDATIONADA THERAPEUTIC TARGET 6.0 - 7.0 ACTION SUGGESTED > 7.0NoSelect Medical TriHealth Rehabilitation HospitalComment on above:Performed By: #### CMP, TSH #### [facility] [address] [place] [address] Dr. Cipriano SimonGlucose [Mass/Vol]148 mg/dLNoSelect Medical TriHealth Rehabilitation HospitalComment on above:Performed By: #### CMP, TSH #### [facility] [address] [address] [address] Cipriano SimonHbA1c (Bld) [Mass fraction]6.8 %Critically high<=6.0The [facility] on above:Performed By: #### CMP, TSH #### [facility] [id number] Cipriano SimonAnesthesia Recordon 13-07-0466Ziozlmyfze RecordPatient: RIC BERRY MRN: [id number] Age: 60 years Sex: Male : 1960 Associated Diagnoses: None Author: Sergo David MD Procedure Time Out [place] Protocol: patient identity verified, site verified, side [...] local infiltration at L3/4. 24 g Pencan spinalneedle placed. Clear CSF. Subarachnoid injection without pain [...] Diagnosis Preoperative Diagnosis: m16.12 Postoperative Diagnosis: m16.[address]-1076DL NursingNormalMoWyandot Memorial HospitalPACU I Nursingon 54-13-7247ANFL I NursingCO NA PACU I Nursing Record Summary Primary Physician: Quentin Ramirez MD Finalized Date/Time: 12/30/20 12:49:47 Pt. Name: RIC BERRY/Sex: 1960 Male Med Rec #: [id number] Physician: Financial #: [id number] Pt. Type: A Room/Bed: / Admit/Disch: 12/30/20 [...] I Case Attendees Entry 1 Case Attendee Nic BAUM , Janell Barajas RN Last Modified By: Janell Lucero RN 12/30/20 11:14:22 Finalized By: Mendoza Soto RN Document Signatures Signed By: Mendoza Soto RN 12/30/20 12:49NormalBethesda North HospitalPreOp Nursingon 86-04-1328MgbGs NursingCO NA PreOp Nursing Record Summary Primary Physician: Quentin Ramirez MD Finalized Date/Time: 12/30/20 09:42:21 Pt. Name: RIC BERRY/Sex: 1960 Male Med Rec #: [id number] Physician: Financial #: [id number] Pt. Type: A Room/Bed: / Admit/Disch: 12/30/20 [...] Signatures Signed By: Fernando Zimmerman RN 12/30/20 09:42NormalMount J.W. Ruby Memorial HospitalXR Pelvis 1-2 Viewson [id number] Pelvis 1 or 2 ViewsEXAM: XR Pelvis 1-2 Views HISTORY: Postoperative COMPARISON: None. TECHNIQUE: AP radiograph of the pelvis. FINDINGS: There is a left total hip arthroplasty with surrounding postprocedural change. Hardware is intact. Alignment is within expected limits. Partially evaluated right hip is unremarkable. IMPRESSION: Left total hip arthroplasty, as above. Mercedes Kuhn thanks you for the opportunity to care for your patient. Workstation ID: [id number] FINAL REPORT Dictated By: Latonya Hampton MD 12/30/2020 13:05 Assigned Physician: Laotnya Hampton MD Reviewed and Electronically Signed By: Latonya Hampton MD 12/30/2020 13:06 Transcribed by: CRISTINA 12/30/2020 13:05 Technologist: EjDevalencia J.[facility]. Ruby Memorial HospitalComment on above:Order Comment: Postoperative, s/p THABasic metabolic 2000 panelon 79-46-8570Zvepwld [Mass/Vol] 9.6 mg/dLNormal8.5-10.6MBlanchard Valley Health SystemChloride [Moles/Vol]103 mmol/L Ytdmgn97-973Diwgp [facility] Memorial HospitalCO2 [Moles/Vol]25 mmol/XWbkdqa49-26Ekmxv [facility] HospitalCreatinine [Mass/Vol]0.81 mg/dLNormal0.70-1.30Mount [facility] HospitalGlucose [Mass/Vol]133 mg/uPUdba08-10YnasoBlanchard Valley Health System Potassium [Moles/Vol]4.2 mmol/LNormal3.5-5.1[facility] Hospitalodium [Moles/Vol]139 mmol/CGpaguq955-820Jjiyc [facility] Memorial HospitalUrea nitrogen (BldV) [Mass/Vol]15 mg/dLNormal7.0-18.0Mount [facility]. [facility] HospitalUrea nitrogen/Creatinine [Mass ratio]19 mg/mgNormalMount J.W. Ruby Memorial HospitalCBC W Auto Differential panel (Bld)on 33-11-9059Xsmwtlmsi (Bld) [#/Vol]0.0 thou/mcL Normal0.0-0.2Mount [facility] HospitalBasophils/100 WBC (Bld)0.4 %Normal0-3 [facility] HospitalDifferential cell count method Nom (Bld)AUTOMATED DIFFERENTIALNormalMount J.W. Ruby Memorial HospitalEosinophils (Bld) [#/Vol]0.1 thou/mcLNormal0.0-0.4Mount [facility]. [facility] HospitalEosinophils/100 WBC (Bld)2.4 % Normal0-7Mount [facility]. [facility] Memorial HospitalLymphocytes (Bld) [#/Vol]2.4 thou/mcLNormal 0.7-4.5Mount [facility]. [facility] HospitalLymphocytes/100 WBC (Bld)49.7 %Ksnz31-86Vrlfl [facility]. [facility] HospitalMonocytes (Bld) [#/Vol]0.4 thou/mcLNormal0.1-1.0Mount [facility]. [facility] HospitalMonocytes/100 WBC (Bld)8.1 %Normal4-13[facility] Neutrophils (Bld) [#/Vol]1.9 thou/mcLNormal1.5-7.8[facility] Neutrophils/100 WBC (Bld)39.4 %Ijs91-05Tlwjf [facility]. [facility] Memorial HospitalErythrocyte distribution width (RBC) [Entitic vol]13.4 %Zjfglv60.7-15.0Mount [facility]. [facility] HospitalHematocrit (Bld) [Volume fraction]46.0 %Uysowz05.0-50.0Mount [facility]. [facility] HospitalHemoglobin (Bld) [Mass/Vol]15.7 g/nJHzuqna08.5-17.0[facility] HospitalMCH (RBC) [Entitic mass]30.5 GgflgokbiUqgpiz82.0-34.0Mount [facility]. [facility] Memorial HospitalMCHC (RBC) [Mass/Vol]34.1 g/bZCkwaqt04.0-36.0Mount [facility] HospitalMCV (RBC) [Entitic vol]89.3 nIIawygx48-97Rmula [facility] Memorial HospitalPlatelet mean volume (Bld) [Entitic vol]9.5 fLNormal7.5-11.2[facility] Platelets (Bld) [#/Vol]271 thou/gqYHwvccx290-488Rumqi [facility] HospitalRBC (Bld) [#/Vol]5.15 x(10)6/mcLNormal3.80-5.60Mount [facility]. [facility] Memorial HospitalWBC (Bld) [#/Vol]4.9 thou/mcLNormal4.0-10.5[facility] Vital Signs Date TimeVital SignValuePerforming TutztlzisGkdfbzaa13-62-2059 10:50-0400Body futqyi710.99 cmBenjamin Ball DO Work Phone: [phone] [place], [place] 0323510-22-2025 10:50-0400 Body mass index (BMI) [Ratio]30.6 kg/o9Ewkntdqq Ball DO Work Phone: [phone]10-22-2025 10:50-0400 Body mvxjko80.58 kgBenjamin Ball DO Work Phone: [phone]10-22-2025 10:50-0400 Diastolic blood aqtofwsk40 mm[Hg]Christopher Ball DO Work Phone: [phone] [place], [place] 0323510-22-2025 10:50-0400 Heart rate78 /minBenjamin Ball DO Work Phone: [phone] [place], [place] 0323510-22-2025 10:50-0400 Respiratory rate12 /minBenjamin Ball DO Work Phone: [phone]10-22-2025 10:50-0400 Systolic blood piexhdll303 mm[Hg]Christopher Ball DO Work Phone: [phone] [place], [place] 4650808-14-2025 10:21-0400 Body kwvfos129.99 cmBenjamin Ball DO Work Phone: [phone] [place], [place] 4650808-14-2025 10:21-0400 Body mass index (BMI) [Ratio]30.3 kg/k6Elrdyycd Ball DO Work Phone: [phone] [place], [place] 4650808-14-2025 10:21-0400 Body actrhd04.79 kgBenjamin Ball DO Work Phone: [phone] [place], [place] 4650808-14-2025 10:21-0400 Diastolic blood oqptaxgb22 mm[Hg]Christopher Ball DO Work Phone: [phone] [place], [place] 4650808-14-2025 10:21-0400 Heart rate74 /minBenjamin Ball DO Work Phone: [phone] [place], [place] 4650808-14-2025 10:21-0400 Respiratory rate12 /minBenjamin Ball DO Work Phone: [phone] [place], [place] 4650808-14-2025 10:21-0400 Systolic blood vvifgogu213 mm[Hg]Christopher Ball DO Work Phone: [phone] [place], [place] 4650807-22-2025 15:56-0400 Body sktanr499.99 cmBenjamin Ball DO Work Phone: [phone] [place], [place] 4650807-22-2025 15:56-0400 Body mass index (BMI) [Ratio]30.4 kg/j0Xwdudolr Ball DO Work Phone: [phone] [place], [place] 4650807-22-2025 15:56-0400 Body xlzucz85.07 kgBenjamin Ball DO Work Phone: [phone] [place], [place] 4650807-22-2025 15:56-0400 Diastolic blood gyrerjhw65 mm[Hg]Christopher Ball DO Work Phone: [phone] [place], [place] 4650807-22-2025 15:56-0400 Heart rate80 /minBenjamin Ball DO Work Phone: [facility]07-22-2025 15:56-0400 Respiratory rate12 /minBenjamin Ball DO Work Phone: [facility]07-22-2025 15:56-0400 SaO2% (BldA) [Mass fraction]98 %Christopher Ball DO Work Phone: [facility]07-22-2025 15:56-0400 Systolic blood ftuytkcc170 mm[Hg]Christopher Ball DO Work Phone: [facility]05-06-2025 14:48-0400 Body nqfzyr645.99 cmPremier Health [facility]05-06-2025 14:48-0400Body mass index (BMI) [Ratio]30.7 kg/n7ZcuvycxlbPrem[facility] Health [facility]05-06-2025 14:48-0400Body .21 kgPrem[facility] Health [facility]05-06-2025 14:48-0400Diastolic blood gxcbpeil11 mm[Hg][facility] 10-15-2024 14:48-0400Heart rate93 /[facility] 10-15-2024 14:48-0400Respiratory rate12 /[facility] 10-15-2024 14:48-0400Systolic blood gtuchusy880 mm[Hg][facility]04-29-2025 14:33-0400Body mntyuu321.99 cmPremier Health [facility]04-29-2025 14:33-0400Body mass index (BMI) [Ratio]31.3 kg/m0BvuerlragPrem[facility] Health [facility]04-29-2025 14:33-0400Body iibsfs61.85 kgPrem[facility] Health [facility]04-29-2025 14:33-0400Diastolic blood wdsuxgqt27 mm[Hg] [facility]04-29-2025 14:33-0400Heart rate80 /[facility]04-29-2025 14:33-0400Respiratory rate12 /[facility]04-29-2025 14:33-0400Systolic blood kzqkjxzi720 mm[Hg] [facility]04-11-2025 09:00-0400Heart rate86 /minKaylinn Dokken [address] [place], [place] 7200104-11-2025 09:00-5044MzN7% (BldA) [Mass fraction]95 %Kaylinn Dokken [address] [place], [place] 7200104-11-2025 09:00-0400 Diastolic blood mmrjitjf11 mm[Hg]Kaylinn Dokken [address] [place], [place] 7200104-11-2025 09:00-0400Mean blood ydceibwu236 mm[Hg]Kaylinn Dokken [address] [place], [place] 7200104-11-2025 09:00-0400 Respiratory rate18 /minKaylinn Dokken [address] [place], [place] 7200104-11-2025 09:00-0400 Systolic blood xhhjdadk101 mm[Hg]Kaylinn Dokken [address] [place], [place] 7200104-11-2025 08:02-0400Heart rate96 /minKaylinn Dokken [address] [place], [place] 7200104-11-2025 08:02-6724UfW6% (BldA) [Mass fraction]94 %Kaylinn Dokken [address] [place], [place] 7200104-11-2025 08:01-0400 Diastolic blood deizeoeu58 mm[Hg]Kaylinn Dokken [address] [place], [place] 7200104-11-2025 08:01-2529BfX9% (BldA) [Mass fraction]96 %Kaylinn Dokken [address] [place], [place] 7200104-11-2025 08:01-0400 Systolic blood dgzyaish821 mm[Hg]Kaylinn Dokken [address] [place], [place] 7200104-11-2025 08:01-0400Heart rate91 /minNicholeylinn Dokken [address] [place], [place] 7200104-11-2025 08:01-0400Mean blood ziistisr195 mm[Hg]Brentinn Dokken [address] [place], [place] 7200104-11-2025 08:01-0400 Respiratory rate16 /minNicholeylinn Dokken [address] [place], [place] 7200104-11-2025 06:32-0400Body ybssufgxuhq46.24 [degF]Solen Jean [address] [place], [place] 7200104-11-2025 06:32-0400 Diastolic blood tybktkqy83 mm[Hg]Solen Natashaen [address] [place], [place] 7200104-11-2025 06:32-0400Heart xsxq823 /minNicholeylinn Dopushpaen [address] [place], [place] 7200104-11-2025 06:32-0400 Respiratory rate20 /Beatan Dopushpaen [address] [place], [place] 7200104-11-2025 06:32-0400 Systolic blood kvxagjpi299 mm[Hg]Cindy Kauren [address] [place], [place] 7200104-08-2025 19:00-1345EiA3% (BldA) [Mass fraction]97 %Sergo Forde [address] [place], [place] 9598604-08-2025 19:00-0400Heart rate91 /anirudhSergo Eula [address] [place], [place] 7200104-08-2025 19:00-0400 Diastolic blood pqvqsohc60 mm[Hg]Sergo Eula [address] [place], [place] 7200104-08-2025 19:00-0400Mean blood mticksqz362 mm[Hg]Sergo Forde [facility]04-08-2025 19:00-0400 Systolic blood mm[Hg]Sergo Forde [facility]04-08-2025 18:30-6390EzF3% (BldA) [Mass fraction]100 %Sergo Forde [address] [place], [place] 9598604-08-2025 18:30-0400Heart rate89 /minJohn Eula [facility]04-08-2025 18:30-0400 Diastolic blood uhpwcgrk147 mm[Hg]Sergo Forde [address] [place], [place] 9598604-08-2025 18:30-0400Mean blood uheghqlq034 mm[Hg]Sergo Forde [address] [place], [place] 9598604-08-2025 18:30-0400 Respiratory rate18 /minJolaurent Forde [facility]04-08-2025 18:30-0400 Systolic blood seceuxfe869 mm[Hg]Sergo Forde [facility]04-08-2025 18:00-0863VnD1% (BldA) [Mass fraction]98 %Sergo Forde [facility]04-08-2025 18:00-0400Heart rate81 /minJohn Eula [facility]04-08-2025 18:00-0400 Diastolic blood xiiuedwr19 mm[Hg]Sergo Forde [facility]04-08-2025 18:00-0400Mean blood naosgncw828 mm[Hg]Sergo Forde [facility]04-08-2025 18:00-0400 Respiratory rate16 /minJohn Eula [facility]04-08-2025 18:00-0400 Systolic blood mm[Hg]Sergo Forde [facility]04-08-2025 16:36-0400Body ixithperewa04.52 [degF]Sergo Forde [facility]04-08-2025 16:36-0400Heart rate84 /Frantz Forde [facility]11-15-2024 14:56-0500Body mqvorz805.99 cmPrem[facility]11-15-2024 14:56-0500Body mass index (BMI) [Ratio]30.2 kg/n7ZilvarvwzPrem[facility] Health [facility]11-15-2024 14:56-0500Body egzjnm19.62 kgPrem[facility] Health [facility]11-15-2024 14:56-0500Diastolic blood awlrntqa71 mm[Hg][facility] 04-26-2024 14:56-0500Heart rate89 /minPremier Health [facility] 04-26-2024 14:56-0500Systolic blood osrtlkpe051 mm[Hg][facility]09-25-2024 15:55-0400Body minnti225.26 cmPrem[facility] Health [facility]09-25-2024 15:55-0400Body mass index (BMI) [Ratio]29.2 kg/e3WxotjgjtkPrem[facility] Health [facility]09-25-2024 15:55-0400Body mzesrh36.81 kgPrem[facility] Health [facility]09-25-2024 15:55-0400Diastolic blood hlezrlff62 mm[Hg] [facility]09-25-2024 15:55-0400Heart bbeg103 /min [facility]09-25-2024 15:55-0400Systolic blood ogcymzci747 mm[Hg][facility]08-06-2024 16:04-0400Body onmzsa902.26 cmPrem[facility] Health [facility]08-06-2024 16:04-0400Body mass index (BMI) [Ratio]29.7 kg/s7PnebtfsbpPrem[facility] Health [facility]08-06-2024 16:-0400Body ffbpce31.17 kgPremier Health [facility]08-06-2024 16:04-0400Diastolic blood mm[Hg][facility]08-06-2024 16:04-0400 Heart rate80 /[facility]08-06-2024 16:04-0400 Respiratory rate12 /[facility]08-06-2024 16:04-0400 Systolic blood cpowazwu892 mm[Hg][facility]04-26-2024 14:31-0400Body fapgkt345.26 cmPrem[facility] Health [facility]04-26-2024 14:31-0400Body mass index (BMI) [Ratio]29.2 kg/o5CjhxgwsasPrem[facility] Health [facility]04-26-2024 14:31-0400Body buqnnj01.81 kgPremier Health [facility] 10-06-2023 14:31-0400Diastolic blood rfouswdr70 mm[Hg][facility]04-26-2024 14:31-0400Heart rate88 /[facility] 10-06-2023 14:31-0400Systolic blood xylpthjf055 mm[Hg][facility]03-26-2024 11:43-0400Diastolic blood pdpxoajt25 mm[Hg]Johnnie Hutton MD Work Phone: [facility] [facility]03-26-2024 11:43-0400Systolic blood mm[Hg]Johnnie Hutton MD Work Phone: [facility]03-26-2024 11:30-0400Heart rate83 /Angélica Hutton MD Work Phone: [facility]03-26-2024 11:30-0400 Respiratory rate16 /Angélica Hutton MD Work Phone: [facility]03-26-2024 11:30-9156HcB3% (BldA) [Mass fraction]95 %Johnnie Hutton MD Work Phone: [employer]03-26-2024 10:56-0400Body eftmurgxbpy91.5 [degF]Johnnie Hutton MD Work Phone: [employer]03-26-2024 08:41-0400Body mkuovm793.3 cmThomcelina Hutton MD Work Phone: [facility] [employer]03-26-2024 08:41-0400Body mass index (BMI) [Ratio]27.35 kg/f8Zutwnzyunior Hutton MD Work Phone: [employer]03-26-2024 08:41-0400Body sweefk72.01 kgThyunior Hutton MD Work Phone: [employer]02-27-2024 15:09-0500Body eluxzw891.26 cmPrem[facility] Health [facility]02-27-2024 15:09-0500Body mass index (BMI) [Ratio]30.6 kg/j5WbzprapfwPrem[facility] Health [facility]02-27-2024 15:09-0500Body kgPremier Health [facility]02-27-2024 15:09-0500 Diastolic blood cbywkiff63 mm[Hg][facility]02-27-2024 15:09-0500Heart rate85 /[facility]02-27-2024 15:09-0500Respiratory rate12 /[facility]02-27-2024 15:09-0500Systolic blood mm[Hg][facility] 06-26-2023 15:00-0500Body .26 cmBenjamin Ball Other [employer] Other 01-15-2024 15:00-0500Body mass index (BMI) [Ratio] 29.86 kg/i5Ebyalnil Ball Other [employer] Other 01-15-2024 15:00-0500Body xmlujq79.72 kgBenjamin Ball Other [employer] Other 01-15-2024 15:00-0500Diastolic blood zenpvxpt65 mm[Hg] Christopher Ball Other [employer] Other 01-15-2024 15:00-0500Respiratory rate12 /minBenjamin Ball Other [employer] Other 01-15-2024 15:00-0500Systolic blood bvuqbjmy086 mm[Hg] Christopher Ball Other [employer] Other 10-03-2023 14:00-0400Body xzdcby965.26 cmBenjamin Ball Other [employer] Other 10-03-2023 14:00-0400Body mass index (BMI) [Ratio] 28.73 kg/n3Lzshswte Ball Other [facility] Other 10-03-2023 14:00-0400Body evxbxt35.27 kgBenjamin Ball Other [facility] Other 10-03-2023 14:00-0400Diastolic blood tifgtsvq89 mm[Hg] Christopher Ball Other [facility] Other 10-03-2023 14:00-0400Respiratory rate12 /minBenjamin Ball Other [facility] Other 10-03-2023 14:00-0400Systolic blood kfhpufso019 mm[Hg] Christopher Ball Other [facility] Other 07-12-2023 15:00-0400Body iwmnhe783.26 cmBenjamin Ball Other [employer] Other 07-12-2023 15:00-0400Body mass index (BMI) [Ratio] 28.97 kg/t6Vjwqtfby Ball Other [facility] Other 07-12-2023 15:00-0400Body kgBenjamin Ball Other [employer] Other 07-12-2023 15:00-0400Diastolic blood hygnrzwk86 mm[Hg] Christopher Ball Other [employer] Other 07-12-2023 15:00-0400Respiratory rate12 /minBenjamin Ball Other [employer] Other 07-12-2023 15:00-0400Systolic blood ildvfewb314 mm[Hg] Christopher Ball Other [employer] Other 06-17-2023 09:00-0400Body kvsumz361.26 Jose Vazquez Other [employer] Other 06-17-2023 09:00-0400Body mass index (BMI) [Ratio]28.5 kg/k3UcuzahKacey Vazquez Other [employer] Other 06-17-2023 09:00-0400Body npishtshgcm49.1 [degF]Kacey Vazquez Other [employer] Other 06-17-2023 09:00-0400Body zkjxul04.54 kgKacey Vazquez Other [employer] Other 06-17-2023 09:00-0400Diastolic blood ycgnxfsc31 mm[Hg] Kacey Vazquez Other [employer] Other 06-17-2023 09:00-0400Respiratory rate18 /minKacey Vazquez Other [employer] Other 06-17-2023 09:00-1081KiR3% (BldA) [Mass fraction]97 % Kacey Vazquez Other [employer] Other 06-17-2023 09:00-0400Systolic blood ktljkhun333 mm[Hg] Kacey Vazquez Other [employer] Other 05-01-2023 16:00-0400Body aoxbfc458.26 cmBenjamin Ball Other [employer] Other 05-01-2023 16:00-0400Body mass index (BMI) [Ratio] 28.59 kg/c1Jhdgppjd Ball Other [employer] Other 05-01-2023 16:00-0400Body .82 kgBenjamin Ball Other [employer] Other 05-01-2023 16:00-0400Diastolic blood rqoxbxiw45 mm[Hg] Christopher Ball Other [employer] Other 05-01-2023 16:00-8440MoE5% (BldA) [Mass fraction]96 % Christopher Ball Other [employer] Other 05-01-2023 16:00-0400Systolic blood dakgybux624 mm[Hg] Christopher [facility] Other 02-27-2023 15:45-0500Body ybtzrp164.26 cmBenjamin Ball Other [facility] Other 02-27-2023 15:45-0500Body mass index (BMI) [Ratio] 29.12 kg/i9Hknemant Ball Other [facility] Other 02-27-2023 15:45-0500Body .45 kgBenjamin Ball Other [facility] Other 02-27-2023 15:45-0500Diastolic blood tsryoevw51 mm[Hg] Christopher Ball Other [employer] Other 02-27-2023 15:45-0500Respiratory rate12 /minBenjamin Ball Other [facility] Other 02-27-2023 15:45-0500Systolic blood puzrtlkj062 mm[Hg] Christopher Ball Other [facility] Other 05-31-2022 08:53-0400Blood Pressure LocationLino Ansari Jr. executive [facility] 05-31-2022 08:53-0400Diastolic blood zyvywvvp22 mm[Hg] Lino Ansari Jr. executive [facility] 05-31-2022 08:53-0400Heart rate81 /Derrick Ansari Jr. executive [facility] 05-31-2022 08:53-0400Systolic blood hzkhbduu439 mm[Hg] Lino Ansari Jr. executive [facility] Encounters Encounter DateEncounter TypeCare ProviderFacilityStart: 04-02-2025 End: 70-74-4237kzxdunpfsqVpuywfvp Ball DO Work Phone: -[facility] ClinicStart: 04-02-2025 End: 97-55-4816Dvkezpt encounter procedureBenjamin Ball DO-[facility] Work Phone: Start: 60-36-5952zdoztfiuolJzmtvShahnaz Flowers OrthopedicsStart: 01-23-2025 End: 01-91-6823idnzvqhvluUdteyhma Ball DO Work Phone: [facility] Work Phone: Start: 01-23-2025 End: 53-72-6065Crqklvo encounter procedureBenjamin Ball DO-[facility] Work Phone: Start: 12-31-2024 End: 66-43-9440hnnkoloiijJrdnbwzi Ball DO Work Phone: [facility] Work Phone: Start: 12-31-2024 End: 62-41-7357Bfphvzy encounter procedureBenjamin Ball DO-[facility] Work Phone: Start: 10-21-3755jszhpwakmwXscuqShahnaz Flowers OrthopedicsStart: 10-17-2024 End: 28-62-7976owsnxzceviSFAQ D DORMercy Health St. Charles Hospitaltart: 10-17-2024 End: 54-37-3480Lgtafdwubo hospital visit by physicianSum[facility] UltrasoundComment on above:Ureteral calculusStart: 10-15-2024 End: 58-43-3163evitpuyjswEuzfnzjllCherrington Hospital Work Phone: Start: 10-15-2024 End: 32-36-4532Tkqdlbgdn for other preprocedural examinationUniversity Hospitals Cleveland Medical Centertart: 10-15-2024 End: 77-92-5046Nwnlyuy encounter procedureC[facility] Physician [facility] Work Phone: Start: 10-15-2024 End: 43-80-7484Tndwpii encounter statusUniversity Hospitals TriPoint Medical Centertart: 86-32-4277Qln-patient / Non-visitF[facility]in[facility] Phys[facility] Work Phone: Start: 65-72-1427tsjuypkhtuGpxg C DiBartola OrthoAllianceStart: 05-19-7218bzrtjdekvxXnqlc R BerendJIS OrthopedicsStart: 10-09-2024 End: 25-23-1872qwsddgenwbZDAW D [facility] HospitalStart: 10-09-2024 End: 21-50-7250Qvwptxfapo hospital visit by [facility] LABComment on above:Renal colicStart: 10-08-2024 End: 10-77-2501pvhvihsdxwOcesmwzlhCherrington Hospital Work Phone: Start: 10-08-2024 End: 32-14-4270Fiysvyuih for general adult medical examination without abnormal findingsUniversity Hospitals Cleveland Medical Centertart: 10-08-2024 End: 68-76-5095Vcvdyfz encounter procedureC[facility] Physician [facility] Work Phone: Start: 10-08-2024 End: 67-25-3334Szphazq encounter statusBeCommunity Regional Medical Centertart: 05-00-8686Jrmdtck encounter statusUniversity Hospitals Cleveland Medical Centertart: 19-57-0570thcoakaucaFngzi R BerendJIS OrthopedicsStart: 09-20-2024 End: 13-04-0729Dxctfbplb department patient visitCindy Pena [facility] Start: 09-17-2024 End: 56-15-3842Ejnwwagal department patient visitSergo Forde [facility] Start: 04-26-2024 End: 54-18-7810hydorjhhgiArdnqlxuaGalion Community Hospital Work Phone: Start: 04-26-2024 End: 38-58-7572Kvwetxz encounter procedureFirinova [facility] Physician [facility] Work Phone: Start: 04-25-2024 End: 02-03-6462hcjlurcbbrYZEYIWThompson Cancer Survival Center, [place], operated by [facility]htart: 04-25-2024 End: 69-66-4724Ykmistemud hospital visit by [facility] Tawny Lenz [facility] LaboratoryComment on above:Ureteral calculus; Renal calculusStart: 25-48-8626Suz-patient / Non-visitFirelands Physician Group- [facility] Work Phone: Start: 03-06-2024 End: 78-61-2818cljsfskiymRtjgdnxdqGalion [facility] Work Phone: Start: 03-06-2024 End: 25-54-1598Rhgqyhb encounter procedureAdventhealth [facility] Work Phone: Start: 47-34-4129Lyb-patient / Non-visitFirelands Physician Group-[facility] Work Phone: Start: 01-16-2024 End: 12-06-0896aprqubacplDmrytjuwtGalion Community Hospital Work Phone: Start: 01-16-2024 End: 85-58-6674Nheqjsg encounter procedureFirgordos Physician Group-[facility] Work Phone: Start: 93-58-7848Vti-patient / Non-visitFirelands Physician Group-[facility] Work Phone: Start: 10-23-2023 End: 57-07-1666hcfsrpqdgiNBIMLTMaryann Garcia [facility] Hospitaltart: 10-06-2023 End: 71-18-4513rcjcrhqgdnEobqsncixGalion Community Hospital Work Phone: Start: 10-06-2023 End: 53-72-6701Dwrrjsp encounter procedureFirin[facility] Physician [facility] Work Phone: Start: 09-05-2023 End: 31-64-0902Qpgemdslqd hospital visit by Hunter Hutton MD Work Phone: mthz ORStart: 04-64-8931Ddk-patient / Non-visit [facility] Physician Group-[facility] Work Phone: Start: 36-92-4068Ujp-patient / Non-visitF[facility] Physician [facility] Work Phone: Start: 18-47-0104Xhg-patient / Non-visitF[facility]in[facility] Physician [facility] Work Phone: Start: 33-35-1478Gwo-patient / Non-visitFirelands Physician Group-[facility] Work Phone: Start: 70-90-7711Uot-patient / Non-visitFirelands Physician Group-[facility] Work Phone: Start: 55-79-7022Pgn-patient / Non-visitC[facility] Hospital Physician [facility] Work Phone: Start: 08-08-2023 End: 92-83-6461Rxfdqfp encounter procedureCannon Memorial Hospital Physician Group-[facility] Work Phone: Start: 07-21-2023 End: 04-66-3257lepqceqiezQsxhikbl Ball Other [facility] Other Start: 16-27-9107Lzththsjl encounterBetiago WuFPG [facility] ClinicStart: 06-26-2023 End: 58-49-5026hkjbbvrrnfSczcsgyc Ball Other [employer] Other Start: 76-46-7451Djyaqg outpatient visit 15 minutes Christopher BallFP[facility] ClinicStart: 06-14-2023 End: 95-36-3457tvmlntpqqbJikxkxss Ball Other [employer] Other Start: 02-10-4841Hchshtbpo encounterBenjamin BallFPG [facility] Medical ClinicStart: 05-25-2023 End: 31-88-6500igrvhfrrpbNsyqfvkv Ball Other [employer] Other Start: 33-90-2308Sckkzbwvm encounterBenjamin BallFP[facility] ClinicStart: 05-24-2023 End: 96-83-6919nntutapdzfDkwhlxsi Ball Other [employer] Other Start: 30-52-4852Zmiqmq outpatient visit 15 minutes Christopher BallFP[facility] ClinicStart: 04-28-2023 End: 86-37-9366nbtndryhqsTbpvmisy Ball Other [employer] Other Start: 03-28-6872Qkrymxgzf encounterBenjamin BallFP[facility] ClinicStart: 03-28-2023 End: 67-95-2127boawtlyfblCfouqevp Ball Other [employer] Other Start: 05-48-4475Gegqaaylb encounterBenjamin BallFP[facility] ClinicStart: 03-22-2023 End: 25-78-1104nsaeeybqfwHffgtrlj Ball Other [employer] Other Start: 02-09-6825Whstkncea encounterBenjamin BallFP[facility] ClinicStart: 03-14-2023 End: 64-72-4074qqynrfwumaAvjhsgvj Ball Other [employer] Other Start: 81-91-8000Llibny outpatient visit 25 minutes Christopher BallFP[facility] ClinicStart: 02-28-2023 End: 92-93-9407rjwagyhnwtZncchawr Ball Other [employer] Other Start: 52-02-7669Phimgbial encounterBenjamin BallFP[facility] ClinicStart: 12-22-2022 End: 43-45-0160rlosmlcjncEcllyifd Ball Other [employer] Other Start: 37-92-9427Objlhctwq encounterBenjamin BallFP[facility] ClinicStart: 12-21-2022 End: 80-08-9640rukndtlufrKijphiue Ball Other [employer] Other Start: 57-73-8149Imssdh outpatient visit 25 minutes Christopher BallFP[facility] ClinicStart: 12-05-2022 End: 97-97-9446vodiatqvvhYvddcvup Ball Other [employer] Other Start: 26-14-9122Keczul outpatient visit 15 minutes Christopher BallFP[facility] ClinicStart: 11-26-2022 End: 09-18-6300kcicpzliqqNyzxgb Bailey Other [employer] Other Start: 62-34-9519Rthafe outpatient visit 15 minutes K[facility] ClydeStart: 10-11-2022 End: 62-29-1936meynwgntqkVdajeytw Ball Other [employer] Other Start: 09-92-0173Msjriwsmz encounterBenjamin BallFP[facility] ClinicStart: 10-10-2022 End: 15-14-8354lhvyngndwgGgsfxsoc Ball Other [employer] Other Start: 70-15-3009Nzgnpj outpatient visit 25 minutes Christopher BallFP[facility] ClinicStart: 09-06-2022 End: 37-67-4995rzdavkqiahZyypmvwb Ball Other [employer] Other Start: 94-41-8502Hmwiuadno encounterBenjamin BallFP[facility] ClinicStart: 08-26-2022 End: 75-92-2134aeihhbkjydZeuisvpx Ball Other [employer] Other Start: 96-31-1336Ijsyahjov encounterBenjamin BallFP[facility] ClinicStart: 2022 End: 60-85-0369usdmzbuchqYeihkyta Ball Other [employer] Other Start: 02-69-6731Nxoouxwjv encounterBenjamin BallFP[facility] ClinicStart: 08-19-2022 End: 41-43-3540neqquguqnbCU CHRISTOPHER BALLFacility:I1Cbwwx: 75-62-7410Ydawacqxq encounterBenjamin BallFP[facility] ClinicStart: 08-18-2022 End: 25-81-6734vmzxrdcuhlIumtsiej Ball Other [employer] Other Start: 08-52-7332Reflmyxcq encounterBenjamin BallFP[facility] ClinicStart: 08-17-2022 End: 46-15-9669naptftjqmzHC CHRISTOPHER BALLFacility:Z3Ldsfc: 84-31-2852Gjnzuwjmz encounterBenjamin BallFP[facility] ClinicStart: 08-08-2022 End: 77-79-1728lseyzmdogeNedbuyzt Ball Other [employer] Other Start: 76-35-4899Oxiykh outpatient visit 25 minutes Christopher Wu [facility] ClinicStart: 03-15-2022 End: 37-77-4798wyvfogjzwfSP LINO LeyvaFacility:N7Acvbh: 01-25-2022 End: 87-13-1068jxghgbsatgPGIHQ PARKERFacility:Q3Iggad: 52-86-4948Baiidxpzi for general adult medical examination without abnormal findingsDR CHRISTOPHER WUCentervilletart: 12-21-2021 End: 01-38-1635ybjfgusvkhAV CHRISTOPHER WUFacility:R5Dzgmo: 12-21-2021 End: 95-31-4351Aelojbuun for general adult medical examination without abnormal findings CHRISTOPHER WUFacility:K9Rwbui: 08-26-2807Nipvr health examination Christopher Wu Other [employer] Other Start: 11-09-2021 End: 99-81-2202Fkdcvuu encounter procedureLino Ansari Jr. executive [facility] start: 08-31-2021 End: 05-28-6680wptkmagulaLR CHRISTOPHER WUFacility:H1 Procedures DateProcedureProcedure DetailPerforming ClinicianStart: 22-29-7865Mf abdomen & pelvis w/o contrast materialKyle Gabriella Car PA-C Work Phone: Start: 09-72-7519Byxotrhtplbbx metabolic panelKyle Gabriella Car PA-C Work Phone: Start: 08-10-8887Jtzaeqhifg exam abdomen 1 viewJohnnie Hutton MD Work Phone: Start: 32-20-7193Rknewlmjqqn during operationJohnnie Hutton MD Work Phone: Start: 12-24-1846QGOTBBS, WHOLE BLOODJohnnie Hutton MD Work Phone: Start: 09-03-2023E coli Shiga Toxin EIAStart: 77-42-1961Gucavzhjiw/Shigella ScreenStart: 40-17-1814Qcsjspen identified in Urine by CultureStart: 93-98-1598Mjkgr Culture 1Start: 17-33-7514Xhcwu Culture 2 Start: 90-83-0748IFY screeningDARYL PARKERComment on above:Performed By: #### CMP, TSH #### [facility] [address] [place] [address] Dr. Cipriano SimonStart: 93-85-2897EficgkuvnrDlppxm Smith Jr. start: 05-56-9625Tonyzlm examination of patientBenjulian Wu Other Start: 41-43-6714Msixigw of sutureBenjulian Wu Other Start: 49-36-8089Dziyuuqcezfxsg shockwave lithotripsy of calculus of kidneyLino Ansari Jr. depression screeningBenjulian Wu Other Insertion of hip prosthesisDonelan Ansari Jr. screening for malignant neoplasm of colonBenjulian Wu Other Screening for malignant neoplasm of prostateBenjulian Wu Other Plan of Treatment DateCare ActivityDetailAuthorStart: 29-06-3132Cdyflgbmmne Syncytial Virus (RSV) or age 60 yrs+ (1 - 1-dose 75+ series)Respiratory Syncytial Virus (RSV) or age 60 yrs+ (1 - 1-dose 75+ series)[facility] HospitalStart: 26-46-1318Emjaldvqs vaccinationFlu vaccine (Season Ended)[facility] HospitalStart: 11-07-2024 End: 93-12-9995Qpkkdnf encounter feallundd15/29/2025 4:00 PM EDT Office Visit [facility] UROLOGY Part of [address] [place] [phone] Johnnie Hutton MD [address], [address] [place] [address] 6 month f/u [facility] Part of [place] HospitalComment on above:6 month f/u KUBStart: 10-22-2024 End: 80-82-0679Tuhiqtpyd to same day surgery agrzpd0510/22/2024 3:00 PM EDT - 10/22/2024 4:05 PM EDT Surgery [facility] OR [address] [place] [address] Johnnie Hutton MD [address], [address] [place] [address] CYSTOSCOPY URETEROSCOPY LASER-left ureteroscopy/holmium laser lithotripsy with left ureteral stent placement.[facility] ORComment on above:CYSTOSCOPY URETEROSCOPY LASER-left ureteroscopy/holmium laser lithotripsy with left ureteral stent placement.Start: 10-22-2024 End: 83-83-9469Skcbl/uretero w/lithotripsy &indwell stent insrtCYSTOSCOPY URETEROSCOPY LASER Ureteral calculus 10/22/2024 3:00 PM [facility] HospitalStart: 18-63-7517Uitvnacjts hospital visit by forrvzrmz35/13/2025 3:00 PM EDT Hospital Encounter [facility] OR [address] [place] [address] Johnnie Hutton MD [address], [address] [place] [address] [facility] ORStart: 98-04-6238Doegrezig for malignant neoplasm of colonCentra Bedford Memorial HospitalStart: 64-50-6456MHADW-19 Vaccine ( season)COVID-19 Vaccine ( season)[facility] HospitalStart: 13-76-1247HSYGI-19 Vaccine ( season)COVID-19 Vaccine ( season)Bon [facility]: 36-66-4770Vhasqgcyr vaccinationFlu vaccine (#1)[facility]art: 09-11-2023 End: 93-00-6047Tefhsdj encounter chjylkybm15/01/2024 10:45 AM EDT Office Visit [facility] UROLOGY Part [facility] [address] [place] [address] Johnnie Hutton MD [address], [address] [place], [place] [id number] Stent [facility] UROLOGY Part [facility] HospitalComment on above:Stent PullStart: 09-05-2023 End: 35-10-4634Ipepb/uretero w/lithotripsy &indwell stent insrtCYSTOSCOPY URETEROSCOPY LASER Ureteral calculus 09/05/2023 10:06 AM EDTMLakeHealth Beachwood Medical Centertart: 91-56-4111VSNCE-19 Vaccine ( season)COVID-19 Vaccine ( season)[facility]: 93-37-1857Qomswofsh vaccinationFlu vaccine (#1)[facility]: 52-54-3103Aaumvzjsjrd Syncytial Virus (RSV) or age 60 yrs+ (1 - 1-dose 60+ series)Respiratory Syncytial Virus (RSV) or age 60 yrs+ (1 - 1-dose 60+ series)[facility]: 06-86-7336Bpeuzsdqdqnk 50+ years Vaccine (1 of 1 - PCV)Pneumococcal 50+ years Vaccine (1 of 1 - PCV)[facility]: 90-23-3760Bbyxgtmc vaccine (1 of 2)Shingles vaccine (1 of 2)[facility]: 60-60-7022Bqgzrlncv for malignant neoplasm of colonBON [facility]: 11-73-0099Nggfe panelLipidsBON [facility]: 81-36-2531Avwisfbw screenDiabetes screenBON [facility]: 36-64-1811ZNjG/Tdap/Td vaccine (1 - Tdap)DTaP/Tdap/Td vaccine (1 - Tdap)[facility]Start: 34-22-9225Byzrdakqr C screeningHepatitis C screenMARY WASHINGTON HOSPITALStart: 61-71-0913MGU screeningHIV screenSouthampton Memorial Hospitalart: 00-29-8609Ovepusjgyp ScreenDepression [facility]'s Hospitalfuroxime free [Mass/volume] in Serum or [facility] HospitalComprehensive metabolic 2000 panel - Serum or [facility] End: 08-63-9413Utgpmgx, UrineBon [facility]iff[facility] HospitalComment on above:1 Occurrences starting 10/09/2024 until 10/09/2024 End: 70-10-7222WCGJIAMR PACU OXYGEN THERAPY PROTOCOLInitiate PACU Oxygen Therapy Protocol Respiratory Care Routine Continuous until discontinued starting 09/05/2023[facility] [employer] Work Phone: Comment on above:Continuous until discontinued starting 09/05/2023MRA Head vessels WO [facility] Oxygen therapy [Minimum Data Set]Initiate Oxygen Therapy Protocol Respiratory Care Routine As Needed until discontinued starting 09/05/2023[facility]ENTERComment on above:As Needed until discontinued starting 09/05/2023atient EducationLow back pain in adultsKindred Hospital Dayton Work Phone: End: 20-63-5008II KidneyCentra Bedford Memorial HospitalComment on above:1 Occurrences starting 10/17/2024 until 10/17/2024US.doppler Carotid arteries - bilateral [facility] NorthXR Lumbar spine [facility] Immunizations Immunization DateImmunizationNotesCare FfruxkizUynfnvpg82-55-4221DHIH-BzY-2 (COVID-19) Ad26 vaccine, Waleska Ansari Jr. executive [facility] NEGATED: Highlighted row has not occurred!11-09-2021 influenza virus vaccine, unspecified formulationLino Ansari Jr. executive [facility] Payers DatePayer CategoryPayerPolicy [id number] [id number] 2.16.840.1.495888.3.57[id number] 2.16.840.1.618451.3.57[id number] 2..840.1.998776.3.57[id number] 2.16.840.1.769112.3.57[id number] 2.16.840.1.619719.3.57[id number] 2.16.840.1.133036.3.579.2.03688-26-5994Hcfaeis0946173 2.16.840.1.833181.3.579.2.[id number] 2.16.840.1.423635.3.57[id number] 2.16.840.1.776645.3.579.[id number] 2.16.840.1.678549.3.579.2.[id number] 2.16.840.1.004353.3.579.2.47813-62-6459Utjkikj15031504 2.16.840.1.936243.3.579.2.05710-59-7157Lpjmuaw15000975 2.16.840.1.587140.3.579.2.78840-55-8383Svmebhy1980148 2.16.840.1.062229.3.579.2.343221-45-3969Nqbjvyy06703238 2.16.840.1.280712.3.579.2.45175-04-2215Yvghsne50682208 2.16.840.1.209707.3.579.2.12087-24-1206Vigukyu37261537 2.16.840.1.596557.3.579.2.61887-24-9176Bwgtmmj90621727 2.16.840.1.164280.3.579.[id number] 2.16.840.1.906412.3.57[id number] 2.16.840.1.561578.3.579.[id number] 2.16.840.1.515351.3.579.2.47815-15-6088Joflpfa3978611 2.16.840.1.720215.3.579.2.22[id number] 2..840.1.933437.3.579.2.618553-94-2874Zxzruko9729421 2.16.840.1.768612.3.579.2.716581-78-7016Xzdpidb8579681286-41-8559Zrwwbey [id number]-zzyIydr Iny9l66699s-monq-67b6-44[id number] 2.840.1.013947.19 Social History DateTypeDetailFacilityStart: 06-07-2014 End: 97-61-9499Cjunt smoked tobacco (finding)Executive [facility] start: 09-05-2023 End: 74-23-3135DfdbYzurkatil [facility] start: 27-17-8343Gawbglz use and exposureSmokeless tobacco non-userBON ST. CHARLES HOSPITALStart: 09-05-2023 End: 00-88-4703Zollvxu intakeEx-drinker (finding)[facility]ITALStart: 09-05-2023 End: 28-22-0917Gxdpdvt of Social functionBon [facility] HospitalStart: 60-49-7597Ago Assigned At [facility] CenterNot on fileMARY WASHINGTON HOSPITALStart: 35-23-7738Zws Assigned At [facility]Read-Only, Retired: Physical AbuseDeniesBon [facility]iff[facility] HospitalStart: 2023 End: 26-75-6476LiaBylc (finding)[facility] NorthTobaccSouthview Medical Center Comment on above:deniesTobacco smoking statusWooster Community Hospital Medical Equipment Procedure CodeEquipment CodeEquipment Original TextEquipment IdentifierDates {[id number] FDAStart: 08-03-0959Murce: 78-00-5755Xfpmu Uret 6fr L26cm Hydr+ Pgtl Tapr Tip Grad Bldr Mrk Lo - [id number]: 08-29-2023 Stent Uret 6fr L26cm Hydr+ Pgtl Tapr Tip Grad Bldr Mrk Lo - [id number]: 08-88-4394Nhvlr Sugar Diagnostic (Freestyle Test) stripStart: 46-24-1466Efu Needle, Diabetic (Comfort Ez Pen Flynn) 31 gauge x 3/16 needle Start: 39-08-2749Amfmn Sugar Diagnostic (Freestyle Test) stripStart: 11-21-2023 Pen Needle, Diabetic (Comfort Ez Pen Flynn) 31 gauge x 3/16 needleStart: 09-25-9485Ucykx Sugar Diagnostic (Freestyle Test) stripStart: 08-04-2023 End: 39-66-1250Ggbsl Sugar Diagnostic (Freestyle Test) stripStart: 37-60-8581Lgr Needle, Diabetic (Comfort Ez Pen Flynn) 31 gauge x 3/16 needleStart: 27-37-9842Nunvi Sugar Diagnostic (Freestyle Test) stripStart: 08-04-2023 End: 12-16-8909Gssrd Sugar Diagnostic (Freestyle Test) stripStart: 80-41-6265Our Needle, Diabetic (Comfort Ez Pen Flynn) 31 gauge x 3/16 needleStart: 75-41-6436Kgbzy Sugar Diagnostic (Freestyle Test) stripStart: 08-04-2023 End: 56-17-3884Gtiwb Sugar Diagnostic (Freestyle Test) stripStart: 64-76-7245Rvb Needle, Diabetic (Bd Venita 2nd Gen Pen Needle) 32 gauge x 5/32 needleStart: 48-86-6850Qtbuf Sugar Diagnostic (Freestyle Test) stripStart: 08-04-2023 End: 26-43-8159Pbm Needle, Diabetic (Bd Ultra-Fine Micro Pen Needle) 32 gauge x 1/4 needleStart: 05-20-2024 End: 35-31-8215Lmi Needle, Diabetic (Bd Ultra-Fine Micro Pen Needle) 32 gauge x 1/4 needleStart: 05-24-2024 End: 32-21-4592Nes Needle, Diabetic (Comfort Ez Pen Flynn) 31 gauge x 3/16 needleStart: 08-04-2023 End: 83-88-1618Orzmi Sugar Diagnostic (Freestyle Test) stripStart: 48-24-0151Lah Needle, Diabetic (Bd Venita 2nd Gen Pen Needle) 32 gauge x 5/32 needleStart: 39-50-7983Gjmsq Sugar Diagnostic (Freestyle Test) stripStart: 08-04-2023 End: 74-97-9770Qar Needle, Diabetic (Bd Ultra-Fine Micro Pen Needle) 32 gauge x 1/4 needleStart: 05-20-2024 End: 74-58-5975Uro Needle, Diabetic (Bd Ultra-Fine Micro Pen Needle) 32 gauge x 1/4 needleStart: 05-24-2024 End: 26-70-1305Tim Needle, Diabetic (Comfort Ez Pen Flynn) 31 gauge x 3/16 needleStart: 08-04-2023 End: 11-84-2380Namie Sugar Diagnostic (Freestyle Lite Strips) stripStart: 97-28-3852Rud Needle, Diabetic (Bd Venita 2nd Gen Pen Needle) 32 gauge x 5/32 needleStart: 74-31-5027Papvy Sugar Diagnostic (Freestyle Test) stripStart: 11-21-2023 End: 37-36-0195Ekmvk Sugar Diagnostic (Freestyle Test) stripStart: 08-04-2023 End: 99-98-6720Uqr Needle, Diabetic (Bd Ultra-Fine Micro Pen Needle) 32 gauge x 1/4 needleStart: 05-20-2024 End: 13-01-0027Iss Needle, Diabetic (Bd Ultra-Fine Micro Pen Needle) 32 gauge x 1/4 needleStart: 05-24-2024 End: 80-87-4962Nal Needle, Diabetic (Comfort Ez Pen Flynn) 31 gauge x 3/16 needleStart: 08-04-2023 End: 01-87-2042Miejn Sugar Diagnostic (Freestyle Lite Strips) stripStart: 87-89-5906Ioa Needle, Diabetic (Bd Venita 2nd Gen Pen Needle) 32 gauge x 5/32 needleStart: 65-79-0334Yurzg Sugar Diagnostic (Freestyle Test) stripStart: 11-21-2023 End: 66-59-6846Vpmxp Sugar Diagnostic (Freestyle Test) stripStart: 08-04-2023 End: 36-04-1353Wdn Needle, Diabetic (Bd Ultra-Fine Micro Pen Needle) 32 gauge x 1/4 needleStart: 05-20-2024 End: 10-12-7387Iyc Needle, Diabetic (Bd Ultra-Fine Micro Pen Needle) 32 gauge x 1/4 needleStart: 05-24-2024 End: 94-69-2403Otr Needle, Diabetic (Comfort Ez Pen Flynn) 31 gauge x 3/16 needleStart: 08-04-2023 End: 71-99-0327Hyesj Sugar Diagnostic (Freestyle Lite Strips) stripStart: 43-43-9160Bki Needle, Diabetic (Bd Venita 2nd Gen Pen Needle) 32 gauge x 5/32 needleStart: 80-91-3312Ldyst Sugar Diagnostic (Freestyle Test) stripStart: 11-21-2023 End: 80-57-4070Fkwty Sugar Diagnostic (Freestyle Test) stripStart: 08-04-2023 End: 80-98-3435Nez Needle, Diabetic (Bd Ultra-Fine Micro Pen Needle) 32 gauge x 1/4 needleStart: 05-20-2024 End: 54-30-4995Xzy Needle, Diabetic (Bd Ultra-Fine Micro Pen Needle) 32 gauge x 1/4 needleStart: 05-24-2024 End: 51-30-4848Orf Needle, Diabetic (Comfort Ez Pen Flynn) 31 gauge x 3/16 needleStart: 08-04-2023 End: 05-20-2024 Functional Status Tgal[id number] StatusN/[id number] StatusN/[facility] Clinical Notes 12-30-2020 to 01-23-2025 Note Date & [id number] Evaluation note* Diagnosis Onset Date Resolution Status Admit Date SHAYLA (generalized anxiety disorder) acuteAugust 2024 9:58amLumbosacral spondylosisacuteAugust 2024 9:58amObesityacuteAugust 2024 9:58amType 2 diabetes mellitus with hyperglycemiaacuteAugust 2024 9:58amGAD (generalized anxiety disorder) acuteOctober 2024 10:27amLow back painacuteOctober 2024 10:27am Lumbosacral spondylosisacuteOctober 2024 10:27amType 2 diabetes mellitus with hyperglycemiaacuteOctober 2024 10:27am [facility] Work Phone: 1(578) 450-257207-22-2025 Evaluation note* Diagnosis Onset Date Resolution Status Admit Date Bilateral leg pain acuteJuly 2024 3:35pmGAD (generalized anxiety disorder)acuteJuly 2024 3:35pmGastroesophageal reflux disease with esophagitis without hemorrhage acuteJuly 2024 3:35pmLow back painacuteJuly 2024 3:35pmLumbar spondylosisacuteJuly 2024 3:35pmType 2 diabetes mellitus with hyperglycemiaacuteJuly 2024 3:35pmObesitydeletedJuly 2024 3:35pmGAD (generalized anxiety disorder)acuteAugust 2024 9:58amLumbar spondylosis acuteAugust 2024 9:58amType 2 diabetes mellitus with hyperglycemiaacute Numa 2024 9:58am [facility] Work Phone: 1(348) 514-273704-29-2025 Evaluation note* Diagnosis Onset Date Resolution Status Admit Date SHAYLA (generalized anxiety disorder) acuteApril 2024 2:25pmGastroesophageal reflux disease with esophagitis without hemorrhageacuteApril 2024 2:25pmLumbosacral spondylosisacuteApril 2024 2:25pmScreening PSA (prostate specific antigen)acuteApril 2024 2:25pmType 2 diabetes mellitus with hyperglycemiaacuteApril 2024 2:25pm Wellness examinationacuteApril 2024 2:25pmObesitydeletedApril 2024 2:25pmScreening for colon cancernoneactiveApril 2024 2:25pmGAD (generalized anxiety disorder)acuteMay 2024 2:40pmType 2 diabetes mellitus with hyperglycemiaacuteMay 2024 2:40pmPreop exam for internal medicine noneactiveMay 2024 2:40pm [facility] Work Phone: 1(235) 542-647104-29-2025 Evaluation note* Diagnosis Onset Date Resolution Status Admit Date SHAYLA (generalized anxiety disorder) acuteApril 2024 2:25pmGastroesophageal reflux disease with esophagitis without hemorrhageacuteApril 2024 2:25pmLumbosacral spondylosisacuteApril 2024 2:25pmScreening PSA (prostate specific antigen)acuteApril 2024 2:25pmType 2 diabetes mellitus with hyperglycemiaacuteApril 2024 2:25pm Wellness examinationacuteApril 2024 2:25pmObesitydeletedApril 2024 2:25pmScreening for colon cancernoneactiveApril 2024 2:25pmGAD (generalized anxiety disorder)acuteMay 2024 2:40pmHydronephrosisacuteMay 2024 2:40pmType 2 diabetes mellitus with hyperglycemiaacuteMay 2024 2:40pmPreop exam for internal medicinenoneactiveMay 2024 2:40pmNeck pain acuteJuly 2024 3:35pm [facility] Work Phone: 1(304) 857-900704-11-2025 Evaluation + Plan noteExtracted from:Title: ED NoteAuthor:Eula ROSA JohnDate:09/20/24 Dehydration (E86.0: Dehydrat ion) Gastroenteritis (K52.9: Noninfective gastroenteritis and colitis, unspecified) Orders: dicyclomine, 20 mg = 1 tab(s), Oral, TID, X 7 day(s), # 21 tab(s), Refills(s) 0, Pharmacy: [facility]/pharmacy #[id number], 176, cm, 09/20/24 6:38:00 EDT, Height/Length Dosing, 92.4, kg, 09/20/24 6:38:00 EDT, Weight Dosing ketorolac, 30 mg = 1 mL, Injection, IV, Once, Stop date 09/20/24 7:44:00 EDT, STAT, Start date 09/20/24 7:44:00 EDT, 09/20/24 7:44:00 EDT ondansetron, 4 mg = 2 mL, Injection, IV Push, Once, Stop date 09/20/24 7:44:00 EDT, STAT, Start date 09/20/24 7:44:00 EDT, 09/20/24 7:44:00 EDT ondansetron, 4 mg = 1 tab(s), Oral, q6hr, X 3 day(s), # 10 tab(s), Refills(s) 0, Pharmacy: [facility]/pharmacy #[id number], 176, cm, 09/20/24 6:38:00 EDT, Height/Length Dosing, 92.4, kg, 09/20/24 6:38:00 EDT, Weight Dosing Sodium Chloride 0.9% intravenous solution, 1,000 mL, Soln-IV, IV, Once, Stop date 09/20/24 7:44:00 EDT, STAT, Start date 09/20/24 7:44:00 EDT, Infuse over 61, minute(s) CBC w/ Auto Diff Comprehensive Metabolic Panel eGFR Extra Blue Tube Extra SST Tube Lipase Level [facility] 04-11-2025 Hospital Discharge instructions Follow Up Care 09/20/2024 06:28:45 With:CHRISTOPHER WU Address: [address] [place] [address] Business (1) When:Within 3 Day(s) [facility] 04-08-2025 Hospital Discharge instructions Patient Education 09/17/2024 19:20:38 Sinus Infection, Adult Sinus Infection, Adult A sinus infection, also called sinusitis, is inflammation of your sinuses. Sinuses are hollow spaces in the bones around your face. Your sinuses are located: Around your eyes. In the middle of your forehead. Behind your nose. In your cheekbones. Mucus normally drains out of your sinuses. When your nasal tissues become inflamed or swollen, mucus can become trapped or blocked. This allows bacteria, viruses, and fungi to grow, which leads to infection. Most infections of the sinuses are caused by a virus. A sinus infection can develop quickly. It can last for up to 4 weeks (acute) or for more than 12 weeks (chronic). A sinus infection often develops after a cold. What are the causes? This condition is caused by anything that creates swelling in the sinuses or stops mucus from draining. This includes: Allergies. Asthma. Infection from bacteria or viruses. Deformities or blockages in your nose or sinuses. Abnormal growths in the nose (nasal polyps). Pollutants, such as chemicals or irritants in the air. Infection from fungi. This is rare. What increases the risk? You are more likely to develop this condition if you: Have a weak body defense system (immune system). Do a lot of swimming or diving. Overuse nasal sprays. Smoke. What are the signs or symptoms? The main symptoms of this condition are pain and a feeling of pressure around the affected sinuses.Other symptoms include: Stuffy nose or congestion that makes it difficult to breathe through your nose. Thick yellow or greenish drainage from your nose. Tenderness, swelling, and warmth over the affected sinuses. A cough that may get worse at night. Decreased sense of smell and taste. Extra mucus that collects in the throat or the back of the nose (postnasal drip) causing a sore throat or bad breath. Tiredness (fatigue). Fever. How is this diagnosed? This condition is diagnosed based on: Your symptoms. Your medical history. A physical exam. Tests to find out if your condition is acute or chronic. This may include: ?Checking your nose for nasal polyps. ?Viewing your sinuses using a device that has a light (endoscope). ?Testing for allergies or bacteria. ?Imaging tests, such as an MRI or CT scan. In rare cases, a bone biopsy may be done to rule out more serious types of fungal sinus disease. How is this treated? Treatment for a sinus infection depends on the cause and whether your condition is chronic or acute. If caused by a virus, your symptoms should go away on their own within 10 days. You may be given medicines to relieve symptoms. They include: ?Medicines that shrink swollen nasal passages (decongestants). ?A spray that eases inflammation of the nostrils (topical intranasal corticosteroids). ?Rinses that help get rid of thick mucus in your nose (nasal saline washes). ?Medicines that treat allergies (antihistamines). ?Yxoz-bll-hulkkbj pain relievers. If caused by bacteria, your health care provider may recommend waiting to see if your symptoms improve. Most bacterial infections will get better without antibiotic medicine. You may be given antibiotics if you have: ?A severe infection. ?A weak immune system. If caused by narrow nasal passages or nasal polyps, surgery may be needed. Follow these instructions at home: Medicines Take, use, or apply wgth-sbp-lyjkktz and prescription medicines only as told by your health care provider. These may include nasal sprays. If you were prescribed an antibiotic medicine, take it as told by your health care provider. Do notstop taking the antibiotic even if you start to feel better. Hydrate and humidify Drink enough fluid to keep your urine pale yellow. Staying hydrated will help to thin your mucus. Use a cool mist humidifier to keep the humidity level in your home above 50%. Inhale steam for 10 15 minutes, 3 4 times a day, or as told by your health care provider. You can do this in the bathroom while a hot shower is running. Limit your exposure to cool or dry air. Rest Rest as much as possible. Sleep with your head raised (elevated). Make sure you get enough sleep each night. General instructions Apply a warm, moist washcloth to your face 3 4 times a day or as told by your health care provider.This will help with discomfort. Use nasal saline washes as often as told by your health care provider. Wash your hands often with soap and water to reduce your exposure to germs. If soap and water are not available, use hand payroll clerk. Do not smoke. Avoid being around people who are smoking (secondhand smoke). Keep all follow-up visits. This is important. Contact a health care provider if: You have a fever. Your symptoms get worse. Your symptoms do not improve within 10 days. Get help right away if: You have a severe headache. You have persistent vomiting. You have severe pain or swelling around your face or eyes. You have vision problems. You develop confusion. Your neck is stiff. You have trouble breathing. These symptoms may be an emergency. Get help right away. Call 911. Do not wait to see if the symptoms will go away. Do not drive yourself to the hospital. Summary A sinus infection is soreness and inflammation of your sinuses. Sinuses are hollow spaces in the bones around your face. This condition is caused by nasal tissues that become inflamed or swollen. The swelling traps or blocks the flow of mucus. This allows bacteria, viruses, and fungi to grow, which leads to infection. If you were prescribed an antibiotic medicine, take it as told by your health care provider. Do notstop taking the antibiotic even if you start to feel better. Keep all follow-up visits. This is important. This information is not intended to replace advice given to you by your health care provider. Make sure you discuss any questions you have with your health care provider. Document Revised: 05/03/2022 Document Reviewed: 05/03/2022 [employer] Patient Education 2023 [email or web address]. 09/17/2024 19:20:38 Hyperglycemia, Hqnx-sg-Eqed Hyperglycemia Hyperglycemia is when the sugar (glucose) level in your blood is too high. High blood sugar can happen to people who have or do not have diabetes. High blood sugar can happen quickly. It can be an emergency. What are the causes? If you have diabetes, high blood sugar may be caused by: Medicines that increase blood sugar or affect your control of diabetes. Getting less physical activity. Overeating. Being sick or injured or having an infection. Having surgery. Stress. Not giving yourself enough insulin (if you are taking it). You may have high blood sugar because you have diabetes that has not been diagnosed yet. If you do not have diabetes, high blood sugar may be caused by: Certain medicines. Stress. A bad illness. An infection. Having surgery. Diseases of the pancreas. What increases the risk? This condition is more likely to develop in people who have risk factors for diabetes, such as: Having a family member with diabetes. Certain conditions in which the body's defense system (immune system) attacks itself. These are called autoimmune disorders. Being overweight. Not being active. Having a condition called insulin resistance. Having a history of: ?Prediabetes. ?Diabetes when . ?Polycystic ovarian syndrome (PCOS). What are the signs or symptoms? This condition may not cause symptoms. If you do have symptoms, they may include: Feeling more thirsty than normal. Needing to pee (urinate) more often than normal. Hunger. Feeling very tired. Blurry eyesight (vision). You may get other symptoms as the condition gets worse, such as: Dry mouth. Pain in your belly (abdomen). Not being hungry (loss of appetite). Breath that smells fruity. Weakness. Weight loss that is not planned. A tingling or numb feeling in your hands or feet. A headache. Cuts or bruises that heal slowly. How is this treated? Treatment depends on the cause of your condition. Treatment may include: Taking medicine to control your blood sugar levels. Changing your medicine or dosage if you take insulin or other diabetes medicines. Lifestyle changes. These may include: ?Exercising more. ?Eating healthier foods. ?Losing weight. Treating an illness or infection. Checking your blood sugar more often. Stopping or reducing steroid medicines. If your condition gets very bad, you will need to be treated in the hospital. Follow these instructions at home: General instructions Take kjhs-ryi-tniiytl and prescription medicines only as told by your doctor. Do not smoke or use any products that contain nicotine or tobacco. If you need help quitting, ask your doctor. If you drink alcohol: ?Limit how much you have to: ?0 1 drink a day for women who are not . ?0 2 drinks a day for men. ?Know how much alcohol is in a drink. In the [place] one drink equals one 12 oz bottle of beer (355 mL), one 5 oz glass of wine (148 mL), or one 1 oz glass of hard liquor (44 mL). Manage stress. If you need help with this, ask your doctor. Do exercises as told by your doctor. Keep all follow-up visits. Eating and drinking Stay at a healthy weight. Make sure you drink enough fluid when you: ?Exercise. ?Get sick. ?Are in hot temperatures. Drink enough fluid to keep your pee (urine) pale yellow. If you have diabetes: Know the symptoms of high blood sugar. Follow your diabetes management plan as told by your doctor. Make sure you: ?Take insulin and medicines as told. ?Follow your exercise plan. ?Follow your meal plan. Eat on time. Do not skip meals. ?Check your blood sugar as often as told. Make sure you check before and after exercise. If you exercise longer or in a different way, check your blood sugar more often. ?Follow your sick day plan whenever you cannot eat or drink normally. Make this plan ahead of time with your doctor. Share your diabetes management plan with people in your workplace, school, and household. Check your pee for ketones when you are ill and as told by your doctor. Carry a card or wear jewelry that says that you have diabetes. Where to find more information [place] [employer]: www.diabetes.org Contact a doctor if: Your blood sugar level is at or above 240 mg/dL (13.3 mmol/L) for 2 days in a row. You have problems keeping your blood sugar in your target range. You have high blood pressure often. You have signs of illness, such as: ?Feeling like you may vomit (feeling nauseous). ?Vomiting. ?A fever. Get help right away if: Your blood sugar monitor reads high even when you are taking insulin. You have trouble breathing. You have a change in how you think, feel, or act (mental status). You feel like you may vomit, and the feeling does not go away. You cannot stop vomiting. These symptoms may be an emergency. Get medical help right away. Call your local emergency services(911 in the [place] Do not wait to see if the symptoms will go away. Do not drive yourself to the hospital. Summary Hyperglycemia is when the sugar (glucose) level in your blood is too high. High blood sugar can happen to people who have or do not have diabetes. Make sure you drink enough fluids and follow your meal plan. Exercise as often as told by your doctor. Contact your doctor if you have problems keeping your blood sugar in your target range. This information is not intended to replace advice given to you by your health care provider. Make sure you discuss any questions you have with your health care provider. Document Revised: 03/11/2021 Document Reviewed: 03/12/2021 [employer] Patient Education 2023 [email or web address]. 09/17/2024 19:20:38 Dizziness, Avpy-ae-Wqpw Dizziness Dizziness is a common problem. It makes you feel unsteady or light-headed. You may feel like you are about to pass out (faint). Dizziness can lead to getting hurt if you stumble or fall. Dizziness can be caused by many things, including: Medicines. Not having enough water in your body (dehydration). Illness. Follow these instructions at home: Eating and drinking Drink enough fluid to keep your pee (urine) pale yellow. This helps to keep you from getting dehydrated. Try to drink more clear fluids, such as water. Do not drink alcohol. Limit how much caffeine you drink or eat, if your doctor tells you to do that. Limit how much salt (sodium) you drink or eat, if your doctor tells you to do that. Activity Avoid making quick movements. ?Stand up slowly from sitting in a chair, and steady yourself until you feel okay. ?In the morning, first sit up on the side of the bed. When you feel okay, stand up slowly while youhold onto something. Do this until you know that your balance is okay. If you need to card processing clerk one place for a long time, move your legs often. Tighten and relax the muscles in your legs while you are standing. Do not drive or use machinery if you feel dizzy. Avoid bending down if you feel dizzy. Place items in your home so you can reach them easily withoutleaning over. Lifestyle Do not smoke or use any products that contain nicotine or tobacco. If you need help quitting, ask your doctor. Try to lower your stress level. You can do this by using methods such as yoga or meditation. Talk with your doctor if you need help. General instructions Watch your dizziness for any changes. Take gcpl-qcu-vgjofou and prescription medicines only as told by your doctor. Talk with your doctorif you think that you are dizzy because of a medicine that you are taking. Tell a friend or a family member that you are feeling dizzy. If he or she notices any changes in your behavior, have this person call your doctor. Keep all follow-up visits. Contact a doctor if: Your dizziness does not go away. Your dizziness or light-headedness gets worse. You feel like you may vomit (are nauseous). You have trouble hearing. You have new symptoms. You are unsteady on your feet. You feel like the room is spinning. You have neck pain or a stiff neck. You have a fever. Get help right away if: You vomit or have watery poop (diarrhea), and you cannot eat or drink anything. You have trouble: ?Talking. ?Walking. ?Swallowing. ?Using your arms, hands, or legs. You feel generally weak. You are not thinking clearly, or you have trouble forming sentences. A friend or family member may notice this. You have: ?Chest pain. ?Pain in your belly (abdomen). ?Shortness of breath. ?Sweating. Your vision changes. You are bleeding. You have a very bad headache. These symptoms may be an emergency. Get help right away. Call your local emergency services (911 int [place] Do not wait to see if the symptoms will go away. Do not drive yourself to the hospital. Summary Dizziness makes you feel unsteady or light-headed. You may feel like you are about to pass out (faint). Drink enough fluid to keep your pee (urine) pale yellow. Do not drink alcohol. Avoid making quick movements if you feel dizzy. Watch your dizziness for any changes. This information is not intended to replace advice given to you by your health care provider. Make sure you discuss any questions you have with your health care provider. Document Revised: 04/30/2021 Document Reviewed: 05/03/2021 [employer] Patient Education 2023 [email or web address]. Follow Up Care 09/17/2024 16:31:01 With:CHRISTOPHER BRYCE Address: [address] [place] [address] [place] [address] Business (1) When:Within 3 Day(s) [facility] 04-08-2025 NoteED Patient Education Note Endocrinology Hyperglycemia Hyperglycemia is when the sugar (glucose) level in your blood is too high. High blood sugar can happen to people who have or do not have diabetes. High blood sugar can happen quickly. It can be an emergency. What are the causes? If you have diabetes, high blood sugar may be caused by: ??? Medicines that increase blood sugar or affect your control of diabetes. ??? Getting less physical activity. ??? Overeating. ??? Being sick or injured or having an infection. ??? Having surgery. ??? Stress. ??? Not giving yourself enough insulin (if you are taking it). You may have high blood sugar because you have diabetes that has not been diagnosed yet. If you do not have diabetes, high blood sugar may be caused by: ??? Certain medicines. ??? Stress. ??? A bad illness. ??? An infection. ??? Having surgery. ??? Diseases of the pancreas. What increases the risk? This condition is more likely to develop in people who have risk factors for diabetes, such as: ??? Having a family member with diabetes. ??? Certain conditions in which the body's defense system (immune system) attacks itself. These arecalled autoimmune disorders. ??? Being overweight. ??? Not being active. ??? Having a condition called insulin resistance. ??? Having a history of: ? Prediabetes. ? Diabetes when . ? Polycystic ovarian syndrome (PCOS). What are the signs or symptoms? This condition may not cause symptoms. If you do have symptoms, they may include: ??? Feeling more thirsty than normal. ??? Needing to pee (urinate) more often than normal. ??? Hunger. ??? Feeling very tired. ??? Blurry eyesight (vision). You may get other symptoms as the condition gets worse, such as: ??? Dry mouth. ??? Pain in your belly (abdomen). ??? Not being hungry (loss of appetite). ??? Breath that smells fruity. ??? Weakness. ??? Weight loss that is not planned. ??? A tingling or numb feeling in your hands or feet. ??? A headache. ??? Cuts or bruises that heal slowly. How is this treated? Treatment depends on the cause of your condition. Treatment may include: ??? Taking medicine to control your blood sugar levels. ??? Changing your medicine or dosage if you take insulin or other diabetes medicines. ??? Lifestyle changes. These may include: ? Exercising more. ? Eating healthier foods. ? Losing weight. ??? Treating an illness or infection. ??? Checking your blood sugar more often. ??? Stopping or reducing steroid medicines. If your condition gets very bad, you will need to be treated in the hospital. Follow these instructions at home: General instructions ??? Take wbnw-fpr-yfhegat and prescription medicines only as told by your doctor. ??? Do not smoke or use any products that contain nicotine or tobacco. If you need help quitting, ask your doctor. ??? If you drink alcohol: ? Limit how much you have to: ? 0?1 drink a day for women who are not . ? 0?2 drinks a day for men. ? Know how much alcohol is in a drink. In the [place] one drink equals one 12 oz bottle of beer (355mL), one 5 oz glass of wine (148 mL), or one 1? oz glass of hard liquor (44 mL). ??? Manage stress. If you need help with this, ask your doctor. ??? Do exercises as told by your doctor. ??? Keep all follow-up visits. Eating and drinking ??? Stay at a healthy weight. ??? Make sure you drink enough fluid when you: ? Exercise. ? Get sick. ? Are in hot temperatures. ??? Drink enough fluid to keep your pee (urine) pale yellow. If you have diabetes: ??? Know the symptoms of high blood sugar. ??? Follow your diabetes management plan as told by your doctor. Make sure you: ? Take insulin and medicines as told. ? Follow your exercise plan. ? Follow your meal plan. Eat on time. Do not skip meals. ? Check your blood sugar as often as told. Make sure you check before and after exercise. If you exercise longer or in a different way, check your blood sugar more often. ? Follow your sick day plan whenever you cannot eat or drink normally. Make this plan ahead of timewith your doctor. ??? Share your diabetes management plan with people in your workplace, school, and household. ??? Check your pee for ketones when you are ill and as told by your doctor. ??? Carry a card or wear jewelry that says that you have diabetes. Where to find more information [place] [employer]: www.diabetes.org Contact a doctor if: ??? Your blood sugar level is at or above 240 mg/dL (13.3 mmol/L) for 2 days in a row. ??? You have problems keeping your blood sugar in your target range. ??? You have high blood pressure often. ??? You have signs of illness, such as: ? Feeling like you may vomit (feeling nauseous). ? Vomiting. ? A fever. Get help right away if: ??? Your blood sugar monitor reads high ev (more content not included)... [facility]04-08-2025 Evaluation + Plan noteExtracted from: Title:ED NoteAuthor:Feliz KUMARDorian NDate:09/17/24 Dizziness (R42: Dizziness an d giddiness) Orders: Basic Metabolic Panel Capillary Glucose POC CBC w/ Auto Diff CT Head or Brain w/o Contrast ECG 12 Lead Adult eGFR Extra Blue Tube Extra SST Tube Hepatic Function Panel Lipase Level Saline Lock Insert Troponin 0 Hr. Troponin 1 Hr. UA with Cult Rflx XR Chest Single View Addendum by Sergo Forde DO on September 17, 2024 19:09:51 EDT Repeat troponin did come back negative. I spoke to the patient and he did state that he had a cold last week and did feel some pressure in his sinuses does have positive sinusitis on CT scan therefore we will cover him with Augmentin as this may be causing some of his hyperglycemia and dizziness. We talked about return precautions but ultimately he is comfortable being discharged home at this time follow-up closely in the outpatient setting. Additional diagnosis: Hyperglycemia, sinusitis [facility] 09-25-2024 Evaluation note* Diagnosis Onset Date Resolution Status Admit Date SHAYLA (generalized anxiety disorder) acuteSept2023 3:49pmTachycardiaacuteSeptember 2023 3:49pmType 2 diabetes mellitus with hyperglycemiaacuteSept2023 3:49pmFacial paindeletedSeptember 2023 3:49pmHeadachedeletedSeptember 2023 3:49pm SHAYLA (generalized anxiety disorder)acuteNov2023 2:41pm Gastroesophageal reflux disease with esophagitis without hemorrhageacuteNov2023 2:41pmTachycardiaacuteNovember 2023 2:41pmType 2 diabetes mellitus with hyperglycemiaacuteNov2023 2:41pm [facility] Work Phone: 1(438) 644-511003-26-2024 History of Present illness Narrative* Rissa Monroe [...] reviewed with the patient. [facility]* Discharge Instructions* Rissa Monroe [...] flush the urinary tract.) Call Dr. Hutton ([phone]) if you develop: Fever over 100 degrees [...] Call Dr. Hutton office for follow-up appointment ([phone]). [facility]* Encounter Date Diagnosis Assessment Notes Treatment Notes Treatment Clinical Notes Jun, Acute pain of left shoulder (ICD -10 - M25.512) Duration of pain and physical findings concerning for labral tear and/or supraspinatus tear. He has failed 3-4 months of conservative care - ice/heat and ROM exercises - NSAIDs Recommend MRI to confirm suspicion prior to referral to Orthopedic surgeon Jun,Type 2 diabetes mellitus with hyperglycemia (ICD-10 - E11.65)Much improved w/ average BS decreased by 25 [...] Microalbumin, Dilated eye exam and Foot exam [facility] Other 12-13-2023 Evaluation note* Encounter Date Diagnosis Assessment Notes Treatment Notes Treatment Clinical Notes May, Acute bronchitis due to other sp ecified organisms (ICD-10 - J20.8) Instructed to use Robitussin or Mucinex for cough, saline or Flonase NS for congestion, Tylenol forpain and fever. May,Type 2 diabetes mellitus with hyperglycemia (ICD-10 - E11.65)This patient is following a comprehensive diabetic treatment [...] improved FBS BS have increased w/ illness [facility] Other 10-17-2023 Evaluation note* Encounter Date Diagnosis Assessment Notes Treatment Notes Treatment Clinical Notes Mar, Type 2 diabetes mellitus with hy perglycemia (ICD-10 - E11.65) [facility] Other 10-11-2023 Evaluation note* Encounter Date Diagnosis Assessment Notes Treatment Notes Treatment Clinical Notes Mar, Type 2 diabetes mellitus with hy perglycemia (ICD-10 - E11.65) Mar,Long term (current) use of insulin (ICD-10 - Z79.4) [facility] Other 10-03-2023 Evaluation note* Encounter Date Diagnosis Assessment Notes Treatment Notes Treatment Clinical Notes Mar, Type 2 diabetes berta itus with hyperglycemia, without long-term current use of [...] locate his formulary to determine treatment options Mar,Type 2 diabetes mellitus with diabetic polyneuropathy, without long- term current use of insulin (ICD-10 - E11.42)Inspect feet daily for cuts and calluses.Recommend diabetic shoes and inserts to prevent callus formation.Fall precautions. Mar,astroesophageal reflux disease with esophagitis without hemorrhage (ICD-10 - K21.00)Diet instructions: Smaller portions, avoid eating and laying flat, avoid eating or drinking prior to bedtime. Weight loss. Mar,AD (generalized anxiety disorder) (ICD-10 - F41.1)Healthy diet and exercise, keep active. No change in medical therapy Intolerant to multiple SSRI and SNRI Mar,Lumbosacral spondylosis (ICD-10 - M47.817)The patient is instructed to avoid bending, twisting or lifting. They are to use intermittent heat and ice as needed. They may schedule a massage or gentle manipulation. They may safely use Tylenol as needed. Mar,Shortness of breath (ICD-10 - R06.02)Intermittent and not associated w/ activity. Resolves w/ treatment. Mar,Overweight (ICD-10 - E66.3)This patient has been instructed on a low-fat, high-fiber diet. They are instructed to reduce calories, portion sizes and snacks. It is recommended that they exercise for 30 minutes, 3-5 times weekly. [facility] Other 07-13-2023 Evaluation note* Encounter Date Diagnosis Assessment Notes Treatment Notes Treatment Clinical Notes Dec, Type 2 diabetes berta itus with hyperglycemia, without long-term current use of insulin (ICD-10 - E11.65) [facility] Other 07-12-2023 Evaluation note* Encounter Date Diagnosis Assessment Notes Treatment Notes Treatment Clinical Notes Dec, Type 2 diabetes berta itus with hyperglycemia, without long-term current use of [...] eye exam and Foot exam Recheck A1C Dec,astroesophageal reflux disease with esophagitis without hemorrhage (ICD-10 - K21.00)Diet instructions: Smaller portions, avoid eating and laying flat, avoid eating or drinking prior to bedtime. Weight loss. Dec,AD (generalized anxiety disorder) (ICD-10 - F41.1)Healthy diet, exercise and weight loss Dec,Lumbosacral spondylosis (ICD-10 - M47.817)The patient is instructed to avoid bending, twisting or lifting. They are to use intermittent heat and ice as needed. They may schedule a massage or gentle manipulation. They may safely use Tylenol as needed. Dec,VC (premature ventricular contraction) (ICD-10 - I49.3)Avoid stimulants, hydrate and no medication changes [facility] Other 06-26-2023 Evaluation note* Encounter Date Diagnosis Assessment Notes Treatment Notes Treatment Clinical Notes Nov, Acute bronchitis due to other sp ecified organisms (ICD-10 - J20.8) Instructed to use Robitussin or Mucinex for cough, saline or Flonase NS for congestion, Tylenol forpain and fever. Nov,Type 2 diabetes mellitus with hyperglycemia, without long-term current use of insulin (ICD-10 - E11.65)BS may increase during times of infection. Monitor for now. Push fluids [facility] Other 06-17-2023 Evaluation note* Encounter Date Diagnosis Assessment Notes Treatment Notes Treatment Clinical Notes Nov, Acute non-recurrent maxillary si nusitis (ICD-10 - J01.00) Given duration of symptoms, will treat for sinusitis with Augmentin. Finish entire course. Probiotic supplement encouraged. May use Capmist DM Rx for symptomatic treatment. May use Tylenol/ibuprofen for any pain or fever. Follow- up with PCP if symptoms or not gradually improving over the next 5 to 7 days, sooner if significantly worsening. [facility] Other 05-01-2023 Evaluation note* Encounter Date Diagnosis Assessment Notes Treatment Notes Treatment Clinical Notes October, Type 2 diabetes berta itus with hyperglycemia, without long-term current use of [...] to evening meal - goal A1C< 7% October,VC (premature ventricular contraction) (ICD-10 - I49.3)Benign ventricular ectopy on Holter. - discussed results w/ patient - avoid stimulants, hydrate Resolved w/ stopping Actos October,astroesophageal reflux disease with esophagitis without hemorrhage (ICD-10 - K21.00)Improved w/ diet changes and resumption of PPI on occasions. Reiterated dietary guidelines and avoid lying flat after eating. Weight loss October,AD (generalized anxiety disorder) (ICD-10 - F41.1)Stable Continues on Xanax 2-3x daily Intolerant to SSRI, SNRI and Trazadone October,Lumbar degenerative disc disease (ICD-10 - M51.36)The patient is instructed to avoid bending, twisting or lifting. They are to use intermittent heat and ice as needed. They may schedule a massage or gentle manipulation. They may safely use Tylenol as needed. [facility] Other 03-13-2023 Evaluation note* Encounter Date Diagnosis Assessment Notes Treatment Notes Treatment Clinical Notes Aug, Type 2 diabetes berta itus with hyperglycemia, without long-term current use of insulin (ICD-10 - E11.65) [facility] Other 03-10-2023 Evaluation note* Encounter Date Diagnosis Assessment Notes Treatment Notes Treatment Clinical Notes Aug, Type 2 diabetes berta itus with hyperglycemia, without long-term current use of insulin (ICD-10 - E11.65) Aug,nemia, unspecified type (ICD-10 - D64.9) [facility] Other 03-09-2023 Evaluation note* Encounter Date Diagnosis Assessment Notes Treatment Notes Treatment Clinical Notes Aug, Type 2 diabetes berta itus with hyperglycemia, without long-term current use of insulin (ICD-10 - E11.65) [facility] Other 03-08-2023 Evaluation note* Encounter Date Diagnosis Assessment Notes Treatment Notes Treatment Clinical Notes Aug, Type 2 diabetes berta itus with hyperglycemia, without long-term current use of insulin (ICD-10 - E11.65) [facility] Other 02-27-2023 Evaluation note* Encounter Date Diagnosis Assessment Notes Treatment Notes Treatment Clinical Notes Jul, Type 2 diabetes berta itus with hyperglycemia, without long-term current use of [...] which are reviewed at the office visit. Jul,AD (generalized anxiety disorder) (ICD-10 - F41.1)Healthy diet, exercise, keep active Jul,astroesophageal reflux disease with esophagitis without hemorrhage (ICD-10 - K21.00)Diet instructions: Smaller portions, avoid eating and laying flat, avoid eating or drinking prior to bedtime. Weight loss. Jul,VC (premature ventricular contraction) (ICD-10 - I49.3)Avoid stimulants, hydrate, exercise Jul,Fluttering heart (ICD-10 - I49.8) Jul,Muscle cramp, nocturnal (ICD-10 - R25.2)Reassure, check K, Ca [facility] Other 05-31-2022 Hospital Discharge instructions Patient Education 11/09/2021 09:45:52 Kidney Stones, Jsvr-kr-Gvci Kidney Stones Kidney stones are rock-like masses [...] Follow these instructions at home: Medicines Take vwfi-glv-vyttcyr and prescription medicines only as told by [...] 11/14/2008 Document Revised: 10/15/2019 Document Reviewed: 10/15/2019 [employer] Patient Education 2019 [employer]. Follow Up Care 04/01/2021 14:51:08 With:Elan Peterson MD, Lino Goodson, URO Address: [facility] [address], [place] [address]- When:05/12/2022 Comments:w/nancy [facility] 07-21-2021 Hospital Progress notePatient: RIC BERRY Age: 60 years Sex: Male : 1960 Associated Diagnoses: None Author: Marco Alvarado MD Assessment Assessment Diagnosis: Osteoarthritis of left hip ([id number]-RM M16.12, Working, Medical). Plan A medical consult [...] Respiration: 10 (12/30 11:) BP: 123/70 (12/30 10:25) Pulse Ox: 100 (12/30 10:) Oxygen Delivery: [...] Report for More Detail Diagnosis Documentation [facility]07-21-2021 Anesthesiology Preoperative evaluation and management notePatient: RIC BERRY Age: 60 years Sex: [...] 10:44:27 by Mart BAUM , Chelsey R Home Medications: cyanocobalamin = [...] thou/mcL 12/16/20 10:32, Lymphocyt (more content not included)...[facility] No data available for this section [facility] evaluation noteNo mobifriendsRefugio RVX Other Evaluation note* Diagnosis Ureteral calculus- Primary Calculus of ureter Renal calculus Calculus of kidney documented in this encounter [facility] note* Diagnosis Onset Date Resolution Status SHAYLA (generalized anxiety disorder) acuteGastroesophageal reflux disease with esophagitis without hemorrhageacute Lumbosacral spondylosisacuteObesityacuteRotator cuff tearacuteType 2 diabetes mellitus with hyperglycemiaacuteGAD (generalized anxiety disorder)acuteObesity acuteType 2 diabetes mellitus with hyperglycemiaacute [facility] Work Phone: evaluation note* Diagnosis Onset Date Resolution Status Type 2 diabetes mellitus with hyperglyce clarence acute [facility] Work Phone: evaluation note* Diagnosis Onset Date Resolution Status Facial pain acuteGAD (generalized anxiety disorder)acuteHeadacheacuteOverweightacuteTingling of right upper extremityacuteType 2 diabetes mellitus with hyperglycemiaacute TIA (transient ischemic attack)noneactiveGAD (generalized anxiety disorder)acute HeadacheacuteType 2 diabetes mellitus with hyperglycemiaacute [facility] Work Phone: evaluation note* Diagnosis Ureteral calculus Calculus of ureter Renal calculus Calculus of kidney documented in this encounter [facility] note* Diagnosis Onset Date Resolution Status Admit Date SHAYLA (generalized anxiety disorder) acuteApril 2024 2:25pmGastroesophageal reflux disease with esophagitis without hemorrhageacuteApril 2024 2:25pmLumbosacral spondylosisacuteApril 2024 2:25pmObesityacuteApril 2024 2:25pmScreening PSA (prostate specific antigen)acuteApril 2024 2:25pmType 2 diabetes mellitus with hyperglycemiaacuteApril 2024 2:25pmWellness examinationacuteApril 2024 2:25pmScreening for colon cancernoneactiveApril 2024 2:25pm [facility] Work Phone: evaluation note* Diagnosis Renal colic Ureteral calculus- Primary Calculus of ureter Ureteral calculus Calculus of ureter documented in this encounter [facility] note* Diagnosis Renal colic Ureteral calculus- Primary Calculus of ureter Ureteral calculus Calculus of ureter documented in this encounter [facility] note* Diagnosis Ureteral calculus- Primary Calculus of ureter Ureteral calculus Calculus of ureter Ureteral calculus Calculus of ureter documented in this encounter [facility] general Narrative - Reported* Type Description Date Medical History Anxiety Medical Historydiabetes mallitusMedical Historyleft hip painSurgical History kidney stoneHospitalization Historysee [facility] Other History general Narrative - Reported* Type Description Date Medical History Anxiety Medical Historydiabetes mallitusMedical Historyleft hip painSurgical History kidney stoneSurgical HistoryLeft hip replacementHospitalization Historysee above [facility] Other Progress note No data available for this section [facility] Reason for referral (narrative)* Reason Referral for rotator cuff tear Diagnosis 1 Acute pain of left s houlder (M25.512) Diagnosis 2 Nontraumatic incompl ete tear of rotator cuff, unspecified laterality (M75.110) Referral Organization [facility] farzana Referring Provider First Name Christopher Referring Provider Last Name Bryce Referring Provider Specialty Internal Me dicine Referred Organization [facility] Referred Provider Alfredo Vazquez Referred Address [address] [place], [place],[address] Referred Provider Specialty Orthopedic S urgery Referral Priority Routine General Notes Mr. Berry is being re ferred for further evaluation and treatment of a rotator cuff tear. Clinical Notes MRI completed [facility] [employer] Other Reason for referral (narrative)No reason for referral information availableKind[facility] Work Phone: [employer] for visit Narrative* Imaging (Emergency) - ClosedSpecialtyDiagnoses / ProceduresReferred By ContactReferred To Contact Radiology Diagnoses Renal colic Procedures CT ABDOMEN PELVIS WO CONTRAST Additional Contrast? None Vijay Car PA-C [address] [place] [address] Phone: tel: fax: Referral IDStatusReasonStart DateExpiration DateVisits RequestedVisits [id number]/ [facility] for visit Narrative* Imaging (Routine) - Pending ReviewSpecialtyDiagnoses / ProceduresReferred By ContactReferred To Contact Radiology Diagnoses Ureteral calculus Procedures US RENAL COMPLETE Vijay Car PA-C [address] [place] [address] Phone: tel: fax: Referral IDStatusReSheng DateExpiration DateVisits RequestedVisits [id number] Review [facility] Summary Purpose Family History Relationship Condition Age at Onset Recorded Date/T andria father Unknown Advance Directives Code StatusDate ActivatedDate InactivatedCommentsFull Code09/05/2023 8:29 AMCode StatusDate ActivatedDate InactivatedCommentsFull Code08/29/2023 10:33 AM08/29/2023 5:38 PM Advance Directive Response Recorded Date/ Time Advance Directives No July 13, 2020 5:54pm Date ActivatedDate InactivatedComments09/05/2023 8:29 AM09/05/2023 2:15 PMDate ActivatedDate InactivatedComments08/29/2023 10:33 AM08/29/2023 5:38 PM Advance Directive Response Recorded Date/ Time Advance Directives No July 13, 2020 4:54pm Date ActivatedDate InactivatedComments09/05/2023 8:29 AM09/05/2023 2:15 PMDate ActivatedDate InactivatedComments08/29/2023 10:33 AM08/29/2023 5:38 PM Procedure Findings Note Patient: RIC BERRY MRN : ([id number] Age: 60 years Sex: Male : 1960 [...] Complaint 3 MONTH CHECK UP BS check upReason for VisitGAD (generalized anxiety disorder) Gastroesophageal reflux disease with esophagitis without hemorrhage Lumbosacral spondylosis Obesity Rotator cuff tear Type 2 diabetes mellitus with hyperglycemia SHAYLA (generalized anxiety disorder) Obesity Type 2 diabetes mellitus with hyperglycemia Chief Complaint possible hemorrhoid Reason for Visit Type 2 diabetes berta itus with hyperglycemia Chief Complaint possible hemorrhoid head painReason for VisitFacial pain SHAYLA (generalized anxiety disorder) Headache Overweight [...] Visit Admit Date SHAYLA (generalized anxiety disorder) Septe mb2023 3:49pm Tachycardia March 06, 2024 3:49pm Type 2 diabetes mellitus with hyperglyce clarence March 06, 2024 3:49pm Facial pain March 06, 2024 3:49pm Headache March 06, 2024 3:49pm SHAYLA (generalized anxiety disorder) Novem 2023 2:41pm Gastroesophageal reflux dise ase with esophagitis without hemorrhage April 26, 2024 2:41pm Tachycardia April 26, 2024 2:41pm Type 2 diabetes mellitus with hyperglyce clarence April 26, 2024 2:41pm Chief Complaint Admit Date 4 month/A1C October 08, 2024 2:2 5pm Reason for Visit Admit Date SHAYLA (generalized anxiety disorder) October 08, 2024 2:25pm Gastroesophageal reflux dise ase with esophagitis without hemorrhage October 08, 2024 2:25pm Lumbosacral spondylosis October 08, 2024 2:25pm Obesity October 08, 2024 2:2 5pm Screening PSA (prostate specific antigen ) October 08, 2024 2:25pm Type 2 diabetes mellitus with hyperglyce clarence October 08, 2024 2:25pm Wellness examination October 08, 2024 2: 25pm Screening for colon cancer October 08, 2 025 2:25pm Chief Complaint Admit Date 4 month/A1C October 08, 2024 2:2 5pm pre surgical clearance October 15, 2024 2:4 0pm Reason for Visit Admit Date SHAYLA (generalized anxiety disorder) October 08, 2024 2:25pm Gastroesophageal reflux dise ase with esophagitis without hemorrhage October 08, 2024 2:25pm Lumbosacral spondylosis October 08, 2024 2:25pm Screening PSA (prostate specific antigen ) October 08, 2024 2:25pm Type 2 diabetes mellitus with hyperglyce clarence October 08, 2024 2:25pm Wellness examination October 08, 2024 2: 25pm Obesity October 08, 2024 2:2 5pm Screening for colon cancer October 08, 2 025 2:25pm SHAYLA (generalized anxiety disorder) October 152024 2:40pm Type 2 diabetes mellitus with hyperglyce clarence October 15, 2024 2:40pm Preop exam for internal medicine October 2:40pm Chief Complaint Admit Date 4 month/A1C October 08, 2024 2:2 5pm pre surgical clearance October 15, 2024 2:4 0pm arthritis neck pain December 31, 2024 3:35 pm Reason for Visit Admit Date SHAYLA (generalized anxiety disorder) October 08, 2024 2:25pm Gastroesophageal reflux dise ase with esophagitis without hemorrhage October 08, 2024 2:25pm Lumbosacral spondylosis October 08, 2024 2:25pm Screening PSA (prostate specific antigen ) October 08, 2024 2:25pm Type 2 diabetes mellitus with hyperglyce clarence October 08, 2024 2:25pm Wellness examination October 08, 2024 2: 25pm Obesity October 08, 2024 2:2 5pm Screening for colon cancer October 08, 2 025 2:25pm SHAYLA (generalized anxiety disorder) October 152024 2:40pm Hydronephrosis October 15, 2024 2:40pm Type 2 diabetes mellitus with hyperglyce clarence October 15, 2024 2:40pm Preop exam for internal medicine October 2:40pm Neck pain December 31, 2024 3:35 pm Chief Complaint Admit Date arthritis neck pain December 31, 2024 3:35 pm Anxiety January 23, 2025 9: 58am Reason for Visit Admit Date Bilateral leg pain December 31, 2024 3:35 pm SHAYLA (generalized anxiety disorder) December 31, 2024 3:35pm Gastroesophageal reflux dise ase with esophagitis without hemorrhage December 31, 2024 3:35pm Low back pain December 31, 2024 3:35 pm Lumbar spondylosis December 31, 2024 3:35 pm Type 2 diabetes mellitus with hyperglyce clarence December 31, 2024 3:35pm Obesity December 31, 2024 3:35 pm SHAYLA (generalized anxiety disorder) Augus t 2024 9:58am Lumbar spondylosis January 23, 2025 9: 58am Type 2 diabetes mellitus with hyperglyce clarence January 23, 2025 9:58am Chief Complaint Admit Date Anxiety January 23, [...] with hyperglyce clarence April 02, 2025 10:27am Additional Source Comments (unrecognized sect ion and [...] section and content) DATE CREATED AUTHOR 03/01/2021 [facility] DATE CREATED AUTHOR AUTHOR'S ORGANIZ ATION 08/24/2022 [facility] DATE CREATED AUTHOR AUTHOR'S ORGANIZ ATION 09/19/2024 [facility] [facility] DATE CREATED AUTHOR AUTHOR'S ORGANIZ ATION 09/21/2024 [facility] DATE CREATED AUTHOR AUTHOR'S ORGANIZ ATION 09/24/2024 [facility] DATE CREATED AUTHOR AUTHOR'S ORGANIZ ATION 10/20/2024 [facility] DATE CREATED AUTHOR AUTHOR'S ORGANIZ ATION 10/21/2024 [facility] DATE CREATED AUTHOR AUTHOR'S ORGANIZ ATION 01/29/2025 [facility] REASON FOR VISIT (unrecogniz ed section and content) SpecialtyDiagnoses / ProceduresReferred By ContactReferred To Contact Diagnoses Ureteral calculus Ureteral calculus [N20.1] Procedures GA CYSTO/URETERO W/LITHOTRIPSY &INDWELL STENT INSRT CYSTOSCOPY URETEROSCOPY LASER-HLL WITH POSSIBLE LEFT URETERAL STENT EXCHANGE Johnnie Hutton MD [address] [place] [address], [address] [place] [address] [facility] [address] [place] [address] Referral IDStatusReasonStart DateExpiration DateVisits RequestedVisits [id number] Scheduled Active and Recently Administ ered Medications (unrecognized section and content) Medication Order/// acetaminophen (TYLENOL) tablet 650 mg (COMPLETED) 650 mg, Oral, ONCE, 1 dose, On Mon09/05/23 at 0845, Maximum dose of acetaminophen is 4000 mg from all sources in 24 hours., Pre-op (day of surgery) * 0852 (Given - Provider: Annette Real RN) dimenhyDRINATE (DRAMAMINE) tablet 50 mg (COMPLETED) 50 mg, Oral, ONCE, 1 dose, On Mon09/05/23 at 0845, Pre-op (day of surgery) * 0852 (Given - Provider: Annette Real RN) levoFLOXacin (LEVAQUIN) 500 MG/100ML infusion 500 mg (COMPLETED) 500 mg, IntraVENous, MEDICATION RECONCILIATION TECHNICIAN TO O.R., 1 dose, On Mon09/05/23 at 0845, Antimicrobial Indications: Surgical Prophylaxis, Administer within 1 hour prior to incision., Pre-op (day of surgery) * 1005 (New Bag - Provider: Rae Saunders BAUTISTA) * 1056 (Stopped - Provider: Rissa Monroe, BAUTISTA) Medication Order// lactated ringers IV soln infusion IntraVENous, at 100 mL/hr, CONTINUOUS, Starting on Mon09/05/23 at 0845, Pre-op (day of surgery) * 0853 (New Bag - Provider: Annette Real RN) * 1006 (NoRateChange - Provider: YANELI Manuel CRNA) * 1053 (Paused - Provider: YANELI Manuel CRNA - Comment: Switch to gravity) * 1054 (Restarted - Provider: YANELI Manuel CRNA) lactated ringers IV soln infusion IntraVENous, at 125 mL/hr, CONTINUOUS, Starting on Mon09/05/23 at 1115, PACU only * 1115 (Due) Medication Order/ HYDROcodone-acetaminophen (NORCO) 5-325 MG per tablet 1 [...] PRN, Starting on Mon09/05/23 at 1025, Intra-op * 1025 (Given - Provider: Johnnie Hutton MD) naloxone 0.4 mg in 10 mL sodium chloride syringe IntraVENous, PRN, Opioid Reversal, Starting on Mon09/05/23 at 1059, PRN if respiratory rate is lessthan 6/min and patient is difficult to arouse [...] 1059, Nausea, Initial antiemetic therapy., PACU only Order Group 1: HYDROcodone-acetaminophen (NORCO) 5-325 MG [...] DO Primary Care Provider Active Team Status: Inactive Member Role Status Dates Christopher Wu DO Primary Care Provide r, Attending Provider Active Start: October 08, 2024 End: October 08, 2024 Team Status: Active Member Role Status Dates Christopher Wu DO Primary Care Provide r, Attending Provider Active Start: January 01, 2024 Team Status: Inactive Member Role Status Dates Christopher Wu DO Primary Care Provide r, Attending Provider Active Start: January 16, 2024 End: January 16, 2024Team MemberRelationshipSpecialtyStart DateEnd Date Christopher Wu [address] [place] [phone] PCP - [facility]08/23/23 Team Status: Inactive Member Role Status Dates Christopher Wu , DO Primary Care Provide r, Attending Provider Active Start: August 08, 2023 End: August 08, 2023 Team Status: Active Member Role Status Dates Christopher Wu , DO Primary Care Provide r, Attending Provider Active Start: August 20, 2023 Team Status: Active Member Role Status Dates Christopher Wu , DO Primary Care Provide r, Attending Provider Active Start: August 26, 2023 Team Status: Active Member Role Status Dates Christopher Wu , DO Primary Care Provide r, Attending Provider Active Start: August 28, 2023 Team Status: Active Member Role Status Dates Christopher Wu , DO Primary Care Provide r, Attending Provider Active Start: September 02, 2023 Team Status: Active Member Role Status Bernice Wu , DO Primary Care Provide r, Attending Provider Active Start: September 03, 2023 Team Status: Active Member Role Status Bernice Wu , DO Primary Care Provide r, Attending Provider Active Start: September 04, 2023 Team Status: Inactive Member Role Status Bernice Wu , DO Primary Care Provide r, Attending Provider Active Start: October 06, 2023 End: October 06, 2023 Team Status: Active Member Role Status Bernice Wu , DO Primary Care Provide r, Attending Provider Active Start: January 29, 2024 Team Status: Inactive Member Role Status Bernice Wu , DO Primary Care Provide r, Attending Provider Active Start: March 06, 2024 End: March 06, 2024Team MemberRelationshipSpecialtyStart DateEnd Date BryceChristopher [address] [facility] [place] [place] [address] PCP - [facility]08/23/23 Team Status: Active Member Role Status Bernice Wu DO Primary Care Provide r, Attending Provider Active Start: April 24, 2024 Team Status: Inactive Member Role Status Bernice Wu , DO Primary Care Provide r, Attending Provider Active Start: April 26, 2024 End: April 26, 2024Team MemberRelationshipSpecialtyStart DateEnd Date Christopher Wu [address] [facility] [place] [phone] PCP - GeneralInternal Medicine08/23/23Team MemberRelationshipSpecialtyStart Date End Date Christopher Wu DO [address] [facility] [place] [phone] PCP - GeneralInternal Medicine08/23/23Team MemberRelationshipSpecialtyStart Date End Date Christopher Wu [address] [facility] [place] [phone] PCP - GeneralInternal Medicine08/23/23 Team Status: Active Member Role Status Dates Christopher Wu DO Primary Care Provide r, Attending Provider Active Start: October 11, 2024 Team Status: Inactive Member Role Status Dates Christopher Wu DO Primary Care Provide r, Attending Provider Active Start: October 15, 2024 End: October 15, 2024 Team Status: Inactive Member Role Status Dates Christopher Wu DO Primary Care Provider Active Start: October 08, 2024 End: October 08melany Wu DOAttending ProviderActiveStart: October 08, 2024 End: October 08, 2024 Team Status: Active Member Role Status Dates Christopher Wu DO Primary Care Provider Active Start: October 11, 2024 Christopher Wu DOAttending ProviderActiveStart: October 11, 2024 Team Status: Inactive Member Role Status Dates Christopher Wu DO Primary Care Provider Active Start: October 15, 2024 End: October 15melany Wu DOAttending ProviderActiveStart: October 15, 2024 End: October 15, 2024 Team Status: Inactive Member Role Status Dates Christopher Wu DO Primary Care Provider Active Start: December 31, 2024 End: December 31melany Wu DOAttending ProviderActiveStart: December 31, 2024 End: December 31, 2024 Team Status: Inactive Member Role Status Dates Christopher Wu DO Primary Care Provider Active Start: January 23, 2025 End: January 23Kathy Wlilams ProviderActiveStart: January 23, 2025 End: January 23, 2025 Team Status: Active Member Role/Relationship Status Dates Christopher Wu DO Primary Care Provider Active Team Status: Inactive Member Role/Relationship Status Dates Christopher Wu , Primary Care Provider Active Start: January 23, 2025 End: January 23Kathy Willams ProviderActiveStart: January 23, 2025 End: January 23, 2025 Team Status: Inactive Member Role/Relationship Status Dates Christopher Wu DO Primary Care Provider Active Start: April 02, 2025 End: April 02Kathy Willams ProviderActiveStart: April 02, 2025 End: April 02, 2025 Goals (unrecognized section and content) Goals may [...] BE BASED ON THE PRIMARY CLINICAL RECORDS. [facility] [employer] [facility]. provides no warranty or guarantee of the accuracy or completeness of information in this document.
--- OUTSIDE RECORDS SUMMARY | 2025-04-10 07:14 | XMS_ITS | Clinical Summary ---
Author Organization [facility] Address [address] [facility] [place] [address] Phone Care Team Providers Care Yard Clerk Name Role Phone Unavailable Primary Care Provider Unavailabl e Social History Tobacco UseTypesPacks/DayYears UsedDateSmoking Tobacco: Never AssessedSex and Gender InformationValueDate RecordedSex Assigned at BirthNot on fileLegal Sex Male05/07/2022 12:07 AM ESTGender IdentityNot on fileSexual OrientationNot on file Plan of Treatment Not on file
--- OUTSIDE RECORDS SUMMARY | 2025-04-10 07:14 | XMS_ITS | Clinical Summary ---
Author Organization [facility] Address [address] [facility] [place] [address] Care Team Providers Care Railroad Track Mechanic Name Role Phone Unavailable Primary Care Provider Unavailabl e Social History Tobacco UseTypesPacks/DayYears UsedDateSmoking Tobacco: Never AssessedSex and Gender InformationValueDate RecordedSex Assigned at BirthNot on fileLegal Sex Male08/24/2022 10:14 PM EDTGender IdentityNot on fileSexual OrientationNot on file Last Filed Vital Signs Vital SignReadingTime TakenCommentsBlood Pressure--Pulse--Temperature-- Respiratory Rate--Oxygen Saturation--Inhaled Oxygen Concentration--Lgaqld89.7 kg (200 lb)06/03/2020 12:00 PM EKAVilskg912.3 cm (5' 9 )06/03/2020 12:00 PM ESTBody Mass Index29.5306/03/2020 12:00 PM EST Plan of Treatment Not on file
--- OUTSIDE RECORDS SUMMARY | 2025-04-10 07:14 | XMS_ITS | Clinical Summary ---
Author Organization [facility] Address [address], [address] [place] [address] Care Team Providers Care Bible Worker Name Role Phone Christopher Pearce DO Primary Care Provider [phone] Allergies No known active allergies Medications MedicationSigDispense [...] tablet 5Active Active Problems ProblemNoted DateDiagnosed DateUreteral /13/2024Renal calculus 08/23/2023 Social History Tobacco UseTypesPacks/DayYears UsedDateSmoking Tobacco: NeverSmokeless Tobacco: Never Tobacco Cessation:Counseling Given: No Alcohol UseStandard Drinks/WeekCommentsNot Currently0 (1 standard drink = 0.6 oz pure alcohol)Interpersonal Safety Domain Source: IP Abuse ScreeningAnswerDate RecordedRead-Only, Retired: Physical ZzoeyVcezud40/26/2024ead-Only, Retired: Verbal TcnfsNgmnvf71/26/2024ead-Only, Retired: Emotional tzerxNfsihu20/26/2024 Read-Only, Retired: Financial RbcfbRhkrai98/26/2024ead-Only, Retired: Sexual dsmvbTmumnj15/26/2024Sex and Gender InformationValueDate RecordedSex Assigned at BirthNot on fileLegal ZxgDttk2408/22/2023 9:49 AM EDTGender IdentityNot on file Sexual OrientationNot on file Last Filed Vital Signs Vital SignReadingTime TakenCommentsBlood Luianeei765/7204 10:06 AM EDT Mxzqd3467 10:06 AM KVFCbozokmpwou36.5 ??C (97.7 ??F)10/09/2024 10:06 AM EDTRespiratory Aihb041909/05/2023 11:30 AM EDTOxygen Tiafrrswrq07%10/09/2024 10:06 AM EDTInhaled Oxygen Concentration--Okppio03.3 kg (210 lb)10/11/2024 9:06 AM EDT Ulnocx881.3 cm (5' 9 )10/11/2024 9:06 AM EDTBody Mass Index31.01010/11/2024 9:06 AM EDT Plan of Treatment Health MaintenanceDue DateLast DoneCommentsDepression Enykks8408/22/1974HIV screen 1977Hepatitis C cjjuxq1708/22/1980DTaP/Tdap/Td vaccine (1 - Tdap)1981 Diabetes pkjejq0008/22/19971395Jlmuzm76/13/2390Dutduokripd08/13/2008FIT/FOBT: Average risk08/23/2007Sigmoidoscopy/CT csmgraylyzud26/13/2008Pneumococcal 50+ years Vaccine (1 of 1 - PCV)2012Shingles vaccine (1 of 2)2012Colorectal Cancer Iqplty3006/27/2024Fecal-DNA (Cologuard): Average risk501/ Flu vaccine (#1)01/10/2025OVID-19 Vaccine [...] Tapr Tip Grad Bldr Mrk Lo - [id number] Implanted:Qty: 1 [facility] 08[facility]29[facility]-WD01/26/[id number] / / [id number] Uret 6fr L26cm Hydr+ Pgtl Tapr Tip Grad Bldr Mrk Lo - [id number] Implanted:Qty: 1 on 09/05/2023 [facility] [place] [facility]-WD01/26/[id number] / / [id number] Insurance Advance Directives * Full Code (Latest Code Status on File) Date ActivatedDate InactivatedComments09/05/2023 8:29 AM09/05/2023 2:15 PM * Full Code Date ActivatedDate InactivatedComments08/29/2023 10:33 AM08/29/2023 5:38 PM Care Teams Team MemberRelationshipSpecialtyStart DateEnd Date Christopher Pearce DO [address] [place] [phone] PCP - GeneralInternal Medicine08/23/23
--- NOTE | 2025-04-10 07:16 | MR_ITS ---
The [address] [address] Patient Name: RIC SANCHEZ MRN: [id number] date: 1960 Sex: M Assigned Patient Location: [facility] Current Patient Location: [facility] Accession/Order Number: [id number] Exam Date: 04/10/2025 08:20 Report Date: 04/10/2025 15:05 At the request of: SP WU DO Procedure: MR lumbar spine wo con MRI LUMBAR SPINE WITHOUT CONTRAST CLINICAL HISTORY: Chronic low back pain, greater on the right COMPARISON: 03/31/2025 FINDINGS: Mild dextrocurvature thoracolumbar junction and mild levocurvature mid lumbar spine. Otherwise, Lumbar vertebral heights and alignment and bone marrow signal unremarkable.. Multilevel facet arthropathy greatest L4-5. Minimal multilevel disc desiccation T12-L5. Conus medullaris terminates normally at L1-L2. . Paraspinal soft tissues are unremarkable as visualized. T12-L3: Disc desiccation no significant disc disease central canal or neural foraminal narrowing identified. Slight hypertrophy left ligamentum flavum at L1-L2. L3-4: Disc desiccation with mild facet arthropathy. This causes minor foraminal narrowing. Canal is patent. L4-5: Broad-based bulge with moderate facet arthropathy. There is mild to moderate right-sided and mild left-sided neural foraminal narrowing. Canal is grossly patent. L5-S1: Disc desiccation with bbok-lt-scianhtz facet arthropathy. Canal neural foramina patent. MR/MR lumbar spine wo con IMPRESSION: Mild multilevel predominantly posterior element degeneration. No high-grade canal or neural from narrowing identified. Impression dictated by: Mian Nielson M.D. 04/10/2025 3:05 PM Dictation Location: [place] [address] Electronically authenticated by: [id number] Y Date: 04/10/2025 15:05
--- NOTE | 2025-04-10 07:24 | XR_ITS ---
The [address] [address] Patient Name: RIC SANCHEZ MRN: [id number] date: 1960 Sex: M Assigned Patient Location: RAD Current Patient Location: [facility] Accession/Order Number: [id number] Exam Date: 04/10/2025 07:26 Report Date: 04/10/2025 08:29 At the request of: SP WU DO Procedure: XR foreign body eye JONNY Orbits 2 views. Reason for exam: Pre-MRI. FINDINGS: No radiopaque foreign body is seen. No acute bony process. XR/XR foreign body eye JONNY IMPRESSION: No radiopaque foreign body. Impression dictated by: Ba Bianchi Jr., DGordonOGordon 04/10/2025 8:29 AM Dictation Location: [place] [address] Electronically authenticated by: [id number] Y Date: 04/10/2025 08:29
== END 2025-04-10 07:12 | disposition home or self-care (01) ==
LOC: RAD 07:11
PROVIDERS: PCP Internal Medicine; Visit Provider Internal Medicine
DX: M54.50 Low back pain, unspecified (principal); G89.29 Other chronic pain; M51.369 Other intervertebral disc degeneration, lumbar region without mention of lumbar back pain or lower extremity pain
CPT/HCPCS: 70030; 72148